=== PATIENT | female | born 1985 | race Caucasian/White ===

== ENCOUNTER 2017-09-29 11:18 | Emergency (ER) | payer BC, SELFPAY ==
[2017-09-29] VITALS (8 sets, daily range): BP systolic 116–143; BP diastolic 81–89; PULSE 60–83; RESP 15–16; TEMP 36.6–37; O2SAT 96–100
--- NOTE | 2017-09-29 11:36 | DI.REPORT_ITS ---
SYMPTOM/DIAGNOSIS: VAGINAL BLEEDING, PAIN PELVIC ULTRASOUND: Transabdominal and transvaginal examination was performed. The uterus measures 8.3 cm. long by 3.7 cm. AP by 6.0 cm. transverse. The endometrial stripe is within normal limits at .5 cm. No myometrial mass is present. The left ovary measures 2.8 by 1.9 by 2.1 cm. Small follicular cysts are seen. There is normal blood flow to the left ovary. No evidence of a solid renal mass or torsion is seen. The right ovary is normal in size with follicular cysts. No suspicious ovarian cyst, solid mass or torsion is present. There is normal blood flow seen. There is a right ovarian cyst present. No significant free fluid is seen in the pelvis. No evidence of hydronephrosis is identified. The kidneys are normal in size. No solid renal mass is present. IMPRESSION: Right ovarian cyst. Otherwise negative examination.
--- NOTE | 2017-09-29 11:39 | ED.GENADUL ---
Disposition Clinical Impression: Vaginal bleeding, Pelvic inflammatory disease Disposition: HOME Condition: Good Instructions: Pelvic Inflammatory Disease (ED) Additional Instructions: Please follow-up with gynecology at [facility] in 5-7 days for recheck. Follow-up with gastroenterology at [facility] as planned. You did not have evidence of persistent , but may have miscarried based on the 2 episodes of vaginal bleeding this month. We will treat you for pelvic infection. Please take antibiotics as prescribed. Return to the emergency department for any acute concerns. I recommend you begin Zantac 150 mg once or twice daily as needed for persistent abdominal discomfort. Prescriptions: Doxycycline [Vibramycin] 100 mg PO BID #20 cap Medical Decision Making - Lab Data Laboratory Results - last 24 hr 09/29/17 09/29/17 09/29/17 11:38 11:40 11:55 WBC RBC Hgb Hct MCV MCH MCHC RDW Plt Count MPV Immature Gran % Neutrophils % Lymphocytes % Monocytes % Eosinophils % Basophils % Absolute Neutrophils Absolute Lymphocytes Absolute Monocytes Absolute Eosinophils Absolute Basophils Sodium Cancelled 133 L Potassium Cancelled 3.7 Chloride Cancelled 100 Carbon Dioxide Cancelled 25.5 Anion Gap Cancelled 7.5 BUN Cancelled 12 Creatinine Cancelled 0.97 Estimated GFR/1.73 m2 Cancelled >= 60.00 Glucose Cancelled 116 H Calcium Cancelled 8.8 Total Bilirubin Cancelled 1.2 H AST Cancelled 40 H ALT Cancelled 65 Alkaline Phosphatase Cancelled 95 Total Protein Cancelled 8.0 Albumin Cancelled 4.0 Lipase Cancelled 101 Beta HCG, Quant < 1 L Urine Color Urine Clarity Urine pH Ur Specific [place] Urine Protein Urine Ketones Urine Blood Urine Nitrite Urine Bilirubin Urine Urobilinogen Ur Leukocyte Esterase Urine RBC Urine WBC Ur Epithelial Cells Urine Crystals Urine Bacteria Urine Casts Urine Mucus Urine Other Ur Culture Indicated? Urine Glucose Ethyl Alcohol < 3.0 Ur Chlamydia DNA Probe Chlamydia/GC DNA Source Urine GC DNA Probe Patient ABO/Rh 09/29/17 09/29/17 09/29/17 11:55 11:55 12:18 WBC 9.56 RBC 4.72 Hgb 14.9 Hct 43.2 MCV 91.5 MCH 31.6 MCHC 34.5 RDW 13.6 Plt Count 232 MPV 10.6 Immature Gran % 0.2 Neutrophils % 64.3 Lymphocytes % 25.8 Monocytes % 9.0 Eosinophils % 0.2 Basophils % 0.5 Absolute Neutrophils 6.14 Absolute Lymphocytes 2.47 Absolute Monocytes 0.86 H Absolute Eosinophils 0.02 Absolute Basophils 0.05 Sodium Potassium Chloride Carbon Dioxide Anion Gap BUN Creatinine Estimated GFR/1.73 m2 Glucose Calcium Total Bilirubin AST ALT Alkaline Phosphatase Total Protein Albumin Lipase Beta HCG, Quant Urine Color Urine Clarity Urine pH Ur Specific [place] Urine Protein Urine Ketones Urine Blood Urine Nitrite Urine Bilirubin Urine Urobilinogen Ur Leukocyte Esterase Urine RBC Urine WBC Ur Epithelial Cells Urine Crystals Urine Bacteria Urine Casts Urine Mucus Urine Other Ur Culture Indicated? Urine Glucose Ethyl Alcohol Ur Chlamydia DNA Probe Cancelled Chlamydia/GC DNA Source Cancelled Urine GC DNA Probe Cancelled Patient ABO/Rh A Positive 09/29/17 12:50 WBC RBC Hgb Hct MCV MCH MCHC RDW Plt Count MPV Immature Gran % Neutrophils % Lymphocytes % Monocytes % Eosinophils % Basophils % Absolute Neutrophils Absolute Lymphocytes Absolute Monocytes Absolute Eosinophils Absolute Basophils Sodium Potassium Chloride Carbon Dioxide Anion Gap BUN Creatinine Estimated GFR/1.73 m2 Glucose Calcium Total Bilirubin AST ALT Alkaline Phosphatase Total Protein Albumin Lipase Beta HCG, Quant Urine Color Yellow Urine Clarity Clear Urine pH 7.0 Ur Specific [place] 1.015 Urine Protein Negative Urine Ketones Negative Urine Blood Moderate H Urine Nitrite Negative Urine Bilirubin Negative Urine Urobilinogen 0.2 Ur Leukocyte Esterase Small H Urine RBC 0-2 Urine WBC 3-5 Ur Epithelial Cells Moderate Urine Crystals Negative Urine Bacteria Few Urine Casts Negative Urine Mucus Negative Urine Other Moderate trichomonas Ur Culture Indicated? No Urine Glucose Negative Ethyl Alcohol Ur Chlamydia DNA Probe Chlamydia/GC DNA Source Urine GC DNA Probe Patient ABO/Rh Results reviewed for labs ordered during visit: Yes - Radiology Data Radiology results: report reviewed, image reviewed - Medical Decision Making 32-year-old female presents with vaginal bleeding with associated abdominal pain. She has history of polysubstance abuse including recent use of crack cocaine, no current IV use. She states that she had a positive test 2 months ago, profuse vaginal bleeding 2 weeks ago for 2 days that resolved, now with dyspareunia, abdominal pain, recurrent vaginal bleeding. She is afebrile with normal pulse and blood pressure. Exam reveals dark blood in vaginal vault, tenderness in the right adnexa. There is diagnosis includes miscarriage, ectopic , PID, endometritis. Patient had IV access established, referred for laboratory testing and pelvic ultrasound. Sodium 133, potassium 3.7, chloride 100, bicarb 25, BUN 12, creatinine 0.9, AST 40, ALT 65, lipase 101, white blood cell count 9, hematocrit 43, platelets 232. Beta hCG less than 1. Blood type A+. Ultrasound with a left ovarian cyst, otherwise unremarkable. Patient's pain improved following Protonix and Toradol. Discussed case with on-call obstetrics, Dr. Holland. He agrees with completed is most likely diagnosis. 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 I do feel she has a component of gastritis, have her begin [id number] Zantac to be used as needed. Discussed home management as well as follow-up and return precautions with the patient prior to discharge. 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 Now presents with severe, sharp, nonradiating anterior abdominal pain last night was associated with profuse recurrent vaginal bleeding this morning. She will relate that she has plans for outpatient colonoscopy at [facility] for question of IBD. She has not had any recent rectal bleeding. No recent fever. She denies trauma. She states that she has continued continue to use crack cocaine, marijuana, alcohol, as well as continuing her prescribed buprenorphine. She reports dyspareunia and foul-smelling vaginal discharge over weeks time as well. - Related Data Levothyroxine [Levothroid] 75 mcg PO DAILY #90 tab-cap 09/27/15 Albuterol [Proair Hfa] 2 puff IH PRN PRN 02/11/16 Buprenorphine HCl/Naloxone HCl [Suboxone 12 mg-3 mg Sl Film] 16 mg SL DAILY 07/24/17 Polyethylene Glycol 3350 [Miralax] 17 g PO PRN #255 gm 08/23/17 Doxycycline [Vibramycin] 100 mg PO BID #20 cap 09/29/17 Allergies Allergy/AdvReac Type Severity Reaction Status Date / Time bupropion HCl Allergy Mild unknown Unverified 09/29/17 11:33 [From Wellbutrin] duloxetine HCl Allergy Mild unknown Unverified 09/29/17 11:33 [From Cymbalta] phenolphthalein [From Ex-Lax] Allergy Unknown SEIZURES Unverified 09/29/17 11:33 [email or web address] tartrate Allergy seizure Unverified 09/29/17 11:33 [From Chantix] ukn antidepression med Allergy Uncoded 09/29/17 11:33 Review of Systems Other: 8 systems reviewed, otherwise negative Past Medical History - Past Medical History Medical history: asthma, GERD Hypothyroidism, hepatitis C, Hodgkin's disease Surgical history: non-contributory - Social History Alcohol use: occasionally Drug use: other (Previous use of heroin and cocaine) General Exam - General Limitations: no limitations General appearance: alert, in no apparent distress - Head Head exam: Present: atraumatic, normocephalic - Eye Eye exam: Present: PERRL, EOMI - ENT ENT exam: Present: normal exam - Respiratory Respiratory exam: Present: normal lung sounds bilaterally. Absent: respiratory distress - Cardiovascular Cardiovascular Exam: Present: regular rate, normal rhythm - GI/Abdominal GI/Abdominal exam: Present: soft, tenderness. Absent: guarding, rebound - By manual exam: Present: adnexal tenderness, other (Dark blood in vaginal vault, unable to visualize cervix, on bimanual exam there is significant right adnexal tenderness.) - Extremities Exam Extremities exam: Present: normal inspection, full ROM, normal capillary refill - Back Exam Back exam: Present: normal inspection - Neurological Exam Neurological exam: Present: alert, oriented X3 - Psychiatric Psychiatric exam: Present: normal affect, normal mood - Skin Skin exam: Present: warm, dry, intact Course Vital Signs - 24 hr 09/29/17 11:23 Temperature 36.6 C Pulse 83 Respiratory 15 Rate Blood Pressure 143/89 Pulse Oximetry 98
--- NOTE | 2017-09-29 11:42 | ED.GENADUL_ITS ---
Disposition Clinical Impression: Vaginal bleeding, Pelvic inflammatory disease Disposition: HOME Condition: Good Instructions: Pelvic Inflammatory Disease (ED) Additional Instructions: Please follow-up with gynecology at [facility] in 5-7 days for recheck. Follow- up with gastroenterology at [facility] as planned. You did not have evidence of persistent , but may have miscarried based on the 2 episodes of vaginal bleeding this month. We will treat you for pelvic infection. Please take antibiotics as prescribed. Return to the emergency department for any acute concerns. I recommend you begin Zantac 150 mg once or twice daily as needed for persistent abdominal discomfort. Prescriptions: Doxycycline [Vibramycin] 100 mg PO BID #20 cap Medical Decision Making - Lab Data Laboratory Results - last 24 hr 09/29/17 09/29/17 09/29/17 11:38 11:40 11:55 WBC RBC Hgb Hct MCV MCH MCHC RDW Plt Count MPV Immature Gran % Neutrophils % Lymphocytes % Monocytes % Eosinophils % Basophils % Absolute Neutrophils Absolute Lymphocytes Absolute Monocytes Absolute Eosinophils Absolute Basophils Sodium Cancelled 133 L Potassium Cancelled 3.7 Chloride Cancelled 100 Carbon Dioxide Cancelled 25.5 Anion Gap Cancelled 7.5 BUN Cancelled 12 Creatinine Cancelled 0.97 Estimated GFR/1.73 m2 Cancelled >= 60.00 Glucose Cancelled 116 H Calcium Cancelled 8.8 Total Bilirubin Cancelled 1.2 H AST Cancelled 40 H ALT Cancelled 65 Alkaline Phosphatase Cancelled 95 Total Protein Cancelled 8.0 Albumin Cancelled 4.0 Lipase Cancelled 101 Beta HCG, Quant < 1 L Urine Color Urine Clarity Urine pH Ur Specific [place] Urine Protein Urine Ketones Urine Blood Urine Nitrite Urine Bilirubin Urine Urobilinogen Ur Leukocyte Esterase Urine RBC Urine WBC Ur Epithelial Cells Urine Crystals Urine Bacteria Urine Casts Urine Mucus Urine Other Ur Culture Indicated? Urine Glucose Ethyl Alcohol < 3.0 Ur Chlamydia DNA Probe Chlamydia/GC DNA Source Urine GC DNA Probe Patient ABO/Rh 09/29/17 09/29/17 09/29/17 11:55 11:55 12:18 WBC 9.56 RBC 4.72 Hgb 14.9 Hct 43.2 MCV 91.5 MCH 31.6 MCHC 34.5 RDW 13.6 Plt Count 232 MPV 10.6 Immature Gran % 0.2 Neutrophils % 64.3 Lymphocytes % 25.8 Monocytes % 9.0 Eosinophils % 0.2 Basophils % 0.5 Absolute Neutrophils 6.14 Absolute Lymphocytes 2.47 Absolute Monocytes 0.86 H Absolute Eosinophils 0.02 Absolute Basophils 0.05 Sodium Potassium Chloride Carbon Dioxide Anion Gap BUN Creatinine Estimated GFR/1.73 m2 Glucose Calcium Total Bilirubin AST ALT Alkaline Phosphatase Total Protein Albumin Lipase Beta HCG, Quant Urine Color Urine Clarity Urine pH Ur Specific [place] Urine Protein Urine Ketones Urine Blood Urine Nitrite Urine Bilirubin Urine Urobilinogen Ur Leukocyte Esterase Urine RBC Urine WBC Ur Epithelial Cells Urine Crystals Urine Bacteria Urine Casts Urine Mucus Urine Other Ur Culture Indicated? Urine Glucose Ethyl Alcohol Ur Chlamydia DNA Probe Cancelled Chlamydia/GC DNA Source Cancelled Urine GC DNA Probe Cancelled Patient ABO/Rh A Positive 09/29/17 12:50 WBC RBC Hgb Hct MCV MCH MCHC RDW Plt Count MPV Immature Gran % Neutrophils % Lymphocytes % Monocytes % Eosinophils % Basophils % Absolute Neutrophils Absolute Lymphocytes Absolute Monocytes Absolute Eosinophils Absolute Basophils Sodium Potassium Chloride Carbon Dioxide Anion Gap BUN Creatinine Estimated GFR/1.73 m2 Glucose Calcium Total Bilirubin AST ALT Alkaline Phosphatase Total Protein Albumin Lipase Beta HCG, Quant Urine Color Yellow Urine Clarity Clear Urine pH 7.0 Ur Specific [place] 1.015 Urine Protein Negative Urine Ketones Negative Urine Blood Moderate H Urine Nitrite Negative Urine Bilirubin Negative Urine Urobilinogen 0.2 Ur Leukocyte Esterase Small H Urine RBC 0-2 Urine WBC 3-5 Ur Epithelial Cells Moderate Urine Crystals Negative Urine Bacteria Few Urine Casts Negative Urine Mucus Negative Urine Other Moderate trichomonas Ur Culture Indicated? No Urine Glucose Negative Ethyl Alcohol Ur Chlamydia DNA Probe Chlamydia/GC DNA Source Urine GC DNA Probe Patient ABO/Rh Results reviewed for labs ordered during visit: Yes - Radiology Data Radiology results: report reviewed, image reviewed - Medical Decision Making 32-year-old female presents with vaginal bleeding with associated abdominal pain. She has history of polysubstance abuse including recent use of crack cocaine, no current IV use. She states that she had a positive test 2 months ago, profuse vaginal bleeding 2 weeks ago for 2 days that resolved, now with dyspareunia, abdominal pain, recurrent vaginal bleeding. She is afebrile with normal pulse and blood pressure. Exam reveals dark blood in vaginal vault, tenderness in the right adnexa. There is diagnosis includes miscarriage, ectopic , PID, endometritis. Patient had IV access established, referred for laboratory testing and pelvic ultrasound. Sodium 133, potassium 3.7, chloride 100, bicarb 25, BUN 12, creatinine 0.9, AST 40, ALT 65, lipase 101, white blood cell count 9, hematocrit 43, platelets 232. Beta hCG less than 1. Blood type A+. Ultrasound with a left ovarian cyst, otherwise unremarkable. Patient's pain improved following Protonix and Toradol. Discussed case with on-call obstetrics, Dr. Holland. He agrees with completed is most likely diagnosis. 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 I do feel she has a component of gastritis, have her begin [id number] Zantac to be used as needed. Discussed home management as well as follow-up and return precautions with the patient prior to discharge. 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 Now presents with severe, sharp, nonradiating anterior abdominal pain last night was associated with profuse recurrent vaginal bleeding this morning. She will relate that she has plans for outpatient colonoscopy at [facility] for question of IBD. She has not had any recent rectal bleeding. No recent fever. She denies trauma. She states that she has continued continue to use crack cocaine, marijuana, alcohol, as well as continuing her prescribed buprenorphine. She reports dyspareunia and foul-smelling vaginal discharge over weeks time as well. - Related Data Levothyroxine [Levothroid] 75 mcg PO DAILY #90 tab-cap 09/27/15 Albuterol [Proair Hfa] 2 puff IH PRN PRN 02/11/16 Buprenorphine HCl/Naloxone HCl [Suboxone 12 mg-3 mg Sl Film] 16 mg SL DAILY Polyethylene Glycol 3350 [Miralax] 17 g PO PRN #255 gm 08/23/17 Doxycycline [Vibramycin] 100 mg PO BID #20 cap 09/29/17 Allergies Allergy/AdvReac Type Severity Reaction Status Date / Time bupropion HCl Allergy Mild unknown Unverified 09/29/17 11:33 [From Wellbutrin] duloxetine HCl Allergy Mild unknown Unverified 09/29/17 11:33 [From Cymbalta] phenolphthalein [From Ex-Lax] Allergy Unknown SEIZURES Unverified 09/29/17 11:33 varenicline tartrate Allergy seizure Unverified 09/29/17 11:33 [From Chantix] ukn antidepression med Allergy Uncoded 09/29/17 11:33 Review of Systems Other: 8 systems reviewed, otherwise negative Past Medical History - Past Medical History Medical history: asthma, GERD Hypothyroidism, hepatitis C, Hodgkin's disease Surgical history: non-contributory - Social History Alcohol use: occasionally Drug use: other (Previous use of heroin and cocaine) General Exam - General Limitations: no limitations General appearance: alert, in no apparent distress - Head Head exam: Present: atraumatic, normocephalic - Eye Eye exam: Present: PERRL, EOMI - ENT ENT exam: Present: normal exam - Respiratory Respiratory exam: Present: normal lung sounds bilaterally. Absent: respiratory distress - Cardiovascular Cardiovascular Exam: Present: regular rate, normal rhythm - GI/Abdominal GI/Abdominal exam: Present: soft, tenderness. Absent: guarding, rebound - By manual exam: Present: adnexal tenderness, other (Dark blood in vaginal vault , unable to visualize cervix, on bimanual exam there is significant right adnexal tenderness.) - Extremities Exam Extremities exam: Present: normal inspection, full ROM, normal capillary refill - Back Exam Back exam: Present: normal inspection - Neurological Exam Neurological exam: Present: alert, oriented X3 - Psychiatric Psychiatric exam: Present: normal affect, normal mood - Skin Skin exam: Present: warm, dry, intact Course Vital Signs - 24 hr 09/29/17 11:23 Temperature 36.6 C Pulse 83 Respiratory 15 Rate Blood Pressure 143/89 Pulse Oximetry 98
[2017-09-29 12:12] LABS: Abs Immature Grans 0.02 k/cumm (0.0-0.09); Absolute Basophil Count 0.05 k/cumm (0.0-0.2); Absolute Eosinophil Count 0.02 k/cumm (0.0-0.7); Absolute Lymphocyte Count 2.47 k/cumm (1.2-3.4); Absolute Monocyte Count 0.86 k/cumm (0.11-0.7); Absolute Neutrophil Count 6.14 k/cumm (1.2-6.7); Basophils % 0.5; Eosinophils % 0.2; HCT 43.2 % (36.0-46.0); HGB 14.9 g/dL (12.0-15.5); Immature Grans % 0.2; Lymphocytes % 25.8; Mean Corp. HGB Concentration 34.5 g/dL (32.0-36.0); Mean Corpuscular Hemoglobin 31.6 pg (27.0-33.0); Mean Corpuscular Volume 91.5 fL (80-95); Mean Platelet Volume 10.6 fL (8.0-11.0); Neutrophils % 64.3; Platelet Count 232 x1000/uL (130-400); RBC 4.72 m/cumm (4.00-5.20); RBC Distribution Width 13.6 % (11.7-14.6); White Blood Cell Count 9.56 k/cumm (4.4-10.8)
[2017-09-29] MEDS: Pantoprazole 40 MG VIAL IVP (12:25)
[2017-09-29] MEDS: Normal Saline 1,000 ML 1000 ML IV (12:25)
[2017-09-29 12:31] LABS: ALT 65 U/L (12-78); AST 40 U/L (15-37); Alkaline Phosphatase 95 U/L (46-116); Anion Gap 7.5 mmol/L (3-11); BUN 12 mg/dL (7-18); Bilirubin, Total 1.2 mg/dL (0.2-1.0); CO2 25.5 mmol/L (21.0-32.0); CREATININE 0.97 mg/dL (0.55-1.02); Calcium 8.8 mg/dL (8.5-10.1); Chloride 100 mmol/L (98-107); Glucose 116 mg/dL (70-100); Lipase 101 U/L (73-393); Potassium 3.7 mmol/L (3.5-5.1); Sodium 133 mmol/L (136-145)
[2017-09-29 12:45] LABS: ETHANOL BLOOD < 3.0 mg/dL (<3)
[2017-09-29 12:55] LABS: HCG Quant, Pregnancy < 1 mIU/mL (1-3)
[2017-09-29 13:10] LABS: Bilirubin Negative (Negative); Blood Moderate (Negative); Clarity Clear; Glucose Negative (Negative); Ketones Negative (Negative); Leukocyte Esterase Small (Negative); Nitrite Negative (Negative); Specific Gravity 1.015 (1.005-1.025); Urobilinogen 0.2 EU/dL (Up TO 0.2)
[2017-09-29 13:20] LABS: Epithelial Cells Moderate HPF (Negative); RBC 0-2 (0-2)
[2017-09-29 13:21] LABS: Bacteria Few HPF (Negative); C & S Indicated? No; Casts Negative LPF (Negative); Crystals Negative HPF (Negative); Mucus Negative (Negative)
[2017-09-29 13:29] LABS: *AMPHETAMINES SCREEN URINE Negative (Negative); *BARBITURATES SCREEN URINE Negative (Negative); *BENZODIAZEPINES SCREEN URINE Negative (Negative); Cannabinoids THC POSITIVE (Negative); Cocaine Screen,Urine POSITIVE (Negative); METHADONE URINE SCREEN Negative (Negative); OPIATES URINE SCREEN Negative (Negative)
[2017-09-29 13:30] LABS: Tricyclic Antidepressants Negative (Negative)
[2017-09-29] MEDS: Doxycycline Hyclate 100 MG CAP PO (13:34)
--- NOTE | 2017-09-29 13:36 | DI.VRAD_ITS ---
EXAM: US Pelvis Complete, Transabdominal CLINICAL HISTORY: 32 years old, female; Pain; Other: Bleeding 2 months status post last menstrual period TECHNIQUE: Real-time transabdominal pelvic ultrasound (complete) with image documentation. COMPARISON: No relevant prior studies available. FINDINGS: Uterus/cervix: Uterus measures 6.7 x 3.9 x 5.1 cm. Endometrial stripe 10 mm. No myometrial mass. Right ovary: Right ovary measures 2.2 x 8.7 x 2.9 cm with an approximate 3 cm cyst. Normal blood flow. Left ovary: Left ovary measures 2.8 x 1.7 x 2.8 cm. Normal blood flow. Free fluid: No significant free fluid. IMPRESSION: Right ovarian cyst. No specific etiology identified for the patient's symptoms. EXAM: US Pelvis, Transvaginal CLINICAL HISTORY: 32 years old, female; Pain; Other: Bleeding 2 months status post last menstrual period TECHNIQUE: Real-time transvaginal pelvic ultrasound (complete) with image documentation. Transvaginal imaging was used for better evaluation of the endometrium and adnexa. COMPARISON: No relevant prior studies available. FINDINGS: Uterus/cervix: Uterus measures 6.7 x 3.9 x 5.1 cm. Endometrial stripe 10 mm. No myometrial mass. Right ovary: Right ovary measures 2.2 x 8.7 x 2.9 cm with an approximate 3 cm cyst. Normal blood flow. Left ovary: Left ovary measures 2.8 x 1.7 x 2.8 cm. Normal blood flow. Free fluid: No significant free fluid. IMPRESSION: Right ovarian cyst. No specific etiology identified for the patient's symptoms. EXAM: US Retroperitoneal , Renal CLINICAL HISTORY: 32 years old, female; Pain; Other: Bleeding 2 months status post last menstrual period TECHNIQUE: Real-time ultrasound of the kidneys with image documentation. COMPARISON: US - PELVIS TRANSVAG 04/09/2013 7:39 PM FINDINGS: Right kidney measures 10 x 5.7 x 6.1 cm. Left kidney measures 11.6 x 4.8 x 5 cm. No hydronephrosis or renal mass identified. IMPRESSION: Unremarkable appearing kidneys. Dictated and Authenticated by: Wale Garcia MD. Ordering:KASH BOWMAN MD
[2017-09-29] MEDS: Ketorolac 30 MG/ML VIAL IVP (13:41)
[2017-09-29] MEDS: cefTRIAXone 500 MG VIAL IV (13:43)
[2017-10-01 13:55] LABS: Chlamydia Result Negative; GC Result Negative; Specimen Description CERVICAL
== END 2017-09-29 14:19 | disposition home or self-care (01) ==
PROVIDERS: Emergency Provider Emergency Medicine; PCP Nurse Practitioner Family
DX: N93.9 Abnormal uterine and vaginal bleeding, unspecified (principal); B96.89 Other specified bacterial agents as the cause of diseases classified elsewhere; A59.09 Other urogenital trichomoniasis
CPT/HCPCS: 36415; 80053; 80307; 83690; 86900; 86901; 87491; 87591; 96361; 96374; 96375; 99284; 76830; 76856; 80320; 81003; 81015; 84702; 85025; 87480; 87510; 87660; J0696; J1885

== ENCOUNTER 2017-11-23 12:03 | Emergency (ER) | payer BC, SELFPAY ==
[2017-11-23 12:23] VITALS: BP 112/79; PULSE 76; RESP 14; TEMP 36.8; O2SAT 97
[2017-11-23] MEDS: Cephalexin 500 MG CAP PO (13:52)
--- NOTE | 2017-11-23 14:05 | W.ED.GENAD ---
Discharge Plan Disposition Patient Disposition: HOME Condition: Stable Discharge Details Chief Complaint: Laceration Clinical Impression: Laceration of right hand Primary Care Provider: Edilia Gabriel ED Provider: Dinesh Fernandez Home Meds and New Rx's Prescriptions: New cephalexin 500 mg tablet 500 mg PO QID Qty: 12 RF: 0 Continue levothyroxine 75 MCG tablet 75 mcg PO DAILY Qty: 90 RF: 1 polyethylene glycol 3350 [Miralax] 17 GM powder in packet 17 g PO PRN Qty: 255 RF: 0 albuterol sulfate [ProAir HFA] 200 PUFF HFA aerosol inhaler 2 puff Inhalation PRN PRNRF: 0 buprenorphine-naloxone [Suboxone] 1 EACH film 16 mg Sublingual DAILY RF: 0 Discontinued doxycycline hyclate 100 MG capsule 100 mg PO BID Qty: 20 RF: 0 Discharge Instructions Instructions: Laceration (ED) Additional Instructions: Watch your laceration very closely for any signs of infection and return immediately if these occur. Otherwise keep your wound clean and dry and to return to the emergency department in 7 days for suture removal. Referrals: [facility] Emergency Dept. [Outside] - 1 week Discharge Data Discharge Date/Time-TO BE ENTERED AT DEPARTURE: 11/23/17 14:12 Medical Decision Making Patient reports actually cutting her hand with a glass while washing it. This injury occurred greater than 12 hours prior to arrival patient has right hand laceration 1.5 cm, dorsal aspect of hand above the distal end of the fifth metacarpal. Had thorough discussion with patient in regards to risk versus benefit of wound closure after thorough washout. After full discussion patient understands risks and gave verbal consent for wound closure. 2 mL's 1% lidocaine. Copious irrigation and wound visualized to base in bloodless field and no foreign bodies and no deep tissue involvement 2 4-0 Ethilon sutures simple interrupted. bacitracin and sterile gauze. Patient to return for any new or worsening symptoms. Patient was placed upon Keflex 4 times daily for 3 days. After discussion of diagnosis and plan of care patient has no further needs, questions, or concerns and states clear understanding to return to the emergency department for any worsening symptoms. HPI General Mode of arrival: ambulatory. Date/Time Provider Initiated Documentation: 11/23/17 12:49. Limitations to Documentation: no limitations. Information obtained by: patient and RN notes reviewed. History of Present Illness 32 year old F presents to the emergency department with the chief complaint of hand laceration, described as mild, with intensity rated at 6. Quality is described as aching, and is localized to the right and upper extremity. Patient started experiencing this hour(s) (14) and it has been constant. No relieving factors improve symptom(s), No exacerbating factors reported . Patient notes no other symptoms.. Patient did receive the following treatments prior to arrival, none Related Data Home Medications Medication Instructions Recorded Confirmed levothyroxine 75 mcg PO DAILY #90 tab-cap 09/27/15 albuterol sulfate [ProAir HFA] 2 puff INHALATION PRN PRN 02/11/16 09/29/17 buprenorphine-naloxone [Suboxone] 16 mg SUBLINGUAL DAILY 07/24/17 09/29/17 polyethylene glycol 3350 [Miralax] 17 g PO PRN #255 gm 08/23/17 09/29/17 cephalexin 500 mg PO QID #12 tab 11/23/17 Previous Rx's Medication Instructions Recorded cephalexin 500 mg PO QID #12 tab 11/23/17 Allergies Allergy/AdvReac Type Severity Reaction Status Date / Time bupropion HCl Allergy Mild unknown Unverified 11/23/17 12:32 [From Wellbutrin] duloxetine HCl Allergy Mild unknown Unverified 11/23/17 12:32 [From Cymbalta] phenolphthalein [From Ex-Lax] Allergy Unknown SEIZURES Unverified 11/23/17 12:32 varenicline tartrate Allergy seizure Unverified 11/23/17 12:32 [From Chantix] Penicillins AdvReac Intermediate vomiting/pa Unverified 11/23/17 12:33 in ukn antidepression med Allergy Uncoded 11/23/17 12:32 General Stated Complaint: Laceration JERMAIN: 4 Review of Systems Cardiovascular Denies syncope and Denies lightheadedness Musculoskeletal Denies deformity, Denies limited range of motion and Denies numbness Integumentary/Breasts Reports as per HPI Neurologic Denies syncope and Denies numbness [facility] Medical History Abdominal pain Anxiety state Cervical intraepithelial neoplasia Chlamydia infection Constipation Depression Dyspepsia Elevated white blood cell count Fracture of finger of left hand Frequent headaches GERD (gastroesophageal reflux disease) Hemorrhoids Hepatitis C Herpes simplex Hodgkins disease Hypothyroidism Kidney stone Left foot pain Peripheral neuropathy Recurrent UTI Shingles Tobacco use Tubular adenoma of colon Social History Smoking/Tobacco Use Status: Current every day Surgical History lateral sphincterotomy (02/11/16) Exam Const General: cooperative and no acute distress Orientation: alert, awake and oriented x3 Limitations: mental status not altered Resp Effort & Inspection: normal respiratory effort and able to speak in complete sentences Cardio Rate: regular rate Rhythm: regular rhythm Neuro General: alert, awake, oriented x3, gait normal, tone normal, moves all extremities, normal light touch, pain and propioception and no focal motor deficits Motor: no movement abnormalities noted Sensory Exam: no sensory deficits noted Extrem General: full ROM, normal capillary refill and normal exam except as noted Right upper extremity: wrist Details: normal to inspection and hand Details: normal capillary refill, neuromotor exam normal, neurosensory exam normal, tendon exam normal and laceration (1.5cm laceration to dorsal aspect of hand corresponding with the distal end of fifth metatarsal) Course Vital Signs Temperature 36.8 C 11/23/17 12:23 Pulse 76 11/23/17 12:23 Respiratory Rate 14 11/23/17 12:23 Blood Pressure 112/79 11/23/17 12:23 Pulse Oximetry 97 11/23/17 12:23 Temperature 36.8 C 11/23/17 12:23 Temperature Source Skin 11/23/17 12:23 Pulse 76 11/23/17 12:23 Respiratory Rate 14 11/23/17 12:23 Respiratory Effort 11/23/17 13:24 Blood Pressure 112/79 11/23/17 12:23 Blood Pressure Position Sitting 11/23/17 12:23 Pulse Oximetry 97 11/23/17 12:23 Oxygen Delivery Method Room Air 11/23/17 12:23 Oxygen Flow Rate 0 11/23/17 12:23 Pain Level 6 11/23/17 12:23
--- NOTE | 2017-11-23 14:10 | ED.GENADUL_ITS ---
Discharge Plan Disposition Patient Disposition: HOME Condition: Stable Discharge Details Chief Complaint: Laceration Clinical Impression: Laceration of right hand Primary Care Provider: Edilia Gabriel ED Provider: Dinesh Fernandez Home Meds and New Rx's Prescriptions: New cephalexin 500 mg tablet 500 mg PO QID Qty: 12 RF: 0 Continue levothyroxine 75 MCG tablet 75 mcg PO DAILY Qty: 90 RF: 1 polyethylene glycol 3350 [Miralax] 17 GM powder in packet 17 g PO PRN Qty: 255 RF: 0 albuterol sulfate [ProAir HFA] 200 PUFF HFA aerosol inhaler 2 puff Inhalation PRN PRNRF: 0 buprenorphine-naloxone [Suboxone] 1 EACH film 16 mg Sublingual DAILY RF: 0 Discontinued doxycycline hyclate 100 MG capsule 100 mg PO BID Qty: 20 RF: 0 Discharge Instructions Instructions: Laceration (ED) Additional Instructions: Watch your laceration very closely for any signs of infection and return immediately if these occur. Otherwise keep your wound clean and dry and to return to the emergency department in 7 days for suture removal. Referrals: [facility] Emergency Dept. [Outside] - 1 week Discharge Data Discharge Date/Time-TO BE ENTERED AT DEPARTURE: 11/23/17 14:12 Medical Decision Making Patient reports actually cutting her hand with a glass while washing it. This injury occurred greater than 12 hours prior to arrival patient has right hand laceration 1.5 cm, dorsal aspect of hand above the distal end of the fifth metacarpal. Had thorough discussion with patient in regards to risk versus benefit of wound closure after thorough washout. After full discussion patient understands risks and gave verbal consent for wound closure. 2 mL's 1% lidocaine. Copious irrigation and wound visualized to base in bloodless field and no foreign bodies and no deep tissue involvement 2 4-0 Ethilon sutures simple interrupted. bacitracin and sterile gauze. Patient to return for any new or worsening symptoms. Patient was placed upon Keflex 4 times daily for 3 days. After discussion of diagnosis and plan of care patient has no further needs, questions, or concerns and states clear understanding to return to the emergency department for any worsening symptoms. HPI General Mode of arrival: ambulatory . Date/Time Provider Initiated Documentation: 11/23/17 12:49 . Limitations to Documentation: no limitations . Information obtained by: patient and RN notes reviewed . History of Present Illness 32 year old F presents to the emergency department with the chief complaint of hand laceration, described as mild, with intensity rated at 6. Quality is described as aching, and is localized to the right and upper extremity. Patient started experiencing this hour(s) (14) and it has been constant. No relieving factors improve symptom(s), No exacerbating factors reported . Patient notes no other symptoms.. Patient did receive the following treatments prior to arrival, none Related Data Home Medications Medication Instructions Recorded Confirmed levothyroxine 75 mcg PO DAILY #90 tab-cap 09/27/15 albuterol sulfate [ProAir HFA] 2 puff INHALATION PRN PRN 02/11/16 09/29/17 buprenorphine-naloxone [Suboxone] 16 mg SUBLINGUAL DAILY 07/24/17 09/29/17 polyethylene glycol 3350 [Miralax] 17 g PO PRN #255 gm 08/23/17 09/29/17 cephalexin 500 mg PO QID #12 tab 11/23/17 Previous Rx's Medication Instructions Recorded cephalexin 500 mg PO QID #12 tab 11/23/17 Allergies Allergy/AdvReac Type Severity Reaction Status Date / Time bupropion HCl Allergy Mild unknown Unverified 11/23/17 12:32 [From Wellbutrin] duloxetine HCl Allergy Mild unknown Unverified 11/23/17 12:32 [From Cymbalta] phenolphthalein [From Ex-Lax] Allergy Unknown SEIZURES Unverified 11/23/17 12:32 varenicline tartrate Allergy seizure Unverified 11/23/17 12:32 [From Chantix] Penicillins AdvReac Intermediate vomiting/pa Unverified 11/23/17 12:33 in ukn antidepression med Allergy Uncoded 11/23/17 12:32 General Stated Complaint: Laceration JERMAIN: 4 Review of Systems Cardiovascular Denies syncope and Denies lightheadedness Musculoskeletal Denies deformity, Denies limited range of motion and Denies numbness Integumentary/Breasts Reports as per HPI Neurologic Denies syncope and Denies numbness [facility] Medical History Abdominal pain Anxiety state Cervical intraepithelial neoplasia Chlamydia infection Constipation Depression Dyspepsia Elevated white blood cell count Fracture of finger of left hand Frequent headaches GERD (gastroesophageal reflux disease) Hemorrhoids Hepatitis C Herpes simplex Hodgkins disease Hypothyroidism Kidney stone Left foot pain Peripheral neuropathy Recurrent UTI Shingles Tobacco use Tubular adenoma of colon Social History Smoking/Tobacco Use Status: Current every day Surgical History lateral sphincterotomy (02/11/16) Exam Const General: cooperative and no acute distress Orientation: alert, awake and oriented x3 Limitations: mental status not altered Resp Effort & Inspection: normal respiratory effort and able to speak in complete sentences Cardio Rate: regular rate Rhythm: regular rhythm Neuro General: alert, awake, oriented x3, gait normal, tone normal, moves all extremities, normal light touch, pain and propioception and no focal motor deficits Motor: no movement abnormalities noted Sensory Exam: no sensory deficits noted Extrem General: full ROM, normal capillary refill and normal exam except as noted Right upper extremity: wrist Details: normal to inspection and hand Details: normal capillary refill, neuromotor exam normal, neurosensory exam normal, tendon exam normal and laceration (1.5cm laceration to dorsal aspect of hand corresponding with the distal end of fifth metatarsal) Course Vital Signs Temperature 36.8 C 11/23/17 12:23 Pulse 76 11/23/17 12:23 Respiratory Rate 14 11/23/17 12:23 Blood Pressure 112/79 11/23/17 12:23 Pulse Oximetry 97 11/23/17 12:23 Temperature 36.8 C 11/23/17 12:23 Temperature Source Skin 11/23/17 12:23 Pulse 76 11/23/17 12:23 Respiratory Rate 14 11/23/17 12:23 Respiratory Effort 11/23/17 13:24 Blood Pressure 112/79 11/23/17 12:23 Blood Pressure Position Sitting 11/23/17 12:23 Pulse Oximetry 97 11/23/17 12:23 Oxygen Delivery Method Room Air 11/23/17 12:23 Oxygen Flow Rate 0 11/23/17 12:23 Pain Level 6 11/23/17 12:23
== END 2017-11-23 14:12 | disposition home or self-care (01) ==
PROVIDERS: Emergency Provider Nurse Practitioner Family; PCP Nurse Practitioner Family
DX: S61.411A Laceration without foreign body of right hand, initial encounter (principal); W25.XXXA Contact with sharp glass, initial encounter
CPT/HCPCS: 12001

== ENCOUNTER 2018-09-25 09:56 | Emergency (ER) | payer SELFPAY ==
[2018-09-25 10:03] VITALS: BP 118/82; PULSE 105; RESP 16; TEMP 36.5; O2SAT 97
--- NOTE | 2018-09-25 10:12 | NUR.NOTE ---
Nursing Note: Patient left without being seen. pt states that her mother said that she should be seen at [facility] instead, because that is where her PCP is. Patient states that her mother is going to pick her up and bring her to [facility].
== END 2018-09-25 10:10 ==
LOC: ER 10:38
PROVIDERS: Emergency Provider Physician Assistant; PCP Family Medicine
DX: Z53.21 Procedure and treatment not carried out due to patient leaving prior to being seen by health care provider (principal)

== ENCOUNTER 2021-09-06 22:59 | Emergency (ER) | payer MEDICAID, SELFPAY ==
[2021-09-06 23:05] VITALS: BP 117/84; PULSE 85; RESP 16; TEMP 36.3; O2SAT 94
[2021-09-06 23:18] LABS: Bilirubin Negative (Negative); Blood Moderate (Negative); Clarity Cloudy (Clear); Glucose Negative (Negative); Ketones Negative (Negative); Leukocyte Esterase Moderate (Negative); Nitrite Positive (Negative); Urobilinogen 0.2 EU/dL (Up TO 0.2)
[2021-09-06 23:26] LABS: WBC >50 HPF (0-5)
[2021-09-06 23:27] LABS: C & S Indicated? Yes
[2021-09-06] MEDS: Ketorolac 15 MG/ML VIAL IM (23:30)
[2021-09-06] MEDS: LORazepam 1 MG TAB PO (23:31)
--- NOTE | 2021-09-06 23:55 | ED.GENADUL_ITS ---
Discharge Plan Disposition Patient Disposition: HOME Condition: Improving Discharge Details Clinical Impression: UTI (urinary tract infection) Primary Care Provider: None,None ED Provider: Yair See Home Meds and New Rx's Prescriptions: New cefpodoxime 200 mg tablet 200 mg PO BID 10 Days Qty: 20 0RF Rx Instructions: must administer with a meal/food No Action levothyroxine 75 MCG tablet 75 mcg PO DAILY Qty: 90 Rx Instructions: 1 tab PO daily polyethylene glycol 3350 [Miralax] 17 GM powder in packet 17 g PO PRN Qty: 255 albuterol sulfate [ProAir HFA] 200 PUFF HFA aerosol inhaler 2 puff Inhalation PRN PRN buprenorphine-naloxone [Suboxone] 1 EACH film 16 mg Sublingual DAILY Discharge Instructions Instructions: Urinary Tract Infection in Women (ED) Additional Instructions: Please follow-up with your primary care physician. Please return to the emergency department if you develop any worsening symptoms such as fevers chills nausea vomiting severe back pain severe abdominal pain or other worsening symptoms Medical Decision Making 36-year-old female presents with bilateral flank pain and dysuria urinary frequency over the past 2 days. Believes she may have a UTI. Appears uncomfortable and anxious. Bilateral subjective CVA tenderness. Nonperitoneal. Normotensive nontachycardic afebrile. UA positive for urinary tract infection. Consider likely UTI versus early pyelonephritis. Feeling much better after anti-inflammatory and anxiolysis. Will start on antibiotics given home care instructions and return precautions. HPI General Date/Time Provider Initiated Documentation: 09/06/21 22:59 . HPI Narrative: 36-year-old female presents with abdominal discomfort and flank discomfort as well as dysuria and urinary frequency over the past couple of days. Denies nausea vomiting fevers chills or other systemic symptoms. Believes he may have a UTI. Related Data Home Medications Medication Instructions Recorded Confirmed levothyroxine 75 mcg tablet 75 mcg PO DAILY #90 tab-caps 09/27/15 09/06/21 albuterol sulfate 90 mcg/actuation 2 puff inhalation PRN PRN 02/11/16 09/06/21 aerosol inhaler (ProAir HFA) buprenorphine 12 mg-naloxone 3 mg 16 mg sublingual DAILY 07/24/17 09/06/21 sublingual film (Suboxone) polyethylene glycol 3350 17 gram 17 g PO PRN ##255 08/23/17 09/06/21 oral powder packet (Miralax) cefpodoxime 200 mg tablet 200 mg PO BID 10 days #20 tabs 09/06/21 Previous Rx's Medication Instructions Recorded cefpodoxime 200 mg tablet 200 mg PO BID 10 days #20 tabs 09/06/21 Allergies Allergy/AdvReac Type Severity Reaction Status Date / Time bupropion HCl Allergy Mild unknown Unverified 09/06/21 23:11 [From Wellbutrin] duloxetine HCl Allergy Mild unknown Unverified 09/06/21 23:11 [From Cymbalta] phenolphthalein [From Ex-Lax] Allergy Unknown SEIZURES Unverified 09/06/21 23:11 varenicline tartrate Allergy seizure Unverified 09/06/21 23:11 [From Chantix] Penicillins AdvReac Intermediate vomiting/pa Unverified 09/06/21 23:11 in ukn antidepression med Allergy Uncoded 09/06/21 23:11 General Stated Complaint: Abd Prob JERMAIN: 3 Review of Systems Narrative: Review of Systems Constitutional: negative Eyes: negative ENT: negative Cardiovascular: negative Respiratory: negative Gastrointestinal: negative : Dysuria, urinary frequency, flank pain Musculoskeletal: negative Skin: negative Neurologic: negative Psych: negative PFSH All Active Problems (Updated 09/06/21 @ 23:57 by Yair See MD) UTI (urinary tract infection) (Acute) Medical History (Updated 09/06/21 @ 23:57 by Yair See MD) Abdominal pain Anxiety state Cervical intraepithelial neoplasia Chlamydia infection Constipation Depression Dyspepsia Elevated white blood cell count Fracture of finger of left hand Frequent headaches GERD (gastroesophageal reflux disease) Hemorrhoids Hepatitis C Herpes simplex Hodgkins disease Hypothyroidism Kidney stone Left foot pain Peripheral neuropathy Recurrent UTI Shingles Tobacco use Tubular adenoma of colon Surgical History lateral sphincterotomy (02/11/16) Social History Smoking/Tobacco Use Status: Current every day Tobacco Type: cigarettes Smoking risk assessment performed?: Yes Drug use: Daily Substance use type: marijuana and crack/cocaine Details: suboxone-in a program BLT. Do you feel safe in your relationship?: Yes Exam Narrative Exam Narrative: Physical Examination General: alert, awake, cooperative, anxious and uncomfortable HEENT: normocephalic, atraumatic; PERRL, EOM intact, conjunctiva normal; no nasal discharge; moist mucous membranes, oral and pharyngeal mucosa normal, tolerating secretions Neck: supple, trachea midline; full ROM Chest: normal to inspection Respiratory: normal respiratory effort, speaking in full sentences, clear to auscultation, no wheezing, rales or rhonchi Cardiac: regular rate, regular rhythm, S1S2 intact, no murmurs rubs or gallops GI: abdomen soft, non-tender, non-distended; no palpable mass or hepatosplenomegaly; subjective CVA tenderness bilaterally Skin: no lesions, rashes or trauma appreciated Neuro: AAOx3, normal speech, moving all extremities Psych: Psychomotor agitation Course Vital Signs Vital signs: Vital Signs Temperature 36.3 C L 09/06/21 23:05 Pulse 85 09/06/21 23:05 Respiratory Rate 16 09/06/21 23:05 Blood Pressure 117/84 09/06/21 23:05 Pulse Oximetry 94 09/06/21 23:05 Temperature 36.3 C L 09/06/21 23:05 Temperature Source Temporal Artery Scan 09/06/21 23:05 Pulse 85 09/06/21 23:05 Respiratory Rate 16 09/06/21 23:05 Respiratory Effort 09/06/21 23:05 Blood Pressure 117/84 09/06/21 23:05 Blood Pressure Position Sitting 09/06/21 23:05 Pulse Oximetry 94 09/06/21 23:05 Oxygen Delivery Method Room Air 09/06/21 23:05 Oxygen Flow Rate 0 09/06/21 23:05 Pain Level 8 09/06/21 23:05 Lab/Test Results Lab/Test Results: 09/06/21 23:15 Urine - Reflex from Ua Urine Culture - Pending Laboratory Tests Range/Units 09/06/21 23:15 Urine Color (Yellow) Yellow Urine Clarity (Clear) Cloudy Urine pH (5-8) 6.0 Ur Specific [place] (1.005-1.025) 1.020 Urine Protein (Negative) mg/dL 100 H Urine Ketones (Negative) mg/dL Negative Urine Blood (Negative) Moderate H Urine Nitrite (Negative) Positive H Urine Bilirubin (Negative) Negative Urine Urobilinogen (Up TO 0.2) EU/dL 0.2 Ur Leukocyte Esterase (Negative) Moderate H Urine RBC (0-2) HPF Urine WBC (0-5) HPF >50 H Ur Epithelial Cells (Negative) HPF Urine Crystals Not Applicable Urine Bacteria (Negative) HPF Urine Mucus Not Applicable Ur Culture Indicated? Yes Urine Glucose (Negative) mg/dL Negative POC- Test(urine) Negative
[2021-09-07] MEDS: Phenazopyridine 100 MG TAB PO
[2021-09-07] MEDS: Cefpodoxime 200 MG TAB PO (00:05)
[2021-09-07 00:10] VITALS: BP 118/78; PULSE 94; RESP 16; O2SAT 100
== END 2021-09-07 00:27 | disposition home or self-care (01) ==
LOC: ER 09-07 00:32
PROVIDERS: Emergency Provider Emergency Medicine
DX: N39.0 Urinary tract infection, site not specified (principal); B96.20 Unspecified Escherichia coli [E. coli] as the cause of diseases classified elsewhere
CPT/HCPCS: 81025; 87077; 96372; 99284; 81003; 81015; 87086; 87186; 99283; J1885

== ENCOUNTER 2021-10-06 06:15 | Emergency (ER) | payer MEDICAID, SELFPAY ==
[2021-10-06 06:23] VITALS: BP 152/98; PULSE 132; RESP 16; TEMP 36.5; O2SAT 96
--- NOTE | 2021-10-06 06:23 | ED.GENADUL_ITS ---
Discharge Plan Disposition Patient Disposition: STILL A PATIENT Condition: Stable Discharge Details Clinical Impression: RUQ abdominal pain Primary Care Provider: None,None ED Provider: German Michel Meds and New Rx's Prescriptions: No Action levothyroxine 75 MCG tablet 75 mcg PO DAILY Qty: 90 Rx Instructions: 1 tab PO daily polyethylene glycol 3350 [Miralax] 17 GM powder in packet 17 g PO PRN Qty: 255 albuterol sulfate [ProAir HFA] 200 PUFF HFA aerosol inhaler 2 puff Inhalation PRN PRN buprenorphine-naloxone [Suboxone] 1 EACH film 16 mg Sublingual DAILY Medical Decision Making Patient presenting with worsening right upper quadrant abdominal pain with positive Nguyen sign and vomiting. She is tachycardic but very anxious and uncomfortable. She is not febrile. She has had no previous abdominal surgeries. She does have substance abuse history. Suspect this is related to gallbladder disease. IV and laboratory studies ordered. Compazine and ketorolac ordered. Will obtain ultrasound this morning. Patient's laboratory studies significant for elevated white count to 18,000. She has normal hemoglobin, liver function, chemistries, lipase, urine. Urine test is negative. Patient will be signed out to oncoming ED physician pending right upper quadrant ultrasound. Lab Data Lab results reviewed: Yes I reviewed the patient's lab results. HPI General Mode of arrival: ambulatory . Date/Time Provider Initiated Documentation: 10/06/21 06:21 . Limitations to Documentation: no limitations . Information obtained by: patient and RN notes reviewed . HPI Narrative: Patient presents to ED with right upper quadrant abdominal pain that began earlier this morning. She initially thought it was related to constipation. Pain however has remained persistent and localized to the right upper quadrant. Pain is worse with deep breathing but she does not feel short of breath. She has had vomiting but denies nausea. No fever that she is aware of. No chest or upper back pain. No urinary symptoms. Has history of kidney stones but this feels completely different. Did take Percocet prior to coming in and has been using crack cocaine. She is supposed to be going to rehab today. Related Data Home Medications Medication Instructions Recorded Confirmed levothyroxine 75 mcg tablet 75 mcg PO DAILY #90 tab-caps 09/27/15 10/06/21 albuterol sulfate 90 mcg/actuation 2 puff inhalation PRN PRN 02/11/16 10/06/21 aerosol inhaler (ProAir HFA) buprenorphine 12 mg-naloxone 3 mg 16 mg sublingual DAILY 07/24/17 10/06/21 sublingual film (Suboxone) polyethylene glycol 3350 17 gram 17 g PO PRN ##255 08/23/17 10/06/21 oral powder packet (Miralax) Allergies Allergy/AdvReac Type Severity Reaction Status Date / Time bupropion HCl Allergy Mild unknown Unverified 10/06/21 06:31 [From Wellbutrin] duloxetine HCl Allergy Mild unknown Unverified 10/06/21 06:31 [From Cymbalta] phenolphthalein [From Ex-Lax] Allergy Unknown SEIZURES Unverified 10/06/21 06:31 varenicline tartrate Allergy seizure Unverified 10/06/21 06:31 [From Chantix] Penicillins AdvReac Intermediate vomiting/pa Unverified 10/06/21 06:31 in ukn antidepression med Allergy Uncoded 10/06/21 06:31 General JERMAIN: 3 Review of Systems Narrative: 11/18 Review of Systems completed and is negative except as stated above in HPI (Systems reviewed: Const, Eyes, ENT, Resp, CV, GI, , MSK, Skin, Neuro) PFSH All Active Problems (Updated 10/06/21 @ 07:34 by German Michel MD) RUQ abdominal pain (Acute) Recurrent UTI (Acute) Hemorrhoids (Acute) Dyspepsia (Acute) Frequent headaches (Acute) Medical History Cervical intraepithelial neoplasia Depression GERD (gastroesophageal reflux disease) Hepatitis C Herpes simplex Hodgkins disease Hypothyroidism Kidney stone Peripheral neuropathy Shingles Tobacco use Tubular adenoma of colon Surgical History lateral sphincterotomy (02/11/16) Social History Smoking/Tobacco Use Status: Current every day Tobacco Type: cigarettes Smoking risk assessment performed?: Yes Drug use: Daily Substance use type: marijuana and crack/cocaine Details: suboxone-in a program BLT. Do you feel safe in your relationship?: Yes Exam Narrative Exam Narrative: Const: WDWN female, anxious, uncomfortable. HEENT: NC/AT. Normal facial exam. Eyes: Normal conjunctiva and sclera. Neck: Supple. Trachea midline. Lungs: Normal respiratory effort. Lungs are clear. Cor: RRR without murmur/gallop. Good radial pulses. GI: Soft and ND. Tender in the RUQ with positive Nguyen Back: No CVAT Neuro: A+O x 3. Normal speech, mentation, gait. Cranial nerves II - XII grossly intact. No gross motor or sensory deficit. Ext: No C/C/E. Skin: Warm and dry with multiple scabs present.
[2021-10-06 06:37] LABS: Bilirubin Negative (Negative); Blood Negative (Negative); Clarity Clear (Clear); Glucose Negative (Negative); Ketones Negative (Negative); Leukocyte Esterase Negative (Negative); Nitrite Negative (Negative); Urobilinogen 0.2 EU/dL (Up TO 0.2)
[2021-10-06 06:45] LABS: Bacteria Rare HPF (Negative); C & S Indicated? No; Casts 0-2 Hyaline LPF (Negative); Crystals Negative HPF (Negative); Epithelial Cells Many HPF (Negative); Mucus Moderate (Negative); RBC 0-2 HPF (0-2); WBC 0-2 HPF (0-5)
[2021-10-06 06:59] LABS: Abs Immature Grans 0.08 10^3/uL (0.0-0.06); Absolute Basophil Count 0.07 10^3/uL (0.0-0.2); Absolute Eosinophil Count 0.02 10^3/uL (0.0-0.7); Absolute Lymphocyte Count 1.96 10^3/uL (1.2-3.4); Absolute Monocyte Count 1.41 10^3/uL (0.1-0.8); Basophils % 0.4; Eosinophils % 0.1; HCT 41.7 % (36.0-46.0); HGB 14.1 g/dL (11.2-15.7); Immature Grans % 0.4; MCH 30.1 pg (27.0-33.0); MCHC 33.8 % (32.0-36.0); MCV 89 fL (80-95); MPV 9.7 fL (8.0-11.0); Monocytes % 7.9; Neutrophils % 80.2; Platelet Count 293 10^3/uL (130-400); RBC 4.68 10^6/uL (3.93-5.22); RDW 13.5 % (11.7-14.6); RDW-SD 43.9 fL; WBC 17.83 10^3/uL (4.4-10.8)
[2021-10-06] MEDS: Ketorolac 30 MG/ML VIAL IVP (07:07)
[2021-10-06] MEDS: Prochlorperazine 10 MG/2 ML VIAL IVP (07:08)
[2021-10-06] MEDS: Normal Saline 1,000 ML 125 ML IV (07:09)
[2021-10-06 07:22] LABS: ALT 20 U/L (14-59); AST 14 U/L (15-37); Albumin 3.9 g/dL (3.4-5.0); Alkaline Phosphatase 98 U/L (46-116); Anion Gap 6.7 mmol/L (3-11); BUN 14 mg/dL (7-18); Bilirubin, Total 0.6 mg/dL (0.2-1.0); CO2 28.3 mmol/L (21.0-32.0); CREATININE 0.9 mg/dL (0.55-1.02); Calcium 8.8 mg/dL (8.5-10.1); Chloride 102 mmol/L (98-107); Glucose 102 mg/dL (74-106); Lipase 69 U/L (73-393); Potassium 3.7 mmol/L (3.5-5.1); Sodium 137 mmol/L (136-145); Total Protein 8.1 g/dL (6.4-8.2)
--- NOTE | 2021-10-06 07:30 | NUR.NOTE ---
Nursing Note: patient states when she tries to have a BM there is blood and mucus and states episodes of falling over. aware.
[2021-10-06 07:39] LABS: *AMPHETAMINES SCREEN URINE Negative (Negative); *BARBITURATES SCREEN URINE Negative (Negative); *BENZODIAZEPINES SCREEN URINE Negative (Negative); Cannabinoids THC Positive (Negative); Cocaine Screen,Urine Positive (Negative); METHADONE URINE SCREEN Negative (Negative); OPIATES URINE SCREEN Negative (Negative); Tricyclic Antidepressants Negative (Negative)
== END 2021-10-06 07:56 | disposition still patient (30) ==
PROVIDERS: Emergency Medicine; Emergency Provider Physician Assistant
DX: R10.11 Right upper quadrant pain (principal); R00.0 Tachycardia, unspecified; R10.811 Right upper quadrant abdominal tenderness; F17.210 Nicotine dependence, cigarettes, uncomplicated; Z87.442 Personal history of urinary calculi
CPT/HCPCS: 36415; 80053; 80307; 81025; 83690; 96361; 96374; 96375; 99284; 81003; 81015; 83735; 85025; J0780; J1885

== ENCOUNTER 2021-10-06 14:44 | Emergency (ER) | payer MEDICAID, SELFPAY ==
--- NOTE | 2021-10-06 14:45 | DI.US_ITS ---
Exam(s) US ABDOMEN LIMITED EXAM: US ABDOMEN LIMITED CLINICAL HISTORY: RUQ pain, r/o cholecystitis TECHNIQUE: Ultrasound abdomen performed using standard protocol. COMPARISON: None FINDINGS: There is no ascites evident. LIVER: There are 2 focal hyperechoic sys lesions. One is in the left hepatic lobe subcapsular locati on measuring 10 x 10 x 11 millimeters, uniformly hyperechoic and consistent with a benign hemangioma. The other similar appearing uniformly hyperechoic lesion measures 8 x 9 x 9 millimeters and is in t he right hepatic lobe, also consistent with a benign hemangioma. GALLBLADDER/BILIARY: The gallbladder is contracted. No obvious shadowing gallstones within the lumen . The common hepatic duct isnot dilated, measuring 5mm at the level of robson hepatis. PANCREAS: There is no evidence of pancreatic mass nor dilatation of the pancreatic duct. RIGHT KIDNEY:No evidence of solid mass, calculus, nor hydronephrosis. No cortical cysts evident. IMPRESSION: 1. Gallbladder is contracted. No obvious shadowing gallstones within the nondistended gallbladder l umen. There is no pericholecystic fluid. The common hepatic duct is not dilated. 2. Two small benign-appearing uniformly hyperechoic lesions in the liver as described above, consist ent with benign hemangiomas. 3. No other significant focal right upper quadrant ultrasound findings and no ascites evident. DATA REPOSITORY:
== END 2021-10-06 16:41 ==
PROVIDERS: Emergency Provider Physician Assistant
DX: Z53.21 Procedure and treatment not carried out due to patient leaving prior to being seen by health care provider (principal)
CPT/HCPCS: 76705

== ENCOUNTER 2021-10-06 19:28 | Emergency (ER) | payer MEDICAID, SELFPAY ==
[2021-10-06 19:29] VITALS: BP 159/97; PULSE 72; RESP 14; TEMP 36.3; O2SAT 100
[2021-10-06 19:51] LABS: Bilirubin Negative (Negative); Blood Negative (Negative); Clarity Clear (Clear); Glucose Negative (Negative); Ketones Negative (Negative); Leukocyte Esterase Negative (Negative); Nitrite Negative (Negative); Urobilinogen 0.2 EU/dL (Up TO 0.2)
--- NOTE | 2021-10-06 20:45 | DI.CT_ITS ---
Exam(s) CT ABDOMEN PELVIS WO EXAM: CT ABDOMEN PELVIS WO INDICATION: RUQ pain. COMPARISON: CT ABD PELVIS WITH CONTRAST from 07/09/2011 TECHNIQUE: CT examination was performed without contrast administration. FINDINGS: Images obtained through the lung bases are unremarkable. Visualized portions of the liver and splee n appear intact. Visualized portions of the pancreas are unremarkable. Gallbladder and bile ducts are CT normal. Abdominal aorta is of normal diameter. No significant abdominal wall hernia. No significant abdominal or pelvic adenopathy. Adrenals appear normal bilaterally. The kidneys are normal in size and shape. There is no evidence of a renal mass or hydronephrosis, th ere is a tiny nonobstructing left renal calculus . No ureteral dilatation or calcification identified. Urinary bladder is unremarkable in appearance. IMPRESSION: 1-2 millimeter in diameter left lower pole renal calculus, nonobstructing. No other significant find ings.. RADIATION DOSE DELIVERED: 789.27mGy.cm DLP 789.27mGy.cm Total DLP !Error CTDIvol DATA REPOSITORY: All CT scans at this facility are submitted to the National Radiology Data Registry (NRDR) Dose Index Registry (DIR) with the [employer] (ACR). RADIATION OPTIMIZATION: All CT scans at this facility use at least one of these dose optimization te chniques: automated exposure control; mA and/or kV adjustment per patient size (includes targeted exa ms where dose is matched to clinical indication); or iterative reconstruction.
[2021-10-06 21:08] VITALS: TEMP 36.3
[2021-10-06] MEDS: Acetaminophen 325 MG TAB 650 MG PO (21:08)
[2021-10-06 21:40] LABS: Source Nasal/Nares
--- NOTE | 2021-10-06 22:03 | DI.VRAD_ITS ---
PROCEDURE INFORMATION: Exam: CT Abdomen And Pelvis Without Contrast Exam date and time: 10/06/2021 9:44 PM Age: 36 years old Clinical indication: Abdominal pain; Localized; Right upper quadrant (ruq); Additional info: Ruq pain TECHNIQUE: Imaging protocol: Computed tomography of the abdomen and pelvis without contrast. Radiation optimization: All CT scans at this facility use at least one of these dose optimization techniques: automated exposure control; mA and/or kV adjustment per patient size (includes targeted exams where dose is matched to clinical indication); or iterative reconstruction. COMPARISON: US ABDOMEN LIMITED 10/06/2021 3:06 PM FINDINGS: Liver: Normal. No mass. Gallbladder and bile ducts: Contracted No calcified stones. No ductal dilation. Pancreas: Normal. No ductal dilation. Spleen: Normal. No splenomegaly. Adrenal glands: Normal. No mass. Kidneys and ureters: Minimal fullness to the right renal collecting system. Faint left renal calculus in the lower pole. Stomach and bowel: Unremarkable. No obstruction. No mucosal thickening. Appendix: No evidence of appendicitis. Intraperitoneal space: Unremarkable. No free air. No significant fluid collection. Vasculature: Unremarkable. No abdominal aortic aneurysm. Lymph nodes: Unremarkable. No enlarged lymph nodes. Urinary bladder: Unremarkable as visualized. Reproductive: 2 cm left ovarian cyst Bones/joints: Unremarkable. No acute fracture. Soft tissues: Unremarkable. IMPRESSION: Minimal fullness to the right renal collecting system which may represent recently passed calculus Faint left renal calculus Dictated and Authenticated by: Rashard Blum MD. Ordering:JUDSON Grajeda MD
[2021-10-06 22:30] LABS: COVID-19 PCR Negative (Negative)
[2021-10-06 22:38] VITALS: BP 148/87; PULSE 70; RESP 16; O2SAT 98
--- NOTE | 2021-10-07 21:24 | ED.GENADUL_ITS ---
Discharge Plan Disposition Patient Disposition: HOME Condition: Stable Discharge Details Clinical Impression: Ureterolithiasis Primary Care Provider: None,None ED Provider: Nicci Blank Home Meds and New Rx's Prescriptions: Continued levothyroxine 75 MCG tablet 75 mcg PO DAILY Qty: 90 Rx Instructions: 1 tab PO daily polyethylene glycol 3350 [Miralax] 17 GM powder in packet 17 g PO PRN Qty: 255 albuterol sulfate [ProAir HFA] 200 PUFF HFA aerosol inhaler 2 puff Inhalation PRN PRN buprenorphine-naloxone [Suboxone] 1 EACH film 16 mg Sublingual DAILY Label Comments: not taking currently Discharge Instructions Additional Instructions: Ibuprofen and Tylenol as needed for pain Follow-up with your doctor about getting represcribed Suboxone Please return earlier should you have new or worsening complaints I am giving you referral to urology for follow-up you have a recently passed stone in your right ureter This should no longer cause you pain Should you develop fever, chills, or any new or worsening complaints return to the emergency department Discharge Data Discharge Date/Time-TO BE ENTERED AT DEPARTURE: 10/06/21 22:40 Medical Decision Making Patient is alert, oriented, of decisional capacity She has evidence of a recently passed stone per radiology interpretation on CT scan She is refusing lab assessment at this time, she is alert and oriented She tells me that she had blood work drawn earlier today and is refusing additional labs Urinalysis does not show evidence of infection She denies She is resting comfortably at time of reassessment and I see no indication for opiate pain medication for home Referral to urology Return precautions discussed and patient expressed understanding Medical Records Medical records reviewed: Yes I reviewed the patient's medical records. Lab Data Lab results reviewed: Yes I reviewed the patient's lab results. HPI General Date/Time Provider Initiated Documentation: 10/06/21 20:37 . HPI Narrative: This 36-year-old female with history of hepatitis C, Hodgkin's lymphoma, hypothyroidism, kidney stone, polysubstance abuse presents with report of right upper quadrant pain throughout the day. She been evaluated and lost prior to treatment on several occasions throughout the day. Presents secondary to persistent pain that is not worsening. Denies any chest pain or shortness of breath. Has been intermittently nauseous without vomiting. Denies chance of . Denies known exacerbating or alleviating factors. Describes the pain as sharp. Related Data Home Medications Medication Instructions Recorded Confirmed levothyroxine 75 mcg tablet 75 mcg PO DAILY #90 tab-caps 09/27/15 10/06/21 albuterol sulfate 90 mcg/actuation 2 puff inhalation PRN PRN 02/11/16 10/06/21 aerosol inhaler (ProAir HFA) buprenorphine 12 mg-naloxone 3 mg 16 mg sublingual DAILY 07/24/17 10/06/21 sublingual film (Suboxone) polyethylene glycol 3350 17 gram 17 g PO PRN ##255 08/23/17 10/06/21 oral powder packet (Miralax) Allergies Allergy/AdvReac Type Severity Reaction Status Date / Time bupropion HCl Allergy Mild unknown Unverified 10/06/21 06:31 [From Wellbutrin] duloxetine HCl Allergy Mild unknown Unverified 10/06/21 06:31 [From Cymbalta] phenolphthalein [From Ex-Lax] Allergy Unknown SEIZURES Unverified 10/06/21 06:31 varenicline tartrate Allergy seizure Unverified 10/06/21 06:31 [From Chantix] Penicillins AdvReac Intermediate vomiting/pa Unverified 10/06/21 06:31 in ukn antidepression med Allergy Uncoded 10/06/21 06:31 General Stated Complaint: Abd Prob JERMAIN: 3 PFSH All Active Problems (Updated 10/06/21 @ 22:26 by PINKY Juarez) RUQ abdominal pain (Acute) Ureterolithiasis (Acute) Recurrent UTI (Acute) Hemorrhoids (Acute) Dyspepsia (Acute) Frequent headaches (Acute) Medical History Cervical intraepithelial neoplasia Depression GERD (gastroesophageal reflux disease) Hepatitis C Herpes simplex Hodgkins disease Hypothyroidism Kidney stone Peripheral neuropathy Shingles Tobacco use Tubular adenoma of colon Surgical History lateral sphincterotomy (02/11/16) Social History Smoking/Tobacco Use Status: Current every day Tobacco Type: cigarettes Smoking risk assessment performed?: Yes Drug use: Daily Substance use type: marijuana and crack/cocaine Details: suboxone-in a program BLT. Do you feel safe in your relationship?: Yes Exam Const General: cooperative, comfortable and disheveled Orientation: alert and oriented x3 Eyes Pupils: PERRL Resp Effort & Inspection: normal respiratory effort Auscultation: clear to auscultation bilaterally Cardio Rate: regular rate Rhythm: regular rhythm GI Other: Mild right upper quadrant tenderness, no CVA tenderness, no rebound or guarding Skin General skin exam: no rashes or lesions noted Neuro General: patient alert and patient oriented x3 Extrem Other: Distal pulses intact Course Vital Signs Vital signs: Vital Signs Temperature 36.3 C L 10/06/21 19:29 Pulse 72 10/06/21 19:29 Respiratory Rate 14 10/06/21 19:29 Blood Pressure 159/97 H 10/06/21 19:29 Pulse Oximetry 100 10/06/21 19:29 Temperature 36.3 C L 10/06/21 21:08 Temperature Source Tympanic 10/06/21 19:29 Pulse 70 10/06/21 22:38 Respiratory Rate 16 10/06/21 22:38 Respiratory Effort 10/06/21 19:41 Blood Pressure 148/87 H 10/06/21 22:38 Blood Pressure Position Right Lateral 10/06/21 19:29 Pulse Oximetry 98 10/06/21 22:38 Oxygen Delivery Method Room Air 10/06/21 19:29 Oxygen Flow Rate 0 10/06/21 19:29 Pain Level 0 10/06/21 22:38 Comment 10/06/21 19:29 Lab/Test Results Lab/Test Results: Laboratory Tests Range/Units 10/06/21 10/06/21 10/06/21 19:45 20:46 20:46 WBC Cancelled RBC Cancelled Hgb Cancelled Hct Cancelled MCV Cancelled MCH Cancelled MCHC Cancelled RDW Cancelled Plt Count Cancelled MPV Cancelled Immature Gran % Cancelled Neutrophils % Cancelled Band Neutrophils % Cancelled Lymphocytes % Cancelled Atypical Lymphs % Cancelled Monocytes % Cancelled Eosinophils % Cancelled Basophils % Cancelled Metamyelocytes % Cancelled Myelocytes % Cancelled Promyelocytes % Cancelled Other Cells % Cancelled Nucleated RBC % Cancelled Absolute Neutrophils Cancelled Absolute Lymphocytes Cancelled Absolute Monocytes Cancelled Absolute Eosinophils Cancelled Absolute Basophils Cancelled RBC Morphology Cancelled Polychromasia Cancelled Hypochromasia Cancelled Poikilocytosis Cancelled Basophilic Stippling Cancelled Anisocytosis Cancelled Microcytosis Cancelled Macrocytosis Cancelled Spherocytes Cancelled Tear Drop Cells Cancelled Ovalocytes Cancelled Stomatocytes Cancelled [place] Bodies Cancelled [place] Cells/Echinocytes Cancelled Acanthocytes (Spur) Cancelled Schistocytes Cancelled Sodium Cancelled Potassium Cancelled Chloride Cancelled Carbon Dioxide Cancelled Anion Gap Cancelled BUN Cancelled Creatinine Cancelled Est GFR (CKD-EPI 2020) Cancelled Glucose Cancelled Calcium Cancelled Total Bilirubin Cancelled AST Cancelled ALT Cancelled Alkaline Phosphatase Cancelled Total Protein Cancelled Albumin Cancelled Lipase Cancelled Urine Color (Yellow) Yellow Urine Clarity (Clear) Clear Urine pH (5-8) 7.0 Ur Specific [place] (1.005-1.025) 1.020 Urine Protein (Negative) mg/dL Negative Urine Ketones (Negative) mg/dL Negative Urine Blood (Negative) Negative Urine Nitrite (Negative) Negative Urine Bilirubin (Negative) Negative Urine Urobilinogen (Up TO 0.2) EU/dL 0.2 Ur Leukocyte Esterase (Negative) Negative Urine Glucose (Negative) mg/dL Negative COVID-19 Source SARS-CoV-2 (PCR) (Negative) Range/Units 10/06/21 21:33 WBC RBC Hgb Hct MCV MCH MCHC RDW Plt Count MPV Immature Gran % Neutrophils % Band Neutrophils % Lymphocytes % Atypical Lymphs % Monocytes % Eosinophils % Basophils % Metamyelocytes % Myelocytes % Promyelocytes % Other Cells % Nucleated RBC % Absolute Neutrophils Absolute Lymphocytes Absolute Monocytes Absolute Eosinophils Absolute Basophils RBC Morphology Polychromasia Hypochromasia Poikilocytosis Basophilic Stippling Anisocytosis Microcytosis Macrocytosis Spherocytes Tear Drop Cells Ovalocytes Stomatocytes [place] Bodies Lou Cells/Echinocytes Acanthocytes (Spur) Schistocytes Sodium Potassium Chloride Carbon Dioxide Anion Gap BUN Creatinine Est GFR (CKD-EPI 2020) Glucose Calcium Total Bilirubin AST ALT Alkaline Phosphatase Total Protein Albumin Lipase Urine Color (Yellow) Urine Clarity (Clear) Urine pH (5-8) Ur Specific [place] (1.005-1.025) Urine Protein (Negative) mg/dL Urine Ketones (Negative) mg/dL Urine Blood (Negative) Urine Nitrite (Negative) Urine Bilirubin (Negative) Urine Urobilinogen (Up TO 0.2) EU/dL Ur Leukocyte Esterase (Negative) Urine Glucose (Negative) mg/dL COVID-19 Source Nasal/Nares SARS-CoV-2 (PCR) (Negative) Negative POC- Test(urine) Negative
== END 2021-10-06 22:40 | disposition home or self-care (01) ==
PROVIDERS: Emergency Provider Physician Assistant
DX: N20.1 Calculus of ureter (principal); F17.210 Nicotine dependence, cigarettes, uncomplicated; Z20.822 Contact with and (suspected) exposure to COVID-19
CPT/HCPCS: 80053; 81025; 83690; 87635; 99284; 74176; 81003; 85025; 99282

== ENCOUNTER 2021-10-09 16:34 | Emergency (ER) | payer MEDICAID, SELFPAY ==
[2021-10-09 18:06] VITALS: BP 123/73; PULSE 110; RESP 17; TEMP 37; O2SAT 99
--- NOTE | 2021-10-09 18:30 | DI.CT_ITS ---
Exam(s) CT ABDOMEN PELVIS W EXAM: CT ABDOMEN PELVIS W CLINICAL HISTORY: RUQ pain. TECHNIQUE: Imaging Protocol: Axial computed tomography images with coronal and sagittal reformatted images were created and reviewed CONTRAST MATERIAL: Intravenous: Omnipaque 350 Contrast volume:100 ml Oral: no COMPARISON: CR ABD FLAT UPRIGHT PA CHEST from 02/11/2016 US PELVIS TRANSVAG from 09/29/[address] ABDOMEN PELVIS WO from 10/06/2021 FINDINGS: ABDOMEN: Lung Bases: Normal where visualized. Liver: Normal density. No measurable mass. The hepatic veins are not yet opacified. Gallbladder and biliary tract: The gallbladder is contracted. No radiodense calculus or dilation. Pancreas: Normal density, no abnormal calcifications or inflammatory process. Spleen: Normal. Kidneys: Normal size, contour and axis. Tiny nonobstructing stone lower pole left kidney. Homogeneou s parenchymal enhancement. No masses seen. Adrenal glands: No masses seen. Abdominal Aorta: Abdominal portion non-dilated. PELVIS: Bladder: No gross wall thickening. No calculi.No focal mass. Bowel: There is a large quantity of stool seen from the cecum through the splenic flexure. There is no small bowel dilatation. Food is noted in the stomach. No obstruction or bowel wall thickening. A ppendix normal. Peritoneal cavity: No ascites, collection or mesenteric inflammatory response. Bones: Sclerotic areas are noted in both femoral heads is which have the appearance of avascular necr osis. There is no evidence of femoral head collapse. There is mild bilateral hip joint space narrow ing and periarticular spurring. Reproductive organs: Within normal limits. Lymph nodes: Unremarkable. Impression: Large quantity of fecal material. The gallbladder is contracted. No evidence of appendicitis. RADIATION DOSE DELIVERED: 754.59mGy.cm Total DLP DATA REPOSITORY: All CT scans at this facility are submitted to the National Radiology Data Registry (NRDR) Dose Index Registry (DIR) with the [employer] (ACR). RADIATION OPTIMIZATION: All CT scans at this facility use at least one of these dose optimization te chniques: automated exposure control; mA and/or kV adjustment per patient size (includes targeted exa ms where dose is matched to clinical indication); or iterative reconstruction.
[2021-10-09 18:32] VITALS: RESP 17
[2021-10-09 18:53] LABS: Bilirubin Negative (Negative); Blood Negative (Negative); Clarity Cloudy (Clear); Glucose Negative (Negative); Ketones Negative (Negative); Leukocyte Esterase Negative (Negative); Nitrite Negative (Negative); Specific Gravity >= 1.030 (1.005-1.025); Urobilinogen 0.2 EU/dL (Up TO 0.2); pH 5.5 (5-8)
[2021-10-09 18:54] LABS: Abs Immature Grans 0.04 10^3/uL (0.0-0.06); Absolute Basophil Count 0.05 10^3/uL (0.0-0.2); Absolute Lymphocyte Count 2.21 10^3/uL (1.2-3.4); Absolute Monocyte Count 1.49 10^3/uL (0.1-0.8); Absolute Neutrophil Count 7.75 10^3/uL (1.2-6.7); Basophils % 0.4; Eosinophils % 0.9; HGB 14.1 g/dL (11.2-15.7); Immature Grans % 0.3; MCH 30.1 pg (27.0-33.0); MCHC 33.6 % (32.0-36.0); MCV 90 fL (80-95); MPV 9.8 fL (8.0-11.0); Monocytes % 12.8; Neutrophils % 66.6; Platelet Count 357 10^3/uL (130-400); RBC 4.69 10^6/uL (3.93-5.22); RDW 13.7 % (11.7-14.6); RDW-SD 44.8 fL; WBC 11.64 10^3/uL (4.4-10.8)
[2021-10-09] MEDS: Ondansetron 4 MG/2 ML VIAL IVP (18:55)
[2021-10-09] MEDS: Normal Saline 1,000 ML 1000 ML IV (18:55)
[2021-10-09] MEDS: Ketorolac 15 MG/ML VIAL IVP (19:00)
[2021-10-09] MEDS: HYDROmorphone 2 MG/ML SYR 0.5 MG IVP (19:02)
[2021-10-09 19:05] LABS: Bacteria Few HPF (Negative); C & S Indicated? No; Casts Negative LPF (Negative); Crystals Few Calcium Oxalate HPF (Negative); Epithelial Cells Few HPF (Negative); Mucus Negative (Negative); RBC 0-2 HPF (0-2)
[2021-10-09 19:10] LABS: ALT 16 U/L (14-59); AST 9 U/L (15-37); Albumin 3.4 g/dL (3.4-5.0); Alkaline Phosphatase 92 U/L (46-116); Anion Gap 6.1 mmol/L (3-11); BUN 12 mg/dL (7-18); Bilirubin, Total 0.4 mg/dL (0.2-1.0); CO2 30.9 mmol/L (21.0-32.0); CREATININE 0.9 mg/dL (0.55-1.02); Calcium 9.3 mg/dL (8.5-10.1); Chloride 104 mmol/L (98-107); Glucose 147 mg/dL (74-106); Lipase 40 U/L (73-393); Magnesium 2.2 mg/dL (1.8-2.4); Potassium 4.9 mmol/L (3.5-5.1); Sodium 141 mmol/L (136-145); Total Protein 8.2 g/dL (6.4-8.2)
[2021-10-09] MEDS: Omnipaque 350 MG/ML 100 ML BTL IJ (19:12)
[2021-10-09] MEDS: Normal Saline Flush 10 ML SYR IVP (19:12)
--- NOTE | 2021-10-09 19:44 | DI.VRAD_ITS ---
PROCEDURE INFORMATION: Exam: CT Abdomen And Pelvis With Contrast Exam date and time: 10/09/2021 7:07 PM Age: 36 years old Clinical indication: Abdominal pain; Localized; Right upper quadrant (ruq); Additional info: Ruq pain 5 days TECHNIQUE: Imaging protocol: Computed tomography of the abdomen and pelvis with contrast. Radiation optimization: All CT scans at this facility use at least one of these dose optimization techniques: automated exposure control; mA and/or kV adjustment per patient size (includes targeted exams where dose is matched to clinical indication); or iterative reconstruction. Contrast material: OMNI 350; Contrast volume: 100 ml; Contrast route: INTRAVENOUS (IV); COMPARISON: CT ABDOMEN PELVIS WO 10/06/2021 9:44 PM FINDINGS: Lungs: Mild dependent atelectasis or edema. Liver: Homogeneous liver parenchyma. Negative for suspicious liver mass. Gallbladder and bile ducts: Collapsed gallbladder. No calcified stones. No biliary ductal dilatation. Pancreas: Normal. No ductal dilation. Spleen: Normal. No splenomegaly. Adrenal glands: Normal. No mass. Kidneys and ureters: Negative for hydronephrosis. Ureters are not dilated. No stones are observed. Stomach and bowel: Distended stomach. Small bowel is not abnormally dilated, however there is moderate fluid and fecal-like material in the distal small bowel. Fat planes around most of the small bowel are indistinct. The colon is filled with stool and is moderately tortuous, although the rectum is collapsed and normal. Appendix: Normal appendix observed inferior to the cecum. Please see coronal images 32-35. The appendix measures 6 mm diameter. Intraperitoneal space: Mild mesenteric fat stranding. No significant free fluid. Negative for free air. Negative for abscess. Vasculature: Early portal venous contrast. No portal venous thrombosis. Mesenteric veins are unremarkable. Splenic vein is patent. Negative for portal or mesenteric venous gas. Normal abdominal aorta and iliac arteries. Unremarkable inferior vena cava. Lymph nodes: Mesenteric lymph nodes are mildly prominent. Negative for pathologic lymphadenopathy. Urinary bladder: Unremarkable urinary bladder. Thin quijano. No stones. Reproductive: Unremarkable as visualized. Bones/joints: No compression fracture. No significant degenerative changes in the lumbar spine. Sacrum and coccyx are intact. Small serpentine sclerotic lesions are observed in both femoral heads, without collapse. Mild narrowing is noted in both hips. Soft tissues: Negative for abdominal wall hernia. IMPRESSION: 1. Findings of enteritis and ileus. No bowel obstruction. 2. Normal appendix. 3. 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 Dictated and Authenticated by: Pilo Acosta MD. Ordering:JENNA Montiel MD
--- NOTE | 2021-10-09 19:51 | W.ED.GENAD ---
Discharge Plan Disposition Patient Disposition: HOME Condition: Fair Discharge Details Clinical Impression: Constipation, RUQ abdominal pain Primary Care Provider: None,None ED Provider: Dinesh Fernandez Home Meds and New Rx's Prescriptions: New bisacodyl [Dulcolax (bisacodyl)] 10 mg suppository 10 mg DC DAILY PRN (Reason: constipation) Qty: 12 0RF Continued levothyroxine 75 MCG tablet 75 mcg PO DAILY Qty: 90 Rx Instructions: 1 tab PO daily albuterol sulfate [ProAir HFA] 200 PUFF HFA aerosol inhaler 2 puff Inhalation PRN PRN buprenorphine-naloxone [Suboxone] 1 EACH film 16 mg Sublingual DAILY Label Comments: not taking currently polyethylene glycol 3350 [Miralax] 17 GM powder in packet 17 g PO PRN Qty: 255 0RF Discharge Instructions Instructions: Constipation (ED), Abdominal Pain (ED) Additional Instructions: If you develop any new or significant worsening of your symptoms please return to emergency department for reassessment. Otherwise take laxatives as discussed stay well-hydrated. It is very likely that your substance abuse is contributing to your constipation and abdominal pain. It is recommended that you speak with your provider about safely stopping your use of illicit drugs. We have ordered an outpatient ultrasound and you will need to contact the radiology department to arrange your appointment. Referrals: Primary Care Provider [Outside] - 1 week Discharge Data Discharge Date/Time-TO BE ENTERED AT DEPARTURE: 10/09/21 20:45 Medical Decision Making Patient presenting to the emergency department for chief complaint of right upper quadrant abdominal pain. Patient states that she was seen here couple days ago and diagnosed with possible kidney stone. She states that pain is significantly worsened and now with any eating she has significant nausea and has had some vomiting. She states subjective fever last night. Physical exam shows a disheveled patient seems very erratic in her behavior. Patient has very mild right CVA tenderness but there is significant Nguyen sign with palpation of right upper quadrant. We will plan on checking patient's labs and giving IV fluids along with repeat CT imaging due to worsening pain and discomfort that seems different from previous diagnosis of renal calculi. Patient is not , CBC show very slight leukocytosis with a WBC 11.6, CMP shows a slightly elevated glucose otherwise unremarkable. Lipase is within normal range. Urine shows a high specific gravity with trace protein otherwise negative for infection no blood noted. Reviewed CT imaging and radiologist interpretation that shows findings to suggest slight ileus and enteritis. Discussed further with patient illicit drug use typically does cause constipation. CT imaging reveals no signs of bowel obstruction. Discussed with patient preventative measures that she can take and to use [id number] laxatives. Patient that she did not want to last time she had a bowel movement. Given patient still has right upper quadrant tenderness will order appropriate ultrasound but no obvious findings on CT imaging for gallbladder issues and negative LFTs. After discussion of diagnosis and plan of care patient has no further needs, questions, or concerns and states clear understanding to return to the emergency department for any worsening symptoms. This documentation was generated using [employer] system, please disregard any oddities of phrase or misspellings. Imaging Data Radiologic Study: Attestation: I personally reviewed and interpreted this imaging study as follows: Imaging: CT Scan Radiologist's impression: FINDINGS: Lungs: Mild dependent atelectasis or edema. Liver: Homogeneous liver parenchyma. Negative for suspicious liver mass. Gallbladder and bile ducts: Collapsed gallbladder. No calcified stones. No biliary ductal dilatation. Pancreas: Normal. No ductal dilation. Spleen: Normal. No splenomegaly. Adrenal glands: Normal. No mass. Kidneys and ureters: Negative for hydronephrosis. Ureters are not dilated. No stones are observed. Stomach and bowel: Distended stomach. Small bowel is not abnormally dilated, however there is moderate fluid and fecal-like material in the distal small bowel. Fat planes around most of the small bowel are indistinct. The colon is filled with stool and is moderately tortuous, although the rectum is collapsed and normal. Appendix: Normal appendix observed inferior to the cecum. Please see coronal images 32-35. The appendix measures 6 mm diameter. Intraperitoneal space: Mild mesenteric fat stranding. No significant free fluid. Negative for free air. Negative for abscess. Vasculature: Early portal venous contrast. No portal venous thrombosis. Mesenteric veins are unremarkable. Splenic vein is patent. Negative for portal or mesenteric venous gas. Normal abdominal aorta and iliac arteries. Unremarkable inferior vena cava. Lymph nodes: Mesenteric lymph nodes are mildly prominent. Negative for pathologic lymphadenopathy. Urinary bladder: Unremarkable urinary bladder. Thin quijano. No stones. Reproductive: Unremarkable as visualized. Bones/joints: No compression fracture. No significant degenerative changes in the lumbar spine. Sacrum and coccyx are intact. Small serpentine sclerotic lesions are observed in both femoral heads, without collapse. Mild narrowing is noted in both hips. Soft tissues: Negative for abdominal wall hernia. IMPRESSION: 1. Findings of enteritis and ileus. No bowel obstruction. 2. Normal appendix. 3. 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 Lab Data Lab results reviewed: Yes I reviewed the patient's lab results. HPI General Mode of arrival: ambulatory. Date/Time Provider Initiated Documentation: 10/09/21 16:46. Limitations to Documentation: no limitations. Information obtained by: patient and RN notes reviewed. History of Present Illness 36 year old F presents to the emergency department with the chief complaint of Abdominal pain, described as severe and similar to prior episodes, with intensity rated at 10. Quality is described as sharp, and is localized to the abdomen and right (upper). Patient reports no radiation. Patient started experiencing this week(s) (1) and it has been constant. No relieving factors improve symptom(s), Movement worsens symptoms . Patient notes no other symptoms.. Patient did receive the following treatments prior to arrival, NSAID Related Data Home Medications Medication Instructions Recorded Confirmed levothyroxine 75 mcg tablet 75 mcg PO DAILY #90 tab-caps 09/27/15 10/09/21 albuterol sulfate 90 mcg/actuation 2 puff inhalation PRN PRN 02/11/16 10/09/21 aerosol inhaler (ProAir HFA) buprenorphine 12 mg-naloxone 3 mg 16 mg sublingual DAILY 07/24/17 10/09/21 sublingual film (Suboxone) bisacodyl 10 mg rectal suppository 10 mg DC DAILY PRN constipation 10/09/21 (Dulcolax (bisacodyl)) #12 ea polyethylene glycol 3350 17 gram 17 g PO PRN Constipation #255 grams 10/09/21 oral powder packet (Miralax) Previous Rx's Medication Instructions Recorded bisacodyl 10 mg rectal suppository 10 mg DC DAILY PRN constipation 10/09/21 (Dulcolax (bisacodyl)) #12 ea polyethylene glycol 3350 17 gram 17 g PO PRN Constipation #255 grams 10/09/21 oral powder packet (Miralax) Allergies Allergy/AdvReac Type Severity Reaction Status Date / Time bupropion HCl Allergy Mild unknown Unverified 10/06/21 06:31 [From Wellbutrin] duloxetine HCl Allergy Mild unknown Unverified 10/06/21 06:31 [From Cymbalta] phenolphthalein [From Ex-Lax] Allergy Unknown SEIZURES Unverified 10/06/21 06:31 varenicline tartrate Allergy seizure Unverified 10/06/21 06:31 [From Chantix] Penicillins AdvReac Intermediate vomiting/pa Unverified 10/06/21 06:31 in ukn antidepression med Allergy Uncoded 10/06/21 06:31 General Stated Complaint: GenMedical JERMAIN: 3 Review of Systems Constitutional Constitutional: Denies chills, Reports fever(s) (Subjective) and Reports poor appetite Cardiovascular Cardiovascular: Denies chest pain and Denies dyspnea Respiratory Respiratory: Denies cough and Denies dyspnea Gastrointestinal Gastrointestinal: Reports as per HPI, Reports abdominal pain, Denies melena, Denies change in bowel habits, Reports constipation, Reports heartburn, Denies diarrhea, Reports nausea and Reports vomiting Genitourinary Genitourinary: Denies hematuria, Denies urinary incontinence, Denies urinary hesitancy and Denies urinary urgency Integumentary/Breasts Skin/Breast: Denies rash Psychiatric Psychiatric: Reports anxiety PFSH All Active Problems (Updated 10/09/21 @ 20:20 by Dinesh Fernandez NP) RUQ abdominal pain (Acute) Ureterolithiasis (Acute) Constipation (Acute) Recurrent UTI (Acute) Hemorrhoids (Acute) Dyspepsia (Acute) Frequent headaches (Acute) Medical History Cervical intraepithelial neoplasia Depression GERD (gastroesophageal reflux disease) Hepatitis C Herpes simplex Hodgkins disease Hypothyroidism Kidney stone Peripheral neuropathy Shingles Tobacco use Tubular adenoma of colon Surgical History lateral sphincterotomy (02/11/16) Social History Smoking/Tobacco Use Status: Current every day Tobacco Type: cigarettes Smoking risk assessment performed?: Yes Drug use: Daily Substance use type: marijuana and crack/cocaine Details: suboxone-in a program BLT. Do you feel safe in your relationship?: Yes Exam Const General: cooperative Orientation: alert, awake and oriented x3 Resp Effort & Inspection: normal respiratory effort and able to speak in complete sentences Auscultation: clear to auscultation bilaterally Cardio Rate: regular rate Rhythm: regular rhythm Heart Sounds: S1 normal and S2 normal GI Palpation: soft, no hepatosplenomegaly, not firm, no guarding, no masses, no pulsatile masses, not rigid, no splenomegaly and tender in the epigastrum, in the RUQ and Nguyen's sign positive; not at McBurney's point, psoas sign negative, with no rebound tenderness and Rovsing's sign negative Auscultation: hypoactive bowel sounds Back/Spine/Pelvis Back: CVA tenderness (right) Neuro General: patient alert, patient awake, patient oriented x3, gait normal and moves all extremities Course Vital Signs Vital signs: Vital Signs Temperature 37 C 10/09/21 18:06 Pulse 110 H 10/09/21 18:06 Respiratory Rate 17 10/09/21 18:06 Blood Pressure 123/73 10/09/21 18:06 Pulse Oximetry 99 10/09/21 18:06 Temperature 37 C 10/09/21 18:06 Temperature Source Temporal Artery Scan 10/09/21 18:06 Pulse 110 H 10/09/21 18:06 Respiratory Rate 17 10/09/21 18:32 Respiratory Effort Non-Labored 10/09/21 18:32 Respiratory Depth Normal 10/09/21 18:32 Respiratory Pattern Normal 10/09/21 18:32 Blood Pressure 123/73 10/09/21 18:06 Blood Pressure Position Sitting 10/09/21 18:06 Pulse Oximetry 99 10/09/21 18:06 Oxygen Delivery Method Room Air 10/09/21 18:06 Oxygen Flow Rate 0 10/09/21 18:06 Pain Level 10 10/09/21 18:06 Lab/Test Results Lab/Test Results: Laboratory Tests Range/Units 10/09/21 10/09/21 10/09/21 17:50 18:30 18:35 WBC (4.4-10.8) 10^3/uL 11.64 H RBC (3.93-5.22) 10^6/uL 4.69 Hgb (11.2-15.7) g/dL 14.1 Hct (36.0-46.0) % 42.0 MCV (80-95) fL 90 MCH (27.0-33.0) pg 30.1 MCHC (32.0-36.0) % 33.6 RDW (11.7-14.6) % 13.7 Plt Count (130-400) 10^3/uL 357 MPV (8.0-11.0) fL 9.8 Immature Gran % 0.3 Neutrophils % 66.6 Lymphocytes % 19.0 Monocytes % 12.8 Eosinophils % 0.9 Basophils % 0.4 Nucleated RBC % (0.0-0.3) % 0.0 Absolute Neutrophils (1.2-6.7) 10^3/uL 7.75 H Absolute Lymphocytes (1.2-3.4) 10^3/uL 2.21 Absolute Monocytes (0.1-0.8) 10^3/uL 1.49 H Absolute Eosinophils (0.0-0.7) 10^3/uL 0.10 Absolute Basophils (0.0-0.2) 10^3/uL 0.05 Sodium (136-145) mmol/L 141 Potassium (3.5-5.1) mmol/L 4.9 Chloride (98-107) mmol/L 104 Carbon Dioxide (21.0-32.0) mmol/L 30.9 Anion Gap (3-11) mmol/L 6.1 BUN (7-18) mg/dL 12 Creatinine (0.55-1.02) mg/dL 0.9 Est GFR (CKD-EPI 2020) (mL/min/1.73m2) 85.50 Glucose (74-106) mg/dL 147 H Calcium (8.5-10.1) mg/dL 9.3 Magnesium (1.8-2.4) mg/dL 2.2 Total Bilirubin (0.2-1.0) mg/dL 0.4 AST (15-37) U/L 9 L ALT (14-59) U/L 16 Alkaline Phosphatase (46-116) U/L 92 Total Protein (6.4-8.2) g/dL 8.2 Albumin (3.4-5.0) g/dL 3.4 Lipase (73-393) U/L 40 Urine Color (Yellow) Yellow Urine Clarity (Clear) Cloudy Urine pH (5-8) 5.5 Ur Specific Doucette (1.005-1.025) >= 1.030 H Urine Protein (Negative) mg/dL Trace H Urine Ketones (Negative) mg/dL Negative Urine Blood (Negative) Negative Urine Nitrite (Negative) Negative Urine Bilirubin (Negative) Negative Urine Urobilinogen (Up TO 0.2) EU/dL 0.2 Ur Leukocyte Esterase (Negative) Negative Urine RBC (0-2) HPF 0-2 Urine WBC (0-5) HPF 3-5 Ur Epithelial Cells (Negative) HPF Few Urine Crystals (Negative) HPF Few Calcium Oxalate Urine Bacteria (Negative) HPF Few Urine Casts (Negative) LPF Negative Urine Mucus (Negative) Negative Ur Culture Indicated? No Urine Glucose (Negative) mg/dL Negative POC- Test(urine) Negative PAWSS Have you Been Recently Intoxicated or Drunk Within the Last 30 days?: Yes Have you Ever Experienced Previous Episodes of Alcohol Withdrawal?: No Have you ever Experienced Withdrawal Seizures?: No Have you ever Experienced Delirium Tremens(DT)s?: No Have you ever undergone Alcohol Rehabilitation Treatment (i.e, inpt ot outpatient treatment programs)?: No Have you ever Experienced Blackouts?: No Have you ever Combined Alcohol with other Downers within the last 90 days?: No Have you ever Combined Alcohol with any other Substance of Abuse during the last 90 days?: No Positive Blood Alcohol level on Presentation? [PCS.BAL]: No Evidence of Increased Autonomic Activity (i.e. HR>120, tremor, sweating, agitation, nausea)?: No Result: 1
[2021-10-09 20:45] VITALS: BP 113/57; PULSE 99; RESP 16; TEMP 37; O2SAT 97
== END 2021-10-09 20:45 | disposition home or self-care (01) ==
PROVIDERS: Emergency Provider Nurse Practitioner Family
DX: R10.11 Right upper quadrant pain (principal); K59.00 Constipation, unspecified; R11.2 Nausea with vomiting, unspecified; D72.829 Elevated white blood cell count, unspecified; R73.9 Hyperglycemia, unspecified; F17.210 Nicotine dependence, cigarettes, uncomplicated
CPT/HCPCS: 36415; 80053; 81025; 83690; 96361; 96374; 96375; 99285; 74177; 81003; 81015; 83735; 85025; 99284; J1170; J1885; J2405; J3490

== ENCOUNTER 2021-10-20 07:49 | Observation (INO) | payer MEDICAID, SELFPAY ==
[2021-10-20] VITALS (18 sets, daily range): BP systolic 108–141; BP diastolic 66–89; PULSE 75–129; RESP 12–24; TEMP 36–37.4; O2SAT 39–100; BMI 22.6
--- OUTSIDE RECORDS SUMMARY | 2021-10-20 07:54 | XMS_ITS ---
:1985 Author Care Team Providers Name Role Phone Nonvrh, Provider Primary Care Provider Unavailable Allergies Code Code System Name Reaction Severity Status Onset Penicillins ? ? Active ? Medications Name Status Start Date Stop Date ? ? ibuprofen 400 mg tablet Active ? Not avai lable 2 tablets given in office ibuprofen 800 mg tablet Active ? Not avai lable Take 1 tablet 3 times a day by oral route as needed. Suboxone 8 mg-2 mg sublingual tablet Active ? Not available Place 1 tablet every day by sublingual route. sulfamethoxazole 800 mg-trimethoprim 160 mg tablet Active ? Not available Take 1 tablet every 12 hours by oral route for 10 days. Problems None recorded. Procedures Date Name Performed by ? 10/15/2021 XR, [facility] ([facility]) [address] [place] [address] (Work Place) Notes: none per pt Results Lab Results None recorded. 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 [phone] Social History None recorded. Vaccine List None recorded. Plan of Care Reminders Provider Appointments None recorded. ? ? Lab None recorded. ? ? Referral None recorded. ? ? Procedures None recorded. ? ? Surgeries None recorded. ? ? Imaging None recorded. ? ? Vitals Blood Pressure 120/67 mm[Hg]
--- OUTSIDE RECORDS SUMMARY | 2021-10-20 07:54 | XMS_ITS | Encounter Summary ---
:1985 Author Organization [facility] [place] [address] Care Team Providers Name Role Phone Autumn Krishnan APRN Primary Care Provider [phone] Reason for Visit Reason Comments Patient Education Encounter Details Date Type Department Care Team Description 03/14/2021 Specialty Pharmacy Pharmacy at [facility] [place] [facility]ngel, Patient Education [facility] [place] [id number] Social History Tobacco Use Types Packs/Day Years Used Date Current Every Day Smoker Cigarettes 1 Smokeless Tobacco: Never Used Alcohol Use Standard Drinks/Week Comments No 0 (1 standard drink = 0.6 oz pure alcoho l) Not during Sex Assigned at Date Recorded Female 04/13/2020 8:26 AM EST documented as of this encounter Progress Notes Delicia Del Rosario [facility] - 03/14/2021 10:37 AM EST Clinical Management Plan: Transfer of Care/Discharge Specialty Services Specialty Pharmacy Consultation; Delicia Del Rosario [facility] Comprehensive Medication Management (CMM) Shirlene Kovacs [address] [facility] [id number] Telephone Information: Work Phone Not on file. Is the patient transferring services to a different Specialty Pharmacy or discontinuing the medication? Discontinuing Services Medication: Mavyret for 8 weeks Reason for discontinuation or transfer: Unable to reach patient for SVR12 reminder call. Left message on her phone and spoke with her mother. Approximate date of discontinuation or transfer: 03/14/2021 Patient's response to therapy: Unknown. SVR12 was due 02/11/2021. Summary of services provided by [facility]: New start consultation, 3 day follow up, refill and follow up consult, end of treatment consult and SVR12 reminder call. Summary of on-going needs: SVR12 to access cure of Hepatitis C after treatment for 8 weeks with Mavyret. Referral for additional services (if applicable): no Is patient aware of referral? no Instructions provided to patient about discharge/transfer: no Provider aware of discontinuation or transfer: Yes Patient understands no changes to current drug regimen were made at the appointment and that [facility] is providing recommendations (summary located at top of note) for provider review and follow up. Delicia Del Rosario RPH 03/14/21 10:37 AM documented in this encounter Plan of Treatment Not on filedocumented as of this encounter Goals Goal Patient Goal Associated Recent Patient-Stated? Author Type Problems Progress DH Home Medication Patient On track Yes Antony Abraham and Facing (10/12/2020 Rita Dumas Understanding Action Plan 9:07 AM EDT) [facility] Note: Formatting of this note might be d ifferent from the original. SVR12 through treatment with Mavyret x 8 weeks documented as of this encounter Visit Diagnoses Not on filedocumented in this encounter Care Teams Loader Machine Relationship Specialty Start Date End Date Autumn Krishnan APRN PCP - General 05/16/20 [place] [address] documented as of this encounter
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
--- OUTSIDE RECORDS SUMMARY | 2021-10-20 07:54 | XMS_ITS | Encounter Summary ---
:1985 Author Reason for Visit right thumb pain, swelling. No known inj ury. Been a few days but woke her up last night. verified SB Assessment and Plan Assessment Note Xray negative for bony injury or acute foreign body. Motrin given for pain. Because her symptoms is unclear and the broad di fferential including but not limited to localized infection, tendinitis, herpeti c eunice, etc. No evidence of neurovascular compromise at this time. The command use of the thumb spica splint and she has requested a prescription for ibuprofen w hich has been provided. Recommend warm compresses, elevation and Bactrim ?10 da ys and follow-up with PCP/orthopedics next week if symptoms not improving. Proceede d to the emergency department if worsening. she expresses interest in getting help f or her addiction. Some rehabilitation resources printed off the Internet and rolando ziegler to the patient at time of discharge. She agrees to return if new/worsening sympto ms, is in agreement with tx/dc plan. Has declined dc instructions and was verball y dc'd by me. 1. Localized swelling of right thumb ? XR, thumb ? ibuprofen 400 mg tablet ? thumb spica velcro wrist splint ? sulfamethoxazole 800 mg-trimethoprim 160 mg tablet ? ibuprofen 800 mg tablet 2. Poly-drug misuser Discussion Note: None recorded.Patient educational handouts: No information available. Plan of Care Reminders Provider Appointments None recorded. ? ? Lab None recorded. ? ? Referral None recorded. ? ? Procedures None recorded. ? ? Surgeries None recorded. ? ? Imaging XR, Thumb 10/15/2021 [facility] (Imaging) Medications Name Start Date ? ? ibuprofen 400 mg tablet ? 2 tablets given in office ibuprofen 800 mg tablet ? Take 1 tablet 3 times a day by oral route as needed. Suboxone 8 mg-2 mg sublingual tablet ? Place 1 tablet every day by sublingual route. sulfamethoxazole 800 mg-trimethoprim 160 mg tablet ? Take 1 tablet every 12 hours by oral route for 10 day s. Medications Administered Name Date ? ? ibuprofen 400 mg tablet [id number] 2 tablets given in office Vitals Blood Pressure 120/67 mm[Hg] Results Lab Results None recorded. Allergies Code Code System Name Reaction Severity Onset Penicillins ? ? ? Problems None recorded. Procedures Date Name Performed by ? 10/15/2021 XR, [facility] (Imaging) [address] [place] [address] (Work Place) Notes: none per pt Vaccine List None recorded. Social History None recorded. Functional Status Unknown. Past Encounters 10/15/2021 Localized Swelling of Right Thumb; Poly- drug Misuser Aniyah Padron, [employer]ER: [address] [place] [address], Ph. [phone] History of Present Illness Note: <div>36-year-old non-toxic, anxious-appearing female presents for evaluation of right thumb swelling and pain. She admits she engages in illicit drug use including snorting crushed opioid pills,cocaine, smoking crack, and allowing friends inject her with IV cocaine and crushed opioid pills. she reports she has not used crack, cocaine, or percocet in the past 48 hours which has certainly caused her increased angst and disproportionate pain. Admits to using street suboxone the last 2 days to help her through her withdrawal. She does not recall a specific injury to her thumb. She is right-handed. 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 Denies fever, loss of sensation, prior injury/surgery to and hand/finger, wrist pain/swelling, discharge, wound, or recent antibiotics.</div>Review of Systems: ROS as noted in the HPI Review of Systems None recorded. Physical Exam ? [Global] Brief PE Reported By: Patient General: General Appearance: well-dev eloped, too thin; anxious, jittery, cooperative, good eye contac t, pleasent. Level of Distress: NAD Cardiovascular: Heart Auscultation: RRR Musculoskeletal: Joints, Bones, and Muscles: ; Right thumb moderate inflammation, disproportionate ttp, and mi ld bluish discoloration at nail base, proximal to nail. No crepitu s, erythema, blistering or warmth. Callous visible along latera l pad. No clear evidence of wound. Nail intact. TTp along IP joint. No ttp CMC or MPC joints. No hand, wrist or forearm ttp, swelling, er ythema or crepitus Psychiatric: Affect appropriate
--- OUTSIDE RECORDS SUMMARY | 2021-10-20 07:54 | XMS_ITS | Encounter Summary ---
:1985 Author Organization [facility] [place] [address] Care Team Providers Name Role Phone Autumn Krishnan APRN Primary Care Provider [phone] Encounter Details Date Type Department Care Team Description 04/21/2021 Office Visit Urgent Care at Located within [facility] Ximena Jett Upper abdominal pain [address] [facility] [place] [address] [address] [facility] [phone] [place] [address] (Wo rk) Social History Tobacco Use Types Packs/Day Years Used Date Current Every Day Smoker Cigarettes 1 Smokeless Tobacco: Never Used Alcohol Use Standard Drinks/Week Comments No 0 (1 standard drink = 0.6 oz pure alcoho l) Not during Sex Assigned at Date Recorded Female 04/13/2020 8:26 AM EST documented as of this encounter Last Filed Vital Signs Vital Sign Reading Time Taken Comments Blood Pressure 128/49 04/21/2021 6:40 PM EDT Pulse 111 04/21/2021 6:40 PM EDT Temperature 36.6 ??C (97.8 ??F) 04/21/2021 6:40 PM EDT Respiratory Rate 24 04/21/2021 6:40 PM EDT Oxygen Saturation 98% 04/21/2021 6:40 PM EDT Inhaled Oxygen Concentration - - Weight - - Height - - Body Mass Index - - documented in this encounter Progress Notes Ximena Jett PA - 04/21/2021 6:20 PM EDT Subjective Patient ID: Shirlene Kovacs is a 35 y.o. female w/ a PMH of chronic pancreatitis who presents with an exacerbation of her pancreatitis She evaluated at [facility] for her vomiting, abdominal pain and pancreatitis She was determined to have a vulvar abscess and was prescribed keflex and [facility] Notes she has been admitted to the hospital in the past for chronic pancreatitis Reports she is currently in a drug rehab program and is on suboxone Abdominal Pain This is a new problem. The current episode started yesterday. The onset quality is sudden. The problem occurs constantly. The problem has been gradually worsening. The pain is located in the epigastricregion. The pain is severe. The quality of the pain is aching. The abdominal pain radiates to the back. Associated symptoms include constipation, hematuria (on UA at [facility]), nausea and vomiting. Pertinent negatives include no anorexia, arthralgias, belching, diarrhea, dysuria, fever, flatus, frequency, headaches, hematochezia, melena, myalgias or weight loss. The pain is aggravated by movement. The pain is relieved by nothing. Prior diagnostic workup includes GI consult and upper endoscopy. Her past medical history is significant for GERD and pancreatitis. There is no history of abdominal surgery, colon cancer, Crohn's disease, gallstones, irritable bowel syndrome, PUD or ulcerative colitis. Review of Systems Constitutional: Negative for fever and weight loss. Gastrointestinal: Positive for abdominal pain, constipation, nausea and vomiting. Negative for anorexia, diarrhea, flatus, hematochezia and melena. Genitourinary: Positive for hematuria (on UA at [facility]). Negative for dysuria and frequency. Musculoskeletal: Negative for arthralgias and myalgias. Neurological: Negative for headaches. Objective BP 128/49 (BP Location (NBP): Right arm, Patient Position: Sitting, BP Cuff Sizes: Adult (25-34 cm)) Pulse (!) 111 Temp 36.6 ??C (97.8 ??F) Resp 24 LMP 03/24/2021 (Approximate) [id number]% Physical Exam Constitutional: Appearance: She is ill-appearing. Comments: Crying, holding abdomen in noted discomfort HENT: Head: Normocephalic and atraumatic. Eyes: General: Right eye: No discharge. Left eye: No discharge. Conjunctiva/sclera: Conjunctivae normal. Pupils: Pupils are equal, round, and reactive to light. Cardiovascular: Rate and Rhythm: Tachycardia present. Pulses: Normal pulses. Heart sounds: Normal heart sounds. Pulmonary: Effort: Pulmonary effort is normal. Breath sounds: Normal breath sounds. Abdominal: General: Bowel sounds are normal. Palpations: Abdomen is soft. Tenderness: There is abdominal tenderness in the epigastric area and left upper quadrant. Comments: Ascites Musculoskeletal: General: Normal range of motion. Cervical back: Normal range of motion and neck supple. Skin: General: Skin is warm and dry. Neurological: General: No focal deficit present. Mental Status: She is alert. Mental status is at baseline. Psychiatric: Mood and Affect: Mood normal. Behavior: Behavior normal. Thought Content: Thought content normal. Judgment: Judgment normal. Assessment and Plan Diagnoses and all orders for this visit: Upper abdominal pain -EMS contacted for transfer to local ER for suspected pancreatitis -notified patient's mother of transfer to ER -report called to [facility] ER - Luz VELÁSQUEZ Electronic signature: PINKY Wade-Mark 04/21/2021 7:07 PM documented in this encounter Plan of Treatment Not on filedocumented as of this encounter Goals Goal Patient Goal Associated Recent Patient-Stated? Author Type Problems Progress DH Home Medication Patient On track Yes Leigh , Compliance and Facing (10/12/2020 Rita Dumas Understanding Action Plan 9:07 AM EDT) [facility] Note: Formatting of this note might be d ifferent from the original. SVR12 through treatment with Mavyret x 8 weeks documented as of this encounter Visit Diagnoses Diagnosis Upper abdominal pain Abdominal pain, other specified site documented in this encounter Care Teams Radiologic Technologist Relationship Specialty Start Date End Date Autumn Krishnan APRN PCP - General 05/16/20 [place] [id number] documented as of this encounter
--- OUTSIDE RECORDS SUMMARY | 2021-10-20 07:54 | XMS_ITS | Encounter Summary ---
:1985 Author Organization [facility] [place] [address] Care Team Providers Name Role Phone Autumn Krishnan APRN Primary Care Provider [phone] Encounter Details Date Type Department Care Team Description 03/16/2021 Telephone Gastroenterology at [facility] [place] [address] Social History Tobacco Use Types Packs/Day Years Used Date Current Every Day Smoker Cigarettes 1 Smokeless Tobacco: Never Used Alcohol Use Standard Drinks/Week Comments No 0 (1 standard drink = 0.6 oz pure alcoho l) Not during Sex Assigned at Date Recorded Female 04/13/2020 8:26 AM EST documented as of this encounter Miscellaneous Notes Telephone Encounter - Autumn Miller - 03/16/2021 2:46 PM EST Call made to patient per in basket request from: Nursing Patient needs: follow up scheduled with Dr. Roberts Unable to leave a message for patient to call GI clinic to schedule, will call back again at a laterdate documented in this encounter Plan of Treatment Not on filedocumented as of this encounter Goals Goal Patient Goal Associated Recent Patient-Stated? Author Type Problems Progress DH Home Medication Patient On track Yes Leigh , Antony and Facing (10/12/2020 Rita Dumas, Understanding Action Plan 9:07 AM EDT) [facility] Note: Formatting of this note might be d ifferent from the original. SVR12 through treatment with Mavyret x 8 weeks documented as of this encounter Visit Diagnoses Not on filedocumented in this encounter Care Teams Admitting Coordinator Relationship Specialty Start Date End Date Autumn Krishnan APRN PCP - General 05/16/20 [facility] [place] [phone] documented as of this encounter
--- OUTSIDE RECORDS SUMMARY | 2021-10-20 07:54 | XMS_ITS | Encounter Summary ---
:1985 Author Organization [facility] Address [place] [id number] Care Team Providers Name Role Phone AriellaAutumn wilde APRN Primary Care Provider [phone] Encounter Details Date Type Department Care Team Description 02/13/2021 Interpretation Only [facility] Anyi Kraus, Nithin Sorensen MD [place], [place] [address] [address] [place], [place] [phone] Social History Tobacco Use Types Packs/Day Years Used Date Current Every Day Smoker Cigarettes 1 Smokeless Tobacco: Never Used Alcohol Use Standard Drinks/Week Comments No 0 (1 standard drink = 0.6 oz pure alcoho l) Not during Sex Assigned at Date Recorded Female 04/13/2020 8:26 AM EST documented as of this encounter Plan of Treatment Not on filedocumented as of this encounter Goals Goal Patient Goal Associated Recent Patient-Stated? Author Type Problems Progress DH Home Medication Patient On track Yes Leigh , Antony and Facing (10/12/2020 Rita Dumas, Understanding Action Plan 9:07 AM EDT) [facility] Note: Formatting of this note might be d ifferent from the original. SVR12 through treatment with Mavyret x 8 weeks documented as of this encounter Procedures Procedure Name Priority Date/Time Associated Diagnosis Comme nts XR HAND MIN 3 VIEWS STAT 02/13/2021 6:57 PM Re sults for this RIGHT EST procedure are i n the results section. documented in this encounter Results XR Hand Min 3 views Right (Generic) (02/13/2021 6:57 PM EST) P athologist Signature PT CLASS E RAD ADMITDTTM RAD PT [facility] INFO [id number]^C RAD HANDER^SUNEE R EXAM DESC [id number]^XR RAD RIGHT HAND ROUTINE 3+VIEWS^RIS Anatomical Region Laterality Modality Hand Right Radiographic Imaging Specimen (Source) Anatomical Location Collection Method / Collectio n Time Received Time / Laterality Volume Impressions 02/13/2021 7:12 PM EST 1. ??No acute fracture or dislocation. 2. ??There is focal osteolysis of the di stal tip of the fifth distal phalanx potentially reflecting an old injury or infectious process. There is an adjacent linear radiodensity which may reflect a foreign object. Thank you for letting us participate in the care of this patient. ??If you are a health care provider and have any questi ons regarding this report, please contact the number below. ??For patients who have questions please contact the health manager critical care that requested your imaging first. ? Narrative 02/13/2021 7:12 PM EST EXAMINATION: XR RIGHT HAND ROUTINE 3+VIEWS CLINICAL HISTORY: right hand pain TECHNIQUE: 3 views of the right hand. COMPARISON: None FINDINGS: There is no acute fracture or dislocatio n. There is focal osteolysis of the fifth digit. There is an adjacent linear radiopacity within the soft tissues of the distal tip at the fifth digit. The s oft tissues are otherwise unremarkable. Procedure Note Ashley Hale MD - 02/13/2021Formatting o f this note might be different from the original. EXAMINATION: XR RIGHT HAND ROUTINE 3+VIE WS CLINICAL HISTORY: right hand pain TECHNIQUE: 3 views of the right hand. COMPARISON: None FINDINGS: There is no acute fracture or dislocatio n. There is focal osteolysis of the fifth digit. There is an adjacent linear radiopacity within the soft tissues of the distal tip at the fifth digit. The s oft tissues are otherwise unremarkable. IMPRESSION 1. No acute fracture or dislocation. 2. There is focal osteolysis of the dist al tip of the fifth distal phalanx potentially reflecting an old injury or infectious process. There is an adjacent linear radiodensity which may reflect a foreign object. Thank you for letting us participate in the care of this patient. If you are a health care provider and have any questi ons regarding this report, please contact the number below. For patients w ho have questions please contact the health manager critical care that requested your imaging first. Anyi Kraus MD IMG DX ORDERABLES documented in this encounter Visit Diagnoses Not on filedocumented in this encounter Care Teams Resin Maker Relationship Specialty Start Date End Date Autumn Krishnan APRN PCP - General 05/16/20 [place] [address] documented as of this encounter
--- OUTSIDE RECORDS SUMMARY | 2021-10-20 07:54 | XMS_ITS | Encounter Summary ---
:1985 Author Organization [facility] Address [place] [id number] Care Team Providers Name Role Phone [place] Krishnanica ISHAAN Primary Care Provider [phone] Encounter Details Date Type Department Care Team Description 10/15/2021 Interpretation Only [facility], [address] [facility] [place] [phone] [facility] [phone] [place] [address] Social History Tobacco Use Types Packs/Day Years [...] Dumas, Understanding Action Plan 9:07 AM EDT) [facility] Note: Formatting of this note [...] section. documented in this encounter Results XR Fingers Min 2 views Right (Generic) (10/15/2021 5:23 PM EDT) [facility] gist Method Time Signature PT CLASS O RAD ADMITDTTM [id number] RAD PT RAD INFO [id number]^PADRON^GERA RAD LINE^A [...] who have questions please contact the health child care associate teacher that requested your imaging first. ? Electronically signed by: Pippa Gomez, [facility] ([phone]), at 10/15/2021 5:25 PM Narrative 10/15/2021 5:25 PM EDT EXAMINATION: XR FINGER MINIMUM 2 VIEWS RIGHT CLINICAL HISTORY: pain, swelling TECHNIQUE: 3 views right thumb COMPARISON: February 13, 2021 FINDINGS: No acute osseous abnormalities is seen. No significant soft tissue finding. Procedure Note Suraj Salinas MD - 10/15/2021Formattin [place] of this note might be different from [...] ho have questions please contact the health child care associate teacher that requested your imaging first. Electronically signed by: Pippa Gomez, [facility] ([phone]), at 10/15/2021 5:25 PM Aniyah Padron APRN IMG DX ORDERABLES documented in this encounter Visit Diagnoses Not on filedocumented in this encounter Care Teams Studio Designer Relationship Specialty Start Date End Date Autumn Krishnan APRN PCP - General 05/16/20 [place] [address] documented as of this encounter
--- OUTSIDE RECORDS SUMMARY | 2021-10-20 07:55 | XMS_ITS | Encounter Summary ---
:1985 Author Organization [facility] [place] [address] Care Team Providers Name Role Phone Genet Holland Primary Care Provider Encounter Details Date Type Department Care Team Description 02/02/2020 Hospital Encounter Laboratory [place] [address] Social History Tobacco Use Types Packs/Day Years Used Date Current Every Day Smoker Cigarettes 0.25 Smokeless Tobacco: Never Used Alcohol Use Standard Drinks/Week Comments No 0 (1 standard drink = 0.6 oz pure alcoho l) Not during Sex Assigned at Date Recorded Female 04/13/2020 8:26 AM EST documented as of this encounter Medications at Time of Discharge Medication Sig Dispensed Refills Start Date End Date ibuprofen (Advil;Motrin) Take 1 tablet by 30 tablet 12 10/05 600 mg Tablet mouth every 6 hours as needed for Pain. norethindrone (MICRONOR) Take 1 tablet by 84 tablet 3 10/05 0.35 mg Tablet mouth daily. nicotine (NICODERM CQ) 14 Change 1 patch on patch 3 mg/24 hr Patch 24 hr the skin daily. albuteroL 90 Inhale 2 puffs into 1 Inhaler 3 08/03/2019 mcg/actuation HFA Aerosol the lungs every 4 Inhaler hours as needed for Wheezing. Use with spacer docusate sodium (Colace) Take 1 capsule by 60 capsule 5 04/2019 100 mg Capsule mouth 2 times daily. levothyroxine (Synthroid) Take 1 tablet by 30 tablet 3 04/2019 75 mcg Tablet mouth daily. polyethylene glycol Take 17 g by mouth 510 g 5 07/04/19 20 (Miralax) 17 gram/dose 2 times daily. PowderIndications: Constipation, unspecified constipation type FLUoxetine (PROzac) 20 mg Take 3 tablets by 90 tablet 2 03/17/2020 Tablet mouth daily. buprenorphine-naloxone Place 16 mg of 56 each 0 0 02/18/2020 (SUBOXONE) 8-2 mg Film opiate under the tongue daily. gabapentin (Neurontin) Take 100 mg by 0 09/07/2020 100 mg Capsule mouth 3 times daily. labetaloL (Normodyne) 100 take 1 tablet by 60 tablet 0 09/0709/07/2020 mg Tablet mouth twice a day Plus, calcium Take 1 tablet by 90 tablet 3 020 09/15/2020 carb, 27 mg iron- 1 mg mouth daily. Tablet documented as of this encounter Plan of Treatment Not on filedocumented as of this encounter Procedures Procedure Name Priority Date/Time Associated Comments Diagnosis OPIOIDS CONFIRMATION Routine 02/02/2020 2:02 PM Opioid use dis order Results for this PANEL, URINE EST procedure are i n the results section. RAPID DRUG SCREEN, Routine 02/02/2020 2:02 PM Opioid use disor mario Results for this COMPLIANCE MONITORING EST proced ure are in the results section. HC URINE DRUG SCREEN Routine 02/02/2020 2:02 PM Opioid use dis order BY INSTRUMENT EST documented in this encounter Results (ABNORMAL) Opioids Confirmation Panel, Urine (02/02/2020 2:02 PM EST) athologist Signature U Morphine Lvl <10.0 <=9.9 [facility]mL [facility] Comment: The presence of morphine may arise from the use of morphine-containing drugs, poppy seeds, or via metabolism of either codeine or heroin. When generated by the metabolism of codeine, the concentra tion of morphine is typically less than the concentration of codeine. When gener ated by the metabolism of heroin, morphine is usually present at a concent ration greater than the 6-SAUL concentration. Hydromorphone is a minor metabolite of morphine. Cutoff = 10 ng/mL. U Oxymorphone Lvl <10.0 <=9.9 ng/mL [facility] Comment: Oxymorphone may arise from the use of ox ymorphone-containing drugs or by metabolism of oxycodone. Cutoff = 10 ng/ mL. U Hydromorphone Lvl <10.0 <=9.9 ng/mL [facility] Comment: Hydromorphone may arise from the use of hydromorphone-containing drugs or by metabolism of morphine. Cutoff = 10 ng/m L. U Dihydrocodeine Lvl <10.0 <=9.9 ng/mL [facility] Comment: Dihydrocodeine may arise from the use of dihydrocodeine-containing drugs or by metabolism of hydrocodone (minor metabol ite). Cutoff = 10 ng/mL. U Naloxone Lvl >1000.0 (H) <=4.9 ng/mL [facility] Comment: Naloxone is not recognized as a metaboli te of other opioids and its presence indicates the use of naloxone or naloxon e-containing products such as Suboxone??. Patients taking a low dose o f naloxone may be compliant despite a naloxone result below the limit of detec tion. Cutoff = 5 ng/mL. U Codeine Lvl <10.0 <=9.9 ng/mL [facility] Comment: Codeine is not a recognized metabolite o f other opioids and its presence indicates use of a codeine-containing dr ug. Codeine metabolites include morphine and hydrocodone (minor metaboli te). The presence of codeine in the absence of its metabolites (morphine and hydrocodone) suggests placement of codeine directly into the urine specimen rather than ingestion. Cutoff = 10 ng/mL. U Noroxycodone Lvl <10.0 <=9.9 ng/mL [facility] Comment: Noroxycodone is a metabolite of oxycodon e and its presence indicates oxycodone use. Cutoff = 10 ng/mL. U Oxycodone Lvl <5.0 <=4.9 ng/mL [facility] Comment: Oxycodone is not a recognized metabolite of other opioids and its presence indicates use of an oxycodone-containing drug. Oxycodone is metabolized to oxymorphone and noroxycodone. The presen ce of oxycodone in the absence of its metabolites (noroxycodone, oxymorphone) suggests placement of oxycodone directly into the urine specimen rather than ingestion. Cutoff = 5 ng/mL. U 6-SAUL Lvl <5.0 <=4.9 ng/mL [facility] Comment: 6-SAUL: The presence of 6-monoacetylmorph ine (6-SAUL) indicates heroin use. 6-SAUL is metabolized to morphine. Cutoff = 5 n g/mL. U Norhydrocodone Lvl <10.0 <=9.9 ng/mL [facility] Comment: Norhydrocodone is the major met abolite of hydrocodone. Cutoff = 10 ng/mL. U O-Desmethyltramadol Lvl <4.0 <=3.9 ng/mL [facility] Comment: O-desmethyltramadol is a metabolite of t ramadol and its presence indicates tramadol use. Cutoff = 4 ng/mL. U Hydrocodone Lvl <10.0 <=9.9 ng/mL [facility] Comment: Hydrocodone may arise from the use of hy drocodone-containing drugs or by metabolism of codeine. When generated by the metabolism of codeine, the concentration of hydrocodone is typicall y less than the concentration of codeine. Hydrocodone is metabolized to n orhydrocodone, dihydrocodeine, and hydromorphone (minor metabolite). Cutoff = 10 ng/mL. U Norfentanyl Lvl <1.0 <=0.9 ng/mL [facility] Comment: Norfentanyl is a metabolite of fentanyl and its presence indicates fentanyl use. Cutoff = 1 ng/mL. U Tramadol Lvl <4.0 <=3.9 ng/mL [facility] Comment: Tramadol is not recognized as a metaboli te of other opioids and its presence indicates the use of tramadol-containing drugs. The presence of tramadol in the absence of O-desmethyltramadol suggests placement of tramadol directly into the urine specimen rather than ingestion. Cu toff = 4 ng/mL. U Norbuprenorphine Lvl >1000.0 (H) <=4.9 ng/mL [facility] Comment: Norbuprenorphine is a metabolite of bupr enorphine and its presence indicates use of buprenorphine or combination prod ucts such as Suboxone??. Cutoff = 5 ng/mL. U Fentanyl Lvl <1.0 <=0.9 ng/mL [facility] Comment: Fentanyl is not recognized as a metaboli te of other opioids and its presence indicates the use of fentanyl-containing drugs. The presence of fentanyl in the absence of norfentanyl suggests placemen t of fentanyl directly into the urine specimen rather than ingestion. Cutoff = 1 ng/mL. U Buprenorphine Lvl 478.1 (H) <=4.9 ng/mL [facility] Comment: Buprenorphine is not recognized as a met abolite of other opioids and its presence indicates the use of buprenorph ine or combination products such as Suboxone??. Patients taking a low dose o f buprenorphine may be compliant despite a buprenorphine result below the limit o f detection. Cutoff = 5 ng/mL. U EDDP+ Lvl <4.0 <=3.9 ng/mL [facility] Comment: EDDP+ is a metabolite of methadone. The presence of EDDP+ indicates use of methadone. Cutoff = 4 ng/mL. U Methadone Lvl <4.0 <=3.9 ng/mL [facility] Comment: Methadone is not recognized as a metabol ite of other opioids and its presence indicates the use of methadone-containin g drugs. The presence of methadone in the absence of EDDP+ suggests placement of methadone directly into the urine specimen rather than ingestion. Cutoff = 4 ng/mL. Opioid Panel Interp See Comment [facility] Comment: This test was performed using liquid chr omatography tandem mass spectrometry (LC-MS/MS). This test was developed and its performance characteristics determined by the Department of Patholog y and Laboratory Medicine at [facility]. It h as not been cleared or approved by the FDA. The laboratory is regulated under [place] as qualified to perform high-complexity testing. This test is us ed for clinical purposes and should not be used for investigational or research purposes. For any interpretation questions, please contact the laboratory at [phone]. Specimen Anatomical Collection Method Collection Time Receive d Time (Source) Location / / Volume Laterality Urine specimen 02/02/2020 2:02 PM 020 7:14 (specimen) EST AM EST Resulting Agency Comment Spec In Lab Andrey Pedro MD URINE ORDERABLES Performing Organization Address City/State/[place] [address] Rapid Drug Screen, Compliance Monitoring (02/02/2020 2:02 PM EST) [facility] Method Time Signature U Barbiturates None None [facility] Screen Detected Detected [facility] Comment: The barbiturate screen detects barbitura lauro at concentrations >200 ng/mL. Note: Not all barbiturates cross-react equally with antibody used in this screen. A ? Presumptive Positive? result indicates that the screening result was positive but has not yet been confirmed by a highly-specific method. As with any screen, occasional false positive re sults from cross-reacting substances may occur. Not for Medico-Legal Purposes. U Benzodiazepines Screen None Detected None Detected [facility] Comment: The benzodiazepines screen detects benzo diazepines at concentrations >100 ng/mL. Not all benzodiazepines cross-traci ct equally with antibody used in this screen. Due to the low dosage of clonaze michelle, false negatives may be obtained due to low concentration of clonazepam m etabolites. A ? Presumptive Positive? result indicates that the screening result was positive but has not yet been confirmed by a highly-specific method. As with any screen, occasional false positive re sults from cross-reacting substances may occur. Not for Medico-Legal Purposes. U Cocaine Screen None Detected None Detected [facility] Comment: The cocaine metabolites screen detects b enzoylecgonine (Cocaine Metabolite) at concentrations >150 ng/mL. A ? Presumptive Positive? result indicates that the screening result was positive but has not yet been confirmed by a highly-specific method. As with any screen, occasional false positive re sults from cross-reacting substances may occur. Not for Medico-Legal Purposes. U Cannabinoid Screen None Detected None Detected Pippa [facility] Comment: The marijuana metabolites screen detects the THC metabolite (38-njb-4-carboxy-delta 9-THC) at concen trations >20 ng/mL. A ? Presumptive Positive? result indicates that the screening result was positive but has not yet been confirmed by a highly-specific method. As with any screen, occasional false positive re sults from cross-reacting substances may occur. Not for Medico-Legal Purposes. U Tricyclics Screen None Detected None Detected KELLI MARQUIS [facility] Comment: The tricyclics screen detects tricyclic antidepressants at concentrations >150 ng/mL. Not all tricyclics cross-react eq ually with the antibody used in this screen. A ? Presumptive Positive? result indicates that the screening result was positive but has not yet been confirmed by a highly-specific method. As with any screen, occasional false positive re sults from cross-reacting substances may occur. Not for Medico-Legal Purposes. U Ethanol Screen None Detected None Detected [facility] Comment: This urine ethanol assay detect s ethanol at concentrations >/= 100 mg/L. U Amphetamines Screen None Detected None Detected [facility] Comment: The amphetamine screen detects d-ampheta mine and d-methamphetamine at concentrations >300 ng/mL. A ? Presumptive Positive? result indicates that the screening result was positive but has not yet been confirmed by a highly-specific method. As with any screen, occasional false positive re sults from cross-reacting substances may occur. Not for Medico-Legal Purposes. U Adulterants Screen None Detected None Detected Pippa [facility] Comment: No adulteration or dilution of this urin e sample was detected. All urine samples submitted for urine drugs of abu se analysis are tested for creatinine concentration, pH, and for the presence of oxidants, nitrites, and chromate. Specimen Anatomical Collection Method Collection Time Receive d Time (Source) Location / / Volume Laterality Urine specimen 02/02/2020 2:02 PM 020 (specimen) EST 10:23 PM EST Resulting Agency Comment Spec In Lab Andrey Pedro MD URINE ORDERABLES Performing Organization Address City/State/[place] [address] documented in this encounter Visit Diagnoses Diagnosis Opioid use disorder documented in this encounter Care Teams Unix System Administrator Relationship Specialty Start Date End Date Genet Holland PA PCP - General Family Medicine 02/06/19 05/15/20 [address] [place] [address] documented as of this encounter
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
--- OUTSIDE RECORDS SUMMARY | 2021-10-20 07:55 | XMS_ITS | Encounter Summary ---
:1985 Author Organization [facility] [place] [place] [address] Care Team Providers Name Role Phone Autumn Krishnan APRN Primary Care Provider [phone] Encounter Details Date Type Department Care Team Description 09/28/2020 Orders Only Gastroenterology at [facility] Francis Roberts Chronic hepatitis C [facility] Celia Das [place] [address] [facility] [phone] [place] [address] Social History Tobacco Use Types Packs/Day Years [...] Associated Recent Patient-Stated? Author Type Problems Progress Home Medication Patient On track Yes Leigh , Compliance and Facing (10/12/2020 Rita Dumas, Understanding Action Plan 9:07 AM EDT) [facility] Note: Formatting of this note might be d ifferent from the original. SVR12 through treatment with Mavyret x 8 weeks documented as of this encounter Visit Diagnoses Diagnosis Chronic hepatitis C without hepatic coma documented in this encounter Care Teams Manager Medicaid Relationship Specialty Start Date End Date Autumn Krishnan APRN PCP - General 05/16/20 [address] [place] [address] documented as of this encounter
--- OUTSIDE RECORDS SUMMARY | 2021-10-20 07:55 | XMS_ITS | Encounter Summary ---
:1985 Author Organization [facility] [place] [address] Care Team Providers Name Role Phone Autumn Krishnan APRN Primary Care Provider [phone] Reason for Visit Reason Onset Date Comments Medication Refill 09/08/2020 Encounter Details Date Type Department Care Team Description 09/08/2020 Refill Gastroenterology at [facility] Francis Roberts, Chronic hepatitis C [facility] Celia gutierrez [place] [address] [facility] [phone] [place], [place] [address] Social History Tobacco Use Types Packs/Day Years [...] coma documented in this encounter Care Teams Reports Developer Relationship Specialty Start Date End Date Autumn Krishnan APRN PCP - General 05/16/20 [place] [address] documented as of this encounter
--- OUTSIDE RECORDS SUMMARY | 2021-10-20 07:55 | XMS_ITS | Encounter Summary ---
:1985 Author Organization [facility] [place] [address] Care Team Providers Name Role Phone Autumn Krishnan APRN Primary Care Provider [phone] Encounter Details Date Type Department Care Team Description 10/04/2020 Refill Gastroenterology at [facility] Francis Roberts MD [facility] [address] [place] [address] [phone] (Wo rk) Social History Tobacco Use Types [...] Dumas, Understanding Action Plan 9:07 AM EDT) [facility] Note: Formatting of this note might be d ifferent from the original. SVR12 through treatment with Mavyret x 8 weeks documented as of this encounter Visit Diagnoses Not on filedocumented in this encounter Care Teams Hebrew Cantor Relationship Specialty Start Date End Date Autumn Krishnan APRN PCP - General 05/16/20 [address] [place] [id number] documented as of this encounter
--- OUTSIDE RECORDS SUMMARY | 2021-10-20 07:55 | XMS_ITS | Encounter Summary ---
:1985 Author Organization [facility] [place] [address] Care Team Providers Name Role Phone Autumn Krishnan APRN Primary Care Provider [phone] Encounter Details Date Type Department Care Team Description 06/18/2020 Hospital Encounter Laboratory [place] [address] Social History Tobacco Use Types Packs/Day [...] (NICODERM CQ) 14 Change 1 patch on 28 patch 3 mg/24 hr Patch 24 hr [...] Take 3 tablets by 90 tablet 2 06/202007/07/2020 Tablet mouth daily. buprenorphine-naloxone Place 16 mg of 56 each 0 07/07/2020 (SUBOXONE) 8-2 mg Film opiate under the tongue daily. traZODone (Desyrel) 50 mg Take 1 tablet by 30 tablet 2 03/0809/07/2020 Tablet mouth nightly as needed for Sleep. gabapentin (Neurontin) Take 100 mg by 0 [...] Date/Time Associated Comments Diagnosis OPIOIDS CONFIRMATION Routine 06/18/2020 11:15 Opioid use disor mario Results for this PANEL, URINE AM EDT procedure are i n the results section. [facility] NOVEL Routine 06/18/2020 11:15 Opioid use disorder Resu lts for this PSYCHOACTIVE AM EDT procedure are i n SUBSTANCES (DOCKET SPECIALIST) the results SCREEN 1, URINE section. RAPID DRUG SCREEN, Routine 06/18/2020 11:15 Opioid use disorde r Results for this COMPLIANCE MONITORING AM EDT proced ure are in the results section. URINE DRUG SCREEN Routine 06/18/2020 11:15 Opioid use disor mario BY INSTRUMENT AM EDT THC (MARIJUANA), Routine 06/18/2020 11:15 Results for this URINE, CONFIRMATION AM EDT procedur e are in the results section. documented in this encounter Results THC (Marijuana), Urine Confirmation (06/18/2020 11:15 AM EDT) Component Value Ref Test Analysis Performed At [facility] Method Time Signature U THC Conf COLEEN Test ? Result ?Flag ??Unit ?? RefValue [facility] Carboxy-THC Confirmation, Therese JOHNSON ??Carboxy-THC- by GC/MS ?462 ? ng/mL ??Cutoff: 3.0 LABORATORY ??Carboxy-THC Interpretation ? Positive. ? ADDITIONAL INFORMATION ------ ?This report is intended for use in clinical monitoring and ?management of patients. ??It is not intended for use i n ?employment-related testing. ?This test was developed and its performance characteri stics ?determined by [facility] in a manner consistent with CLIA ?requirements. This test has not been cleared or approv ed by ?the U.S. Food and Drug Administration. ?Test Performed by: ?[facility] ?[address] [place] [address] ?Named Account Executive: Magdaleno Henriquez M.D. Ph.D.; CLIA# [id number] Specimen Anatomical Collection Method Collection Time Receive d Time (Source) Location / / Volume Laterality Urine 06/18/2020 11:15 06/21/2020 AM EDT 12:33 PM EDT Resulting Agency Comment Spec In Lab Namita Moran MD URINE ORDERABLES Performing Organization Address City/State/[place] [address] (ABNORMAL) Opioids Confirmation Panel, Urine (06/18/2020 11:15 AM EDT) P athologist Signature U Morphine Lvl <10.0 <=9.9 [facility] ng/mL [facility] Comment: The presence of morphine may [...] ng/mL. U Oxymorphone Lvl <10.0 <=9.9 ng/mL [facility] Comment: Oxymorphone may arise from the use of ox ymorphone-containing drugs or by metabolism of oxycodone. Cutoff = 10 ng/ mL. U Hydromorphone Lvl <10.0 <=9.9 ng/mL [facility] Comment: Hydromorphone may arise from the use of hydromorphone-containing drugs or by metabolism of morphine. Cutoff = 10 ng/m L. U Dihydrocodeine Lvl <10.0 <=9.9 ng/mL [facility] Comment: Dihydrocodeine may arise from the use of dihydrocodeine-containing drugs or by metabolism of hydrocodone (minor metabol ite). Cutoff = 10 ng/mL. U Naloxone Lvl >1000.0 (H) <=4.9 ng/mL [facility] Comment: Naloxone is not recognized as a metaboli te of other opioids and its presence indicates the use of naloxone or naloxon e-containing products such as Suboxone??. Patients taking a low dose o f naloxone may be compliant despite a naloxone result below the limit of detec tion. Cutoff = 5 ng/mL. U Codeine Lvl <10.0 <=9.9 ng/mL [facility] Comment: Codeine is not a recognized [...] ng/mL. U Noroxycodone Lvl <10.0 <=9.9 ng/mL [facility] Comment: Noroxycodone is a metabolite of oxycodon e and its presence indicates oxycodone use. Cutoff = 10 ng/mL. U Oxycodone Lvl <5.0 <=4.9 ng/mL [facility] Comment: Oxycodone is not a recognized metabolite of other opioids and its presence indicates use of an oxycodone-containing drug. Oxycodone is metabolized to oxymorphone and noroxycodone. The presen ce of oxycodone in the absence of its metabolites (noroxycodone, oxymorphone) suggests placement of oxycodone directly into the urine specimen rather than ingestion. Cutoff = 5 ng/mL. U 6-SAUL Lvl <5.0 <=4.9 ng/mL [facility] Comment: 6-SAUL: The presence of 6-monoacetylmorph ine (6-SAUL) indicates heroin use. 6-SAUL is metabolized to morphine. Cutoff = 5 n g/mL. U Norhydrocodone Lvl <10.0 <=9.9 ng/mL [facility] Comment: Norhydrocodone is the major met abolite of hydrocodone. Cutoff = 10 ng/mL. U O-Desmethyltramadol Lvl <25.0 <=24.9 ng/mL [facility] Comment: O-desmethyltramadol is a metabolite of t ramadol and its presence indicates tramadol use. Cutoff = 25 ng/mL. U Hydrocodone Lvl <10.0 <=9.9 ng/mL [facility] Comment: Hydrocodone may arise from the use of hy drocodone-containing drugs or by metabolism of codeine. When generated by the metabolism of codeine, the concentration of hydrocodone is typicall y less than the concentration of codeine. Hydrocodone is metabolized to n orhydrocodone, dihydrocodeine, and hydromorphone (minor metabolite). Cutoff = 10 ng/mL. U Norfentanyl Lvl 1.2 (H) <=0.9 ng/mL [facility] Comment: Norfentanyl is a metabolite of fentanyl and its presence indicates fentanyl use. Cutoff = 1 ng/mL. U Tramadol Lvl <25.0 <=24.9 ng/mL [facility] Comment: Tramadol is not recognized as a metaboli te of other opioids and its presence indicates the use of tramadol-containing drugs. The presence of tramadol in the absence of O-desmethyltramadol suggests placement of tramadol directly into the urine specimen rather than ingestion. Cu toff = 25 ng/mL. U Norbuprenorphine Lvl >1000.0 (H) <=4.9 ng/mL [facility] Comment: Norbuprenorphine is a metabolite of bupr enorphine and its presence indicates use of buprenorphine or combination prod ucts such as Suboxone??. Cutoff = 5 ng/mL. U Fentanyl Lvl <1.0 <=0.9 ng/mL [facility] Comment: Fentanyl is not recognized as a metaboli te of other opioids and its presence indicates the use of fentanyl-containing drugs. The presence of fentanyl in the absence of norfentanyl suggests placemen t of fentanyl directly into the urine specimen rather than ingestion. Cutoff = 1 ng/mL. U Buprenorphine Lvl >1000.0 (H) <=4.9 ng/mL [facility] Comment: Buprenorphine is not recognized as a met abolite of other opioids and its presence indicates the use of buprenorph ine or combination products such as Suboxone??. Patients taking a low dose o f buprenorphine may be compliant despite a buprenorphine result below the limit o f detection. Cutoff = 5 ng/mL. U EDDP+ Lvl <50.0 <=49.9 ng/mL [facility] Comment: EDDP+ is a metabolite of methadone. The presence of EDDP+ indicates use of methadone. Cutoff = 50 ng/mL. U Methadone Lvl <50.0 <=49.9 ng/mL [facility] Comment: Methadone is not recognized as a metabol ite of other opioids and its presence indicates the use of methadone-containin g drugs. The presence of methadone in the absence of EDDP+ suggests placement of methadone directly into the urine specimen rather than ingestion. Cutoff = 50 ng/mL. Opioid Panel Interp See Comment [facility] Comment: This test was performed using liquid chr omatography tandem mass spectrometry (LC-MS/MS). This test was developed and its performance characteristics determined by the Department of Patholog y and Laboratory Medicine at [facility]. It h as not been cleared or approved by the FDA. The laboratory is regulated under [place] as qualified to perform high-complexity testing. This test is us ed for clinical purposes and should not be used for investigational or research purposes. For any interpretation questions, please contact the laboratory at [phone]. Specimen Anatomical Collection Method Collection Time Receive d Time (Source) Location / / Volume Laterality Urine 06/18/2020 11:15 06/21/2020 7:23 AM EDT AM EDT Resulting Agency Comment Spec In Lab Namita Moran MD URINE ORDERABLES Performing Organization Address City/State/[place] [address] (ABNORMAL) Rapid Drug Screen, Compliance Monitoring (06/18/2020 11:15 AM EDT) [facility] Method Time Signature U Barbiturates None None [facility] Screen Detected Detected [facility] Comment: The barbiturate screen detects barbitura [...] U Benzodiazepines Screen None Detected None Detected [facility] Comment: The benzodiazepines screen detects benzo [...] U Cocaine Screen None Detected None Detected [facility] Comment: The cocaine metabolites screen detects b enzoylecgonine (Cocaine Metabolite) at concentrations >150 ng/mL. A ? Presumptive Positive? result indicates that the screening result was positive but has not yet been confirmed by a highly-specific method. As with any screen, occasional false positive re sults from cross-reacting substances may occur. Not for Medico-Legal Purposes. U Cannabinoid Screen Presumptive Pos (A) None Detected [facility] Comment: The marijuana metabolites screen detects the THC metabolite (59-kgq-9-carboxy-delta 9-THC) at concen trations >20 ng/mL. A ? Presumptive Positive? result indicates that the screening result was positive but has not yet been confirmed by a highly-specific method. As with any screen, occasional false positive re sults from cross-reacting substances may occur. Not for Medico-Legal Purposes. U Tricyclics Screen None Detected None Detected [facility] Comment: The tricyclics screen detects tricyclic [...] U Ethanol Screen None Detected None Detected [facility] Comment: This urine ethanol assay detect s ethanol at concentrations >/= 100 mg/L. U Amphetamines Screen None Detected None Detected [facility] Comment: The amphetamine screen detects d-ampheta mine and d-methamphetamine at concentrations >300 ng/mL. A ? Presumptive Positive? result indicates that the screening result was positive but has not yet been confirmed by a highly-specific method. As with any screen, occasional false positive re sults from cross-reacting substances may occur. Not for Medico-Legal Purposes. U Adulterants Screen None Detected None Detected [facility] Comment: No adulteration or dilution of this urin e sample was detected. All urine samples submitted for urine drugs of abu se analysis are tested for creatinine concentration, pH, and for the presence of oxidants, nitrites, and chromate. Specimen Anatomical Collection Method Collection Time Receive d Time (Source) Location / / Volume Laterality Urine specimen 06/18/2020 11:15 9:27 (specimen) AM EDT PM EDT Resulting Agency Comment Spec In Lab Namita Moran MD URINE ORDERABLES Performing Organization Address City/[facility]/[place] [address] Novel Psychoactive Substances, Urine (06/18/2020 11:15 AM EDT) [facility] gist Method Time Signature U DOCKET SPECIALIST Screen See Scan [facility] Comment: Test performed by [employer], [address] [place] [address] Specimen Anatomical Collection Method Collection Time Receive d Time (Source) Location / / Volume Laterality Urine 06/18/2020 11:15 06/21/2020 1:42 AM EDT PM EDT Narrative This result has an attachment that is no t available. Resulting Agency Comment Spec In Lab Namita Moran MD URINE ORDERABLES Performing Organization Address City/[facility]/[place] [address] documented in this encounter Visit Diagnoses Diagnosis Opioid use disorder documented in this encounter Care Teams Hyperbaric Nurse Relationship Specialty Start Date End Date Autumn Krishnan APRN PCP - General 05/16/20 [place] [address] documented as of this encounter
--- OUTSIDE RECORDS SUMMARY | 2021-10-20 07:55 | XMS_ITS | Encounter Summary ---
:1985 Author Organization [facility] [place] [address] Care Team Providers Name Role Phone Autumn Krishnan APRN Primary Care Provider [phone] Encounter Details Date Type Department Care Team Description 11/18/2020 Orders Only Gastroenterology at [facility] Talya Spaulding, [place] [address] Social History Tobacco Use Types Packs/Day [...] Leigh , Antony and Facing (10/12/2020 Rita Dumas Understanding Action Plan 9:07 AM EDT) [facility] Note: Formatting of this note might be d ifferent from the original. SVR12 through treatment with Mavyret x 8 weeks documented as of this encounter Visit Diagnoses Not on filedocumented in this encounter Care Teams Motor Brakeman Relationship Specialty Start Date End Date Autumn Krishnan APRN PCP - General 05/16/20 [place] [address] documented as of this encounter
--- OUTSIDE RECORDS SUMMARY | 2021-10-20 07:55 | XMS_ITS | Encounter Summary ---
:1985 Author Organization [facility] [place] [address] Care Team Providers Name Role Phone Genet Holland Primary Care Provider Encounter Details Date Type Department Care Team Description 01/09/2020 Hospital Encounter Laboratory [place] [address] Social History Tobacco Use Types Packs/Day [...] times daily. PowderIndications: Constipation, unspecified constipation type buprenorphine-naloxone Place 16 mg of 56 each 0 0 01/21/2020 (SUBOXONE) 8-2 mg Film opiate under the tongue daily. gabapentin (Neurontin) Take 100 mg by 0 09/07/2020 100 mg Capsule mouth 3 times daily. labetaloL (Normodyne) 100 take 1 tablet by 60 tablet 0 09/0709/07/2020 mg Tablet mouth twice a day FLUoxetine (PROzac) 20 mg Take 3 tablets by 90 tablet 2 01/23/2020 Tablet mouth daily. Plus, calcium Take 1 tablet by 90 tablet 3 020 09/15/2020 carb, 27 mg iron- 1 mg mouth daily. Tablet documented as of this encounter Plan of Treatment Not on filedocumented as of this encounter Procedures Procedure Name Priority Date/Time Associated Comments Diagnosis OPIOIDS CONFIRMATION Routine 01/09/2020 10:30 Opioid use disor mario Results for this PANEL, URINE AM EST procedure are i n the results section. documented in this encounter Results (ABNORMAL) Opioids Confirmation Panel, Urine (01/09/2020 10:30 AM EST) P athologist Signature U Morphine Lvl <10.0 <=9.9 [facility] ng/mL [facility] Comment: The presence of [...] ng/mL. U Oxymorphone Lvl <10.0 <=9.9 ng/mL [facility] Comment: Oxymorphone may arise from the use of ox ymorphone-containing drugs or by metabolism of oxycodone. Cutoff = 10 ng/ mL. U Hydromorphone Lvl <10.0 <=9.9 ng/mL [facility] Comment: Hydromorphone may arise from the use of hydromorphone-containing drugs or by metabolism of morphine. Cutoff = 10 ng/m L. U Dihydrocodeine Lvl <10.0 <=9.9 ng/mL [facility] Comment: Dihydrocodeine may arise from the use of dihydrocodeine-containing drugs or by metabolism of hydrocodone (minor metabol ite). Cutoff = 10 ng/mL. U Naloxone Lvl >1000.0 (H) <=4.9 ng/mL [facility] Comment: Naloxone is not recognized as a metaboli te of other opioids and its presence indicates the use of naloxone or naloxon e-containing products such as Suboxone??. Patients taking a low dose o f naloxone may be compliant despite a naloxone result below the limit of detec tion. Cutoff = 5 ng/mL. U Codeine Lvl <10.0 <=9.9 ng/mL [facility] Comment: Codeine is not a [...] ng/mL. U Noroxycodone Lvl <10.0 <=9.9 ng/mL [facility] Comment: Noroxycodone is a metabolite of oxycodon e and its presence indicates oxycodone use. Cutoff = 10 ng/mL. U Oxycodone Lvl <5.0 <=4.9 ng/mL [facility] Comment: Oxycodone is not [...] Comment: 6-SAUL: The presence of 6-monoacetylmorph ine (6-SUAL) indicates heroin use. 6-SAUL is metabolized to morphine. Cutoff = 5 n g/mL. U Norhydrocodone Lvl <10.0 <=9.9 ng/mL [facility] Comment: Norhydrocodone is the major met abolite of hydrocodone. Cutoff = 10 ng/mL. U O-Desmethyltramadol Lvl <4.0 <=3.9 ng/mL [facility] Comment: O-desmethyltramadol is a metabolite of t ramadol and its presence indicates tramadol use. Cutoff = 4 ng/mL. U Hydrocodone Lvl <10.0 <=9.9 ng/mL [facility] Comment: Hydrocodone may arise from the use of hy drocodone-containing drugs or by metabolism of codeine. When generated by the metabolism of codeine, the concentration of hydrocodone is typicall y less than the concentration of codeine. Hydrocodone is metabolized to n orhydrocodone, dihydrocodeine, and hydromorphone (minor metabolite). Cutoff = 10 ng/mL. U Norfentanyl Lvl <1.0 <=0.9 ng/mL [facility] Comment: Norfentanyl is a metabolite of fentanyl and its presence indicates fentanyl use. Cutoff = 1 ng/mL. U Tramadol Lvl <4.0 <=3.9 ng/mL [facility] Comment: Tramadol is not recognized as a metaboli te of other opioids and its presence indicates the use of tramadol-containing drugs. The presence of tramadol in the absence of O-desmethyltramadol suggests placement of tramadol directly into the urine specimen rather than ingestion. Cu toff = 4 ng/mL. U Norbuprenorphine Lvl >1000.0 (H) <=4.9 ng/mL [facility] Comment: Norbuprenorphine is a metabolite of bupr enorphine and its presence indicates use of buprenorphine or combination prod ucts such as Suboxone??. Cutoff = 5 ng/mL. U Fentanyl Lvl <1.0 <=0.9 ng/mL [facility] Comment: Fentanyl is not recognized as a metaboli te of other opioids and its presence indicates the use of fentanyl-containing drugs. The presence of fentanyl in the absence of norfentanyl suggests placemen t of fentanyl directly into the urine specimen rather than ingestion. Cutoff = 1 ng/mL. U Buprenorphine Lvl 965.5 (H) <=4.9 ng/mL [facility] Comment: Buprenorphine is not recognized as a met abolite of other opioids and its presence indicates the use of buprenorph ine or combination products such as Suboxone??. Patients taking a low dose o f buprenorphine may be compliant despite a buprenorphine result below the limit o f detection. Cutoff = 5 ng/mL. U EDDP+ Lvl <2.0 <=1.9 ng/mL [facility] Comment: EDDP+ is a metabolite of methadone. The presence of EDDP+ indicates use of methadone. Cutoff = 2 ng/mL. U Methadone Lvl <2.0 <=1.9 ng/mL [facility] Comment: Methadone is not recognized as a metabol ite of other opioids and its presence indicates the use of methadone-containin g drugs. The presence of methadone in the absence of EDDP+ suggests placement of methadone directly into the urine specimen rather than ingestion. Cutoff = 2 ng/mL. Opioid Panel Interp See Comment [facility] Comment: This test was performed using liquid chr omatography tandem mass spectrometry (LC-MS/MS). This test was developed and its performance characteristics determined by the Department of Patholog y and Laboratory Medicine at [facility]. It h as not been cleared or approved by the FDA. The laboratory is regulated under [place] as qualified to perform high-complexity testing. This test is us ed for clinical purposes and should not be used for investigational or research purposes. For any interpretation questions, please contact the laboratory at [phone]. Specimen Anatomical Collection Method Collection Time Receive d Time (Source) Location / / Volume Laterality Urine specimen 01/09/2020 10:30 0 7:42 (specimen) AM EST AM EST Resulting Agency Comment Spec In Lab Namita Moran MD URINE ORDERABLES Performing Organization Address City/State/Z[place] [address] documented in this encounter Visit Diagnoses Diagnosis Opioid use disorder documented in this encounter Care Teams Industrial Engineering Technician Relationship Specialty Start Date End Date Genet Holland PA PCP - General Family Medicine 02/06/19 05/15/[address] [place] [id number] documented as of this encounter
--- OUTSIDE RECORDS SUMMARY | 2021-10-20 07:55 | XMS_ITS | Encounter Summary ---
:1985 Author Organization [facility] [place] [address] Care Team Providers Name Role Phone Alexander Krishnanssica ISHAAN Primary Care Provider [phone] Reason for Visit Reason Comments Medication Management Patient Education Encounter Details Date Type Department Care Team Description 09/15/2020 Specialty Pharmacy Pharmacy at [facility] [place] Rita Abraham Medication [facility]; [place] [address] Social History Tobacco Use Types Packs/Day Years Used Date Current Every Day Smoker Cigarettes 1 Smokeless Tobacco: Never Used Alcohol Use Standard Drinks/Week Comments No 0 (1 standard drink = 0.6 oz pure alcoho l) Not during Sex Assigned at Date Recorded Female 04/13/2020 8:26 AM EST documented as of this encounter Progress Notes Rita Abraham RP - 09/15/2020 3:36 PM EDT Specialty Pharmacy Consultation; Rita Abraham [facility]ication [facility] (CMM) Shirlene Kovacs Diagnosis: HCV Therapy Start Date: TBD - new start Contact in person or via telephone: telephone Ms. Shirlene Kovacs is a 35 y.o. (1985) female who was contacted in regard to specialty medication. Spoke with patient regarding MAVYRET. A review of the medication therapy was performed. The medication was Filled as scheduled, and all medication related questions and concerns were addressed. [facility] follow up with the patient around day 3 of therapy to assess tolerability and adherence. Is the patient willing to proceed with the Clinical Assessment? Yes Summary and Recommendations: Shirlene Piter Kovacs was contacted regarding approval of Hepatitis C treatment with Mavyret. We discussedthe medication and treatment process in detail and at length for approximately one hour. She understands to take 3 tablets once daily with food, at the same time each day for a total of 8 weeks. The importance of adherence was stressed, and I recommended a phone alarm reminder to help with adherence. Medications were reconciled. I found norgestimate-ethinyl estradiol on her dispense list but norethindrone was on her active medication list. She thinks she is taking norethindrone but she did not havethe medication with her to confirm. I explained that Mavyret is contraindicated with ethinyl estradiol and I cannot dispense the medication until she calls me back with exactly which control pillshe is taking. She denies and breast feeding. We reviewed common side effects and mitigation strategies, as well as the lab schedule. She only needs labs done 12 weeks after treatment ends for assessment of cure. She would like the medication shipped to her. Once she confirms her control medication I will dispense the medication as long as she's not taking the ethinyl estradiol. She was asked to notify us when she starts so we can follow-up accordingly. She texted the entire consult to her mother who I spoke with shortly after I got off the phone with Shirlene. Shirlene was able to repeat the important points back to me as she read them off of her phone. Clinic Follow-up needed: yes - SVR12 labs; preferred lab is [facility]. Patient needs to confirm exactly which control she is taking before I can dispense the Mavyret Allergies and Drug intolerance: Allergies Allergen Reactions ??? Chantix [Varenicline] Seizure ??? Duloxetine Hcl ??? Laxative X-Lax ??? Phenolphthalein Other reaction(s): SEIZURES ??? Varenicline Tartrate Other reaction(s): seizure Nausea/Vomiting Problem List: Patient Active Problem List Diagnosis Code ??? [...] in hospital, delivered by vaginal delivery Z38.00 Special Dietary or Hydration Requirements: yes - must take Mavyret with food There is no height or weight on file to calculate BMI. Medication Reconciliation Discrepancies (compared to [facility] med list) -removed pre-clara vitamin -removed duplicate levothyroxine Medication Adherence Demonstrates understanding of importance of adherence: yes Informant: patient Reliability of informant: reliable Provider-estimated medication adherence level: 90-100% Reasons for non-adherence: no problems identified Adherence tools used: directed education Support network for adherence: family member, healthcare provider Confirmed plan for next specialty medication refill: delivery by pharmacy Refills needed for supportive medications: not needed Medication List: Current Outpatient Medications Medication Sig Dispense Refill ??? glecaprevir-pibrentasvir (Mavyret) 100-40 mg Tablet Take 3 tablets by mouth daily. 84 tablet 1 ??? buprenorphine-naloxone (SUBOXONE) 8-[address] 16 mg of opiate under the tongue daily. 28 each 0 ??? FLUoxetine (PROzac) 20 mg Tablet Take 4 tablets by mouth daily. 120 tablet 2 ??? ibuprofen (Advil;Motrin) 600 mg Tablet Take 1 tablet by mouth every 6 hours as needed for Pain. 30 tablet 12 ??? norethindrone (MICRONOR) 0.35 mg Tablet Take 1 tablet by mouth daily. (Patient not taking: Reported on 06/28/2020) 84 tablet 3 ??? nicotine (NICODERM CQ) [...] mouth 2 times daily. 510 g 5 No current facility-administered medications for this visit. Most Recent Vitals: Ht Readings from Last 1 Encounters: 06/28/20 175.3 cm (5' 9) Wt Readings from Last 3 Encounters: 06/28/20 89 kg (196 lb 1.6 oz) 11/13/19 88.3 kg (194 lb 11.2 oz) 10/16/19 88.7 kg (195 lb 9.6 oz) Temp Readings from Last 3 Encounters: 10/06/19 36.6 ??C (97.9 ??F) (Oral) 09/21/19 36.5 ??C (97.7 ??F) (Oral) 08/06/19 37 ??C (98.6 ??F) (Oral) BP Readings from Last 3 Encounters: 06/28/20 115/54 11/13/19 (!) 130/92 10/16/19 128/73 Pulse Readings from Last 3 Encounters: 06/28/20 58 11/13/19 82 10/16/19 71 Pertinent Lab values: Lab Results Component Value Date NA 137 09/07/2020 K 4.1 09/07/2020 CL 104 09/07/2020 CO2 22 09/07/2020 BUN 10 09/07/2020 CREATININE 0.70 09/07/2020 GLUCOSE 88 09/07/2020 CALCIUM 9.2 09/07/2020 Lab Results Component Value Date ALT 35 (H) 09/07/2020 AST 29 09/07/2020 ALKPHOS 90 09/07/2020 BILITOT 0.4 09/07/2020 BILIDIR 0.1 09/07/2020 ALBUMIN 4.2 09/07/2020 PROT 7.1 09/07/2020 Lab Results Component Value Date WBC 6.8 09/07/2020 HGB 14.2 09/07/2020 HCT 42.4 09/07/2020 MCV 95.1 (H) 09/07/2020 PLATELET 251 09/07/2020 No results found for: HA1C Immunization History Administered Date(s) Administered ??? Influenza PF, Split 11/25/2014 ??? Tdap Vaccine 09/28/2014, 09/02/2019 Assessment and Recommendations: Title Type of Medication Management: chronic disease management, targeted medication review Referred By: provider Recipient: beneficiary Provider: plan sponsor pharmacist Visit Type: [facility] [place] Method of Contact: by telephone Cognitive Ability: good Cognitive Impairment Status Verified this Year: no Drug Interactions Provided the patient with educational material regarding drug interactions: yes Patient Counseling Counseled the patient on the following: reviewed medication changes since last visit, medication safety precautions education provided, drug interaction education provided to patient, doses and administration discussed, safe handling, storage, and disposal discussed, possible adverse effects and management discussed, possible drug and prescription drug interactions discussed, possible drug and OTC drug and food interactions discussed, lab monitoring and follow-up discussed, use of contraception discussed, therapeutic rationale discussed, cost of medications and cost implications discussed, adherence and missed doses discussed, pharmacy contact information discussed, health goals discussed, monitoring medication discussed, over the counter products discussed, preventative care discussed, recommendations to doctor discussed, reminder to refill or cloth picker medication discussed, self-monitoring discussed, start medication discussed, timing of medications discussed, lifestyle modification education, referral needs discussed Drug Medication Management Summary Topics discussed: reviewed medication changes since last visit, medication safety precautions education provided, drug interaction education provided to patient, doses and administration discussed, safe handling, storage, and disposal discussed, possible adverse effects and management discussed, possible drug and prescription drug interactions discussed, possible drug and OTC drug and food interactions discussed, lab monitoring and follow-up discussed, use of contraception discussed, therapeutic rationale discussed, cost of medications and cost implications discussed, adherence and missed doses discussed, pharmacy contact information discussed, health goals discussed, monitoring medication discussed, over the counter products discussed, preventative care discussed, recommendations to doctor discussed, reminder to refill or cloth picker medication discussed, self-monitoring discussed, start medication discussed, timing of medications discussed, lifestyle modification education, referral needs discussed <div class='h_N<LOWCOLOR>' ><span class='hText'>Iuvms-kch-Zistx</span></di v><table style='paddinpx;' id=MYLASTENOTETBLBTG><tr><td><img src='Assets /Clinical/Ambulatory/IconLibraries/[email or web address]/Default/Default/[email or web address]'></img></td><td style='vertical-align:top; ' class=hRow><table style='paddinpx;' id=MYLASTENOTETBLBTGSUB><tr><td style='padding-left:4px; background-color:#[id number]; border-color:#[id number]; border-width:1px; border- style:solid; color: #[id number]; font-weight:bold;' >Encountersthat might contain data have been deemed confidential and restricted.</td></tr><tr> <td></td></tr></table></td></tr></table> Treatment Outcomes 09/15/2020 9641 Disease progression: Stable Reviewed in detail with patient: Dose appropriateness based on recommended standard dosing Current medication list including OTC medications Medication and disease problems Allergies Comorbid conditions/ Problem List Past adverse events if any Special needs of the patient including physical and cognitive limitations Goals of therapy and management strategies Warnings, precautions, and contraindications Side effects Drug-drug and drug-food interactions Administration instructions including dose, frequency and method Handling, storage, and disposal Verifying expiration dates on products before use Rotating medication inventory to use oldest product first Relevant lab data Treatments impact on disease Dose appropriateness based on recommended standard dosing schedule, including any variations from FDA approved dosing Patient verbalizes understanding and is able to read-back instructions on self-administration/injection, proper storage, drug stability, importance of adherence and management strategies, side effect avoidance and mitigation strategies, and interruptions in therapy: Yes Physical and Cognitive Assessment: Functional limitations identified: no Cognitive limitations identified: no Concern regarding orientation/memory: no Concern with reasoning/judgement: no Is patient a fall risk: no Other needed information: no Social Assessment: Does the patient have a primary daycare worker? no Does the patient have an emergency contact on file: Yes Does patient need referral to social media analyst: No Does patient need referral to advocacy group: No Home Health Assessment: Is the patient in a safe home environment? Yes Is the patient able to store their medication as directed? Yes Does the patient have a support network at home? Yes Reviewed potential home safety hazards with patient: Yes Economic Assessment: Patient is agreeable to medication copay: Yes Copay Amount: $0.00 Day Supply: 28 Date Needed: as soon as possible - new start Copay assistance required: no Therapy Assessment: Current Medication Dosing/Route/Frequency: Mavyret 100-40mg take 3 tablets by mouth once daily x 8 weeks Appropriate Therapy: Yes Genotype: 1a Treatment Naive/Experienced: Naive Fibrosis Score: F0-F1 HX of liver transplant: no HBV Coinfection: no HIV Coinfection: no Patient's Problems/Needs: Treatment of HepC - adherence to medication regimen and lab monitoring schedule Expected Outcome: SVR12 Patient's goals: Patient's specific desired goal: SVR12 Measured by: HepC viral load 12 weeks post-treatment Time-frame to meet goal: 12 weeks post-treatment Care Plan Reviewed and Approved by both Pharmacist and Patient: Yes Interventions (if applicable): Yes - I found norgestimate-ethinyl estradiol on her dispense list butnorethindrone was on her active medication list. She thinks she is taking norethindrone but she did not have the medication with her to confirm. I explained that Mavyret is contraindicated with ethinylestradiol and I cannot dispense the medication until she calls me back with exactly which control pill she is taking. Additional care/services needed: no Educational information or adherence tools provided: Yes HCV therapy adherence: Yes HCV treatment response: Yes Additional equipment/supplies required: no Monitoring requirements for prescribed medication: Monitor efficacy, safety, tolerability Monitor CBC, CMP, HepC viral load week 4, end of treatment, 3 and 6 months post-treatment Patient Counseling: Lab schedule reviewed: Yes Verbalized understanding to call office before start: Yes Pharmacist follow-up needed: Yes Patient Satisfaction with care/services provided: Yes Informed patient of specialty pharmacy services: Yes -Patient will be provided with welcome packet: Yes Date to be provided: TBD Delivery Method: mail -Patient will be provided with Rights & Responsibilities: Yes Date to be provided: TBD Delivery Method: mail -Patient is aware a licensed pharmacist is available 24 hours a day, 7 days a week to discuss medication-related questions or concerns: Yes -Patient verbalizes understanding of the common side effect profile of their medication. The patientis able to call 911 or seek urgent care if signs/symptoms of allergy or harmful adverse reactions occur: Yes Patient Satisfaction with Therapy: yes - no concerns Patient understands no changes to current drug regimen were made at the appointment and that [facility] is providing recommendations (summary located at top of note) for provider review and follow up. Rita Abraham RPH 09/15/20 3:46 PM Rita Abraham RP - 09/15/2020 3:36 PM EDT Shirlene called the specialty pharmacy to report that she is taking [place] (norgestimate-ethinyl estradiol) for control. Mavyret is contraindicated with ethinyl estradiol. She'll need an alternate control (e.g. progesterone only, barrier protection, etc) during Mavyret treatment. Will make provider aware. Once a new plan is in place I will return call to patient with instructions and dispense the Mavyret. Sean Abraham PharmD 09/16/2020 2:07 PM Rita Abraham [facility] - 09/15/2020 3:36 PM EDT Shirlene called me back. She will stop the [place] (norgestimate-ethinyl estradiol) and ask her doctor to change her back to norethindrone which does not interact with Mavyret. She understands that she cannot get while taking Mavyret. I will dispense the Mavyret and she will call me when she starts. Sean Abraham PharmD 09/16/2020 3:04 PM Rita Abraham [facility] - 09/15/2020 3:36 PM EDT Called PCP (Autumn Krishnan) and prescriber of Cl[place]-Linyah (Sanjiv Richter) to relay message about need for change in control. I left messages at both offices. Sean Abraham PharmD 09/16/2020 4:00 PM Rita Abraham [facility] - 09/15/2020 3:36 PM EDT PCP's office returned my call this morning. They were able to get in touch with patient this morningafter trying to reach her for days. Van from PCP's office reported that the patient said that I wascalling Dr. Richter's office to ask him to prescribe the norethindrone and that she was waiting to hear back from me as far as a plan for moving forward. This was not what I had discussed with the patient. The patient was supposed to be calling her doctor to get the control changed. I had left a message at Dr. Richter's office to alert them of the situation. The PCP's office will get in touch with Dr. Richter's office to determine who will be prescribing the new progesterone-only control. Iwill follow up with Shirlene this morning to clarify the plan. Sean Abraham, PharmCelia 09/23/2020 9:22 AM Rita Abraham, [facility] - 09/15/2020 3:36 PM EDT I called Shirlene to touch base about the control and the Mavyret. She reported that Dr. Richter had prescribed the norethindrone and sent the rx to [facility] but the pharmacist at [facility] had told her the norethindrone was also contraindicated with the Mavyret. She said [facility] and then call her back but [facility] I told her I would call [facility] to find out what the issue is and call her back. I called [email or web address] and spoke to the pharmacist. She said that their system had flagged all hepatitis C treatments as being contraindicated with norethindrone because of liver disease but not the medication. Per [employer], Norethindrone is contraindicated in benign or malignant liver tumors and acute liver disease. Shirlene's hepatitis C is chronic and, per her workup, she has minimal to no fibrosis (F0-F1). The [facility] pharmacist called Dr. Richter's office and got the okay from him to dispense the medication. She said she called Shirlene yesterday and left a message telling her that the norethindrone was ready to be picked up. I called Shirlene back and let her know that everything was sorted out and the norethindrone was readyto be picked up at [email or web address]. The patient became tearful. I asked her what was wrong and she replied that she was afraid to take the Mavyret. I told her that it was normal to be nervous about taking a new medication. I reviewed common side effects with her and I assured her that Mavyret is very well tolerated. I reviewed the importance of adherence. We discussed the benefits of treating the HepC and the benefits of it being a short treatment of only 8 weeks. By the end of our conversation she was no longer crying. I told her to reach out to me with any questions or concerns and I asked her to let sarahw when she starts the Mavyret. I called the PCP office back and left a message informing them that everything was resolved and thatCandywilli would be picking up the norethindrone from [facility]. Sean Abraham, PharmCelia 09/23/2020 10:54 AM documented in this encounter Plan of Treatment Not on filedocumented as of this encounter Goals Goal Patient Goal Associated Recent Patient-Stated? Author Type Problems Progress DH Home Medication Patient On track Yes Leigh , Antony and Facing (10/12/2020 Rita Dumas, Understanding Action Plan 9:07 AM EDT) [facility] Note: Formatting of this note might be d ifferent from the original. SVR12 through treatment with Mavyret x 8 weeks documented as of this encounter Visit Diagnoses Not on filedocumented in this encounter Care Teams Grave Digger Relationship Specialty Start Date End Date Autumn Krishnan APRN PCP - General 05/16/20 [place] [address] documented as of this encounter
--- OUTSIDE RECORDS SUMMARY | 2021-10-20 07:55 | XMS_ITS | Encounter Summary ---
:1985 Author Organization 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 [place], [place] [id number] [place] [id number] Fax: Referral ID Status Reason Start Date Expiration Date Visits Requ ested Visits Authorized [id number] Closed 05/20/2020 05/20/2021 1 1 Encounter Details Date Type Department Care Team Description 06/28/2020 Office Visit Gastroenterology at [facility] Francis Roberts No-show for [facility] [place] [address] [facility] [phone] [facility] Social History Tobacco Use Types Packs/Day Years [...] Sign Reading Time Taken Comments Blood Pressure 115/54 06/28/2020 3:21 PM EDT Pulse 58 06/28/2020 3:21 PM EDT Temperature - - Respiratory Rate - - Oxygen Saturation - - Inhaled Oxygen Concentration - - Weight 89 kg (196 lb 1.6 oz) 06/28/2020 3:21 PM EDT Height 175.3 cm (5' 9) 06/28/2020 3:21 PM EDT Body Mass Index 28.96 06/28/2020 3:21 PM EDT documented in this encounter Progress Notes Francis Roberts MD - 06/28/2020 3:00 PM EDT Ruben was late to her appointment which impacted the schedule, and she then decided not to wait untilI was available. She is going to reschedule. documented in this encounter Plan of Treatment Not on filedocumented as of this encounter Visit Diagnoses Diagnosis No-show for appointment documented in this encounter Care Teams Information Technology Administrator Relationship Specialty Start Date End Date Autumn Krishnan APRN PCP - General 05/16/20 [place] [address] documented as of this encounter
--- OUTSIDE RECORDS SUMMARY | 2021-10-20 07:55 | XMS_ITS | Encounter Summary ---
:1985 Author Organization [facility] [place] [address] Care Team Providers Name Role Phone Genet Holland Primary Care Provider Encounter Details Date Type Department Care Team Description 03/25/2020 Telephone Cardiology at [facility] Kami Melchor, [place] [address] Social History Tobacco Use Types Packs/Day Years [...] filedocumented as of this encounter Visit Diagnoses Not on filedocumented in this encounter Care Teams Parts Professional Relationship Specialty Start Date End Date Genet Holland PA PCP - General Family Medicine 02/06/19 05/15/[address] [place] [id number] documented as of this encounter
--- OUTSIDE RECORDS SUMMARY | 2021-10-20 07:55 | XMS_ITS | Encounter Summary ---
:1985 Author Organization [facility] [place] [address] Care Team Providers Name Role Phone Autumn Krishnan APRN Primary Care Provider [phone] Reason for Visit Reason Comments Patient Education Medication Management Medication Refill Encounter Details Date Type Department Care Team Description 10/12/2020 Specialty Pharmacy Pharmacy at [facility] Rita Abraham Patient Education; [facility] [place], [place] Medication Refi [id number] Social History Tobacco Use Types Packs/Day Years Used Date Current Every Day Smoker Cigarettes 1 Smokeless Tobacco: Never Used Alcohol Use Standard Drinks/Week Comments No 0 (1 standard drink = 0.6 oz pure alcoho l) Not during Sex Assigned at Date Recorded Female 04/13/2020 8:26 AM EST documented as of this encounter Progress Notes Rita Abraham [facility] - 10/12/2020 9:00 AM EDT Specialty Pharmacy Consultation; Rita Abraham [facility] Comprehensive Medication Management (CMM) Shirlene Kovacs Diagnosis: HCV Therapy Start Date: 09/24/20 Contact in person or via telephone: telephone Ms. Shirlene Kovacs is a 35 y.o. (1985) female who was contacted in regard to specialty medication. Spoke with patient regarding MAVYRET. A review of the medication therapy was performed. The medication was Refilled as scheduled, and all medication related questions and concerns were addressed. The specialty pharmacy staff will follow up with the patient towards the end of treatment. Is the patient willing to proceed with the Clinical Assessment? Yes Summary and Recommendations: Shirlene Kovacs was contacted regarding her hepatitis C treatment with Mavyret. She has 10 doses remaining of her current supply (including today's dose) which aligns with her start date and her reportof no missed doses throughout the treatment thus far. She's doing excellent with her adherence and Iencouraged her to keep up the great work. She is proud of herself for not missing any doses. She reports that she has been experiencing fatigue, nausea, headaches, loose stools (1-2 BMs per day), and decreased appetitie. She confirmed that she is taking the Mavyret with a meal despite her decreased appetite. She reports that she is not staying well hydrated and is drinking rootbeer instead ofwater. She said when she does drink water she feels better. I encouraged her to make an effort to increase her water intake. She has not picked up her Zofran from the pharmacy yet because she didn't realize it was ready. She was glad it is at the pharmacy and will pick it up today. She has taken Zofran in the past and it has helped her. She takes the 3 tablets of Mavyret all at once with food at around 7pm every day. She understands the importance of adherence. She reports no changes in allergies, medications or medical conditions. I reminded her that she should throw away her nail clippers, razor, and toothbrush after she finishes 4weeks of treatment. We are refilling the Mavyret and mailing it out to her. No recommendations at this time. Clinic Follow-up needed: yes - SVR12 due 02/11/21. Preferred lab is [facility]. Allergies and Drug intolerance: Allergies Allergen Reactions [...] delivered by vaginal delivery Z38.00 Special Dietary Requirements: yes - must take Mavyret with food There is no height or weight on file to calculate BMI. Medication Reconciliation Discrepancies (compared to [facility] med list) -none Medication Adherence Patient reported X missed doses in the last month: 0 Any gaps in refill history greater than 2 weeks in the last 3 months: no Demonstrates understanding of importance of adherence: yes Informant: patient Reliability of informant: reliable Provider-estimated medication adherence level: 90-100% Reasons for non-adherence: no problems identified Adherence tools used: alarm, calendar, directed education Support network for adherence: family member, healthcare provider Confirmed plan for next specialty medication refill: delivery by pharmacy Refills needed for supportive medications: not needed Medication List: Current Outpatient Medications Medication Sig Note Dispense Refill ??? ondansetron (Zofran) 4 mg Tablet Take 1 tablet by mouth every 8 hours as needed for Nausea. 20 tablet 0 ??? glecaprevir-pibrentasvir (Mavyret) 100-40 mg Tablet Take 3 tablets by mouth daily. 09/27/2020: Start date: 09/24/20 Duration: 8 weeks 84 tablet 1 ??? buprenorphine-naloxone (SUBOXONE) 8-2 [...] beneficiary Provider: plan sponsor pharmacist Visit Type: [facility] Follow-up Method of Contact: by telephone Cognitive Ability: good Cognitive Impairment Status Verified this Year: no Drug Interactions Provided the patient with educational material regarding drug interactions: yes Patient Counseling Counseled the patient on the following: reviewed medication changes since last visit, medication safety precautions education provided, drug interaction education provided to patient, doses and administration discussed, possible adverse effects and management discussed, possible drug and prescription drug interactions discussed, possible drug and OTC drug and food interactions discussed, lab monitoring and follow-up discussed, use of contraception discussed, adherence and missed doses discussed, pharmacy contact information discussed, monitoring medication discussed, over the counter products discussed, preventative care discussed, reminder to refill or slat pickler medication discussed, timing of medications discussed, referral needs discussed Drug Medication Management Summary Topics discussed: reviewed medication changes since last visit, medication safety precautions education provided, drug interaction education provided to patient, doses and administration discussed, possible adverse effects and management discussed, possible drug and prescription drug interactions discussed, possible drug and OTC drug and food interactions discussed, lab monitoring and follow-up discussed, use of contraception discussed, adherence and missed doses discussed, pharmacy contact information discussed, monitoring medication discussed, over the counter products discussed, preventative care discussed, reminder to refill or slat pickler medication discussed, timing of medications discussed, referral needs discussed <div class='h_N<LOWCOLOR>' ><span class='hText'>Cehab-cqe-Xmqqs</span></di v><table style='paddinpx;' id=[email or web address]><tr><td><img src='[email or web address] /[email or web address]/[email or web address]'></img></td><td style='vertical-align:top; ' class=hRow><table style='paddinpx;' id=[email or web address]><tr><td style='padding-left:4px; background-color:#[id number]; border-color:#[id number]; border-width:1px; border- style:solid; color: #[id number]; font-weight:bold;' >Encountersthat might contain data have been deemed confidential and restricted.</td></tr><tr> <td></td></tr></table></td></tr></table> Treatment Outcomes 10/12/2020 0909 Disease progression: Stable Reviewed in detail with [...] Assessment: Does the patient have a primary health and social care teacher? no Does the patient have an emergency contact on file: Yes Does patient need referral to health and social care teacher: No Does patient need referral to advocacy group: No Home Health Assessment: Is the patient in a safe home environment? Yes Is the patient able to store their medication as directed? Yes Does the patient have a support network at home? Yes Reviewed potential home safety hazards with patient: Yes Economic Assessment: Patient is agreeable to medication copay: yes Copay Amount: $0.00 Day Supply: 28 Date Needed: 10/22/20 Copay assistance required: no Therapy Assessment: Current Medication Dosing/Route/Frequency: Mavyret 100-40mg take 3 tablets by mouth once daily x 8 weeks ? Appropriate Therapy: Yes ?? Genotype: 1a Treatment Naive/Experienced: Naive Fibrosis Score: F0-F1 HX of liver transplant: no HBV Coinfection: no HIV Coinfection: no Effective: TBD w/ SVR12 labs Most Recent HCV Viral Load: 1,032,519 IU/mL pre-treatment on 09/07/20 Undetectable RVR4 Labs: N/A Patient-Reported Side Effects: yes - fatigue, headache, nausea, loose stool, decreased appetite Side Effect Mitigation Strategies Discussed: Yes Patient Goals: Patient's specific desired goal: SVR12 Measured by: HepC viral load 12 weeks post-treatment Time-frame to meet goal: 12 weeks post-treatment Is the patient on track to achieve goals of therapy? yes If no, what are the barriers and action plan to reach the goal: n/a Care Plan and Interventions: Care Plan Reviewed and Approved by both Pharmacist and Patient: Yes Did Care Plan Change? No If yes: Change to plans of care based on: Patient's request: no Condition: no Response to therapy: no Provider request: no Follow-up needed: No Interventions (if applicable): No n/a Patient experienced change in condition that affects treatment: no Additional care/services needed: no Educational information or adherence tools provided: Yes HCV therapy adherence: Yes HCV treatment response: Yes Additional equipment/supplies required: no Patient Counseling: Monitoring: CBC, CMP, HepC viral load Lab schedule reviewed: Yes Upcoming Lab Reminder Given: Yes Personal Hygiene Device Disposal Reminder Given: Yes Proper Hydration: Yes Number of Days Supply Remaining from Prior Fill: 10 (including today) Pharmacist follow-up needed: Yes Patient Satisfaction with Care/Services Provided: Yes Informed patient of specialty pharmacy services: Yes -Patient received welcome packet: Yes Date received: 09/24/20 Delivery Method: mail -Patient received and returned Rights & Responsibilities: Yes Date received: 09/24/20 Delivery Method: mail -Patient is aware a [...] were made at the appointment and that [facility] is providing recommendations (summary located at top of note) for provider review and follow up. Rita Abraham RPH 10/12/20 9:09 AM documented in this encounter Plan of Treatment Not on filedocumented as of this encounter Goals Goal Patient Goal Associated Recent Patient-Stated? Author Type Problems Progress DH Home Medication Patient On track Yes Leigh Compliance and Facing (10/12/2020 Rita Dumas Understanding Action Plan 9:07 AM EDT) [facility] Note: Formatting of this note might be d ifferent from the original. SVR12 through treatment with Mavyret x 8 weeks documented as of this encounter Visit Diagnoses Not on filedocumented in this encounter Care Teams Fire Investigation Manager Relationship Specialty Start Date End Date Autumn Krishnan APRN PCP - General 05/16/20 [place] [address] documented as of this encounter
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
--- OUTSIDE RECORDS SUMMARY | 2021-10-20 07:55 | XMS_ITS | Encounter Summary ---
:1985 Author Organization [facility] [place] [address] Care Team Providers Name Role Phone Genet Holland Primary Care Provider Encounter Details Date Type Department Care Team Description 05/13/2020 Hospital Encounter Laboratory [place] [address] Social History Tobacco Use Types Packs/Day [...] Place 16 mg of 56 each 0 1 06/09/2020 (SUBOXONE) 8-2 mg Film opiate under the tongue daily. FLUoxetine (PROzac) 20 mg Take 3 tablets by 90 tablet 2 11/202006/09/2020 Tablet mouth daily. traZODone (Desyrel) 50 mg Take 1 [...] Date/Time Associated Comments Diagnosis OPIOIDS CONFIRMATION Routine 05/13/2020 11:30 Opioid use disor mario Results for this PANEL, URINE AM EDT procedure are i n the results section. RAPID DRUG SCREEN, Routine 05/13/2020 11:30 Opioid use disorde r Results for this COMPLIANCE MONITORING AM EDT proced ure are in the results section. HC URINE DRUG SCREEN Routine 05/13/2020 11:30 Opioid use disor mario BY INSTRUMENT AM EDT THC (MARIJUANA), Routine 05/13/2020 11:30 Results for this URINE, CONFIRMATION AM EDT procedur e are in the results section. documented in this encounter Results THC (Marijuana), Urine Confirmation (05/13/2020 11:30 AM EDT) Component Value Ref Test Analysis Performed At [facility] Range Method Time Signature U THC Conf [facility]LE[facility] Test ? Result ?Flag ??Unit ?? RefValue [facility] Carboxy-THC Confirmation, U CONNIE RODRIGUEZTAL ??Carboxy-THC- by GC/MS ?149 ? ng/mL ??Cutoff: 3.0 LABORATORY ??Carboxy-THC Interpretation ? Positive. ? ADDITIONAL INFORMATION ------ ?This report is intended for use in clinical monitoring and ?management of patients. ??It is not intended for use i n ?employment-related testing. ?This test was developed and its performance characteri stics ?determined by [facility] in a manner consistent with CLIA ?requirements. This test has not been cleared or approv ed by ?the U.S. Food and Drug Administration. ?Test Performed by: ?[facility] ?[address] [place] [address] ?Annual Campaign Manager: Magdaleno Henriuqez M.D. Ph.D.; CLIA# [id number] Specimen Anatomical Collection Method Collection Time Receive d Time (Source) Location / / Volume Laterality Urine specimen 05/13/2020 11:30 1 (specimen) AM EDT 11:20 AM EDT Resulting Agency Comment Spec In Lab Namita Moran MD URINE ORDERABLES Performing Organization Address City/State/ZIP Code Phon e Number [place] [facility], [id number] (ABNORMAL) Opioids Confirmation Panel, Urine (05/13/2020 11:30 AM EDT) P athologist Signature U Morphine Lvl <10.0 <=9.9 [facility] ng/mL [facility] Comment: The presence of morphine may [...] ng/mL. U Oxymorphone Lvl <10.0 <=9.9 ng/mL [facility] Comment: Oxymorphone may arise from the use of ox ymorphone-containing drugs or by metabolism of oxycodone. Cutoff = 10 ng/ mL. U Hydromorphone Lvl <10.0 <=9.9 ng/mL [facility] Comment: Hydromorphone may arise from the use of hydromorphone-containing drugs or by metabolism of morphine. Cutoff = 10 ng/m L. U Dihydrocodeine Lvl <10.0 <=9.9 ng/mL [facility] Comment: Dihydrocodeine may arise [...] ng/mL. U Codeine Lvl <10.0 <=9.9 ng/mL [facility] Comment: Codeine is not [...] ng/mL. U Oxycodone Lvl <5.0 <=4.9 ng/mL [facility] Comment: Oxycodone is not [...] ng/mL. U 6-SAUL Lvl <5.0 <=4.9 ng/mL [facility] Comment: 6-SAUL: The presence of 6-monoacetylmorph ine (6-SAUL) indicates heroin use. 6-SAUL is metabolized to morphine. Cutoff = 5 n g/mL. U Norhydrocodone Lvl <10.0 <=9.9 ng/mL [facility] Comment: Norhydrocodone is the major met abolite of hydrocodone. Cutoff = 10 ng/mL. U O-Desmethyltramadol Lvl <25.0 <=24.9 ng/mL [facility] Comment: O-desmethyltramadol is a metabolite of t ramadol and its presence indicates tramadol use. Cutoff = 25 ng/mL. U Hydrocodone Lvl <10.0 <=9.9 ng/mL [facility] Comment: Hydrocodone may arise from the use of hy drocodone-containing drugs or by metabolism of codeine. When generated by the metabolism of codeine, the concentration of hydrocodone is typicall y less than the concentration of codeine. Hydrocodone is metabolized to n orhydrocodone, dihydrocodeine, and hydromorphone (minor metabolite). Cutoff = 10 ng/mL. U Norfentanyl Lvl <1.0 <=0.9 ng/mL [facility] Comment: Norfentanyl is a metabolite of fentanyl and its presence indicates fentanyl use. Cutoff = 1 ng/mL. U Tramadol Lvl <25.0 <=24.9 ng/mL [facility] Comment: Tramadol is not recognized as a metaboli te of other opioids and its presence indicates the use of tramadol-containing drugs. The presence of tramadol in the absence of O-desmethyltramadol suggests placement of tramadol directly into the urine specimen rather than ingestion. Cu toff = 25 ng/mL. U Norbuprenorphine Lvl 958.6 (H) <=4.9 ng/mL [facility] Comment: Norbuprenorphine is a metabolite of bupr enorphine and its presence indicates use of buprenorphine or combination prod ucts such as Suboxone??. Cutoff = 5 ng/mL. U Fentanyl Lvl <1.0 <=0.9 ng/mL [facility] Comment: Fentanyl is not recognized as a metaboli te of other opioids and its presence indicates the use of fentanyl-containing drugs. The presence of fentanyl in the absence of norfentanyl suggests placemen t of fentanyl directly into the urine specimen rather than ingestion. Cutoff = 1 ng/mL. U Buprenorphine Lvl 528.0 (H) <=4.9 ng/mL [facility] Comment: Buprenorphine is not recognized as a met abolite of other opioids and its presence indicates the use of buprenorph ine or combination products such as Suboxone??. Patients taking a low dose o f buprenorphine may be compliant despite a buprenorphine result below the limit o f detection. Cutoff = 5 ng/mL. U EDDP+ Lvl <50.0 <=49.9 ng/mL [facility] Comment: EDDP+ is a metabolite of methadone. The presence of EDDP+ indicates use of methadone. Cutoff = 50 ng/mL. U Methadone Lvl <50.0 <=49.9 ng/mL [facility] Comment: Methadone is not recognized as a metabol ite of other opioids and its presence indicates the use of methadone-containin g drugs. The presence of methadone in the absence of EDDP+ suggests placement of methadone directly into the urine specimen rather than ingestion. Cutoff = 50 ng/mL. Opioid Panel Interp See Comment [facility] Comment: This test was performed using liquid chr omatography tandem mass spectrometry (LC-MS/MS). This test was developed and its performance characteristics determined by the Department of Patholog y and Laboratory Medicine at [facility]. It h as not been cleared or approved by the FDA. The laboratory is regulated under [place] as qualified to perform high-complexity testing. This test is us ed for clinical purposes and should not be used for investigational or research purposes. For any interpretation questions, please contact the laboratory at [phone]. Specimen Anatomical Collection Method Collection Time Receive d Time (Source) Location / / Volume Laterality Urine specimen 05/13/2020 11:30 7:12 (specimen) AM EDT AM EDT Resulting Agency Comment Spec In Lab Namita Moran MD URINE ORDERABLES Performing Organization Address City/State/[place] [address] (ABNORMAL) Rapid Drug Screen, Compliance Monitoring (05/13/2020 11:30 AM EDT) [facility] Method Time Signature U Barbiturates None None [facility] Screen Detected Detected [facility] Comment: The barbiturate screen detects barbitura [...] U Benzodiazepines Screen None Detected None Detected [facility] Comment: The benzodiazepines screen [...] U Cocaine Screen None Detected None Detected [facility] Comment: The cocaine metabolites [...] Cannabinoid Screen Presumptive Pos (A) None Detected [facility] Comment: The marijuana metabolites screen detects the THC metabolite (86-zub-6-carboxy-delta 9-THC) at concen trations >20 ng/mL. A ? Presumptive Positive? result indicates that the screening result was positive but has not yet been confirmed by a highly-specific method. As with any screen, occasional false positive re sults from cross-reacting substances may occur. Not for Medico-Legal Purposes. U Tricyclics Screen None Detected None Detected KELLI KANDIS [facility] Comment: The tricyclics screen detects tricyclic [...] U Ethanol Screen None Detected None Detected [facility] Comment: This urine ethanol assay detect s ethanol at concentrations >/= 100 mg/L. U Amphetamines Screen None Detected None Detected [facility] Comment: The amphetamine screen detects d-ampheta mine and d-methamphetamine at concentrations >300 ng/mL. A ? Presumptive Positive? result indicates that the screening result was positive but has not yet been confirmed by a highly-specific method. As with any screen, occasional false positive re sults from cross-reacting substances may occur. Not for Medico-Legal Purposes. U Adulterants Screen None Detected None Detected M MAXIMINO [facility] Comment: No adulteration or dilution of this urin e sample was detected. All urine samples submitted for urine drugs of abu se analysis are tested for creatinine concentration, pH, and for the presence of oxidants, nitrites, and chromate. Specimen Anatomical Collection Method Collection Time Receive d Time (Source) Location / / Volume Laterality Urine specimen 05/13/2020 11:30 9:46 (specimen) AM EDT PM EDT Resulting Agency Comment Spec In Lab Namita Moran MD URINE ORDERABLES Performing Organization Address City/State/ZIP Code Phon e Number [place] [id number] documented in this encounter Visit Diagnoses Diagnosis Opioid use disorder documented in this encounter Care Teams Food Service Manager Relationship Specialty Start Date End Date Genet Holland PA PCP - General Family Medicine 02/06/19 05/15/20 [address] [place] [address] documented as of this encounter
--- OUTSIDE RECORDS SUMMARY | 2021-10-20 07:55 | XMS_ITS | Encounter Summary ---
:1985 Author Organization [facility] [place] [address] Care Team Providers Name Role Phone Autumn Krishnan APRN Primary Care Provider [phone] Reason for Visit Reason Comments Specialty Pharmacy Review Encounter Details Date Type Department Care Team Description 09/07/2020 Specialty Pharmacy Pharmacy at [facility] Victorina Jj [facility] [place] [phone] Social History Tobacco Use Types Packs/Day Years Used Date Current Every Day Smoker Cigarettes 1 Smokeless Tobacco: Never Used Alcohol Use Standard Drinks/Week Comments No 0 (1 standard drink = 0.6 oz pure alcoho l) Not during Sex Assigned at Date Recorded Female 04/13/2020 8:26 AM EST documented as of this encounter Progress Notes Victorina Jj - 09/07/2020 11:59 PM EDT The - Specialty Pharmacy has completed a benefits investigation for Shirlene Kovacs to review their eligibility to fill at [facility]. Per patient's medication list they are prescribed Mavyret and the medication is able to be filled at the [facility]. documented in this encounter Plan of Treatment Not on filedocumented as of this encounter Goals Goal Patient Goal Associated Recent Patient-Stated? Author Type Problems Progress Home Medication Patient On track Yes Leigh , Antony and Facing (10/12/2020 Rita Dumas, Understanding Action Plan 9:07 AM EDT) [facility] Note: Formatting of this note might be d ifferent from the original. SVR12 through treatment with Mavyret x 8 weeks documented as of this encounter Visit Diagnoses Not on filedocumented in this encounter Care Teams Marine Reporter Relationship Specialty Start Date End Date Autumn Krishnan APRN PCP - General 05/16/20 [place] [id number] documented as of this encounter
--- OUTSIDE RECORDS SUMMARY | 2021-10-20 07:55 | XMS_ITS | Encounter Summary ---
:1985 Author Organization [facility] [place] [address] Care Team Providers Name Role Phone Genet Holland Primary Care Provider Encounter Details Date Type Department Care Team Description 04/09/2020 Telephone Infectious Disease a sarika [facility] Merissa Reed, [place] [address] Social History Tobacco Use Types Packs/Day Years [...] on filedocumented in this encounter Care Teams Wheel Blocker Relationship Specialty Start Date End Date Genet Holland PA PCP - General Family Medicine 02/06/19 05/15/[address] [place] [id number] documented as of this encounter
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
--- OUTSIDE RECORDS SUMMARY | 2021-10-20 07:55 | XMS_ITS | Encounter Summary ---
:1985 Author Organization [facility] [place] [address] Care Team Providers Name Role Phone Autumn Krishnan APRN Primary Care Provider [phone] Encounter Details Date Type Department Care Team Description 08/12/2020 Hospital Encounter Laboratory [place] [address] Social History Tobacco Use Types Packs/Day [...] Sig Dispensed Refills Start Date End Date FLUoxetine (PROzac) 20 mg Take 4 tablets [...] 16 mg of 56 each 0 1 09/01/2020 (SUBOXONE) 8-2 mg Film opiate under the tongue daily. levothyroxine (Synthroid) Take 75 mcg by 0 09/15/2020 75 mcg Tablet mouth daily. traZODone (Desyrel) 50 mg [...] Date/Time Associated Comments Diagnosis OPIOIDS CONFIRMATION Routine 08/12/2020 12:00 Opioid use disor mario Results for this PANEL, URINE PM EDT procedure are i n the results section. [facility] NOVEL Routine 08/12/2020 12:00 Opioid use disorder Resu lts for this PSYCHOACTIVE PM EDT procedure are i n SUBSTANCES (COMMERCIAL SUBCONTRACTOR) the results SCREEN 1, URINE section. RAPID DRUG SCREEN, Routine 08/12/2020 12:00 Opioid use disorde r Results for this COMPLIANCE MONITORING PM EDT proced ure are in the results section. URINE DRUG SCREEN Routine 08/12/2020 12:00 Opioid use disor mario BY INSTRUMENT PM EDT [facility] ALCOHOL Routine 08/12/2020 12:00 Opioid use disorder Re sults for this BIOMARKERS, URINE PM EDT procedure are in the results section. THC (MARIJUANA), Routine 08/12/2020 12:00 Results for this URINE, CONFIRMATION PM EDT procedur e are in the results section. documented in this encounter Results THC (Marijuana), Urine Confirmation (08/12/2020 12:00 PM EDT) Component Value Ref Test Analysis Performed At [facility] gist Range Method Time Signature U THC Conf COLEEN Test ? Result ?Flag ??Unit ?? RefValue [facility] Carboxy-THC Confirmation, U HO SPITAL ??Carboxy-THC- by GC/MS ?327 ? ng/mL ??Cutoff: 3.0 LABORATORY ??Carboxy-THC Interpretation ? Positive. ? ADDITIONAL INFORMATION ------ ?This report is intended for use in clinical monitoring and ?management of patients. ??It is not intended for use i n ?employment-related testing. ?This test was developed and its performance characteri stics ?determined by [facility] in a manner consistent with CLIA ?requirements. This test has not been cleared or approv ed by ?the U.S. Food and Drug Administration. ?Test Performed by: ?[facility] ?[address] [place] [address] ?Investment Counselor: Magdaleno Henriquez M.D. Ph.D.; CLIA# [id number] Specimen Anatomical Collection Method Collection Time Receive d Time (Source) Location / / Volume Laterality Urine 08/12/2020 12:00 08/13/2020 PM EDT 10:59 AM EDT Resulting Agency Comment Spec In Lab Namita Moran MD URINE ORDERABLES Performing Organization Address City/State/[place] [address] (ABNORMAL) Opioids Confirmation Panel, Urine (08/12/2020 12:00 PM EDT) P athologist Signature U Morphine Lvl <10.0 <=9.9 [facility] ng/mL [facility] Comment: The presence of morphine may [...] ng/mL. U Oxymorphone Lvl <10.0 <=9.9 ng/mL [facility] Comment: Oxymorphone may arise from the use of ox ymorphone-containing drugs or by metabolism of oxycodone. Cutoff = 10 ng/ mL. U Hydromorphone Lvl <10.0 <=9.9 ng/mL [facility] Comment: Hydromorphone may arise from the use of hydromorphone-containing drugs or by metabolism of morphine. Cutoff = 10 ng/m L. U Dihydrocodeine Lvl <10.0 <=9.9 ng/mL [facility] Comment: Dihydrocodeine may arise from the use of dihydrocodeine-containing drugs or by metabolism of hydrocodone (minor metabol ite). Cutoff = 10 ng/mL. U Naloxone Lvl 633.1 (H) <=4.9 ng/mL [facility] Comment: Naloxone is not recognized [...] ng/mL. U Noroxycodone Lvl <10.0 <=9.9 ng/mL [facility] Comment: Noroxycodone is a metabolite of oxycodon e and its presence indicates oxycodone use. Cutoff = 10 ng/mL. U Oxycodone Lvl <5.0 <=4.9 ng/mL [facility] Comment: Oxycodone is not a [...] g/mL. U Norhydrocodone Lvl <10.0 <=9.9 ng/mL [facility] Comment: Norhydrocodone is the major met abolite of hydrocodone. Cutoff = 10 ng/mL. U O-Desmethyltramadol Lvl <25.0 <=24.9 ng/mL [facility] Comment: O-desmethyltramadol is a metabolite of t ramadol and its presence indicates tramadol use. Cutoff = 25 ng/mL. U Hydrocodone Lvl <10.0 <=9.9 ng/mL [facility] Comment: Hydrocodone may arise from the use of hy drocodone-containing drugs or by metabolism of codeine. When generated by the metabolism of codeine, the concentration of hydrocodone is typicall y less than the concentration of codeine. Hydrocodone is metabolized to n orhydrocodone, dihydrocodeine, and hydromorphone (minor metabolite). Cutoff = 10 ng/mL. U Norfentanyl Lvl <1.0 <=0.9 ng/mL [facility] Comment: Norfentanyl is a metabolite of fentanyl and its presence indicates fentanyl use. Cutoff = 1 ng/mL. U Tramadol Lvl <25.0 <=24.9 ng/mL [facility] Comment: Tramadol is not recognized as a metaboli te of other opioids and its presence indicates the use of tramadol-containing drugs. The presence of tramadol in the absence of O-desmethyltramadol suggests placement of tramadol directly into the urine specimen rather than ingestion. Cu toff = 25 ng/mL. U Norbuprenorphine Lvl 610.3 (H) <=4.9 ng/mL [facility] Comment: Norbuprenorphine is a metabolite of bupr enorphine and its presence indicates use of buprenorphine or combination prod ucts such as Suboxone??. Cutoff = 5 ng/mL. U Fentanyl Lvl <1.0 <=0.9 ng/mL [facility] Comment: Fentanyl is not recognized as a metaboli te of other opioids and its presence indicates the use of fentanyl-containing drugs. The presence of fentanyl in the absence of norfentanyl suggests placemen t of fentanyl directly into the urine specimen rather than ingestion. Cutoff = 1 ng/mL. U Buprenorphine Lvl 110.9 (H) <=4.9 ng/mL [facility] Comment: Buprenorphine is not recognized as a met abolite of other opioids and its presence indicates the use of buprenorph ine or combination products such as Suboxone??. Patients taking a low dose o f buprenorphine may be compliant despite a buprenorphine result below the limit o f detection. Cutoff = 5 ng/mL. U EDDP+ Lvl <25.0 <=24.9 ng/mL [facility] Comment: EDDP+ is a metabolite of methadone. The presence of EDDP+ indicates use of methadone. Cutoff = 25 ng/mL. U Methadone Lvl <25.0 <=24.9 ng/mL [facility] Comment: Methadone is not recognized as a metabol ite of other opioids and its presence indicates the use of methadone-containin g drugs. The presence of methadone in the absence of EDDP+ suggests placement of methadone directly into the urine specimen rather than ingestion. Cutoff = 25 ng/mL. Opioid Panel Interp See Comment [facility] Comment: This test was performed using liquid chr omatography tandem mass spectrometry (LC-MS/MS). This test was developed and its performance characteristics determined by the Department of Patholog y and Laboratory Medicine at [facility]. It h as not been cleared or approved by the FDA. The laboratory is regulated under [place] as qualified to perform high-complexity testing. This test is us ed for clinical purposes and should not be used for investigational or research purposes. For any interpretation questions, please contact the laboratory at [phone]. Specimen Anatomical Collection Method Collection Time Receive d Time (Source) Location / / Volume Laterality Urine 08/12/2020 12:00 08/13/2020 7:12 PM EDT AM EDT Resulting Agency Comment Spec In Lab Namita Moran MD URINE ORDERABLES Performing Organization Address City/State/[place] [address] (ABNORMAL) Rapid Drug Screen, Compliance Monitoring (08/12/2020 12:00 PM EDT) [facility] Method Time Signature U Barbiturates None None COLEEN Screen Detected Detected [facility] Comment: The barbiturate screen detects barbitura [...] U Benzodiazepines Screen None Detected None Detected [facility] Comment: The benzodiazepines screen detects [...] U Cocaine Screen None Detected None Detected [facility] Comment: The cocaine metabolites screen [...] Cannabinoid Screen Presumptive Pos (A) None Detected [facility] Comment: The marijuana metabolites screen detects the THC metabolite (16-xqa-5-carboxy-delta 9-THC) at concen trations >20 ng/mL. A ? Presumptive Positive? result indicates that the screening result was positive but has not yet been confirmed by a highly-specific method. As with any screen, occasional false positive re sults from cross-reacting substances may occur. Not for Medico-Legal Purposes. U Tricyclics Screen None Detected None Detected [facility] Comment: The tricyclics screen detects [...] U Ethanol Screen None Detected None Detected [facility] Comment: This urine ethanol assay detect s ethanol at concentrations >/= 100 mg/L. U Amphetamines Screen None Detected None Detected [place] [facility] Comment: The amphetamine screen [...] Screen None Detected None Detected [place] Comment: No adulteration or dilution of this urin e sample was detected. All urine samples submitted for urine drugs of abu se analysis are tested for creatinine concentration, pH, and for the presence of oxidants, nitrites, and chromate. Specimen Anatomical Collection Method Collection Time Receive d Time (Source) Location / / Volume Laterality Urine 08/12/2020 12:00 08/12/2020 9:04 PM EDT PM EDT Resulting Agency Comment Spec In Lab Namita Moran MD URINE ORDERABLES Performing Organization Address [facility]/ZIP Code Phon e Number [address] Novel Psychoactive Substances, Urine (08/12/2020 12:00 PM EDT) [facility] Method Time Signature U COMMERCIAL SUBCONTRACTOR Screen See Scan COLEEN CALABRESE Report [facility] Comment: Test performed by [facility], [address] [place] [address] Specimen Anatomical Collection Method Collection Time Receive d Time (Source) Location / / Volume Laterality Urine 08/12/2020 12:00 08/13/2020 PM EDT 11:21 AM EDT Narrative This result has an attachment that is no t available. Resulting Agency Comment Spec In Lab Namita Moran MD URINE ORDERABLES Performing Organization Address City/[facility]/ZIP Code Phon e Number [address] Alcohol Biomarkers (08/12/2020 12:00 PM EDT) [facility] [employer] Method Time Signature Alcohol Negative Cutoff: COLEEN CALABRESE Biomarkers 500 ng/mL [facility] Comment: ADDITIONAL INFORMATIO N This test was developed and its performa nce characteristics determined by [facility] in a manner co nsistent with CLIA requirements. This test has not been ruma ared or approved by the U.S. Food and Drug Administration. Test Performed by: [facility] [address] [address] Investment Counselor: Magdaleno Henriquez M.D. Ph. D.; CLIA# [id number] Specimen Anatomical Collection Method Collection Time Receive d Time (Source) Location / / Volume Laterality Urine 08/12/2020 12:00 08/13/2020 PM EDT 10:59 AM EDT Resulting Agency Comment Spec In Lab Namita Moran MD CHEMISTRY ORDERABLES Performing Organization Address City/State/[place] [address] documented in this encounter Visit Diagnoses Diagnosis Opioid use disorder documented in this encounter Care Teams Wrapper Sorter Relationship Specialty Start Date End Date Autumn Krishnan APRN PCP - General 05/16/20 [place] [id number] documented as of this encounter
--- OUTSIDE RECORDS SUMMARY | 2021-10-20 07:55 | XMS_ITS | Encounter Summary ---
:1985 Author Organization [facility] [place] [address] Care Team Providers Name Role Phone Autumn Krishnan APRN Primary Care Provider [phone] Encounter Details Date Type Department Care Team Description 08/12/2020 Orders Only Psychiatry and Namita Moran M D Opioid use disorder [facility] at [facility] [place] [address] [place] [address] [phone] Social History Tobacco Use Types Packs/Day Years Used Date Current Every Day Smoker Cigarettes 1 Smokeless Tobacco: Never Used Alcohol Use Standard Drinks/Week Comments No 0 (1 standard drink = 0.6 oz pure alcoho l) Not during Sex Assigned at Date Recorded Female 04/13/2020 8:26 AM EST documented as of this encounter Plan of Treatment Not on filedocumented as of this encounter Results Novel Psychoactive Substances, Urine (08/12/2020 12:00 PM EDT) [facility] gist Method Time Signature U PHOTOGRAPH PRINTER Screen See [facility]ATORY Comment: Test performed by [email or web address], [address] [place] [address], [place] [address] Specimen Anatomical Collection Method Collection Time Receive d Time (Source) Location / / Volume Laterality Urine 08/12/2020 12:00 08/13/2020 PM EDT 11:21 AM EDT Narrative This result has an attachment that is no t available. Resulting Agency Comment Spec In Lab Namita Moran MD URINE ORDERABLES Performing Organization Address City/[facility]/ZIP Code Phon e Number [place] [address] Alcohol Biomarkers (08/12/2020 12:00 PM EDT) [facility] Method Time Signature Alcohol Negative Cutoff: CLOEEN CALABRESE Biomarkers 500 ng/mL [facility] Comment: ADDITIONAL INFORMATIO N This test was developed and its performa nce characteristics determined by [facility] in a manner co nsistent with CLIA requirements. This test has not been ruma ared or approved by the U.S. Food and Drug Administration. Test Performed by: [facility] [address] [address] Propulsion Machinery Service Engineer: Magdaleno Henriquez M.D. Ph. D.; CLIA# [id number] Specimen Anatomical Collection Method Collection Time Receive d Time (Source) Location / / Volume Laterality Urine 08/12/2020 12:00 08/13/2020 PM EDT 10:59 AM EDT Resulting Agency Comment Spec In Lab Namita Moran MD CHEMISTRY ORDERABLES Performing Organization Address City/[facility]/[place] [address] documented in this encounter Visit Diagnoses Diagnosis Opioid use disorder documented in this encounter Care Teams Fusing Furnace Loader Relationship Specialty Start Date End Date Autumn Krishnan APRN PCP - General 05/16/20 [place] [address] documented as of this encounter
--- OUTSIDE RECORDS SUMMARY | 2021-10-20 07:55 | XMS_ITS | Encounter Summary ---
:1985 Author Organization [facility] [place] [address] Care Team Providers Name Role Phone Brooklyn Krishnanica ISHAAN Primary Care Provider [phone] Reason for Visit Reason Comments Patient Education Medication Management Encounter Details Date Type Department Care Team Description 11/16/2020 Specialty Pharmacy Pharmacy at [facility] Rita Abraham Patient Education; [facility] [place] [address] Social History Tobacco Use Types Packs/Day Years Used Date Current Every Day Smoker Cigarettes 1 Smokeless Tobacco: Never Used Alcohol Use Standard Drinks/Week Comments No 0 (1 standard drink = 0.6 oz pure alcoho l) Not during Sex Assigned at Date Recorded Female 04/13/2020 8:26 AM EST documented as of this encounter Progress Notes Rita Abraham [facility] - 11/16/2020 9:01 AM EDT Specialty Pharmacy Consultation; Rita Abraham [facility] Comprehensive Medication Management (CMM) Shirlene Dumas Fermín Diagnosis: Hepatitis C Therapy Start Date: 09/24/20 Ms. Shirlene Kovacs is a 35 y.o. (1985) female who was contacted in regard to specialty medication. Spoke with patient regarding MAVYRET. A review of the medication therapy was performed. All medication related questions and concerns were addressed. The specialty pharmacy staff will follow up with the patient 12 weeks after treatment ends for SVR12 lab reminder. Is the patient willing to proceed with the Clinical Assessment? Yes Summary and Recommendations: Changes to medication regimen at therapy completion: no Shirlene Kovacs was contacted regarding hepatitis C treatment with Mavyret. The patient has 3 doses remaining of their current supply (including today's dose) which aligns with their start date and report of no missed doses throughout treatment. I reminded the patient to get SVR12 labs drawn on 02/11/21. I also provided a reminder to replace nail clippers, razor, and toothbrush at the end of treatment.We will follow up with the patient in approximately 3 months for the SVR12 lab reminder. I have no recommendations at this time. Approximate date of treatment completion: Patient will complete treatment on 11/18/20 which suggests 0 missed doses throughout the total course of treatment. Patient's response to therapy: Week 4 HCV viral load (if applicable): n/a SVR12 lab due: 02/11/21 Labs ordered and sent to preferred lab location: yes - orders in place at [facility] Patient understands no changes to current drug regimen were made at the appointment and that [facility] is providing recommendations (summary located at top of note) for provider review and follow up. Rita Abraham [facility] 11/16/20 9:02 AM documented in this encounter Plan of Treatment Not on filedocumented as of this encounter Goals Goal Patient Goal Associated Recent Patient-Stated? Author Type Problems Progress DH Home Medication Patient On track Yes Leigh Compliance and Facing (10/12/2020 Rita Dumas Understanding Action Plan 9:07 AM EDT) [facility] Note: Formatting of this note might be d ifferent from the original. SVR12 through treatment with Mavyret x 8 weeks documented as of this encounter Visit Diagnoses Not on filedocumented in this encounter Care Teams Lead Net Software Developer Relationship Specialty Start Date End Date Autumn Krishnan APRN PCP - General 05/16/20 [place] [phone] documented as of this encounter
--- OUTSIDE RECORDS SUMMARY | 2021-10-20 07:55 | XMS_ITS | Encounter Summary ---
:1985 Author Organization [facility] [address] Care Team Providers Name Role Phone Autumn Krishnan APRN Primary Care Provider [phone] Encounter Details Date Type Department Care Team Description 09/17/2020 Telephone Gastroenterology at [facility] [place] [address] Social History Tobacco Use Types Packs/Day Years Used Date Current Every Day Smoker Cigarettes 1 Smokeless Tobacco: Never Used Alcohol Use Standard Drinks/Week Comments No 0 (1 standard drink = 0.6 oz pure alcoho l) Not during Sex Assigned at Date Recorded Female 04/13/2020 8:26 AM EST documented as of this encounter Miscellaneous Notes Telephone Encounter - DevonteGeorge jimenezalexander Bartholomew - 09/17/2020 11:01 AM EDT Shirlenepark Kovacs [id number] Diagnosis/Indication: evaluate for chronic pancreatitis 1. Have you ever had a/an Upper EUS before? Yes: Date 08/20/2013 If yes, did you have any problems with the procedure? No What type of sedation was used: General Anesthesia 2. Do you take any blood thinners or have you been diagnosed with a bleeding disorder that increasesyour risk of bleeding with procedures? No 3. Do you have a Pacemaker or Defibrillator device? No 4. Are you a diabetic? No 5. Do you have any Allergies to Eggs, Latex or Medications? No 6. Do you take any Oral Iron Supplements (Including multi-vitamins)? No 7. Do you have a history of three or more abdominal surgeries? No 8. Have you had a problem with sedation or anesthesia? No 9. Do you use a c-pap machine or oxygen tank? Neither 10. Do you take prescription narcotic pain medications, including suboxone or methodone? Yes 11. Do you have a preference regarding the gender of your provider? No Preference 12. Is there any other information you would like to us to note for the provider and nursing team who will perform your case? No 13. Say to patient: You must have a responsible constitution party who will drive you to your procedure, stay on campus for the entire duration of your procedure, and drive you home from your procedure? *Please Verify the height and weight, and adjust if height and/or weight have changed* Estimated body mass index is 28.96 kg/m?? as calculated from the following: Height as of 06/28/20: 175.3 cm (5' 9). Weight as of 06/28/20: 89 kg (196 lb 1.6 oz). Age:35 y.o. documented in this encounter Plan of Treatment Not on filedocumented as of this encounter Goals Goal Patient Goal Associated Recent Patient-Stated? Author Type Problems Progress DH Home Medication Patient On track Yes Antony Abraham and Facing (10/12/2020 Rita Dumas, Understanding Action Plan 9:07 AM EDT) [facility] Note: Formatting of this note might be d ifferent from the original. SVR12 through treatment with Mavyret x 8 weeks documented as of this encounter Visit Diagnoses Not on filedocumented in this encounter Care Teams Blood Coordinator Relationship Specialty Start Date End Date Autumn Krishnan APRN PCP - General 05/16/20 [place] [phone] documented as of this encounter
--- OUTSIDE RECORDS SUMMARY | 2021-10-20 07:55 | XMS_ITS | Encounter Summary ---
:1985 Author Organization [facility] [address] Care Team Providers Name Role Phone Autumn Krishnan APRN Primary Care Provider [phone] Encounter Details Date Type Department Care Team Description 07/01/2020 Telephone Gastroenterology at [facility] [place] [address] Social History Tobacco Use Types Packs/Day Years Used Date Current Every Day Smoker Cigarettes 1 Smokeless Tobacco: Never Used Alcohol Use Standard Drinks/Week Comments No 0 (1 standard drink = 0.6 oz pure alcoho l) Not during Sex Assigned at Date Recorded Female 04/13/2020 8:26 AM EST documented as of this encounter Miscellaneous Notes Telephone Encounter - Phyllis Gamez - 07/01/2020 3:55 PM EDT Called patient to reschedule ARAM (60 min) visit with Dr. Francis Roberts[facility] documented in this encounter Plan of Treatment Not on filedocumented as of this encounter Visit Diagnoses Not on filedocumented in this encounter Care Teams Clarifier Operator Relationship Specialty Start Date End Date Autumn Krishnan APRN PCP - General 05/16/20 [place] [address] documented as of this encounter
--- OUTSIDE RECORDS SUMMARY | 2021-10-20 07:55 | XMS_ITS | Encounter Summary ---
:1985 Author Organization [facility] [place] [address] Care Team Providers Name Role Phone Autumn Krishnan APRN Primary Care Provider [phone] Reason for Visit Auth/Cert Specialty Diagnoses / Procedures Referred By Contact Refer red To Contact Diagnoses Pancreatitis evaluate for chronic pancreatitis Procedures PRO ENDOSCOPIC US EXAM, ESOPH PRO ANESTH, COMBINED UPPER OR LOWER ENDOSCOPY UPPER EUS- ENDOSCOPIC ULTRASOUND Referral ID Status Reason Start Date Expiration Date Visits Requ ested Visits Authorized [id number] 1 1 Encounter Details Date Type Department Care Team Description 12/28/2020 Surgery Gastroenterology at [facility] Barry Pendleton UPPER EUS- ENDOSCOPIC [facility] Celia [place] [address] [facility] [phone] DR GASTROENTEROLOGY [place], [place] [address] Social History Tobacco Use Types [...] the day after the procedure, use an ejel-yvj-olfoywd spray to numb yourthroat. Sucking on throat [...] occurs, please contact your Doctor. Please call [phone] before 8pm Mon-Fri with problems, questions or concerns. If you call after 8pm or on weekends, call the Hospital at [phone] and ask to speak to the Outreach Consultant electronics computer mechanic and the casting machine control board operator will contact that person for you. When should you call for help? Call [phone] anytime you think you may need emergency [...] any problems. Where can you learn more? [facility] View your After Visit Summary and more online at [email or web address] If you would like to provide feedback [...] cost to you. Content Version: 12.2 ?? 5250-2909 [employer]. Care instructions adapted under license by [facility]. If you have questions about a medical condition or this instruction, always ask your healthcare professional. [employer] disclaims any warranty or liability for your [...] Take 1 capsule by 60 capsule 5 06/0 04/2019 100 mg Capsule mouth 2 times [...] the past 24 hour(s)). ASSESSMENT AND PLAN Shirlene Kovacs is a 35 y.o. y/o [...] Action Plan 9:07 AM EDT) [facility] Note: Formatting of this note might be [...] Component Value Ref Test Analysis Performed At [facility] gist Range Method Time Signature UPPER [facility] PROVATION ENDOSCOPIC Endoscopy ULTRASOUND _ Procedure Date: 12/28/2020 1:19 PM ? Patient Name: Shirlene Kovacs ? Date of : 1985 ? Age: 35 ? Order #: [id number] ? Instrument Name: GF-UE [id number] ? Procedure: ? Upper EUS Indications: ? Exclusion of chronic pancreatitis Providers: ? Barry Pendleton MD, Kyle ? Debby Lerner Jeanne ? Venessa Landry, Winch Truck Operator Referring MD: ?Autumn Crum MD Medicines: ? Monitored Anesthesia [...] PROVATION documented in this encounter Visit Diagnoses Diagnosis Chronic hepatitis C without hepatic coma documented in this encounter Administered Medications Inactive Administered Medications - up to 3 most recent administrations Medication Order MAR Action Action Date Dose Rate Site lactated ringers infusion New Bag 12/28/2020 12:08 PM 100 mL/hr 100 mL/hr 100 mL/hr, Intravenous, EST CONTINUOUS, Starting on Sun12/28/20 at 1215, Until Sun12/28/20 at 1642, Endoscopy (Day of Procedure) documented in this encounter Active and Recently Administered Medications Times are shown in EST. Continuous Medication Order 12/26/2020 12/27/2020 12/28/2020 lactated ringers infusion 1208 ( New Bag - Provider: Esperanza Maki RN) 100 mL/hr, Intravenous, CONTINUOUS, Star ting on Sun12/28/20 at 1215, Until Sun12/28/20 at 1642, Endoscopy (Day of Procedure) documented in this encounter Care Teams Tube Machine Operator Relationship Specialty Start Date End Date Autumn Krishnan APRN PCP - General 05/16/[address] [place] [address] documented as of this encounter
--- OUTSIDE RECORDS SUMMARY | 2021-10-20 07:55 | XMS_ITS | Encounter Summary ---
:1985 Author Organization [facility] [place] [address] Care Team Providers Name Role Phone Autumn Krishnan APRN Primary Care Provider [phone] Encounter Details Date Type Department Care Team Description 07/15/2020 Hospital Encounter Laboratory [place] [address] Social History Tobacco Use Types Packs/Day [...] Take 1 tablet by 30 tablet 3 0 04/2019 75 mcg Tablet mouth daily. polyethylene glycol Take 17 g by mouth 510 g 5 07/04/19 20 (Miralax) 17 gram/dose 2 times daily. PowderIndications: Constipation, unspecified constipation type buprenorphine-naloxone Place 16 mg of 56 each 0 1 08/04/2020 (SUBOXONE) 8-2 mg Film opiate under the [...] Date/Time Associated Comments Diagnosis OPIOIDS CONFIRMATION Routine 07/15/2020 11:45 Opioid use disor mario Results for this PANEL, URINE AM EDT procedure are i n the results section. [facility] NOVEL Routine 07/15/2020 11:45 Opioid use disorder Resu lts for this PSYCHOACTIVE AM EDT procedure are i n SUBSTANCES (FORENSIC INVESTIGATOR) the results SCREEN 1, URINE section. RAPID DRUG SCREEN, Routine 07/15/2020 11:45 Opioid use disorde r Results for this COMPLIANCE MONITORING AM EDT proced ure are in the results section. URINE DRUG SCREEN Routine 07/15/2020 11:45 Opioid use disor mario BY INSTRUMENT AM EDT [facility] ALCOHOL Routine 07/15/2020 11:45 Opioid use disorder Re sults for this BIOMARKERS, URINE AM EDT procedure are in the results section. THC (MARIJUANA), Routine 07/15/2020 11:45 Results for this URINE, CONFIRMATION AM EDT procedur e are in the results section. documented in this encounter Results THC (Marijuana), Urine Confirmation (07/15/2020 11:45 AM EDT) Component Value Ref Test Analysis Performed At [facility] gist Range Method Time Signature U THC Conf COLEEN Test ? Result ?Flag ??Unit ?? RefValue [facility] Carboxy-THC Confirmation, U HO SPITAL ??Carboxy-THC- by GC/MS ?>500.0 ?ng/mL ??Cutoff: 3.0 LABORATORY ??Carboxy-THC Interpretation ? Positive. ? ADDITIONAL INFORMATION ------ ?This report is intended for use in clinical monitoring and ?management of patients. ??It is not intended for use i n ?employment-related testing. ?This test was developed and its performance characteri stics ?determined by [facility] in a manner consistent with CLIA ?requirements. This test has not been cleared or approv ed by ?the U.S. Food and Drug Administration. ?Test Performed by: ?[facility] ?[address] [place] [address] ?Steel Wheel Engraver: Magdaleno Henriquez M.D. Ph.D.; CLIA# [id number] Specimen Anatomical Collection Method Collection Time Receive d Time (Source) Location / / Volume Laterality Urine 07/15/2020 11:45 07/16/2020 1:14 AM EDT PM EDT Resulting Agency Comment Spec In Lab Namita Moran MD URINE ORDERABLES Performing Organization Address City/State/[place] [address] (ABNORMAL) Opioids Confirmation Panel, Urine (07/15/2020 11:45 AM EDT) P athologist Signature U Morphine Lvl <10.0 <=9.9 [facility] ng/mL [facility] Comment: The presence of morphine may [...] ng/mL. U Oxymorphone Lvl <10.0 <=9.9 ng/mL [facility] Comment: Oxymorphone may arise from the use of ox ymorphone-containing drugs or by metabolism of oxycodone. Cutoff = 10 ng/ mL. U Hydromorphone Lvl <10.0 <=9.9 ng/mL [facility] Comment: Hydromorphone may arise from the use of hydromorphone-containing drugs or by metabolism of morphine. Cutoff = 10 ng/m L. U Dihydrocodeine Lvl <10.0 <=9.9 ng/mL [facility] Comment: Dihydrocodeine may arise from the use of dihydrocodeine-containing drugs or by metabolism of hydrocodone (minor metabol ite). Cutoff = 10 ng/mL. U Naloxone Lvl >1000.0 (H) <=4.9 ng/mL [facility] Comment: Naloxone is not recognized as a metaboli te of other opioids and its presence indicates the use of naloxone or naloxon e-containing products such as Suboxone??. Patients taking a low dose o f naloxone may be compliant despite a naloxone result below the limit of detec tion. Cutoff = 5 ng/mL. U Codeine Lvl <10.0 <=9.9 ng/mL [facility] Comment: Codeine is not [...] ng/mL. U Noroxycodone Lvl <10.0 <=9.9 ng/mL [facility] Comment: Noroxycodone is a metabolite of oxycodon e and its presence indicates oxycodone use. Cutoff = 10 ng/mL. U Oxycodone Lvl <5.0 <=4.9 ng/mL [facility] Comment: Oxycodone is not [...] ng/mL. U 6-SAUL Lvl <5.0 <=4.9 ng/mL [facility] Comment: 6-SAUL: The presence of 6-monoacetylmorph ine (6-SAUL) indicates heroin use. 6-SAUL is metabolized to morphine. Cutoff = 5 n g/mL. U Norhydrocodone Lvl <10.0 <=9.9 ng/mL [facility] Comment: Norhydrocodone is the major met abolite of hydrocodone. Cutoff = 10 ng/mL. U O-Desmethyltramadol Lvl <25.0 <=24.9 ng/mL [facility] Comment: O-desmethyltramadol is a metabolite of t ramadol and its presence indicates tramadol use. Cutoff = 25 ng/mL. U Hydrocodone Lvl <10.0 <=9.9 ng/mL [facility] Comment: Hydrocodone may arise from the use of hy drocodone-containing drugs or by metabolism of codeine. When generated by the metabolism of codeine, the concentration of hydrocodone is typicall y less than the concentration of codeine. Hydrocodone is metabolized to n orhydrocodone, dihydrocodeine, and hydromorphone (minor metabolite). Cutoff = 10 ng/mL. U Norfentanyl Lvl 1.5 (H) <=0.9 ng/mL [facility] Comment: Norfentanyl is a metabolite of fentanyl and its presence indicates fentanyl use. Cutoff = 1 ng/mL. U Tramadol Lvl <25.0 <=24.9 ng/mL [facility] Comment: Tramadol is not recognized as a metaboli te of other opioids and its presence indicates the use of tramadol-containing drugs. The presence of tramadol in the absence of O-desmethyltramadol suggests placement of tramadol directly into the urine specimen rather than ingestion. Cu toff = 25 ng/mL. U Norbuprenorphine Lvl >1000.0 (H) <=4.9 ng/mL [facility] Comment: Norbuprenorphine is a metabolite of bupr enorphine and its presence indicates use of buprenorphine or combination prod ucts such as Suboxone??. Cutoff = 5 ng/mL. U Fentanyl Lvl <1.0 <=0.9 ng/mL [facility] Comment: Fentanyl is not recognized as a metaboli te of other opioids and its presence indicates the use of fentanyl-containing drugs. The presence of fentanyl in the absence of norfentanyl suggests placemen t of fentanyl directly into the urine specimen rather than ingestion. Cutoff = 1 ng/mL. U Buprenorphine Lvl 900.0 (H) <=4.9 ng/mL [facility] Comment: Buprenorphine is not recognized as a met abolite of other opioids and its presence indicates the use of buprenorph ine or combination products such as Suboxone??. Patients taking a low dose o f buprenorphine may be compliant despite a buprenorphine result below the limit o f detection. Cutoff = 5 ng/mL. U EDDP+ Lvl <25.0 <=24.9 ng/mL [facility] Comment: EDDP+ is a metabolite of methadone. The presence of EDDP+ indicates use of methadone. Cutoff = 25 ng/mL. U Methadone Lvl <25.0 <=24.9 ng/mL [facility] Comment: Methadone is not recognized as a metabol ite of other opioids and its presence indicates the use of methadone-containin g drugs. The presence of methadone in the absence of EDDP+ suggests placement of methadone directly into the urine specimen rather than ingestion. Cutoff = 25 ng/mL. Opioid Panel Interp See Comment [facility] Comment: This test was performed using liquid chr omatography tandem mass spectrometry (LC-MS/MS). This test was developed and its performance characteristics determined by the Department of Patholog y and Laboratory Medicine at [facility]. It h as not been cleared or approved by the FDA. The laboratory is regulated under [place] as qualified to perform high-complexity testing. This test is us ed for clinical purposes and should not be used for investigational or research purposes. For any interpretation questions, please contact the laboratory at [phone]. Specimen Anatomical Collection Method Collection Time Receive d Time (Source) Location / / Volume Laterality Urine 07/15/2020 11:45 07/16/2020 7:14 AM EDT AM EDT Resulting Agency Comment Spec In Lab Namita Moran MD URINE ORDERABLES Performing Organization Address City/State/[place] [address] (ABNORMAL) Rapid Drug Screen, Compliance Monitoring (07/15/2020 11:45 AM EDT) [facility] Method Time Signature U Barbiturates None None [place]LE[place] Screen Detected Detected [facility] Comment: The barbiturate screen detects barbitura [...] U Benzodiazepines Screen None Detected None Detected [facility] Comment: The benzodiazepines screen [...] U Cocaine Screen None Detected None Detected [facility] Comment: The cocaine metabolites [...] Cannabinoid Screen Presumptive Pos (A) None Detected [facility] Comment: The marijuana metabolites screen detects the THC metabolite (00-htt-6-carboxy-delta 9-THC) at concen trations >20 ng/mL. A ? Presumptive Positive? result indicates that the screening result was positive but has not yet been confirmed by a highly-specific method. As with any screen, occasional false positive re sults from cross-reacting substances may occur. Not for Medico-Legal Purposes. U Tricyclics Screen None Detected None Detected [facility] Comment: The tricyclics screen detects [...] U Ethanol Screen None Detected None Detected [facility] Comment: This urine ethanol assay detect s ethanol at concentrations >/= 100 mg/L. U Amphetamines Screen None Detected None Detected [facility] Comment: The amphetamine screen [...] Screen None Detected None Detected [place] Comment: No adulteration or dilution of this urin e sample was detected. All urine samples submitted for urine drugs of abu se analysis are tested for creatinine concentration, pH, and for the presence of oxidants, nitrites, and chromate. Specimen Anatomical Collection Method Collection Time Receive d Time (Source) Location / / Volume Laterality Urine 07/15/2020 11:45 07/15/2020 9:04 AM EDT PM EDT Resulting Agency Comment Spec In Lab Namita Moran MD URINE ORDERABLES Performing Organization Address City/[facility]/ZIP Code Phon [place] [address] Alcohol Biomarkers (07/15/2020 11:45 AM EDT) [facility] Method Time Signature Alcohol Negative Cutoff: COLEEN BERGER[facility]ARATI Biomarkers 500 ng/mL [facility] Comment: ADDITIONAL INFORMATIO N This test was developed and its performa nce characteristics determined by [facility] in a manner co nsistent with CLIA requirements. This test has not been ruma ared or approved by the U.S. Food and Drug Administration. Test Performed by: [facility] [address] [address] Steel Wheel Engraver: Magdaleno Henriquez M.D. Ph. D.; CLIA# [id number] Specimen Anatomical Collection Method Collection Time Receive d Time (Source) Location / / Volume Laterality Urine 07/15/2020 11:45 07/16/2020 1:14 AM EDT PM EDT Resulting Agency Comment Spec In Lab Namita Moran MD CHEMISTRY ORDERABLES Performing Organization Address City/[facility]/[place] [address] Novel Psychoactive Substances, Urine (07/15/2020 11:45 AM EDT) [facility] gist Method Time Signature U FORENSIC INVESTIGATOR Screen See Scan [facility] Comment: Test performed by [facility], [address] [place] [address], [place] [address] Specimen Anatomical Collection Method Collection Time Receive d Time (Source) Location / / Volume Laterality Urine 07/15/2020 11:45 07/16/2020 AM EDT 11:37 AM EDT Narrative This result has an attachment that is no t available. Resulting Agency Comment Spec In Lab Namita Moran MD URINE ORDERABLES Performing Organization Address City/State/ZIP Code Phon e Number [place] [id number] documented in this encounter Visit Diagnoses Diagnosis Opioid use disorder documented in this encounter Care Teams Vending Attendant Relationship Specialty Start Date End Date Autumn Krishnan APRN PCP - General 05/16/[address] [place] [id number] documented as of this encounter
--- OUTSIDE RECORDS SUMMARY | 2021-10-20 07:55 | XMS_ITS | Encounter Summary ---
:1985 Author Organization [place] [address] Care Team Providers Name Role Phone Autumn Krishnan APRN Primary Care Provider [phone] Encounter Details Date Type Department Care Team Description 10/04/2020 Orders Only Gastroenterology at [facility] [place] [address] [address] [phone] [place], [place] [address] (Wo rk) Social History Tobacco Use Types [...] Dumas, Understanding Action Plan 9:07 AM EDT) [facility] Note: Formatting of this note might be d ifferent from the original. SVR12 through treatment with Mavyret x 8 weeks documented as of this encounter Visit Diagnoses Not on filedocumented in this encounter Care Teams Model Maker Apprentice Relationship Specialty Start Date End Date Autumn Krishnan APRN PCP - General 05/16/20 [address] [place] [id number] documented as of this encounter
--- OUTSIDE RECORDS SUMMARY | 2021-10-20 07:55 | XMS_ITS | Encounter Summary ---
:1985 Author Organization [facility] [place] [address] Care Team Providers Name Role Phone Genet Holland Primary Care Provider Reason for Visit Reason Comments Care Encounter Details Date Type Department Care Team Description 11/13/2019 Visit Obstetrics and Jennifer Wu, Lynne ry of left Gynecology at [facility] CNM thumb, initial [facility] encounter [facility] [address] [place], [place] OBSTETRICS & [phone] GYNECOLOGY [phone] [place], [place] [address] Social History Tobacco Use Types [...] Sign Reading Time Taken Comments Blood Pressure 130/92 11/13/2019 2:36 PM EDT Pulse 82 11/13/2019 2:36 PM EDT Temperature - - Respiratory Rate 18 11/13/2019 2:36 PM EDT Oxygen Saturation 99% 11/13/2019 2:36 PM EDT Inhaled Oxygen Concentration - - Weight 88.3 kg (194 lb 11.2 oz) 11/13/2019 2:36 PM EDT Height 175.3 cm (5' 9) 11/13/2019 2:36 PM EDT Body Mass Index 28.75 11/13/2019 2:36 PM EDT documented in this encounter Progress Notes Yesenia Coker MD - 11/13/2019 3:00 PM EDT 4 Week Exam Subjective: Shirlene Kovacs is a 34 y.o. who presents at 4 weeks post , for a mood check followinga spontaneous vaginal delivery at 38w6d gestation. She delivered a baby gir named Laverne, who weighed 3220g. Baby has been doing well without problems and is both breast and bottle feeding for supplementation. She lets her try on each breast first and then supplements afterward. She states that is going well, and the baby is gaining weight appropriately. Shirlene's vaginal bleeding has largely stopped. She has normal bowel function and normal bladder function. Shirlene denies depression, her mood is described as stable. She has been taking Prozac 20 mg every morning. Her main concern today is fatigue during the day, which she believes is unrelated to the baby not sleeping well. She reports that she is eating and resting well, and has adequate help at home. She is thinking of POPs for contraception. She reports severe left thumb pain due to slamming her thumb in the lamb of a car. It hurts to move the joint. No numbness or tingling. No other injury. Objective: BP (!) 130/92 Pulse 82 Resp 18 Ht 175.3 cm (5' 9) Wt 88.3 kg (194 lb 11.2 oz) LMP 11/10/2018 (LMP Unknown) SpO2 99% Yes BMI 28.75 kg/m?? Gen: Resting comfortably in chair, appears alert and interactive MSK: Left MCP joint on thumb very tender to gentle squeeze/palpation, no obvious deformity, mildly erythmatous depression screening: negative, scoring 2 on her depression screen. Assessment/Plan: 1. Routine care: - 2 weeks PP without evidence of depression. - Successfully both breast and bottle feeding. - Follow up in 2 weeks for 6 week PP check. - Contraceptive options discussed information provided on POPs. To be discussed further at 6 wk PP. - Continue pelvic rest until 6 week visit. Patients made aware of possible fertility. - Continue PNV's daily. - Call if any questions or problems in the meantime. 2. Acute injury of left thumb. Exam concerning for possible hairline fracture. - 2 view XR of left thumb ordered 3. Bipolar Disorder, Anxiety, PTSD with history of suicide attempt 4. History of ROLAND, treated with Suboxone 8 mg BID 5. Chronic Hepatitis C with elevated viral load in ([phone] on 09/24/2019) - Repeat HIV, Hep C viral load and genotype at ~2 months ; referral to ID placed on discharge from - will plan to follow-up when no longer breast feeding 6. History of Hodgkins Lymphoma s/p doxorubicin and irradiation in 2002, with reassuring EF of 65% 7. Hypothyroid treated with levothyroxine, stable. 8. Asthma, rare inhaler use ?? Patient discussed with Jennifer Wu, attending CNM. Yesenia Coker MD PGY-2 11/13/2019 Jennifer Wu CNM - 11/13/2019 3:00 PM EDT The care of Shirlene Kovacs was discussed with me at the time of the visit or immediately after thevisit. The assessment and plan were formulated in discussion with me and I agree with them as documented. I have reviewed the history, physical exam, assessment and plan with the resident. I personally evaluated this patient including examining her left hand and agree with the recommendation for X-R of her L thumb. documented in this encounter Plan of Treatment Not on filedocumented as of this encounter Visit Diagnoses Diagnosis Injury of left thumb, initial encounter documented in this encounter Care Teams Audiovisual Production Specialist Relationship Specialty Start Date End Date Genet Holland PA PCP - General Family Medicine 02/06/19 05/15/[address] [place] [id number] documented as of this encounter
--- OUTSIDE RECORDS SUMMARY | 2021-10-20 07:55 | XMS_ITS | Encounter Summary ---
:1985 Author Organization [facility] [place] [address] Care Team Providers Name Role Phone Genet Holland Primary Care Provider Encounter Details Date Type Department Care Team Description 04/01/2020 Hospital Encounter Laboratory [place] [address] Social History Tobacco Use Types Packs/Day [...] 90 tablet 2 11/202006/09/2020 Tablet mouth daily. buprenorphine-naloxone Place 16 mg of 56 each 0 1 04/14/2020 (SUBOXONE) 8-2 mg Film opiate under the [...] Date/Time Associated Comments Diagnosis OPIOIDS CONFIRMATION Routine 04/01/2020 4:20 Opioid use Resu lts for this PANEL, URINE PM EST disorder procedure are i n the results section. RAPID DRUG SCREEN, Routine 04/01/2020 4:20 Opioid use Result s for this COMPLIANCE MONITORING PM EST disorder proced ure are in the results section. HC URINE DRUG SCREEN BY Routine 04/01/2020 4:20 Opioid use INSTRUMENT PM EST disorder HC [facility] BENZODIAZEPINES Routine 04/01/2020 4:20 Opioid use Re sults for this CONFIRMATION, URINE PM EST disorder procedur e are in the results section. documented in this encounter Results (ABNORMAL) Opioids Confirmation Panel, Urine (04/01/2020 4:20 PM EST) P athologist Signature U Morphine Lvl <10.0 <=9.9 [facility] ng/mL [facility] Comment: The presence of morphine may [...] mL. U Hydromorphone Lvl <10.0 <=9.9 ng/mL [facility] Comment: Hydromorphone may arise from the use of hydromorphone-containing drugs or by metabolism of morphine. Cutoff = 10 ng/m L. U Dihydrocodeine Lvl <10.0 <=9.9 ng/mL [facility] Comment: Dihydrocodeine may arise [...] ng/mL. U Codeine Lvl <10.0 <=9.9 ng/mL [facility] Comment: Codeine is [...] ng/mL. U Noroxycodone Lvl <10.0 <=9.9 ng/mL [facility] Comment: Noroxycodone is a metabolite of oxycodon e and its presence indicates oxycodone use. Cutoff = 10 ng/mL. U Oxycodone Lvl <5.0 <=4.9 ng/mL [facility] Comment: Oxycodone is not a recognized metabolite of other opioids and its presence indicates use of an oxycodone-containing drug. Oxycodone is metabolized to oxymorphone and noroxycodone. The presen ce of oxycodone in the absence of its metabolites (noroxycodone, oxymorphone) suggests placement of oxycodone directly into the urine specimen rather than ingestion. Cutoff = 5 ng/mL. U 6-SALU Lvl <5.0 <=4.9 ng/mL [facility] Comment: 6-SAUL: The presence of 6-monoacetylmorph ine (6-SAUL) indicates heroin use. 6-SAUL is metabolized to morphine. Cutoff = 5 n g/mL. U Norhydrocodone Lvl <10.0 <=9.9 ng/mL [facility] Comment: Norhydrocodone is the [...] Cutoff = 10 ng/mL. U Norfentanyl Lvl 1.6 (H) <=0.9 ng/mL [facility] Comment: Norfentanyl is a metabolite of fentanyl and its presence indicates fentanyl use. Cutoff = 1 ng/mL. U Tramadol Lvl <4.0 <=3.9 ng/mL [facility] Comment: Tramadol is not recognized as a metaboli te of other opioids and its presence indicates the use of tramadol-containing drugs. The presence of tramadol in the absence of O-desmethyltramadol suggests placement of tramadol directly into the urine specimen rather than ingestion. Cu toff = 4 ng/mL. U Norbuprenorphine Lvl >1000.0 (H) <=4.9 ng/mL [facility] Comment: Norbuprenorphine is a metabolite of bupr enorphine and its presence indicates use of buprenorphine or combination prod ucts such as Suboxone??. Cutoff = 5 ng/mL. U Fentanyl Lvl <1.0 <=0.9 ng/mL [facility] Comment: Fentanyl is not recognized as a metaboli te of other opioids and its presence indicates the use of fentanyl-containing drugs. The presence of fentanyl in the absence of norfentanyl suggests placemen t of fentanyl directly into the urine specimen rather than ingestion. Cutoff = 1 ng/mL. U Buprenorphine Lvl 973.4 (H) <=4.9 ng/mL [facility] Comment: Buprenorphine is not recognized as a met abolite of other opioids and its presence indicates the use of buprenorph ine or combination products such as Suboxone??. Patients taking a low dose o f buprenorphine may be compliant despite a buprenorphine result below the limit o f detection. Cutoff = 5 ng/mL. U EDDP+ Lvl <4.0 <=3.9 ng/mL [facility] Comment: EDDP+ is a metabolite of methadone. The presence of EDDP+ indicates use of methadone. Cutoff = 4 ng/mL. U Methadone Lvl <4.0 <=3.9 ng/mL [facility] Comment: Methadone is not recognized as a metabol ite of other opioids and its presence indicates the use of methadone-containin g drugs. The presence of methadone in the absence of EDDP+ suggests placement of methadone directly into the urine specimen rather than ingestion. Cutoff = 4 ng/mL. Opioid Panel Interp See Comment [facility] Comment: This test was performed using liquid chr omatography tandem mass spectrometry (LC-MS/MS). This test was developed and its performance characteristics determined by the Department of Patholog y and Laboratory Medicine at [facility]. It h as not been cleared or approved by the FDA. The laboratory is regulated under [place] as qualified to perform high-complexity testing. This test is us ed for clinical purposes and should not be used for investigational or research purposes. For any interpretation questions, please contact the laboratory at [phone]. Specimen Anatomical Collection Method Collection Time Receive d Time (Source) Location / / Volume Laterality Urine specimen 04/01/2020 4:20 PM 021 7:21 (specimen) EST AM EST Resulting Agency Comment Spec In Lab Namita Moran MD URINE ORDERABLES Performing Organization Address City/State/ZIP [place] [address] Rapid Drug Screen, Compliance Monitoring (04/01/2020 4:20 PM EST) [facility] Method Time Signature U Barbiturates None None [facility] Screen Detected Detected [facility] Comment: The barbiturate screen detects barbitura [...] U Benzodiazepines Screen None Detected None Detected [facility] Comment: The benzodiazepines [...] U Cocaine Screen None Detected None Detected [facility] Comment: The cocaine [...] Screen None Detected None Detected Pippa STANTON [facility] Comment: The marijuana metabolites screen detects the THC metabolite (61-dgo-0-carboxy-delta 9-THC) at concen trations >20 ng/mL. A ? Presumptive Positive? result indicates that the screening result was positive but has not yet been confirmed by a highly-specific method. As with any screen, occasional false positive re sults from cross-reacting substances may occur. Not for Medico-Legal Purposes. U Tricyclics Screen None Detected None Detected KELLI MARQUIS [facility] Comment: The tricyclics screen detects tricyclic [...] U Ethanol Screen None Detected None Detected [facility] Comment: This urine ethanol assay detect s ethanol at concentrations >/= 100 mg/L. U Amphetamines Screen None Detected None Detected [facility] Comment: The amphetamine [...] Screen None Detected None Detected Pippa STANTON [facility] Comment: No adulteration or dilution of this urin e sample was detected. All urine samples submitted for urine drugs of abu se analysis are tested for creatinine concentration, pH, and for the presence of oxidants, nitrites, and chromate. Specimen Anatomical Collection Method Collection Time Receive d Time (Source) Location / / Volume Laterality Urine specimen 04/01/2020 4:20 PM 021 9:19 (specimen) EST PM EST Resulting Agency Comment Spec In Lab Namita Moran MD URINE ORDERABLES Performing Organization Address City/State/ZIP [place] [address] Benzodiazepine, Urine Confirmation (04/01/2020 4:20 PM EST) Component Value Ref Test Analysis Performed At [facility] gist Range Method Time Signature U Benzo Conf COLEEN Test ? Result ?? Flag ??Unit ?? RefValue [facility] Benzodiazepines Confirmation, U HOSPITAL ??Alprazolam by LC-MS/MS ? Negative ? ng/mL ??Cutoff: 10 LABORATORY ??Alpha-Hydroxyalprazolam b y LC-MS/MS ?Negative ? ng/mL ??Cutoff: 10 ??Chlordiazepoxide by LC-MS /MS ? Negative ? ng/mL ??Cutoff: 10 ??Clonazepam by LC-MS/MS ? Negative ? ng/mL ??Cutoff: 10 ??7-aminoclonazepam by LC-M S/MS ?Negative ? ng/mL ??Cutoff: 10 ??Diazepam by LC-MS/MS ? Negative ? ng/mL ??Cutoff: 10 ??Nordiazepam by LC-MS/MS ?Negative ? ng/mL ??Cutoff: 10 ??Midazolam by LC-MS/MS ?Negative ? ng/mL ??Cutoff: 10 ??Alpha-Hydroxy Midazolam b y LC-MS/MS ?Negative ? ng/mL ??Cutoff: 10 ??Oxazepam by LC-MS/MS ? Negative ? ng/mL ??Cutoff: 10 ??Temazepam by LC-MS/MS ?Negative ? ng/mL ??Cutoff: 10 ??Clobazam by LC-MS/MS ? Negative ? ng/mL ??Cutoff: 10 ??N-Desmethylclobazam by LC -MS/MS ?Negative ? ng/mL ??Cutoff: 10 ??Flunitrazepam by LC-MS/MS ?Negative ? ng/mL ??Cutoff: 10 ??7-aminoflunitrazepam by L C-MS/MS ? Negative ? ng/mL ??Cutoff: 10 ??Flurazepam by LC-MS/MS ? Negative ? ng/mL ??Cutoff: 10 ??2-Hydroxy Ethyl Flurazepa m by LC-MS/MS ? Negative ? ng/mL ??Cutoff: 10 ??Lorazepam by LC-MS/MS ?Negative ? ng/mL ??Cutoff: 10 ??Prazepam by LC-MS/MS ? Negative ? ng/mL ??Cutoff: 10 ??Triazolam by LC-MS/MS ?Negative ? ng/mL ??Cutoff: 10 ??Alpha-Hydroxy Triazolam b y LC-MS/MS ?Negative ? ng/mL ??Cutoff: 10 ??Zolpidem by LC-MS/MS ? Negative ? ng/mL ??Cutoff: 10 ??Zolpidem Trehrv-9-Qohjwrm lic acid by LC- ? Negative ? ng/mL ??Cutoff: 10 ?MS/MS ??Benzodiazepines Interpretation ? Negat lars. ? ADDITIONAL INFORMATION ------ ?This report is intended for use in clinical monitoring and ?management of patients. ??It is not intended for use i n ?employment-related testing. ?This test was developed and its performance characteri stics ?determined by [facility] in a manner consistent with CLIA ?requirements. This test has not been cleared or approv ed by ?the U.S. Food and Drug Administration. ?Test Performed by: ?[facility] [address] ?[address] [place] [address] ?House Nurse: Magdaleno Henriquez M.D. Ph.D.; CLIA# [id number] Specimen Anatomical Collection Method Collection Time Receive d Time (Source) Location / / Volume Laterality Urine specimen 04/01/2020 4:20 PM 021 (specimen) EST 11:30 AM EST Resulting Agency Comment Spec In Lab Namita Moran MD URINE ORDERABLES Performing Organization Address City/State/[facility] Phon e Number [place] [phone] documented in this encounter Visit Diagnoses Diagnosis Opioid use disorder documented in this encounter Care Teams Neonatologist Relationship Specialty Start Date End Date Genet Holland PA PCP - General Family Medicine 02/06/19 05/15/[address] [place] [id number] documented as of this encounter
--- OUTSIDE RECORDS SUMMARY | 2021-10-20 07:55 | XMS_ITS | Encounter Summary ---
:1985 Author Organization [facility] [address] Care Team Providers Name Role Phone AriellaBrooklynAutumn ISHAAN Primary Care Provider [phone] Reason for Visit Reason Comments Prior Authorization Mavyret 100-40mg tablets Encounter Details Date Type Department Care Team Description 09/14/2020 Specialty Pharmacy Pharmacy at [facility] Victorina Jj Prior Authorization [facility] (Mavyret 100-40mg Drive tablets) [place] [id number] Social History Tobacco Use Types Packs/Day Years Used Date Current Every Day Smoker Cigarettes 1 Smokeless Tobacco: Never Used Alcohol Use Standard Drinks/Week Comments No 0 (1 standard drink = 0.6 oz pure alcoho l) Not during Sex Assigned at Date Recorded Female 04/13/2020 8:26 AM EST documented as of this encounter Progress Notes Victorina Jj - 09/14/2020 4:00 PM EDT [facility], Medication Prior Authorization Patient: Shirlene Kovacs Patient : 1985 Patient Address: [address] [place] [phone] (home) Medication Name: MAVYRET 100 MG-40 MG TABLET Medication ID: [id number] Patient Location: [facility] GASTRO 4L Patient Location Comment: Subscriber Insurance: Subscriber Insurance Comment: [employer] [place] Physician: MICAHEL STEWART Physician Comment: Sent Via: Fax Rainey: N/A Ref/Case/PA#: N/A Medication Strength Frequency Requested: Take 3 tablets by mouth daily x8 weeks Qty/Day Supply: New Start: New to Therapy Diagnosis & ICD-10 Code: Chronic hepatitis C without hepatic coma, B18.2 Patient Notified: No Submission Notes: None Ghislaine Jj 09/14/20 4:03 PM Victorina Jj - 09/14/2020 4:00 PM EDT [facility], Prior Authorization Approval Medication Name: MAVYRET 100 MG-40 MG TABLET Medication ID: [id number] Approval Dates: 09/14/2020 to 11/14/2020 Insurance requirements/notes: None Other Notes: None Case/Reference #: N/A Approval notification Received via: Fax Copay: $0 Copay assistance: None Copay Notes: Insurance mandated Pharmacy: D Pharmacy Fillable at [facility]: Yes Pharmacy staff will be reaching out to the patient to inform them of their medication's approval by their insurance. If applicable, a pharmacist will speak with the patient to offer our specialty pharmacy services and to arrange delivery of their medication. Ghislaine Jj 09/15/20 8:16 AM documented in this encounter Plan of Treatment Not on filedocumented as of this encounter Goals Goal Patient Goal Associated Recent Patient-Stated? Author Type Problems Progress DH Home Medication Patient On track Yes Leigh , Antony and Facing (10/12/2020 Rita Dumas Understanding Action Plan 9:07 AM EDT) [facility] Note: Formatting of this note might be d ifferent from the original. SVR12 through treatment with Mavyret x 8 weeks documented as of this encounter Visit Diagnoses Not on filedocumented in this encounter Care Teams Nurse Research Relationship Specialty Start Date End Date Autumn Krishnan APRN PCP - General 05/16/20 [place] [phone] documented as of this encounter
--- OUTSIDE RECORDS SUMMARY | 2021-10-20 07:55 | XMS_ITS | Encounter Summary ---
:1985 Author Organization [facility] [place] [address] Care Team Providers Name Role Phone Genet Holland Primary Care Provider Encounter Details Date Type Department Care Team Description 11/13/2019 Office Visit Obstetrics and Angela Funk, Opioid use disorder, Gynecology at [facility] severe, in sustained [address] 3B-1 maintenance therapy [place] [phone] Social History Tobacco Use Types Packs/Day Years Used Date Current Every Day Smoker Cigarettes 0.25 Smokeless Tobacco: Never Used Alcohol Use Standard Drinks/Week Comments No 0 (1 standard drink = 0.6 oz pure alcoho l) Not during Sex Assigned at Date Recorded Female 04/13/2020 8:26 AM EST documented as of this encounter Progress Notes Angela Funk, [facility] - 11/13/2019 4:00 PM EDT INDIVIDUAL THERAPY PROGRESS NOTE Telehealth Visit Note Shirlene Kovacs gave permission for and was seen for today's appointment by means of a Telehealth visit. Patient location during visit at home in [place] Other individual(s) present in the household - daughter Time Spent: 45 minutes CHIEF COMPLAINT/DIAGNOSIS: (symptoms, problem, or other factors providing rationale for today's encounter) Addiction SUBJECTIVE: Shirlene is 6 weeks with her second daughter. Her 4 year old daughter lives with her paternal grandmother, while Shirlene maintains her recovery and works toward reunification and housing. She lives by herself in an apartment and is adjusting to caring for her baby while also working toward other goals (Crash course, counseling). She has a strong and extensive support network, including Shelia, refinery operator light ends recovery, her mother, Nageles, Diversion, DCYF, her PO. She manages any triggers/cravings by reaching out to people in her support network. Shirlene is thrilled with being a new mother again and is enjoying her time with Ena. She is currently having short unsupervised visits with Leonard zapata and is excited with how well each visit goes. Shirlene relates that FODennis is supportive and kind and has offered any additional support and help that she would like. He also visited recently to meet Isaiasyinmary ann and the visit went very well. Pt reports she is happy to have his limited involvement and support for her choices and hard work in recovery. 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 She reports feeling proud of her efforts and encouraged in all of the ways she is thriving in her life now. TREATMENT MODALITY: Supportive OBJECTIVE: Ask for help and support. Support recovery behaviors Develop skills and tools to prevent relapse Practice daily self-care and mindfulness skills to manage stress and negative emotional states PERTINENT MENTAL STATUS EXAM: Appearance: Behavior: Calm, cooperative Mood: anxious, euthymic. Affect: congruent; this assessment is limited given that we interacted overthe telephone Thought Process: Linear, goal directed Associations: Intact Orientation: X3 Attention/Concentration: WNL Insight: Good Judgment: Good Safety Risk assessment: No S/I or H/I indicated ASSESSMENT: (include progress toward goals since last visit and patient's capacity to participate and benefit from continued treatment). Shirlene is 6 weeks the of her second daughter and is doing well at home. Her 4 year daughter lives with her paternal grandmother, while Shirlene maintains her recovery and works toward reunification. Shirlene has been sober since October of 2018 and appreciates support and suggestions for building recovery skills, coping strategies and sober networks and agrees to weekly check-ins as well as medication management with MD. PLAN: Revised goals or interventions: 1x/week individual counseling, alternating in office and telehealth,Tuesdays [x] No change in estimated length of treatment. Safety Risk Management: (specify plan to manage self harm/suicide/homicide risk findings if present): None indicated Next Appt: Sunday, 1:00 Assigned Homework: Mindfulness tools, coping skills and replacement activities. Patient Instruction/Education Provided: Verbal Patient understands the plan? [x} Yes documented in this encounter Plan of Treatment Not on filedocumented as of this encounter Visit Diagnoses Diagnosis Opioid use disorder, severe, in sustaine d remission, on maintenance therapy documented in this encounter Care Teams Yarn Weight And Strength Tester Relationship Specialty Start Date End Date Genet Holland PA PCP - General Family Medicine 02/06/19 05/15/20 [address] [place] [address] documented as of this encounter
--- OUTSIDE RECORDS SUMMARY | 2021-10-20 07:55 | XMS_ITS | Encounter Summary ---
:1985 Author Organization [place] [address] Care Team Providers Name Role Phone Autumn Krishnan APRN Primary Care Provider [phone] Reason for Visit Consultation (Routine) - Closed Specialty Diagnoses / Procedures Referred By Contact Refer red To Contact Gastroenterology Diagnoses Alcohol-induced chronic pancreatitis Other psychoactive substance abuse, uncomplicated Alcohol abuse, in remission Chronic viral hepatitis C dewnouqy-Aqiznlu-raydnbk chronic pancreatitis Napoleon Victor Gordon, Stuart R, MD MD [facility] DR Kelley [facility] [address] GASTROENTERO LOGY [id number] [address] Fax: Referral ID Status Reason Start Date Expiration Date Visits Requ ested Visits Authorized [id number] Closed 05/20/2020 05/20/2021 1 1 Encounter Details Date Type Department Care Team Description 09/07/2020 Office Visit G[facility]ology [place] [facility] Francis Roberts Chronic hepatitis C [facility] Celia [place] [address] [facility] [phone] Seay [facility] Social History Tobacco Use Types Packs/Day Years Used Date Current Every Day Smoker Cigarettes 1 Smokeless Tobacco: Never Used Alcohol Use Standard Drinks/Week Comments No 0 (1 standard drink = 0.6 oz pure alcoho l) Not during Sex Assigned at Date Recorded Female 04/13/2020 8:26 AM EST documented as of this encounter Progress Notes Francis Roberts MD - 09/07/2020 9:00 AM EDT [facility] Section of Gastroenterology and Hepatology Outpatient Consultation Reason for Visit: HCV and possible CP Referred by Genet Holland History of Present Illness: Here to reestablish care regarding chronic HCV She was seen here last 2017 She has a history of IVDU hodgkin's lymphoma, hypothyroidism HCV gt1a treatment naive She has not used illicite drug in two years She is on a suboxone program She would like to proceed with HCV treatment at this time She has two children, not , but interested in eventually having another child She is here with her mother who is support of her plan for HCV treatment. She is also inquiring about whether she does or doesn't have chronic pancreatitis. Review of Systems: All other systems negative except as above in HPI Past Medical History: Diagnosis Date ??? Abnormal [...] BX performed by Ugo Reed MD at [facility] ENDOSCOPY ??? PRO COLONOSCOPY, DIAGNOSTIC 08/20/2013 COLONOSCOPY, DIAGNOSTIC performed by Ugo Reed MD at [facility] ENDOSCOPY ??? PRO COLONOSCOPY, REMV LESN, SNARE 08/20/2013 COLONOSCOPY, POLYPECTOMY, REMOVAL LESION BY SNARE performed by Ugo Reed MD at [facility] ENDOSCOPY ??? PRO ENDOSCOPIC US EXAM, ESOPH 08/20/2013 UPPER EUS- ENDOSCOPIC ULTRASOUND performed by Ugo Reed MD at [facility] ENDOSCOPY ??? PRO UPPER GI ENDOSCOPY, DIAGNOSTIC 08/20/2013 EGD, UPPER GI ENDOSCOPY performed by Ugo Reed MD at [facility] ENDOSCOPY ??? SKIN BIOPSY HEAD/NECK ??? TUNNELED VENOUS CATHETER PLACEMENT Social History: reports that she has been smoking cigarettes. She has been smoking about 1.00 pack per day. She has never used smokeless tobacco. She reports current drug use. Drugs: Cocaine, Injected Drugs, Narcotics, and Opioids . She reports that she does not drink alcohol. Family History: family history includes Alcohol Use Disorder in her father; Cancer in an other family member. Current Outpatient Medications Medication Sig Dispense Refill ??? buprenorphine-naloxone (SUBOXONE) 8-[address] 16 mg of opiate under the tongue daily. 28 each 0 ??? FLUoxetine (PROzac) 20 mg Tablet Take 4 tablets by mouth daily. 120 tablet 2 ??? levothyroxine (Synthroid) 75 mcg Tablet Take 75 mcg by mouth daily. ??? ibuprofen (Advil;Motrin) 600 mg Tablet Take [...] 90 tablet 3 No current facility-administered medications for this visit. Allergies Allergen Reactions ??? Chantix [Varenicline] Seizure ??? Duloxetine Hcl ??? Laxative X-Lax ??? Phenolphthalein Other reaction(s): SEIZURES ??? Varenicline Tartrate Other reaction(s): seizure Nausea/Vomiting Physical Examination: There were no vitals taken for this visit. Alert and oriented, No acute distress Anicteric, acyanotic, MMM No neck adenopathy, no thyromegaly No wheezing Regular rhythm Abdomen soft, non-tender, non-distended, normal bowel sounds No edema No rashes Additional Testing: Reviewed available labs, imaging and endoscopy results in EDH/CIS as well as Scan Docs tab. Labs: Lab Results Component Value Date WBC 15.8 (H) 10/06/2019 HGB 11.0 (L) 10/06/2019 HCT 32.7 (L) 10/06/2019 MCV 97.3 (H) 10/06/2019 PLATELET 257 10/06/2019 Chemistry Component Value Date/Time NA 139 10/06/2019 0830 K 4.0 10/06/2019 0830 CL 105 10/06/2019 0830 CO2 24 10/06/2019 0830 BUN 13 10/06/2019 0830 CREATININE 0.55 (L) 10/06/2019 0830 Component Value Date/Time CALCIUM 8.5 10/06/2019 0830 ALKPHOS 152 (H) 10/06/2019 0830 AST 78 (H) 10/06/2019 0830 ALT 59 (H) 10/06/2019 0830 BILITOT 0.3 10/06/2019 0830 Lab Results Component Value Date ALT 59 (H) 10/06/2019 AST 78 (H) 10/06/2019 ALKPHOS 152 (H) 10/06/2019 BILITOT 0.3 10/06/2019 FIB 4 based upon most recent labs 1.34 90% NPV for advanced fibrosis Fibroscan Results: Median kPa: 6.8 Mean IQR: 19% (goal is <30 %) Number of valid measurements: 10 (at least 10 required) Number of invalid measurements: 10 Predicted fibrosis stage: F0-1 CAP (dB/m): 237 Estimated steatosis grade: 1/3 % hepatocytes affected: > 33 % IMPRESSION AND RECOMMENDATIONS: Shirlene Kovacs is a 35 y.o. woman with a history of Hodgkin's lymphoma and HCV treatment naive from IVDU currently abstinent for over two year interested in pursuing treatment. She does not have evidence of advanced fibrosis, and would be a candidate for simplified treatment plan with either Glecaprevir (300 mg) / pibrentasvir (120 mg) to be taken with food for a duration of 8 weeks, or Sofosbuvir (400 mg) / velpatasvir (100 mg) for a duration of 12 weeks. I have sent her for pre-treatment lab results. She should have assessment of quantitative HCV RNA and a hepaticfunction panel 12 weeks after completing treatment. Counseling about risks of HCV medication was also provided. Lastly, she says he energy management specialist has recommended that she be evaluate forchronic pancreatitis. I reviewed her EUS from 2013, and offered to repeat the study for her which she would like to do. She should continue to follow with her local energy management specialist Francis Roberts MD CC Autumn Krishnan, GEOSPATIAL ENGINEER [address] [place] [address] Genet Holland PA [address] [place] [address] documented in this encounter Plan of Treatment Scheduled Orders Name Type Priority Associated Diagnoses Order S chedule ENDOSCOPY CASE REQUEST: Procedures Routine Chronic hepatitis C Ordered: 09/07/2020 UPPER EUS- ENDOSCOPIC without hepatic com a ULTRASOUND documented as of this encounter Procedures Procedure Name Priority Date/Time Associated Comments Diagnosis HEMOGRAM Routine 09/07/2020 10:20 Chronic hepatitis Result s for this AM EDT C without hepatic procedure are in coma the results section. DIFFERENTIAL, AUTOMATED Routine 09/07/2020 10:20 Chronic hepat itis Results for this AM EDT C without hepatic procedure are in coma the results section. HC HCV QUANTIFICATION Routine 09/07/2020 10:20 Chronic hepatit is Results for this AM EDT C without hepatic procedure are in coma the results section. HC HIV SCREEN, 4TH Routine 09/07/2020 10:20 Chronic hepatitis Results for this GENERATION AM EDT C without hepatic procedure are in coma the results section. HC CBC,PLT & AUTO DIFF Routine 09/07/2020 10:20 Chronic hepati tis AM EDT C without hepatic coma HC CHORIONIC Routine 09/07/2020 10:20 Chronic hepatitis Result s for this GONADOTROPINS, SERUM AM EDT C without hepatic pr ocedure are in coma the results section. HEPATIC FUNCTION PANEL Routine 09/07/2020 10:20 Chronic hepati tis Results for this AM EDT C without hepatic procedure are in coma the results section. BASIC METABOLIC PANEL Routine 09/07/2020 10:20 Chronic hepatit is Results for this (NON-FASTING) AM EDT C without hepatic procedure are in coma the results section. documented in this encounter Results Differential, Automated (09/07/2020 10:20 AM EDT) P athologist Signature Neutrophils % 43.8 % [facility] Neutr Abs (ANC) 2.99 1.70 - [facility] 6.10 [facility] x10(3)[facility] LABORATORY Lymphocytes % 43.0 % [facility] Lymphocytes Abs 2.9 0.9 - 3.2 [facility] x10(3)/[facility] LABORATORY Monocytes % 9.7 % [facility] Monocyte Abs 0.7 0.3 - 0.9 [facility] x10(3)/[facility] LABORATORY Eosinophils % 2.5 % [facility] Eosinophils Abs 0.2 0.0 - 0.4 [facility] x10(3)/[facility] LABORATORY Basophils % 0.9 % [facility] Basophils Abs 0.1 0.0 - 0.1 [facility] x10(3)/[facility] LABORATORY Immature Gran % 0.10 % [facility] Comment: Immature granulocytes(IG's)percentage an d absolute count will include metamyelocytes, myelocytes, and promyelo cytes. Blood smears from CBCs yielding IG's will be scanned manually for concor dance. If this scan disagrees with the automated IG or if promyelocytes are not ed, a manual differential will be performed. Ayah Gran Abs 0.01 0.00 - 0.04 x10(3)/[facility] LABORATORY Specimen Anatomical Collection Method Collection Time Receive d Time (Source) Location / / Volume Laterality Blood 09/07/2020 10:20 09/07/2020 AM EDT 10:32 AM EDT Resulting Agency Comment Spec In Lab Francis Roberts MD HEMATOLOGY ORDERABLES Performing Organization Address City/State/ZIP Code [place] [address] (ABNORMAL) Hemogram (09/07/2020 10:20 AM EDT) Analysis Performed At Patho logist Time Signature WBC 6.8 4.0 - 9.5 [facility] x10(3)/[facility] LABORATORY RBC 4.46 4.00 - [facility] 5.21 [facility] x10(6)/[facility] LABORATORY Hemoglobin 14.2 11.7 - [facility] 15.[facility] gm/dL [facility] Hematocrit 42.4 35.7 - [facility] 45.8 % [facility] MCV 95.1 (H) 82.6 - [facility] 94.4 [facility] LABORATORY MCH 31.8 27.1 - [place] [facility] 32.0 pg [facility] MCHC 33.5 31.7 - [place] 35.0 gm/dL [facility] Platelets 251 145 - 357 [facility] x10(3)/[facility] LABORATORY RDWSD 41.3 37.0 - [facility] 46.0 [facility] LABORATORY RDWCV 11.9 11.5 - [facility] 14.1 % [facility] MPV 10.6 7.6 - 12.9 [facility] LABORATORY nRBC % Auto 0.0 % [facility] nRBC Abs Auto 0.000 0.000 - [facility] 0.000 [facility] x10(3)/[facility] LABORATORY Specimen Anatomical Collection Method Collection Time Receive d Time (Source) Location / / Volume Laterality Blood 09/07/2020 10:20 09/07/2020 AM EDT 10:32 AM EDT Resulting Agency Comment Spec In Lab Francis Roberts MD HEMATOLOGY ORDERABLES Performing Organization Address City/State/ZIP [place] [address] Beta HCG, quantitative (09/07/2020 10:20 AM EDT) P athologist Signature Beta hCG Quant <1 mlU/ML [facility] Comment: REFERENCE RANGES NON- FEMALE: ??Less than 5 mIU/m L POSTMENOPAUSAL FEMALE: ??Less than 8 mIU /mL ? -- FEMALES -- Weeks of ? HCG range ??(mIU/mL) ? 3 weeks ? 5.8 - 71.2 ? 4 weeks ? 9.5 - 750 ? 5 weeks ? 217 - 7,138 ? 6 weeks ? 158 - 31,795 ? 7 weeks ? 3,697 - 163,563 ? 8 weeks ? 32,065 - 149,571 ? 9 weeks ? 63,803 - 151,410 ?10 weeks ? 46,509 - 186,977 ?12 weeks ? 27,832 - 210,612 ?14 weeks ? 13,950 - 62,530 ?15 weeks ? 12,039 - 70,971 ?16 weeks ? 9,040 - 56,451 ?17 weeks ? 8,175 - 55,868 ?18 weeks ? 8,099 - 58,176 Specimen Anatomical Collection Method Collection Time Receive d Time (Source) Location / / Volume Laterality Blood 09/07/2020 10:20 09/07/2020 AM EDT 10:32 AM EDT Resulting Agency Comment Spec In Lab Francis Roberts MD CHEMISTRY ORDERABLES Performing Organization Address City/State/ZIP Code [place] [address] HIV Screen, 4th Generation ([facility]CGP/APD/NLH) (09/07/2020 10:20 AM EDT) Analysis Performed At [facility] Time Signature HIV-1/2 Ab and Negative Negative [facility] LABORATORY Comment: This 4th Generation HIV test screens for the presence of the HIV-1 p24 antigen as well as antibodies reactive against H IV-1 and HIV-2. A negative screen does not rule out an acute HIV infection. If acute HIV infection is suspected, testing should be repeated in 2 - 3 week s or HIV nucleic acid testing performed. HIV Comment Low Risk of HIV Infection [facility] LABORATORY Specimen Anatomical Collection Method Collection Time Receive d Time (Source) Location / / Volume Laterality Blood 09/07/2020 10:20 09/07/2020 AM EDT 10:32 AM EDT Resulting Agency Comment Spec In Lab Francis Roberts MD IMMUNOLOGY ORDERABLES Performing Organization Address City/State/[place] [address] Hepatitis C RNA, quantitative, PCR (09/07/2020 10:20 AM EDT) Component Value Ref Test Analysis Performed At Patholo gist Range Method Time Signature HCV Viral 1,032,519 IU/mL [facility] LABORATORY HCV Viral Result: [id number] IU/mL [facility] Indication for Study: Hepatitis C Infection [facility] Analysis: The Adan RealTime HCV assay is an in vitro reverse pulp operator LABORATORY polymerase chain reaction (RT-PCR)for the quantitation of hepatitis C viral (HCV) RNA in human serum or plasma (EDTA) from HCV-infected indivi duals. Sample: plasma (0.7 mL minimum volume) Method: Adan RealTime HCV Assay Linear Range: 12 IU/mL - 100,000,000IU/mL Note: The [employer]an RealTime HC V Assay has been approved by the U.S. Food and Drug Administration. Comment: [VERIFIED DATE]09.13.20 Verified By:Kailey Hugo (Electronic Signature) Specimen Anatomical Collection Method Collection Time Receive d Time (Source) Location / / Volume Laterality Blood 09/07/2020 10:20 09/08/2020 8:05 AM EDT AM EDT Resulting Agency Comment Spec In Lab Francis Roberts MD IMMUNOLOGY ORDERABLES Performing Organization Address City/[facility]/[place] [address] (ABNORMAL) Hepatic Function Panel (09/07/2020 10:20 AM EDT) P athologist Signature Total Protein 7.1 6.1 - 8.0 [facility] gm/dL [facility] Albumin 4.2 3.2 - 5.2 [facility] gm/dL [facility] AST 29 0 - 30 [facility] unit/L [facility] ALT 35 (H) 0 - 30 [facility] unit/L [facility] Alk Phos 90 35 - 105 [facility] unit/L [facility] Total 0.4 0.2 - 1.3 [facility] Bilirubin mg/dL [facility] Bili, Direct 0.1 0.0 - 0.3 [facility] mg/dL [facility] LAB[facility] Specimen Anatomical Collection Method Collection Time Receive d Time (Source) Location / / Volume Laterality Blood 09/07/2020 10:20 09/07/2020 AM EDT 10:32 AM EDT Resulting Agency Comment Spec In Lab Francis Roberts MD CHEMISTRY ORDERABLES Performing Organization Address City/State/ZIP Code [place] [address] Basic Metabolic Panel (non-fasting) (09/07/2020 10:20 AM EDT) P athologist Signature Glucose Lvl 88 65 - 199 [facility] mg/dL [facility] Comment: Diabetes: >=200 mg/dL plus symp toms BUN 10 8 - 18 mg/dL [facility] Creatinine 0.70 0.70 - 1.20 mg/dL [facility] Sodium 137 135 - 145 mmol/L [facility] Potassium 4.1 3.5 - 5.0 mmol/L [facility] Comment: Please note: ??Patients with WBC >100,00 0 may have falsely elevated Potassium levels. ??For accurate Potassium quantif ication in these patients send serum separator tube (gold top) for subsequent determinations. ??Contact the Clinical Chemistry Laboratory if there are any qu estions. Chloride 104 98 - 107 mmol/L [facility] CO2 22 22 - 31 mmol/L [facility] Anion Gap 11 5 - 15 mmol/L [facility] Calcium 9.2 8.5 - 10.5 mg/dL [facility] Estimated GFR 113 >=60 mL/min/1.73 m?? [facility] Comment: This patient? s estimated glomerular filtration rate (eGFR) is between 113 mL/min/1.73 m2 (patients with less muscl e mass) and 131 mL/min/1.73 m2 (patients with more muscle mass) as dete rmined by the CKD-EPI equation. Assessment of eGFR is not appropriate wh en creatinine concentrations are rapidly changing. For clinical decisions where creatinine clearance will affect therapy, a 24-hour urine creatinine lola lester may be advised. Assignment of CKD stage 1 - 5 for patien ts with an eGFR near the transition point between stages may be based on cli nical assessment of muscle mass and symptoms in addition to eGFR. Specimen Anatomical Collection Method Collection Time Receive d Time (Source) Location / / Volume Laterality Blood 09/07/2020 10:20 09/07/2020 AM EDT 10:32 AM EDT Resulting Agency Comment Spec In Lab Francis Roberts MD CHEMISTRY ORDERABLES Performing Organization Address City/State/ZIP Code [place] [address] documented in this encounter Visit Diagnoses Diagnosis Chronic hepatitis C without hepatic coma documented in this encounter Care Teams Powerhouse Mechanic Helper Relationship Specialty Start Date End Date Autumn Krishnan APRN PCP - General 05/16/20 [facility] [place] [address] documented as of this encounter
--- OUTSIDE RECORDS SUMMARY | 2021-10-20 07:55 | XMS_ITS | Encounter Summary ---
:1985 Author Organization [facility] [place] [address] Care Team Providers Name Role Phone Autumn Krishnan APRN Primary Care Provider [phone] Encounter Details Date Type Department Care Team Description 09/01/2020 Hospital Encounter [place] [address] Social History Tobacco Use Types Packs/Day [...] Sig Dispensed Refills Start Date End Date buprenorphine-naloxone Place 16 mg of 28 each [...] times daily. PowderIndications: Constipation, unspecified constipation type levothyroxine (Synthroid) Take 75 mcg by 0 [...] Procedure Name Priority Date/Time Associated Comments Diagnosis HC TRICHOMONAS GENE Routine 09/01/2020 11:30 Dysuria Resu lts for this AMPLIFICATION AM EDT procedure are in the results section. HC CHLAMYDIA GENE AMP Routine 09/01/2020 11:30 Dysuria Re sults for this AM EDT procedure are i n the results section. HC GC GENE AMP Routine 09/01/2020 11:30 Dysuria Results f or this AM EDT procedure are i n the results section. URINE HOLD Routine 09/01/2020 11:30 Results for this AM EDT procedure are i n the results section. documented in this encounter Results Urine Hold (09/01/2020 11:30 AM EDT) P athologist Signature Urine Hold Sample in [facility] lab. [facility] LABOR[facility] Specimen Anatomical Collection Method Collection Time Receive d Time (Source) Location / / Volume Laterality Urine Urine / Unknown 09/01/2020 11:30 09/02/19 21 5:36 AM EDT PM EDT Jennifer Wu CNM URINE ORDERABLES Performing Organization Address City/State/ZIP Code Phon e Number [address] GC Gene Amp ([facility]/APD/NLH) Urine (09/01/2020 11:30 AM EDT) P athologist Signature GC Gene Amp Negative Negative [facility] Comment: The only FDA approved specimen types for this assay are cervical, vaginal, urethral and urine. Non-FDA approved rika rces are eye, throat and rectal and have been internally validated. GC Source Urine [facility] Specimen Anatomical Collection Method Collection Time Receive d Time (Source) Location / / Volume Laterality Urine 09/01/2020 11:30 09/01/2020 9:19 AM EDT PM EDT Resulting Agency Comment Spec In Lab Namita Moran MD MICROBIOLOGY - GENERAL ORDER MICHEL Performing Organization Address City/[facility]/[place] [address] Chlamydia Gene Amp ([facility]CGP/APD/NLH) Urine (09/01/2020 11:30 AM EDT) Analysis Performed At Patho logist Time [facility] Chlamydia Gene Negative Negative [facility] LABORATORY Comment: The only FDA approved specimen types for this assay are cervical, vaginal, urethral and urine. Non-FDA approved rika rces are eye, throat and rectal and have been internally validated. Chlamydia Source Urine [facility] LABOR[facility]ORY Specimen Anatomical Collection Method Collection Time Receive d Time (Source) Location / / Volume Laterality Urine 09/01/2020 11:30 09/01/2020 9:19 AM EDT PM EDT Resulting Agency Comment Spec In Lab Namita Moran MD MICROBIOLOGY - GENERAL ORDER MICHEL Performing Organization Address City/[facility]/ZIP Code Phon e Number [address] Trichomonas Gene Amp ([facility]/CGP/APD/NLH) Urine (09/01/2020 11:30 AM EDT) Analysis Performed At Patho logist Time Signature Trich Gene Amp Negative Negative [facility] Comment: The only FDA approved specimen types for this assay are cervix and vaginal. Trich Source Urine [facility] Specimen Anatomical Collection Method Collection Time Receive d Time (Source) Location / / Volume Laterality Urine 09/01/2020 11:30 09/01/2020 9:19 AM EDT PM EDT Resulting Agency Comment Spec In Lab Namita Moran MD MICROBIOLOGY - GENERAL ORDER MICHEL Performing Organization Address City/State/[place] [address] documented in this encounter Visit Diagnoses Diagnosis Dysuria documented in this encounter Care Teams Pusher Runner Relationship Specialty Start Date End Date Autumn Krishnan APRN PCP - General 05/16/20 [facility] [place] [address] documented as of this encounter
--- OUTSIDE RECORDS SUMMARY | 2021-10-20 07:55 | XMS_ITS | Encounter Summary ---
:1985 Author Organization [facility] [place] [address] Care Team Providers Name Role Phone Genet Holland Primary Care Provider Encounter Details Date Type Department Care Team Description 11/24/2019 Hospital Encounter Laboratory [place] [address] Social History Tobacco Use Types Packs/Day [...] times daily. PowderIndications: Constipation, unspecified constipation type gabapentin (Neurontin) Take 100 mg by 0 09/07/2020 100 mg Capsule mouth 3 times daily. buprenorphine-naloxone Place 16 mg of 56 each 0 0 11/26/2019 (SUBOXONE) 8-2 mg Film opiate under the tongue daily. labetaloL (Normodyne) 100 take 1 tablet [...] Date/Time Associated Comments Diagnosis OPIOIDS CONFIRMATION Routine 11/25/2019 1:00 PM Opioid use dis order Results for this PANEL, URINE EDT procedure are i n the results section. documented in this encounter Results (ABNORMAL) Opioids Confirmation Panel, Urine (11/25/2019 1:00 PM EDT) P athologist Signature U Morphine Lvl <10.0 <=9.9 [facility] ng/mL [facility] Comment: The presence of morphine [...] ng/mL. U Oxymorphone Lvl <10.0 <=9.9 ng/mL [facility] Comment: Oxymorphone may arise from the use of ox ymorphone-containing drugs or by metabolism of oxycodone. Cutoff = 10 ng/ mL. U Hydromorphone Lvl <10.0 <=9.9 ng/mL [facility] Comment: Hydromorphone may arise from the use of hydromorphone-containing drugs or by metabolism of morphine. Cutoff = 10 ng/m L. U Dihydrocodeine Lvl <10.0 <=9.9 ng/mL [facility] Comment: Dihydrocodeine may arise from the use of dihydrocodeine-containing drugs or by metabolism of hydrocodone (minor metabol ite). Cutoff = 10 ng/mL. U Naloxone Lvl 228.7 (H) <=4.9 ng/mL [facility] [...] ng/mL. U Codeine Lvl <10.0 <=9.9 ng/mL [facility] Comment: Codeine is not [...] ng/mL. U Noroxycodone Lvl <10.0 <=9.9 ng/mL [facility] Comment: Noroxycodone is a metabolite of oxycodon e and its presence indicates oxycodone use. Cutoff = 10 ng/mL. U Oxycodone Lvl <5.0 <=4.9 ng/mL [facility] Comment: Oxycodone is not a recognized metabolite of other opioids and its presence indicates use of an oxycodone-containing drug. Oxycodone is metabolized to oxymorphone and noroxycodone. The presen ce of oxycodone in the absence of its metabolites (noroxycodone, oxymorphone) suggests placement of oxycodone directly into the urine specimen rather than ingestion. Cutoff = 5 ng/mL. U 6-SAUL Lvl <5.0 <=4.9 ng/mL [facility] Comment: 6-SAUL: The presence of 6-monoacetylmorph ine (6-SAUL) indicates heroin use. 6-SAUL is metabolized to morphine. Cutoff = 5 n g/mL. U Norhydrocodone Lvl <10.0 <=9.9 ng/mL [facility] Comment: Norhydrocodone is the major met abolite of hydrocodone. Cutoff = 10 ng/mL. U O-Desmethyltramadol Lvl <4.0 <=3.9 ng/mL [facility] Comment: O-desmethyltramadol is a metabolite of t ramadol and its presence indicates tramadol use. Cutoff = 4 ng/mL. U Hydrocodone Lvl <10.0 <=9.9 ng/mL [facility] Comment: Hydrocodone may arise from the use of hy drocodone-containing drugs or by metabolism of codeine. When generated by the metabolism of codeine, the concentration of hydrocodone is typicall y less than the concentration of codeine. Hydrocodone is metabolized to n orhydrocodone, dihydrocodeine, and hydromorphone (minor metabolite). Cutoff = 10 ng/mL. U Norfentanyl Lvl <1.0 <=0.9 ng/mL [facility] Comment: Norfentanyl is a metabolite of fentanyl and its presence indicates fentanyl use. Cutoff = 1 ng/mL. U Tramadol Lvl <4.0 <=3.9 ng/mL [facility] Comment: Tramadol is not recognized as a metaboli te of other opioids and its presence indicates the use of tramadol-containing drugs. The presence of tramadol in the absence of O-desmethyltramadol suggests placement of tramadol directly into the urine specimen rather than ingestion. Cu toff = 4 ng/mL. U Norbuprenorphine Lvl 373.0 (H) <=4.9 ng/mL [facility] Comment: Norbuprenorphine is a metabolite of bupr enorphine and its presence indicates use of buprenorphine or combination prod ucts such as Suboxone??. Cutoff = 5 ng/mL. U Fentanyl Lvl <1.0 <=0.9 ng/mL [facility] Comment: Fentanyl is not recognized as a metaboli te of other opioids and its presence indicates the use of fentanyl-containing drugs. The presence of fentanyl in the absence of norfentanyl suggests placemen t of fentanyl directly into the urine specimen rather than ingestion. Cutoff = 1 ng/mL. U Buprenorphine Lvl 61.9 (H) <=4.9 ng/mL [facility] Comment: Buprenorphine is not recognized as a met abolite of other opioids and its presence indicates the use of buprenorph ine or combination products such as Suboxone??. Patients taking a low dose o f buprenorphine may be compliant despite a buprenorphine result below the limit o f detection. Cutoff = 5 ng/mL. U EDDP+ Lvl <2.0 <=1.9 ng/mL [facility] Comment: EDDP+ is a metabolite of methadone. The presence of EDDP+ indicates use of methadone. Cutoff = 2 ng/mL. U Methadone Lvl <2.0 <=1.9 ng/mL [facility] Comment: Methadone is not recognized as a metabol ite of other opioids and its presence indicates the use of methadone-containin g drugs. The presence of methadone in the absence of EDDP+ suggests placement of methadone directly into the urine specimen rather than ingestion. Cutoff = 2 ng/mL. Opioid Panel Interp See Comment [facility] Comment: This test was performed using liquid chr omatography tandem mass spectrometry (LC-MS/MS). This test was developed and its performance characteristics determined by the Department of Patholog y and Laboratory Medicine at [facility]. It h as not been cleared or approved by the FDA. The laboratory is regulated under [place] as qualified to perform high-complexity testing. This test is us ed for clinical purposes and should not be used for investigational or research purposes. For any interpretation questions, please contact the laboratory at [phone]. Specimen Anatomical Collection Method Collection Time Receive d Time (Source) Location / / Volume Laterality Urine specimen 11/25/2019 1:00 PM 020 7:14 (specimen) EDT AM EDT Resulting Agency Comment Spec In Lab Namita Moran MD URINE ORDERABLES Performing Organization Address City/State/[place] [address] documented in this encounter Visit Diagnoses Diagnosis Opioid use disorder documented in this encounter Care Teams Wild Oyster Harvester Relationship Specialty Start Date End Date Genet oHlland PA PCP - General Family Medicine 02/06/19 05/15/[address] [place] [id number] documented as of this encounter
--- OUTSIDE RECORDS SUMMARY | 2021-10-20 07:55 | XMS_ITS | Encounter Summary ---
:1985 Author Organization [facility] [place] [address] Care Team Providers Name Role Phone Genet Holland Primary Care Provider Encounter Details Date Type Department Care Team Description 03/18/2020 Orders Only [facility] Cov id, Eligible [facility] [place] [address] Social History Tobacco Use Types Packs/Day Years [...] on filedocumented in this encounter Care Teams Environmental Field Office Manager Relationship Specialty Start Date End Date Genet Holland PA PCP - General Family Medicine 02/06/19 05/15/[address] [place] [phone] documented as of this encounter
--- OUTSIDE RECORDS SUMMARY | 2021-10-20 07:55 | XMS_ITS | Encounter Summary ---
:1985 Author Organization [facility] [place] [address] Care Team Providers Name Role Phone Genet Holland Primary Care Provider Encounter Details Date Type Department Care Team Description 10/20/2019 Telephone Obstetrics and [place]necology [place] [address] Social History Tobacco Use Types Packs/Day Years Used Date Current Every Day Smoker Cigarettes 0.25 Smokeless Tobacco: Never Used Alcohol Use Standard Drinks/Week Comments No 0 (1 standard drink = 0.6 oz pure alcoho l) Not during Sex Assigned at Date Recorded Female 04/13/2020 8:26 AM EST documented as of this encounter Miscellaneous Notes Telephone Encounter - Neelam Rodgers RN - 10/20/2019 5:04 PM EDT Results from uds faxed to Juanita Cisse at [phone] as requested by patient. ----- Message from Jennifer Wu CNM sent at 10/20/2019 1:32 PM EDT ----- Regarding: RE: test results Hi Angela- I can ask Cristiane ([email or web address]) to do this. Cristiane- could you please fax Shirlene's U/A results to: Juanita Cisse at , per her request to Sophia Powell and myself. Thank you so much! Jennifer ----- Message ----- From: Angela Funk LICSW Sent: 10/20/2019 10:54 AM EDT To: Jennifer Wu CNM Subject: test results Hi Jennifer, I'm working remotely from home today so do not have the ability to fax. Would you be able to fax theresults from Shirlene's UDS last week? L ----- Message ----- From: Azalea Hopkins Sent: 10/20/2019 10:39 AM EDT To: JYOTI Meadows I cannot print and send info from another clinic that I do not work for. ----- Message ----- From: Angela Funk LICSW Sent: 10/20/2019 9:45 AM EDT To: Azalea Hopkins Is that something that can be done from there? I am at home and don't have the ability to fax from here. ----- Message ----- From: Azalea Hopkins Sent: 10/20/2019 9:33 AM EDT To: JYOTI Meadows Shirlene called and asked for you to fax her results to diversion from 10/15 at [facility]. documented in this encounter Plan of Treatment Not on filedocumented as of this encounter Visit Diagnoses Not on filedocumented in this encounter Care Teams Mobile Security Architect Relationship Specialty Start Date End Date Genet Holland PA PCP - General Family Medicine 02/06/19 05/15/[address] [place] [phone] documented as of this encounter
--- OUTSIDE RECORDS SUMMARY | 2021-10-20 07:55 | XMS_ITS | Encounter Summary ---
:1985 Author Organization [place] [address] Care Team Providers Name Role Phone Brooklyn Krishnanica ISHAAN Primary Care Provider Reason for Visit Reason Comments Patient Education Medication Management Encounter Details Date Type Department Care Team Description 09/27/2020 Specialty Pharmacy Pharmacy at [facility] Rita Abraham Patient Education; [facility] [place] [address] Social History Tobacco Use Types Packs/Day Years Used Date Current Every Day Smoker Cigarettes 1 Smokeless Tobacco: Never Used Alcohol Use Standard Drinks/Week Comments No 0 (1 standard drink = 0.6 oz pure alcoho l) Not during Sex Assigned at Date Recorded Female 04/13/2020 8:26 AM EST documented as of this encounter Progress Notes Rita Abraham [facility] - 09/27/2020 10:50 AM EDT Specialty Pharmacy Consultation; Rita Abraham [facility] Comprehensive Medication Management (CMM) Shirlene Dumas Kovacs Diagnosis: Hepatitis C Therapy Start Date: 09/24/20 Ms. Shirlene Kovacs is a 35 y.o. (1985) female who was contacted in regard to specialty medication. Spoke with patient regarding MAVYRET. A review of the medication therapy was performed. All medication related questions and concerns were addressed. The specialty pharmacy staff will follow up with the patient 10 days prior to next refill. Is the patient willing to proceed with the Clinical Assessment? Yes Summary and Recommendations: Shirlene Kovacs was contacted for early follow-up on initiation of Hepatitis C treatment with Mavyret. She started taking it on 09/24/20 and she reports no missed doses thus far. She reports that so farit is going well overall and she has not experienced any side effects. She reports that she has headaches and fatigue but that she experienced these before starting Mavyret and they are no different orworse since starting. She takes the 3 tablets of Mavyret all at once with food at around 7pm every day right after dinner. I asked her if she was staying well hydrated and she replied no. I encouraged her to increase her water intake to help prevent side effects. She uses a phone alarm and a calendar to help her remember her dose and her mom also calls her and reminds her. She has an endoscopy on 10/22 and was wondering if that would interfere with her Mavyret treatment. We discussed that if she needs to fast for 24 hours then she wouldn't be able to take her Mavyret because it must be taken with food. I told her I would find out what the instructions are for prepping for the Endoscopy and get back to her. We will also reach out to her again around day 18 of treatment for a refill reminder, lab reminder, and follow-up. Clinic Follow-up needed: yes - SVR12 due 02/11/21. Preferred lab is [facility]. Need to confirm endoscopy on 10/22 will not interfere with Mavyret treatment. Barriers to Adherence: no Adherence Tools Used by Patient: yes - Alarm, mom reminds her, calendar Proper Hydration: No Side Effects: no Side Effect Mitigation Strategies Discussed: Yes Changes in other medications: yes - she confirmed that she's taking norethindrone control Interventions (if applicable): no n/a Any changes to the care plan? no Patient Satisfaction with Therapy: yes - no concerns Patient understands no changes to current drug regimen were made at the appointment and that [facility] is providing recommendations (summary located at top of note) for provider review and follow up. Rita Abraham RPH 09/27/20 10:54 AM Rita Abraham [facility] - 09/27/2020 10:50 AM EDT I confirmed with Dr. Pendleton that the Endoscopy will not interfere with Mavyret treatment. Directions for the endoscopy are no solid food 8 hours prior to procedure. I followed up with Shirlene to let her know. She will take her Mavyret with her dinner at 7pm as usual the night before the procedure and then she will take her normal dose at 7pm on the day of procedure which is scheduled for 1pm. She confirmed understanding. Sean Abraham, [place] 09/27/2020 11:46 AM documented in this encounter Plan of Treatment Not on filedocumented as of this encounter Goals Goal Patient Goal Associated Recent Patient-Stated? Author Type Problems Progress DH Home Medication Patient On track Yes Leigh , Compliance and Facing (10/12/2020 Rita Dumas Understanding Action Plan 9:07 AM EDT) [facility] Note: Formatting of this note might be d ifferent from the original. SVR12 through treatment with Mavyret x 8 weeks documented as of this encounter Visit Diagnoses Not on filedocumented in this encounter Care Teams Manufacturing Test Technician Relationship Specialty Start Date End Date Autumn Krishnan APRN PCP - General 05/16/20 [place] [address] documented as of this encounter
--- OUTSIDE RECORDS SUMMARY | 2021-10-20 07:55 | XMS_ITS | Encounter Summary ---
:1985 Author Organization [facility] [place] [address] Care Team Providers Name Role Phone Genet Holland Primary Care Provider Reason for Visit Reason Onset Date Comments Letter/Form 12/04/2019 Encounter Details Date Type Department Care Team Description 12/04/2019 Telephone Family Medicine at [address] Stefanie Merritt Letter/Form [address] [place] [address] Social History Tobacco Use Types Packs/Day Years Used Date Current Every Day Smoker Cigarettes 0.25 Smokeless Tobacco: Never Used Alcohol Use Standard Drinks/Week Comments No 0 (1 standard drink = 0.6 oz pure alcoho l) Not during Sex Assigned at Date Recorded Female 04/13/2020 8:26 AM EST documented as of this encounter Miscellaneous Notes Telephone Encounter - Stefanie Merritt - 12/04/2019 2:18 PM EDT .PC documented in this encounter Plan of Treatment Not on filedocumented as of this encounter Visit Diagnoses Not on filedocumented in this encounter Care Teams Transportation Dispatcher Relationship Specialty Start Date End Date Genet Holland PA PCP - General Family Medicine 02/06/19 05/15/[address] [place] [phone] documented as of this encounter
--- OUTSIDE RECORDS SUMMARY | 2021-10-20 07:56 | XMS_ITS | Encounter Summary ---
:1985 Author Organization [facility] [address] Care Team Providers Name Role Phone Genet Holland Primary Care Provider Encounter Details Date Type Department Care Team Description 08/06/2019 Telephone Obstetrics and Gynecology at Jennifer burnette CNM [facility] Celia gutierrez [facility]STETRICS & [place] [address] [place] [address] [phone] (Wo rk) Social History Tobacco Use Types Packs/Day Years Used Date Current Every Day Smoker Cigarettes 0.25 Smokeless Tobacco: Never Used Alcohol Use Standard Drinks/Week Comments No 0 (1 standard drink = 0.6 oz pure alcoho l) Not during Sex Assigned at Date Recorded Female 04/13/2020 8:26 AM EST documented as of this encounter Miscellaneous Notes Telephone Encounter - Jennifer Wu CNM - 08/06/2019 10:06 AM EDT TC with Shirlene to confirm she will come to [facility] Recruiting Administrator later this afternoon when she's able to get a ride. Is feeling much better. documented in this encounter Plan of Treatment Not on filedocumented as of this encounter Visit Diagnoses Not on filedocumented in this encounter Care Teams Cinder Pit Crane Operator Relationship Specialty Start Date End Date Genet Holland PA PCP - General Family Medicine 02/06/19 05/15/20 [address] [place] [address] documented as of this encounter
--- OUTSIDE RECORDS SUMMARY | 2021-10-20 07:56 | XMS_ITS | Encounter Summary ---
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 https://www.[facility]og.org/Patients/FAQs/Zmqnohfi-Vnlpi-Hcdvhydqm?IsMobileSet=false#ho w Nutrition: Your diet following the of your baby is as important as it was before the baby was born. Drinking a minimum of 6-8 glasses of water a day will help keep you hydrated. Continue taking your vitamins until you are no longer . Do not attempt to lose weight during thefirst six weeks. Sweating. Hormonal changes following delivery frequently cause night sweats which are normal over the next 6 weeks. Sleeping on towels and using a fan may make you more comfortable. Lochia: (Flow) Your flow should be no heavier than a normal period. It will be bright red and then transition to pink, brown, yellow, and finally colorless. This may last a few weeks. If your vaginal bleeding becomes bright red again, decrease your activity. We recommend pelvic rest until your bleeding and spotting stops and your episiotomy or vaginal tear has healed. This may take up to six weeks. Pelvic rest includes activities such as douching, use of tampons/menstrual cups or sexual intercourse. Bladder: For the next 2 weeks, empty your bladder every 2 hours while awake and at least every 4 hours at night. Perineum: For about a week continue to rinse yourself with warm water when you use the toilet. A sitz bath with Epsom salt taken 2 times a day and use of witch lui may help relieve soreness. Kegel exercise, done regularly throughout the day, will help tighten the perineal muscles and speed recovery.If you received any stitches, these will dissolve on their own and do not need to be removed. If you had a 3rd degree or 4th degree vaginal laceration continue taking stool softeners as recommended by the doctor. Breast Care for Formula feeding mothers: Wear a well-fitting bra to support your breasts. Ice packs to your breasts (10 minutes at a time) as well as alternating Tylenol and Ibuprofen may be used to relieve discomfort from engorgement. Avoid stimulating your breasts: Do not let warm water from the shower fall directly on your breast; do not express any colostrum; avoid holding your baby near your breasts until your milk begins to decrease and engorgement is relieved. Breast Care for mothers: Practice careful positioning and frequent feeding as demonstrated in the hospital. The printed information in your packet covers this in detail. For More Information: https://www.acog.org/Patients or refer to [employer]'s Your and Childbirth: Month to Month book which you may have received from the OB Clinic. Vaccination: If you received the Measles, Mumps, and Rubella (MMR) vaccine, varicella vaccine, or Hepatitis A vaccine during your hospitalization make sure to discuss this with your OB provider or your PCP at yournext visit. You may need a second dose of the vaccine to receive effective vaccine protection. Medications: o Please take your medication exactly as prescribed. Read all instructions that come with your medication. o Using narcotic pain medication (such as oxycodone, hydromorphone (Dilaudid), morphine, fentanyl, or tramadol) may cause addiction. While addiction is more common in people with a personal or family history of addiction, it can occur in anyone. o Taking more than the prescribed amount of medication or using with alcohol or other drugs can cause you to stop breathing resulting in coma, brain damage, or . o Opioids (oxycodone, hydromorphone/Dilaudid, morphine, fentanyl, tramadol) can slow reaction time, cause drowsiness, or cloud judgement. It is unsafe for you to drive or operate heavy machinery while taking this medication. o Opioids (oxycodone, hydromorphone/Dilaudid, morphine, fentanyl, tramadol) are at risk of being diverted by anyone with access to your home. Opioids should be stored in a safe and secure place, such as a locked cabinet or safe. o Unused opioids (oxycodone, hydromorphone/Dilaudid, morphine, fentanyl, tramadol) should be disposed of according to the label or patient information. If there are no specific instructions, medications may be returned to a take- back location or mixed with a small amount of water and an undesirable waste substance such as coffee grounds or cat litter. o If you were taking opioids like heroin, methadone, Percocet and buprenorphine during andyou stopped for any period of time, you are now more sensitive to this drug. That means that your old dose will be too strong, and you will be at risk for overdose if you take it. o As we all are aware, opioid use is a concern in [place] and [place]. We recommend that families with any member at risk for overdose have a prescription for naloxone to reverse an overdose. Your providers would be happy to give you one. Call your doctor or press washer for: ??? Seizure (call 911) ??? Headache which isn't relieved with Tylenol ??? Headache with visual changes ??? Pain in your chest ??? Shortness of breath ??? Pain in upper right abdomen ??? Fever more than 100.4 F ??? Breast with hot, hard, tender areas plus flu-like symptoms including muscle aches and feeling unwell all over ??? Increased abdominal pain, nausea, shaking chills ??? Increased pain in the area of stitches outside your vagina ??? Heavy bleeding that saturates a pad an hour ??? Clots larger than an egg ??? Red or swollen leg which is painful or warm to the touch ??? Feeling of bladder fullness or pain ??? Unable to urinate when feeling the urge ??? Pain or bleeding with urination ??? Urinary leakage without coughing or sneezing ??? Urinary urgency or increased frequency ??? depression occurs in a large percentage of women. It often occurs after two weeks andcan last weeks or months. This is different than ??? blues?? which can occur during the first few days after you deliver. https://www.acog.org/Patients/FAQs/-Depression We encourage you to contact your provider or a member of the nursing staff if you are feeling so overwhelmed that you are unable to care for yourself or your baby. Keep your follow up appointment. You may call the [facility] at any time for guidance or for answers to questions that come up prior to you follow up appointment. Your [facility] Provider can be reached during office hours at ??? Midwives ??? Obstetricians ??? Services AFTER OFFICE HOURS for the element setter or press washer litigation docket manager Provider electronic signature confirms that discharge instructions were reviewed with the patient. Acopy was printed and given to the patient. Patient InstructionsZoila Lopez MD - 10/05/2019 4:44 AM EDT Patient Instructions Follow-up: - two week and six week follow up with [facility] -TSH at 6 weeks -Infectious disease consultation for treatment of Hep C Activity: -- Nothing in vagina until bleeding stops Please call your OB provider for the following: -- Fever more than 100.5 degrees -- Heavy bleeding that saturates a pad an hour -- Increased abdominal pain, nausea , shaking chills -- Increased pain in the area of stitches outside your vagina. -- Hot, hard, tender areas on the breast and feeling generally unwell. -- Depression Contact Numbers: If you see an element setter call: [phone] 9 am - 5 pm, after 5 pm If you see a press washer call: [phone] all hours If you see a family practitioner call: [phone] all hours If you were transferred to our institution for delivery and cannot reach your local OB provider, call the element setter numbers. documented in this encounter Medications at Time [...] times daily. PowderIndications: Constipation, unspecified constipation type labetaloL (Normodyne) 100 take 1 tablet by 60 tablet 0 09/0709/07/2020 mg Tablet mouth twice a day buprenorphine-naloxone Place 16 mg of 56 each 0 0 10/29/2019 (SUBOXONE) 8-2 mg Film opiate under the tongue daily. FLUoxetine (PROzac) 20 mg Take 3 tablets by 90 tablet 2 01/23/2020 Tablet mouth daily. Plus, calcium Take 1 tablet by 90 tablet 3 020 09/15/2020 carb, 27 mg iron- 1 mg mouth daily. Tablet documented as of this encounter Progress Notes Carleen Porter RN - 10/06/2019 6:24 PM EDT Patient discharge instructions reviewed with patient. Patient showed understanding of discharge instructions and when to call MD. Patient's IV access discontinued. All patient questions answered. AVS given to patient. Patient discharged, and plans to board in room. Genet Pittman RN - 10/06/2019 12:12 PM EDT OFFICE OF CARE MANAGEMENT/chainstitch seat joiner Patient has accepted VNA referral. Only one VNA agency offers maternal/child services and provides services to this patient's town. VNA orders pended to this agency: [facility] in [place], [place] and [phone] Patient has also accepted WIC referral for her . WIC referral sent in. Genet Pittman RN Case Manager [facility] [phone] Pager [phone] DOCUMENTATION FOR VNA SERVICES (INCLUDING THOSE PATIENTS WITH MEDICARE COVERAGE REQUIRING HOME VNA SERVICES AND/OR HOSPICE SERVICES) PATIENT'S LOCATION: Shirlene Kovacs [address] [place] [address] Cell: Telephone Information: Compress Engineer's Name: self In discussion with the attending physician, it is certified that this patient is under their care and that they, or a Nurse Practitioner,Clinical Nurse specialist or Physician Radio Equipment Repairer who is working directly with them, had a face to face encounter that meets the physician face to face encounter requirements with this patient on 10/06/2019 The encounter with the patient was in whole, or in part, for the following medical condition, which is the primary reason for home health care services: s/p 10/04/19. In discussion with the provider, it is certified that, based on their findings, the following services are medically necessary for home health services. To provide the following care/treatments with the clinical findings supporting the need for servicesas follows: HOME CARE ORDERS: HOME HEALTH AGENCY: [facility] in [place], [place] and [phone] RN orders: 1. Assess recovery 2. Assess breast feeding 3. Assess care management, clinical status including risk for depression. 4. Provide care guidance, anticipatory guidance for maternal post period and assist with connecting to appropriate community resources. Start of care: Upon 's discharge Please note that any additional orders needed or changes will need to be obtained from this patient's PCP: PINKY Crum [address] [place] [id number] OR [facility] OB Team: [phone]. All A agencies which cover the area of patient's residence have been reviewed, either verbally or in writing, and patient/family have chosen the home health care agency noted. Referral to [facility] requested by Shirlene Kovacs. She has given verbal permission to electronically faxnecessary demographic information for her infant (including name, address, phone number). Upon receipt of the referral information, [facility] market survey representative will attempt to contact parents to set up an intake plan. Baby Girl Fermín [address] [place] [address] [address] [facility] [address] Mother's Name: Shirlene Kovacs Mother's Date of : 87 Infant's Legal Name: Ena Kovacs Infant's Date of : 10/04/19 Weight: 7 lb 1.6 oz (3220 g) Height: 50cm Anticipated Discharge Date: Mother: October 06 2019, : October 08 2019 Current [place] Status: Mother is enrolled and would like her infant to be enrolled as well Have Medicaid (Yes or No)?: yes The above information electronically routed to: [place] WIC: [facility], Fax #: [phone] Zoila Lopez MD - 10/06/2019 6:56 AM EDT Vaginal Delivery Note Patient ID: Ms. Shirlene Kovacs is a 34 y.o. PPD #2 after uncomplicated at 38w6d gestation. Shirlene presented for induction of labor due to elevated LFTs with full body pruritis in the setting of chronic Hepatitis C with most recent viral load >900k. Shirlene's was complicated byhypothyroidism, bipolar/PTSD/anxiety, a history of the aforementioned Hep C, ROLAND (on Suboxone), asthma, Hodgkins lymphoma (2003, sp radiation and doxorubicin), and a hospitalization for pneumonia in the third trimester of this . S: Pt examined in bed this morning. She is doing well. No acute events overnight, no new complaints.Pt tolerating regular diet w/o n/v, voiding spontaneously, moderate lochia, slightly more than a period. Ambulating without difficulty. Pain well controlled with ibuprofen only (Tylenol held due to LFTs), and a heating pad has been very helpful O: Last value Range last 24 hrs Temperature Temp: 36.7 ??C (98.1 ??F) Temp: [36.6 ??C (97.9 ??F)-36.7 ??C (98.1 ??F)] Heart Rate Heart Rate: 67 Heart Rate: [67-92] Blood Pressure BP: (!) 101/38 BP: (93-107)/(38-71) Respiratory Rate Resp: 20 Resp: [16-20] SpO2 SpO2: 98 % SpO2: [94 %-98 %] No intake or output data in the 24 hours ending 10/06/19 0656 Exam: Gen: NAD, resting in bed Abdomen: soft, NT/ND, no rebound or guarding, fundus firm at the umbilicus. Extremities: nontender, no edema. Labs: Recent Labs 10/05/19 0952 10/02/19 2145 WBC 25.3* 12.8* HGB 10.7* 12.8 HCT 31.5* 37.2 PLATELET 213 266 Lab Results Component Value Date NA 137 10/05/2019 K 4.2 10/05/2019 CL 104 10/05/2019 CO2 21 (L) 10/05/2019 BUN 13 10/05/2019 CREATININE 0.66 (L) 10/05/2019 GLUCOSE 94 10/05/2019 CALCIUM 8.5 10/05/2019 ESTGFR 116 10/05/2019 Lab Results Component Value Date ALT 46 (H) 10/05/2019 AST 67 (H) 10/05/2019 ALKPHOS 155 (H) 10/05/2019 BILITOT 0.7 10/05/2019 BILIDIR 0.2 09/30/2019 ALBUMIN 2.6 (L) 10/05/2019 PROT 4.9 (L) 10/05/2019 Assessment: Ms. Shirlene Kovacs is a 34 y.o. PPD #2 after uncomplicated at 38w6d gestation. Plan: ?? Pt meeting appropriate milestones. Continue routine care. ?? Hgb 10.7 s/p EBL 300mL, with tachycardia from yesterday morning now resolved. AM CBC pending. Pt asymptomatic for anemia. Continue to monitor for signs or symptoms of worsening anemia. ? Contraception: desires POPs at discharge ?? Anticipate discharge later today, will be rooming in while baby Ena undergoes NORAH scoring. Other Medical Problems ?? Hep C - Will refer to ID for discussion of Hep C treatment . Will also plan for 2 and 6w visits with [facility] ?? Hypothyroidism - return to pre- levothyroxine dosing (still 75mcg, didn't increase in ). Recheck TSH at 6w visit This patient was seen and discussed on rounds. Zoila Lopez MD, PGY3 Obstetrics and Gynecology 10/06/2019 Associated attestation - German Fernández MD - 10/06/2019 9:13 PM EDT Patient seen, chart reviewed, discussed with team and agree with resident note. OK for discharge. Will board here while baby is admitted. MD Gautam Renteria Sarah F, MSW - 10/05/2019 12:41 PM EDT DENTIST/OWNER checked in with team today about pt since DENTIST/OWNER did not see pt yesterday due to laboring. Rn reports pt is doing well and attending to baby well. Plan: This DENTIST/OWNER passed along information to weekday DENTIST/OWNER to check in on Office of Care Management Float/Weekend Purchasing Internship MANDI Arreguin Pager [phone] Office of Care Management Float/Weekend Purchasing Internship MANDI Arreguin Pager [phone] Zoila Lopez MD - 10/05/2019 7:01 AM EDT Vaginal Delivery Note Patient ID: Ms. Shirlene Kovacs is a 34 y.o. PPD #*1 after uncomplicated at 38w6d gestation. Shirlene presented for induction of labor due to elevated LFTs with full body pruritis in the setting of chronic Hepatitis C with most recent viral load >900k. Shirlene's was complicated by hypothyroidism, bipolar/PTSD/anxiety, a history of the aforementioned Hep C, ROLAND (on Suboxone), asthma, Hodgkins lymphoma (2003, sp radiation and doxorubicin), and a hospitalization for pneumonia in the third trimester of this . S: Pt examined at bedside this morning after running into her in the hallway and walking to her roomtogether. She is ambulating without difficulty and happy to have coffee in her hand now. No acute events overnight, no new complaints. Pt tolerating regular diet w/o n/v, voiding spontaneously, moderate lochia, slightly more than a period. Pain well controlled with ibuprofen only (Tylenol held due to LFTs). O: Last value Range last 24 hrs Temperature Temp: 36.6 ??C (97.9 ??F) Temp: [36.5 ??C (97.7 ??F)-37.3 ??C (99.1 ??F)] Heart Rate Heart Rate: 92 Heart Rate: [78-133] Blood Pressure BP: 93/71 BP: (93-122)/(45-95) Respiratory Rate Resp: 18 Resp: [16-18] SpO2 SpO2: 97 % SpO2: [94 %-97 %] Intake/Output Summary (Last 24 hours) at 10/05/2019 1402 Last data filed at 10/04/2019 2200 Gross per 24 hour Intake 364.45 ml Output 1250 ml Net -885.55 ml Exam: Gen: NAD, ambulating comfortably Cardiac: RRR, S1, S2, no rub/gallop/murmur. Pulmonary: CTAB, nl respiratory effort Abdomen: soft, NT/ND, no rebound or guarding, fundus firm at the umbilicus. Extremities: nontender, no edema. Labs: Recent Labs 10/05/19 0952 10/02/19 2145 WBC 25.3* 12.8* HGB 10.7* 12.8 HCT 31.5* 37.2 PLATELET 213 266 Lab Results Component Value Date NA 138 09/24/2019 K 4.1 09/24/2019 CL 105 09/24/2019 CO2 21 (L) 09/24/2019 BUN 9 09/24/2019 CREATININE 0.60 (L) 10/02/2019 GLUCOSE 81 09/24/2019 CALCIUM 8.6 09/24/2019 ESTGFR 120 10/02/2019 Lab Results Component Value Date ALT 63 (H) 10/02/2019 AST 81 (H) 10/02/2019 ALKPHOS 209 (H) 09/30/2019 BILITOT 0.6 09/30/2019 BILIDIR 0.2 09/30/2019 ALBUMIN 3.3 09/30/2019 PROT 6.2 09/30/2019 Assessment: Ms. Shirlene Kovacs is a 34 y.o. PPD #1 after uncomplicated at 38w6d gestation. Plan: ?? Pt meeting appropriate milestones. Continue routine care. ?? Hgb 10.7 s/p EBL 300mL, with mild tachycardia this morning. Pt asymptomatic for anemia. Continue to monitor for signs or symptoms of worsening anemia. ? Contraception: desires POPs at discharge ?? Anticipate discharge on PPD#2, will be rooming in while baby Ena undergoes NORAH scoring This patient was seen and discussed on rounds. Zoila Lopez MD, PGY3 Obstetrics and Gynecology 10/05/2019 Zoila Lopez MD - 10/04/2019 6:41 PM EDT Multidisciplinary Second Stage Labor Progress Note Patient ID: Shirlene Kovacs is a 34 y.o. at 38w6d gestation. A multidisciplinary meeting was held to discuss discuss maternal/ status. This included the charge nurse (Jose Manuel Melton), Labor nurse (Armin), Senior OB resident (John). The patient was found to be fully dilated at 1831. The vertex is currently at 2+ station. Maternal status: Tolerating labor well and ready to start pushing. status: The baseline FHR at the time of full dilation was 135. The baseline FHR is currently 135 with moderate variability, no accels, variable and late decels. Ctx 2.5-4m The heart rate tracing is category II and is overall reassuring. The maternal heart rate is 150, distinct from FHR on spO2 monitoring. Assessment/Plan: Start pushing. Plan to huddle again in one hour if still pushing. The assessment of and maternal status and plan of care was discussed with the patient and her family. Zoila Lopez MD, PGY3 Obstetrics and Gynecology 10/04/2019 Zoila Lopez MD - 10/04/2019 2:15 PM EDT Labor Progress Note Patient ID: Shirlene Kovacs is a 34 y.o. female at 38w6d (by 1st trimester ultrasound) who presented forIOL for elevated LFTs in the setting of chronic hepatitis C. Her has been complicated by: - Hx of Hodgkins Lymphoma s/p doxorubicin and irradiation in 2002, with reassuring EF of 65% - Hypothyroid treated with levothyroxine - Asthma, inhaler last used in August - Pneumonia in August during this treated with ceftriaxone and azithromycin - Polyhydramnios on U/S 08/27, since resolved with U/S 09/29 (CHRISTIE 17.95, MVP 5.45) - Bipolar Disorder, Anxiety, PTSD with history of suicide attempt - Hx of ROLAND, treated with Suboxone 8 mg BID - chronic Hepatitis C with elevated viral load in ([phone] on 09/24/2019) - Question of varicella non-immune status, yet also has recurrent shingles on the problem list (?) Subjective: Shirlene is exceptionally uncomfortable at this time and Anesthesia has been called to re-dose her epidural. We are having a difficult time monitoring her baby due to her inability to stay still. Objective: Temp: 36.5 ??C (97.7 ??F) 24 hr Temp: [36.5 ??C (97.7 ??F)-36.7 ??C (98.1 ??F)] Heart Rate: 88 24 hr Heart Rate: [76-110] BP: 108/63 24 hr BP: (81-122)/(38-83) Cervix Exam: /-1 NST Fetus A 10/04/2019 HR (Beats/Min) 125 HR Variability moderate (amplitude range 6 to 25 bpm) HR Accelerations absent HR Decelerations absent Contraction Frequency (Minutes) 2-3 Nonstress Test Interpretation - Overall Impression - Comments - Cat I GBS Lab Results Component Value Date GBSSCREEN Neg 09/16/2019 Assessment & Plan Shirlene Kovacs is a 34 y.o. female at 38w6d (by 1st trimester ultrasound) who presented forIOL for elevated LFTs in the setting of chronic hepatitis C. ?? Labor Assessment: Latent labor. ?? Category 1 tracing when FHRT available ?? Labor Plans: ?? PV miso x1 on 10/01 ?? Pitocin: started on 10/02 at 0700 and was turned off for a brief period of time overnight, but restarted at 0330 this morning. Currently at 12mU ?? AROM 16:34 on 10/02 clear fluid ?? IUPC at 1000. MVUs increasing with pitocin, at max of 22mU. Decreased to 10mU at this time until we are able to get patient more comfortable and begin increasing dose again ?? GBS Management:: None Required Additional Issues ?? Chronic hepatitis C with elevated viral load in : we will avoid performing FSE and operative delivery ?? PPH risk: medium (>24h on pitocin) Zoila Lopez MD, PGY3 Obstetrics and Gynecology 10/04/2019 Associated attestation - Pilo Martinez MD - 10/04/2019 4:11 PM EDT I have personally reviewed this patients heart tracing and progress in labor and agree with the documentation above. Pilo Martinez MD 10/04/19 4:11 PM Zoila Lopez MD - 10/04/2019 10:59 AM EDT Labor Progress Note Patient ID: Shirlene Kovacs is a 34 y.o. female at 38w6d (by 1st trimester ultrasound) who presented forIOL for elevated LFTs in the setting of chronic hepatitis C. Her has been complicated by: - Hx of Hodgkins Lymphoma s/p doxorubicin and irradiation in 2002, with reassuring EF of 65% - Hypothyroid treated with levothyroxine - Asthma, inhaler last used in August - Pneumonia in August during this treated with ceftriaxone and azithromycin - Polyhydramnios on U/S 08/27, since resolved with U/S 09/29 (CHRISTIE 17.95, MVP 5.45) - Bipolar Disorder, Anxiety, PTSD with history of suicide attempt - Hx of ROLAND, treated with Suboxone 8 mg BID - chronic Hepatitis C with elevated viral load in ([phone] on 09/24/2019) - Question of varicella non-immune status, yet also has recurrent shingles on the problem list (?) Subjective: Shirlene's first epidural was not working well, so was replaced mid-morning this morning. She is now comfortable and was able to get some sleep Objective: Temp: 36.6 ??C (97.9 ??F) 24 hr Temp: [36.5 ??C (97.7 ??F)-36.7 ??C (98.1 ??F)] Heart Rate: 83 24 hr Heart Rate: [76-106] BP: (!) 81/47 24 hr BP: (81-122)/(38-83) Cervix Exam: /-1 NST Fetus A 10/04/2019 HR (Beats/Min) 120 HR Variability moderate (amplitude range 6 to 25 bpm) HR Accelerations present;greater than/equal to 15 bpm;lasting at least 15 seconds HR Decelerations absent Contraction Frequency (Minutes) - Nonstress Test Interpretation - Overall Impression - Comments - [place]: Difficult to assess on toco I personally reviewed and interpreted this NST. GBS Lab Results Component Value Date GBSSCREEN Neg 09/16/2019 Assessment & Plan Shirlene Kovacs is a 34 y.o. female at 38w6d (by 1st trimester ultrasound) who presented forIOL for elevated LFTs in the setting of chronic hepatitis C. ?? Labor Assessment: Latent labor. ?? Category 1 tracing ?? Labor Plans: ?? PV miso x1 on 10/01 ?? Pitocin: started on 10/02 at 0700 and was turned off for a brief period of time overnight, but restarted at 0330 this morning. Currently at 12mU ?? AROM 16:34 on 10/02 clear fluid ?? IUPC at 1000. MVUs of 20, plan to increase pitocin ?? GBS Management:: None Required Additional Issues ?? Chronic hepatitis C with elevated viral load in : we will avoid performing FSE and operative delivery ?? PPH risk: medium (>24h on pitocin) Zoila Lopez MD, PGY3 Obstetrics and Gynecology 10/04/2019 Associated attestation - Pilo Martinez MD - 10/04/2019 2:31 PM EDT I have personally reviewed this patients heart tracing and progress in labor and agree with the documentation above. Pilo Martinez MD 10/04/19 2:31 PM Genet Florez MSW - 10/04/2019 9:29 AM EDT Given that pt went into labor this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 positioning Fyya-ou-vcpoz technique Nutritive vs non-nutritive sucking Importance of consistently breaking suction, if does not self-detach Breast massage and manual expression techniques Breast massage during , alternated with breast compression during pauses Alternative stimulation techniques/waking techniques/consoling techniques Principles of baby-led feedings/finish first breast first/attempt to BF on both sides at each feed (assess interest/satiety cues) Ventral/Recumbent with infants self-attachment Strategies to manage physiological engorgement Breastmilk pumping 4+ times per day R/T nipple shield use and whenever a supplement is needed (suggested try the #21 mm breast flanges) Reviewed use and care of the nipple shield Written contact information for [facility] Services prn Pamphlets Provided Feeding Log Your Guide To --Why is Important Going Home with Your [place] [facility] Services Card The Benefits of Tbkk-fn-Uvgs Contact and an Early Start to Positions and Tips for Successful ILCA Handouts: Milk Expression and Pumping Hand Expression : Learning the Dance of Latching On-going Concerns: Latch issues early on improved with nipple shield and SNS at the breast Maternal hx for Hep C In utero exposure to suboxone, Prozac, marijuana and nicotine ESC cares and monitor for NORAH Infant hx for PROM - at risk for infection Monitor infant growth and nutrition closely follow up 10/07/2019 45 minutes were spent with this family, providing assessment, assistance, education, and support. Mother voices understanding of education and recommendations. Tracie Worley RN, IBCLC [facility] Services Plan of Care - Gulshan Perea RN - 10/06/2019 5:40 AM EDT Problem: Patient Care Overview Goal: Plan of Care Review Outcome: Ongoing (Interventions Implemented as Appropriate) 10/06/19 0538 Coping/Psychosocial Plan Of Care Reviewed With patient;mother Plan of Care Review Progress progress toward functional goals as expected Pt hs been recovering well from . Caring for and bonding appropriately with daughter. Hasnot required any pain medication this shift. VS WDL. Bleeding light to scant. Pt independent. Plan of Care - Kalani Collins RN - 10/05/2019 4:02 PM EDT Problem: Patient Care Overview Goal: Plan of Care Review Outcome: Ongoing (Interventions Implemented as Appropriate) 10/05/19 1551 Coping/Psychosocial Plan Of Care Reviewed With patient;mother Plan of Care Review Progress progress toward functional goals as expected OUTCOME EVALUATION NOTE: OUTCOME SUMMARY: Shirlene is appropriately involved in care of her baby, and attentive to baby's needs. Baby is well, with addition of nipple shield/SNS with donor milk per Shirlene's request. Her nipples aresore, but intact. She is having some uterine cramping and tooth pain, controlled with ibuprofen. Lochia is appropriate, VS stable. period progressing as expected. PLAN MOVING FORWARD: Continue with medications as scheduled, perform steps of Eat, Sleep, Consol. Continue process of support. INDIVIDUALIZED FALL PREVENTION INTERVENTIONS: Patient-specific fall risk factors per assessment: [current deficits]: none Assistance [level of assistance required for transfers and ambulation]: none Supervision [direct monitoring required during toileting and ADLs]: Call samson within reach, pt ringsappropriately Surveillance [continuous indirect monitoring]: Intentional rounding and bedside report Patient-specific fall prevention interventions for sensory deficits provided, if applicable: N/A CPG GOAL OUTCOME EVALUATION: Goal: Individualization & Mutuality Outcome: Ongoing (Interventions Implemented as Appropriate) 10/05/191550 Mutuality/Individual Preferences What Anxieties, Fears or Concerns Do You Have About Your Health or Care? none What Questions Do You Have About Your Health or Care? none What Information Would Help Us Give You More Personalized Care? none Goal: Fall Prevention-Safe Patient Handling Outcome: Ongoing (Interventions Implemented as Appropriate) 10/05/1990110/05/19 155 Activity Activity Type up ad paige -- Activity Assistance Provided independent -- Assistive Device Utilized -- none Daily Care Interventions Self-Care Promotion -- independence encouraged Positioning Body Position -- independent Camacho Fall Risk History of Falling 0 -- Secondary Diagnosis 15 -- Ambulatory Aids 0 -- Intravenous Therapy/Heparin/Saline Lock 20 -- Gait/Transferring 0 -- Mental Status 0 -- Score 35 -- OTHER Camacho Fall Risk Med -- Restraint Interventions Safety Promotion/Fall Prevention nonskid shoes/slippers when out of bed -- Goal: Infection Control 10/05/19 0902 10/05/19 155 Safety Interventions Isolation Precautions -- standard precautions maintained Infection Prevention -- environmental surveillance performed;equipment surfaces disinfected;rest/sleep promoted;single patient room provided;personal protective equipment utilized;visitors restricted/screened Coping Strategies Supportive Measures active listening utilized;relaxation techniques promoted;self-care encouraged -- Goal: Discharge Needs Assessment Outcome: Ongoing (Interventions Implemented as Appropriate) 10/05/19 155 Discharge Needs Assessment Concerns To Be Addressed no discharge needs identified Readmission Within The Last 30 Days no previous admission in last 30 days Equipment Needed After Discharge none Current Health Anticipated Changes Related to Illness none Activity/Self Care Review of Systems Equipment Currently Used at Home none Living Environment Transportation Available car;family or friend will provide Problem: (Vaginal Delivery) (Adult) Goal: Signs and Symptoms of Listed Potential Problems Will be Absent, Minimized or Managed () Signs and symptoms of listed potential problems will be absent, minimized or managed by discharge/transition of care (reference (Vaginal Delivery) (Adult) CPG). Outcome: Ongoing (Interventions Implemented as Appropriate) 10/05/19 1551 (Vaginal Delivery) Problems Assessed ( Vaginal Delivery) all Problems Present ( Vaginal Delivery) none Plan of Care - Gulshan Guy RN - 10/04/2019 11:34 PM EDT Problem: Patient Care Overview Goal: Plan of Care Review Outcome: Ongoing (Interventions Implemented as Appropriate) 10/02/19185210/04/192107 Coping/Psychosocial Plan Of Care Reviewed With -- patient;mother Plan of Care Review Progress progress toward functional goals as expected -- OUTCOME EVALUATION NOTE: OUTCOME SUMMARY: VSS, bleeding wnl. Ambulating and voiding independently. Pain well controlled with PRN medications. BF initiated. Attentive to needs, bonding well with infant. PLAN MOVING FORWARD: Continue current plan of care INDIVIDUALIZED FALL PREVENTION INTERVENTIONS: Patient-specific fall risk factors per assessment: [current deficits]: As documented Assistance [level of assistance required for transfers and ambulation]: Independent Supervision [direct monitoring required during toileting and ADLs]: Independent Surveillance [continuous indirect monitoring]: Purposeful rounding, call samson in reach Patient-specific fall prevention interventions for sensory deficits provided, if applicable: N/A CPG GOAL OUTCOME EVALUATION: Goal: Individualization & Mutuality Outcome: Ongoing (Interventions Implemented as Appropriate) 10/02/191852 Mutuality/Individual Preferences What Anxieties, Fears or Concerns Do You Have About Your Health or Care? none What Questions Do You Have About Your Health or Care? none What Information Would Help Us Give You More Personalized Care? none Goal: Fall Prevention-Safe Patient Handling 10/03/19211510/04/19210710/04/19 2331 Activity Activity Type -- -- up ad paige Activity Assistance Provided -- -- independent Assistive Device Utilized -- -- none Daily Care Interventions Self-Care Promotion -- -- independence encouraged Camacho Fall Risk History of Falling -- 0 -- Secondary Diagnosis -- 15 -- Ambulatory Aids -- 0 -- Intravenous Therapy/Heparin/Saline Lock -- 20 -- Gait/Transferring -- 0 -- Score -- 35 -- OTHER Camacho Fall Risk Med -- -- Restraint Interventions Safety Promotion/Fall Prevention -- fall prevention program maintained;nonskid shoes/slippers when out of bed;safety round/check completed -- Positioning Body Position -- independent -- Goal: Infection Control Outcome: Ongoing (Interventions Implemented as Appropriate) 10/04/192107 Safety Interventions Isolation Precautions standard precautions maintained Infection Prevention environmental surveillance performed;equipment surfaces disinfected;personal protective equipment utilized;rest/sleep promoted;single patient room provided;visitors restricted/screened Coping Strategies Supportive Measures active listening utilized;decision-making supported;verbalization of feelings encouraged Goal: Discharge Needs Assessment Outcome: Ongoing (Interventions Implemented as Appropriate) 10/04/192330 Discharge Needs Assessment Concerns To Be Addressed no discharge needs identified Readmission Within The Last 30 Days no previous admission in last 30 days Equipment Needed After Discharge none Discharge Disposition still a patient Current Health Anticipated Changes Related to Illness none Activity/Self Care Review of Systems Equipment Currently Used at Home none Living Environment Transportation Available car;family or friend will provide Goal: Interdisciplinary Rounds/Family Conf Outcome: Ongoing (Interventions Implemented as Appropriate) 10/04/192330 Interdisciplinary Rounds/Family Conf Participants nursing;patient;family;physician Problem: (Vaginal Delivery) (Adult) Goal: Signs and Symptoms of Listed Potential Problems Will be Absent, Minimized or Managed () Signs and symptoms of listed potential problems will be absent, minimized or managed by discharge/transition of care (reference (Vaginal Delivery) (Adult) CPG). Outcome: Ongoing (Interventions Implemented as Appropriate) 10/04/192330 (Vaginal Delivery) Problems Assessed ( Vaginal Delivery) all Problems Present ( Vaginal Delivery) none L&D Delivery Note - Zoila Lopez MD - 10/04/2019 8:18 PM EDT Delivery Note Shirlene Kovacs is a 34 y.o. woman at 38w6d weeks gestational age, who presented for induction of labor due to elevated LFTs with full body pruritis in the setting of chronic Hepatitis C with most recent viral load >900k. Shirlene's was complicated by hypothyroidism, bipolar/PTSD/anxiety, a history of the aforementioned Hep C, ROLAND (on Suboxone), asthma, Hodgkins lymphoma (2003, sp radiation and doxorubicin), and a hospitalization for pneumonia in the third trimester of this . Her IOL was started with one dose of vaginal misoprostol, followed by pitocin (ultimately for >24h, with a max dose of 22mU), and augmented with AROM and IUPC placement for continued pitocin titration. She used an epidural for analgesia, though it took several attempts for this to be successful. She was found to be complete at 1831 with the presenting part at 2+ station. She pushed for 1 hour and spontaneously delivered at 1945. The 's head was delivered in a controlled fashion. There was no nuchal cord. The body was delivered without incident over an intact perineum. A viable female was placed on mom's chest and had APGARS of 8 and 9 at 1 and 5 minutes and had a weight of 3220g. The cord was clamped in 2 places and transected. Cord blood was taken. The placenta delivered spontaneously after 10 minutes and it was a 3- vessel cord. The fundus became firm with massage and pitocin. Inspection of the vagina and perineum revealed bilateral pavel-urethral lacerations which were repaired with interrupted 4-0 Vicryl sutures. The sulci were examined and found to be intact. No complications. Blood loss estimated at 300ccs. She was in stable condition after delivery. The remainedin stable condition at the bedside. Zoila Lopez MD, PGY3 Obstetrics and Gynecology 10/04/2019 Information for the patient's : Gregory Kovacs [[id number]] DELIVERY SUMMARY FOR Gregory Kovacs (please note there is a separate summary for each fetus) 10/04/2019 7:45 PM by Sex: female Gestational Age: 38w6d Labor Events Rupture date/time: 10/03/2019 1634 Rupture type: intact, artificial rupture of membranes Fluid color: clear Mother Delivery Surgical or additional est. blood loss (mL): 0 Combined est. blood loss (mL): 0 Delivery ([place]) Delivery Date: 10/04/19 Delivery Date: 7:45:00 PM Sex: Female Shoulder Dystocia Delivery Information Other Personnel: Provider Role Delivery Nurse Anesthesia No data filed Cord No data filed Assessment & APGARS No data filed Resuscitation No data filed Maternal Feeding and Skin to Skin No data filed Medications No data filed Measurements No data filed Placenta No data filed Labor Length No data filed Associated attestation - Ivory Aj DO - 10/05/2019 4:53 PM EDT I supervised the delivery described above. I was present and I participated during the entire delivery (does not to include opening and closing) and there were no overlapping cases. Ivory Aj DO 10/05/2019 Op Note - Froylan Watt - 10/04/2019 8:17 PM EDTSummary: Medical Student: Vaginal Delivery Note Vaginal Delivery Note Shirlene Kovacs is a 34 y.o. year old woman at 38w6d weeks gestational age, who was admittedon 10/01 for induction of labor for increasing LFTs in the setting of??presumed cholestasis and chronic??HCV. Labor was induced with misoprostol on 10/01 and pitocin was started on 10/02. Her labor coursewas complicated by pain requiring epidural re-dosing which resolved. She used an epidural for analgesia. She was found to be complete at 1831 with the presenting part at 2+ station. heart tracing wasCategory II during the second stage. She progressed normally through a 1 hour second stage. At 1945 hours she spontaneously delivered a viable female infant. The infant's head was delivered in a control led fashion. There was no nuchal cord. The body was delivered without incident. A viable was placed on patient's chest and with routine stimulation the was vigorous. After a 60 second delay, the cord was double clamped and transected. Cord blood was collected. Pitocin was started and, with gentle cord traction, the placenta delivered spontaneously after 10 minutes. The placenta was intact with a 3-vessel cord. Inspection of the vagina and perineum revealed a1st degree laceration which was repaired in layers with 4-0 vicryl suture. The sulci were examined and found to be intact. No complications. She was in stable condition after delivery. The remained in stable condition at the bedside. APGARS: 8 and 9 Weight: 3220 g Estimated blood loss: 300 mLs Froylan Watt, MS4 Associated attestation - Ivory Aj DO - 10/04/2019 11:35 PM EDT Attending Attestation: Present for entire uncomplicated and repair. Patient tolerated well. Ivory Aj DO 10/04/2019 Initial Assessments - Genet Pittman RN - 10/03/2019 11:45 AM EDT Office of Care Management Initial Assessment GENET PITTMAN RN reviewed record and discussed patient with Care Team. Source of Information: Patient's chart, patient is being induced and not available for interview Reason for Hospitalization: 34 y.o. at 38w4d gestation admitted for induction of labor for elevated LFTs in the setting of chronic Hepatitis C. Last COVID test date and time: 07/31/192013 Past Medical History: Diagnosis Date ??? Abnormal [...] (post-traumatic stress disorder) ??? Reflux ??? Smoking Hospitalizations Within the Past 30 Days: no Anticipated Length Of Stay (If known): Expected Length of Hospitalization: 3 days Current Decision-Making Capacity: Patient has decision making capacity Advance Care Planning: none on file Current Coping/Education/Information Needs: not able to assess, patient is being induced Current Functional Ability: Hospitalized patient being induced Functional Status Prior to Admission: Independent Home Environment: Address on file: [address] [place] [address] [place] [address] (M) [phone] (H) [phone] (Ext 1) Email: [email or web address] Social & Family Supports/Community Resources: Not able to assess. Consult in for covering BP spot worker to see patient after delivery of infant and prior to discharge. Behavioral Health History: See above Substance Use/Abuse: See above Other Pertinent/Service Specific Information: no Health/Prescription Coverage: Primary Insurance: [email or web address] [facility] Secondary Insurance: no Prescription Coverage: [employer] Preferred Pharmacy: [place], [place] Other: no Primary Care Provider: PINKY Crum [phone] Patient/Caregiver Goals of Treatment: To continue induction until delivery of . To discharge home with when medically stable. Potential Needs for Transition of Care: Rehab/SNF: no Home Health: tbd DME: breast pump ordered from [facility] Dialysis: no Community Resources: tbd Transportation: not assessed Other: no Anticipated Barriers to Discharge/Special Considerations: no Assessment: 34 y.o. at 38w4d gestation admitted for induction of labor for elevated LFTs in the setting of chronic Hepatitis C. Patient needs to be assessed by covering BP Purchasing Internship prior to discharge. Potential RNCM needs include VNA/breast pump. Initial chart overview identifies no apparent barriers to discharge at this time. Anticipate discharge on day two or three. Plan: Consult put in for covering weekend spot worker to assess patient after delivery of infant and prior to discharge. Patient to continue labor induction until delivery of infant. Patient to discharge home with when medically stable. Follow up with infant's PCP and [facility] OB Team. A member of the Care Management team will continue to monitor progress, follow for continuity of care and assist with transition of care planning. GENET PITTMAN RN Pager: [phone] documented in this encounter Plan of Treatment Scheduled Referrals Name Type Priority Associated Order Schedule Diagnoses Referral to Infectious Outpatient Referral Routine Chronic hep atitis C Ordered: Disease and without hepatic 10/06/2019 [facility] coma documented as of this encounter Procedures Procedure Name Priority Date/Time Associated Comments Diagnosis HEMOGRAM Timed 10/06/2019 8:30 Results for this AM EDT procedure are i n the results section. DIFFERENTIAL, AUTOMATED Timed 10/06/2019 8:30 R esults for this AM EDT procedure are i n the results section. HC CBC,PLT & AUTO DIFF Timed 10/06/2019 8:30 AM EDT COMPREHENSIVE METABOLIC Timed 10/06/2019 8:30 R esults for this PANEL (NON-FASTING) AM EDT procedur e are in the results section. HEMOGRAM Routine 10/05/2019 9:52 Results for this AM EDT procedure are i n the results section. DIFFERENTIAL, AUTOMATED Routine 10/05/2019 9:52 R esults for this AM EDT procedure are i n the results section. GREEN TUBE HOLD Routine 10/05/2019 9:52 Results f or this AM EDT procedure are i n the results section. HC CBC,PLT & AUTO DIFF Routine 10/05/2019 9:52 AM EDT COMPREHENSIVE METABOLIC Routine 10/05/2019 9:52 R esults for this PANEL (NON-FASTING) AM EDT procedur e are in the results section. SURGICAL PATHOLOGY Routine 10/04/2019 10:02 Resul ts for this REPORT PM EDT procedure are i n the results section. SPECIMEN TO PATHOLOGY Routine 10/04/2019 10:02 Re sults for this PM EDT procedure are i n the results section. SCAN, PERIPHERAL BLOOD Routine 10/02/2019 9:45 Re sults for this PM EDT procedure are i n the results section. HEMOGRAM Routine 10/02/2019 9:45 Results for this PM EDT procedure are i n the results section. DIFFERENTIAL, AUTOMATED Routine 10/02/2019 9:45 R esults for this PM EDT procedure are i n the results section. CREATININE Routine 10/02/2019 9:45 Results for this PM EDT procedure are i n the results section. HC HEPATITIS A, TOTAL Routine 10/02/2019 9:45 Res ults for this PM EDT procedure are i n the results section. HC CBC,PLT & AUTO DIFF Routine 10/02/2019 9:45 PM EDT ALANINE AMINOTRANSFERASE Routine 10/02/2019 9:45 Results for this PM EDT procedure are i n the results section. HC ASPARTATE Routine 10/02/2019 9:45 Results for this AMINOTRANSFERASE (AST) PM EDT proce dure are in the results section. HC PROTEIN, Routine 10/02/2019 8:36 Results for this QUANTITATIVE, URINE PM EDT procedur e are in the results section. RAPID DRUG SCREEN, URINE Routine 10/02/2019 8:30 Results for this (IMELDA REQUEST) PM EDT procedure are in the results section. RAPID DRUG SCREEN W/ Routine 10/02/2019 8:30 Resu lts for this CONFIRMATION, URINE PM EDT procedur e are in the results section. U Routine 10/02/2019 8:30 Results for this BUPRENORPHINE+METABOLITE PM EDT pro cedure are in S the results section. documented in this encounter Results (ABNORMAL) Differential, Automated (10/06/2019 8:30 AM EDT) [facility] Method Time Signature Neutrophils % 61.8 % [facility] Neutr Abs (ANC) 9.78 (H) 1.70 - [facility] 6.10 [facility] x10(3)/[facility] LAB[facility] Lymphocytes % 25.8 % [facility] Lymphocytes Abs 4.1 (H) 0.9 - 3.2 [facility] x10(3)/[facility] Monocytes % 9.7 % [facility] Monocyte Abs 1.5 (H) 0.3 - 0.9 [facility] x10(3)/[facility] LABOR[facility] Eosinophils % 1.2 % [facility] Eosinophils Abs 0.2 0.0 - 0.4 [facility] x10(3)/[facility] Basophils % 0.5 % [facility] Basophils Abs 0.1 0.0 - 0.1 [facility] x10(3)/[facility] Immature Gran % 1.00 % [facility] Comment: Immature granulocytes(IG's)percentage an d absolute count will include metamyelocytes, myelocytes, and promyelo cytes. Blood smears from CBCs yielding IG's will be scanned manually for concor dance. If this scan disagrees with the automated IG or if promyelocytes are not ed, a manual differential will be performed. Ayah Gran Abs 0.16 (H) 0.00 - 0.04 x10(3)/[facility] LABORATORY Specimen Anatomical Collection Method Collection Time Receive d Time (Source) Location / / Volume Laterality Blood specimen 10/06/2019 8:30 AM 020 8:43 (specimen) EDT AM EDT Resulting Agency Comment Spec In Lab Ivory A Jean Marie DO HEMATOLOGY ORDERABLES Performing Organization Address City/State/ZIP [place] [address] (ABNORMAL) Hemogram (10/06/2019 8:30 AM EDT) Analysis Performed At Patho logist Time Signature WBC 15.8 (H) 4.0 - 9.5 [facility] x10(3)/[facility] LABORATORY RBC 3.36 (L) 4.00 [facility] 5.21 [facility] x10(6)/[facility] LABORATORY Hemoglobin 11.0 (L) 11.7 - [facility] 15.5 gm/dL [facility] LABORATORY Hematocrit 32.7 (L) 35.7 - [facility] 45.8 % [facility] LABORATORY MCV 97.3 (H) 82.6 - [facility] 94.4 [facility] LABORATORY MCH 32.7 (H) 27.1 - [facility] 32.0 pg [facility] LABORATORY MCHC 33.6 31.7 - [facility] 35.0 gm/dL [facility] LABORATORY Platelets 257 145 - 357 [facility] x10(3)/[facility] LABORATORY RDWSD 46.3 (H) 37.0 - [facility]ATI 46.0 [facility] LABORATORY RDWCV 13.2 11.5 - [facility]I 14.1 % [facility] LABORATORY MPV 10.5 7.6 - 12.9 [facility] nRBC % Auto 0.0 % [facility] LABORATORY nRBC Abs Auto 0.000 0.000 - [facility] BHARATI 0.000 [facility] x10(3)/[facility] LABORATORY Specimen Anatomical Collection Method Collection Time Receive d Time (Source) Location / / Volume Laterality Blood specimen 10/06/2019 8:30 AM 020 8:43 (specimen) EDT AM EDT Resulting Agency Comment Spec In Lab Ivory A Jean Marie DO HEMATOLOGY ORDERABLES Performing Organization Address City/State/ZIP [place] [address] (ABNORMAL) Comprehensive metabolic panel (non-fasting) (10/06/2019 8:30 AM EDT) P athologist Signature Glucose Lvl 80 65 - 199 [facility] mg/dL [facility] LABORATORY Comment: Diabetes: >=200 mg/dL plus symp toms BUN 13 8 - 18 mg/dL [facility] LABORATORY Creatinine 0.55 (L) 0.70 - 1.20 mg/dL [facility] LABORATORY Sodium 139 135 - 145 mmol/L [facility] LABORATORY Potassium 4.0 3.5 - 5.0 mmol/L [facility] LABORATORY Comment: Please note: ??Patients with WBC >100,00 0 may have falsely elevated Potassium levels. ??For accurate Potassium quantif ication in these patients send serum separator tube (gold top) for subsequent determinations. ??Contact the Clinical Chemistry Laboratory if there are any qu estions. Chloride 105 98 - 107 mmol/L [facility] LABORATORY CO2 24 22 - 31 mmol/L [facility] LABORATORY Anion Gap 10 5 - 15 mmol/L [facility] LABORATORY Calcium 8.5 8.5 - 10.5 mg/dL [facility] LABORATORY Total Protein 5.4 (L) 6.1 - 8.0 gm/dL [facility] LABORATORY Albumin 2.8 (L) 3.2 - 5.2 gm/dL [facility] LABORATORY AST 78 (H) 0 - 30 unit/L [facility] LABORATORY ALT 59 (H) 0 - 30 unit/L [facility] LABORATORY Alk Phos 152 (H) 35 - 105 unit/L [facility] LABORATORY Total Bilirubin 0.3 0.2 - 1.3 mg/dL [facility] LABORATORY Estimated GFR 123 >=60 mL/min/1.73 m?? [facility] LABORATORY Comment: The eGFR was calculated using the CKD-EP I equation. As with all creatinine based estimates of kidney function, eGFR values calculated with the CKD-EPI equation are not accurate in patients wi th acute kidney failure, extremes of body mass or the acutely ill. http://Mopio/[facility]kf eGFR 143 >=60 mL/min/1.73 m?? [facility] LABORATORY Comment: The eGFR was calculated using the CKD-EP I equation. As with all creatinine based estimates of kidney function, eGFR values calculated with the CKD-EPI equation are not accurate in patients wi th acute kidney failure, extremes of body mass or the acutely ill. http://Mopio/[facility]SAnkf Specimen Anatomical Collection Method Collection Time Receive d Time (Source) Location / / Volume Laterality Blood specimen 10/06/2019 8:30 AM 020 8:43 (specimen) EDT AM EDT Resulting Agency Comment Spec In Lab Ivory Aj DO CHEMISTRY ORDERABLES Performing Organization Address City/State/[place] [address] (ABNORMAL) Comprehensive metabolic panel (non-fasting) (10/05/2019 9:52 AM EDT) athologist Signature Glucose Lvl 94 65 - 199 [facility] mg/dL [facility] LABORATORY Comment: Diabetes: >=200 mg/dL plus symp toms BUN 13 8 - 18 mg/dL [facility] LABORATORY Creatinine 0.66 (L) 0.70 - 1.20 mg/dL [facility] LABORATORY Sodium 137 135 - 145 mmol/L [facility] LABORATORY Potassium 4.2 3.5 - 5.0 mmol/L [facility] LABORATORY Comment: Please note: ??Patients with WBC >100,00 0 may have falsely elevated Potassium levels. ??For accurate Potassium quantif ication in these patients send serum separator tube (gold top) for subsequent determinations. ??Contact the Clinical Chemistry Laboratory if there are any qu estions. Chloride 104 98 - 107 mmol/L [facility] LABORATORY CO2 21 (L) 22 - 31 mmol/L [facility] LABORATORY Anion Gap 12 5 - 15 mmol/L [facility] LABORATORY Calcium 8.5 8.5 - 10.5 mg/dL [facility] LABORATORY Total Protein 4.9 (L) 6.1 - 8.0 gm/dL [facility] LABORATORY Albumin 2.6 (L) 3.2 - 5.2 gm/dL [facility] LABORATORY AST 67 (H) 0 - 30 unit/L [facility] LABORATORY ALT 46 (H) 0 - 30 unit/L [facility] LABORATORY Alk Phos 155 (H) 35 - 105 unit/L [facility] LABORATORY Total Bilirubin 0.7 0.2 - 1.3 mg/dL [facility] LABORATORY Estimated GFR 116 >=60 mL/min/1.73 m?? [facility] LABORATORY Comment: The eGFR was calculated using the CKD-EP I equation. As with all creatinine based estimates of kidney function, eGFR values calculated with the CKD-EPI equation are not accurate in patients wi th acute kidney failure, extremes of body mass or the acutely ill. http://Mopio/[facility]SAnkf eGFR 135 >=60 mL/min/1.73 m?? [facility] LABORATORY Comment: The eGFR was calculated using the CKD-EP I equation. As with all creatinine based estimates of kidney function, eGFR values calculated with the CKD-EPI equation are not accurate in patients wi th acute kidney failure, extremes of body mass or the acutely ill. http://Mopio/[facility]SAnkf Specimen Anatomical Collection Method Collection Time Receive d Time (Source) Location / / Volume Laterality Blood specimen Venous Draw / 10/05/2019 9:52 AM 2019 (specimen) Unknown EDT 10:21 AM EDT Resulting Agency Comment Spec In Lab Zoila Lopez MD CHEMISTRY ORDERABLES Performing Organization Address City/State/ZIP [place] [address] Green Tube HOLD (10/05/2019 9:52 AM EDT) athologist Signature Green Hold Sample in [facility]. [facility] LABORATORY Specimen Anatomical Collection Method Collection Time Receive d Time (Source) Location / / Volume Laterality Blood specimen Venous Draw / 10/05/2019 9:52 AM 2019 (specimen) Unknown EDT 10:12 AM EDT Zoila Lopez MD CHEMISTRY ORDERABLES Performing Organization Address City/State/ZIP [place] [address] (ABNORMAL) Differential, Automated (10/05/2019 9:52 AM EDT) [facility] gist Method Time Signature Neutrophils % 72.8 % [facility] LABORATORY Neutr Abs (ANC) 18.37 (H) 1.70 - [facility] 6.10 [facility] x10(3)/[facility] LABORATORY Lymphocytes % 15.2 % [facility] Lymphocytes Abs 3.8 (H) 0.9 - 3.2 [facility] x10(3)/[facility] LABORATORY Monocytes % 10.2 % [facility] LABORATORY Monocyte Abs 2.6 (H) 0.3 - 0.9 [facility] x10(3)/[facility] LABORATORY Eosinophils % 0.3 % [facility] LABORATORY Eosinophils Abs 0.1 0.0 - 0.4 [facility] x10(3)/[facility] LABORATORY Basophils % 0.4 % [facility] LABORATORY Basophils Abs 0.1 0.0 - 0.1 [facility] x10(3)/[facility] LABORATORY Immature Gran % 1.10 % [facility] LABORATORY Comment: Immature granulocytes(IG's)percentage an d absolute count will include metamyelocytes, myelocytes, and promyelo cytes. Blood smears from CBCs yielding IG's will be scanned manually for concor dance. If this scan disagrees with the automated IG or if promyelocytes are not ed, a manual differential will be performed. Ayah Gran Abs 0.27 (H) 0.00 - 0.04 x10(3)/[facility] LABORATORY Specimen Anatomical Collection Method Collection Time Receive d Time (Source) Location / / Volume Laterality Blood specimen 10/05/2019 9:52 AM 020 (specimen) EDT 10:10 AM EDT Resulting Agency Comment Spec In Lab Zoila Lopez MD HEMATOLOGY ORDERABLES Performing Organization Address City/State/ZIP [place] [address] (ABNORMAL) Hemogram (10/05/2019 9:52 AM EDT) Analysis Performed At Patho logist Time Signature WBC 25.3 (H) 4.0 - 9.5 [facility] x10(3)/[facility] LABORATORY RBC 3.27 (L) 4.00 - [facility] 5.21 [facility] x10(6)/[facility] LABORATORY Hemoglobin 10.7 (L) 11.7 - [facility] 15.5 gm/dL [facility] LABORATORY Hematocrit 31.5 (L) 35.7 - [facility] BH[facility]I 45.8 % [facility] LABORATORY MCV 96.3 (H) 82.6 - [facility] 94.4 [facility] LABORATORY MCH 32.7 (H) 27.1 - [facility] 32.0 pg [facility] LABORATORY MCHC 34.0 31.7 - [facility] 35.0 gm/dL [facility] LABORATORY Platelets 213 145 - 357 [facility] x10(3)/[facility] LABORATORY RDWSD 46.2 (H) 37.0 - [facility] 46.0 [facility] LABORATORY RDWCV 13.2 11.5 - [facility] 14.1 % [facility] LABORATORY MPV 10.6 7.6 - 12.9 [facility] LAB[facility]ORY nRBC % Auto 0.0 % [facility] LABORATORY nRBC Abs Auto 0.000 0.000 - [facility] [employer]acy [employer] 0.000 [facility] x10(3)/[facility] LABORATORY Specimen Anatomical Collection Method Collection Time Receive d Time (Source) Location / / Volume Laterality Blood specimen 10/05/2019 9:52 AM 020 (specimen) EDT 10:10 AM EDT Resulting Agency Comment Spec In Lab Zoila Lopez MD HEMATOLOGY ORDERABLES Performing Organization Address City/State/ZIP [place] [address] [facility] [address]ORY Drive Surgical Pathology Report (10/04/2019 10:02 PM EDT) Component Value Ref Test Analysis Performed At [facility] Range Method Time Signature Surgical [id number] ? Location: ; BP18; A [facility] Pathology PARNELL Report The signing pathologist has (i) examined the relevant preparation(s) for the [facility] specimen(s) and (ii) rendered or confirmed the diagnosis(es) . HOSPITAL LABORATORY . ?Surgic al Pathology DIAGNOSIS A - Term placenta, 649 grams. ?Weight greater than 90 th percentile for gestation (placentomegaly) at ? 38 weeks. ?Stage 2, grade 2 acute chorioamnionitis. ?Appropriate villous maturation with areas of congestio n with focal ?increased vascularity (mild chorangiosis). ?Three vessel umbilical cord with paracentral insertion and stage 2, ?grade 2 acute funisitis. Electronically signed by: ??Loraine NAPOLES, Pilo Bartholomew Verified: ??10/09/2019 ?Pathologist Performed at: ??-[facility] Dept. of Pathology, [place], [place] SPECIMEN(S) SUBMITTED A - placenta, placenta - for exam (1) CLINICAL INFORMATION Vaginal delivery SPECIMEN PROCESSING A - Labeled/Fixative: Placenta, fresh. Quantity/Size/Weight: Single, 24.4 cm x 19.8 cm x 2.8 cm, 64 9 g. Integrity: Intact. Shape: Discoid. Membranes: ? - Insertion: 100% marginal, ? - Color and Clarity: Avalos-pink and semitransparent. Cord: ? - Size: 60 cm length, 1.8 cm diameter. ? - Number of Vessels: Three. ? - Insertion site: Paracentral. Surface: ? - Color and Clarity: Purple and translucent. Maternal Surface: Intact and complete with significant calci fications. Parenchyma: Dark red, granular tissue. Sections/Processing: [employer] Operator sections in 5 cassettes as follows: ?A1: ??Membrane roll ?A2: ??Proximal and distal cord ?A3-A5: ??Full thickness parenchyma ??RT Specimen (Source) Anatomical Collection Method Collection Time Re ceived Time Location / / Volume Laterality 10/04/2019 10:02 PM EDT Zoila Lopez MD PATHOLOGY/CYTOLOGY ORDERABLE S Performing Organization Address City/[facility]/[place] [address] Specimen to Pathology (10/04/2019 10:02 PM EDT) Specimen Anatomical Collection Method Collection Time Receive d Time (Source) Location / / Volume Laterality AP Specimen 10/04/2019 10:02 10/04/2019 PM EDT 10:02 PM EDT Narrative [facility] LABORAT ORY - 10/04/2019 10:02 PM EDT Specimen requisition ordered. ??Separate Pathology report to follow Joan Mccarthy MD PATHOLOGY/CYTOLOGY ORDERABLE S Performing Organization Address City/[facility]/[place] [address] (ABNORMAL) Alanine Aminotransferase (10/02/2019 9:45 PM EDT) P athologist Signature ALT 63 (H) 0 - 30 [facility] unit/L [facility] LABORATORY Specimen Anatomical Collection Method Collection Time Receive d Time (Source) Location / / Volume Laterality Blood specimen Venous Draw / 10/02/2019 9:45 PM 2019 9:53 (specimen) Unknown EDT PM EDT Resulting Agency Comment Spec In Lab Nhi Giron MD CHEMISTRY ORDERABLES Performing Organization Address City/[facility]/[place] [address] (ABNORMAL) Creatinine (10/02/2019 9:45 PM EDT) Analysis Performed At Patho logist Time Signature Creatinine 0.60 (L) 0.70 - [facility] 1.20 mg/dL [facility] LABORATORY Estimated GFR 120 >=60 [facility] mL/min/1.7 [facility] 3 m?? HOSPITAL LABORATORY Comment: The eGFR was calculated using the CKD-EP I equation. As with all creatinine based estimates of kidney function, eGFR values calculated with the CKD-EPI equation are not accurate in patients wi th acute kidney failure, extremes of body mass or the acutely ill. http://Mopio/[facility]SAnkf eGFR 139 >=60 mL/min/1.73 m?? [facility] LABORATORY Comment: The eGFR was calculated using the CKD-EP I equation. As with all creatinine based estimates of kidney function, eGFR values calculated with the CKD-EPI equation are not accurate in patients wi th acute kidney failure, extremes of body mass or the acutely ill. http://Mopio/[facility]kf Specimen Anatomical Collection Method Collection Time Receive d Time (Source) Location / / Volume Laterality Blood specimen Venous Draw / 10/02/2019 9:45 PM 2019 9:53 (specimen) Unknown EDT PM EDT Resulting Agency Comment Spec In Lab Eddy Ponce MD CHEMISTRY ORDERABLES Performing Organization Address City/[facility]/[place] [address] Scan, Peripheral Blood (10/02/2019 9:45 PM EDT) Adiana Method Time Signature Plat Estimate Normal [facility]ORATORY RBC Morphology Abnormal [facility] Macrocytes 1-5 /HPF [facility] LABORATORY Specimen Anatomical Collection Method Collection Time Receive d Time (Source) Location / / Volume Laterality Blood specimen 10/02/2019 9:45 PM 020 9:45 (specimen) EDT PM EDT Resulting Agency Comment Spec In Lab Eddy Ponce MD HEMATOLOGY ORDERABLES Performing Organization Address City/[facility]/[place] [address] (ABNORMAL) Differential, Automated (10/02/2019 9:45 PM EDT) Adiana Method Time Signature Neutrophils % 57.1 % [facility] LABORATORY Neutr Abs (ANC) 7.27 (H) 1.70 - [facility] 6.10 [facility] x10(3)/[facility] L LABORATORY Lymphocytes % 26.3 % [facility] LABORATORY Lymphocytes Abs 3.4 (H) 0.9 - 3.2 [facility] x10(3)/[facility] LABORATORY Monocytes % 13.6 % [facility] LABORATORY Monocyte Abs 1.7 (H) 0.3 - 0.9 [facility] x10(3)/[facility] LABORATORY Eosinophils % 1.4 % [facility] LABORATORY Eosinophils Abs 0.2 0.0 - 0.4 [facility] x10(3)/[facility] LABORATORY Basophils % 0.6 % [facility] LABORATORY Basophils Abs 0.1 0.0 - 0.1 [facility] x10(3)/[facility] LABORATORY Immature Gran % 1.00 % [facility] LABORATORY Comment: Immature granulocytes(IG's)percentage an d absolute count will include metamyelocytes, myelocytes, and promyelo cytes. Blood smears from CBCs yielding IG's will be scanned manually for concor dance. If this scan disagrees with the automated IG or if promyelocytes are not ed, a manual differential will be performed. Ayah Gran Abs 0.13 (H) 0.00 - 0.04 x10(3)/[facility] LABORATORY Specimen Anatomical Collection Method Collection Time Receive d Time (Source) Location / / Volume Laterality Blood specimen 10/02/2019 9:45 PM 020 9:45 (specimen) EDT PM EDT Resulting Agency Comment Spec In Lab Eddy Ponce MD HEMATOLOGY ORDERABLES Performing Organization Address City/State/ZIP [place] [address] (ABNORMAL) Hemogram (10/02/2019 9:45 PM EDT) Analysis Performed At Patho logist Time Signature WBC 12.8 (H) 4.0 - 9.5 [facility] x10(3)/[facility] LABORATORY RBC 3.86 (L) 4.00 - [facility] 5.21 [facility] x10(6)/[facility] LABORATORY Hemoglobin 12.8 11.7 - [facility] 15.5 gm/dL [facility] LABORATORY Hematocrit 37.2 35.7 - [facility] 45.8 % [facility]ATORY MCV 96.4 (H) 82.6 - [facility] 94.4 [facility] LABORATORY MCH 33.2 (H) 27.1 - [facility] 32.0 pg [facility] LABORATORY MCHC 34.4 31.7 - [facility] 35.0 gm/dL [facility] LABORATORY Platelets 266 145 - 357 [facility] x10(3)/[facility] LABORATORY RDWSD 45.1 37.0 - [facility] 46.0 [facility] LABORATORY RDWCV 12.9 11.5 - [facility] 14.1 % [facility] LABORATORY MPV 10.4 7.6 - 12.9 [facility] LABORATORY nRBC % Auto 0.0 % [facility] LABORATORY nRBC Abs Auto 0.000 0.000 - [facility] 0.000 [facility] x10(3)/[facility] LABORATORY Specimen Anatomical Collection Method Collection Time Receive d Time (Source) Location / / Volume Laterality Blood specimen 10/02/2019 9:45 PM 020 9:45 (specimen) EDT PM EDT Resulting Agency Comment Spec In Lab Eddy Ponce MD HEMATOLOGY ORDERABLES Performing Organization Address City/[facility]/[place] [address] (ABNORMAL) Hepatitis A Antibody, Total (10/02/2019 9:45 PM EDT) [facility] Method Time Signature Hepatitis A Indeterminate Negative [facility] Ab Total (A) [facility] LABORATORY Specimen Anatomical Collection Method Collection Time Receive d Time (Source) Location / / Volume Laterality Blood specimen 10/02/2019 9:45 PM 020 9:45 (specimen) EDT PM EDT Resulting Agency Comment Spec In Lab Joan Mccarthy MD IMMUNOLOGY ORDERABLES Performing Organization Address City/State/[place] [address] (ABNORMAL) Aspartate Aminotransferase (10/02/2019 9:45 PM EDT) athologist Signature AST 81 (H) 0 - 30 [facility] unit/L [facility] LABORATORY Specimen Anatomical Collection Method Collection Time Receive d Time (Source) Location / / Volume Laterality Blood specimen 10/02/2019 9:45 PM 020 9:45 (specimen) EDT PM EDT Resulting Agency Comment Spec In Lab Joan Mccarthy MD CHEMISTRY ORDERABLES Performing Organization Address City/State/ZIP Code Phon e Number [address] Protein/Creatinine Ratio, urine (10/02/2019 8:36 PM EDT) athologist [facility] U Creatinine 94 mg/dL [facility] LABORATORY U Protein Ran 9 0 - 12 [facility] mg/dL [facility] LABORATORY Prot/Cre Ratio <0.1 ratio [facility] LABORATORY Specimen Anatomical Collection Method Collection Time Receive d Time (Source) Location / / Volume Laterality Urine specimen 10/02/2019 8:36 PM 020 9:06 (specimen) EDT PM EDT Resulting Agency Comment Spec In Lab Joan Mccarthy MD URINE ORDERABLES Performing Organization Address City/[facility]/ZIP [facility] [place] [address] U Buprenorphine+Metabolites (10/02/2019 8:30 PM EDT) athologist Signature U Buprenorphine 125.5 Cutoff: [facility] 5.[facility] ng/mL [facility]ORY Comment: Test Performed by: [facility] [address] [address] 90 Automatic Presser: Magdaleno Henriquez M.D. Ph. D.; CLIA# [id number] U Norbuprenorphine 383.4 Cutoff: 2.5 ng/mL MAR Y [facility] LABORATORY Comment: ADDITIONAL INFORMATIO N Testing performed by Liquid Chromatograp hy-Tandem Mass Spectrometry (LC-MS/MS). This test was developed and its performa nce characteristics determined by [facility] in a manner co nsistent with CLIA requirements. This test has not been ruma ared or approved by the U.S. Food and Drug Administration. Test Performed by: [facility] [address] [place], [place] [address] Automatic Presser: Magdaleno Henriquez M.D. Ph. D.; CLIA# [id number] Specimen Anatomical Collection Method Collection Time Receive d Time (Source) Location / / Volume Laterality Urine specimen 10/02/2019 8:30 PM 020 9:33 (specimen) EDT AM EDT Resulting Agency Comment Spec In Lab Eddy Ponce MD CHEMISTRY ORDERABLES Performing Organization Address City/State/ZIP [place] [address] (ABNORMAL) Rapid Drug Screen w/ Confirmation, Urine (10/02/2019 8:30 PM EDT) [facility] Method Time Signature U Barbiturates None None [facility] Screen Detected Detected [facility] LABORATORY Comment: The barbiturate screen detects [...] U Benzodiazepines Screen None Detected None Detected [facility] LABORATORY Comment: The benzodiazepines screen [...] U Cocaine Screen None Detected None Detected [facility] Comment: The cocaine metabolites screen detects b enzoylecgonine (Cocaine Metabolite) at concentrations >150 ng/mL. A ? Presumptive Positive? result indicates that the screening result was positive but has not yet been confirmed by a highly-specific method. As with any screen, occasional false positive re sults from cross-reacting substances may occur. Not for Medico-Legal Purposes. U Methadone Metabolites None Detected None Detected [facility] Comment: The methadone metabolite screen detects EDDP (major methadone metabolite) at concentrations >100 ng/mL. A ? Presumptive Positive? result indicates that the screening result was positive but has not yet been confirmed by a highly-specific method. As with any screen, occasional false positive re sults from cross-reacting substances may occur. Not for Medico-Legal Purposes. U Opiate Screen None Detected None Detected [facility] Comment: The opiates screen detects opiates at co ncentrations >300 ng/mL. Please note that oxycodone, oxymorphone, fentanyl, tramadol, and other synthetic opioids are not detected by [facility] opiate screen. A ? Presumptive Positive? result indicates that the screening result was positive but has not yet been confirmed by a highly-specific method. As with any screen, occasional false positive re sults from cross-reacting substances may occur. Not for Medico-Legal Purposes. U Cannabinoid Screen None Detected None Detected P[facility]a [facility] Comment: The marijuana metabolites screen detects the THC metabolite ([id number]-[id number] 9-THC) at concen trations >20 ng/mL. A ? Presumptive Positive? result indicates that the screening result was positive but has not yet been confirmed by a highly-specific method. As with any screen, occasional false positive re sults from cross-reacting substances may occur. Not for Medico-Legal Purposes. U Oxycodone Screen None Detected None Detected [facility] Comment: The oxycodone screen detects oxycodone a nd oxymorphone at concentrations >100 ng/mL. A ? Presumptive Positive? result indicates that the screening result was positive but has not yet been confirmed by a highly-specific method. As with any screen, occasional false positive re sults from cross-reacting substances may occur. Not for Medico-Legal Purposes. U Buprenorphine Screen Presumptive Pos (A) None Detected [facility] Comment: The buprenorphine screen detects bupreno rphine at concentrations >5 ng/mL. A ? Presumptive Positive? result indicates that the screening result was positive but has not yet been confirmed by a highly-specific method. As with any screen, occasional false positive re sults from cross-reacting substances may occur. Not for Medico-Legal Purposes. U Fentanyl Screen None Detected None Detected Pippa [facility] Comment: The fentanyl screen detects fentanyl at concentrations >2 ng/mL. A ? Presumptive Positive? result indicates that the screening result was positive but has not yet been confirmed by a highly-specific method. As with any screen, occasional false positive re sults from cross-reacting substances may occur. Not for Medico-Legal Purposes. U Tricyclics Screen None Detected None Detected KELLI [facility] Comment: The tricyclics screen detects tricyclic [...] U Ethanol Screen None Detected None Detected [facility] Comment: This urine ethanol assay detect s ethanol at concentrations >/= 100 mg/L. U Amphetamines Screen None Detected None Detected [facility] Comment: The amphetamine screen [...] Screen None Detected None Detected Pipp[facility] Comment: No adulteration or dilution of this urin e sample was detected. All urine samples submitted for urine drugs of abu se analysis are tested for creatinine concentration, pH, and for the presence of oxidants, nitrites, and chromate. Specimen Anatomical Collection Method Collection Time Receive d Time (Source) Location / / Volume Laterality Urine specimen 10/02/2019 8:30 PM 020 8:42 (specimen) EDT PM EDT Resulting Agency Comment Spec In Lab Eddy Ponce MD CHEMISTRY ORDERABLES Performing Organization Address [facility]/ZIP Code Phon e Number [place] [phone] Rapid Drug Screen, Urine (IMELDA Request) (10/02/2019 8:30 PM EDT) P athologist Signature IMELDA Conf Yes [facility] Comment: Collection date/time has been modified t o: 20:30:00. ??Previous collection date/time: 20:04:00 . Corrected from Yes [NA] on 10/02/19 20:4 3:19 EDT by Jailene Ocampo IMELDA Requested See Comment [facility] Comment: Refer to Rapid Drug Screen w/ Confirmati on, Urine for results. Collection date/time has been modified to: 0 20:30:00. ??Previous collection date/time: 20:04:00. 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 Chronic hepatitis C without hepatic coma Smoking Tobacco use disorder Encounter for planned induction of labor documented in this encounter Admitting Diagnoses Diagnosis Encounter for planned induction of labor documented in this encounter Administered Medications Inactive Administered Medications - up to 3 most recent administrations Medication Order MAR Action Action Date Dose Rate Site acetaminophen (Tylenol) tablet 650 Given 10/04/2019 8:32 PM EDT 650 mg mg 650 mg, Oral, EVERY 6 HOURS PRN, Starting on Sun10/03/19 at 1140, Until 10/04/19 at 2158, Pain, Maximum dose of acetaminophen is 4000 mg from all sources in 24 hours. When ordered for pain, acetaminophen should be given even when other ordered pain medications are indicated. , Routine Given 10/04/2019 7:01 AM EDT 650 mg Given 10/03/2019 11:54 AM EDT 650 mg buprenorphine-naloxone (Suboxone) 8-2 mg Given 10/06/2019 8:21 A M EDT 1 tablet disintegrating tablet 1 tablet 1 tablet (8 mg of opiate), Sublingual, 2 TIMES DAILY, First dose on Jada 10/02/19 at 2100, Until Discontinued Given 10/05/2019 8:49 PM EDT 1 tablet Given 10/05/2019 9:03 AM EDT 1 tablet diphenhydrAMINE (Benadryl) capsule 25 mg Given 10/03/2019 3:09 AM EDT 25 mg 25 mg, Oral, ONCE, 1 dose, On Sun10/03/19 at 0345, Routine docusate sodium (Colace) capsule 100 mg Given 10/06/2019 8:21 AM EDT 100 mg 100 mg, Oral, 2 TIMES DAILY, First dose on 10/04/19 at 2300, Until Discontinued, Routine Given 10/05/2019 8:47 PM EDT 100 mg Given 10/05/2019 9:03 AM EDT 100 mg fentaNYL 2 mcg/mL with BUpivacaine 0.125 % (1.25 mg/mL) (1/8%) in NS(PF) 2 mcg/mL- 0.125 % neuraxial 1 dose, Starting on Sun10/03/19 at 1549, Until Sun10/03/19 at 1750, Merissa Funez: cabinet override fentaNYL 2 mcg/mL, Rate/Dose Change 10/04/2019 2:59 AM EDT 10 mL/hr 10 mL/hr BUpivacaine (MARCAINE) 0.125% (1.25 mg/mL)(1/8%) in sodium chloride 0.9% 250 mL epidural 10 mL/hr, Epidural, CONTINUOUS + PCEA, Starting on Sun10/03/19 at 1700, Until 10/04/19 at 2158, Maximum rate for continuous infusion 14 mL per hour Maximum total epidural rate (continuous and PCEA bolus) is 25 mL per hour, Routine New Bag 10/03/2019 5:50 PM EDT 8 mL/hr 8 mL/hr FLUoxetine (PROzac) capsule 60 mg Given 10/03/2019 7:05 AM EDT 60 mg 60 mg, Oral, ONCE, 1 dose, On Sun10/03/19 at 0700, Routine glycerin-witch Lui (TUCKS) 12.5-50 % p ads 1 each 1 each, Topical (Top), 4 TIMES DAILY PRN , Irritation, perineal pain, Starting on 10/04/19 at 2159, Until 10/06/19 at 2031, Applic ation Site: vulvar ibuprofen (Advil;Motrin) tablet 600 mg Given 10/06/2019 8:53 AM EDT 600 mg 600 mg, Oral, EVERY 6 HOURS PRN, Starting on 10/04/19 at 2159, Until 10/06/19 at 2031, Pain, - If ordered with other PRN pain medications give Ibuprofen first, then acetaminophen, then additional agents according to the pain scale., Routine Given 10/05/2019 1:02 PM EDT 600 mg Given 10/05/2019 5:33 AM EDT 600 mg labetaloL (Normodyne) tablet 100 mg Given 10/06/2019 8:54 AM EDT 100 mg 100 mg, Oral, 2 TIMES DAILY, First dose (after last modification) on Jada 10/02/19 at 2345, Until Discontinued, Routine Given 10/05/2019 8:47 PM EDT 100 mg Given 10/05/2019 9:02 AM EDT 100 mg lactated Ringers 500 mL IV Rate/Dose Change 10/04/2019 7:15 AM EDT 500 mL/hr bolus at 500 mL/hr, Intravenous, ONCE PRN, 1 dose, Starting on Jada 10/02/19 at 1931, Until 10/04/19 at 2157, Prior to epidural placement or concerning heart rate pattern or maternal condition. lactated ringers infusion New Bag 10/04/2019 5:31 PM EDT 100 mL/hr 100 mL/hr 100 mL/hr, Intravenous, CONTINUOUS, Starting on Jada 10/02/19 at 2030, Until 10/04/19 at 2158, Maximum 125 mL in one hour. New Bag 10/04/2019 8:03 AM EDT 100 mL/hr 100 mL/hr New Bag 10/03/2019 6:55 AM EDT 100 mL/hr 100 mL/hr levothyroxine (Synthroid) tablet 75 mcg Given 10/06/2019 8:20 AM EDT 75 mcg 75 mcg, Oral, EVERY MORNING, First dose on Sun10/03/19 at 0600, Until Discontinued, Routine Given 10/05/2019 5:33 AM EDT 75 mcg Given 10/04/2019 7:01 AM EDT 75 mcg lidocaine (PF) (XYLOCAINE) 10 mg/mL (1 % ) injection 300 mg 300 mg, Subcutaneous, ONCE PRN, 1 dose, Starting on Jada 10/02/19 at 1931, Until Sun10/06/19 at 2031, Repair of laceration following delive ry., Routine lidocaine (XYLOCAINE) 2 % jelly 1 Bottle 1 Bottle, Topical (Top), ONCE PRN, Pain, Repair of laceration following delivery and/or prior to urinary aung ter placement., Starting on Jada 10/02/19 at 1931, 1 dose, Until Sun10/06/19 at 2031 magnesium hydroxide (Milk of Magnesia) ( 240 mg/mL) oral liquid 10 mL 10 mL, Oral, NIGHTLY PRN, Starting on 10/04/19 at 2 200, Until Sun10/06/19 at 2031, Constipation, - If no bowel movement by morning of post day #1. Administer if needed per patient's routi ne or if no bowel movement within 24 hours to achieve: 1) One bowel movement at least every 24 ho urs, AND 2) Without straining., Routine miSOPROStol (Cytotec) tablet 25 mcg Given 10/02/2019 9:54 PM EDT 25 mcg 25 mcg, Vaginal, EVERY 4 HOURS PRN, 6 doses, Starting on Jada 10/02/19 at 1935, Until 10/04/19 at 215, until active labor, Administer until active labor. Maximum doses = 6, Routine naloxone (NARCAN) injection 0.2 mg 0.2 mg, Intravenous, EVERY 1 MIN PRN, St arting on Sun10/03/19 at 1604, Until Sun10/06/19 at 2031, Opioid Reversal, If res piratory rate less than 8 OR the patient is unable to arouse OR SpO2 is declining, G lars for respiratory rate of less than or equal to 8 and patient is heavily sedated or unarousab le. May repeat every 60 seconds to increase respiratory rate. DO NOT exceed 2 mg total dose. Per Epidural order., Routine oxytocin (PITOCIN) 30 Rate/Dose 10/04/2019 4:30 14 tripp-units/min 1 4 mL/hr units in sodium chloride Change PM EDT 0.9% 500 mL infusion 1-30 tripp-units/min (1-30 mL/hr), Intravenous, CONTINUOUS, Starting on Sun10/03/19 at 0645, Until 10/04/19 at 2158, Piggyback into Lactated Ringers; Start at 2 milliunits/minute and increase by 2 milliunits/minutes every 30 minutes to achieve contractions that are every 2-3 minutes, lasting 60-90 seconds with 1 minute resting tone between contractions palpating strong. Notify OB Provider when oxytocin dose needs to exceed 20 milliunits/minute. Oxytocin may not be initiated until: - 1 hour after Cervidil is removed - 4 hours after last minute misoprostol dose is given, Routine Rate/Dose Change 10/04/2019 4:00 PM EDT 12 tripp-units/min 12 mL/hr Rate/Dose Change 10/04/2019 2:14 PM EDT 10 tripp-units/min 10 mL/hr simethicone (Mylicon) chewable tablet 80 mg 80 mg, Oral, 4 TIMES DAILY PRN, Starting on 10/04/19 at 2200, Until 10/06/19 at 2031, Cramping, gas pain, Routine sodium chloride 0.9 % (flush) flush 5 mL Given 10/04/2019 9:46 AM EDT 5 mLs 5 mL, Intravenous, 2 TIMES DAILY, First dose on Jada 10/02/19 at 2100, Until Discontinued, Routine Given 10/03/2019 9:00 PM EDT 5 mLs Given 10/03/2019 11:56 AM EDT 5 mLs documented in this encounter Active and Recently Administered Medications Times are shown in EDT. Scheduled Medication Order 10/04/2019 10/05/2019 10/06/2019 buprenorphine-naloxone (Suboxone) 8-2 mg disintegratin g tablet 1 tablet 07 (Given - Provider: Deya Lujan, CHRISTEN)09 (Hold - Provider: Deya Lujan RN - Reason: See comment - Comment: see previous administration)2031 (Given - Provider: Gulshan Guy, CHRISTEN) 09 (Given - Provider: Kalani Collins, CHRISTEN)2048 (Given - Provider: Gulshan Perea RN) 08 (Given - Provider: Carleen Porter RN) 1 tablet (8 mg of opiate), Sublingual, 2 TIMES DAILY, First dose on Jada 10/02/19 at 2100, Until Discontinued docusate sodium (Colace) capsule 100 mg 2300 (Due) 902 (Given - Provider: Kalani Collins RN)2046 (Given - Provider: Gulshan Perea, CHRISTEN) 08 (Given - Provider: Carleen Porter, RN) 100 mg, Oral, 2 TIMES DAILY, First dose on Sun10/04/19 at 2300, Until Discontinued, Routine labetaloL (Normodyne) tablet 100 mg 07 (Given - Prov ider: Deya Lujan RN)09 (Hold - Provider: Deya Lujan RN - Reason: See comment - Comment: see previous administration)2031 (Given - Provider: Gulshan Guy RN) 09 (Given - Provider: Kalani Collins RN)2046 (Given - Provider: Gulshan Perea, CHRISTEN) 0854 (Given - Provider: Carleen Porter , RN) 100 mg, Oral, 2 TIMES DAILY, First dose (after last modification) on Jada 10/02/19 at 2345, Until Discontinued, Routine levothyroxine (Synthroid) tablet 75 mcg 0701 (Given - Provider: Deya Lujan, CHRISTEN) 0533 (Given - Provider: Gulshan Guy, CHRISTEN) 0820 (Gi vega - Provider: Carleen Porter, RN) 75 mcg, Oral, EVERY MORNING, First dose on Sun10/03/19 at 0600, Until Discontinued, Routine sodium chloride 0.9 % (flush) flush 5 mL (CANCELED) 09 (Given - Provider: Merissa Funez RN)2100 (Due) 5 mL, Intravenous, 2 TIMES DAILY, First dose on Jada 10/02/19 at 2100, Until Discontinued, Routine Continuous Medication Order 10/04/2019 10/05/2019 10/06/2019 fentaNYL 2 mcg/mL, BUpivacaine (MARCAINE ) 0.125% (1.25 mg/mL)(1/8%) in sodium chloride 0.9% 250 mL epidural (CANCELED) 0259 (Rate/Dose Change - Provider: Deya Lujan RN) 10 mL/hr, Epidural, at 10 mL/hr, CONTINU OUS + PCEA, Starting Sun10/03/19 at 1700, Until 10/04/19 at 2158, Maximum rate for continuous infusion 14 mL per hour Maximum total epidural rate (continuous and PCEA bolus) is 25 mL per hour, Routine lactated ringers infusion (CANCELED) 0803 (New Bag - P rovider: Merissa Funez RN)1731 (New Bag - Provider: Merissa Funez RN) 100 mL/hr, at 100 mL/hr, Intravenous, CO NTINUOUS, Starting Jada 10/02/19 at 2030, Until 10/04/19 at 2158, Maximum 125 mL in one hour. oxytocin (PITOCIN) 30 units in sodium chloride 0.9% 50 0 mL infusion (CANCELED) 0101 (Rate/Dose Change - Provider: Deya Lujan RN)0233 (Stopped - Provider: Deya Lujan RN)0354 (New Bag - Provider: Deya Lujan RN)0430 (Rate/Dose Change - Provider: Deya Lujan, CHRISTEN) 1-30 tripp-units/min (1-30 mL/hr), Intra venous, at 1-30 mL/hr, CONTINUOUS, Starting Sun10/03/19 at 0645, Until 10/04/19 at 2158, Piggyback into Lactated Ringers; Start at 2 milliunits/minute and incr 0510 (Rate/Dose Change - Provider: Deya Lujan, CHRISTEN)0600 (Rate/Dose Change - Provider: Deya Lujan RN)0634 (Rate/Dose Change - Provider: Deya Lujan RN)0803 (Rate/Dose Change - Provider: Merissa Funez RN) ease by 2 milliunits/minutes every 30 mi nutes to achieve contractions that are every 2-3 minutes, lasting 60-90 seconds with 1 minute resting tone between contractions palpating strong. Notify OB Provid 1020 (Rate/Dose Change - Provider: Merissa Funez RN)1050 (Rate/Dose Change - Provider: Merissa Funez RN)1120 (Rate/Dose Change - Provider: Merissa Funez RN)1148 (Rate/Dose Change - Provider: Merissa Funez RN) er when oxytocin dose needs to exceed 20 milliunits/minute. Oxytocin may not be initiated until: - 1 hour after Cervidil is removed - 4 hours after last minute misoprostol dose is given, Routine 1225 (Rate/Dose Change - Provider: Naa Funez RN)1304 (Rate/Dose Change - Provider: Merissa Funez RN)1410 (Rate/Dose Change - Provider: Merissa Funez RN)1414 (Rate/Dose Change - Provider: Merissa Funez RN) 1600 (Rate/Dose Change - Pro vider: Merissa Funez RN)1630 (Rate/Dose Change - Provider: Merissa Funez RN) PRN Medication Order 10/04/2019 10/05/2019 10/06/2019 acetaminophen (Tylenol) tablet 650 mg (CANCELED) 0701 (Given - Provider: Deya Lujan RN)2031 (Given - Provider: Gulshan Guy RN) 650 mg, Oral, EVERY 6 HOURS PRN, Startin g 10/03/19 at 1140, Until 10/04/19 at 2158, Pain, Maximum dose of acetaminophen is 4000 mg from all sources in 24 hours. When ordered for pain, acetaminophe n should be given even when other ordere d pain medications are indicated. , Routine glycerin-witch Lui (TUCKS) 12.5-50 % pads 1 each 1 each, Topical (Top), 4 TIMES DAILY PRN , Irritation, perineal pain, Starting 10/04/19 at 2159, Until 10/06/19 at 2031, Application Site: vulvar ibuprofen (Advil;Motrin) tablet 600 mg 0 533 (Given - Provider: Gulshan Guy, RN)1302 (Given - Provider: Kalani Collins, CHRISTEN) 0853 (Given - Provider: Carleen Porter RN) 600 mg, Oral, EVERY 6 HOURS PRN, Startin g 10/04/19 at 2159, Until 10/06/19 at 2031, Pain, - If ordered with other PRN pain medications give Ibuprofen first, then acetaminophen, then additional agents according to the pain scale., Routine lactated Ringers 500 mL IV bolus (CANCELED) 714 (Rate /Dose Change - Provider: Deya Lujan, CHRISTEN) at 500 mL/hr, Intravenous, ONCE PRN, 1 d ose, Starting Jada 10/02/19 at 1931, Until 10/04/19 at 2158, Prior to epidural placement or concerning heart rate pattern or maternal condition. lidocaine (PF) (XYLOCAINE) 10 mg/mL (1 %) injection 300 mg 300 mg, Subcutaneous, ONCE PRN, 1 dose, Starting Jada 10/02/19 at 1931, Until 10/06/19 at 2031, Repair of laceration following delivery., Routine lidocaine (XYLOCAINE) 10 mg/mL (1 %) injection 3 mg (C OMPLETED) 715 (Given - Provider: Xiomara Yang MD) 3 mg (0.3 mL), Subcutaneous, ONCE PRN, 1 dose, Starting Jada 10/02/19 at 1931, Until 10/04/19 at 0716, for discomfort with PIV insertion, Routine lidocaine (XYLOCAINE) 2 % jelly 1 Bottle 1 Bottle, Topical (Top), ONCE PRN, Pain, Repair of laceration following delivery and/or prior to urinary catheter placement., Starting Jada 10/02/19 at 1931, 1 dose, Until 10/06/19 at 2031 magnesium hydroxide (Milk of Magnesia) (240 mg/mL) oral liquid 1 0 mL 10 mL, Oral, NIGHTLY PRN, Starting Sat at 2200, Until 10/06/19 at 2031, Constipation, - If no bowel movement by morning of post day #1. Administer if needed per patient's routine or if no bowel movement within 24 hours to ac hieve: 1) One bowel movement at least every 24 hours, AND 2) Without straining., Routine naloxone (NARCAN) injection 0.2 mg 0.2 mg, Intravenous, EVERY 1 MIN PRN, St arting 10/03/19 at 1604, Until Sun10/06/19 at 2031, Opioid Reversal, If respiratory rate less than 8 OR the patient is unable to arouse OR SpO2 is declining, G lars for respiratory rate of less than or equal to 8 and patient is heavily sedated or unarousable. May repeat every 60 seconds to increase respiratory rate. DO NOT exceed 2 mg total dose. Per Epidural order., Routine simethicone (Mylicon) chewable tablet 80 mg 80 mg, Oral, 4 TIMES DAILY PRN, Starting 10/04/19 at 2200, Until Sun10/06/19 at 2031, Cramping, gas pain, Routine documented in this encounter Care Teams Animal Assisted Therapist Relationship Specialty Start Date End Date Genet Holland PA PCP - General Family Medicine 02/06/19 05/15/20 [address] [place] [address] documented as of this encounter
--- OUTSIDE RECORDS SUMMARY | 2021-10-20 07:56 | XMS_ITS | Encounter Summary ---
:1985 Author Organization [facility] [place] [address] Care Team Providers Name Role Phone Genet Holland Primary Care Provider Reason for Visit Reason Comments Ultrasound Auth/Cert Specialty Diagnoses / Procedures Referred By Contact Refer red To Contact Diagnoses Encounter for planned induction of labor Procedures VAGINAL DELIVERY Referral ID Status Reason Start Date Expiration Date Visits Requ ested Visits Authorized [id number] 1 1 Encounter Details Date Type Department Care Team Description 09/30/2019 Routine Obstetrics and PscSherly maciel, [place]: 38w2d Gynecology at [facility] Celia gutierrez [facility] [place] [address] OBSTETRICS & [phone] GYNECOLOGY [place], [place] [address] (Wo rk) Social History Tobacco [...] Sign Reading Time Taken Comments Blood Pressure 118/76 09/30/2019 8:46 AM EDT Pulse - - Temperature - - Respiratory Rate - - Oxygen Saturation - - Inhaled Oxygen Concentration - - Weight 98.6 kg (217 lb 6.4 oz) 09/30/2019 8:46 AM EDT Height - - Body Mass Index 32.1 08/06/2019 4:12 PM EDT documented in this encounter Progress Notes Pschirrer, E Candi, MD - 09/30/2019 10:00 AM EDT 38w2d BP 118/76 Wt 98.6 kg (217 lb 6.4 oz) LMP 11/10/2018 (LMP Unknown) BMI 32.10 kg/m?? Good movement. No contractions/ leaking fluid / bleeding / pain. No headache, vision changes, RUQ pain. Reports increased itching, all over, but also on palms and soles. Will check LFT and bile acids. Swelling in LE continues. If any elevation of LFT or bile acids will move to delivery. RTC 1 week. documented in this encounter Miscellaneous Notes Addendum Note - Raquel Blackwell - 09/30/2019 10:00 AM EDT Addended by: RAQUEL BLACKWELL on: 09/30/2019 09:30 AM Modules accepted: Orders documented in this encounter Plan of Treatment Not on filedocumented as of this encounter Procedures Procedure Name Priority Date/Time Associated Diagnosis Comme nts HC PCH BILE ACIDS, Routine 09/30/2019 9:47 AM Supervision of h igh Results for this FRACTIONATED AND EDT risk in proced ure are in TOTAL third trimester the results section. HC VENIPUNCTURE Routine 09/30/2019 9:47 AM Supervision of high Results for this EDT risk in procedure are in third trimester the results section. documented in this encounter Results (ABNORMAL) Hepatic Function Panel (09/30/2019 9:47 AM EDT) P athologist Signature Total Protein 6.2 6.1 - 8.0 [facility] gm/dL [facility] Albumin 3.3 3.2 - 5.2 [facility] gm/dL [facility] AST 68 (H) 0 - 30 [facility] unit/L [facility] ALT 47 (H) 0 - 30 [facility] unit/L [facility] Alk Phos 209 (H) 35 - 105 [facility] Total 0.6 0.2 - 1.3 [facility] Bilirubin mg/dL [facility] Bili, Direct 0.2 0.0 - 0.3 [facility]dL [facility] Specimen Anatomical Collection Method Collection Time Receive d Time (Source) Location / / Volume Laterality Blood specimen 09/30/2019 9:47 AM 020 9:53 (specimen) EDT AM EDT Resulting Agency Comment Spec In Lab E Candi Reno MD CHEMISTRY ORDERABLES Performing Organization Address City/State/ZIP [place] [address] (ABNORMAL) Bile Acids, Fractionated and Total (09/30/2019 9:47 AM EDT) P athologist Signature Cholic Acid 9.49 (H) <=5.00 [facility] nmol/mL [facility] Comment: Test Performed by: [facility] [place] [address] Supervisor Ordnance Truck Installation: Magdaleno Henriquez M.D. Ph. D.; CLIA# [id number] Deoxycholic Acid <0.07 <=6.00 nmol/mL [facility] Comment: Test Performed by: [facility] [place] [address] Supervisor Ordnance Truck Installation: Magdaleno Henriquez M.D. Ph. D.; CLIA# [id number] Chenodeoxycholic Acid 13.53 (H) <=6.00 nmol/mL [facility] Comment: Test Performed by: [facility] [place] [address] Supervisor Ordnance Truck Installation: Magdaleno Henriquez M.D. Ph. D.; CLIA# [id number] Ursodeoxycholic Acid 0.38 <=2.00 nmol/mL [facility] Comment: Test Performed by: [facility] [place] [address] Supervisor Ordnance Truck Installation: Magdaleno Henriquez M.D. Ph. D.; CLIA# [id number] Total Bile Acids 23.41 (H) <=19.00 nmol/mL [facility] Comment: ADDITIONAL INFORMATIO N Liquid Chromatography-Tandem Mass Spectr ometry (LC-MS/MS) This test was developed and its performa nce characteristics determined by [facility] in a manner co nsistent with CLIA requirements. This test has not been ruma ared or approved by the U.S. Food and Drug Administration. Test Performed by: [facility] [place] [address] Supervisor Ordnance Truck Installation: Magdaleno Henriquez M.D. Ph. D.; CLIA# [id number] Specimen Anatomical Collection Method Collection Time Receive d Time (Source) Location / / Volume Laterality Blood specimen 09/30/2019 9:47 AM 020 2:26 (specimen) EDT PM EDT Resulting Agency Comment Spec In Lab E Candi Reno MD CHEMISTRY ORDERABLES Performing Organization Address City/State/[facility] [place] [address] documented in this encounter Visit Diagnoses Diagnosis Supervision of high risk in th ird trimester Unspecified high-risk documented in this encounter Care Teams Food And Nutrition Professor Relationship Specialty Start Date End Date Genet Holland PA PCP - General Family Medicine 02/06/19 05/15/[address] [place] [address] [id number] documented as of this encounter
--- OUTSIDE RECORDS SUMMARY | 2021-10-20 07:56 | XMS_ITS | Encounter Summary ---
:1985 Author Organization [facility] [place] [address] Care Team Providers Name Role Phone Genet Holland Primary Care Provider Reason for Visit Reason Comments Routine Visit Encounter Details Date Type Department Care Team Description 08/13/2019 Routine Obstetrics and Marcie Baron MD GA: 31w3d Gynecology at [facility] Celia gutierrez [facility] & [place] [address] GYNECOLOGY [phone] [place], [place] [address] (Wo rk) Social History Tobacco Use Types [...] Sign Reading Time Taken Comments Blood Pressure 111/59 08/13/2019 2:08 PM EDT Pulse - - Temperature - - Respiratory Rate - - Oxygen Saturation - - Inhaled Oxygen Concentration - - Weight 90 kg (198 lb 6.4 oz) 08/13/2019 2:08 PM EDT Height - - Body Mass Index 29.3 08/06/2019 4:12 PM EDT documented in this encounter Progress Notes Marcie Baron MD - 08/13/2019 2:00 PM EDT 31 weeks Feels completely recovered from pneumonia. Minimal cough Will taper prednisone over next 3 days. She denies bleeding, leaking of fluid, pain or regular contractions. She notes good movement. Mood. Better since increase of prozac Needs Tdap. I did not remind her today. RTC 2 weeks with US documented in this encounter Plan of Treatment Not on filedocumented as of this encounter Results US OB Follow Up (08/28/2019 8:33 AM EDT) Anatomical Region Laterality Modality Pelvis, Abdomen Ultrasound Specimen (Source) Anatomical Collection Method Collection Time Re ceived Time Location / / Volume Laterality 08/28/2019 8:31 AM EDT Impressions 08/28/2019 8:40 AM EDT 3rd Trimester Summary Single intrauterine with a ge stational age of 33w 4d based on U/S C R L ??(03/05/19) Composite age based on the current ultr asound alone is 35w 2d. Estimated weight corresponds to t he 93th percentile for 33w 4d. Current growth parameters are consisten t with prior dating indicating normal growth. Amniotic fluid volume is mild hydramnio s Anatomical survey is limited due to the late gestational age. ?Marcie Baron, Section C hief Electronically Signed Final Report ?? 08:40 am Narrative 08/28/2019 8:40 AM EDT OBSTETRICS REPORT ? (Signed Final 08/28/2019 08:40 am) PATIENT INFO: ID #: ? [id number] ?: ??[birth year] (34 yrs)(F) Name: ? SHIRLENE PARKS ?Visit Date: 08/28/2019 08:31 am PERFORMED BY: Performed By: ? Roxana ROMERO, ??Javid davis Attending: ?Loraine NAPOLES, Marcie Skelton Referred By: ?MARCIE BARON Location: ? Branch SERVICE(S) PROVIDED: ??UOBFOL - Efw - Growth ??- [place] - [id number] INDICATIONS: ??33 weeks gestation of ?Z3A.33 ??pneumonia during VITAL SIGNS: Weight (lb): 198.0 Height: ?5'9 ?BMI: ?29.24 EVALUATION: Num Of Fetuses: ?1 Heart Rate(bpm): ?? 129 Cardiac Activity: ?Observed, normal rhythm Presentation: ?Cephalic Placenta: ?Glassine Machine Tender ior P. Cord Insertion: ? Within Norm al Limits Amniotic Fluid CHRISTIE FV: ?Mild polyhydramnios CHRISTIE Sum(cm) ? Lar gest Pocket(cm) 24.03 ? 7.43 RUQ(cm) ? RLQ(cm) ? LUQ(c m) ?LLQ(cm) 6.2 ? 5.9 ? 7 .4 ?4.5 --------- BIOMETRY: --------- BPD: ?87.3 ??mm ? G.Age: ?? 35w 2d ?88 ??% OFD: ? 114.2 ??mm HC: ?321.1 ??mm ? G.Age: ?? 36w 2d ?80 ??% AC: ?328.6 ??mm ? G.Age: ?? 36w 5d ?> 97 ??% FL: ? 62.9 ??mm ? G.Age: ?? 32w 4d ?17 ??% CER: ?40.9 ??mm ? G.Age: ?? 34w 6d ?65 ??% LV: ?5.6 ??mm CM: ?7.8 ??mm CI: ?76.4 ??% ? 70 - 86 FL/HC: ? 19.6 ??% ? 19.4 - 21.8 HC/AC: ? 0.98 ?0.96 - 1.11 FL/BPD: ?72.1 ??% ? 71 - 87 FL/AC: ? 19.1 ??% ? 20 - 24 Est. FW: ?2692 ?? gm ?? 5 lb 15 oz ? 93 ??% OB HISTORY: Blood Type: ?A+ : ?4 ? Term: ?? 1 ? SAB: ?? 2 Living: ? 1 GESTATIONAL AGE: U/S Today: ? 35w 2d ?ASHLIE: ?? 09/30/19 Best: ?33w 4d ?? Det. By: ??U/S C R L ?ASHLIE: ?? 10/12/19 ? (03/05/19) -------- ANATOMY: -------- Cranium: ? Visualize d Cavum: ? Visualiz ed Ventricles: ?Visualized Choroid Plexus: ?Visualized Cerebellum: ?Visualized Posterior Fossa: ? Visualized Nuchal Fold: ? Not evaluat ed at this gestational age Face: ?Limited views Heart: ? 4-chambe r view appears normal RVOT: ?Visuali zed LVOT: ?Visuali zed Diaphragm: ? Visualized Stomach: ? Visualize d Abdomen: ? Within No rmal Limits Abdominal Wall: ?Not seen due to late gestational age Cord Vessels: ?3-vessels- WNL Kidneys: ? Visualize d Bladder: ? Visualize d Spine: ? Limited views Upper Extremities: ? Limited views Lower Extremities: ? Limited views CERVIX UTERUS ADNEXA: Left Ovary Not visualized Right Ovary Not visualized Procedure Note Marcie Baron MD - 08/28/2019Formattin g of this note might be different from the original. OBSTETRICS REPORT (Signed Final 020 08:40 am) PATIENT INFO: ID #: [id number] : [birth year] (34 y rs)(F) Name: SHIRLENE PARKS Visit Date: 08/27 08:31 am PERFORMED BY: Performed By: Gretchen Schmidt RDMS Attending: Marcie Baron MD Referred By: MARCIE BARON Location: Branch SERVICE(S) PROVIDED: UOBFOL - Efw - Growth - [place] [facility] 1703 [id number] INDICATIONS: 33 weeks gestation of Z3A.33 pneumonia during VITAL SIGNS: Weight (lb): 198.0 Height: 5'9 BMI: 29.24 EVALUATION: Num Of Fetuses: 1 Heart Rate(bpm): 129 Cardiac Activity: Observed, normal rhyt hm Presentation: Cephalic Placenta: Posterior P. Cord Insertion: Within Normal Limits Amniotic Fluid CHRISTIE FV: Mild polyhydramnios CHRISTIE Sum(cm) Largest Pocket(cm) 24.03 7.43 RUQ(cm) RLQ(cm) LUQ(cm) LLQ(cm) 6.2 5.9 7.4 4.5 --------- BIOMETRY: --------- BPD: 87.3 mm G.Age: 35w 2d 88 % OFD: 114.2 mm HC: 321.1 mm G.Age: 36w 2d 80 % AC: 328.6 mm G.Age: 36w 5d > 97 % FL: 62.9 mm G.Age: 32w 4d 17 % CER: 40.9 mm G.Age: 34w 6d 65 % LV: 5.6 mm CM: 7.8 mm CI: 76.4 % 70 - 86 FL/HC: 19.6 % 19.4 - 21.8 HC/AC: 0.98 0.96 - 1.11 FL/BPD: 72.1 % 71 - 87 FL/AC: 19.1 % 20 - 24 Est. FW: 2692 gm 5 lb 15 oz 93 % OB HISTORY: Blood Type: A+ : 4 Term: 1 SAB: 2 Livin GESTATIONAL AGE: U/S Today: 35w 2d ASHLIE: 09/30/19 Best: 33w 4d Det. By: U/S C R L ASHLIE: (03/05/19) -------- ANATOMY: -------- Cranium: Visualized Cavum: Visualized Ventricles: Visualized Choroid Plexus: Visualized Cerebellum: Visualized Posterior Fossa: Visualized Nuchal Fold: Not evaluated at this gest ational age Face: Limited views Heart: 4-chamber view appears normal RVOT: Visualized LVOT: Visualized Diaphragm: Visualized Stomach: Visualized Abdomen: Within Normal Limits Abdominal Wall: Not seen due to late ge stational age Cord Vessels: 3-vessels- WNL Kidneys: Visualized Bladder: Visualized Spine: Limited views Upper Extremities: Limited views Lower Extremities: Limited views CERVIX UTERUS ADNEXA: Left Ovary Not visualized Right Ovary Not visualized IMPRESSION 3rd Trimester Summary Single intrauterine with a ge stational age of 33w 4d based on U/S C R L (03/05/19) Composite age based on the current ultr asound alone is 35w 2d. Estimated weight corresponds to t 93th percentile for 33w 4d. Current growth parameters are consisten t with prior dating indicating normal growth. Amniotic fluid volume is mild hydramnio s Anatomical survey is limited due to the late gestational age. Marcie Baron, Inspector Conveyor Line Electronically Signed Final Report 08/27 08:40 am Marcie Baron MD IMG OB ORDERABLES documented in this encounter Visit Diagnoses Diagnosis Pneumonia affecting in third t rimester Pneumonia affecting in third t rimester documented in this encounter Care Teams Guyline Operator Relationship Specialty Start Date End Date Genet Holland PA PCP - General Family Medicine 02/06/19 05/15/[address] [place], [place] [id number] documented as of this encounter
--- OUTSIDE RECORDS SUMMARY | 2021-10-20 07:56 | XMS_ITS | Encounter Summary ---
:1985 Author Organization [place] [address] Care Team Providers Name Role Phone Genet Holland Primary Care Provider Encounter Details Date Type Department Care Team Description 10/16/2019 Visit Obstetrics and Jennifer Wu, Opio id use disorder, Gynecology at [facility] severe, in sustained [facility] , on [address] maintenance therapy [place], [place] OBSTETRICS & [address] GYNECOLOGY [phone] [place], [place] [address] Social History Tobacco Use Types [...] Sign Reading Time Taken Comments Blood Pressure 128/73 10/16/2019 2:08 PM EDT Pulse 71 10/16/2019 2:08 PM EDT Temperature - - Respiratory Rate 17 10/16/2019 2:08 PM EDT Oxygen Saturation 97% 10/16/2019 2:08 PM EDT Inhaled Oxygen Concentration - - Weight 88.7 kg (195 lb 9.6 oz) 10/16/2019 2:08 PM EDT Height - - Body Mass Index 28.87 10/04/2019 8:10 AM EDT documented in this encounter Progress Notes Jennifer Wu, SAMUEL - 10/16/2019 1:40 PM EDT CC: visit HPI: Shirlene Kovacs is a 34 yo who is seen at 10d following nonsurgical vaginaldelivery. Feels well, lochia decreased, periurethral lacerations are healing well. C/O afterpains and temporarily increased lochial flow with /letdown. Working with to support - Has had to supplement with formula; Still using nipple shield but her daughter is feeding more vigorously now and seems more content after nursing. Mood has been up and down, primarily due to unkind comments about her 's appearance from her aunt. Has good support from her mother and has tried to distance herself from negativity. ROS: Denies fever, chills, abdominal pain other than cramping while . OBJECTIVE: Mood: Good eye contact, answers appropriately, affect not blunted. ASSESSMENT: Early care, normal progress PLAN: Urine toxicology sent per Shirlene's request Follow up with Plan q2 week follow up documented in this encounter Plan of Treatment Not on filedocumented as of this encounter Procedures Procedure Name Priority Date/Time Associated Diagnosis Comme nts RAPID DRUG SCREEN, Routine 10/16/2019 1:40 PM Opioid use disor mario, Results for this COMPLIANCE EDT severe, in sustained procedu re are in MONITORING remission, on the results maintenance therapy section. HC URINE DRUG SCREEN Routine 10/16/2019 1:40 PM Opioid use dis order, BY INSTRUMENT EDT severe, in sustained remission, on maintenance therapy TARGETED OPIOID Routine 10/16/2019 1:40 PM Opioid use disorder , Results for this PANEL, COMPLIANCE EDT severe, in sustained pr ocedure are in MONITORING remission, on the results maintenance therapy section. documented in this encounter Results (ABNORMAL) Targeted Opioid Panel, Compliance Monitoring (10/16/2019 1:40 PM EDT) Component Value Ref Test Analysis Performed At [facility] Method Time Signature Targeted COLE[place] Opioid Test ?Result ? Flag ??Unit ?? RefValue BHARATI Panel, Urine MEMORIAL Targeted Opioid Screen, U HOSP ITAL ??List prescribed opioids ? See medica tion list LABORATORY ? ADDITIONAL INFORMATION ------ ?Accuracy and completeness of declared medications on ?reports solely dependent on information submitted by ?client. ??Codeine ? Not Detected ? ng/mL ??Cutoff: 25 ?Tylenol 3 ??Hptiqyh-1-pisb-glucuronid e ?Not Detected ? ng/mL ??Cutoff: 100 ?Metabolite of codeine ??Morphine ?Not Detected ? ng/mL ??Cutoff: 25 ?Gabi Colin, MS Contin; Also a minor metabolite (10 %) of ?codeine and can be seen in low concentrations (<2,000 ?ng/mL) with poppy seed ingestion. ??Ujzousqe-8-ovis-glucuroni de ? Not Detected ? ng/mL ??Cutoff: 100 ?Metabolite of morphine ??6-monoacetylmorphine ?Not Detected ? ng/mL ??Cutoff: 25 ?Metabolite of heroin ??Hydrocodone ? Not Detected ? ng/mL ??Cutoff: 25 ?Lortab, [place], Vicodin; Also a very minor metabolite o f ?codeine and impurity (<1%) of oxycodone. ??Norhydrocodone ?Not Detected ? ng/mL ??Cutoff: 25 ?Metabolite of hydrocodone ??Dihydrocodeine ?Not Detected ? ng/mL ??Cutoff: 25 ?Metabolite of hydrocodone ??Hydromorphone ? Not Detected ? ng/mL ??Cutoff: 25 ?Dilaudid, Exalgo; Also a metabolite of hydrocodone and a ?minor (<5%) metabolite of morphine. ??Nvfbginivpuya-2-hemh-gluc uronide ?Not Detected ? ng/mL ??Cutoff: 100 ?Metabolite of hydromorphone ??Oxycodone ? Not Detected ? ng/mL ??Cutoff: 25 ?Endocet, Percocet, Oxycontin ??Noroxycodone ?Not Detected ? ng/mL ??Cutoff: 25 ?Metabolite of oxycodone ??Oxymorphone ? Not Detected ? ng/mL ??Cutoff: 25 ?Numorphan, Opana; Also a metabolite of oxycodone. ??Xvqqxmnkxxh-2-dgoa-glucur onide ?Not Detected ? ng/mL ??Cutoff: 100 ?Metabolite of oxymorphone and/or naloxone (nornaloxone ) ??Noroxymorphone ?Not Detected ? ng/mL ??Cutoff: 25 ?Metabolite of oxymorphone and/or naloxone (nornaloxone ) ??Fentanyl ?Not Detected ? ng/mL ??Cutoff: 2 ?Actiq, Duragesic, Fentora ??Norfentanyl ? Not Detected ? ng/mL ??Cutoff: 2 ?Metabolite of fentanyl ??Meperidine ?Not Detected ? ng/mL ??Cutoff: 25 ?Demerol ??Normeperidine ? Not Detected ? ng/mL ??Cutoff: 25 ?Metabolite of meperidine ??Naloxone ?Not Detected ? ng/mL ??Cutoff: 25 ?Narcan ??Mbvfkokj-8-gtlj-glucuroni de ? Present ? @ ?ng/mL ??Cutoff: 100 ?Metabolite of naloxone ??Methadone ? Not Detected ? ng/mL ??Cutoff: 25 ?Dolophine ??EDDP ?Not Detected ? ng/mL ??Cutoff: 25 ?Metabolite of methadone ??Propoxyphene ?Not Detected ? ng/mL ??Cutoff: 25 ?Darvon, Darvocet ??Norpropoxyphene ? Not Detected ? ng/mL ??Cutoff: 25 ?Metabolite of propoxyphene ??Tramadol ?Not Detected ? ng/mL ??Cutoff: 25 ?Tradol, Ultram, Ultracet ??O-desmethyltramadol ? Not Detected ? ng/mL ??Cutoff: 25 ?Metabolite of tramadol ??Tapentadol ?Not Detected ? ng/mL ??Cutoff: 25 ?Nucynta ??N-desmethyltapentadol ? Not Detected ? ng/mL ??Cutoff: 50 ?Metabolite of tapentadol ??Vdqohmlfpq-nxsv-yqpzfilgb de ? Not Detected ? ng/mL ??Cutoff: 100 ?Metabolite of tapentadol ??Buprenorphine ? Not Detected ? ng/mL ??Cutoff: 5 ?Buprenex, Suboxone ??Norbuprenorphine ?Present ? @ ?ng/mL ??Cutoff: 5 ?Metabolite of buprenorphine ??Norbuprenorphine glucuron aleksandr ?Present ? @ ?ng/mL ??Cutoff: 20 ?Metabolite of buprenorphine ??Opioid Interpretation ? SEE COMMENT S ?Test detected the presence of buprenorphine metabolite s ?(norbuprenorphine and norbuprenorphine glucuronide) al joseline ?with naloxone metabolite (jiexqrtp-3-yjci-glucuronide) . ?Suspect use of buprenorphine with naloxone (e.g. Subox one) ?within the past three days. ? ADDITIONAL INFORMATION ------ ?This test was developed and its performance characteri stics ?determined by [facility] in a manner consistent with CLIA ?requirements. This test has not been cleared or approv ed by ?the U.S. Food and Drug Administration. ?Test Performed by: ?[facility] [place] ?[address] [place] [address] ?Facility Environmental Technician: Magdaleno Henriquez M.D. Ph.D.; CLIA# [id number] (A) Specimen Anatomical Collection Method Collection Time Receive d Time (Source) Location / / Volume Laterality Urine specimen 10/16/2019 1:40 PM 020 (specimen) EDT 10:48 AM EDT Jennifer Wu CNPippa URINE ORDERABLES Performing Organization Address City/State/[place] [address] Rapid Drug Screen, Compliance Monitoring (10/16/2019 1:40 PM EDT) [facility] Method Time Signature U Barbiturates None None [facility] Screen Detected Detected [facility] Comment: The barbiturate screen [...] U Benzodiazepines Screen None Detected None Detected [facility] Comment: The benzodiazepines screen [...] U Cocaine Screen None Detected None Detected [facility] Comment: The cocaine metabolites [...] Cannabinoid Screen None Detected None Detected [facility] Comment: The marijuana metabolites screen detects the THC metabolite (76-eip-0-carboxy-delta 9-THC) at concen trations >20 ng/mL. A ? Presumptive Positive? result indicates that the screening result was positive but has not yet been confirmed by a highly-specific method. As with any screen, occasional false positive re sults from cross-reacting substances may occur. Not for Medico-Legal Purposes. U Tricyclics Screen None Detected None Detected [facility]LLI [facility] Comment: The tricyclics screen [...] U Ethanol Screen None Detected None Detected [facility] Comment: This urine ethanol assay detect s ethanol at concentrations >/= 100 mg/L. U Amphetamines Screen None Detected None Detected [facility] Comment: The amphetamine screen [...] Screen None Detected None Detected [facility]ipp[facility] Comment: No adulteration or dilution of this urin e sample was detected. All urine samples submitted for urine drugs of abu se analysis are tested for creatinine concentration, pH, and for the presence of oxidants, nitrites, and chromate. Specimen Anatomical Collection Method Collection Time Receive d Time (Source) Location / / Volume Laterality Urine specimen 10/16/2019 1:40 PM 020 3:26 (specimen) EDT PM EDT Resulting Agency Comment Spec In Lab Jennifer Wu CNM URINE ORDERABLES Performing Organization Address City/State/[place] [address] documented in this encounter Visit Diagnoses Diagnosis Opioid use disorder, severe, in sustaine d remission, on maintenance therapy documented in this encounter Care Teams Bevel Face Stoner And Polisher Relationship Specialty Start Date End Date Genet Holland PA PCP - General Family Medicine 02/06/19 05/15/20 [address] [place] [address] documented as of this encounter
--- OUTSIDE RECORDS SUMMARY | 2021-10-20 07:56 | XMS_ITS | Encounter Summary ---
:1985 Author Organization [facility] [address] Care Team Providers Name Role Phone Genet Holland Primary Care Provider Encounter Details Date Type Department Care Team Description 09/21/2019 Telephone Obstetrics and Gynecology at Nhi Caldwell MD [facility] Celia gutierrez OBSTETRICS & [place] [address] [place] [address] [phone] (Wo rk) Social History Tobacco Use Types Packs/Day Years Used Date Current Every Day Smoker Cigarettes 0.25 Smokeless Tobacco: Never Used Alcohol Use Standard Drinks/Week Comments No 0 (1 standard drink = 0.6 oz pure alcoho l) Not during Sex Assigned at Date Recorded Female 04/13/2020 8:26 AM EST documented as of this encounter Miscellaneous Notes Telephone Encounter - Nhi Giron - 09/21/2019 3:34 PM EDT Shirlene Kovacs is a 34 y.o. at 37w0d GA who calls the OB triage line with a weird pain in her vagina. States that this is difficult to described but reports that it comes/goes (every 5 minutes) and feels like cramping/pressure in her vagina. Started 3 hours ago, no change in intensity (6-7/10, but not bad). No stomach tightening. No bloody show or vaginal bleeding. No leakage of fluid. Good movements. No recent intercourse or abdominal trauma. She fell on her butt yesterday evening but did not hit her stomach. Did not feel this in her last and asks what this is. She has an appointment tomorrow morning with Dr. Reno but wonders if she should be evaluated sooner. [place] from [facility]. She was last seen at [facility] on and was told her cervix wasopen. GBS neg (09/16/19). complicated by the following: hx Hodgkins Lymphoma (s/p chemotherapy 2002), hypothyroidism, asthma, HCV positive, hx ROLAND on MAT (Suboxone), bipolar/anxiety/PTSD, ?schizophrenia, hx suicide attempt, varicella non-immune, bacterial vaginosis treated this , polyhydramnios/LGA on last US (08/27), palpitations (on labetalol). While on the phone, she had the vaginal pain again and had to stop and breath through it. I discussed that this may be a sign of early labor and asked her to present for evaluation. Patient in agreement, will start her drive to [facility]. material requirements worker aware. Nhi Giron MD PGY4 09/21/19 Nhi Giron MD PGY4 09/21/19 documented in this encounter Plan of Treatment Not on filedocumented as of this encounter Visit Diagnoses Not on filedocumented in this encounter Care Teams Field Service Consultant Relationship Specialty Start Date End Date Genet Holland PA PCP - General Family Medicine 02/06/19 05/15/[address] [place] [id number] documented as of this encounter
--- OUTSIDE RECORDS SUMMARY | 2021-10-20 07:56 | XMS_ITS | Encounter Summary ---
:1985 Author Organization [facility] [place] [address] Care Team Providers Name Role Phone Genet Holland Primary Care Provider Encounter Details Date Type Department Care Team Description 10/02/2019 Telephone Obstetrics and [place]necology [place] [address] Social History Tobacco Use Types Packs/Day Years Used Date Current Every Day Smoker Cigarettes 0.25 Smokeless Tobacco: Never Used Alcohol Use Standard Drinks/Week Comments No 0 (1 standard drink = 0.6 oz pure alcoho l) Not during Sex Assigned at Date Recorded Female 04/13/2020 8:26 AM EST documented as of this encounter Miscellaneous Notes Telephone Encounter - Laure Gray RN - 10/02/2019 12:24 PM EDT Images from the original note were not included. Note Call placed to patient. She calls to f/u on LFT's. Reports Dr. Green was going to go to delivery if her LFT's were high. ?? She reports ongoing pruritis. Denies jaundice. Has positive movement(last occurrence this am). Feels however less movement in the past 4 daysoverall. Reports nausea. VOmited x2 yesterday but had not taken her promethazine. Denies fevers. Had a few instances of chills. ?? Reports vaginal odor. Strong smelling onset yesterday. Has discharge; no change in baseline however. She does reports headache. No relief with Tylenol. ?? Will discuss with provider and return call. ? Me ?? 11:17 AM Note ----- Message from Laure Gray RN sent at 10/02/2019 11:16 AM EDT ----- ?? ----- Message ----- From: Jahaiar Lopes Sent: 10/02/2019 11:02 AM EDT To: Neelam Rodgers RN ?? Shirlene called asking about the results of her labs, please call her back at [phone] documented in this encounter Plan of Treatment Not on filedocumented as of this encounter Visit Diagnoses Not on filedocumented in this encounter Care Teams Mounting Machine Operator Relationship Specialty Start Date End Date Genet Holland PA PCP - General Family Medicine 02/06/19 05/15/20 [address] [place] [address] documented as of this encounter
--- OUTSIDE RECORDS SUMMARY | 2021-10-20 07:56 | XMS_ITS | Encounter Summary ---
:1985 Author Organization [facility] [place] [address] Care Team Providers Name Role Phone Genet Holland Primary Care Provider Encounter Details Date Type Department Care Team Description 08/28/2019 Routine Obstetrics and German Fernández MD GA: 33w4d [place] [address] [place] [id number] [phone] Social History Tobacco Use Types Packs/Day Years [...] Sign Reading Time Taken Comments Blood Pressure 114/64 08/28/2019 9:14 AM EDT Pulse - - Temperature - - Respiratory Rate - - Oxygen Saturation - - Inhaled Oxygen Concentration - - Weight 92 kg (202 lb 12.8 oz) 08/28/2019 9:14 AM EDT Height - - Body Mass Index 29.95 08/06/2019 4:12 PM EDT documented in this encounter Progress Notes German Fernández MD - 08/28/2019 9:15 AM EDT Previsit chartin yo at 33w4d with hx/o hodgkins and ROLAND, Palpatation 1) ROLAND: onSuboxone 2) Hx/o of Hodgkins s/p chemo including doxorubicin and irradiation S/p reassuring maternal echo with EF = 62%, normal PA pressure estimate. 3) Hypothyroidism on Synthroid Last TSH = 2.44 on 07/04/2019 4) Palpatations: on Labetalol 5) Hospitalized with pneumonia Discharged- Reports (by phone) she is fully recovered. Pt had to leave before being seeing today. Discussed results of US by phone with patient: Generally reassuring but measurements c/w macrosomia and mild polyhydramnios. Of note, pt had normal1 hour GTT on 07/03 (96 mg/dl) Pt needs tDAP. Pt to return next week for visit with tDAP. MD Dexter documented in this encounter Plan of Treatment Not on filedocumented as of this encounter Visit Diagnoses Diagnosis Supervision of high risk in ird trimester - Primary Unspecified high-risk documented in this encounter Care Teams Industrial Nurse Relationship Specialty Start Date End Date Genet Holland PA PCP - General Family Medicine 02/06/19 05/15/[address] [place] [id number] documented as of this encounter
--- OUTSIDE RECORDS SUMMARY | 2021-10-20 07:56 | XMS_ITS | Encounter Summary ---
:1985 Author Organization [facility] [place] [address] Care Team Providers Name Role Phone Genet Holland Primary Care Provider Encounter Details Date Type Department Care Team Description 08/28/2019 Hospital Encounter Ultrasound [place] [facility] Marcie Baron, Pneumonia affecting [facility] in [address] [facility] [address] OBSTETRICS & [phone] [place] [address] Social History Tobacco Use Types Packs/Day Years [...] Sig Dispensed Refills Start Date End Date albuteroL 90 Inhale 2 puffs into 1 [...] times daily. PowderIndications: Constipation, unspecified constipation type predniSONE (Deltasone) 20 Take 20 mg by 0 09/16/2019 mg Tablet mouth. labetaloL (Normodyne) 100 take 1 tablet by 60 tablet 0 07/08/201909/08/2019 mg Tablet mouth 2 TIMES A DAY FLUoxetine (PROzac) 20 mg Take 3 tablets by 90 tablet 2 02/201910/01/2019 Tablet mouth daily. buprenorphine-naloxone Place 16 mg of 56 each 0 0 09/03/2019 (SUBOXONE) 8-2 mg Film opiate under the tongue daily. azithromycin (Zithromax) Take 1 tablet by 1 tablet 0 08/0309/16/2019 250 mg Tablet mouth daily. cefpodoxime (Vantin) 200 Take 1 tablet by 3 tablet 0 08/0210/06/2019 mg Tablet mouth 2 times daily. promethazine (Phenergan) Take 1 tablet by 60 tablet 1 07/0810/06/2019 25 mg Tablet mouth every 6 hours as needed for Nausea. Doxylamine-Pyridoxine Take 1 tablet by 60 tablet 0 06/18/19 20 10/06/2019 10-10 mg Tablet, Delayed mouth 2 times Release (E.C.) daily. Plus, calcium Take 1 tablet by 90 tablet 3 020 09/15/2020 carb, 27 mg iron- 1 mg mouth daily. Tablet documented as of this encounter Plan of Treatment Not on filedocumented as of this encounter Procedures Procedure Name Priority Date/Time Associated Diagnosis Comme nts US OB FOLLOW UP Routine 08/28/2019 8:33 AM Pneumonia affecting Results for this EDT in third procedure are in trimester the results section. documented in this encounter Results US OB Follow Up [...] 08:40 am) PATIENT INFO: ID #: ? [id number] ?: ??[birth year] (34 yrs)(F) Name: ? SHIRLENE PARKS ?Visit Date: 08/28/2019 08:31 am PERFORMED BY: Performed By: ? Roxana ROMERO, ??Javid davis Attending: ?Loraine NAPOLES, Marcie Skelton Referred By: ?MARCIE BARON Location: ? [place] SERVICE(S) PROVIDED: ??UOBFOL - Efw - Growth ??- [place] - [id number] INDICATIONS: ??33 weeks gestation of ?Z3A.33 ??pneumonia during VITAL SIGNS: Weight (lb): 198.0 Height: ?5'9 ?BMI: ?29.24 EVALUATION: Num Of Fetuses: ?1 Heart Rate(bpm): ?? 129 Cardiac Activity: ?Observed, normal rhythm Presentation: ?Cephalic Placenta: ?Client Support Associate ior P. Cord Insertion: ? Within Norm [...] - 87 FL/AC: ? 19.1 ??% ? - Est. FW: ?2692 ?? gm ?? 5 [...] 020 08:40 am) PATIENT INFO: ID #: [id number] : [birth year] (34 y rs)(F) Name: SHIRLENE PARKS Visit Date: 08/27 08:31 am PERFORMED BY: Performed By: Gretchen Schmidt RDMS Attending: Marcie Baron MD Referred By: MARCIE BARON Location: [place] SERVICE(S) PROVIDED: UOBFOL - Efw - Growth - [place] - [facility] [id number] INDICATIONS: 33 weeks gestation of Z3A.33 pneumonia [...] to the late gestational age. Marcie Baron, Horse Race Starter Electronically Signed Final Report 08/27 08:40 am Marcie Baron MD IMG US OB ORDERABLES documented in this encounter Visit Diagnoses Diagnosis Pneumonia affecting in third t rimester documented in this encounter Care Teams Manager Food Relationship Specialty Start Date End Date Genet Holland PA PCP - General Family Medicine 02/06/19 05/15/[address] [place] [id number] documented as of this encounter
--- OUTSIDE RECORDS SUMMARY | 2021-10-20 07:56 | XMS_ITS | Encounter Summary ---
:1985 Author Organization [facility] [place] [address] Care Team Providers Name Role Phone Genet Holland Primary Care Provider Reason for Visit Reason Onset Date Comments Foot Swelling 09/23/2019 Encounter Details Date Type Department Care Team Description 09/23/2019 Telephone Obstetrics and Gynecology [place] [address] Social History Tobacco Use Types Packs/Day Years Used Date Current Every Day Smoker Cigarettes 0.25 Smokeless Tobacco: Never Used Alcohol Use Standard Drinks/Week Comments No 0 (1 standard drink = 0.6 oz pure alcoho l) Not during Sex Assigned at Date Recorded Female 04/13/2020 8:26 AM EST documented as of this encounter Miscellaneous Notes Telephone Encounter - Aislinn Trevino RN - 09/23/2019 1:18 PM EDT Shirlene is 37 weeks and has lower extremity edema. She is trying to elevate her legs and applies ice periodically with no changes. It is hard to put on shoes. She denies LOF, bleeding or contractions. She endorses good movement. Shirlene has had a headache for 2 days and takes acetaminophen which she states does help decrease the headache. She does not have epigastric pain. Assessment: lower extremity edema is not uncommon at the end of . She endorses a headache that improves with acetaminophen, no other s/s of preeclampsia. Plan: will continue elevating her legs, Shirlene has an appointment tomorrow and will have Jennifer Wu CNM assess Further. Shirlene intends to keep tomorrow's appointment and will call back for s/s of labor or worsening symptoms. documented in this encounter Plan of Treatment Not on filedocumented as of this encounter Visit Diagnoses Not on filedocumented in this encounter Care Teams Instructor Modeling Relationship Specialty Start Date End Date Genet Holland PA PCP - General Family Medicine 02/06/19 05/15/[address] [place] [address] documented as of this encounter
--- OUTSIDE RECORDS SUMMARY | 2021-10-20 07:56 | XMS_ITS | Encounter Summary ---
:1985 Author Organization [facility] [place] [address] Care Team Providers Name Role Phone Genet Holland Primary Care Provider Encounter Details Date Type Department Care Team Description 10/02/2019 Telephone Obstetrics and Gynecology at Jennifer burnette CNM [facility] Celia gutierrez OBSTETRICS & [place] [address] [place] [address] [phone] (Wo rk) Social History Tobacco Use Types Packs/Day Years Used Date Current Every Day Smoker Cigarettes 0.25 Smokeless Tobacco: Never Used Alcohol Use Standard Drinks/Week Comments No 0 (1 standard drink = 0.6 oz pure alcoho l) Not during Sex Assigned at Date Recorded Female 04/13/2020 8:26 AM EST documented as of this encounter Miscellaneous Notes Telephone Encounter - Jennifer Wu CNM - 10/02/2019 5:06 PM EDT Spoke with patient, answered questions about planned IOL tonight. documented in this encounter Plan of Treatment Not on filedocumented as of this encounter Visit Diagnoses Not on filedocumented in this encounter Care Teams Ehs Manager Relationship Specialty Start Date End Date Genet Holland PA PCP - General Family Medicine 02/06/19 05/15/[address] [place] [phone] documented as of this encounter
--- OUTSIDE RECORDS SUMMARY | 2021-10-20 07:56 | XMS_ITS | Encounter Summary ---
:1985 Author Organization [facility] [place] [address] Care Team Providers Name Role Phone Genet Holland Primary Care Provider Encounter Details Date Type Department Care Team Description 08/04/2019 TH Visit Cardiology at [facility] Khai Valentin MD Palpitations (TeleHealth) [facility] [place] [address] CARDIOLOGY DEPT [phone] [place] [address] (Wo rk) Social History Tobacco Use Types Packs/Day Years Used Date Current Every Day Smoker Cigarettes 0.25 Smokeless Tobacco: Never Used Alcohol Use Standard Drinks/Week Comments No 0 (1 standard drink = 0.6 oz pure alcoho l) Not during Sex Assigned at Date Recorded Female 04/13/2020 8:26 AM EST documented as of this encounter Progress Notes Khai Valentin MD - 08/04/2019 2:00 PM EDT HPI: Shirlene Kovacs is a 34 y.o. year old who is 14 weeks . She has been noticing more palpitations and these are associated with shortness of breath. Made better with lying down. She has a historyof hodgkin's disease and endocarditis (2011). Not using any drugs now. She has not had a echo on herself. Echo in 2018 was normal. She is in the hospital. She has a pneumonia. PMHX Patient Active Problem List Diagnosis Code [...] ??? Nausea and vomiting during O21.9 ??? High risk , antepartum O09.90 ??? Palpitations R00.2 ??? Anxiety F41.9 ??? Acute bronchitis due to 2019 novel coronavirus (COVID-19)-suspected, not tested U07.1, J20.8 ??? Constipation K59.00 ??? Maternal varicella, non-immune O09.899, Z28.3 ??? Carpal tunnel syndrome, bilateral G56.03 ??? Pneumonia complicating O99.519, J18.9 ??? Bacterial vaginosis in O23.599, B96.89 MEDS: Current Outpatient Medications on File Prior to Visit Medication Sig Dispense Refill ??? albuteroL 90 mcg/actuation HFA Aerosol Inhaler Inhale 2 puffs into the lungs every 4 hours as needed for Wheezing. Use with spacer 1 Inhaler 3 ??? azithromycin (Zithromax) 250 mg Tablet Take 1 tablet by mouth daily. 1 tablet 0 ??? cefpodoxime (Vantin) 200 mg Tablet Take 1 tablet by mouth 2 times daily. 3 tablet 0 ??? metroNIDAZOLE (Flagyl) 500 mg Tablet Take 1 tablet by mouth 2 times daily for 4 days. 8 tablet 0 ??? buprenorphine-naloxone (SUBOXONE) 8-[address] 16 mg of opiate under the tongue daily. 56 each 0 ??? FLUoxetine (PROzac) 20 mg Tablet Take 2 tablets by mouth daily. 60 tablet 3 ??? labetaloL (Normodyne) 100 mg Tablet Take 1 tablet by mouth 2 times daily. 60 tablet 0 ??? promethazine (Phenergan) 25 mg [...] on file Occupational History ??? Occupation: unemployed Social Needs ??? Financial resource strain: Not on file ??? Food insecurity Worry: Not on file Inability: Not on file ??? Transportation needs Medical: Not on file Non-medical: Not on file Tobacco Use ??? Smoking status: Current Every Day Smoker Packs/day: 0.25 Types: Cigarettes ??? Smokeless tobacco: Never Used Substance and Sexual Activity ??? Alcohol use: No Comment: Not during ??? Drug use: Yes Types: Cocaine, Injected Drugs, Narcotics, Opioids Comment: In the past ??? Sexual activity: Yes Partners: Female, Male Lifestyle ??? Physical activity Days per week: Not on file Minutes per session: Not on file ??? Stress: Not on file Relationships ??? Social connections Talks on phone: Not on file Gets together: Not on file Attends yazidi service: Not on file Active member of club or organization: Not on file Attends meetings of clubs or organizations: Not on file Relationship status: Not on file ??? Intimate partner violence Fear of current or ex partner: Not on file Emotionally abused: Not on file Physically abused: Not on file Forced sexual activity: Not on file Other Topics Concern ??? Service No ??? [...] and IV drug abuse at this time. FAMHX Family History Problem Relation Age of Onset ??? Cancer Other Hodgkin lymphoma in maternal cousin ??? Alcohol Use Disorder Father ROS Negative for blood in stool or urine. No fevers or chills. No recent syncope. Otherwise all other systems were reviewed and found to be negative. Physical Examination There were no vitals filed for this visit. Telephone visit secondary to viral pandemic LABS: Labs reviewed by myself No results found for this or any previous visit (from the past 24 hour(s)). Assessement and Plan: 33 year old female who is with really increased palpitations. She is 4 months . Better now that she is on labetolol. 1. Continue labetalol for recurrent palpitations. She has no symptoms of heart failure. 2. She is in the hospital now with a pneumonia. Will schedule follow up post discharge. documented in this encounter Plan of Treatment Not on filedocumented as of this encounter Visit Diagnoses Diagnosis Palpitations documented in this encounter Care Teams Vice President Of Advertising Relationship Specialty Start Date End Date Genet Holland PA PCP - General Family Medicine 02/06/19 05/15/[address] [place] [phone] documented as of this encounter
--- OUTSIDE RECORDS SUMMARY | 2021-10-20 07:56 | XMS_ITS | Encounter Summary ---
:1985 Author Organization [facility] [place] [address] Care Team Providers Name Role Phone Genet Holland Primary Care Provider Encounter Details Date Type Department Care Team Description 10/07/2019 Encounter Social History Tobacco Use Types Packs/Day Years Used Date Current Every Day Smoker Cigarettes 0.25 Smokeless Tobacco: Never Used Alcohol Use Standard Drinks/Week Comments No 0 (1 standard drink = 0.6 oz pure alcoho l) Not during Sex Assigned at Date Recorded Female 04/13/2020 8:26 AM EST documented as of this encounter Miscellaneous Notes Note - Rosaura Adames RN - 10/07/2019 7:03 PM EDT This note was copied from a baby's chart. ASSESSMENT INPATIENT Encounter Date/Time: 10/07/2019 / 11:00, 17:30 Baby's name: Baby Girl Fermín : 10/04/2018 Time of : 7:45 PM Mode of Delivery: Vaginal, Spontaneous Gestational Age: Gestational Age: 38w6d Baby age: 3 days Birthweight: 7 lb 1.6 oz (3220 g) Weights since : Patient Vitals for the past 168 hrs: Weight 10/07/19 0248 2.96 kg (6 lb 8.4 oz) 10/06/19 0240 3 kg (6 lb 9.8 oz) 10/04/19 1945 3.22 kg (7 lb 1.6 oz) Overall weight loss: -8% MATERNAL INFO: Shirlene Piter Kovacs [id number] 1985 G 4 P 2 Significant History: Previous experience: Yes--BF her previous baby for over a year, she is now [age] years old. Breast Surgery: No Does have a well healed scar over upper inner left breast where her central line placement was for her Hodgkin lymphoma treatment. Reports she had a great milk supply with her first baby despite havingradiation therapy to her chest during her bellamy with Hodgkin lymphoma. Breast Changes During : Yes Breast Exam : Size: Medium Shape: Rounded Venous Pattern: Within Normal Limits Milk Production: Colostral Phase Normal able to express about four milliliters when pumping today. Has pumped about three times today so far. Shirlene does feel as though her breasts are changing and thinks her milk may be coming in. Nipple Exam : Normal Short-shafted Able to chandni Color: Hargill Compressible: Yes Trauma: None Nipple Care Management: Work to achieve an asymmetric latch with baby taking in more areolar tissue. Shirlene is aware she will need to pump and discard her breast milk if she develops nipple trauma withactive bleeding to protect her baby from hepatitis C. OBSERVATION: Offered to observe breast feeding session. Mom was to call out around a session for support. Did notdo so at feedings today. Shirlene reports that she has been able to latch Kailani without the nipple shield at some attempts today. INFANT ASSESSMENT: Mom offering supplemental bottle at 17:30 session. Baby jittery, bottle fed well, discussed level bottle position to help slow down feeding so Isaiasilani could better manage milk flow. Baby does have increased tone and jitteriness when unswaddled but settles well when swaddled and offered skin to skin. Oral Motor Examination/Function: No latch observed today-brief visual observation when mom bottle feeding baby. Mouth: Normal Jaw: Normal Lips: Normal Gums: Normal Tongue: Normal resting position Coordination of Suck: Smooth/rhythmic on bottle Rooting: Normal Swallow: Normal/Coordination PATIENT EDUCATION AND RECOMMENDATIONS: Benefits of frequent maternal- Skin to Skin (STS) contact Offer breast feeding at early feeding cues every 2 - 3 hours, awaken as needed Optimal positioning: Lecd-fj-dgzdbo positioning Vhph-bc-ycioa technique Nutritive vs non-nutritive sucking Importance of consistently breaking suction, if does not self-detach or if latch is pinching or painful to remove and re-latch baby more deeply. Breast massage and manual expression techniques-Shirlene is comfortable with this. Breast massage during , alternated with breast compression during pauses Alternative stimulation techniques/waking techniques/consoling techniques Principles of baby-led feedings/finish first breast first/attempt to BF on both sides at each feed (assess interest/satiety cues) Strategies to manage physiological engorgement Written contact information for [facility] Services prn Pamphlets Provided Feeding Log [facility] Services Card The Benefits of Purv-jx-Qaer Contact and an Early Start to Positions and Tips for Successful Breast massage and hand expression CDC recommendations for breast pump part cleaning and sterilization Breast engorgement ILCA Handouts: Milk Expression and Pumping : Learning the Dance of Latching On-going Concerns: Maternal history of hodgkin lymphoma, in remission for years Maternal history of ROLAND, in suboxone program, at risk for NORAH, ESC protocol Maternal history of bi-polar disorder, anxiety taking prozac Maternal history of hypothyroidism on synthroid Maternal history of hepatitis C Inadequate infant latch Delayed adequate feeding at breast, requiring supplementation Weight loss greater than 8% Monitor infant growth and nutrition closely Discharge Planning: -Follow-up with 's PCP after discharge, mom reports they will see Dr. Rico after discharge,purple pod. She is interested in seeing at her follow up embossing press operator apprentice visits, will need toschedule visit once we know the PCP visit date and time. -VNA follow-up PRN -[facility] Services post-discharge, Mother will call if she desires further assistance-purple pod patient, team will need to book follow up visit after initial PCP visit. -Local IBCLC support after discharge home, prn, Mom is from [facility] -Feeding Plan: -Attempt at least every 2-3 hours -Limit attempts to 10-15 minutes duration when is demonstrating fatigue/frustration or if cannot sustain latch, may use nipple shield and SNS to support latch if desired -Pump 8 times per 24 hours after feeding attempts and record in pumping log. -Pump both breasts at the same time for about 15-20 minutes per session using a hospital grade Tinypass Symphony breast pump. -Supplement per preferred feeding method at least 20-30 milliliters every 2-3 hours, baby should be offered enough supplement to appear sleepy and satisfied. An Acelleron personal breast pump has been ordered for Shirlene, it has not arrived at her address thus far. Shirlene would benefit from a hospital grade Medela symphony breast pump to help her establish a full milk supply as her baby is having difficulty effectively latching on and breast feeding due to NORAH symptoms, she is down over 8% below her weigh and requiring supplementation. risk compliance manager Genet Zain notified of need and has reached out to check on cony pump funding per the [facility]. -Keep a Feeding Log the first few weeks: record times/duration, pumping volumes, any supplement given, and stools/wet diapers; this journal can be helpful to review with the care provider, VNA or oracle application consultant. -Report difficulty waking, poor nursing and/or irritability to your provider 30 minutes were spent with this family, providing assessment, assistance, education, and support. Mother voices understanding of education and recommendations. Rosaura Adames RN , IBCLC [facility] Services documented in this encounter Plan of Treatment Not on filedocumented as of this encounter Visit Diagnoses Not on filedocumented in this encounter Care Teams Market Research Assistant Relationship Specialty Start Date End Date Genet Holland PA PCP - General Family Medicine 02/06/19 05/15/20 [address] [place] [address] documented as of this encounter
--- OUTSIDE RECORDS SUMMARY | 2021-10-20 07:56 | XMS_ITS | Encounter Summary ---
:1985 Author Organization [facility] [place] [address] Care Team Providers Name Role Phone Genet Holland Primary Care Provider Encounter Details Date Type Department Care Team Description 09/16/2019 Routine Obstetrics and Marcie Baron MD [place]: 36w2d Gynecology at [facility] Celia gutierrez OBSTETRICS & [place] [address] GYNECOLOGY [phone] [place] [phone] (Wo rk) Social History Tobacco Use Types [...] Sign Reading Time Taken Comments Blood Pressure 114/68 09/16/2019 8:00 AM EDT Pulse - - Temperature - - Respiratory Rate - - Oxygen Saturation - - Inhaled Oxygen Concentration - - Weight 96.6 kg (213 lb) 09/16/2019 8:00 AM EDT Height - - Body Mass Index 31.45 08/06/2019 4:12 PM EDT documented in this encounter Progress Notes Karma Cash LPN - 09/16/2019 8:00 AM EDT Given 36 week info Marcie Baron MD - 09/16/2019 8:00 AM EDT Complains of painful dependent edema. Sleep disturbance She denies bleeding, leaking of fluid, pain or regular contractions. She notes good movement. Received Tdap at [facility] 09/02/19 FH 37 FHR 120's Cephalic GBS done RTC 1 week 2 week with US ERB documented in this encounter Plan of Treatment Not on filedocumented as of this encounter Procedures Procedure Name Priority Date/Time Associated Comments Diagnosis GROUP B STREPTOCOCCUS Routine 09/16/2019 8:00 AM Results for this SCREEN EDT procedure are i n the results section. HC GROUP B STREP Routine 09/16/2019 8:00 AM Supervision of hig h Results for this SCREEN EDT risk in procedure are in third trimester the results section. POCT URINE DIPSTICK Routine 09/16/2019 Supervision of high R esults for this risk in procedure are in third trimester the results section. documented in this encounter Results US OB Follow Up (09/30/2019 9:12 AM EDT) Anatomical Region Laterality Modality Pelvis, Abdomen Ultrasound Specimen (Source) Anatomical Collection Method Collection Time Re ceived Time Location / / Volume Laterality 09/30/2019 8:43 AM EDT Impressions 09/30/2019 10:18 AM EDT 3rd Trimester Summary Single intrauterine with a ge stational age of 38w 2d based on U/S C R L ??(03/05/19) Composite age based on the current ultr asound alone is 38w 5d. Estimated weight corresponds to t he 81th percentile for 38w 2d. Current growth parameters are consisten t with prior dating indicating normal growth. Amniotic fluid volume is Normal Anatomical survey is limited due to the late gestational age. ? Destiny Reno, Staff Phys pepe Electronically Signed Final Report ?? 10:17 am Narrative 09/30/2019 10:18 AM EDT OBSTETRICS REPORT ? (Signed Final 09/30/2019 10:17 am) PATIENT INFO: ID #: ? [id number] ?: ??[birth year] (34 yrs)(F) Name: ? SHIRLENE KOVACS ?Visit Date: 09/30/2019 08:43 am PERFORMED BY: Performed By: ? Rose Peña RDMS Attending: ?Destiny Reno MD Referred By: ?MARCIE BARON Location: ? [place] SERVICE(S) PROVIDED: ??UOBFOL - Efw - Growth ??- [place] - [id number] ?[id number] INDICATIONS: ??38 weeks gestation of ?Z3A.38 ??hydramnios VITAL SIGNS: Weight (lb): 213.0 Height: ?5'9 ?BMI: ?31.45 EVALUATION: Num Of Fetuses: ?1 Heart Rate(bpm): ?? 133 Cardiac Activity: ?Observed, normal rhythm Presentation: ?Cephalic Placenta: ?Bookkeeping Assistant ior P. Cord Insertion: ? Not well se en Amniotic Fluid CHRISTIE FV: ?Normal CHRISTIE Sum(cm) ? Lar gest Pocket(cm) 17.95 ? 5.45 RUQ(cm) ? RLQ(cm) ? LUQ(c m) ?LLQ(cm) 5.5 ? 4.9 ? 4 .2 ?3.3 --------- BIOMETRY: --------- BPD: ?94.8 ??mm ? G.Age: ?? 38w 4d ?82 ??% OFD: ? 118.4 ??mm HC: ?340.1 ??mm ? G.Age: ?? 39w 1d ?53 ??% AC: ?353.3 ??mm ? G.Age: ?? 39w 2d ?88 ??% FL: ? 73.7 ??mm ? G.Age: ?? 37w 5d ?40 ??% HUM: ?60.9 ??mm ? G.Age: ?? 35w 2d ?20 ??% CER: ?47.0 ??mm ? G.Age: ?? N/A ? 73 ??% LV: ?5.5 ??mm CM: ?9.3 ??mm CI: ?80.1 ??% ? 70 - 86 FL/HC: ? 21.7 ??% ? 20.9 - 22.7 HC/AC: ? 0.96 ?0.92 - 1.05 FL/BPD: ?77.7 ??% ? 71 - 87 FL/AC: ? 20.9 ??% ? - Est. FW: ?3605 ?? gm ?? 7 lb 15 oz ? 81 ??% OB HISTORY: Blood Type: ?A+ : ?4 ? Term: ?? 1 ? SAB: ?? 2 Living: ? 1 GESTATIONAL AGE: U/S Today: ? 38w 5d ?ASHLIE: ?? 10/09/19 Best: ?38w 2d ?? Det. By: ??U/S C R L ?ASHLIE: ?? 10/12/19 ? (03/05/19) -------- ANATOMY: -------- Cranium: ? Visualize d Cavum: ? Visualiz ed Ventricles: ?Visualized Choroid Plexus: ?Visualized Cerebellum: ?Visualized Posterior Fossa: ? Visualized Nuchal Fold: ? Not evaluat ed at this gestational age Face: ?Limited views Heart: ? 4-chambe r view appears normal RVOT: ?Visuali zed LVOT: ?Not Vis ualized Diaphragm: ? Visualized Stomach: ? Visualize d Abdomen: ? Within No rmal Limits Abdominal Wall: ?Not seen due to late gestational age Cord Vessels: ?3-vessels- WNL Kidneys: ? Visualize d Bladder: ? Visualize d Spine: ? Limited views Upper Extremities: ? Limited views Lower Extremities: ? Limited views CERVIX UTERUS ADNEXA: Left Ovary Not visualized Right Ovary Not visualized Procedure Note Sherly Reno MD - 09/30/2019For matting of this note might be different from the original. OBSTETRICS REPORT (Signed Final 020 10:17 am) PATIENT INFO: ID #: [id number] : [birth year] (34 y rs)(F) Name: SHIRLENE KOVACS Visit Date: 09/29 08:43 am PERFORMED BY: Performed By: Rose Peña RDMS Attending: Destiny Reno MD Referred By: MARCIE BARON Location: [place] SERVICE(S) PROVIDED: UOBFOL - Efw - Growth - [place] - [id number] INDICATIONS: 38 weeks gestation of Z3A.38 hydramnios VITAL SIGNS: Weight (lb): 213.0 Height: 5'9 BMI: 31.45 EVALUATION: Num Of Fetuses: 1 Heart Rate(bpm): 133 Cardiac Activity: Observed, normal rhyt hm Presentation: Cephalic Placenta: Posterior P. Cord Insertion: Not well seen Amniotic Fluid CHRISTIE FV: Normal CHRISTIE Sum(cm) Largest Pocket(cm) 17.95 5.45 RUQ(cm) RLQ(cm) LUQ(cm) LLQ(cm) 5.5 4.9 4.2 3.3 --------- BIOMETRY: --------- BPD: 94.8 mm G.Age: 38w 4d 82 % OFD: 118.4 mm HC: 340.1 mm G.Age: 39w 1d 53 % AC: 353.3 mm G.Age: 39w 2d 88 % FL: 73.7 mm G.Age: 37w 5d 40 % HUM: 60.9 mm G.Age: 35w 2d 20 % CER: 47.0 mm G.Age: N/A 73 % LV: 5.5 mm CM: 9.3 mm CI: 80.1 % 70 - 86 FL/HC: 21.7 % 20.9 - 22.7 HC/AC: 0.96 0.92 - 1.05 FL/BPD: 77.7 % 71 - 87 FL/AC: 20.9 % 20 - 24 Est. FW: 3605 gm 7 lb 15 oz 81 % OB HISTORY: Blood Type: A+ : 4 Term: 1 SAB: 2 Livin GESTATIONAL AGE: U/S Today: 38w 5d ASHLIE: 10/09/19 Best: 38w 2d Det. By: [employer] R L ASHLIE: (03/05/19) -------- ANATOMY: -------- Cranium: Visualized Cavum: Visualized Ventricles: Visualized Choroid Plexus: Visualized Cerebellum: Visualized Posterior Fossa: Visualized Nuchal Fold: Not evaluated at this gest ational age Face: Limited views Heart: 4-chamber view appears normal RVOT: Visualized LVOT: Not Visualized Diaphragm: Visualized Stomach: Visualized Abdomen: Within Normal Limits Abdominal Wall: Not seen due to late ge stational age Cord Vessels: 3-vessels- WNL Kidneys: Visualized Bladder: Visualized Spine: Limited views Upper Extremities: Limited views Lower Extremities: Limited views CERVIX UTERUS ADNEXA: Left Ovary Not visualized Right Ovary Not visualized IMPRESSION 3rd Trimester Summary Single intrauterine with a ge stational age of 38w 2d based on U/VividCortex C R L (03/05/19) Composite age based on the current ultr asound alone is 38w 5d. Estimated weight corresponds to t he 81th percentile for 38w 2d. Current growth parameters are consisten t with prior dating indicating normal growth. Amniotic fluid volume is Normal Anatomical survey is limited due to the late gestational age. E. R. Pschirrer, Staff Physician Electronically Signed Final Report 09/29 10:17 am Marcie Baron MD [facility] OB ORDERABLES Group B Streptococcus Screen (09/16/2019 8:00 AM EDT) athologist Signature Group B Strep Neg COLEEN LASHMEET Screen [facility] Specimen (Source) Anatomical Collection Method Collection Time Re ceived Time Location / / Volume Laterality Pooled specimen 09/16/2019 8:00 0 5:24 from vaginal AM EDT PM EDT introitus and rectal swab (specimen) Comment: Penicillin Allergy?->No Resulting Agency Comment Spec In Lab Marcie Baron MD MICROBIOLOGY - GENERAL ORDER MICHEL Performing Organization Address City/[facility]/[place] [address] Group B Strep Culture Screen (09/16/2019 8:00 AM EDT) Component Value Ref Test Analysis Performed At [facility] gist Range Method Time Signature Group B No Group B COLEEN Streptococcus Streptococci LASHMEET Culture isolated [facility] Specimen (Source) Anatomical Collection Method Collection Time Re ceived Time Location / / Volume Laterality Pooled specimen 09/16/2019 8:00 0 5:24 from vaginal AM EDT PM EDT introitus and rectal swab (specimen) Comment: PENICILLIN ALLERGY?->NO Resulting Agency Comment Spec In Lab Marcie Baron MD MICROBIOLOGY - GENERAL ORDER MICHEL Performing Organization Address City/State/[place] [address] POCT urine dipstick (09/16/2019) athologist Signature POC Protein, neg Negative - UA Negative mg/dL POC Glucose, neg Normal - UA Normal mg/dL Marcie Baron MD POINT OF CARE TEST ORDERABLE S documented in this encounter Visit Diagnoses Diagnosis Supervision of high risk in th ird trimester Unspecified high-risk Polyhydramnios affecting in th ird trimester Polyhydramnios affecting in th ird trimester documented in this encounter Care Teams Application Developer Relationship Specialty Start Date End Date Genet Holland PA PCP - General Family Medicine 02/06/19 05/15/20 [address] [place] [address] documented as of this encounter
--- OUTSIDE RECORDS SUMMARY | 2021-10-20 07:56 | XMS_ITS | Encounter Summary ---
:1985 Author Organization [facility] [place] [address] Care Team Providers Name Role Phone Genet Holland Primary Care Provider Encounter Details Date Type Department Care Team Description 08/04/2019 Telephone Obstetrics and Gynecology at Jennifer burnette CNM [facility] Celia gutierrez OBSTETRICS & [place] [address] [place] [id number] [phone] (Wo rk) Social History Tobacco Use Types Packs/Day Years Used Date Current Every Day Smoker Cigarettes 0.25 Smokeless Tobacco: Never Used Alcohol Use Standard Drinks/Week Comments No 0 (1 standard drink = 0.6 oz pure alcoho l) Not during Sex Assigned at Date Recorded Female 04/13/2020 8:26 AM EST documented as of this encounter Miscellaneous Notes Telephone Encounter - Jennifer Wu CNM - 08/04/2019 5:16 PM EDT Call to Shirlene today in follow up as she did not keep scheduled M appt. She went to [facility] instead. Had follow up CXR and EKG there, sent home on oral steroids. She gives verbal consent for us to obtain records. documented in this encounter Plan of Treatment Not on filedocumented as of this encounter Visit Diagnoses Not on filedocumented in this encounter Care Teams Gaming Surveillance Observer Relationship Specialty Start Date End Date Genet Holland PA PCP - General Family Medicine 02/06/19 05/15/20 [address] [place] [address] documented as of this encounter
--- OUTSIDE RECORDS SUMMARY | 2021-10-20 07:56 | XMS_ITS | Encounter Summary ---
:1985 Author Organization [facility] [place] [address] Care Team Providers Name Role Phone Genet Holland Primary Care Provider Encounter Details Date Type Department Care Team Description 08/31/2019 Telephone Obstetrics and Gynecology at Namita Chew MD [facility] Celia gutierrez OBSTETRICS & [place] [address] [place] [address] [phone] (Wo rk) Social History Tobacco Use Types Packs/Day Years Used Date Current Every Day Smoker Cigarettes 0.25 Smokeless Tobacco: Never Used Alcohol Use Standard Drinks/Week Comments No 0 (1 standard drink = 0.6 oz pure alcoho l) Not during Sex Assigned at Date Recorded Female 04/13/2020 8:26 AM EST documented as of this encounter Miscellaneous Notes Telephone Encounter - Namita Hurtado MD - 08/31/2019 9:13 AM EDT Returned call from Shirlene. She is at 34w0d. She is having ctx q 10 min for the last 30 min to 1 hr, accompanied by nausea and vomiting. She is able to maintain fluid hydration. Denies fevers, bleeding,LOF. + FM. Will call her OB closer to home at [place], though her delivery plan is to delivery [facility]. Advisedher to call back after discussing with her OB to make a plan. Namita Hurtado MD documented in this encounter Plan of Treatment Not on filedocumented as of this encounter Visit Diagnoses Not on filedocumented in this encounter Care Teams Etcher Apprentice Photoengraving Relationship Specialty Start Date End Date Genet Holland PA PCP - General Family Medicine 02/06/19 05/15/20 [address] [place] [address] documented as of this encounter
--- OUTSIDE RECORDS SUMMARY | 2021-10-20 07:56 | XMS_ITS | Encounter Summary ---
:1985 Author Organization [facility] [place] [address] Care Team Providers Name Role Phone Genet Holland Primary Care Provider Encounter Details Date Type Department Care Team Description 09/28/2019 Telephone Obstetrics and Gynecology Betty Reed DO at [facility] Celia gutierrez OBSTETRICS & [place] [address] [place] [address] [phone] (Wo rk) Social History Tobacco Use Types Packs/Day Years Used Date Current Every Day Smoker Cigarettes 0.25 Smokeless Tobacco: Never Used Alcohol Use Standard Drinks/Week Comments No 0 (1 standard drink = 0.6 oz pure alcoho l) Not during Sex Assigned at Date Recorded Female 04/13/2020 8:26 AM EST documented as of this encounter Miscellaneous Notes Telephone Encounter - Betty Reed DO - 09/28/2019 5:11 PM EDT [facility] OBGYN Telephone Note Shirlene calls the on-call provider carlos with concern of decreased movement. States she had not felt the baby move all day, however, while she was waiting for me to call back she felt a movement. She does endorse some irregular infrequent contractions, ~[id number] but denies leakage of fluid or vaginal bleeding. Precautions reviewed in detail, kick counts reviewed. Patient voiced understanding, all questions answered. Betty Reed DO PGY4 Obstetrics & Gynecology 09/28/2019 documented in this encounter Plan of Treatment Not on filedocumented as of this encounter Visit Diagnoses Not on filedocumented in this encounter Care Teams Plate Mounter Relationship Specialty Start Date End Date Genet Holland PA PCP - General Family Medicine 02/06/19 05/15/20 [address] [place] [address] documented as of this encounter
--- OUTSIDE RECORDS SUMMARY | 2021-10-20 07:56 | XMS_ITS | Encounter Summary ---
:1985 Author Organization [facility] [place] [address] Care Team Providers Name Role Phone Genet Holland Primary Care Provider Encounter Details Date Type Department Care Team Description 09/21/2019 Hospital Encounter Birthing Marcie Salas MD [facility] [address] OBSTETRICS & [place] [address] [facility] Luis Welch MD [facility] [place]STET[place] [address] [place] [address] Social History Tobacco Use Types Packs/Day [...] Sign Reading Time Taken Comments Blood Pressure 98/63 09/21/2019 9:35 PM EDT Pulse 89 09/21/2019 9:35 PM EDT Temperature 36.5 ??C (97.7 ??F) 09/21/2019 9:35 PM EDT Respiratory Rate 18 09/21/2019 9:35 PM EDT Oxygen Saturation - - Inhaled Oxygen Concentration - - Weight - - Height - - Body Mass Index - - documented in this encounter Discharge Instructions Discharge InstructionsSheba Mercedes RN - 09/21/2019 10:00 [place] [address] [facility] Shirlene J Fermín 09/21/19 10:00 PM Following your visit to [facility] Triage Call your doctor or tie hacker for: ??? Seizure (call 911) ??? Chest pain ??? Shortness of breath ??? Headache which isn't relieved with Tylenol ??? Headache with visual changes ??? Abdominal pain ??? Swelling to hands and face ??? A temperature at or above 100.4F ??? Nausea or vomiting Gestation - under 37 weeks ??? Call your doctor or tie hacker if: o You experience any menstrual like cramping more than 6 an hour that does not go away with rest andfluids. o You are leaking fluid - may be a small leak - may be a large gush - note the time fluid started leaking, amount, and color (clear, yellow, green, pink, red) o You notice vaginal bleeding - spotting is normal following a vaginal exam in your doctor's or tie hacker's office - you should not bleed as much as a period o You have noticed a marked decrease in your baby's movement ??? refer to your kick count instructions in the Your and Childbirth Month to Month (6th edition) - Your baby should move at least 10 times in 2 hours o You have had any direct trauma to your abdomen such as a car accident, fall, or impact Term Gestation - over 37 weeks ??? Call your doctor or tie hacker if: o You are having painful contractions/abdominal cramps less than 5 minutes apart for 1 hour - walking, resting, or any kind of activity does not make them less painful or go away o You are leaking fluid - may be a small leak - may be a large gush - note the time fluid started leaking, amount, and color (clear, yellow, green, pink, red) o You notice vaginal bleeding - spotting is normal following a vaginal exam in your doctor's or tie hacker's office - you should not bleed as much as a period o You have noticed a marked decrease in your baby's movement - refer to your kick count instructions in the Your and Childbirth Month to Month (6th edition) - your baby should move at least 10 times in 2 hours o You have had any direct trauma to your abdomen such as a car accident, fall, or impact General Instructions Drink plenty of non-caffeinated fluids throughout the day to prevent dehydration. Keep your regularly scheduled doctor or tie hacker appointment. Vaccination If you received the Measles, Mumps, and Rubella (MMR) vaccine, varicella vaccine, or Hepatitis A vaccine during your hospitalization make sure to discuss this with your OB provider or your PCP at yournext visit. You may need a second dose of the vaccine to receive effective vaccine protection. Your [facility] Provider can be reached during office hours at ??? Midwives ??? Obstetricians AFTER OFFICE HOURS: Call and ask for the smoking pipe coater or tie hacker floor installation mechanic documented in this encounter Medications at Time [...] take 1 tablet by 60 tablet 0 04/201910/06/2019 mg Tablet mouth 2 TIMES A DAY buprenorphine-naloxone Place 16 mg of 56 each 0 0 10/01/2019 (SUBOXONE) 8-2 mg Film opiate under the tongue daily. FLUoxetine (PROzac) 20 mg Take 3 tablets by 90 tablet 2 02/201910/01/2019 Tablet mouth daily. cefpodoxime (Vantin) 200 Take [...] documented as of this encounter Progress Notes Eddy Ponce MD - 09/21/2019 7:53 PM EDT OB Triage Note 09/21/2019 7:53 PM Shirlene Kovacs is a 34 y.o. female with an ASHLIE of 10/12/2019, by Ultrasound who is at 37w0d weeks gestation. She presents with complaints of intermittent vaginal pressure. Her has beencomplicated by the followin. History of Hodgkins Lymphoma- s/p chemotherapy in 2002 2. Hypothyroidism 3. Asthma 4. HCV positive 5. History of ROLAND on Suboxone 6. Bipolar/anxiety/PTSD 7. History of suicide attempt 8. Varicella non-immune 9. BV treated this - in first trimester. 10. Polyhydramnios/LGA on last US (08/28/19) - CHRISTIE 24.03 11. Palpitations - on labetalol 100mg BID Subjective: Shirlene states that she woke up [...] had 2 episodes of soft stools today and mild nausea. No vomiting or abdominal pain. [...] cervical exam done at her visit at [facility] on and told that her cervix was open. Movement: normal Contractions: none Leaking: None Bleeding: none now Preeclampsia signs and symptoms: headache Objective: Temp: [36.5 ??C (97.7 ??F)] Heart Rate: [86] Resp: -- BP: (132)/(79) SpO2: -- Heart Rate from SpO2: -- Physical Exam: Gen: AAO, well appearing. Intermittent appears uncomfortable with complaints of vaginal pain. Abdomen: gravid Cervix Exam: Dilation: Dilation: 1 Effacement: Effacement: 20 Station: Station: -2 BSUS: cephalic FHR Evaluation: Nonstress Test, Fetus A NST [...] Labs were obtained: Component Value Date/Time SPGRAVITYUA 1.019 08/06/20191828 PHUADIP 6.0 08/06/20191828 PROTEINUADIP Negative 08/06/20191828 GLUCOSEU Negative 08/06/2019 1829 KETONESUA Trace (A) 08/06/2019 1829 UROBILIUADIP 2.0 (A) 08/06/2019 1829 BLOODUADIP Trace (A) 08/06/2019 1829 NITRATEUA Negative 08/06/2019 1829 LEUKOESTERUA Negative 08/06/2019 1829 WBCUA 1 08/06/2019 1829 BILIRUBINUA Negative 08/06/2019 1829 G/C/trichomonas Assessment 34 y.o. female with an 10/12/2019, by Ultrasound who is at 37w0d weeks gestation being evaluated for vaginal pressure with contractions. Suspect vaginal pain is likely due to position low in the pelvis, however cannot rule out early labor at this time. ?? Heart Rate Assessment: Category 1 Plan: - Labor management: Questionable labor, re-evaluate in 3 hours. - Labs: UA, G/C/trichomonas Patient seen and discussed with Dr. Welch, attending OBGYN, with whom the plan was formed. Eddy Ponce MD PGY-1 09/21/19 Associated attestation - Luis Welch MD - 09/22/2019 2:46 AM EDT Please see revised note from same visit for full outcome and attestation MD Rebekah PORTER Moira A, MD - 09/21/2019 7:35 PM EDT 09/21/19 1934 Nonstress Test, Fetus A HR (Beats/Min) 130 HR Variability moderate (amplitude range 6 to 25 bpm) HR Accelerations present HR Decelerations none Contraction Frequency (Minutes) ? 1 on monitor Nonstress Test Interpretation Reactive, >32 weeks: two 15 bpm accelerations lasting 15 seconds Overall Impression Reassuring for gestational age NST Times NST Start Time 1848 NST Stop Time 1909 I personally reviewed the heart tracing. The NST is reactive and the tracing is reassuring. LUIS WELCH MD Ivory Aj DO - 08/06/2019 10:47 PM EDT 08/06/19 2246 Nonstress Test, Fetus A HR (Beats/Min) 145 HR Variability moderate (amplitude range 6 to 25 bpm) HR Accelerations present;lasting at least 15 seconds Contraction Frequency (Minutes) 0 Contractions in 10 Minutes 0 Nonstress Test Interpretation Reactive <32 week: two 10 bpm accelerations lasting 10 seconds Overall Impression Reassuring for gestational age NST Times NST Start Time 1722 NST Stop Time 1743 30week IUP with sob in ED s/p admission for pneumonia Reactive NST Ivory Aj DO 08/06/2019 documented in this encounter Plan of Treatment Not on filedocumented as of this encounter Procedures Procedure Name Priority Date/Time Associated Comments Diagnosis HC TRICHOMONAS GENE Routine 09/21/2019 7:58 PM Re sults for this AMPLIFICATION EDT procedure are in the results section. HC CHLAMYDIA GENE AMP Routine 09/21/2019 7:58 PM Results for this EDT procedure are i n the results section. HC GC GENE AMP Routine 09/21/2019 7:58 PM Results for this EDT procedure are i n the results section. URINALYSIS MICROSCOPIC Routine 09/21/2019 7:57 PM Results for this EXAM EDT procedure are i n the results section. URINALYSIS WITH REFLEX Routine 09/21/2019 7:57 PM Results for this CULTURE EDT procedure are i n the results section. documented in this encounter Results Trichomonas Gene Amp ([facility]/CGP/APD) Urine (09/21/2019 7:58 PM EDT) Analysis Performed At Patho logist Time Signature Trich Gene Amp Negative Negative [facility] Comment: The only FDA approved specimen types for this assay are cervix and vaginal. Trich Source Urine [facility] Specimen Anatomical Collection Method Collection Time Receive d Time (Source) Location / / Volume Laterality Urine specimen 09/21/2019 7:58 PM 020 9:25 (specimen) EDT PM EDT Resulting Agency Comment Spec In Lab Marcie Baron MD MICROBIOLOGY - GENERAL ORDER MICHEL Performing Organization Address City/State/ZIP Code Phon e Number [address] Chlamydia Gene Amp ([facility]/CGP/APD) Urine (09/21/2019 7:58 PM EDT) Analysis Performed At Patho logist Time Signature Chlamydia Gene Negative Negative [facility] Comment: The only FDA approved specimen types for this assay are cervical, vaginal, urethral and urine. Non-FDA approved rika rces are eye, throat and rectal and have been internally validated. Chlamydia Source Urine [facility] Specimen Anatomical Collection Method Collection Time Receive d Time (Source) Location / / Volume Laterality Urine specimen 09/21/2019 7:58 PM 020 9:25 (specimen) EDT PM EDT Resulting Agency Comment Spec In Lab Marcie Baron MD MICROBIOLOGY - GENERAL ORDER MICHEL Performing Organization Address City/[facility]/[place] [address] GC Gene Amp ([facility]/CGP/APD) Urine (09/21/2019 7:58 PM EDT) P athologist Signature GC Gene Amp Negative Negative [facility] Comment: The only FDA approved specimen types for this assay are cervical, vaginal, urethral and urine. Non-FDA approved rika rces are eye, throat and rectal and have been internally validated. GC Source Urine [facility] Specimen Anatomical Collection Method Collection Time Receive d Time (Source) Location / / Volume Laterality Urine specimen 09/21/2019 7:58 PM 020 9:25 (specimen) EDT PM EDT Resulting Agency Comment Spec In Lab Marcie Baron MD MICROBIOLOGY - GENERAL ORDER MICHEL Performing Organization Address City/[facility]/[place] [address] (ABNORMAL) Urinalysis Microscopic Exam (09/21/2019 7:57 PM EDT) Patholo gist Method Time Signature RBC UA 0 0 - 4 [facility] WBC UA 4 0 - 5 [facility] Bacteria UA Moderate (A) None /HPF [facility] Squam Epith >36 (H) <=4 /HPF [facility] Hyaline Cast 5 (H) 0 - 2 [facility] /LPF [facility] Specimen (Source) Anatomical Collection Method Collection Time Re ceived Time Location / / Volume Laterality Urine specimen 09/21/2019 7:57 09/21/2019 8:19 obtained by clean PM EDT PM EDT catch procedure (specimen) Resulting Agency Comment Spec In Lab Eddy Ponce MD URINE ORDERABLES Performing Organization Address City/State/[place] [address] (ABNORMAL) Urinalysis with reflex Culture (09/21/2019 7:57 PM EDT) [facility] gist Method Time Signature Glucose UA Negative Negative [facility] mg/dL [facility] Protein UA Negative Negative [facility] mg/dL [facility] Bilirubin UA Negative Negative [facility] mg/dL [facility] Comment: Clinical correlation required for positi ve Urine Bilirubin results as false positive may occur with some drugs and d rug related products. If a false positive is suspected a serum total bili lópez should be considered if clinically indicated. Urobilinogen UA Normal Normal mg/dL [facility] pH UA 6.5 5.0 - 8.0 [facility] Blood UA Negative Negative mg/dL [facility] Ketones UA Negative Negative mg/dL [facility] Nitrite UA Negative Negative [facility] Leukocytes UA Small (A) Negative [facility] Appearance UA Cloudy (A) Clear [facility] Spec [place] UA 1.023 1.006 - 1.030 [facility] Color UA Yellow Yellow [facility] Culture Reflexed No [facility] Specimen (Source) Anatomical Collection Method Collection Time Re ceived Time Location / / Volume Laterality Urine specimen 09/21/2019 7:57 09/21/2019 8:19 obtained by clean PM EDT PM EDT catch procedure (specimen) Resulting Agency Comment Spec In Lab Marcie Baron MD URINE ORDERABLES Performing Organization Address City/State/[facility] [place] [address] documented in this encounter Visit Diagnoses Not on filedocumented in this encounter Care Teams [employer] Department Supervisor Relationship Specialty Start Date End Date Genet Holland PA PCP - General Family Medicine 02/06/19 05/15/[address] [place] [phone] documented as of this encounter
--- OUTSIDE RECORDS SUMMARY | 2021-10-20 07:56 | XMS_ITS | Encounter Summary ---
:1985 Author Organization [facility] [place] [address] Care Team Providers Name Role Phone Genet Holland Primary Care Provider Encounter Details Date Type Department Care Team Description 08/13/2019 Clinical Support Obstetrics and No-show f or Gynecology at [facility] [place] [phone] Social History Tobacco Use Types Packs/Day Years Used Date Current Every Day Smoker Cigarettes 0.25 Smokeless Tobacco: Never Used Alcohol Use Standard Drinks/Week Comments No 0 (1 standard drink = 0.6 oz pure alcoho l) Not during Sex Assigned at Date Recorded Female 04/13/2020 8:26 AM EST documented as of this encounter Progress Notes Estephanie Duncan RN - 08/13/2019 2:30 PM EDT No Show for appointment. Estephanie Duncan MPH, RN, IBCLC [facility] Services documented in this encounter Plan of Treatment Not on filedocumented as of this encounter Visit Diagnoses Diagnosis No-show for appointment documented in this encounter Care Teams Gasket Supervisor Relationship Specialty Start Date End Date Genet Holland PA PCP - General Family Medicine 02/06/19 05/15/[address] [place] [id number] documented as of this encounter
--- OUTSIDE RECORDS SUMMARY | 2021-10-20 07:56 | XMS_ITS | Encounter Summary ---
:1985 [place] [address] Care Team Providers Name Role Phone Genet Holland Primary Care Provider Reason for Visit Reason Comments Shortness of Breath Encounter Details Date Type Department Care Team Description 08/06/2019 Emergency Emergency Department Cristiane Ryan MD [facility] [place] [address] [place] [address] [phone] (Wo rk) Social History Tobacco Use Types [...] Sign Reading Time Taken Comments Blood Pressure 110/62 08/06/2019 6:30 PM EDT Pulse 75 08/06/2019 6:00 PM EDT Temperature 37 ??C (98.6 ??F) 08/06/2019 4:12 PM EDT Respiratory Rate 20 08/06/2019 4:12 PM EDT Oxygen Saturation 95% 08/06/2019 6:30 PM EDT Inhaled Oxygen Concentration - - Weight 88.5 kg (195 lb) 08/06/2019 4:12 PM EDT Height 175.3 cm (5' 9) 08/06/2019 4:12 PM EDT Body Mass Index 28.8 08/06/2019 4:12 PM EDT documented in this encounter Discharge Instructions Discharge InstructionsNoFrancis suarez MD - 08/06/2019 6:22 PM EDT You were seen for a cough and shortness of breath. Your evaluation in the emergency department showed no large changes from your symptoms that you had at your discharge a couple of days ago. Please continue the prednisone as prescribed by [facility]. Please follow-up with your primary care doctor and [facility] in the next couple of days. If your symptoms worsen, you develop fevers, chills, worsening shortness of breath, please do not hesitate to come back to the emergency department. documented in this encounter Medications at Time [...] mg Film opiate under the tongue daily. metroNIDAZOLE (Flagyl) Take 1 tablet by 8 tablet 0 020 08/07/2019 500 mg Tablet mouth 2 times daily for 4 days. azithromycin (Zithromax) Take 1 tablet by 1 tablet 0 08/0309/16/2019 250 mg Tablet mouth daily. cefpodoxime (Vantin) 200 Take 1 tablet by 3 tablet 0 08/0210/06/2019 mg Tablet mouth 2 times daily. labetaloL (Normodyne) 100 Take 1 tablet by 60 tablet 0 0 04/201908/12/2019 mg Tablet mouth 2 times daily. promethazine [...] documented as of this encounter Progress Notes Yas Gutierrez RN - 08/06/2019 5:55 PM EDT Pt on NST, explained to pt. Denies VB, LOF, contractions. Endorses + FM. Strip given to MDs to review. documented in this encounter ED Notes Francis Galvin MD - 08/06/2019 5:29 PM EDT Shirlene Kovacs is an 34 y.o. female who presents to the ED with: Chief Complaint Patient presents with ??? Shortness of Breath I saw this patient 08/06/2019 at ~ 11:03 PM HPI Shirlene Kovacs is a 34 y.o. female who is 30 weeks with a PMH significant for hepatitis C, h/o opioid use disorder, who presents to the Emergency Department with ongoing shortness of breath after an inpatient stay for community-acquired pneumonia. She was discharged from the hospital 3 days ago. She felt well, afebrile. Her productive cough has persisted and she feels like she is not getting better as fast as she wished. She has been afebrile. She reports a productive cough of yellow sputum. She denies any nausea, vomiting, chest pain, abdominal pain, change in bowel habits, urinary symptoms, vaginal bleeding or discharge. Her baby is moving. The reason she presents emergency department today is because she feels anxious that she is not completely better yet. She currently smokes acouple of cigarettes a day, though has not smoked any cigarettes for 1 week due to her cough. She travis prior IV drug user. Review of Systems: A 10 point review of systems was performed and was negative except as noted in HPI Patient Vitals for the past 8 hrs: BP Temp Temp src Pulse Resp SpO2 Height Weight 08/06/19 1830 110/62 -- -- -- -- 95 % -- -- 08/06/19 1800 112/64 -- -- 75 -- 96 % -- -- 08/06/19 1612 111/52 37 ??C (98.6 ??F) Oral 88 20 98 % 175.3 cm (5' 9) 88.5 kg (195 lb) I have reviewed the vital signs, which demonstrates normal vitals Physical Exam: Physical Exam Constitutional: Appearance: Normal appearance. HENT: Head: Normocephalic and atraumatic. Nose: Nose normal. No congestion. Mouth/Throat: Mouth: Mucous membranes are moist. Pharynx: Oropharynx is clear. No oropharyngeal exudate. Eyes: Extraocular Movements: Extraocular movements intact. Pupils: Pupils are equal, round, and reactive to light. Neck: Musculoskeletal: Normal range of motion. No neck rigidity. Cardiovascular: Rate and Rhythm: Normal rate and regular rhythm. Pulses: Normal pulses. Heart sounds: No murmur. No gallop. Pulmonary: Comments: Normal work of breathing. Decreased air movement, bibasilar crackles. Some coarse rhonchiin left lower lobe Abdominal: Comments: Gravid uterus. Diffusely nontender Skin: General: Skin is warm. Neurological: General: No focal deficit present. Mental Status: She is alert and oriented to person, place, and time. Psychiatric: Mood and Affect: Mood normal. Thought Content: Thought content normal. Judgment: Judgment normal. ED Course: - Patient was evaluated and discussed with Dr. Richard - Medications, allergies, past medical history, surgical history, family history, and social historywere reviewed ED Course: - Medications and fluid administered: Medications - No data to display - I have reviewed lab results, which are significant for: Labs Reviewed BASIC METABOLIC PANEL (NON-FASTING) - Abnormal; Notable for the following components: Result Value Creatinine 0.53 (*) CO2 21 (*) All other components within normal limits HEMOGRAM - Abnormal; Notable for the following components: WBC 16.3 (*) RBC 3.71 (*) Hematocrit 35.4 (*) MCV 95.4 (*) MCH 32.3 (*) All other components within normal limits DIFFERENTIAL, AUTOMATED - Abnormal; Notable for the following components: Neutr Abs (ANC) 12.78 (*) Ayah Gran Abs 0.45 (*) All other components within normal limits URINALYSIS WITH REFLEX CULTURE - Abnormal; Notable for the following components: Urobilinogen UA 2.0 (*) Blood UA Trace (*) Ketones UA Trace (*) Appearance UA Cloudy (*) All other components within normal limits URINALYSIS MICROSCOPIC EXAM - Abnormal; Notable for the following components: RBC UA 11 (*) All other components within normal limits CBC (WITH DIFF) TROPONIN BLUE TUBE HOLD GOLD TUBE HOLD Assessment and Plan: MDM: 34 y.o. female who presents for ongoing cough and shortness of breath and she was discharged 3 days ago for community-acquired pneumonia. On my initial exam, the patient was well-appearing, breathing comfortably on room air. She did have some crackles in the decreased air movement, though she was not short of breath. A nonstress test wasdone at bedside by [facility] which was normal. I think that this is likely continuing shortness of breath and cough from her pneumonia. She has had no fevers or ongoing signs of infection or worsening of infection. Given her shortness of breath, I did consider a pulmonary embolism though the symptoms arenot consistent. I gave the patient option to perform a further work-up in the ED, though she was seen at [facility] yesterday where an x-ray was done and she obtained a prescription for steroids. She stated that she would like to go home, with the caveat that if should her symptoms worsen, she developsfevers, chills, she will come back to the emergency department. She will follow-up with her [facility] early next week. Return precautions were verbally discussed with the patient. The patient expressed understanding that they could come back to the ED at any time and agreed to the follow-up plan. Plan: - Discharge home - Follow up with PCP next week - Return precautions were discussed with the pt Francis Galvin MD Resident 08/06/19 0422 Associated attestation - Cristiane Richard MD - 08/07/2019 12:18 AM EDT ED ATTENDING ATTESTATION NOTE The patient was seen in conjunction with Dr. Galvin, the resident physician. I have independently performed the jack portions of the history and physical exam. I have reviewed the nursing notes, vital signs, and all diagnostic studies personally including labs. I have discussed the details of the casewith the resident and agree with the assessment and plan as described in the resident note unless noted otherwise. Priyanka Rosario RN - 08/06/2019 4:16 PM EDT BP made aware of patient's presence in the ED. Charge Nurse Mandy spoken to and will send someone to the ED for NST. Pilo Naylor PA - 08/06/2019 4:11 PM EDT Brief Provider Triage Note Name: Shirlene Kovacs : 1985 Date of Service: 08/06/2019 Chief Complaint: Shortness of Breath History of Present Illness: 34 y.o. y/o female who is 30 wks presents with concerns for Dyspnea caused by pneumonia. Recently admitted to [facility] for PNA, discharged on Azithromycin and cefpodoxime. Continued cough andmild dyspnea. Tested for COVID x2 with neg results. Denies current fevers/chills. Vitals: BP 111/52 (Patient Position: Sitting) Pulse 88 Temp 37 ??C (98.6 ??F) (Oral) Resp 20 Ht 175.3 cm (5' 9) Wt 88.5 kg (195 lb) LMP 11/10/2018 (LMP Unknown) SpO2 98% BMI 28.80 kg/m?? No acute distress Plan: CBC, BMP, Troponin, EKG Re-examination Further diagnosis and management in ED COVID-19 precautions were used throughout this encounter. Pilo Naylor PA 08/06/19 1613 Sugar Baron RN - 08/06/2019 3:09 PM EDT ED RN brief outside phone call note: Shirlene Kovacs is a 34 y.o. who I was called about from Jennifer Wu, bill peddler. The patient will be evaluated in the Emergency Department for shortness of breath, PNA. Brief Summary: Pt is 30w . Recently discharged with PNA, seen in [facility] ED Sunday for worsening SOB. Nowpresents with ongoing SOB, SpO2 97%. COVID negative x 2 in last week. Afebrile. documented in this encounter Plan of Treatment Not on filedocumented as of this encounter Procedures Procedure Name Priority Date/Time Associated Comments Diagnosis URINALYSIS STAT 08/06/2019 6:29 PM Results f or this MICROSCOPIC EXAM EDT procedure a re in the results section. URINALYSIS WITH STAT 08/06/2019 6:29 PM Result s for this REFLEX CULTURE EDT procedure are in the results section. HEMOGRAM STAT 08/06/2019 5:50 PM Results f or this EDT procedure are i n the results section. DIFFERENTIAL, STAT 08/06/2019 5:50 PM Results for this AUTOMATED EDT procedure are i n the results section. GOLD TUBE HOLD STAT 08/06/2019 5:50 PM Results for this EDT procedure are i n the results section. BLUE TUBE HOLD STAT 08/06/2019 5:50 PM Results for this EDT procedure are i n the results section. HC CBC,PLT & AUTO STAT 08/06/2019 5:50 PM DIFF EDT HC TROPONIN T STAT 08/06/2019 5:50 PM Results for this EDT procedure are i n the results section. BASIC METABOLIC PANEL STAT 08/06/2019 5:50 PM Results for this (NON-FASTING) EDT procedure are in the results section. EKG 12-LEAD STAT 08/06/2019 4:15 PM Results f or this EDT procedure are i n the results section. documented in this encounter Results (ABNORMAL) Urinalysis Microscopic Exam (08/06/2019 6:29 PM EDT) athologist Signature RBC UA 11 (H) 0 - 4 /HPF [facility] WBC UA 1 0 - 5 /HPF [facility] Squam Epith UA 4 <=4 /HPF [facility] Hyaline Cast 2 0 - 2 /LPF [facility] Specimen Anatomical Collection Method Collection Time Receive d Time (Source) Location / / Volume Laterality Urine specimen 08/06/2019 6:29 PM 020 6:42 (specimen) EDT PM EDT Resulting Agency Comment Spec In Lab Francis Galvin MD URINE ORDERABLES Performing Organization Address City/State/ZIP Code [place] [address] (ABNORMAL) Urinalysis with reflex Culture (08/06/2019 6:29 PM EDT) Patholo gist Method Time Signature Glucose UA Negative Negative [facility] mg/dL [facility] Protein UA Negative Negative [facility] mg/dL [facility] Bilirubin UA Negative Negative [facility] mg/dL [facility] Comment: Clinical correlation required for positi ve Urine Bilirubin results as false positive may occur with some drugs and d rug related products. If a false positive is suspected a serum total bili lópez should be considered if clinically indicated. Urobilinogen UA 2.0 (A) Normal mg/dL [facility] pH UA 6.0 5.0 - 8.0 [facility] Blood UA Trace (A) Negative mg/dL [facility] Ketones UA Trace (A) Negative mg/dL [facility] Nitrite UA Negative Negative [facility] Leukocytes UA Negative Negative [facility] Appearance UA Cloudy (A) Clear [facility] Spec Chaplin UA 1.019 1.006 - 1.030 [facility] Color UA Dark Yellow Yellow [facility] Culture Reflexed No [facility] Specimen Anatomical Collection Method Collection Time Receive d Time (Source) Location / / Volume Laterality Urine specimen 08/06/2019 6:29 PM 020 6:42 (specimen) EDT PM EDT Resulting Agency Comment Spec In Lab Cristiane Richard MD URINE ORDERABLES Performing Organization Address City/[facility]/[place] [address] Gold Tube HOLD (08/06/2019 5:50 PM EDT) P athologist Signature Gold Hold Sample in [facility]ORY Specimen Anatomical Collection Method Collection Time Receive d Time (Source) Location / / Volume Laterality Blood specimen Venous Draw / 08/06/2019 5:50 PM 2019 5:57 (specimen) Unknown EDT PM EDT Pilo VANCE CHEMISTRY ORDERABLES Performing Organization Address City/[facility]/ZIP Code Phon e Number [address] Blue Tube HOLD (08/06/2019 5:50 PM EDT) P athologist Signature Blue Hold Sample in [facility]OR[facility]ORY Specimen Anatomical Collection Method Collection Time Receive d Time (Source) Location / / Volume Laterality Blood specimen Venous Draw / 08/06/2019 5:50 PM 2019 5:57 (specimen) Unknown EDT PM EDT Pilo VANCE HEMATOLOGY ORDERABLES Performing Organization Address City/[facility]/[place] [address] (ABNORMAL) Differential, Automated (08/06/2019 5:50 PM EDT) [facility] gist Method Time Signature Neutrophils % 78.4 % [facility] Neutr Abs (ANC) 12.78 (H) 1.70 - [facility] 6.10 [facility] x10(3)/[facility] LABORATORY Lymphocytes % 12.8 % [facility] Lymphocytes Abs 2.1 0.9 - 3.2 [facility] x10(3)/[facility] LABORATORY Monocytes % 5.5 % [facility] Monocyte Abs 0.9 0.3 - 0.9 [facility] x10(3)/[facility] LABORATORY Eosinophils % 0.1 % [facility] Eosinophils Abs 0.0 0.0 - 0.4 [facility] x10(3)/[facility] LABORATORY Basophils % 0.4 % [facility] Basophils Abs 0.1 0.0 - 0.1 [facility] x10(3)/[facility]ORY Immature Gran % 2.80 % [facility] Comment: Immature granulocytes(IG's)percentage an d absolute count will include metamyelocytes, myelocytes, and promyelo cytes. Blood smears from CBCs yielding IG's will be scanned manually for concor dance. If this scan disagrees with the automated IG or if promyelocytes are not ed, a manual differential will be performed. Ayah Gran Abs 0.45 (H) 0.00 - 0.04 x10(3)/[facility] LABORATORY Specimen Anatomical Collection Method Collection Time Receive d Time (Source) Location / / Volume Laterality Blood specimen 08/06/2019 5:50 PM 020 5:56 (specimen) EDT PM EDT Resulting Agency Comment Spec In Lab Pilo VANCE HEMATOLOGY ORDERABLES Performing Organization Address City/State/ZIP Code [place] [address] (ABNORMAL) Hemogram (08/06/2019 5:50 PM EDT) Analysis Performed At Patho logist Time Signature WBC 16.3 (H) 4.0 - 9.5 [facility] x10(3)/[facility] LABORATORY RBC 3.71 (L) 4.00 - [facility] 5.21 [facility] x10(6)/[facility]ORY Hemoglobin 12.0 11.7 - [facility] 15.5 gm/dL [facility] Hematocrit 35.4 (L) 35.7 - [facility] 45.8 % [facility] MCV 95.4 (H) 82.6 - [facility] 94.4 fL [facility] MCH 32.3 (H) 27.1 - [facility] 32.0 pg [facility] MCHC 33.9 31.7 - [place] [facility] 35.0 gm/dL [facility] Platelets 335 145 - 357 [place] x10(3)/[facility] LABORATORY RDWSD 43.2 37.0 - [place] 46.0 [facility] LABORATORY RDWCV 12.5 11.5 - [place] 14.1 % [facility] MPV 10.2 7.6 - 12.9 [place] [facility] LABORATORY nRBC % Auto 0.0 % [facility] nRBC Abs Auto 0.000 0.000 - [place] 0.000 [facility] x10(3)/[facility] Specimen Anatomical Collection Method Collection Time Receive d Time (Source) Location / / Volume Laterality Blood specimen 08/06/2019 5:50 PM 020 5:56 (specimen) EDT PM EDT Resulting Agency Comment Spec In Lab Pilo VANCE HEMATOLOGY ORDERABLES Performing Organization Address City/State/ZIP Code Phon e Number [facility] [place] [address] Troponin (08/06/2019 5:50 PM EDT) P athologist Signature Troponin-T <0.01 0.00 - 0.00 [place] ng/mL [facility] Comment: The 99th percentile for Troponin T is le ss than 0.01 ng/mL, any detectable cTnT concentration using this assay should be considered elevated. According to the third universal definit ion of myocardial infarction the following criteria with a clinical prese ntation consistent with acute myocardial ischemia meets the diagnosis for a myocardial infarction ([place]). Detection of a rise and/or fall of cTnT, with at least one value greater than the 99th percentile (> or = 0.01) and wi th at least one of the following ?? Symptoms of ischemia ?? New or presumed new significant ST-se gment-T wave (ST-T) changes or new left bundle branch block (LBBB) ?? Development of pathologic Q waves in the ECG ?? Imaging evidence of new loss of viabl e myocardium or new regional wall motion abnormality ?? Identification of an intracoronary th rombus by angiography or autopsy Samples for cTnT testing should be obtai keri serially upon first assessment and again 3 to 6 hours later. If the clinica l suspicion is high and previous samples have been negative an additional sample may be indicated. Reference: Third [place] Definition of Myocardial Infarction. Journal of [employer] [place] [employer] 2012;60:1581-98 Specimen Anatomical Collection Method Collection Time Receive d Time (Source) Location / / Volume Laterality Blood specimen 08/06/2019 5:50 PM 020 5:56 (specimen) EDT PM EDT Resulting Agency Comment Spec In Lab Dinesh Carreon MD CHEMISTRY ORDERABLES Performing Organization Address City/State/ZIP [place] [address] (ABNORMAL) Basic Metabolic Panel (non-fasting) (08/06/2019 5:50 PM EDT) athologist Signature Glucose Lvl 108 65 - 199 [facility] mg/dL [facility] Comment: Diabetes: >=200 mg/dL plus symp toms BUN 9 8 - 18 mg/dL [facility] Creatinine 0.53 (L) 0.70 - 1.20 mg/dL [facility] Sodium 135 135 - 145 mmol/L [facility] Potassium 4.2 3.5 - 5.0 mmol/L [facility] Comment: Please note: ??Patients with WBC >100,00 0 may have falsely elevated Potassium levels. ??For accurate Potassium quantif ication in these patients send serum separator tube (gold top) for subsequent determinations. ??Contact the Clinical Chemistry Laboratory if there are any qu estions. Chloride 102 98 - 107 mmol/L [facility] CO2 21 (L) 22 - 31 mmol/L [facility] Anion Gap 12 5 - 15 mmol/L [facility] Calcium 8.8 8.5 - 10.5 mg/dL [facility] Estimated GFR 125 >=60 mL/min/1.73 m?? [facility] Comment: The eGFR was calculated using the CKD-EP I equation. As with all creatinine based estimates of kidney function, eGFR values calculated with the CKD-EPI equation are not accurate in patients wi th acute kidney failure, extremes of body mass or the acutely ill. [email or web address]nkf eGFR 145 >=60 mL/min/1.73 m?? [facility] Comment: The eGFR was calculated using the CKD-EP I equation. As with all creatinine based estimates of kidney function, eGFR values calculated with the CKD-EPI equation are not accurate in patients wi th acute kidney failure, extremes of body mass or the acutely ill. [email or web address] CITY[facility] Specimen Anatomical Collection Method Collection Time Receive d Time (Source) Location / / Volume Laterality Blood specimen 08/06/2019 5:50 PM 020 5:56 (specimen) EDT PM EDT Resulting Agency Comment Spec In Lab Dinesh Carreon MD CHEMISTRY ORDERABLES Performing Organization Address City/[facility] [place] [address] EKG 12 Lead (08/06/2019 4:15 PM EDT) Component Value Ref Range Test Analysis Performed Pathologis t Method Time At Signature Ventricular rate 79 BPM MUSE SYSTEM Atrial Rate 79 BPM MUSE SYSTEM P-R Interval 128 ms MUSE SYSTEM QRS Duration 78 ms MUSE SYSTEM Q-T Interval 374 ms MUSE SYSTEM QTC Calculated 428 ms MUSE SYSTEM (Bezet) Calculated P [place] 26 degrees MUSE SYSTEM Calculated R [place] 52 degrees MUSE SYSTEM Calculated T [place] 41 degrees MUSE SYSTEM INTERPRETATION Normal sinus rhythm MUSE SYSTEM Normal ECG When compared with ECG of 31-JUL-2019 16:39, No significant change was found Confirmed by MD KACY, DIANA ([id number]) on 08/07/2019 2:05:25 PM Specimen Anatomical Collection Method Collection Time Receive d Time (Source) Location / / Volume Laterality 08/06/2019 4:15 PM 0 2:05 EDT PM EDT Dinesh Carreon MD ECG ORDERABLES Performing Organization Address City/[facility] Phon e Number MUSE SYSTEM documented in this encounter Visit Diagnoses Diagnosis Cough documented in this encounter Care Teams Ceramist Relationship Specialty Start Date End Date Genet Holland PA PCP - General Family Medicine 02/06/19 05/15/20 [address] [place] [address] (work) documented as of this encounter
--- OUTSIDE RECORDS SUMMARY | 2021-10-20 07:56 | XMS_ITS | Encounter Summary ---
:1985 Author Organization [facility] [place] [address] Care Team Providers Name Role Phone Genet Holland Primary Care Provider Encounter Details Date Type Department Care Team Description 09/17/2019 Notes Only Obstetrics [place]cology [place] [address] Social History Tobacco Use Types Packs/Day Years Used Date Current Every Day Smoker Cigarettes 0.25 Smokeless Tobacco: Never Used Alcohol Use Standard Drinks/Week Comments No 0 (1 standard drink = 0.6 oz pure alcoho l) Not during Sex Assigned at Date Recorded Female 04/13/2020 8:26 AM EST documented as of this encounter Progress Notes Katerina Delcid V - 09/17/2019 3:49 PM EDT Received a call from [facility] stating this patient is in need of help completing paperwork. Patient may already be connected with another CHW - Jennifer Yang is currently looking into this and will get back to me tomorrow, I will follow up with patient/notes once this is confirmed. documented in this encounter Plan of Treatment Not on filedocumented as of this encounter Visit Diagnoses Not on filedocumented in this encounter Care Teams Engraver Ornamental Design Relationship Specialty Start Date End Date Genet Holland PA PCP - General Family Medicine 02/06/19 05/15/[address] [place] [id number] documented as of this encounter
--- OUTSIDE RECORDS SUMMARY | 2021-10-20 07:56 | XMS_ITS | Encounter Summary ---
:1985 Author Organization [facility] [place] [address] Care Team Providers Name Role Phone Genet Holland Primary Care Provider Encounter Details Date Type Department Care Team Description 09/24/2019 Telephone Obstetrics and Gynecology [place] [address] Social History Tobacco Use Types Packs/Day Years Used Date Current Every Day Smoker Cigarettes 0.25 Smokeless Tobacco: Never Used Alcohol Use Standard Drinks/Week Comments No 0 (1 standard drink = 0.6 oz pure alcoho l) Not during Sex Assigned at Date Recorded Female 04/13/2020 8:26 AM EST documented as of this encounter Miscellaneous Notes Telephone Encounter - Julia Diaz RN - 09/24/2019 3:48 PM EDTSummary: Lab results Called Patient per Jennifer Wu CNM, received identified voicemail, left message instructing per Jennifer, that her lab results were reassuring, Jennifer was still waiting on her creatinine and would contact patient once result was final. Left contact number for questions. Telephone Encounter - Julia Diaz RN - 09/24/2019 12:24 PM EDTSummary: Labs Called patient per Jennifer Wu in order to see if she could have her labs draw at [facility] which is closer to her residence? Patient states she she had the blood work drawn today at [facility]. Instructed patient would make Jennifer aware. documented in this encounter Plan of Treatment Not on filedocumented as of this encounter Visit Diagnoses Not on filedocumented in this encounter Care Teams Human Resources Associate Relationship Specialty Start Date End Date Genet Holland PA PCP - General Family Medicine 02/06/19 05/15/20 [address] [facility] [place] [address] documented as of this encounter
--- OUTSIDE RECORDS SUMMARY | 2021-10-20 07:56 | XMS_ITS | Encounter Summary ---
:1985 Author Organization [facility] [place] [address] Care Team Providers Name Role Phone Genet Holland Primary Care Provider Encounter Details Date Type Department Care Team Description 09/24/2019 Laboratory Appointment Lab at [facility] Supervision of high risk pre gnancy in third trimester; [address] Chronic hepatitis [place] [id number] Social History Tobacco Use Types Packs/Day Years [...] Priority Date/Time Associated Comments Diagnosis HEMOGRAM Routine 09/24/2019 10:47 Supervision of high Resu lts for this AM EDT risk in procedure are in third trimester the results section. DIFFERENTIAL, AUTOMATED Routine 09/24/2019 10:47 Supervision o f high Results for this AM EDT risk in procedure are in third trimester the results section. HC SYPHILIS ANTIBODY Routine 09/24/2019 10:47 Chronic hepatiti s C Results for this AM EDT without hepatic procedure ar e in coma the results section. HC HCV QUANTIFICATION Routine 09/24/2019 10:47 Chronic hepatit is C Results for this AM EDT without hepatic procedure ar e in coma the results section. HC HIV SCREEN, 4TH Routine 09/24/2019 10:47 Chronic hepatitis C Results for this GENERATION AM EDT without hepatic procedure ar e in coma the results section. HC CBC,PLT & AUTO DIFF Routine 09/24/2019 10:47 Supervision of high AM EDT risk in third trimester HC VENIPUNCTURE Routine 09/24/2019 10:47 Supervision of high R esults for this AM EDT risk in procedure are in third trimester the results section. HC CREATININE - NON Routine 09/24/2019 9:15 Supervision of hig h Results for this BLOOD AM EDT risk in procedure are in third trimester the results section. documented in this encounter Results (ABNORMAL) Differential, Automated (09/24/2019 10:47 AM EDT) [facility] Method Time Signature Neutrophils % 65.1 % [facility] Neutr Abs (ANC) 6.95 (H) 1.70 - [facility] 6.10 [facility] x10(3)/[facility] LABORATORY Lymphocytes % 22.8 % [facility] Lymphocytes Abs 2.4 0.9 - 3.2 [facility] x10(3)/[facility] LABORATORY Monocytes % 9.8 % [facility] Monocyte Abs 1.0 (H) 0.3 - 0.9 [facility] x10(3)/[facility] LABORATORY Eosinophils % 1.2 % [facility] Eosinophils Abs 0.1 0.0 - 0.4 [facility] x10(3)/[facility] LABORATORY Basophils % 0.4 % [facility] Basophils Abs 0.0 0.0 - 0.1 [facility] x10(3)/[facility] LABORATORY Immature Gran % 0.70 % [facility] Comment: Immature granulocytes(IG's)percentage an d absolute count will include metamyelocytes, myelocytes, and promyelo cytes. Blood smears from CBCs yielding IG's will be scanned manually for concor dance. If this scan disagrees with the automated IG or if promyelocytes are not ed, a manual differential will be performed. Ayah Gran Abs 0.08 (H) 0.00 - 0.04 x10(3)/[facility] LABORATORY Specimen Anatomical Collection Method Collection Time Receive d Time (Source) Location / / Volume Laterality Blood specimen 09/24/2019 10:47 0 1:03 (specimen) AM EDT PM EDT Resulting Agency Comment Spec In Lab Jennifer Wu CNM HEMATOLOGY ORDERABLES Performing Organization Address City/State/[place] [address] (ABNORMAL) Hemogram (09/24/2019 10:47 AM EDT) Analysis Performed At Patho logist Time Signature WBC 10.7 (H) 4.0 - 9.[address] [facility] x10(3)/[facility] LABORATORY RBC 3.95 (L) 4.00 - [place] [facility] 5.21 [facility] x10(6)/[facility] LABORATORY Hemoglobin 12.8 11.7 - [facility] 15.[facility] gm/dL [facility] Hematocrit 37.8 35.7 - [facility] 45.8 % [facility] MCV 95.7 (H) 82.6 - [facility] 94.4 [facility] LABORATORY MCH 32.4 (H) 27.1 - [place] [facility] 32.0 pg [facility] MCHC 33.9 31.7 - [facility] 35.0 gm/dL [facility] Platelets 268 145 - 357 [facility] x10(3)/[facility] LABORATORY RDWSD 44.3 37.0 - [facility] 46.0 [facility] LABORATORY RDWCV 12.7 11.5 - [facility] 14.1 % [facility]OR[facility]ORY MPV 10.6 7.6 - 12.9 [facility] LABORATORY nRBC % Auto 0.0 % [facility] nRBC Abs Auto 0.000 0.000 - [facility] 0.000 [facility] x10(3)/[facility] LABORATORY Specimen Anatomical Collection Method Collection Time Receive d Time (Source) Location / / Volume Laterality Blood specimen 09/24/2019 10:47 0 1:03 (specimen) AM EDT PM EDT Resulting Agency Comment Spec In Lab Jennifer Wu CNM HEMATOLOGY ORDERABLES Performing Organization Address City/State/[place] [address] Hepatitis C RNA, quantitative, PCR (09/24/2019 10:47 AM EDT) Component Value Ref Test Analysis Performed At Patholo gist Range Method Time Signature HCV Viral 983,846 IU/mL [facility] LABORATORY HCV Viral Result: [id number] IU/mL [facility] Indication for Study: Hepatitis C Infection [facility] Analysis: The [employer] RealTime HCV assay is an in vitro reverse guest relations officer LABORATORY polymerase chain reaction (RT-PCR)for the quantitation of hepatitis C viral (HCV) RNA in human serum or plasma (EDTA) from HCV-infected indivi duals. Sample: plasma (0.7 mL minimum volume) Method: [employer] RealTime HCV Assay Linear Range: 12 IU/mL - 100,000,000IU/mL Note: The [employer] RealTime HC V Assay has been approved by the U.S. Food and Drug Administration. Comment: [VERIFIED DATE]10.01.19 Verified By:Christi Rebolledo (Electronic Signature) Specimen Anatomical Collection Method Collection Time Receive d Time (Source) Location / / Volume Laterality Blood specimen 09/24/2019 10:47 0 4:46 (specimen) AM EDT PM EDT Resulting Agency Comment Spec In Lab Jennifer MALHOTRA IMMUNOLOGY ORDERABLES Performing Organization Address City/State/[place] [address] HIV Screen, 4th Generation ([facility]/CGP/APD) (09/24/2019 10:47 AM EDT) Analysis Performed At [facility] logist Time Signature HIV-1/2 Ab and Negative Negative [facility] LABORATORY Comment: This 4th Generation HIV test screens for the presence of the HIV-1 p24 antigen as well as antibodies reactive against H IV-1 and HIV-2. A negative screen does not rule out an acute HIV infection. If acute HIV infection is suspected, testing should be repeated in 2 - 3 week s or HIV nucleic acid testing performed. Specimen Anatomical Collection Method Collection Time Receive d Time (Source) Location / / Volume Laterality Blood specimen 09/24/2019 10:47 0 1:11 (specimen) AM EDT PM EDT Resulting Agency Comment Spec In Lab Jennifer Wu MARYA IMMUNOLOGY ORDERABLES Performing Organization Address City/State/ZIP Code Phon e Number [address] Syphilis Screening Antibody with reflex RPR (09/24/2019 10:47 AM EDT) Analysis Performed At Patho logist Time Signature Syphilis Negative Negative [facility] IgG/IgM [facility] Specimen Anatomical Collection Method Collection Time Receive d Time (Source) Location / / Volume Laterality Blood specimen 09/24/2019 10:47 0 1:11 (specimen) AM EDT PM EDT Resulting Agency Comment Spec In Lab Jennifer Wu [facility] IMMUNOLOGY ORDERABLES Performing Organization Address City/[facility]/ZIP Code Phon e Number [address] (ABNORMAL) Comprehensive metabolic panel (non-fasting) (09/24/2019 10:47 AM EDT) P athologist Signature Glucose Lvl 81 65 - 199 [facility] mg/dL [facility] Comment: Diabetes: >=200 mg/dL plus symp toms BUN 9 8 - 18 mg/dL [facility] Creatinine 0.52 (L) 0.70 - 1.20 mg/dL [facility] Sodium 138 135 - 145 mmol/L [facility] Potassium 4.1 3.5 - 5.0 mmol/L [facility] Comment: Please note: ??Patients with WBC >100,00 0 may have falsely elevated Potassium levels. ??For accurate Potassium quantif ication in these patients send serum separator tube (gold top) for subsequent determinations. ??Contact the Clinical Chemistry Laboratory if there are any qu estions. Chloride 105 98 - 107 mmol/L [facility] CO2 21 (L) 22 - 31 mmol/L [facility] Anion Gap 12 5 - 15 mmol/L [facility] Calcium 8.6 8.5 - 10.5 mg/dL [facility] Total Protein 6.0 (L) 6.1 - 8.0 gm/dL [facility] Albumin 3.1 (L) 3.2 - 5.2 gm/dL [facility] AST 61 (H) 0 - 30 unit/L [facility] ALT 32 (H) 0 - 30 unit/L [facility] Alk Phos 187 (H) 35 - 105 unit/L [facility] Total Bilirubin 0.6 0.2 - 1.3 mg/dL [facility] Estimated GFR 126 >=60 mL/min/1.73 m?? [facility] Comment: The eGFR was calculated using the CKD-EP I equation. As with all creatinine based estimates of kidney function, eGFR values calculated with the CKD-EPI equation are not accurate in patients wi th acute kidney failure, extremes of body mass or the acutely ill. [email or web address] eGFR 145 >=60 mL/min/1.73 m?? [facility] Comment: The eGFR was calculated using the CKD-EP I equation. As with all creatinine based estimates of kidney function, eGFR values calculated with the CKD-EPI equation are not accurate in patients wi th acute kidney failure, extremes of body mass or the acutely ill. [email or web address] Specimen Anatomical Collection Method Collection Time Receive d Time (Source) Location / / Volume Laterality Blood specimen 09/24/2019 10:47 0 1:14 (specimen) AM EDT PM EDT Resulting Agency Comment Spec In Lab Jennifer Wu CNM CHEMISTRY ORDERABLES Performing Organization Address City/State/[place] [address] (ABNORMAL) Protein/Creatinine Ratio, urine (09/24/2019 9:15 AM EDT) P athologist Signature U Creatinine 104 mg/dL [facility] U Protein Ran 15 (H) 0 - 12 [facility] mg/dL [facility] Prot/Cre Ratio 0.1 ratio [facility] Specimen Anatomical Collection Method Collection Time Receive d Time (Source) Location / / Volume Laterality Urine specimen 09/24/2019 9:15 AM 020 (specimen) EDT 10:02 PM EDT Resulting Agency Comment Spec In Lab Jennifer MALHOTRAM URINE ORDERABLES Performing Organization Address City/State/[place] [address] documented in this encounter Visit Diagnoses Diagnosis Supervision of high risk in th ird trimester Unspecified high-risk Chronic hepatitis C without hepatic coma documented in this encounter Care Teams Leasing Agent Relationship Specialty Start Date End Date Genet Holland PA PCP - General Family Medicine 02/06/19 05/15/20 [address] [place] [address] documented as of this encounter
--- OUTSIDE RECORDS SUMMARY | 2021-10-20 07:56 | XMS_ITS | Encounter Summary ---
:1985 Author Organization [facility] [place] [address] Care Team Providers Name Role Phone Genet Holland Primary Care Provider Reason for Visit Auth/Cert Specialty Diagnoses / Procedures Referred By Contact Refer red To Contact Diagnoses Encounter for planned induction of labor Procedures VAGINAL DELIVERY Referral ID Status Reason Start Date Expiration Date Visits Requ ested Visits Authorized [id number] 1 1 Encounter Details Date Type Department Care Team Description 10/03/2019 Anesthesia Event [facility] [place] [address] [facility] Yesi Pride MD [facility] [address] [place] [address] [place] [address] Anesthesia Record Procedure Summary Procedure Name Responsible Anesthesia Start Anesthesia Stop Time Anesthesiologist Time Labor Analgesia (proc) Events Date Time Event Comment 10/03/2019 1541 AN Verify 1542 Labor Neuraxial 10/04/2019 0245 Face Time Called to assess patient for discomfort and blood at catheter site. O n exam patient found sleeping, blood unchanged from p revious exam at insertion site. Noted catheter to have migrated out to 9cm depth marker. Bolused 5cc 0.25 % bupi x2 and redressed catheter. Increased rate t o 10cc/hr. Instructed patient to avoid vigorous m ovement to not dislodge the catheter further. BP stab le, will continue to monitor. 0713 Face Time Called for pain an insertion site. On exam carlos albertoteter migrated out to 7cm, replaced. Name Total Lidocaine 1.5% with Epi 1:200K 12 mL lidocaine (XYLOCAINE) 10 mg/mL (1 %) injection 3 mg 6 mL BUpivacaine 0.25% 10 mL Agents No agents on file. Blood No blood administrations on file. Lines, Drains, and Airways Type Details Placement Removal Epidural 10/03/19; 1607 (created 10/03/19 1607 by Celia, 10/04/19 0735 by Celia, via procedure MD Xiomara Joseph MD documentation); 10/04/19; 0735 (removed via procedure documentation) Epidural 10/04/19; 0735 (created 10/04/19 0735 by Celia, 10/04/192199 by via procedure MD Malena Joesph Jaime M, RN documentation); no longer indicated, catheter intact, removed per policy; 10/04/19; 2199 documented in this encounter Social History Tobacco Use Types Packs/Day Years Used Date Current Every Day Smoker Cigarettes 0.25 Smokeless Tobacco: Never Used Alcohol Use Standard Drinks/Week Comments No 0 (1 standard drink = 0.6 oz pure alcoho l) Not during Sex Assigned at Date Recorded Female 04/13/2020 8:26 AM EST documented as of this encounter OR Notes Anesthesia Postprocedure Evaluation - Record, Richard Johnson MD - 10/06/2019 1:58 PM EDT Department of Anesthesiology Post-procedure Note Patient: Shirlene Kovacs Procedure Summary Date: 10/03/19 Room / Location: Anesthesia Start: Anesthesia Stop: Procedure: Labor Analgesia (proc) Diagnosis: Scheduled Providers: Responsible Provider: Anesthesia Type: epidural ASA Status: 2 All Anesthesia Providers: No anesthesia staff entered. Vitals Value Taken Time BP Temp Pulse Resp SpO2 Pain Level Patient Location: Floor Level of Consciousness: Awake and Alert Pain Management: Satisfactory Analgesia PONV: None Cardiovascular Status: At Baseline Respiratory Status: At Baseline Postoperative Fluid Status: Intravascular EUvolemia Possible Anesthetic Complications: NONE apparent at time of evaluation Final Primary Anesthesia Type: Epidural (The anesthetic type performed was the same as planned.) Comments: Ambulating, eating and voiding without issue. Anesthesia Procedure Notes - Xiomara Yang MD - 10/04/2019 7:34 AM EDT Associated Order(s): Neuraxial for Labor Only Procedure: Labor Analgesia Neuraxial Block Labor Analgesia Type: Epidural The patient was greeted. The sedation plan, its benefits, risks and alternatives were discussed withthe patient. The patient has consented to the procedure. The medical history and chart were reviewed. The timeout was performed. Start time: 10/04/2019 7:15 AM End time: 10/04/2019 7:25 AM [facility] Patient Prep Position: Sitting Prep: Chlorhexidine, Patient Draped, Hand Hygiene, Hat, Mask and Sterile Gloves Injection technique: continuous Procedure Technique Level of needle insertion: L3-4 Needle approach: midline Needle Type: Marija Henry Gauge: 18 Needle length: 3.5 in Needle insertion depth when MICHELLE achieved: 8 cm Technique for Loss of Resistance: MICHELLE air and MICHELLE saline A 21 guage epidural catheter introduced into the epidural space. Catheter at skin depth: 14 cm Dressing/Secured with: Chlorhexidine Tegaderm and Tegaderm Number of attempts: 1 Test dose Lidocaine 1.5% w/Epinephrine 1:2000,000 3mL Events/Notes Events: None Resident/CORPORATE ETHICS OFFICER: Xiomara Yang MD Second Resident/CORPORATE ETHICS OFFICER: Fellow: Attending Physician: Jasson Vigil MD ~~~~~~~~~~~~~~~~~~~~~~~~~~~~~~~~~~~~~~~~~~~~~~~~~~~~~~~~~~~~ Anesthesia Preprocedure Evaluation - Yesi Pride - 10/03/2019 4:26 PM EDT Pre-Anesthesia Evaluation for: Shirlene Dumas Kovacs a 34 y.o. female. * No procedures listed * Patient Active Problem List Diagnosis ??? Encounter for planned induction of labor ??? Bacterial vaginosis in ??? Pneumonia complicating ??? Carpal tunnel syndrome, bilateral ??? Maternal varicella, non-immune ??? Constipation ??? Palpitations ??? Anxiety ??? Acute bronchitis due to 2019 novel coronavirus (COVID-19)-suspected, not tested ??? Nausea and vomiting during ??? Supervision of high risk in third trimester Team/Centering MFM Delivery Plan Referring provider FIRST TRIMESTER NOB labs Hepatitis A vaccine screen Aneuploidy screen CF screen SMA screen Other: early GCT, aspirin, TSH, heparin FIRST LINE PRODUCTION SUPERVISOR/CHW/Purple POD consult? SECOND TRIMESTER 18-20 week US [...] disease. Treatment: Chemotherapy and radiation therapy Facility: [facility] ([place], [place]) Protocol: JOE-HD-90; 2 cycles OPPA, 2 [...] disease. Treatment: Chemotherapy and radiation therapy Facility: [facility] ([place], [place]) Protocol: JOE-HD-90; 2 cycles OPPA, 2 [...] BX performed by Ugo Reed MD at [facility] ??? PRO COLONOSCOPY, DIAGNOSTIC 08/20/2013 COLONOSCOPY, DIAGNOSTIC performed by Ugo Reed MD at [facility] ??? PRO COLONOSCOPY, REMV LESN, SNARE 08/20/2013 COLONOSCOPY, POLYPECTOMY, REMOVAL LESION BY SNARE performed by Ugo Reed MD at [facility] ??? PRO ENDOSCOPIC US EXAM, ESOPH 08/20/2013 UPPER EUS- ENDOSCOPIC ULTRASOUND performed by Ugo Reed MD at [facility] ??? PRO UPPER GI ENDOSCOPY, DIAGNOSTIC 08/20/2013 EGD, UPPER GI ENDOSCOPY performed by Ugo Reed MD at [facility] ??? SKIN BIOPSY HEAD/NECK ??? [...] home medications have been reviewed. Physical Exam: Patient Vitals for the past 24 hrs: Temp Heart Rate From SP02 Pulse Resp BP SpO2 O2 Device 10/02/19 1854 -- -- -- -- -- -- 10/02/19 2154 36.5 ??C (97.7 ??F) -- 85 20 122/71 -- 10/02/19 2226 -- -- 84 -- 124/67 -- -- 10/03/19 0259 36.7 ??C (98.1 ??F) -- 85 20 114/78 -- -- 10/03/19 0705 36.6 ??C (97.9 ??F) -- 87 -- 115/77 -- -- 10/03/19 0743 36.6 ??C (97.9 ??F) -- 86 16 119/56 -- -- 10/03/19 0957 -- 82 bpm -- -- -- 97 % -- 10/03/19 1002 -- 80 bpm -- -- -- 97 % -- 10/03/19 1119 -- 68 bpm -- -- -- 96 % 10/03/19 1122 36.5 ??C (97.7 ??F) -- 77 18 99/60 -- -- Body mass index is 32.09 kg/m??. Height: 175.3 cm (5' 9.02) Weight: 98.6 kg (217 lb 6.4 oz) Airway Assessment: Mallampati: II TM distance: >3 FB Neck ROM: full Cardiovascular Assessment: Pulmonary Assessment: Dental Assessment: - normal exam Misc Assessment: IV access: Peripheral line Anesthesia Plan: ASA 2 epidural, with a(n) intravenous induction 34 y.o. female at 38w5d here for IOL for elevated liver enzymes. Medical, surgical, family and social history reviewed; significant for hep c, depression/anxiety/bipolar, subutex, asthma, hypothyroidism. No contraindication to a neuraxial technique. Lab Results Component Value Date HGB 12.8 10/02/2019 Lab Results Component Value Date PLATELET 266 10/02/2019 Lab Results Component Value Date ABORH A Pos 04/09/2019 Discussed options for labor analgesia and potential need for anesthesia for section including epidural, spinal, combined spinal/epidural, and general anesthesia. Risks/benefits discussed; questions answered. Consent obtained. Region - Other Informed Consent: Anesthetic plan and risks discussed with patient. Use of blood products discussed with patient who consented to blood products. PAT Clinic Note Anesthesia Procedure Notes - Minh Laughlin MD - 10/03/2019 4:05 PM EDT Associated Order(s): Neuraxial for Labor Only Procedure: Labor Analgesia Neuraxial Block Labor Analgesia Type: Epidural The patient was greeted. The sedation plan, its benefits, risks and alternatives were discussed withthe patient. The patient has consented to the procedure. The medical history and chart were reviewed. The timeout was performed. Start time: 10/03/2019 3:50 PM End time: 10/03/2019 4:00 PM Patient Location: [facility] Patient Prep Position: Sitting Prep: Chlorhexidine, Patient Draped, Hand Hygiene, Hat, Mask and Sterile Gloves Injection technique: continuous Procedure Technique Level of needle insertion: L5-S1 Needle approach: midline Needle Type: Tuohy Gauge: 18 Needle length: 3.5 in Needle insertion depth when MICHELLE achieved: 7.5 cm Technique for Loss of Resistance: MICHELLE air and MICHELLE saline Number of attempts: 1 Test dose Lidocaine 1.5% w/Epinephrine 1:2000,000 3mL Events/Notes Events: None Resident/CORPORATE ETHICS OFFICER: Xiomara Yang MD Second Resident/CORPORATE ETHICS OFFICER: Darren Porter MD Fellow: Attending Physician: Minh Laughlin MD ~~~~~~~~~~~~~~~~~~~~~~~~~~~~~~~~~~~~~~~~~~~~~~~~~~~~~~~~~~~~ documented in this encounter Plan of Treatment Not on filedocumented as of this encounter Procedures Procedure Name Priority Date/Time Associated Diagnosis Comme nts [id number] Routine 10/04/2019 7:34 AM Results f or this EDT procedure are i n the results section . [id number] Routine 10/03/2019 4:05 PM Results f or this EDT procedure are i n the results section . documented in this encounter Results [id number] (10/04/2019 7:34 AM EDT) Narrative Jasson Vigil MD - 10/04/2019 7:34 A M EDT Xiomara Yang MD ? 10/04/2019 ??7:35 AM Procedure: ?? Labor Analgesia Neuraxial Block Labor Analgesia Type: Epidural The patient was greeted. The sedation pl an, its benefits, risks and alternatives were discussed with the pat ient. ??The patient has consented to the procedure. ??The medical history and chart were reviewed. ??The timeout was performed. Start time: 10/04/2019 7:15 AM End time: 10/04/2019 7:25 AM [facility] Patient Prep Position: Sitting Prep: Chlorhexidine, Patient Draped, Padilla d Hygiene, Hat, Mask and Sterile Gloves Injection technique: continuous Procedure Technique Level of needle insertion: L3-4 Needle approach: midline Needle Type: Marija Henry Gauge: 18 Needle length: 3.5 in Needle insertion depth when MICHELLE achieved : 8 cm Technique for Loss of Resistance: MICHELLE ai r and MICHELLE saline A 21 guage epidural catheter introduced into the epidural space. Catheter at skin depth: 14 cm Dressing/Secured with: Chlorhexidine Teg aderm and Tegaderm Number of attempts: 1 Test dose Lidocaine 1.5% w/Epinephrine 1:2000,000 3mL Events/Notes Events: ??None Resident/CORPORATE ETHICS OFFICER: ?Macario Yang MD Second Resident/CORPORATE ETHICS OFFICER: Fellow: ? Attending Physician: ? Jasson Vigil MD ~~~~~~~~~~~~~~~~~~~~~~~~~~~~~~~~~~~~~~~~ ~~~~~~~~~~~~~~~~~~~~ Jasson Vigil MD AUTOMOTIVE INTERNET SALES CONSULTANT [facility] [id number] (10/03/2019 4:05 PM EDT) Narrative Minh Laughlin MD - 10/03/2019 4:05 P M EDT Minh Laughlin MD ? 10/09/2019 10:47 AM Procedure: ?? Labor Analgesia Neuraxial Block Labor Analgesia Type: Epidural The patient was greeted. The sedation pl an, its benefits, risks and alternatives were discussed with the pat ient. ??The patient has consented to the procedure. ??The medical history and chart were reviewed. ??The timeout was performed. Start time: 10/03/2019 3:50 PM End time: 10/03/2019 4:00 PM [facility] Patient Prep Position: Sitting Prep: Chlorhexidine, Patient Draped, Padilla d Hygiene, Hat, Mask and Sterile Gloves Injection technique: continuous Procedure Technique Level of needle insertion: L5-S1 Needle approach: midline Needle Type: Tuohy Gauge: 18 Needle length: 3.5 in Needle insertion depth when MICHELLE achieved : 7.5 cm Technique for Loss of Resistance: MICHELLE ai r and MICHELLE saline Number of attempts: 1 Test dose Lidocaine 1.5% w/Epinephrine 1:2000,000 3mL Events/Notes Events: ??None Resident/CORPORATE ETHICS OFFICER: ? Measom, Re arcelia Dumas MD Second Resident/CORPORATE ETHICS OFFICER: ??Darren Porter MD Fellow: ? Attending Physician: ? Minh Laughlin MD ~~~~~~~~~~~~~~~~~~~~~~~~~~~~~~~~~~~~~~~~ ~~~~~~~~~~~~~~~~~~~~ Minh Laughlin MD AUTOMOTIVE INTERNET SALES CONSULTANT [facility] documented in this encounter Visit Diagnoses Not on filedocumented in this encounter Administered Medications Inactive Administered Medications - up to 3 most recent administrations Medication Order MAR Action Action Date Dose Rate Site BUpivacaine (MARACAINE) 0.25% bolus Given 10/04/2019 2:52 AM EDT 5 mLs injection (Anesthesia) PRN, Starting on 10/04/19 at 0247, Until Jada 10/09/19 at 1521, Anesthesia Intra-op, Routine Given 10/04/2019 2:47 AM EDT 5 mLs lidocaine (XYLOCAINE) 10 mg/mL (1 %) injection Given 0 10/04/2019 7:16 AM EDT 3 mLs 3 mg 3 mg (0.3 mL), Subcutaneous, ONCE PRN, 1 dose, Starting on Jada 10/02/19 at 1931, Until 10/04/19 at 0716, for discomfort with PIV insertion, Routine Given 10/03/2019 3:42 PM EDT 3 mLs lidocaine-EPINEPHrine 1.5 %-1:200,000 Given 10/04/2019 7:25 AM E DT 3 mLs injection Epidural, PRN, Starting on 10/03/19 at 1553, Until Jada 10/09/19 at 1521, Anesthesia Intra-op, Routine Given 10/04/2019 7:20 AM EDT 3 mLs Given 10/03/2019 3:57 PM EDT 3 mLs documented in this encounter Care Teams Copper Plate Lithographer Relationship Specialty Start Date End Date Genet Holland PA PCP - General Family Medicine 02/06/19 05/15/[address] [place] [id number] documented as of this encounter
--- OUTSIDE RECORDS SUMMARY | 2021-10-20 07:56 | XMS_ITS | Encounter Summary ---
:1985 Author Organization [facility] [place] [address] Care Team Providers Name Role Phone Genet Holland Primary Care Provider Reason for Visit Auth/Cert Specialty Diagnoses / Procedures Referred By Contact Refer red To Contact Diagnoses Encounter for planned induction of labor Procedures VAGINAL DELIVERY Referral ID Status Reason Start Date Expiration Date Visits Requ ested Visits Authorized [id number] 1 1 Encounter Details Date Type Department Care Team Description 09/30/2019 Hospital Encounter Radiology at [facility] Marcie Baron, Polyhydramnios [facility] affecting in [facility] third trimester [place], [place] CENTER [address] OBSTETRICS & [phone] [address] Social History Tobacco Use Types Packs/Day Years [...] Comme nts US OB FOLLOW UP Routine 09/30/2019 9:12 AM Polyhydramnios Resu lts for this EDT affecting in [facility] are in third trimester the results section. [...] late gestational age. ? Destiny Reno, Staff Veto cantu Electronically Signed Final Report ?? 10:17 am Narrative 09/30/2019 10:18 AM EDT OBSTETRICS REPORT ? (Signed Final 09/30/2019 10:17 am) PATIENT INFO: ID #: ? [id number] ?: ??[birth year] (34 yrs)(F) Name: ? SHIRLENE KOVACS ?Visit Date: 09/30/2019 08:43 am PERFORMED BY: Performed By: ? Rose Peña RDMS Attending: ?Destiny Reno MD Referred By: ?MARCIE BARON Location: ? [facility] SERVICE(S) PROVIDED: ??UOBFOL - Efw - Growth ??- [place] - [id number] ?[id number] INDICATIONS: ??38 weeks gestation of ?Z3A.38 ??hydramnios VITAL SIGNS: Weight (lb): 213.0 Height: ?5'9 ?BMI: ?31.45 EVALUATION: Num Of Fetuses: ?1 Heart Rate(bpm): ?? 133 Cardiac Activity: ?Observed, normal rhythm Presentation: ?Cephalic Placenta: ?Clinical Review Specialist ior P. Cord Insertion: ? Not well [...] - 87 FL/AC: ? 20.9 ??% ? 20 - 24 Est. FW: ?3605 ?? gm ?? 7 [...] 020 10:17 am) PATIENT INFO: ID #: [id number] : [birth year] (34 y rs)(F) Name: SHIRLENE KOVACS Visit Date: 09/29 08:43 am PERFORMED BY: Performed By: Rose Peña RDMS Attending: Destiny Reno MD Referred By: MARCIE BARON Location: [facility] SERVICE(S) PROVIDED: [facility]OB[facility]OL - Efw - Growth - [place] - [id number] INDICATIONS: 38 weeks gestation of Z3A.38 hydramnios [...] ASHLIE: 10/09/19 Best: 38w 2d Det. By: U/S C R L ASHLIE: [...] 2d based on U/S C R L (03/05/19) Composite age based on the current ultr asound alone is 38w 5d. Estimated weight corresponds to t he 81th percentile for 38w 2d. Current growth parameters are consisten t with prior dating indicating normal growth. Amniotic fluid volume is Normal Anatomical survey is limited due to the late gestational age. Destiny Reno, Staff Physician Electronically Signed Final Report 09/29 10:17 am [address] Baron [address] [facility] OB ORDERABLES documented in this encounter Visit Diagnoses Diagnosis Polyhydramnios affecting in th ird trimester documented in this encounter Care Teams Poultry Farmer Egg Relationship Specialty Start Date End Date Genet Holland PA PCP - General Family Medicine 02/06/19 05/15/[address] [place] [phone] documented as of this encounter
--- OUTSIDE RECORDS SUMMARY | 2021-10-20 07:57 | XMS_ITS | Encounter Summary ---
:1985 Author Organization [facility] [place] [address] Care Team Providers Name Role Phone Genet Holland Primary Care Provider Encounter Details Date Type Department Care Team Description 04/07/2019 Telephone Obstetrics and Gynecology [place] [address] Social History Tobacco Use Types Packs/Day Years Used Date Current Every Day Smoker Cigarettes 0.5 Smokeless Tobacco: Never Used Alcohol Use Standard Drinks/Week Comments No 0 (1 standard drink = 0.6 oz pure alcoho l) Not during Sex Assigned at Date Recorded Female 04/13/2020 8:26 AM EST documented as of this encounter Miscellaneous Notes Telephone Encounter - Julia Diaz RN - 04/07/2019 9:03 AM EST Called patient per Jennifer Wu in order to discuss having a TSH drawn, received voicemail message stating that the VM box is full. Unable to leave a message. documented in this encounter Plan of Treatment Not on filedocumented as of this encounter Visit Diagnoses Not on filedocumented in this encounter Care Teams School Secretary Relationship Specialty Start Date End Date Genet Holland PA PCP - General Family Medicine 02/06/19 05/15/[address] [place] [phone] documented as of this encounter
--- OUTSIDE RECORDS SUMMARY | 2021-10-20 07:57 | XMS_ITS | Encounter Summary ---
:1985 Author Organization [facility] [place] [address] Care Team Providers Name Role Phone Genet Holland Primary Care Provider Encounter Details Date Type Department Care Team Description 06/18/2019 Orders Only Obstetrics and Gynecology Jennifer Echeverria, CNPippa at [facility] Celia gutierrez OBSTETRICS & [place] [address] [place] [address] [phone] (Wo rk) Social History Tobacco Use Types [...] on filedocumented in this encounter Care Teams Gas Pump Attendant Relationship Specialty Start Date End Date Genet Holland PA PCP - General Family Medicine 02/06/19 05/15/[address] [place] [phone] documented as of this encounter
--- OUTSIDE RECORDS SUMMARY | 2021-10-20 07:57 | XMS_ITS | Encounter Summary ---
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 Restraint Interventions Safety Promotion/Fall Prevention -- fall prevention program maintained;nonskid shoes/slippers when out of bed;safety round/check completed Positioning Body Position -- independent Activity Activity Type activity adjusted per tolerance;ambulated in room;ambulated in weber -- Activity Assistance Provided independent -- Assistive Device Utilized none -- Goal: Infection Control Outcome: Ongoing (Interventions Implemented as Appropriate) 08/02/192051 Safety Interventions Isolation Precautions droplet precautions maintained Infection Prevention environmental surveillance performed;personal protective equipment utilized;rest/sleep promoted;single patient room provided Coping Strategies Supportive Measures active listening utilized;counseling provided;decision- making supported;goal setting facilitated;positive reinforcement provided;problem solving facilitated;relaxation techniques promoted;self-care encouraged;verbalization of feelings encouraged Goal: Discharge Needs Assessment Outcome: Ongoing (Interventions Implemented as Appropriate) 08/01/19 1522 Living Environment Transportation Available family or friend will provide Goal: Interdisciplinary Rounds/Family Conf Outcome: Ongoing (Interventions Implemented as Appropriate) 08/02/19 1643 Interdisciplinary Rounds/Family Conf Participants patient;physician;nursing Plan of Care - La Nena Walker RN - 08/02/2019 4:57 PM EDT Problem: Patient Care Overview Goal: Plan of Care Review Outcome: Ongoing (Interventions Implemented as Appropriate) 08/01/19 1523 08/02/19 0847 Coping/Psychosocial Plan Of Care Reviewed With -- patient Plan of Care Review Progress progress toward functional goals as expected -- OUTCOME EVALUATION NOTE: OUTCOME SUMMARY: Patient stated 5/10 pain this shift, PRN tylenol given with good effect. Droplet precautions maintained. UOP adequate. No BM this shift. She stated some nausea, PRN promethazine given with good effect.She was c/o some SOB, especially while ambulating, LS course with crackles. PRN neb tx given x2 withgood effect. She has been ambulating independently. Non stress test provided by Kevyn Thornton RN. She is resting between care, will continue to monitor. PLAN MOVING FORWARD: PRN neb tx Pain control encourage ambulation INDIVIDUALIZED FALL PREVENTION INTERVENTIONS: Patient-specific fall risk factors per assessment: [current deficits]: Unfamiliar evironment Assistance [level of assistance required for transfers and ambulation]: INDP Supervision [direct monitoring required during toileting and ADLs]: INDP Surveillance [continuous indirect monitoring]: Nurse knowledge exchange, purposeful rounding, environmental modifications (waste basket is out of the path and the IV tubing and cords are free from the floor), fall reduction program in place, lighting adjusted for task, bed in low position, wheels nataly d, side rails up (x2), nonskid socks worn OOB, no restraints, call light is within reach at all times, Patient-specific fall prevention interventions for sensory deficits provided, if applicable: [X] N/A CPG GOAL OUTCOME EVALUATION: Goal: Fall Prevention-Safe Patient Handling Outcome: Ongoing (Interventions Implemented as Appropriate) 08/02/19 0847 Camacho Fall Risk History of Falling 0 Secondary Diagnosis 15 Ambulatory Aids 0 Intravenous Therapy/Heparin/Saline Lock 20 Gait/Transferring 0 Mental Status 0 Score 35 OTHER Camacho Fall Risk Med Restraint Interventions Safety Promotion/Fall Prevention activity supervised;elopement precautions initiated;fall preventionprogram maintained;nonskid shoes/slippers when out of bed;safety round/check completed Positioning Body Position independent Activity Activity Type activity adjusted per tolerance;ambulated in room;ambulated in weber Activity Assistance Provided independent Assistive Device Utilized none Goal: Infection Control Outcome: Ongoing (Interventions Implemented as Appropriate) 08/02/19 0847 Safety Interventions Isolation Precautions droplet precautions maintained Infection Prevention environmental surveillance performed Coping Strategies Supportive Measures active listening utilized Goal: Interdisciplinary Rounds/Family Conf Outcome: Ongoing (Interventions Implemented as Appropriate) 08/02/19 1643 Interdisciplinary Rounds/Family Conf Participants patient;physician;nursing Med Student Progress Note - Héctor Addison Jose - 08/02/2019 6:19 AM EDT INPATIENT MEDICINE PROGRESS NOTE Patient info: Name: Shirelne Parks : 1985 Date of Admission: 07/31/2019 ( Hospital Day 0 days ) Responsible Attending:Chanel Schaefer III, MD ID: Shirlene Parks is a 34 y.o. female, , who is currently 30 weeks , hx of IVDU with previous endocarditis (now on suboxone) and treatment naive Hep C, asthma, current smoker, prior history of Stage IIa Hodgkin Lymphoma (chemotherapy and XRT), hypothyroidism who presents with fatigue, cough, fever, and SOB. Hospital Problem List: Active Hospital Problems Diagnosis ??? Pneumonia complicating Resolved Hospital Problems No resolved problems to display. 24 Hour Events/Subjective: - This morning still has difficulty breathing - Sinus congestion, coughing, rhinorrhea, facial tenderness is improved from yesterday - Maintaining SaO2s low 90s% on room air - Used PRN albuterol last night 9 PM once - Dysuria overnight without hematuria, vaginal discharge, erythema, itching. - Abdominal pain from yesterday resolved ROS: Denies diarrhea/vomiting/abdominal pain/constipation, muscle aches or weakness. Inpatient Medications: Scheduled Meds: ??? docusate sodium 100 mg Oral BID ??? FLUoxetine 20 mg Oral Daily ??? levothyroxine 75 mcg Oral QAM ? ? vitamin 27 & hcinqlx-czte-PV 1 tablet Oral Daily ??? cefTRIAXone 1 g Intravenous Q24H ??? sodium chloride 0.9 % (flush) 5 mL Intravenous BID ??? azithromycin 250 mg Oral Daily ??? metroNIDAZOLE 500 mg Oral BID ? ? dextromethorphan-guaiFENesin 10 mL Oral 4 Times Daily AC & HS ??? polyethylene glycoL 17 g Oral BID ??? buprenorphine-naloxone 8 mg of opiate Sublingual BID ??? lidocaine 1 patch Transdermal Q24H And ??? lidocaine 1 patch Transdermal Q24H Continuous Infusions: PRN Meds: albuteroL, promethazine, sodium chloride 0.9 % (flush), lidocaine, dextromethorphan-guaiFENesin, acetaminophen, phenol 1.4% Vitals: Last value Range last 24 hrs Temperature Temp: 36.8 ??C (98.2 ??F) Temp: [36.7 ??C (98.1 ??F)-37 ??C (98.6 ??F)] Heart Rate Heart Rate: 95 Heart Rate: [95] Blood Pressure BP: 106/63 BP: (92-106)/(46-63) Respiratory Rate Resp: 19 Resp: [16-19] SpO2 SpO2: 92 % SpO2: [91 %-96 %] Ins/Outs: Intake/Output Summary (Last 24 hours) at 08/02/2019 1102 Last data filed at 08/01/2019 1218 Gross per 24 hour Intake 360 ml Output 500 ml Net -140 ml Physical Exam: Gen: NAD, AAOx3, breathing comfortably on RA. Still coughing, but frequency and intensity improved from previous. HEENT: PERRLA, EOMI, sclera anicteric, OP clear, MMM. Facial sinus tenderness improved. Cardiac: RRR with normal S1/S2, no appreciable m/r/g; JVP not appreciated Pulm: Inspiratory crackles most prominent at right lower lung field. Decreased breath sounds on leftlower lung field. Diffuse noisy breathing. Abd: 30 weeks gravid uterus. Ext: No peripheral pitting edema. Skin: Intact with no rashes, petechiae, or ecchymoses Neuro: CN II-XII grossly intact; no focal deficits grossly noted. Labs: CBC: Recent Labs 08/02/19 0620 07/31/19 1645 07/04/19 WBC 14.5* 16.9* 14.1 HGB 11.9 12.3 11.7 PLATELET 260 292 308 Chemistry: Recent Labs 08/02/19 0620 07/31/19 1645 04/30/19 1725 NA 135 135 137 K 3.9 4.1 3.3* CL 105 102 104 CO2 19* 15* 22 BUN 4* 9 11 CREATININE 0.42* 0.55* 0.51* GLUCOSE 90 119 77 Recent Labs 08/02/19 0620 07/31/19 1645 04/30/19 1725 CALCIUM 8.6 9.2 9.0 LFT's: Recent Labs 04/09/19 1331 02/08/19 BILITOT 0.3 0.5 BILIDIR 0.1 0.2 ALBUMIN 3.9 4.1 ALKPHOS 59 99 ALT 38* 73 AST 33* 47 Coags: No results for input(s): PT, INR, PTT, FIBRINOGEN, DDIMER in the last 168 hours. Invalid input(s): THROMBIN TIME Cardiac enzymes: Recent Labs 07/31/19 1930 07/31/19 1645 TROPONINT <0.01 <0.01 Endocrine: Recent Labs 07/04/19 04/09/19 1331 02/08/19 TSH 2.33 1.64 3.846 Heme: No results for input(s): LDH, HAPTOGLOBIN, URICACID in the last 168 hours. Microbiology: SARS-COV2 RNA negative 07/30 Urine 07/30 Component Value Date/Time SPGRAVITYUA 1.014 08/02/2019 0907 PHUADIP 7.0 08/02/2019 0907 PROTEINUADIP Negative 08/02/2019 0907 GLUCOSEU Negative 08/02/2019 0907 KETONESUA Negative 08/02/2019 0907 UROBILIUADIP Normal 08/02/2019 0907 BLOODUADIP Negative 08/02/2019 0907 NITRATEUA Negative 08/02/2019 0907 LEUKOESTERUA Negative 08/02/2019 0907 WBCUA 3 07/31/2019 1928 BILIRUBINUA Negative 08/02/2019 0907 Pertinent Radiology/Diagnostic Studies: CXR PA/lateral 07/30 IMPRESSION Hazy increased lung markings laterally in the LEFT lower lobe; cannot exclude early pneumonia. No pleural effusion. No congestive heart failure. No other interval change. CXR PA/lateral 07/16 FINDINGS: Mild dependent changes. No confluent airspace opacity seen. Cardiomediastinal contours appear within normal limits. ?? IMPRESSION No acute cardiopulmonary process seen. Echo 07/24/19 ?? 1. The left ventricular chamber size is normal. Left ventricular wall thickness is normal. There is normal global left ventricular systolic function. The quantitative left ventricular ejection fraction by biplane Contreras's method is 62%. There are no left ventricular segmental wall motion abnormalities. 2. Right ventricular chamber size, wall thickness, and systolic function are within normal limits. The estimated pulmonary artery systolic pressure is 20 mmHg. 3. The left atrium is normal in size. The right atrium appears normal. 4. There is no hemodynamically significant valve disease. 5. See remainder of report for additional findings. Micro: Induced sputum culture 07/31 rare upper respiratory vadim Blood cultures 07/31 x 2 no growth (drawn after antibiotics started) Assessment/Plan: Shirlene Parks is a 34 y.o. female, , who is currently 30 weeks , hx of IVDU with previous endocarditis (now on suboxone) and treatment naive Hep C, asthma, current smoker, prior history of Stage IIa Hodgkin Lymphoma (chemotherapy and XRT), hypothyroidism who presents with fatigue, cough,fever, and SOB. This morning Shirlene still feels she still has difficulty breathing. However, her sinus congestion, rhinorrhea, coughing are improved from yesterday. She is tolerating the ceftriaxone and azithromycin well. Afebrile, leukocytosis downtrending, SaO2s are low 90s% on room air. Patient observed ambulating independently without oxygen requirement. Will plan to switch to cefpodoxime today and continue azithromycin. Will follow-up this afternoon for potential late discharge today vs. Early tomorrow morning. This morning complaining of dysuria (previous UA not reflexed from 07/30) without hematuria, vaginalitching, discharge, erythema. Will perform additional UA with reflex culture today. # CAP complicating # Asthma # Chest pain - Switch from Ceftriaxone to cefpodoxime and continue Azithromycin - Albuterol nebulizers as needed - Consider smoking cessation counseling consult. No smoking aides. - Chloraseptic spray for throat pain - Lidocaine patch for chest pain 2/ cough - Induced sputum culture 07/31 rare upper respiratory vadim - Blood cultures 07/31 x 2 no growth (drawn after antibiotics started) # Dysuria - Obtain UA with reflex culture today, last UA from 07/30 was not reflexed # # Vaginal leaking - OB aware - The NST is reactive and the tracing is reassuring 07/31 - Avoid teratogenic medications - Continue PO metronidazole for bacterial vaginosis (+ clue cells on wet prep 07/31) # Hx of opioid use disorder - Continue Suboxone 8mg BID. # Treatment naive Hep C - Pt aware and wants to receive treatment after # Hypothyroidism - Continue levothyroxine 75mcg ?? IV access: pIV ?? DVT PPX: ambulatory ?? PT/OT required: none ?? Diet: regular ?? Héctor Addison MS4 #[id number] Plan of Care - Tulio Hines RN - 08/02/2019 6:04 AM EDT Problem: Patient Care Overview Goal: Plan of Care Review Outcome: Ongoing (Interventions Implemented as Appropriate) 08/01/19 1523 08/01/197 Coping/Psychosocial Plan Of Care Reviewed With -- patient Plan of Care Review Progress progress toward functional goals as expected -- OUTCOME EVALUATION NOTE: OUTCOME SUMMARY: Patient rested between care. Ambulated in hallway independently. Given albuterol inhaler for difficulty breathing. Tolerating cups of ice cream and other snacks. Patient is beginning to complain of discomfort while urinating, will discuss with team. Otherwise, uneventful shift. All needs met. PLAN MOVING FORWARD: Continue current plan, encourage mobilization, encourage PO intake, monitor for pain and nausea, monitor respiratory needs, INDIVIDUALIZED FALL PREVENTION INTERVENTIONS: Medium Fall Risk, Patient-specific fall risk factors per assessment: [current deficits]: IV catheter, SCD's, 2 or moremedical diagnosis, , respiratory illness, Assistance [level of assistance required for transfers and ambulation]: Independent, Supervision [direct monitoring required during toileting and ADLs]: Independent, Surveillance [continuous indirect monitoring]: Purposeful rounding, bed alarm, chair alarm, NKE at bedside, bed in low position, nonskid shoes when OOB, personal items within reach, Patient-specific fall prevention interventions for sensory deficits provided, if applicable: [X] No CPG GOAL OUTCOME EVALUATION: Goal: Individualization & Mutuality Outcome: Ongoing (Interventions Implemented as Appropriate) 08/01/191521 Individualization Patient Specific Goals none stated at this time Goal: Fall Prevention-Safe Patient Handling Outcome: Ongoing (Interventions Implemented as Appropriate) 08/01/19212608/02/19436 Camacho Fall Risk History of Falling 0 -- Secondary Diagnosis 15 -- Ambulatory Aids 0 -- Intravenous Therapy/Heparin/Saline Lock 20 -- Gait/Transferring 0 -- Mental Status 0 -- Score 35 -- OTHER Camacho Fall Risk Med -- Restraint Interventions Safety Promotion/Fall Prevention -- activity supervised;fall prevention program maintained;safety round/check completed;nonskid shoes/slippers when out of bed Positioning Body Position -- independent Activity Activity Type -- ambulated to bathroom Activity Assistance Provided -- independent Assistive Device Utilized -- none Goal: Infection Control Outcome: Ongoing (Interventions Implemented as Appropriate) 08/01/19212608/02/19436 Safety Interventions Isolation Precautions -- droplet precautions maintained Infection Prevention -- environmental surveillance performed;equipment surfaces disinfected;rest/sleep promoted;single patient room provided Coping Strategies Supportive Measures active listening utilized;counseling provided;decision- making supported;goal setting facilitated;positive reinforcement provided;problem solving facilitated;relaxation techniques promoted;self-care encouraged;verbalization of feelings encouraged -- Goal: Discharge Needs Assessment Outcome: Ongoing (Interventions Implemented as Appropriate) 08/01/191521 Living Environment Transportation Available family or friend will provide Goal: Interdisciplinary Rounds/Family Conf Outcome: Ongoing (Interventions Implemented as Appropriate) 08/01/191521 Interdisciplinary Rounds/Family Conf Participants patient;nursing Plan of Care - Alisha lEi RN - 08/01/2019 3:29 PM EDT Problem: Patient Care Overview Goal: Plan of Care Review Outcome: Ongoing (Interventions Implemented as Appropriate) 08/01/19 1523 Coping/Psychosocial Plan Of Care Reviewed With patient Plan of Care Review Progress progress toward functional goals as expected OUTCOME EVALUATION NOTE: OUTCOME SUMMARY: Pt had 4-6/10 pain managed with tylenol and suboxone. Phlebotomy to bedside for blood cultures. Pt very anxious and c/o'ing of difficulty breathing. PRN nebulizer given and Robitussin with good effect.Pt c/o'ed of cramping in upper abdomen. MD notified and to bedside to assess. Lower respiratory sample sent to lab. Droplet precautions initiated. Friend to bedside in afternoon. Suboxone re- timed for earlier in the evening per pt request to allow for better sleep. PLAN MOVING FORWARD: Pt had 4-6/10 pain managed with tylenol and suboxone. Monitor need for Robitussin and nebulizers. INDIVIDUALIZED FALL PREVENTION INTERVENTIONS: High Fall Risk (first 24 hours) Patient-specific fall risk factors per assessment: [current deficits]: Patient has a history of falling, 2 or more active diagnoses, recent surgery, has an actively infusing IV line, uses an ambulatoryaid, has generalized weakness (or impairment), tubes/drains, mahoney catheter, pain, opioids for pain,is taking (anti-arrhythmic, anti-hypertensive, cardiac, anti-depressants, anti-psychotic, sleep aids, anti-histamines), has sensory deficits ([place], wears glasses, tactile deficits), forgets limitations,problems (urge/stress incontinence, diarrhea, nausea/vomiting, spine precautions) Assistance [level of assistance required for transfers and ambulation]: sba Supervision [direct monitoring required during toileting and ADLs]: Eyes on Surveillance [continuous indirect monitoring]: Hourly rounding, observation by staff, NKE at bedside. Assistive device, bed/chair alarm, family at bedside, commode/urinal/bedpan at bedside, environmental modifications (reduce clutter, lighting adjusted for safety, IV tubing and cords are free from thefloor), glasses at bedside, hearing aids in or at the bedside, nonskid shoes/slippers when out of bed, sitter at bedside, bed in low position, upper position siderails raised x2 (x3), wheels locked, call light in reach, ID bands on, yellow falls ID band on Patient-specific fall prevention interventions for sensory deficits provided, if applicable: n/a CPG GOAL OUTCOME EVALUATION: Initial Assessments - Elin Arora MSW - 08/01/2019 9:36 AM EDT Office of Care Management Assessment Medical record reviewed. Plan of care and patient status discussed with direct care RN and/or Care Team in multidisciplinary rounds. Screenin y.o. female here for pnewmonia. Present on Admission: ??? Pneumonia complicating Patient has not been admitted to a hospital within the last 30 days. Information known about that admission: NA. Patient receiving hospital care under Observation status. Admission order reviewed. Primary Insurance on file: [employer] [facility] Secondary Insurance on file: N/A Primary care provider on file: PINKY Crum [phone] Advance Directive on file and Code Status: <no information>, Full Code Patient declines to identify surrogate decision maker, declines offer of NH AD Booklet. Patient???s Functional Status: Stand by, 1 assist. Living Situation: Patient lives in apartment. No steps into building, 20 steps up to apartment. 1 step up to bathroom and 1 step up to bedroom. [address] [address] Supports: Mother, second mother Hina, 1st [employer] in [place], [place]. Assessment: Patient with no apparent RNCM/SW needs at this time. No housing, transportation, insurance, resources concerns identified at this time. Supports in place to achieve a safe post-hospital transition. No identified barriers to accessing necessary care and/or follow-up after discharge. Plan: Patient to d/c to home via private vehicle with Mother when medically ready. sustainable agriculture specialist/[employer] Machine Operator will continue to follow patient???s progress and remain available if situation changes for coordination of care, psychosocial support and/or discharge planning. MANDI GIL Pager [phone] [address] [phone] Med Student Progress Note - Héctor Addison Y - 08/01/2019 6:41 AM EDT INPATIENT MEDICINE PROGRESS NOTE Patient info: Name: Shirlene Parks : 1985 Date of Admission: 07/31/2019 ( Hospital Day 0 days ) Responsible Attending:Sole Strong MD ID: Shirlene Parks is a 34 y.o. female, , who is currently 30 weeks , hx of IVDU with previous endocarditis (now on suboxone) and treatment naive Hep C, asthma, current smoker, prior history of Stage IIa Hodgkin Lymphoma (chemotherapy and XRT), hypothyroidism who presents with fatigue, cough, fever, and SOB. Hospital Problem List: Active Hospital Problems Diagnosis ??? Pneumonia complicating Resolved Hospital Problems No resolved problems to display. 24 Hour Events/Subjective: - Very sleepy, difficulty participating with exam arrived to floor early AM - Voiding independently - PRN tylenol for headache ROS: Denies diarrhea/vomiting/abdominal pain/constipation, muscle aches or weakness. Inpatient Medications: Scheduled Meds: ??? buprenorphine-naloxone 8 mg of opiate Sublingual BID ??? docusate sodium 100 mg Oral BID ??? FLUoxetine 20 mg Oral Daily ??? levothyroxine 75 mcg Oral QAM ??? polyethylene glycoL 17 g Oral BID ? ? vitamin 27 & [id number] 1 tablet Oral Daily ??? cefTRIAXone 1 g Intravenous Q24H ??? sodium chloride 0.9 % (flush) 5 mL Intravenous BID ??? azithromycin 250 mg Oral Daily ??? lidocaine 1 patch Transdermal Q24H And ??? lidocaine 1 patch Transdermal Q24H Continuous Infusions: PRN Meds: albuteroL, promethazine, sodium chloride 0.9 % (flush), lidocaine, acetaminophen, phenol 1.4% Vitals: Last value Range last 24 hrs Temperature Temp: 36.6 ??C (97.9 ??F) Temp: [36.5 ??C (97.7 ??F)-36.9 ??C (98.4 ??F)] Heart Rate Heart Rate: 86 Heart Rate: [72-99] Blood Pressure BP: 102/51 BP: (98-112)/(51-68) Respiratory Rate Resp: 16 Resp: [16-28] SpO2 SpO2: 94 % SpO2: [94 %-99 %] Ins/Outs: Intake/Output Summary (Last 24 hours) at 08/01/2019 1026 Last data filed at 08/01/2019 0900 Gross per 24 hour Intake 820 ml Output 775 ml Net 45 ml Physical Exam: Gen: NAD, AAOx3, breathing comfortably on RA. Coughing significantly. HEENT: PERRLA, EOMI, sclera anicteric, OP clear, MMM. Maxillary sinus tenderness. Cardiac: RRR with normal S1/S2, no appreciable m/r/g; JVP not appreciated Pulm: Difficult to assess as patient very sleepy. Diffuse lower lobe decreased breath sounds. Abd: 30 weeks gravid uterus. Ext: Minimal peripheral pitting edema. Skin: Intact with no rashes, petechiae, or ecchymoses Neuro: CN II-XII grossly intact; no focal deficits grossly noted. Labs: CBC: Recent Labs 07/31/19164407/04/19 04/30/19 172 WBC 16.9* 14.1 9.3 HGB 12.3 11.7 12.1 PLATELET 292 308 275 Chemistry: Recent Labs 07/31/19164404/30/19 17210/22/182049 NA 135 137 138 K 4.1 3.3* 4.3 CL 102 104 98 CO2 15* 22 27 BUN 9 11 17 CREATININE 0.55* 0.51* 0.78 GLUCOSE 119 77 98 Recent Labs 07/31/19 16404/30/19 17210/22/182049 CALCIUM 9.2 9.0 9.7 LFT's: Recent Labs 04/09/19 1331 02/08/19 BILITOT 0.3 0.5 BILIDIR 0.1 0.2 ALBUMIN 3.9 4.1 ALKPHOS 59 99 ALT 38* 73 AST 33* 47 Coags: No results for input(s): PT, INR, PTT, FIBRINOGEN, DDIMER in the last 168 hours. Invalid input(s): THROMBIN TIME Cardiac enzymes: Recent Labs 07/31/19 1930 07/31/19 1645 TROPONINT <0.01 <0.01 Endocrine: Recent Labs 07/04/19 04/09/19 1331 02/08/19 TSH 2.33 1.64 3.846 Heme: No results for input(s): LDH, HAPTOGLOBIN, URICACID in the last 168 hours. Microbiology: SARS-COV2 RNA negative 07/30 Urine 07/30 Component Value Date/Time SPGRAVITYUA 1.026 07/31/20191927 PHUADIP 5.5 07/31/20191927 PROTEINUADIP Negative 07/31/20191927 GLUCOSEU Negative 07/31/20191927 KETONESUA Trace (A) 07/31/20191927 UROBILIUADIP Normal 07/31/20191927 BLOODUADIP Negative 07/31/20191927 NITRATEUA Negative 07/31/20191927 LEUKOESTERUA Trace (A) 07/31/20191927 WBCUA 3 07/31/20191927 BILIRUBINUA Small (A) 07/31/20191927 Pertinent Radiology/Diagnostic Studies: CXR PA/lateral 07/30 IMPRESSION Hazy increased lung markings laterally in the LEFT lower lobe; cannot exclude early pneumonia. No pleural effusion. No congestive heart failure. No other interval change. CXR PA/lateral 07/16 FINDINGS: Mild dependent changes. No confluent airspace opacity seen. Cardiomediastinal contours appear within normal limits. ?? IMPRESSION No acute cardiopulmonary process seen. Echo 07/24/19 ?? 1. The left ventricular chamber size is normal. Left ventricular wall thickness is normal. There is normal global left ventricular systolic function. The quantitative left ventricular ejection fraction by biplane Contreras's method is 62%. There are no left ventricular segmental wall motion abnormalities. 2. Right ventricular chamber size, wall thickness, and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 worsening including nasal congestion, occasional cough, and general malaise. Pt was ruled out for Covid-19 yesterday in [place] and her OB is here and wanted her evaluated in this ED today. Pt is tired appearing, with a congested respiratory pattern,and clear lungs. documented in this encounter Plan of Treatment Not on filedocumented as of this encounter Procedures Procedure Name Priority Date/Time Associated Comments Diagnosis URINALYSIS WITH Routine 08/02/2019 9:07 AM Result s for this REFLEX CULTURE EDT procedure are in the results section. HEMOGRAM Routine 08/02/2019 6:20 AM Results f or this EDT procedure are i n the results section. DIFFERENTIAL, Routine 08/02/2019 6:20 AM Results for this AUTOMATED EDT procedure are i n the results section. HC VENIPUNCTURE Routine 08/02/2019 6:20 AM EDT BASIC METABOLIC PANEL Routine 08/02/2019 6:20 AM Results for this (NON-FASTING) EDT procedure are in the results section. HC SPUTUM CULTURE Routine 08/01/2019 12:35 Result s for this PM EDT procedure are i n the results section. HC BLOOD CULTURE- Routine 08/01/2019 11:13 Result s for this AM EDT procedure are i n the results section. HC BLOOD CULTURE- Routine 08/01/2019 11:03 Result s for this AM EDT procedure are i n the results section. XR CHEST PA AND STAT 07/31/2019 8:57 PM Result s for this LATERAL EDT procedure are i n the results section. RAPID COVID-19 PCR STAT 07/31/2019 8:14 PM Res ults for this ([facility]) EDT procedure are in the results section. HC TROPONIN T STAT 07/31/2019 7:30 PM Results for this EDT procedure are i n the results section. URINALYSIS STAT 07/31/2019 7:28 PM Results f or this MICROSCOPIC EXAM EDT procedure a re in the results section. URINALYSIS WITH STAT 07/31/2019 7:28 PM Result s for this REFLEX CULTURE EDT procedure are in the results section. SCAN, PERIPHERAL STAT 07/31/2019 4:45 PM Resul ts for this BLOOD EDT procedure are i n the results section. HEMOGRAM STAT 07/31/2019 4:45 PM Results f or this EDT procedure are i n the results section. DIFFERENTIAL, STAT 07/31/2019 4:45 PM Results for this AUTOMATED EDT procedure are i n the results section. GOLD TUBE HOLD STAT 07/31/2019 4:45 PM Results for this EDT procedure are i n the results section. BLUE TUBE HOLD STAT 07/31/2019 4:45 PM Results for this EDT procedure are i n the results section. HC CBC,PLT & AUTO STAT 07/31/2019 4:45 PM DIFF EDT HC TROPONIN T STAT 07/31/2019 4:45 PM Results for this EDT procedure are i n the results section. BASIC METABOLIC PANEL STAT 07/31/2019 4:45 PM Results for this (NON-FASTING) EDT procedure are in the results section. EKG 12-LEAD STAT 07/31/2019 4:39 PM Results f or this EDT procedure are i n the results section. documented in this encounter Results Urinalysis with reflex Culture (08/02/2019 9:07 AM EDT) [facility] Method Time Signature Glucose UA Negative Negative [facility] Protein UA Negative Negative [facility] mg/dL [facility] Bilirubin UA Negative Negative [facility] mg/dL [facility] Comment: Clinical correlation required for positi ve Urine Bilirubin results as false positive may occur with some drugs and d rug related products. If a false positive is suspected a serum total bili lópez should be considered if clinically indicated. Urobilinogen UA Normal Normal mg/dL [facility] pH UA 7.0 5.0 - 8.0 [facility] Blood UA Negative Negative mg/dL [facility] Ketones UA Negative Negative mg/dL [facility] Nitrite UA Negative Negative [facility] Leukocytes UA Negative Negative [facility] LABORATORY Appearance UA Clear Clear [facility] LABORATORY Spec [place] UA 1.014 1.006 - 1.030 [facility] Color UA Yellow Yellow [facility] Culture Reflexed No [facility] Specimen Anatomical Collection Method Collection Time Receive d Time (Source) Location / / Volume Laterality Urine specimen 08/02/2019 9:07 AM 020 9:31 (specimen) EDT AM EDT Resulting Agency Comment Spec In Lab Chanel Schaefer III, MD URINE ORDERABLES Performing Organization Address City/State/[place] [address] (ABNORMAL) Differential, Automated (08/02/2019 6:20 AM EDT) [facility] gist Method Time Signature Neutrophils % 74.4 % [facility] Neutr Abs (ANC) 10.76 (H) 1.70 - [facility] 6.10 [facility] x10(3)/[facility] LABORATORY Lymphocytes % 13.1 % [facility] Lymphocytes Abs 1.9 0.9 - 3.2 [facility] x10(3)/[facility] LABORATORY Monocytes % 9.5 % [facility] Monocyte Abs 1.4 (H) 0.3 - 0.9 [facility] x10(3)/[facility] LABORATORY Eosinophils % 1.9 % [facility] Eosinophils Abs 0.3 0.0 - 0.4 [facility] x10(3)/[facility] LABORATORY Basophils % 0.3 % [facility] Basophils Abs 0.0 0.0 - 0.1 [facility] x10(3)/[facility] LABORATORY Immature Gran % 0.80 % [facility] Comment: Immature granulocytes(IG's)percentage an d absolute count will include metamyelocytes, myelocytes, and promyelo cytes. Blood smears from CBCs yielding IG's will be scanned manually for concor dance. If this scan disagrees with the automated IG or if promyelocytes are not ed, a manual differential will be performed. Ayah Gran Abs 0.12 (H) 0.00 - 0.04 x10(3)/[facility] LABORATORY Specimen Anatomical Collection Method Collection Time Receive d Time (Source) Location / / Volume Laterality Blood specimen 08/02/2019 6:20 AM 020 6:36 (specimen) EDT AM EDT Resulting Agency Comment Spec In Lab Beck Santos MD HEMATOLOGY ORDERABLES Performing Organization Address City/State/[place] [address] (ABNORMAL) Hemogram (08/02/2019 6:20 AM EDT) Analysis Performed At Patho logist Time Signature WBC 14.5 (H) 4.0 - 9.5 [facility] x10(3)/[facility] LABORATORY RBC 3.68 (L) 4.00 - [facility] BH[facility] 5.21 [facility] x10(6)/[facility] LABORATORY Hemoglobin 11.9 11.7 - [facility] 15.5 gm/dL [facility] Hematocrit 36.3 35.7 - [facility] 45.8 % [facility] MCV 98.6 (H) 82.6 - [facility] 94.4 [facility] LABORATORY MCH 32.3 (H) 27.1 - [place] [facility] 32.0 pg [facility] MCHC 32.8 31.7 - [facility] 35.0 gm/dL [facility] Platelets 260 145 - 357 [facility] x10(3)/[facility] LABORATORY RDWSD 46.9 (H) 37.0 - [facility] 46.0 [facility] RDWCV 13.0 11.5 - [facility] 14.1 % [facility] MPV 10.0 7.6 - 12.9 [facility] LABORATORY nRBC % Auto 0.0 % [facility] nRBC Abs Auto 0.000 0.000 - [facility] 0.000 [facility] x10(3)/[facility] LABORATORY Specimen Anatomical Collection Method Collection Time Receive d Time (Source) Location / / Volume Laterality Blood specimen 08/02/2019 6:20 AM 020 6:36 (specimen) EDT AM EDT Resulting Agency Comment Spec In Lab Beck Santos MD HEMATOLOGY ORDERABLES Performing Organization Address City/State/[place] [address] (ABNORMAL) Basic Metabolic Panel (non-fasting) (08/02/2019 6:20 AM EDT) athologist Signature Glucose Lvl 90 65 - 199 [facility] mg/dL [facility] Comment: Diabetes: >=200 mg/dL plus symp toms BUN 4 (L) 8 - 18 mg/dL [facility] Creatinine 0.42 (L) 0.70 - 1.20 mg/dL [facility] Sodium 135 135 - 145 mmol/L [facility] Potassium 3.9 3.5 - 5.0 mmol/L [facility] Comment: Please note: ??Patients with WBC >100,00 0 may have falsely elevated Potassium levels. ??For accurate Potassium quantif ication in these patients send serum separator tube (gold top) for subsequent determinations. ??Contact the Clinical Chemistry Laboratory if there are any qu estions. Chloride 105 98 - 107 mmol/L [facility] CO2 19 (L) 22 - 31 mmol/L [facility] Anion Gap 11 5 - 15 mmol/L [facility] LABOR[facility]ORY Calcium 8.6 8.5 - 10.5 mg/dL [facility] Estimated GFR 135 >=60 mL/min/1.73 m?? [facility] Comment: The eGFR was calculated using the CKD-EP I equation. As with all creatinine based estimates of kidney function, eGFR values calculated with the CKD-EPI equation are not accurate in patients wi th acute kidney failure, extremes of body mass or the acutely ill. [email or web address] eGFR 156 >=60 mL/min/1.73 m?? [facility] Comment: The eGFR was calculated using the CKD-EP I equation. As with all creatinine based estimates of kidney function, eGFR values calculated with the CKD-EPI equation are not accurate in patients wi th acute kidney failure, extremes of body mass or the acutely ill. [email or web address]/[facility] Specimen Anatomical Collection Method Collection Time Receive d Time (Source) Location / / Volume Laterality Blood specimen 08/02/2019 6:20 AM 020 6:36 (specimen) EDT AM EDT Resulting Agency Comment Spec In Lab Beck Santos MD CHEMISTRY ORDERABLES Performing Organization Address City/[facility] Phon e Number [address] Lower Respiratory Culture Sputum Expectorated (08/01/2019 12:35 PM EDT) Component Value Ref Test Analysis Performed At [facility] Range Method Time Signature Lower Few mixed [place] Respiratory bacterial BHARATI Culture morphotypes [facility] HOSPITAL normal upper LABORATORY respiratory vadim Gram Stain No Neutrophils seen. [place] Few squamous epithelial cells seen [facility] Rare mixed bacterial morphotypes suggestive of n ormal upper respiratory vadim [facility] Specimen Anatomical Collection Method Collection Time Receive d Time (Source) Location / / Volume Laterality Sputum specimen 08/01/2019 12:35 08/01/19 20 3:47 (specimen) PM EDT PM EDT Resulting Agency Comment Spec In Lab Sole Strong MD MICROBIOLOGY - GENERAL ORDER MICHEL Performing Organization Address City/[facility] Phon e Number [address] Blood culture (08/01/2019 11:13 AM EDT) [facility] Method Time Signature Blood Culture No growth [place] at 5 days. [facility] Specimen Anatomical Collection Method Collection Time Receive d Time (Source) Location / / Volume Laterality Blood specimen STRUCTURE OF LEFT 08/01/2019 11:13 06/07/2019 (specimen) HAND / Unknown AM EDT 11:57 AM EDT Comment: 1/2 Resulting Agency Comment Spec In Lab Sole Strong MD MICROBIOLOGY - BLOOD ORDERAB LES Performing Organization Address City/State/ZIP Code Phon e Number [place] [id number] Blood culture (08/01/2019 11:03 AM EDT) [facility] gist Method Time Signature Blood Culture No growth [place] at 5 days. [facility] Specimen Anatomical Location Collection Method Collection Time Received Time (Source) / Laterality / Volume Blood specimen ANTECUBITAL REGION 08/01/2019 11:03 (specimen) STRUCTURE / Unknown AM EDT 11:57 AM EDT Comment: 12 Resulting Agency Comment Spec In Lab Sole Strong MD MICROBIOLOGY - BLOOD ORDERAB LES Performing Organization Address City/State/ZIP Code Phon e Number [place] [id number] XR Chest PA & Lateral (Generic) (07/31/2019 8:57 PM EDT) Anatomical Region Laterality Modality Chest N/A Digital Radiography Specimen (Source) Anatomical Location Collection Method / Collectio n Time Received Time / Laterality Volume Impressions 07/31/2019 8:59 PM EDT Hazy increased lung markings laterally in the LEFT lower lobe; cannot exclude early pneumonia. No pleural effusion. No congestive heart failure. No other interval change. Thank you for letting us participate in the care of this patient. For questions regarding this report, please contact e number below. ? Narrative 07/31/2019 8:59 PM EDT EXAMINATION: XR CHEST PA AND LATERAL (GENERIC) CLINICAL HISTORY: SOB TECHNIQUE: PA and lateral views of the chest COMPARISON: 07/16/2018 FINDINGS: Hazy increased lung markings laterally i n the LEFT lower lobe; cannot exclude early pneumonia. No pleural effusion. No congestive heart failure. No other interval change. Procedure Note Pilo Vieyra MD - 07/31/2019Form atting of this note might be different from the original. EXAMINATION: XR CHEST PA AND LATERAL (GE NERIC) CLINICAL HISTORY: SOB TECHNIQUE: PA and lateral views of the chest COMPARISON: 07/16/2018 FINDINGS: Hazy increased lung markings laterally i n the LEFT lower lobe; cannot exclude early pneumonia. No pleural effusion. No congestive heart failure. No other interval change. IMPRESSION Hazy increased lung markings laterally i n the LEFT lower lobe; cannot exclude early pneumonia. No pleural effusion. No congestive heart failure. No other interval change. Thank you for letting us participate in the care of this patient. For questions regarding this report, please contact e number below. Electronically signed by: Pilo Estrada , [facility] ([phone]), at 07/31/2019 8:59 PM Chandni Melissa MD IMG DX ORDERABLES COVID-19 PCR (07/31/2019 8:14 PM EDT) [facility] Method Time Signature SARS-CoV-2 Not Detected Not Detected [place] RNA PCR [facility] Comment: This result should be interpreted in com bination with the clinical observations, patient history and epidem iological information. For testing of asymptomatic individuals, assay performa nce characteristics and clinical utility have not been evaluated. Testing for SARS-CoV-2 (Severe acute respiratory syndrome coronavirus 2, form erly known as 2019 novel coronavirus or 2019-nCoV) to aid in the diagnosis of CO VID-19 is performed using the Simplexa COVID-19 Direct Assay by [employer] as authorized by the FDA issued Emergency Use Authorization (EUA). This assay is intended for In-vitro Diagnostic (IVD) use with nasopharyngeal swabs collected from individuals meeting the CDC criteria for testing. e assay is performed based on the instructions for use and additional guid ance provided by the FDA. Testing is performed in the Microbiology Laboratory within the Department of Pathology and Laboratory Medicine at [facility], certified under the Clinical Laboratory Improvement Amendmen ts of 1988 (CLIA), 42 U.S.C. section 263a, to perform high complexity tests. Assay performance has been verified according to clinical laboratory regulat ory requirements. Test results are provided above. A resul t of Not Detected indicates that the viral RNA target is not present but does not preclude SARS-CoV-2 infection. False negative results may occur if a sp ecimen is improperly collected, transported or handled; if amplification inhibitors are present; or if inadequate numbers of viral particles ar e present in the specimen. A result of Detected suggests a current or recent infection and the patient is presumed to be infected. Positive and negative pr edictive values for this test are highly dependent on disease prevalence. A result of Invalid indicates the inability to conclusively determine the presence or absence of SARS-CoV-2 RNA in the sample which can be due to a vari ety of factors. Recollection is recommended in the case of an invalid re sult. CDC COVID-19 criteria for testing on hum an specimens and clinical management guidance information are available at th e CDC Coronavirus Disease 2019 (COVID-19) webpage under Information fo r Healthcare Professionals (https://www.cdc.gov/coronavirus/2019-nc ov/hcp/index.html). SARS-CoV-2 Source PHARMACOLOGY PROFESSOR Swab [facility] Specimen (Source) Anatomical Collection Method Collection Time Re ceived Time Location / / Volume Laterality Nasopharyngeal swab 07/31/2019 8:14 07/30 (specimen) PM EDT 8:38 PM EDT Comment: Symptoms->Surveillance Resulting Agency Comment Spec In Lab Genet Bella MD MICROBIOLOGY - GENERAL ORDER MICHEL Performing Organization Address City/State/[place] [address] Troponin (07/31/2019 7:30 PM EDT) P athologist Signature Troponin-T <0.01 0.00 - 0.00 [facility] ng/mL [facility] Comment: The 99th percentile for Troponin T is le ss than 0.01 ng/mL, any detectable cTnT concentration using this assay should be considered elevated. According to the third universal definit ion of myocardial infarction the following criteria with a clinical prese ntation consistent with acute myocardial ischemia meets the diagnosis for a myocardial infarction (MD). Detection of a rise and/or fall of [...] additional sample may be indicated. Reference: Third [place] Definition of Myocardial Infarction. Journal of the [place] [employer] 2012;60:1581-98 Specimen Anatomical Collection Method Collection Time Receive d Time (Source) Location / / Volume Laterality Blood specimen 07/31/2019 7:30 PM 020 7:56 (specimen) EDT PM EDT Resulting Agency Comment Spec In Lab Genet Bella MD CHEMISTRY ORDERABLES Performing Organization Address City/State/[place] [address] (ABNORMAL) Urinalysis Microscopic Exam (07/31/2019 7:28 PM EDT) [facility] gist Method Time Signature RBC UA 1 0 - 4 [facility] /[facility]ORY WBC UA 3 0 - 5 [facility] /[facility]ORY Bacteria UA Few (A) None /HPF [facility] Squam Epith 1 <=4 /HPF [facility] Hyaline Cast 6 (H) 0 - 2 [facility] /F [facility] CaOx Darby UA Moderate (A) None /HPF [facility] Specimen Anatomical Collection Method Collection Time Receive d Time (Source) Location / / Volume Laterality Urine specimen 07/31/2019 7:28 PM 020 7:47 (specimen) EDT PM EDT Resulting Agency Comment Spec In Lab Kylie Bustos MD URINE ORDERABLES Performing Organization Address City/State/ZIP Code Phon e Number [address] (ABNORMAL) Urinalysis with reflex Culture (07/31/2019 7:28 PM EDT) [facility] Method Time Signature Glucose UA Negative Negative [facility] mg/dL [facility] Protein UA Negative Negative [facility] mg/dL [facility] Bilirubin UA Small (A) Negative [facility] mg/dL [facility] Comment: Clinical correlation required for positi ve Urine Bilirubin results as false positive may occur with some drugs and d rug related products. If a false positive is suspected a serum total bili lópez should be considered if clinically indicated. Urobilinogen UA Normal Normal mg/dL [facility] pH UA 5.5 5.0 - 8.0 [facility] Blood UA Negative Negative mg/dL [facility] Ketones UA Trace (A) Negative mg/dL [facility] Nitrite UA Negative Negative [facility] Leukocytes UA Trace (A) Negative [facility] LABORATORY Appearance UA Clear Clear [facility] LABORATORY Spec [place] UA 1.026 1.006 - 1.030 [facility] Color UA Dark Yellow Yellow [facility]ATORY Culture Reflexed No [facility] Specimen Anatomical Collection Method Collection Time Receive d Time (Source) Location / / Volume Laterality Urine specimen 07/31/2019 7:28 PM 020 7:47 (specimen) EDT PM EDT Resulting Agency Comment Spec In Lab Chandni Melissa MD URINE ORDERABLES Performing Organization Address City/[facility]/ZIP Code Phon e Number [address] Scan, Peripheral Blood (07/31/2019 4:45 PM EDT) [facility] Method Time Signature Plat Estimate Normal [facility] RBC Morphology Abnormal [facility] Polychromasia Present >5/HPF [facility] Specimen Anatomical Collection Method Collection Time Receive d Time (Source) Location / / Volume Laterality Blood specimen 07/31/2019 4:45 PM 020 4:51 (specimen) EDT PM EDT Resulting Agency Comment Spec In Lab Kylie Bustos MD HEMATOLOGY ORDERABLES Performing Organization Address City/[facility]/[place] [address] Gold Tube HOLD (07/31/2019 4:45 PM EDT) P athologist Signature Gold Hold Sample in [facility] LABORATORY Specimen Anatomical Collection Method Collection Time Receive d Time (Source) Location / / Volume Laterality Blood specimen Venous Draw / 07/31/2019 4:45 PM 2019 4:52 (specimen) Unknown EDT PM EDT Kylie Bustos MD CHEMISTRY ORDERABLES Performing Organization Address City/[facility]/ZIP Code Phon e Number [address] Blue Tube HOLD (07/31/2019 4:45 PM EDT) P athologist Signature Blue Hold Sample in [facility] LABORATORY Specimen Anatomical Collection Method Collection Time Receive d Time (Source) Location / / Volume Laterality Blood specimen Venous Draw / 07/31/2019 4:45 PM 2019 4:52 (specimen) Unknown EDT PM EDT Kylie Bustos MD HEMATOLOGY ORDERABLES Performing Organization Address City/[facility]/[place] [address] (ABNORMAL) Differential, Automated (07/31/2019 4:45 PM EDT) [facility] gist Method Time Signature Neutrophils % 73.8 % [facility] LABORATORY Neutr Abs (ANC) 12.49 (H) 1.70 - [facility] 6.10 [facility] x10(3)/[facility] LABORATORY Lymphocytes % 14.8 % [facility] LABORATORY Lymphocytes Abs 2.5 0.9 - 3.2 [facility] x10(3)/[facility] LABORATORY Monocytes % 9.5 % [facility] LABORATORY Monocyte Abs 1.6 (H) 0.3 - 0.9 [facility] x10(3)/[facility] LABORATORY Eosinophils % 0.6 % [facility] LABORATORY Eosinophils Abs 0.1 0.0 - 0.4 [facility] x10(3)/[facility] LABORATORY Basophils % 0.4 % [facility] LABORATORY Basophils Abs 0.1 0.0 - 0.1 [facility] x10(3)/[facility] LABORATORY Immature Gran % 0.90 % [facility] LABORATORY Comment: Immature granulocytes(IG's)percentage an d absolute count will include metamyelocytes, myelocytes, and promyelo cytes. Blood smears from CBCs yielding IG's will be scanned manually for concor dance. If this scan disagrees with the automated IG or if promyelocytes are not ed, a manual differential will be performed. Ayah Gran Abs 0.15 (H) 0.00 - 0.04 x10(3)/[facility] LABORATORY Specimen Anatomical Collection Method Collection Time Receive d Time (Source) Location / / Volume Laterality Blood specimen 07/31/2019 4:45 PM 020 4:51 (specimen) EDT PM EDT Resulting Agency Comment Spec In Lab Kylie Bustos MD HEMATOLOGY ORDERABLES Performing Organization Address City/State/[place] [address] (ABNORMAL) Hemogram (07/31/2019 4:45 PM EDT) Analysis Performed At Patho logist Time Signature WBC 16.9 (H) 4.0 - 9.5 [facility] x10(3)/[facility] LABORATORY RBC 3.86 (L) 4.00 - [facility] 5.21 [facility] x10(6)/[facility] LABORATORY Hemoglobin 12.3 11.7 - [facility] 15.5 gm/dL [facility] LABORATORY Hematocrit 37.0 35.7 - [facility] 45.8 % [facility] LABORATORY MCV 95.9 (H) 82.6 - [place] 94.4 [facility] LABORATORY MCH 31.9 27.1 - [place] 32.0 pg [facility] LABORATORY MCHC 33.2 31.7 - [place] 35.0 gm/dL [facility] LABORATORY Platelets 292 145 - 357 [place] x10(3)/[facility] LABORATORY RDWSD 44.2 37.0 - [place] 46.0 [facility] LABORATORY RDWCV 12.5 11.5 - [place] 14.1 % [facility] LABORATORY MPV 10.2 7.6 - 12.9 [place] [facility] LABORATORY nRBC % Auto 0.0 % [facility] LABORATORY nRBC Abs Auto 0.000 0.000 - [place] 0.000 [facility] x10(3)/[facility] LABORATORY Specimen Anatomical Collection Method Collection Time Receive d Time (Source) Location / / Volume Laterality Blood specimen 07/31/2019 4:45 PM 020 4:51 (specimen) EDT PM EDT Resulting Agency Comment Spec In Lab Kylie Bustos MD HEMATOLOGY ORDERABLES Performing Organization Address City/State/[place] [address] Troponin (07/31/2019 4:45 PM EDT) P athologist Signature Troponin-T <0.01 0.00 - 0.00 [facility] ng/mL [facility] LABORATORY Comment: The 99th percentile for Troponin T is le ss than 0.01 ng/mL, any detectable cTnT concentration using this assay should be considered elevated. According to the third universal definit ion of myocardial infarction the following criteria with a clinical prese ntation consistent with acute myocardial ischemia meets the diagnosis for a myocardial infarction (MD). Detection of a rise and/or fall of [...] additional sample may be indicated. Reference: Third [place] Definition of Myocardial Infarction. Journal of the [place] [employer] 2012;60:1581-98 Specimen Anatomical Collection Method Collection Time Receive d Time (Source) Location / / Volume Laterality Blood specimen 07/31/2019 4:45 PM 020 4:51 (specimen) EDT PM EDT Resulting Agency Comment Spec In Lab Chandni Melissa MD CHEMISTRY ORDERABLES Performing Organization Address City/State/[place] [address] (ABNORMAL) Basic Metabolic Panel (non-fasting) (07/31/2019 4:45 PM EDT) P athologist Signature Glucose Lvl 119 65 - 199 [facility] mg/dL [facility] LABORATORY Comment: Diabetes: >=200 mg/dL plus symp toms BUN 9 8 - 18 mg/dL [facility] LABORATORY Creatinine 0.55 (L) 0.70 - 1.20 mg/dL [facility] LABORATORY Sodium 135 135 - 145 mmol/L [facility] LABORATORY Potassium 4.1 3.5 - 5.0 mmol/L [facility] LABORATORY Comment: Please note: ??Patients with WBC >100,00 0 may have falsely elevated Potassium levels. ??For accurate Potassium quantif ication in these patients send serum separator tube (gold top) for subsequent determinations. ??Contact the Clinical Chemistry Laboratory if there are any qu estions. Chloride 102 98 - 107 mmol/L [facility] LABORATORY CO2 15 (L) 22 - 31 mmol/L [facility] LABORATORY Anion Gap 18 (H) 5 - 15 mmol/L [facility] LABORATORY Calcium 9.2 8.5 - 10.5 mg/dL [facility] LABORATORY Estimated GFR 123 >=60 mL/min/1.73 m?? [facility] LABORATORY Comment: The eGFR was calculated using the CKD-EP I equation. As with all creatinine based estimates of kidney function, eGFR values calculated with the CKD-EPI equation are not accurate in patients wi th acute kidney failure, extremes of body mass or the acutely ill. [email or web address]/[facility] eGFR 143 >=60 mL/min/1.73 m?? [facility] LABORATORY Comment: The eGFR was calculated using the CKD-EP I equation. As with all creatinine based estimates of kidney function, eGFR values calculated with the CKD-EPI equation are not accurate in patients wi th acute kidney failure, extremes of body mass or the acutely ill. http://[employer]/[facility] Specimen Anatomical Collection Method Collection Time Receive d Time (Source) Location / / Volume Laterality Blood specimen 07/31/2019 4:45 PM 020 4:51 (specimen) EDT PM EDT Resulting Agency Comment Spec In Lab Chandni Melissa MD CHEMISTRY ORDERABLES Performing Organization Address City/[facility]/[place] [address] EKG 12 Lead (07/31/2019 4:39 PM EDT) Component Value Ref Range Test Analysis Performed Pathologis t Method Time At Signature Ventricular rate 87 BPM MUSE SYSTEM Atrial Rate 87 BPM MUSE SYSTEM P-R Interval 140 ms MUSE SYSTEM QRS Duration 78 ms MUSE SYSTEM Q-T Interval 376 ms MUSE SYSTEM QTC Calculated 452 ms MUSE SYSTEM (Bezet) Calculated P [place] 44 degrees MUSE SYSTEM Calculated R [place] 73 degrees MUSE SYSTEM Calculated T [place] 51 degrees MUSE SYSTEM INTERPRETATION Normal sinus rhythm MUSE SYSTEM Possible Left atrial enlargement Borderline ECG When compared with ECG of 30-APR-2019 15:46, No significant change was found Confirmed by MD REYNOLDS SALVATORE ([id number]) on 08/01/2019 4:42:16 PM Specimen Anatomical Collection Method Collection Time Receive d Time (Source) Location / / Volume Laterality 07/31/2019 4:39 PM 0 4:42 EDT PM EDT Chandni Melissa MD ECG ORDERABLES Performing Organization Address City/[facility] Phon e Number MUSE SYSTEM documented in this encounter Visit Diagnoses Diagnosis Pneumonia of left lower lobe due to infe ctious organism 30 weeks gestation of state, incidental Pneumonia complicating Other current maternal conditions classi fiable elsewhere, complicating , childbirth, or the puerperium, unspecifi ed as to episode of care Bacterial vaginosis in documented in this encounter Admitting Diagnoses Diagnosis Pneumonia complicating Other current maternal conditions classi fiable elsewhere, complicating , childbirth, or the puerperium, unspecifi ed as to episode of care documented in this encounter Administered Medications Inactive Administered Medications - up to 3 most recent administrations Medication Order MAR Action Action Date Dose Rate Site acetaminophen (Tylenol) tablet Given 07/31/2019 10:21 PM EDT 1,0 00 mg 1,000 mg 1,000 mg, Oral, ONCE, 1 dose, On Jada 07/31/19 at 2213, Maximum dose of acetaminophen is 4000 mg from all sources in 24 hours., STAT acetaminophen (Tylenol) tablet 650 mg Given 08/01/2019 6:41 AM EDT 650 mg 650 mg, Oral, EVERY 6 HOURS PRN, Starting on Sun08/01/19 at 0623, Until Sun08/01/19 at 1232, Pain, Fever, Administer for temperature greater than or equal to 38.2 degrees celsius. Maximum daily dose of acetaminophen from all sources not to exceed 4,000 mg., Routine acetaminophen (Tylenol) tablet 650 mg Given 08/02/2019 4:01 PM EDT 650 mg 650 mg, Oral, EVERY 4 HOURS PRN, Starting on Sun08/01/19 at 1245, Until Sun08/03/19 at 1312, Pain, Fever, Administer for temperature greater than or equal to 38.0 degrees celsius. Maximum daily dose of acetaminophen from all sources not to exceed 4,000 mg., Routine Given 08/02/2019 8:47 AM EDT 650 mg albuteroL (PROVENTIL) nebulizer solution 2.5 Given 2:48 PM EDT 2.5 mg mg 2.5 mg, Nebulization, EVERY 6 HOURS PRN, Starting on Sun08/01/19 at 0623, Until Sun08/01/19 at 1613, Wheezing, Shortness of Breath albuteroL (PROVENTIL) nebulizer solution 2.5 Given 12:22 AM EDT 2.5 mg mg 2.5 mg, Nebulization, ONCE, 1 dose, On Jada 07/31/19 at 2333, Routine albuteroL (PROVENTIL) nebulizer solution 2.5 Given 3:39 PM EDT 2.5 mg mg 2.5 mg, Nebulization, EVERY 4 HOURS PRN, Starting on 08/02/19 at 0756, Until 08/03/19 at 1312, Wheezing, Routine Given 08/02/2019 8:40 AM EDT 2.5 mg albuteroL 90 mcg/actuation inhaler 2 puf f Given 08/01/2019 9:43 PM EDT 2 puffs 2 puff, Inhalation, EVERY 4 HOURS PRN, Starting on Sun08/01/19 at 1612, Until 08/02/19 at 0756, Wheezing, Shortness of Breath, Routine azithromycin (ZITHROMAX) 500 New Bag 08/01/2019 12:18 AM EDT 4 99.8 mg 255.1 mL/hr mg in sodium chloride 0.9% 255 mL 500 mg, Intravenous, ONCE, 1 dose, On Jada 07/31/19 at 2213, Administer over 60 Minutes, Indication for (Active or Suspected): Pneumonia (Community) azithromycin (Zithromax) tablet 250 mg Given 08/03/2019 8:28 AM EDT 250 mg 250 mg, Oral, DAILY, 4 doses, First dose (after last modification) on Sun08/01/19 at 0900, Last dose on Sun08/04/19 at 0900, Routine Given 08/02/2019 8:43 AM EDT 250 mg Given 08/01/2019 9:07 AM EDT 250 mg buprenorphine-naloxone (Suboxone) 8-2 mg Given 08/01/2019 9:07 A M EDT 1 tablet disintegrating tablet 1 tablet 1 tablet (8 mg of opiate), Sublingual, 2 TIMES DAILY, First dose on Sun08/01/19 at 0900, Until Discontinued buprenorphine-naloxone (Suboxone) 8-2 mg Given 08/03/2019 8:29 A M EDT 1 tablet disintegrating tablet 1 tablet 1 tablet (8 mg of opiate), Sublingual, 2 TIMES DAILY, First dose (after last modification) on Sun08/01/19 at 1830, Until Discontinued, Routine Given 08/02/2019 6:00 PM EDT 1 tablet Given 08/02/2019 8:41 AM EDT 1 tablet cefpodoxime (Vantin) tablet 200 mg Given 08/03/2019 8:28 AM EDT 200 mg 200 mg, Oral, 2 TIMES DAILY, First dose on Sun08/02/19 at 1430, Until Discontinued, Routine Given 08/02/2019 8:44 PM EDT 200 mg Given 08/02/2019 3:30 PM EDT 200 mg cefTRIAXone (ROCEPHIN) 1 g vial New Bag 07/31/2019 10:21 PM EDT 1 g 100 mL/hr attach to sodium chloride 0.9% 50 mL Mini-Bag Plus 1 g, Intravenous, ONCE, 1 dose, On Jada 07/31/19 at 2213, Administer over 30 Minutes, Indication for (Active or Suspected): Pneumonia (Community) cefTRIAXone (ROCEPHIN) 1 g vial attach New Bag 08/01/2019 9:27 PM EDT 1 g 100 mL/hr to sodium chloride 0.9% 50 mL Mini-Bag Plus 1 g, Intravenous, EVERY 24 HOURS, First dose on Sun08/01/19 at 2100, Until Discontinued, Administer over 30 Minutes, Indication for (Active or Suspected): Pneumonia (Community) dextromethorphan-guaiFENesin (Robitussin DM) Given 7:40 AM EDT 10 mLs ( 2 mg-20 mg/mL) oral liquid 10 mL 10 mL, Oral, 4 TIMES DAILY BEFORE MEALS & NIGHTLY, First dose on Sun08/01/19 at 1330, Until Discontinued, Routine Given 08/02/2019 8:45 PM EDT 10 mLs Given 08/02/2019 5:08 PM EDT 10 mLs dextromethorphan-guaiFENesin (Robitussin DM) ( 2 mg-20 mg/mL) oral liquid 10 mL 10 mL, Oral, NIGHTLY PRN, Starting on Sun08/01/19 at 1 230, Until Sun08/03/19 at 1312, Cough, Routine docusate sodium (Colace) capsule 100 mg Given 08/03/2019 8:28 AM EDT 100 mg 100 mg, Oral, 2 TIMES DAILY, First dose on Sun08/01/19 at 0900, Until Discontinued, Routine Given 08/02/2019 8:44 PM EDT 100 mg Given 08/02/2019 8:42 AM EDT 100 mg FLUoxetine (PROzac) capsule 20 mg Given 08/03/2019 8:27 AM EDT 20 mg 20 mg, Oral, DAILY, First dose on Sun08/01/19 at 0900, Until Discontinued, Routine Given 08/02/2019 8:42 AM EDT 20 mg Given 08/01/2019 9:07 AM EDT 20 mg lactated Ringers 1,000 mL IV bolus New Bag 07/31/2019 9:09 PM EDT 2000 mL/hr at 2,000 mL/hr, Intravenous, ONCE, 1 dose, On Sun07/31/19 at 2006 levothyroxine (Synthroid) tablet 75 mcg Given 08/03/2019 6:25 AM EDT 75 mcg 75 mcg, Oral, EVERY MORNING, First dose on Sun08/01/19 at 0630, Until Discontinued, Routine Given 08/02/2019 6:32 AM EDT 75 mcg Given 08/01/2019 6:42 AM EDT 75 mcg lidocaine (LIDODERM) 5 % Patch Applied 08/01/2019 9:27 PM 1 patch 08- Back Lower patch 1 patch EDT (Right) 1 patch, Transdermal, EVERY 24 HOURS, First dose on Sun07/31/19 at 2157, Until Discontinued, Apply patch(es) for 12 hours, and then remove for 12 hours, Routine Patch Applied 07/31/2019 10:12 PM EDT 1 patch 20- Other (document in comment section) lidocaine (LIDODERM) 5 %(700 mg/patch) P atch Removal Transdermal, EVERY 24 HOURS, First dose on Sun08/01/19 at 0956, Until Discontinued, Remove lidocaine 5 %(700 mg/patch) patch metroNIDAZOLE (Flagyl) tablet 500 mg Given 08/03/2019 8:27 AM EDT 500 mg 500 mg, Oral, 2 TIMES DAILY, 14 doses, First dose on Sun08/01/19 at 1130, Last dose on Sun08/07/19 at 2100, Routine Given 08/02/2019 8:44 PM EDT 500 mg Given 08/02/2019 8:42 AM EDT 500 mg phenol 1.4% (CHLORASEPTIC) spray 1 spray 1 spray, Oral, EVERY 4 HOURS PRN, Starting on 07/30 at 2217, Until 08/03/19 at 1312, Irritation, Routine polyethylene glycoL (Miralax) packet 17 g Given 08/01/2019 9:00 AM EDT 17 g 17 g, Oral, 2 TIMES DAILY, First dose on Sun08/01/19 at 0900, Until Discontinued, Routine polyethylene glycoL (Miralax) packet 17 g Given 08/03/2019 8:28 AM EDT 17 g 17 g, Oral, 2 TIMES DAILY, First dose (after last modification) on Sun08/01/19 at 1700, Until Discontinued, Routine Given 08/02/2019 3:39 PM EDT 17 g Given 08/01/2019 5:16 PM EDT 17 g vitamin 27 & [id number]-UF 60 mg Given 07/07 8:28 AM EDT 1 tablet iron-1 mg per tablet Tab 1 tablet 1 tablet, Oral, DAILY, First dose on Sun08/01/19 at 0900, Until Discontinued, Routine Given 08/02/2019 8:43 AM EDT 1 tablet Given 08/01/2019 9:07 AM EDT 1 tablet promethazine (Phenergan) tablet 25 mg Given 08/02/2019 10:16 AM EDT 25 mg 25 mg, Oral, EVERY 6 HOURS PRN, Starting on Sun08/01/19 at 0623, Until Sun08/03/19 at 1312, Nausea, Routine sodium chloride 0.9 % (flush) flush 5 mL Given 08/02/2019 8:45 PM EDT 5 mLs 5 mL, Intravenous, 2 TIMES DAILY, First dose on Sun08/01/19 at 0900, Until Discontinued, Routine Given 08/01/2019 9:41 PM EDT 5 mLs Given 08/01/2019 9:07 AM EDT 5 mLs documented in this encounter Active and Recently Administered Medications Times are shown in EDT. Scheduled Medication Order 08/01/2019 08/02/2019 08/03/2019 albuteroL (PROVENTIL) nebulizer solution 2.5 mg (COMPL ETED) 0022 (Given - Provider: Jacqueline Craft RN) 2.5 mg, Nebulization, ONCE, 1 dose, [facility] 07/31/19 at 2333, Routine azithromycin (ZITHROMAX) 500 mg in sodium chloride 0.9 % 255 mL (COMPLETED) 0018 (New Bag - Provider: Jacqueline Craft, RN)0118 (Stopped - Provider: Geovanna Smith RN) 500 mg, Intravenous, ONCE, 1 dose, [facility] at 2213, Administer over 60 Minutes, Indication for (Active or Suspected): Pneumonia (Community) azithromycin (Zithromax) tablet 250 mg 0907 (Given - P rovider: Alisha Eli RN) 0843 (Given - Provider: La Nena Walker, CHRISTEN) 0828 (Gi vega - Provider: La Nena Walker, CHRISTEN) 250 mg, Oral, DAILY, 4 doses, First dose (after last modification) on Sun08/01/19 at 0900, Last dose on Sun08/04/19 at 0900, Routine buprenorphine-naloxone (Suboxone) 8-2 mg disintegrating tablet 1 tablet (CANCELED) 09 (Given - Provider: Alisha Eli RN) 1 tablet (8 mg of opiate), Sublingual, 2 TIMES DAILY, First dose on Sun08/01/19 at 0900, Until Discontinued buprenorphine-naloxone (Suboxone) 8-2 mg disintegratin g tablet 1 tablet 1751 (Given - Provider: Alisha Eli RN) 0841 (Given - Provider: La Nena Walker, CHRISTEN)1800 (Given - Provider: La Nena Walker, CHRISTEN) 0829 (Given - Provider: La Nena Walker, CHRISTEN) 1 tablet (8 mg of opiate), Sublingual, 2 TIMES DAILY, First dose (after last modification) on Sun08/01/19 at 1830, Until Discontinued, Routine cefpodoxime (Vantin) tablet 200 mg 1530 (Given - Provider: La Nena Walker, CHRISTEN)2044 (Given - Provider: Tulio Hines, CHRISTEN) 0828 (Given - Provider: La Nena Walker, CHRISTEN) 200 mg, Oral, 2 TIMES DAILY, First dose on Sun08/02/19 at 1430, Until Discontinued, Routine cefTRIAXone (ROCEPHIN) 1 g vial attach t o sodium chloride 0.9% 50 mL Mini-Bag Plus (CANCELED) 2126 (New Bag - Provider: Tulio Hines RN)2156 (Stopped - Provider: Tulio Hines RN) 1 g, Intravenous, EVERY 24 HOURS, First dose on Sun08/01/19 at 2100, Until Discontinued, Administer over 30 Minutes, Indication for (Active or Suspected): Pneumonia (Community) dextromethorphan-guaiFENesin (Robitussin DM) ( 2 mg-20 mg/mL) oral liquid 10 mL 1458 (Given - Provider: Alisha Eli RN)1716 (Given - Provider: Alisha Eli RN)2127 (Given - Provider: Tulio Hines RN) 0748 (Given - Provider: La Nena Walker, CHRISTEN)1219 (Given - Provider: La Nena Walker, CHRISTEN)1708 (Given - Provider: La Nena Walker, CHRISTEN)204 (Given - Provider: Tulio Hines RN) 0740 (Given - Provider: La Nena Walker , CHRISTEN) 10 mL, Oral, 4 TIMES DAILY BEFORE MEALS & NIGHTLY, First dose on Sun08/01/19 at 1330, Until Discontinued, Routine docusate sodium (Colace) capsule 100 mg 0907 (Given - Provider: Alisha Eli RN)2126 (Given - Provider: Tulio Hines RN) 0842 (Given - Provider: La Nena Walker, CHRISTEN)2043 (Given - Provider: Tulio Hines RN) 0828 (Given - Provider: La Nena Walker, CHRISTEN) 100 mg, Oral, 2 TIMES DAILY, First dose on Sun08/01/19 at 0900, Until Discontinued, Routine FLUoxetine (PROzac) capsule 20 mg 09 (Given - Provid er: Alisha Eli RN) 0842 (Given - Provider: La Nena Walker, CHRISTEN) 0827 (Gi vega - Provider: La Nena Walker, CHRISTEN) 20 mg, Oral, DAILY, First dose on Sun at 0900, Until Discontinued, Routine levothyroxine (Synthroid) tablet 75 mcg 0642 (Given - Provider: Jessica Alvarenga RN) 0632 (Given - Provider: Tulio Hines RN) 0625 (Given - Provider: Tulio Hines RN) 75 mcg, Oral, EVERY MORNING, First dose on Sun08/01/19 at 0630, Until Discontinued, Routine lidocaine (LIDODERM) 5 % patch 1 patch(Linked Group 1) 2126 (Patch Applied - Provider: Tulio Hines RN) 2156 (Not Given - Provider: Tulio roa RN - Reason: Patient/family refused) 1 patch, Transdermal, EVERY 24 HOURS, Fi rst dose on Sun07/31/19 at 215, Until Discontinued, Apply patch(es) for 12 hours, and then remove for 12 hours, Routine lidocaine (LIDODERM) 5 %(700 mg/patch) Patch Removal(L inked Group 1) 955 (Patch Removed - Provider: Alisha Eli RN) 955 (Patch Removed - Provider: La Nena Walker RN) 09 (Patch Not Removed (add comment) - Provider: La Nena Walker RN) Transdermal, EVERY 24 HOURS, First dose on Sun08/01/19 at 0956, Until Discontinued, Remove lidocaine 5 %(700 mg/patch) patch metroNIDAZOLE (Flagyl) tablet 500 mg 112 (Given - Pro vider: Alisha Eli RN)2126 (Given - Provider: Tulio Hines RN) 0842 (Given - Provider: La Nena Walker RN)2043 (Given - Provider: Tulio Hines RN) 0827 (Given - Provider: La Nena Walker, CHRISTEN) 500 mg, Oral, 2 TIMES DAILY, 14 doses, F irst dose on Sun08/01/19 at 1130, Last dose on Sun08/07/19 at 2100, Routine polyethylene glycoL (Miralax) packet 17 g (CANCELED) 0 900 (Given - Provider: Alisha Eli, CHRISTEN) 17 g, Oral, 2 TIMES DAILY, First dose on Sun08/01/19 at 0900, Until Discontinued, Routine polyethylene glycoL (Miralax) packet 17 g 1716 (Given - Provider: Alisha Eli RN) 0900 (Not Given - Provider: La Nena bearden RN - Reason: Patient/family refused)1539 (Given - Provider: La Nena Walker RN) 0828 (Given - Provider: La Nena Walker RN) 17 g, Oral, 2 TIMES DAILY, First dose (a fter last modification) on Sun08/01/19 at 1700, Until Discontinued, Routine vitamin 27 & pebhawy-rkgu-WI 60 mg iron-1 mg per tablet Tab 1 tablet 09 (Given - Provider: Alisha Eli RN) 0843 (Given - Provider: La Nena Walker RN) 0828 (Given - Provider: La Nena Walker RN) 1 tablet, Oral, DAILY, First dose on Sun08/01/19 at 0900, Until Discontinued, Routine sodium chloride 0.9 % (flush) flush 5 mL 906 (Given - Provider: Alisha Eli RN)2140 (Given - Provider: Tulio Hines RN) 09 (Not Given - Provider: La Nena Walker RN - Reason: Order parameters not met - Comment: IVF infusing)2044 (Given - Provider: Tulio Hines RN) 09 (Not Given - Provider: La Nena Walker RN - Reason: Order parameters not met) 5 mL, Intravenous, 2 TIMES DAILY, First dose on Sun08/01/19 at 0900, Until Discontinued, Routine PRN Medication Order 08/01/2019 08/02/2019 08/03/2019 acetaminophen (Tylenol) tablet 650 mg (CANCELED) 0641 (Given - Provider: Jessica Alvarenga RN) 650 mg, Oral, EVERY 6 HOURS PRN, Startin g Sun08/01/19 at 0623, Until Sun08/01/19 at 1232, Pain, Fever, Administer for temperature greater than or equal to 38.2 degrees celsius. Maximum daily dose of zane taminophen from all sources not to exceed 4,000 mg., Routine acetaminophen (Tylenol) tablet 650 mg 08 47 (Given - Provider: La Nena Walker RN)1601 (Given - Provider: La Nena Walker RN) 650 mg, Oral, EVERY 4 HOURS PRN, Startin g Sun08/01/19 at 1245, Until Sun08/03/19 at 1312, Pain, Fever, Administer for temperature greater than or equal to 38.0 degrees celsius. Maximum daily dose of zane taminophen from all sources not to exceed 4,000 mg., Routine albuteroL (PROVENTIL) nebulizer solution 2.5 mg (CANCE LED) 1448 (Given - Provider: Alisha Eli, RN) 2.5 mg, Nebulization, EVERY 6 HOURS PRN, Starting 08/01/19 at 0623, Until 08/01/19 at 1613, Wheezing, Shortness of Breath albuteroL (PROVENTIL) nebulizer solution 2.5 mg 0840 (Given - Provider: La Nena Walker, CHRISTEN)1539 (Given - Provider: La Nena Walker, CHRISTEN) 2.5 mg, Nebulization, EVERY 4 HOURS PRN, Starting 08/02/19 at 0756, Until 08/03/19 at 1312, Wheezing, Routine albuteroL 90 mcg/actuation inhaler 2 puff (CANCELED) 2 143 (Given - Provider: Tulio Hines RN) 2 puff, Inhalation, EVERY 4 HOURS PRN, S tarting 08/01/19 at 1612, Until 08/02/19 at 0756, Wheezing, Shortness of Breath, Routine dextromethorphan-guaiFENesin (Robitussin DM) ( 2 mg-20 mg/mL) oral liquid 10 mL 10 mL, Oral, NIGHTLY PRN, Starting Sun at 1230, Until 08/03/19 at 1312, Cough, Routine lidocaine (XYLOCAINE) 10 mg/mL (1 %) injection 3 mg 3 mg (0.3 mL), Subcutaneous, ONCE PRN, 1 dose, Starting Sun08/01/19 at 0623, Until 08/03/19 at 1312, for discomfort with PIV insertion, Routine phenol 1.4% (CHLORASEPTIC) spray 1 spray 1 spray, Oral, EVERY 4 HOURS PRN, Starti ng Jada 07/31/19 at 2217, Until 08/03/19 at 1312, Irritation, Routine promethazine (Phenergan) tablet 25 mg 10 16 (Given - Provider: La Nena Walker, CHRISTEN) 25 mg, Oral, EVERY 6 HOURS PRN, Starting Sun08/01/19 at 0623, Until 08/03/19 at 1312, Nausea, Routine sodium chloride 0.9 % (flush) flush 5-20 mL 5-20 mL, Intravenous, EVERY 1 MIN PRN, S tarting Sun08/01/19 at 0623, Until 08/03/19 at 1312, flush, Flush pertains to all indwelling lines. Flush per protocol found in the job aid using the link provided on this medication record., Routine Linked Groups Order Group 1: lidocaine (LIDODERM) 5 % patch 1 patchJump to med 1 patch, Transdermal, EVERY 24 HOURS, Fi rst dose on Jada 07/31/19 at 2157, Until Discontinued
Apply patch(es) for 12 hours, and then remove for 12 hours
Routine And lidocaine (LIDODERM) 5 %(700 mg/patch) Patch RemovalJump to med Transdermal, EVERY 24 HOURS, First dose on Sun08/01/19 at 0956, Until Discontinued
Remove lidocaine 5 %(700 mg/patch) patch
documented in this encounter Care Teams Probation And Parole Officer Relationship Specialty Start Date End Date Genet Holland PA PCP - General Family Medicine 02/06/19 05/15/20 [address] [place] [address] documented as of this encounter
--- OUTSIDE RECORDS SUMMARY | 2021-10-20 07:57 | XMS_ITS | Encounter Summary ---
:1985 Author Organization [facility] [place] [address] Care Team Providers Name Role Phone Genet Holland Primary Care Provider Reason for Visit Reason Comments Follow-up Encounter Details Date Type Department Care Team Description 03/05/2019 Routine Obstetrics and Marcie Baron MD [place]: 8w3d Gynecology at [facility] Celia gutierrez OBSTETR[place] & [place] [address] GYNECOLOGY [phone] [place] [phone] (Wo rk) Social History Tobacco Use Types [...] Sign Reading Time Taken Comments Blood Pressure 106/66 03/05/2019 1:40 PM EST Pulse - - Temperature - - Respiratory Rate - - Oxygen Saturation - - Inhaled Oxygen Concentration - - Weight 78.6 kg (173 lb 4.8 oz) 03/05/2019 1:40 PM EST Height - - Body Mass Index 25.58 02/07/2019 11:00 AM EST documented in this encounter Progress Notes Marcie Baron MD - 03/05/2019 2:15 PM EST Normal embryo ASHLIE 10/12/2019 Has been well. Phenergan is helping No bleeding Not interested in aneuploidy or carrier screening. F/U at [facility] labs today documented in this encounter Miscellaneous Notes Addendum Note - Lukas Cardona - 03/05/2019 2:15 PM EST Addended by: LUKAS CARDONA on: 03/05/2019 02:00 PM Modules accepted: Orders documented in this encounter Plan of Treatment Not on filedocumented as of this encounter Procedures Procedure Name Priority Date/Time Associated Diagnosis Comme nts ABORH RECHECK Routine 03/05/2019 2:17 PM Results for this STATUS EST procedure are i n the results section. ABO/RH TYPING Routine 03/05/2019 2:17 PM Supervision of high R esults for this EST risk in procedure are in third trimester the results section. ANTIBODY SCREEN Routine 03/05/2019 2:17 PM Supervision of high Results for this EST risk in procedure are in third trimester the results section. HC ABO-MICROTITER Routine 03/05/2019 2:17 PM Supervision of hi gh EST risk in third trimester documented in this encounter Results ABORH Recheck Status (03/05/2019 2:17 PM EST) [facility] Method Time Signature ABORH Type Completed [facility] LABORATORY Specimen Anatomical Collection Method Collection Time Receive d Time (Source) Location / / Volume Laterality Blood specimen 03/05/2019 2:17 PM 020 2:24 (specimen) EST PM EST Resulting Agency Comment Spec In Lab Marcie Baron MD BLOOD BANK ORDERABLES Performing Organization Address City/State/[place] [address] Antibody screen (03/05/2019 2:17 PM EST) [facility] Method Time Signature Ab Screen Negative [facility] LABORATORY Expires at 03/08/2019 [facility] [id number] on: [facility] LABORATORY Specimen Anatomical Collection Method Collection Time Receive d Time (Source) Location / / Volume Laterality Blood specimen 03/05/2019 2:17 PM 020 2:24 (specimen) EST PM EST Resulting Agency Comment Spec In Lab Marcie Baron MD BLOOD BANK ORDERABLES Performing Organization Address City/[facility]/[place]IP [place] [address] ABO/Rh Typing (03/05/2019 2:17 PM EST) P athologist Signature ABORh Type A Pos [facility] LABORATORY Specimen Anatomical Collection Method Collection Time Receive d Time (Source) Location / / Volume Laterality Blood specimen 03/05/2019 2:17 PM 020 2:24 (specimen) EST PM EST Resulting Agency Comment Spec In Lab Marcie Baron MD BLOOD BANK ORDERABLES Performing Organization Address City/[facility] [place] [address] documented in this encounter Visit Diagnoses Diagnosis Supervision of high risk in th ird trimester Unspecified high-risk documented in this encounter Care Teams Rn Embedded Relationship Specialty Start Date End Date Genet Holland PA PCP - General Family Medicine 02/06/19 05/15/[address] [place] [id number] documented as of this encounter
--- OUTSIDE RECORDS SUMMARY | 2021-10-20 07:57 | XMS_ITS | Encounter Summary ---
:1985 Author Organization [facility] [place] [address] Care Team Providers Name Role Phone Genet Holland Primary Care Provider Encounter Details Date Type Department Care Team Description 05/01/2019 Telephone Obstetrics and Gynecology at Jennifer burnette CNM [facility] Celia gutierrez OBSTETRICS & [place] [address] [place] [address] [phone] (Wo rk) Social History Tobacco Use Types Packs/Day Years Used Date Current Every Day Smoker Cigarettes 0.5 Smokeless Tobacco: Never Used Alcohol Use Standard Drinks/Week Comments No 0 (1 standard drink = 0.6 oz pure alcoho l) Not during Sex Assigned at Date Recorded Female 04/13/2020 8:26 AM EST documented as of this encounter Miscellaneous Notes Telephone Encounter - Jennifer Wu CNM - 05/01/2019 1:49 PM EDT Attempted to reach Shirlene to check on her, voice mailbox not set up yet. documented in this encounter Plan of Treatment Not on filedocumented as of this encounter Visit Diagnoses Not on filedocumented in this encounter Care Teams Show Card Writer Relationship Specialty Start Date End Date Genet Holland PA PCP - General Family Medicine 02/06/19 05/15/20 [address] [place] [address] documented as of this encounter
--- OUTSIDE RECORDS SUMMARY | 2021-10-20 07:57 | XMS_ITS | Encounter Summary ---
:1985 Author Organization [facility] [place] [address] Care Team Providers Name Role Phone Genet Holland Primary Care Provider Encounter Details Date Type Department Care Team Description 04/19/2019 Telephone Obstetrics and Gynecology Aislinn Ferreira MD at [facility] Celia gutierrez OBSTETRICS & [place] [address] [place] [address] [phone] (Wo rk) Social History Tobacco Use Types Packs/Day Years Used Date Current Every Day Smoker Cigarettes 0.5 Smokeless Tobacco: Never Used Alcohol Use Standard Drinks/Week Comments No 0 (1 standard drink = 0.6 oz pure alcoho l) Not during Sex Assigned at Date Recorded Female 04/13/2020 8:26 AM EST documented as of this encounter Miscellaneous Notes Telephone Encounter - Aislinn Jacobs MD - 04/19/2019 4:06 PM EDT Returned call from patient following up regarding fluid leaking, reports it has diminished but stillfeeling a little. She would like to be evaluated but lives in [place] and would prefer to present to her local hospital for evaluation. I spoke to the on-call ED attending at [place] and made a plan for speculum exam there to assess for significant vaginal fluid and will check Dopplers. Aislinn Jacobs MD, PGY-3 documented in this encounter Plan of Treatment Not on filedocumented as of this encounter Visit Diagnoses Not on filedocumented in this encounter Care Teams Theater Technician Relationship Specialty Start Date End Date Genet Holland PA PCP - General Family Medicine 02/06/19 05/15/20 [address] [place] [address] documented as of this encounter
--- OUTSIDE RECORDS SUMMARY | 2021-10-20 07:57 | XMS_ITS | Encounter Summary ---
:1985 [place] [address] Care Team Providers Name Role Phone Genet Holland Primary Care Provider Encounter Details Date Type Department Care Team Description 03/05/2019 Hospital Encounter Ultrasound at [facility] Katerina Lima Supervision of [facility] MD Elizabeth risk in [facility] first trimester [place], [place] CENTER [address] OBSTETRICS & [phone] GYNECOLOGY [place], [place] [address] Social History Tobacco Use Types [...] Refills Start Date End Date buprenorphine-naloxone Place 12 mg of opiate 11 each 0 03/12/2019 (SUBOXONE) 8-2 mg Film under the tongue daily. FLUoxetine (PROZAC) 20 Take 20 mg by mouth 0 03/19/2019 mg TabletIndications: daily. Indications: Depression Depression promethazine (PHENERGAN) Take 1 tablet by 60 tablet 1 02/1907/09/2019 25 mg Tablet mouth every 6 hours as needed for Nausea. levothyroxine Take 75 mcg by mouth. 0 07/09/2019 (SYNTHROID) 175 mcg Tablet polyethylene glycol Take 17 g by mouth 255 g 1 08/28/19 18 04/09/2019 (MIRALAX) 17 gram/dose daily. PowderIndications: Constipation, unspecified constipation type PLUS, CALCIUM 0 01/11/2015 CARB, 27 mg iron- 1 mg Tablet ibuprofen (ADVIL;MOTRIN) Take 1 tablet by 30 tablet 12 12/0404/09/2019 600 mg Tablet mouth every 6 hours as needed for Pain. albuterol (PROVENTIL Inhale 2 puffs into 1 Inhaler 1 201408/03/2019 HFA;VENTOLIN HFA;PROAIR) the lungs every 4 90 mcg/actuation HFA hours as needed for Aerosol Inhaler Wheezing. Use with spacer documented as of this encounter Plan of Treatment Not on filedocumented as of this encounter Procedures Procedure Name Priority Date/Time Associated Diagnosis Comme nts US OB TRANSVAGINAL Routine 03/05/2019 1:18 PM Supervision of aneudy freeman Results for this EST risk in procedure are in first trimester the results section. documented in this encounter Results US OB Viability Transvaginal (03/05/2019 1:18 PM EST) Anatomical Region Laterality Modality Pelvis, Abdomen Ultrasound Specimen (Source) Anatomical Collection Method Collection Time Re ceived Time Location / / Volume Laterality 03/05/2019 12:58 PM EST Impressions 03/05/2019 1:54 PM EST 1st Trimester Summary Single living intrauterine wi th a gestational age of 8w 3d based on U/S C R L () The crown rump length corresponds to a gestational age of 8w 3d. ? Destiny Reno, Staff Veto cantu Electronically Signed Final Report ?? 01:53 pm Narrative 03/05/2019 1:54 PM EST OBSTETRICS REPORT ?(Signed Final 03/05/2019 01:53 pm) PATIENT INFO: ID #: ? [id number] ?: ??[birth year] (33 yrs) Name: ? SHIRLENE KOVACS ?Visit Date: 03/05/2019 12:58 pm PERFORMED BY: Performed By: ? Roxana ROMERO, ??Javid davis Attending: ?Destiny Reno MD Referred By: ?KATERINA LIMA Location: ? [facility] SERVICE(S) PROVIDED: ??UOBTV - Viability -Transvaginal - IMG 1720 ? [id number] INDICATIONS: ??8 weeks gestation of ? Z3A.08 ??viability TECHNIQUE/SCAN QUALITY: Technique: ?? Transducer ID#:[id number] EVALUATION: Num Of Fetuses: ?1 Preg. Location: ?Intrauter ine Gest. Sac: ? Visuali zed Yolk Sac: ?Visual ized Pole: ?Visuali zed Heart Rate(bpm): ?? 164 Cardiac Activity: ?Observed, normal rhythm Presentation: ?Variable Placenta: ?Too ea rly to evaluate Amniotic Fluid CHRISTIE FV: ?Too early to evaluate --------- BIOMETRY: --------- CRL: ?18.7 ??mm ? G.Age: ?? 8w 3d ? ASHLIE: ?? 10/12/19 OB HISTORY: : ?2 ? Term: ?? 1 Living: ? 1 GESTATIONAL AGE: Best: ?8w 3d ?Det. By: ??U/S C R L ?ASHLIE: ?? 10/12/19 ? (03/05/19) CERVIX UTERUS ADNEXA: Left Ovary Size(cm) ? 2.2 ??x ?? 0.9 ?x ??1.3 ? Vol(ml): 1.3 Visualized Right Ovary Size(cm) ? 3.1 ??x ?? 2.0 ?x ??1.4 ? Vol(ml): 4.5 Visualized, measuring corpus lutuem jessica suring 1.6 x 1.5 x 1.8 cm. Cul De Sac No fluid seen Procedure Note Sherly Reno MD - 03/05/2019For matting of this note might be different from the original. OBSTETRICS REPORT (Signed Final 020 01:53 pm) PATIENT INFO: ID #: [id number] : [birth year] (33 y rs) Name: SHIRLENE KOVACS Visit Date: 03/05 12:58 pm PERFORMED BY: Performed By: Gretchen Schmidt RDMS Attending: Destiny Reno MD Referred By: KATERINA LIMA Location: [facility] SERVICE(S) PROVIDED: UOBTV - Viability -Transvaginal - IMG17 20 [id number] INDICATIONS: 8 weeks gestation of Z3A.08 viability TECHNIQUE/SCAN QUALITY: Technique: Transducer ID#:[id number] EVALUATION: Num Of Fetuses: 1 Preg. Location: Intrauterine Gest. Sac: Visualized Yolk Sac: Visualized Pole: Visualized Heart Rate(bpm): 164 Cardiac Activity: Observed, normal rhyt hm Presentation: Variable Placenta: Too early to evaluate Amniotic Fluid CHRISTIE FV: Too early to evaluate --------- BIOMETRY: --------- CRL: 18.7 mm G.Age: 8w 3d ASHLIE: 10/12/19 OB HISTORY: : 2 Term: 1 Livin GESTATIONAL AGE: Best: 8w 3d Det. By: Therese/S Mark Bartholomew ASHLIE: 07/25 (03/05/19) CERVIX UTERUS ADNEXA: Left Ovary Size(cm) 2.2 x 0.9 x 1.3 Vol(ml): 1.3 Visualized Right Ovary Size(cm) 3.1 x 2.0 x 1.4 Vol(ml): 4.5 Visualized, measuring corpus lutuem jessica suring 1.6 x 1.5 x 1.8 cm. Cul De Sac No fluid seen IMPRESSION 1st Trimester Summary Single living intrauterine wi th a gestational age of 8w 3d based on U/S C R L () The crown rump length corresponds to a gestational age of 8w 3d. Destiny Reno, Staff Physician Electronically Signed Final Report 03/05 01:53 pm Katerina Lima MD [facility] OB ORDERABLES documented in this encounter Visit Diagnoses Diagnosis Supervision of high risk in rst trimester Unspecified high-risk documented in this encounter Care Teams State Federal Relations Deputy Director Relationship Specialty Start Date End Date Genet Holland PA PCP - General Family Medicine 02/06/19 05/15/[address] [place] [address] documented as of this encounter
--- OUTSIDE RECORDS SUMMARY | 2021-10-20 07:57 | XMS_ITS | Encounter Summary ---
:1985 Author Organization [facility] [place] [address] Care Team Providers Name Role Phone Genet Holland Primary Care Provider Encounter Details Date Type Department Care Team Description 04/09/2019 Laboratory Lab 3L [place] High risk pregn justin, antepartum; Appointment [facility] Hypothyro idism following radioiodine therapy; Hospital Supervision of high risk [place] [id number] Social History Tobacco Use Types Packs/Day Years [...] Date/Time Associated Diagnosis Comme nts ABORH RECHECK STATUS Routine 04/09/2019 1:32 PM R esults for this EST procedure are i n the results section. HC HEPATITIS B Routine 04/09/2019 1:32 PM Supervision of high SURFACE AG EST risk in first trimester ABO/RH TYPING Routine 04/09/2019 1:32 PM Supervision of high R esults for this EST risk in procedure are in first trimester the results section. ANTIBODY SCREEN Routine 04/09/2019 1:32 PM Supervision of high Results for this EST risk in procedure are in first trimester the results section. HEMOGRAM Routine 04/09/2019 1:31 PM Supervision of high Re sults for this EST risk in procedure are in first trimester the results section. DIFFERENTIAL, Routine 04/09/2019 1:31 PM Supervision of high R esults for this AUTOMATED EST risk in procedure are in first trimester the results section. SYPHILIS ANTIBODY Routine 04/09/2019 1:31 PM Supervision of hi gh Results for this SCREEN WITH REFLEX EST risk in proc edure are in first trimester the results section. RUBELLA ANTIBODY, IGG Routine 04/09/2019 1:31 PM Supervision o f high Results for this EST risk in procedure are in first trimester the results section. HIV SCREEN, 4TH Routine 04/09/2019 1:31 PM Supervision of high Results for this GENERATION EST risk in procedure are in ([facility]/CGP/APD/[facility]) first trimester the re sults section. HEPATITIS B SURFACE Routine 04/09/2019 1:31 PM Supervision of high Results for this ANTIGEN EST risk in procedure are in first trimester the results section. HC VARICELLA ZOSTER Routine 04/09/2019 1:31 PM Supervision of high Results for this ANTIBODY EST risk in procedure are in first trimester the results section. HC VENIPUNCTURE Routine 04/09/2019 1:31 PM High risk , Results for this EST antepartum procedure are in Hypothyroidism the results following section. radioiodine therapy HEPATIC FUNCTION Routine 04/09/2019 1:31 PM Supervision of hig h Results for this PANEL EST risk in procedure are in first trimester the results section. documented in this encounter Results ABORH Recheck Status (04/09/2019 1:32 PM EST) [facility] Slyce Method Time Signature ABORH Type Completed [facility] LABORATORY Specimen Anatomical Collection Method Collection Time Receive d Time (Source) Location / / Volume Laterality Blood specimen 04/09/2019 1:32 PM 020 1:37 (specimen) EST PM EST Resulting Agency Comment Spec In Lab Katerina Doyle MD BLOOD BANK ORDERABLES Performing Organization Address City/State/[place] [address] Antibody screen (04/09/2019 1:32 PM EST) [facility] Method Time Signature Ab Screen Negative [facility] LABORATORY Expires at 04/12/2019 [facility] [id number] on: [facility] LAB[facility] Specimen Anatomical Collection Method Collection Time Receive d Time (Source) Location / / Volume Laterality Blood specimen 04/09/2019 1:32 PM 020 1:37 (specimen) EST PM EST Resulting Agency Comment Spec In Lab Katerina Doyle MD BLOOD BANK ORDERABLES Performing Organization Address City/[facility]/ZIP Code Phon e Number [address] ABO/Rh Typing (04/09/2019 1:32 PM EST) P athologist Signature ABORh Type A Pos [facility] LABORATORY Specimen Anatomical Collection Method Collection Time Receive d Time (Source) Location / / Volume Laterality Blood specimen 04/09/2019 1:32 PM 020 1:37 (specimen) EST PM EST Resulting Agency Comment Spec In Lab Katerina Doyle MD BLOOD BANK ORDERABLES Performing Organization Address [facility] Phon e Number [address] HIV Screen, 4th Generation ([facility]/CGP/APD) (04/09/2019 1:31 PM EST) Analysis Performed At [facility] HIV-1/2 Ab and Negative Negative [facility] LABORATORY Comment: This 4th Generation HIV [...] Location / / Volume Laterality Blood specimen 04/09/2019 1:31 PM 020 1:37 (specimen) EST PM EST Resulting Agency Comment Spec In Lab Katerina Doyle MD IMMUNOLOGY ORDERABLES Performing Organization Address City/[facility] Code Phon e Number [address] Syphilis Screening Antibody with reflex RPR (04/09/2019 1:31 PM EST) Analysis Performed At Patho logist Soham Signature Syphilis Negative Negative [facility] IgG/IgM [facility] LABORATORY Specimen Anatomical Collection Method Collection Time Receive d Time (Source) Location / / Volume Laterality Blood specimen 04/09/2019 1:31 PM 020 1:37 (specimen) EST PM EST Resulting Agency Comment Spec In Lab Katerina Doyle MD IMMUNOLOGY ORDERABLES Performing Organization Address City/State/[place] [address] (ABNORMAL) Differential, Automated (04/09/2019 1:31 PM EST) [facility] gist Method Time Signature Neutrophils % 57.4 % [facility] LABORATORY Neutr Abs (ANC) 5.96 1.70 - [facility] 6.10 [facility] x10(3)/[facility] LABORATORY Lymphocytes % 33.1 % [facility] LABORATORY Lymphocytes Abs 3.4 (H) 0.9 - 3.2 [facility] x10(3)/[facility] LABORATORY Monocytes % 7.2 % [facility] LABORATORY Monocyte Abs 0.8 0.3 - 0.9 [facility] x10(3)/[facility] LABORATORY Eosinophils % 1.3 % [facility] LABORATORY Eosinophils Abs 0.1 0.0 - 0.4 [facility] x10(3)/[facility] LABORATORY Basophils % 0.5 % [facility] LABORATORY Basophils Abs 0.0 0.0 - 0.1 [facility] x10(3)/[facility] LABORATORY Immature Gran % 0.50 % [facility] LABORATORY Comment: Immature granulocytes(IG's)percentage an d absolute count will include metamyelocytes, myelocytes, and promyelo cytes. Blood smears from CBCs yielding IG's will be scanned manually for concor dance. If this scan disagrees with the automated IG or if promyelocytes are not ed, a manual differential will be performed. Ayah Gran Abs 0.05 (H) 0.00 - 0.04 x10(3)/[facility] LABORATORY Specimen Anatomical Collection Method Collection Time Receive d Time (Source) Location / / Volume Laterality Blood specimen 04/09/2019 1:31 PM 020 1:37 (specimen) EST PM EST Resulting Agency Comment Spec In Lab Katerina Doyle MD HEMATOLOGY ORDERABLES Performing Organization Address City/State/ZIP Code Phon e Number [address] (ABNORMAL) Hemogram (04/09/2019 1:31 PM EST) Analysis Performed At Patho logist Time Signature WBC 10.4 (H) 4.0 - 9.5 [facility] x10(3)/[facility] LABORATORY RBC 4.01 4.00 - [place] [facility] 5.21 [facility] x10(6)/[facility] LABORATORY Hemoglobin 12.8 11.7 - [facility] 15.5 gm/dL [facility] LABORATORY Hematocrit 38.0 35.7 - [facility] 45.8 % [facility] LABORATORY MCV 94.8 (H) 82.6 - [facility] 94.4 [facility] LABORATORY MCH 31.9 27.1 - [place] [facility] 32.0 pg [facility] LABORATORY MCHC 33.7 31.7 - [place] [facility] 35.0 gm/dL [facility] LABORATORY Platelets 308 145 - 357 [facility] x10(3)/[facility] LABORATORY RDWSD 44.8 37.0 - [place] [facility] 46.0 [facility] LABORATORY RDWCV 12.8 11.5 - [facility] 14.1 % [facility] LABORATORY MPV 9.9 7.6 - 12.9 [facility] LABORATORY nRBC % Auto 0.0 % [facility] LABORATORY nRBC Abs Auto 0.000 0.000 - [facility] 0.000 [facility] x10(3)/[facility] LABORATORY Specimen Anatomical Collection Method Collection Time Receive d Time (Source) Location / / Volume Laterality Blood specimen 04/09/2019 1:31 PM 0304 020 1:37 (specimen) EST PM EST Resulting Agency Comment Spec In Lab Katerina Doyle MD HEMATOLOGY ORDERABLES Performing Organization Address City/State/[place] [address] Rubella Antibody, IgG (04/09/2019 1:31 PM EST) P athologist Signature Rubella IgG Positive Positive [facility] LABORATORY Comment: Please note: ??A positive result for thi s assay indicates that antibody levels are >or= 10.0 IU/mL and is considered to be an indicator of positive immune status. Specimen Anatomical Collection Method Collection Time Receive d Time (Source) Location / / Volume Laterality Blood specimen 04/09/2019 1:31 PM 020 1:37 (specimen) EST PM EST Resulting Agency Comment Spec In Lab Katerina Doyle MD IMMUNOLOGY ORDERABLES Performing Organization Address [facility] Phon e Number [address] Hepatitis B Surface Antigen (04/09/2019 1:31 PM EST) Analysis Performed At Patho logist Time [facility] HepB Surface Negative Negative [facility] LABORATORY Specimen Anatomical Collection Method Collection Time Receive d Time (Source) Location / / Volume Laterality Blood specimen 04/09/2019 1:31 PM 020 1:37 (specimen) EST PM EST Resulting Agency Comment Spec In Lab Katerina Doyle MD CHEMISTRY ORDERABLES Performing Organization Address City/[facility] [place] [address] (ABNORMAL) Hepatic Function Panel (04/09/2019 1:31 PM EST) athologist [facility] Total Protein 6.6 6.1 - 8.0 [facility] gm/dL [facility] LABORATORY Albumin 3.9 3.2 - 5.2 [facility] gm/dL [facility] LABORATORY AST 33 (H) 0 - 30 [facility] unit/L [facility] LABORATORY ALT 38 (H) 0 - 30 [facility] unit/L [facility] LABORATORY Alk Phos 59 35 - 105 [facility] unit/L [facility] LABORATORY Total 0.3 0.2 - 1.3 [facility] Bilirubin mg/dL [facility] LABORATORY Bili, Direct 0.1 0.0 - 0.3 [facility] mg/dL [facility] LABORATORY Specimen Anatomical Collection Method Collection Time Receive d Time (Source) Location / / Volume Laterality Blood specimen 04/09/2019 1:31 PM 020 1:37 (specimen) EST PM EST Resulting Agency Comment Spec In Lab Katerina Doyle MD CHEMISTRY ORDERABLES Performing Organization Address City/[facility]/[place] [address] Varicella zoster Antibody, IgG (04/09/2019 1:31 PM EST) athologist Signature Varicella IgG Neg [facility] LABORATORY Specimen Anatomical Collection Method Collection Time Receive d Time (Source) Location / / Volume Laterality Blood specimen 04/09/2019 1:31 PM 020 7:52 (specimen) EST AM EST Resulting Agency Comment Spec In Lab Katerina Doyle MD IMMUNOLOGY ORDERABLES Performing Organization Address City/[facility] [place] [address] TSH (04/09/2019 1:31 PM EST) athologist Signature TSH 1.64 0.27 - 4.20 [facility] mcIU/mL [facility] LABORATORY Specimen Anatomical Collection Method Collection Time Receive d Time (Source) Location / / Volume Laterality Blood specimen 04/09/2019 1:31 PM 020 1:37 (specimen) EST PM EST Resulting Agency Comment Spec In Lab Jennifer MALHOTRA CHEMISTRY ORDERABLES Performing Organization Address City/[facility]/[place] [address] documented in this encounter Visit Diagnoses Diagnosis High risk , antepartum 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
--- OUTSIDE RECORDS SUMMARY | 2021-10-20 07:57 | XMS_ITS | Encounter Summary ---
:1985 Author Organization [facility] [place] [address] Care Team Providers Name Role Phone Genet Holland Primary Care Provider Encounter Details Date Type Department Care Team Description 02/19/2019 External Results Obstetrics and Aislinn Trevino, [place] [address] Social History Tobacco Use Types Packs/Day [...] Name Priority Date/Time Associated Diagnosis Comme nts CBC (WITH DIFF) Routine 02/08/2019 Results for this procedure are in the resu lts section. documented in this encounter Results (ABNORMAL) CBC (with Diff) (02/08/2019) Analysis Performed At Patho logist Time Signature WBC 8.9 (External Lab) RBC 4.71 (External Lab) Hemoglobin 14.7 (External Lab) Hematocrit 44.0 (External Lab) MCV 93.2 (External Lab) MCH 31.2 (External Lab) MCHC 34.0 (External Lab) RDWCV 13.1 (External Lab) Platelets 380 (External Lab) Neutrophils % 46.0 (External Lab) Lymphocytes % 42.0 (External Lab) Monocytes % 9.0 (External Lab) Eosinophil % 2.4 (External Lab) Basophils % 0.7 (External Lab) Specimen (Source) Anatomical Location Collection Method / Collectio n Time Received Time / Laterality Volume Blood specimen 02/08/2019 (specimen) Historical Provider MD HEMATOLOGY ORDERABLES documented in this encounter Visit Diagnoses Not on filedocumented in this encounter Care Teams Food Checkers And Cashiers Supervisor Relationship Specialty Start Date End Date Genet Holland PA PCP - General Family Medicine 02/06/19 05/15/[address] [place] [phone] documented as of this encounter
--- OUTSIDE RECORDS SUMMARY | 2021-10-20 07:57 | XMS_ITS | Encounter Summary ---
:1985 Author Organization [facility] [place] [address] Care Team Providers Name Role Phone Genet Holland Primary Care Provider Encounter Details Date Type Department Care Team Description 05/01/2019 Telephone Obstetrics and Gynecology at Jennifer Pearce CNM [facility] Celia gutierrez OBSTETRICS & [place] [address] [place] [address] [phone] (Wo rk) Social History Tobacco Use Types [...] Encounter - Jennifer Wu CNM - 05/01/2019 4:58 PM EDT Phone call to Shirlene to check on symptoms. Currently on 14d quarantine for presumptive Covid-19 illness. Shirlene reports she continues to have nausea, headache, feels weak and sick. She has been able to hold down fluids- drinking lots of water and popsicles today, vomitted twice. Fever is off an on, was 100.1 this morning but normal this afternoon after taking acetaminophen. Has support from her housemates and plenty of food. Feeling activity. Is observing strict isolation precautions as recommended by [facility] on discharge from ED, remaining in her room, masking if she has to leave her it, wiping down bathroom fixtures and doorknobs, etc. Shirlene asked whether she was tested for Covid 19. I explained that she was not tested, although she did have negative testing for influenza. Reviewed why testing is currently being deployed for patients with severe symptoms warranting hospitalization, or the healthcare workforce, and that because supportive treatment is the only available modality, isolation, rest, acetaminophen, pushing fluids and eating what she can are the best strategies that we have. She knows to call if symptoms worsen and howto reach the on-call team at night/weekends. documented in this encounter Plan of Treatment Not on filedocumented as of this encounter Visit Diagnoses Diagnosis Opioid use disorder documented in this encounter Care Teams Managing Principal Relationship Specialty Start Date End Date Genet Holland PA PCP - General Family Medicine 02/06/19 05/15/20 [address] [place] [address] documented as of this encounter
--- OUTSIDE RECORDS SUMMARY | 2021-10-20 07:57 | XMS_ITS | Encounter Summary ---
:1985 Author Organization [facility] [place] [address] Care Team Providers Name Role Phone Genet Holland Primary Care Provider Reason for Visit Occupational Therapy (Routine) - Specialty Diagnoses / Procedures Referred By Contact Refer red To Contact Occupational Therapy Diagnoses Paresthesia of both hands Jennifer Wu, CNM [facility] Rehab Ot [facility] D R [address] OBSTETRICS & [place], [place] GYNECOLOGY [address] [place] [address] Referral ID Status Reason Start Date Expiration Date Visits V isits Requested Authorized [id number] Evaluate and 06/27/2019 06/26/2020 12 12 Treat Encounter Details Date Type Department Care Team Description 07/23/2019 Office Visit Occupational Therapy Raghavendra Hernandes, Carla rpal tunnel at [address] OT syndrome, bilateral [address] [place] [address] PHYSICAL MEDICINE & REHABILITAT [place], [place] [address] Social History Tobacco Use Types Packs/Day Years Used Date Current Every Day Smoker Cigarettes 0.25 Smokeless Tobacco: Never Used Alcohol Use Standard Drinks/Week Comments No 0 (1 standard drink = 0.6 oz pure alcoho l) Not during Sex Assigned at Date Recorded Female 04/13/2020 8:26 AM EST documented as of this encounter Miscellaneous Notes Initial Evaluation - Raghavendra Hernandes, OT - 07/23/2019 7:00 AM EDT OCCUPATIONAL THERAPY INITIAL UPPER EXTREMITY EVALUATION Referral Source: Jennifer Collins MD Follow-up: Today Total Treatment time: 50 Minutes Timed Code Treatment Time: 50 minutes OCCUPATIONAL PROFILE: Shirlene Kovacs is a 34 y.o. year old Right hand dominant female who has an onset of acute carpal tunnel symptoms since her 2nd month of , and she is in her 29th week currently. Her left hand is worse than right - daytime and night time symptoms. She has been only using a wrist wrap to date. Shirlene Kovacs is referred to Occupational Therapy for evaluation and treatment. Patient presents today alone. Date of onset of symptoms: At 2 months into Date of surgery: NA (older small finger right hand injury with fused DIP joint) Pertinent History and/or Co-morbidities: 1. 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 Shirlene reports she is feeling almost constant numbness and tingling to her left hand. This is significantly impacting her night time ability to sleep, and now daytime she is having difficulty picking up objects, gripping, and most functional tasks involving the left hand. Global Mental Function: With gross screening of patient???s global mental functions, patient demonstrates orientation to person, place, time, and situation. Patient???s affect/behavior is appropriate and cooperative today. Patient Specific Functional Scale (PSFS) (unable to perform 0/10 - Able to perform without difficulty 10/10) Activity At Evaluation 1.) wash hair 5 2.) hold coffee cup 0-1 3.) coloring 0-1 4.) sleep 0-1 5.) cooking - cutting food 5 Average Score: 2.3 Disabilities of the Arm, Shoulder, and Hand (DASH): No flowsheet data found. Standardized measurement of functional limitation related to an upper extremity disability, using 0-100 scale indicating percent of perceived functional impairment. Pain: (Assessed using the visual analog pain scale) At Rest: 4-5/10 With Activity: 09/14 Special Testing Completed: tinels positive bilateral guyons negative bilateral Treatment Today: Orthosis - Wrist-Hand Orthotic, W/O Roseanna, Christina [employer] ([id number]) Educated patient in etiology and biomechanics as related to the patient's symptoms Instructed patient in: Rest and activity modification, Appropriate pacing and how to safely return to normal activities, Safe posture and positioning to avoid re-injury and Protocol related to current diagnosis Provided with home exercise program to include median nerve glide flossing, forearm flexor and extensor composite stretching, and flexor tendon glides, see scanned documents Fabricated bilteral custom wrist cock up orthosis to be worn definitely to bed at night and as much as she can during the daytime currently CLINICAL DECISION MAKING: Shirlene Kovacs has an acute case of bilateral carpal tunnel syndrome froma onset case causing functional deficits in ADL/IADL performance. Please see above, PSFS and DASH for specific functional deficits. Shirlene was splinted for rest of her wrist/flexor tendons, and for proper posture to avoid ongoing compression to the carpal tunnel. She was able to demonstrate the provided home program today and abhay/doff orthosis independently. Shirlene Kovacs is able to demonstrate home exercises with written instructions provided. Shirleen Kovacs has good potential for gains with therapy with identified needs for skilled therapy for treatment of deficits noted during evaluation today, to maximize functional performance during daily activities. Short term goal: 1.Patient will be able to abhay and doff each orthosis independently. Met 2. Patient will be able to demonstrate the exercises independently today. - Met PLAN: One time visit for orthosis fabrication and exercise instruction. Patient to call should she need any further splint adjustments. She lives far away but comes to the hospital every Sunday for her appointments. (X) Shirlene Kovacs participated in the evaluation, collaborated on treatment goals, and agrees to the treatment plan. documented in this encounter Plan of Treatment Scheduled Referrals Name Type Priority Associated Diagnoses Order S chedule Referral to Outpatient Referral Routine Paresthesia of both O rdered: Occupational Therapy hands 020 documented as of this encounter Visit Diagnoses Diagnosis Carpal tunnel syndrome, bilateral Carpal tunnel syndrome documented in this encounter Care Teams Poacher Wringer Operator Relationship Specialty Start Date End Date Genet Holland PA PCP - General Family Medicine 02/06/19 05/15/20 [address] [place] [address] documented as of this encounter
--- OUTSIDE RECORDS SUMMARY | 2021-10-20 07:57 | XMS_ITS | Encounter Summary ---
:1985 Author Organization [facility] [place] [address] Care Team Providers Name Role Phone Genet Holland Primary Care Provider Encounter Details Date Type Department Care Team Description 05/28/2019 Telephone Obstetrics and Gynec ology at [facility] [place] [address] Social History Tobacco Use Types Packs/Day Years [...] on filedocumented in this encounter Care Teams Battery Tester And Repairer Relationship Specialty Start Date End Date Genet Holland PA PCP - General Family Medicine 02/06/19 05/15/[address] [place] [id number] documented as of this encounter
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
--- OUTSIDE RECORDS SUMMARY | 2021-10-20 07:57 | XMS_ITS | Encounter Summary ---
:1985 Author Organization [place] [address] Care Team Providers Name Role Phone Genet Holland Primary Care Provider Encounter Details Date Type Department Care Team Description 05/20/2019 Routine Obstetrics and Katerina Doyle G A: 19w2d [facility] [place] [address] OBSTETRICS & [phone] GYNECOLOGY [place], [place] [address] (Wo rk) Social History Tobacco [...] Sign Reading Time Taken Comments Blood Pressure 110/59 05/20/2019 11:29 AM EDT Pulse - - Temperature - - Respiratory Rate - - Oxygen Saturation - - Inhaled Oxygen Concentration - - Weight 83.7 kg (184 lb 9.6 oz) 05/20/2019 11:29 AM EDT Height - - Body Mass Index 27.26 04/30/2019 3:18 PM EDT documented in this encounter Progress Notes Katerina Doyle MD - 05/20/2019 11:00 AM EDT FM felt, no LOF, no bleeding or lyndsey. Some nausea using phenergan US today normal morphology.Bronchitis and febrile respiratory illness has resolved. Was in quarantine for 2 weeks. No other sick family members. Feels well supported by substance treatment program. Is joining virtual groups. Will have weekly f/u wit Jennifer via telehealth/phone. Trying to access [facility] provided number for helpline.Uncertain paternity creating anxiety. F/u in clinic at 28 weeks with GCT, CBC, and TSH. documented in this encounter Plan of Treatment Not on filedocumented as of this encounter Visit Diagnoses Diagnosis Supervision of high risk in se cond trimester Unspecified high-risk documented in this encounter Care Teams Professor Of Practice Relationship Specialty Start Date End Date Genet Holland PA PCP - General Family Medicine 02/06/19 05/15/20 [address] [place] [address] documented as of this encounter
--- OUTSIDE RECORDS SUMMARY | 2021-10-20 07:57 | XMS_ITS | Encounter Summary ---
:1985 Author Organization [facility] [place] [address] Care Team Providers Name Role Phone Genet Holland Primary Care Provider Encounter Details Date Type Department Care Team Description 07/11/2019 External Results Obstetrics and Gynecology [place], [place] [address] Social History Tobacco Use Types Packs/Day Years [...] Name Priority Date/Time Associated Diagnosis Comme nts GESTATIONAL DIABETES Routine 07/04/2019 Results for this SCREEN procedure are i n the results section . EXTERNAL LAB Routine 07/04/2019 Results for thi s HEMATOLOGY/COAG RESULTS proc edure are in the PANEL results section . TSH Routine 07/04/2019 Results for thi s procedure are i n the results section . documented in this encounter Results Hematology / Coag External Results (07/04/2019) P athologist Signature WBC 14.1 H Hemoglobin 11.7 Hematocrit 34.0 MCV 95.0 RBC 3.62 Platelets 308 Specimen (Source) Anatomical Location Collection Method / Collectio n Time Received Time / Laterality Volume 07/04/2019 Historical Provider HEMATOLOGY ORDERABLES Gestational Diabetes Screen (07/04/2019) Analysis Performed At Patho logist Time Signature Gluc 1 Hr 96mg/dl Gestational Specimen (Source) Anatomical Location Collection Method / Collectio n Time Received Time / Laterality Volume Blood specimen 07/04/2019 (specimen) Historical Provider CHEMISTRY ORDERABLES TSH (07/04/2019) P athologist Signature TSH 2.33 Specimen (Source) Anatomical Location Collection Method / Collectio n Time Received Time / Laterality Volume Blood specimen 07/04/2019 (specimen) Historical Provider CHEMISTRY ORDERABLES documented in this encounter Visit Diagnoses Not on filedocumented in this encounter Care Teams Sluice Tender Relationship Specialty Start Date End Date Genet Holland PA PCP - General Family Medicine 02/06/19 05/15/20 [address] [place] [address] documented as of this encounter
--- OUTSIDE RECORDS SUMMARY | 2021-10-20 07:57 | XMS_ITS | Encounter Summary ---
:1985 Author Organization [facility] Address [place] [id number] Care Team Providers Name Role Phone Genet Holland Primary Care Provider Reason for Referral Diagnostic Test (Routine) - Closed Specialty Diagnoses / Procedures Referred By Contact Refer red To Contact Cardiology Diagnoses Palpitations Khai Valentin MD [facility] Non-Inv Card Lab Procedures Echocardiogram Transthoracic([facility]) [facility] [place] [address] [place] [address] Referral ID Status Reason Start Date Expiration Date Visits V isits Requested Authorized [id number] Closed Specialty 04/09/2019 04/08/2020 1 1 Service Requested Reason for Visit Diagnostic Test (Routine) - Closed Specialty Diagnoses / Procedures Referred By Contact Refer red To Contact Cardiology Diagnoses Palpitations Khai Valentin MD [facility] Non-Inv Card Lab Procedures Echocardiogram Transthoracic([facility]) [facility] [place] [address] [place] [address] Referral ID Status Reason Start Date Expiration Date Visits V isits Requested Authorized [id number] Closed Specialty 04/09/2019 04/08/2020 1 1 Service Requested Encounter Details Date Type Department Care Team Description 07/24/2019 Hospital Encounter Non-Invasive Cardiology Sherly Valentin, Palpitations Lab Airam Beltran MD [facility] [address] [place] [address] [place] [phone] (Wo rk) Social History Tobacco Use Types [...] Sig Dispensed Refills Start Date End Date docusate sodium (Colace) Take 1 capsule by [...] Take 1 tablet by 60 tablet 0 04/201908/12/2019 mg Tablet mouth 2 times daily. promethazine (Phenergan) Take 1 tablet by 60 tablet 1 07/0810/06/2019 25 mg Tablet mouth every 6 hours as needed for Nausea. Doxylamine-Pyridoxine Take 1 tablet by 60 tablet 0 06/18/19 20 10/06/2019 10-10 mg Tablet, Delayed mouth 2 times Release (E.C.) daily. Plus, calcium Take 1 tablet by 90 tablet 3 06/17/2 020 09/15/2020 carb, 27 mg iron- 1 mg mouth daily. Tablet albuterol (PROVENTIL Inhale 2 puffs into 1 Inhaler 1 201408/03/2019 HFA;VENTOLIN HFA;PROAIR) the lungs every 4 90 mcg/actuation HFA hours as needed for Aerosol Inhaler Wheezing. Use with spacer documented as of this encounter Plan of Treatment Not on filedocumented as of this encounter Procedures Procedure Name Priority Date/Time Associated Diagnosis Comme nts ECHOCARDIOGRAM Routine 07/24/2019 10:38 Palpitations Results f or this COMPLETE AM EDT procedure are i n the results section. documented in this encounter Results ECHOCARDIOGRAM COMPLETE (07/24/2019 10:38 AM EDT) Anatomical Region Laterality Modality Other Specimen (Source) Anatomical Location Collection Method / Collectio n Time Received Time / Laterality Volume 07/24/2019 Narrative 07/24/2019 11:28 AM EDT Procedure: ?Transthoracic Echocardiogram Patient: ?PARKS SHIRLENE Piter ? (Age): 1985(34y) Med Rec#: ? [id number] ?Sex: ?F ? Site Loc: ? [facility] ?Ht / Wt: ??175(cm)/89(kg) Pt. Loc: ?Echo Lab ?BSA: ?2.05 Study Date: ?? 07/24/2019 ?Pt. Type: Outpatient Tape: ? Referring: TONE Reading: Chencho Owusu ([id number]) Speech Clinician: Mai Gaston Diagnosis: *Palpitations (R00.2) BP: ? 111/59 SUMMARY: 1. The left ventricular chamber size is normal. ??Left ventricular wall thickness is normal. ??There is normal g lobal left ventricular systolic function. ??The quantitative left ventri cular ejection fraction by biplane Contreras's method is 62%. ??There are no left ventricular segmental wall motion abnormalities. 2. Right ventricular chamber size, wall thickness, and systolic function are within normal limits. ??The estimate d pulmonary artery systolic pressure is 20 mmHg. 3. The left atrium is normal in size. ?? The right atrium appears normal. 4. There is no hemodynamically significa nt valve disease. 5. See remainder of report for additiona l findings. Findings ? : Left Ventricle: ? The left ventricul ar chamber size is normal. ?Left ventricular wall thickness is normal. ?There is no evidence of LVOT obstr uction. ?No ventricular septal defect is vi sualized. ?There is normal global left ventri cular systolic function. ?The quantitative left ventricular ejection fraction by biplane Contreras's method is 62%. ?There are no left ventricular segm ental wall motion abnormalities. ?Doppler assessment is consistent w ith normal left sided filling pressure. Left Atrium: ? The left atrium is no rmal in size.(30 ml/m2) ?No atrial septal defect is visuali zed. Right Ventricle: ? Right ventricular chamber size, wall thickness, and systolic function are within normal limi ts. ?The estimated pulmonary artery sys tolic pressure is 20 mmHg. ?The estimated right atrial pressur e is 3 mmHg. Right Atrium: ? The right atrium laz ears normal. Aortic Valve: ? The aortic valve is trileaflet. The leaflets are thin with normal excursion. There is no aorti c stenosis or regurgitation present. Mitral Valve: ? The mitral valve laz ears normal in structure and function. ?There is no evidence of mitral hodo ve leaflet prolapse. ?There is trace mitral regurgitatio n present. Tricuspid Valve: ? The tricuspid hood ve appears normal in structure and function. ?There is trace tricuspid regurgita tion present. Pulmonic Valve: ? The pulmonic valve appears normal in structure and function. ?There is trace pulmonic regurgitat ion present. Pericardium: ? The pericardium appea rs normal and there is no evidence of a pericardial effusion. Aorta: ? The aortic root is normal i n size. ?The ascending aorta is normal in s elio. ?The left main coronary artery is v isualized and originates normally from the aorta. ?The right coronary artery is visua lized and originates normally from the aorta. ?There is no evidence of coarctatio n of the aorta. Pulmonary Artery: ? The main pulmona ry artery appears normal. Venous: ? The inferior vena cava laz ears normal in size. ?There is a greater than 50% respir atory change in the inferior vena cava dimension. Misc: ? There is no hemodynamically significant valve disease. ?See remainder of report for additi onal findings. ?Two-dimensional echo, spectral Dop pler and color Doppler performed. Chambers 2D ?Value ?Units (Range) ? IVSd (2D) ? 0.92 ? cm ? LVPWd (2D) ?0.73 ? cm ? IVS:LVPW ratio (2D) 1.26 ? ratio ? RWT (2D) ?0.36 ? ratio ? RWT PW (2D) ? 0.32 ? ratio ? LVIDd (2D) ?4.55 ? cm ? LVIDs (2D) ?2.81 ? cm ? LVIDd (2D) index ?2.22 ? cm/m2 ? LVIDs (2D) index ?1.37 ? cm/m2 ? LV FS (2D) ?38.23 ?% ? EF Teichholz (2D) ?? 68.56 ?% ? Ao root diameter (2D2.65 ? cm (2.1 - 3.6) ? Ascending Ao ?2.83 ? cm (2 - 3.5) ? Volumes/Mass ?Value ?Units (Range) ? LA Area 4 CH ?18.2 ? cm2 (<21) ? LA ESV BP (A/L) inde29.77 ? ml/m2 ? RA AREA 4CH ? 15.4 ? cm2 ? LV ESV SP 4CH (MOD) 56.73 ? ml ? LV ESV SP 2CH (MOD) 49.94 ? ml ? LV EDV BP ? 144.71 ? ml ? LV ESV BP ? 54.44 ?ml ? LV EDV BP index ? 70.7 ? ml/m2 ? LV ESV BP index ? 26.6 ? ml/m2 ? BP EF (MOD) ? 62.38 ?% ? LV mass (2D) ?120.73 ? g ? LV mass (2D) index ??58.99 ?g/m2 ? Diastolic/Systolic Function ?Value ?Units (Range) ? MV E-wave Vmax ?0.9 ?m/sec ? MV deceleration tola286.24 ? m sec ? MV A-wave Vmax ?0.7 ?m/sec ? MV E:A ratio ?1.28 ? ratio ? LV septal e' Vmax ?? 0.15 ? m/sec ? LV lateral e' Vmax ??0.17 ? m/sec ? LV average e' Vmax ??0.16 ? m/sec ? LV E:e' septal ratio6 ?ratio ? LV E:e' lateral rati5.3 ?ratio ? LV average E:e' rati5.63 ? ratio ? Tricuspid Valve ?Value ?Units (Range) ? TR Vmax ? 2.08 ? m/sec ? TR peak gradient ?17.28 ?mmHg ? RAP ? 3 ?mmHg ? RVSP ?20 ? mmHg ? Wall Motion: Segment Name ?Rest ? Base-Anteroseptal ?? Normal ? Base-Anterior ? Normal ? Base-Anterolateral ??Normal ? Base-Posterolateral Normal ? Base-Inferior ? Normal ? Base-Inferoseptal ?? Normal ? Mid-Anteroseptal ?Normal ? Mid-Anterior ?Normal ? Mid-Anterolateral ?? Normal ? Mid-Posterolateral ??Normal ? Mid-Inferior ?Normal ? Mid-Inferoseptal ?Normal ? Falconer-Septal ? Normal ? Falconer-Anterior ? Normal ? Falconer-Lateral ?Normal ? Falconer-Inferior ? Normal ? Falconer-Tip ?Normal ? This report has been electronically sign ed by: _ Chencho Owusu MD ? 07/24/2019 11:27:36 Images reviewed and interpretation belinda bahena [facility] Cardiac Ultrasound Laboratory Procedure Note Chencho Owusu MD - 07/24/2019Form atting of this note might be different from the original. Procedure: Transthoracic Echocardiogram Patient: CHARLY Dumas (Age): [birth year](34y) Med Rec#: [id number] Sex: F Site Loc: [facility] Ht / Wt: 175(cm)/89(kg) Pt. Loc: Echo Lab BSA: 2.05 Study Date: 07/24/2019 Pt. Type: Outpati ent Tape: Referring: TONE Reading: Chencho Owusu ([id number]) Speech Clinician: Mai Gaston Diagnosis: *Palpitations (R00.2) BP: 111/59 SUMMARY: 1. The left ventricular chamber size is normal. Left ventricular wall thickness is normal. There is normal beryl bal left ventricular systolic function. The quantitative left ventricu lar ejection fraction by biplane Contreras's method is 62%. There a re no left ventricular segmental wall motion abnormalities. 2. Right ventricular chamber size, wall thickness, and systolic function are within normal limits. The estimated pulmonary artery systolic pressure is 20 mmHg. 3. The left atrium is normal in size. Th e right atrium appears normal. 4. There is no hemodynamically significa nt valve disease. 5. See remainder of report for additiona l findings. Findings : Left Ventricle: The left ventricular maryuri mber size is normal. Left ventricular wall thickness is norm al. There is no evidence of LVOT obstructio n. No ventricular septal defect is visuali zed. There is normal global left ventricular systolic function. The quantitative left ventricular eject ion fraction by biplane Contreras's method is 62%. There are no left ventricular segmental wall motion abnormalities. Doppler assessment is consistent with n ormal left sided filling pressure. Left Atrium: The left atrium is normal i n size.(30 ml/m2) No atrial septal defect is visualized. Right Ventricle: Right ventricular chamb er size, wall thickness, and systolic function are within normal limi ts. The estimated pulmonary artery systolic pressure is 20 mmHg. The estimated right atrial pressure is 3 mmHg. Right Atrium: The right atrium appears n ormal. Aortic Valve: The aortic valve is trilea flet. The leaflets are thin with normal excursion. There is no aorti c stenosis or regurgitation present. Mitral Valve: The mitral valve appears n ormal in structure and function. There is no evidence of mitral valve le aflet prolapse. There is trace mitral regurgitation pre sent. Tricuspid Valve: The tricuspid valve laz ears normal in structure and function. There is trace tricuspid regurgitation present. Pulmonic Valve: The pulmonic valve appea rs normal in structure and function. There is trace pulmonic regurgitation p resent. Pericardium: The pericardium appears nor mal and there is no evidence of a pericardial effusion. Aorta: The aortic root is normal in size . The ascending aorta is normal in size. The left main coronary artery is visual ized and originates normally from the aorta. The right coronary artery is visualized and originates normally from the aorta. There is no evidence of coarctation of the aorta. Pulmonary Artery: The main pulmonary art rony appears normal. Venous: The inferior vena cava appears n ormal in size. There is a greater than 50% respiratory change in the inferior vena cava dimension. Misc: There is no hemodynamically signif icant valve disease. See remainder of report for additional findings. Two-dimensional echo, spectral Doppler and color Doppler performed. Chambers 2D Value Units (Range) IVSd (2D) 0.92 cm LVPWd (2D) 0.73 cm IVS:LVPW ratio (2D) 1.26 ratio RWT (2D) 0.36 ratio RWT PW (2D) 0.32 ratio LVIDd (2D) 4.55 cm LVIDs (2D) 2.81 cm LVIDd (2D) index 2.22 cm/m2 LVIDs (2D) index 1.37 cm/m2 LV FS (2D) 38.23 % EF Teichholz (2D) 68.56 % Ao root diameter (2D2.65 cm (2.1 - 3.6) Ascending Ao 2.83 cm (2 - 3.5) Volumes/Mass Value Units (Range) LA Area 4 CH 18.2 cm2 (<21) LA ESV BP (A/L) inde29.77 ml/m2 RA AREA 4CH 15.4 cm2 LV ESV SP 4CH (MOD) 56.73 ml LV ESV SP 2CH (MOD) 49.94 ml LV EDV BP 144.71 ml LV ESV BP 54.44 ml LV EDV BP index 70.7 ml/m2 LV ESV BP index 26.6 ml/m2 BP EF (MOD) 62.38 % LV mass (2D) 120.73 g LV mass (2D) index 58.99 g/m2 Diastolic/Systolic Function Value Units (Range) MV E-wave Vmax 0.9 m/sec MV deceleration gqkg244.24 msec MV A-wave Vmax 0.7 m/sec MV E:A ratio 1.28 ratio LV septal e' Vmax 0.15 m/sec LV lateral e' Vmax 0.17 m/sec LV average e' Vmax 0.16 m/sec LV E:e' septal ratio6 ratio LV E:e' lateral rati5.3 ratio LV average E:e' rati5.63 ratio Tricuspid Valve Value Units (Range) TR Vmax 2.08 m/sec TR peak gradient 17.28 mmHg RAP 3 mmHg RVSP 20 mmHg Wall Motion: Segment Name Rest Base-Anteroseptal Normal Base-Anterior Normal Base-Anterolateral Normal Base-Posterolateral Normal Base-Inferior Normal Base-Inferoseptal Normal Mid-Anteroseptal Normal Mid-Anterior Normal Mid-Anterolateral Normal Mid-Posterolateral Normal Mid-Inferior Normal Mid-Inferoseptal Normal Falconer-Septal Normal Falconer-Anterior Normal Falconer-Lateral Normal Falconer-Inferior Normal Falconer-Tip Normal This report has been electronically sign ed by: _ Chencho Owusu MD 07/24/2019 11:27: 36 Images reviewed and interpretation belinda bahena [facility] Cardiac Ultrasound Laboratory Khai Valentin MD ECHO ORDERABLES documented in this encounter Visit Diagnoses Diagnosis Palpitations documented in this encounter Care Teams [employer] Teacher'S Aide Relationship Specialty Start Date End Date Genet Holland PA PCP - General Family Medicine 02/06/19 05/15/[address] [place] [address] documented as of this encounter
--- OUTSIDE RECORDS SUMMARY | 2021-10-20 07:57 | XMS_ITS | Encounter Summary ---
:1985 [place] [address] Care Team Providers Name Role Phone Genet Holland Primary Care Provider Encounter Details Date Type Department Care Team Description 05/20/2019 Hospital Encounter Radiology at [facility] Katerina Lima Supervision of [facility] MD Elizabeth risk in [facility] first trimester [place], [place] [id number] OBSTETRICS & [phone] GYNECOLOGY [place], [place] [address] Social History Tobacco Use Types [...] End Date buprenorphine-naloxone Place 16 mg of 56 each 0 0 06/11/2019 (SUBOXONE) 8-2 mg Film opiate under the tongue daily. docusate sodium (Colace) Take 1 capsule by 60 capsule 5 05/201907/04/2019 100 mg Capsule mouth 2 times daily. polyethylene glycol Take 17 g by mouth 510 g 5 05/10/19 20 07/04/2019 (Miralax) 17 gram/dose 2 times daily. PowderIndications: Constipation, unspecified constipation type FLUoxetine (PROzac) 20 mg Take 2 tablets by 60 tablet 3 10/201907/09/2019 Tablet mouth daily. Plus, calcium Take 1 tablet by 90 tablet 3 04/08/2 020 06/18/2019 carb, 27 mg iron- 1 mg mouth daily. Tablet labetaloL (Normodyne) 100 Take 1 tablet by 60 tablet 11 05/201907/09/2019 mg Tablet mouth 2 times daily. promethazine (PHENERGAN) Take 1 tablet by 60 tablet 1 02/1907/09/2019 25 mg Tablet mouth every 6 hours as needed for Nausea. levothyroxine (SYNTHROID) Take 75 mcg by 0 07/09/2019 175 mcg Tablet mouth. albuterol (PROVENTIL Inhale 2 puffs into 1 Inhaler 1 201408/03/2019 HFA;VENTOLIN HFA;PROAIR) the lungs every 4 90 mcg/actuation HFA hours as needed for Aerosol Inhaler Wheezing. Use with spacer documented as of this encounter Plan of Treatment Not on filedocumented as of this encounter Procedures Procedure Name Priority Date/Time Associated Diagnosis [facility] DETAILED Routine 05/20/2019 11:03 Supervision of high Beth chakraborty for this MORPHOLOGY AM EDT risk in procedure are in first trimester the results section. documented in this encounter Results US OB Detailed Morphology (05/20/2019 11:03 AM EDT) Anatomical Region Laterality Modality Pelvis, Abdomen Ultrasound Specimen (Source) Anatomical Collection Method Collection Time Re ceived Time Location / / Volume Laterality 05/20/2019 10:02 AM EDT Impressions 05/20/2019 11:02 AM EDT 2nd Trimester - Detailed Morphology - S ummary Single intrauterine with a ge stational age of 19w 2d based on U/S C R L ??(03/05/19) Composite age based on the current ultr asound alone is 19w 3d. Current growth parameters are consisten t with prior dating indicating normal growth. Amniotic fluid volume is Normal Detailed anatomic evaluation was performed and no structural abnormalities are noted. ? Katerina Lima, Staff Stephen hart Electronically Signed Final Report ?? 11:02 am Narrative 05/20/2019 11:02 AM EDT OBSTETRICS REPORT ? (Signed Final 05/20/2019 11:02 am) PATIENT INFO: ID #: ? [id number] ?: ??[birth year] (33 yrs)(F) Name: ? SHIRLENE PARKS ?Visit Date: 05/20/2019 10:02 am PERFORMED BY: Performed By: ? Rose Peña RDMS Attending: ?Vivek NAPOLES, Britni Rooney Referred By: ?KATERINA LIMA Location: ? [place] SERVICE(S) PROVIDED: ??[facility] - Detailed Morphology - [id number] ? [id number] INDICATIONS: ??19 weeks gestation of ?Z3A.19 ??substance use disorder VITAL SIGNS: Weight (lb): 177.0 Height: ?5'9 ?BMI: ?26.14 EVALUATION: Num Of Fetuses: ?1 Heart Rate(bpm): ?? 143 Cardiac Activity: ?Observed, normal rhythm Presentation: ?Cephalic Placenta: ?Folder Inspector ior P. Cord Insertion: ? Within Norm al Limits Amniotic Fluid CHRISTIE FV: ?Normal --------- BIOMETRY: --------- BPD: ?45.4 ??mm ? G.Age: ?? 19w 5d OFD: ?59.0 ??mm HC: ?167.2 ??mm ? G.Age: ?? 19w 3d AC: ?144.2 ??mm ? G.Age: ?? 19w 5d FL: ? 28.5 ??mm ? G.Age: ?? 18w 5d HUM: ?26.6 ??mm ? G.Age: ?? 18w 3d CER: ?18.4 ??mm ? G.Age: ?? 18w 1d NFT: ? 4.7 ??mm NB: ?6.6 ??mm LV: ?6.1 ??mm CM: ?3.7 ??mm CI: ?76.9 ??% ? 70 - 86 FL/HC: ? 17.0 ??% ? 16.1 - 18.3 HC/AC: ? 1.16 ?1.09 - 1.39 FL/BPD: ?62.8 ??% FL/AC: ? 19.8 ??% ? 20 - 24 Est. FW: ? 285 ?? gm ?? 0 lb 10 oz OB HISTORY: Blood Type: ?A+ : ?4 ? Term: ?? 1 ? SAB: ?? 2 Living: ? 1 GESTATIONAL AGE: U/S Today: ? 19w 3d ?ASHLIE: ?? 10/11/19 Best: ?19w 2d ?? Det. By: ??U/S C R L ?ASHLIE: ?? 10/12/19 ? (03/05/19) TARGETED ANATOMY: Central Nervous System Calvarium/Cranial V.: ??Within Normal L imits Intracranial Vidya: ? Within Normal Limits Cavum: ? Within N ormal Limits Parenchyma: ?Within Nor mal Limits Lateral Ventricles: ?Within Normal Limits Choroid Plexus: ?Within Oly l Limits Cereb./Vermis: ? Within Oly l Limits Cisterna Magna: ?Within Oly l Limits Midline Falx: ?Within Norm al Limits Spine Cervical: ?Visualize d Thoracic: ?Visualize d Lumbar: ?Visualiz ed Sacral: ?Visualiz ed Shape/Curvature: ? Visualized Head/Neck Face: ?Within Normal Limits Lips: ?Within Normal Limits Neck: ?Within Normal Limits Nuchal Fold: ? Within Norm al Limits Nasal Bone: ?Present Profile: ? Visualize d Orbits/Eyes: ? Visualized Mandible: ?Visualize d Maxilla: ? Visualize d Thorax Thoracic Contour: ?Within Normal Limits Lungs: ? Visualiz ed 4 Chamber View: ?Within Oly l Limits Cardiac Motion: ?Normal Rhyth m Rt Outflow Tract: ?Visualized Lt Outflow Tract: ?Visualized Aortic Arch: ? Visualized Ductal Arch: ? Visualized SVC: ? Visuali zed Cardiac Horicon: ?Visualized Diaphragm: ? Visualized 3 Vessel View: ? Visualized IVC: ? Visuali zed Abdomen Ventral Wall: ?Visualized Cord Insertion: ?Visualized Situs: ? Normal Stomach: ? Visualize d Liver: ? Visualiz ed Lt Kidney: ? Visualized Rt Kidney: ? Visualized Bladder: ? Visualize d Bowel: ? Visualiz ed Extremities Lt Humerus: ?Within Nom al Limits Rt Humerus: ?Within Nor mal Limits Lt Forearm: ?Within Nor mal Limits Rt Forearm: ?Within Nor mal Limits Lt Hand: ? Within No rmal Limits Rt Hand: ? Within No rmal Limits Lt Femur: ?Within No rmal Limits Rt Femur: ?Within No rmal Limits Lt Lower Leg: ?Within Norm al Limits Rt Lower Leg: ?Within Norm al Limits Lt Foot: ? Visualize d Rt Foot: ? Visualize d Other Umbilical Cord: ?3 vessel cor d Genitalia: ? Female CERVIX UTERUS ADNEXA: Left Ovary Not visualized Right Ovary Size(cm) ? 1.6 ??x ?? 1.9 ?x ??1.8 ? Vol(ml): 2.8 Visualized Procedure Note Katerina Lima MD - 05/20/2019Form atting of this note might be different from the original. OBSTETRICS REPORT (Signed Final 020 11:02 am) PATIENT INFO: ID #: [id number] : [birth year] (33 y rs)(F) Name: SHIRLENE PARKS Visit Date: 05/19 10:02 am PERFORMED BY: Performed By: Rose Peña RDMS Attending: Katerina Lima MD Referred By: KATERINA LIMA Location: [facility] SERVICE(S) PROVIDED: [facility] - Detailed Morphology - [id number] INDICATIONS: 19 weeks gestation of Z3A.19 substance use disorder VITAL SIGNS: Weight (lb): 177.0 Height: 5'9 BMI: 26.14 EVALUATION: Num Of Fetuses: 1 Heart Rate(bpm): 143 Cardiac Activity: Observed, normal rhyt hm Presentation: Cephalic Placenta: Posterior P. Cord Insertion: Within Normal Limits Amniotic Fluid CHRISTIE FV: Normal --------- BIOMETRY: --------- BPD: 45.4 mm G.Age: 19w 5d OFD: 59.0 mm HC: 167.2 mm G.Age: 19w 3d AC: 144.2 mm G.Age: 19w 5d FL: 28.5 mm G.Age: 18w 5d HUM: 26.6 mm G.Age: 18w 3d CER: 18.4 mm G.Age: 18w 1d NFT: 4.7 mm NB: 6.6 mm LV: 6.1 mm CM: 3.7 mm CI: 76.9 % 70 - 86 FL/HC: 17.0 % 16.1 - 18.3 HC/AC: 1.16 1.09 - 1.39 FL/BPD: 62.8 % FL/AC: 19.8 % 20 - 24 Est. FW: 285 gm 0 lb 10 oz OB HISTORY: Blood Type: A+ : 4 Term: 1 SAB: 2 Livin GESTATIONAL AGE: U/S Today: 19w 3d ASHLIE: 10/11/19 Best: 19w 2d Det. By: U/S C R L ASHLIE: (03/05/19) TARGETED ANATOMY: Central Nervous System Calvarium/Cranial V.: Within Normal Candelario its Intracranial Vidya: Within Normal Limits Cavum: Within Normal Limits Parenchyma: Within Normal Limits Lateral Ventricles: Within Normal Limit s Choroid Plexus: Within Normal Limits Cereb./Vermis: Within Normal Limits Cisterna Magna: Within Normal Limits Midline Falx: Within Normal Limits Spine Cervical: Visualized Thoracic: Visualized Lumbar: Visualized Sacral: Visualized Shape/Curvature: Visualized Head/Neck Face: Within Normal Limits Lips: Within Normal Limits Neck: Within Normal Limits Nuchal Fold: Within Normal Limits Nasal Bone: Present Profile: Visualized Orbits/Eyes: Visualized Mandible: Visualized Maxilla: Visualized Thorax Thoracic Contour: Within Normal Limits Lungs: Visualized 4 Chamber View: Within Normal Limits Cardiac Motion: Normal Rhythm Rt Outflow Tract: Visualized Lt Outflow Tract: Visualized Aortic Arch: Visualized Ductal Arch: Visualized SVC: Visualized Cardiac Horicon: Visualized Diaphragm: Visualized 3 Vessel View: Visualized IVC: Visualized Abdomen Ventral Wall: Visualized Cord Insertion: Visualized Situs: Normal Stomach: Visualized Liver: Visualized Lt Kidney: Visualized Rt Kidney: Visualized Bladder: Visualized Bowel: Visualized Extremities Lt Humerus: Within Nomal Limits Rt Humerus: Within Normal Limits Lt Forearm: Within Normal Limits Rt Forearm: Within Normal Limits Lt Hand: Within Normal Limits Rt Hand: Within Normal Limits Lt Femur: Within Normal Limits Rt Femur: Within Normal Limits Lt Lower Leg: Within Normal Limits Rt Lower Leg: Within Normal Limits Lt Foot: Visualized Rt Foot: Visualized Other Umbilical Cord: 3 vessel cord Genitalia: Female CERVIX UTERUS ADNEXA: Left Ovary Not visualized Right Ovary Size(cm) 1.6 x 1.9 x 1.8 Vol(ml): 2.8 Visualized IMPRESSION 2nd Trimester - Detailed Morphology - S ummary Single intrauterine with a ge stational age of 19w 2d based on U/S C R L (03/05/19) Composite age based on the current ultr asound alone is 19w 3d. Current growth parameters are consisten t with prior dating indicating normal growth. Amniotic fluid volume is Normal Detailed anatomic evaluation was performed and no structural abnormalities are noted. Katerina Lima, Staff Physician Electronically Signed Final Report 05/19 11:02 am Katerina Lima MD IMG OB ORDERABLES documented in this encounter Visit Diagnoses Diagnosis Supervision of high risk in fi rst trimester Unspecified high-risk documented in this encounter Care Teams Admitting Manager Relationship Specialty Start Date End Date Genet Holland PA PCP - General Family Medicine 02/06/19 05/15/[address] [place] [id number] documented as of this encounter
--- OUTSIDE RECORDS SUMMARY | 2021-10-20 07:57 | XMS_ITS | Encounter Summary ---
:1985 [place] [address] Care Team Providers Name Role Phone Genet Holland Primary Care Provider Encounter Details Date Type Department Care Team Description 07/30/2019 Telephone [facility] [place] [address] Social History Tobacco Use Types Packs/Day Years Used Date Current Every Day Smoker Cigarettes 0.25 Smokeless Tobacco: Never Used Alcohol Use Standard Drinks/Week Comments No 0 (1 standard drink = 0.6 oz pure alcoho l) Not during Sex Assigned at Date Recorded Female 04/13/2020 8:26 AM EST documented as of this encounter Miscellaneous Notes Telephone Encounter - Kaylah Amanda CCMA - 07/30/2019 9:25 AM EDT Covid19 Received call from Jennifer Wu APRN requesting testing for patient. [facility] Employee? Yes[] No [] Symptoms: Cough [x] Difficulty breathing [] SOB [] Fever [] Sore throat [] Chills [] Repeated shaking with chills [] CARLIN [] Loss of taste smell [] No symptoms [] Pre op/pre admission [] Surgery date: Location: Comments/reason for call: Reported patient is having nasal congestion, cough. Ordering provider: Jennifer Wu APRN [phone] Best number to call back: [phone] documented in this encounter Plan of Treatment Not on filedocumented as of this encounter Visit Diagnoses Not on filedocumented in this encounter Care Teams Ross Furnace Operator Relationship Specialty Start Date End Date Genet Holland PA PCP - General Family Medicine 02/06/19 05/15/20 [address] [place] [address] documented as of this encounter
--- OUTSIDE RECORDS SUMMARY | 2021-10-20 07:57 | XMS_ITS | Encounter Summary ---
:1985 Author Organization [facility] [place] [address] Care Team Providers Name Role Phone Genet Holland Primary Care Provider Reason for Visit Reason Comments Vaginal Leakage 14w6d Encounter Details Date Type Department Care Team Description 04/19/2019 Emergency Emergency Department Genet Brothers A bnormal vaginal fluids Airam Beltran MD (Primary Dx) [facility] [place] [address] [place] [address] [phone] Social History Tobacco Use Types Packs/Day Years [...] Sign Reading Time Taken Comments Blood Pressure 110/56 04/19/2019 8:42 PM EDT Pulse 58 04/19/2019 8:42 PM EDT Temperature 36.8 ??C (98.2 ??F) 04/19/2019 6:27 PM EDT Respiratory Rate 16 04/19/2019 8:42 PM EDT Oxygen Saturation 100% 04/19/2019 8:42 PM EDT Inhaled Oxygen Concentration - - Weight 80.3 kg (177 lb) 04/19/2019 6:27 PM EDT Height 175.3 cm (5' 9) 04/19/2019 6:27 PM EDT Body Mass Index 26.14 04/19/2019 6:27 PM EDT documented in this encounter Discharge Instructions Discharge InstructionsStGerman bonilla MD - 04/19/2019 11:49 PM EDT You were seen in the emergency department for concerns about your loss of vaginal fluid and abdominal pain. The ultrasound done here showed a good heart rate for your baby and PHOTOGRAPH ENLARGER evaluated you and found no sign of amniotic fluid or any concerning features to your exam. They have arranged a follow-up appointment with you next week which you should go to. If you experience any increase or change inyour abdominal pain, new or concerning vaginal fluid, vaginal bleeding, dizziness, fever, or any other concerns please do not hesitate to seek immediate medical attention. documented in this encounter Medications at Time of Discharge Medication Sig Dispensed Refills Start Date End Date cephALEXin (Keflex) 500 Take 500 mg by 0 04/23/2019 mg Capsule mouth 4 times daily. UTI buprenorphine-naloxone Place 16 mg of 14 each 0 0 04/23/2019 (SUBOXONE) 8-2 mg Film opiate under the tongue daily. FLUoxetine (PROzac) 20 mg Take 2 tablets by 60 tablet 3 10/201907/09/2019 Tablet mouth daily. polyethylene glycol Take 17 g by mouth 510 g 5 04/09/19 20 05/10/2019 (Miralax) 17 gram/dose 2 times daily. PowderIndications: Constipation, unspecified constipation type docusate sodium (Colace) Take 1 capsule by 60 capsule 5 05/201905/10/2019 100 mg Capsule mouth 2 times daily. Plus, calcium Take 1 tablet by 90 tablet 3 2 020 06/18/2019 carb, 27 mg iron- 1 [...] with spacer documented as of this encounter Progress Notes Joan Mccarthy MD - 04/19/2019 7:30 PM EDT OB Triage Note 04/19/2019 7:30 PM Shirlene Kovacs is a 33 y.o. year old female with an ASHLIE of 10/12/2019, by Ultrasound who is at 14w6d weeks gestation. Chief Complaint: The patient presents for evaluation of potential ROM. HPI: Shirlene reports that she felt a gush of fluid around 1030 this morning - she noticed that her underwear was soaking wet and it soaked through a little bit to her pants. She felt initially like she was continuing to leak, but currently has not felt anything for the past several hours. She reports some mild back pain, which she thinks may be from lying in ED bed. She denies any vaginal bleeding. She has been on Keflex since Monday 04/10 for UTI diagnosed at [facility]. She denies any current urinary tract infection symptoms or symptoms of vaginitis. She denies abdominal trauma, intercourse within the last 24 hours, and any recent drug use. She doesreport an unprotected sexual encounter approximately 3 to 4 weeks ago. She has a history of substance use disorder. She last used in Nov 2018 (crack cocaine, bath salts, marijuana). She has been in motivated recovery since her ex partner overdosed and several months ago. She has also cut down on her cigarette use and reports that she is currently smoking ~3 cigarettes daily. PE Temp: [36.8 ??C (98.2 ??F)] Heart Rate: [60] Resp: [16] BP: (107)/(54) SpO2: [100 %] Heart Rate from SpO2: [61 bpm-64 bpm] Per emergency resident, heart rate in the 150s by ultrasound and movement noted on ultrasound. This was not repeated by the OB team. Sterile Speculum: External genitalia normal in appearance and dry at the perineum. Vaginal vault noted for thick white-green discharge. Chlamydia gonorrhea swab was collected. Specimen was negative forferning, no pooling was visualized, pH 4.0. The following Labs were obtained: IMELDA, GC chlamydia Assessment 33 y.o. year old female with an 10/12/2019, by Ultrasound who is at 14w6d weeks gestation being evaluated for PPROM. Plan: -Sterile speculum exam negative for rupture of membranes -Vaginal exam mildly concerning for yeast infection. Wet mount not performed in emergency room and she reported that she has no symptoms of vaginitis. Discussed that if she does develop symptoms of itching or burning, she could try [id number] Monistat vaginal treatment. -GC/CT collected -She has follow-up scheduled with michael leslie on Sunday. If I receive her GC chlamydia results prior to that I will call her on the phone. -She consented to a IEMLDA today in the emergency room, returned positive for only presumptive buprenorphine as expected Patient was seen and discussed with Dr. Joan Mccarthy, attending PHOTOGRAPH ENLARGER. Hiral Flowers MD, PGY-1 04/19/2019 7:30 PM I saw and evaluated Shirlene Kovacs after Dr. Flowers and I agree with the above documentation, assessment and plan. JOAN MCCARTHY MD documented in this encounter ED Notes German Coello MD - 04/19/2019 6:14 PM EDT Shirlene Kovacs is an 33 y.o. female who presents to the ED with: Chief Complaint Patient presents with ??? Vaginal Leakage 14w6d I saw this patient 04/19/2019 at ~ 11:45 PM HPI Shirlene Kovacs is a 33 y.o. female 14 weeks 6 days, G5, P1 with a PMH significant for her palpitations who presents to the Emergency Department with loss of vaginal fluid. Patient states she was at work around 1030 today when she was a large gush of fluid from her vagina. She states that it has continued to come since the initial visit but it was larger than she had experienced ever before.She denies her being any sent to the fluid and states that it was clear. She denies any blood in thefree fluid, denies any recent sexual activity, denies any trauma to his her abdomen, and denies any pain initially but states of hours later she developed a sharp suprapubic pain which she describes asa crampy type feeling but does not feel like contractions. She states later in the day she went swimming in a pool constitution party which she was continuing to lose vaginal free fluid so she decided to come in [facility]. Patient states last week she was at a outside hospital emergency department where she was diagnosed with tonsillitis and a UTI and started on Keflex which she is still taking. She states her previous miscarriages were at 8 weeks and 1 at 3 months. She states that she has not felt any movement today but has felt movement previously. Social History Socioeconomic History ??? Marital status: Spouse name: None ??? Number of children: None ??? Years of education: None ??? Highest education level: None Occupational History ??? Occupation: unemployed Social Needs ??? Financial resource strain: None ??? Food insecurity Worry: None Inability: None ??? Transportation needs Medical: None Non-medical: None Tobacco Use ??? Smoking status: Current Every Day Smoker Packs/day: 0.50 Types: Cigarettes ??? Smokeless tobacco: Never Used Substance and Sexual Activity ??? Alcohol use: No Comment: Not during ??? Drug use: Yes Types: Cocaine, Injected Drugs, Narcotics, Opioids Comment: In the past ??? Sexual activity: Yes Partners: Female, Male Lifestyle ??? Physical activity Days per week: None Minutes per session: None ??? Stress: None Relationships ??? Social connections Talks on phone: None Gets together: None Attends christian service: None Active member of club or organization: None Attends meetings of clubs or organizations: None Relationship status: None ??? Intimate partner violence Fear of current or ex partner: None Emotionally abused: None Physically abused: None Forced sexual activity: None Other Topics Concern ??? Service No ??? [...] abuse at this time. Review of Systems: Review of Systems Constitutional: Negative for chills, fatigue and fever. HENT: Negative for trouble swallowing and voice change. Eyes: Negative for photophobia and visual disturbance. Respiratory: Negative for cough, chest tightness and shortness of breath. Cardiovascular: Negative for chest pain and palpitations. Gastrointestinal: Positive for abdominal pain. Negative for diarrhea, nausea and vomiting. Genitourinary: Positive for vaginal discharge. Negative for dysuria, flank pain and vaginal bleeding. Musculoskeletal: Negative for neck pain and neck stiffness. Skin: Negative for rash and wound. Neurological: Negative for dizziness, seizures, syncope, facial asymmetry, numbness and headaches. Psychiatric/Behavioral: Negative for confusion and decreased concentration. Vital Signs: Patient Vitals for the past 24 hrs: BP Temp Temp src Pulse Resp SpO2 Height Weight 04/19/192041 110/56 -- -- 58 16 100 % -- -- 04/19/19 1827 -- 36.8 ??C (98.2 ??F) Oral 60 16 -- 175.3 cm (5' 9) 80.3 kg (177 lb) 04/19/19 181 -- -- -- -- -- 100 % -- -- 04/19/19 1818 -- -- -- -- -- 100 % -- -- 04/19/191816 107/54 -- -- -- -- -- -- -- I have reviewed the vital signs, which demonstrates Physical Exam: Physical Exam Constitutional: General: She is not in acute distress. Appearance: Normal appearance. She is not ill-appearing. HENT: Head: Normocephalic and atraumatic. Eyes: Conjunctiva/sclera: Conjunctivae normal. Pupils: Pupils are equal, round, and reactive to light. Neck: Musculoskeletal: Normal range of motion and neck supple. Cardiovascular: Rate and Rhythm: Normal rate and regular rhythm. Pulmonary: Effort: Pulmonary effort is normal. No respiratory distress. Breath sounds: Normal breath sounds. Abdominal: General: Abdomen is flat. Tenderness: There is abdominal tenderness in the suprapubic area. Comments: Musculoskeletal: General: No swelling or tenderness. Skin: General: Skin is warm and dry. Capillary Refill: Capillary refill takes less than 2 seconds. Neurological: General: No focal deficit present. Mental Status: She is alert and oriented to person, place, and time. Psychiatric: Mood and Affect: Mood normal. Behavior: Behavior normal. ED Course: - Patient was evaluated and discussed with Dr. Brothers - Medications, allergies and past medical history reviewed - Nursing notes and vital signs reviewed - Medications and fluid administered: Medications - No data to display - I have reviewed the labs, which are significant for: Recent Results (from the past 24 hour(s)) Rapid Drug Screen, Urine (IMELDA Request) Result Value Ref Range IMELDA Conf Requested Yes IMELDA Requested See Comment Rapid Drug Screen w/ Confirmation, Urine Result Value Ref Range U Barbiturates Screen None Detected None Detected U Benzodiazepines Screen None Detected None Detected U Cocaine Screen None Detected None Detected U Methadone Metabolites Screen None Detected None Detected U Opiate Screen None Detected None Detected U Cannabinoid Screen None Detected None Detected U Oxycodone Screen None Detected None Detected U Buprenorphine Screen Presumptive Pos (A) None Detected U Fentanyl Screen None Detected None Detected U Tricyclics Screen None Detected None Detected U Ethanol Screen None Detected None Detected U Amphetamines Screen None Detected None Detected U Adulterants Screen None Detected None Detected Assessment and Plan: MDM: Shirlene Kovacs is a 33 y.o. female 14 weeks 6 days, G5, P1 with a PMH significant for her palpitations who presents to the Emergency Department with loss of vaginal fluid. The patient presented hemodynamically in no signs of any acute distress. On the differential is labor, placentalabruption, placenta previa, urinary incontinence, among others. The patient's history of previous spontaneous abortions and her feeling of loss of significant amount of free fluid with some abdominal pain is concerning for rupture of amniotic membranes. A bedside ultrasound was obtained of her abdomenwhich showed good movement and normal heart rate. PHOTOGRAPH ENLARGER was consulted who saw the patient and performed a sterile speculum exam. They found no evidence of a ruptured amniotic membrane. They felt after the examination that the patient was safe to be discharged home and to follow-up with OB and follow-up in clinic next week. Patient was discharged home and given return precautions for any increase or change in her abdominalpain, new or concerning vaginal fluid, vaginal bleeding, dizziness, fever, or any other concerns nothesitate to seek immediate medical attention. Return precautions were verbally discussed with the patient. The patient expressed understanding that they could come back to the ED at any time and agreed to the follow-up plan. Plan: - Discharge home - Follow up with OB - Return precautions were discussed with the pt German Coello MD EM Resident, PGY-1 04/19/19 11:45 PM German Coello MD Resident 04/19/19 [id number] Associated attestation - Genet Brothers MD - 04/20/2019 2:45 PM EDT ED ATTENDING ATTESTATION NOTE The patient was seen in conjunction with Dr. Coello, the resident physician. I have independently performed the jack portions of the history and physical exam. I have reviewed the nursing notes, vitalsigns, and all diagnostic studies personally including labs, imaging studies and EKGs. I have discussed the details of the case with the resident and agree with the assessment and plan as described in the resident note unless noted otherwise. Brief Summary: 33 y.o. F with leakage of fluid during . See in department by OB who ruled out amniotic leak, see note for further details. Active movement on US with HR in 150s. Patient will follow up with OB next week. Should finish course of abx for previously dx UTI. Final Assessment: 33 y.o. F with concern for amniotic fluid leak. Did this case involve critical care? No Rowena Noyola RN - 04/19/2019 6:07 PM EDT Called BP charge nurse and they want to pt to be seen/worked up in the ED documented in this encounter Miscellaneous Notes ED Triage - Ximena Richard RN - 04/19/2019 6:26 PM EDT Pt stated she had a gush of fluid, cont to have slightly damp leak, good FHT 150, recent UTI, slightsuprapubic pain but no cramping. documented in this encounter Plan of Treatment Not on filedocumented as of this encounter Procedures Procedure Name Priority Date/Time Associated Diagnosis Comme nts RAPID DRUG SCREEN, STAT 04/19/2019 8:30 PM Res ults for this URINE (IMELDA REQUEST) EDT procedur e are in the results section. RAPID DRUG SCREEN STAT 04/19/2019 8:30 PM Resu lts for this W/ CONFIRMATION, EDT procedure a re in URINE the results section. U STAT 04/19/2019 8:30 PM Results f or this BUPRENORPHINE+METAB EDT procedur e are in OLITES the results section. HC GC GENE AMP STAT 04/19/2019 8:24 PM Results for this EDT procedure are i n the results section. documented in this encounter Results U Buprenorphine+Metabolites (04/19/2019 8:30 PM EDT) athologist Signature U Buprenorphine 44.8 Cutoff: AIRAM BELTRAN 5.0 ng/mL [facility] Comment: Test Performed by: [facility] [place] [address] Lay Out Drafter: Magdaleno Henriquez M.D. Ph. D.; CLIA# [id number] U Norbuprenorphine 418.3 Cutoff: 2.5 ng/mL [facility] Comment: ADDITIONAL INFORMATIO N Testing performed by Liquid Chromatograp hy-Tandem Mass Spectrometry (LC-MS/MS). This test was developed and its performa nce characteristics determined by [facility] in a manner co nsistent with CLIA requirements. This test has not been ruma ared or approved by the U.S. Food and Drug Administration. Test Performed by: [place] [address] Lay Out Drafter: Magdaleno Henriquez M.D. Ph. D.; CLIA# [id number] Specimen Anatomical Collection Method Collection Time Receive d Time (Source) Location / / Volume Laterality Urine specimen 04/19/2019 8:30 PM 020 (specimen) EDT 10:47 AM EDT Resulting Agency Comment Spec In Lab Hiral Flowers MD CHEMISTRY ORDERABLES Performing Organization Address City/State/[place] [address] (ABNORMAL) Rapid Drug Screen w/ Confirmation, Urine (04/19/2019 8:30 PM EDT) [facility] Method Time Signature U Barbiturates None None [facility] Screen Detected Detected [facility] Comment: The barbiturate screen [...] U Benzodiazepines Screen None Detected None Detected [facility] Comment: The benzodiazepines screen detects [...] U Cocaine Screen None Detected None Detected [facility] Comment: The cocaine metabolites screen detects b enzoylecgonine (Cocaine Metabolite) at concentrations >150 ng/mL. A ? Presumptive Positive? result indicates that the screening result was positive but has not yet been confirmed by a highly-specific method. As with any screen, occasional false positive re sults from cross-reacting substances may occur. Not for Medico-Legal Purposes. U Methadone Metabolites None Detected None Detected [facility] Comment: The methadone metabolite screen detects EDDP (major methadone metabolite) at concentrations >100 ng/mL. A ? Presumptive Positive? result indicates that the screening result was positive but has not yet been confirmed by a highly-specific method. As with any screen, occasional false positive re sults from cross-reacting substances may occur. Not for Medico-Legal Purposes. U Opiate Screen None Detected None Detected [facility] Comment: The opiates screen detects opiates at co ncentrations >300 ng/mL. Please note that oxycodone, oxymorphone, fentanyl, tramadol, and other synthetic opioids are not detected by e opiate screen. A ? Presumptive Positive? result indicates that the screening result was positive but has not yet been confirmed by a highly-specific method. As with any screen, occasional false positive re sults from cross-reacting substances may occur. Not for Medico-Legal Purposes. U Cannabinoid Screen None Detected None Detected [facility] Comment: The marijuana metabolites screen detects the THC metabolite (84-dte-8-carboxy-delta 9-THC) at concen trations >20 ng/mL. A ? Presumptive Positive? result indicates that the screening result was positive but has not yet been confirmed by a highly-specific method. As with any screen, occasional false positive re sults from cross-reacting substances may occur. Not for Medico-Legal Purposes. U Oxycodone Screen None Detected None Detected [facility] Comment: The oxycodone screen detects oxycodone a nd oxymorphone at concentrations >100 ng/mL. A ? Presumptive Positive? result indicates that the screening result was positive but has not yet been confirmed by a highly-specific method. As with any screen, occasional false positive re sults from cross-reacting substances may occur. Not for Medico-Legal Purposes. U Buprenorphine Screen Presumptive Pos (A) None Detected [facility] Comment: The buprenorphine screen detects bupreno rphine at concentrations >5 ng/mL. A ? Presumptive Positive? result indicates that the screening result was positive but has not yet been confirmed by a highly-specific method. As with any screen, occasional false positive re sults from cross-reacting substances may occur. Not for Medico-Legal Purposes. U Fentanyl Screen None Detected None Detected [facility] Comment: The fentanyl screen detects fentanyl at concentrations >2 ng/mL. A ? Presumptive Positive? result indicates that the screening result was positive but has not yet been confirmed by a highly-specific method. As with any screen, occasional false positive re sults from cross-reacting substances may occur. Not for Medico-Legal Purposes. U Tricyclics Screen None Detected None Detected KELLI [facility]QUIS [facility] Comment: The tricyclics screen [...] U Ethanol Screen None Detected None Detected [facility] Comment: This urine ethanol assay detect s ethanol at concentrations >/= 100 mg/L. U Amphetamines Screen None Detected None Detected [facility] Comment: The amphetamine screen detects [...] Screen None Detected None Detected [facility] Comment: No adulteration or dilution of this urin e sample was detected. All urine samples submitted for urine drugs of abu se analysis are tested for creatinine concentration, pH, and for the presence of oxidants, nitrites, and chromate. Specimen Anatomical Collection Method Collection Time Receive d Time (Source) Location / / Volume Laterality Urine specimen 04/19/2019 8:30 PM 020 8:40 (specimen) EDT PM EDT Resulting Agency Comment Spec In Lab Hiral Flowers MD CHEMISTRY ORDERABLES Performing Organization Address City/State/[place] [address] Rapid Drug Screen, Urine (IMELDA Request) (04/19/2019 8:30 PM EDT) Patholo gist Method Time Signature IMELDA Conf [facility] IMELDA Requested See Comment [facility] Comment: Refer to Rapid Drug Screen w/ C onfirmation, Urine for results. Specimen Anatomical Collection Method Collection Time Receive d Time (Source) Location / / Volume Laterality Urine specimen 04/19/2019 8:30 PM 020 8:40 (specimen) EDT PM EDT Resulting Agency Comment Spec In Lab Joan Mccarthy MD URINE ORDERABLES Performing Organization Address City/[facility]/[place] [address] GC/Chlamydia ([facility]/CGP/APD) Cervical (04/19/2019 8:24 PM EDT) P athologist Signature GC Gene Amp Negative Negative [facility] Comment: The only FDA approved specimen types for this assay are cervical, vaginal, urethral and urine. Non-FDA approved rika rces are eye, throat and rectal and have been internally validated. GC Source Cervical [facility] Chlamydia Gene Amp Negative Negative [facility] Comment: The only FDA approved specimen types for this assay are cervical, vaginal, urethral and urine. Non-FDA approved rika rces are eye, throat and rectal and have been internally validated. Chlamydia Source Cervical [facility] Specimen Anatomical Collection Method Collection Time Receive d Time (Source) Location / / Volume Laterality Cervical swab 04/19/2019 8:24 PM 04/19/19 20 (specimen) EDT 10:19 PM EDT Resulting Agency Comment Spec In Lab Joan Mccarthy MD MICROBIOLOGY - GENERAL ORDER MICHEL Performing Organization Address City/[facility]/[place] [address] documented in this encounter Visit Diagnoses Diagnosis Abnormal vaginal fluids - Primary Other nonspecific abnormal finding in fernando dy substances documented in this encounter Care Teams Centrifuge Separator Operator Relationship Specialty Start Date End Date Genet Holland PA PCP - General Family Medicine 02/06/19 05/15/[address] [place] [id number] documented as of this encounter
--- OUTSIDE RECORDS SUMMARY | 2021-10-20 07:57 | XMS_ITS | Encounter Summary ---
:1985 Author Organization [facility] [place] [address] Care Team Providers Name Role Phone Genet Holland Primary Care Provider Reason for Referral Occupational Therapy (Routine) - Specialty Diagnoses / Procedures Referred By Contact Refer red To Contact Occupational Therapy Diagnoses Paresthesia of both hands Jennifer Wu CNM [facility] D R [address] OBSTETRICS & [place], [place] GYNECOLOGY [address] [place] [address] Referral ID Status Reason Start Date Expiration Date Visits V isits Requested Authorized [id number] Evaluate and 06/27/2019 06/26/2020 12 12 Treat Encounter Details Date Type Department Care Team Description 06/27/2019 Telephone Obstetrics and Gynecology at [facility] Jennifer escobar CNM [facility] Celia gutierrez OBSTETRICS & [place] [address] [place] [address] [phone] (Wo rk) Social History Tobacco Use Types Packs/Day Years Used Date Current Every Day Smoker Cigarettes 0.5 Smokeless Tobacco: Never Used Alcohol Use Standard Drinks/Week Comments No 0 (1 standard drink = 0.6 oz pure alcoho l) Not during Sex Assigned at Date Recorded Female 04/13/2020 8:26 AM EST documented as of this encounter Miscellaneous Notes Telephone Encounter - Jennifer Wu CNM - 06/27/2019 5:09 PM EDT Received message from [facility] Sophia Powell saying that Shirlene was hoping to speak with me. I called Shirlene, who reports the following: Her chief school finance officer told her that she had urine toxicology tested whichwas positive for opioids at her PO visit last Sunday. Shirlene adamantly denies any use. She was seenthe subsequent day at [facility] and tested negative for anything except prescribed buprenorphine (observed). Shirlene is requesting a letter to that effect be faxed to her PO today. This will be faxed by our nursing staff today. She also reports increasing discomfort in bilateral hands and forearms, including paresthesia and numbness. Accepts offer of referral to occupational therapy (sent). Telephone Encounter - Jennifer Wu CNM - 06/27/2019 11:55 AM EDT This morning had paul Curiel Urine results from last Sunday; [phone]; Letter; Occupational therapy For bilateral arm pain, L > R; documented in this encounter Plan of Treatment Scheduled Referrals Name Type Priority Associated Diagnoses Order S chedule Referral to Outpatient Referral Routine Paresthesia of both O rdered: Occupational Therapy hands 020 documented as of this encounter Visit Diagnoses Diagnosis Paresthesia of both hands documented in this encounter Care Teams Technical Director Relationship Specialty Start Date End Date Genet Holland PA PCP - General Family Medicine 02/06/19 05/15/20 [address] [place] [address] documented as of this encounter
--- OUTSIDE RECORDS SUMMARY | 2021-10-20 07:57 | XMS_ITS | Encounter Summary ---
:1985 Author Organization [facility] [place] [address] Care Team Providers Name Role Phone Genet Holland Primary Care Provider Encounter Details Date Type Department Care Team Description 04/30/2019 Telephone Obstetrics and Gynecology at Jennifer burnette CNM [facility] Celia gutierrez OBSTETRICS & [place] [address] [place] [address] [phone] (Wo rk) Social History Tobacco Use Types Packs/Day Years Used Date Current Every Day Smoker Cigarettes 0.5 Smokeless Tobacco: Never Used Alcohol Use Standard Drinks/Week Comments No 0 (1 standard drink = 0.6 oz pure alcoho l) Not during Sex Assigned at Date Recorded Female 04/13/2020 8:26 AM EST documented as of this encounter Miscellaneous Notes Telephone Encounter - Jennifer Wu CNM - 04/30/2019 11:51 AM EDT Shirlene Kovacs is a 33 yo patient currently at 16w4d by first trimester u/s, who calls todayreporting the following symptoms: Has been ill for 3-4 days At first felt like a cold Today is having increased difficulty breathing, cough, and nausea/vomitting. Feels terrible. Breathing in feels tight, like bad asthma, Finding it difficult to catch her breath. Shirlene reports a lowgrade fever, 99.8 now. Has vomitted x3 this morning and also yesterday, not holding much down. Fetus has not been active which is also worrying her. Did not have a flu shot this year. PMHx is significant for Hodgkins disease, in remission, asthma, OUD, and tobacco use. She has attempted to reach her primary care practice for the past three days but has not received a call back. I discussed Shirlene's symptoms with Dr. Doyle and subsequently with the [facility] team who recommends that she be evaluated in the Emergency Department. Call placed to ED to advise them, and to Shirlene who will get a ride there as soon as possible. documented in this encounter Plan of Treatment Not on filedocumented as of this encounter Visit Diagnoses Not on filedocumented in this encounter Care Teams Block Machine Operator Relationship Specialty Start Date End Date Genet Holland PA PCP - General Family Medicine 02/06/19 05/15/20 [address] [place] [address] documented as of this encounter
--- OUTSIDE RECORDS SUMMARY | 2021-10-20 07:57 | XMS_ITS | Encounter Summary ---
:1985 Author Organization [facility] [place] [address] Care Team Providers Name Role Phone Genet Holland Primary Care Provider Encounter Details Date Type Department Care Team Description 05/06/2019 TH Visit Cardiology at [facility] Khai Valentin MD Palpitations (TeleHealth) [facility] [place] [address] CARDIOLOGY DEPT [phone] [place] [address] (Wo rk) Social History Tobacco Use Types Packs/Day Years Used Date Current Every Day Smoker Cigarettes 0.5 Smokeless Tobacco: Never Used Alcohol Use Standard Drinks/Week Comments No 0 (1 standard drink = 0.6 oz pure alcoho l) Not during Sex Assigned at Date Recorded Female 04/13/2020 8:26 AM EST documented as of this encounter Progress Notes Khai Valentin MD - 05/06/2019 1:40 PM EDT HPI: Shirlene Kovacs is a 33 y.o. year old who is 14 weeks . She has been noticing more palpitations and these are associated with shortness of breath. Made better with lying down. She has a historyof hodgkin's disease and endocarditis (2011). Not using any drugs now. She has not had a echo on herself. Echo in 2018 was normal. She has been on isolation after a viral respiratory illness. Palpitations are much better on the labetolol. She noted a few episodes of chest pain. She notes no new swelling in the legs. Her breathing is much better. She has not fainted. There is no PND. PMHX Patient Active Problem List Diagnosis Code [...] ??? History of recurrent shingles Z86.19 ??? Rubella non-immune status, antepartum O99.89, Z28.3 ??? Leukocytosis D72.829 ??? Abscess of dorsum of left hand L02.512 ??? Nausea and vomiting during O21.9 ??? High risk , antepartum O09.90 ??? Vaginal discharge in in first trimester O26.891, N89.8 MEDS: Current Outpatient Medications on File Prior to Visit Medication Sig Dispense Refill ??? miconazole (MICOTIN) 2 % Cream Place 1 applicator vaginally nightly for 7 days. 45 g 0 ??? buprenorphine-naloxone (SUBOXONE) 8-[address] 16 mg of opiate under the tongue daily. 28 each 0 ??? FLUoxetine (PROzac) 20 mg Tablet Take 2 tablets by mouth daily. 60 tablet 3 ??? polyethylene glycol (Miralax) 17 gram/dose Powder Take 17 g by mouth 2 times daily. 510 g 5 ??? docusate sodium (Colace) 100 mg Capsule Take 1 capsule by mouth 2 times daily. 60 capsule 5 ??? Plus, calcium carb, 27 mg iron- 1 mg Tablet Take 1 tablet by mouth daily. 90 tablet 3 ??? labetaloL (Normodyne) 100 mg Tablet Take 1 tablet by mouth 2 times daily. 60 tablet 11 ??? hydrocortisone (Anusol-HC) [address] 1 suppository rectally 2 times daily. 12 suppository 3 ??? nicotine (NICODERM CQ) 7 mg/24 hr Patch 24 hr Change 1 patch on the skin daily. 28 patch 0 ??? nicotine polacrilex (NICORETTE) 2 mg Gum Take 1 each by mouth as needed for Smoking cessation. 81 each 0 ??? promethazine (PHENERGAN) 25 mg Tablet Take 1 tablet by mouth every 6 hours as needed for Nausea.60 tablet 1 ??? levothyroxine (SYNTHROID) 175 mcg Tablet Take 75 mcg by mouth. ??? albuterol (PROVENTIL HFA;VENTOLIN HFA;PROAIR) 90 mcg/actuation HFA Aerosol Inhaler Inhale 2 puffs into the lungs every 4 hours as needed for Wheezing. Use with spacer 1 Inhaler 1 ??? lansoprazole (PREVACID) 15 mg capsule Take 15 mg by mouth as needed. No current facility-administered medications on file prior [...] file Gets together: Not on file Attends yazdanism service: Not on file Active member of [...] has no symptoms of heart failure. 2. Schedule echocardiogram when possible. Patient is on isolation with covid, , and not experiencing any heart failure symptoms (no swelling, syncope or shortness of breath). Will continue to monitor. documented in this encounter Plan of Treatment Not on filedocumented as of this encounter Visit Diagnoses Diagnosis Palpitations documented in this encounter Care Teams Benzene Worker Relationship Specialty Start Date End Date Genet Holland PA PCP - General Family Medicine 02/06/19 05/15/[address] [place] [address] documented as of this encounter
--- OUTSIDE RECORDS SUMMARY | 2021-10-20 07:57 | XMS_ITS | Encounter Summary ---
:1985 Author Organization [facility] [place] [address] Care Team Providers Name Role Phone Genet Holland Primary Care Provider Reason for Visit Reason Comments Follow-up Encounter Details Date Type Department Care Team Description 04/09/2019 Routine Obstetrics and German Fernández MD GA: 13w3d [place] [address] [place] [phone] Social History Tobacco Use Types Packs/Day Years [...] Sign Reading Time Taken Comments Blood Pressure 104/64 04/09/2019 1:46 PM EST Pulse - - Temperature - - Respiratory Rate - - Oxygen Saturation - - Inhaled Oxygen Concentration - - Weight 80.7 kg (177 lb 14.4 oz) 04/09/2019 1:46 PM EST Height - - Body Mass Index 26.26 02/07/2019 11:00 AM EST documented in this encounter Progress Notes German Fernández MD - 04/09/2019 2:15 PM EST 33 yo at 13w3d with hx/o Hodgkins and ROLAND. Pt feels generally ok, but reports episodes of fast heart rate/palpitations with no syncope or near syncope. Scheduled for cardiology today. 1) ROLAND: Doing well on Suboxone - 12-16mg/day. Involved in appropriate support groups. Expressed guilt that sAB in 2017 was while she was using. We discussed that most sABs are due to karyotypic anomalies and may have had nothing to do with substance use. 2) Hx/o of Hodgkins s/p chemo (including doxorubicin) and irradiation (about 26Gray). Echo in 2014 was reassuring with EF of 72%. Scheduled to see cardiology today. 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 On synthroid. TSH today. A/P: Healthy appearing at 13+ weeks in stable recovery accessing appropriate supports with hx/o chemo and irradiation that can be associated with cardiac dysfunction. I'm happy that she is seeing cards today. We'll see what that consultation yields, but she probably needs a holter or ziopatch as well as an echo. If these tests are reassuring, then she should be ableto continue routine obstetric care. Detailed morphology scan already scheduled with [facility] visit in May. MD Dexter Addendum: Seen by propeller layout worker today who is planning echo and holter monitor. TSH in appropriate range. MD Dexter documented in this encounter Plan of Treatment Not on filedocumented as of this encounter Visit Diagnoses Diagnosis High risk , antepartum - Primar y Hodgkin's disease in remission Hodgkin's disease, unspecified documented in this encounter Care Teams Routing Machine Operator Relationship Specialty Start Date End Date Genet Holland PA PCP - General Family Medicine 02/06/19 05/15/[address] [place], [place] [id number] documented as of this encounter
--- OUTSIDE RECORDS SUMMARY | 2021-10-20 07:57 | XMS_ITS | Encounter Summary ---
:1985 Author Organization [facility] [place] [address] Care Team Providers Name Role Phone Genet Holland Primary Care Provider Encounter Details Date Type Department Care Team Description 04/02/2019 Orders Only Cardiology at [facility] Khai Valentin, Palpitations ([facility] D[facility]) [place] [address] CARDIOLOGY DEPT [phone] [place] [address] Social History Tobacco Use Types Packs/Day Years Used Date Current Every Day Smoker Cigarettes 0.5 Smokeless Tobacco: Never Used Alcohol Use Standard Drinks/Week Comments No 0 (1 standard drink = 0.6 oz pure alcoho l) Not during Sex Assigned at Date Recorded Female 04/13/2020 8:26 AM EST documented as of this encounter Plan of Treatment Not on filedocumented as of this encounter Results EKG 12 Lead (04/09/2019 2:56 PM EST) Component Value Ref Range Test Analysis Performed Pathologis t Method Time At Signature Ventricular rate 63 BPM MUSE SYSTEM Atrial Rate 63 BPM MUSE SYSTEM P-R Interval 148 ms MUSE SYSTEM QRS Duration 78 ms MUSE SYSTEM Q-T Interval 414 ms MUSE SYSTEM QTC Calculated 423 ms MUSE SYSTEM (Bezet) Calculated P [place] 36 degrees MUSE SYSTEM Calculated R [place] 72 degrees MUSE SYSTEM Calculated T [place] 50 degrees MUSE SYSTEM INTERPRETATION Normal sinus rhythm MUSE SYSTEM Possible Left atrial enlargement Borderline ECG When compared with ECG of 16-JUL-2018 23:06, Criteria for Septal infarct are no longer Present Confirmed by MD KACY, DIANA ([id number]) on 04/09/2019 4:58:23 PM Specimen Anatomical Collection Method Collection Time Receive d Time (Source) Location / / Volume Laterality 04/09/2019 2:56 PM 0 4:58 EST PM EST Khai Valentin MD ECG ORDERABLES Performing Organization Address City/State/ZIP Code Phon e Number MUSE SYSTEM documented in this encounter Visit Diagnoses Diagnosis Palpitations - Primary documented in this encounter Care Teams Template Layout Worker Relationship Specialty Start Date End Date Genet Holland PA PCP - General Family Medicine 02/06/19 05/15/20 [address] [place] [address] documented as of this encounter
--- OUTSIDE RECORDS SUMMARY | 2021-10-20 07:57 | XMS_ITS | Encounter Summary ---
:1985 Author Organization [facility] [place] [address] Care Team Providers Name Role Phone Genet Holland Primary Care Provider Encounter Details Date Type Department Care Team Description 07/17/2019 Hospital Encounter Radiology at [facility] Jennifer Fraga Significant [facility] SAMUEL Dumas discrepancy between [facility] uterine size and [facility] clinical [place], [address] OBSTETRICS & antepartum [phone] [place] [address] Social History Tobacco Use Types Packs/Day Years [...] Procedure Name Priority Date/Time Associated Diagnosis Comme [facility] US OB FOLLOW UP Routine 07/17/2019 3:32 PM Significant Result s for this EDT discrepancy between procedur e are in uterine size and the results clinical dates, section. antepartum documented in this encounter Results US OB Follow Up (07/17/2019 3:32 PM EDT) Anatomical Region Laterality Modality Pelvis, Abdomen Ultrasound Specimen (Source) Anatomical Collection Method Collection Time Re ceived Time Location / / Volume Laterality 07/17/2019 3:17 PM EDT Impressions 07/17/2019 3:32 PM EDT 3rd Trimester Summary Single intrauterine with a ge stational age of 27w 4d based on U/S C R L ??(03/05/19) Composite age based on the current ultr asound alone is 28w 2d. Estimated weight corresponds to t he 83th percentile for 27w 4d. Current growth parameters are consisten t with prior dating indicating normal growth. Amniotic fluid volume is Normal Anatomical survey is limited due to the late gestational age. ? Katerina Doyle, Staff Stephen hart Electronically Signed Final Report ?? 03:31 pm Narrative 07/17/2019 3:32 PM EDT OBSTETRICS REPORT ?(Signed Final 07/17/2019 03:31 pm) PATIENT INFO: ID #: ? [id number] ?: ??[birth year] (34 yrs)(F) Name: ? SHIRLENE PARKS ?Visit Date: 07/17/2019 03:17 pm PERFORMED BY: Performed By: ? Rose Peña RDMS Attending: ?Vivek NAPOLES, Britni Rooney Referred By: ?JENNIFER Dumas FRAGA Location: ? [place] SERVICE(S) PROVIDED: ??UOBFOL - Efw - Growth ??- [place] - [id number] INDICATIONS: ??27 weeks gestation of ?Z3A.27 ??Size> dates VITAL SIGNS: Weight (lb): 193.0 Height: ?5'9 ?BMI: ?28.5 EVALUATION: Num Of Fetuses: ?1 Heart Rate(bpm): ?? 153 Cardiac Activity: ?Observed, normal rhythm Presentation: ?Cephalic Placenta: ?Railroad Watchman ior P. Cord Insertion: ? Not able to evaluate Amniotic Fluid CHRISTIE FV: ?Normal CHRISTIE Sum(cm) ? Lar gest Pocket(cm) 18.71 ? 6.44 RUQ(cm) ? RLQ(cm) ? LUQ(c m) ?LLQ(cm) 4.5 ? 3.7 ? 4 .1 ?6.4 --------- BIOMETRY: --------- BPD: ?71.1 ??mm ? G.Age: ?? 28w 4d ?71 ??% OFD: ?91.1 ??mm HC: ?260.7 ??mm ? G.Age: ?? 28w 3d ?46 ??% AC: ?240.2 ??mm ? G.Age: ?? 28w 2d ?64 ??% FL: ? 51.9 ??mm ? G.Age: ?? 27w 5d ?39 ??% HUM: ?44.2 ??mm ? G.Age: ?? 26w 2d ?17 ??% CER: ?30.9 ??mm ? G.Age: ?? 27w 0d ?41 ??% LV: ?6.5 ??mm CM: ?6.7 ??mm CI: ?78.0 ??% ? 70 - 86 FL/HC: ? 19.9 ??% ? 18.8 - 20.6 HC/AC: ? 1.09 ?1.05 - 1.21 FL/BPD: ?73.0 ??% ? 71 - 87 FL/AC: ? 21.6 ??% ? 20 - 24 Est. FW: ?1177 ?? gm ?? 2 lb 10 oz ? 83 ??% OB HISTORY: Blood Type: ?A+ : ?4 ? Term: ?? 1 ? SAB: ?? 2 Living: ? 1 GESTATIONAL AGE: U/S Today: ? 28w 2d ?ASHLIE: ?? 10/07/19 Best: ?27w 4d ?? Det. By: ??U/S C R [...] visualized Right Ovary Not visualized Procedure Note Katerina Doyle MD - 07/17/2019Form atting of this note might be different from the original. OBSTETRICS REPORT (Signed Final 020 03:31 pm) PATIENT INFO: ID #: [id number] : [birth year] (34 y rs)(F) Name: SHIRLENE PARKS Visit Date: 07/16 03:17 pm PERFORMED BY: Performed By: Rose Peña RDMS Attending: Katerina Doyle MD Referred By: JENNIFER FRAGA Location: [place] SERVICE(S) PROVIDED: UOBFOL - Efw - Growth - [place] - [facility] [id number] INDICATIONS: 27 weeks gestation of Z3A.27 Size> dates VITAL SIGNS: Weight (lb): 193.0 Height: 5'9 BMI: 28.5 EVALUATION: Num Of Fetuses: 1 Heart Rate(bpm): 153 Cardiac Activity: Observed, normal rhyt hm Presentation: Cephalic Placenta: Posterior P. Cord Insertion: Not able to evaluate Amniotic Fluid CHRISTIE FV: Normal CHRISTIE Sum(cm) Largest Pocket(cm) 18.71 6.44 RUQ(cm) RLQ(cm) LUQ(cm) LLQ(cm) 4.5 3.7 4.1 6.4 --------- BIOMETRY: --------- BPD: 71.1 mm G.Age: 28w 4d 71 % OFD: 91.1 mm HC: 260.7 mm G.Age: 28w 3d 46 % AC: 240.2 mm G.Age: 28w 2d 64 % FL: 51.9 mm G.Age: 27w 5d 39 % HUM: 44.2 mm G.Age: 26w 2d 17 % CER: 30.9 mm G.Age: 27w 0d 41 % LV: 6.5 mm CM: 6.7 mm CI: 78.0 % 70 - 86 FL/HC: 19.9 % 18.8 - 20.6 HC/AC: 1.09 1.05 - 1.21 FL/BPD: 73.0 % 71 - 87 FL/AC: 21.6 % 20 - 24 Est. FW: 1177 gm 2 lb 10 oz 83 % OB HISTORY: Blood Type: A+ : 4 Term: 1 SAB: 2 Livin GESTATIONAL AGE: U/S Today: 28w 2d ASHLIE: 10/07/19 Best: 27w 4d Det. By: U/S C R L [...] intrauterine with a ge stational age of 27w 4d based on U/S C R L (03/05/19) Composite age based on the current ultr asound alone is 28w 2d. Estimated weight corresponds to t he 83th percentile for 27w 4d. Current growth parameters are consisten t with prior dating indicating normal growth. Amniotic fluid volume is Normal Anatomical survey is limited due to the late gestational age. Katerina Doyle, Staff Physician Electronically Signed Final Report 07/16 03:31 pm Jennifer Fraga CNM IMG US OB ORDERABLES documented in this encounter Visit Diagnoses Diagnosis Significant discrepancy between uterine size and clinical dates, antepartum Uterine size date discrepancy, antepartu m condition or complication documented in this encounter Care Teams Circus Agent Relationship Specialty Start Date End Date Genet Holland PA PCP - General Family Medicine 02/06/19 05/15/[address] [place] [address] documented as of this encounter
--- OUTSIDE RECORDS SUMMARY | 2021-10-20 07:57 | XMS_ITS | Encounter Summary ---
:1985 Author Organization [facility] [place] [address] Care Team Providers Name Role Phone Genet Holland Primary Care Provider Encounter Details Date Type Department Care Team Description 02/12/2019 Notes Only Obstetrics and Gynecology Katerina Cavanaugh MD at [facility] Celia gutierrez OBSTETRICS [place] [address] [place] [address] [phone] (Wo rk) Social History Tobacco Use Types Packs/Day Years Used Date Current Every Day Smoker Cigarettes 0.5 Smokeless Tobacco: Never Used Alcohol Use Standard Drinks/Week Comments No 0 (1 standard drink = 0.6 oz pure alcoho l) Not during Sex Assigned at Date Recorded Female 04/13/2020 8:26 AM EST documented as of this encounter Progress Notes Katerina Doyle MD - 02/12/2019 9:29 AM EST Called patient to give results of HCG from 02/08. No f/u HCG in computer. No answer and no voice mail set up. Needs f/u US to confirm IUP and viability. Order in computer. documented in this encounter Plan of Treatment Not on filedocumented as of this encounter Visit Diagnoses Not on filedocumented in this encounter Care Teams Service Delivery Director Relationship Specialty Start Date End Date Genet Holland PA PCP - General Family Medicine 02/06/19 05/15/20 [address] [place] [address] documented as of this encounter
--- OUTSIDE RECORDS SUMMARY | 2021-10-20 07:57 | XMS_ITS | Encounter Summary ---
:1985 Author Organization [facility] [place] [address] Care Team Providers Name Role Phone Genet Holland Primary Care Provider Reason for Visit Reason Comments Cough Encounter Details Date Type Department Care Team Description 04/30/2019 Emergency Emergency Department Héctor Grider per respiratory tract infection, unspecified type (Primary Dx); Airam Johnson MD High risk , antepartum; [facility] [place] [address] [place] [id number] [phone] (Wo rk) Social History Tobacco Use Types [...] Sign Reading Time Taken Comments Blood Pressure 119/94 04/30/2019 7:42 PM EDT Pulse 85 04/30/2019 3:18 PM EDT Temperature 36.7 ??C (98 ??F) 04/30/2019 7:42 PM EDT Respiratory Rate 17 04/30/2019 7:42 PM EDT Oxygen Saturation 97% 04/30/2019 7:42 PM EDT Inhaled Oxygen Concentration - - Weight 80.3 kg (177 lb) 04/30/2019 3:18 PM EDT Height 175.3 cm (5' 9) 04/30/2019 3:18 PM EDT Body Mass Index 26.14 04/30/2019 3:18 PM EDT documented in this encounter Discharge Instructions Discharge InstructionsDimas Wesley MD - 04/30/2019 7:28 PM EDT You are suspected to have a viral syndrome, which may include symptoms such as: fever, chills, muscle aches, runny nose, cough, sneezing, sore throat, vomiting or diarrhea. One of the potential virusesyou may have is the virus that causes COVID-19, also known as the novel coronavirus. You may be justas likely to have a different viral infection such as the common cold. Resting, staying hydrated, and sleeping are typically helpful in your recovery. You have been assessed to currently be well enough togo home and treat your symptoms with fluids andmedicines for fever, cough, and other cold symptoms. You are requested to remain home on quarantine. If you were tested for COVID-19, you will be called with your results. This may take 1-2 days. You must remain on home quarantine while waiting for these results. If you have tested positive for COVID-19, you will be given further instructions about duration of home quarantine and when you can return to normal activities. If you were not tested for COVID-19 (or have a negative test), you can leave home after ALL of thesethree things have happened: (1) you have had no fever for at least 72 hours (that is three full days of no fever without the useof medicine that reduces fevers) AND (2) other symptoms have improved (for example, when your cough or shortness of breath have improved) AND (3) at least 7 days have passed since your symptoms first appeared. All asymptomatic close contacts of a person with COVID-19 or persons who are being presumptively managed as COVID-19 (without testing) should stay home (self quarantine) for 14 days from the last day of exposure. Please follow the precautions below: WHO (people and pets to take into consideration): The Department of Health has advised that you MUST self-isolate until your results are known to be negative You MUST restrict activities outside your home, except for getting medical care. Do not go to work, school or public areas. Avoid using public transportation, ride-sharing or taxis. As much as possible, you should stay in a specific room away from other people in your home. You should also use a separate bathroom, if available. As advised by the Centers for Disease Control and Prevention (CDC), you must stay in your home and minimize contact with others to avoid spreading this infection. WHAT (objects/surfaces to take into consideration): Avoid sharing personal household items. You should not share dishes, drinking glasses, cups, eating utensils, towels, or bedding with other people or pets in your home. After using these items, they should be washed thoroughly with soap and water. Clean all high-touch surfaces every day. High-touch surfaces include counters, tabletops, doorknobs, bathroom fixtures, toilets, phones, keyboards, tablets, and bedside tables. Use household cleaning spray or wipe to clean high-touch surfaces; follow the label instructions. HOW (guidelines for hand washing and germ management): Clean your hands often. Wash your hands with soap and water for at least 20 seconds. If soap and water are not available, clean your hands with an alcohol- based hand diesel service apprentice that contains at least 60% alcohol, covering all surfaces of your hands and rubbing them together until they feel dry. Soap and water should be used preferentially if hands are visibly dirty. Avoid touching your eyes, nose, and mouth with unwashed hands. Cover your mouth and nose with a tissue when you cough or sneeze. Throw used tissue in a lined trash can. Immediately wash your hands with soap and water or hand diesel service apprentice. WHEN (guidelines for seeking medical care): Call your doctor if you start to feel worse (increased congestion, coughing or fevers). Seek emergency medical treatment if you have difficulty breathing. Call ahead if possible and advise health care workers of possible exposure to COVID-19. Ask for a facemask as you enter the facility. These steps will help the healthcare provider's office to keep other people in the office or waitingroom from getting infected or exposed. If possible, put on a facemask before emergency medical services arrive. You MUST review the instructions provided on the website below by the [facility] of Health and Human services regarding self quarantine. If you reside in a [facility] other than [place],please review your state's specific self quarantine instructions. https://www.dhhs.[place].gov/dphs/cdcs/documents/vajg-glfrcebaop-uknlv.pdf AttachmentsThe following attachments cannot be sent through Care Everywhere. : High-Risk (Niuean)documented in this encounter Medications at Time of Discharge Medication Sig Dispensed Refills Start Date End Date buprenorphine-naloxone Place 16 mg of 28 each 0 0 05/08/2019 (SUBOXONE) 8-2 mg Film opiate under the [...] 1 tablet by 90 tablet 3 020 06/18/2019 carb, 27 mg iron- 1 [...] with spacer documented as of this encounter ED Notes Bertha Payne RN - 04/30/2019 6:28 PM EDT Pt able to walk around room with O2 sat remaining at 100% Dimas Wesley MD - 04/30/2019 4:16 PM EDT Chief Complaint Patient presents with ??? Cough HPI 33 y.o female 16wd3 with PMH of Hodgkin lymphoma in remission, hepatitis C, ROLAND on suboxone, intermittent asthma, active smoker, hypothyroidism who is here after 4 day of congestion, headache, dry cough, shortness of breath, wheezing, feeling run down, and fever between 99.8F - 101F. She also has had 3 episodes of puking today. +nausea but able to keep herself hydrated. Pinson her baby this AM but thinks that he/she is less active today. he denied any complications with her previous or current . Patient has been staying at home, denied any sick contact. She lived with a friend's family. She didnot have flu shot this year. She finished a course of Keflex for UTI today. She denied any chest pain/palpitation/leg swelling. She denied any vaginal bleeding, discharge. Allergies Allergen Reactions ??? Chantix [Varenicline] Seizure ??? Duloxetine Hcl ??? Laxative X-Lax ??? Phenolphthalein Other reaction(s): SEIZURES ??? Varenicline Tartrate Other reaction(s): seizure Nausea/Vomiting Review of Systems Constitutional: Positive for diaphoresis and fatigue. HENT: Positive for congestion and sore throat. Negative for ear discharge. Eyes: Negative for discharge and visual disturbance. Cardiovascular: Negative for leg swelling. Gastrointestinal: Negative for diarrhea. Genitourinary: Negative for difficulty urinating, dysuria and urgency. Musculoskeletal: Positive for arthralgias and myalgias. Skin: Negative for rash. Neurological: Negative. Hematological: Negative. Psychiatric/Behavioral: Negative. Labs Reviewed. Significant for - TSH 1.64. Negative Chlamydia, Syphilis, GC screen (04/19/19) Physical Exam Constitutional: General: She is not in acute distress. Appearance: She is ill-appearing. She is not diaphoretic. HENT: Head: Normocephalic and atraumatic. Mouth/Throat: Mouth: Mucous membranes are moist. Pharynx: Oropharynx is clear. No oropharyngeal exudate or posterior oropharyngeal erythema. Eyes: Extraocular Movements: Extraocular movements intact. Conjunctiva/sclera: Conjunctivae normal. Pupils: Pupils are equal, round, and reactive to light. Neck: Musculoskeletal: Normal range of motion and neck supple. No neck rigidity. Cardiovascular: Rate and Rhythm: Normal rate and regular rhythm. Heart sounds: No murmur. No friction rub. No gallop. Pulmonary: Effort: No respiratory distress. Breath sounds: Wheezing present. No rales. Abdominal: General: Bowel sounds are normal. Tenderness: There is no abdominal tenderness. There is no guarding or rebound. Genitourinary: Comments: Deferred Musculoskeletal: Right lower leg: No edema. Left lower leg: No edema. Lymphadenopathy: Cervical: No cervical adenopathy. Skin: General: Skin is warm. Capillary Refill: Capillary refill takes less than 2 seconds. Neurological: General: No focal deficit present. Mental Status: She is alert and oriented to person, place, and time. Procedures MDM 33 y.o female at 16w3d with PMH listed above, who came in for URI symptoms of 4 dayduration with new vomiting today likely representing upper viral infection, worsened by likely asthma attack in the setting of first trimester . Patient does not meet criteria for COVID screening (likely will not be admitted, and not associated with healthcare providers). Workups including cbc, bmp, ekg were unremarkable. Patient received 1L LRbolus and albuterol inhaler with good effect. She was able to ambulate without significant worseningof her dyspnea or desating on monitor. Her bedside ultrasound was reassuring. She was discharged to home with instruction to self-quarantine for possible COVID-19 infection per protocol. Precautions and returning instructions were provided to the patient. Please call patient to give result of her flu swab once it is available. ED Course: - cbc no leukocytosis, anemia stable. - BMP mild hypokalemia with level 3.3 - U/A trace leukocytes not s/o bacteruria. - Rapid flu/rsv swab pending. - 1L LR - Albuterol inhaler given with good effect. - POC abdomen ultrasound showing active movement. ED Course as of Apr 29 1617SunApr 30, 2019 161 EKG 12 Lead Dimas Wesley MD Resident 04/30/19 1654 Dimas Wesley MD Resident 04/30/19 1910 Associated attestation - Héctor Grider MD - 05/02/2019 8:17 PM EDT ED ATTENDING ATTESTATION NOTE The patient was seen in conjunction with the resident physician. I have independently performed the jack portions of the history and physical exam. I have personally reviewed nursing notes, vital signs,and diagnostic studies including labs, imaging studies and EKGs. I have discussed the details of the case with the resident and agree with the assessment and plan as described in the resident's note. Briefly, 33 y.o. female who presents with viral syndrome, fatigue, low grade fever, nausea, and vomiting. On exam she has clear lungs, no respiratroy distress, abdomen is soft, and warm extremities. Her labs are reassuring. She is not eligible for COVID19 testing based on our current criteria. I performed an OB POCUS that showed movement and FHR 147. Bedside Ultrasound During ED Visit: Point of care emergency department limited transabdominal pelvic ultrasound: Indication: viral illness Procedure in Detail: Using the Transducers: Curvilinear transducer with a transabdominal window the uterus was interrogated in the long and short axes and demostrated movement and IUP. Using m-mode, the FHR is calculated to be 147 bpm. I showed Shirlene her baby's movement. Impression: Limited point of care pelvic ultrasound with evidence of intrauterine . This study was performed by an ultrasound credentialed emergency physician. These images were archived digitally and I independently interpreted the images at the bedside and agree with the documented results. Sheba Lux PA - 04/30/2019 3:15 PM EDT PROVIDER TRIAGE NOTE Patient: Shirlene Kovacs Age (): 33 y.o. (1985) CC: cough, fever, SOB HPI: Shirlene Kovacs is a 33 y.o. female with PMH significant for asthma, Bipolar disorder, H/O hep C, H/O drug abuse, and 16w4d gestation who presented to the ED for cough, wheezing, N/V, and ?fever. Denies frances SOB or chest pain. Uses albuterol inhaler <1x weekly usually and is now using every several hours. PE: BP 108/50 (Patient Position: Sitting) Pulse 85 Temp 36.9 ??C (98.4 ??F) (Oral) Resp 22 Ht 175.3 cm (5' 9) Wt 80.3 kg (177 lb) LMP 11/10/2018 (LMP Unknown) SpO2 100% BMI 26.14 kg/m?? Patient well-appearing, no acute distress. PLAN: Airborne and contact precautions. Repeat examination, obtain further diagnostics as indicated, and ongoing evaluation/management per ED provider. Sheba Lux PA 04/30/19 1525 documented in this encounter Plan of Treatment Not on filedocumented as of this encounter Procedures Procedure Name Priority Date/Time Associated Comments Diagnosis URINALYSIS STAT 04/30/2019 5:27 PM Results f or this MICROSCOPIC EXAM EDT procedure a re in the results section. URINALYSIS WITH STAT 04/30/2019 5:27 PM Result s for this REFLEX CULTURE EDT procedure are in the results section. HC INFLUENZA A/B & STAT 04/30/2019 5:26 PM Res ults for this RSV BY PCR EDT procedure are i n the results section. HEMOGRAM STAT 04/30/2019 5:25 PM Results f or this EDT procedure are i n the results section. DIFFERENTIAL, STAT 04/30/2019 5:25 PM Results for this AUTOMATED EDT procedure are i n the results section. GOLD TUBE HOLD STAT 04/30/2019 5:25 PM Results for this EDT procedure are i n the results section. GOLD TUBE HOLD STAT 04/30/2019 5:25 PM Results for this EDT procedure are i n the results section. GOLD TUBE HOLD STAT 04/30/2019 5:25 PM Results for this EDT procedure are i n the results section. GOLD TUBE HOLD STAT 04/30/2019 5:25 PM Results for this EDT procedure are i n the results section. BLUE TUBE HOLD STAT 04/30/2019 5:25 PM Results for this EDT procedure are i n the results section. BLUE TUBE HOLD STAT 04/30/2019 5:25 PM Results for this EDT procedure are i n the results section. HC CBC,PLT & AUTO STAT 04/30/2019 5:25 PM DIFF EDT BASIC METABOLIC PANEL STAT 04/30/2019 5:25 PM Results for this (NON-FASTING) EDT procedure are in the results section. EKG 12-LEAD STAT 04/30/2019 3:46 PM Results f or this EDT procedure are i n the results section. documented in this encounter Results (ABNORMAL) Urinalysis Microscopic Exam (04/30/2019 5:27 PM EDT) P athologist Signature RBC UA 0 0 - 4 /HPF [facility] WBC UA 4 0 - 5 /HPF [facility] Squam Epith UA 5 (H) <=4 /HPF [facility] Hyaline Cast 1 0 - 2 /LPF [facility] Specimen (Source) Anatomical Collection Method Collection Time Re ceived Time Location / / Volume Laterality Urine specimen 04/30/2019 5:27 04/30/2019 5:36 obtained by clean PM EDT PM EDT catch procedure (specimen) Resulting Agency Comment Spec In Lab Héctor Grider MD URINE ORDERABLES Performing Organization Address City/State/[place] [address] (ABNORMAL) Urinalysis with reflex Culture (04/30/2019 5:27 PM EDT) Patholo gist Method Time Signature Glucose UA Negative Negative [facility] Protein UA Negative Negative [facility] mg/dL [facility] Bilirubin UA Negative Negative [facility] mg/dL [facility] Comment: Clinical correlation required for positi ve Urine Bilirubin results as false positive may occur with some drugs and d rug related products. If a false positive is suspected a serum total bili lópez should be considered if clinically indicated. Urobilinogen UA Normal Normal mg/dL [facility] pH UA >=9.0 (A) 5.0 - 8.0 [facility] Blood UA Negative Negative mg/dL [facility] Ketones UA Negative Negative mg/dL [facility] Nitrite UA Negative Negative [facility] Leukocytes UA Trace (A) Negative [facility] Appearance UA Turbid Clear [facility] Spec Thomas UA 1.020 1.002 - 1.030 [facility] Color UA Yellow Yellow [facility] Culture Reflexed No [facility] Specimen (Source) Anatomical Collection Method Collection Time Re ceived Time Location / / Volume Laterality Urine specimen 04/30/2019 5:27 04/30/2019 5:36 obtained by clean PM EDT PM EDT catch procedure (specimen) Resulting Agency Comment Spec In Lab Héctor Grider MD URINE ORDERABLES Performing Organization Address City/State/ZIP Code Phon e Number [address] Rapid Influenza A/B and RSV PCR ([facility]/CGP/APD) (04/30/2019 5:26 PM EDT) [facility] gist Method Time Signature Influenza A Not Detected Not Detected [facility] Influenza B Not Detected Not Detected [facility] RSV PCR Not Detected Not Detected [facility] Resp PCR ANSWERING SERVICE AGENT Swab [facility] Specimen (Source) Anatomical Collection Method Collection Time Re ceived Time Location / / Volume Laterality Nasopharyngeal swab 04/30/2019 5:26 04/29 (specimen) PM EDT 5:47 PM EDT Resulting Agency Comment Spec In Lab Héctor Grider MD MICROBIOLOGY - GENERAL ORDER MICHEL Performing Organization Address City/State/ZIP Code Phon e Number [address] Blue Tube HOLD (04/30/2019 5:25 PM EDT) P athologist Signature Blue Hold Sample in [facility]OR[facility]ORY Specimen Anatomical Collection Method Collection Time Receive d Time (Source) Location / / Volume Laterality Blood specimen Venous Draw / 04/30/2019 5:25 PM 2019 5:54 (specimen) Unknown EDT PM EDT Sheba VANCE HEMATOLOGY ORDERABLES Performing Organization Address City/[facility]/[place] [address] Gold Tube HOLD (04/30/2019 5:25 PM EDT) P athologist Signature Gold Hold Sample in [facility] LABORATORY Specimen Anatomical Collection Method Collection Time Receive d Time (Source) Location / / Volume Laterality Blood specimen Venous Draw / 04/30/2019 5:25 PM 2019 6:51 (specimen) Unknown EDT PM EDT Sheba VANCE CHEMISTRY ORDERABLES Performing Organization Address City/[facility]/[place] [address] Gold Tube HOLD (04/30/2019 5:25 PM EDT) P athologist Signature Gold Hold Sample in [facility] LABORATORY Specimen Anatomical Collection Method Collection Time Receive d Time (Source) Location / / Volume Laterality Blood specimen Venous Draw / 04/30/2019 5:25 PM 2019 5:56 (specimen) Unknown EDT PM EDT Héctor Lundberg DDS CHEMISTRY ORDERABLES Performing Organization Address City/[facility]/[place] [address] Gold Tube HOLD (04/30/2019 5:25 PM EDT) P athologist Signature Gold Hold Sample in [facility]ORATORY Specimen Anatomical Collection Method Collection Time Receive d Time (Source) Location / / Volume Laterality Blood specimen Venous Draw / 04/30/2019 5:25 PM 2019 5:56 (specimen) Unknown EDT PM EDT Dimas Wesley MD CHEMISTRY ORDERABLES Performing Organization Address City/[facility]/[place] [address] Gold Tube HOLD (04/30/2019 5:25 PM EDT) P athologist Signature Gold Hold Sample in [facility] LABORATORY Specimen Anatomical Collection Method Collection Time Receive d Time (Source) Location / / Volume Laterality Blood specimen Venous Draw / 04/30/2019 5:25 PM 2019 5:51 (specimen) Unknown EDT PM EDT Dimas Wesley MD CHEMISTRY ORDERABLES Performing Organization Address City/[facility]/ZIP Code Phon e Number [address] Blue Tube HOLD (04/30/2019 5:25 PM EDT) P athologist Signature Blue Hold Sample in [facility] LABORATORY Specimen Anatomical Collection Method Collection Time Receive d Time (Source) Location / / Volume Laterality Blood specimen Venous Draw / 04/30/2019 5:25 PM 2019 5:54 (specimen) Unknown EDT PM EDT Dimas Wesley MD HEMATOLOGY ORDERABLES Performing Organization Address City/[facility]/ZIP Code Phon e Number [address] (ABNORMAL) Differential, Automated (04/30/2019 5:25 PM EDT) Patholo gist Method Time Signature Neutrophils % 56.2 % [facility] Neutr Abs (ANC) 5.20 1.70 - [facility] 6.10 [facility] x10(3)/[facility] LAB[facility]ORY Lymphocytes % 30.9 % [facility] Lymphocytes Abs 2.9 0.9 - 3.2 [facility] x10(3)/[facility] LABORATORY Monocytes % 10.6 % [facility] Monocyte Abs 1.0 (H) 0.3 - 0.9 [facility] x10(3)/[facility] LABORATORY Eosinophils % 1.6 % [facility] Eosinophils Abs 0.2 0.0 - 0.4 [facility] x10(3)/[facility] LABORATORY Basophils % 0.4 % [facility] Basophils Abs 0.0 0.0 - 0.1 [facility] x10(3)/[facility] LABORATORY Immature Gran % 0.30 % [facility] Comment: Immature granulocytes(IG's)percentage an d absolute count will include metamyelocytes, myelocytes, and promyelo cytes. Blood smears from CBCs yielding IG's will be scanned manually for concor dance. If this scan disagrees with the automated IG or if promyelocytes are not ed, a manual differential will be performed. Ayah Gran Abs 0.03 0.00 - 0.04 x10(3)/[facility] Specimen Anatomical Collection Method Collection Time Receive d Time (Source) Location / / Volume Laterality Blood specimen 04/30/2019 5:25 PM 020 5:49 (specimen) EDT PM EDT Resulting Agency Comment Spec In Lab Dimas Wesley MD HEMATOLOGY ORDERABLES Performing Organization Address City/State/ZIP Code Phon e Number [place] [id number] (ABNORMAL) Hemogram (04/30/2019 5:25 PM EDT) Analysis Performed At Patho logist Time Signature WBC 9.3 4.0 - 9.5 [facility] x10(3)/[facility] LABORATORY RBC 3.77 (L) 4.00 - [facility] 5.21 [facility] x10(6)/[facility]ORY Hemoglobin 12.1 11.7 - [facility] 15.[facility] gm/dL [facility] Hematocrit 36.1 35.7 - [facility] 45.8 % [facility] MCV 95.8 (H) 82.6 - [facility] 94.4 [facility] MCH 32.1 (H) 27.1 - [facility] 32.0 pg [facility] MCHC 33.5 31.7 - [facility] 35.0 gm/dL [facility] Platelets 275 145 - 357 [facility] x10(3)/[facility] LABORATORY RDWSD 43.7 37.0 - [facility] 46.0 [facility]ORY RDWCV 12.6 11.5 - [facility] 14.1 % [facility] MPV 10.1 7.6 - 12.9 [facility] LABORATORY nRBC % Auto 0.0 % [facility] nRBC Abs Auto 0.000 0.000 - [facility] 0.000 [facility] x10(3)/[facility] LABORATORY Specimen Anatomical Collection Method Collection Time Receive d Time (Source) Location / / Volume Laterality Blood specimen 04/30/2019 5:25 PM 020 5:49 (specimen) EDT PM EDT Resulting Agency Comment Spec In Lab Dimas Wesley MD HEMATOLOGY ORDERABLES Performing Organization Address City/State/Z[place] [address] (ABNORMAL) Basic Metabolic Panel (non-fasting) (04/30/2019 5:25 PM EDT) athologist Signature Glucose Lvl 77 65 - 199 [facility] mg/dL [facility] Comment: Diabetes: >=200 mg/dL plus symp toms BUN 11 8 - 18 mg/dL [facility] Creatinine 0.51 (L) 0.70 - 1.20 mg/dL [facility] Sodium 137 135 - 145 mmol/L [facility] Potassium 3.3 (L) 3.5 - 5.0 mmol/L [facility] Comment: Please note: ??Patients with WBC >100,00 0 may have falsely elevated Potassium levels. ??For accurate Potassium quantif ication in these patients send serum separator tube (gold top) for subsequent determinations. ??Contact the Clinical Chemistry Laboratory if there are any qu estions. Chloride 104 98 - 107 mmol/L [facility] CO2 22 22 - 31 mmol/L [facility] Anion Gap 11 5 - 15 mmol/L [facility] Calcium 9.0 8.5 - 10.5 mg/dL [facility] Estimated GFR 127 >=60 mL/min/1.73 m?? [facility] Comment: The eGFR was calculated using the CKD-EP I equation. As with all creatinine based estimates of kidney function, eGFR values calculated with the CKD-EPI equation are not accurate in patients wi th acute kidney failure, extremes of body mass or the acutely ill. [email or web address]/MCnkf eGFR 147 >=60 mL/min/1.73 m?? [facility] Comment: The eGFR was calculated using the CKD-EP I equation. As with all creatinine based estimates of kidney function, eGFR values calculated with the CKD-EPI equation are not accurate in patients wi th acute kidney failure, extremes of body mass or the acutely ill. [email or web address]/DHnkf Specimen Anatomical Collection Method Collection Time Receive d Time (Source) Location / / Volume Laterality Blood specimen 04/30/2019 5:25 PM 020 5:50 (specimen) EDT PM EDT Resulting Agency Comment Spec In Lab Héctor Grider MD CHEMISTRY ORDERABLES Performing Organization Address City[facility] Code Phon e Number [place] [phone] EKG 12 Lead (04/30/2019 3:46 PM EDT) Component Value Ref Range Test Analysis Performed Pathologis t Method Time At Signature Ventricular rate 65 BPM MUSE SYSTEM Atrial Rate 65 BPM MUSE SYSTEM P-R Interval 154 ms MUSE SYSTEM QRS Duration 80 ms MUSE SYSTEM Q-T Interval 420 ms MUSE SYSTEM QTC Calculated 436 ms MUSE SYSTEM (Bezet) Calculated P [place] 30 degrees MUSE SYSTEM Calculated R [place] 63 degrees MUSE SYSTEM Calculated T [place] 33 degrees MUSE SYSTEM INTERPRETATION Normal sinus rhythm MUSE SYSTEM Possible Left atrial enlargement Borderline ECG When compared with ECG of 09-APR-2019 14:56, No significant change was found Confirmed by MD Elicia, Zeenat ([id number]) on 04/30/2019 5:5 6:31 PM Specimen Anatomical Collection Method Collection Time Receive d Time (Source) Location / / Volume Laterality 04/30/2019 3:46 PM 0 5:56 EDT PM EDT Héctor Grider MD ECG ORDERABLES Performing Organization Address City/[facility]/ZIP Code Phon e Number MUSE SYSTEM documented in this encounter Visit Diagnoses Diagnosis Upper respiratory tract infection, unspe cified type - Primary High risk , antepartum Nausea and vomiting during documented in this encounter Administered Medications Inactive Administered Medications - up to 3 most recent administrations Medication Order MAR Action Action Date Dose Rate Site albuterol 90 mcg/actuation Given 04/30/2019 4:00 PM EDT 2 puffs inhaler 1-2 puff 1-2 puff, Inhalation, EVERY 4 HOURS PRN, Starting on Sun04/30/19 at 1624, Until Sun04/30/19 at 2156, Wheezing, Shortness of Breath, Please use with spacer, STAT lactated Ringers 1,000 mL IV bolus New Bag 04/30/2019 4:30 PM EDT Intravenous, ONCE, 1 dose, On Sun04/30/19 at 1630 documented in this encounter Active and Recently Administered Medications Times are shown in EDT. Scheduled Medication Order 04/28/2019 04/29/2019 04/30/2019 lactated Ringers 1,000 mL IV bolus 1630 (New Bag - Provider: Bertha Payne, RN)2000 (Stopped - Provider: Julianna Carcamo RN) Intravenous, ONCE, 1 dose, Sun04/30/19 at 1630 PRN Medication Order 04/28/2019 04/29/2019 04/30/2019 albuterol 90 mcg/actuation inhaler 1-2 puff 1600 (Given - Provider: Bertha Payne RN) 1-2 puff, Inhalation, EVERY 4 HOURS PRN, Starting Sun04/30/19 at 1624, Until Sun04/30/19 at 2156, Wheezing, Shortness of Breath, Please use with spacer, STAT documented in this encounter Care Teams Lining Brusher Relationship Specialty Start Date End Date Genet Holland PA PCP - General Family Medicine 02/06/19 05/15/20 [address] [place] [address] documented as of this encounter
--- OUTSIDE RECORDS SUMMARY | 2021-10-20 07:57 | XMS_ITS | Encounter Summary ---
:1985 Author Organization [facility] [place] [address] Care Team Providers Name Role Phone Genet Holland Primary Care Provider Reason for Visit Reason Comments Routine Visit Encounter Details Date Type Department Care Team Description 07/17/2019 Routine Obstetrics and Katerina Doyle G A: 27w4d Gynecology at [facility] [place] [address] OBSTETRICS & [phone] GYNECOLOGY [place], [place] [address] (Wo rk) Social History Tobacco [...] Sign Reading Time Taken Comments Blood Pressure 109/53 07/17/2019 3:24 PM EDT Pulse - - Temperature - - Respiratory Rate - - Oxygen Saturation - - Inhaled Oxygen Concentration - - Weight 89.4 kg (197 lb 1.6 oz) 07/17/2019 3:24 PM EDT Height - - Body Mass Index 29.11 04/30/2019 3:18 PM EDT documented in this encounter Progress Notes Katerina Doyle MD - 07/17/2019 4:00 PM EDT FM felt, no LOF, no bleeding or lyndsey. US today appropriate growth and fluid. Moved into own housing. In MOMs in recovery. Sees Jennifer Wu every week. Normal GCT, TSH. F/u MFM 4 weeks. Needs TdaP and CBC next visit. documented in this encounter Plan of Treatment Not on filedocumented as of this encounter Visit Diagnoses Diagnosis Supervision of high risk in th ird trimester Unspecified high-risk documented in this encounter Care Teams Spool Sander Relationship Specialty Start Date End Date Genet Holland PA PCP - General Family Medicine 02/06/19 05/15/[address] [place] [address] documented as of this encounter
--- OUTSIDE RECORDS SUMMARY | 2021-10-20 07:57 | XMS_ITS | Encounter Summary ---
:1985 Author Organization [facility] [place] [address] Care Team Providers Name Role Phone Genet Holland Primary Care Provider Encounter Details Date Type Department Care Team Description 04/15/2019 Telephone Cardiology at [facility] Aislinn Pereira, RN [facility] [place] [address] Social History Tobacco Use Types Packs/Day Years Used Date Current Every Day Smoker Cigarettes 0.5 Smokeless Tobacco: Never Used Alcohol Use Standard Drinks/Week Comments No 0 (1 standard drink = 0.6 oz pure alcoho l) Not during Sex Assigned at Date Recorded Female 04/13/2020 8:26 AM EST documented as of this encounter Miscellaneous Notes Telephone Encounter - Aislinn Pereira, RN - 04/15/2019 3:30 PM EDT RTC to pt who had LVM asking if she could take the Labetalol at night? Pt is 15 weeks and states that she is feeling much better now since she started this medication but it is making her verytired. She is wondering if she can take it at night. Advised pt that it's fine to take it at night however she should be very careful getting up out of bed if she needs to get up at night to use the bathroom. Pt is encouraged to also check in with her Ob-Machine Shop Worker to let them know she is going to take this med at night. Pt wants Dr. Valentin to know how thankful she is that he prescribed this medication toher because she feels so much better on it and having very few palpitations. Advised pt will forwardmessage to Dr. Valentin. documented in this encounter Plan of Treatment Not on filedocumented as of this encounter Visit Diagnoses Not on filedocumented in this encounter Care Teams Loss Prevention Representative Relationship Specialty Start Date End Date Genet Holland PA PCP - General Family Medicine 02/06/19 05/15/[address] [place] [address] documented as of this encounter
--- OUTSIDE RECORDS SUMMARY | 2021-10-20 07:57 | XMS_ITS | Encounter Summary ---
:1985 Author Organization [facility] [place] [address] Care Team Providers Name Role Phone Genet Holland Primary Care Provider Reason for Referral Diagnostic Test (Routine) - Closed Specialty Diagnoses / Procedures Referred By Contact Refer red To Contact Cardiology Diagnoses Palpitations Khai Valentin MD [facility] Non-Inv Card Lab Procedures Echocardiogram Transthoracic([facility]) [facility] [place] [address] [place] [address] Referral ID Status Reason Start Date Expiration Date Visits V isits Requested Authorized [id number] Closed Specialty 04/09/2019 04/08/2020 1 1 Service Requested Reason for Visit Consultation (Routine) - Specialty Diagnoses / Procedures Referred By Contact Refer red To Contact Cardiology Diagnoses Heart palpitations History of endocarditis in adulthood Jennifer Wu CNM [facility] Cardiology [address] [facility] OBSTETRICS & [place] [address] [place] [address] Referral ID Status Reason Start Date Expiration Date Visits V isits Requested Authorized [id number] Consult, 03/26/2019 03/25/2020 1 1 Test & Treat Encounter Details Date Type Department Care Team Description 04/09/2019 Office Visit Cardiology at [facility] Khai Valentin MD Palpitations [facility] [address] CARDIOLOGY DEPT [phone] [place] [phone] (Wo rk) Social History Tobacco Use Types [...] Time Taken Comments Blood Pressure 104/64 04/09/2019 2:43 PM EST Pulse 69 04/09/2019 2:43 PM EST Temperature - - Respiratory Rate - - Oxygen Saturation 100% 04/09/2019 2:43 PM EST Inhaled Oxygen Concentration - - Weight 80.7 kg (177 lb 14.4 oz) 04/09/2019 2:43 PM EST Height 175.3 cm (5' 9) 04/09/2019 2:43 PM EST Body Mass Index 26.27 04/09/2019 2:43 PM EST documented in this encounter Progress Notes Khai Valentin MD - 04/09/2019 4:00 PM EST HPI: Shirlene Kovacs is a 33 y.o. year old who is 14 weeks . She has been noticing more palpitations and these are associated with shortness of breath. Made better with lying down. She has a historyof hodgkin's disease and endocarditis (2011). Not using any drugs now. She has not had a echo on herself. Echo in 2018 was normal. No passing out. She does note lightheadedness. PMHX Patient Active Problem List Diagnosis Code [...] O21.9 ??? High risk , antepartum O09.90 MEDS: Current Outpatient Medications on File Prior to Visit Medication Sig Dispense Refill ??? hydrocortisone (Anusol-HC) [address] 1 suppository rectally 2 times daily. 12 suppository 3 ??? promethazine (PHENERGAN) 25 mg Tablet Take [...] Take 15 mg by mouth as needed. ??? [DISCONTINUED] buprenorphine-naloxone (SUBOXONE) 8-[address] 16 mg of opiate under the tongue daily. 14 each 0 ??? FLUoxetine (PROzac) 20 mg Tablet Take 2 tablets by mouth daily. Indications: Depression (Patientnot taking: Reported on 04/09/2019) 60 tablet 0 ??? [DISCONTINUED] docusate sodium (Colace) 100 mg Capsule Take 1 capsule by mouth 2 times daily. 60capsule 5 ??? [DISCONTINUED] polyethylene glycol (Miralax) 17 gram/dose Powder Take 17 g by mouth daily. 510 g5 ??? nicotine (NICODERM CQ) 7 mg/24 hr Patch 24 hr Change 1 patch on the skin daily. (Patient not taking: Reported on 04/09/2019) 28 patch 0 ??? nicotine polacrilex (NICORETTE) 2 mg Gum Take 1 each by mouth as needed for Smoking cessation. (Patient not taking: Reported on 04/09/2019) 81 each 0 ??? [DISCONTINUED] polyethylene glycol (MIRALAX) 17 gram/dose Powder Take 17 g by mouth daily. 255 g1 ??? [DISCONTINUED] PLUS, CALCIUM CARB, 27 mg iron- 1 mg Tablet 0 ??? [DISCONTINUED] ibuprofen (ADVIL;MOTRIN) 600 mg Tablet Take 1 tablet by mouth every 6 hours as needed for Pain. (Patient not taking: Reported on 02/19/2019) 30 tablet 12 No current facility-administered medications on file prior [...] file Gets together: Not on file Attends denominational service: Not on file Active member of [...] and found to be negative. Physical Examination Most Recent Vitals: 04/09/19 1443 BP: 104/64 Pulse: 69 SpO2: 100% General: no acute distress Behavioral: Alert and oriented to person place and time Heent: Cranial nerves 2-12 grossly intact, JVP not elevated, no carotid bruits CV: RRR normal s1 and s2 without murmurs present Lungs: CTA bilaterally Abd: soft, nt, bs positive, no pulsatile masses Extrem: no lower extremity edema Pulses: radial Pulses = bilaterally Skin: warm, dry without rashes Neuro: muscle strength grossly = bilaterally EKG: Performed. Ekg reviewed by myself LABS: Labs reviewed by myself Recent Results (from the past 24 hour(s)) TSH Result Value Ref Range TSH 1.64 0.27 - 4.20 mcIU/mL Hepatic Function Panel Result Value Ref Range Total Protein 6.6 6.1 - 8.0 gm/dL Albumin 3.9 3.2 - 5.2 gm/dL AST 33 (H) 0 - 30 unit/L ALT 38 (H) 0 - 30 unit/L Alk Phos 59 35 - 105 unit/L Total Bilirubin 0.3 0.2 - 1.3 mg/dL Bili, Direct 0.1 0.0 - 0.3 mg/dL Hepatitis B Surface Antigen Result Value Ref Range HepB Surface Ag Negative Negative Hemogram Result Value Ref Range WBC 10.4 (H) 4.0 - 9.5 x10(3)/mcL RBC 4.01 4.00 - 5.21 x10(6)/mcL Hemoglobin 12.8 11.7 - 15.5 gm/dL Hematocrit 38.0 35.7 - 45.8 % MCV 94.8 (H) 82.6 - 94.4 fL MCH 31.9 27.1 - 32.0 pg MCHC 33.7 31.7 - 35.0 gm/dL Platelets 308 145 - 357 x10(3)/mcL RDWSD 44.8 37.0 - 46.0 fL RDWCV 12.8 11.5 - 14.1 % MPV 9.9 7.6 - 12.9 fL nRBC % Auto 0.0 % nRBC Abs Auto 0.000 0.000 - 0.000 x10(3)/mcL Differential, Automated Result Value Ref Range Neutrophils % 57.4 % Neutr Abs (ANC) 5.96 1.70 - 6.10 x10(3)/mcL Lymphocytes % 33.1 % Lymphocytes Abs 3.4 (H) 0.9 - 3.2 x10(3)/mcL Monocytes % 7.2 % Monocyte Abs 0.8 0.3 - 0.9 x10(3)/mcL Eosinophils % 1.3 % Eosinophils Abs 0.1 0.0 - 0.4 x10(3)/mcL Basophils % 0.5 % Basophils Abs 0.0 0.0 - 0.1 x10(3)/mcL Immature Gran % 0.50 % Ayah Gran Abs 0.05 (H) 0.00 - 0.04 x10(3)/mcL Antibody screen Result Value Ref Range Expires at 2359 on: 04/12/2019 ABORH Recheck Status Result Value Ref Range ABORH Type Recheck Completed Assessement and Plan: 33 year old female who is with really increased palpitations. 1. Need echo and holter monitor. Try low dose labetolol to see if this helps. 2. Follow up one month 3. Try labetolol given daily symptoms to see if this helps. documented in this encounter Plan of Treatment Not on filedocumented as of this encounter Procedures Procedure Name Priority Date/Time Associated Diagnosis Comme nts EKG 12-LEAD Routine 04/09/2019 2:56 PM Palpitations Results f or this EST procedure are i n the results section . documented in this encounter Results ECHOCARDIOGRAM COMPLETE (07/24/2019 10:38 AM EDT) Anatomical Region Laterality Modality Other Specimen (Source) Anatomical Location Collection Method / Collectio n Time Received Time / Laterality Volume 07/24/2019 Narrative 07/24/2019 11:28 AM EDT Procedure: ?Transthoracic Echocardiogram Patient: ?CHARLY Dumas ? (Age): 1985(34y) Med Rec#: ? [id number] ?Sex: ?F ? Site Loc: ? [facility] ?Ht / Wt: ??175(cm)/89(kg) Pt. Loc: ?Echo Lab ?BSA: ?2.05 Study Date: ?? 07/24/2019 ?Pt. Type: Outpatient Tape: ? Referring: TONE Reading: Chencho Owusu ([id number]) Gate Services Supervisor: Mai Gaston Diagnosis: *Palpitations (R00.2) BP: ? [...] function. ?There is no evidence of mitral hood ve leaflet prolapse. ?There is trace mitral [...] ?The ascending aorta is normal in s ize. ?The left main coronary artery is v [...] E-wave Vmax ?0.9 ?m/sec ? MV deceleration crii539.24 ? m sec ? MV A-wave Vmax [...] ? Mid-Inferior ?Normal ? Mid-Inferoseptal ?Normal ? [place]-Septal ? Normal ? [place]-Anterior ? Normal ? [place]-Lateral ?Normal ? [place]-Inferior ? Normal ? [place]-Tip ?Normal ? This report has been electronically sign ed by: _ Chencho Owusu MD ? 07/24/2019 11:27:36 Images reviewed and interpretation [facility] Cardiac Ultrasound Laboratory Procedure Note Chencho Owusu MD - 07/24/2019Form atting of this note might be different from the original. Procedure: Transthoracic Echocardiogram Patient: CHARLY Dumas (Age): [birth year](34y) Med Rec#: [id number] Sex: F Site Loc: [facility] Ht / Wt: 175(cm)/89(kg) Pt. Loc: Echo Lab BSA: 2.05 Study Date: 07/24/2019 Pt. Type: Outpati ent Tape: Referring: TONE Reading: Chencho Owusu ([id number]) Gate Services Supervisor: Mai Gaston Diagnosis: *Palpitations (R00.2) BP: 111/59 [...] MV E-wave Vmax 0.9 m/sec MV deceleration ncnn977.24 msec MV A-wave Vmax 0.7 m/sec MV [...] Normal Mid-Posterolateral Normal Mid-Inferior Normal Mid-Inferoseptal Normal [place]-Septal Normal [place]-Anterior Normal [place]-Lateral Normal [place]-Inferior Normal [place]-Tip Normal This report has been electronically sign ed by: _ Chencho Owusu MD 07/24/2019 11:27: 36 Images reviewed and interpretation verif ied [facility] Cardiac Ultrasound Laboratory Khai Valentin MD ECHO ORDERABLES Holter Monitor 48hr (04/10/2019 9:22 AM EST) Anatomical Region Laterality Modality Other Specimen (Source) Anatomical Location Collection Method / Collectio n Time Received Time / Laterality Volume Impressions 05/05/2019 10:15 AM EDT : 1) sinus rhythm with diurnal variation s een throughout 2) no pauses, high degree AV block, or a trial fibrillation seen 3) no significant ectopy 4) a single patient triggered event anthony elates with sinus tachycardia (104 bpm) Narrative 05/05/2019 10:15 AM EDT 48-HOUR HOLTER MONITOR INTERPRETATION: Reason given for test: palpitations Test date: 04/10/2019 1. Predominant underlying rhythm was sin us rhythm, average 81 BPM, range 61-133 BPM, with physiologic diurnal yadira iation. Normal intervals and no significant pauses. 8% of the recording was classified as tachycardia (>100 bpm) and 0% of the recording was c lassified as bradycardia (<60 bpm). 2. There was very rare supraventricular ectopy consisting of <<1% all complexes 3. There was very rare ventricular ectop y consisting of <<1% of all complexes 4. Symptoms reported as follows: No symptoms reported -- correlated with a period of sinus tachycardia 104 bpm at 10:55 am Khai Valentin MD CARDIAC SERVICES ORDERABLES EKG 12 Lead (04/09/2019 2:56 PM EST) Component Value Ref Range Test Analysis Performed Pathologis t Method Time At Signature Ventricular rate 63 BPM MUSE SYSTEM Atrial Rate 63 BPM MUSE SYSTEM P-R Interval 148 ms MUSE SYSTEM QRS Duration 78 ms MUSE SYSTEM Q-T Interval 414 ms MUSE SYSTEM QTC Calculated 423 ms MUSE SYSTEM (Bezet) Calculated P [place] 36 degrees MUSE SYSTEM Calculated R [place] 72 degrees MUSE SYSTEM Calculated T [place] 50 degrees MUSE SYSTEM INTERPRETATION Normal sinus [...] in this encounter Visit Diagnoses Diagnosis Palpitations Palpitations Palpitations documented in this encounter Care Teams Medical Technicians Relationship Specialty Start Date End Date Genet Holland PA PCP - General Family Medicine 02/06/19 05/15/[address] [place] [address] documented as of this encounter
--- OUTSIDE RECORDS SUMMARY | 2021-10-20 07:57 | XMS_ITS | Encounter Summary ---
:1985 Author Organization [facility] [place] [address] Care Team Providers Name Role Phone Genet Holland Primary Care Provider Encounter Details Date Type Department Care Team Description 07/14/2019 Telephone Cardiology at [facility] [place]ña [place] [address] Social History Tobacco Use Types Packs/Day Years Used Date Current Every Day Smoker Cigarettes 0.5 Smokeless Tobacco: Never Used Alcohol Use Standard Drinks/Week Comments No 0 (1 standard drink = 0.6 oz pure alcoho l) Not during Sex Assigned at Date Recorded Female 04/13/2020 8:26 AM EST documented as of this encounter Miscellaneous Notes Telephone Encounter - Toña Bates LNA - 07/14/2019 11:48 AM EDT Called and reviewed chart with pt Weight 195 lb Pt does not monitor BP at home No recent hospitalizations documented in this encounter Plan of Treatment Not on filedocumented as of this encounter Visit Diagnoses Not on filedocumented in this encounter Care Teams Eye Dropper Assembler Relationship Specialty Start Date End Date Genet Holland PA PCP - General Family Medicine 02/06/19 05/15/[address] [place] [address] documented as of this encounter
--- OUTSIDE RECORDS SUMMARY | 2021-10-20 07:57 | XMS_ITS | Encounter Summary ---
:1985 [place] [address] Care Team Providers Name Role Phone Genet Holland Primary Care Provider Reason for Visit Reason Onset Date Comments Public [facility] Screening 07/30/2019 Encounter Details Date Type Department Care Team Description 07/30/2019 Telephone Otolaryngology at [facility] Frandy Carney [facility] [place] [address] Social History Tobacco Use Types Packs/Day Years Used Date Current Every Day Smoker Cigarettes 0.25 Smokeless Tobacco: Never Used Alcohol Use Standard Drinks/Week Comments No 0 (1 standard drink = 0.6 oz pure alcoho l) Not during Sex Assigned at Date Recorded Female 04/13/2020 8:26 AM EST documented as of this encounter Miscellaneous Notes Telephone Encounter - Frandy Carney RN - 07/30/2019 10:26 AM EDT Spoke with patient and Jennifer Wu APRN. Patient will need testing done in [place] and will be arranged by provider since patient is unable to get test done at [facility]. HEATH Ma, RN [facility] Hotline Triage Nurse documented in this encounter Plan of Treatment Not on filedocumented as of this encounter Visit Diagnoses Not on filedocumented in this encounter Care Teams Psychological Tests Sales Agent Relationship Specialty Start Date End Date Genet Holland PA PCP - General Family Medicine 02/06/19 05/15/20 [address] [place] [address] documented as of this encounter
--- OUTSIDE RECORDS SUMMARY | 2021-10-20 07:57 | XMS_ITS | Encounter Summary ---
:1985 Author Organization [facility] [place] [address] Care Team Providers Name Role Phone Genet Holland Primary Care Provider Encounter Details Date Type Department Care Team Description 04/10/2019 Hospital Encounter Non-Invasive Cardiology Sherly Valentin, Palpitations Lab Airam Beltran [facility] [address] [place] [address] [place] [phone] (Wo rk) Social History Tobacco Use Types [...] Sig Dispensed Refills Start Date End Date polyethylene glycol Take 17 g by mouth 2 510 g 5 201905/10/2019 (Miralax) 17 gram/dose times daily. PowderIndications: Constipation, unspecified constipation type docusate sodium (Colace) Take 1 capsule by 60 capsule 5 05/201905/10/2019 100 mg Capsule mouth 2 times daily. Plus, calcium Take 1 tablet by 90 tablet 3 04/08/2 020 06/18/2019 carb, 27 mg iron- 1 mg mouth daily. Tablet buprenorphine-naloxone Place 16 mg of 14 each 0 0 04/16/2019 (SUBOXONE) 8-2 mg Film opiate under the tongue daily. labetaloL (Normodyne) Take 1 tablet by 60 tablet 11 04/09/19 20 07/09/2019 100 mg Tablet mouth 2 times daily. FLUoxetine (PROzac) 20 Take 2 tablets by 60 tablet 0 201904/14/2019 mg TabletIndications: mouth daily. Depression Indications: Depression promethazine (PHENERGAN) Take 1 tablet by 60 tablet 1 02/1907/09/2019 25 mg Tablet mouth every 6 hours as needed for Nausea. levothyroxine Take 75 mcg by 0 020 (SYNTHROID) 175 mcg mouth. Tablet albuterol (PROVENTIL Inhale 2 puffs into 1 Inhaler 1 201408/03/2019 HFA;VENTOLIN HFA;PROAIR) the lungs every 4 90 mcg/actuation HFA hours as needed for Aerosol Inhaler Wheezing. Use with spacer documented as of this encounter Plan of Treatment Not on filedocumented as of this encounter Procedures Procedure Name Priority Date/Time Associated Diagnosis Comme nts HOLTER MONITOR 48 Routine 04/10/2019 9:22 AM Palpitations Resu lts for this HOUR EST procedure are i n the results section. documented in this encounter Results Holter Monitor 48hr (04/10/2019 9:22 AM EST) [...] am Khai Valentin MD CARDIAC SERVICES ORDERABLES documented in this encounter Visit Diagnoses Diagnosis Palpitations documented in this encounter Care Teams Intelligence Applications Relationship Specialty Start Date End Date Genet Holland PA PCP - General Family Medicine 02/06/19 05/15/[address] [place] [id number] documented as of this encounter
--- OUTSIDE RECORDS SUMMARY | 2021-10-20 07:57 | XMS_ITS | Encounter Summary ---
:1985 Author Organization [facility] [place] [address] Care Team Providers Name Role Phone Genet Holland Primary Care Provider Encounter Details Date Type Department Care Team Description 02/14/2019 External Results Obstetrics and Gynecology Lien [place], [place] [address] Social History Tobacco Use Types Packs/Day Years [...] Name Priority Date/Time Associated Diagnosis Comme nts BETA HCG, QUANTITATIVE Routine 02/11/2019 Resul ts for this procedure are i n the results section . documented in this encounter Results Beta HCG, quantitative (02/11/2019) P athologist Signature Beta hCG Quant 4,073.7 Specimen (Source) Anatomical Location Collection Method / Collectio n Time Received Time / Laterality Volume Blood specimen 02/11/2019 (specimen) Katerina Doyle MD CHEMISTRY ORDERABLES documented in this encounter Visit Diagnoses Not on filedocumented in this encounter Care Teams Mounter Saxophones Relationship Specialty Start Date End Date Genet Holland PA PCP - General Family Medicine 02/06/19 05/15/[address] [place] [id number] documented as of this encounter
--- OUTSIDE RECORDS SUMMARY | 2021-10-20 07:57 | XMS_ITS | Encounter Summary ---
:1985 Author Organization [place] [place] [address] Care Team Providers Name Role Phone Genet Holland Primary Care Provider Encounter Details Date Type Department Care Team Description 03/14/2019 Orders Only Obstetrics and Katerina Lima Supervis ion of [facility] Gy[place]cology [place] [facility] [place] Elizabeth risk in [facility] [address] [place], [place] OBSTETRICS & [phone] GYNECOLOGY [phone] [place], [place] [address] (Wo rk) Social History Tobacco [...] as of this encounter Results US OB Detailed Morphology [...] abnormalities are noted. ? Katerina Lima, Staff Dilmalisa hart Electronically Signed Final Report ?? 11:02 am Narrative 05/20/2019 11:02 AM EDT OBSTETRICS REPORT ? (Signed Final 05/20/2019 11:02 am) PATIENT INFO: ID #: ? [id number] ?: ??[birth year] (33 yrs)(F) Name: ? SHIRLENE PARKS ?Visit Date: 05/20/2019 10:02 am PERFORMED BY: Performed By: ? Rose Peña RDMS Attending: ?Vivek NAPOLES, Britni Rooney Referred By: ?KATERINA LIMA Location: ? [facility]) PROVIDED: ??[facility] - Detailed Morphology - [id number] ? [id number] INDICATIONS: ??19 weeks gestation of ?Z3A.19 ??substance use disorder VITAL SIGNS: Weight (lb): 177.0 Height: ?5'9 ?BMI: ?26.14 EVALUATION: Num Of Fetuses: ?1 Heart Rate(bpm): ?? 143 Cardiac Activity: ?Observed, normal rhythm Presentation: ?Cephalic Placenta: ?Guitar Maker Hand ior P. Cord Insertion: ? Within Norm [...] ? Visualized SVC: ? Visuali zed Cardiac [place]: ?Visualized Diaphragm: ? Visualized 3 Vessel View: [...] 020 11:02 am) PATIENT INFO: ID #: [id number] : [birth year] (33 y rs)(F) Name: SHIRLENE PARKS Visit Date: 05/19 10:02 am PERFORMED BY: Performed By: Rose Peña RDMS Attending: Katerina Lima MD Referred By: KATERINA LIMA Location: [facility] PROVIDED: [facility] - Detailed Morphology - [id number] INDICATIONS: 19 weeks gestation of [...] Visualized Ductal Arch: Visualized SVC: Visualized Cardiac [place]: Visualized Diaphragm: Visualized 3 Vessel View: Visualized [...] Report 05/19 11:02 am Katerina Lima MD G US OB ORDERABLES documented in this encounter Visit Diagnoses Diagnosis Supervision of high risk in fi rst trimester Unspecified high-risk Supervision of high risk in fi rst trimester Unspecified high-risk documented in this encounter Care Teams Interdisciplinary Professor Relationship Specialty Start Date End Date Genet Holland PA PCP - General Family Medicine 02/06/19 05/15/[address] [place] [phone] documented as of this encounter
--- OUTSIDE RECORDS SUMMARY | 2021-10-20 07:57 | XMS_ITS | Encounter Summary ---
:1985 Author Organization [place] [address] Care Team Providers Name Role Phone Genet Holland Primary Care Provider Encounter Details Date Type Department Care Team Description 07/02/2019 Telephone Obstetrics and Gynecology [place] [address] Social History Tobacco Use Types Packs/Day Years [...] on filedocumented in this encounter Care Teams Solar Photovoltaic Designer Relationship Specialty Start Date End Date Genet Holland PA PCP - General Family Medicine 02/06/19 05/15/[address] [place] [phone] documented as of this encounter
--- OUTSIDE RECORDS SUMMARY | 2021-10-20 07:58 | XMS_ITS | Encounter Summary ---
:1985 [place] [address] Care Team Providers Name Role Phone Autumn Krishnan APRN Primary Care Provider [phone] Encounter Details Date Type Department Care Team Description 02/18/2018 Notes Only [facility] [place] [address] Social History Tobacco Use Types Packs/Day Years Used Date Former Smoker Cigarettes 0.5 Smokeless Tobacco: Never Used Comments: Has maybe 1 a day or 2 Alcohol Use Standard Drinks/Week Comments No 0 (1 standard drink = 0.6 oz pure alcoho l) Not during Sex Assigned at Date Recorded Female 04/13/2020 8:26 AM EST documented as of this encounter Plan of Treatment Not on filedocumented as of this encounter Visit Diagnoses Not on filedocumented in this encounter Care Teams Propagator Relationship Specialty Start Date End Date Autumn Krishnan APRN PCP - General 05/16/20 [place] [address] documented as of this encounter
--- OUTSIDE RECORDS SUMMARY | 2021-10-20 07:58 | XMS_ITS | Encounter Summary ---
:1985 Author Organization [facility] [place] [address] Care Team Providers Name Role Phone Harvey Edilia Piter QUIROS Primary Care Provider Reason for Visit Reason Comments Urinary Tract Infection Laceration L forearm Encounter Details Date Type Department Care Team Description 02/17/2018 - Emergency Emergency Department Delicia Jane Josemanuel lonephritis, acute 02/18/2018 Coleen Bartholomew MD [facility] [address] Dalton EMERGENCY MEDICINE [place] [phone] Social History Tobacco Use Types Packs/Day Years [...] Sign Reading Time Taken Comments Blood Pressure 143/77 02/17/2018 10:26 PM EST Pulse 78 02/17/2018 10:26 PM EST Temperature 36.8 ??C (98.2 ??F) 02/17/2018 10:26 PM EST Respiratory Rate 14 02/17/2018 10:26 PM EST Oxygen Saturation 100% 02/17/2018 10:26 PM EST Inhaled Oxygen Concentration - - Weight 59 kg (130 lb) 02/17/2018 10:26 PM EST Height 175.3 cm (5' 9) 02/17/2018 10:26 PM EST Body Mass Index 19.2 02/17/2018 10:26 PM EST documented in this encounter Discharge Instructions Discharge InstructionsDelicia Jane MD - 02/18/2018 1:19 AM EST Stay in touch with the peer data recovery planner - she can guide you to further services. Return for worsening - feeling sick, fevers/chills, worsening back pain. Drink plenty of fluids. AttachmentsThe following attachments cannot be sent through Care Everywhere. Pyelonephritis (Indonesian)documented in this encounter Medications at Time of Discharge Medication Sig Dispensed Refills Start Date End Date ciprofloxacin (CIPRO) 500 Take 1 tablet by 10 tablet 0 02/0502/23/2018 mg Tablet mouth 2 times daily for [address] buprenorphine-naloxone Place 8 mg of 0 02/07/2019 (SUBOXONE) 2-0.5 mg opiate under the Tablet, Sublingual tongue daily. levothyroxine (SYNTHROID) Take 75 mcg by 0 07/09/2019 175 mcg Tablet mouth. polyethylene glycol Take 17 g by mouth [...] documented as of this encounter ED Notes Asya Haynes - 02/17/2018 11:30 PM EST ED Note: Patient accepted Therapist services Patient scheduled follow up visit with Therapist on 03/02 Patient declined/accepted narcan administration education - did not offer Patient declined/accepted free narcan kit - did not offer Asya Haynes Delicia Jane MD - 02/17/2018 10:59 PM EST Shirlene Kovacs is an 32 y.o. female who presents to the ED with: Chief Complaint Patient presents with ??? Urinary Tract Infection ??? Laceration L forearm HPI Shirlene Kovacs is a 32 y.o. female who presents to the Emergency Department with concern for urinary tract infection. Feels like she has had it for several days and is worried because today she also feels sick. She denies fevers but has chills, does feel a little bit weak. Has a history of substance use disorder and so ignored her symptoms. She took Suboxone today so she does not feel like she is inwithdrawal. Denies vaginal discharge but does admit having sex with someone who has multiple partners. Has a history of chlamydia. Is eating and drinking normally does have some flank pain. Review of Systems: Review of Systems Constitutional: Positive for chills. Negative for fever. Respiratory: Negative for shortness of breath. Cardiovascular: Negative for chest pain. Gastrointestinal: Positive for abdominal pain and nausea. Negative for vomiting. Genitourinary: Positive for dysuria and frequency. Musculoskeletal: Positive for arthralgias. Skin: Positive for wound. Physical Exam: Patient Vitals for the past 24 hrs: BP Temp Temp src Pulse Resp SpO2 Height Weight 02/17/18 2226 143/77 36.8 ??C (98.2 ??F) Oral 78 14 100 % 175.3 cm (5' 9) 59 kg (130 lb) Physical Exam Constitutional: She is oriented to person, place, and time. She appears well- developed and well-nourished. No distress. Pulmonary/Chest: Effort normal. No respiratory distress. Abdominal: Soft. There is no tenderness. Genitourinary: Genitourinary Comments: Mild CVAT Neurological: She is alert and oriented to person, place, and time. Skin: Healing wound on L arm, no cellulitis Nursing note and vitals reviewed. ED Course: - Medications, allergies and past medical history reviewed Symptoms including burning and frequency were consistent with a urinary tract infection, or possiblypyelonephritis. Given her history of chlamydia I will treated with Cipro I talked to her about her substance use disorder and had the data recovery planner come in to talk to her. . We talked about a referral to the addiction treatment program she said she would rather pursue outside of [facility] and will work with the data recovery planner to find a way to get treatment. Assessment and Plan: Assessment: 32 y.o. female with pyelonephritis, OUD Delicia Jane MD 02/20/18 2336 documented in this encounter Plan of Treatment Not on filedocumented as of this encounter Procedures Procedure Name Priority Date/Time Associated Comments Diagnosis POCT URINE STAT 02/18/2018 12:30 Res ults for this AM EST procedure are i n the results section. TRICHOMONAS GENE AMP Routine 02/17/2018 10:35 Res ults for this ([facility]/CGP/APD/NLH) PM EST procedure are in the results section. URINALYSIS STAT 02/17/2018 10:35 Results for this MICROSCOPIC EXAM PM EST procedure a re in the results section. GC/CHLAM Routine 02/17/2018 10:35 Results for this PM EST procedure are i n the results section. URINALYSIS WITH STAT 02/17/2018 10:35 Results for this REFLEX CULTURE PM EST procedure are in the results section. URINE CULTURE STAT 02/17/2018 10:35 Results fo r this PM EST procedure are i n the results section. documented in this encounter Results POCT urine (02/18/2018 12:30 AM EST) ChatID Method Time Signature POC Urine HCG Negative Negative - Negative POC Control Internal Controls Acceptable Specimen (Source) Anatomical Collection Method Collection Time Re ceived Time Location / / Volume Laterality Urine specimen 02/18/2018 12:30 (specimen) AM EST Delicia Jane MD POINT OF CARE TEST ORDERABLE S (ABNORMAL) Trichomonas Gene Amp (02/17/2018 10:35 PM EST) [facility] Purch Method Time Signature Trich Gene Positive (A) Negative [facility] LABORATORY Comment: The only FDA approved specimen types for this assay are cervix and vaginal. Trich Source Urine [facility] Specimen Anatomical Collection Method Collection Time Receive d Time (Source) Location / / Volume Laterality Urine specimen Micro Spec / 02/17/2018 10:35 9 7:55 (specimen) Unknown PM EST AM EST Resulting Agency Comment Spec In Lab Delicia Jane MD MICROBIOLOGY - GENERAL ORDER MICHEL Performing Organization Address City/[facility]/[place]IP [place] [address] GC/Chlam (02/17/2018 10:35 PM EST) P athologist Signature GC Gene Amp Negative Negative [facility] Comment: The only FDA approved specimen types for this assay are cervical, vaginal, urethral and urine. Non-FDA approved rika rces are eye, throat and rectal and have been internally validated. GC Source Urine [facility] Chlamydia Gene Amp Negative Negative [facility] Comment: The only FDA approved specimen types for this assay are cervical, vaginal, urethral and urine. Non-FDA approved rika rces are eye, throat and rectal and have been internally validated. Chlamydia Source Urine [facility] LABOR[facility]ORY Specimen Anatomical Collection Method Collection Time Receive d Time (Source) Location / / Volume Laterality Urine specimen Micro Spec / 02/17/2018 10:35 9 7:55 (specimen) Unknown PM EST AM EST Resulting Agency Comment Spec In Lab Delicia Jane MD MICROBIOLOGY - GENERAL ORDER MICHEL Performing Organization Address City/[facility]/[place] [address] (ABNORMAL) Urine culture (02/17/2018 10:35 PM EST) Patholo gist Method Time Signature Urine Culture Greater than COLEEN 100,000 cfu/ml PRINTER Escherichia [facility] coli (A) HOSPITAL LABORATORY Organism Escherichia COLEEN coli (A) [facility] LAB[facility] Specimen (Source) Anatomical Collection Method Collection Time Re ceived Time Location / / Volume Laterality Urine specimen 02/17/2018 10:35 9 7:39 obtained by clean PM EST AM EST catch procedure (specimen) Resulting Agency Comment Spec In Lab Organism Antibiotic Method Susceptibility Escherichia coli Amikacin MICROSCAN METHOD Sensitive Escherichia coli Ampicillin MICROSCAN METHOD Sensitive Escherichia coli Ampicillin + Sulbactam MICROSCAN METHOD Sensiti ve Escherichia coli Aztreonam MICROSCAN METHOD Sensitive Escherichia coli Cefazolin MICROSCAN METHOD Sensitive Escherichia coli Cefepime MICROSCAN METHOD <=4: Sensitive Escherichia coli Ceftazidime MICROSCAN METHOD <=1: Sensitive Escherichia coli Ceftriaxone MICROSCAN METHOD Sensitive Escherichia coli Cefuroxime MICROSCAN METHOD Sensitive Escherichia coli Ciprofloxacin MICROSCAN METHOD Sensitive Escherichia coli Gentamicin MICROSCAN METHOD Sensitive Escherichia coli Levofloxacin MICROSCAN METHOD Sensitive Escherichia coli Meropenem MICROSCAN METHOD <=1: Sensitive Escherichia coli Nitrofurantoin MICROSCAN METHOD Sensitive Escherichia coli Piperacillin/Tazobactam MICROSCAN METHOD <=16: Sensitive Escherichia coli Tetracycline MICROSCAN METHOD Sensitive Escherichia coli Tobramycin MICROSCAN METHOD Sensitive Escherichia coli Trimethoprim/Sulfa MICROSCAN METHOD Sensitive Héctor [place] MD MICROBIOLOGY - GENERAL ORDER MICHEL Performing Organization Address City/[facility]/[place] [address] (ABNORMAL) Urinalysis Microscopic Exam (02/17/2018 10:35 PM EST) World Vital Records Time Signature RBC UA 19 (H) 0 - 4 [facility] WBC UA >182 (H) 0 - 5 [facility]ORY Bacteria UA Occasional (A) None /HPF [facility] Squam Epith 1 <=4 /HPF [facility] LABORATORY Renal Epith 2 (H) <=0 /HPF [facility] LAB[facility]ORY Specimen (Source) Anatomical Collection Method Collection Time Re ceived Time Location / / Volume Laterality Urine specimen 02/17/2018 10:35 9 obtained by clean PM EST 10:[address] catch procedure (specimen) Resulting Agency Comment Spec In Lab Héctor [place] MD URINE ORDERABLES Performing Organization Address City/[facility]/ZIP Code Phon e Number [address] (ABNORMAL) Urinalysis with reflex Culture (02/17/2018 10:35 PM EST) Patholo gist Method Time Signature Glucose UA Negative Negative [facility] Protein UA 100 (A) Negative [facility] mg/dL [facility] Bilirubin UA Negative Negative [facility] mg/dL [facility] Comment: Clinical correlation required for positi ve Urine Bilirubin results as false positive may occur with some drugs and d rug related products. If a false positive is suspected a serum total bili lópez should be considered if clinically indicated. Urobilinogen UA >=4.0 (A) Normal mg/dL [facility] LAB[facility] pH UA 6.0 5.0 - 8.0 [facility] Blood UA Negative Negative mg/dL [facility] Ketones UA 5 (A) Negative mg/dL [facility] Nitrite UA Positive (A) Negative [facility] Leukocytes UA Small (A) Negative [facility] LABORATORY Appearance UA Clear Clear [facility] Spec [place] UA 1.017 1.002 - 1.030 [facility] Color UA Naila Yellow [facility] Culture Reflexed Yes [facility] Specimen (Source) Anatomical Collection Method Collection Time Re ceived Time Location / / Volume Laterality Urine specimen 02/17/2018 10:35 9 obtained by clean PM EST 10:[address] catch procedure (specimen) Resulting Agency Comment Spec In Lab Delicia Jane MD URINE ORDERABLES Performing Organization Address City/State/[place] [address] documented in this encounter Visit Diagnoses Diagnosis Pyelonephritis, acute Acute pyelonephritis without lesion of r enal medullary necrosis documented in this encounter Administered Medications Inactive Administered Medications - up to 3 most recent administrations Medication Order MAR Action Action Date Dose Rate Site ciprofloxacin (CIPRO) tablet 500 Given 02/18/2018 12:43 AM EST 5 00 mg mg 500 mg, Oral, ONCE, 1 dose, On 02/18/18 at 0043, Routine documented in this encounter Active and Recently Administered Medications Times are shown in EST. Scheduled Medication Order 02/16/2018 02/17/2018 02/18/2018 ciprofloxacin (CIPRO) tablet 500 mg (COMPLETED) 0043 (Given - Provider: Francis Richard RN) 500 mg, Oral, ONCE, 1 dose, 02/18/18 at 0043, Routine documented in this encounter Care Teams Free Lance Model Relationship Specialty Start Date End Date Edilia Gabriel APRN PCP - General Family Medicine 07/12/17 09/04/18 documented as of this encounter
--- OUTSIDE RECORDS SUMMARY | 2021-10-20 07:58 | XMS_ITS | Encounter Summary ---
:1985 Author Organization [facility] [place] [address] Care Team Providers Name Role Phone Genet Holland Primary Care Provider Reason for Visit Reason Onset Date Comments Results 02/10/2019 Encounter Details Date Type Department Care Team Description 02/10/2019 Telephone Obstetrics and Gynecology at [place] [address] Social History Tobacco Use Types Packs/Day Years Used Date Current Every Day Smoker Cigarettes 0.5 Smokeless Tobacco: Never Used Alcohol Use Standard Drinks/Week Comments No 0 (1 standard drink = 0.6 oz pure alcoho l) Not during Sex Assigned at Date Recorded Female 04/13/2020 8:26 AM EST documented as of this encounter Miscellaneous Notes Telephone Encounter - Aislinn Trevino RN - 02/10/2019 12:11 PM EST Result of beta Hcg is 1266. She will need serial hcgs collected to determine viability and time frame for repeat u/s for viability. Telephone Encounter - Aislinn Trevino RN - 02/10/2019 12:09 PM EST Shirlene is looking for results of an hcg collected at [facility] on . I will call her back after asking [facility] to send results to [facility]. documented in this encounter Plan of Treatment Not on filedocumented as of this encounter Visit Diagnoses Not on filedocumented in this encounter Care Teams Work Force Advisor Relationship Specialty Start Date End Date Genet Holland PA PCP - General Family Medicine 02/06/19 05/15/20 [address] [place] [address] documented as of this encounter
--- OUTSIDE RECORDS SUMMARY | 2021-10-20 07:58 | XMS_ITS | Encounter Summary ---
:1985 Author Organization [facility] [place] [address] Care Team Providers Name Role Phone Genet Holland Primary Care Provider Encounter Details Date Type Department Care Team Description 02/08/2019 Hospital [place] [address] Social History Tobacco Use Types Packs/Day [...] Sig Dispensed Refills Start Date End Date clindamycin (CLEOCIN) 300 take 1 capsule by 0 03/05/2019 mg Capsule mouth every 6 hours for 10 days buprenorphine (SUBUTEX) 8 TAKE 1 TABLET UNDER 0 1 02/19/2019 mg Tablet, Sublingual THE TONGUE AND ALLOW TO DISSOLVE TWICE A DAY FOR 7 DAYS levothyroxine (SYNTHROID) Take 75 mcg by 0 [...] Name Priority Date/Time Associated Diagnosis Comme nts HEPATITIS B SURFACE Routine 02/08/2019 11:56 AM R esults for this ANTIGEN EST procedure are i n the results section. documented in this encounter Results Hepatitis B Surface Antigen (02/08/2019 11:56 AM EST) Analysis Performed At Patho logist Time Signature HepB Surface Negative Negative [facility] LABORATORY Specimen Anatomical Collection Method Collection Time Receive d Time (Source) Location / / Volume Laterality Blood specimen Venous Draw / 02/08/2019 11:56 02/10/19 20 (specimen) Unknown AM EST 10:28 PM EST Resulting Agency Comment Spec In Lab Katerina Doyle MD CHEMISTRY ORDERABLES Performing Organization Address City/State/ZIP Code Phon e Number [place] [phone] documented in this encounter Visit Diagnoses Not on filedocumented in this encounter Care Teams Chief Fundraising Officer Relationship Specialty Start Date End Date Genet Holland PA PCP - General Family Medicine 02/06/19 05/15/20 [address] [place] [address] documented as of this encounter
--- OUTSIDE RECORDS SUMMARY | 2021-10-20 07:58 | XMS_ITS | Encounter Summary ---
:1985 Author Organization [facility] [place] [address] Care Team Providers Name Role Phone None Primary Care Provider Unavailable Encounter Details Date Type Department Care Team Description 10/19/2018 Telephone [place] [facility] [place] Brown MD [facility]3] [place] [address] ORTHOPAEDIC SURGERY [phone] [place] [id number] (Wo rk) Social History Tobacco Use Types [...] this encounter Miscellaneous Notes Telephone Encounter - Gavin Brown MD - 10/20/2018 1:18 AM EDT Shirlene Kovacs is a 33 y.o. female I was called for a consult about from [facility]. The patient has A PMHx of IVDU and notable injected cocaine into her L hand over the radial dorsal surface. For the past month the patient has experienced slowly progressing pain and swelling around thedorsal area where her injection site was. She notes some increased pain in the last few days but nota dramatic increase. There has been no drainage, no increased pain with ROM of wrist, fingers or thumb, no proximally spreading erythema. Has been afebrile, but WBC of 18.3k, ESR and CRP not performed but requested. CT performed yesterday at [place] [facility] with a loculated thick walled fluid collection over the dorsal thumb metacarpal base towards the wrist compatible with abscess. Patient is not septic per report. Consulted regarding IV abx versus surgical debridement. Due to potential social circumstances making [facility] IV abx a possible problem with this patient I though surgical debridement for source control may be a reasonable idea. Based on the slow progression of symptoms and non septic picture I did not think this needed immediate washout tonight. Will plan to receive IV abx at [place] overnight and will call back tomorrow morning to discuss transfer for possible surgical I&D. Gavin Brown MD 10/20/2018 documented in this encounter Plan of Treatment Not on filedocumented as of this encounter Visit Diagnoses Not on filedocumented in this encounter Care Teams Drum Operator Relationship Specialty Start Date End Date None PCP - General 10/20/18 02/05/19 None documented as of this encounter
--- OUTSIDE RECORDS SUMMARY | 2021-10-20 07:58 | XMS_ITS | Encounter Summary ---
:1985 [place] [address] Care Team Providers Name Role Phone Genet Holland Primary Care Provider Encounter Details Date Type Department Care Team Description 02/07/2019 Hospital Encounter Ultras[place] [facility] Katerina Lima Supervision of [facility] MD Elizabeth risk in [facility] first trimester [place], [place] [address] OBSTETRICS & [phone] GYNECOLOGY [place], [place] [address] Social History Tobacco Use Types [...] Diagnosis Comme nts US OB TRANSVAGINAL Routine 02/07/2019 2:30 PM Supervision of aneudy freeman Results for this EST risk in procedure are in first trimester the results section. documented in this encounter Results US OB Viability Transvaginal (02/07/2019 2:30 PM EST) Anatomical Region Laterality Modality Pelvis, Abdomen Ultrasound Specimen (Source) Anatomical Collection Method Collection Time Re ceived Time Location / / Volume Laterality 02/07/2019 2:27 PM EST Impressions 02/07/2019 2:39 PM EST 1st Trimester Summary of uncertain location of unce rtain viability- probable gestational sac seen. No willard onic pole or yolk sac visualized. ??Clinical correla tion and follow up recommended. ? Katerina Lima, Staff Stephen hart Electronically Signed Final Report ?? 02:38 pm Narrative 02/07/2019 2:39 PM EST OBSTETRICS REPORT ?(Signed Final 02/07/2019 02:38 pm) PATIENT INFO: ID #: ? [id number] ?: ??[birth year] (33 yrs) Name: ? SHIRLENE PARKS ?Visit Date: 02/07/2019 02:27 pm PERFORMED BY: Performed By: ? Roxana ROMERO, ??Javid davis Attending: ?Vivek NAPOLES, Britni Rooney Referred By: ?KATERINA LIMA Location: ? [facility] SERVICE(S) PROVIDED: ??[facility] - Viability -Transvaginal - IMG 1720 ? [id number] INDICATIONS: ??Weeks of gestation of not ?Z3A.00 ??specified ??unsure LMP, abdominal pain, empty maurizio geovanny TECHNIQUE/SCAN QUALITY: Technique: ?? Transducer ID# 17 EVALUATION: Num Of Fetuses: ?1 Preg. Location: ?Unknown Gest. Sac: ? Visuali zed Yolk Sac: ?Not vi sualized Pole: ?Too ear ly to identify pole Cardiac Activity: ?Too early to identify cardiac activity Placenta: ?Too ea rly to evaluate Amniotic Fluid CHRISTIE FV: ?Too early to evaluate --------- BIOMETRY: --------- GS: ?2.8 ??mm ? G.Age: ?? N/A ? ASHLIE: OB HISTORY: : ?2 ? Term: ?? 1 Living: ? 1 CERVIX UTERUS ADNEXA: Left Ovary Size(cm) ? 2.6 ??x ?? 1.4 ?x ??1.2 ? Vol(ml): 2.3 Visualized Right Ovary Size(cm) ? 3.7 ??x ?? 2.4 ?x ??1.7 ? Vol(ml): 7.9 Visualized, measuring 1.8 x 1.4 x 1.2 c m. Cul De Sac No fluid seen Procedure Note Katerina Lima MD - 02/07/2019Form atting of this note might be different from the original. OBSTETRICS REPORT (Signed Final 020 02:38 pm) PATIENT INFO: ID #: [id number] : [birth year] (33 y rs) Name: SHIRLENE PARKS Visit Date: 02/07 02:27 pm PERFORMED BY: Performed By: Gretchen Schmidt RDMS Attending: Katerina Lima MD Referred By: KATERINA LIMA Location: [facility] SERVICE(S) PROVIDED: [facility]OBTV - Viability -Transvaginal - [id number] 20 [id number] INDICATIONS: Weeks of gestation of not Z3A .00 specified unsure LMP, abdominal pain, empty uteru s TECHNIQUE/SCAN QUALITY: Technique: Transducer ID# 17 EVALUATION: Num Of Fetuses: 1 Preg. Location: Unknown Gest. Sac: Visualized Yolk Sac: Not visualized Pole: Too early to identify pole Cardiac Activity: Too early to identify cardiac activity Placenta: Too early to evaluate Amniotic Fluid CHRISTIE FV: Too early to evaluate --------- BIOMETRY: --------- GS: 2.8 mm G.Age: N/A ASHLIE: OB HISTORY: : 2 Term: 1 Livin CERVIX UTERUS ADNEXA: Left Ovary Size(cm) 2.6 x 1.4 x 1.2 Vol(ml): 2.3 Visualized Right Ovary Size(cm) 3.7 x 2.4 x 1.7 Vol(ml): 7.9 Visualized, measuring 1.8 x 1.4 x 1.2 c m. Cul De Sac No fluid seen IMPRESSION 1st Trimester Summary of uncertain location of unce rtain viability- probable gestational sac seen. No willard onic pole or yolk sac visualized. Clinical correlati on and follow up recommended. Katerina Lima, Staff Physician Electronically Signed Final Report 02/07 02:38 pm Katerina Lima MD IMG OB ORDERABLES documented in this encounter Visit Diagnoses Diagnosis Supervision of high risk in fi rst trimester Unspecified high-risk documented in this encounter Care Teams Precision Lens Generator Relationship Specialty Start Date End Date Genet Holland PA PCP - General Family Medicine 02/06/19 05/15/20 [address] [place] [address] documented as of this encounter
--- OUTSIDE RECORDS SUMMARY | 2021-10-20 07:58 | XMS_ITS | Encounter Summary ---
:1985 Author Organization [facility] Address [place] [id number] Care Team Providers Name Role Phone Unknown Primary Care Provider Unavailable Encounter Details Date Type Department Care Team Description 10/19/2018 Interpretation Only [facility] Ernesto Carroll [facility] [address] [place] [id number] [phone] (Wo rk) Social History Tobacco Use Types [...] Name Priority Date/Time Associated Diagnosis Comme nts CT HAND W CONTRAST Routine 10/19/2018 6:41 PM Res ults for this LEFT EDT procedure are i n the results section. documented in this encounter Results CT Hand w Contrast Left (10/19/2018 6:41 PM EDT) Anatomical Region Laterality Modality Hand Left Computed Tomography Specimen (Source) Anatomical Collection Method Collection Time Re ceived Time Location / / Volume Laterality 10/19/2018 6:41 PM EDT Impressions 10/19/2018 7:39 PM EDT Multilocular irregular thick-walled fluid contiguous collections compatible with abscess/abscesses, from soft tissues dena isma to the base of the metacarpal of the thumb to soft tissues dorsal to the wris t. Thank you for letting us participate in the care of this patient. For questions regarding this report, please contact e number below. ? Electronically signed by: Joleen Andrade [facility] ([phone]), at 10/19/2018 7:34 PM Narrative 10/19/2018 7:39 PM EDT EXAMINATION: CT HAND W CONTRAST LEFT CLINICAL HISTORY: IVDU with abscess TECHNIQUE: Axial contiguous sections wer e obtained through the left hand/wrist after the intravenous administration of 100 cc Omnipaque. Coronal and sagittal reconstructions were generated. COMPARISON: None FINDINGS: Extensive subcutaneous soft ti ssue swelling/edema. In the soft tissues dorsal to the base of the metacarpal of the from there is an approximately 24 x 31 x 17 mm thick-walled irregular multil ocular fluid collection containing a few foci of air. Extending from this area la terally to the dorsum of the wrist is a more elongate obliquely-oriented thick-w alled collection at least 25 mm in length, with cross-sectional dimensions of 6 x 4 mm. Then adjacent to this oblong collection dorsal to the wrist is thick-walled multilocular collection approximately 22 x 13 x 5 mm. No appreci able osseous pathology. Procedure Note Joleen Andrade MD - 10/19/2018Formatt ing of this note might be different from the original. EXAMINATION: CT HAND W CONTRAST LEFT CLINICAL HISTORY: IVDU with abscess TECHNIQUE: Axial contiguous sections wer e obtained through the left hand/wrist after the intravenous administration of 100 cc Omnipaque. Coronal and sagittal reconstructions were generated. COMPARISON: None FINDINGS: Extensive subcutaneous soft ti ssue swelling/edema. In the soft tissues dorsal to the base of the metacarpal of the from there is an approximately 24 x 31 x 17 mm thick-walled irregular multil ocular fluid collection containing a few foci of air. Extending from this area la terally to the dorsum of the wrist is a more elongate obliquely-oriented thick-w alled collection at least 25 mm in length, with cross-sectional dimensions of 6 x 4 mm. Then adjacent to this oblong collection dorsal to the wrist is thick-walled multilocular collection approximately 22 x 13 x 5 mm. No appreci able osseous pathology. IMPRESSION Multilocular irregular thick-walled flui d contiguous collections compatible with abscess/abscesses, from soft tissues dena isma to the base of the metacarpal of the thumb to soft tissues dorsal to the wris t. Thank you for letting us participate in the care of this patient. For questions regarding this report, please contact e number below. Ernesto Carroll MD IMG CT ORDERABLES documented in this encounter Visit Diagnoses Not on filedocumented in this encounter Care Teams Operative Supervisor Relationship Specialty Start Date End Date Unknown PCP - General 09/05/18 10/19/18 None documented as of this encounter
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
--- OUTSIDE RECORDS SUMMARY | 2021-10-20 07:58 | XMS_ITS | Encounter Summary ---
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 Irritable bowel ??? Psoriasis ??? PTSD (post-traumatic stress disorder) ??? Reflux ??? Smoking Active Orders Diet Regular diet Frequency: Effective Now Number of Occurrences: Until Specified Admit Weight: 65.09 kg Estimated body mass index is 21.19 kg/m?? as calculated from the following: Height as of this encounter: 175.3 cm (5' 9). Weight as of this encounter: 65.1 kg (143 lb 8 oz). [place] Body Weight (IBW): [place] body weight: 66.2 kg (145 lb 15.1 oz) UBW: 160 per pt 9% weight loss in 1 month Estimated needs: Calories: 1650 Protein: 66 grams Today's medications: ??? ondansetron (ZOFRAN) tablet 4 mg OR ondansetron (ZOFRAN) injection 4 mg ??? [COMPLETED] buprenorphine-naloxone (SUBOXONE) 2-0.5 mg sublingual tablet 2 tablet FOLLOWED BY buprenorphine-naloxone (SUBOXONE) 2-0.5 mg sublingual tablet 1-2 tablet ??? [START ON 07/19/2018] Buprenorphine - daily order reminder 1 each ??? nystatin (Mycostatin) (100,000 units/mL) oral liquid 500,000 Units ??? gabapentin (NEURONTIN) capsule 100 mg ??? sodium chloride 0.9 % (flush) flush 5 mL ??? sodium chloride 0.9 % (flush) flush 5-20 mL ??? lidocaine (XYLOCAINE) 10 mg/mL (1 %) injection 3 mg ??? enoxaparin (LOVENOX) injection 40 mg ??? acyclovir (ZOVIRAX) 650 mg in sodium chloride 0.9% 263 mL ??? acetaminophen (TYLENOL) tablet 650 mg Lab Results Component Value Date NA 137 07/18/2018 K 3.9 07/18/2018 CL 105 07/18/2018 CO2 25 07/18/2018 BUN 12 07/18/2018 CREATININE 0.69 (L) 07/18/2018 GLUCOSE 99 07/18/2018 MAGNESIUM 0.92 04/23/2011 CALCIUM 8.3 (L) 07/18/2018 PHOS 2.4 (L) 04/23/2011 AST 25 07/18/2018 ALT 38 (H) 07/18/2018 ALKPHOS 86 07/18/2018 BILITOT 0.3 07/18/2018 BILIDIR 0.1 07/18/2018 CRP 0.3 08/27/2017 Assessment: Patient states she tolerated a banana and cereal this late morning. States it is the most she has been able to tolerate in the past month. She has noticed weight loss related to poor appetite. She declined snacks, but agreeable to CIB with ice cream. Encouraged high protein high kcal small frequent meals. Pt declined nutrition questions Patient meets criteria for severe protein calorie malnutrition based on weight loss >5% in 1 month and intake <50% in >5days. Candi Cedeno RD Beeper #: [phone] Wilber Castillo - 07/18/2018 6:47 AM EDT PGY-1 Progress Note Date: 07/18/18 Patient Information Name: Shirlene Kovacs : 1985 PCP: Edilia Gabriel APRN PCP Admit Date: 07/16/2018 Attending: Dr. Stock ID: Shirlene Kovacs is a 33 y.o. Female with PMH of Hodgkin's Lymphoma (dx 2002), Hypothyroidism, Asthma, Hepatitis C, PTSD, Bipolar disorder admitted with shingles. Active Problems: Leukocytosis Subjective/24h Events - Tylenol for pain overnight, still reporting some pain this am - Zofran for nausea - Started on suboxone initiation for withdrawal symptoms - Feeling better this am Objective Scheduled Meds: ??? [START ON 07/19/2018] Buprenorphine - daily order reminder 1 each Oral Daily ??? sodium chloride 0.9 % (flush) 5 mL Intravenous BID ??? enoxaparin 40 mg Subcutaneous Nightly ??? acyclovir 650 mg Intravenous Q8H Continuous Infusions: PRN Meds:.ondansetron OR ondansetron, [COMPLETED] buprenorphine-naloxone FOLLOWED BY buprenorphine-naloxone, sodium chloride 0.9 % (flush), lidocaine, acetaminophen Last value Range last 24 hrs Temperature Temp: 36.8 ??C (98.2 ??F) Temp: [36.4 ??C (97.5 ??F)-36.8 ??C (98.2 ??F)] Heart Rate Heart Rate: 60 Heart Rate: [60-65] Blood Pressure BP: 109/73 BP: (108-135)/(59-84) Respiratory Rate Resp: 20 Resp: [16-20] SpO2 SpO2: 100 % SpO2: [100 %] Physical Exam: Gen: In NAD, lying in bed, appears older than stated age HEENT: Oropharynx with mild thrush, moist mucous membranes CV: Normal rate, regular rhythm, No murmurs/rubs/gallops Pulm: Normal respiratory effort, speaking normally, no audible respiratory sounds, clear to auscultation anteriorly, normal expiratory phase, no rales/rhonchi/wheezes, Abd: Non-distended, normal bowel sounds in all 4 quadrants, soft, mildly diffusely tender, no masses, no guarding, no hepatosplenomegaly Ext: No pedal edema, 2+ radial/DP pulses Skin: Large, vesicular rash covering multiple dermatomes on the left sided back, open blisters Neuro: Alert and orientedx4, appropriate, CN 2-12 grossly intact, No focal deficits. Intake/Output Summary (Last 24 hours) at 07/18/2018 0647 Last data filed at 07/17/2018 1636 Gross per 24 hour Intake -- Output 100 ml Net -100 ml Patient Vitals for the past 168 hrs: Weight 07/17/18 1648 65.1 kg (143 lb 8 oz) Last 3 wbc, hgb, hct plt Recent Labs 07/18/18 0538 07/16/18 2305 WBC 8.6 17.2* HGB 14.9 16.5* HCT 44.8 48.7* PLATELET 218 263 Last 3 Lytes Recent Labs 07/18/18 0538 07/16/18 2305 NA 137 139 K 3.9 4.1 CL 105 104 CO2 25 23 BUN 12 14 CREATININE 0.69* 0.72 Last 3 LFTs Recent Labs 07/18/18 0538 07/17/18 0055 07/16/18 2305 AST 25 Not Perf Not Perf ALT 38* 63* 62* ALKPHOS 86 112* 106* BILITOT 0.3 0.7 0.8 BILIDIR 0.1 0.1 0.2 Last Ca, Mg, Phos Recent Labs 07/18/18 0538 CALCIUM 8.3* Last 3 Coags No results for input(s): PT, INR, PTT in the last 168 hours. BHCG <1 Urine tox Positive for suboxone, cannabinoid, and cocaine Imaging: CXR 07/16: IMPRESSION No acute cardiopulmonary process seen. Micro: UA 07/17: Mod blood, 3 WBC, 2 RBC, Occasional amorphous crystal Blood cultures 07/17: NGTD at one day Trichomonas: Pending Chlamydia: Pending Gonorrhea: Pending Assessment and Plan Shirlene Kovacs is a 33 y.o. Female with PMH of Hodgkin's Lymphoma (dx 2002), Hypothyroidism, Asthma, Hepatitis C, PTSD, Bipolar disorder admitted with shingles. Shirlene is improved today. Her shingles is improving, and we can consider switching her to oral antivirals later in the day. She is feeling better, and her WBC improved appropriately with the treatment.Concern for any sort of malignancy is thus very low, though we will continue to monitor. We will await the results of her STI testing, and treat appropriately. She will continue to need suboxone therapy, and we will work to titrate that appropriately. ?? Plan: #Extensive Cutaneous Herpes Zoster - Acyclovir 650mg three times daily, can transition to oral later in the day - Contact precautions - HIV negative - Acetaminophen PRN for pain - HIV negative ?? #Vaginal infections #History of trichomonas - s/p Ceftriaxone in the ED - s/p Azithromycin in the ED - s/p Fluconazole in the ED - Consider Metronidazole 2 g once pending urine sample - Chlamydia/gonorrhea urine tests pending - Trichomonas urine test pending - test pending ?? #Diarrhea - Can consider colonoscopy at future date for possible colitis/Crohn's - Fecal lactoferrin positive in the past ?? #Fevers #Leukocytosis - Blood cultures pending - UA not reflexed to culture - CXR unremarkable ?? #Hypothyroidism - Continue home levothyroxine 175 mcg - Check TSH ?? #Opioid use disorder - Suboxone 8-2 mg daily, can increase - BIT team consult - UDS positive for suboxone, cannabinoid, and cocaine - Continue home miralax ?? #Asthma - Consider nebulizer treatment if needed - Hold home albuterol ?? #Hepatitis C - Active hepatits C, ongoing IVDU - Consider checking Hep C PCR when sober and able to undergo treatment #Thrush - Nystatin swish and swallow - S/p fluconazole in the ED #Hx Hodgkin's Lymphoma - Can consider referral to heme/onc as outpatient for secondary malignancy screening and re-establishing care ?? #Routine DVT PPx: Lovenox Diet: Regular Dispo: pending course Code Status: Full Code. Wilber Castillo MD Internal Medicine Resident, PGY-1 Red Team [id number] 07/18/18 6:47 AM Associated attestation - Candi Stock MD - 07/18/2018 11:17 PM EDT Attending Attestation Please see Dr. Castillo's note for details of the patient history of presentation and data. I have discussed, reviewed and agree with the documented History, Physical findings, Assessment and Plan of care. 33 y/o with PSA, h/o HL s/p chemo/XRT, HCV, h/o shingles presenting with shingles T1/2-4 and leukocytosis which has improved, also treating thrush and trichomonas. COWS for suboxone dosing - prior dosing was 16mg daily. Appreciate BIT evaluation. I have examined the patient myself and personally reviewed all studies. In addition, I certify that I am a [facility] credentialed attending provider with admitting privileges and that the patient meets or has met medical necessity to require an inpatient IPI level of care meeting a minimum of two midnights or is on the [facility] inpatient only procedure list (status C) due to: extensive cutaneous shingles Sugar Davila RN - 07/18/2018 6:14 AM EDT OUTCOME EVALUATION NOTE: OUTCOME SUMMARY: Patient A&O x 4. PRN tylenol for 5/10 back & headache pain with good effect. Became increasing restless/agitated throughout the night. PO zofran for nausea, emesis x 2, IV zofran given x 1. COWS started, pt scored >12 ~ two 2-0.5mg suboxone given as ordered, pt has been sleeping since. Willcontinue to monitor and notify the team of any changes. PLAN MOVING FORWARD: Antiviral therapy COWS INDIVIDUALIZED FALL PREVENTION INTERVENTIONS: Patient-specific fall risk factors per assessment: [current deficits]: IV tubing/Masimo cord Generalized weakness Unfamiliar environment Assistance [level of assistance required for transfers and ambulation]: Ind Supervision [direct monitoring required during toileting and ADLs]: Ind Surveillance [continuous indirect monitoring]: Masimo, purposeful rounding, room near nurse's station, call light within reach Patient-specific fall prevention interventions for sensory deficits provided, if applicable: [X] No CPG GOAL OUTCOME EVALUATION: documented in this encounter H&P Notes Wilber Castillo - 07/17/2018 9:16 AM EDT Inpatient Medicine - Admission Note Patient Name: Shirlene Kovacs Patient Age: 33 y.o. 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 Female with PMH of Hodgkin's Lymphoma (dx 2002), Hypothyroidism, Asthma, Hepatitis C, PTSD, Bipolar disorder admitted with shingles. PCP: Edilia Gabriel APRN History of Present Illness (obtained from patient and eDH chart review): Patient reports that she has had shingles in the past, and that this feels similar to previous episodes. She usually comes to the hospital when this happens and it is treated and gets better. She firstnoticed that the shingles started this past Sunday, 07/12. She did not take any medications at home. The shingles is present on her back. She also reports some knee pain. She has had some numbness and tingling in her hands which she thinks might be related to shooting up. (She used heroin and bath saltslast week) She had been using heroin daily until recently, though she had been trying to quit and had been using suboxone, which she had been getting from her friend. She admits to using cocaine here and there,and has used recently. She is not sure if she has used LSD, as there is a chance her bath salts may be laced with this. She also reports diarrhea that has been going on for the last week or so. She has noticed blood in the diarrhea. She is going to the bathroom five times a day. She has also had vomiting that appears bilious without blood. She states that she was investigated for Crohn's in the past due to recurrent bloody, painful bowel movements, but she never went back to complete the workup. She has had sporadic crampy abdominal pain that comes and goes in various locations. She reports a history of seizure associated with certain medications. She has had them recently, allassociated with her drug use. She has had them in the past associated with medication use. She has also been fainting in the shower recently, which has been happening with increased frequency. She has also fallen down the stairs about a week ago, and has hit her head numerous times with these falls. She has been fatigued for the last several months. She states it doesn't matter how much she sleeps,she is always tired and falling asleep inappropriately. She has noticed that she seems to be gettingmore infections of late. She has also had a cough as well that is dry. She states that she currently has oral thrush. She hasbeen told that she has had a low WBC for almost a year now and that there is concern, but she has not gotten that checked out due to her drug use. She is supposed to be on levothyroxine, which she doesn't take. She was also given medication for trichomonas infection that she hasn't taken as well. She is having on and off thick white creamy vaginal discharge. She has had chlamydia in the past. She has not been tested recently for any STIs. She reports that she has been getting chronic UTIs. She has had about 8 new sexual partners in the last three months. She reports that she has had fevers and chills sporadically over the last several weeks. She also reports that she will wake up at night soaked in sweat. She has noticed 15 lbs of weight loss over the last three weeks. She repeatedly told her friend that she wanted to to the pain associated with her shingles. She denies any active suicidal ideation, though she does have a history of prior suicide attempts. Review of Systems (positives bolded) Constitutional: fatigue, fevers, chills, night sweats, shakes, unexpected weight change. HEENT: visual changes, hearing changes, speech changes, dysphagia, oral thrush Respiratory: cough, wheeze, shortness of breath Cardiovascular: chest pain, palpitations, paroxysmal nocturnal dyspnea, dyspnea on exertion, orthopnea, leg swelling Gastrointestinal: bloating, abdominal pain, nausea, vomiting, diarrhea, constipation, hematochezia, melena Genitourinary: dysuria, urgency, frequency, hematuria, vaginal discharge Skin: rash. Muskuloskeletal: arthralgia, myalgia, joint swelling Neurological: headaches, dizziness, lightheadedness, tingling, numbness, extremity weakness, facial weakness, balance problems, speech pattern changes Hematological: adenopathy, easy bruising Past Medical and Surgical History: Past Medical History: Diagnosis Date ??? Abnormal Pap smear of cervix ??? Anxiety ??? Bipolar affective auditory hallucinations ??? Depression [...] BX performed by Ugo Reed MD at [facility] ??? PRO COLONOSCOPY, DIAGNOSTIC 08/20/2013 COLONOSCOPY, DIAGNOSTIC performed by Ugo Reed MD at [facility] ??? PRO COLONOSCOPY, REMV LESN, SNARE 08/20/2013 COLONOSCOPY, POLYPECTOMY, REMOVAL LESION BY SNARE performed by Ugo Reed MD at [facility] ??? PRO ENDOSCOPIC US EXAM, ESOPH 08/20/2013 UPPER EUS- ENDOSCOPIC ULTRASOUND performed by Ugo Reed MD at [facility] ??? PRO UPPER GI ENDOSCOPY, DIAGNOSTIC 08/20/2013 EGD, UPPER GI ENDOSCOPY performed by Ugo Reed MD at [facility] ??? SKIN BIOPSY HEAD/NECK ??? TUNNELED VENOUS CATHETER PLACEMENT Prior To Admission Medications: Medications reviewed in eDH. Allergies: Allergies Allergen Reactions ??? Chantix [Varenicline] Seizure ??? Duloxetine Hcl ??? Laxative X-Lax ??? Phenolphthalein Other reaction(s): SEIZURES ??? Varenicline Tartrate Other reaction(s): seizure Nausea/Vomiting Family History: Family History Problem Relation Age of Onset ??? Cancer Other Hodgkin lymphoma in maternal cousin ??? 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 Physical Exam: Last Set of Vitals and range of vitals over past 24 hours: Last value Range last 24 hrs Temperature Temp: 36.7 ??C (98.1 ??F) Temp: [36.7 ??C (98.1 ??F)-37.9 ??C (100.2 ??F)] Heart Rate Heart Rate: 53 Heart Rate: [53] Blood Pressure BP: (!) 150/98 BP: (121-150)/(74-98) Respiratory Rate Resp: 18 Resp: [18] SpO2 SpO2: 100 % SpO2: [97 %-100 %] Gen: In pain, lying in bed, appears older than stated age HEENT: Oropharynx with thrush, moist mucous membranes CV: Normal rate, regular rhythm, No murmurs/rubs/gallops Pulm: Normal respiratory effort, speaking normally, no audible respiratory sounds, clear to auscultation anteriorly, normal expiratory phase, no rales/rhonchi/wheezes, Abd: Non-distended, normal bowel sounds in all 4 quadrants, soft, diffusely tender, no masses, no guarding, no hepatosplenomegaly Ext: No pedal edema, 2+ radial/DP pulses, full ROM at the knees without any erythema or effusions Skin: Large, vesicular rash covering multiple dermatomes on the left sided back. Neuro: Alert and orientedx4, appropriate, CN 2-12 grossly intact, No focal deficits. Laboratory (Last 24 Hours): Recent Results (from the past 24 hour(s)) Basic Metabolic Panel (non-fasting) Result Value Ref Range Glucose Lvl 98 65 - 199 mg/dL BUN 14 8 - 18 mg/dL Creatinine 0.72 0.70 - 1.20 mg/dL Sodium 139 135 - 145 mmol/L Potassium 4.1 3.5 - 5.0 mmol/L Chloride 104 98 - 107 mmol/L CO2 23 22 - 31 mmol/L Anion Gap 12 5 - 15 mmol/L Calcium 9.6 8.5 - 10.5 mg/dL eGFR 111 >=60 mL/min/1.73 m?? eGFR 128 >=60 mL/min/1.73 m?? Hepatic Function Panel Result Value Ref Range Total Protein 7.4 6.1 - 8.0 gm/dL Albumin 4.1 3.2 - 5.2 gm/dL AST Not Perf 0 - 30 ALT 62 (H) 0 - 30 unit/L Alk Phos 106 (H) 40 - 104 unit/L Total Bilirubin 0.8 0.2 - 1.3 mg/dL Bili, Direct 0.2 0.0 - 0.3 mg/dL Lipase Result Value Ref Range Lipase 23 0 - 60 unit/L Ethanol Level Result Value Ref Range Ethanol Lvl <100 <=99 mg/L Acetaminophen level Result Value Ref Range Acetamin Lvl <5 (L) 10 - 30 mg/L Salicylate Result Value Ref Range Salicylate Lvl <20 mg/L Hemogram Result Value Ref Range WBC 17.2 (H) 4.0 - 9.5 x10(3)/mcL RBC 5.41 (H) 4.00 - 5.21 x10(6)/mcL Hemoglobin 16.5 (H) 11.7 - 15.5 gm/dL Hematocrit 48.7 (H) 35.7 - 45.8 % MCV 90.0 82.6 - 94.4 fL MCH 30.5 27.1 - 32.0 pg MCHC 33.9 31.7 - 35.0 gm/dL Platelets 263 145 - 357 x10(3)/mcL RDWSD 40.5 37.0 - 46.0 fL RDWCV 12.3 11.5 - 14.1 % MPV 10.1 7.6 - 12.9 fL nRBC % Auto 0.0 % nRBC Abs Auto 0.000 0.000 - 0.000 x10(3)/mcL Differential, Automated Result Value Ref Range Neutrophils % 72.2 % Neutr Abs (ANC) 12.41 (H) 1.70 - 6.10 x10(3)/mcL Lymphocytes % 21.2 % Lymphocytes Abs 3.6 (H) 0.9 - 3.2 x10(3)/mcL Monocytes % 4.5 % Monocyte Abs 0.8 0.3 - 0.9 x10(3)/mcL Eosinophils % 0.1 % Eosinophils Abs 0.0 0.0 - 0.4 x10(3)/mcL Basophils % 0.8 % Basophils Abs 0.1 0.0 - 0.1 x10(3)/mcL Immature Gran % 1.20 % Ayah Gran Abs 0.20 (H) 0.00 - 0.04 x10(3)/mcL Blue Tube HOLD Result Value Ref Range Blue Hold Sample in lab. HIV Screen, 4th Generation (Leb/CGP) Result Value Ref Range HIV-1/2 Ab and Ag Negative Negative Hepatic Function Panel Result Value Ref Range Total Protein 7.1 6.1 - 8.0 gm/dL Albumin 3.9 3.2 - 5.2 gm/dL AST Not Perf 0 - 30 ALT 63 (H) 0 - 30 unit/L Alk Phos 112 (H) 40 - 104 unit/L Total Bilirubin 0.7 0.2 - 1.3 mg/dL Bili, Direct 0.1 0.0 - 0.3 mg/dL Studies: CXR 07/16/2018 IMPRESSION No acute cardiopulmonary process seen. Assessment: Shirlene Kovacs is a 33 y.o. Female with PMH of Hodgkin's Lymphoma (dx 2002), Hypothyroidism, Asthma, Hepatitis C, PTSD, Bipolar disorder admitted with shingles. Shirlene's presentation is concerning for numerous issues. Her shingles is obviously a problem that iscausing her significant pain, which we will address. The question of why she has recurrent shingles is intriguing. Her history of Hodgkin's lymphoma raises concern for possible hematologic malignancy, as AML can commonly occur following treatment of Hodgkin's. Her review of systems is grossly positive, and she admits that she hasn't taken care of herself, but it is notably also positive for B symptoms suggestive of possible leukemia or lymphoma. She reports that her WBC has been low several times over the past year, although we were unable to find evidence of this in the chart. However, before looking for the underlying cause of her possible hematologic abnormalities, it is going to be important to treat her underlying infections and have managed withdrawal symptoms with suboxone. She may also require further workup in the future for her hematochezia and abdominal pain, again once her more acuteissues are properly treated. Plan: #Admit to Medicine - Red team #Extensive Cutaneous Herpes Zoster - Acyclovir 650mg three times daily IV pending test - Airborne and contact precautions - HIV negative #Vaginal infections #History of trichomonas - s/p Ceftriaxone in the ED - s/p Azithromycin in the ED - s/p Fluconazole in the ED - Consider Metronidazole 2 g once pending urine sample - Chlamydia/gonorrhea urine tests pending - Trichomonas urine test pending - test pending #Diarrhea - Can consider colonoscopy at future date for possible colitis/Crohn's - Fecal lactoferrin positive in the past #Fevers #Leukocytosis - Blood cultures pending - UA pending - CXR unremarkable - Can consider further workup once withdrawal complete/infection treated #Hypothyroidism - Continue home levothyroxine 175 mcg - Check TSH #Opioid use disorder - Suboxone 8-2 mg daily - BIT team consult - Urine drug screen pending - Continue home miralax #Asthma - Consider nebulizer treatment if needed #Hepatitis C - Active hepatits C, ongoing IVDU - Consider checking Hep C PCR when sober and able to undergo treatment #Routine DVT PPx: Lovenox Diet: Regular Dispo: pending course Code Status: Full Code. Wilber Castillo MD Internal Medicine PGY-1 Red Team pager [phone] 07/17/2018 Associated attestation - Candi Stock MD - 07/17/2018 11:43 PM EDT Attending Staff Admission Documentation I have examined the patient myself on 07/17/2018 and reviewed all labs and studies personally. Please see Dr. Castillo's documentation for details of the patient history of presentation and data. I have discussed, reviewed and agree with the documented history with ROS, physical findings, labs/studies, assessment and plan of care. 33 y/o with PSA, h/o HL s/p chemo/XRT, HCV, h/o shingles presenting with shingles T1/2-4, leukocytosis, bloody diarrhea (intermittent - last saw GI '18 and did not f/u with colo). Treating shingles, completing infectious w/u with leukocytosis. Has been on suboxone in past (states for 5 months) and would like to reengage. Will consult BIT for support. documented in this encounter ED Notes Emily Alva RN - 07/17/2018 1:42 PM EDT Attempted to give report, RN assigned to patient is at lunch and charge nurse not available to receive report on patient. Patient given lunch, ate 100% of her meal. States minimal nausea at this time. Alert and oriented. Dinesh Carreon MD - 07/17/2018 8:16 AM EDT Patient Name: Shirlene Kovacs Patient Age: 33 y.o. Birthdate: 1985 Admit date: 07/16/2018 Attending Physician: Dinesh Carreon MD I have taken over care of the patient. She has a significant leukocytosis borderline fevers and is in significant pain. She has persistent vomiting is not tolerating fluids by mouth and appears to be dehydrated clinically I do not feel that she is appropriate or safe for discharge needs further work-up as to the etiology of her symptoms as an inpatient. Patient accepted to the hospitalist. Dinesh Carreon MD 07/17/18 0817 Aniyah Conteh RN - 07/17/2018 5:45 AM EDT Pt rang and stated she had to pee really bad. Informed patient we needed a commode and then she proceeded to void in the pink bucket on the floor. Pt appears to be restless after being awoken by psychiatry. Aniyah Conteh RN - 07/17/2018 5:28 AM EDT Psychiatry at bedside Sulema Drake RN - 07/17/2018 1:03 AM EDT Friend Jes cell number: [phone], home number: [phone]. Permission from patient to call with updates Héctor Foster MD - 07/16/2018 11:35 PM EDT Brief Attending Note I cared for the patient with the resident physician. Please see Dr. Mcrae's note, associated with the encounter, for more details. HPI: Shirlene Kovacs is a 33 y.o. who presents to the ED with extensive medical, substance, psychiatric history, brought in by her friend with multiple complaints including oral thrush, vaginal pain, likelyleft posterior thoracic shingles, vomiting, withdrawal from Suboxone. Last IV drug use was last week. patient reportedly made suicidal comments last night. She has been using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 Wheezing. Use with spacer 1 Inhaler 1 ??? lansoprazole (PREVACID) 15 mg capsule Take 15 mg by mouth as needed. Allergies: Allergies Allergen Reactions ??? Chantix [Varenicline] [...] Z91.5 ??? Bipolar affective ?schizophrenia F31.9 ??? Supervision of high risk in second trimester O09.92 ??? Post traumatic stress disorder (PTSD) F43.10 ??? arrhythmia affecting , antepartum O36.8390 ??? Trigger finger M65.30 ??? History of recurrent shingles Z86.19 ??? Rubella non-immune status, antepartum O99.89, Z28.3 Past Medical/Surgical History: Past Medical History: Diagnosis Date ??? Abnormal Pap smear of cervix ??? Anxiety ??? Bipolar affective auditory hallucinations ??? Depression [...] BX performed by Ugo Reed MD at [facility] ??? PRO COLONOSCOPY, DIAGNOSTIC 08/20/2013 COLONOSCOPY, DIAGNOSTIC performed by Ugo Reed MD at [facility] ??? PRO COLONOSCOPY, REMV LESN, SNARE 08/20/2013 COLONOSCOPY, POLYPECTOMY, REMOVAL LESION BY SNARE performed by Ugo Reed MD at [facility] ??? PRO ENDOSCOPIC US EXAM, ESOPH 08/20/2013 UPPER EUS- ENDOSCOPIC ULTRASOUND performed by Ugo Reed MD at [facility] ??? PRO UPPER GI ENDOSCOPY, DIAGNOSTIC 08/20/2013 EGD, UPPER GI ENDOSCOPY performed by Ugo Reed MD at [facility] ??? SKIN BIOPSY HEAD/NECK ??? TUNNELED VENOUS CATHETER PLACEMENT Family Medical/Psychiatric History: (mental illness, history of suicide, substance etc...) Aunt has depression Social History: (who lives at home, childhood, highest level of education, ) Lives by herself Vitals (24hr Range): Patient Vitals for the past 24 hrs: Temp Pulse Resp BP SpO2 O2 Device 07/16/18 2221 37.9 ??C (100.2 ??F) 53 18 143/89 97 % RA 07/16/18 2315 -- -- -- 131/81 98 % -- 07/16/18 2330 -- -- -- 140/86 97 % -- 07/16/18 2345 -- -- -- 126/87 99 % -- 07/17/18 0000 -- -- -- (!) 142/91 99 % -- 07/17/18 0131 -- -- -- 121/74 100 % RA 07/17/18 0550 36.9 ??C (98.4 ??F) -- -- (!) 150/98 100 % RA Musculoskeletal System: no abnormal movements Mental Status Exam: ?? Appearance: young woman, appearing stated age, no acute distress, lying in bed, somnolent ?? Behavior: Cooperative; limited eye contact, irritable towards end of interview ?? Speech: normal rate and soft volume, normal response time ?? Language: hungarian, fluent, no profanity ?? Mood: not too good ?? Affect: Constricted ?? Thought Process: linear, logical, no thought blocking, drowsy so needed to repeat questions several times ?? Associations: intact ?? Thought Content: Denies suicidal or homicidal thoughts, denies paranoid delusions or ideas or reference ?? Perception: Denies auditory or visual hallucinations ?? Orientation: person, place, year, month (date was off by about 5 days) and situation ?? Attention/Concentration: limited, appeared drowsy ?? Cognition: appropriate ?? Memory: recent memory intact ?? Fund of Knowledge: appropriate ?? Insight: fair/limited, could not describe precipitating events ?? Judgment: fair/limited, engaged in interview, says she is willing to engage in outpatient care. Wish to be : Have you wished you were or wished you could go to sleep and not wake up?: No(but friend states she has been stating she wants to ) (07/16/182222) Suicidal Thoughts: Have you had any actual thoughts of killing yourself?: No (07/16/182222) Suicide Behavior Question: Have you ever done anything, started to do anything, or prepared to do anything to end your life?: No (07/16/182222) Labs: Psychiatry Labs (Last 24 hours): Preg: No results found for: HCGQUAL, HCGQUANT Heme: Lab Results Component Value Date WBC 17.2 (H) 07/16/2018 HGB 16.5 (H) 07/16/2018 HCT 48.7 (H) 07/16/2018 PLATELET 263 07/16/2018 MCV 90.0 07/16/2018 NEUTROABS 12.41 (H) 07/16/2018 No results found for: HA1C, SEDRATE Chem: Lab Results Component Value Date NA 139 07/16/2018 K 4.1 07/16/2018 CL 104 07/16/2018 CO2 23 07/16/2018 BUN 14 07/16/2018 GLUCOSE 98 07/16/2018 Lab Results Component Value Date CALCIUM 9.6 07/16/2018 LFTs: Lab Results Component Value Date ALT 63 (H) 07/17/2018 AST Not Perf 07/17/2018 ALKPHOS 112 (H) 07/17/2018 BILITOT 0.7 07/17/2018 Coags: No results found for: PTT, PT, INR Thyroid: No results found for: TSH, H3VLMFC, TT4 Lipids and HgbA1C: No results found for: CHLPL, HDL, CHOLHDL, LDLCHOL, LDLDIRECT, TRIG No results found for: HA1C Vit Lvls: No results found for: [id number], SFOLATE UA: No results found for: GLUCOSEU, KETONESUA, PROTEINUADIP, BLOODUADIP, LEUKOESTERUA, NITRATEUA, WBCUA (May not represent most recent UA results. See eD-H labs for more details.) Tox: Lab Results Component Value Date ETHANOL <100 07/16/2018 ACTMNPHEN <5 (L) 07/16/2018 SALICYLATE <20 07/16/2018 No results found for: UDAUSCREEN Rx Lvls: No results found for: LITHIUM, CARBAMAZEPIN, VALPROATE, LAMOTRIGINE, CLOZAPINE Assessment: (including Suicide Risk Assessment) 33yoF past psych hx of anxiety, depression, ptsd, polysubstance use [facility] and on intake her was noted to have passive SI thoughts 2-3 days ago. Psychiatry was consulted for safety evaluation Low acute safety concern, passive, vague SI statements mentioned 2-3 days earlier in the context of acute pain from rash, adamantly denies current Si thoughts, willing to consider outpatient follow-up,denies access to firearms, denies recent suicide attempts, no thoughts of harming others, denies AVH, does not meet IEA criteria. No psychiatric contraindication for discharge, though connecting her with potential substance use rehab options would be optimal, housing situation also appear tenuous as her friend is not sure where she is currently staying. Current Suicide Assessment: Given enduring factors as noted above, RISK STATUS is increased comparedto general population due to history of mental illness and fewer social supports. RISK STATE is elevated compared to patient's baseline due to recent stressors precipitating psychiatric assessment. Andrash outbreak. Patient can benefit from outpatient mental health follow-up Diagnosis: adjustment disorder Plan: # Passive suicidal ideation -Does not meet IEA criteria -No indication for psychiatric admission -Outpatient community mental health information placed in DC instructions for psychiatrists and therapist -No psychiatric contraindication for discharge once medically cleared -Recommend connecting her with outpatient substance rehab programs. Signed By: Rj Ji MD 07/17/2018 Associated attestation - Jacqueline Rebolledo MD - 07/18/2018 6:16 AM EDT I did not see this patient. I participated in the assessment and treatment plan with the resident. Iagree with the plan as it is written. Jacqueline Rebolledo MD Pager: [phone] documented in this encounter Plan of Treatment Not on filedocumented as of this encounter Procedures Procedure Name Priority Date/Time Associated Comments Diagnosis TSH CASCADE Routine 07/18/2018 10:06 Results for this AM EDT procedure are i n the results section. T4, FREE Routine 07/18/2018 10:06 Results for this AM EDT procedure are i n the results section. HEMOGRAM Routine 07/18/2018 5:38 AM Results f or this EDT procedure are i n the results section. DIFFERENTIAL, Routine 07/18/2018 5:38 AM Results for this AUTOMATED EDT procedure are i n the results section. CBC (WITH DIFF) Routine 07/18/2018 5:38 AM EDT HEPATIC FUNCTION PANEL Routine 07/18/2018 5:38 AM Results for this EDT procedure are i n the results section. BASIC METABOLIC PANEL Routine 07/18/2018 5:38 AM Results for this (NON-FASTING) EDT procedure are in the results section. TRICHOMONAS GENE AMP STAT 07/17/2018 4:32 PM R esults for this ([facility]/CGP/APD/NL) EDT procedure are in the results section. CHLYMYDIA GENE AMP STAT 07/17/2018 4:32 PM Res ults for this ([facility]/CGP/APD/NL) EDT procedure are in the results section. GC GENE AMP STAT 07/17/2018 4:32 PM Results f or this ([facility]/CGP/APD/NL) EDT procedure are in the results section. RAPID DRUG SCREEN, STAT 07/17/2018 4:31 PM Res ults for this URINE (IMELDA REQUEST) EDT procedur e are in the results section. RAPID DRUG SCREEN W/O STAT 07/17/2018 4:31 PM Results for this CONFIRMATION, URINE EDT procedur e are in the results section. URINALYSIS MICROSCOPIC STAT 07/17/2018 4:30 PM Results for this EXAM EDT procedure are i n the results section. URINALYSIS WITH REFLEX STAT 07/17/2018 4:30 PM Results for this CULTURE EDT procedure are i n the results section. BETA HCG, QUANTITATIVE STAT 07/17/2018 12:55 R esults for this AM EDT procedure are i n the results section. HEPATIC FUNCTION PANEL STAT 07/17/2018 12:55 R esults for this AM EDT procedure are i n the results section. BLOOD CULTURE STAT 07/17/2018 12:15 Results fo r this AM EDT procedure are i n the results section. BLOOD CULTURE STAT 07/17/2018 12:05 Results fo r this AM EDT procedure are i n the results section. XR CHEST ONE VIEW STAT 07/16/2018 11:59 Result s for this PM EDT procedure are i n the results section. EKG 12-LEAD STAT 07/16/2018 11:06 Results for this PM EDT procedure are i n the results section. HEMOGRAM STAT 07/16/2018 11:05 Results for this PM EDT procedure are i n the results section. DIFFERENTIAL, STAT 07/16/2018 11:05 Results fo r this AUTOMATED PM EDT procedure are i n the results section. BLUE TUBE HOLD STAT 07/16/2018 11:05 Results f or this PM EDT procedure are i n the results section. HIV SCREEN, 4TH STAT 07/16/2018 11:05 Results for this GENERATION PM EDT procedure are i n ([facility]/CGP/APD/[facility]) the resul ts section. CBC (WITH DIFF) STAT 07/16/2018 11:05 PM EDT LIPASE STAT 07/16/2018 11:05 Results for this PM EDT procedure are i n the results section. ETHANOL LEVEL STAT 07/16/2018 11:05 Results fo r this PM EDT procedure are i n the results section. ACETAMINOPHEN LEVEL STAT 07/16/2018 11:05 Resu lts for this PM EDT procedure are i n the results section. SALICYLATE STAT 07/16/2018 11:05 Results for this PM EDT procedure are i n the results section. HEPATIC FUNCTION PANEL STAT 07/16/2018 11:05 R esults for this PM EDT procedure are i n the results section. BASIC METABOLIC PANEL STAT 07/16/2018 11:05 Re sults for this (NON-FASTING) PM EDT procedure are in the results section. documented in this encounter Results (ABNORMAL) T4, free (07/18/2018 10:06 AM EDT) athologist Signature Free T4 0.86 (L) 0.93 - 1.70 [facility] ng/dL [facility] Specimen Anatomical Collection Method Collection Time Receive d Time (Source) Location / / Volume Laterality Blood specimen 07/18/2018 10:06 9 (specimen) AM EDT 10:17 AM EDT Resulting Agency Comment Spec In Lab Wilber Castillo MD CHEMISTRY ORDERABLES Performing Organization Address City/State/ZIP Code Phon e Number [address] (ABNORMAL) [facility] [place] (07/18/2018 10:06 AM EDT) athologist [facility] TSH 11.90 (H) 0.27 - [facility] m[facility]mL [facility]ORY Specimen Anatomical Collection Method Collection Time Receive d Time (Source) Location / / Volume Laterality Blood specimen 07/18/2018 10:06 9 (specimen) AM EDT 10:17 AM EDT Resulting Agency Comment Spec In Lab Candi Stock MD CHEMISTRY ORDERABLES Performing Organization Address City/State/ZIP [place] [address] (ABNORMAL) Hepatic Function Panel (07/18/2018 5:38 AM EDT) athologist Signature Total Protein 6.4 6.1 - 8.0 [place] gm/dL [facility] Albumin 3.1 (L) 3.2 - 5.2 [place] gm/dL [facility] AST 25 0 - 30 [place] unit/L [facility] ALT 38 (H) 0 - 30 [place] [facility] unit/L [facility] Alk Phos 86 40 - 104 [facility] unit/L [facility] Total 0.3 0.2 - 1.3 [facility] Bilirubin mg/dL [facility] Bili, Direct 0.1 0.0 - 0.3 [facility] mg/dL [facility] Specimen Anatomical Collection Method Collection Time Receive d Time (Source) Location / / Volume Laterality Blood specimen 07/18/2018 5:38 AM 019 5:46 (specimen) EDT AM EDT Resulting Agency Comment Spec In Lab Candi Sotck MD CHEMISTRY ORDERABLES Performing Organization Address City/State/[place] [address] (ABNORMAL) Differential, Automated (07/18/2018 5:38 AM EDT) [facility] Method Time Signature Neutrophils % 51.8 % [facility] Neutr Abs (ANC) 4.48 1.70 - [facility] 6.10 [facility] x10(3)/[facility] LABORATORY Lymphocytes % 34.0 % [facility] Lymphocytes Abs 2.9 0.9 - 3.2 [facility] x10(3)/[facility] LABORATORY Monocytes % 10.2 % [facility] Monocyte Abs 0.9 0.3 - 0.9 [facility] x10(3)/[facility] LABORATORY Eosinophils % 1.0 % [facility] Eosinophils Abs 0.1 0.0 - 0.4 [facility] x10(3)/[facility] LABORATORY Basophils % 1.7 % [facility] Basophils Abs 0.2 (H) 0.0 - 0.1 [facility] x10(3)/[facility] LABORATORY Immature Gran % 1.30 % [facility] Comment: Immature granulocytes(IG's)percentage an d absolute count will include metamyelocytes, myelocytes, and promyelo cytes. Blood smears from CBCs yielding IG's will be scanned manually for concor dance. If this scan disagrees with the automated IG or if promyelocytes are not ed, a manual differential will be performed. Ayah Gran Abs 0.11 (H) 0.00 - 0.04 x10(3)/[facility] LABORATORY Specimen Anatomical Collection Method Collection Time Receive d Time (Source) Location / / Volume Laterality Blood specimen 07/18/2018 5:38 AM 019 5:46 (specimen) EDT AM EDT Resulting Agency Comment Spec In Lab Sanjiv Orellana MD HEMATOLOGY ORDERABLES Performing Organization Address City/State/ZIP [place] [address] Hemogram (07/18/2018 5:38 AM EDT) athologist Signature WBC 8.6 4.0 - 9.5 [facility] LABORATORY RBC 4.77 4.00 - [facility] 5.21 [facility] x10(6)/[facility] LABORATORY Hemoglobin 14.9 11.7 - [facility] 15[facility] gm/dL [facility] Hematocrit 44.8 35.7 [facility] % [facility] MCV 93.9 82.6 [facility]4 [facility] LABORATORY MCH 31.2 27.1 - [facility] 32.0 pg [facility] LAB[facility]ATORY MCHC 33.3 31.7 - [facility] gm/dL [facility] Platelets 218 145 - 357 [facility] x10(3)/[facility] LABORATORY RDWSD 41.9 37.0 - [facility] 46[facility]0 [facility] LABORATORY RDWCV 12.1 11.5 - [facility] 14.1 % [facility] LABORATORY MPV 9.9 7.6 - 12.9 [facility] LABORATORY nRBC % Auto 0.0 % [facility] nRBC Abs Auto 0.000 0.000 - [facility] 0.000 [facility] x10(3)/[facility] LABORATORY Specimen Anatomical Collection Method Collection Time Receive d Time (Source) Location / / Volume Laterality Blood specimen 07/18/2018 5:38 AM 019 5:46 (specimen) EDT AM EDT Resulting Agency Comment Spec In Lab Sanjiv Orellana MD HEMATOLOGY ORDERABLES Performing Organization Address City/[facility]/ZIP [place] [address] (ABNORMAL) Basic Metabolic Panel (non-fasting) (07/18/2018 5:38 AM EDT) athologist Signature Glucose Lvl 99 65 - 199 [facility] mg/dL [facility] Comment: Diabetes: >=200 mg/dL plus symp toms BUN 12 8 - 18 mg/dL [facility] Creatinine 0.69 (L) 0.70 - 1.20 mg/dL [facility] LABORATORY Sodium 137 135 - 145 mmol/L [facility] Potassium 3.9 3.5 - 5.0 mmol/L [facility] Comment: Please note: ??Patients with WBC >100,00 0 may have falsely elevated Potassium levels. ??For accurate Potassium quantif ication in these patients send serum separator tube (gold top) for subsequent determinations. ??Contact the Clinical Chemistry Laboratory if there are any qu estions. Chloride 105 98 - 107 mmol/L [facility] CO2 25 22 - 31 mmol/L [facility] Anion Gap 7 5 - 15 mmol/L [facility] LABORATORY Calcium 8.3 (L) 8.5 - 10.5 mg/dL [facility] Comment: result rechecked-ank Estimated GFR 115 >=60 mL/min/1.73 m?? [facility] Comment: The eGFR was calculated using the CKD-EP I equation. As with all creatinine based estimates of kidney function, eGFR values calculated with the CKD-EPI equation are not accurate in patients wi th acute kidney failure, extremes of body mass or the acutely ill. [email or web address] eGFR 134 >=60 mL/min/1.73 m?? [facility] Comment: The eGFR was calculated using the CKD-EP I equation. As with all creatinine based estimates of kidney function, eGFR values calculated with the CKD-EPI equation are not accurate in patients wi th acute kidney failure, extremes of body mass or the acutely ill. [email or web address] Specimen Anatomical Collection Method Collection Time Receive d Time (Source) Location / / Volume Laterality Blood specimen 07/18/2018 5:38 AM 019 5:46 (specimen) EDT AM EDT Resulting Agency Comment Spec In Lab Dinesh Carreon MD CHEMISTRY ORDERABLES Performing Organization Address City/State/ZIP Code Phon e Number [address] (ABNORMAL) Trichomonas Gene Amp (Leb/CGP/APD) Urine (07/17/2018 4:32 PM EDT) Patholo gist Method Time Signature Trich Gene Positive (A) Negative [facility] LABORATORY Comment: The only FDA approved specimen types for this assay are cervix and vaginal. Trich Source Urine [facility] LABORATORY Specimen Anatomical Collection Method Collection Time Receive d Time (Source) Location / / Volume Laterality Urine specimen 07/17/2018 4:32 PM 019 5:39 (specimen) EDT PM EDT Resulting Agency Comment Spec In Lab Dinesh Carreon MD MICROBIOLOGY - GENERAL ORDER MICHEL Performing Organization Address [facility]/ZIP Code Phon e Number [address] Chlamydia Gene Amp (Leb/CGP/APD) Urine (07/17/2018 4:32 PM EDT) Analysis Performed At Patho logist Time Signature Chlamydia Gene Negative Negative [facility] LABORATORY Comment: The only FDA approved specimen types for this assay are cervical, vaginal, urethral and urine. Non-FDA approved rika rces are eye, throat and rectal and have been internally validated. Chlamydia Source Urine [facility] LAB[facility] Specimen Anatomical Collection Method Collection Time Receive d Time (Source) Location / / Volume Laterality Urine specimen 07/17/2018 4:32 PM 019 5:39 (specimen) EDT PM EDT Resulting Agency Comment Spec In Lab Dinesh Carreon MD MICROBIOLOGY - GENERAL ORDER MICHEL Performing Organization Address City/[facility]/ZIP Code Phon e Number [address] GC Gene Amp (Leb/CGP/APD) Urine (07/17/2018 4:32 PM EDT) P athologist Signature GC Gene Amp Negative Negative [facility] Comment: The only FDA approved specimen types for this assay are cervical, vaginal, urethral and urine. Non-FDA approved rika rces are eye, throat and rectal and have been internally validated. GC Source Urine [facility] LABORATORY Specimen Anatomical Collection Method Collection Time Receive d Time (Source) Location / / Volume Laterality Urine specimen 07/17/2018 4:32 PM 019 5:39 (specimen) EDT PM EDT Resulting Agency Comment Spec In Lab Dinesh Carreon MD MICROBIOLOGY - GENERAL ORDER MICHEL Performing Organization Address City/State/[place] [address] (ABNORMAL) Rapid Drug Screen w/o Confirmation, Urine (07/17/2018 4:31 PM EDT) [facility] Method Time Signature U Barbiturates None None [facility] Screen Detected Detected [facility] Comment: The barbiturate screen detects barbitura [...] U Benzodiazepines Screen None Detected None Detected [facility] Comment: The benzodiazepines screen [...] Not for Medico-Legal Purposes. U Cocaine Screen Presumptive Pos (A) None Detected [facility] Comment: The cocaine metabolites [...] U Methadone Metabolites None Detected None Detected [facility] LABORATORY Comment: The methadone metabolite screen detects EDDP (major methadone metabolite) at concentrations >100 ng/mL. A ? Presumptive Positive? result indicates that the screening result was positive but has not yet been confirmed by a highly-specific method. As with any screen, occasional false positive re sults from cross-reacting substances may occur. Not for Medico-Legal Purposes. U Opiate Screen None Detected None Detected [facility] LABORATORY Comment: The opiates screen detects opiates at co ncentrations >300 ng/mL. Please note that oxycodone, oxymorphone, fentanyl, tramadol, and other synthetic opioids are not detected by doctors hospital opiate screen. A ? Presumptive Positive? result indicates that the screening result was positive but has not yet been confirmed by a highly-specific method. As with any screen, occasional false positive re sults from cross-reacting substances may occur. Not for Medico-Legal Purposes. U Cannabinoid Screen Presumptive Pos (A) None Detected [facility] Comment: The marijuana metabolites screen detects the THC metabolite (08-ofr-1-carboxy-delta 9-THC) at concen trations >20 ng/mL. A ? Presumptive Positive? result indicates that the screening result was positive but has not yet been confirmed by a highly-specific method. As with any screen, occasional false positive re sults from cross-reacting substances may occur. Not for Medico-Legal Purposes. U Oxycodone Screen None Detected None Detected [facility] Comment: The oxycodone screen [...] Buprenorphine Screen Presumptive Pos (A) None Detected [facility] Comment: The buprenorphine screen detects bupreno rphine at concentrations >5 ng/mL. A ? Presumptive Positive? result indicates that the screening result was positive but has not yet been confirmed by a highly-specific method. As with any screen, occasional false positive re sults from cross-reacting substances may occur. Not for Medico-Legal Purposes. U Fentanyl Screen None Detected None Detected Pippa [facility] Comment: The fentanyl screen detects fentanyl at concentrations >2 ng/mL. A ? Presumptive Positive? result indicates that the screening result was positive but has not yet been confirmed by a highly-specific method. As with any screen, occasional false positive re sults from cross-reacting substances may occur. Not for Medico-Legal Purposes. U Tricyclics Screen None Detected None Detected KELLI MARQUIS [facility] Comment: The tricyclics screen detects tricyclic [...] U Ethanol Screen None Detected None Detected [facility] Comment: This urine ethanol assay detect s ethanol at concentrations >/= 100 mg/L. U Amphetamines Screen None Detected None Detected [facility] Comment: The amphetamine screen [...] Screen None Detected None Detected Pippa [facility] Comment: No adulteration or dilution of this urin e sample was detected. All urine samples submitted for urine drugs of abu se analysis are tested for creatinine concentration, pH, and for the presence of oxidants, nitrites, and chromate. Specimen Anatomical Collection Method Collection Time Receive d Time (Source) Location / / Volume Laterality Urine specimen 07/17/2018 4:31 PM 019 4:52 (specimen) EDT PM EDT Resulting Agency Comment Spec In Lab Sanjiv Orellana MD CHEMISTRY ORDERABLES Performing Organization Address City/State/[place] [address] Rapid Drug Screen, Urine (IMELDA Request) (07/17/2018 4:31 PM EDT) [facility] Time Signature IMELDA Conf No [facility] LABORATORY IMELDA Requested See Comment [facility] Comment: Refer to Rapid Drug Screen w/o Confirmation, Urine for results. Specimen Anatomical Collection Method Collection Time Receive d Time (Source) Location / / Volume Laterality Urine specimen 07/17/2018 4:31 PM 019 4:52 (specimen) EDT PM EDT Resulting Agency Comment Spec In Lab Dinesh Carreon MD URINE ORDERABLES Performing Organization Address City/[facility]/ZIP Code Phon e Number [address] (ABNORMAL) Urinalysis Microscopic Exam (07/17/2018 4:30 PM EDT) [facility] RBC UA 2 0 - 4 [place] /HPF [facility] WBC UA 3 0 - 5 [place] /HPF [facility] Bacteria UA Rare (A) None /HPF [facility] Squam Epith 4 <=4 /HPF [facility] Amorph Darby Occasional (A) None /HPF [facility] Specimen (Source) Anatomical Collection Method Collection Time Re ceived Time Location / / Volume Laterality Urine specimen 07/17/2018 4:30 07/17/2018 4:52 obtained by clean PM EDT PM EDT catch procedure (specimen) Resulting Agency Comment Spec In Lab Sanjiv Orellana MD URINE ORDERABLES Performing Organization Address City/State/ZIP [place] [address] (ABNORMAL) Urinalysis with reflex Culture (07/17/2018 4:30 PM EDT) [facility] Method Time Signature Glucose UA Negative Negative [facility] mg/dL [facility] Protein UA Negative Negative [facility] Bilirubin UA Negative Negative [facility] mg/dL [facility] Comment: Clinical correlation required for positi ve Urine Bilirubin results as false positive may occur with some drugs and d rug related products. If a false positive is suspected a serum total bili lópez should be considered if clinically indicated. Urobilinogen UA Normal Normal mg/dL [facility] pH UA 6.0 5.0 - 8.0 [facility] Blood UA Moderate (A) Negative mg/dL [facility] Ketones UA Negative Negative mg/dL [facility] Nitrite UA Negative Negative [facility] Leukocytes UA Negative Negative [facility] LABORATORY Appearance UA Clear Clear [facility] Spec [place] UA 1.016 1.002 - 1.030 [facility] Color UA Yellow Yellow [facility] Culture Reflexed No [facility] Specimen (Source) Anatomical Collection Method Collection Time Re ceived Time Location / / Volume Laterality Urine specimen 07/17/2018 4:30 07/17/2018 4:52 obtained by clean PM EDT PM EDT catch procedure (specimen) Resulting Agency Comment Spec In Lab Dinesh Carreon MD URINE ORDERABLES Performing Organization Address City/State/ZIP Code Phon e Number [place] [phone] [facility] [address] Drive Beta HCG, quantitative (07/17/2018 12:55 AM EDT) P athologist Signature Beta hCG Quant <1 mlU/ML [facility] Comment: REFERENCE RANGES NON- FEMALE: ??Less [...] Volume Laterality Blood specimen Venous Draw / 07/17/2018 12:55 07/18/19 19 1:58 (specimen) Unknown AM EDT AM EDT Resulting Agency Comment Spec In Lab Wilber Castillo MD CHEMISTRY ORDERABLES Performing Organization Address City/[facility] Phon e Number [address] (ABNORMAL) Hepatic Function Panel (07/17/2018 12:55 AM EDT) Analysis Performed At Patho logist Time Signature Total Protein 7.1 6.1 - 8.0 [facility] gm/dL [facility] Albumin 3.9 3.2 - 5.2 [facility] gm/dL [facility] AST Not Perf 0 - 30 [facility] Comment: Called by: OSVALDO, Read back by: Celeste Del Cid Date/Time:07/17/18 01:46. Unable to quantitate due to sample hemol ysis. ??Sample redraw suggested. ALT 63 (H) 0 - 30 unit/L [facility] Alk Phos 112 (H) 40 - 104 unit/L [facility] Total Bilirubin 0.7 0.2 - 1.3 mg/dL [facility] Bili, Direct 0.1 0.0 - 0.3 mg/dL [facility] Specimen Anatomical Collection Method Collection Time Receive d Time (Source) Location / / Volume Laterality Blood specimen 07/17/2018 12:55 9 (specimen) AM EDT 12:55 AM EDT Resulting Agency Comment Spec In Lab Héctor Foster MD CHEMISTRY ORDERABLES Performing Organization Address City/[facility]/ZIP [place] [address] Blood culture (07/17/2018 12:15 AM EDT) [facility] gist Method Time Signature Blood Culture No growth [facility] at 5 days. [facility] Specimen Anatomical Collection Method Collection Time Receive d Time (Source) Location / / Volume Laterality Blood specimen 07/17/2018 12:15 9 1:22 (specimen) AM EDT AM EDT Resulting Agency Comment Spec In Lab Héctor Foster MD MICROBIOLOGY - BLOOD ORDERAB LES Performing Organization Address City/[facility]/ZIP [place] [address] Blood culture (07/17/2018 12:05 AM EDT) [facility] gist Method Time Signature Blood Culture No growth [facility] at 5 days. [facility] Specimen Anatomical Collection Method Collection Time Receive d Time (Source) Location / / Volume Laterality Blood specimen 07/17/2018 12:05 9 1:23 (specimen) AM EDT AM EDT Resulting Agency Comment Spec In Lab Héctor Foster MD MICROBIOLOGY - BLOOD ORDERAB LES Performing Organization Address City/[facility]/ZIP [place] [address] XR Chest PA or AP 1 view (07/16/2018 11:59 PM EDT) Anatomical Region Laterality Modality Chest N/A Digital Radiography Specimen (Source) Anatomical Location Collection Method / Collectio n Time Received Time / Laterality Volume Impressions 07/17/2018 1:55 AM EDT No acute cardiopulmonary process seen. Preliminary report signed by: Francis luevano at 07/17/2018 1:47 AM I have personally reviewed the image(s) and the residents interpretation and agree with the findings, Reginaldo Doll at 07/17/2018 1:55 AM Thank you for letting us participate in the care of this patient. For questions regarding this report, please contact e number below. ? Narrative 07/17/2018 1:55 AM EDT EXAMINATION: XR CHEST PA OR AP 1 VIEW CLINICAL HISTORY: 33 yo F with recent IV DU here with vomiting, fever TECHNIQUE: 1 view of the chest COMPARISON: None FINDINGS: Mild dependent changes. No confluent air space opacity seen. Cardiomediastinal contours appear within normal limits. Procedure Note Reginaldo Doll MD - 07/17/2018 EXAMINATION: XR CHEST PA OR AP 1 VIEW CLINICAL HISTORY: 33 yo F with recent IV DU here with vomiting, fever TECHNIQUE: 1 view of the chest COMPARISON: None FINDINGS: Mild dependent changes. No confluent air space opacity seen. Cardiomediastinal contours appear within normal limits. IMPRESSION No acute cardiopulmonary process seen. Preliminary report signed by: Francis luevano at 07/17/2018 1:47 AM I have personally reviewed the image(s) and the residents interpretation and agree with the findings, Reginaldo Doll at 07/17/2018 1:55 AM Thank you for letting us participate in the care of this patient. For questions regarding this report, please contact e number below. Héctor Foster MD IMG DX ORDERABLES EKG 12 Lead (07/16/2018 11:06 PM EDT) Component Value Ref Range Test Analysis Performed Pathologis t Method Time At Signature Ventricular rate 59 BPM MUSE SYSTEM Atrial Rate 59 BPM MUSE SYSTEM P-R Interval 106 ms MUSE SYSTEM QRS Duration 80 ms MUSE SYSTEM Q-T Interval 456 ms MUSE SYSTEM QTC Calculated 451 ms MUSE SYSTEM (Bezet) Calculated P Oliver 50 degrees MUSE SYSTEM Calculated R Oliver 24 degrees MUSE SYSTEM Calculated T Oliver 56 degrees MUSE SYSTEM INTERPRETATION Sinus bradycardia with sinus arrhythmia with short AK MUSE SYSTEM Possible Septal infarct , age undetermined Abnormal ECG Confirmed by MD Lopez Timothy ([id number]) on 07/17/2018 8:26:34 A M Specimen Anatomical Collection Method Collection Time Receive d Time (Source) Location / / Volume Laterality 07/16/2018 11:06 07/17/2018 8:26 PM EDT AM EDT Héctor Foster MD ECG ORDERABLES Performing Organization Address City/State/ZIP Code Phon e Number MUSE SYSTEM HIV Screen, 4th Generation (Leb/CGP) (07/16/2018 11:05 PM EDT) Analysis Performed At Patho logist Time Signature HIV-1/2 Ab and Negative Negative [facility]ORATORY Comment: This 4th Generation HIV [...] Volume Laterality Blood specimen Venous Draw / 07/16/2018 11:05 07/17/19 19 (specimen) Unknown PM EDT 11:08 PM EDT Resulting Agency Comment Spec In Lab Héctor Foster MD IMMUNOLOGY ORDERABLES Performing Organization Address City/[facility]/ZIP Code Phon e Number [address] Blue Tube HOLD (07/16/2018 11:05 PM EDT) P athologist Signature Blue Hold Sample in [facility] LABORATORY Specimen Anatomical Collection Method Collection Time Receive d Time (Source) Location / / Volume Laterality Blood specimen Venous Draw / 07/16/2018 11:05 07/17/19 19 (specimen) Unknown PM EDT 11:09 PM EDT Daniel Mcrae MD HEMATOLOGY ORDERABLES Performing Organization Address City/[facility]/ZIP Code Phon e Number [address] (ABNORMAL) Differential, Automated (07/16/2018 11:05 PM EDT) Patholo gist Method Time Signature Neutrophils % 72.2 % [facility] Neutr Abs (ANC) 12.41 (H) 1.70 - [facility] 6.10 [facility] x10(3)/[facility] L LABORATORY Lymphocytes % 21.2 % [facility] Lymphocytes Abs 3.6 (H) 0.9 - 3.2 [facility] x10(3)/[facility] LABORATORY Monocytes % 4.5 % [facility] Monocyte Abs 0.8 0.3 - 0.9 [facility] x10(3)/[facility] LABORATORY Eosinophils % 0.1 % [facility] Eosinophils Abs 0.0 0.0 - 0.4 [facility] x10(3)/[facility] LABORATORY Basophils % 0.8 % [facility] Basophils Abs 0.1 0.0 - 0.1 [facility] x10(3)/[facility] LABORATORY Immature Gran % 1.20 % [facility] Comment: Immature granulocytes(IG's)percentage an d absolute count will include metamyelocytes, myelocytes, and promyelo cytes. Blood smears from CBCs yielding IG's will be scanned manually for concor dance. If this scan disagrees with the automated IG or if promyelocytes are not ed, a manual differential will be performed. Ayah Gran Abs 0.20 (H) 0.00 - 0.04 x10(3)/[facility] LABORATORY Specimen Anatomical Collection Method Collection Time Receive d Time (Source) Location / / Volume Laterality Blood specimen 07/16/2018 11:05 9 (specimen) PM EDT 11:08 PM EDT Resulting Agency Comment Spec In Lab Daniel Mcrae MD HEMATOLOGY ORDERABLES Performing Organization Address City/State/[place] [address] (ABNORMAL) Hemogram (07/16/2018 11:05 PM EDT) Analysis Performed At Patho logist Time Signature WBC 17.2 (H) 4.0 - 9.5 [facility] x10(3)/[facility] LABORATORY RBC 5.41 (H) 4.00 - [facility] 5.21 [facility] x10(6)/[facility] LABORATORY Hemoglobin 16.5 (H) 11.7 - [facility] 15.5 gm/dL [facility] Hematocrit 48.7 (H) 35.7 - [facility] 45.8 % [facility] LAB[facility]ATORY MCV 90.0 82.6 [facility]4 [facility] LABORATORY MCH 30.5 27.1 - [facility] 32.0 pg [facility]ORY MCHC 33.9 31.7 - [facility] 35.0 gm/dL [facility] Platelets 263 145 - 357 [facility] x10(3)/[facility] LABORATORY RDWSD 40.5 37.0 - [facility] 46.0 [facility] LABORATORY RDWCV 12.3 11.5 - [facility] 14.1 % [facility] LAB[facility]ATORY MPV 10.1 7.6 - 12.9 [facility] LABORATORY nRBC % Auto 0.0 % [facility] nRBC Abs Auto 0.000 0.000 - [facility] 0.000 [facility] x10(3)/[facility] LABORATORY Specimen Anatomical Collection Method Collection Time Receive d Time (Source) Location / / Volume Laterality Blood specimen 07/16/2018 11:05 9 (specimen) PM EDT 11:08 PM EDT Resulting Agency Comment Spec In Lab Daniel Mcrae MD HEMATOLOGY ORDERABLES Performing Organization Address City/State/[place] [address] Salicylate (07/16/2018 11:05 PM EDT) P athologist Signature Salicylate Lvl <20 mg/L [facility] Comment: Therapeutic Range: ??< 200 mg/L Arthritic Therapy: ??150-300 mg/L Toxic: ?> 350 mg/L ??Concentrations > 500 mg/L may be an i ndication for alkalinization of urine. Concentrations > 800 mg/L are often an i ndication for hemodialysis. Specimen Anatomical Collection Method Collection Time Receive d Time (Source) Location / / Volume Laterality Blood specimen 07/16/2018 11:05 9 (specimen) PM EDT 11:08 PM EDT Resulting Agency Comment Spec In Lab Héctor Foster MD CHEMISTRY ORDERABLES Performing Organization Address City/[facility]/ZIP Code Phon e Number [address] (ABNORMAL) Acetaminophen level (07/16/2018 11:05 PM EDT) athologist Signature Acetamin Lvl <5 (L) 10 - 30 [facility] mg/L [facility] Comment: Levels >150 mg/L at 4 hours post ingesti on or >75 mg/L at 8 hours post ingestion are often an indication for N- Acetylcysteine. Specimen Anatomical Collection Method Collection Time Receive d Time (Source) Location / / Volume Laterality Blood specimen 07/16/2018 11:05 9 (specimen) PM EDT 11:08 PM EDT Resulting Agency Comment Spec In Lab Héctor Foster MD CHEMISTRY ORDERABLES Performing Organization Address City/[facility]/ZIP [place] [address] Ethanol Level (07/16/2018 11:05 PM EDT) athologist Signature Ethanol Lvl <100 <=99 mg/L [facility] Comment: Greater than 800 mg/L (0.08%) should be considered intoxicated. 3400 to 4500 mg/L (0.34 - 0.45%) is cons idered severe intoxication. Greater than 5500 mg/L (0.55%) is usuall y fatal. Specimen Anatomical Collection Method Collection Time Receive d Time (Source) Location / / Volume Laterality Blood specimen 07/16/2018 11:05 9 (specimen) PM EDT 11:08 PM EDT Resulting Agency Comment Spec In Lab Héctor Foster MD CHEMISTRY ORDERABLES Performing Organization Address City/[facility]/ZIP Code Phon e Number [address] Lipase (07/16/2018 11:05 PM EDT) athologist Signature Lipase 23 0 - 60 [facility] unit/L [facility] Specimen Anatomical Collection Method Collection Time Receive d Time (Source) Location / / Volume Laterality Blood specimen 07/16/2018 11:05 9 (specimen) PM EDT 11:08 PM EDT Resulting Agency Comment Spec In Lab Héctor Foster MD CHEMISTRY ORDERABLES Performing Organization Address City/[facility]/ZIP [place] [address] (ABNORMAL) Hepatic Function Panel (07/16/2018 11:05 PM EDT) Analysis Performed At Patho logist Time Signature Total Protein 7.4 6.1 - 8.0 [facility] gm/dL [facility] Albumin 4.1 3.2 - 5.2 [facility] gm/dL [facility] AST Not Perf 0 - 30 [facility] Comment: Called by: OSVALDO, Read back by: Reji Acosta, Date/Time:07/16/18 23:53. Unable to quantitate due to sample hemol ysis. ??Sample redraw suggested. ALT 62 (H) 0 - 30 unit/L [facility] Alk Phos 106 (H) 40 - 104 unit/L [facility] Total Bilirubin 0.8 0.2 - 1.3 mg/dL [facility] Bili, Direct 0.2 0.0 - 0.3 mg/dL [facility] Specimen Anatomical Collection Method Collection Time Receive d Time (Source) Location / / Volume Laterality Blood specimen 07/16/2018 11:05 9 (specimen) PM EDT 11:08 PM EDT Resulting Agency Comment Spec In Lab Héctor Foster MD CHEMISTRY ORDERABLES Performing Organization Address City/[facility]/ZIP [place] [address] Basic Metabolic Panel (non-fasting) (07/16/2018 11:05 PM EDT) P athologist Signature Glucose Lvl 98 65 - 199 [facility] mg/dL [facility] Comment: Diabetes: >=200 mg/dL plus symp toms BUN 14 8 - 18 mg/dL [facility] Creatinine 0.72 0.70 - 1.20 mg/dL [facility] Sodium 139 135 - 145 mmol/L [facility] Potassium 4.1 3.5 - 5.0 mmol/L [facility] Comment: Please note: ??Patients with WBC >100,00 0 may have falsely elevated Potassium levels. ??For accurate Potassium quantif ication in these patients send serum separator tube (gold top) for subsequent determinations. ??Contact the Clinical Chemistry Laboratory if there are any qu estions. Chloride 104 98 - 107 mmol/L [facility] CO2 23 22 - 31 mmol/L [facility] Anion Gap 12 5 - 15 mmol/L [facility] Calcium 9.6 8.5 - 10.5 mg/dL [facility] Estimated GFR 111 >=60 mL/min/1.73 m?? [facility] Comment: The eGFR was calculated using the CKD-EP I equation. As with all creatinine based estimates of kidney function, eGFR values calculated with the CKD-EPI equation are not accurate in patients wi th acute kidney failure, extremes of body mass or the acutely ill. [email or web address] eGFR 128 >=60 mL/min/1.73 m?? [facility] Comment: The eGFR was calculated using the CKD-EP I equation. As with all creatinine based estimates of kidney function, eGFR values calculated with the CKD-EPI equation are not accurate in patients wi th acute kidney failure, extremes of body mass or the acutely ill. [email or web address] Specimen Anatomical Collection Method Collection Time Receive d Time (Source) Location / / Volume Laterality Blood specimen 07/16/2018 11:05 9 (specimen) PM EDT 11:08 PM EDT Resulting Agency Comment Spec In Lab Héctor Foster MD CHEMISTRY ORDERABLES Performing Organization Address City/State/Z[place] [address] documented in this encounter Visit Diagnoses Diagnosis Herpes zoster without complication Herpes zoster without mention of complic ation Polysubstance abuse Other, mixed, or unspecified nondependen t drug abuse, unspecified Vomiting, intractability of vomiting not specified, presence of nausea not specified, unspecified vomiting type Leukocytosis Leukocytosis, unspecified documented in this encounter Admitting Diagnoses Diagnosis Leukocytosis Leukocytosis, unspecified documented in this encounter Administered Medications Inactive Administered Medications - up to 3 most recent administrations Medication Order MAR Action Action Date Dose Rate Site acetaminophen (TYLENOL) tablet 650 Given 07/19/2018 1:40 AM EDT 650 mg mg 650 mg, Oral, EVERY 4 HOURS PRN, Starting on Sun07/17/18 at 2017, Until Sun07/19/18 at 0657, Pain, Maximum dose of acetaminophen is 4000 mg from all sources in 24 hours., Routine Given 07/17/2018 8:27 PM EDT 650 mg acyclovir (ZOVIRAX) 650 mg in New Bag 07/18/2018 10:26 AM EDT 650 mg 263 mL/hr sodium chloride 0.9% 263 mL 650 mg, Intravenous, EVERY 8 HOURS, First dose (after last modification) on Sun07/17/18 at 1800, Until Discontinued, Administer over 60 Minutes, Extensive cutaneous zoster, Indication for (Active or Suspected): Skin/Skin Structure New Bag 07/18/2018 2:59 AM EDT 650 mg 263 mL/hr New Bag 07/17/2018 6:59 PM EDT 650 mg 263 mL/hr azithromycin (ZITHROMAX) tablet 1,000 mg Given 07/17/2018 1:23 AM EDT 1,000 mg 1,000 mg, Oral, ONCE, 1 dose, On Sun07/17/18 at 0111, STAT Buprenorphine - daily order reminder 1 e ach 1 each, Oral, DAILY, First dose on Sun at 0900, 3 doses, Last dose on Sun07/21/18 at 0900, If the daily Buprenorph ine order has not been placed, contact the Provider to confirm that the order will be written, th e dose is held or discontinued. buprenorphine-naloxone (SUBOXONE) 2-0.5 mg Given 07/18 4:57 PM EDT 1 tablet sublingual tablet 1 tablet 1 tablet (2 mg of opiate), Sublingual, ONCE, 1 dose, On Jada 07/18/18 at 1715, Routine buprenorphine-naloxone (SUBOXONE) 2-0.5 mg Given 07/19 12:23 AM EDT 1 tablet sublingual tablet 1-2 tablet 1-2 tablet, Sublingual, EVERY 2 HOURS PRN, Starting on Jada 07/18/18 at 0200, Until Sun07/19/18 at 0657, opioid withdrawal - uncomplicated, Day 1 1-2 tablet, Sublingual, EVERY 2 HOURS PRN. Per the Clinical Opiate Withdrawal Scale (COWS) scoring tool: For withdrawal score of 5-12, give 1 (2 mg-0.5 mg) tablet For withdrawal score of greater than 12, 2 (2 mg-0.5 mg) tablets - Contact provider if patient reaches a total daily dose of 12 mg of buprenorphine on day one of induction and continues to score on the COWS. Day 2 and 3 1-2 tablet, Sublingual, EVERY 2 HOURS PRN. Unless sedated, give the previous day's total dose of buprenorphine as a single dose at 8 am then: Per the Clinical Opiate Withdrawal Scale (COWS) scoring tool: For withdrawal score of 5-12, give 1 (2 mg-0.5 mg) tablet For withdrawal score of greater than 12, give 2 (2 mg-0.5 mg) tablets - Contact provider if patient reaches a total daily dose of 16 mg of buprenorphine on day two of induction and continues to score on the COWS., Routine Given 07/18/2018 8:57 PM EDT 2 tablets Given 07/18/2018 4:10 PM EDT 2 tablets buprenorphine-naloxone (SUBOXONE) 2-0.5 mg Given 07/18 2:06 AM EDT 2 tablets sublingual tablet 2 tablet 2 tablet, Sublingual, ONCE, 1 dose, On Jada 07/18/18 at 0200, DAY 1: To avoid precipitating withdrawal, the first dose of buprenorphine should be started only when objective signs of moderate withdrawal appear. Patient must score greater than or equal to 12 per the Clinical Opiate Withdrawal Scale (COWS) scoring tool., Routine buprenorphine-naloxone (SUBOXONE) 8-2 mg Given 07/17/2018 8:03 A M EDT 1 tablet sublingual tablet 1 tablet 1 tablet (8 mg of opiate), Sublingual, DAILY, First dose on Sun07/17/18 at 0900, Until Discontinued, Routine cefTRIAXone (ROCEPHIN) 1 g vial attach New Bag 07/17/2018 1:23 AM EDT 1 g 100 mL/hr to sodium chloride 0.9% 50 mL Mini-Bag Plus 1 g, Intravenous, ONCE, 1 dose, On Sun07/17/18 at 0111, Administer over 30 Minutes, Indication for (Active or Suspected): Other (See comment) enoxaparin (LOVENOX) injection 40 mg Given 07/18/2018 8:34 PM EDT 40 mg 40 mg, Subcutaneous, NIGHTLY, First dose on Sun07/17/18 at 2100, Until Discontinued, Routine Given 07/17/2018 8:28 PM EDT 40 mg fluconazole (DIFLUCAN) tablet 200 mg Given 07/16/2018 11:15 PM EDT 200 mg 200 mg, Oral, ONCE, 1 dose, On Sun07/16/18 at 2315, Routine gabapentin (NEURONTIN) capsule 100 mg Given 07/18/2018 8:34 PM EDT 100 mg 100 mg, Oral, 3 TIMES DAILY, First dose on Sun07/18/18 at 1500, Until Discontinued, Routine Given 07/18/2018 3:12 PM EDT 100 mg hydrOXYzine (ATARAX) tablet 25 mg Given 07/18/2018 3:12 PM EDT 25 mg 25 mg, Oral, 4 TIMES DAILY PRN, Starting on Sun07/18/18 at 1354, Until Sun07/19/18 at 0657, Itching, Routine ketorolac (TORADOL) injection 15 mg Given 07/17/2018 1:06 AM EDT 15 mg 15 mg, Intravenous, ONCE, 1 dose, On Sun07/16/18 at 2247, Routine lactated ringers infusion New Bag 07/16/2018 10:47 PM EDT 125 mL/hr 125 mL/hr 125 mL/hr, Intravenous, CONTINUOUS, Starting on Sun07/16/18 at 2247, Until Sun07/17/18 at 0217 metroNIDAZOLE (FLAGYL) tablet 2,000 mg Given 07/18/2018 3:41 PM EDT 2,000 mg 2,000 mg, Oral, ONCE, 1 dose, On Sun07/18/18 at 1530, Routine nystatin (Mycostatin) (100,000 Given 07/18/2018 8:34 PM EDT 500, 000 Units units/mL) oral liquid 500,000 Units 500,000 Units, Oral, 4 TIMES DAILY, 12 doses, First dose on Sun07/18/18 at 0945, Last dose on Sun07/20/18 at 2100, Routine Given 07/18/2018 5:15 PM EDT 500,000 Units Given 07/18/2018 1:00 PM EDT 500,000 Units ondansetron (ZOFRAN) injection 4 mg Given 07/18/2018 1:27 AM EDT 4 mg 4 mg, Intravenous, EVERY 8 HOURS PRN, Starting on Sun07/18/18 at 0115, Until Sun07/19/18 at 0657, Nausea ondansetron (ZOFRAN) tablet 4 mg Given 07/17/2018 11:46 PM EDT 4 mg 4 mg, Oral, EVERY 8 HOURS PRN, Starting on Sun07/17/18 at 2335, Until Sun07/18/18 at 0116, Nausea, Routine ondansetron (ZOFRAN) tablet 4 mg Given 07/19/2018 2:15 AM EDT 4 mg 4 mg, Oral, EVERY 8 HOURS PRN, Starting on Sun07/18/18 at 0115, Until Sun07/19/18 at 0657, Nausea, Routine sodium chloride 0.9 % (flush) flush 5 mL Given 07/18/2018 10:26 AM EDT 5 mLs 5 mL, Intravenous, 2 TIMES DAILY, First dose on Sun07/17/18 at 2100, Until Discontinued, Routine Given 07/17/2018 8:04 PM EDT 5 mLs sodium chloride 0.9% 1,000 mL IV bolus New Bag 07/17/2018 3:08 AM EDT 2000 mL/hr at 2,000 mL/hr, Intravenous, ONCE, 1 dose, On Sun07/17/18 at 0219 valACYclovir (VALTREX) tablet 1,000 mg Given 07/18/2018 8:34 PM EDT 1,000 mg 1,000 mg, Oral, 3 TIMES DAILY, First dose on Sun07/18/18 at 1630, Until Discontinued, Routine Given 07/18/2018 5:14 PM EDT 1,000 mg documented in this encounter Active and Recently Administered Medications Times are shown in EDT. Scheduled Medication Order 07/17/2018 07/18/2018 07/19/2018 acyclovir (ZOVIRAX) 650 mg in sodium chloride 0.9% 263 mL (CANCELED) 185 (New Bag - Provider: Valencia Robbins RN)195 (Stopped - Provider: Sugar Davila, CHRISTEN) 0259 (New Bag - Provider: Sugar blandon RN)0359 (Stopped - Provider: Sugar Davila, CHRISTEN)1026 (New Bag - Provider: Adele Veloz, CHRISTEN)1126 (Stopped - Provider: Adele Veloz RN) 650 mg, Intravenous, EVERY 8 HOURS, Firs t dose on Sun07/17/18 at 1800, Until Discontinued, Administer over 60 Minutes, Extensive cutaneous zoster, Indication for (Active or Suspected): Skin/Skin Structure azithromycin (ZITHROMAX) tablet 1,000 mg (COMPLETED) 0 123 (Given - Provider: Sulema Drake RN) 1,000 mg, Oral, ONCE, 1 dose, Sun07/17/18 at 0111, STAT Buprenorphine - daily order reminder 1 each 1 each, Oral, DAILY, First dose on Sun at 0900, For 3 days, If the daily Buprenorphine order has not been placed, contact the Provider to confirm that the order will be written, the dose is held or discontinued. buprenorphine-naloxone (SUBOXONE) 2-0.5 mg sublingual tablet 1 tablet (COMPLETED) 1657 (Given - Provider: Adele ricci RN) 1 tablet (2 mg of opiate), Sublingual, O NCE, 1 dose, Jada 07/18/18 at 1715, Routine buprenorphine-naloxone (SUBOXONE) 2-0.5 mg sublingual tablet 2 tablet (COMPLETED) 0206 (Given - Provider: Sugar holguin RN) 2 tablet, Sublingual, ONCE, 1 dose, Jada 07/18/18 at 0200, DAY 1: To avoid precipitating withdrawal, the first dose of buprenorphine should be started only when objective signs of moderate withdrawal appe ar. Patient must score greater than or equal to 12 per the Clinical Opiate Withdrawal Scale (COWS) scoring tool., Routine buprenorphine-naloxone (SUBOXONE) 8-2 mg sublingual ta blet 1 tablet (CANCELED) 0803 (Given - Provider: Emily Alva, CHRISTEN) 1 tablet (8 mg of opiate), Sublingual, D AILY, First dose on Sun07/17/18 at 0900, Until Discontinued, Routine cefTRIAXone (ROCEPHIN) 1 g vial attach t o sodium chloride 0.9% 50 mL Mini-Bag Plus (COMPLETED) 012 (New Bag - Provider: Sulema haq RN)025 (Stopped - Provider: Sulema Drake RN) 1 g, Intravenous, ONCE, 1 dose, 07/17 at 0111, Administer over 30 Minutes, Indication for (Active or Suspected): Other (See comment) enoxaparin (LOVENOX) injection 40 mg 2027 (Given - Pro vider: Sugar Davila RN) 2033 (Given - Provider: Dolly Perales RN) 40 mg, Subcutaneous, NIGHTLY, First dose on Sun07/17/18 at 2100, Until Discontinued, Routine gabapentin (NEURONTIN) capsule 100 mg 15 12 (Given - Provider: Adele Schwab RN)2033 (Given - Provider: Dolly Perales RN) 100 mg, Oral, 3 TIMES DAILY, First dose on Sun07/18/18 at 1500, Until Discontinued, Routine ketorolac (TORADOL) injection 15 mg (COMPLETED) 010 ( Given - Provider: Sulema Drake RN) 15 mg, Intravenous, ONCE, 1 dose, Sun07/16/18 at 2247, Routine metroNIDAZOLE (FLAGYL) tablet 2,000 mg (COMPLETED) 1541 (Given - Provider: Adele Veloz RN) 2,000 mg, Oral, ONCE, 1 dose, Sun07/18/18 at 1530, Routine nystatin (Mycostatin) (100,000 units/mL) oral liquid 500,000 Units 1026 (Given - Provider: Adele Veloz RN)1300 (Given - Provider: Adele Veloz RN - Comment: forgot to scanbut did scan other medication given at same time. did no trealize until after)1715 (Given - Provider: Adele Veloz RN) 500,000 Units, Oral, 4 TIMES DAILY, 12 d oses, First dose on Jada 07/18/18 at 0945, Last dose on 07/20/18 at 2100, Routine 2033 (Given - Provider: Dolly Perales RN) sodium chloride 0.9 % (flush) flush 5 mL 2003 (Given - Provider: Sugar Davila RN) 1026 (Given - Provider: Adele ricci RN)2099 (Not Given - Provider: Dolly Perales RN - Reason: Loss of access) 5 mL, Intravenous, 2 TIMES DAILY, First dose on Sun07/17/18 at 2100, Until Discontinued, Routine sodium chloride 0.9% 1,000 mL IV bolus (COMPLETED) 030 8 (New Bag - Provider: Sulema Drake RN)0338 (Stopped - Provider: Emily Alva RN) at 2,000 mL/hr, Intravenous, ONCE, 1 dose, Sun07/17/18 at 0219 valACYclovir (VALTREX) tablet 1,000 mg 1 714 (Given - Provider: Adele Schwab RN)2033 (Given - Provider: Dolly Perales RN) 1,000 mg, Oral, 3 TIMES DAILY, First dos e on Jada 07/18/18 at 1630, Until Discontinued, Routine PRN Medication Order 07/17/2018 07/18/2018 07/19/2018 acetaminophen (TYLENOL) tablet 650 mg 2026 (Given - Pr ovider: Sugar Davila RN) 014 (Given - Provider: Alyssa Perales RN) 650 mg, Oral, EVERY 4 HOURS PRN, Startin g Sun07/17/18 at 2017, Until Sun07/19/18 at 0657, Pain, Maximum dose of acetaminophen is 4000 mg from all sources in 24 hours., Routine buprenorphine-naloxone (SUBOXONE) 2-0.5 mg sublingual tablet 1-2 tablet 1102 (Given - Provider: Adele Veloz RN)1332 (Given - Provider: Adele Schwab RN)1610 (Given - Provider: Adele Veloz RN)2056 (Given - Provider: Dolly Perales RN) 0023 (Given - Provider: Dolly Perales RN) 1-2 tablet, Sublingual, EVERY 2 HOURS AK N, Starting Jada 07/18/18 at 0200, Until Sun07/19/18 at 0657, opioid withdrawal - uncomplicated, Day 1 1-2 tablet, Sublingual, EVERY 2 HOURS PRN. Per the Clinical Opiate Withdrawal Scale (COWS) scoring tool: For withdrawal score of 5-12, give 1 (2 mg-0.5 mg) tablet For withdrawal score of greater than 12, 2 (2 mg- 0.5 mg) tablets - Contact provider if patient reaches a total daily dose of 12 mg of buprenorphine on day one of induction and continues to score on the COWS. Day 2 and 3 1-2 tablet, Sublingual, EVERY 2 HOURS PRN. Unless sedated, give the previo us day's total dose of buprenorphine as a single dose at 8 am then: Per the Clinical Opiate Withdrawal Scale (COWS) scoring tool: For withdrawal score of 5-12, give 1 (2 mg-0.5 mg) tablet For withdr awal score of greater than 12, give 2 (2 mg-0.5 mg) tablets - Contact provider if patient reaches a total daily dose of 16 mg of buprenorphine on day two of induction and continues to score on the COWS., Routine hydrOXYzine (ATARAX) tablet 25 mg 1512 ( Given - Provider: Adele Veloz RN) 25 mg, Oral, 4 TIMES DAILY PRN, Starting Jada 07/18/18 at 1354, Until Sun07/19/18 at 0657, Itching, Routine lidocaine (XYLOCAINE) 10 mg/mL (1 %) injection 3 mg 3 mg (0.3 mL), Subcutaneous, ONCE PRN, 1 dose, Starting 07/17/18 at 1510, Until Sun07/19/18 at 0657, for discomfort with PIV insertion, Routine ondansetron (ZOFRAN) injection 4 mg(Linked Group 1) 0127 (Given - Provider: Sugar Davila RN) 0215 (See Alternative - Provider: Dolly Perales RN) 4 mg, Intravenous, EVERY 8 HOURS PRN, St arting Jada 07/18/18 at 0115, Until Sun07/19/18 at 0657, Nausea ondansetron (ZOFRAN) tablet 4 mg (CANCELED) 2346 (Give n - Provider: Sugar Davila, CHRISTEN) 4 mg, Oral, EVERY 8 HOURS PRN, Starting Sun07/17/18 at 2335, Until Jada 07/18/18 at 0116, Nausea, Routine ondansetron (ZOFRAN) tablet 4 mg(Linked Group 1) 0127 (See Alternative - Provider: Sugar Davila RN) 0215 (Given - Provider: Dolly Perales RN) 4 mg, Oral, EVERY 8 HOURS PRN, Starting Jada 07/18/18 at 0115, Until Sun07/19/18 at 0657, Nausea, Routine sodium chloride 0.9 % (flush) flush 5-20 mL 5-20 mL, Intravenous, EVERY 1 MIN PRN, S tarting Sun07/17/18 at 1510, Until Sun07/19/18 at 0657, flush, Flush pertains to all indwelling lines. Flush per protocol found in the job aid using the link provided on this medication record., Routine Linked Groups Order Group 1: ondansetron (ZOFRAN) tablet 4 mgJump to med 4 mg, Oral, EVERY 8 HOURS PRN, Starting Jada 07/18/18 at 0115, Until Sun07/19/18 at 0657, Nausea, Routine Or ondansetron (ZOFRAN) injection 4 mgJump to med 4 mg, Intravenous, EVERY 8 HOURS PRN, St arting Jada 07/18/18 at 0115, Until Sun07/19/18 at 0657, Nausea documented in this encounter Care Teams Can Line Operator Relationship Specialty Start Date End Date Edilia Gabriel APRN PCP - General Family Medicine 07/12/17 09/04/18 documented as of this encounter
--- OUTSIDE RECORDS SUMMARY | 2021-10-20 07:58 | XMS_ITS | Encounter Summary ---
:1985 Author Organization [facility] [place] [address] Care Team Providers Name Role Phone Genet Holland Primary Care Provider Encounter Details Date Type Department Care Team Description 02/10/2019 External Results Obstetrics and Gynecology Neelam Rodgers [place] [facility] [place] [place] [address] Social History Tobacco Use Types Packs/Day [...] Diagnosis Comme nts BETA HCG, QUANTITATIVE Routine 02/08/2019 Resul ts for this procedure are i n the results section . TSH Routine 02/08/2019 Results for thi s procedure are i n the results section . HEPATIC FUNCTION PANEL Routine 02/08/2019 Resul ts for this procedure are i n the results section . documented in this encounter Results Hepatic Function Panel (02/08/2019) P athologist Signature Total Protein 8.0 Albumin 4.1 Globulin 3.92 Total Bilirubin 0.5 Bili, Direct 0.2 Alk Phos 99 AST 47 ALT 73 Specimen (Source) Anatomical Location Collection Method / Collectio n Time Received Time / Laterality Volume Blood specimen 02/08/2019 (specimen) Historical Provider CHEMISTRY ORDERABLES TSH (02/08/2019) P athologist Signature TSH 3.846 Specimen (Source) Anatomical Location Collection Method / Collectio n Time Received Time / Laterality Volume Blood specimen 02/08/2019 (specimen) Historical Provider MD CHEMISTRY ORDERABLES Beta HCG, quantitative (02/08/2019) P athologist Signature Beta hCG Quant 1,266.8 Specimen (Source) Anatomical Location Collection Method / Collectio n Time Received Time / Laterality Volume Blood specimen 02/08/2019 (specimen) Historical Provider CHEMISTRY ORDERABLES documented in this encounter Visit Diagnoses Not on filedocumented in this encounter Care Teams Crew Team Member Relationship Specialty Start Date End Date Genet Holland PA PCP - General Family Medicine 02/06/19 05/15/20 [address] [place] [address] documented as of this encounter
--- OUTSIDE RECORDS SUMMARY | 2021-10-20 07:58 | XMS_ITS | Encounter Summary ---
:1985 Author Organization [facility] Address [address] [id number] Care Team Providers Name Role Phone None Primary Care Provider Unavailable Encounter Details Date Type Department Care Team Description 10/29/2018 Interpretation Only [facility] [address] [place] [address] [phone] [id number] [phone] Social History Tobacco Use Types Packs/Day Years [...] Priority Date/Time Associated Diagnosis Comme nts XR FOOT MIN 3 VIEWS Routine 10/29/2018 7:05 PM Re sults for this RIGHT EDT procedure are i n the results section. documented in this encounter Results XR Foot Min 3 views Right (Generic) (10/29/2018 7:05 PM EDT) Anatomical Region Laterality Modality Foot Right Radiographic Imaging Specimen (Source) Anatomical Collection Method Collection Time Re ceived Time Location / / Volume Laterality 10/29/2018 7:05 PM EDT Impressions 10/29/2018 7:37 PM EDT Question fractures of right great toe sesamoid and base of second proximal phalanx as described above. No evidence of radiopaque foreign body Thank you for letting us participate in the care of this patient. For questions regarding this report, please contact e number below. ? Narrative 10/29/2018 7:37 PM EDT EXAMINATION: XR FOOT MIN 3 VIEWS RIGHT (GENERIC) CLINICAL HISTORY: r/o fb base of third t oe TECHNIQUE: 3 views right foot COMPARISON: None FINDINGS: There is lucency through the sesamoid of the interphalangeal joint of the great toe with distraction of the bony fragmen ts and associated soft tissue swelling. There is additional likely small avulsio n fracture of the base of the second proximal phalanx. Findings may reflect r emote rather than acute trauma, please correlate clinically. The right foot laz ears otherwise normal. Specifically, no evidence of radio opaque foreign body pr ojecting over the third digit Procedure Note Raisa Harris MD - 10/07 EXAMINATION: XR FOOT MIN 3 VIEWS RIGHT ( GENERIC) CLINICAL HISTORY: r/o fb base of third t oe TECHNIQUE: 3 views right foot COMPARISON: None FINDINGS: There is lucency through the sesamoid of the interphalangeal joint of the great toe with distraction of the bony fragmen ts and associated soft tissue swelling. There is additional likely small avulsio n fracture of the base of the second proximal phalanx. Findings may reflect r emote rather than acute trauma, please correlate clinically. The right foot laz ears otherwise normal. Specifically, no evidence of radio opaque foreign body pr ojecting over the third digit IMPRESSION Question fractures of right great toe se samoid and base of second proximal phalanx as described above. No evidence of radiopaque foreign body Thank you for letting us participate in the care of this patient. For questions regarding this report, please contact th e number below. Wilber Wilcox MD IMG DX ORDERABLES documented in this encounter Visit Diagnoses Not on filedocumented in this encounter Care Teams Health Management Consultant Relationship Specialty Start Date End Date None PCP - General 10/20/18 02/05/19 None documented as of this encounter
--- OUTSIDE RECORDS SUMMARY | 2021-10-20 07:58 | XMS_ITS | Encounter Summary ---
:1985 [place] [address] Care Team Providers Name Role Phone Gabriel Uvalde Piter QUIROS Primary Care Provider Encounter Details Date Type Department Care Team Description 02/19/2018 Notes Only Emergency Department Darya Watts APRN [facility] [place] [address] [place] [address] [phone] (Wo rk) Social History Tobacco Use Types Packs/Day Years Used Date Former Smoker Cigarettes 0.5 Smokeless Tobacco: Never Used Comments: Has maybe 1 a day or 2 Alcohol Use Standard Drinks/Week Comments No 0 (1 standard drink = 0.6 oz pure alcoho l) Not during Sex Assigned at Date Recorded Female 04/13/2020 8:26 AM EST documented as of this encounter Progress Notes Darya Alexis APRN - 02/19/2018 3:45 PM EST Telephone contact for trichomonas results patient advised that her trichomonas culture came back positive. Patient states she is feeling somewhat improved since starting her antibiotics since her visitin the emergency department she is told about prescriptions for treatment for trichomonas metronidazole 500 mg twice daily times 7 days was called into [facility] in [facility] per the patient's request. Follow-up and return precautions were discussed in detail with the patient patient is agreeable with the plan and will follow up with primary care. documented in this encounter Plan of Treatment Not on filedocumented as of this encounter Visit Diagnoses Not on filedocumented in this encounter Care Teams Joss House Keeper Relationship Specialty Start Date End Date Edilia Gabriel APRN PCP - General Family Medicine 07/12/17 09/04/18 documented as of this encounter
--- OUTSIDE RECORDS SUMMARY | 2021-10-20 07:58 | XMS_ITS | Encounter Summary ---
:1985 Author Organization [place] [address] Care Team Providers Name Role Phone None Primary Care Provider Unavailable Encounter Details Date Type Department Care Team Description 10/24/2018 Telephone Plastic Surgery at [facility] [place] [address] Social History Tobacco Use Types Packs/Day [...] on filedocumented in this encounter Care Teams Log Chain Worker Relationship Specialty Start Date End Date None PCP - General 10/20/18 02/05/19 None documented as of this encounter
--- OUTSIDE RECORDS SUMMARY | 2021-10-20 07:58 | XMS_ITS | Encounter Summary ---
:1985 [place] [address] Care Team Providers Name Role Phone Autumn Krishnan APRN Primary Care Provider [phone] Encounter Details Date Type Department Care Team Description 12/20/2018 Notes Only [facility] [place] [address] Social History Tobacco Use Types Packs/Day Years [...] on filedocumented in this encounter Care Teams Detective Sergeant Relationship Specialty Start Date End Date Autumn Krishnan APRN PCP - General 05/16/20 [place] [address] documented as of this encounter
--- OUTSIDE RECORDS SUMMARY | 2021-10-20 07:58 | XMS_ITS | Encounter Summary ---
:1985 [place] [address] Care Team Providers Name Role Phone None Primary Care Provider Unavailable Encounter Details Date Type Department Care Team Description 10/21/2018 Anesthesia Event 3 [facility] Johanna Hooks MD [facility] Celia gutierrez [place] [address] [place] [address] [phone] (Wo rk) Anesthesia Record Procedure Summary Procedure Name Responsible Anesthesia Start Anesthesia Stop Time Anesthesiologist Time Acute Pain Service (consult) Events No events on file. No medications on file. Agents No agents on file. Blood No blood administrations on file. Lines, Drains, and Airways No LDAs on file. documented in this encounter Social History Tobacco [...] on filedocumented in this encounter Care Teams Hydrochloric Area Supervisor Relationship Specialty Start Date End Date None PCP - General 10/20/18 02/05/19 None documented as of this encounter
--- OUTSIDE RECORDS SUMMARY | 2021-10-20 07:58 | XMS_ITS | Encounter Summary ---
:1985 Author Organization [facility] [place] [address] Care Team Providers Name Role Phone Autumn Krishnan APRN Primary Care Provider [phone] Encounter Details Date Type Department Care Team Description 08/21/2018 Hospital Encounter [facility]enterology at [facility] [place] [address] [facility] [phone] [facility] [place], [place] [address] Social History Tobacco Use Types [...] on filedocumented in this encounter Care Teams Sales Merchandise Associate Relationship Specialty Start Date End Date Autumn Krishnan APRN PCP - General 05/16/20 [address] [place] [address] documented as of this encounter
--- OUTSIDE RECORDS SUMMARY | 2021-10-20 07:58 | XMS_ITS | Encounter Summary ---
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 Patient will undergo local debridement in the ED under local, and we will admit for IV abx and ID/APS consult. documented in this encounter Plan of Treatment Not on filedocumented as of this encounter Visit Diagnoses Not on filedocumented in this encounter Care Teams Student Services Coordinator Relationship Specialty Start Date End Date None PCP - General 10/20/18 02/05/19 None documented as of this encounter
--- OUTSIDE RECORDS SUMMARY | 2021-10-20 07:58 | XMS_ITS | Encounter Summary ---
:1985 Author Organization [facility] [place] [address] Care Team Providers Name Role Phone None Primary Care Provider Unavailable Reason for Visit Reason Comments Hospital Transfer Hand Pain Auth/Cert Specialty Diagnoses / Procedures Referred By Contact Refer red To Contact Diagnoses Abscess of dorsum of left hand Referral ID Status Reason Start Date Expiration Date Visits Requ ested Visits Authorized [id number] 1 1 Encounter Details Date Type Department Care Team Description 10/20/2018 - Hospital Encounter 3 Moshe Clark MD [facility] [place] [address] Hand abscess 10/23/2018 [facility] Cristiane Richard MD [facility] [place] [address] [facility] Bruno Erickson MD [facility] [place] [address] [place] [phone] Social History Tobacco Use Types Packs/Day Years [...] Sign Reading Time Taken Comments Blood Pressure 122/69 10/22/2018 11:30 PM EDT Pulse 80 10/21/2018 4:18 AM EDT Temperature 36.8 ??C (98.2 ??F) 10/22/2018 11:30 PM EDT Respiratory Rate 18 10/22/2018 11:30 PM EDT Oxygen Saturation 98% 10/22/2018 11:30 PM EDT Inhaled Oxygen Concentration - - Weight 69.4 kg (153 lb) 10/20/2018 11:38 AM EDT Height 175.3 cm (5' 9) 10/20/2018 11:38 AM EDT Body Mass Index 22.59 10/20/2018 11:38 AM EDT documented in this encounter Discharge Summaries Bruno Erickson MD - 10/23/2018 12:23 AM EDT Discharge Summary Patient Name: Shirlene Kovacs Patient Age: 33 y.o. Language: Taiwanese Race: White Ethnicity: Not nor Admit date: 10/20/2018 Discharge date and time: 10/23/2018 Attending Physician: Bruno Erickson MD Discharge Physician: Bruno Erickson MD Follow-up Recommendations for Providers: See discharge instructions for additional details. No future appointments. Inpatient Provider Contact Information: Bruno Erickson MD Orthopedics/Plastics: [phone] After hours and weekends, call [facility] Roll Forming Machine Set Up Mechanic, , and have the Orthopedic resident paged. Discharge Diagnoses (Hospital Problems) and Secondary Diagnoses (Chronic Problems): Active Hospital Problems Diagnosis ??? Abscess of dorsum of left hand Resolved Hospital Problems No resolved problems to display. Active Non-Hospital Problems Diagnosis ??? Leukocytosis ??? Rubella non-immune status, antepartum ??? History [...] ??? Hodgkin's disease in remission Operations/Major Procedures: Bedside I&D 10/20/18 History of Presentation: Shirlene Kovacs is a 33 y.o. female who presents with L hand dorsal abscess. She has a history of IVDU and tends to inject on the dorsal aspect of her thumb. Last used 6 days ago. Notes increased swelling to her left hand for over a month, worse in the last few days. Does endorse fevers and chills. Nonumbness or tingling in her LUE. She intially went to [facility] for evaluation on Sunday but left AMA. [facility] and was transferred here for further management. She has received vanc and zosyn in the ED at . Of note, patient is hep C positive. Plan to admit to [facility] for IV abx. ?? Hospital Course: Shirlene Kovacs was admitted from the Emergency Department for evaluation and treatment of the left hand dorsal abscess. On HD#1 a bedside I+D was done in the ED. APS psych and ID were consulted to assist in the care of this patient. Unfortunately early in the morning of 10/23/18 she elected to leave AGAINST MEDICAL ADVICE. She was given a prescription for oral antibiotics to best cover her known MRSAinfection, fully understanding that a final plan had not been formulated in discussion with the infectious disease team. Vital Signs at Discharge: Weight: Wt Readings from Last 1 Encounters: 10/20/18 69.4 kg (153 lb) Height: Ht Readings from Last 1 Encounters: 10/20/18 175.3 cm (5' 9) HC: HC Readings from Last 1 Encounters: No data found for HC BMI: Body mass index is 22.59 kg/m??. Last value Range last 24 hrs Temperature Temp: 36.8 ??C (98.2 ??F) Temp: [36.6 ??C (97.9 ??F)-37.7 ??C (99.9 ??F)] Heart Rate Heart Rate: 80 Heart Rate: -- Blood Pressure BP: 122/69 BP: (115-130)/(64-80) Respiratory Rate Resp: 18 Resp: [14-18] SpO2 SpO2: 98 % SpO2: [96 %-100 %] Functional and Cognitive Status: Patient mobilizing with left arm elevated, cognitively intact at baseline mental status at time of discharge. Important Lab Data: Last 3 wbc, hgb, hct plt Recent Labs 10/22/18204910/22/185 10/21/18 0341 WBC 12.1* 9.5 15.9* HGB 13.5 13.2 13.3 HCT 41.3 39.7 40.5 PLATELET 414* 372* 349 Last 3 Lytes Recent Labs 10/22/18204910/22/185 10/21/18 0341 NA 138 136 140 K 4.3 4.2 3.8 CL 98 100 103 CO2 27 27 26 BUN 17 11 9 CREATININE 0.78 0.81 0.56* Last 3 LFTs Recent Labs 07/18/18 0538 07/17/18 0055 07/16/18 2305 AST 25 Not Perf Not Perf ALT 38* 63* 62* ALKPHOS 86 112* 106* BILITOT 0.3 0.7 0.8 BILIDIR 0.1 0.1 0.2 Last Ca, Mg, Phos Recent Labs 10/22/182049 CALCIUM 9.7 Last 3 Coags Recent Labs 10/20/18 1333 PT 12.4 INR 1.1 PTT 36 Last CRP, SEDRATE Recent Labs 10/22/18 0455 10/20/18 1333 CRP 33.3* 18.9* SEDRATE -- 14 Lab Results Component Value Date GRAMSTAIN (A) 10/20/2018 Moderate Neutrophils seen Rare Gram Positive Cocci in clusters seen Recent Labs 10/20/18 1333 BLOODCX No growth at 2 days. Studies: Ct Hand W Contrast Left Result Date: 10/19/2018 EXAMINATION: CT HAND W CONTRAST LEFT CLINICAL HISTORY: IVDU with abscess TECHNIQUE: Axial contiguoussections were obtained through the left hand/wrist after the intravenous administration of 100 cc Omnipaque. Coronal and sagittal reconstructions were generated. COMPARISON: None FINDINGS: Extensive sub cutaneous soft tissue swelling/edema. In the soft tissues dorsal to the base of the metacarpal of the from there is an approximately 24 x 31 x 17 mm thick- walled irregular multilocular fluid collectioncontaining a few foci of air. Extending from this area laterally to the dorsum of the wrist is a more elongate obliquely-oriented thick-walled collection at least 25 mm in length, with cross- sectional dimensions of 6 x 4 mm. Then adjacent to this oblong collection dorsal to the wrist is thick-walled multilocular collection approximately 22 x 13 x 5 mm. No appreciable osseous pathology. Multilocular irregular thick-walled fluid contiguous collections compatible with abscess/abscesses, from soft tissues dorsal to the base of the metacarpal of the thumb to soft tissues dorsal to the wrist. Thank you for letting us participate in the care of this patient. For questions regarding this report, please contact the number below. Electronically signed by: Joleen Andrade [facility] ([phone]), at 10/19/2018 7:34 PM Pending Studies and Lab Data at Discharge: None Transfusions: No Discharge Conditions/Prognosis: Stable, awake, and alert. Mobilizing as noted above, pain controlledon oral medications. Discharge to: Home Updated Allergies/ADRs: Allergies Allergen Reactions ??? Chantix [Varenicline] Seizure ??? Duloxetine Hcl ??? Laxative X-Lax ??? Phenolphthalein Other reaction(s): SEIZURES ??? Varenicline Tartrate Other reaction(s): seizure Nausea/Vomiting Immunizations Given this Hospitalization: Immunization History Administered Date(s) Administered ??? Influenza PF, Split 11/25/2014 ??? Tdap Vaccine 09/28/2014 Discharge Medications: Your Medications New Medications Dose Details sulfamethoxazole-trimethoprim 800-160 mg Tab Commonly known as: BACTRIM DS Take 1 tablet by mouth 2 times daily for 11 days. 1 tablet Quantity: 22 tablet Refills: 0 Continued medications, unchanged Dose Details albuterol 90 mcg/actuation Hfaa Inhale [...] iron- 1 mg Tab Generic drug: PNV,calcium 67-icra-gllnn acid Refills: 0 Smoking Status at Discharge: Social History Tobacco Use Smoking Status Former Smoker ??? Packs/day: 0.50 ??? Types: Cigarettes Smokeless Tobacco Never Used Tobacco Comment Has maybe 1 a day or 2 Instructions Given to Patient at Discharge: Please take your antibiotic as prescribed. This is born in helping to clear your known MRSA infection. We recommend that she follow-up with infectious disease team for discussion of definitive antibiotic plan. Thus recommend that she follow-up with orthopedics or plastic surgery team for wound check. He was seen by the psychiatry team here in the hospital. Recommended follow-up with them on outpatient basis to discuss her ongoing anxiety and PTSD symptoms. Lastly we recommend that she follow-up witha primary care physician or other physician who specializes substance-abuse counseling to discuss her opioid use disorder and further Suboxone management. General Instructions Substance Use Treatment and Relapse Prevention Resources ?? Residential Treatment: [facility] [address] [place] [address] ?? [address] [address] ?? Intensive Outpatient Programs: [facility] [address] [place] [address] [facility] [address] ?? Individual Therapy: [facility] [address] [place] [address] or Asya Jj, [facility] [address] [place], [place] [phone] You may also search www.Rebit.[employer] or dial 211 for therapists in your area. ?? Medication Assisted Treatment: [facility] [address] [facility] [address] [facility] [address] [facility], [address] [facility] [address] ?? [facility] [address] ?? Peer Support Groups Alcoholics Anonymous (AA) [place]: , www.nhaa.net Narcotics Anonymous (NA) [place]: , www.Lightwave Logicana.org ?? 211: The Doorway to Recovery [facility] will direct you to the help you need, from screening and evaluation, to treatment including medication-assisted treatment, to long-term recovery supports. The [facility] will also help guide you on the path to self- sufficiency, offering connections to job training and education resources and assistance with food, childcare and transportation.Dial 2-1-1 from anywhere in [place] 28/08to be connected or visit http://www.theHappy DaysorKenandy.ri.gov/ ?? Safe Station Present to any one of the fire stations in [place] or [facility], now designated as ???Safe Stations?? , a place where you can walk in, from anywhere in [place] 28/08, and get connected with substance use treatment services. [facility] Safe Stations Central Fire Station: [address] --- Station 2: [address] Station 3: [address] --- Station 4: [address] Station 5: [address] --- Station 6: [address] Station 7: [address]--- Station 8: [address] [facility] [address] Station 9: [address]--- Station 10: [facility] Safe Stations Station 1: [address] --- Station 2: [address] --- Station 3: [address] Station 4: [address] --- Station 5: [address] -- Station 6: [address] Station 7: [address] [facility]. ?? Additional Resources http://nhtreatment.org/ http://www.Rebit.[employer]/ National Suicide Prevention Hotline: (719) 908-GQMH (6219) Opiate Overdose Prevention: www.prescribetoprevent.org ?? Suboxone Emergency Override There is an emergency override requirement on all medications that require prior insurance authorization. If you experience issues picking up your suboxone prescription at the pharmacy you may request an override. They are required to provide the quantity of suboxone sufficient for 72 hours while the prior insurance authorization is being approved. Primary Care Provider: None None Discharge References/Attachments None Attending: Pt left last evening as noted. We provided RX for abx. Hopefully this will be filled. We will call her today to attempt to get her in for follow-up. Bruno Erickson MD Plastic Surgery documented in this encounter Discharge Instructions Discharge InstructionsHaider Pendleton, MULTI MEDIA SPECIALIST - 10/21/2018 11:46 AM EDT Substance Use Treatment and Relapse Prevention Resources ?? Residential Treatment: [facility] [address] [place] [address] ?? [address] [address] ?? Intensive Outpatient Programs: [facility] [address] [place] [address] [facility] [address] ?? Individual Therapy: [facility] [address] [place] [address] or Asya Jj, [facility] [address] [place], [place] [phone] You may also search www.Rebit.[employer] or dial Personal MedSystems for therapists in your area. ?? Medication Assisted Treatment: [address] [address] [facility] [address] [facility] [facility] [address] ?? [facility] [address] ?? Peer Support Groups Alcoholics Anonymous (AA) [place]: , www.nhaa.net Narcotics Anonymous (NA) [place]: , www.gsana.org ?? 211: The Doorway to Recovery The [facility] will direct you to the help you need, from screening and evaluation, to treatment including medication-assisted treatment, to long-term recovery supports. The [facility] will also help guide you on the path to self- sufficiency, offering connections to job training and education resources and assistance with food, childcare and transportation.Dial 2-1 from anywhere in [place] 28/08to be connected or visit http://www.theHappy DaysorKenandy.ri.gov/ ?? Safe Station Present to any one of the fire stations in [place] or [facility], now designated as ???Safe Stations?? , a place where you can walk in, from anywhere in [place] 28/08, and get connected with substance use treatment services. [facility] Safe Stations Central Fire Station: [address] --- Station 2: [address] Station 3: [address] --- Station 4: [address] Station 5: [address] --- Station 6: [address] Station 7: [address]--- Station 8: [address] [facility] Station 9: [address]--- Station 10: [address] [facility] Safe Stations Station 1: [address] --- Station 2: [address] --- Station 3: [address] Station 4: [address] --- Station 5: [address] -- Station 6: [address] Station 7: [address] ?? Additional Resources http://nhtreatment.org/ http://www.Rebit.com/ National Suicide Prevention Hotline: (262) 709-KCXZ (6259) Opiate Overdose Prevention: www.prescribetoprevent.org ?? Suboxone Emergency Override There is an emergency [...] Sig Dispensed Refills Start Date End Date sulfamethoxazole-trimethop Take 1 tablet by 22 tablet 0 11/03/2018 rim (BACTRIM DS) 800-160 mouth 2 times daily mg Tablet for 11 days. buprenorphine-naloxone Place 8 mg of 0 [...] documented as of this encounter Progress Notes Richard Block MD - 10/23/2018 12:30 AM EDT Infectious Disease Brief Note Ms. Kovacs unfortunately left AMA. I agree with the choice of TMP/SMX 1 tab bid for her MRSA hand abscesses, which the primary team prescribed, but I worry that a total treatment duration of 14 days might not be enough as not all abscesses were drained. I am asking our office to reach out to Ms. Kovacs and to schedule her for a clinic appointment in the next two weeks. Richard Block MD Infectious Disease Attending Kar Hernandez RN - 10/23/2018 12:27 AM EDT Patient wanting to leave AMA and stated that the only time she could get a ride was now. Charge nurse and care team notified and at bedside to talk with patient. Patient wanted to come back in the morning for follow up IV antibiotics, explained about leaving AMA and difficulties with her plan. IV removed, prescription given to patient from MD. Paper work signed by MD sujey and nurse. Patient left at 0025. Bruno Erickson MD - 10/23/2018 12:25 AM EDT I spoke with Ms. Kovacs at bedside this evening concerning her wish to leave the hospital AGAINST MEDICAL ADVICE. Patient had previously had a long discussion with Dr. Schwab about the same. She is unable to offer a specific reason for her wanting to leave at this time only that she cannot stay here. We discussed that it is my recommendation that she remain in the hospital for continued observationof her left hand abscess. She is currently continuing on IV antibiotic therapy. While we hope to transition her to a p.o. regimen soon we do not have a definitive long-term antibiotic plan in place forher at this time. We discussed that without a definitive plan in place and with her ongoing infection she is at risk for worsening of her localized infection or systemic spread of this infection and the myriad medical problems of which both of these can cause including but not limited to ultimately loss of limb or . She acknowledged these risks and elected to leave AGAINST MEDICAL ADVICE. She was given a prescription for p.o. Bactrim double strength. The prescription was written for 11 days thus giving her a total of 14 days of antibiotic coverage f/u her I&D for her known abscess of whichcx data suggest is due to MRSA. I discussed with her that she should contact the infectious disease department in the morning to discuss a definitive antibiotic regimen. We discussed that she should contact the psychiatry department for outpatient follow-up in regard to her anxiety and PTSD symptoms. We discussed that we would like to see her in follow-up for wound check. She acknowledged these recommendations and indicated that she would do her best to follow-up on these. She left AGAINST MEDICAL AD VICE at 12:25 AM on 10/23/18. Dylan Mullins MD Attending: Will work to contact patient to have approriate f/u. She has substance abuse challenges and will reach out to support her in treating her hand infection. Bruno Erickson MD Plastic Surgery Thania Del Valle MSW - 10/22/2018 4:41 PM EDT OFFICE OF CARE MANAGEMENT PSYCHOSOCIAL PROGRESS NOTE Per request of medical team and RNCN, met with pt to discuss psychosocial issues. Pt accepted the [facility] resource and said is planning to call their hot- line. Pt had expressed concerns for her safety if she returned to the [facility]. Pt refused the services of ALEXIS (SHALE PLANER OPERATOR HELPER in contact with Haylee Galvan RN about pt). Pt has met with Danii and said she wants to be discharged to a substance abuse treatment program. [facility] provided pt with names of treatment programs and pt said she wants to call the [facility]. Has been waiting to call until her Medicaid is re-activated as was told if she had pending Medicaid then programs more likely to accept her. SHALE PLANER OPERATOR HELPER contacted [facility] and shared information and requested to meet with pt. Bruno Erickson MD - 10/22/2018 6:13 AM EDT ORTHOPAEDIC SURGERY INPATIENT PROGRESS NOTE Patient Name: Shirlene Kovacs Age: 33 y.o. Surgery/Issue: L hand dorsal abscess Attending: Dre Date of surgery: Bedside I+D in ED 10/20 SUBJECTIVE / INTERVAL HISTORY: Patient sleepy to exam this morning, pain well controlled Notes that swelling in L hand has been improving Denies any fever / chills WBC 9.5 CRP 33.3 FOCUSED REVIEW OF SYSTEMS: as above. Active Hospital Problems Diagnosis ??? Abscess of dorsum of left hand Resolved Hospital Problems No resolved problems to display. Active Non-Hospital Problems Diagnosis ??? Leukocytosis ??? Rubella non-immune status, antepartum ??? History [...] ??? Smoking ??? Hodgkin's disease in remission MEDICATIONS: ??? Vancomycin Level - MAR Order Reminder ??? nicotine (NICODERM CQ) 14 mg/24 hr patch 14 mg AND nicotine (NICODERM CQ) 14 mg/24 hr patch Patch Verification AND nicotine (NICODERM CQ) 14 mg/24 hr patch Patch Removal ??? LORazepam (ATIVAN) tablet 0.5 mg ??? buprenorphine-naloxone (SUBOXONE) 8-2 mg sublingual tablet 1 tablet ??? HYDROmorphone (DILAUDID) tablet 2-4 mg ??? gabapentin (NEURONTIN) capsule 300 mg ??? nicotine polacrilex (NICORETTE) gum 2 mg ??? ibuprofen (ADVIL;MOTRIN) tablet 600 mg ??? levothyroxine (SYNTHROID) tablet 75 mcg ??? polyethylene glycol (MIRALAX) packet 17 g ??? sodium chloride 0.9 % (flush) flush 5 mL ??? sodium chloride 0.9 % (flush) flush 5-20 mL ??? lidocaine (XYLOCAINE) 10 mg/mL (1 %) injection 3 mg ??? polyethylene glycol (MIRALAX) packet 17 g ??? senna-docusate (PERICOLACE) 8.6-50 mg per tablet 2 tablet ??? ondansetron (ZOFRAN) injection 4 mg ??? [COMPLETED] vancomycin 1.5 g in sodium chloride 0.9% 250 mL FOLLOWED BY vancomycin 1 g in 0.9 % sodium chloride 200 mL OBJECTIVE: Temp: [36.5 ??C (97.7 ??F)-37 ??C (98.6 ??F)] Resp: [16-18] BP: (104-139)/(63-84) Intake/Output Summary (Last 24 hours) at 10/22/2018 0613 Last data filed at 10/22/2018 0357 Gross per 24 hour Intake 150 ml Output -- Net 150 ml BMI: Weight: 69.4 kg (153 lb) (10/20/18 1138) BMI (Calculated): 22.59 BMI Classification: Normal Weight Body mass index is 22.59 kg/m??. PE: General: awake/alert, responds to questions CV: RRR assessed peripherally Resp: Breathing comfortably on RA LUE: Left hand dorsal incision no longer draining. Has improved swelling to her hand and erythema appearsto be improving. Sensation intact to light touch in ax/r/m/u distributions Motor intact to wrist flexion/extension, digit flexion/extension Brisk capillary refill distally, fingers warm/well-perfused. Lab Results Component Value Date NA 136 10/22/2018 K 4.2 10/22/2018 CL 100 10/22/2018 CO2 27 10/22/2018 BUN 11 10/22/2018 CREATININE 0.81 10/22/2018 GLUCOSE 103 10/22/2018 CALCIUM 9.1 10/22/2018 Lab Results Component Value Date WBC 9.5 10/22/2018 HGB 13.2 10/22/2018 HCT 39.7 10/22/2018 MCV 95.9 (H) 10/22/2018 PLATELET 372 (H) 10/22/2018 Lab Results Component Value Date INR 1.1 10/20/2018 IMAGING: None Cultures: MRSA growth from abscess obtained 10/20 ASSESSMENT / PLAN: Shirlene Kovacs is a 33 y.o. female with L hand dorsal abscess in the setting of IVDU. She was given a bedside I+D in the ED on 10/20. WBC normalizing, CRP elevated. BIT team, APS, and ID are involved. Appreciate recs. Based on improving WBC and physical exam, we think she will be appropriate for more conservative treatment through IV and PO antibiotics. Will touch base with ID about possibly switching to PO antibiotics tomorrow. - Activity: NWB LUE in sling - Antibiotics: V, ID consult. Plan to switch to orals. - DVT px: ASA daily - Pain control: APS consult - Dressings: Krelex, elevate - Diet: Will feed today - Dispo: Per PT /OT. Nancy Gordon MD 10/22/2018 No future appointments. Attending: Pt seen and examined with RN present. She is much improved. HEr WBC is now 9.5 and her erythema and edema are improved. Awaiting recs from ID for oral abx. She would like to go to rehab and I discussed this with the team to help coordinate. We can certainly have her come from rehab for appts. Continue elevation. I agree with the plan as outlined. Bruno Erickson MD Plastic Surgery Zeenat Humphreys RN - 10/21/2018 12:34 PM EDT Pt returned to floor with BIT team, will continue to monitor. Zeenat Humphreys RN - 10/21/2018 12:23 PM EDT Pt off floor in care of BIT team. Ximena Patterson RN - 10/21/2018 9:32 AM EDT Met with patient at the request of Dr. Erickson to discuss concerns of the patient regarding her dressing changes and care by the team. Spoke to patient and asked if she had a preference of provider gender based on her stating she has PTSD. She states that gender of provider is not an issue and she does not have a preference and that her anxiety is due to the anticipation of the interventions at the bedside. She says that something aslittle as drawing blood provokes her anxiety and fear of being in the hospital, so something like a bedside dressing change causes a complete anxiety attack. She feels that when she is in the operatingroom and sedated she does not have any anxiety with the dressing change because she does not have harish aware of what is happening around her. Patient does understand that she can not go to the OR for each dressing change as the dressing change is appropriate at the bedside per her medical team. Afterspeaking to the patient regarding her anxiety and fears she did agree to see the BIT team today to help with strategies to decrease her anxiety and stress. RN and Medical team will coordinate to involve the BIT team in the patients care. Bruno Erickson MD - 10/21/2018 6:42 AM EDT ORTHOPAEDIC SURGERY INPATIENT PROGRESS NOTE Patient Name: Shirlene Kovacs Age: 33 y.o. Surgery/Issue: L hand dorsal abscess Attending: Dre Date of surgery: Bedside I+D in ED 10/20 SUBJECTIVE / INTERVAL HISTORY: Patient on IV abx, slept well during the night WBC 15.9 Maintained her arm in stocking net elevated Does endorse chills, afebrile ON Attempted to replace the wick this morning but patient was unable to tolerate the procedure due to her incredible anxiety FOCUSED REVIEW OF SYSTEMS: as above. Active Hospital Problems Diagnosis ??? Abscess of dorsum of left hand Resolved Hospital Problems No resolved problems to display. Active Non-Hospital Problems Diagnosis ??? Leukocytosis ??? Rubella non-immune status, antepartum ??? History [...] ??? Smoking ??? Hodgkin's disease in remission MEDICATIONS: ??? [START ON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 move back to [place] for substance use treatment and for family and peer support. Medication Assisted Treatment Plan (select yes if referral reason indicates AUD, OUD or ROLAND - other): Yes. Substance use of focus: Opioid. Was patient already on a medication to treat OUD prior to admission? Yes. Prescribed buprenorphine, street buprenorphine, methadone, naltrexone. Patient also reports receiving buprenorphine 8 mg at [facility] on 10/19 just prior to D-H admission on 10/20. Discharge Planning Needs: MAT prescriber buprenorphine prescription At time of discharge patient may require a buprenorphine script to bridge to outpatient MAT appointment, please page Psychiatry at [phone] for assistance with this. Time spent with the patient (min):45 minutes Time spent on case coordination (min): 15 minutes Plan of Care - Kar Hernandez RN - 10/21/2018 2:09 AM EDT OUTCOME EVALUATION NOTE: OUTCOME SUMMARY: Patient arrived to floor around 2029. Vital signs stable and patient alert and oriented throughout shift. Able to ambulate to bathroom independently with IV pole. IV ABX infusing. Left arm elevated onto IV pole and wrapped in ZANE wrap. No numbness or tingling to extremity. Call samson within reach and patient ringing approrpaitely. Will continue to monitor. PLAN MOVING FORWARD: Mobilization, pain control, IV ABX, discharge INDIVIDUALIZED FALL PREVENTION INTERVENTIONS: Patient-specific fall risk factors per assessment: IV tubing, hospital environment Assistance: Independent Supervision: Independent Surveillance: Bed locked in low position, call samson within reach, purposeful hourly rounding, clutter free environment, bed/chair alarm on Patient-specific fall prevention interventions for sensory deficits provided: Yes CPG GOAL OUTCOME EVALUATION: Continue care plan as documented. Consult Note - Tricia Saleh [facility] - 10/20/2018 9:18 PM EDT Clinical Pharmacist Note-Vancomycin Shirlene Kovacs [id number] Shirlene Kovacs is a 33 y.o. female is being monitored due to antibiotic therapy which includes intravenous vancomycin. Regimen: Vancomycin 1000 mg every 8 hours Indication: empiric coverage of L hand abscess Targeted Goal Range: 15 - 20 mcg/mL Pharmacokinetic information: Wt Readings from Last 1 Encounters: 10/20/18 69.4 kg (153 lb) Ht Readings from Last 1 Encounters: 10/20/18 175.3 cm (5' 9) Labs: Creatinine clearance: Creatinine (mg/dL) Date Value 10/20/2018 0.51 (L) Estimated Half-Life (T1/2) = 7 hours: Estimated Volume of distribution (Vd) = 49 Liters Recommendations: Dosing recommendations: ?? Based on this information a dose of 1000 mg every 8 hours, to start at next scheduled dose following 1500 mg dose should achieve an estimated trough level of 15 - 20 mcg/mL. Monitoring recommendations: ?? A new steady state level should be achieved after 4 half-lives. I suggest rechecking a vancomycintrough level (30 minutes prior to a scheduled dose) at 05:30 (time) on 10/22/18. We will continue to monitor the patient as long as she remains on vancomycin therapy. Please watch SCr, BUN and fluid status closely. Please page the care area pharmacist with any questions you may have. Alternately, during off-hours you may call [phone] to contact a pharmacist. TRICIA SALEH RPH Consult Note - Bruno Erickson MD - 10/20/2018 3:00 PM EDT Images from the original note were not included. Orthopaedic Emergency Department Note Attending: Dre Kovacs is a 33 y.o. female who presents to see us in consultation today at the request of Dinesh Carreon MD for L hand abscess. Chief Complaint: L dorsal hand abscess History of Present Illness: Shirlene Kovacs is a 33 y.o. female who presents with L hand dorsal abscess. She has a history of IVDU and tends to inject on the dorsal aspect of her thumb. Last used 6 days ago. Notes increased swelling to her left hand for over a month, worse in the last few days. Does endorse fevers and chills. No numbness or tingling in her LUE. She [facility]ially went [facility] for evaluationon Sunday but left AMA. She presented to [facility] yesterday and was transferred here for further management. She has received vanc and zosyn in the ED at . Of note, patient is hep C positive. Past Medical History: Patient Active Problem List Diagnosis Code ??? [...] antepartum O99.89, Z28.3 ??? Leukocytosis D72.829 Past Surgical History: Past Surgical History: Procedure Laterality Date ??? FINGER FRACTURE SURGERY ??? LEEP ??? PRO COLONOSCOPY, BIOPSY 08/20/2013 COLONOSCOPY FLEXIBLE, WITH BX performed by Ugo Reed MD at [facility] ENDOSCOPY ??? PRO COLONOSCOPY, DIAGNOSTIC 08/20/2013 COLONOSCOPY, DIAGNOSTIC performed by Ugo Reed MD at [facility] ENDOSCOPY ??? PRO COLONOSCOPY, REMV LESN, SNARE 08/20/2013 COLONOSCOPY, POLYPECTOMY, REMOVAL LESION BY SNARE performed by Ugo Reed MD at [facility] ENDOSCOPY ??? PRO ENDOSCOPIC US EXAM, ESOPH 08/20/2013 UPPER EUS- ENDOSCOPIC ULTRASOUND performed by Ugo Reed MD at [facility] ENDOSCOPY ??? PRO UPPER GI ENDOSCOPY, DIAGNOSTIC 08/20/2013 EGD, UPPER GI ENDOSCOPY performed by Ugo Reed MD at [facility] ENDOSCOPY ??? SKIN BIOPSY HEAD/NECK ??? TUNNELED VENOUS CATHETER PLACEMENT Allergies Allergen Reactions ??? Chantix [Varenicline] Seizure ??? Duloxetine Hcl ??? Laxative X-Lax ??? Phenolphthalein Other reaction(s): SEIZURES ??? Varenicline Tartrate Other reaction(s): seizure Nausea/Vomiting No current facility-administered medications on file prior [...] Take 15 mg by mouth as needed. Home medications: (Not in a hospital admission) Family History: Family History Problem Relation Age of Onset ??? Cancer Other Hodgkin lymphoma in maternal cousin ??? 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 Packs/day: 0.50 ??? Types: Cigarettes Smokeless Tobacco Never Used Tobacco Comment Has maybe 1 a day or 2 Review of Systems: As per HPI, otherwise negative Objective: Temp: [36.7 ??C (98.1 ??F)] Heart Rate: [70] Resp: [20] BP: (107)/(66) SpO2: [97 %] Heart Rate from SpO2: -- Gen- NAD, awake, alert, appr HEENT- NC, AT CV- RRR checked peripherally Pulm- No incr WOB Skin- Intact Psych- Nl mood and affect Left Upper Extremity Exam- Patient has significant swelling and erythema to her left dorsal hand and palmar hand. Please see picture. There is a scab over the radial dorsal aspects of her hand above the level of the hamate. She has fluctuance present, significant pain to palpation. Fusiform swelling to her digits. Pain with flexion extension of her digits, but she is able to tolerate it. Painless range of motion of shoulder elbow some discomfort with. Rotation of her wrist. Sensation intact to light touch in Ax/M/R/U/LABC distributions Motor intact (5/5) shoulder abduction, elbow flexion/extension, wrist flexion/extension, volunteer patient representative, AIN, IO. EPL functions, but patient is not willing to move it due to discomfort. Brisk capillary refill distally 2+ radial pulse Imaging: CT left hand: Multilocular irregular thick-walled fluid contiguous collections compatible with abscess/abscesses, from soft tissues dorsal to the base of the metacarpal of the thumb to soft tissues dorsal to the wrist. Procedures: Patient was given 1% lidocaine superficially to the dorsal radial aspect of her hand, in order to numb there is superficial cutaneous radial nerve. The area was then thoroughly cleansed with ChloraPrep. A 10 blade was used to make a 1 cm incision at the center of the erythema and fluctuance. Hemostat was then used to spread down to fascia. After angling hemostat ulnarly, further pressure was noted. At that point, copious amounts of yellow purulent material began to express from the hand. I expressedas much of the purulent material as possible from the dorsal tissue the hand, but the patient was having difficulty tolerating the procedure due to anxiety. A dry wick was then stuffed within the loculated area of purulence. 4 x 4's were placed over the incision for hemostasis, the hand was then wrapped with Kerlix. A volar resting splint was made and the patient was elevated from her hand with an IVpole. The patient was given Ativan prior to the procedure, but it did not help her anxiety. Patient tolerated the procedure well, felt better after the removal of the purulent material. Appeared to have improved motion of her thumb with EPL. Assessment/Plan: 33 y.o. female who presents with L Dorsal hand abscess from IVDU. Plan to admit to ortho for IV abx. - Activity- NWB LUE w/ elevation - DVT prophylaxis- None - Antibiotics: V+Z Nancy Gordno MD Orthopaedic Surgery Attending: Plan discussed and agree as documented. Will plan for bedside drainage. Cultures, admission and IVABX Bruno Erickson MD Plastic Surgery ED Triage - Aileen Reed RN - 10/20/2018 11:39 AM EDT Pt BIB EMS from [facility] for abscess to L hand. Pt arrives alert and orientated. Speaking in full sentences. Swelling and redness noted to L hand. Respiraitons even and non labored. Skin p/w/d. NAD a this time. documented in this encounter Plan of Treatment Not on filedocumented as of this encounter Procedures Procedure Name Priority Date/Time Associated Comments Diagnosis HEMOGRAM Routine 10/22/2018 8:50 PM Results f or this EDT procedure are i n the results section. DIFFERENTIAL, AUTOMATED Routine 10/22/2018 8:50 PM Results for this EDT procedure are i n the results section. HC HCV GENOTYPING Routine 10/22/2018 8:50 PM Resu lts for this EDT procedure are i n the results section. HC HCV QUANTIFICATION Routine 10/22/2018 8:50 PM Results for this EDT procedure are i n the results section. HC CBC,PLT & AUTO DIFF Routine 10/22/2018 8:50 PM EDT BASIC METABOLIC PANEL Routine 10/22/2018 8:50 PM Results for this (NON-FASTING) EDT procedure are in the results section. HC C-REACTIVE PROTEIN Routine 10/22/2018 4:55 AM Results for this EDT procedure are i n the results section. HEMOGRAM Routine 10/22/2018 4:55 AM Results f or this EDT procedure are i n the results section. DIFFERENTIAL, AUTOMATED Routine 10/22/2018 4:55 AM Results for this EDT procedure are i n the results section. HC HIV SCREEN, 4TH Routine 10/22/2018 4:55 AM Res ults for this GENERATION EDT procedure are i n the results section. HC CBC,PLT & AUTO DIFF Routine 10/22/2018 4:55 AM EDT HC VANCOMYCIN Timed 10/22/2018 4:55 AM Results for this EDT procedure are i n the results section. BASIC METABOLIC PANEL Routine 10/22/2018 4:55 AM Results for this (NON-FASTING) EDT procedure are in the results section. HEMOGRAM Routine 10/21/2018 3:41 AM Results f or this EDT procedure are i n the results section. DIFFERENTIAL, AUTOMATED Routine 10/21/2018 3:41 AM Results for this EDT procedure are i n the results section. HC CBC,PLT & AUTO DIFF Routine 10/21/2018 3:41 AM EDT BASIC METABOLIC PANEL Routine 10/21/2018 3:41 AM Results for this (NON-FASTING) EDT procedure are in the results section. HC WOUND/ABSCESS CX STAT 10/20/2018 6:11 PM Re sults for this EDT procedure are i n the results section. HC C-REACTIVE PROTEIN STAT 10/20/2018 1:33 PM Results for this EDT procedure are i n the results section. HEMOGRAM STAT 10/20/2018 1:33 PM Results f or this EDT procedure are i n the results section. DIFFERENTIAL, AUTOMATED STAT 10/20/2018 1:33 PM Results for this EDT procedure are i n the results section. GOLD TUBE HOLD STAT 10/20/2018 1:33 PM Results for this EDT procedure are i n the results section. HC BLOOD CULTURE- STAT 10/20/2018 1:33 PM Resu lts for this EDT procedure are i n the results section. HC PARTIAL STAT 10/20/2018 1:33 PM Results f or this THROMBOPLASTIN TIME EDT procedur e are in the results section. HC ESR-SEDIMENTATION STAT 10/20/2018 1:33 PM R esults for this RATE, BLOOD EDT procedure are i n the results section. HC PROTHROMBIN TIME STAT 10/20/2018 1:33 PM Re sults for this EDT procedure are i n the results section. HC CBC,PLT & AUTO DIFF STAT 10/20/2018 1:33 PM EDT BASIC METABOLIC PANEL STAT 10/20/2018 1:33 PM Results for this (NON-FASTING) EDT procedure are in the results section. RAPID DRUG SCREEN, STAT 10/20/2018 12:23 Resul ts for this URINE (IMELDA REQUEST) PM EDT procedur e are in the results section. RAPID DRUG SCREEN W/O STAT 10/20/2018 12:23 Re sults for this CONFIRMATION, URINE PM EDT procedur e are in the results section. URINALYSIS WITH REFLEX STAT 10/20/2018 12:23 R esults for this CULTURE PM EDT procedure are i n the results section. documented in this encounter Results (ABNORMAL) Differential, Automated (10/22/2018 8:50 PM EDT) [facility] Method Time Signature Neutrophils % 59.0 % [facility] Neutr Abs (ANC) 7.16 (H) 1.70 - [facility] 6.10 [facility] x10(3)/[facility] LABORATORY Lymphocytes % 31.9 % [facility] Lymphocytes Abs 3.9 (H) 0.9 - 3.2 [facility] x10(3)/[facility] LABORATORY Monocytes % 5.8 % [facility] Monocyte Abs 0.7 0.3 - 0.9 [facility] x10(3)/[facility] LABORATORY Eosinophils % 1.9 % [facility] Eosinophils Abs 0.2 0.0 - 0.4 [facility] x10(3)/[facility] LABORATORY Basophils % 0.8 % [facility] Basophils Abs 0.1 0.0 - 0.1 [facility] x10(3)/[facility] LABORATORY Immature Gran % 0.60 % [facility] Comment: Immature granulocytes(IG's)percentage an d absolute count will include metamyelocytes, myelocytes, and promyelo cytes. Blood smears from CBCs yielding IG's will be scanned manually for concor dance. If this scan disagrees with the automated IG or if promyelocytes are not ed, a manual differential will be performed. Ayah Gran Abs 0.07 (H) 0.00 - 0.04 x10(3)/[facility] LABORATORY Specimen Anatomical Collection Method Collection Time Receive d Time (Source) Location / / Volume Laterality Blood specimen 10/22/2018 8:50 PM 019 9:05 (specimen) EDT PM EDT Resulting Agency Comment Spec In Lab Nancy Gordon MD HEMATOLOGY ORDERABLES Performing Organization Address City/State/[place] [address] (ABNORMAL) Hemogram (10/22/2018 8:50 PM EDT) Analysis Performed At Patho logis Time Signature WBC 12.1 (H) 4.0 - 9.5 [facility] x10(3)/[facility] LABORATORY RBC 4.32 4.00 - [facility] 5.21 [facility] x10(6)/[facility] LABORATORY Hemoglobin 13.5 11.7 - [facility] 15.5 gm/dL [facility] Hematocrit 41.3 35.7 - [facility] 45.8 % [facility] MCV 95.6 (H) 82.6 - [facility] 94.4 [facility] LAB[facility]ATORY MCH 31.3 27.1 - [facility] 32.0 pg [facility] MCHC 32.7 31.7 - [facility] 35.0 gm/dL [facility] Platelets 414 (H) 145 - 357 [facility] x10(3)/[facility] LABORATORY RDWSD 41.1 37.0 - [facility] 46.0 [facility] LABORATORY RDWCV 11.7 11.5 - [facility] 14.1 % [facility] MPV 9.6 7.6 - 12.9 [facility] LABORATORY nRBC % Auto 0.0 % [facility] nRBC Abs Auto 0.000 0.000 - [facility] 0.000 [facility] x10(3)/[facility] LABORATORY Specimen Anatomical Collection Method Collection Time Receive d Time (Source) Location / / Volume Laterality Blood specimen 10/22/2018 8:50 PM 019 9:05 (specimen) EDT PM EDT Resulting Agency Comment Spec In Lab Nancy Dennis Gordon MD HEMATOLOGY ORDERABLES Performing Organization Address City/State/[place] [address] Basic Metabolic Panel (non-fasting) (10/22/2018 8:50 PM EDT) P athologist Signature Glucose Lvl 98 65 - 199 [facility] mg/dL [facility] Comment: Diabetes: >=200 mg/dL plus symp toms BUN 17 8 - 18 mg/dL [facility] Creatinine 0.78 0.70 - 1.20 mg/dL [facility] Sodium 138 135 - 145 mmol/L [facility] Potassium 4.3 3.5 - 5.0 mmol/L [facility] Comment: Please note: ??Patients with WBC >100,00 0 may have falsely elevated Potassium levels. ??For accurate Potassium quantif ication in these patients send serum separator tube (gold top) for subsequent determinations. ??Contact the Clinical Chemistry Laboratory if there are any qu estions. Chloride 98 98 - 107 mmol/L [facility] CO2 27 22 - 31 mmol/L [facility] Anion Gap 13 5 - 15 mmol/L [facility] Calcium 9.7 8.5 - 10.5 mg/dL [facility] Estimated GFR 101 >=60 mL/min/1.73 m?? [facility] Comment: The eGFR was calculated using the CKD-EP I equation. As with all creatinine based estimates of kidney function, eGFR values calculated with the CKD-EPI equation are not accurate in patients wi th acute kidney failure, extremes of body mass or the acutely ill. [email or web address] Star/[email or web address] eGFR 117 >=60 mL/min/1.73 m?? [facility] Comment: The eGFR was calculated using the CKD-EP I equation. As with all creatinine based estimates of kidney function, eGFR values calculated with the CKD-EPI equation are not accurate in patients wi th acute kidney failure, extremes of body mass or the acutely ill. [email or web address] [email or web address] Specimen Anatomical Collection Method Collection Time Receive d Time (Source) Location / / Volume Laterality Blood specimen 10/22/2018 8:50 PM 019 9:05 (specimen) EDT PM EDT Resulting Agency Comment Spec In Lab Cristiane Richard MD CHEMISTRY ORDERABLES Performing Organization Address City/State/[place] [address] Hepatitis C genotype (10/22/2018 8:50 PM EDT) Component Value Ref Test Analysis Performed At [facility] Range Method Time Signature HCV Genotype Indication for study [facility] Hepatitis C Infection [facility] 1a LABORATORY Interpretation: The genotyping analysis has identified t he presence of hepatitis C virus (HCV) genotype 1a in the submitted specimen. R esponse to some antiviral therapies is genotype dependent. Please refer to current practice guideli phan and pharmaceutical product inserts for specific recommenda tions on treating this particular HCV genotype. Method: The HCV genotyping was carried out using [employer] eSens or?? HCVg Direct Test. Briefly, nucleic acid isolated from plasma is subjected to a multiplexed reverse transcriptase PCR followed by a direct analysis on the electrochemical eSensor XT-8 detection system for the id entification of HCV genotypes. The HCV genotypes/subtypes detected by this method include 1a, 1b, 2a/c, 2b, 3, 4, 5 and 6. Disclaimer: This test was developed and its performance frederick acteristics determined by the Clinical Genomics and Advanc ed Technology (CGAT) Laboratory at [facility]. It has not been cleared or approved by the FDA. The laboratory is regulated under CLIA as qualified to perform high-complexity testing. This lauro t is used for clinical purposes. It should not be regarded as investigational or fo r research. Comment: [VERIFIED DATE]10.29.18 Verified By:Pilo Flores (Electronic Signature) Specimen Anatomical Collection Method Collection Time Receive d Time (Source) Location / / Volume Laterality Blood specimen 10/22/2018 8:50 PM 019 (specimen) EDT 10:59 AM EDT Resulting Agency Comment Spec In Lab Bruno Erickson MD IMMUNOLOGY ORDERABLES Performing Organization Address City/State/[place] [address] Hepatitis C RNA, quantitative, PCR (10/22/2018 8:50 PM EDT) Component Value Ref Test Analysis Performed At [facility] Range Method Time Signature HCV Viral 869,571 IU/mL [facility] LABORATORY HCV Viral Result: [id number] IU/mL [facility] Indication for Study: Hepatitis C Infection [facility] Analysis: The [employer] RealTime HCV assay is an in vitro reverse raise miner LABORATORY polymerase chain reaction (RT-PCR)for the quantitation of hepatitis C viral (HCV) RNA in human serum or plasma (EDTA) from HCV-infected indivi duals. Sample: plasma (0.7 mL minimum volume) Method: [employer] RealTime HCV Assay Linear Range: 12 IU/mL - 100,000,000IU/mL Note: The [employer] RealTime HC V Assay has been approved by the U.S. Food and Drug Administration. Comment: [VERIFIED DATE]10.29.18 Verified By:Laure Bowling (Electronic Signature) Specimen Anatomical Collection Method Collection Time Receive d Time (Source) Location / / Volume Laterality Blood specimen 10/22/2018 8:50 PM 019 (specimen) EDT 10:59 AM EDT Resulting Agency Comment Spec In Lab Bruno Erickson MD IMMUNOLOGY ORDERABLES Performing Organization Address [facility] [place] [address] (ABNORMAL) CRP, acute inflammation (10/22/2018 4:55 AM EDT) P athologist Signature CRP 33.3 (H) <=4.9 mg/L [facility] Specimen Anatomical Collection Method Collection Time Receive d Time (Source) Location / / Volume Laterality Blood specimen 10/22/2018 4:55 AM 019 5:08 (specimen) EDT AM EDT Resulting Agency Comment Spec In Lab Bruno Erickson MD CHEMISTRY ORDERABLES Performing Organization Address [facility] [place] [address] Vancomycin, trough (10/22/2018 4:55 AM EDT) P athologist Signature Vanc Trough 10.8 mg/L [facility] Comment: Therapeutic range for complicated infect ions such as bacteremia, endocarditis, osteomyelitis, meningitis, and hospital- acquired pneumonia caused by S. aureus: 15-20 mg/L Therapeutic range for other indications: 10-15 mg/L Toxic: >20 mg/L Reference: Vancomycin Therapeutic Monitoring: Valorie w and Recommendations from the ASHP, IDSA and SIDP Task Force. ??Am J Health- Syst Pharm. 2009; 66:82-98 Specimen Anatomical Collection Method Collection Time Receive d Time (Source) Location / / Volume Laterality Blood specimen 10/22/2018 4:55 AM 019 5:08 (specimen) EDT AM EDT Resulting Agency Comment Spec In Lab Bruno Erickson MD CHEMISTRY ORDERABLES Performing Organization Address City/[facility]/[place] [address] (ABNORMAL) Differential, Automated (10/22/2018 4:55 AM EDT) [facility] Method Time Signature Neutrophils % 51.7 % [facility] Neutr Abs (ANC) 4.89 1.70 - [facility] 6.10 [facility] x10(3)/[facility] LABORATORY Lymphocytes % 35.2 % [facility] Lymphocytes Abs 3.3 (H) 0.9 - 3.2 [facility] x10(3)/[facility] LABORATORY Monocytes % 9.0 % [facility] Monocyte Abs 0.8 0.3 - 0.9 [facility] x10(3)/[facility] LABORATORY Eosinophils % 2.5 % [facility] Eosinophils Abs 0.2 0.0 - 0.4 [facility] x10(3)/[facility] LABORATORY Basophils % 1.0 % [facility] Basophils Abs 0.1 0.0 - 0.1 [facility] x10(3)/[facility] LABORATORY Immature Gran % 0.60 % [facility] Comment: Immature granulocytes(IG's)percentage an d absolute count will include metamyelocytes, myelocytes, and promyelo cytes. Blood smears from CBCs yielding IG's will be scanned manually for concor dance. If this scan disagrees with the automated IG or if promyelocytes are not ed, a manual differential will be performed. Ayah Gran Abs 0.06 (H) 0.00 - 0.04 x10(3)/[facility] LABORATORY Specimen Anatomical Collection Method Collection Time Receive d Time (Source) Location / / Volume Laterality Blood specimen 10/22/2018 4:55 AM 019 5:08 (specimen) EDT AM EDT Resulting Agency Comment Spec In Lab Nancy Gordon MD HEMATOLOGY ORDERABLES Performing Organization Address City/State/[place] [address] (ABNORMAL) Hemogram (10/22/2018 4:55 AM EDT) Analysis Performed At Patho logist Time Signature WBC 9.5 4.0 - 9.5 [facility] LABORATORY RBC 4.14 4.00 - [facility] 5.21 [facility] x10(6)/[facility] LABORATORY Hemoglobin 13.2 11.7 - [facility] 15.[facility] gm/dL [facility] Hematocrit 39.7 35.7 - [facility] 45.8 % [facility] MCV 95.9 (H) 82.6 - [facility] 94[facility]4 [facility] LABORATORY MCH 31.9 27.1 - [facility] 32.0 pg [facility] MCHC 33.2 31.7 - [facility] 35.0 gm/dL [facility] Platelets 372 (H) 145 - 357 [facility] x10(3)/[facility] LABORATORY RDWSD 41.6 37.0 - [facility] 46.0 [facility] LABORATORY RDWCV 11.8 11.5 - [facility] 14.1 % [facility] MPV 9.3 7.6 - 12.9 [facility] LABORATORY nRBC % Auto 0.0 % [facility] nRBC Abs Auto 0.000 0.000 - [facility] 0.000 [facility] x10(3)/[facility] LABORATORY Specimen Anatomical Collection Method Collection Time Receive d Time (Source) Location / / Volume Laterality Blood specimen 10/22/2018 4:55 AM 019 5:08 (specimen) EDT AM EDT Resulting Agency Comment Spec In Lab Nancy Gordon MD HEMATOLOGY ORDERABLES Performing Organization Address City/State/[place] [address] Basic Metabolic Panel (non-fasting) (10/22/2018 4:55 AM EDT) P athologist Signature Glucose Lvl 103 65 - 199 [facility] mg/dL [facility] Comment: Diabetes: >=200 mg/dL plus symp toms BUN 11 8 - 18 mg/dL [facility] LAB[facility]ORY Creatinine 0.81 0.70 - 1.20 mg/dL [facility] LABOR[facility]ORY Sodium 136 135 - 145 mmol/L [facility] Potassium 4.2 3.5 - 5.0 mmol/L [facility] Comment: Please note: ??Patients with WBC >100,00 0 may have falsely elevated Potassium levels. ??For accurate Potassium quantif ication in these patients send serum separator tube (gold top) for subsequent determinations. ??Contact the Clinical Chemistry Laboratory if there are any qu estions. Chloride 100 98 - 107 mmol/L [facility] CO2 27 22 - 31 mmol/L [facility] Anion Gap 9 5 - 15 mmol/L [facility] Calcium 9.1 8.5 - 10.5 mg/dL [facility] Estimated GFR 96 >=60 mL/min/1.73 m?? [facility] Comment: The eGFR was calculated using the CKD-EP I equation. As with all creatinine based estimates of kidney function, eGFR values calculated with the CKD-EPI equation are not accurate in patients wi th acute kidney failure, extremes of body mass or the acutely ill. [email or web address] Star/[facility] eGFR 111 >=60 mL/min/1.73 m?? [facility] Comment: The eGFR was calculated using the CKD-EP I equation. As with all creatinine based estimates of kidney function, eGFR values calculated with the CKD-EPI equation are not accurate in patients wi th acute kidney failure, extremes of body mass or the acutely ill. [email or web address] Star/[facility] Specimen Anatomical Collection Method Collection Time Receive d Time (Source) Location / / Volume Laterality Blood specimen 10/22/2018 4:55 AM 019 5:08 (specimen) EDT AM EDT Resulting Agency Comment Spec In Lab Cristiane Richard MD CHEMISTRY ORDERABLES Performing Organization Address City/State/[place] [address] HIV Screen, 4th Generation ([facility]/CGP/APD) (10/22/2018 4:55 AM EDT) Analysis Performed At Patho logist Time Signature HIV-1/[address] [facility] LABORATORY Comment: This 4th Generation [...] Location / / Volume Laterality Blood specimen 10/22/2018 4:55 AM 019 5:08 (specimen) EDT AM EDT Resulting Agency Comment Spec In Lab Bruno Erickson MD IMMUNOLOGY ORDERABLES Performing Organization Address City/State/[place] [address] (ABNORMAL) Differential, Automated (10/21/2018 3:41 AM EDT) Patholo gist Method Time Signature Neutrophils % 66.2 % [facility] Neutr Abs (ANC) 10.50 (H) 1.70 - [facility] 6.10 [facility] x10(3)/[facility] LABORATORY Lymphocytes % 23.6 % [facility] Lymphocytes Abs 3.8 (H) 0.9 - 3.2 [facility] x10(3)/[facility] LABORATORY Monocytes % 8.2 % [facility] Monocyte Abs 1.3 (H) 0.3 - 0.9 [facility] x10(3)/[facility] LABORATORY Eosinophils % 1.0 % [facility] Eosinophils Abs 0.2 0.0 - 0.4 [facility] x10(3)/[facility] LABORATORY Basophils % 0.4 % [facility] Basophils Abs 0.1 0.0 - 0.1 [facility] x10(3)/[facility] LABORATORY Immature Gran % 0.60 % [facility] Comment: Immature granulocytes(IG's)percentage an d absolute count will include metamyelocytes, myelocytes, and promyelo cytes. Blood smears from CBCs yielding IG's will be scanned manually for concor dance. If this scan disagrees with the automated IG or if promyelocytes are not ed, a manual differential will be performed. Ayah Gran Abs 0.09 (H) 0.00 - 0.04 x10(3)/[facility] LABORATORY Specimen Anatomical Collection Method Collection Time Receive d Time (Source) Location / / Volume Laterality Blood specimen 10/21/2018 3:41 AM 019 4:02 (specimen) EDT AM EDT Resulting Agency Comment Spec In Lab Nancy Gordon MD HEMATOLOGY ORDERABLES Performing Organization Address City/State/[place] [address] (ABNORMAL) Hemogram (10/21/2018 3:41 AM EDT) Analysis Performed At Patho logist Time Signature WBC 15.9 (H) 4.0 - 9.5 [facility] x10(3)/[facility] LABORATORY RBC 4.20 4.00 - [facility] 5.21 [facility] x10(6)/[facility] LABORATORY Hemoglobin 13.3 11.7 - [facility] 15.5 gm/dL [facility] Hematocrit 40.5 35.7 - [facility] 45.8 % [facility] MCV 96.4 (H) 82.6 - [facility] 94.4 [facility] LABORATORY MCH 31.7 27.1 - [facility] 32.0 pg [facility] MCHC 32.8 31.7 - [facility] 35.0 gm/dL [facility] Platelets 349 145 - 357 [facility] x10(3)/[facility] LABORATORY RDWSD 41.8 37.0 - [facility] 46.0 [facility] LABORATORY RDWCV 11.8 11.5 - [facility] 14.1 % [facility] MPV 9.6 7.6 - 12.9 [facility] LABORATORY nRBC % Auto 0.0 % [facility] nRBC Abs Auto 0.000 0.000 - [facility] 0.000 [facility] x10(3)/[facility] LABORATORY Specimen Anatomical Collection Method Collection Time Receive d Time (Source) Location / / Volume Laterality Blood specimen 10/21/2018 3:41 AM 019 4:02 (specimen) EDT AM EDT Resulting Agency Comment Spec In Lab Nancy Gordon MD HEMATOLOGY ORDERABLES Performing Organization Address City/State/[place] [address] (ABNORMAL) Basic Metabolic Panel (non-fasting) (10/21/2018 3:41 AM EDT) athologist Signature Glucose Lvl 123 65 - 199 [facility] mg/dL [facility] Comment: Diabetes: >=200 mg/dL plus symp toms BUN 9 8 - 18 mg/dL [facility] Creatinine 0.56 (L) 0.70 - 1.20 mg/dL [facility] Sodium 140 135 - 145 mmol/L [facility] Potassium 3.8 3.5 - 5.0 mmol/L [facility] Comment: Please note: ??Patients with WBC >100,00 0 may have falsely elevated Potassium levels. ??For accurate Potassium quantif ication in these patients send serum separator tube (gold top) for subsequent determinations. ??Contact the Clinical Chemistry Laboratory if there are any qu estions. Chloride 103 98 - 107 mmol/L [facility] CO2 26 22 - 31 mmol/L [facility] Anion Gap 11 5 - 15 mmol/L [facility] Calcium 8.8 8.5 - 10.5 mg/dL [facility] Estimated GFR 123 >=60 mL/min/1.73 m?? [facility] Comment: The eGFR was calculated using the CKD-EP I equation. As with all creatinine based estimates of kidney function, eGFR values calculated with the CKD-EPI equation are not accurate in patients wi th acute kidney failure, extremes of body mass or the acutely ill. [email or web address] [email or web address] eGFR 143 >=60 mL/min/1.73 m?? [facility] Comment: The eGFR was calculated using the CKD-EP I equation. As with all creatinine based estimates of kidney function, eGFR values calculated with the CKD-EPI equation are not accurate in patients wi th acute kidney failure, extremes of body mass or the acutely ill. [email or web address] [email or web address] Specimen Anatomical Collection Method Collection Time Receive d Time (Source) Location / / Volume Laterality Blood specimen 10/21/2018 3:41 AM 019 4:02 (specimen) EDT AM EDT Resulting Agency Comment Spec In Lab Cristiane Richard MD CHEMISTRY ORDERABLES Performing Organization Address City/State/[place] [address] (ABNORMAL) Abscess/Wound Aspirate Culture Abscess; Hand, Left (10/20/2018 6:11 PM EDT) Component Value Ref Test Analysis Performed At [facility] Range Method Time Signature Abscess/Wound Moderate [facility] Aspirate Staphylococcus [place] Culture aureus, MRSA (A) [facility] Gram Stain Moderate Neutrophils seen MAR Y Rare Gram Positive Cocci in clusters seen [facility]OR[facility] Organism Staphylococcus CO[facility] aureus, MRSA (A) [facility]3] LABORATORY Organism Gram Positive [facility] Cocci in clusters [facility]OR[facility] Specimen Anatomical Collection Method Collection Time Receive d Time (Source) Location / / Volume Laterality Specimen from STRUCTURE OF LEFT 10/20/2018 6:11 PM 6:49 abscess HAND / Unknown EDT PM EDT (specimen) Resulting Agency Comment Spec In Lab Organism Antibiotic Method Susceptibility Staphylococcus aureus, mrsa Cefazolin VITEK 2 METHOD Resi stant Staphylococcus aureus, mrsa Ceftriaxone VITEK 2 METHOD Resi stant Staphylococcus aureus, mrsa Ciprofloxacin VITEK 2 METHOD Sens itive Staphylococcus aureus, mrsa Clindamycin VITEK 2 METHOD Sens itive Staphylococcus aureus, mrsa Erythromycin VITEK 2 METHOD Sens itive Staphylococcus aureus, mrsa Gentamicin VITEK 2 METHOD Sens itive Comment: Gentamicin is not a ppropriate for Hunt-therapy. Staphylococcus aureus, mrsa Levofloxacin VITEK 2 METHOD Sens itive Staphylococcus aureus, mrsa Linezolid VITEK 2 METHOD Sens itive Staphylococcus aureus, mrsa Oxacillin VITEK 2 METHOD Resi stant Comment: MRSA, Note Nafcil addis Resistance Staphylococcus aureus, mrsa Trimethoprim/Sulfa VITEK 2 METHOD S ensitive Staphylococcus aureus, mrsa Tetracycline VITEK 2 METHOD Sens itive Staphylococcus aureus, mrsa Vancomycin VITEK 2 METHOD Sens itive Dinesh Carreon MD MICROBIOLOGY - GENERAL ORDER MICHEL Performing Organization Address City/[facility]/ZIP Code Phon e Number [address] Gold Tube HOLD (10/20/2018 1:33 PM EDT) P athologist Signature Gold Hold Sample in [facility] LABORATORY Specimen Anatomical Collection Method Collection Time Receive d Time (Source) Location / / Volume Laterality Blood specimen Venous Draw / 10/20/2018 1:33 PM 2018 1:45 (specimen) Unknown EDT PM EDT Nancy Gordon MD CHEMISTRY ORDERABLES Performing Organization Address City/[facility] Code Phon e Number [address] (ABNORMAL) Differential, Automated (10/20/2018 1:33 PM EDT) [facility] gist Method Time Signature Neutrophils % 71.2 % [facility] Neutr Abs (ANC) 11.22 (H) 1.70 - [facility] 6.10 [facility] x10(3)/[facility] LABORATORY Lymphocytes % 18.5 % [facility] Lymphocytes Abs 2.9 0.9 - 3.2 [facility] x10(3)/[facility] LABORATORY Monocytes % 8.3 % [facility] Monocyte Abs 1.3 (H) 0.3 - 0.9 [facility] x10(3)/[facility] LABORATORY Eosinophils % 0.9 % [facility] Eosinophils Abs 0.1 0.0 - 0.4 [facility] x10(3)/[facility] LABORATORY Basophils % 0.6 % [facility] Basophils Abs 0.1 0.0 - 0.1 [facility] x10(3)/[facility] LABORATORY Immature Gran % 0.50 % [facility] Comment: Immature granulocytes(IG's)percentage an d absolute count will include metamyelocytes, myelocytes, and promyelo cytes. Blood smears from CBCs yielding IG's will be scanned manually for concor dance. If this scan disagrees with the automated IG or if promyelocytes are not ed, a manual differential will be performed. Ayah Gran Abs 0.08 (H) 0.00 - 0.04 x10(3)/[facility] LABORATORY Specimen Anatomical Collection Method Collection Time Receive d Time (Source) Location / / Volume Laterality Blood specimen 10/20/2018 1:33 PM 019 1:44 (specimen) EDT PM EDT Resulting Agency Comment Spec In Lab Nancyeun Gordon MD HEMATOLOGY ORDERABLES Performing Organization Address City/State/[place] [address] (ABNORMAL) Hemogram (10/20/2018 1:33 PM EDT) Analysis Performed At Patho logist Time Signature WBC 15.8 (H) 4.0 - 9.5 [facility] x[facility](3[facility] LABORATORY RBC 4.01 4.00 - [facility] 5.21 [facility] x10(6)/[facility] LABORATORY Hemoglobin 12.6 11.7 - [facility] 15.5 gm/dL [facility] Hematocrit 37.8 35.7 - [facility] 45.8 % [facility] MCV 94.3 82.6 - [facility] 94.4 [facility] LABORATORY MCH 31.4 27.1 - [facility] 32.0 pg [facility] MCHC 33.3 31.7 - [facility] 35.0 gm/dL [facility] Platelets 336 145 - 357 [facility] x10(3)/[facility] LABORATORY RDWSD 41.8 37.0 - [facility] 46.0 [facility] LABORATORY RDWCV 11.9 11.5 - [facility] 14.1 % [facility] MPV 9.5 7.6 - 12.9 [facility] LABORATORY nRBC % Auto 0.0 % [facility] nRBC Abs Auto 0.000 0.000 - [facility] 0.000 [facility] x10(3)/[facility] LABORATORY Specimen Anatomical Collection Method Collection Time Receive d Time (Source) Location / / Volume Laterality Blood specimen 10/20/2018 1:33 PM 019 1:44 (specimen) EDT PM EDT Resulting Agency Comment Spec In Lab Nancy Gordon MD HEMATOLOGY ORDERABLES Performing Organization Address City/[facility]/[place] [address] APTT (10/20/2018 1:33 PM EDT) athologist Signature PTT 36 25 - 37 sec [facility] Comment: The PTT is NOT appropriate for heparin m onitoring. Use the Anti-Xa level for heparin monitoring (HEP UFH) or LMWH mon itoring (HEP LMW). A PTT less than 37 seconds generally indicates adequate hem ostasis. Specimen Anatomical Collection Method Collection Time Receive d Time (Source) Location / / Volume Laterality Blood specimen 10/20/2018 1:33 PM 019 1:44 (specimen) EDT PM EDT Resulting Agency Comment Spec In Lab Dinesh Carreon MD HEMATOLOGY ORDERABLES Performing Organization Address [facility]/[place] [address] Prothrombin Time (10/20/2018 1:33 PM EDT) P athologist Signature PT 12.4 9.4 - 12.5 [facility] LABORATORY INR 1.1 [facility] Comment: An INR <2.0 indicates adequate procoagul ant activity for hemostasis in most patients without underlying bleeding dis orders, though the INR may not adequately reflect hemostatic capacity i n patients with liver disease and synthetic impairment. The recommended ta rget INR range for therapeutic anticoagulation is 2.0 ? 3.0 for most applications, though lower and higher ranges may be appropriate depending on c linical circumstances. Specimen Anatomical Collection Method Collection Time Receive d Time (Source) Location / / Volume Laterality Blood specimen 10/20/2018 1:33 PM 019 1:44 (specimen) EDT PM EDT Resulting Agency Comment Spec In Lab Dinesh Carreon MD HEMATOLOGY ORDERABLES Performing Organization Address City/[facility]/[place] [address] Blood culture (10/20/2018 1:33 PM EDT) Patholo gist Method Time Signature Blood Culture No growth [facility] at 5 days. [facility] Specimen Anatomical Collection Method Collection Time Receive d Time (Source) Location / / Volume Laterality Blood specimen 10/20/2018 1:33 PM 019 1:49 (specimen) EDT PM EDT Resulting Agency Comment Spec In Lab Dinesh Carreon MD MICROBIOLOGY - BLOOD ORDERAB LES Performing Organization Address City/[facility] [place] [address] (ABNORMAL) CRP, acute inflammation (10/20/2018 1:33 PM EDT) P athologist Signature CRP 18.9 (H) <=4.9 mg/L [facility] Specimen Anatomical Collection Method Collection Time Receive d Time (Source) Location / / Volume Laterality Blood specimen 10/20/2018 1:33 PM 019 1:44 (specimen) EDT PM EDT Resulting Agency Comment Spec In Lab Dinesh Carreon MD CHEMISTRY ORDERABLES Performing Organization Address City/[facility]/[place] [address] Sedimentation rate (10/20/2018 1:33 PM EDT) P athologist Signature Sed Rate 14 0 - 20 [facility] [place] mm/hr [facility] Specimen Anatomical Collection Method Collection Time Receive d Time (Source) Location / / Volume Laterality Blood specimen 10/20/2018 1:33 PM 019 1:44 (specimen) EDT PM EDT Resulting Agency Comment Spec In Lab Dinesh Carreon MD HEMATOLOGY ORDERABLES Performing Organization Address City/[facility] [place] [address] (ABNORMAL) Basic Metabolic Panel (non-fasting) (10/20/2018 1:33 PM EDT) P athologist Signature Glucose Lvl 85 65 - 199 [facility] mg/dL [facility] Comment: Diabetes: >=200 mg/dL plus symp toms BUN 8 8 - 18 mg/dL [facility] Creatinine 0.51 (L) 0.70 - 1.20 mg/dL [facility] Sodium 137 135 - 145 mmol/L [facility] Potassium 4.3 3.5 - 5.0 mmol/L [facility] Comment: Please note: ??Patients with WBC >100,00 0 may have falsely elevated Potassium levels. ??For accurate Potassium quantif ication in these patients send serum separator tube (gold top) for subsequent determinations. ??Contact the Clinical Chemistry Laboratory if there are any qu estions. Chloride 104 98 - 107 mmol/L [facility] CO2 23 22 - 31 mmol/L [facility] Anion Gap 10 5 - 15 mmol/L [facility] Calcium 8.3 (L) 8.5 - 10.5 mg/dL [facility] Estimated GFR 127 >=60 mL/min/1.73 m?? [facility] Comment: The eGFR was calculated using the CKD-EP I equation. As with all creatinine based estimates of kidney function, eGFR values calculated with the CKD-EPI equation are not accurate in patients wi th acute kidney failure, extremes of body mass or the acutely ill. [email or web address] eGFR 147 >=60 mL/min/1.73 m?? [facility] Comment: The eGFR was calculated using the CKD-EP I equation. As with all creatinine based estimates of kidney function, eGFR values calculated with the CKD-EPI equation are not accurate in patients wi th acute kidney failure, extremes of body mass or the acutely ill. [email or web address] Specimen Anatomical Collection Method Collection Time Receive d Time (Source) Location / / Volume Laterality Blood specimen 10/20/2018 1:33 PM 019 1:44 (specimen) EDT PM EDT Resulting Agency Comment Spec In Lab Dinesh Carreon MD CHEMISTRY ORDERABLES Performing Organization Address City/State/[place] [address] (ABNORMAL) Rapid Drug Screen w/o Confirmation, Urine (10/20/2018 12:23 PM EDT) [facility] Method Time Signature U Barbiturates None None [facility] Screen Detected Detected [facility] LABORATORY Comment: The barbiturate screen detects barbitura [...] Benzodiazepines Screen None Detected None Detected [facility] Comment: The benzodiazepines screen detects [...] Cocaine Screen None Detected None Detected [facility] Comment: The cocaine metabolites screen detects b enzoylecgonine (Cocaine Metabolite) at concentrations >150 ng/mL. A ? Presumptive Positive? result indicates that the screening result was positive but has not yet been confirmed by a highly-specific method. As with any screen, occasional false positive re sults from cross-reacting substances may occur. Not for Medico-Legal Purposes. U Methadone Metabolites None Detected None Detected [facility] Comment: The methadone metabolite [...] U Opiate Screen None Detected None Detected [facility] Comment: The opiates screen detects opiates at co ncentrations >300 ng/mL. Please note that oxycodone, oxymorphone, fentanyl, tramadol, and other synthetic opioids are not detected by [facility] opiate screen. A ? Presumptive Positive? result indicates that the screening result was positive but has not yet been confirmed by a highly-specific method. As with any screen, occasional false positive re sults from cross-reacting substances may occur. Not for Medico-Legal Purposes. U Cannabinoid Screen None Detected None Detected [facility] Comment: The marijuana metabolites screen detects the THC metabolite (66-fua-5-carboxy-delta 9-THC) at concen trations >20 ng/mL. A ? Presumptive Positive? result indicates that the screening result was positive but has not yet been confirmed by a highly-specific method. As with any screen, occasional false positive re sults from cross-reacting substances may occur. Not for Medico-Legal Purposes. U Oxycodone Screen None Detected None Detected [facility] Comment: The oxycodone screen detects [...] Screen Presumptive Pos (A) None Detected [facility] Comment: The buprenorphine screen detects bupreno rphine at concentrations >5 ng/mL. A ? Presumptive Positive? result indicates that the screening result was positive but has not yet been confirmed by a highly-specific method. As with any screen, occasional false positive re sults from cross-reacting substances may occur. Not for Medico-Legal Purposes. U Fentanyl Screen None Detected None Detected [facility] Comment: The fentanyl screen detects fentanyl at concentrations >2 ng/mL. A ? Presumptive Positive? result indicates that the screening result was positive but has not yet been confirmed by a highly-specific method. As with any screen, occasional false positive re sults from cross-reacting substances may occur. Not for Medico-Legal Purposes. U Tricyclics Screen None Detected None Detected [place] [facility] LABORATORY Comment: The tricyclics screen detects tricyclic [...] Ethanol Screen None Detected None Detected [facility] Comment: This urine ethanol assay detect s ethanol at concentrations >/= 100 mg/L. U Amphetamines Screen None Detected None Detected [facility] Comment: The amphetamine screen detects [...] Screen None Detected None Detected Pippa [facility] LABORATORY Comment: No adulteration or dilution of this urin e sample was detected. All urine samples submitted for urine drugs of abu se analysis are tested for creatinine concentration, pH, and for the presence of oxidants, nitrites, and chromate. Specimen Anatomical Collection Method Collection Time Receive d Time (Source) Location / / Volume Laterality Urine specimen 10/20/2018 12:23 9 (specimen) PM EDT 12:33 PM EDT Resulting Agency Comment Spec In Lab Primitivo Salas MD CHEMISTRY ORDERABLES Performing Organization Address City/State/[place] [address] Rapid Drug Screen, Urine (IMELDA Request) (10/20/2018 12:23 PM EDT) [facility] Method Time Signature IMELDA Conf No [facility] LABORATORY IMELDA Requested See Comment [facility] Comment: Refer to Rapid Drug Screen w/o Confirmation, Urine for results. Specimen Anatomical Collection Method Collection Time Receive d Time (Source) Location / / Volume Laterality Urine specimen 10/20/2018 12:23 9 (specimen) PM EDT 12:33 PM EDT Resulting Agency Comment Spec In Lab Dinesh Carreon MD URINE ORDERABLES Performing Organization Address City/[facility]/[place] [address] Urinalysis with reflex Culture (10/20/2018 12:23 PM EDT) [facility] Method Time Signature Glucose UA Negative Negative [facility] mg/dL [facility] Protein UA Negative Negative [facility] mg/dL [facility] Bilirubin UA Negative Negative [facility] mg/dL [facility] Comment: Clinical correlation required for positi ve Urine Bilirubin results as false positive may occur with some drugs and d rug related products. If a false positive is suspected a serum total bili lópez should be considered if clinically indicated. Urobilinogen UA Normal Normal mg/dL [facility] pH UA 7.0 5.0 - 8.0 [facility] Blood UA Negative Negative mg/dL [facility] Ketones UA Negative Negative mg/dL [facility] Nitrite UA Negative Negative [facility] Leukocytes UA Negative Negative [facility]ORY Appearance UA Clear Clear [facility] Spec [place] UA 1.019 1.002 - 1.030 [facility] Color UA Yellow Yellow [facility] Culture Reflexed No [facility] Specimen Anatomical Collection Method Collection Time Receive d Time (Source) Location / / Volume Laterality Urine specimen 10/20/2018 12:23 9 (specimen) PM EDT 12:33 PM EDT Resulting Agency Comment Spec In Lab Dinesh Carreon MD URINE ORDERABLES Performing Organization Address City/[facility]/[place] [address] documented in this encounter Visit Diagnoses Diagnosis Hand abscess Cellulitis and abscess of hand, except f ingers and thumb Abscess of dorsum of left hand documented in this encounter Admitting Diagnoses Diagnosis Abscess of dorsum of left hand documented in this encounter Administered Medications Inactive Administered Medications - up to 3 most recent administrations Medication Order MAR Action Action Date Dose Rate Site aspirin chewable tablet 81 mg Given 10/22/2018 9:00 AM EDT 81 mg 81 mg, Oral, DAILY, First dose on Sun10/22/18 at 0900, Until Discontinued, Routine buprenorphine-naloxone (SUBOXONE) 2-0.5 mg Given 10/21 2:41 PM EDT 2 tablets sublingual tablet 2 tablet 2 tablet (4 mg of opiate), Sublingual, ONCE, 1 dose, On Sun10/21/18 at 1345, Routine buprenorphine-naloxone (SUBOXONE) 8-2 mg Given 10/22/2018 9:02 P M EDT 1 tablet sublingual tablet 1 tablet 1 tablet (8 mg of opiate), Sublingual, 2 TIMES DAILY, First dose on Sun10/22/18 at 0900, Until Discontinued, Routine Given 10/22/2018 9:00 AM EDT 1 tablet dronabinol (MARINOL) capsule 5 mg Given 10/22/2018 9:01 PM EDT 5 mg 5 mg, Oral, 2 TIMES DAILY, First dose on Sun10/22/18 at 0900, Until Discontinued, Routine Given 10/22/2018 9:00 AM EDT 5 mg gabapentin (NEURONTIN) capsule 300 mg Given 10/22/2018 9:02 PM EDT 300 mg 300 mg, Oral, 3 TIMES DAILY, First dose on Sun10/21/18 at 1500, Until Discontinued, Routine Given 10/22/2018 3:01 PM EDT 300 mg Given 10/22/2018 9:00 AM EDT 300 mg HYDROmorphone (DILAUDID) injection 0.2 m g Given 10/21/2018 5:50 AM EDT 0.2 mg 0.2 mg, Intravenous, EVERY 4 HOURS PRN, Starting on Sun10/20/18 at 2058, Until Sun10/21/18 at 1445, Pain, breakthrough pain, May give an additional 0.2 mg in 30 minutes once if pain not relieved., Routine HYDROmorphone (DILAUDID) injection 0.5 m g Given 10/20/2018 7:25 PM EDT 0.5 mg 0.5 mg, Intravenous, ONCE, 1 dose, On Sun10/20/18 at 1854, STAT HYDROmorphone (DILAUDID) tablet 2-4 mg Given 10/22/2018 3:01 PM EDT 2 mg 2-4 mg, Oral, EVERY 4 HOURS PRN, Starting on Sun10/21/18 at 1443, Until Sun10/23/18 at 0353, Pain, 1 tab for moderate pain (4-6) or 2 tabs for severe pain (7-10), Routine Given 10/22/2018 5:48 AM EDT 4 mg Given 10/21/2018 11:53 PM EDT 4 mg HYDROmorphone (DILAUDID) tablet 6 mg Given 10/21/2018 1:19 PM EDT 6 mg 6 mg, Oral, EVERY 3 HOURS PRN, Starting on Sun10/20/18 at 2058, Until Sun10/21/18 at 1445, Pain, severe pain (7-10), For severe pain (7-10). Do not exceed 6 mg in 4 hours. If pain not relieved, call provider., Routine Given 10/21/2018 9:48 AM EDT 6 mg Given 10/21/2018 4:25 AM EDT 6 mg ketamine (KETALAR) injection 10.4 mg Given 10/20/2018 4:02 PM EDT 10.4 mg 10.4 mg (rounded from 10.41 mg = 0.15 mg/kg/dose ? 69.4 kg), Intravenous, ONCE, 1 dose, On Sun10/20/18 at 1557, Routine ketorolac (TORADOL) injection 15 mg Given 10/20/2018 6:50 PM EDT 15 mg 15 mg, Intravenous, ONCE, 1 dose, On Sun10/20/18 at 1455, Routine ketorolac (TORADOL) injection 15 mg 15 mg, Intravenous, EVERY 8 HOURS PRN, S tarting on Sun10/22/18 at 0621, Until Sun10/23/18 at 0353, Pain, Please give prior to discharge, Routine levothyroxine (SYNTHROID) tablet 75 mcg Given 10/22/2018 5:45 AM EDT 75 mcg 75 mcg, Oral, DAILY, First dose on Sun10/21/18 at 0600, Until Discontinued, Routine Given 10/21/2018 5:04 AM EDT 75 mcg LORazepam (ATIVAN) injection 1 mg Given 10/20/2018 3:40 PM EDT 1 mg 1 mg, Intravenous, ONCE, 1 dose, On Sun10/20/18 at 1514, Routine LORazepam (ATIVAN) tablet 0.5 mg 0.5 mg, Oral, EVERY 12 HOURS PRN, Starting on 10/21 at 1017, Until Sun10/23/18 at 0353, Anxiety, Use for anxiet y 1/2 hour prior to dressing changes only, not for general anxiety, Routine LORazepam (ATIVAN) tablet 0.5 mg Given 10/22/2018 9:59 PM EDT 0.5 mg 0.5 mg, Oral, ONCE, 1 dose, On Sun10/22/18 at 2215, Please give PRN for anxiety for IV placement, Routine nicotine (NICODERM CQ) 14 Given 10/22/2018 8:59 AM EDT 14 mg 09- Arm Upper (Left) mg/24 hr patch 14 mg 14 mg (1 patch), Transdermal, DAILY, First dose on Sun10/21/18 at 1045, Until Discontinued, Routine Given 10/21/2018 11:05 AM EDT 14 mg 10- Arm Upper (Right) nicotine (NICODERM CQ) 14 mg/24 hr patch Patch Removal Transdermal, DAILY, First dose on Sun at 1030, Until Discontinued, Remove nicotine 14 mg/24 hr patch nicotine (NICODERM CQ) 14 mg/24 hr patch Patch Verification Transdermal, 2 TIMES DAILY, First dose o n Sun10/21/18 at 2230, Until Discontinued, Verify nicotine 14 mg/24 hr patch. nicotine polacrilex (NICORETTE) gum 2 mg Given 10/21/2018 3:31 PM EDT 2 mg 2 mg, Buccal, EVERY 2 HOURS PRN, Starting on Sun10/21/18 at 1516, Until Sun10/23/18 at 0353, Smoking cessation, Chew gum slowly. Do not swallow. Maximum of 48 mg/day., Routine piperacillin-tazobactam (ZOSYN) New Bag 10/21/2018 2:48 PM 3.375 g 12.5 mL/hr 3.375 g vial attach to sodium EDT chloride 0.9% 50 mL Mini-Bag Plus 3.375 g, Intravenous, EVERY 8 HOURS, First dose on Sun10/20/18 at 2200, Until Discontinued, Administer over 4 Hours, Warning Vesicant/Irritant Medication Do not administer or Y-site with lactated ringers., Indication for (Active or Suspected): Bone/Joint New Bag 10/21/2018 5:52 AM EDT 3.375 g 12.5 mL/hr New Bag 10/20/2018 9:20 PM EDT 3.375 g 12.5 mL/hr polyethylene glycol (MIRALAX) packet 17 g Given 10/22/2018 9:00 AM EDT 17 g 17 g, Oral, DAILY, First dose on Sun10/21/18 at 0900, Until Discontinued, Routine polyethylene glycol (MIRALAX) packet 17 g Given 10/22/2018 9:03 PM EDT 17 g 17 g, Oral, 2 TIMES DAILY, First dose on Sun10/20/18 at 2115, Until Discontinued, Routine Given 10/21/2018 8:27 PM EDT 17 g Given 10/20/2018 9:20 PM EDT 17 g risperiDONE (RisperDAL) tablet 0.25 mg Given 10/22/2018 9:01 PM EDT 0.25 mg 0.25 mg, Oral, 2 TIMES DAILY, First dose on Sun10/22/18 at 2100, Until Discontinued, Routine senna-docusate (PERICOLACE) 8.6-50 mg per Given 2018 9:01 PM EDT 2 tablets tablet 2 tablet 2 tablet, Oral, 2 TIMES DAILY, First dose on Sun10/20/18 at 2115, Until Discontinued, Routine Given 10/22/2018 9:00 AM EDT 2 tablets Given 10/21/2018 8:27 PM EDT 2 tablets sodium chloride 0.9 % (flush) flush 5 mL Given 10/22/2018 9:02 PM EDT 5 mLs 5 mL, Intravenous, 2 TIMES DAILY, First dose on Sun10/20/18 at 2115, Until Discontinued, Routine Given 10/22/2018 9:01 AM EDT 5 mLs Given 10/21/2018 8:31 PM EDT 5 mLs vancomycin 1 g in 0.9 % sodium New Bag 10/22/2018 5:46 AM EDT 1,000 mg 200 mL/hr chloride 200 mL 1,000 mg, Intravenous, EVERY 8 HOURS, First dose on Sun10/21/18 at 0600, Until Discontinued, Administer over 60 Minutes, Maximum infusion rate is 1 gram/hour. If flushing of the face, neck, upper body, arms, and/or back occurs decrease infusion rate by 50% to reduce the severity of symptoms. This medication may have an associated drug lab level. Please see MAR for scheduled level. Warning Vesicant/Irritant Medication , Indication for (Active or Suspected): Bone/Joint New Bag 10/21/2018 8:26 PM EDT 1,000 mg 200 mL/hr New Bag 10/21/2018 1:13 PM EDT 1,000 mg 200 mL/hr vancomycin 1.25 g sodium in New Bag 10/22/2018 10:59 PM EDT 1,250 mg 200 mL/hr chloride 0.9% 250 mL 1,250 mg, Intravenous, EVERY 8 HOURS, First dose on Sun10/22/18 at 1400, Until Discontinued, Administer over 75 Minutes, Maximum infusion rate is 1 gram/hour. If flushing of the face, neck, upper body, arms, and/or back occurs decrease infusion rate by 50% to reduce the severity of symptoms. This medication may have an associated drug lab level. Please see MAR for scheduled level. Warning Vesicant/Irritant Medication , Indication for (Active or Suspected): Bone/Joint New Bag 10/22/2018 3:02 PM EDT 1,250 mg 200 mL/hr vancomycin 1.5 g in sodium New Bag 10/20/2018 10:53 PM EDT 1.5 g 166.7 mL/hr chloride 0.9% 250 mL 1.5 g, Intravenous, ONCE, 1 dose, On Sun10/20/18 at 2200, Administer over 90 Minutes, Maximum infusion rate is 1 gram/hour. If flushing of the face, neck, upper body, arms, and/or back occurs decrease infusion rate by 50% to reduce the severity of symptoms. This medication may have an associated drug lab level. Please see MAR for scheduled level. Warning Vesicant/Irritant Medication , Indication for (Active or Suspected): Bone/Joint Vancomycin Level - MAR Order Reminder NOT APPLICABLE, ONCE, On Sun10/23/18 at 1330, 1 dose, This alert will be scheduled by a pharmacist after order placement. T his order is a reminder to nursing staff to release and draw the PRN drug level at t he specified time. It may be necessary to contact phlebotomy 60 minutes prior to t he scheduled due time to assure a timely blood draw. documented in this encounter Active and Recently Administered Medications Times are shown in EDT. Scheduled Medication Order 10/21/2018 10/22/2018 10/23/2018 aspirin chewable tablet 81 mg 0900 (Given - Prov ider: Haydee Oliveros RN) 81 mg, Oral, DAILY, First dose on Sun at 0900, Until Discontinued, Routine buprenorphine-naloxone (SUBOXONE) 2-0.5 mg sublingual tablet 2 tablet (COMPLETED) 1441 (Given - Provider: Haydee Oliveros RN) 2 tablet (4 mg of opiate), Sublingual, O NCE, 1 dose, Sun10/21/18 at 1345, Routine buprenorphine-naloxone (SUBOXONE) 8-2 mg sublingual tablet 1 tablet 899 (Given - Provider: Haydee Oliveros RN)2101 (Given - Provider: Kar Hernandez RN) 1 tablet (8 mg of opiate), Sublingual, 2 TIMES DAILY, First dose on Sun10/22/18 at 0900, Until Discontinued, Routine dronabinol (MARINOL) capsule 5 mg 09 ( Given - Provider: Haydee Oliveros RN)2100 (Given - Provider: Kar Hernandez RN) 5 mg, Oral, 2 TIMES DAILY, First dose on Sun10/22/18 at 0900, Until Discontinued, Routine gabapentin (NEURONTIN) capsule 300 mg 153 (Given - Pr ovider: Haydee Oliveros RN)2026 (Given - Provider: Kar Hernandez RN) 09 (Given - Provider: Haydee Oliveros RN)150 (Given - Provider: Haydee Oliveros RN)2101 (Given - Provider: Kar Hernandez RN) 300 mg, Oral, 3 TIMES DAILY, First dose on Sun10/21/18 at 1500, Until Discontinued, Routine levothyroxine (SYNTHROID) tablet 75 mcg 0504 (Given - Provider: Kar Hernandez RN) 0545 (Given - Provider: Kar Hernandez RN) 75 mcg, Oral, DAILY, First dose on Sun at 0600, Until Discontinued, Routine LORazepam (ATIVAN) tablet 0.5 mg (COMPLETED) 2158 (Given - Provider: Kar Hernandez RN) 0.5 mg, Oral, ONCE, 1 dose, On Sun at 2215, Please give PRN for anxiety for IV placement, Routine nicotine (NICODERM CQ) 14 mg/24 hr patch 14 mg(Linked Group 1) 1105 (Given - Provider: Haydee Oliveros RN) 0859 (Given - Provider: Haydee Oliveros RN) 14 mg (1 patch), Transdermal, DAILY, Fir st dose on Sun10/21/18 at 1045, Until Discontinued, Routine nicotine (NICODERM CQ) 14 mg/24 hr patch Patch Removal(Linke d Group 1) 1030 (Patch Removed - Provider: Haydee Oliveros RN) Transdermal, DAILY, First dose on Sun at 1030, Until Discontinued, Remove nicotine 14 mg/24 hr patch nicotine (NICODERM CQ) 14 mg/24 hr patch Patch Verific ation(Linked Group 1) 2100 (Patch (dose and location) verified - Provider: Kar Hernandez RN) 0900 (Patch (dose and location) verified - Provider: Haydee Oliveros RN)2100 (Patch (dose and location) verified - Provider: Kar Hernandez RN) Transdermal, 2 TIMES DAILY, First dose o n Sun10/21/18 at 2230, Until Discontinued, Verify nicotine 14 mg/24 hr patch. piperacillin-tazobactam (ZOSYN) 3.375 g vial attach to sodium chloride 0.9% 50 mL Mini-Bag Plus (CANCELED) 0120 (Stopped - Provider: James Wilkerson N)0552 (New Bag - Provider: Kar Hernandez RN)0952 (Stopped - Provider: Haydee Oliveros RN)1448 (New Bag - Provider: Haydee Oliveros RN)1848 (Stopped - Provider: aKr Hernandez RN) 3.375 g, Intravenous, EVERY 8 HOURS, Fir st dose on Sun10/20/18 at 2200, Until Discontinued, Administer over 4 Hours, Warning Vesicant/Irritant Medication Do not administer or Y-site with lactated ringers., Indication for (Active or Suspected): Bone/Joint polyethylene glycol (MIRALAX) packet 17 g 49 (Not Gi vega - Provider: Haydee Oliveros RN - Reason: Patient/family refused) 09 (Given - Provider: Haydee Oliveros RN) 17 g, Oral, DAILY, First dose on 10/06 at 0900, Until Discontinued, Routine polyethylene glycol (MIRALAX) packet 17 g 899 (Not Gi vega - Provider: Haydee Oliveros RN - Reason: See comment - Comment: duplicate order)2026 (Given - Provider: Kar Hernandez RN) 899 (Not Given - Provider: Haydee zheng RN - Reason: See comment - Comment: duplicate order)2102 (Given - Provider: Kar Hernandez RN) 17 g, Oral, 2 TIMES DAILY, First dose on Sun10/20/18 at 2115, Until Discontinued, Routine risperiDONE (RisperDAL) tablet 0.25 mg 2 101 (Given - Provider: Kar Hernandez RN) 0.25 mg, Oral, 2 TIMES DAILY, First dose on Sun10/22/18 at 2100, Until Discontinued, Routine senna-docusate (PERICOLACE) 8.6-50 mg per tablet 2 tab let 948 (Given - Provider: Haydee Oliveros RN)2026 (Given - Provider: Kar Hernandez RN) 09 (Given - Provider: Haydee Oliveros RN)2100 (Given - Provider: Kar Hernandez RN) 2 tablet, Oral, 2 TIMES DAILY, First dos e on Sun10/20/18 at 211, Until Discontinued, Routine sodium chloride 0.9 % (flush) flush 5 mL 899 (Not Giv en - Provider: Haydee Oliveros RN - Reason: See comment - Comment: infusing)2030 (Given - Provider: Kar Hernandez RN) 900 (Given - Provider: Haydee holguin RN)2102 (Given - Provider: Kar Hernandez RN) 5 mL, Intravenous, 2 TIMES DAILY, First dose on Sun10/20/18 at 2115, Until Discontinued, Routine vancomycin 1 g in 0.9 % sodium chloride 200 mL (CANCEL ED) 0504 (New Bag - Provider: Kar Hernandez RN)0604 (Stopped - Provider: Kar Hernandez RN)1313 (New Bag - Provider: Haydee Oliveros RN)1413 (Stopped - Provider: Haydee Oliveros RN)2026 (New Bag - Provider: Kar Hernandez RN) 0546 (New Bag - Provider: Kar Hernandez RN)0646 (Stopped - Provider: Kar Hernandez RN) 1,000 mg, Intravenous, EVERY 8 HOURS, Fi rst dose on Sun10/21/18 at 0600, Until Discontinued, Administer over 60 Minutes, Maximum infusion rate is 1 gram/hour. If flushing of the face, neck, upper body, 2125 (Stopped - Provider: Kar Hernandez RN) arms, and/or back occurs decrease infusi on rate by 50% to reduce the severity of symptoms. This medication may have an associated drug lab level. Please see MAR for scheduled level. Warning Vesicant/ Irritant Medication , Indication for (Active or Suspected): B one/Joint vancomycin 1.25 g sodium in chloride 0.9% 250 mL 1502 (New Bag - Provider: Haydee Oliveros RN)1617 (Stopped - Provider: Haydee Oliveros RN)2259 (New Bag - Provider: Kar Hernandez RN) 0014 (Stopped - Provider: James Wilkerson N) 1,250 mg, Intravenous, EVERY 8 HOURS, Fi rst dose on Sun10/22/18 at 1400, Until Discontinued, Administer over 75 Minutes, Maximum infusion rate is 1 gram/hour. If flushing of the face, neck, upper body, arms, and/or back occurs decrease infusi on rate by 50% to reduce the severity of symptoms. This medication may have an associated drug lab level. Please see MAR for scheduled level. Warning Vesicant/ Irritant Medication , Indication for (Active or Suspected): B one/Joint Vancomycin Level - MAR Order Reminder NOT APPLICABLE, ONCE, Sun10/23/18 at 133 0, For 1 dose, This alert will be scheduled by a pharmacist after order placement. This order is a reminder to nursing staff to release and draw the PRN drug leve l at the specified time. It may be neces cydney to contact phlebotomy 60 minutes prior to the scheduled due time to assure a timely blood draw. PRN Medication Order 10/21/2018 10/22/2018 10/23/2018 HYDROmorphone (DILAUDID) injection 0.2 mg (CANCELED) 0 550 (Given - Provider: Kar Hernandez RN) 0.2 mg, Intravenous, EVERY 4 HOURS PRN, Starting 10/20/18 at 2058, Until Sun10/21/18 at 1445, Pain, breakthrough pain, May give an additional 0.2 mg in 30 minutes once if pain not relieved., Routine HYDROmorphone (DILAUDID) tablet 2-4 mg 1933 (Given - P rovider: Kar Hernandez RN)2353 (Given - Provider: Kar Hernandez RN) 0548 (Given - Provider: Kar Hernandez, CHRISTEN)1501 (Given - Provider: Haydee Oliveros, CHRISTEN) 2-4 mg, Oral, EVERY 4 HOURS PRN, Startin g Sun10/21/18 at 1443, Until Sun10/23/18 at 0353, Pain, 1 tab for moderate pain (4-6) or 2 tabs for severe pain (7-10), Routine HYDROmorphone (DILAUDID) tablet 6 mg (CANCELED) 0029 ( Given - Provider: Kar Hernandez RN)0425 (Given - Provider: Kar Hernandez RN)0948 (Given - Provider: Haydee Oliveros, CHRISTEN)1319 (Given - Provider: Haydee Oliveros, CHRISTEN) 6 mg, Oral, EVERY 3 HOURS PRN, Starting 10/20/18 at 2058, Until Sun10/21/18 at 1445, Pain, severe pain (7-10), For severe pain (7-10). Do not exceed 6 mg in 4 hours. If pain not relieved, call provider., Routine ibuprofen (ADVIL;MOTRIN) tablet 600 mg 600 mg, Oral, EVERY 6 HOURS PRN, Startin g Sun10/20/18 at 2057, Until Sun10/23/18 at 035, Pain, Administer orally with milk or food to minimize GI irritation , Routine ketorolac (TORADOL) injection 15 mg 15 mg, Intravenous, EVERY 8 HOURS PRN, S tarting Tu10/22/18 at 0621, Until Sun10/23/18 at 035, Pain, Please give prior to discharge, Routine lidocaine (XYLOCAINE) 10 mg/mL (1 %) injection 3 mg 3 mg (0.3 mL), Subcutaneous, ONCE PRN, 1 dose, Starting Sun10/20/18 at 2057, Until Sun10/23/18 at 035, for discomfort with PIV insertion, Routine LORazepam (ATIVAN) tablet 0.5 mg 0.5 mg, Oral, EVERY 12 HOURS PRN, Starti ng Sun10/21/18 at 1017, Until Sun10/23/18 at 035, Anxiety, Use for anxiety 1/2 hour prior to dressing changes only, not for general anxiety, Routine nicotine polacrilex (NICORETTE) gum 2 mg 1531 (Given - Provider: Haydee Oliveros RN) 2 mg, Buccal, EVERY 2 HOURS PRN, Startin g Sun10/21/18 at 1516, Until Sun10/23/18 at 035, Smoking cessation, Chew gum slowly. Do not swallow. Maximum of 48 mg/day., Routine ondansetron (ZOFRAN) injection 4 mg 4 mg, Intravenous, EVERY 8 HOURS PRN, St arting Sun10/20/18 at 2057, Until Sun10/23/18 at 0353, Nausea, If multiple antiemetics are ordered, use ondansetron first, prochlorperazine second, metoclopramide third. sodium chloride 0.9 % (flush) flush 5-20 mL 5-20 mL, Intravenous, EVERY 1 MIN PRN, S tarting Sun10/20/18 at 2057, Until Sun10/23/18 at 035, flush, Flush pertains to all indwelling lines. Flush per protocol found in the job aid using the link provided on this medication record., Routine Linked Groups Order Group 1: nicotine (NICODERM CQ) 14 mg/24 hr patch 14 mgJump to med 14 mg (1 patch), Transdermal, DAILY, Fir st dose on Sun10/21/18 at 1045, Until Discontinued, Routine And nicotine (NICODERM CQ) 14 mg/24 hr patch Patch VerificationJump to med Transdermal, 2 TIMES DAILY, First dose o n Sun10/21/18 at 2230, Until Discontinued
Verify nicotine 14 mg/24 hr patch.
And nicotine (NICODERM CQ) 14 mg/24 hr patch Patch RemovalJump to med Transdermal, DAILY, First dose on Sun at 1030, Until Discontinued
Remove nicotine 14 mg/24 hr patch
documented in this encounter Care Teams Take Away Attendant Relationship Specialty Start Date End Date None PCP - General 10/20/18 02/05/19 None documented as of this encounter
--- OUTSIDE RECORDS SUMMARY | 2021-10-20 07:59 | XMS_ITS | Encounter Summary ---
:1985 Author Organization [facility] [place] [address] Care Team Providers Name Role Phone Mere Gtz APRN Primary Care Provider Reason for Visit Auth/Cert Specialty Diagnoses / Procedures Referred By Contact Refer red To Contact Diagnoses Procedures VAGINAL DELIVERY Referral ID Status Reason Start Date Expiration Date Visits Requ ested Visits Authorized [id number] 1 1 Encounter Details Date Type Department Care Team Description 12/01/2014 - Hospital Encounter Birthing Salomón Serrano, Smoking 12/04/2014 Airam Beltran MD [facility] [place], [place] GYNECOLOGY [id number] [place] [address] [phone] Social History Tobacco Use Types Packs/Day Years Used Date Former Smoker Cigarettes 0.25 Smokeless Tobacco: Never Used Comments: Has maybe 1 a day or 2 Alcohol Use Standard Drinks/Week Comments No 0 (1 standard drink = 0.6 oz pure alcoho l) Not during Sex Assigned at Date Recorded Female 04/13/2020 8:26 AM EST documented as of this encounter Last Filed Vital Signs Vital Sign Reading Time Taken Comments Blood Pressure 132/94 12/04/2014 8:06 AM EDT Pulse 74 12/04/2014 8:06 AM EDT Temperature 36.6 ??C (97.9 ??F) 12/04/2014 8:06 AM EDT Respiratory Rate 16 12/03/2014 9:11 PM EDT Oxygen Saturation 99% 12/04/2014 8:06 AM EDT Inhaled Oxygen Concentration - - Weight 85 kg (187 lb 8 oz) 12/01/2014 12:00 PM EDT Height 175.3 cm (5' 9) 12/01/2014 12:00 PM EDT Body Mass Index 27.69 12/01/2014 12:00 PM EDT documented in this encounter Discharge Summaries Yohana Riley MD - 12/04/2014 5:28 AM EDT Discharge Summary Patient Name: Shirlene Kovacs Patient Age: 29 y.o. Language: Uruguayan Race: White Ethnicity: Not nor Admit date: 12/01/2014 Discharge date and time: 12/04/2014 Attending Physician: Salomón Carlos MD Discharge Physician: Candi Leon Care Provider: [facility] Referring Hospital: [facility] Follow-up Recommendations for Providers: 2 week depression screening [address] Karma Joseph in [facility] Inpatient Provider Contact Information: [facility] INSURANCE ADMINISTRATOR Department, Discharge Diagnoses (Hospital Problems) and Secondary Diagnoses (Chronic Problems) Active Hospital Problems Diagnosis ??? Rubella non-immune status, antepartum Resolved Hospital Problems Diagnosis Date Resolved No resolved problems to display. Active Non-Hospital Problems Diagnosis ??? History of recurrent shingles ??? Trigger finger ??? Post traumatic stress disorder (PTSD) ??? H/O suicide attempt ??? Bipolar affective ?schizophrenia Operations/Major Procedures: Spontaneous Vaginal Delivery, 12/02/2014 Indication for Admission: Labor Managment History of Present Illness: Shirlene Kovacs is a 29 y.o. year old female with an ASHLIE of 12/05/2014 by first-trimester U/S, who is at 39w3d weeks gestation being admitted for labor management. HPI: Shirlene comes in today with complaints of regular contractions and bloody discharge. Her contractions began at 0720 and have been occuring every 3.5-4 minutes. She also noted four episodes of bloody discharge on the toilet paper with wiping. She states the discharge has been faint pink to peach colored. She is unsure is she had any leakage of fluid, but reports changing a panty liner multiple times this morning. She thinks she might have been leaking a small amount of urine. She endorses normal FMs. Otherwise, she denies changes in her health. Her most recent episode of shingles has resolved; she had a recurrence on her left shoulder. She reports nausea earlier this morning. She had an episode of diarrhea two days ago, which is unusual for her as she is typically constipated. otherwise complicated by: 1) History of substance abuse (currently on methadone 9mg) - Prior IV heroin abuse 2) Hepatitis C 3) IBS 4) Hypothyroidism following radiation - On Synthroid 150 mcg qd 5) History of Hodgkin's Lymphoma (diagnosed in 2002 s/p chemo and radiation) 6) Recurrent shingles - Has had two episodes during this 7) bradyarrhythmia detected at 33 weeks; Normal echocardiogram; Normal NC interval and SSA/SSB negative, congenital heart block unlikely. Followed with weekly NSTs. 8) Anxiety and Depression - On Zoloft 25 mg qd 9) Rubella nonimmune - Equivocal on initial labs 10) Asthma - Not using inhaler Hospital Course Including Delivery and Events Patient had a normal spontaneous vaginal delivery on 12/02/2014. APGARS of 9 and 9 at 1 and 5 minutes and had a weight of 3000g. Inspection of the vagina and perineum revealed a first degree lacerationwhich was repaired with 3-0 vicryl suture, a right labial laceration and left periurethral laceration repaired with 3-0 vicryl. Her course was otherwise uneventful. She was continued to methadone 9mg POQD, synthroid 75mch POQD, and zoloft 25mg POQD. Her pain was well controlled with oral pain medications. She had concerns with breast feeding as she had trouble producing milk and thought it may be due to the radiation treatment for her Hodgkin's lymphoma in 2002. She met with the literacy consultant and the baby received donor milk on POD1-2. She was tolerating a regular diet, was ambulating and voiding without difficulty, and was passing flatus. Her fundal exam was as expected, and her lochia was within normal li mits. Patient is in a same sex relationship and does not want anything for contraception. She was discharged to home on PPD#2 with plans for follow up in clinic as above. She will also set up an appointment with her psychiatrist at [facility], Dr. Alexis, for as soon as possible. She remained [facility] the [facility] after discharge to be in the same room as her baby, who will remain at [facility] for 5 days total for feeding and observation. Delivery Information Information for the patient's : Fermín, Baby Girl [[id number]] INFORMATION Baby Kayden Kovacs 12/02/2014 5:56 AM by Vaginal, Spontaneous Delivery Sex: female Gestational Age: 39w4d Given Measurements: Weight: 6 lb 9.8 oz (3000 g) APGARS One Minute Five Minutes Ten Minutes Totals: 9 9 EBL: 250 Vital signs at Discharge: BP: 126/76 mmHg, Heart Rate: 87, Temp: 36.9 ??C (98.4 ??F), Resp: 16, BMI (Calculated): 27.7 Height: 175.3 cm (5' 9) (12/01/14 1200) Weight - Scale: 85.049 kg (187 lb 8 oz) (12/01/14 1200) Functional and Cognitive status: Fully functional, cognitively intact Important Studies and Lab Data: Labs: Last 3 wbc, hgb, hct plt Recent Labs 12/01/14 1500 10/15/14 2130 WBC 20.8* 14.1* HGB 13.3 12.4 HCT 38.1 35.9 PLATELET 387* 309 Recent Results (from the past 72 hour(s)) Rapid Drug Screen, Urine with Confirm Result Value Ref Range IMELDA Marijuana Metabolites Scr None Detected None Detected IMELDA Phencyclidine Scr None Detected None Detected IMELDA Cocaine Metabolites Scr None Detected None Detected IMELDA Methamphetamines Scr None Detected None Detected IMELDA Opiates Scr None Detected None Detected IMELDA Amphetamines Scr None Detected None Detected IMELDA Benzodiazepines Scr None Detected None Detected IMELDA Tricyclics Scr None Detected None Detected IMELDA Methadone Scr Presumptive Pos (A) None Detected IMELDA Barbiturates Scr None Detected None Detected IMELDA Oxycodone Scr None Detected None Detected IMELDA Propoxyphene Scr None Detected None Detected IMELDA Buprenorphine Scr None Detected None Detected Methadone, Urine Confirmation Result Value Ref Range U Meth Conf Test Result Flag Unit RefValue Drug of Abuse, Methadone Conf, U Confirmation - Positive Negative Methadone Methadone 146 ng/mL Cutoff: <100 EDDP 379 ng/mL Cutoff: <100 ADDITIONAL INFORMATION This report is intended for use in clinical monitoring and management of patients. It is not intended for use in employment-related drug testing. Test Performed by: [place] [address] Hat Marker: Nicci Pollock, Ph.D. ABO/Rh Typing Result Value Ref Range ABORh Type A Pos Antibody screen Result Value Ref Range Ab Screen Interp Negative Expires at 2359 on: 12/04/2014 Hemogram Result Value Ref Range WBC 20.8 (H) 4.0 - 10.0 x10(3)/mcL RBC 4.12 3.93 - 5.22 x10(6)/mcL Hemoglobin 13.3 11.2 - 15.7 gm/dL Hematocrit 38.1 34.0 - 45.0 % MCV 92.5 79.0 - 94.0 fL MCH 32.3 (H) 26.6 - 32.2 pg MCHC 34.9 32.0 - 36.5 gm/dL Platelets 387 (H) 145 - 370 x10(3)/mcL RDWSD 44.9 35.0 - 46.0 fL RDWCV 13.4 10.9 - 14.4 % MPV 10.6 9.0 - 12.0 fL Differential, Automated Result Value Ref Range Neutrophils % 81.7 % Neutr Abs (ANC) 17.00 (H) 1.50 - 6.30 x10(3)/mcL Lymphocytes % 12.3 % Lymphocytes Abs 2.6 1.0 - 3.6 x10(3)/mcL Monocytes % 4.9 % Monocyte Abs 1.0 0.2 - 1.0 x10(3)/mcL Eosinophils % 0.3 % Eosinophils Abs 0.1 0.0 - 0.5 x10(3)/mcL Basophils % 0.2 % Basophils Abs 0.0 0.0 - 0.2 x10(3)/mcL Immature Gran % 0.60 % Ayah Gran Abs 0.13 (H) 0.00 - 0.05 x10(3)/mcL Scan, Peripheral Blood Result Value Ref Range Plat Estimate Increased RBC Morphology Normal HIV Screen, 4th Generation Result Value Ref Range HIV-1/2 Ab and Ag Negative Negative Studies: None Pending Studies and Lab Data: Final placental pathology Discharge Conditions/Prognosis: good Discharge to: Home Contraceptive Plans: no method Allergies at Discharge: Allergies Allergen Reactions ??? Duloxetine Hcl ??? Laxative X-Lax ??? Phenolphthalein Other reaction(s): SEIZURES ??? Varenicline Tartrate Other reaction(s): seizure Nausea/Vomiting Immunizations Given this Hospitalization: Immunization History Administered Date(s) Administered ??? Influenza PF, Split 11/25/2014 ??? Tdap Vaccine 09/28/2014 Discharge Medications: Your Medications New Medications Dose Details acetaminophen 325 mg Tab Commonly known as: TYLENOL Take 2 tablets by mouth every 4 hours as needed for Pain. 650 mg Quantity: 30 tablet Refills: 1 docusate sodium 100 mg Cap Commonly known as: COLACE Take 1 capsule by mouth daily as needed for Constipation for up to 10 days. 100 mg Quantity: 10 capsule Refills: 0 ibuprofen 600 mg Tab Commonly known as: ADVIL;MOTRIN Take 1 tablet by mouth every 6 hours as needed for Pain. 600 mg Quantity: 30 tablet Refills: 12 Continued medications, unchanged Dose Details albuterol 90 mcg/actuation Hfaa Commonly known as: PROVENTIL HFA;VENTOLIN HFA;PROAIR Inhale 2 puffs into the lungs every 4 hours as needed for Wheezing. Use with spacer 2 puff Quantity: 1 Inhaler Refills: 1 lansoprazole 15 mg Cpdr Commonly known as: PREVACID Take 15 mg by mouth as needed. 15 mg Refills: 0 methadone 5 mg Tab Commonly known as: DOLOPHINE Take 6 mg by mouth every 8 hours. 6 mg Refills: 0 sertraline 25 mg Tab Commonly known as: ZOLOFT Take 1 tablet by mouth daily. 25 mg Quantity: 30 tablet Refills: 3 STOPPED Medications levothyroxine 150 mcg Tab Commonly known as: SYNTHROID polyethylene glycol 17 gram Pwpk Commonly known as: MIRALAX vitamin with aumianhu-Nf-Kmgt-FA Tab Commonly known as: VITAMIN triamcinolone 0.1 % Crea Commonly known as: KENALOG Smoking Status at Discharge: History Smoking status ??? Former Smoker -- 0.25 packs/day ??? Types: Cigarettes Smokeless tobacco ??? Never Used Comment: Has maybe 1 a day or 2 Instructions Given to Patient at Discharge: Patient Instructions Patient Instructions Follow-up: Six weeks care provider Activity: Nothing in vagina until bleeding stops Do not lift more than 15 pounds No driving for two weeks if you had a section or if you are taking narcotic medication. Please call your OB provider for the following: Fever more than 100.5 degrees Heavy bleeding that saturates a pad an hour Increased abdominal pain, nausea , shaking chills Redness, increased pain, discharge at incision if you had a delivery. Increased pain in the area of stitches outside your vagina. Hot, hard, tender areas on the breast and feeling generally unwell. Depression Contact Numbers: If you see an assistant property manager call: [phone] 9 am - 5 pm, after 5 pm If you see a cutting and splicing supervisor call: [phone] all hours If you see a family practitioner call: [phone] all hours If you were transferred to our institution for delivery and cannot reach your local OB provider, call the assistant property manager numbers. General Instructions None Discharge References/Attachments None documented in this encounter Discharge Instructions Discharge InstructionsAna Ascencio RN - 12/04/2014 12:21 PM EDT Nurse Inpatient Note - Vaginal Delivery Follow-ups: You will have a 6 week follow up appointment with your PCP. You will receive an appointment card in the mail from them with the date and time of that appointment. Immunizations Received: [ ] MMR [ ] Tdap [ ] Inactivated Influenza Vaccine [ ] Other: Medications Received: [ ] Rhogam Given: (time/date) [ ] Depoprovera Given: (time/date) [ ] Other: Additional Instructions: Maternal Discharge Instructions Rest: Although it may seem impossible to get enough rest, simple planning will help. Try to get at least one four hour block of uninterrupted sleep in 24 hours; then plan to rest, and/or sleep when your baby does. Limiting visitors also helps. Fathers and other family members can help by doing housework, caring for other children and/or helping limit visitors. Nutrition: Your diet following the of your baby is as important as it was before the baby was born. Drink a minimum of 6-8 glasses a day. Do not attempt to lose weight during the first six weeks.Continue taking your vitamins until they are gone. Lochia: (Flow) Your flow should be no heavier than a normal period. It will be bright red for 2-3 days and then pinkish and finally colorless. If your flow becomes bright red again, decrease your activity. Do not use tampons until your care provider advises you it is OK. Perineum: For about a week continue to rinse yourself with warm water when you use the toilet. A sitz bath with Epsom salts taken 3-4 times a day may help relieve soreness. Kegel exercise, done regularly throughout the day, will help tighten the perineal muscles and speed recovery. Breast Care for Formula feeding mothers: Wear a well fitting bra to support your breasts. Ice packs to your breasts and Tylenol or Ibuprofen may be used to relieve discomfort from engorgement. Avoid stimulating your breasts: Do not let warm water from the shower fall on them; avoid holding your baby near your breasts until your milk begins to decrease and engorgement is relieved. Breast feeding mothers: Practice careful positioning and frequent feeding as demonstrated in the hospital. The printed information in your packet covers this in detail. Call your doctor or cutting and splicing supervisor for: ??? Fever more than 100.5 ??? Heavy bleeding that saturates a pad an hour ??? Clots larger than a plum ??? Increased abdominal pain, nausea, shaking chills ??? Breast with hot, hard, tender areas on the breast plus flu-like symptoms ??? depression occurs in a large percentage of women. We encourage you to contact your provider or a member of the nursing staff if you are feeling so overwhelmed that you are unable to care for yourself or your baby. Keep your follow up appointment. You may call the [facility] at any time for guidance or for answers to questions that come up prior to you follow up appointment. Your [facility] Provider can be reached during office hours at ??? Midwives ??? Obstetricians ??? [facility] Follow-up Clinic ??? AFTER OFFICE HOURS for the assistant property manager or cutting and splicing supervisor caponizer Provider electronic signature confirms that discharge instructions were reviewed with the patient. Acopy was printed and given to the patient. Patient InstructionsYAsya valdez MD - 12/01/2014 1:47 PM EDT Patient Instructions Follow-up: Six weeks care provider Activity: Nothing in vagina until bleeding stops Do not lift more than 15 pounds No driving for two weeks if you had a section or if you are taking narcotic medication. Please call your OB provider for the following: Fever more than 100.5 degrees Heavy bleeding that saturates a pad an hour Increased abdominal pain, nausea , shaking chills Redness, increased pain, discharge at incision if you had a delivery. Increased pain in the area of stitches outside your vagina. Hot, hard, tender areas on the breast and feeling generally unwell. Depression Contact Numbers: If you see an assistant property manager call: [phone] 9 am - 5 pm, after 5 pm If you see a cutting and splicing supervisor call: [phone] all hours If you see a family practitioner call: [phone] all hours If you were transferred to our institution for delivery and cannot reach your local OB provider, call the assistant property manager numbers. documented in this encounter Medications at Time of Discharge Medication Sig Dispensed Refills Start Date End Date docusate sodium Take 1 capsule by 10 capsule 0 12/04/2014 (COLACE) 100 mg Capsule mouth daily as needed for Constipation for up to 10 days. acetaminophen (TYLENOL) Take 2 tablets by 30 tablet 1 12/0401/14/2015 325 mg Tablet mouth every 4 hours as needed for Pain. ibuprofen Take 1 tablet by 30 tablet 12 12/04/2014 04/09/19 20 (ADVIL;MOTRIN) 600 mg mouth every 6 hours Tablet as needed for Pain. sertraline (ZOLOFT) 25 Take 1 tablet by 30 tablet 3 015 08/27/2017 mg Tablet mouth daily. methadone (DOLOPHINE) 5 Take 6 mg by mouth 0 08/27/2017 mg Tablet every 8 hours. albuterol (PROVENTIL Inhale 2 puffs into 1 Inhaler 1 201408/03/2019 HFA;VENTOLIN the lungs every 4 HFA;PROAIR) 90 hours as needed for mcg/actuation HFA Wheezing. Use with Aerosol Inhaler spacer documented as of this encounter Progress Notes Moni Craven RN - 12/04/2014 12:14 PM EDT OFFICE OF CARE MANAGEMENT Medicare Biller DISCHARGE NOTE: S: No, I have not called yet. But they said I would be all set for this weekend. Pt when discussing guest dosing at [facility] O: Discussed Plan for discharge with primary team and pt'. Plan for Discharge: pt is medically ready for discharge today. She will stay as a boarder until her infant is ready for discharge possibly Sunday. Homecare services provided by: [facility]. PHONE: [phone] FAX: [phone] Pt is part of [facility]. No referral or Orders are needed for her home visits which will resume next week. Clinical has been provided to the above fax number via [employer]. A: Pt is medically ready for discharge home with services outlined above. P: Medicare Biller to follow until discharged if any new needs arise. Moni Craven RN, BSN Medicare Biller assisting [employer] pager [phone] Sherly Leon MD - 12/04/2014 5:24 AM EDT Vaginal Delivery Note Information for the patient's : Fermín, Baby Girl [[id number]] Delivery Date and Time:12/02/2014 5:56 AM Delivery Type: Vaginal, Spontaneous Delivery Pt ID: Shirlene Kovacs is a 29 y.o. who is now a who presented at 39w4d who is PPD#2 following a whose was complicated by opioid dependence and prior IVDU, hepatitis C positive, asthma, anxiety/depression, hypothyroidism, and bradyarrhythmia. Subjective: Notes improvement with techniques after speaking to . Pain well controlled. She is tolerating diet well, urinating and ambulating well. Planning on not using contraception (patient is in same sex relationship). ROS: Denies CARLIN/N/V/CP/SOB Lochia: small, equal to menses Last value Range last 8 hrs Temperature Temp: 36.9 ??C (98.4 ??F) Heart Rate Heart Rate: 87 Blood Pressure BP: 126/76 mmHg Respiratory Rate Resp: 16 Resp: -- SpO2 SpO2: 100 % SpO2: -- Gen: Pleasant. Resting comfortably in bed. NAD. Neuro: Alert and oriented. Cardiac: RRR. No murmurs, rubs, or gallops. Pulm: CTAB. No wheezes, rales, or rhonci. Abd: +BS. Soft. Non tender. Uterine Fundus: firm, 3cm below umbilicus Extremities: No lower extremity edema. Immunization status: Requires MMR Assessment & Plan Shirlene Kovacs is a 29 y.o. who is now a who presented at 39w4d who is PPD#2 following a whose was complicated by opioid dependence and prior IVDU (currently on methadone), hepatitis C positive, asthma, anxiety/depression (currently on zoloft), hypothyroidism, and bradyarrh ythmia. Pt has a history of Hodgkin's lymphoma in 2002 s/p radiation, which she thinks is causing poor milk production. ?? Patient is doing well . ??? Infant nutrition: breast, donor milk, has been involved ??? Contraception: no method (same sex relationship) ?? Depression: continue zoloft 25mg PO QD ?? Opioid Dependence: continue methadone 9mg PO QD ?? Rubella Non-immune: MMR . ??? care: Routine 6 week post visit at [facility] with Dr. Karma Joseph, 2 weekpost depression screening phone call, psychiatry appt at [facility] with Dr. Alexis ??? Dispo: Anticipate discharge on PPD#2 (tomorrow), then room with baby on BP until PPD#5 Patient discussed on rounds. YOHANA RILEY MD PGY1 12/04/2014 The patient is day 2 s/p . I personally saw and evaluated the patient during morning report and rounds with the resident physicians and nursing staff. The patient is making good progress. I agree with Dr. Riley's assessment and plan as documented above. We anticipate discharge on day #2. Sherly LEON MD Moni Craven RN - 12/03/2014 4:38 PM EDT Patient Name: Shirlene Kovacs Patient Age: 29 y.o. Birthdate: 1985 Admit date: 12/01/2014 Attending Physician: Salomón Carlos MD OFFICE OF CARE MANAGEMENT Medicare Biller Follow-up Note S. I have not had a chance to call Nitza. Her number is [phone] O: Discussed plan of care with Primary team and Nursing. Met with Shirlene to assess continuing care and discharge needs. TC to [email or web address] message. Per voice mail this nurse works for [employer]. Will initiate referral for visits after discharge. Pt continues to require hospitalization for: Post care Current referrals in place: [facility] PHONE: [phone] FAX: [phone] A: Discharge plan likely tomorrow. Infant will stay for the weekend. P:Medicare Biller to follow with team and family to assist with discharge needs when patient ready for discharge. Moni Craven RN, Medicare Biller assisting on [facility] Pager #[phone] ADDENDUM: Received a call from Nitza Kovacs. No referral or orders needed. Only need clinical faxed to [phone]. Done today. She will visit once a week for 6 weeks. Nu Trevino, HOSPITALITY HOUSEKEEPER - 12/03/2014 1:31 PM EDT 12/03/14 1300 Living Environment Lives With alone Living Arrangements apartment Provides Primary Care For child(evans) Primary Care Provided by parent(s) Unique Family Situation Pt is in a same sex relationship Quality of Family Relationships supportive;involved Able to Return to Prior Living Arrangements yes Home Safety Feels Safe Living in Home yes Cognitive/Perceptual/Developmental Current Mental Status/Cognitive Functioning no deficits noted Recent Changes in Mental Status/Cognitive Functioning no changes Emotional/Psychological Affect no deficits noted Mood congruent to situation Verbal Skills no deficits noted Current Interpersonal Conduct/Behavior appropriate to situation Mental Health Conditions/Symptoms bipolar affective disorder Thought Process Alterations no deficits noted Previous Mental Health Treatment case management;counseling;medication Mental Health Treatment counseling;medication Mental Health Treatment Date Pt is in a methadone program at [facility] Suicide Risk Suicidal Ideation no Coping/Stress Major Change/Loss/Stressor Patient Personal Strengths able to adapt;courageous;expressive of emotions;expressive of needs;future/goal oriented;humor;motivated;positive attitude;resourceful;self-reliant;strong support system Sources of Support mental health providers;other family members;significant other Reaction to Health Status accepting;adjusting Understanding of Condition and Treatment adequate understanding of medical condition S/O: Met with Pt Shirlene and her sister in room on . Shirlene gave to baby girl Leonard Miranda on 12/02 at 39+4 weeks gestation. Shirlene lives in [place], [place] in her own apartment and this is her first child. Shirlene has a partner named Siobhan who is currently not living with her but is a great support and lives close by. Shirlene is employed at the [employer] and has at least 8 weeks of maternity leave. She is not sure where Leonard will go when she returns to to work but has already visited a few child and adolescent psychologist centers. She has a good friend that is willing to care for her which may be her most comfortable option. Shirlene has Medicaid, WIC and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 bradyarrhythmia again, we will assess cardiac activity with bedside ultrasound. She was consented for a section during her October admission. ?? Labor State: Early latent labor. ?? Heart Rate Assessment: Category 1 ?? Labor management: GBS Management: None Required Additional Issues ?? Opioid dependence/History of IVDU: IMELDA and HIV on admission. Continue methadone 9 mg qd. ?? Hepatitis C positive: Do not use FSE during labor management. ?? Asthma: Avoid Hemabate. ?? Anxiety/Depression: Continue Zoloft 25 mg qd. Two week depression screening. ?? Hypothyroidism s/p radiation: Will confirm patient's prepregnancy dose of Synthroid and write forit after delivery. ?? Rubella Non-immune: Equivocal on testing. Administer MMR . ?? Contraception: Patient is in same-sex relationship. She was previously on Ortho Tri Cyclen for management of menorrhagia. She declines contraception but was offered Mirena IUD for control of her menorrhagia Patient discussed with Dr. Liu, PGY-[address] Carlos, attending. ASYA PATEL MD 12/01/2014 Associated attestation - Salomón Carlos MD - 12/01/2014 5:06 PM EDT I saw and evaluated Shirlene Piter Kovacs. I agree with the findings and the plan of care as documented inthe resident's note. SALOMÓN CARLOS MD documented in this encounter Miscellaneous Notes Plan of Care - Ana Ascnecio RN - 12/04/2014 10:37 AM EDT Problem: General Plan of Care Goal: Plan of Care Review Outcome: Ongoing (Interventions Implemented as Appropriate) 12/01/14 4984 12/04/14 0437 Plan of Care Review Plan of Care Outcome Status ongoing (interventions implemented as appropriate) -- Progress progress toward functional goals as expected -- Coping/Psychosocial Response Interventions Plan of Care Reviewed with -- patient OUTCOME EVALUATION NOTE: OUTCOME SUMMARY: Pain well controlled with PO PRN medications. Patient independent with self care. Patient toleratingregular diet and taking in adequate PO fluids. Patient has been ambulating and voiding appropriatelyand without issues. PLAN MOVING FORWARD: Discharge but remaining as boarder while baby is NORAH scoring INDIVIDUALIZED FALL PREVENTION: Assistance: Independent, SO and family often at bedside Supervision: Patient does not require supervision Surveillance: Purposeful rounding CPG OUTCOME EVALUATION: Goal: Individualization and Mutuality Outcome: Ongoing (Interventions Implemented as Appropriate) 12/03/141852 Individualization Individualize the Plan of Care: plan of care Patient Specific Preferences exclusively breastfeed Patient Specific Goals Breastfeed Patient Specific Interventions Consult Mutuality/Individual Preferences What anxieties, fears or concerns do you have about your health or care? I am anxious about taking my baby home What questions do you have about your health or care? How long will it take to heal? What information would help us give you more personalized care? Include Siobhan in the care and plan Goal: Fall Prevention-Safe Patient Handling Outcome: Ongoing (Interventions Implemented as Appropriate) 12/01/14184312/03/14211112/04/14729 Safety Interventions Safety Precautions/Fall Reduction low bed;family at bedside -- -- Musculoskeletal Interventions Activity/Level of Assistance -- -- up ad paige Positioning -- -- independent Self-Care Promotion -- personal routines for BADL/IADL promoted -- Camacho Fall Risk History of Falling -- -- 0 Secondary Diagnosis -- -- 0 Ambulatory Aids -- -- 0 Intravenous Therapy/Heparin/Saline Lock -- -- 0 Gait/Transferring -- -- 0 Mental Status -- -- 0 Score -- -- 0 OTHER Camacho Fall Risk -- -- Low Goal: Infection Control Outcome: Ongoing (Interventions Implemented as Appropriate) 12/04/14729 Coping/Psychosocial Response Interventions Counseling goal setting facilitated;problem solving facilitated;reassurance provided;relaxation techniques promoted;understanding of situation facilitated;verbalization of feelings encouraged Safety Interventions Isolation Precautions standard precautions maintained Infection Prevention hydration promoted;rest/sleep promoted Goal: Discharge Needs Assessment Outcome: Ongoing (Interventions Implemented as Appropriate) 12/01/141843 Discharge Needs Assessment Concerns to be Addressed mental health concerns;substance/tobacco abuse/use concerns Readmission Within the Last 30 Days no previous admission in last 30 days Equipment Needed After Discharge none Current Health Anticipated Changes Related to Illness none Self-Care Equipment Currently Used at Home none Living Environment Transportation Available car Problem: Following Vaginal Delivery (Adult, Obstetrics) Goal: Signs and symptoms of listed potential problems will be absent or manageable (reference ( Following Vaginal Delivery (Adult, Obstetrics)) CPG) Outcome: Ongoing (Interventions Implemented as Appropriate) 12/03/141852 Following Vaginal Delivery Problems Assessed ( Following Vaginal Delivery) all Problems Present ( Following Vaginal Delivery) none Plan of Care - Deya Lujan RN - 12/04/2014 5:33 AM EDT Problem: General Plan of Care Goal: Plan of Care Review Outcome: Ongoing (Interventions Implemented as Appropriate) 12/01/14184312/03/142111 Plan of Care Review Plan of Care Outcome Status ongoing (interventions implemented as appropriate) -- Progress progress toward functional goals as expected -- Coping/Psychosocial Response Interventions Plan of Care Reviewed with -- patient;significant other OUTCOME EVALUATION NOTE: OUTCOME SUMMARY: Discussed POC with Pt and significant other, answered questions, verbalized understanding. VSS, managing pain with PRN medications, ice applied to perineum, oils applied to nipples. Pt OOB, independentwith self care. Continue to monitor. Plan to D/C PLAN MOVING FORWARD: Continue to monitor, plan to D/C, mother will room in with for further monitoring. INDIVIDUALIZED FALL PREVENTION: Assistance: Family at bedside, call samson within reach. Supervision: Not required at this time, Pt able to call for help. Surveillance: Rounding/VS per protocol. CPG OUTCOME EVALUATION: Goal: Individualization and Mutuality Outcome: Ongoing (Interventions Implemented as Appropriate) 12/03/141852 Individualization Individualize the Plan of Care: plan of care Patient Specific Preferences exclusively breastfeed Patient Specific Goals Breastfeed Patient Specific Interventions Consult Mutuality/Individual Preferences What anxieties, fears or concerns do you have about your health or care? I am anxious about taking my baby home What questions do you have about your health or care? How long will it take to heal? What information would help us give you more personalized care? Include Siobhan in the care and plan Goal: Fall Prevention-Safe Patient Handling Outcome: Ongoing (Interventions Implemented as Appropriate) 12/01/14184312/03/142111 Safety Interventions Safety Precautions/Fall Reduction low bed;family at bedside -- Musculoskeletal Interventions Activity/Level of Assistance -- up ad paige;up in weber;up in room;independently Positioning -- independent Self-Care Promotion -- personal routines for BADL/IADL promoted Cam[place] Fall Risk History of Falling -- 0 Secondary Diagnosis -- 0 Ambulatory Aids -- 0 Intravenous Therapy/Heparin/Saline Lock -- 0 Gait/Transferring -- 0 Mental Status -- 0 Score -- 0 OTHER Camacho Fall Risk -- Low Goal: Infection Control Outcome: Ongoing (Interventions Implemented as Appropriate) 12/03/1474112/03/142111 Coping/Psychosocial Response Interventions Counseling calming techniques promoted;emotional support provided;goal setting facilitated;personal strengths integrated;problem solving facilitated;reassurance provided;relaxation techniques promoted;understanding of situation facilitated;verbalization of feelings encouraged -- Safety Interventions Isolation Precautions -- standard precautions maintained Infection Prevention -- rest/sleep promoted;promote handwashing;nutrition promoted;hydration promoted;environmental surveillance Goal: Discharge Needs Assessment Outcome: Ongoing (Interventions Implemented as Appropriate) 12/01/141843 Discharge Needs Assessment Concerns to be Addressed mental health concerns;substance/tobacco abuse/use concerns Readmission Within the Last 30 Days no previous admission in last 30 days Equipment Needed After Discharge none Current Health Anticipated Changes Related to Illness none Self-Care Equipment Currently Used at Home none Living Environment Transportation Available car Problem: Following Vaginal Delivery (Adult, Obstetrics) Goal: Signs and symptoms of listed potential problems will be absent or manageable (reference ( Following Vaginal Delivery (Adult, Obstetrics)) CPG) Outcome: Ongoing (Interventions Implemented as Appropriate) Plan of Care - Namita Macario RN - 12/03/2014 6:57 PM EDT Problem: General Plan of Care Goal: Plan of Care Review Outcome: Ongoing (Interventions Implemented as Appropriate) 12/01/14184312/03/14741 Plan of Care Review Plan of Care Outcome Status ongoing (interventions implemented as appropriate) -- Progress progress toward functional goals as expected -- Coping/Psychosocial Response Interventions Plan of Care Reviewed with -- patient;significant other OUTCOME EVALUATION NOTE: OUTCOME SUMMARY: Pt doing well s/p on 12/02. VSS. Perineum swollen but well approximated Tolerating diet, ambulating and voiding without issue. Pain controlled with prn pain medication. Denies concerns. Bonding appropriately with . PLAN MOVING FORWARD: Continue to provide and educate on care. Anticipate discharge tomorrow on 12/04. INDIVIDUALIZED FALL PREVENTION: Assistance: None needed- pt ambulated independently with steady gait. Supervision: Call light within reach and family present at bedside. Surveillance: Bedside nurse knowledge exchange and purposeful rounding per unit protocol. CPG OUTCOME EVALUATION: Goal: Individualization and Mutuality Outcome: Ongoing (Interventions Implemented as Appropriate) 12/03/141852 Individualization Individualize the Plan of Care: plan of care Patient Specific Preferences exclusively breastfeed Patient Specific Goals Breastfeed Patient Specific Interventions Consult Mutuality/Individual Preferences What anxieties, fears or concerns do you have about your health or care? I am anxious about taking my baby home What questions do you have about your health or care? How long will it take to heal? What information would help us give you more personalized care? Include Siobhan in the care and plan Goal: Fall Prevention-Safe Patient Handling Outcome: Ongoing (Interventions Implemented as Appropriate) 12/01/14184312/03/14741 Safety Interventions Safety Precautions/Fall Reduction low bed;family at bedside -- Musculoskeletal Interventions Activity/Level of Assistance -- up ad paige;ambulated;independently Positioning -- independent Self-Care Promotion -- independence encouraged while providing assistance Camacho Fall Risk History of Falling -- 0 Secondary Diagnosis -- 0 Ambulatory Aids -- 0 Intravenous Therapy/Heparin/Saline Lock -- 0 Gait/Transferring -- 0 Mental Status -- 0 Score -- 0 OTHER [place] Fall Risk -- Low Goal: Infection Control Outcome: Ongoing (Interventions Implemented as Appropriate) 12/03/14741 Coping/Psychosocial Response Interventions Counseling calming techniques promoted;emotional support provided;goal setting facilitated;personal strengths integrated;problem solving facilitated;reassurance provided;relaxation techniques promoted;understanding of situation facilitated;verbalization of feelings encouraged Safety Interventions Isolation Precautions standard precautions maintained Infection Prevention bronchial hygiene promoted;environmental surveillance;nutrition promoted;hydration promoted;promote handwashing;rest/sleep promoted Goal: Discharge Needs Assessment Outcome: Ongoing (Interventions Implemented as Appropriate) 12/01/141843 Discharge Needs Assessment Concerns to be Addressed mental health concerns;substance/tobacco abuse/use concerns Readmission Within the Last 30 Days no previous admission in last 30 days Equipment Needed After Discharge none Current Health Anticipated Changes Related to Illness none Self-Care Equipment Currently Used at Home none Living Environment Transportation Available car Problem: Pain, Acute (Adult, Obstetrics) Goal: Identify Signs and Symptoms and Related Risk Factors Signs and symptoms and related risk factors are identified upon initiation of Human Response Clinical Practice Guideline (CPG) Outcome: Ongoing (Interventions Implemented as Appropriate) 12/03/14 0435 Pain, Acute Related Risk Factors (Acute Pain) anxiety Signs and Symptoms (Acute Pain) questions meaning of pain;verbalization of pain descriptors Goal: Acceptable Pain Control/Comfort Level Patient will demonstrate the desired outcomes. Outcome: Ongoing (Interventions Implemented as Appropriate) 12/02/14 1720 Pain, Acute (Adult, Obstetrics) Acceptable Pain Control/Comfort Level making progress toward outcome Problem: Following Vaginal Delivery (Adult, Obstetrics) Goal: Signs and symptoms of listed potential problems will be absent or manageable (reference ( Following Vaginal Delivery (Adult, Obstetrics)) CPG) Outcome: Ongoing (Interventions Implemented as Appropriate) 12/03/14 1853 Following Vaginal Delivery Problems Assessed ( Following Vaginal Delivery) all Problems Present ( Following Vaginal Delivery) none Plan of Care - Izabella Neves RN - 12/03/2014 4:48 AM EDT Problem: General Plan of Care Goal: Plan of Care Review Outcome: Ongoing (Interventions Implemented as Appropriate) 12/01/14 1844 12/02/14 1015 Plan of Care Review Plan of Care Outcome Status ongoing (interventions implemented as appropriate) -- Progress progress toward functional goals as expected -- Coping/Psychosocial Response Interventions Plan of Care Reviewed with -- patient;mother;significant other Goal: Individualization and Mutuality Outcome: Ongoing (Interventions Implemented as Appropriate) 12/01/14 1700 12/01/14 1844 Individualization Individualize the Plan of Care: -- early labor management Patient Specific Goals -- wants to move during labor with less intervention Mutuality/Individual Preferences What anxieties, fears or concerns do you have about your health or care? scared about the -- What questions do you have about your health or care? none -- What information would help us give you more personalized care? has a plan -- Goal: Fall Prevention-Safe Patient Handling Outcome: Ongoing (Interventions Implemented as Appropriate) 12/01/14 1844 12/01/14 1937 12/02/14 2200 Safety Interventions Safety Precautions/Fall Reduction low bed;family at bedside -- -- Musculoskeletal Interventions Activity/Level of Assistance -- up ad paige;independently -- Positioning -- independent -- Self-Care Promotion personal routines for BADL/IADL promoted -- -- Camacho Fall Risk History of Falling -- -- 0 Secondary Diagnosis -- -- 0 Ambulatory Aids -- -- 0 Intravenous Therapy/Heparin/Saline Lock -- -- 20 Gait/Transferring -- -- 0 Mental Status -- -- 0 Score -- -- 20 OTHER Camacho Fall Risk -- -- Low Goal: Infection Control Outcome: Ongoing (Interventions Implemented as Appropriate) 12/01/14 1430 12/02/14 2200 Coping/Psychosocial Response Interventions Counseling calming techniques promoted;emotional support provided;goal setting facilitated;personal strengths integrated;relaxation techniques promoted;understanding of situation facilitated;verbalization of feelings encouraged -- Safety Interventions Isolation Precautions -- standard precautions maintained Infection Prevention -- promote handwashing;rest/sleep promoted;nutrition promoted Goal: Discharge Needs Assessment Outcome: Ongoing (Interventions Implemented as Appropriate) 12/01/14 1844 Discharge Needs Assessment Concerns to be Addressed mental health concerns;substance/tobacco abuse/use concerns Readmission Within the Last 30 Days no previous admission in last 30 days Equipment Needed After Discharge none Current Health Anticipated Changes Related to Illness none Self-Care Equipment Currently Used at Home none Living Environment Transportation Available car OUTCOME EVALUATION NOTE: OUTCOME SUMMARY: Patient doing well, VSS, bleeding WNL. IV removed after she voided this evening. Patient is very happy but anxious about caring for her . Her partner Siobhan, is very helpful and calming to both mom and baby. Assisted patient with utilizing the nipple shield. Mother encouraged to pump after with nipple shield every other time. Patient utilizing OTC medications for cramping. PLAN MOVING FORWARD: Encourage patient to keep in the room and perform skin to skin as much as possible. Encouragefrequent and/or pumping. INDIVIDUALIZED FALL PREVENTION: Assistance: Independent, call light in reach. Supervision: Family at bedside. Surveillance: Purposeful rounding. Problem: Pain, Acute (Adult, Obstetrics) Goal: Identify Signs and Symptoms and Related Risk Factors Signs and symptoms and related risk factors are identified upon initiation of Human Response Clinical Practice Guideline (CPG) Outcome: Ongoing (Interventions Implemented as Appropriate) 12/03/14 0435 Pain, Acute Related Risk Factors (Acute Pain) anxiety Signs and Symptoms (Acute Pain) questions meaning of pain;verbalization of pain descriptors Problem: Following Vaginal Delivery (Adult, Obstetrics) Goal: Signs and symptoms of listed potential problems will be absent or manageable (reference ( Following Vaginal Delivery (Adult, Obstetrics)) CPG) Outcome: Ongoing (Interventions Implemented as Appropriate) 12/03/14 0435 Following Vaginal Delivery Problems Assessed ( Following Vaginal Delivery) all Problems Present ( Following Vaginal Delivery) none Plan of Care - Kathy Price RN - 12/02/2014 5:29 PM EDT Problem: General Plan of Care Goal: Plan of Care Review Outcome: Ongoing (Interventions Implemented as Appropriate) 12/01/14 1844 12/02/14 1015 Plan of Care Review Plan of Care Outcome Status ongoing (interventions implemented as appropriate) -- Progress progress toward functional goals as expected -- Coping/Psychosocial Response Interventions Plan of Care Reviewed with -- patient;mother;significant other OUTCOME EVALUATION NOTE: OUTCOME SUMMARY: VSS, assessment WNL. Cox d/c'd at 1545, pt due to void. Pt breast feeding, no breakdownon breasts noted. Utilizing a nipple shield, with good effect on breast feeding. Had consult today. Lochia WNL, Fundus firm, -2. #18 PIV flushing well. HIV lab sent in afternoon (see Results Review). Caring for infant's needs with assist from partner. PLAN MOVING FORWARD: Monitor urine output, encourage independence with feeding, monitor VS, promote mother and baby bonding INDIVIDUALIZED FALL PREVENTION: Assistance: Independent Supervision: Encouraged to call with any questions, changes or concerns Surveillance: Purposeful rounding CPG GOAL OUTCOME EVALUATION: Goal: Individualization and Mutuality Outcome: Ongoing (Interventions Implemented as Appropriate) 12/01/14 1700 12/01/141843 Individualization Individualize the Plan of Care: -- early labor management Patient Specific Goals -- wants to move during labor with less intervention Mutuality/Individual Preferences What anxieties, fears or concerns do you have about your health or care? scared about the -- What questions do you have about your health or care? none -- What information would help us give you more personalized care? has a plan -- Goal: Fall Prevention-Safe Patient Handling Outcome: Ongoing (Interventions Implemented as Appropriate) 12/01/14184312/01/141936 Safety Interventions Safety Precautions/Fall Reduction low bed;family at bedside -- Musculoskeletal Interventions Activity/Level of Assistance -- up ad paige;independently Positioning -- independent Self-Care Promotion personal routines for BADL/IADL promoted -- Camacho Fall Risk History of Falling -- 0 Secondary Diagnosis -- 0 Ambulatory Aids -- 0 Intravenous Therapy/Heparin/Saline Lock -- 20 Gait/Transferring -- 0 Mental Status -- 0 Score -- 20 OTHER Camacho Fall Risk -- Low Goal: Infection Control Outcome: Ongoing (Interventions Implemented as Appropriate) 12/01/14 1430 12/01/141936 Coping/Psychosocial Response Interventions Counseling calming techniques promoted;emotional support provided;goal setting facilitated;personal strengths integrated;relaxation techniques promoted;understanding of situation facilitated;verbalization of feelings encouraged -- Safety Interventions Isolation Precautions -- standard precautions maintained Infection Prevention -- bronchial hygiene promoted;environmental surveillance;hydration promoted;nutrition promoted;promote handwashing;rest/sleep promoted Goal: Discharge Needs Assessment Outcome: Ongoing (Interventions Implemented as Appropriate) 12/01/141843 Discharge Needs Assessment Concerns to be Addressed mental health concerns;substance/tobacco abuse/use concerns Readmission Within the Last 30 Days no previous admission in last 30 days Equipment Needed After Discharge none Current Health Anticipated Changes Related to Illness none Self-Care Equipment Currently Used at Home none Living Environment Transportation Available car Problem: Pain, Acute (Adult, Obstetrics) Goal: Identify Signs and Symptoms and Related Risk Factors Signs and symptoms and related risk factors are identified upon initiation of Human Response Clinical Practice Guideline (CPG) Outcome: Ongoing (Interventions Implemented as Appropriate) Goal: Acceptable Pain Control/Comfort Level Patient will demonstrate the desired outcomes. Outcome: Ongoing (Interventions Implemented as Appropriate) 12/02/14 1720 Pain, Acute (Adult, Obstetrics) Acceptable Pain Control/Comfort Level making progress toward outcome Problem: Following Vaginal Delivery (Adult, Obstetrics) Goal: Signs and symptoms of listed potential problems will be absent or manageable (reference ( Following Vaginal Delivery (Adult, Obstetrics)) CPG) Outcome: Ongoing (Interventions Implemented as Appropriate) 12/02/14 1720 Following Vaginal Delivery Problems Assessed ( Following Vaginal Delivery) all Problems Present ( Following Vaginal Delivery) none Consult Note - Haider Pendleton RN - 12/02/2014 11:19 AM EDT This chart was reviewed for a quality improvement initiative. Haider Pendleton Pager #[phone] Stoney Grullon Pager #[phone] L&D Delivery Note - Joan Mccarthy MD - 12/02/2014 6:27 AM EDT Delivery Note Shirlene Kovacs is a 29 y.o. year old woman at 39w4d weeks gestational age, admitted in spontaneous labor, epidural for analgesia. was complicated by opioid dependence and prior IVDU,hepatitis C positive, asthma, anxiety/depression, hypothyroidism, and bradyarrhythmia. GBS negative She was found to be complete at 0450 with the presenting part at +2 station. She pushed for one hourand spontaneously delivered at 0556 hrs. The 's head was delivered in a controlled fashion. There was a nuchal cord x1 which was easily reduced. The body was delivered without incident. A viable female infant was placed on maternal chest and had APGARS of 9 and 9 at 1 and 5 minutes and had a weight of 3000g. The cord was clamped in 2 places and transected. The fundus became firm with massage and pitocin. The placenta delivered spontaneously after 5 minutes and it was a 3-vessel cord. Inspection of the vagina and perineum revealed a first degree laceration which was repaired with 3-0 vicryl suture, a right labial laceration and left periurethral laceration repaired with 3-0 vicryl. The sulci were examined and found to be intact. No complications. Blood loss estimated at 250ccs. She was in stable condition after delivery. ICN was present at bedside given history of bradyarrhythmia but no resuscitation efforts were necessary. The infant remained in stable condition at the bedside. Dr. Lyle, PGY3 and Dr. Mccarthy, attending physician were present for the entire delivery without any conflicting clinical responsibilities. Yohana Riley MD Information for the patient's : Gregory Kovacs [[id number]] DELIVERY SUMMARY FOR Gregory Kovacs (please note there is a separate summary for each fetus) 12/02/2014 5:56 AM by Vaginal, Spontaneous Delivery Sex: female Gestational Age: 39w4d Labor Events Labor Onset Type: spontaneous onset of labor Augmentation: None Rupture Date: 12/01/14 Rupture Time: 10:07 PM Fluid Color: clear Labor Event Times Labor onset date/time: 12/01/142137 Dilation complete date/time: 12/02/14449 Start pushing date/time: Mother Delivery No data filed Delivery () Delivery Date: 12/02/14 Delivery Time: 555 Sex: Female Presentation: Vertex Occiput Anterior Attempted ?: No Delivery Type: Vaginal Delivery Type (Specific): Vaginal, Spontaneous Delivery Shoulder Dystocia Shoulder dystocia present?: No Delivery Information Delivery Location: delivery room Delivering Clinician: YOHANA RILEY ICCory Staff Present: Yes Other Personnel: Provider Role YNES REYES Delivery Nurse JOAN MCCARTHY Battery Mechanic JUDY HODGSON Delivery Assist YOHANA RILEY Resident SHEBA LYLE Anesthesia Method: Spinal, Epidural Cord Complications: Nuchal x 1 Gases Sent?: No Assessment & APGARS Living status: Yes Apgars 1 Minute: 5 Minute: 10 Minute 15 Minute 20 Minute Skin Color: 1 1 Heart Rate: 2 2 Reflex Irritability: 2 2 Muscle Tone: 2 2 Respiratory Effort: 2 2 Total: 9 9 Resuscitation Method: Suctioning Suctioning Method: Bulb syringe Maternal Given Feeding and Skin to Skin Maternal Choice for (s) Feeding on Admission: Skin to skin initiation date/time: 12/02/14 0556 Skin to skin with: Mother Medications Naxalone Given?: No Measurements Weight: 3000 g Length: 0.48 m Head Circumference: 0.34 m Placenta Date and Time: 12/02/2014 0601 Removal: Spontaneous Labor Length No data filed I was present for the entire delivery and agree with documentation above. JOAN MCCARTHY MD Plan of Care - Ynes Reyes RN - 12/02/2014 4:45 AM EDT Problem: Pain, Acute (Adult, Obstetrics) Intervention: Pain Management Interventions After CSE patient states no pain relief yelling, tearful and thrashing around in bed. MD Quezadaremained at bedside and administered epidural bolus. (see anesthesia notes.) MD Quezada remainedat bedside until patient stated relief. Continue to monitor for further pain management needs. Plan of Care - Ynes Reyes RN - 12/01/2014 10:59 PM EDT Problem: Labor (Obstetrics) Intervention: Category II/Category III Heart Rate Tracing Prevent/Minimize At time 2230, EFM appears to divide FHR by half (to 60bpm from baseline of approximately 135bpm); RNat bedside and continuous FHR is audible through EFM as arrhythmic beat at rate indicated. Return toFHR baseline following 25 seconds of this pattern. Repeated event at time 2239 for x30 seconds. During epidural placement, repetitive occurrence of this event throughout positioning, however, difficultto discern if it is d/t maternal positioning. Ryan Riley and Valdo notified and at bedside to reviewEFM with RNs. Pt currently in post-epidural recovery phase. MD Lyle stated overall EFM is reassuring and with known bradyarrhythmia and normal echo, that concern is noted, however, aggressive i nterventions are not warranted at this point. Continue to monitor continuously and per orders. MD Mccarthy reviewed Cardiology record and momentary drops in FHR d/t bradyarrhythmia expected. Plan of Care - Judy Hodgson RN - 12/01/2014 8:38 PM EDT Problem: Labor (Obstetrics) Intervention: Antepartum Infection Prevention Pt c/o small LOF at 1900. Peripad placed and at 2030 observed very small amount of clear/pink-tingedfluid. New peripad placed. Encouraged pt to notify staff if continued LOF happened. Plan of Care - Judy Hodgson RN - 12/01/2014 8:31 PM EDT Problem: Pain, Acute (Adult, Obstetrics) Intervention: Pain Management Interventions Pt requested to be in bed for NST and requested cold pack to lower back. Use of peripacks to lower back and called supply center for continous temperature pad. Anesthesia MD in room to consent for epidural. Pt does not request epidural at this time, but did request to be consented prior to potential request. Plan of Care - Judy Hodgson RN - 12/01/2014 8:29 PM EDT Problem: Labor (Obstetrics) Intervention: Category II/Category III Heart Rate Tracing Prevent/Minimize Pt assisted to room for FHR monitoring. NST for this shift initiated. Plan of Care - Izabella Neves RN - 12/01/2014 7:35 PM EDT Problem: General Plan of Care Goal: Plan of Care Review Outcome: Ongoing (Interventions Implemented as Appropriate) 12/01/141843 Plan of Care Review Plan of Care Outcome Status ongoing (interventions implemented as appropriate) Progress progress toward functional goals as expected Coping/Psychosocial Response Interventions Plan of Care Reviewed with patient Goal: Individualization and Mutuality Outcome: Ongoing (Interventions Implemented as Appropriate) 12/01/14 1700 12/01/141843 Individualization Individualize the Plan of Care: -- early labor management Patient Specific Goals -- wants to move during labor with less intervention Mutuality/Individual Preferences What anxieties, fears or concerns do you have about your health or care? scared about the -- What questions do you have about your health or care? none -- What information would help us give you more personalized care? has a plan -- Goal: Fall Prevention-Safe Patient Handling Outcome: Ongoing (Interventions Implemented as Appropriate) 12/01/14 1430 12/01/141843 Safety Interventions Safety Precautions/Fall Reduction -- low bed;family at bedside Musculoskeletal Interventions Activity/Level of Assistance -- up ad paige Positioning independent -- Self-Care Promotion -- personal routines for BADL/IADL promoted Camacho Fall Risk History of Falling 0 -- Secondary Diagnosis 0 -- Ambulatory Aids 0 -- Intravenous Therapy/Heparin/Saline Lock 20 -- Gait/Transferring 0 -- Mental Status 0 -- Score 20 -- OTHER Camacho Fall Risk Low -- Goal: Infection Control Outcome: Ongoing (Interventions Implemented as Appropriate) 12/01/14 1430 Coping/Psychosocial Response Interventions Counseling calming techniques promoted;emotional support provided;goal setting facilitated;personal strengths integrated;relaxation techniques promoted;understanding of situation facilitated;verbalization of feelings encouraged Safety Interventions Isolation Precautions standard precautions maintained Infection Prevention rest/sleep promoted;promote handwashing;nutrition promoted;hydration promoted Goal: Discharge Needs Assessment Outcome: Ongoing (Interventions Implemented as Appropriate) 12/01/141843 Discharge Needs Assessment Concerns to be Addressed mental health concerns;substance/tobacco abuse/use concerns Readmission Within the Last 30 Days no previous admission in last 30 days Equipment Needed After Discharge none Current Health Anticipated Changes Related to Illness none Self-Care Equipment Currently Used at Home none Living Environment Transportation Available car OUTCOME EVALUATION NOTE: OUTCOME SUMMARY: Patient arrived today in early labor. Patient lives 1 1/2 hours away and was uncomfortable enough with contractions plan to admit patient. Patient has a plan and would like as much freedom to move and change positions which we have done today. Patient has been supported by her partner Siobhan and mother. Discussed the early labor process with patient and she opted to utilize the tub. Patientusing the shower for back pain as well. Patient breathing thru contractions and coping well. Patientisn't opposed to an epidural but would like to avoid IV sedation. PLAN MOVING FORWARD: Continue to assess patient's level of pain and treat accordingly. INDIVIDUALIZED FALL PREVENTION: Assistance: Independent. Call light in reach. Supervision: Partner and mother at the bedside. Surveillance: Purposeful rounding. CPG OUTCOME EVALUATION: Problem: Labor (Obstetrics) Goal: Signs and symptoms of listed potential problems will be absent or manageable (reference (Labor(Obstetrics)) CPG) Outcome: Ongoing (Interventions Implemented as Appropriate) 12/01/141843 Labor Problems Assessed (Labor) all Problems Present (Labor) none documented in this encounter Plan of Treatment Not on filedocumented as of this encounter Procedures Procedure Name Priority Date/Time Associated Comments Diagnosis HIV SCREEN, 4TH Routine 12/02/2014 12:45 Results for this GENERATION PM EDT procedure are i n ([facility]/CGP/APD/[facility]) the resul ts section. SPECIMEN TO PATHOLOGY Routine 12/02/2014 6:51 AM Results for this (NON-OR) EDT procedure are i n the results section. SURGICAL PATHOLOGY Routine 12/02/2014 6:51 AM Res ults for this REPORT EDT procedure are i n the results section. SCAN, PERIPHERAL Routine 12/01/2014 3:00 PM Resul ts for this BLOOD EDT procedure are i n the results section. HEMOGRAM Routine 12/01/2014 3:00 PM Results f or this EDT procedure are i n the results section. DIFFERENTIAL, Routine 12/01/2014 3:00 PM Results for this AUTOMATED EDT procedure are i n the results section. CBC (WITH DIFF) Routine 12/01/2014 3:00 PM EDT ABO/RH TYPING Routine 12/01/2014 2:30 PM Results for this EDT procedure are i n the results section. ANTIBODY SCREEN Routine 12/01/2014 2:30 PM Result s for this EDT procedure are i n the results section. TYPE AND SCREEN Routine 12/01/2014 2:30 PM ([facility]/CGP/VERITO) EDT RAPID DRUG SCREEN W/ Routine 12/01/2014 1:32 PM R esults for this CONFIRMATION, URINE EDT procedur e are in the results section. METHADONE, URINE, Routine 12/01/2014 1:32 PM Resu lts for this CONFIRMATION EDT procedure are i n the results section. documented in this encounter Results HIV Screen, 4th Generation (12/02/2014 12:45 PM EDT) Analysis Performed At [facility] Time Signature HIV-1/2 Ab and Negative Negative [facility] Comment: This 4th Generation HIV test screens [...] Location / / Volume Laterality Blood specimen 12/02/2014 12:45 5 1:34 (specimen) PM EDT PM EDT Resulting Agency Comment Spec In Lab Salomón Carlos MD IMMUNOLOGY ORDERABLES Performing Organization Address City/State/ZIP [place] [address] CERNER [facility] Surgical Pathology Report (12/02/2014 6:51 AM EDT) Component Value Ref Test Analysis Performed At [facility] Range Method Time Signature Surgical The signing pathologist has (i) examined the relevant preparation(s) for the [facility] Pathology specimen(s) and (ii) rendered or confirmed the diagnosis(e s). [facility] Report Accession Number: [id number] ?Location: B P; BP04; A . ?Surgic al Pathology DIAGNOSIS Third trimester placenta, cord and membranes: Positive for chorioamnionitis and funisitis. Ancient marginal hematoma. CR-0 12/04/14 KO 12/04/14 Verified by: ? Alta Zhu MD ?Pathologist ?(Electronic Signature ) The attending pathologist whose signature appears on this re port has reviewed all diagnostic slides and has edited the gross and/ or microscopic portion of the report in evans dering the final pathologic diagnosis. CLINICAL INFORMATION Specimen Submitted: A- Placenta Clinical History: Spontaneous labor at 39 weeks Clinical Diagnosis: S/p SPECIMEN PROCESSING A - Labeled/Fixative: Placenta - for exam, fresh. Qty/Size/Weight: Single, 21.2 x 17.1 x 2.1 cm, 476 grams. Tissue Description: Intact, navarro, discoid. Membranes: Marginal approxim ately 30 percent circummarginate insertion, yellow-pink, cloudy. Cord: 42.2 x 1.1 cm; three vessels; central insertion. Surface: Yellow with a green tinge, cloudy. Maternal Surface: Intact, complete, calcific stippling is pr esent. Parenchyma: Red-purple, spon gy. At the periphery there is a 8.0 x 1.6 cm area of ragged, yellow, rubbery parenchyma. Sections/Processing: (1) mem brane roll; (2) proximal and distal cord; (3) surface; (4) maternal surface; (5) p eripheral, ragged, rubbery yellow parenchyma. (R5) ??cmn Specimen (Source) Anatomical Collection Method Collection Time Re ceived Time Location / / Volume Laterality 12/02/2014 6:51 AM EDT Sheba Adames MD PATHOLOGY/CYTOLOGY ORDERABLE S Performing Organization Address City/[facility]/ZIP [facility] [place] [address] [facility] Specimen to Pathology (NON-OR) (12/02/2014 6:51 AM EDT) Specimen Anatomical Collection Method Collection Time Receive d Time (Source) Location / / Volume Laterality AP Specimen 12/02/2014 6:51 AM 5 6:51 EDT AM EDT Narrative CERNER MILLENNIUM - 12/02/2014 6:51 AM E DT Specimen requisition ordered. ??Separate Pathology report to follow Salomón Carlos MD PATHOLOGY/CYTOLOGY ORDERABLE S Performing Organization Address City/[facility]/ZIP [place] [address] CERNER MILLENNIUM Scan, Peripheral Blood (12/01/2014 3:00 PM EDT) [facility] gist Method Time Signature Plat Estimate Increased CERNER MILLENNIUM RBC Morphology Normal [facility] Specimen Anatomical Collection Method Collection Time Receive d Time (Source) Location / / Volume Laterality Blood specimen 12/01/2014 3:00 PM 015 3:00 (specimen) EDT PM EDT Resulting Agency Comment Spec In Lab Salomón Carlos MD HEMATOLOGY ORDERABLES Performing Organization Address City/[facility]/ZIP [facility] Phon e Number AIRAM BHARATI[address] CERNER MILLENNIUM (ABNORMAL) Differential, Automated (12/01/2014 3:00 PM EDT) Patholo gist Method Time Signature Neutrophils % 81.7 % CERNER MILLENNIUM Neutr Abs (ANC) 17.00 (H) 1.50 - CERNER 6.30 MILLENNIUM x10(3)/mc L Lymphocytes % 12.3 % CERNER MILLENNIUM Lymphocytes Abs 2.6 1.0 - 3.6 CERNER x10(3)/mc MILLENNIUM L Monocytes % 4.9 % CERNER MILLENNIUM Monocyte Abs 1.0 0.2 - 1.0 CERNER x10(3)/mc MILLENNIUM L Eosinophils % 0.3 % CERNER MILLENNIUM Eosinophils Abs 0.1 0.0 - 0.5 CERNER x10(3)/mc MILLENNIUM L Basophils % 0.2 % CERNER MILLENNIUM Basophils Abs 0.0 0.0 - 0.2 CERNER x10(3)/mc MILLENNIUM L Immature Gran % 0.60 % CERNER MILLENNIUM Comment: Immature granulocytes(IG's)percentage an d absolute count will include metamyelocytes, myelocytes, and promyelo cytes. Blood smears from CBCs yielding IG's will be scanned manually for concor dance. If this scan disagrees with the automated IG or if promyelocytes are not ed, a manual differential will be performed. Ayah Gran Abs 0.13 (H) 0.00 - 0.05 x10(3)/mcL CER NER MILLENNIUM Specimen Anatomical Collection Method Collection Time Receive d Time (Source) Location / / Volume Laterality Blood specimen 12/01/2014 3:00 PM 015 3:00 (specimen) EDT PM EDT Resulting Agency Comment Spec In Lab Salomón Carlos MD HEMATOLOGY ORDERABLES Performing Organization Address City/State/ZIP Code Phon e Number AIRAM [place] [address] CERNER MILLENNIUM (ABNORMAL) Hemogram (12/01/2014 3:00 PM EDT) P athologist Signature WBC 20.8 (H) 4.0 - 10.0 CERNER x10(3)/mcL MILLENNIUM RBC 4.12 3.93 - CERNER 5.22 MILLENNIUM x10(6)/mcL Hemoglobin 13.3 11.2 - CERNER 15.7 gm/dL MILLENNIUM Hematocrit 38.1 34.0 - CERNER 45.0 % MILLENNIUM MCV 92.5 79.0 - CERNER 94.0 fL MILLENNIUM MCH 32.3 (H) 26.6 - CERNER 32.2 pg MILLENNIUM MCHC 34.9 32.0 - CERNER 36.5 gm/dL MILLENNIUM Platelets 387 (H) 145 - 370 CERNER x10(3)/mcL MILLENNIUM RDWSD 44.9 35.0 - CERNER 46.0 fL MILLENNIUM RDWCV 13.4 10.9 - CERNER 14.4 % MILLENNIUM MPV 10.6 9.0 - 12.0 CERNER fL [facility] Specimen Anatomical Collection Method Collection Time Receive d Time (Source) Location / / Volume Laterality Blood specimen 12/01/2014 3:00 PM 015 3:00 (specimen) EDT PM EDT Resulting Agency Comment Spec In Lab Salomón Carlos MD HEMATOLOGY ORDERABLES Performing Organization Address City/State/ZIP Code Phon e Number [address] [facility] Antibody screen (12/01/2014 2:30 PM EDT) Patholo gist Method Time Signature Ab Screen Negative [facility] Expires at 12/04/2014 MARIBELL [id number] on: [facility] Specimen Anatomical Collection Method Collection Time Receive d Time (Source) Location / / Volume Laterality Blood specimen 12/01/2014 2:30 PM 015 2:56 (specimen) EDT PM EDT Resulting Agency Comment Spec In Lab Salomón Carlos MD BLOOD BANK ORDERABLES Performing Organization Address City/[facility]/ZIP Code Phon e Number [address] [facility] ABO/Rh Typing (12/01/2014 2:30 PM EDT) P athologist Signature ABORh Type A Pos CERNER MILLENNIUM Specimen Anatomical Collection Method Collection Time Receive d Time (Source) Location / / Volume Laterality Blood specimen 12/01/2014 2:30 PM 015 2:56 (specimen) EDT PM EDT Resulting Agency Comment Spec In Lab Salomón Carlos MD BLOOD BANK ORDERABLES Performing Organization Address City/State/ZIP [place] [address] MARIBELL [facility] Methadone, Urine Confirmation (12/01/2014 1:32 PM EDT) [facility] Method Time Signature U Meth Conf CERNER Test ?Result ?? Flag ??Unit ?? RefValue [facility] Drug of Abuse, Methadone Conf, U ??Confirmation - ?Positive ?Negative ?Methadone ??Methadone ? 146 ?ng/ mL ??Cutoff: <100 ??EDDP ?379 ?ng/mL ??Cutoff: <100 ADDITIONAL INFORMATION This report is intended for use in clinical monitoring and management of patients. It is not intended for use in employment-related drug testing. Test Performed by: [facility] [address] [place] [address] Hat Marker: Nicci Pollock, Ph.D. Specimen Anatomical Collection Method Collection Time Receive d Time (Source) Location / / Volume Laterality Urine specimen 12/01/2014 1:32 PM 015 3:12 (specimen) EDT PM EDT Resulting Agency Comment Spec In Lab Salomón Carlos MD URINE ORDERABLES Performing Organization Address City/State/[place] [address] MARIBELL PRESLEY (ABNORMAL) Rapid Drug Screen, Urine with Confirm (12/01/2014 1:32 PM EDT) [facility] Method Time Signature IMELDA Marijuana None None CERNER Metabolites Scr Detected Detected MILLENNIUM Comment: The marijuana metabolites screen detects the THC Metabolite (14-lcc-9-carboxy-? 9-THC) at concentrations >50 ng/mL. Qualitative Drug screens are reported as ? None Detected? or ? Presumptive Positive? as the results are not routinely confirmed by highly-specific methods. As with any screen occasional f alse positive results from cross-reacting substances can occur. Not for Medico-Legal Purposes. IMELDA Phencyclidine Scr None Detected None Detected CERNER MILLENNIUM Comment: The phencyclidine screen detects phencyc lidine at concentrations >25 ng/mL. Qualitative Drug screens are reported as ? None Detected? or ? Presumptive Positive? as the results are not routinely confirmed by highly-specific methods. As with any screen occasional f alse positive results from cross-reacting substances can occur. Not for Medico-Legal Purposes. IMELDA Cocaine Metabolites Scr None Detected None Detected CERNER MILLENNIUM Comment: The cocaine metabolites screen detects b enzoylecgonine (Cocaine Metabolite) at concentrations >150 ng/mL. Qualitative Drug screens are reported as ? None Detected? or ? Presumptive Positive? as the results are not routinely confirmed by highly-specific methods. As with any screen occasional f alse positive results from cross-reacting substances can occur. Not for Medico-Legal Purposes. IMELDA Methamphetamines Scr None Detected None Detected CERNER MILLENNIUM Comment: The methamphetamine screen detects d-met hamphetamine at concentrations >500 ng/mL. Qualitative Drug screens are reported as ? None Detected? or ? Presumptive Positive? as the results are not routinely confirmed by highly-specific methods. As with any screen occasional f alse positive results from cross-reacting substances can occur. Not for Medico-Legal Purposes. IMELDA Opiates Scr None Detected None Detected CERNER MILLENNIUM Comment: The opiates screen detects opiates at a concentration >100 ng/mL and oxymorphone >250 ng/mL. Qualitative Drug screens are reported as ? None Detected? or ? Presumptive Positive? as the results are not routinely confirmed by highly-specific methods. As with any screen occasional f alse positive results from cross-reacting substances can occur. Not for Medico-Legal Purposes. IMELDA Amphetamines Scr None Detected None Detected C ERNER MILLENNIUM Comment: The amphetamine screen detects d-ampheta mine at concentrations >500 ng/mL. Qualitative Drug screens are reported as ? None Detected? or ? Presumptive Positive? as the results are not routinely confirmed by highly-specific methods. As with any screen occasional f alse positive results from cross-reacting substances can occur. Not for Medico-Legal Purposes. IMELDA Benzodiazepines Scr None Detected None Detected CERNER MILLENNIUM Comment: The benzodiazepines screen detects benzo diazepines at concentrations >150 ng/mL. Not all benzodiazepines cross-traci ct equally with antibody used in this screen. Due to the low dosage of clonaze michelle, false negatives may be obtained due to low concentration of clonazepam m etabolites. Qualitative Drug screens are reported as ? None Detected? or ? Presumptive Positive? as the results are not routinely confirmed by highly-specific methods. As with any screen occasional f alse positive results from cross-reacting substances can occur. Not for Medico-Legal Purposes. IMELDA Tricyclics Scr None Detected None Detected CER NER MILLENNIUM Comment: The tricyclics screen detects tricyclic antidepressants at concentrations >300 ng/mL. Not all tricyclics cross-react eq ually with the antibody used in this screen. Qualitative Drug screens are reported as ? None Detected? or ? Presumptive Positive? as the results are not routinely confirmed by highly-specific methods. As with any screen occasional f alse positive results from cross-reacting substances can occur. Not for Medico-Legal Purposes. IMELDA Methadone Scr Presumptive Pos (A) None Detected CERNER MILLENNIUM Comment: The methadone screen detects methadone a t concentrations >200 ng/mL. Qualitative Drug screens are reported as ? None Detected? or ? Presumptive Positive? as the results are not routinely confirmed by highly-specific methods. As with any screen occasional f alse positive results from cross-reacting substances can occur. Not for Medico-Legal Purposes. IMELDA Barbiturates Scr None Detected None Detected C ERNER MILLENNIUM Comment: The barbiturates screen detects barbitur ate at concentrations >200 ng/mL. Note: Not all barbiturates cross-react equally with antibody used in this screen. Qualitative Drug screens are reported as ? None Detected? or ? Presumptive Positive? as the results are not routinely confirmed by highly-specific methods. As with any screen occasional f alse positive results from cross-reacting substances can occur. Not for Medico-Legal Purposes. IMELDA Oxycodone Scr None Detected None Detected CERCory ER [facility] Comment: The oxycodone screen detects oxycodone a t concentrations >100 ng/mL and oxymorphone >250 ng/ml. Qualitative Drug screens are reported as ? None Detected? or ? Presumptive Positive? as the results are not routinely confirmed by highly-specific methods. As with any screen occasional f alse positive results from cross-reacting substances can occur. Not for Medico-Legal Purposes. IMELDA Propoxyphene Scr None Detected None Detected Mark BERRY [facility] Comment: The propoxyphene screen detects propoxyp hene at concentrations >300 ng/mL. Qualitative Drug screens are reported as ? None Detected? or ? Presumptive Positive? as the results are not routinely confirmed by highly-specific methods. As with any screen occasional f alse positive results from cross-reacting substances can occur. Not for Medico-Legal Purposes. IMELDA Buprenorphine Scr None Detected None Detected [facility] Comment: The buprenorphine screen detects bupreno rphine at concentrations >10 ng/mL. Qualitative Drug screens are reported as ? None Detected? or ? Presumptive Positive? as the results are not routinely confirmed by highly-specific methods. As with any screen occasional f alse positive results from cross-reacting substances can occur. Not for Medico-Legal Purposes. Specimen Anatomical Collection Method Collection Time Receive d Time (Source) Location / / Volume Laterality Urine specimen 12/01/2014 1:32 PM 015 2:17 (specimen) EDT PM EDT Resulting Agency Comment Spec In Lab Salomón Carlos MD URINE ORDERABLES Performing Organization Address City/State/ZIP [place] [address] [facility] documented in this encounter Visit Diagnoses Diagnosis Smoking Tobacco use disorder Rubella non-immune status, antepartum Other specified complication, antepartum documented in this encounter Administered Medications Inactive Administered Medications - up to 3 most recent administrations Medication Order MAR Action Action Date Dose Rate Site acetaminophen (TYLENOL) tablet Given 12/03/2014 10:15 PM EDT 1,0 00 mg 1,000 mg 1,000 mg, Oral, EVERY 6 HOURS PRN, Starting on Sun12/02/14 at 0651, Until Sun12/04/14 at 1549, Pain, - Moderate pain (pain scale 4-6). - Maximum dose of acetaminophen is 4000 mg from all sources in 24 hours., Recovery (Recovery-Hospital Unit), Routine acetaminophen (TYLENOL) tablet 650 mg Given 12/03/2014 7:46 AM EDT 650 mg 650 mg, Oral, EVERY 4 HOURS PRN, Starting on Sun12/02/14 at 0651, Until Sun12/04/14 at 1549, Pain, - Mild pain (pain scale 1-3) - Maximum dose of acetaminophen is 4000 mg from all sources in 24 hours., Recovery ([facility]-Hospital Unit), Routine docusate sodium (COLACE) capsule 100 mg Given 12/03/2014 10:15 PM EDT 100 mg 100 mg, Oral, DAILY PRN, Starting on Sun12/02/14 at 2321, Until Sun12/04/14 at 1549, Constipation, Routine Given 12/03/2014 8:53 AM EDT 100 mg Given 12/03/2014 4:11 AM EDT 100 mg fentaNYL (PF) 50 mcg/mL injection 1 dose, Starting on Sun12/01/14 at 2211, Until Sun at 2215, ALBERT CARBAJAL: cabinet override fentaNYL 2 mcg/mL with BUpivacaine 0.125% (1.25 mg/mL) (1/8%) in NS(PF) 2-0.125 mcg/mL-% neuraxial 1 dose, Starting on Sun12/01/14 at 2137, Until Sun at 2240, YNES REYES: cabinet override fentaNYL 2 mcg/mL, BUpivacaine New Bag 12/01/2014 10:40 PM EDT 10 mL/hr 10 mL/hr (MARCAINE) 0.125% (1.25 mg/mL)(1/8%) in sodium chloride 0.9% 250 mL epidural 10 mL/hr, Epidural, CONTINUOUS + PCEA, Starting on Sun12/01/14 at 2330, Until Sun12/02/14 at 0651, Maximum rate for continuous infusion 14 mL per hour Maximum total epidural rate (continuous and PCEA bolus) is 25 mL per hour. Please remove epidural catheter after delivery. thanks, Routine fentaNYL 50mcg/mL injection Given 12/01/2014 10:15 PM EDT 100 mcg 100 mcg, Epidural, ONCE, 1 dose, On Sun12/01/14 at 2330, Routine ibuprofen (ADVIL;MOTRIN) tablet 600 mg Given 12/04/2014 5:21 AM EDT 600 mg 600 mg, Oral, EVERY 6 HOURS PRN, Starting on Sun12/02/14 at 0651, Until Sun12/04/14 at 1549, Pain, - Do not give if receiving ketorolac. - Mild to moderate pain (pain scale 1-6) - Maximum dose of 3,200 mg from all sources in 24 hours., Recovery ([facility]Hospital Unit), Routine Given 12/03/2014 6:14 PM EDT 600 mg Given 12/03/2014 12:25 PM EDT 600 mg lactated ringers 500 mL IV bolus Given 12/01/2014 9:00 PM EDT 500 mL/hr at 500 mL/hr, Intravenous, ONCE, 1 dose, On Sun12/01/14 at 1400, Prior to epidural placement or concerning heart rate pattern or maternal condition levothyroxine (SYNTHROID) tablet 75 mcg Given 12/04/2014 6:00 AM EDT 75 mcg 75 mcg, Oral, EVERY MORNING, First dose on Sun12/02/14 at 0900, Until Discontinued, Routine Given 12/03/2014 4:14 AM EDT 75 mcg Given 12/02/2014 9:00 AM EDT 75 mcg methadone (DOLOPHINE) 100 mg/10 mL concentrated Given 12/04/2014 9:00 AM EDT 9 mg oral solution 9 mg 9 mg, Oral, DAILY, First dose (after last modification) on Sun12/02/14 at 0900, Until Discontinued, Liquid methadone should be used to avoid diversion, and a mouth check should be performed after each dose., Routine Given 12/03/2014 8:52 AM EDT 9 mg Given 12/02/2014 9:00 AM EDT 9 mg oxytocin (PITOCIN) 30 units in New Bag 12/02/2014 5:56 AM EDT 30 Units 500 mL/hr sodium chloride 0.9% 500 mL infusion 30 Units (500 mL), Intravenous, at 500 mL/hr, ONCE, 1 dose, On Sun12/02/14 at 0715, ., Routine sertraline (ZOLOFT) tablet 25 mg Given 12/04/2014 9:00 AM EDT 25 mg 25 mg, Oral, DAILY, First dose on Sun12/01/14 at 1500, Until Discontinued, Routine Given 12/03/2014 12:25 PM EDT 25 mg Given 12/02/2014 9:00 AM EDT 25 mg sodium chloride 0.9 % flush 5 mL Given 12/01/2014 9:00 PM EDT 5 mLs 5 mL, Intravenous, EVERY 12 HOURS, First dose on Sun12/01/14 at 1400, Until Discontinued, Routine documented in this encounter Active and Recently Administered Medications Times are shown in EDT. Scheduled Medication Order 12/02/2014 12/03/2014 12/04/2014 levothyroxine (SYNTHROID) tablet 75 mcg (CANCELED) 090 0 (Given - Provider: Susy Cabello, CHRISTEN) 0414 (Given - Provider: Izabella Severino RN)0600 (Not Given - Provider: Namita Macario RN - Reason: See comment - Comment: given earlier) 0600 (Given - Provider: Ana Ascencio RN) 75 mcg, Oral, EVERY MORNING, First dose on Sun12/02/14 at 0900, Until Discontinued, Routine methadone (DOLOPHINE) 100 mg/10 mL concentrated oral s olution 9 mg (CANCELED) 0900 (Given - Provider: Susy Cabello, CHRISTEN) 0852 (Given - Provider: Namita Macario, CHRISTEN) 0900 (Given - Provider: Ana powell RN) 9 mg, Oral, DAILY, First dose on Sun at 0900, Until Discontinued, Liquid methadone should be used to avoid diversion, and a mouth check should be performed after each dose., Routine oxytocin (PITOCIN) 30 units in sodium chloride 0.9% 50 0 mL infusion (COMPLETED) 0556 (New Bag - Provider: Ynesumesh Reyes RN) 30 Units (500 mL), Intravenous, at 500 m L/hr, ONCE, 1 dose, Sun12/02/14 at 0715, ., Routine sertraline (ZOLOFT) tablet 25 mg (CANCELED) 0900 (Give n - Provider: Susy Cabello, CHRISTEN) 1225 (Given - Provider: Namita Macario RN) 0900 (Give n - Provider: Ana Ascencio RN) 25 mg, Oral, DAILY, First dose on Sun at 1500, Until Discontinued, Routine PRN Medication Order 12/02/2014 12/03/2014 12/04/2014 acetaminophen (TYLENOL) tablet 1,000 mg (CANCELED) 0746 (See Alternative - Provider: Namita Macario RN)221 (Given - Provider: Deya Lujan, CHRISTEN) 1,000 mg, Oral, EVERY 6 HOURS PRN, Start ing Sun12/02/14 at 0651, Until Sun12/04/14 at 1549, Pain, - Moderate pain (pain scale 4-6). - Maximum dose of acetaminophen is 4000 mg from all sources in 24 hours., Recovery (Recovery- Hospital Unit), Routine acetaminophen (TYLENOL) tablet 650 mg 07 46 (Given - Provider: Namita Macario RN)221 (See Alternative - Provider: Deya Lujan, CHRISTEN) 650 mg, Oral, EVERY 4 HOURS PRN, Startin g Sun12/02/14 at 0651, Until Sun12/04/14 at 1549, Pain, - Mild pain (pain scale 1-3) - Maximum dose of acetaminophen is 4000 mg from all sources in 24 hours., Recovery (Recovery- Hospital Unit), Routine docusate sodium (COLACE) capsule 100 mg 0411 (Given - Provider: Izabella Severino RN)0853 (Given - Provider: Namita Macario RN)221 (Given - Provider: Deya Lujan, CHRISTEN) 100 mg, Oral, DAILY PRN, Starting Sun at 2321, Until Sun12/04/14 at 1549, Constipation, Routine ibuprofen (ADVIL;MOTRIN) tablet 600 mg 0735 (Given - P rovider: Susy Cabello RN)1546 (Given - Provider: Kathy Price RN)2148 (Given - Provider: Izabella Severino RN) 0411 (Given - Provider: Izabella Severino RN)1225 (Given - Provider: Namita Macario, CHRISTEN)1814 (Given - Provider: Namita Macario, CHRISTEN) 0521 (Given - Provider: Deya Lujan, CHRISTEN) 600 mg, Oral, EVERY 6 HOURS PRN, Startin g 12/02/14 at 0651, Until Sun12/04/14 at 1549, Pain, - Do not give if receiving ketorolac. - Mild to moderate pain (pain scale 1-6) - Maximum dose of 3,200 m g from all sources in 24 hours., Recovery (Rec[facility]Hospital Uni t), Routine documented in this encounter Care Teams Business Services Director Relationship Specialty Start Date End Date Mere Gtz APRN PCP - General 04/10/13 04/02/16 documented as of this encounter
--- OUTSIDE RECORDS SUMMARY | 2021-10-20 07:59 | XMS_ITS | Encounter Summary ---
:1985 Author Organization [place] [address] Care Team Providers Name Role Phone Mere Gtz APRN Primary Care Provider Encounter Details Date Type Department Care Team Description 12/07/2014 Telephone Obstetrics and Gynecology Esperanza Funez MD at [facility] Celia gutierrez OBSTETRICS & [place] [address] DEPT [phone] [place] [id number] (Wo rk) Social History Tobacco Use Types [...] this encounter Miscellaneous Notes Telephone Encounter - Esperanza Funez MD - 12/07/2014 5:53 PM EST Telephone note: Shirlene is a 29 yo s/p on 12/02/14. She calls today because she had a visiting nursing come to her house who told her to contact her doctor. She had a mildly elevated BP 138/84, headaches (frontal headache intermittently lasting for an hour at a time), visual changes (sees squiggly lines in the sides of her vision), new edema of fingers andfeet. States that she is sweating a lot and then feels freezing. Denies RUQ pain, fevers. Eating anddrinking normally. Normal bowel and bladder function. Light to moderate lochia. Otherwise feeling relatively well. Discussed that this blood pressure is not technically elevated > 140/90. She can continue to observe. She will have her BP checked tomorrow and if she develops persistent headache, RUQ pain or visual spots she will call back. Will try to set her up for a clinic visit this week otherwise. ESPERANZA FUNEZ MD PGY4 12/07/2014 documented in this encounter Plan of Treatment Not on filedocumented as of this encounter Visit Diagnoses Not on filedocumented in this encounter Care Teams Business Owner/Engineer Relationship Specialty Start Date End Date Mere Gtz APRN PCP - General 04/10/13 04/02/16 documented as of this encounter
--- OUTSIDE RECORDS SUMMARY | 2021-10-20 07:59 | XMS_ITS | Encounter Summary ---
:1985 [place] [address] Care Team Providers Name Role Phone Mere Gtz APRN Primary Care Provider Reason for Visit Auth/Cert Specialty Diagnoses / Procedures Referred By Contact Refer red To Contact Diagnoses Procedures VAGINAL DELIVERY Referral ID Status Reason Start Date Expiration Date Visits Requ ested Visits Authorized [id number] 1 1 Encounter Details Date Type Department Care Team Description 12/01/2014 Anesthesia Event Birthing Trevor Car MD [facility] [place] [address] [place] [address] [phone] Anesthesia Record Procedure Summary Procedure Name Responsible Anesthesia Start Anesthesia Stop Time Anesthesiologist Time Labor Analgesia (proc) Events No events on file. No medications [...] encounter OR Notes Anesthesia Postprocedure Evaluation - Trevor Cates MD - 12/02/2014 5:26 PM EDT Patient: Shirlene Kovacs Procedure(s) Performed: vaginal delivery Actual Anesthetic: CSE Patient location: floor Post-op pain: Adequate analgesia Post-op nausea: no nausea or vomiting Last Vitals: Filed Vitals: 12/02/14 1328 BP: 124/76 Pulse: 75 Temp: 36.8 ??C (98.2 ??F) Resp: 20 Post-op cardiovascular and respiratory status: is stable Level of consciousness: awake, alert and oriented Complications: no apparent complications and tolerated the procedure well Fluid Status: normal Anesthesia Procedure Notes - Jaci Valentin MD - 12/01/2014 11:03 PM EDT Associated Order(s): ANE NEURAXIAL UPDATED Procedure: Neuraxial Block Labor Analgesia Type: Spinal & Epidural The patient was greeted. The sedation plan, its benefits, risks and alternatives were discussed withthe patient. The patient has consented to the procedure. The medical history and chart were reviewed. The timeout was performed. Start time: 12/01/2014 10:30 PM End time: 12/01/2014 10:50 PM Patient Location: [facility] Patient Prep Position: Sitting Prep: Hand Hygiene, Hat, Mask, Sterile Gloves, Chlorhexidine and Patient Draped Injection technique: single-shot and continuous Skin Anesthetic Lidocaine 1% 3 ml Procedure Technique Level of needle insertion: L4-5 Needle approach: midline Needle Type: Chance Henry Gauge: 18 or 27 Needle length: 3.5 in or 4.5 in Needle insertion depth when MICHELLE achieved: 7 cm Technique for Loss of Resistance: MICHELLE air and MICHELLE saline A 20 guage epidural catheter introduced Catheter at skin depth: 12 cm Dressing/Secured with: Chlorhexidine Tegaderm and Tegaderm Number of attempts: 2 Test dose A test dose of 3 mL was administered. Bolus medication Bupivacaine 0.25% 3 ml Fentanyl 75 mcg Intrathecal Injection The patient received the following medication/s as an intrathecal injection: Fentanyl 25 mcg Events/Notes Events: None, Blood aspirated with first attempt in epidural space, so needle removed. Second attempt at a lower lumbar level w/o any complications. Resident/ORDINARY SEAMAN: Dian Fellow: Attending Physician: Dr. Valentin ~~~~~~~~~~~~~~~~~~~~~~~~~~~~~~~~~~~~~~~~~~~~~~~~~~~~~~~~~~~~ Anesthesia Preprocedure Evaluation - Gustavo Carbajal MD - 12/01/2014 8:34 PM EDT Pre-Anesthesia Evaluation for: Shirlene Kovacs a 29 y.o. female. Patient Active Problem List Diagnosis ??? Rubella non-immune status, antepartum Equivocal on initial labs (06/03/2014) - Needs PP Rubella vaccine ??? History of recurrent shingles ~1x/year since age 6. ??? Trigger finger ??? arrhythmia affecting , antepartum ??? Post traumatic stress disorder (PTSD) ??? Supervision of high risk in second trimester Team [facility] Referring hospital/provider PRIYANKA FLORES, SAMU[place], [place] ([facility]) Delivery plan Contraception plan Tubal consent date Aneuploidy screen Opted for quad screen 07/13/14 Cystic fibrosis screen Need for aspirin* negative Early GCT Thyroid screen Increased dose of synthroid 06/19.Needs repeat TSH ~08/05/14 Infant nutrition Childbirth education Pediatric issues/consults *Aspirin High [...] areas of moderate to severe iodine deficiency http://www.who.int/vmnis/database/iodine/iodine_data_status_summary_t2/en/Head and neck radiation ??? Asthma ??? Hepatitis C ??? Drug abuse opioids, last IV heroin [...] disease. Treatment: Chemotherapy and radiation therapy Facility: [facility] ([place], [place]) Protocol: JOE-HD-90; 2 cycles OPPA, 2 [...] disease. Treatment: Chemotherapy and radiation therapy Facility: [facility] ([place], [place]) Protocol: JOE-HD-90; 2 cycles OPPA, 2 [...] asthma as a young child. Past Medical History Diagnosis Date ??? Hodgkin [...] DIAGNOSTIC performed by Ugo Reed MD at [facility] ENDOSCOPY ??? Pro upper gi endoscopy, diagnostic 08/20/2013 EGD, UPPER GI ENDOSCOPY performed by Ugo Reed MD at [facility] ENDOSCOPY ??? Pro endoscopic us exam, esoph 08/20/2013 UPPER EUS- ENDOSCOPIC ULTRASOUND performed by Ugo Reed MD at [facility] END[facility]COPY ??? Pro colonoscopy, biopsy 08/20/2013 COLONOSCOPY FLEXIBLE, WITH BX performed by Ugo Reed MD at [facility] END[facility]COPY ??? Pro colonoscopy, remv lesn, snare 08/20/2013 COLONOSCOPY, POLYPECTOMY, REMOVAL LESION BY SNARE performed by Ugo Reed MD at [facility] ENDOSCOPY ??? Tunneled venous catheter placement ??? Finger fracture surgery ??? Skin biopsy head/neck ??? Leep History Substance Use Topics ??? Smoking status: Former Smoker -- 0.25 packs/day Types: Cigarettes ??? Smokeless tobacco: Never Used Comment: Has maybe 1 a day or 2 ??? Alcohol Use: No Comment: Not during History Drug Use ??? Yes ??? Special: Cocaine, Injected Drugs, Narcotics, Opioids (heroin, pills) Comment: In the past Allergies Allergen Reactions ??? Duloxetine Hcl ??? Laxative X-Lax ??? Phenolphthalein Other reaction(s): SEIZURES ??? Varenicline Tartrate Other reaction(s): seizure Nausea/Vomiting Medications: MAR and/or home medications have been reviewed. Physical Exam: Filed Vitals: 12/01/141936 BP: 134/78 Pulse: 121 Temp: 37.1 ??C (98.8 ??F) Resp: 18 Body mass index is 27.68 kg/(m^2). Height: 175.3 cm (5' 9) Weight - Scale: 85.049 kg (187 lb 8 oz) Airway Assessment: Mallampati: III TM distance: >3 FB Neck ROM: full Tongue ring (asked to remove) Cardiovascular Assessment: Pulmonary Assessment: Dental Assessment: Misc Assessment: IV access: Peripheral line Anesthesia Plan: ASA 2 general, Pt interviewed and examined. Pt is a 29 y.o. female who is and 39w3d here for labor management. Medical history, medications, allergies, and social history reviewed, significant for opioid abuse (methadone), asthma (no current inhalers), hodgkin lymphoma (s/p chemo + radiation in 2002) and hepatitis C. Recent cardiac workup with normal echo and ekg. She reported having seizures after taking several meds (exlax, duloxetine, etc.) but had a negative workup with neurology as per patient. Labs reviewed and listed below. No contraindication to a neuraxial technique. Consent obtained. Risk, benefits discussed; questions answered. Allergies/ADR: -- Duloxetine Hcl -- Laxative -- X-Lax -- Phenolphthalein -- Other reaction(s): SEIZURES -- Varenicline Tartrate -- Other reaction(s): seizure Nausea/Vomiting\ Personal history of problems with anesthesia: negative Family history of anesthesia problems: negative Bleeding Disorder: negative HTN: negative Prior back surgeries/pathology: negative LE numbness/weakness: negative Lab Results Component Value Date/Time HGB 13.3 12/01/2014 03:00 PM PLATELET 387* 12/01/2014 03:00 PM Type and Screen: Lab Results Component Value Date ABORH A Pos 12/01/2014 Discussed potential need for labor analgesia and/or anesthesia to possibly include epidural, spinal,CSE, and anesthesia for (which includes all of the above with the addition of general anesthesia.) Answered all questions, consent obtained and placed in patient's chart. GUSTAVO CARBAJAL MD Informed Consent: PAT Staff Note documented in this encounter Plan of Treatment Not on filedocumented as of this encounter Procedures Procedure Name Priority Date/Time Associated Diagnosis Comme nts ANE NEURAXIAL Routine 12/02/2014 3:40 PM Results for this UPDATED EDT procedure are i n the results section. documented in this encounter Results ANE NEURAXIAL UPDATED (12/02/2014 3:40 PM EDT) Narrative Jaci Valentin MD - 12/02/2014 3: 40 PM EDT Jaci Valentin MD ? 12/02/2014 ??3:40 PM Procedure: ?? Neuraxial Block Labor Analgesia Type: Spinal & Epidural The patient was greeted. The sedation pl an, its benefits, risks and alternatives were discussed with the patient. ??The patient has consented to the procedure. ??The ms dical history and chart were reviewed. ??The timeout was perform ed. Start time: 12/01/2014 10:30 PM End time: 12/01/2014 10:50 PM Patient Location: [facility] Patient Prep Position: Sitting Prep: Hand Hygiene, Hat, Mask, Sterile G loves, Chlorhexidine and Patient Draped Injection technique: single-shot and con tinuous Skin Anesthetic Lidocaine 1% ??3 ml Procedure Technique Level of needle insertion: L4-5 Needle approach: midline Needle Type: Chance Henry Gauge: 18 or 27 Needle length: 3.5 in or 4.5 in Needle insertion depth when MICHELLE achieved : 7 cm Technique for Loss of Resistance: MICHELLE ai r and MICHELLE saline A 20 guage epidural catheter introduced Catheter at skin depth: 12 cm Dressing/Secured with: Chlorhexidine Teg aderm and Tegaderm Number of attempts: 2 Test dose A test dose of 3 mL was administered. Bolus medication Bupivacaine 0.25% 3 ml Fentanyl 75 mcg Intrathecal Injection The patient received the following medic ation/s as an intrathecal injection: Fentanyl ??25 mcg Events/Notes Events: ??None, Blood aspirated with fir st attempt in epidural space, so needle removed. ??Second attem pt at a lower lumbar level w/o any complications. Resident/ORDINARY SEAMAN: Dian Fellow: Attending Physician: ??Dr. Valentin ~~~~~~~~~~~~~~~~~~~~~~~~~~~~~~~~~~~~~~~~ ~~~~~~~~~~~~~~~~~~~~ Salomón Carlos MD ASSOCIATE FINANCIAL PLANNER [facility] documented in this encounter Visit Diagnoses Not on filedocumented in this encounter Care Teams Coal Deliverer Relationship Specialty Start Date End Date Mere Gtz APRN PCP - General 04/10/13 04/02/16 documented as of this encounter
--- OUTSIDE RECORDS SUMMARY | 2021-10-20 07:59 | XMS_ITS | Encounter Summary ---
:1985 Author Organization [facility] [place] [address] Care Team Providers Name Role Phone Edilia Gabriel ISHAAN Primary Care Provider Encounter Details Date Type Department Care Team Description 12/17/2017 Orders Only Cardiology [facility] [place] [address] Social History Tobacco Use Types Packs/Day [...] Associated Diagnosis Comme nts EKG 12-LEAD Routine 12/17/2017 3:28 PM Results f or this EST procedure are i n the results section . documented in this encounter Results EKG 12 Lead (12/17/2017 3:28 PM EST) [facility] gist Method Time Signature Ventricular rate 53 BPM MUSE SYSTEM P-R Interval 135 ms MUSE SYSTEM QRS Duration 86 ms MUSE SYSTEM Q-T Interval 466 ms MUSE SYSTEM QTC Calculated 438 ms MUSE SYSTEM (Bezet) Calculated P [place] 51 degrees MUSE SYSTEM Calculated R [place] 48 degrees MUSE SYSTEM Calculated T [place] 58 degrees MUSE SYSTEM INTERPRETATION Sinus rhythm MUSE SYSTEM Confirmed by MD Francoise, G yenny Rooney ([id number]), copy editor CONSTANTINO AHSTON ([id number]) on 12/24/2017 12:12:10 PM Specimen Anatomical Collection Method Collection Time Receive d Time (Source) Location / / Volume Laterality 12/17/2017 3:28 PM 8 EST 12:12 PM EST Narrative This result has an attachment that is no t available. Unknown ECG ORDERABLES Performing Organization Address City/State/ZIP Code Phon e Number MUSE SYSTEM documented in this encounter Visit Diagnoses Not on filedocumented in this encounter Care Teams Truck Loader Relationship Specialty Start Date End Date Edilia Gabriel APRN PCP - General Family Medicine 07/12/17 09/04/18 documented as of this encounter
--- OUTSIDE RECORDS SUMMARY | 2021-10-20 07:59 | XMS_ITS | Encounter Summary ---
:1985 Author Organization [facility] [place] [address] Care Team Providers Name Role Phone Mere Gtz APRN Primary Care Provider Encounter Details Date Type Department Care Team Description 12/07/2014 Orders Only Obstetrics and Aislinn Trevino Supervisi on of high risk in second trimester; [facility]cology at [facility], RN Hypothyroidism due to acqu[place] [address] Social History Tobacco Use Types Packs/Day Years [...] risk in se cond trimester Unspecified high-risk Hypothyroidism due to acquired atrophy o f thyroid documented in this encounter Care Teams Custodial Aide Relationship Specialty Start Date End Date Mere Gtz APRN PCP - General 04/10/13 04/02/16 documented as of this encounter
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
--- OUTSIDE RECORDS SUMMARY | 2021-10-20 07:59 | XMS_ITS | Encounter Summary ---
:1985 Author Organization [facility] [place] [address] Care Team Providers Name Role Phone Mere Gtz APRN Primary Care Provider Reason for Visit Reason Comments Laboring Auth/Cert - Closed Specialty Diagnoses / Procedures Referred By Contact Refer red To Contact Obstetrics and Procedures [facility] [place] [address] Phone: Referral ID Status Reason Start Date Expiration Date Visits Requ ested Visits Authorized [id number] Closed 11/18/2014 11/18/2015 1 1 Encounter Details Date Type Department Care Team Description 11/18/2014 Hospital Encounter Birthing Meli Correa pervision of high risk in second trimester; Airam Flores MD Hypothyroidism due to acquired atrophy o f thyroid [facility] OBSTETRICS & [place], [place] GYNECOLOGY [address] [place], [place] [phone] [facility] Social History Tobacco Use Types Packs/Day Years Used Date Current Some Day Smoker Cigarettes 0.25 Smokeless Tobacco: Never Used Comments: Has maybe 1 a day or 2 Alcohol Use Standard Drinks/Week Comments No 0 (1 standard drink = 0.6 oz pure alcoho l) Not during Sex Assigned at Date Recorded Female 04/13/2020 8:26 AM EST documented as of this encounter Last Filed Vital Signs Vital Sign Reading Time Taken Comments Blood Pressure 132/75 11/18/2014 4:21 PM EDT Pulse 89 11/18/2014 4:21 PM EDT Temperature 36.7 ??C (98.1 ??F) 11/18/2014 4:21 PM EDT Respiratory Rate 18 11/18/2014 4:21 PM EDT Oxygen Saturation 99% 11/18/2014 4:24 PM EDT Inhaled Oxygen Concentration - - Weight 82.5 kg (181 lb 12.8 oz) 11/18/2014 4:21 PM EDT Height 175.3 cm (5' 9) 11/18/2014 4:21 PM EDT Body Mass Index 26.85 11/18/2014 4:21 PM EDT documented in this encounter Discharge Instructions Discharge InstructionsSheba Worthy RN - 11/18/2014 6:29 PM EDT [facility] Birthing [place] to contact OB doctor [facility] [place] [address] to contact family doctor TERM GESTATION Greater than 37 Weeks Call your provider if: You are having painful contractions/abdominal cramps less than 5 minutes apart for 1 hour ??? walking, resting, or any kind of activity does not make them less painful or go away You have ruptured your membranes ??? Small leakage of fluid or large gush ??? Note appearance of fluid ??? amount ??? color (may be clear, yellowish, green, pea soup-like, blood-tinged, or bloody) ??? time You have noticed a marked decrease in [...] ??? Keep your regularly scheduled doctor or checker and packer appointment NEW MEDICATIONS: SPECIAL INSTRUCTIONS/FOLLOW-UP CARE: documented in this encounter Medications at Time [...] 3 015 08/27/2017 mg Tablet mouth daily. Take 1 tablet by 100 tablet 3 09/28/2014 12/05/19 15 Ijcxclhk-Oc-Gky-Fe-FA mouth daily. ( VITAMIN) TabletIndications: Supervision of high risk in third trimester levothyroxine Take 1 tablet by 30 tablet 12 08/13/201412/04 (SYNTHROID) 150 mcg mouth daily. TabletIndications: Supervision of high risk in second trimester, Hypothyroidism due to acquired atrophy of thyroid methadone (DOLOPHINE) 5 Take 6 mg by mouth 0 08/27/2017 mg Tablet every 8 hours. albuterol (PROVENTIL Inhale 2 puffs into 1 Inhaler 1 201408/03/2019 HFA;VENTOLIN the lungs every 4 HFA;PROAIR) 90 hours as needed for mcg/actuation HFA Wheezing. Use with Aerosol Inhaler spacer triamcinolone (KENALOG) Apply topically 2 0 12/04/2014 0.1 % cream times daily as needed. polyethylene glycol Take 17 g by mouth 0 12/04/2014 (MIRALAX) 17 gram every other day. packet documented as of this encounter Progress Notes Sheba Worthy RN - 11/18/2014 4:26 PM EDT 1610 Patient arrived to unit from clinic. EFM and TOCO placed on patient. Urine collected. MD notified of arrival. Patient states she gets a cramping in her belly. Has had a clear leakage of fluid for the past two days. Meli Nicole MD - 11/18/2014 4:22 PM EDT OB Triage Note Date/time of arrival: 11/18/2014 Shirlene Kovacs is a 29 y.o. at 37w4d with an ASHLIE 12/05/2014 Chief complaint/History of present illness: The patient presents for evaluation after she had non-reactive NST in clinic today where fetus had ? episodes of bradycardia vs arrhythmia vs maternal heart rate. She was sent for repeat NST, BPP, and cervical exam to check labor status. Pt is 29 yo with a history of substance abuse (currently on methadone 9mg), hep C (no treatment received), IBS, hypothyroidism and past lymphoma (diagnosed in 2002 s/p chemo and radiation) who presents with cramping in the inner thighs, vagina, and epigastric area starting today. She thinks these may be small contractions and are 6/10 in severity. She began having a small amount of vaginal dishcarge yesterday that had continued today and controlled with a thin pad. Described as clear and mushy. She also c/o ofa sore throat that began at 1am today and is worse with swallowing. Denies fevers, chills, sweats, rhinorrhea, cough, and no known sick contacts. The pt apparently had an arrhythmia on month ago that spontaneously resolved and she had normal echo. Pt was on suboxone when she found out she was (around 7 weeks GA). Use to use heroine IV before pregancy. Started 1mg of suboxone in Feb 2014 then switched to methadone in April and is currently on 9mg QD. Cigarettes: 1.5 ppd at beginning of and now down to 2 cigarettes a day. Used nicotine patches, then gum, now none. Alcohol: denies during . Social: Has family nearby for social support. Pt was with a female partner and the had intercourse with ex-boyfriend when also going through artifical insemination, so is unsure of exact father. Both ex-partners would like a paternity test and would like to be involved in the child's life. movement: normal Contractions: irregular, every 10-15 minutes Leaking: Amount: trickle and Color: clear Bleeding: none now Preeclampsia signs and symptoms: None Review of Systems Constitutional: Positive for fatigue. Negative for chills and diaphoresis. HENT: Positive for sore throat. Eyes: Negative for visual disturbance. Respiratory: Negative for shortness of breath. Cardiovascular: Negative for chest pain. Gastrointestinal: Positive for abdominal pain. Negative for nausea and vomiting. Genitourinary: Positive for vaginal discharge and vaginal pain. Negative for dysuria, hematuria and vaginal bleeding. Musculoskeletal: Negative for back pain. Neurological: Negative for headaches. Psychiatric/Behavioral: Negative for hallucinations. Ob history: OB History Para Term AB TAB SAB Ectopic Multiple Living 3 2 2 0 # Outc Date GA Lbr Brien/2nd Wgt Sex Del Anes PTL Lv 1 SAB 2 SAB 3 Current Past medical history: Past Medical History Diagnosis Date ??? Hodgkin [...] childhood ??? H/O suicide attempt x2 Past surgical history: Past Surgical History Procedure Laterality Date ??? Pro colonoscopy, diagnostic 08/20/2013 COLONOSCOPY, DIAGNOSTIC performed by Ugo Reed MD at [facility] ??? Pro upper gi endoscopy, diagnostic 08/20/2013 EGD, UPPER GI ENDOSCOPY performed by Ugo Reed MD at [facility] ??? Pro endoscopic us exam, esoph 08/20/2013 UPPER EUS- ENDOSCOPIC ULTRASOUND performed by Ugo Reed MD at [facility] ??? Pro colonoscopy, biopsy 08/20/2013 COLONOSCOPY FLEXIBLE, WITH BX performed by Ugo Reed MD at [facility] ??? Pro colonoscopy, fran simpson, snare 08/20/2013 COLONOSCOPY, POLYPECTOMY, REMOVAL LESION BY SNARE performed by Ugo Reed MD at [facility] ??? Tunneled venous catheter placement ??? Finger fracture surgery ??? Skin biopsy head/neck ??? Leep Family history: Family History Problem Relation Age of Onset ??? Cancer Hodgkin lymphoma in maternal cousin ??? Alcohol Abuse Father Social history: Social History Occupational History ??? unemployed Social History Main Topics ??? Smoking status: Current Some Day Smoker -- 0.25 packs/day Types: Cigarettes ??? Smokeless tobacco: Never Used Comment: Has maybe 1 a day or 2 ??? Alcohol Use: No Comment: Not during ??? Drug Use: Yes Special: Cocaine, Injected Drugs, Narcotics, Opioids (heroin, pills) Comment: In the past ??? Sexual Activity: Partners: Female, Male Medications: Prescriptions prior to admission Medication Sig Dispense Refill Last Dose ??? sertraline (ZOLOFT) 25 mg Tablet Take 1 tablet by mouth daily. 30 tablet 3 Taking at Unknown time ??? Wevbpoky-Cw-Siu-Fe-FA ( VITAMIN) Tablet Take 1 tablet by mouth daily. 100 tablet 3 Taking at Unknown time ??? levothyroxine (SYNTHROID) 150 [...] Take 15 mg by mouth as needed. Not Taking at Unknown time ??? polyethylene glycol (MIRALAX) 17 gram packet Take 17 g by mouth every other day. Taking at Unknown time Allergies: Allergies Allergen Reactions ??? Cymbalta [Duloxetine] ??? Duloxetine Hcl ??? Laxative X-Lax ??? Phenolphthalein Other reaction(s): SEIZURES ??? Varenicline Tartrate Other reaction(s): seizure Nausea/Vomiting Physical exam: Temp: [36.7 ??C (98.1 ??F)] Heart Rate: [89] Resp: [18] BP: (117-132)/(75) SpO2: [99 %] General: Well developed, gravid female. HEENT: no erythema or exudate in the oropharynx Lungs: Clear to auscultation bilaterally, no wheezes or crackles. Heart: Regular rate and rhythm, normal S1/S2, no murmurs/rubs/gallops. Abdomen: Gravid. Bowel sounds present, no masses or hepatosplenomegaly, soft, nontender, nondistended. Cervical exam: Dilation: closed Effacement: thick, posterior FHR evaluation: HR baseline of 120, moderate variability, accelerations present, reactive NST.Contractions minimal, irregular Sterile speculum: vaginal discharge: thick leukorrhea Negative fern test Negative nitrazine test No appearance of ROM The following Labs were obtained: GBS culture sent. Group A strep antigen sent from clinic. Assessment/Plan: 29 y.o. at 37w4d gestation being evaluated for non-reactive NST in clinic. We looked at the NST from clinic and it was not clear whether the FH discontinuity was from mother's heart tracing vs . Fetus tracing appeared normal otherwise. The fetus had a reactive NST on the BP (approx 1 hr of monitoring) and the pt had a normal cervical exam without indication of labor. Labor State: Not in labor. heart rate assessment: Reactive NST - Labor management: Not in labor, discharge home. - Additional issues: pt instructed to return to the clinic in 1 week. If she has significant contractions, gush of vaginal discharge, or any vaginal bleeding, she was instructed to call the clinic. HAM PERALES MD 11/18/2014 documented in this encounter Plan of Treatment Not on filedocumented as of this encounter Procedures Procedure Name Priority Date/Time Associated Diagnosis Comme nts POCT URINE DIPSTICK Routine 11/18/2014 5:42 PM Re sults for this EDT procedure are i n the results section. documented in this encounter Results POCT urine dipstick (11/18/2014 5:42 PM EDT) Analysis Performed At Patho logist Time Signature POC Sp [place] 1.005 1.002 - 1.030 POC pH, UA 7 5.0 - 8.5 POC Leuk, UA neg Negative - Negative POC Nitrite, neg Negative - UA Negative POC Protein, neg Negative - UA Negative mg/dL POC Glucose, normal Normal - UA Normal mg/dL POC Ketone, UA neg Negative - Negative POC Urobil, UA normal 0.2 - 1.0 mg/dL POC Bili, UA neg Negative - Negative POC Blood, UA neg Negative - Negative rony/uL Specimen (Source) Anatomical Collection Method Collection Time Re ceived Time Location / / Volume Laterality Urine specimen 11/18/2014 5:42 PM (specimen) EDT Meli Nicole MD POINT OF CARE TEST ORDERABLE S documented in this encounter Visit Diagnoses Diagnosis Supervision of high risk in se cond trimester Unspecified high-risk 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 Scheduled Medication Order 11/16/2014 11/17/2014 11/18/2014 lactated ringers 1,000 mL IV bolus (COMPLETED) 1713 (Given - Provider: Sheba Worthy RN) Intravenous, ONCE, 1 dose, Sun11/18/14 at 1715 documented in this encounter Care Teams Maintenance Mechanic Relationship Specialty Start Date End Date Mere Gtz APRN PCP - General 04/10/13 04/02/16 documented as of this encounter
--- OUTSIDE RECORDS SUMMARY | 2021-10-20 07:59 | XMS_ITS | Encounter Summary ---
:1985 Author Organization [facility] [place] [address] Care Team Providers Name Role Phone Mere Gtz APRN Primary Care Provider Reason for Visit Reason Comments Right Hand Pain R 5th finger pain Left Hand Pain L 3rd &4th finger pain Encounter Details Date Type Department Care Team Description 11/02/2014 Office Visit Orthopaedics at [facility] [place] [place] Adriel Deal MD Trigger finger [facility] [place] [phone] ORTHOPAEDIC SURG [place] [phone] (Wo rk) Social History Tobacco Use Types Packs/Day Years Used Date Current Some Day Smoker 0.25 Smokeless Tobacco: Never Used Comments: Has maybe 1 a day or 2 Alcohol Use Standard Drinks/Week Comments No 0 (1 standard drink = 0.6 oz pure alcoho l) Not during Sex Assigned at Date Recorded Female 04/13/2020 8:26 AM EST documented as of this encounter Last Filed Vital Signs Vital Sign Reading Time Taken Comments Blood Pressure 108/62 11/02/2014 2:00 PM EDT Pulse 99 11/02/2014 2:00 PM EDT Temperature - - Respiratory Rate - - Oxygen Saturation - - Inhaled Oxygen Concentration - - Weight 80.7 kg (178 lb) 11/02/2014 2:00 PM EDT verbal Height 175.3 cm (5' 9) 11/02/2014 2:00 PM EDT verbal Body Mass Index 26.29 11/02/2014 2:00 PM EDT documented in this encounter Progress Notes Karlie Dickens PA - 11/02/2014 4:17 PM EDT This 29-year-old female comes in today for evaluation of issues with both hands. 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 On the left hand, she notes for the past several weeks now she has been waking up with her long and ring fingers in a locked position. After a while she is able to unlock them. Throughout the day, she has some discomfort, but no further locking. She has swelling at the PIP joints of both the ring and long fingers and actually had us remove her wedding ring before her today because of the swelling. On the right hand, she sustained a fracture of the right small finger about a year and a half ago. She had this treated with screw placement possibly to fuse the DIP joint by Dr. Henley at [facility]. In June of this year she noted that the screw was backing out and she states she had an infection, was treated with Keflex and screw removal and continues to have pain in the distal phalanx area, we do not have any of those records available at this time. The patient comes in today for a second opinion regarding the pain in her right distal phalanx. Examination today with Dr. Deal of the left hand shows swelling at the PIP joints of the long and ring fingers. She is tender in the A1 jarocho area of both fingers. Clicking easily demonstrated. There was locking of the long finger today also. X-rays of the left hand were within normal limits. She admits to normal sensation in all fingers. Hand is well perfused. Examination of the right small finger shows mild erythema over the distal phalanx, but no significant swelling. The incision is well healed. No evidence of infection at this time. She is tender over the distal phalanx in DIP joint. There does seem to be a little of slight motion at the DIP joint and that causes increased discomfort. She does admit to normal sensation in the finger, hands are well perfused. X-rays taken today were reviewed and these show arthritic changes at the DIP joint. They does not appear to be solidly fused at this point. There was a defect in the distal phalanx consistent with prior screw. IMPRESSION: 1. Left long and ring trigger fingers. 2. 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 TREATMENT: For the ring finger and long finger trigger fingers, due to her , we have recommended no injections at this time. We will treat with splinting. We will have OT make her finger based splint today to wear at night and/or she can wrap the fingers with Coban to prevent full flexion at night. If this does not resolve post delivery, we can consider cortisone injection at that time. We did discuss if not relieved with cortisone injections then surgical treatment is sometimes needed. Regarding the right fifth finger, we will attempt to obtain her records from [facility] and previous x-rays and we have recommended splinting the DIP joint, OT made her a splint today. She should wear this near radio time buyer to see if we can get this finger to fuse and become less painful. Followup as needed at this point. She is going to see how she does post delivery and see if any further treatment is needed. documented in this encounter Plan of Treatment Not on filedocumented as of this encounter Visit Diagnoses Diagnosis Trigger finger Trigger finger (acquired) documented in this encounter Care Teams Configuration Technician Relationship Specialty Start Date End Date Mere Gtz APRN PCP - General 04/10/13 04/02/16 documented as of this encounter
--- OUTSIDE RECORDS SUMMARY | 2021-10-20 07:59 | XMS_ITS | Encounter Summary ---
:1985 Author Organization [facility] [place] [address] Care Team Providers Name Role Phone Mere Gtz APRN Primary Care Provider Encounter Details Date Type Department Care Team Description 11/02/2014 Hospital Encounter XRay at [facility] Bilateral hand pain [address] [place] [phone] Social History Tobacco Use Types Packs/Day [...] by 100 tablet 3 09/28/2014 12/05/19 15 Cvzhiyhq-Fr-Hvo-Fe-FA mouth daily. ( VITAMIN) TabletIndications: Supervision of [...] other day. documented as of this encounter Plan of Treatment Not on filedocumented as of this encounter Procedures Procedure Name Priority Date/Time Associated Diagnosis Comme nts XR HANDS MIN 3 Routine 11/02/2014 1:52 PM Bilateral hand pain Results for this VIEWS BILAT EDT procedure are i n the results section. documented in this encounter Results XR Bilateral Hands Minimum 3 Views (11/02/2014 1:52 PM EDT) Anatomical Region Laterality Modality Hand Bilateral Radiographic Imaging Specimen (Source) Anatomical Collection Method Collection Time Re ceived Time Location / / Volume Laterality 11/02/2014 1:52 PM EDT Impressions 11/02/2014 2:53 PM EDT IMPRESSION: Probable epidermal inclusion cyst in dis cristina phalanx of right fifth finger. Irregularity of right fifth DIP joint - ??recommend clinical correlation. Narrative 11/02/2014 2:53 PM EDT EXAMINATION: BILATERAL HANDS MIN 3 VIEWS CLINICAL HISTORY: BILAT HAND PAIN R>L EVANS RG. X 3 FOR R 5TH FINGER FX TN TECHNIQUE: PA lateral and oblique both h ands COMPARISON: None FINDINGS: There is a well-defined lytic lesion in the tuft of the distal phalanx of the right fifth finger. The finding is most consistent with an epidermal inclusion cyst possibly related to recent surgery or other percutaneous trauma. The right fifth DIP joint also appears irregular o n the lateral projection. No definite fracture or dislocation is seen. The lef t hand appears normal. Procedure Note Magdaleno Whitaker MD - 11/02/2014Formatt ing of this note might be different from the original. EXAMINATION: BILATERAL HANDS MIN 3 VIEWS CLINICAL HISTORY: BILAT HAND PAIN R>L EVANS RG. X 3 FOR R 5TH FINGER FX TN TECHNIQUE: PA lateral and oblique both h ands COMPARISON: None FINDINGS: There is a well-defined lytic lesion in the tuft of the distal phalanx of the right fifth finger. The finding is most consistent with an epidermal inclusion cyst possibly related to recent surgery or other percutaneous trauma. The right fifth DIP joint also appears irregular o n the lateral projection. No definite fracture or dislocation is seen. The lef t hand appears normal. IMPRESSION IMPRESSION: Probable epidermal inclusion cyst in dis cristina phalanx of right fifth finger. Irregularity of right fifth DIP joint - recommend clinical correlation. Adriel Deal MD IMG DX ORDERABLES documented in this encounter Visit Diagnoses Diagnosis Bilateral hand pain Pain in limb documented in this encounter Care Teams Business Librarian Relationship Specialty Start Date End Date Mere Gtz APRN PCP - General 04/10/13 04/02/16 documented as of this encounter
--- OUTSIDE RECORDS SUMMARY | 2021-10-20 07:59 | XMS_ITS | Encounter Summary ---
:1985 Author Organization [facility] [place] [address] Care Team Providers Name Role Phone Edilai Gabriel APRN Primary Care Provider Encounter Details Date Type Department Care Team Description 09/13/2017 Telephone Endocrinology at [facility] [place] [address] Social History Tobacco Use Types Packs/Day Years Used Date Former Smoker Cigarettes 0.5 Smokeless Tobacco: Never Used Comments: Has maybe 1 a day or 2 Alcohol Use Standard Drinks/Week Comments No 0 (1 standard drink = 0.6 oz pure alcoho l) Not during Sex Assigned at Date Recorded Female 04/13/2020 8:26 AM EST documented as of this encounter Miscellaneous Notes Telephone Encounter - Livier Luna LPN - 09/13/2017 11:51 AM EDT R/c patient who left message on wrong nurse line. Call transferred to . documented in this encounter Plan of Treatment Not on filedocumented as of this encounter Visit Diagnoses Not on filedocumented in this encounter Care Teams Inspector Optical Instrument Relationship Specialty Start Date End Date Edilia Gabriel APRN PCP - General Family Medicine 07/12/17 09/04/18 documented as of this encounter
--- OUTSIDE RECORDS SUMMARY | 2021-10-20 07:59 | XMS_ITS | Encounter Summary ---
:1985 Author Organization [facility] [place] [address] Care Team Providers Name Role Phone GtzMere APRN Primary Care Provider Reason for Visit Reason Onset Date Comments Other 10/09/2014 Encounter Details Date Type Department Care Team Description 10/09/2014 Telephone Obstetrics and Gynecology at [place] [address] Social History Tobacco Use Types Packs/Day Years [...] Telephone Encounter - Aislinn Trevino RN - 10/09/2014 12:26 PM EDT Caller: Shirlene Learning Needs Assessment Reviewed: no Subjective Patient presents with: Other Objective/Assessment: Shirlene denies LOF, bleeding, cramping and has + FM. Symptom onset: yesterday Location:under my boobs Duration: a minute Characteristics: tightening Aggravating factors: lifting heavy laundry bags Relieving factors: resting, laying down Timing: Severity: still able to work Pertinent Past Medical History: [employer] service, 31+6 weeks Plan Intervention/Plan/ Follow Up: Shirlene states her boss is willing to allow her to go home from work now. Advised to go home, rest onleft or right side and push fluids. If this pain continues to occur every 10 minutes or less, she isasked to call back for further assessment. documented in this encounter Plan of Treatment Not on filedocumented as of this encounter Visit Diagnoses Not on filedocumented in this encounter Care Teams Seafood Processor Relationship Specialty Start Date End Date Mere Gtz APRN PCP - General 04/10/13 04/02/16 documented as of this encounter
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
--- OUTSIDE RECORDS SUMMARY | 2021-10-20 07:59 | XMS_ITS | Encounter Summary ---
:1985 Author Organization [place] [address] Care Team Providers Name Role Phone Mere Gtz APRN Primary Care Provider Reason for Visit Reason Onset Date Comments Pain 10/15/2014 at the umbilicus Encounter Details Date Type Department Care Team Description 10/15/2014 Telephone Obstetrics and Aislinn Trevino Pain ( at the Gynecology at [facility] RN umbilicus) [place] [address] Social History Tobacco Use Types Packs/Day Years [...] Telephone Encounter - Aislinn Trevino RN - 10/15/2014 12:41 PM EDT Caller: Shirlene Learning Needs Assessment Reviewed: yes Subjective Patient presents with: Pain: at the umbilicus Objective/Assessment Symptom onset: started today Location: circular area immediately above the umbilicus Duration: pain when touched Characteristics: normal appearance of belly button Aggravating factors: touching it, pushing it Relieving factors: Timing: Severity: worried that there is a problem. Shirlene also mentions that she has not felt the baby move since last night. The baby usually is very active at night. She denies LOF (+ white discharge that she has had for a while) but no bleeding or contractions. She has called [facility] Ob service already to have a FH check. Pertinent Past Medical History: 32+5 weeks, MFM service Plan Intervention/Plan/ Follow Up: Appointment offered @ [facility], Shirlene prefers being seen @ [facility] ([facility]). Advised to go for FH/NST for reassurance of well being. Shirlene does not describe bulging over or around the umbilicus which could suggest herniation. Will have provider @ [facility] Check this also. documented in this encounter Plan of Treatment Not on filedocumented as of this encounter Visit Diagnoses Not on filedocumented in this encounter Care Teams Training Manager Relationship Specialty Start Date End Date Mere Gtz APRN PCP - General 04/10/13 04/02/16 documented as of this encounter
--- OUTSIDE RECORDS SUMMARY | 2021-10-20 07:59 | XMS_ITS | Encounter Summary ---
:1985 Author Organization [facility] [place] [address] Care Team Providers Name Role Phone Mere Gtz APRN Primary Care Provider Reason for Visit Reason Comments Other Encounter Details Date Type Department Care Team Description 09/17/2014 Telephone Obstetrics and Gynecology at [place] [address] Social History Tobacco Use Types Packs/Day Years [...] this encounter Miscellaneous Notes Telephone Encounter - Victorina Merchant RN - 09/17/2014 10:17 AM EDT Caller: Shirlene to RN Learning Needs Assessment Reviewed: Yes Subjective Patient presents with: Shingles. She states that she has had shingles before. She states that she has a patch of itchy, painful spots on her L shoulder blade. She is afebrile. She thought that she may have had a fever last night, but does not have a temperature. She states that in the past when she has left this untreated it has spread. She is currently 28w and wants to make sure that she and her baby are safe. Objective/Assessment Symptom onset: today Location:L shoulder blade Duration: Characteristics: red, itchy, painful spots Aggravating factors: Relieving factors: Timing: Severity: Pertinent Past Medical History: Hx. Shingles Plan Intervention/Plan/ Follow Up: Spoke with Dr. Doyle. She states that she would like Shirlene to beginValtrex for symptom management, but that there is no threat to her or her baby at this time. Encouraged to have follow up for culture at PCP if recurrent. Telephone Encounter - Victorina Merchant RN - 09/17/2014 10:12 AM EDT ----- Message from Oly Holland sent at 09/17/2014 9:46 AM EDT ----- Please call [phone], she thinks she has shingles. documented in this encounter Plan of Treatment Not on filedocumented as of this encounter Visit Diagnoses Diagnosis Shingles rash Herpes zoster without mention of complic ation documented in this encounter Care Teams Optometric Technician Relationship Specialty Start Date End Date Mere Gtz APRN PCP - General 04/10/13 04/02/16 documented as of this encounter
--- OUTSIDE RECORDS SUMMARY | 2021-10-20 07:59 | XMS_ITS | Encounter Summary ---
:1985 Author Organization [facility] [place] [address] Care Team Providers Name Role Phone Mere Gtz APRN Primary Care Provider Reason for Visit Reason Comments Non-stress Test Auth/Cert - Closed Specialty Diagnoses / Procedures Referred By Contact Refer red To Contact Obstetrics and Procedures [facility] Birthing [place]ne[place] [address] Phone: Referral ID Status Reason Start Date Expiration Date Visits Requ ested Visits Authorized [id number] Closed 11/18/2014 11/18/2015 1 1 Encounter Details Date Type Department Care Team Description 11/18/2014 Routine Obstetrics and Sherly Reno, [place]: 37w4d Gynecology at [facility] [place] [phone] OBSTETRICS & [phone] GYNECOLOGY [place], [place] [address] (Wo rk) Social History Tobacco [...] Sign Reading Time Taken Comments Blood Pressure 117/75 11/18/2014 3:15 PM EDT Pulse - - Temperature - - Respiratory Rate - - Oxygen Saturation - - Inhaled Oxygen Concentration - - Weight 82.5 kg (181 lb 12.8 oz) 11/18/2014 3:15 PM EDT Height - - Body Mass Index 26.85 11/02/2014 2:00 PM EDT documented in this encounter Progress Notes Kathy Duarte MD - 11/18/2014 3:57 PM EDT Shirlene is not feeling well today. Her labia are aching, feels like something is in her vagina - lotsof pressure today. She also reports a weird feeling/pressure in my belly. ?Irregular contractions.She feels like she cannot get comfortable, wants to fan herself. She has a sore throat. Decreased appetite today, +nausea, no vomiting/diarrhea. Drinking fluids as usual. No fevers/chills. No bleeding or LOF. +FM. NST shows periods of bradyarrythmia c/w earlier in , otherwise reassuring but not reactive (see separate documentation). Will send to BP for extended monitoring, BPP if needed, cvxexam, IV hydration. Strep swab collected by Karma Cash LPN. Report called by Dr. Reno. Karma Cash LPN - 11/18/2014 3:02 PM EDT Temp 98.6po, taking robitussin C/C/Flu for sorethroat, pulse 100, pulse ox 98% documented in this encounter Plan of Treatment Not on filedocumented as of this encounter Procedures Procedure Name Priority Date/Time Associated Diagnosis Comme nts GROUP A STREP Routine 11/18/2014 3:48 PM Acute pharyngitis, Re sults for this ANTIGEN (VERITO/JOSS) EDT unspecified procedur e are in pharyngitis type the results section. documented in this encounter Results Group A Strep Antigen (11/18/2014 3:48 PM EDT) Component Value Ref Test Analysis Performed At [facility] Method Time Signature Group A EIA Negative for CERNER Streptococcus Group A [employer] Antigen Screen Streptococcus antigen Specimen Anatomical Collection Method Collection Time Receive d Time (Source) Location / / Volume Laterality Specimen from 11/18/2014 3:48 PM 11/19/19 15 4:24 throat EDT PM EDT (specimen) Resulting Agency Comment Spec In Lab E Candi Reno MD MICROBIOLOGY - GENERAL ORDER MICHEL Performing Organization Address City/State/ZIP [place] [address] [facility] documented in this encounter Visit Diagnoses Diagnosis Acute pharyngitis, unspecified pharyngit is type documented in this encounter Care Teams Vice President Diversity Relationship Specialty Start Date End Date Mere Gtz APRN PCP - General 04/10/13 04/02/16 documented as of this encounter
--- OUTSIDE RECORDS SUMMARY | 2021-10-20 07:59 | XMS_ITS | Encounter Summary ---
:1985 Author Organization [facility] [place] [address] Care Team Providers Name Role Phone Edilia Gabriel APRN Primary Care Provider Encounter Details Date Type Department Care Team Description 12/17/2017 Hospital Encounter Mobile William Collado, Abdomina l pain, Echocardiography MD unspecified [facility] [address] [place] [address] [phone] Social History Tobacco Use Types Packs/Day Years Used Date Never Assessed Sex Assigned at Date Recorded Female 04/13/2020 8:26 AM EST documented as of this encounter Medications at Time of Discharge Medication Sig Dispensed Refills Start Date End Date buprenorphine-naloxone Place 8 mg of 0 02/07/2019 [...] Procedure Name Priority Date/Time Associated Comments Diagnosis ECHOCARDIOGRAM COMPLETE Routine 12/17/2017 12:10 Abdominal brandy n, Results for this PM EST unspecified procedure are i n abdominal location the resul ts section. documented in this encounter Results ECHOCARDIOGRAM COMPLETE (12/17/2017 12:10 PM EST) P athologist Signature EF 67 HEARTLAB SYSTEM Anatomical Region Laterality Modality Other Specimen (Source) Anatomical Location Collection Method / Collectio n Time Received Time / Laterality Volume 12/17/2017 Narrative 12/17/2017 12:15 PM EST Procedure: ?Transthoracic Echocardiogram Patient: ?CHARLY Skelton ? (Age): 1985(32y) Med Rec#: ? [id number] ?Sex: ?F ? Site Loc: ? [facility] ??H t / Wt: ??175.26(cm)/63.5 Pt. Loc: ?Adult Floor ? BSA: ?1.78 Study Date: ?? 12/17/2017 ?Pt. Type: Inpatient Tape: ? Referring: Joy Elizalde Referring: [facility] Referring: Elizabeth Collado Reading: Barry Lopez ([id number]) Pediatrician: Gayathri Davis JASS Diagnosis: *Pneumonia, unspecified organism (J18.9 ) Indication: ?? Pneumonia Rhythm: ? Sinus BP: ? 104/57 SUMMARY: 1. There is normal global left ventricul ar systolic function. ??The quantitative left ventricular ejection f raction by biplane Contreras's method is 67%. ??There are no left ventr icular segmental wall motion abnormalities. 2. Right ventricular chamber size, wall thickness, and systolic function are within normal limits. 3. The cardiac valves appear structurall y and functionally normal. 4. See remainder of report for additiona l findings. Findings ? : Left Ventricle: ? The left ventricul ar chamber size is normal. ?Left ventricular wall thickness is normal. ?There is no evidence of LVOT obstr uction. ?No ventricular septal defect is vi sualized. ?There is normal global left ventri cular systolic function. ?The quantitative left ventricular ejection fraction by biplane Contreras's method is 67%. ?There are no left ventricular segm ental wall motion abnormalities. ?Left ventricular diastolic functio n is normal. ?Doppler assessment is consistent w ith normal left sided filling pressure. Left Atrium: ? The left atrium is no rmal in size. 24 ml/m2. ?No atrial septal defect is visuali zed. Right Ventricle: ? Right ventricular chamber size, wall thickness, and systolic function are within normal limi ts. ?The estimated pulmonary artery sys tolic pressure is 23 mmHg. ?The estimated right atrial pressur e [...] valve appears normal in structure and function. Pericardium: ? The pericardium appea rs normal and there is no evidence of a pericardial effusion. Aorta: ? The aortic root is normal i n size. ?The ascending aorta is normal in s ize. ?There is no evidence of coarctatio n of the aorta. Pulmonary Artery: ? The main pulmona ry artery appears normal. Venous: ? The inferior vena cava laz ears normal in size. ?There is a greater than 50% respir atory change in the inferior vena cava dimension. Misc: ? The cardiac valves appear st ructurally and functionally normal. ?See remainder of report for additi onal findings. ?Two-dimensional echo, spectral Dop pler and color Doppler performed. Chambers 2D ?Value ?Units (Range) ? IVSd (2D) ? 0.6 ?cm ? LVPWd (2D) ?0.6 ?cm ? IVS:LVPW ratio (2D) 0.9 ?ratio ? RWT (2D) ?0.3 ?ratio ? RWT PW (2D) ? 0.3 ?ratio ? LVIDd (2D) ?4.3 ?cm ? LVIDs (2D) ?2.9 ?cm ? LVIDd (2D) index ?2.4 ?cm/m2 ? LVIDs (2D) index ?1.6 ?cm/m2 ? LV FS (2D) ?32 ? % ? EF Teichholz (2D) ?? 61 ? % ? Ao root diameter (2D2.7 ?cm (2.1 - 3.6) ? Ascending Ao ?2.8 ?cm (2 - 3.5) ? Volumes/Mass ?Value ?Units (Range) ? LA Area 4 CH ?15 ? cm2 (<21) ? RA AREA 4CH ? 11 ? cm2 ? LA ESV BP (MOD) inde24.2 ? ml/m2 ? LV ESV SP 4CH (MOD) 44 ? ml ? LV ESV SP 2CH (MOD) 37 ? ml ? LV EDV BP ? 122 ?ml ? LV ESV BP ? 40 ? ml ? LV EDV BP index ? 68.5 ? ml/m2 ? LV ESV BP index ? 22.5 ? ml/m2 ? BP EF (MOD) ? 67 ? % ? LV mass (2D) ?76 ? g ? LV mass (2D) index ??42.7 ? g/m2 ? Diastolic/Systolic Function ?Value ?Units (Range) ? MV E-wave Vmax ?1.1 ?m/sec ? MV deceleration [id number] ?msec ? MV A-wave Vmax ?0.7 ?m/sec ? MV E:A ratio ?1.6 ?ratio ? LV septal e' Vmax ?? 0.1 ?m/sec ? LV lateral e' Vmax ??0.2 ?m/sec ? LV average e' Vmax ??0.2 ?m/sec ? LV E:e' septal ratio7.9 ?ratio ? LV E:e' lateral rati6.3 ?ratio ? LV average E:e' rati6.9 ?ratio ? Tricuspid Valve ?Value ?Units (Range) ? TR Vmax ? 2.2 ?m/sec ? TR peak gradient ?20 ? mmHg ? RAP ? 3 ?mmHg ? RVSP ?23 ? mmHg ? Wall Motion: Segment Name ?Rest ? Base-Anteroseptal ?? Normal ? Base-Anterior ? Normal ? Base-Anterolateral ??Normal ? Base-Posterolateral Normal ? Base-Inferior ? Normal ? Base-Inferoseptal ?? Normal ? Mid-Anteroseptal ?Normal ? Mid-Anterior ?Normal ? Mid-Anterolateral ?? Normal ? Mid-Posterolateral ??Normal ? Mid-Inferior ?Normal ? Mid-Inferoseptal ?Normal ? [place]-Septal ? Normal ? [place]-Anterior ? Normal ? [place]-Lateral ?Normal ? [place]-Inferior ? Normal ? [place]-Tip ?Normal ? This report has been electronically sign ed by: _ Barry Lopez M.D. ? 12/17/2017 12:14:27 Images reviewed and interpretation [facility] Cardiac Ultrasound Laboratory Procedure Note Barry Lopez MD - 12/17/2017Format ting of this note might be different from the original. Procedure: Transthoracic Echocardiogram Patient: CHARLY Skelton DOB(Age): (32y) Med Rec#: [id number] Sex: F Site Loc: [facility] Ht / Wt: 175.26(cm)/63.5 Pt. Loc: Adult Floor BSA: 1.78 Study Date: 12/17/2017 Pt. Type: Inpatie nt Tape: Referring: Joy Elizalde Referring: [facility] Referring: Elizabeth Collado Reading: Barry Lopez Elizabeth ([id number]) Pediatrician: Gayathri Davis [facility] Diagnosis: *Pneumonia, unspecified organism (J18.9 ) Indication: Pneumonia Rhythm: Sinus BP: 104/57 SUMMARY: 1. There is normal global left ventricul ar systolic function. The quantitative left ventricular ejection f raction by biplane Contreras's method is 67%. There are no left ventric ular segmental wall motion abnormalities. 2. Right ventricular chamber size, wall thickness, and systolic function are within normal limits. 3. The cardiac valves appear structurall y and functionally normal. 4. See remainder of report for additiona l findings. Findings : Left Ventricle: The left ventricular maryuri mber size is normal. Left ventricular wall thickness is norm al. There is no evidence of LVOT obstructio n. No ventricular septal defect is visuali zed. There is normal global left ventricular systolic function. The quantitative left ventricular eject ion fraction by biplane Contreras's method is 67%. There are no left ventricular segmental wall motion abnormalities. Left ventricular diastolic function is normal. Doppler assessment is consistent with n ormal left sided filling pressure. Left Atrium: The left atrium is normal i n size. 24 ml/m2. No atrial septal defect is visualized. Right Ventricle: Right ventricular chamb er size, wall thickness, and systolic function are within normal limi ts. The estimated pulmonary artery systolic pressure is 23 mmHg. The estimated right atrial pressure is [...] appea rs normal in structure and function. Pericardium: The pericardium appears nor mal and there is no evidence of a pericardial effusion. Aorta: The aortic root is normal in size . The ascending aorta is normal in size. There is no evidence of coarctation of the aorta. Pulmonary Artery: The main pulmonary art rony appears normal. Venous: The inferior vena cava appears n ormal in size. There is a greater than 50% respiratory change in the inferior vena cava dimension. Misc: The cardiac valves appear structur ally and functionally normal. See remainder of report for additional findings. Two-dimensional echo, spectral Doppler and color Doppler performed. Chambers 2D Value Units (Range) IVSd (2D) 0.6 cm LVPWd (2D) 0.6 cm IVS:LVPW ratio (2D) 0.9 ratio RWT (2D) 0.3 ratio RWT PW (2D) 0.3 ratio LVIDd (2D) 4.3 cm LVIDs (2D) 2.9 cm LVIDd (2D) index 2.4 cm/m2 LVIDs (2D) index 1.6 cm/m2 LV FS (2D) 32 % EF Teichholz (2D) 61 % Ao root diameter (2D2.7 cm (2.1 - 3.6) Ascending Ao 2.8 cm (2 - 3.5) Volumes/Mass Value Units (Range) LA Area 4 CH 15 cm2 (<21) RA AREA 4CH 11 cm2 LA ESV BP (MOD) inde24.2 ml/m2 LV ESV SP 4CH (MOD) 44 ml LV ESV SP 2CH (MOD) 37 ml LV EDV BP 122 ml LV ESV BP 40 ml LV EDV BP index 68.5 ml/m2 LV ESV BP index 22.5 ml/m2 BP EF (MOD) 67 % LV mass (2D) 76 g LV mass (2D) index 42.7 g/m2 Diastolic/Systolic Function Value Units (Range) MV E-wave Vmax 1.1 m/sec MV deceleration [id number] msec MV A-wave Vmax 0.7 m/sec MV E:A ratio 1.6 ratio LV septal e' Vmax 0.1 m/sec LV lateral e' Vmax 0.2 m/sec LV average e' Vmax 0.2 m/sec LV E:e' septal ratio7.9 ratio LV E:e' lateral rati6.3 ratio LV average E:e' rati6.9 ratio Tricuspid Valve Value Units (Range) TR Vmax 2.2 m/sec TR peak gradient 20 mmHg RAP 3 mmHg RVSP 23 mmHg Wall Motion: Segment Name Rest Base-Anteroseptal Normal Base-Anterior Normal Base-Anterolateral Normal Base-Posterolateral Normal Base-Inferior Normal Base-Inferoseptal Normal Mid-Anteroseptal Normal Mid-Anterior Normal Mid-Anterolateral Normal Mid-Posterolateral Normal Mid-Inferior Normal Mid-Inferoseptal Normal [place]-Septal Normal [place]-Anterior Normal [place]-Lateral Normal [place]-Inferior Normal [place]-Tip Normal This report has been electronically sign ed by: _ Barry Lopez M.D. 12/17/2017 12:14: 27 Images reviewed and interpretation belinda bahena [facility] Cardiac Ultrasound Laboratory William Collado MD ECHO ORDERABLES documented in this encounter Visit Diagnoses Diagnosis Abdominal pain, unspecified abdominal lo cation documented in this encounter Care Teams Medical Billing Supervisor Relationship Specialty Start Date End Date Edilia Gabriel APRN PCP - General Family Medicine 07/12/17 09/04/18 documented as of this encounter
--- OUTSIDE RECORDS SUMMARY | 2021-10-20 07:59 | XMS_ITS | Encounter Summary ---
:1985 [place] [address] Care Team Providers Name Role Phone Unknown Primary Care Provider Unavailable Encounter Details Date Type Department Care Team Description 07/04/2017 Hospital Encounter Radiology Library at Gavin Viveros MD [facility] [place] [address] DEPT. [phone] [place], [place] [address] (Wo rk) Social History Tobacco [...] Sig Dispensed Refills Start Date End Date PLUS, CALCIUM 0 01/11/2015 CARB, 27 mg iron- 1 mg Tablet ibuprofen (ADVIL;MOTRIN) Take 1 tablet by 30 tablet 12 12/0404/09/2019 600 mg Tablet mouth every 6 hours as needed for Pain. sertraline (ZOLOFT) 25 mg Take 1 tablet by 30 tablet 3 09/0608/27/2017 Tablet mouth daily. methadone (DOLOPHINE) 5 Take [...] Name Priority Date/Time Associated Diagnosis Comme nts FILM LIBRARY Routine 07/04/2017 12:00 AM Results for this STORAGE ONLY CT EDT procedure ar e in ABDOMEN AND PELVIS the resul ts section. documented in this encounter Results Film Library- Storage Only CT Abdomen & Pelvis (07/04/2017 12:00 AM EDT) Specimen (Source) Anatomical Location Collection Method / Collectio n Time Received Time / Laterality Volume Narrative RAD - 07/04/2017 3:31 PM EDT This exam is for storage only and is aut o-finalizing. Gavin Viveros MD [employer] FILM LIBRARY ORDERABLES Performing Organization Address City/State/ZIP Code Phon e Number [place], [place] documented in this encounter Visit Diagnoses Not on filedocumented in this encounter Care Teams Fur Ironer Relationship Specialty Start Date End Date Unknown PCP - General 04/03/16 07/11/17 None documented as of this encounter
--- OUTSIDE RECORDS SUMMARY | 2021-10-20 07:59 | XMS_ITS | Encounter Summary ---
:1985 [place] [address] Care Team Providers Name Role Phone Mere Gtz Sherly QUIROS Primary Care Provider Reason for Visit Reason Comments Routine Visit Encounter Details Date Type Department Care Team Description 10/19/2014 Routine Obstetrics and PscSherly maciel, [place]: 33w2d Gynecology at [facility], [place], operated by [facility] Celia gutierrez [facility] [address] OBSTETRICS & [phone] GYNECOLOGY [place], [place] [address] (Wo rk) Social History [...] Sign Reading Time Taken Comments Blood Pressure 106/74 10/19/2014 10:17 AM EDT Pulse - - Temperature - - Respiratory Rate - - Oxygen Saturation - - Inhaled Oxygen Concentration - - Weight 78.4 kg (172 lb 14.4 oz) 10/19/2014 10:17 AM EDT Height - - Body Mass Index 25.52 10/15/2014 6:40 PM EDT documented in this encounter Progress Notes Aislinn Trevino RN - 10/19/2014 11:03 AM EDT On monitor for arrhythmia, baseline 125 with audible and sometimes recording accelerations to 140 with movement that Shirlene is aware of. Dr. Leon in and Shirlene will stay on EFM until u/s is ready for her - BPP to be done. FHR more in NSR when fetus is active. To U/s for BPP. Sherly Leon MD - 10/19/2014 10:49 AM EDT Frequent arrhythmia, likely premature atrial contractions as seen when in- patient over the weekend; unable to interpret NST. Biophysical today reassuring; 09/12. Normal OR interval. Unfortunately unable to schedule echocardiogram today; will need to return tomorrow. Reports good movement every day. No contractions/ leaking fluid / bleeding / pain. No headache, vision changes, RUQ pain. Very anxious regarding arrhythmia. documented in this encounter Plan of Treatment Not on filedocumented as of this encounter Results Echocardiogram (10/20/2014 5:10 PM EDT) Anatomical Region Laterality Modality Other Specimen (Source) Anatomical Location Collection Method / Collectio n Time Received Time / Laterality Volume 10/21/2014 Narrative 10/21/2014 11:47 AM EDT Procedure: ?Pediatric Echocardiogram Patient: ?CHARLY Dumas ? (Age): 1985(29y) ? Med Rec#: ? [id number] ?Sex: ?F ? Site Loc: ? [facility] [place] ?Ht / Wt: ??(cm)/ (kg) ? Pt. Loc: ?Echo Lab ?BSA: ? Study Date: ?? 10/20/2014 ?Pt. Type: Study Quality: ?Tape: ? Referring: PSCHIRREREREBECCA Reading: Reuben Conte ([id number]) Water Quality Specialist: Katerina Hill Water Quality Specialist: Ruben Kam Diagnosis: ICD-9 Codes / Indication *763.83 Arrythmia Rhythm: ? Sinus BP: ? / SUMMARY: 1. A echocardiogram was performed at 33 weeks 3 days gestation (ASHLIE: 12/05/2014) due to arrythmia . ??Good quality images were obtained. 2. There is a single fetus in breech pos ition. ??No cardiac structural abnormalities were identified. ??Chamber sizes, ventricular function, arterial and venous connections were all normal. ??The Doppler exam was normal. ??No arrhythmias were noted duri ng the exam with the exception of a transient period of bradycardia at a h eart rate of 91. ??There was no evidence of hydrops. ??This was a normal echocardiogram. 3. The limitations of echocardiogr aphy include the inability to diagnose patent ductus arteriosus, some atrial and ventricular septal defects, minor valve abnormalities and c oarctation. ??No specific or cardiac follow-up is required on this basis of this study. FINDINGS: ? Procedure Details ?763.83 Arrythmia Study Type ?Arrhythmia Venous Connections ?At least one pulmonary vein from e ach side enters the left atrium. No pulmonary venous anomalies are detect ed. ?? Av Valves ?The tricuspid valve is functionall y and structurally normal. ?The tricuspid valve diameter measu res 12.4 mm in the lateral plane obtained from the A4C view.(Z-Score: ??0 .62) ?The mitral valve is functionally a nd structurally normal. ?The mitral valve diameter measures 10.3 mm in the lateral plane obtained from the A4C view.(Z-Score: ?? -0.02) Ventricles ?The right ventricle is of normal s ize. ?The right ventricular systolic fun ction is normal. ?The left ventricular chamber size, wall thickness and systolic function are normal. ?The global left ventricular systol ic function is normal. Ventricular Septum ?The interventricular septum is int act with no evidence of a ventricular septal defect. Semilunar Valves ?The pulmonary valve annulus diamet er measures 7.7 mm.(Z-Score: 0.90) ?The pulmonary valve leaflets are o f normal thickness. ?The aortic valve annulus diameter measures 5.2 mm.(Z-Score: ?? -0.52) ?The aortic valve leaflets are of n ormal thickness. Thoracic Arteries ?The main pulmonary artery is rené l, without dilatation, stenosis, or aneurysm.The great arteries are rené lly related. ?The right pulmonary artery has nor mal size, origin, and configuration. ?The left pulmonary artery has norm al size, origin, and configuration. ?The ascending aorta is normal, wit hout dilatation or narrowing. ?The ascending aorta diameter measu res 5.5 mm from the long axis view. ?The aortic arch is normal, without dilatation, aneurysm or coarctation.The aortic isthmus is normal sized. ?The aortic isthmus diameter measur es 4.2 mm distal to the left subclavian artery.(Z-Score: ??0.18) ?The descending aorta is normal, wi thout dilatation, narrowing or aneurysm. Effusion ?There is no pericardial effusion. ?No evidence of hydrops. Mitral Valve ?Value ?Units (Range) ? Z Score ? MV diam (lateral) 4C10.3 ? mm ? Tricuspid Valve ?Value ?Units (Range) ? Z Score ? TV diam (lateral) 4C12.4 ? mm ? Pulmonary Valve / RV ?Value ?Units (Range) ? Z Score ? PV nathalie diam 2D ?7.7 ?mm ? Aorta ?Value ?Units (Range) ? Z Score ? AV nathalie diam 2D ?5.2 ?mm ? Asc Ao diam (LAX) ?? 5.5 ?mm ? Isthmus diam (SSN) ??4.2 ?mm ? All Z scores are estimated This report has been electronically sign ed by: _ Reuben ??Kevyn Conte MD ? 10/21/2014 11 :46:26 Images reviewed and interpretation verif ied [facility] Cardiac Ultrasound Laboratory Procedure Note Reuben Conte MD - 10/21/2014Formatti ng of this note might be different from the original. Procedure: Pediatric Echocardiogram Patient: CHARLY MAYBERRY(Age): [birth year](29y) Med Rec#: [id number] Sex: F Site Loc: [facility] [place] Ht / Wt: (cm)/ (kg) Pt. Loc: Echo Lab BSA: Study Date: 10/20/2014 Pt. Type: Study Quality: Tape: Referring: VEDA Reading: Reuben Conte ([id number]) Water Quality Specialist: Katerina Hill Water Quality Specialist: Ruben Kam Diagnosis: ICD-9 Codes / Indication *763.83 Arrythmia Rhythm: Sinus BP: / SUMMARY: 1. A echocardiogram was performed at 33 weeks 3 days gestation (ASHLIE: 12/05/2014) due to arrythmia . Good quality images were obtained. 2. There is a single fetus in breech pos ition. No cardiac structural abnormalities were identified. Chamber s izes, ventricular function, arterial and venous connections were all normal. The Doppler exam was normal. No arrhythmias were noted during the exam with the exception of a transient period of bradycardia at a h eart rate of 91. There was no evidence of hydrops. This was a no rmal echocardiogram. 3. The limitations of echocardiogr aphy include the inability to diagnose patent ductus arteriosus, some atrial and ventricular septal defects, minor valve abnormalities and c oarctation. No specific or cardiac follow-up is required on this basis of this study. FINDINGS: Procedure Details 763.83 Arrythmia Study Type Arrhythmia Venous Connections At least one pulmonary vein from each s aleksandr enters the left atrium. No pulmonary venous anomalies are detect ed. Av Valves The tricuspid valve is functionally and structurally normal. The tricuspid valve diameter measures 1 2.4 mm in the lateral plane obtained from the A4C view.(Z-Score: 0.6 2) The mitral valve is functionally and st ructurally normal. The mitral valve diameter measures 10.3 mm in the lateral plane obtained from the A4C view.(Z-Score: -0. 02) Ventricles The right ventricle is of normal size. The right ventricular systolic function is normal. The left ventricular chamber size, wall thickness and systolic function are normal. The global left ventricular systolic fu nction is normal. Ventricular Septum The interventricular septum is intact w ith no evidence of a ventricular septal defect. Semilunar Valves The pulmonary valve annulus diameter me asures 7.7 mm.(Z-Score: 0.90) The pulmonary valve leaflets are of nor mal thickness. The aortic valve annulus diameter measu res 5.2 mm.(Z-Score: -0.52) The aortic valve leaflets are of normal thickness. Thoracic Arteries The main pulmonary artery is normal, wi thout dilatation, stenosis, or aneurysm.The great arteries are rené lly related. The right pulmonary artery has normal s ize, origin, and configuration. The left pulmonary artery has normal si ze, origin, and configuration. The ascending aorta is normal, without dilatation or narrowing. The ascending aorta diameter measures 5 .5 mm from the long axis view. The aortic arch is normal, without dila tation, aneurysm or coarctation.The aortic isthmus is normal sized. The aortic isthmus diameter measures 4. 2 mm distal to the left subclavian artery.(Z-Score: 0.18) The descending aorta is normal, without dilatation, narrowing or aneurysm. Effusion There is no pericardial effusion. No evidence of hydrops. Mitral Valve Value Units (Range) Z Score MV diam (lateral) 4C10.3 mm Tricuspid Valve Value Units (Range) Z Score TV diam (lateral) 4C12.4 mm Pulmonary Valve / RV Value Units (Range) Z Score PV nathaile diam 2D 7.7 mm Aorta Value Units (Range) Z Score AV nathalie diam 2D 5.2 mm Asc Ao diam (LAX) 5.5 mm Isthmus diam (SSN) 4.2 mm All Z scores are estimated This report has been electronically sign ed by: _ Reuben Conte MD 10/21/2014 11:46:26 Images reviewed and interpretation belinda bahena [facility] Cardiac Ultrasound Laboratory E Silvestre Leon MD ECHO ORDERABLES US OB Biophysical Profile Wo Nst (10/19/2014 12:01 PM EDT) Anatomical Region Laterality Modality Breast Ultrasound Specimen (Source) Anatomical Collection Method Collection Time Re ceived Time Location / / Volume Laterality 10/19/2014 12:01 PM EDT Narrative 10/19/2014 12:04 PM EDT OBSTETRICS REPORT ?(Signed Final 10/19/2014 12:04 ? pm) Patient Info ID #: ? [id number] ?: ??[birth year] (29 yrs) Name: ? SHIRLENE PARKS ?Visit Date: 10/19/2014 11:54 am Performed By Performed By: ?Zeenat Vargas RDMS Attending: ? Marcie Baron MD Referred By: ? E SILVESTRE LEON MD Service(s) Provided ??UBPP - Biophysical Profile - [id number] ??KARO - OR Interval Study - [id number] Indications ??Biophysical profile (BPP); arrh ythmia; ??Evaluate OR interval per verbal reque st from ??Pschirrer. Evaluation Num Of Fetuses: ? 1 Heart ? 139 Rate(bpm): Cardiac Activity: ?? Observed, ??arrhyt hmia Presentation: ? Breech Placenta: ? Anterior P. Cord Insertion: ??Within Normal Limi ts Amniotic Fluid CHRISTIE FV: ?Appropriate for gestati onal age CHRISTIE Sum: ? 14.87 ?? cm ? Larg Pckt: ?3.95 ??cm RUQ: ?? 3.89 ?cm ?LUQ: ?? 3.95 ?? cm RLQ: ?? 3.72 ?cm ?LLQ: ?? 3.31 ?? cm Biophysical Evaluation Amniotic F.V: ?? Within normal limits ? F. Tone: ??Observed F. Movement: ?Observed ? Score: ??09/12 F. Breathing: ?? Observed -------- Biometry -------- Gestational Age Clinical ASHLIE: ??33w 2d ?ASHLIE: ?? 12/05/14 Best: ?33w 2d ?? Det. By: ??Clinical ASHLIE ? ASHLIE: ?? 12/05/14 ------- Anatomy ------- Heart: ?Visualized RVOT: ? Visualized LVOT: ? Visualized Stomach: ?Visualized Cord Vessels: ? 3 Vessel Cord - WNL Kidneys: ?Visualized Bladder: ?Visualized Doppler - Vessels Comment: ? OR interval demonstra nickolas (129 ms) and is not ?prolonged. Doppler - Uterine Artery Right S/D Ratio: ? RI: ?PI: ?%Tile Left S/D Ratio: ?RI: ?PI: ?%Tile Cervix Uterus Adnexa Left Ovary Not visualized Right Ovary Not visualized Impression 3rd Trimester Summary (BPP and OR Inter vals ONLY) Single intrauterine with a ge stational age of 33w 2d based on clinical ASHLIE. Amniotic fluid volume is appropriate fo r gestational age, CHRISTIE = 14.87 cm, MVP = 3.95 cm. Normal Biophysical Profile, 09/12. OR interval demonstrated (129 ms) and i s not prolonged. I ??viewed the images and agree with reza nick above interpretation. ?Pippa Anguiano Electronically Signed Final Report ?? 12:04 pm Procedure Note Marcie Baron MD - 10/19/2014Formattin g of this note might be different from the original. OBSTETRICS REPORT (Signed Final 015 12:04 pm) Patient Info ID #: [id number] : [birth year] (29 y rs) Name: SHIRLENE PARKS Visit Date: 10/19 11:54 am Performed By Performed By: Zeenat Vargas RDMS Attending: Marcie Baron MD Referred By: Sherly LEON MD Service(s) Provided UBPP - Biophysical Profile - [id number] UOBLIM - OR Interval Study - [id number] Indications Biophysical profile (BPP); arrhyt hmia; Evaluate OR interval per verbal request from Dr. Pschirrer. Evaluation Num Of Fetuses: 1 Heart 139 Rate(bpm): Cardiac Activity: Observed, arrhythmia Presentation: Breech Placenta: Anterior P. Cord Insertion: Within Normal Limits Amniotic Fluid CHRISTIE FV: Appropriate for gestational age CHRISTIE Sum: 14.87 cm Larg Pckt: 3.95 cm RUQ: 3.89 cm LUQ: 3.95 cm RLQ: 3.72 cm LLQ: 3.31 cm Biophysical Evaluation Amniotic F.V: Within normal limits F. T one: Observed F. Movement: Observed Score: 09/12 F. Breathing: Observed -------- Biometry -------- Gestational Age Clinical ASHLIE: 33w 2d ASHLIE: 12/05/14 Best: 33w 2d Det. By: Clinical ASHLIE ASHLIE: 12/05/14 ------- Anatomy ------- Heart: Visualized RVOT: Visualized LVOT: Visualized Stomach: Visualized Cord Vessels: 3 Vessel Cord - WNL Kidneys: Visualized Bladder: Visualized Doppler - Vessels Comment: OR interval demonstrated (129 ms) and is not prolonged. Doppler - Uterine Artery Right S/D Ratio: RI: PI: %Tile Left S/D Ratio: RI: PI: %Tile Cervix Uterus Adnexa Left Ovary Not visualized Right Ovary Not visualized Impression 3rd Trimester Summary (BPP and OR Inter vals ONLY) Single intrauterine with a ge stational age of 33w 2d based on clinical ASHLIE. Amniotic fluid volume is appropriate fo r gestational age, CHRISTIE = 14.87 cm, MVP = 3.95 cm. Normal Biophysical Profile, 09/12. OR interval demonstrated (129 ms) and i s not prolonged. I viewed the images and agree with the above interpretation. Marcie Baron MD Electronically Signed Final Report 10/19 12:04 pm E Silvestre Leon MD IMG US OB ORDERABLES documented in this encounter Visit Diagnoses Diagnosis cardiac arrhythmia cardiac arrhythmia cardiac arrhythmia documented in this encounter Care Teams Trial Lawyer Relationship Specialty Start Date End Date Mere Gtz APRN PCP - General 04/10/13 04/02/16 documented as of this encounter
--- OUTSIDE RECORDS SUMMARY | 2021-10-20 07:59 | XMS_ITS | Encounter Summary ---
:1985 Author Organization [facility] [place] [address] Care Team Providers Name Role Phone Edilia Gabriel ISHAAN Primary Care Provider Encounter Details Date Type Department Care Team Description 12/17/2017 Interpretation Only [facility] Airam Pendleton, [address] [facility] [place] [address] [address] [facility] [phone] [place] [address] Social History Tobacco Use Types Packs/Day Years Used Date Never Assessed Sex Assigned at Date Recorded Female 04/13/2020 8:26 AM EST documented as of this encounter Plan of Treatment Not on filedocumented as of this encounter Procedures Procedure Name Priority Date/Time Associated Diagnosis Comme nts CT CHEST W CONTRAST Routine 12/17/2017 1:31 AM Re sults for this EST procedure are i n the results section. documented in this encounter Results CT Chest w Contrast (12/17/2017 1:31 AM EST) Anatomical Region Laterality Modality Chest Computed Tomography Specimen (Source) Anatomical Collection Method Collection Time Re ceived Time Location / / Volume Laterality 12/17/2017 1:31 AM EST Impressions 12/17/2017 3:04 AM EST 1. ??Bilateral upper lobe groundglass opacities. Concerning for multifocal pneumonia or possibly inhalational lung disease/hypersensitivity pneumonitis in the correct clinical setting. 2. ??Serpiginous sclerotic lesion within the right femoral head. This may represent a bone infarct/ AVN. 3. ??Asymmetric hazy fat stranding in th e left lower quadrant is noted. This is occurring in the region of the patient's prior colitis and could represent early/developing colitis. 4. ??There is mild unchanged hepatomegal y. 5. ??There is mild periportal edema, non specific but could be secondary to hepatitis, congestive heart failure, cristobal lonephritis, trauma or biliary tract infection. Please correlate clinically. I Dr. Galvan discussed these results wit h Dr. Pendleton on 12/17/2017 2:53 AM and verified that (s)he understood these res ults. Narrative 12/17/2017 3:04 AM EST EXAMINATION: ??CT ABDOMEN AND PELVIS W CONTRAST, CT CHEST W CONTRAST CLINICAL HISTORY: ??LLQ pain, vomiting;A bd pain without trauma/injury. Shortness of breath/sepsis/heroine abuse. TECHNIQUE: Helical CT of the abdomen and pelvis was performed following the intravenous administration of contrast. 100 cc of Omnipaque 350 was given. ??Oral contrast was not administered. COMPARISON: CT abdomen and pelvis 018 FINDINGS: Chest: Lungs and large airways: The large airwa ys are patent. There are patchy bilateral upper lobe predominant groundg lass opacities. There is a consolidative opacity within the lingula. Pleura: No pneumothorax. No pleural effu sions. Heart/vasculature: Normal cardiac size. Normal caliber of the thoracic aorta and central pulmonary arteries. No central p ulmonary artery filling defects. Lymph nodes: No enlarged lymph nodes. Mediastinum and jada: No lymphadenopathy . Abdomen/pelvis: Liver: The liver is enlarged measuring 2 1 cm craniocaudal is unchanged from prior. There is a geographic low-attenua tion lesion adjacent to falciform ligament, most consistent with focal fat . There is a similar area of low attenuation in the periphery of the infe rior right hepatic lobe, also likely focal fatty infiltration. There is mild periportal edema. Bile ducts: Nondilated. Gallbladder: No calcified gallstones. No rmal caliber wall. Pancreas: Normal attenuation without jenny cristina dilatation. Spleen: No focal lesions. The spleen is at the upper limits of normal for size. Adrenals: Normal. Kidneys: Symmetric nephrograms. No hydro nephrosis. Urinary Bladder: Normal. Vasculature: No aneurysm. The main robson l vein is patent. Lymph Nodes: ??There are prominent robson caval and aortocaval lymph nodes (series 2 image 42 and 47), likely reactive. Bowel: There is some mild asymmetric haz y stranding in the pericolic fat of the left lower quadrant. Nondilated, no wall thickening. There is a moderate to large amount of stool within the colon f rom cecum to the rectum. Normal terminal ileum. Normal appendix. Peritoneum and mesentery: No ascites, fr ee air, or loculated fluid collection. No mesenteric inflammation. Abdominal wall: Normal. Reproductive organs: Normal. No adnexal masses. Osseous structures: There is a serpigino us sclerotic lesion within the anterior right femoral head. The femoral head phani ntains its normal round spherical contour. Procedure Note Jasson Galvan MD - 12/17/2017Formattin g of this note might be different from the original. EXAMINATION: CT ABDOMEN AND PELVIS W CON TRAST, CT CHEST W CONTRAST CLINICAL HISTORY: LLQ pain, vomiting;Abd pain without trauma/injury. Shortness of breath/sepsis/heroine abuse. TECHNIQUE: Helical CT of the abdomen and pelvis was performed following the intravenous administration of contrast. 100 cc of Omnipaque 350 was given. Oral contrast was not administered. COMPARISON: CT abdomen and pelvis 018 FINDINGS: Chest: Lungs and large airways: The large airwa ys are patent. There are patchy bilateral upper lobe predominant groundg lass opacities. There is a consolidative opacity within the lingula. Pleura: No pneumothorax. No pleural effu sions. Heart/vasculature: Normal cardiac size. Normal caliber of the thoracic aorta and central pulmonary arteries. No central p ulmonary artery filling defects. Lymph nodes: No enlarged lymph nodes. Mediastinum and jada: No lymphadenopathy . Abdomen/pelvis: Liver: The liver is enlarged measuring 2 1 cm craniocaudal is unchanged from prior. There is a geographic low-attenua tion lesion adjacent to falciform ligament, most consistent with focal fat . There is a similar area of low attenuation in the periphery of the infe rior right hepatic lobe, also likely focal fatty infiltration. There is mild periportal edema. Bile ducts: Nondilated. Gallbladder: No calcified gallstones. No rmal caliber wall. Pancreas: Normal attenuation without jenny cristina dilatation. Spleen: No focal lesions. The spleen is at the upper limits of normal for size. Adrenals: Normal. Kidneys: Symmetric nephrograms. No hydro nephrosis. Urinary Bladder: Normal. Vasculature: No aneurysm. The main robson l vein is patent. Lymph Nodes: There are prominent [place] and aortocaval lymph nodes (series 2 image 42 and 47), likely reactive. Bowel: There is some mild asymmetric haz y stranding in the pericolic fat of the left lower quadrant. Nondilated, no wall thickening. There is a moderate to large amount of stool within the colon f rom cecum to the rectum. Normal terminal ileum. Normal appendix. Peritoneum and mesentery: No ascites, fr ee air, or loculated fluid collection. No mesenteric inflammation. Abdominal wall: Normal. Reproductive organs: Normal. No adnexal masses. Osseous structures: There is a serpigino us sclerotic lesion within the anterior right femoral head. The femoral head phani ntains its normal round spherical contour. IMPRESSION 1. Bilateral upper lobe groundglass opac ities. Concerning for multifocal pneumonia or possibly inhalational lung disease/hypersensitivity pneumonitis in the correct clinical setting. 2. Serpiginous sclerotic lesion within t he right femoral head. This may represent a bone infarct/ AVN. 3. Asymmetric hazy fat stranding in the left lower quadrant is noted. This is occurring in the region of the patient's prior colitis and could represent early/developing colitis. 4. There is mild unchanged hepatomegaly. 5. There is mild periportal edema, nonsp ecific but could be secondary to hepatitis, congestive heart failure, cristobal lonephritis, trauma or biliary tract infection. Please correlate clinically. I Dr. Galvan discussed these results wit h Dr. Pendleton on 12/17/2017 2:53 AM and verified that (s)he understood these res ults. Airam Pendleton APRN IMG CT ORDERABLES documented in this encounter Visit Diagnoses Not on filedocumented in this encounter Care Teams Film Or Tape Librarian Relationship Specialty Start Date End Date Edilia Gabriel APRN PCP - General Family Medicine 07/12/17 09/04/18 documented as of this encounter
--- OUTSIDE RECORDS SUMMARY | 2021-10-20 07:59 | XMS_ITS | Encounter Summary ---
:1985 Author Organization [facility] [place] [address] Care Team Providers Name Role Phone Mere Gtz ISHAAN Primary Care Provider Reason for Visit Reason Onset Date Comments Follow-up 12/09/2014 Encounter Details Date Type Department Care Team Description 12/09/2014 Telephone Obstetrics and Gynecology at Brenda [place] [address] Social History Tobacco Use Types Packs/Day Years [...] Telephone Encounter - Aislinn Trevino RN - 12/09/2014 2:41 PM EST Caller: Aislinn Trevino RN Learning Needs Assessment Reviewed: yes Subjective Patient presents with: Follow-up I am feeling much better today. Do I need to come tomorrow? Objective/Assessment: Symptom onset: spoke with Dr. Funez on 12/07/14 after visiting nurse came to the home and assessed mildly elevated blood pressure with headache and swelling. Appt is scheduled with [facility] provider for 12/10/14. Location: Duration: Characteristics: headache has resolved, normal vision Aggravating factors: Relieving factors: Timing: Severity: Pertinent Past Medical History: 12/02/14 Plan Intervention/Plan/ Follow Up: Advised that it is is ok to cancel provider appointment for tomorrow but to keep [facility] appointment foron going post assessment. She will see the visiting nurse tomorrow. documented in this encounter Plan of Treatment Not on filedocumented as of this encounter Visit Diagnoses Not on filedocumented in this encounter Care Teams Laboratory Phlebotomist Relationship Specialty Start Date End Date Mere Gtz APRN PCP - General 04/10/13 04/02/16 documented as of this encounter
--- OUTSIDE RECORDS SUMMARY | 2021-10-20 07:59 | XMS_ITS | Encounter Summary ---
:1985 Author Organization [facility] [place] [address] Care Team Providers Name Role Phone Ulisses Mere Dubois APRN Primary Care Provider Reason for Visit Reason Comments Other Encounter Details Date Type Department Care Team Description 09/29/2014 Telephone Obstetrics and [place]necology [place] [address] Social History Tobacco Use Types Packs/Day Years [...] Telephone Encounter - Victorina Merchant RN - 09/29/2014 3:45 PM EDT Caller:Sweta Learning Needs Assessment Reviewed: Yes Subjective Patient presents with: Headache, n/v. No OB complaints. Denies abdominal pain/scotomata. Objective/Assessment Symptom onset: Today Location:headache, N/V Duration: Characteristics: Aggravating factors: Relieving factors: Timing: Severity: Pertinent Past Medical History: 30w3d Plan Intervention/Plan/ Follow Up: Discussed nonpharmacologic and pharmacologic management of headache, and encouraged PO hydration with electrolytes. Warning signs reviewed. Will call if symptoms persist or worsen. Telephone Encounter - Victorina Merchant RN - 09/29/2014 3:45 PM EDT ----- Message from Jewell Orta sent at 09/29/2014 2:15 PM EDT ----- Contact: pt Faraz, This is the pt you spoke w/ that had Tdap yesterday w/ Dr. Baron c/o vomiting, fever,shakiness &migraine. Thanks Jewell documented in this encounter Plan of Treatment Not on filedocumented as of this encounter Visit Diagnoses Not on filedocumented in this encounter Care Teams [employer] Relationship Specialty Start Date End Date Mere Gtz APRN PCP - General 04/10/13 04/02/16 documented as of this encounter
--- OUTSIDE RECORDS SUMMARY | 2021-10-20 07:59 | XMS_ITS | Encounter Summary ---
:1985 [place] [address] Care Team Providers Name Role Phone Mere Gtz Sherly QUIROS Primary Care Provider Reason for Visit Reason Comments Follow-up Encounter Details Date Type Department Care Team Description 11/11/2014 Routine Obstetrics and Sherly [place], [place]: 36w4d Gynecology at [facility] Celia gutierrez [facility] [place] [address] OBSTETRICS & [phone] GYNECOLOGY [place] [id number] (Wo rk) Social History Tobacco Use Types [...] Sign Reading Time Taken Comments Blood Pressure 115/66 11/11/2014 2:57 PM EDT Pulse - - Temperature - - Respiratory Rate - - Oxygen Saturation - - Inhaled Oxygen Concentration - - Weight 81.6 kg (179 lb 14.4 oz) 11/11/2014 2:57 PM EDT Height - - Body Mass Index 26.57 11/02/2014 2:00 PM EDT documented in this encounter Progress Notes Sherly [place] MD - 11/11/2014 4:16 PM EDT The case was discussed at the time of the visit or immediately after the visit. The assessment and plan were formulated in discussion with me and I agree with them as documented. I have reviewed the history, physical exam, assessment and plan with the resident. Major issues discussed today: Reactive and reassuring NST without evidence of arrhythmia. Plan: Weekly NST. Routine care. Repeat GBS at next visit (expires 11/20). Asya Patel MD - 11/11/2014 3:48 PM EDT Feeling more nervous as she's getting closer to term. Complains of [place] ctx. Denies LOF, VB. Endorses active FM. Reports seeing yellow spots, worse after being in the shower. No CARLIN, RUQ/epigastric tenderness or edema. O: BP 115/66, FH 35.5 cm FHR by Doppler showed overall rate in the 130s with brief periods of tachycardia to the 216 and brief periods in the 80s. NST baseline 120, moderate variability, at least two accelerations 15 x 15, no decelerations [place] No ctx A/P: Given FHR pattern on Doppler today, sent patient for NST, which was reactive. Blood pressure normal today. GBS negative (done 10/16/14). Labor precautions given. Karma Cash LPN - 11/11/2014 3:02 PM EDT Having visual changes, with CARLIN, no swelling Seen by home nurse yesterday documented in this encounter Plan of Treatment Not on filedocumented as of this encounter Visit Diagnoses Diagnosis Supervision of high risk in th ird trimester Unspecified high-risk documented in this encounter Care Teams Final Tester Relationship Specialty Start Date End Date Mere Gtz APRN PCP - General 04/10/13 04/02/16 documented as of this encounter
--- OUTSIDE RECORDS SUMMARY | 2021-10-20 07:59 | XMS_ITS | Encounter Summary ---
:1985 Author Organization [place] [address] Care Team Providers Name Role Phone Mere Gtz APRN Primary Care Provider Encounter Details Date Type Department Care Team Description 11/28/2014 Telephone Obstetrics and Gynecology at Abdirizak Haro MD [address] [id number] [phone] Social History Tobacco Use Types Packs/Day Years Used Date Former Smoker Cigarettes 0.25 Smokeless Tobacco: Never Used Comments: Has maybe 1 a day or 2 Alcohol Use Standard Drinks/Week Comments No 0 (1 standard drink = 0.6 oz pure alcoho l) Not during Sex Assigned at Date Recorded Female 04/13/2020 8:26 AM EST documented as of this encounter Miscellaneous Notes Telephone Encounter - Abdirizak Moses MD - 11/28/2014 11:54 AM EDT Telephone Note Shirlene Kovacs is a 29 y.o. at 39w0d gestation who calls to report diarrhea and q 10 min abdominal pains since this morning. Denies fevers / chills, nausea / vomiting and has been tolerating food and drink. No sick contacts. She is having enough frequency of BMs that she is unable to leave the bathroom and feels that her abdominal pains may be bowel cramping. The pain has not worsened over time or become more frequent. She questions if there is decreased movement. Denies loss of fluid, vaginal bleeding, CARLIN, vision changes, RUQ /epigastric pain, face/ hand edema. Patient to perform kick counts and continue to monitor sx. Continue oral hydration, small frequent BRAT diet based meals. She will call if kick counts abnormal or if sx worsen or fail to improve over time. ABDIRIZAK MOSES MD, PGY4 11/28/2014 documented in this encounter Plan of Treatment Not on filedocumented as of this encounter Visit Diagnoses Not on filedocumented in this encounter Care Teams Industrial Safety And Health Specialist Relationship Specialty Start Date End Date Mere Gtz APRN PCP - General 04/10/13 04/02/16 documented as of this encounter
--- OUTSIDE RECORDS SUMMARY | 2021-10-20 07:59 | XMS_ITS | Encounter Summary ---
:1985 Author Organization [facility] [place] [address] Care Team Providers Name Role Phone Edilia Gabriel APRN Primary Care Provider Reason for Visit Reason Comments GI Problem Consultation (Urgent) - Closed Specialty Diagnoses / Procedures Referred By Contact Refer red To Contact Gastroenterology Diagnoses CROHN'S DISEASE Edilia Gabriel APRN [facility] Gastro 4l [facility] CORRECTIONAL [address] [phone] Fax: Referral ID Status Reason Start Date Expiration Date Visits V isits Requested Authorized [id number] Closed Consult, 07/12/2017 07/12/2018 1 1 [facility] Encounter Details Date Type Department Care Team Description 08/27/2017 Office Visit Gastroenterology at [facility] Deepa Husain Diarrhea, unspecified type; [facility] Celia Dumas MD Constipation, [place] [id number] [facility] [phone] C[place] [address] Social History Tobacco Use Types Packs/Day Years [...] Sign Reading Time Taken Comments Blood Pressure 118/70 08/27/2017 9:36 AM EDT Pulse 76 08/27/2017 9:36 AM EDT Temperature - - Respiratory Rate - - Oxygen Saturation - - Inhaled Oxygen Concentration - - Weight 68.9 kg (152 lb) 08/27/2017 9:36 AM EDT Height 175.3 cm (5' 9) 08/27/2017 9:36 AM EDT Body Mass Index 22.45 08/27/2017 9:36 AM EDT documented in this encounter Patient Instructions Patient InstructionsDeepa Husain - 08/27/2017 9:30 AM EDT Please try adding soluble fiber (6 to 12 grams/day) to your diet and consistently take your miralax and stool softener twice a day. Additionally, please stop taking ibuprofen and consistently take your prevacid. documented in this encounter Progress Notes Deepa Husain - 08/27/2017 9:30 AM EDT [facility] Division of Gastroenterology and Hepatology Outpatient Consultation Reason for Visit: evaluation of abdominal pain and bloody stool Referred by Edilia Gabriel History of Present Illness: Shirlene Kovacs is a 32 y.o. female with past medical history significant for IVDU, HCV, hx of hodgkin's lymphoma, hypothyroidism who is referred to GI for eval for IBD. [facility] with [facility]Q abdominal pain, diarrhea and nausea/vom iting, at which point CT A/P was notable for diffuse mucosal thickening of the small bowel and colon. C diff was neg, fecal lactoferrin was +. Of note, utox at that time was positive for cocaine and amphetamines. She was treated with augmentin for UTI and ?colitis, as well as started on a PPI. She wasreferred here for evaluation for her ongoing GI symptoms. Since April, Shirlene has been experiencing nausea/vomiting and progressively worsening dull twisting abdominal pain. She reports her pain has caused her to lose two jobs recently, and she has presented to multiple different EDs for these symptoms. Pain travels around to different locations, but todayis worse in her lower abdomen. Pain is been intermittent, severe at its worst and associated with nausea and non-bloody vomiting. She has been having constipation, but when the pain is severe, she sometimes has diarrhea. She takes miralax and a stool softener, as well as enemas every couple weeks. Denies pain relief with defecation. Recently she has been having blood mixed to into her stools. Also reports occasionally black stools. She has reports she has cut back on dairy and feels this might have been improving things; otherwise she has tried food journaling and not seen a pattern. Also reports pain with sexual intercourse since April. Last test was on Sunday and negative. She has beentaking large amounts of ibuprofen 800 mg, approx q6hrs for the abdominal pain. She was in rehab for 2 weeks in April, but had to leave for the stomach issues. She relapsed after that and then started suboxone in early July. She relapsed once within two weeks of starting suboxone, but has been clean since then. Denies thoughts of suicide, but has had thoughts of hurting other people. She has been discussing these thoughts with her therapist, who she sees weekly. She has stopped taking her risperadol. No current plans to harm anyone. Review of Systems: Constitutional: no weight loss HEENT: no URI symptoms Cardio: no chest pain Resp: no cough, no SOB, no BAUTISTA or orthopnea Hem/Lymph: no new lumps or bumps on body GI: see HPI : no dysuria, +dysparunia Integumentary: no new rashes Musculoskeletal: +new R hip pain Neuro: no new numbness, weakness in extremities Past Medical History: Diagnosis Date ??? Abnormal [...] BX performed by Ugo Reed MD at [facility] ??? PRO COLONOSCOPY, DIAGNOSTIC 08/20/2013 COLONOSCOPY, DIAGNOSTIC performed by Ugo Reed MD at [facility] ??? PRO COLONOSCOPY, REMV LESN, SNARE 08/20/2013 COLONOSCOPY, POLYPECTOMY, REMOVAL LESION BY SNARE performed by Ugo Reed MD at [facility] ??? PRO ENDOSCOPIC US EXAM, ESOPH 08/20/2013 UPPER EUS- ENDOSCOPIC ULTRASOUND performed by Ugo Reed MD at [facility] ??? PRO UPPER GI ENDOSCOPY, DIAGNOSTIC 08/20/2013 EGD, UPPER GI ENDOSCOPY performed by Ugo Reed MD at [facility] ??? SKIN BIOPSY HEAD/NECK ??? 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 Her smoking use included Cigarettes. She smoked 0.25 packs per day. She has never used smokeless tobacco. She reports that she uses illicit drugs, including Cocaine, Injected Drugs, Narcotics, and Opioids . She reports that she does not drink alcohol. Family History: family history includes Alcohol Abuse in her father. MGF with colon cancer around age 50. Aunt and cousin with IBS. 4 cousins with ?UC. Mother with possible in situ colon cancer. Current Outpatient Prescriptions Medication Sig Dispense Refill ??? buprenorphine-naloxone (SUBOXONE) 2-0.5 mg Tablet, Sublingual Place 2 tablets under the tongue daily. ??? levothyroxine (SYNTHROID) 175 mcg Tablet Take 75 mcg by mouth. ??? ibuprofen (ADVIL;MOTRIN) 600 mg Tablet Take [...] 15 mg by mouth as needed. ??? PLUS, CALCIUM CARB, 27 mg iron- 1 mg Tablet 0 No current facility-administered medications for this visit. Allergies Allergen Reactions ??? Duloxetine Hcl ??? Laxative X-Lax ??? Phenolphthalein Other reaction(s): SEIZURES ??? Varenicline Tartrate Other reaction(s): seizure Nausea/Vomiting Physical Examination: Visit Vitals ??? BP 118/70 ??? Pulse 76 ??? Ht 175.3 cm (5' 9) ??? Wt 68.9 kg (152 lb) ??? BMI 22.45 kg/m2 Body mass index is 22.45 kg/(m^2). General: Pleasant, cooperative, no acute distress HEENT: NC/AT, PERRL, anicteric sclera, MMM, no erythema or exudate Neck: soft, supple, no cervical LAD Resp: CTAB, no wheeze, rale or rhonchi CVS: Regular rate and rhythm, normal s1/s2, No murmurs, rubs or gallops GI: soft, normoactive bowel sounds, non-tender, non-distended, no hepatosplenomegaly appreciated Rectal: Deferred MSK: Warm and well perfused. No clubbing, cynanosis or edema Skin: No rash or lesion, no jaundice or palmar erythema Neuro: Alert and oriented x3, Grossly non-focal. Labs: Reviewed in EDH/Scan Docs Lab Results Component Value Date WBC 20.8 (H) 12/01/2014 HGB 13.3 12/01/2014 HCT 38.1 12/01/2014 MCV 92.5 12/01/2014 PLATELET 387 (H) 12/01/2014 Chemistry Component Value Date/Time NA 136 08/04/2013 1241 K 3.9 08/04/2013 1241 CL 100 08/04/2013 1241 CO2 26 08/04/2013 1241 BUN 8 08/04/2013 1241 CREATININE 0.76 08/04/2013 1241 Component Value Date/Time CALCIUM 9.5 08/04/2013 1241 ALKPHOS 67 08/04/2013 1241 AST 66 (H) 08/04/2013 1241 ALT 102 (H) 08/04/2013 1241 BILITOT 1.0 08/04/2013 1241 Lab Results Component Value Date ALT 102 (H) 08/04/2013 AST 66 (H) 08/04/2013 ALKPHOS 67 08/04/2013 BILITOT 1.0 08/04/2013 Past Endoscopy: 08/20/13 Colonoscopy Impression: ?- Mild non-specific erythema in ? terminal ileum that is probably ? insignificant but biopsies done. ? - One 4 mm polyp in the rectum. ? Resected and retrieved. ? - The distal rectum and anal verge ? are normal on retroflexion view. ? - The examination was otherwise ? normal. Path showed mildly active nonspecific ileitis and tubular adenoma EGD/EUS Impression: ?- Normal endoscopic exam. ? - Very mild pancreatic parenchymal ? abnormalities consisting of echogenic ? strands, foci and echogenic duct wall ? were noted in the pancreas which may ? represent a component of mild chronic ? pancreatitis or fibrosis but are ? non-specific and are of uncertain ? clinical significance in the absence ? of other EUS criteria for chronic ? pancreatitis. In and of themselves ? they are non-specific and probably ? not clinically significant and not a ? source of her symptoms ? - Probable reactive celiac LN related ? to Hep C. Additional Testing: Reviewed available labs, imaging and endoscopy results in EDH/CIS as well as Scan Docs tab. IMPRESSION: Shirlene Kovacs is a 32 y.o. with hx of hodgkin's lymphoma 2003, IVDU currently on suboxone, treatment naive HCV who was referred for evaluation of abdominal pain and bloody stools and recent CT with finding of small bowel and colonic inflammation. Previous colonoscopy here was notable formild terminal ileitis. DDx includes IBD, PUD 2/2 NSAIDs, IBS-c. We discussed that her high NSAID intake is likely making her stomach pain worse, and she agrees to stop this. She will need upper and lower endoscopy with anesthesia given her suboxone and history of substance abuse. Problems: 1. Abdominal pain, bloody stool, constipation/diarrhea 2. Treatment naive HCV RECOMMENDATIONS: Abd pain, constipation, bloody stool: - Will schedule for EGD/colonoscopy with anesthesia - CBC, CMP, CRP, HBV panel, quant gold today - Shirlene will get stool kit from lab for fecal calprotectin and drop sample back off here - Recommended increasing miralax and stool softener to BID and adding soluble fiber to diet - Counseled Shirlene to stop taking ibuprofen and to take her prevacid daily HCV: - Discussed with Shirlene that once the above issues are worked up and she has been stable and clean on suboxone for several more months, we should discuss HCV treatment options - Ordered for HCV VL and GT today - Will need fibroscan in the future - Counseled Shirlene on her risk of exposing others to HCV through blood transmission and discussed avoidance of sharing razors, toothbrushes, etc, as well as avoiding alcohol. Follow up in 2-3 weeks with me after endoscopy This case was discussed with Dr. Star Husain MD Gastroenterology PGY-4 08/27/2017 9:36 AM Pager #[phone] Sathish Graves MD - 08/27/2017 9:30 AM EDT ATTENDING ADDENDUM I interviewed and examined Shirlene Kovacs with Dr. Husain in clinic today. I have discussed the case with her and confirm the history and jack physical findings outlined in this note. The assessment and plan were formulated in discussion with me at the time of this encounter, and I agree with them as documented. Shirlene Kovacs is a 32 y.o. female with persistent chronic abdominal pain and diarrhea. Recent CT showed some possible mucosal changes in colon and small bowel. Further testing evaluation for IBD withEGD/Colonoscopy and bloodwork is recommended as outlined in the comprehensive evaluation by Dr. Husain. We also discussed further evaluation of HCV and possible therapy. We will focus on her acute complaints but continue to follow HCV as well and consider therapy pending planned workup and Fibroscan. Sathish Graves MD [employer], [employer] [facility] Gastroenterology and Hepatology [facility] documented in this encounter Plan of Treatment Not on filedocumented as of this encounter Procedures Procedure Name Priority Date/Time Associated Comments Diagnosis CRP, ACUTE Routine 08/27/2017 11:48 Diarrhea, Results for this INFLAMMATION AM EDT unspecified type procedure a re in the results section. HCV GENOTYPE Routine 08/27/2017 11:48 Diarrhea, Results for this AM EDT unspecified type procedure a re in the results section. QUANTIFERON-TB GOLD Routine 08/27/2017 11:48 Diarrhea, Resu lts for this AM EDT unspecified type procedure a re in the results section. HEMOGRAM Routine 08/27/2017 11:48 Diarrhea, Results for this AM EDT unspecified type procedure a re in the results section. DIFFERENTIAL, Routine 08/27/2017 11:48 Diarrhea, Results fo r this AUTOMATED AM EDT unspecified type procedure a re in the results section. HEPATITIS B CORE Routine 08/27/2017 11:48 Diarrhea, Results for this ANTIBODY, IGM AM EDT unspecified type procedure are in the results section. HEPATITIS B CORE Routine 08/27/2017 11:48 Diarrhea, Results for this ANTIBODY, TOTAL AM EDT unspecified type procedur e are in the results section. HEPATITIS C GENOTYPE Routine 08/27/2017 11:48 Diarrhea, AM EDT unspecified type HEPATITIS C RNA, Routine 08/27/2017 11:48 Diarrhea, Results for this QUANTITATIVE, PCR AM EDT unspecified type proced ure are in the results section. HEPATITIS B SURFACE Routine 08/27/2017 11:48 Diarrhea, Resu lts for this ANTIBODY AM EDT unspecified type procedure a re in the results section. HEPATITIS B SURFACE Routine 08/27/2017 11:48 Diarrhea, Resu lts for this ANTIGEN AM EDT unspecified type procedure a re in the results section. CBC (WITH DIFF) Routine 08/27/2017 11:48 Diarrhea, AM EDT unspecified type COMPREHENSIVE Routine 08/27/2017 11:48 Diarrhea, Results fo r this METABOLIC PANEL AM EDT unspecified type procedur e are in (NON-FASTING) the results section. documented in this encounter Results (ABNORMAL) Differential, Automated (08/27/2017 11:48 AM EDT) [facility] Method Time Signature Neutrophils % 49.0 % [facility] Neutr Abs (ANC) 4.53 1.70 - [facility] 6.10 [facility] x10(3)/[facility] Lymphocytes % 38.4 % [facility] Lymphocytes Abs 3.5 (H) 0.9 - 3.2 [facility] x10(3)/[facility] LABORATORY Monocytes % 9.9 % [facility] Monocyte Abs 0.9 0.3 - 0.9 [facility] x10(3)/[facility] LABORATORY Eosinophils % 1.4 % [facility] Eosinophils Abs 0.1 0.0 - 0.4 [facility] x10(3)/[facility] LABORATORY Basophils % 1.0 % [facility] Basophils Abs 0.1 0.0 - 0.1 [facility] x10(3)/[facility] LABORATORY Immature Gran % 0.30 % [facility] Comment: Immature granulocytes(IG's)percentage an d absolute count will include metamyelocytes, myelocytes, and promyelo cytes. Blood smears from CBCs yielding IG's will be scanned manually for concor dance. If this scan disagrees with the automated IG or if promyelocytes are not ed, a manual differential will be performed. Ayah Gran Abs 0.03 0.00 - 0.04 x10(3)/[facility] Specimen Anatomical Collection Method Collection Time Receive d Time (Source) Location / / Volume Laterality Blood specimen 08/27/2017 11:48 8 (specimen) AM EDT 12:00 PM EDT Resulting Agency Comment Spec In Lab Deepa Husain MD HEMATOLOGY ORDERABLES Performing Organization Address City/State/[place] [address] Hemogram (08/27/2017 11:48 AM EDT) P athologist Signature WBC 9.2 4.0 - 9.5 [facility] x10(3)/[facility]ORATORY RBC 4.51 4.00 - [facility] 5[facility]21 [facility] x10(6)/[facility] Hemoglobin 13.8 11.7 - [facility] 15.[facility] gm/dL [facility] Hematocrit 42.0 35.7 - [facility] 45.8 % [facility] MCV 93.1 82.6 - [facility] 94.4 fL [facility] MCH 30.6 27.1 - [facility] 32.0 pg [facility] MCHC 32.9 31.7 - [facility] 35.0 gm/dL [facility] Platelets 283 145 - 357 [facility] x10(3)/[facility] LABORATORY RDWSD 45.1 37.0 - [facility] 46.0 [facility] LABORATORY RDWCV 13.2 11.5 - [facility] 14.1 % [facility] MPV 9.6 7.6 - 12.9 [facility] LABORATORY nRBC % Auto 0.0 % [facility] nRBC Abs Auto 0.000 0.000 - [facility] 0.000 [facility] x10(3)/[facility] Specimen Anatomical Collection Method Collection Time Receive d Time (Source) Location / / Volume Laterality Blood specimen 08/27/2017 11:48 8 (specimen) AM EDT 12:00 PM EDT Resulting Agency Comment Spec In Lab Deepa Husain MD HEMATOLOGY ORDERABLES Performing Organization Address City/State/[place] [address] HCV Genotype (08/27/2017 11:48 AM EDT) Component Value Ref Test Analysis Performed At [facility] Range Method Time Signature HCV Genotype Indication for study [facility] Hepatitis C Infection [facility] 1a LABORATORY Interpretation: The genotyping analysis has identified t he presence of hepatitis C virus (HCV) genotype 1a in the submitted specimen. R esponse to some antiviral therapies is genotype dependent. Please refer to current practice guideli phan and pharmaceutical product inserts for specific recommenda tions on treating this particular HCV genotype. Method: The HCV genotyping was carried out using [employer] or?? HCVg Direct Test. Briefly, nucleic [...] acteristics determined by the [facility] [employer] [facility] [employer] ([facility]) Laboratory at [facility]. It has not been cleared or approved by the FDA. The laboratory is regulated under CLIA as qualified to perform high-complexity testing. This lauro t is used for clinical purposes. It should not be regarded as investigational or fo r research. Comment: [VERIFIED DATE]09.14.17 Verified By:Sheba Kaye (Electronic Signature) Specimen Anatomical Collection Method Collection Time Receive d Time (Source) Location / / Volume Laterality Blood specimen 08/27/2017 11:48 8 3:12 (specimen) AM EDT PM EDT Resulting Agency Comment Spec In Lab Deepa Husain MD HEMATOLOGY ORDERABLES Performing Organization Address City/State/[place] [address] (ABNORMAL) Comprehensive metabolic panel (non-fasting) (08/27/2017 11:48 AM EDT) P athologist Signature Glucose Lvl 92 65 - 199 [facility] mg/dL [facility] Comment: Diabetes: >=200 mg/dL plus symp toms BUN 14 8 - 18 mg/dL [facility] Creatinine 0.71 0.70 - 1.20 mg/dL [facility] Sodium 139 135 - 145 mmol/L [facility] Potassium 4.5 3.5 - 5.0 mmol/L [facility] Comment: Please note: ??Patients with WBC >100,00 0 may have falsely elevated Potassium levels. ??For accurate Potassium quantif ication in these patients send serum separator tube (gold top) for subsequent determinations. ??Contact the Clinical Chemistry Laboratory if there are any qu estions. Chloride 100 98 - 107 mmol/L [facility] CO2 28 22 - 31 mmol/L [facility] Anion Gap 11 5 - 15 mmol/L [facility] Calcium 8.9 8.5 - 10.5 mg/dL [facility] Total Protein 6.8 6.1 - 8.0 gm/dL [facility] Albumin 3.8 3.2 - 5.2 gm/dL [facility] AST 26 0 - 30 unit/L [facility] ALT 40 (H) 0 - 30 unit/L [facility] Alk Phos 82 40 - 104 unit/L [facility] Total Bilirubin 0.7 0.2 - 1.3 mg/dL [facility] Estimated GFR 113 >=60 mL/min/1.73 m?? [facility] Comment: The eGFR was calculated using the CKD-EP I equation. As with all creatinine based estimates of kidney function, eGFR values calculated with the CKD-EPI equation are not accurate in patients wi th acute kidney failure, extremes of body mass or the acutely ill. http://[employer] http://[employer] eGFR 132 >=60 mL/min/1.73 m?? [facility] Comment: The eGFR was calculated using the CKD-EP I equation. As with all creatinine based estimates of kidney function, eGFR values calculated with the CKD-EPI equation are not accurate in patients wi th acute kidney failure, extremes of body mass or the acutely ill. http://[employer]nk[employer] http://[employer]/[facility] Specimen Anatomical Collection Method Collection Time Receive d Time (Source) Location / / Volume Laterality Blood specimen 08/27/2017 11:48 8 (specimen) AM EDT 12:00 PM EDT Resulting Agency Comment Spec In Lab Sathish Graves MD CHEMISTRY ORDERABLES Performing Organization Address City/[facility] [place] [address] CRP, acute inflammation (08/27/2017 11:48 AM EDT) P athologist Signature CRP 0.3 <=4.9 mg/L [facility] Specimen Anatomical Collection Method Collection Time Receive d Time (Source) Location / / Volume Laterality Blood specimen 08/27/2017 11:48 8 (specimen) AM EDT 12:00 PM EDT Resulting Agency Comment Spec In Lab Sathish Graves MD CHEMISTRY ORDERABLES Performing Organization Address City/[facility] [place] [address] QuantiFERON-TB Gold (08/27/2017 11:48 AM EDT) Patholo gist Method Time Signature QFT Nil 0.036 IU/mL [facility] QFT TB Ag-Nil 0.267 IU/mL [facility] QFT >10.000 IU/mL [facility] Mitogen-Nil [facility] Quantiferon TB Negative Negative [facility] Quantiferon TB M. tuberculosis (TB) infection NOT likely [facility] ?A negative specimen should have a TB Ag minus Ni l value less than 0.35 [facility] IU/mL OR a TB Ag minus Nil greater than or equal to 0.35 IU/mL and in addition HOSPITAL the TB Ag minus Nil value must be less than 25% of the Nil value. A negative LABORATORY specimen should have a Mitogen minus Nil value greater ernestina n or equal to 0.5 IU/mL. ?A negative QuantiFERON-TB Gold IT result does not prec lude the possibility of M. tuberculosis infection or tuberculosis dis ease: false negative results can be due to stage of infection (e.g ., specimen obtained prior to the development of cellular immune respons e), co-morbid conditions which affect immune function, or other individual immunological factors. Comment: ?The performance of the QuantiFERON -TB Gold IT test has not been extensively evaluated with specimens from the follow ing groups of individuals: ?1. Individuals who have impaired o r altered immune function such as those who have HIV infection or AIDS, those wh o have transplantation managed with immunosuppressive treatment or others wh o receive immunosuppressive drugs (e.g., corticosteroids, methotrexate, az athioprine, cancer chemotherapy), and those who have other clinical conditions : diabetes, silicosis, chronic renal failure, hematological disorders (e.g., leukemia and lymphomas), and other specific malignancies (e.g., carcinoma o f the head or neck and lung). ?2. Individuals younger than age 17 years. ?3. women. Note: Diagnosing or excluding tuberculosis dis ease, and assessing the probability of LTBI, require a combination of epidemiol ogical, historical, medical, and diagnostic findings that should be taken into account when interpreting QuantiFERON-TB Gold results. Reference ( http://www.cdc.gov/nchstp/tb/) Specimen Anatomical Collection Method Collection Time Receive d Time (Source) Location / / Volume Laterality Blood specimen 08/27/2017 11:48 8 7:31 (specimen) AM EDT AM EDT Resulting Agency Comment Spec In Lab Sathish Gravse MD CHEMISTRY ORDERABLES Performing Organization Address City/[facility]/[place] [address] Hepatitis B Surface Antigen (08/27/2017 11:48 AM EDT) Analysis Performed At Patho logist Time Signature HepB Surface Negative Negative [facility] LABORATORY Specimen Anatomical Collection Method Collection Time Receive d Time (Source) Location / / Volume Laterality Blood specimen 08/27/2017 11:48 8 (specimen) AM EDT 11:59 AM EDT Resulting Agency Comment Spec In Lab Sathish Graves MD CHEMISTRY ORDERABLES Performing Organization Address City/[facility]/[place] [address] Hepatitis C RNA, quantitative, PCR (08/27/2017 11:48 AM EDT) Component Value Ref Test Analysis Performed At Patholo gist Range Method Time Signature HCV Viral 160,761 IU/mL [facility] LABORATORY HCV Viral Result: [id number] IU/mL [facility] Indication for Study: Hepatitis C Infection [facility] Analysis: The Adan RealTime HCV assay is an in vitro reverse signal and communications maintainer LABORATORY polymerase chain reaction (RT-PCR)for the quantitation of hepatitis C viral (HCV) RNA in human serum or plasma (EDTA) from HCV-infected indivi duals. Sample: plasma (0.7 mL minimum volume) Method: Adan RealTime HCV Assay Linear Range: 12 IU/mL - 100,000,000IU/mL Note: The Adan RealTime HC V Assay has been approved by the U.S. Food and Drug Administration. Comment: [VERIFIED DATE]09.03.17 Verified By:Kailey Hugo (Electronic Signature) Specimen Anatomical Collection Method Collection Time Receive d Time (Source) Location / / Volume Laterality Blood specimen 08/27/2017 11:48 8 3:12 (specimen) AM EDT PM EDT Resulting Agency Comment Spec In Lab Sathish Graves MD IMMUNOLOGY ORDERABLES Performing Organization Address City/[facility]/[place] [address] Hepatitis B Surface Antibody (08/27/2017 11:48 AM EDT) P athologist Signature HepB Surface 18.6 IU/L [facility] Ab Quant [facility] LABORATORY Comment: HepB Surface Ab Quant: Unvaccinated: < 8.5 IU/L Vaccinated: > 11.5 IU/L HepB Surface Ab Positive [facility] LABORATORY Comment: Patient is considered to be immune to HB V infection. Expected Results: Vaccinated: Positive Unvaccinated: Negative Specimen Anatomical Collection Method Collection Time Receive d Time (Source) Location / / Volume Laterality Blood specimen 08/27/2017 11:48 8 (specimen) AM EDT 11:59 AM EDT Resulting Agency Comment Spec In Lab Sathish Graves MD IMMUNOLOGY ORDERABLES Performing Organization Address [facility]/[place] [address] Hepatitis B Core Antibody, IgM (08/27/2017 11:48 AM EDT) Analysis Performed At Patho logist Time Signature Hep B Core IgM Negative Negative [facility] LABORATORY Specimen Anatomical Collection Method Collection Time Receive d Time (Source) Location / / Volume Laterality Blood specimen 08/27/2017 11:48 8 (specimen) AM EDT 11:59 AM EDT Resulting Agency Comment Spec In Lab Sathish Graves MD IMMUNOLOGY ORDERABLES Performing Organization Address City/[facility] [place] [address] Hepatitis B Core Antibody, Total (08/27/2017 11:48 AM EDT) Analysis Performed At Patho logist Time Signature Hep B Core Ab Negative Negative [facility] LABORATORY Specimen Anatomical Collection Method Collection Time Receive d Time (Source) Location / / Volume Laterality Blood specimen 08/27/2017 11:48 8 (specimen) AM EDT 11:59 AM EDT Resulting Agency Comment Spec In Lab Sathish Graves MD CHEMISTRY ORDERABLES Performing Organization Address City/State/ZIP Code Phon e Number [place] [id number] documented in this encounter Visit Diagnoses Diagnosis Diarrhea, unspecified type Constipation, unspecified constipation t ype documented in this encounter Care Teams Customer Marketing Manager Relationship Specialty Start Date End Date Edilia Gabriel APRN PCP - General Family Medicine 07/12/17 09/04/18 documented as of this encounter
--- OUTSIDE RECORDS SUMMARY | 2021-10-20 07:59 | XMS_ITS | Encounter Summary ---
:1985 Author Organization [facility] [place] [address] Care Team Providers Name Role Phone Unknown Primary Care Provider Unavailable Encounter Details Date Type Department Care Team Description 07/04/2017 Telephone Gastroenterology at [facility] Bridget Blank [facility] [place] [address] [facility] [phone] GASTROENTEROLOGY DEPT [place], [place] [address] (Wo rk) Social History Tobacco [...] this encounter Miscellaneous Notes Telephone Encounter - Bridget Blank MD - 07/04/2017 4:[address] [facility] IVD user, chronic hepatitis, Hx lymphoma Presented yesterday with L sided abdominal pain for three days No diarrhea or GI symptoms, no fevers/chills No dysuria WBC 25 Hgb 15 Plt 500 3+ bacteria in urine Lactate normal Lipase and LFT normal Abdomen soft, no peritoneal signs Stable HD CT abdomen: Diffuse mucosal thickening in the small bowel and colon, no dilation, no mass or focal fluid identified. Small feces and air Meds: Levothyroxine NSAIDs Amphetamine and cocaine in urine Smokes cigarettes Unclear etiology of CT findings. No clinical signs of GI infection (no diarrhea, fever). Infectious,inflammatory, vascular and drug induced etiologies of enteritis and colitis should be considered. Pttaking multiple illicit drugs which could be a cause. No clear infection to treat at this point. Agree with observation. Recommend repeat imaging with CT or MR enterography to assess for resolution of bowel wall thickening following resolution of acute illness documented in this encounter Plan of Treatment Not on filedocumented as of this encounter Visit Diagnoses Not on filedocumented in this encounter Care Teams Fur Dresser Relationship Specialty Start Date End Date Unknown PCP - General 04/03/16 07/11/17 None documented as of this encounter
--- OUTSIDE RECORDS SUMMARY | 2021-10-20 07:59 | XMS_ITS | Encounter Summary ---
:1985 Author Organization [facility] [place] [address] Care Team Providers Name Role Phone GtzMere APRN Primary Care Provider Reason for Visit Reason Comments Routine Visit Encounter Details Date Type Department Care Team Description 09/28/2014 Routine Obstetrics and Marcie Baron MD [place]: 30w2d Gynecology at [facility] Celia gutierrez [place] [address] GYNECOLOGY [phone] [place], [place] [address] (Wo rk) Social History Tobacco [...] Sign Reading Time Taken Comments Blood Pressure 104/58 09/28/2014 2:07 PM EDT Pulse - - Temperature - - Respiratory Rate - - Oxygen Saturation - - Inhaled Oxygen Concentration - - Weight 78.9 kg (174 lb) 09/28/2014 2:07 PM EDT Height - - Body Mass Index 25.7 09/28/2014 10:22 AM EDT documented in this encounter Progress Notes Marcie Baron MD - 09/28/2014 2:47 PM EDT Had concerns about appearance of vulva - Exam normal tdap today RTC 2 weeks documented in this encounter Plan of Treatment Not on filedocumented as of this encounter Visit Diagnoses Diagnosis Supervision of high risk in th ird trimester Unspecified high-risk documented in this encounter Care Teams Jack Tamp Operator Relationship Specialty Start Date End Date Mere Gtz APRN PCP - General 04/10/13 04/02/16 documented as of this encounter
--- OUTSIDE RECORDS SUMMARY | 2021-10-20 07:59 | XMS_ITS | Encounter Summary ---
:1985 Author Organization [facility] [place] [address] Care Team Providers Name Role Phone Edilia Gabriel ISHAAN Primary Care Provider Encounter Details Date Type Department Care Team Description 12/17/2017 Interpretation Only [facility] [place], [address] [place] [address] [address] [facility] [phone] [place] [address] Social History Tobacco Use Types Packs/Day Years Used Date Never Assessed Sex Assigned at Date Recorded Female 04/13/2020 8:26 AM EST documented as of this encounter Plan of Treatment Not on filedocumented as of this encounter Procedures Procedure Name Priority Date/Time Associated Diagnosis Comme nts CT ABDOMEN AND Routine 12/17/2017 12:43 AM Result s for this PELVIS W CONTRAST EST procedure are in the results section. documented in this encounter Results CT Abdomen & Pelvis w Contrast (12/17/2017 12:43 AM EST) Anatomical Region Laterality Modality Abdomen, Pelvis Computed Tomography Specimen (Source) Anatomical Collection Method Collection Time Re ceived Time Location / / Volume Laterality 12/17/2017 12:43 AM EST Impressions 12/17/2017 3:04 AM EST [...] on filedocumented in this encounter Care Teams Buyer Renter Relationship Specialty Start Date End Date Edilia Gabriel APRN PCP - General Family Medicine 07/12/17 09/04/18 documented as of this encounter
--- OUTSIDE RECORDS SUMMARY | 2021-10-20 07:59 | XMS_ITS | Encounter Summary ---
:1985 [place] [address] Care Team Providers Name Role Phone Edilia Gabriel APRN Primary Care Provider Reason for Visit Reason Comments Urinary Tract Infection Encounter Details Date Type Department Care Team Description 02/03/2018 Emergency Emergency Department [facility] [place] [address] Social History Tobacco Use Types Packs/Day Years [...] Sign Reading Time Taken Comments Blood Pressure 127/83 02/03/2018 4:02 PM EST Pulse 73 02/03/2018 4:02 PM EST Temperature 36.5 ??C (97.7 ??F) 02/03/2018 4:02 PM EST Respiratory Rate 12 02/03/2018 4:02 PM EST Oxygen Saturation 100% 02/03/2018 4:02 PM EST Inhaled Oxygen Concentration - - Weight 59 kg (130 lb) 02/03/2018 4:02 PM EST Height 175.3 cm (5' 9) 02/03/2018 4:02 PM EST Body Mass Index 19.2 02/03/2018 4:02 PM EST documented in this encounter Medications at Time [...] with spacer documented as of this encounter Miscellaneous Notes ED Triage - Mere Leroy RN - 02/03/2018 4:03 PM EST Pt received A&O x4. Resp even and unlabored. No respiratory distress..Pt C/O pain burning and frequency with urination denies hematuria documented in this encounter Plan of Treatment Not on filedocumented as of this encounter Visit Diagnoses Not on filedocumented in this encounter Care Teams Piercer Relationship Specialty Start Date End Date Edilia Gabriel APRN PCP - General Family Medicine 07/12/17 09/04/18 documented as of this encounter
--- OUTSIDE RECORDS SUMMARY | 2021-10-20 07:59 | XMS_ITS | Encounter Summary ---
:1985 Author Organization [facility] [place] [address] Care Team Providers Name Role Phone Mere Gtz APRN Primary Care Provider Encounter Details Date Type Department Care Team Description 10/19/2014 Hospital Encounter Ultrasound at [facility] cardiac [facility] [address] Social History Tobacco Use Types Packs/Day [...] by 100 tablet 3 09/28/2014 12/05/19 15 [id number]-[id number]-Fe-FA mouth daily. ( VITAMIN) TabletIndications: Supervision of [...] Priority Date/Time Associated Comments Diagnosis US OB BIOPHYSICAL Routine 10/19/2014 12:01 cardiac Resul ts for this PROFILE WO NST PM EDT arrhythmia procedure are in the results section. documented in this encounter Results US OB Biophysical Profile Wo Nst (10/19/2014 12:01 PM EDT) Anatomical Region Laterality Modality Breast Ultrasound Specimen (Source) Anatomical Collection Method Collection Time Re ceived Time Location / / Volume Laterality 10/19/2014 12:01 PM EDT Narrative 10/19/2014 12:04 PM EDT OBSTETRICS REPORT ?(Signed Final 10/19/2014 12:04 ? pm) Patient Info ID #: ? [id number] ?: ??[birth year] (29 yrs) Name: ? SHIRLENE PARKS ?Visit Date: 10/19/2014 11:54 am Performed By Performed By: ?Zeenat Vargas RDMS Attending: ? Loraine NAPOLES, Marcie R. Referred By: ? E SILVESTRE PSCHIRRER MD Service(s) Provided ??UBPP - Biophysical Profile - [id number] ?[id number] ??UOBLIM - DE Interval Study - [id number] ?[id number] Indications ??Biophysical profile (BPP); arrh ythmia; ??Evaluate DE interval per verbal reque st from ??Shadia. Evaluation Num Of Fetuses: ? 1 Heart [...] Bladder: ?Visualized Doppler - Vessels Comment: ? DE interval demonstra nickolas (129 ms) and is not ?prolonged. Doppler - Uterine Artery Right S/D Ratio: ? RI: ?PI: ?%Tile Left S/D Ratio: ?RI: ?PI: ?%Tile Cervix Uterus Adnexa Left Ovary Not visualized Right Ovary Not visualized Impression 3rd Trimester Summary (BPP and DE Inter vals ONLY) Single intrauterine with a ge stational age of 33w 2d based on clinical ASHLIE. Amniotic fluid volume is appropriate fo r gestational age, CHRISTIE = 14.87 cm, MVP = 3.95 cm. Normal Biophysical Profile, 09/12. DE interval demonstrated (129 ms) and i s not prolonged. I ??viewed the images and agree with reza nick above interpretation. ?Pippa Anguiano Electronically Signed Final Report ?? 12:04 pm Procedure Note Marcie Baron MD - 10/19/2014Formattin g of this note might be different from the original. OBSTETRICS REPORT (Signed Final 015 12:04 pm) Patient Info ID #: [id number] : [birth year] (29 y rs) Name: SHIRLENE PARKS Visit Date: 10/19 11:54 am Performed By Performed By: Zeenat Vargas RDMS Attending: Marcie Baron MD Referred By: Sherly LEON MD Service(s) Provided UBPP - Biophysical Profile - [id number] UOBLIM - DE Interval Study - [id number] Indications Biophysical profile (BPP); arrhyt hmia; Evaluate DE interval per verbal request from Dr. Leon. Evaluation Num Of Fetuses: 1 Heart 139 [...] Visualized Bladder: Visualized Doppler - Vessels Comment: DE interval demonstrated (129 ms) and is not prolonged. Doppler - Uterine Artery Right S/D Ratio: RI: PI: %Tile Left S/D Ratio: RI: PI: %Tile Cervix Uterus Adnexa Left Ovary Not visualized Right Ovary Not visualized Impression 3rd Trimester Summary (BPP and DE Inter vals ONLY) Single intrauterine with a ge stational age of 33w 2d based on clinical ASHLIE. Amniotic fluid volume is appropriate fo r gestational age, CHRISTIE = 14.87 cm, MVP = 3.95 cm. Normal Biophysical Profile, 09/12. DE interval demonstrated (129 ms) and i s not prolonged. I viewed the images and agree with the above interpretation. Marcie Baron MD Electronically Signed Final Report 10/19 12:04 pm E Silvestre Leon MD IMG US OB ORDERABLES documented in this encounter Visit Diagnoses Diagnosis cardiac arrhythmia documented in this encounter Care Teams Clinical Coder Relationship Specialty Start Date End Date Mere Gtz APRN PCP - General 04/10/13 04/02/16 documented as of this encounter
--- OUTSIDE RECORDS SUMMARY | 2021-10-20 07:59 | XMS_ITS | Encounter Summary ---
:1985 Author Organization [facility] [place] [address] Care Team Providers Name Role Phone Mere Gtz APRN Primary Care Provider Reason for Visit Reason Comments Routine Visit Non-stress Test Encounter Details Date Type Department Care Team Description 11/25/2014 Routine Obstetrics and Sherly Reno [place]: 38w4d Gynecology at [facility] Celia gutierrez [facility] [place] [address] OBSTETRICS & [phone] GYNECOLOGY [place] [id number] (Wo rk) Social History Tobacco Use Types [...] Sign Reading Time Taken Comments Blood Pressure 120/71 11/25/2014 4:37 PM EDT Pulse - - Temperature - - Respiratory Rate - - Oxygen Saturation - - Inhaled Oxygen Concentration - - Weight - - Height - - Body Mass Index - - documented in this encounter Progress Notes Sherly Reno MD - 11/25/2014 5:30 PM EDT The case was discussed at the time of the visit or immediately after the visit. The assessment and plan were formulated in discussion with me and I agree with them as documented. I have reviewed the history, physical exam, assessment and plan with the resident. Major issues discussed today: Reactive NST. Flu shot. Recurrent, but resolving Shingles. Plan: RTC 1 week. Kathy Duarte MD - 11/25/2014 4:40 PM EDT Shirlene is here for NST today - reactive, reassuring. Her shingles has improved with acyclovir (she reports recurrent episodes since age 6, at least once per year, twice since her started). She has never had the shingles vaccine. GBS collected today. Flu shot today. Labor precautions reviewed. Discussed avoidance of FSE in light of hep C (she and her partner asked about this). RTC for next NST. documented in this encounter Plan of Treatment Not on filedocumented as of this encounter Procedures Procedure Name Priority Date/Time Associated Comments Diagnosis GROUP B STREPTOCOCCUS Routine 11/25/2014 6:06 PM Results for this SCREEN EDT procedure are i n the results section. GROUP B STREP CULTURE Routine 11/25/2014 6:06 PM arrhyth ada Results for this SCREEN EDT affecting procedure are i n , the results antepartum section. documented in this encounter Results Group B Streptococcus Screen (11/25/2014 6:06 PM EDT) P athologist Signature Group B Strep Neg CERNER Screen MILLENNIUM Specimen (Source) Anatomical Collection Method Collection Time Re ceived Time Location / / Volume Laterality Pooled specimen 11/25/2014 6:06 5 6:06 from vaginal PM EDT PM EDT introitus and rectal swab (specimen) Comment: Penicillin Allergy?->No Resulting Agency Comment Spec In Lab E Candi Reno MD MICROBIOLOGY - GENERAL ORDER MICHEL Performing Organization Address City/State/[place] [address] CERNER MILLENNIUM Group B Strep Culture Screen (11/25/2014 6:06 PM EDT) Component Value Ref Test Analysis Performed At [facility] gist Range Method Time Signature Group B No Group B CERNER Streptococcus Streptococci [facility] Culture isolated Specimen (Source) Anatomical Collection Method Collection Time Re ceived Time Location / / Volume Laterality Pooled specimen 11/25/2014 6:06 5 6:06 from vaginal PM EDT PM EDT introitus and rectal swab (specimen) Comment: PENICILLIN ALLERGY?->NO Resulting Agency Comment Spec In Lab E Candi Reno MD MICROBIOLOGY - GENERAL ORDER MICHEL Performing Organization Address City/State/[place] [address] [facility] documented in this encounter Visit Diagnoses Diagnosis arrhythmia affecting , an tepartum Abnormality in heart rate/rhythm, antepartum condition or complication History of recurrent shingles Personal history of other infectious and parasitic disease Encounter for immunization Need for other specified prophylactic va ccination against single bacterial disease documented in this encounter Care Teams Engineering Scientist Relationship Specialty Start Date End Date Mere Gtz APRN PCP - General 04/10/13 04/02/16 documented as of this encounter
--- OUTSIDE RECORDS SUMMARY | 2021-10-20 07:59 | XMS_ITS | Encounter Summary ---
:1985 Author Organization [facility] [place] [address] Care Team Providers Name Role Phone Ulisses Mere Sherly QUIROS Primary Care Provider Reason for Visit Reason Comments Routine Visit Encounter Details Date Type Department Care Team Description 11/02/2014 Routine Obstetrics and Marcie Baron MD [place]: 35w2d Gynecology at [facility] Celia gutierrez [place] & [place] [address] GYNECOLOGY [phone] [place] [address] (Wo rk) Social History Tobacco Use Types [...] Sign Reading Time Taken Comments Blood Pressure 118/68 11/02/2014 4:02 PM EDT Pulse - - Temperature - - Respiratory Rate - - Oxygen Saturation - - Inhaled Oxygen Concentration - - Weight 81.6 kg (180 lb) 11/02/2014 4:02 PM EDT Height - - Body Mass Index 26.58 11/02/2014 2:00 PM EDT documented in this encounter Progress Notes Marcie Baron MD - 11/02/2014 4:30 PM EDT She chose to discontinue her Zoloft 2 days ago due to worries about adverse effect on the baby afterdelivery. She denies current depression symptoms but admits to significant anxiety and worrying surrounding the baby's condition. I discussed the risk of developing depression if she is significantly symptomatic prior to and the adverse impact on development for babies whose mothers have depression. She is trying to decide whether to staff off the medicine, start back if her depression symptoms return to just start back on it now. I recommended that she at least restart Zoloft if she becomes more symptomatic and suggested that she contact her psychiatrist for his recommendation. Notes daily movement. Is recording kick counts at home. She does report have many hours at a time with no movement. Is not certain if the movement is decreasing. Will do NST today. RTC 1 week with GBS. She will do the TSH at an outside lab. documented in this encounter Plan of Treatment Not on filedocumented as of this encounter Visit Diagnoses Diagnosis cardiac arrhythmia Supervision of high risk in th ird trimester Unspecified high-risk Acquired hypothyroidism Unspecified hypothyroidism arrhythmia affecting , an tepartum Abnormality in heart rate/rhythm, antepartum condition or complication Depression Depressive disorder, not elsewhere class ified documented in this encounter Care Teams Lithographic Platemaker Relationship Specialty Start Date End Date Mere Gtz APRN PCP - General 04/10/13 04/02/16 documented as of this encounter
--- OUTSIDE RECORDS SUMMARY | 2021-10-20 07:59 | XMS_ITS | Encounter Summary ---
:1985 Author Organization [facility] [place] [address] Care Team Providers Name Role Phone Mere Gtz APRN Primary Care Provider Reason for Visit Reason Onset Date Comments Patient Not Seen 10/19/2014 Encounter Details Date Type Department Care Team Description 10/19/2014 Office Visit Psychiatry and German Alexis MD PATIENT NOT SEEN Behavioral Health at [facility] Celia gutier[place] [address] [place] [address] [phone] (Wo rk) Social History Tobacco Use Types [...] documented as of this encounter Progress Notes Namita Moran MD - 10/19/2014 11:57 AM EDT Psychiatry Teaching Physician Involvement Patient was delayed in the OB clinic due to need for further care/work- up so was unable to attend her appointment today. We have asked the OB clinic staff and psychiatry help desk intern to encourage her to call [phone] to reschedule and can see her next week in follow-up. German Alexis MD - 10/19/2014 11:00 AM EDT This patient was not seen in this encounter. documented in this encounter Plan of Treatment Not on filedocumented as of this encounter Visit Diagnoses Diagnosis PATIENT NOT SEEN documented in this encounter Care Teams System Support Developer Relationship Specialty Start Date End Date Mere Gtz APRN PCP - General 04/10/13 04/02/16 documented as of this encounter
--- OUTSIDE RECORDS SUMMARY | 2021-10-20 07:59 | XMS_ITS | Encounter Summary ---
:1985 Author Organization [facility] [place] [address] Care Team Providers Name Role Phone Mere Gtz APRN Primary Care Provider Encounter Details Date Type Department Care Team Description 10/16/2014 Anesthesia Event Birthing Arjun Bey MD [address] [place] [address] [phone] Anesthesia Record Procedure Summary Procedure Name Responsible [...] on filedocumented in this encounter Care Teams Brazing Machine Operator Automatic Relationship Specialty Start Date End Date Mere Gtz APRN PCP - General 04/10/13 04/02/16 documented as of this encounter
--- OUTSIDE RECORDS SUMMARY | 2021-10-20 07:59 | XMS_ITS | Encounter Summary ---
:1985 Author Organization [place] [id number] Care Team Providers Name Role Phone GtzMere APRN Primary Care Provider Encounter Details Date Type Department Care Team Description 10/20/2014 Hospital Encounter Non-Invasive CARDIO, ECHO SIXTY MIN APPT None cardiac Cardiology Lab Sherly Pitt MD [facility] [address] OBSTETRICS [place] [address] [place] [phone] Social History Tobacco Use Types Packs/Day Years [...] by 100 tablet 3 09/28/2014 12/05/19 15 Lgtuvmri-[id number]-Iln-Fe-FA mouth daily. ( VITAMIN) TabletIndications: Supervision of [...] Name Priority Date/Time Associated Comments Diagnosis ECHOCARDIOGRAM Routine 10/20/2014 5:10 PM cardiac Results for this EDT arrhythmia procedure are i n the results section. documented in this encounter Results Echocardiogram (10/20/2014 5:10 PM EDT) Anatomical Region Laterality Modality Other Specimen (Source) Anatomical Location Collection Method / Collectio n Time Received Time / Laterality Volume 10/21/2014 Narrative 10/21/2014 11:47 AM EDT Procedure: ?Pediatric Echocardiogram Patient: ?CHARLY JENKINS Piter ? (Age): 1985(29y) ? Med Rec#: ? [id number] ?Sex: ?F ? Site Loc: ? [facility] [place] ?Ht / Wt: ??(cm)/ (kg) ? Pt. Loc: ?Echo Lab ?BSA: ? Study Date: ?? 10/20/2014 ?Pt. Type: Study Quality: ?Tape: ? Referring: [email or web address] Reading: Reuben Conte ([id number]) Athletic Gear Custodian: Katerina [place] Athletic Gear Custodian: Ruben Kam Diagnosis: ICD-9 Codes / Indication [...] :46:26 Images reviewed and interpretation verif ied [facility] Cardiac Ultrasound Laboratory Procedure Note Reuben Conte MD - 10/21/2014Formatti ng of this note might be different from the original. Procedure: Pediatric Echocardiogram Patient: CHARLY MAYBERRY(Age): [birth year]29y) Med Rec#: [id number] Sex: F Site Loc: [facility] [place] Ht / Wt: (cm)/ (kg) Pt. Loc: Echo Lab BSA: Study Date: 10/20/2014 Pt. Type: Study Quality: Tape: Referring: LEESAHIRRJUAN Reading: Reuben Conte. ([id number]) Athletic Gear Custodian: Katerina Hill Athletic Gear Custodian: Ruben Kam Diagnosis: ICD-9 Codes / Indication [...] RV Value Units (Range) Z Score PV nathalie diam 2D 7.7 mm Aorta Value Units (Range) Z Score AV nathalie diam 2D 5.2 mm Asc Ao diam (LAX) 5.5 mm Isthmus diam (SSN) 4.2 mm All Z scores are estimated This report has been electronically sign ed by: _ Reuben Conte MD 10/21/2014 11:46:26 Images reviewed and interpretation verif ied [facility] Cardiac Ultrasound Laboratory E Candi Reno MD ECHO ORDERABLES documented in this encounter Visit Diagnoses Diagnosis cardiac arrhythmia documented in this encounter Care Teams Religion Department Chair Relationship Specialty Start Date End Date Mere Gtz APRN PCP - General 04/10/13 04/02/16 documented as of this encounter
--- OUTSIDE RECORDS SUMMARY | 2021-10-20 07:59 | XMS_ITS | Encounter Summary ---
:1985 Author Organization [facility] [place] [address] Care Team Providers Name Role Phone Mere Gtz APRN Primary Care Provider Encounter Details Date Type Department Care Team Description 12/10/2014 Telephone Obstetrics and [place]necology [place] [address] Social History Tobacco Use Types Packs/Day Years [...] Telephone Encounter - Aislinn Trevino RN - 12/25/2014 10:00 AM EST No further calls returned. documented in this encounter Plan of Treatment Not on filedocumented as of this encounter Visit Diagnoses Not on filedocumented in this encounter Care Teams Credit Review Officer Relationship Specialty Start Date End Date Mere Gtz APRN PCP - General 04/10/13 04/02/16 documented as of this encounter
--- OUTSIDE RECORDS SUMMARY | 2021-10-20 07:59 | XMS_ITS | Encounter Summary ---
:1985 Author Organization [facility] [address] Care Team Providers Name Role Phone Mere Gtz APRN Primary Care Provider Encounter Details Date Type Department Care Team Description 11/22/2014 Telephone Obstetrics and Gynecology Kathy Duarte MD at [facility] Celia gutierrez OBSTETRICS & [place] [address] DEPT [phone] [place] [id number] (Wo rk) Social History Tobacco Use Types [...] this encounter Miscellaneous Notes Telephone Encounter - Kathy Duarte MD - 11/22/2014 10:04 AM EDT Shirlene is calling because she thinks she has shingles - rash starting around 0100 this morning on her back. She has had shingles already once in this and this feels the same, is in the same distribution. She continues to have mild BH contractions, which have been ongoing for the past week ormore, no painful ctx, no bleeding or LOF. +FM. I advised her to come to the ED for eval and that theOB team will assess her there. She reports that she's 1.5 hours from here and there is a closer hospital, she will go to that ED. She will call back with any more concerns. She has FU this week for PNV's. documented in this encounter Plan of Treatment Not on filedocumented as of this encounter Visit Diagnoses Not on filedocumented in this encounter Care Teams Swedger Relationship Specialty Start Date End Date Mere Gtz APRN PCP - General 04/10/13 04/02/16 documented as of this encounter
--- OUTSIDE RECORDS SUMMARY | 2021-10-20 08:00 | XMS_ITS | Encounter Summary ---
:1985 Author Organization [facility] [place] [address] Care Team Providers Name Role Phone Mere Gtz ISHAAN Primary Care Provider Encounter Details Date Type Department Care Team Description 11/18/2013 Orders Only Orthopaedics at [facility] [place] Adriel Deal MD [facility] matt [facility] [address] ORTHOPAEDIC SURGERY [phone] [place] [phone] (Wo rk) Social History Tobacco Use Types Packs/Day Years Used Date Current Every Day Smoker 0.04 Comments: Shirlene says that she has tried and would like to try again. Alcohol Use Standard Drinks/Week Comments Yes 0 (1 standard drink = 0.6 oz pure alcoho l) Sex Assigned at Date Recorded Female 04/13/2020 8:26 AM EST documented as of this encounter Plan of Treatment Not on filedocumented as of this encounter Procedures Procedure Name Priority Date/Time Associated Diagnosis Comme nts FILM LIBRARY Routine 11/18/2013 9:15 AM Results f or this STORAGE ONLY DX EDT procedure ar e in HAND the results section. documented in this encounter Results Film Library- Storage only DX Hand (11/18/2013 9:15 AM EDT) Anatomical Region Laterality Modality Other Specimen (Source) Anatomical Collection Method Collection Time Re ceived Time Location / / Volume Laterality 11/18/2013 9:15 AM EDT Narrative 11/02/2014 6:49 PM EDT This is a Non-reportable exam Procedure Note PABLITO, UNSIGNED REPORT - 11/02/2014Formatt ing of this note might be different from the original. This is a Non-reportable exam Adriel Deal MD IMG FILM LIBRARY ORDERABLES documented in this encounter Visit Diagnoses Not on filedocumented in this encounter Care Teams Drying Can Worker Relationship Specialty Start Date End Date Mere Gtz APRN PCP - General 04/10/13 04/02/16 documented as of this encounter
--- OUTSIDE RECORDS SUMMARY | 2021-10-20 08:00 | XMS_ITS | Encounter Summary ---
:1985 Author Organization [facility] [place] [address] Care Team Providers Name Role Phone Janet Alonso APRN Primary Care Provider Reason for Visit Reason Comments GI Problem Encounter Details Date Type Department Care Team Description 06/04/2012 Office Visit Gastroenterology at [facility] Rosa Perez, Abnormal liver [facility] Celia gutierrez MD enzymes (Primary Dx) [place] [address] [place] [address] [place] [address] Social History Tobacco Use Types Packs/Day Years Used Date Current Every Day Smoker 0.5 Comments: Shirlene says that she has tried and would like to try again. Alcohol Use Standard Drinks/Week Comments Yes 0 (1 standard drink = 0.6 oz pure alcoho l) Sex Assigned at Date Recorded Female 04/13/2020 8:26 AM EST documented as of this encounter Last Filed Vital Signs Vital Sign Reading Time Taken Comments Blood Pressure 127/64 06/04/2012 10:13 AM EDT Pulse 75 06/04/2012 10:13 AM EDT Temperature - - Respiratory Rate - - Oxygen Saturation - - Inhaled Oxygen Concentration - - Weight 67.1 kg (148 lb) 06/04/2012 10:13 AM EDT Height 173.7 cm (5' 8.39) 06/04/2012 10:13 AM EDT Body Mass Index 22.25 06/04/2012 10:13 AM EDT documented in this encounter Progress Notes Jayy Allison MD - 06/11/2012 7:36 AM EDT I have seen and examined the patient with the GI fellow. I agree with the contents of the note. In brief, 26 y.o female with history of Hodgkin lymphoma (treated 5-6 yrs ago in remission) who was recently found to be HCV ab positive with elevated liver enzymes. Risk factors for HCV include past IVDA. Confirm HCV, exclude other diagnosis, reassess when results available. Details well outlined in fellow note. 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 Karma Joseph Reason for referral: abnormal LFT's, HCV ab positive HPI: 26 y.o PMH s/o Hodgkin lymphoma (treated 5-6 yrs ago in remission), genital condyloma, hx of IVDA, tattoos, who was referred by her animal caretaker physician for abnormal LFT's, HCV ab positive. Was first noted to have abn LFT's 07/17 where her ALT 116/AST 83, otherwise synthetic function WNL. Reports 2 weeks later was tested at a rehab at [facility] [place], per patient told her HCV test was inconclusive. Repeat LFT's 04/17, presented for loose stool/periumbilical discomfort, LFT's again advised ab normal, done at [facility], HCV ab positive per PCP (no records today) on visit. Last HIV test 07/17 negative. Risk factors:IVDA-sharing unclean needles with HCV known person, no hx of blood transfusions prior to , no children. Monogamous, one partner same sex relationship whom she admits to sharing needlesunclean. Tattoos: latest 7 months ago, done at home unclear hygeine, 7 yrs ago being oldest tattoo-done in her home as well. In terms of sx, denies abd pain, N/V, jaundice, pruritis. CT 07/17: liver normal parenchyma (done by onc for HL f/u) SH: socially drinking, tobacco use 4-5 cigs/day, IVDA: 2 years up until February, sharing needles with HCV patients PMH/surgical hx: Hodgekin's lymphoma Hypothyroidism Eustachian tubes, LN biopsy LEEP Current medications: respiridone levothyroxine FH: No GI malig, liver disease. Cousins (maternal) celiac disease, sister lactose intolerance, GERD Great grandmother: maternal:CRC Grandmother 9maternal throat, breast ca Physical Exam: BP 127/64 Pulse 75 General: tattoos, NAD, A,)x3, piercings HEENT: EOMI, anicteric Cardiac: RRR, no M/R/G Respiratory: CTA BL Abdomen: soft, mid epigastric discomfort, ND, no rebound/gaurding Extremities: no edema, rash Labs: 07/17 reviewed in [facility] Assessment/Plan: Ms. Kovacs is a 26 y.o PMH s/o Hodgkin lymphoma (treated 5-6 yrs ago in remission), genital condyloma, hx of IVDA, tattoos, who was referred by her animal caretaker physician for abnormal LFT's, HCV ab positive,asymptomatic otherwise. Recommendations as follows: -repeat HCV Ab, viral load, genotype (if detectable), LFT's -Hep A, B, iron studies, TTG, TSH, EDUARDO, ASMA, IL-28 -prevention: educated on transmission modes, advised to discuss testing with people whom she shared unclean needles with -vaccination: HAV, HBV if serologies negative -recommend treatment, pending results of HCV status, genotype. No need for liver biopsy given normalimaging, normal synthetic function/exam, recent dx infection. Follow up labs, clinic 6 weeks. Rosa Perez MD Case discussed with Dr. Allison documented in this encounter Plan of Treatment Not on filedocumented as of this encounter Procedures Procedure Name Priority Date/Time Associated Comments Diagnosis HCV GENOTYPE Routine 06/04/2012 11:57 Results for this AM EDT procedure are i n the results section. HCV QUANT Routine 06/04/2012 11:57 Abnormal liver Results f or this AM EDT enzymes procedure are i n the results section. .IL28B Routine 06/04/2012 11:57 Abnormal liver Results f or this AM EDT enzymes procedure are i n the results section. IL28B POLYMORPHISM Routine 06/04/2012 11:57 Abnormal liver GENOTYPING AM EDT enzymes HEPATITIS C ANTIBODY Routine 06/04/2012 11:57 Abnormal liver R esults for this AM EDT enzymes procedure are i n the results section. HEPATITIS A ANTIBODY, Routine 06/04/2012 11:57 Abnormal liver Results for this IGM AM EDT enzymes procedure are i n the results section. TISSUE Routine 06/04/2012 11:57 Abnormal liver Results f or this TRANSGLUTAMINASE, IGA AM EDT enzymes proced ure are in the results section. HEPATITIS B CORE Routine 06/04/2012 11:57 Abnormal liver Resul ts for this ANTIBODY, TOTAL AM EDT enzymes procedure ar e in the results section. HEPATITIS C RNA, Routine 06/04/2012 11:57 Abnormal liver QUANTITATIVE, PCR AM EDT enzymes SMOOTH MUSCLE Routine 06/04/2012 11:57 Abnormal liver Results for this ANTIBODY AM EDT enzymes procedure are i n the results section. HEPATITIS B SURFACE Routine 06/04/2012 11:57 Abnormal liver Re sults for this ANTIBODY AM EDT enzymes procedure are i n the results section. HEPATITIS B SURFACE Routine 06/04/2012 11:57 Abnormal liver Re sults for this ANTIGEN AM EDT enzymes procedure are i n the results section. EDUARDO Routine 06/04/2012 11:57 Abnormal liver Results f or this AM EDT enzymes procedure are i n the results section. TSH Routine 06/04/2012 11:57 Results for this AM EDT procedure are i n the results section. FERRITIN Routine 06/04/2012 11:57 Abnormal liver Results f or this AM EDT enzymes procedure are i n the results section. HEPATIC FUNCTION Routine 06/04/2012 11:57 Abnormal liver Resul ts for this PANEL AM EDT enzymes procedure are i n the results section. documented in this encounter Results HCV Genotype (06/04/2012 11:57 AM EDT) Component Value Ref Test Analysis Performed At [facility] Method Time Signature HCV Genotype Indication for study CERNER Hepatitis C Infection [facility] Result 1a Interpretation: The genotyping analysis has identified the presence of HCV genotype ??1a in the submitted specimen. ??In the [place], the most common HCV genotypes are 1a and 1b, followed by genotypes 2 and 3. Genotypes 2 and 3 hav e better therapeutic response rates (80%) than genotypes 1 and 4 (45% ) to current standard therapy (ribavirin plus pegylated interferon alpha-2a or alpha-2b). Response rate of genotype 5 appears to be similar to those of genotypes 2 and 3 whereas genotype 6 may be at an intermediate level between g enotype 1 and genotypes 2 or 3. Analysis: Identification of HCV genotype was carried out using Valmarc XT-8 detection system. Method: Plasma was initially subjected to quantitative RT-PCR usin g the Alexi KIMMIE Ampliprep/KIMMIE Taqman HCV assay. The HCV genotyping was car ried out using Valmarc XT-8 detection system that targets 5 -untranslated region of the HCV genome. The amplicon from Alexi assay served as a template for the nested PCR followed by a direct analysis on the electrochemical MiiPharos XT-8 detection system for the iden tification of HCV genotypes. The genotypes/sub types detected by this method include 1a, 1b, 2a/c, 2b, 3, 4, 5 and 6a/b. This test was validated and its performance frederick acteristics determined by the Molecular Pathology Laboratory at [facility]. It has not been cleared or approved by the FDA. This laboratory is regulated under CLIA as qualifie d to perform high-complexity testing. Thi s test is used for clinical purposes. It should not be regarded as investigational or for research. References: Willem RM, Erick DJ, Jennifer R, Chris SD. Evolvin g epidemiology of hepatitis C virus in the [place]. Clin Infect Dis. 2012; 55:S3-9. Napoleon F, Magdaleno D. Treating hepatitis C: current standa rd of care and emerging direct-acting antiviral agents. J Viral Hepat. 2012 ; 19:449-64. Catalina MH, Sera EB. Prevalence and treatment o f hepatitis C virus genotypes 4, 5, and 6. Clin Gastroenterol Hepatol. 2005; 3:C06-Z010. Demetrius JS, Quincy E, Hilton D, Sonu AJ, Giuliano ME. Cur rent and emerging antiviral treatments for hepatitis C infection. Br J Clin Pharmacol. 2012 Sep 17. [Epub ahead of print] Comment: [VERIFIED DATE]06.19.12 Verified By:Talya Smith (Electronic Signature) Specimen Anatomical Collection Method Collection Time Receive d Time (Source) Location / / Volume Laterality Blood specimen 06/04/2012 11:57 3 (specimen) AM EDT 11:23 AM EDT Resulting Agency Comment Spec In Lab Jayy Allison MD HEMATOLOGY ORDERABLES Performing Organization Address City/[facility]/ZIP Code Phon e Number [address] CERNER MILLENNIUM (ABNORMAL) TSH (06/04/2012 11:57 AM EDT) P athologist Signature TSH 5.53 (H) 0.27 - 4.20 CERNER mcIU/mL MILLENNIUM Specimen Anatomical Collection Method Collection Time Receive d Time (Source) Location / / Volume Laterality Blood specimen 06/04/2012 11:57 3 (specimen) AM EDT 12:12 PM EDT Resulting Agency Comment Spec In Lab Jayy Allison MD CHEMISTRY ORDERABLES Performing Organization Address City/[facility]/ZIP Code Phon e Number [address] CERMIGUEL DURHAMENNIUM IL28B (06/04/2012 11:57 AM EDT) Component Value Ref Test Analysis Performed At Patholo gist Range Method Time Signature IL28B IL28B ([id number]) GENOTYPING RESULT: ?? CT genotype [facility] Genotyping INTERPRETATION: IL28B genotype can be predictive of sustained viral response (SVR)in HCV-infected patients to varying degrees, depending on treat ment and viral genotype. ??Compared to the CC genotype, CT and TT genotypes are associated with a lower rate of SVR, most notably in HCV genotype 1 and 4 in fections being treated with interferon based-therapy. ? ?Rates of spontaneous clearance of HCV infection is also decreased in the CT and TT genotypes as compared to the CC genotype. (1-4) METHOD: A sequence including the [id number] polymorphism ([id number],) located 3 kilobases upstr eam of the interleukin 28B (interferon, lambda 3)(IL28B) gene i s amplified and genotyped by PCR using two primers for amplification and two probes to distinguish between the C and the T alleles. ??Genomic DNA used in thi s testing was isolated from peripheral blood. LIMITATIONS AND DISCLAIMERS: ??Although unlikely, rare variants or polymorphisms have the potential to interf ere with the performance of this test, resulting in inaccurate or incomplete genotypes. This test was developed and its performance frederick acteristics determined by the Molecular Pathology Laborato ry at [facility]. This test is used for clinical purposes and should not be considered as investig ational or for research purposes. ??It has not been cleared or approved by the U.S. Food and Drug A dministration. However, as a CLIA licensed laboratory, our facility is appr burke for such high-complexity clinical testing. 1. Donny PJ and Sonu RESENDIZ. J Gastroenterol Hepatol. 2012 2 7:212-222 2. Cristofer D, et al. Nature 2009 461(1104):191 401. 3. Miles ESQUEDA and Alexx Judd. J Hepatol. 2011 55(3):692-701. 4. Evon Johnson and Puma Henning. Curr Gastroenterol Rep. 2012 14:8 7-93. Comment: [VERIFIED DATE]06.11.12 Verified By:Claudy NAPOLES, Brianna Dumas Pathologist (Electronic Signature) Specimen Anatomical Collection Method Collection Time Receive d Time (Source) Location / / Volume Laterality Blood specimen 06/04/2012 11:57 3 (specimen) AM EDT 12:23 PM EDT Resulting Agency Comment Spec In Lab Jayy Allison MD CHEMISTRY ORDERABLES Performing Organization Address City/State/[place] [address] CERNER MILLENNIUM HCV Quant Alexi (06/04/2012 11:57 AM EDT) Component Value Ref Test Analysis Performed At [facility] Range Method Time Signature HCV Viral 588675 IU/mL CERNER Load MILLENNIUM HCV Viral Result: [id number] CERNER Load MILLENNIUM Indication for Study: Hepatitis C Infection Analysis: A quantitiative real time reverse transcriptase PC R assay was performed on extracted viral RNA for the purpose of quantifi cation. Sample: plasma (1 mL minimum volume) Method: Alexi Kimmie TaqMAN 48 HCV Linear Range: 43IU/mL - 69,000,000IU/mL (95% CI) Interpretation: The result of this analysis is w ithin the limits of detection of the assay. Note: This assay is being pe rformed in the [facility] Molecular Pathology Laboratory. Chencho Guerin, Ph.D. Director, Molecular Pathology Comment: [VERIFIED DATE]06.07.12 Verified By:Talya Smith (Electronic Signature) Specimen Anatomical Collection Method Collection Time Receive d Time (Source) Location / / Volume Laterality Blood specimen 06/04/2012 11:57 3 9:11 (specimen) AM EDT AM EDT Resulting Agency Comment Spec In Lab Jayy Allison MD HEMATOLOGY ORDERABLES Performing Organization Address [facility] [place] [place] [address] CERNER MILLENNIUM Tissue transglutaminase, IgA (06/04/2012 11:57 AM EDT) athologist [facility] TTG IgA Ab <4.0 <=3.9 u/ml CERNER MILLENNIUM Comment: Result Interpretation: Negative: ?<4 U/mL Weak Positive: ??4-10 U/mL Positive: ?>10 U/mL Specimen Anatomical Collection Method Collection Time Receive d Time (Source) Location / / Volume Laterality Blood specimen 06/04/2012 11:57 3 2:23 (specimen) AM EDT PM EDT Resulting Agency Comment Spec In Lab Jayy Allison MD IMMUNOLOGY ORDERABLES Performing Organization Address [facility] Phon e Number [address] CERNER MILLENNIUM Smooth Muscle Antibody (06/04/2012 11:57 AM EDT) athologist [facility] Sm Muscle Ab Negative Negative CERNER MILLENNIUM Comment: Test Performed by: [place] [address] Heading Repairer: Oh mathews III, M.D. Specimen Anatomical Collection Method Collection Time Receive d Time (Source) Location / / Volume Laterality Blood specimen 06/04/2012 11:57 3 1:37 (specimen) AM EDT PM EDT Resulting Agency Comment Spec In Lab Jayy Allison MD IMMUNOLOGY ORDERABLES Performing Organization Address City/State/[place] [address] CERNER MILLENNIUM EDUARDO (06/04/2012 11:57 AM EDT) athologist Signature EDUARDO Neg Neg CERNER [facility] Specimen Anatomical Collection Method Collection Time Receive d Time (Source) Location / / Volume Laterality Blood specimen 06/04/2012 11:57 3 2:23 (specimen) AM EDT PM EDT Resulting Agency Comment Spec In Lab Jayy Allison MD IMMUNOLOGY ORDERABLES Performing Organization Address City/[facility] Code Phon e Number [address] CERNER MILLENNIUM Ferritin (06/04/2012 11:57 AM EDT) athologist Signature Ferritin 37 15 - 150 CERNER ng/mL [facility]ILL[facility]ON[facility] Comment: Pediatric reference ranges not verified at [facility], interpret with caution. Reference ranges for females greater ernestina n 50 years of age approach values for men, i.e., 30-400 ng/mL. Specimen Anatomical Collection Method Collection Time Receive d Time (Source) Location / / Volume Laterality Blood specimen 06/04/2012 11:57 3 (specimen) AM EDT 12:02 PM EDT Resulting Agency Comment Spec In Lab Jayy Allison MD CHEMISTRY ORDERABLES Performing Organization Address City/[facility]/ZIP Code Phon e Number [address] CERNER MILLENNIUM Hepatitis B Surface Antigen (06/04/2012 11:57 AM EDT) [facility] Signature HepB Surface Negative Negative CERNER Ag MILLENNIUM Specimen Anatomical Collection Method Collection Time Receive d Time (Source) Location / / Volume Laterality Blood specimen 06/04/2012 11:57 3 (specimen) AM EDT 12:02 PM EDT Resulting Agency Comment Spec In Lab Jayy Allison MD CHEMISTRY ORDERABLES Performing Organization Address City/[facility]/[place] [address] CERNER MILLHON[facility] Hepatitis B Surface Antibody (06/04/2012 11:57 AM EDT) Analysis Performed At [facility] HepB Surface Negative CERNER Ab HERMINIOENNIUM Comment: Expected Results: Vaccinated: Positive Unvaccinated: Negative Please note: A positive result for this assay is consistent with a concentration of anti-HBs antibodies >10 mIU/ml, which indicates that anti-HBs antibodies have been detected at levels consistent with protective immunity against HBV infection. Specimen Anatomical Collection Method Collection Time Receive d Time (Source) Location / / Volume Laterality Blood specimen 06/04/2012 11:57 3 (specimen) AM EDT 12:02 PM EDT Resulting Agency Comment Spec In Lab Jayy Allison MD IMMUNOLOGY ORDERABLES Performing Organization Address City/[facility] Code Phon e Number [address] [facility] Hepatitis B Core Antibody, Total (06/04/2012 11:57 AM EDT) Analysis Performed At [facility] Hep B Core Ab Negative Negative [facility] Specimen Anatomical Collection Method Collection Time Receive d Time (Source) Location / / Volume Laterality Blood specimen 06/04/2012 11:57 3 (specimen) AM EDT 12:02 PM EDT Resulting Agency Comment Spec In Lab Jayy Allison MD CHEMISTRY ORDERABLES Performing Organization Address City/[facility]/ZIP Code Phon e Number [address] [facility] Hepatitis A Antibody, IgM (06/04/2012 11:57 AM EDT) Analysis Performed At [facility] Hepatitis A Negative Negative [facility] IgM [facility] Specimen Anatomical Collection Method Collection Time Receive d Time (Source) Location / / Volume Laterality Blood specimen 06/04/2012 11:57 3 (specimen) AM EDT 12:02 PM EDT Resulting Agency Comment Spec In Lab Jayy Allison MD IMMUNOLOGY ORDERABLES Performing Organization Address City/[facility]/ZIP Code Phon e Number [address] [facility] ([facility]NORM[facility] Hepatitis C Antibody (06/04/2012 11:57 AM EDT) Patholo gist Method Time Signature Hepatitis C Positive (A) Negative CERNER Ab MILLENNIUM Specimen Anatomical Collection Method Collection Time Receive d Time (Source) Location / / Volume Laterality Blood specimen 06/04/2012 11:57 3 (specimen) AM EDT 12:02 PM EDT Resulting Agency Comment Spec In Lab Jayy Allison MD IMMUNOLOGY ORDERABLES Performing Organization Address City/[facility]/ZIP Code Phon e Number [address] CERNER MILLENNIUM (ABNORMAL) Hepatic Function Panel (06/04/2012 11:57 AM EDT) P athologist Signature Total Protein 7.6 6.4 - 8.3 CERNER gm/dL MILLENNIUM Albumin 4.6 3.2 - 5.2 CERNER gm/dL MILLENNIUM AST 67 (H) 0 - 30 CERNER unit/L MILLENNIUM ALT 122 (H) 0 - 30 CERNER unit/L MILLENNIUM Alk Phos 69 40 - 104 CERNER unit/L MILLENNIUM Total 0.5 0.2 - 1.3 CERNER Bilirubin mg/dL MILLENNIUM Bili, Direct 0.1 0.0 - 0.3 CERNER mg/dL MILLENNIUM Specimen Anatomical Collection Method Collection Time Receive d Time (Source) Location / / Volume Laterality Blood specimen 06/04/2012 11:57 3 (specimen) AM EDT 12:02 PM EDT Resulting Agency Comment Spec In Lab Jayy Allison MD CHEMISTRY ORDERABLES Performing Organization Address City/[facility]/ZIP [facility] Phon e Number [address] CERNER MILLENNIUM documented in this encounter Visit Diagnoses Diagnosis Abnormal liver enzymes - Primary Other nonspecific abnormal serum enzyme levels documented in this encounter Care Teams Residential Life Director Relationship Specialty Start Date End Date Janet Alonso APRN PCP - General 06/04/12 04/09/13 documented as of this encounter
--- OUTSIDE RECORDS SUMMARY | 2021-10-20 08:00 | XMS_ITS | Encounter Summary ---
:1985 Author Organization [facility] [place] [address] Care Team Providers Name Role Phone Mere Gtz ISHAAN Primary Care Provider Encounter Details Date Type Department Care Team Description 12/09/2013 Orders Only [place] [facility] Adriel Deal MD [facility] [place] [id number] ORTHOPAEDIC SURGERY [phone] [place] [id number] (Wo rk) Social History Tobacco Use Types [...] Associated Diagnosis Comme nts FILM LIBRARY Routine 12/09/2013 9:15 AM Results f or this STORAGE ONLY DX EST procedure ar e in HAND the results section. documented in this encounter Results Film Library- Storage only DX Hand (12/09/2013 9:15 AM EST) Anatomical Region Laterality Modality Other Specimen (Source) Anatomical Collection Method Collection Time Re ceived Time Location / / Volume Laterality 12/09/2013 9:15 AM EST Narrative 11/02/2014 6:44 PM EDT This is a Non-reportable exam Procedure Note PABLITO, UNSIGNED REPORT - 11/02/2014Formatt ing of this note might be different from the original. This is a Non-reportable exam Adriel Deal MD IM FILM LIBRARY ORDERABLES documented in this encounter Visit Diagnoses Not on filedocumented in this encounter Care Teams Mineralogy Professor Relationship Specialty Start Date End Date Mere Gtz APRN PCP - General 04/10/13 04/02/16 documented as of this encounter
--- OUTSIDE RECORDS SUMMARY | 2021-10-20 08:00 | XMS_ITS | Encounter Summary ---
:1985 Author Organization [facility] [place] [address] Care Team Providers Name Role Phone Mere Gtz APRN Primary Care Provider Encounter Details Date Type Department Care Team Description 08/20/2013 Anesthesia Event Gastroenterology at [facility] Chanel Tay MD [facility] [place] [address] [facility] Estephanie Elizabeth CRNA [facility] [place] [address] [place] [address] Anesthesia Record Procedure Summary Procedure Name Responsible Anesthesia Start Anesthesia Stop Anesthesiologist Time Time COLONOSCOPY, Chanel Tay MD 08/20/13 1522 08/20/13 161 5 DIAGNOSTIC (N/A Trunk) Events Date Time Event Comment 08/20/2013 1514 1522 Start 1523 AN Verify 1525 An Start Data 1529 Break/Relief In CHANEL TAY MD 1530 Anesthesia Ready 1548 Break/Relief Out 1612 an stop data 1615 Stop Name Total Propofol 200 mg Propofol INF 526.5 mg lactated ringers infusion 0 mL Agents Name O2 Blood No blood administrations on file. Lines, Drains, and Airways Type Details Placement Removal PIV 08/20/13; 1441; median 08/20/13 1441 by Juan Pablo, 08/20/13 1717 by Pete, cubital vein right CHRISTEN Lewis RN (antecubital fossa); [id number] catheter system; 20 gauge, 1 in length; intradermal injection, tolerated well; 1; metacarpal vein (top of hand), right; 08/20/13; 1717 documented in this encounter Social History Tobacco [...] encounter OR Notes Anesthesia Postprocedure Evaluation - Chanel Tay MD - 08/20/2013 4:48 PM EDT Patient: Shirlene Kovacs Procedure(s) Performed: Procedure(s): COLONOSCOPY, DIAGNOSTIC EGD, UPPER GI ENDOSCOPY UPPER EUS- ENDOSCOPIC ULTRASOUND COLONOSCOPY FLEXIBLE, WITH BX COLONOSCOPY, POLYPECTOMY, REMOVAL LESION BY SNARE Actual Anesthetic: No value filed. Patient location: PACU Post-op pain: Adequate analgesia Post-op nausea: no nausea or vomiting Last Vitals: Filed Vitals: 08/20/13 1622 BP: 84/44 Pulse: 58 Resp: 16 Post-op cardiovascular and respiratory status: is stable Level of consciousness: awake, alert and oriented Complications: no apparent complications and tolerated the procedure well Fluid Status: normal Anesthesia Preprocedure Evaluation - Chanel Tay MD - 08/20/2013 3:13 PM EDT Pre-Anesthesia Evaluation for: Shirlene Kovacs a 28 y.o. female. Procedure(s): COLONOSCOPY, DIAGNOSTIC EGD, UPPER GI ENDOSCOPY UPPER EUS- ENDOSCOPIC ULTRASOUND Patient Active Problem List Diagnosis ??? Abdominal pain Persistent for several weeks. Location varies some in history but either or both LUQ and mid to lower abdomen. ??? Fainting Recent history of multiple episodes. Evaluated at [facility] ED in 04/2011. ??? Polysubstance abuse ??? Radiation-induced hypothyroidism As of 06/[address] Corbin [...] disease. Treatment: Chemotherapy and radiation therapy Facility: [place], [place]) Protocol: JOE-HD-90; 2 cycles OPPA, 2 [...] disease. Treatment: Chemotherapy and radiation therapy Facility: [place], [place]) Protocol: JOE-HD-90; 2 cycles OPPA, 2 [...] ??? Depression ??? Reflux ??? Drug abuse ??? Smoking ??? Irritable bowel No past surgical history on file. History Substance Use Topics ??? Smoking status: Current Every Day Smoker -- 0.0 packs/day ??? Smokeless tobacco: Not on file Comment: Shirlene says that she has tried and would like to try again. ??? Alcohol Use: Yes History Drug Use ??? Yes ??? Special: Cocaine, Injected Drugs, Narcotics, Opioids (heroin, pills) Comment: In the past Allergies Allergen Reactions ??? Cymbalta (Duloxetine) ??? Duloxetine Hcl ??? Laxative X-Lax ??? Varenicline Tartrate Nausea/Vomiting Medications: MAR and/or home medications have been reviewed. Physical Exam: There were no vitals filed for this visit. There is no height or weight on file to calculate BMI. Airway Assessment: Mallampati: II TM distance: >3 FB Neck ROM: full Cardiovascular Assessment: Pulmonary Assessment: Dental Assessment: - normal exam [facility] Assessment: IV access: Peripheral line Anesthesia Plan: ASA 2 MAC, with a(n) intravenous induction Chronic abd pain. LMP normal. Propofol, std monitors. Region - Other Informed Consent: Anesthetic plan and risks discussed with patient. Plan discussed with [employer]. [facility]. Assessment: documented in this encounter Plan of Treatment Not on filedocumented as of this encounter Visit Diagnoses Not on filedocumented in this encounter Administered Medications Inactive Administered Medications - up to 3 most recent administrations Medication Order MAR Action Action Date Dose Rate Site lactated ringers infusion New Bag 08/20/2013 3:22 PM EDT mL 50 mL/hr, Intravenous, CONTINUOUS, Starting on Sun08/20/13 at 1500, Until Sun08/20/13 at 1623, Endoscopy (Day of Procedure) propofol (DIPRIVAN) 10 mg/mL bolus injection Given 3:32 PM EDT 100 mg (Anesthesia) PRN, Starting on Sun08/20/13 at 1529, Until Sun08/20/13 at 1643, Anesthesia Intra-op Given 08/20/2013 3:29 PM EDT 100 mg propofol (DIPRIVAN) infusion New Bag 08/20/2013 3:29 PM 250 mcg/kg/min 100.4 mL/hr CONTINUOUS PRN, Starting on EDT Sun08/20/13 at 1529, Until Sun08/20/13 at 1643, Anesthesia Intra-op, Routine New Bag 08/20/2013 3:26 PM EDT 40 mcg/kg/min 16.1 mL/hr documented in this encounter Care Teams Door Technician Relationship Specialty Start Date End Date Mere Gtz APRN PCP - General 04/10/13 04/02/16 documented as of this encounter
--- OUTSIDE RECORDS SUMMARY | 2021-10-20 08:00 | XMS_ITS | Encounter Summary ---
:1985 [place] [address] Care Team Providers Name Role Phone Mere Gtz Sherly QUIROS Primary Care Provider Reason for Visit Reason Comments Routine Visit Encounter Details Date Type Department Care Team Description 09/09/2014 Routine Obstetrics and Sherly [place], [place]: [id number] Gynecology at [facility] Celia gutierrez [facility] [place] [address] OBSTETRICS & [phone] GYNECOLOGY [place], [place] [address] (Wo rk) Social History Tobacco [...] Sign Reading Time Taken Comments Blood Pressure 98/62 09/09/2014 10:16 AM EDT Pulse - - Temperature - - Respiratory Rate - - Oxygen Saturation - - Inhaled Oxygen Concentration - - Weight 76 kg (167 lb 8 oz) 09/09/2014 10:16 AM EDT Height - - Body Mass Index 24.74 06/19/2014 10:53 AM EDT documented in this encounter Progress Notes Sherly Reno MD - 09/09/2014 10:45 AM EDT Normal GTT today. Good movement. No contractions/ leaking fluid / bleeding / pain. No headache, vision changes, RUQ pain. Has not been taking synthroid regularly. We discussed options for optimizing taking her prescribed medication. She will have TSH drawn at next visit. Excited about beginning her childbirth education class. Is uncertain who is coming to her delivery with her. Would like to ask her mother, but thinks her mother may decline, a thought which makes her tearful. RTC 4 weeks, then q 2 weeks. documented in this encounter Plan of Treatment Not on filedocumented as of this encounter Procedures Procedure Name Priority Date/Time Associated Diagnosis Comme nts GESTATIONAL DIABETES Routine 09/09/2014 10:03 Results for this SCREEN AM EDT Hypothyroidism procedure are in following the results radioiodine therapy section. documented in this encounter Results Gestational Diabetes Screen (09/09/2014 10:03 AM EDT) athologist Signature Gluc Gest DM 128 mg/dL CERNER Screen MILLENNIUM Specimen Anatomical Collection Method Collection Time Receive d Time (Source) Location / / Volume Laterality Blood specimen 09/09/2014 10:03 5 (specimen) AM EDT 10:06 AM EDT Resulting Agency Comment Spec In Lab E Candi [place] MD CHEMISTRY ORDERABLES Performing Organization Address City/State/[place] [address] [facility] documented in this encounter Visit Diagnoses Diagnosis state, incidental 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
--- OUTSIDE RECORDS SUMMARY | 2021-10-20 08:00 | XMS_ITS | Encounter Summary ---
:1985 Author Organization [facility] [place] [address] Care Team Providers Name Role Phone Geraldine Lea MD Primary Care Provider Reason for Visit Reason Onset Date Comments Medical Care Coordination 02/12/2012 Encounter Details Date Type Department Care Team Description 02/12/2012 Telephone Internal Medicine at [facility] Cast[facility] Elizabeth RN Coordination [address] [place] [address] Social History Tobacco Use Types Packs/Day Years [...] encounter Miscellaneous Notes Telephone Encounter - Namita Castanon RN - 02/12/2012 2:54 PM EST [employer] Note Pt called after she NOS to new pt work-up last week with Dr Lea. She is in need of a PCP and lives some distance away. LM on her personal cell requesting return call to discuss plans to identify a PCP. documented in this encounter Plan of Treatment Not on filedocumented as of this encounter Visit Diagnoses Not on filedocumented in this encounter Care Teams Finance Broker Relationship Specialty Start Date End Date Geraldine Lea MD PCP - General 10/04/11 06/03/[address] [facility] [place] [address] documented as of this encounter
--- OUTSIDE RECORDS SUMMARY | 2021-10-20 08:00 | XMS_ITS | Encounter Summary ---
:1985 Author Organization [facility] [place] [address] Care Team Providers Name Role Phone Mere Gtz Sherly QUIROS Primary Care Provider Encounter Details Date Type Department Care Team Description 09/04/2014 Orders Only Orthopaedics at [facility] Adriel Deal, Bilateral hand pain [facility] [place] [address] [facility] [phone] DR ORTHOPAEDIC SURGERY [place], [place] [address] Social History Tobacco Use Types [...] on filedocumented as of this encounter Results XR Bilateral Hands Minimum [...] Diagnosis Bilateral hand pain Pain in limb Bilateral hand pain Pain in limb documented in this encounter Care Teams Overhead Crane Technician Relationship Specialty Start Date End Date Mere Gtz APRN PCP - General 04/10/13 04/02/16 documented as of this encounter
--- OUTSIDE RECORDS SUMMARY | 2021-10-20 08:00 | XMS_ITS | Encounter Summary ---
:1985 Author Organization [facility] [place] [address] Care Team Providers Name Role Phone Mere Gtz APRN Primary Care Provider Encounter Details Date Type Department Care Team Description 08/20/2013 Surgery Gastroenterology at [facility] Ugo Reed, COLONOSCOPY, [facility] Celia [place] [address] [facility] [phone] GASTROENTEROLOGY DEPT. [place], [place] [address] Social History Tobacco Use Types [...] Sign Reading Time Taken Comments Blood Pressure 84/44 08/20/2013 4:22 PM EDT Pulse 58 08/20/2013 4:22 PM EDT Temperature - - Respiratory Rate 16 08/20/2013 4:22 PM EDT Oxygen Saturation 98% 08/20/2013 4:22 PM EDT Inhaled Oxygen Concentration - - Weight - - Height - - Body Mass Index - - documented in this encounter Discharge Instructions Discharge InstructionsClarisa Freeman RN - 08/20/2013 4:26 PM EDT UPPER GI ENDOSCOPY WHAT TO EXPECT AFTER THE PROCEDURE Medications You may have a mild sore throat. Ice chips, popsicles, over the counter throat lozenges or spray may help numb your throat. This procedure should not cause a fever. Call your healthcare provider or seek immediate medical attention if: You have trouble swallowing. You have belly pain. Your stools are black or tarlike or have streaks of blood. You are sick to your stomach or cannot keep fluids down. Watch closely for changes in your health, and be sure to contact your doctor IF Your throat still hurts after a day or two You do not get better as expected. Colonoscopy What to expect after the procedure You may feel a little more gassy or bloated than usual. This is normal. You should expect the return of normal bowel function in the 2 to 3 days. Activity Because of the sedation that you received your judgement and reaction time are effected ?? Go home and rest quietly for the remainder of the day. You may resume your normal activities tomorrow. ?? Change from one position to the next slowly. You may lose your balance unexpectedly ?? Be careful on stairs, as you may be unsteady on your feet FOR THE NEXT 24 HRS ?? DO NOT DRIVE OR OPERATE ANY MACHINERY ?? DO NOT DRINK ALCOHOLIC BEVERAGES ?? DO NOT SIGN LEGAL DOCUMENTS ?? If you are a smoker: DO NOT SMOKE WHILE YOU ARE ALONE Diet ?? Start by eating small portions of foods that ordinarily will not upset your stomach . Avoid gas producing foods for the next few days ?? Be gentle with what you choose to start with ?? Drink plenty of fluids ( unless your doctor has told you not to). IV SITE-- slight redness, or tenderness is normal. You can use warm compresses if you become concerned. If the tenderness +/or redness increases or foul drainage and a red streak occurs, please contact your PCP immediately When shoud you call for help? Call 911 anytime you think you may need emergency care. For example If you pass out ( loss of consciousness) If you pass maroon or bloody stools If you have severe belly pain Call your doctor now or seek immediate medical care If your stools are black and tarlike If your stools have streaks of blood, but you did not have a biopsy or any polyps removed If you have belly pain, or your belly is swollen and firm If you vomit If you have a fever If you are very dizzy Watch closely for changes in your health, and be sure to contact your doctor if you have any problems Your doctor will let you know when you will need your next colonoscopy. The results of your test andyour risk for colorectal cancer will help your doctor decide how often you need to be checked. [facility] [phone] 8a-5p Same Day Endo [phone] 7a-8p Otherwise contact [phone] and ask to speak to the market research specialist biodiesel division manager Follow up care is a jack part of your treatment and safety. Be sure to make and go to all appointments, and call your doctor if you are having problems. Discharge instructions reviewed with patient who expresses understanding Patient InstructionsGoUgo yeboah MD - 08/20/2013 4:44 PM EDT Please see Recommendations in the Provation procedure report which is documented in the procedural note in E-DH. AttachmentsThe following attachments cannot be sent through Care Everywhere. POLYPS (ESTONIAN)EGD (UPPER ENDOSCOPY) : POST-OP (ESTONIAN)documented in this encounter Medications at Time of Discharge Medication Sig Dispensed Refills Start Date End Date LACTOBAC CMB Take by mouth daily. 0 #3/FOS/PANTETHINE (PROBIOTIC & ACIDOPHILUS ORAL) triamcinolone (KENALOG) Apply topically 2 0 12/04/2014 0.1 % cream times daily as needed. levothyroxine (SYNTHROID) Take 1 tablet by 90 tablet 6 11/0706/29/2014 125 mcg mouth daily. tabletIndications: Hypothyroidism risperiDONE (RISPERDAL) 1 Take 8 mg by mouth 0 06/19/2014 mg tablet daily. ALBUTEROL INHL Inhale into the 0 09/28 lungs as needed. ibuprofen (ADVIL;MOTRIN) Take 800 mg by mouth 0 06/19/2014 800 mg tablet every 6 hours as needed. polyethylene glycol Take 17 g by mouth 0 12/04/2014 (MIRALAX) 17 gram packet every other day. documented as of this encounter H&P Notes Ugo Reed MD - 08/20/2013 3:15 PM EDT Gastroenterology and Hepatology Pre-Procedure History and Physical Exam Procedure: Colonoscopy: /EUS/EGD Indication: Abdominal pain-see OPD notes. Patient Active Problem List Diagnosis Code ??? Hodgkin's disease in remission 201.90 ??? Radiation-induced hypothyroidism 244.1 ??? Smoking 305.1 ??? Polysubstance abuse 305.90 ??? Abdominal pain 789.00 ??? Fainting 780.2 EXAM: HEENT: Airway examined, oropharynx clear LUNGS: Clear to auscultation HEART: Regular rate and rhythm, normal S1, S2 ABDOMEN: Normal bowel sounds, soft, non tender, non distended, A/P Proceed with the planned endoscopic procedure. Risks and benefits of the procedure explained to the patient. Consent signed. documented in this encounter Miscellaneous Notes Miscellaneous - Provider, Scanning - 08/20/2013 9:42 PM EDT Miscellaneous - Provider, Scanning - 08/20/2013 9:38 PM EDT Op Note - Ugo Reed MD - 08/20/2013 4:44 PM EDT [facility] Operative Note Patient Name: Shirlene Kovacs : [id number] MR#: [id number] Case Date: 08/20/2013 Surgeon: Surgeon(s) and Role: * Ugo Reed MD - Primary Preoperative diagnosis: abd pain luq abd pain, hx of etoh ?pancreas (consult) Postoperative diagnosis: * No post-op diagnosis entered * Procedure(s): COLONOSCOPY, DIAGNOSTIC EGD, UPPER GI ENDOSCOPY UPPER EUS- ENDOSCOPIC ULTRASOUND COLONOSCOPY FLEXIBLE, WITH BX COLONOSCOPY, POLYPECTOMY, REMOVAL LESION BY SNARE Full procedure note is documented under the Procedure section of eD. Miscellaneous - Provider, Kayli - 08/20/2013 2:32 PM EDT documented in this encounter Plan of Treatment Not on filedocumented as of this encounter Procedures Procedure Name Priority Date/Time Associated Diagnosis Comme nts SPECIMEN TO Routine 08/20/2013 4:45 PM Results f or this PATHOLOGY EDT procedure are i n the results section. SPECIMEN TO Routine 08/20/2013 4:45 PM Results f or this PATHOLOGY EDT procedure are i n the results section. SURGICAL PATHOLOGY Routine 08/20/2013 4:44 PM Res ults for this REPORT EDT procedure are i n the results section. COLONOSCOPY, 08/20/2013 3:21 PM Abdominal pain, POLYPECTOMY, REMOVAL EDT unspecified site LESION BY SNARE (WRVU 4.67) COLONOSCOPY 08/20/2013 3:21 PM Abdominal pain, FLEXIBLE, WITH BX EDT unspecified site (WRVU 3.66) UPPER EUS- 08/20/2013 3:21 PM Abdominal pain, ENDOSCOPIC EDT unspecified site ULTRASOUND EGD, UPPER GI 08/20/2013 3:21 PM Abdominal pain, ENDOSCOPY EDT unspecified site COLONOSCOPY, 08/20/2013 3:21 PM Abdominal pain, DIAGNOSTIC EDT unspecified site UPPER EUS-ENDOSCOPIC Routine 08/20/2013 3:00 PM R esults for this ULTRASOUND EDT procedure are i n the results section. COLONOSCOPY Routine 08/20/2013 3:00 PM Results f or this EDT procedure are i n the results section. documented in this encounter Results Specimen to Pathology (surgical or derm) (08/20/2013 4:45 PM EDT) Specimen Anatomical Collection Method Collection Time Receive d Time (Source) Location / / Volume Laterality AP Specimen 08/20/2013 4:45 PM 4 4:45 EDT PM EDT Narrative [facility] - 08/20/2013 4:45 PM E DT Specimen requisition ordered. ??Separate Pathology report to follow Ugo Reed MD PATHOLOGY/CYTOLOGY ORDERABLE S Performing Organization Address City/State/ZIP Code Phon e Number [place] [phone] [facility] Specimen to Pathology (surgical or derm) (08/20/2013 4:45 PM EDT) Specimen Anatomical Collection Method Collection Time Receive d Time (Source) Location / / Volume Laterality AP Specimen 08/20/2013 4:45 PM 4 4:45 EDT PM EDT Narrative [facility] - 08/20/2013 4:45 PM E DT Specimen requisition ordered. ??Separate Pathology report to follow Ugo Reed MD PATHOLOGY/CYTOLOGY ORDERABLE S Performing Organization Address City/State/ZIP Code Phon e Number [address] [facility] Surgical Pathology Report (08/20/2013 4:44 PM EDT) [facility] gist Method Time Signature Surgical CERNER Pathology ? [facility] Report ? Provider: ?? UGO REED ?Pt. Name: ?? SHIRLENE TOBIAS ? Acc #: ?[id number] ?Pt. MRN: ?[id number] ? Col Date: ?? 4 ? /Sex: ?1985,(28 years),Female ? Rec Date: ?? 08/20/2013 ? LOC: ?4T ? SURGICAL PATHOLOGY ? ---Pathologic Diagnosis--- ? Endoscopic biopsies - ? A. Mildly active nonspecific ileitis. ? B. Tubular adenoma. ? CR-PX ? 08/21/13 ? AAS ? 08/22/13 Verified by: ? Shruthi Sigala MD ? Pathologist ? (Electronic Si gnature) ? The attending pathologist whose signature appears o n this report has ? reviewed all diagnostic slides and has edited the david ss and/or ? microscopic portion of the report in rendering the fi nal pathologic ? diagnosis. ? ---Gross Description--- ? A - Labeled/Fixative: BX T. On, formalin. ? Quantity/Size: Three, 0.2-0.5 cm. ? Tissue Description: Avalos tissues. ? Sections/Processing: (T1) ? B - Labeled/Fixative: Polyp rectum, formalin. ? Quantity/Size: One, 0.5 x 0.3 x 0.2 cm. ? Tissue Description: Avalos-brown tissues. ? Sections/Processing: Inked, bisected (T1) ??cjl ? ---Clinical Information--- ? Specimen Submitted: ? A - Bx ti ? B - Polyp rectum ? Clinical History: ? Mild erythema in ileum ? Clinical Diagnosis: ? Rule out ileitis, polyp-rule out TA Specimen (Source) Anatomical Collection Method Collection Time Re ceived Time Location / / Volume Laterality 08/20/2013 4:44 PM EDT Ugo Reed MD PATHOLOGY/CYTOLOGY ORDERABLE S Performing Organization Address City/State/ZIP Code Phon e Number [place] [phone] [facility] UPPER EUS-ENDOSCOPIC ULTRASOUND (08/20/2013 3:00 PM EDT) Component Value Ref Test Analysis Performed At [facility] Range Method Time Signature UPPER [facility] ENDOSCOPIC Endoscopy ULTRASOUND _ Patient Name: Shirlene Kovacs ? Procedure Date: 08/20/2013 3:00 PM ? Date of : 1985 ? Age: 28 ? Order #: [id number] ? Procedure: ? Upper EUS Indications: ? Exclusion of chronic pancreatitis, ? Generalized abdominal pain Providers: ? Ugo Reed MD, Baron Craft ? , CHRISTEN, Joan Sanchez, Jose Angel hnician Referring : ?Mere Gtz MD, Maddi ? MD Shukri Medicines: ? Monitored Anesthesia Care Complications: ? No immediate complications. Procedure: ? Pre-Anesthesia Assessment: ? - Prior to the procedure, a H istory ? and Physical was performed, a nd ? patient medications, allergie s and ? sensitivities were reviewed. The ? patient's tolerance of previo us ? anesthesia was reviewed. ? - The risks and benefits of t he ? procedure and the sedation op tions ? and risks were discussed with the ? patient. All questions were a nswered ? and informed consent was obta ined. ? - ASA Grade Assessment: II - A ? patient with mild systemic di sease. ? - Using IV propofol under the ? supervision of an anesthesiol ogist ? was determined to be medicall y ? necessary for this procedure based on ? complex procedure (ERCP, EUS) . ? The procedure, indications, b enefits, ? risks and alternatives were e xplained ? to the patient. Specifically ? discussed were potential ? complications including, but not ? limited to, bleeding, perfora tion, ? infection, missing a cancer, and ? adverse medication reactions. The ? Endosonoscope was introduced through ? the mouth, and advanced to th e second ? part of duodenum. The patient ? tolerated the procedure well. ? Findings: ? Endoscopic Finding : ? The examined esophagus was endoscopically normal. ? The entire examined stomach was endoscopically normal . ? The examined duodenum was endoscopically normal. ? Endosonographic Finding : ? There were very subtle pancreatic parenchymal ? abnormalities were noted in the entire pancreas. ? These consisted of hyperechoic strands and ? hyperechoic foci. The duct was normal in caliber but ? had echogenic side quijano. ? There was no sign of significant endosonographic ? abnormality in the common bile duct and in the ? gallbladder. ? Normal visualized portion of liver (limited exam). ? There was an oval shaped celiac LN that is likely ? benign/reactive. ? Impression: ?- Normal endoscopic exam. ? - Very mild pancreatic parenc hymal ? abnormalities consisting of e chogenic ? strands, foci and echogenic d uct wall ? were noted in the pancreas wh ich may ? represent a component of mild chronic ? pancreatitis or fibrosis but are ? non-specific and are of srinivaser eric ? clinical significance in the absence ? of other EUS criteria for chr onic ? pancreatitis. In and of thems elves ? they are non-specific and pro bably ? not clinically significant an d not a ? source of her symptoms ? - Probable reactive celiac LN related ? to Hep C. Recommendation: ?- Observe patient's clinical course. ? - F/up per Maddi Smith. ? Ugo Reed MD 08/20/2013 4:43 PM This report has been signed electronically. Number of Addenda: 0 Note Initiated On: 08/20/2013 3:00 PM Specimen (Source) Anatomical Collection Method Collection Time Re ceived Time Location / / Volume Laterality 08/20/2013 3:00 PM EDT Mere Gtz APRN GENERAL SURGICAL ORDERABLES Performing Organization Address City/State/ZIP Code Phon e Number [facility] COLONOSCOPY (08/20/2013 3:00 PM EDT) [facility] gist Method Time Signature COLONOSCOPY [facility] Endoscopy Patient Name: Shirlene Kovacs ? Procedure Date: 08/20/2013 3:00 PM ? Date of : 1985 ? Age: 28 ? Order #: [id number] ? Procedure: ? Colonoscopy Indications: ? Generalized abdominal pain, Change in ? bowel habits Providers: ? Ugo Reed MD, Baron Craft ? CHRISTEN Ivy, Joan Sanchez, Jose Angel hnician Referring : ?Mere Gtz MD, Maddi ? MD Shukri Medicines: ? Monitored Anesthesia Care Complications: ? No immediate complications. Procedure: ? Pre-Anesthesia Assessment: ? - Prior to the procedure, a H istory ? and Physical was performed, a nd ? patient medications, allergie s and ? sensitivities were reviewed. The ? patient's tolerance of previo us ? anesthesia was reviewed. ? - The risks and benefits of t he ? procedure and the sedation op tions ? and risks were discussed with the ? patient. All questions were a nswered ? and informed consent was obta ined. ? - ASA Grade Assessment: II - A ? patient with mild systemic di sease. ? The procedure, indications, b enefits, ? risks and alternatives were e xplained ? to the patient. Specifically ? discussed were potential ? complications including, but not ? limited to, bleeding, perfora tion, ? infection, missing a cancer, and ? adverse medication reactions. The ? patient was placed in the lef t ? lateral decubitus position, a nd a ? digital rectal exam was perfo rmed. ? The Colonoscope was inserted in the ? anus and under direct visuali zation, ? advanced to the terminal ileu m. ? Careful inspection was made a s the ? colonoscope was withdrawn. Th e ? patient tolerated the procedu re well. ? The quality of the bowel prep aration ? was good. The total duration of the ? procedure was 20 minutes. ? Findings: ? The perianal and digital rectal examinations were ? normal. ? There was mild focal erythema in terminal ileum. ? Biopsies were taken with a cold forceps for histology . ? A sessile polyp was found in the rectum. The polyp ? was 4 mm in size. The polyp was removed with a cold ? snare. Resection and retrieval were complete. ? The retroflexed view of the distal rectum and anal ? verge was normal and showed no anal or rectal ? abnormalities. ? The exam was otherwise without abnormality. ? Impression: ?- Mild non-specific erythema in ? terminal ileum that is probab ly ? insignificant but biopsies do ne. ? - One 4 mm polyp in the rectu m. ? Resected and retrieved. ? - The distal rectum and anal verge ? are normal on retroflexion vi ew. ? - The examination was otherwi se ? normal. Recommendation: ?- Await pathology results. ? - Repeat colonoscopy in 5 yea rs for ? surveillance. ? - F/up per Maddi Watt. ? Ugo Reed MD 08/20/2013 4:50 PM This report has been signed electronically. Number of Addenda: 0 Note Initiated On: 08/20/2013 3:00 PM Specimen (Source) Anatomical Collection Method Collection Time Re ceived Time Location / / Volume Laterality 08/20/2013 3:00 PM EDT Mere Gtz APRN GENERAL SURGICAL ORDERABLES Performing Organization Address City/State/ZIP Code Phon e Number [facility] documented in this encounter Visit Diagnoses Diagnosis Abdominal pain, unspecified site documented in this encounter Active and Recently Administered Medications Times are shown in EDT. Continuous Medication Order 08/18/2013 08/19/2013 08/20/2013 lactated ringers infusion (CANCELED) 1522 (New Bag - Provider: Estephanie Abraham CRNA)1552 (Anesthesia Volume Adjustment - Provider: Estephanie Abraham CRNA) 50 mL/hr, at 50 mL/hr, Intravenous, CONT INUOUS, Starting Sun08/20/13 at 1500, Until Sun08/20/13 at 1623, Endo (Day of Procedure) documented in this encounter Care Teams Set Up Mold Technician Relationship Specialty Start Date End Date Mere Gtz APRN PCP - General 04/10/13 04/02/16 documented as of this encounter
--- OUTSIDE RECORDS SUMMARY | 2021-10-20 08:00 | XMS_ITS | Encounter Summary ---
:1985 Author Organization [facility] [place] [address] Care Team Providers Name Role Phone Janet Alonso APRN Primary Care Provider Reason for Visit Reason Onset Date Comments Advice Only 06/13/2012 Encounter Details Date Type Department Care Team Description 06/13/2012 Telephone Endocrinology at [facility] C Livier Luna [place] [address] Social History Tobacco Use Types Packs/Day Years [...] Telephone Encounter - Livier Luna LPN - 06/17/2012 10:35 AM EDT Message Livier Luna LPN 06/13/2012 10:02 AM Signed Returning call to patient told by my Hep C doctor that my thryoid is off. Patient reports taking LT4 75 mcg 4-5 times per week as she forget some days. Patient concerned as to further or not she is to start Hep C treatment with thyroid off ++++++++++++++++++++ This result never returned to my in box!!! Please call pt and send Rx Levothyroxine 100 mcg Dispense 90 Take one daily Renew x 4 Called patient at which time above message was read to her. Patient also encouraged to really try totake Lt4 dose daily. Patient agrees with plan of care and asked that Rx go to [place] Telephone Encounter - Livier Luna LPN - 06/13/2012 9:56 AM EDT Returning call to patient told by my Hep C doctor that my thryoid is off. Patient reports taking LT4 75 mcg 4-5 times per week as she forget some days. Patient concerned as to further or not she is to start Hep C treatment with thyroid off documented in this encounter Plan of Treatment Not on filedocumented as of this encounter Visit Diagnoses Not on filedocumented in this encounter Care Teams Farm Crew Member Relationship Specialty Start Date End Date Janet Alonso APRN PCP - General 06/04/12 04/09/13 documented as of this encounter
--- OUTSIDE RECORDS SUMMARY | 2021-10-20 08:00 | XMS_ITS | Encounter Summary ---
:1985 Author Organization [facility] [place] [address] Care Team Providers Name Role Phone Janet Alonso APRN Primary Care Provider Reason for Visit Reason Comments Thyroid Problem Encounter Details Date Type Department Care Team Description 12/05/2012 Office Visit Endocrinology at [facility] C Magdaleno Corbin Hypothyroidism (Primary [facility] Dennis HA MD Dx) [place] [address] CENTER [phone] [place] [address] Social History Tobacco Use Types Packs/Day Years [...] Sign Reading Time Taken Comments Blood Pressure 108/71 12/05/2012 1:24 PM EDT Pulse 65 12/05/2012 1:24 PM EDT Temperature - - Respiratory Rate - - Oxygen Saturation - - Inhaled Oxygen Concentration - - Weight 68.2 kg (150 lb 6.4 oz) 12/05/2012 1:24 PM EDT Height - - Body Mass Index 22.87 09/26/2012 11:04 AM EDT documented in this encounter Progress Notes Magdaleno Corbin III, MD - 12/05/2012 2:04 PM EDT I saw Shirlene Kovacs in the Endocrinology clinic for follow-up of her thyroid status. She is on 100 mcg LT4, and notes no symptoms referable to dysthyroidism or goiter except for fatigue. She says she is taking her pills regularly, in contrast to the past.. 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 On examination she was a pleasant woman who appeared well with HR 82 regular and BP 138/74. 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 There was no tremor or lid lag, and the reflexes were normal. Her tongue was normally papillated. She had no rash or edema, and the thyroid was not palpable. There was no adenopathy. Her lungs were clear, her skin showed normal pigment and texture, and there was no heart murmur. In summary, she is clinically euthyroid. Overall, she appears to be doing better than I have ever seen in the past with respect to the mental illness. I gave her a prescription for 125 mcg LT4, and we arranged to check the TSH level. More than MM minutes of this 30 minute visit was spent discussing interpretation of her situation and potential approaches as outlined above. documented in this encounter Miscellaneous Notes Addendum Note - Delicia Narvaez - 12/05/2012 2:11 PM EDT Addended by: DELICIA NARVAEZ on: 12/05/2012 02:11 PM Modules accepted: Orders documented in this encounter Plan of Treatment Not on filedocumented as of this encounter Procedures Procedure Name Priority Date/Time Associated Diagnosis Comme nts TSH Routine 12/05/2012 2:14 PM Hypothyroidism Results for this EDT procedure are i n the results section . documented in this encounter Results TSH (12/05/2012 2:14 PM EDT) P athologist Signature TSH 2.39 0.27 - 4.20 CERNER mcIU/mL [facility] Specimen Anatomical Collection Method Collection Time Receive d Time (Source) Location / / Volume Laterality Blood specimen 12/05/2012 2:14 PM 013 2:25 (specimen) EDT PM EDT Resulting Agency Comment Spec In Lab Magdaleno Corbin III, MD CHEMISTRY ORDERABLES Performing Organization Address City/State/ZIP Code Phon e Number [place] [phone] [facility] documented in this encounter Visit Diagnoses Diagnosis Hypothyroidism - Primary Unspecified hypothyroidism documented in this encounter Care Teams Contracting Specialist Relationship Specialty Start Date End Date Janet Alonso, ISHAAN PCP - General 06/04/12 documented as of this encounter
--- OUTSIDE RECORDS SUMMARY | 2021-10-20 08:00 | XMS_ITS | Encounter Summary ---
:1985 Author Organization [facility] [place] [address] Care Team Providers Name Role Phone Mere Gtz APRN Primary Care Provider Reason for Visit Reason Comments Follow-up Encounter Details Date Type Department Care Team Description 08/04/2013 Follow-Up Gastroenterology at [facility] Maddi Watt, Abdominal pain, [facility] Celia gutierrez [place] [address] [facility] (Primary Dx) [phone] CENTER GASTROENTEROLOGY DEPT. [place], [place] [address] Social History Tobacco Use Types [...] Sign Reading Time Taken Comments Blood Pressure 127/85 08/04/2013 11:06 AM EDT Pulse 78 08/04/2013 11:06 AM EDT Temperature - - Respiratory Rate - - Oxygen Saturation - - Inhaled Oxygen Concentration - - Weight 66.9 kg (147 lb 8 oz) 08/04/2013 11:06 AM EDT Height 172.7 cm (5' 8) 08/04/2013 11:06 AM EDT Body Mass Index 22.43 08/04/2013 11:06 AM EDT documented in this encounter Progress Notes Maddi Watt RN - 08/04/2013 11:12 AM EDT Pt is here for abdominal pain. Two to three months ago, she had an acute episode of mid to lower abdominal pain. Sharp in nature. Can last for a few hours. Eating can be a trigger. But frequently the pain occurs without eating. Also, having luq pain as well. When this pain occurs, it feels puffy in this area. Associated nausea with the pain. Pain occurs daily. No particular pattern. No correlation with diet or any other activity. No correlation with the pain and etoh/drug use. Long hx of constipation. Began after treatment for Hodgkin lymphoma. Pain does not improve with the passage of stool or flatus. Can experience distention with the constipation. Distention improves onceable to empty. Can go days without a bowel movement. Usually does well with miralax but having less of an effect. Also, tried stool softeners with no relief. Stools are hard, has to strain. Anal pain with passage, hx of fissures. Small amount of bright red blood with wiping. No seepage. No significant gas. Weight is stable. Ibuprofen 800mg for the pain. At times can be helpful. Was not taking nsaids priorto this pain. Appetite can fluctuate due to the constipation, feels foods contribute to the constipation and feelsfull and has less of an appetite. Hx of reflux. Uses prevacid otc prn with relief. Sx 1-2x per week, seems to be food dependent. No dysphagia, odynophagia, vomiting, chest pain, ent concerns. No testing or tx to date for pt's sx. Exam: soft, non-tender, no mass, organomegaly Plan: 1. Abdominal pain of unclear etiology: obtain cbc, cmp, tsh, ttg today. kub today. Schedule egd/eus and colonoscopy. 2. Constipation: linzess 145-290mcg qd. 3. F/u with pt once results received. documented in this encounter Miscellaneous Notes Addendum Note - Rosie Oliver - 08/04/2013 12:15 PM EDT Addended by: ROSIE OLIVER on: 08/04/2013 12:15 PM Modules accepted: Orders documented in this encounter Plan of Treatment Scheduled Orders Name Type Priority Associated Diagnoses Order S chedule COLONOSCOPY Procedures Routine Abdominal pain, Ordered: unspecified site UPPER GI ENDOSCOPY Procedures Routine Abdominal pain, Ordere d: 08/04/2013 unspecified site documented as of this encounter Procedures Procedure Name Priority Date/Time Associated Comments Diagnosis HEMOGRAM Routine 08/04/2013 12:41 Abdominal pain, Results for this PM EDT unspecified site procedure a re in the results section. DIFFERENTIAL, Routine 08/04/2013 12:41 Abdominal pain, Results for this AUTOMATED PM EDT unspecified site procedure a re in the results section. TISSUE Routine 08/04/2013 12:41 Abdominal pain, Results for this TRANSGLUTAMINASE, IGA PM EDT unspecified site pr ocedure are in the results section. CBC (WITH DIFF) Routine 08/04/2013 12:41 Abdominal pain, PM EDT unspecified site TSH Routine 08/04/2013 12:41 Abdominal pain, Results for this PM EDT unspecified site procedure a re in the results section. COMPREHENSIVE Routine 08/04/2013 12:41 Abdominal pain, Results for this METABOLIC PANEL PM EDT unspecified site procedur e are in (NON-FASTING) the results section. documented in this encounter Results (ABNORMAL) Differential, Automated (08/04/2013 12:41 PM EDT) [facility] gist Method Time Signature Neutrophils % 64.7 34.0 - CERNER 71.0 % MILLENNIUM Neutr Abs (ANC) 6.76 (H) 1.50 - CERNER 6.30 MILLENNIUM x10(3)/mc L Lymphocytes % 25.1 19.0 - CERNER 53.0 % MILLENNIUM Lymphocytes Abs 2.6 1.0 - 3.6 CERNER x10(3)/mc MILLENNIUM L Monocytes % 7.6 4.0 - CERNER 13.0 % MILLENNIUM Monocyte Abs 0.8 0.2 - 1.0 CERNER x10(3)/mc MILLENNIUM L Eosinophils % 2.0 0.0 - 7.0 CERNER % MILLENNIUM Eosinophils Abs 0.2 0.0 - 0.5 CERNER x10(3)/mc MILLENNIUM L Basophils % 0.5 0.0 - 2.0 CERNER % MILLENNIUM Basophils Abs 0.0 0.0 - 0.2 CERNER x10(3)/mc MILLENNIUM L Immature Gran % 0.10 0.00 - CERNER 0.66 % MILLENNIUM Comment: Immature granulocytes(IG's)percentage an d absolute count will include metamyelocytes, myelocytes, and promyelo cytes. Blood smears from CBCs yielding IG's will be scanned manually for concor dance. If this scan disagrees with the automated IG or if promyelocytes are not ed, a manual differential will be performed. Ayah Gran Abs 0.01 0.00 - 0.05 x10(3)/mcL CER NER MILLENNIUM Specimen Anatomical Collection Method Collection Time Receive d Time (Source) Location / / Volume Laterality Blood specimen 08/04/2013 12:41 4 (specimen) PM EDT 12:50 PM EDT Resulting Agency Comment Spec In Lab Tulio Sagastume MD HEMATOLOGY ORDERABLES Performing Organization Address City/State/ZIP Code Phon e Number [place] [id number] CERNER MILLENNIUM (ABNORMAL) Hemogram (08/04/2013 12:41 PM EDT) P athologist Signature WBC 10.5 (H) 4.0 - 10.0 CERNER x10(3)/mcL MILLENNIUM RBC 4.29 3.93 - CERNER 5.22 MILLENNIUM x10(6)/mcL Hemoglobin 13.1 11.2 - CERNER 15.7 gm/dL MILLENNIUM Hematocrit 39.3 34.0 - CERNER 45.0 % MILLENNIUM MCV 91.6 79.0 - CERNER 94.0 fL MILLENNIUM MCH 30.5 26.6 - CERNER 32.2 pg MILLENNIUM MCHC 33.3 32.0 - CERNER 36.5 gm/dL MILLENNIUM Platelets 290 145 - 370 CERNER x10(3)/mcL MILLENNIUM RDWSD 41.3 35.0 - CERNER 46.0 fL MILLENNIUM RDWCV 12.4 10.9 - CERNER 14.4 % [facility] MPV 10.1 9.0 - 12.0 CERNER fL [facility] Specimen Anatomical Collection Method Collection Time Receive d Time (Source) Location / / Volume Laterality Blood specimen 08/04/2013 12:41 4 (specimen) PM EDT 12:50 PM EDT Resulting Agency Comment Spec In Lab Tulio Sagastume MD HEMATOLOGY ORDERABLES Performing Organization Address City/[facility] [address]/ZIP Code Phon e Number [address] [facility] Tissue transglutaminase, IgA (08/04/2013 12:41 PM EDT) athologist Signature TTG IgA Ab <4.0 <=3.9 u/ml [facility] Comment: Result Interpretation: Negative: ?<4 U/mL Weak Positive: ??4-10 U/mL Positive: ?>10 U/mL Specimen Anatomical Collection Method Collection Time Receive d Time (Source) Location / / Volume Laterality Blood specimen 08/04/2013 12:41 4 2:38 (specimen) PM EDT PM EDT Resulting Agency Comment Spec In Lab Tulio Sagastume MD IMMUNOLOGY ORDERABLES Performing Organization Address City/[facility] [address]/ZIP Code Phon e Number [address] [facility] TSH (08/04/2013 12:41 PM EDT) athologist Signature TSH 1.84 0.27 - 4.20 CERNER mcIU/mL [facility] Specimen Anatomical Collection Method Collection Time Receive d Time (Source) Location / / Volume Laterality Blood specimen 08/04/2013 12:41 4 (specimen) PM EDT 12:50 PM EDT Resulting Agency Comment Spec In Lab Tulio Sagastume MD CHEMISTRY ORDERABLES Performing Organization Address City/[facility] [address]/ZIP [facility] Phon e Number [address] [facility] (ABNORMAL) Comprehensive metabolic panel (non-fasting) (08/04/2013 12:41 PM EDT) athologist Signature Glucose Lvl 90 60 - 199 CERNER mg/dL MILLENNIUM Comment: Diabetes: >=200 mg/dL plus symp toms BUN 8 8 - 18 mg/dL CERNER MILLENNIUM Creatinine 0.76 0.70 - 1.20 mg/dL CERNER MILL ENNIUM Comment: Please note that the pediatric reference intervals supplied above were not validated at [facility]. Results from pediatri c patients should be interpreted in conjunction to the patient's age, height and muscle mass. Sodium 136 135 - 145 mmol/L CERNER JEZ NIUM Potassium 3.9 3.5 - 5.0 mmol/L CERNER JEZ NIUM Comment: Please note: ??Patients with WBC >100,00 0 may have falsely elevated Potassium levels. ??For accurate Potassium quantif ication in these patients send serum separator tube (gold top) for subsequent determinations. ??Contact the Clinical Chemistry Laboratory if there are any qu estions. Chloride 100 98 - 107 mmol/L CERNER MILLENN IUM CO2 26 22 - 31 mmol/L CERNER MILLENNI UM Anion Gap 10 5 - 15 mmol/L CERNER MILLENNIU M Calcium 9.5 8.5 - 10.5 mg/dL CERNER JEZ NIUM Total Protein 7.2 6.4 - 8.3 gm/dL CERNER MIL LENNIUM Albumin 4.0 3.2 - 5.2 gm/dL CERNER MILLENN IUM AST 66 (H) 0 - 30 unit/L CERNER MILLENNIU M ALT 102 (H) 0 - 30 unit/L CERNER MILLENNIU M Alk Phos 67 40 - 104 unit/L CERNER MILLENN IUM Total Bilirubin 1.0 0.2 - 1.3 mg/dL CERNER M ILLENNIUM Bili, Direct 0.3 0.0 - 0.3 mg/dL CERNER MILL ENNIUM Estimated GFR >60 >=60 CERNER MILLENNIU M Comment: This estimated GFR (eGFR) value was calc ulated using the MDRD equation which has been validated on patients between t he ages of 18 and 70. The MDRD should not be used to assess kidney function in patients < 18 years of age or in patients with extremes of body mass, or in patients with acute kidney failure. This value should be multiplied by 1.2 f or patients. For further information please copy and past e the following links into your internet browser. [email or web address] [email or web address] Specimen Anatomical Collection Method Collection Time Receive d Time (Source) Location / / Volume Laterality Blood specimen 08/04/2013 12:41 4 (specimen) PM EDT 12:50 PM EDT Resulting Agency Comment Spec In Lab Tulio Sagastume MD CHEMISTRY ORDERABLES Performing Organization Address City/State/ZIP Code Phon e Number [place] [phone] [facility] XR abdomen flat and upright (08/04/2013 12:24 PM EDT) Anatomical Region Laterality Modality Abdomen N/A Radiographic Imaging Specimen (Source) Anatomical Collection Method Collection Time Re ceived Time Location / / Volume Laterality 08/04/2013 12:24 PM EDT Narrative 08/04/2013 1:17 PM EDT Examination ABD FLAT AND UPRIGHT Clinical History ?constipation, abd pain Comparison 07/28/2011. Technique 3 views of the abdomen. Findings There is stool seen predominantly in the ascending colon but scattered throughout the colon. ??There is no evid ence of free air. ??There is a relative paucity of air in the small bowel. ??The re is no evidence of obstruction. Mild apex right scoliosis is noted ?? Procedure Note Aida Washington MD - 08/04/2013Form atting of this note might be different from the original. Examination ABD FLAT AND UPRIGHT Clinical History ?constipation, abd pain Comparison 07/28/2011. Technique 3 views of the abdomen. Findings There is stool seen predominantly in the ascending colon but scattered throughout the colon. There is no eviden ce of free air. There is a relative paucity of air in the small bowel. There is no evidence of obstruction. Mild apex right scoliosis is noted Tulio Sagastume MD IMG DX ORDERABLES documented in this encounter Visit Diagnoses Diagnosis Abdominal pain, unspecified site - Prima ry Abdominal pain, unspecified site documented in this encounter Care Teams Student Counselor Relationship Specialty Start Date End Date Mere Gtz, ELECTROTYPER PCP - General 04/10/13 04/02/16 documented as of this encounter
--- OUTSIDE RECORDS SUMMARY | 2021-10-20 08:00 | XMS_ITS | Encounter Summary ---
:1985 Author Organization [facility] [place] [address] Care Team Providers Name Role Phone Mere Gtz ISHAAN Primary Care Provider Encounter Details Date Type Department Care Team Description 11/11/2013 Orders Only Orthopaed[place] [facility] Adriel Deal MD [facility] matt [facility] [place] [address] ORTHOPAEDIC SURGERY [phone] [place] [id number] (Wo rk) Social History Tobacco Use Types [...] Associated Diagnosis Comme nts FILM LIBRARY Routine 11/11/2013 9:15 AM Results f or this STORAGE ONLY DX EDT procedure ar e in HAND the results section. documented in this encounter Results Film Library- Storage only DX Hand (11/11/2013 9:15 AM EDT) Anatomical Region Laterality Modality Other Specimen (Source) Anatomical Collection Method Collection Time Re ceived Time Location / / Volume Laterality 11/11/2013 9:15 AM EDT Narrative 11/02/2014 6:53 PM EDT This is a Non-reportable exam Procedure Note PABLITO, UNSIGNED REPORT - 11/02/2014Formatt ing of this note might be different from the original. This is a Non-reportable exam Adriel Deal MD IMG FILM LIBRARY ORDERABLES documented in this encounter Visit Diagnoses Not on filedocumented in this encounter Care Teams Supervisor Grounds Relationship Specialty Start Date End Date Mere Gtz APRN PCP - General 04/10/13 04/02/16 documented as of this encounter
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
--- OUTSIDE RECORDS SUMMARY | 2021-10-20 08:00 | XMS_ITS | Encounter Summary ---
:1985 Author Organization [facility] [place] [address] Care Team Providers Name Role Phone Mere Gtz APRN Primary Care Provider Encounter Details Date Type Department Care Team Description 07/13/2014 Hospital Encounter Pulmonology at [facility] SCHEDULE 1, PFT Unspecified [facility] Katerina Doyle MD [facility] [address] OBSTETRICS & [place] [address] [place] [phone] Social History Tobacco Use Types Packs/Day Years [...] Sig Dispensed Refills Start Date End Date levothyroxine (SYNTHROID) Take 1 tablet by 30 tablet 12 06/0608/13/2014 112 mcg Tablet mouth daily. methadone (DOLOPHINE) 5 Take 6 mg by mouth 0 08/27/2017 mg Tablet every 8 hours. albuterol (PROVENTIL Inhale 2 puffs into 1 Inhaler 1 201408/03/2019 HFA;VENTOLIN HFA;PROAIR) the lungs every 4 90 mcg/actuation HFA hours as needed for Aerosol Inhaler Wheezing. Use with spacer Take by mouth. 0 09/28/2014 Lekdeuzb-Qi-Lxp-Fe-FA Tablet triamcinolone (KENALOG) Apply topically 2 0 12/04/2014 0.1 % cream times daily as needed. ALBUTEROL INHL Inhale into the 0 09/28 lungs as needed. polyethylene glycol Take 17 g by mouth 0 12/04/2014 (MIRALAX) 17 gram packet every other day. documented as of this encounter Procedure Notes Declan Pitts MD - 07/15/2014 10:21 AM EDTAssociated Order(s): PULMONARY FUNCTION TEST Forced vital capacity is normal. FEV1 is normal. The ratio is normal. Total lung capacity is normal.Diffusing capacity is normal. Normal spirometry, lung volumes and diffusing capacity. Of note, certain lung volumes including functional residual capacity and residual volume are decreased consistent with . documented in this encounter Plan of Treatment Not on filedocumented as of this encounter Procedures Procedure Name Priority Date/Time Associated Diagnosis Comme nts PULMONARY FUNCTION Routine 07/15/2014 10:22 AM Unspecified Re sults for this TEST EDT high-risk procedur e are in the results section. documented in this encounter Results Pulmonary Function Testing (07/15/2014 10:22 AM EDT) Narrative Declan Pitts MD - 07/15/2014 10:22 A M EDT Declan Pitts MD ? 07/15/2014 10:22 AM Forced vital capacity is normal. FEV1 is normal. The ratio is normal. Total lung capacity is normal. D iffusing capacity is normal. Normal spirometry, lung volumes and diff using capacity. Of note, certain lung volumes including functional residual capacity and residual volume are decreas ed consistent with . Katerina Doyle MD PFT ORDERABLES documented in this encounter Visit Diagnoses Diagnosis Unspecified high-risk documented in this encounter Care Teams Hha Relationship Specialty Start Date End Date Mere Gtz APRN PCP - General 04/10/13 04/02/16 documented as of this encounter
--- OUTSIDE RECORDS SUMMARY | 2021-10-20 08:00 | XMS_ITS | Encounter Summary ---
:1985 Author Organization [facility] [place] [address] Care Team Providers Name Role Phone UlissesMere APRN Primary Care Provider Reason for Visit Reason Comments Ultrasound Encounter Details Date Type Department Care Team Description 07/13/2014 Office Visit Obstetrics and Sherly Reno Supervision o f [facility] Gynecology at [facility] MD Candi risk in [facility] sec on[address] [place], [place] OBSTETRICS & [phone] GYNECOLOGY [phone] [place], [place] [address] Social History Tobacco Use Types [...] Sign Reading Time Taken Comments Blood Pressure 100/64 07/13/2014 8:32 AM EDT Pulse - - Temperature - - Respiratory Rate - - Oxygen Saturation - - Inhaled Oxygen Concentration - - Weight 72.1 kg (159 lb) 07/13/2014 8:32 AM EDT Height - - Body Mass Index 23.48 06/19/2014 10:53 AM EDT documented in this encounter Progress Notes Sherly Reno MD - 07/15/2014 1:31 PM EDT Return today for morphology ultrasound and to establish care here at [facility]. Seen previously for consultation by Dr. Katerina Doyle. Obstetric/gynecologic, medical, surgical, family and social history discussed. The group practice, resident and medical student involvement, and plan of care were reviewed with the patient, and all questions were answered. Normal morphology today. Reports feeling well. No problems with methadone program. Some movement. No leaking, bleeding, contractions. RTC in 4 weeks for routine visit. Sherly Reno MD documented in this encounter Plan of Treatment Not on filedocumented as of this encounter Procedures Procedure Name Priority Date/Time Associated Diagnosis Comme nts MATERNAL QUAD Routine 07/13/2014 10:11 AM Supervision of high Results for this SCREEN EDT risk in procedure are in second trimester the results section. documented in this encounter Results US OB follow up evaluation (08/12/2014 8:37 AM EDT) Anatomical Region Laterality Modality Pelvis, Abdomen Ultrasound Specimen (Source) Anatomical Collection Method Collection Time Re ceived Time Location / / Volume Laterality 08/12/2014 8:37 AM EDT Narrative 08/12/2014 10:44 AM EDT OBSTETRICS REPORT ?(Signed Final 08/12/2014 10:43 ? am) Patient Info ID #: ? [id number] ?: ??[birth year] (29 yrs) Name: ? SHIRLENE KOVACS ?Visit Date: 08/12/2014 08:32 am Performed By Performed By: ?Zeenat Vargas RDMS Attending: ? Sherly Reno MD ??James winkler Referred By: ? PRIYANKA FLORES CN Service(s) Provided ??UOBFOL - Efw - Growth - [place] - [phone] ? [id number] Indications ??complete anatomy survey; E - Coordina lauro with ??gestational age or more than one week Evaluation Num Of Fetuses: ? 1 Heart ? 141 Rate(bpm): Cardiac Activity: ?? Observed, normal r hythm Presentation: ? Cephalic Placenta: ? Anterior P. Cord Insertion: ??Within Normal Limi ts Amniotic Fluid CHRISTIE FV: ?Appropriate for gestati onal age -------- Biometry -------- BPD: ?57.8 ??mm ?G. Age: ?? 23w 5d OFD: ?73.8 ??mm HC: ?210.5 ??mm ?G. Age: ?? 23w 1d AC: ?190.0 ??mm ?G. Age: ?? 23w 5d FL: ? 41.3 ??mm ?G. Age: ?? 23w 3d HUM: ?37.6 ??mm ?G. Age: ?? 23w 1d CER: ?24.6 ??mm ?G. Age: ?? 22w 4d NB: ?6.3 ??mm LV: ?4.4 ??mm CM: ?3.7 ??mm CI: ?78.3 ??% ? 70 - 86 FL/HC: ? 19.6 ??% ? 18.7 - 20.9 HC/AC: ? 1.11 ?1.05 - 1.21 FL/BPD: ?71.5 ??% ? 71 - 87 FL/AC: ? 21.7 ??% ? 20 - 24 Est. FW: ? 606 ?? gm ? 1 lb 5 o z Gestational Age Clinical ASHLIE: ??23w 4d ?ASHLIE: ?? 12/05/14 U/S Today: ? 23w 4d ?ASHLIE: ?? 12/05/14 Best: ?23w 4d ?? Det. By: ??Clinical ASHLIE ? ASHLIE: ?? 12/05/14 ------- Anatomy ------- Cranium: ?Visualized Cavum: ?Visualized Ventricles: ? Within Normal L imits Choroid Plexus: ? Visualized Cerebellum: ? Visualized Posterior Fossa: ?Visualized Nuchal Fold: ?Not evaluated a t this gestational age Face: ? Nose/ Lips s een - WNL Heart: ?4-chamber vi ew appears normal RVOT: ? Visualized LVOT: ? Visualized Aortic Arch: ?Visualized Diaphragm: ?Visualized Stomach: ?Visualized Abdomen: ?Visualized Abdominal Wall: ? Cord Insertion - WNL Cord Vessels: ? 3-vessels- WNL Kidneys: ?Visualized Bladder: ?Visualized Spine: ?Limited view s Upper ? Limited view s Extremities: Lower ? Limited view s Extremities: Other: ??Nasal Bone: Present Doppler - Uterine Artery Right S/D Ratio: ? RI: ?PI: ?%Tile Left S/D Ratio: ?RI: ?PI: ?%Tile Cervix Uterus Adnexa Left Ovary Not visualized Right Ovary Not visualized Impression 2nd Trimester Summary Single intrauterine with a ge stational age of 23w 4d based on clinical ASHLIE. Composite age based on the current ultr asound alone is 23w 4d. Current growth parameters are consisten t indicating normal growth. Amniotic fluid volume is appropriate fo r gestational age. Anatomical survey is limited due to inc omplete morphology. ??No structural abnormaliti es visualized. I ??viewed the images and agree with reza issa interpretation. ?E R Carlyn saenz MD Electronically Signed Final Report ?? 10:43 am Procedure Note Sherly Reno MD - 08/12/2014For matting of this note might be different from the original. OBSTETRICS REPORT (Signed Final 015 10:43 am) Patient Info ID #: [id number] : [birth year] (29 y rs) Name: SHIRLENE KOVACS Visit Date: 08/12 08:32 am Performed By Performed By: Zeenat Vargas RDMS Attending: Sherly Reno MD Referred By: PRIYANKA FLORES [facility] Service(s) Provided UOBFOL - w - Growth - [place] - [phone] Indications complete anatomy survey; E - Coordinate s with gestational age or more than one week Evaluation Num Of Fetuses: 1 Heart 141 Rate(bpm): Cardiac Activity: Observed, normal rhyt hm Presentation: Cephalic Placenta: Anterior P. Cord Insertion: Within Normal Limits Amniotic Fluid CHRISTIE FV: Appropriate for gestational age -------- Biometry -------- BPD: 57.8 mm G. Age: 23w 5d OFD: 73.8 mm HC: 210.5 mm G. Age: 23w 1d AC: 190.0 mm G. Age: 23w 5d FL: 41.3 mm G. Age: 23w 3d HUM: 37.6 mm G. Age: 23w 1d CER: 24.6 mm G. Age: 22w 4d NB: 6.3 mm LV: 4.4 mm CM: 3.7 mm CI: 78.3 % 70 - 86 FL/HC: 19.6 % 18.7 - 20.9 HC/AC: 1.11 1.05 - 1.21 FL/BPD: 71.5 % 71 - 87 FL/AC: 21.7 % 20 - 24 Est. FW: 606 gm 1 lb 5 oz Gestational Age Clinical ASHLIE: 23w 4d ASHLIE: 12/05/14 U/S Today: w 4d ASHLIE: 12/05/14 Best: 23w 4d Det. By: Clinical ASHLIE ASHLIE: 12/05/14 ------- Anatomy ------- Cranium: Visualized Cavum: Visualized Ventricles: Within Normal Limits Choroid Plexus: Visualized Cerebellum: Visualized Posterior Fossa: Visualized Nuchal Fold: Not evaluated at this gest ational age Face: Nose/ Lips seen - WNL Heart: 4-chamber view appears normal RVOT: Visualized LVOT: Visualized Aortic Arch: Visualized Diaphragm: Visualized Stomach: Visualized Abdomen: Visualized Abdominal Wall: Cord Insertion - WN Cord Vessels: 3-vessels- WN Kidneys: Visualized Bladder: Visualized Spine: Limited views Upper Limited views Extremities: Lower Limited views Extremities: Other: Nasal Bone: Present Doppler - Uterine Artery Right S/D Ratio: RI: PI: %Tile Left S/D Ratio: RI: PI: %Tile Cervix Uterus Adnexa Left Ovary Not visualized Right Ovary Not visualized Impression 2nd Trimester Summary Single intrauterine with a ge stational age of 23w 4d based on clinical ASHLIE. Composite age based on the current ultr asound alone is 23w 4d. Current growth parameters are consisten t indicating normal growth. Amniotic fluid volume is appropriate fo r gestational age. Anatomical survey is limited due to inc omplete morphology. No structural abnormalities visualized. I viewed the images and agree with the above interpretation. Sherly Reno MD Electronically Signed Final Report 08/12 10:43 am E Candi Reno MD IMG US OB ORDERABLES Maternal Quad Screen (07/13/2014 10:11 AM EDT) [facility] gist Method Time Signature AFP Profile Screen [facility] Four Negative MILLENNIUM Comment: Please see scanned report in Chart Revie w under the Non-[facility] Laboratory Heading. Test performed by [facility], [address], [place] [address] Specimen Anatomical Collection Method Collection Time Receive d Time (Source) Location / / Volume Laterality Blood specimen 07/13/2014 10:11 5 (specimen) AM EDT 11:54 AM EDT Narrative This result has an attachment that is no t available. Resulting Agency Comment Spec In Lab E Candi Reno MD CHEMISTRY ORDERABLES Performing Organization Address City/State/ZIP Code Phon e Number [place] [phone] CERNER MILLENNIUM documented in this encounter Visit Diagnoses Diagnosis Supervision of high risk in se cond trimester Unspecified high-risk Supervision of high risk in se cond trimester Unspecified high-risk documented in this encounter Care Teams Diagnostic Technician Relationship Specialty Start Date End Date Mere Gtz APRN PCP - General 04/10/13 04/02/16 documented as of this encounter
--- OUTSIDE RECORDS SUMMARY | 2021-10-20 08:00 | XMS_ITS | Encounter Summary ---
:1985 Author Organization [facility] [place] [address] Care Team Providers Name Role Phone Janet Alonso APRN Primary Care Provider Reason for Visit Reason Comments Follow-up Encounter Details Date Type Department Care Team Description 09/26/2012 Follow-Up Gastroenterology at [facility] Briseyda Glynn, Chronic hepatitis C [facility] Celia gutierrez APRN (Primary Dx) [place] [address] [place] [address] CENTER GASTROENTEROLOGY DEPT. [place], [place] [address] Social History Tobacco Use Types [...] Sign Reading Time Taken Comments Blood Pressure 114/70 09/26/2012 11:04 AM EDT Pulse 72 09/26/2012 11:04 AM EDT Temperature - - Respiratory Rate - - Oxygen Saturation - - Inhaled Oxygen Concentration - - Weight 68.9 kg (152 lb) 09/26/2012 11:04 AM EDT Height 172.7 cm (5' 8) 09/26/2012 11:04 AM EDT Body Mass Index 23.11 09/26/2012 11:04 AM EDT documented in this encounter Progress Notes Briseyda Glynn APRN - 09/26/2012 11:26 AM EDT Subjective: Patient ID: Shirlene Parks is a 27 y.o. female. GI PROBLEM LIST: 1. Hepatitis C genotype 1a, CT (IL28B) Treatment naive Needs hepatitis A and B vaccine 2. Polysubstance abuse Clean from drugs since early june 2012 Attending meetings, once a week Seeing a psychiatrist every three weeks Last alcohol use was July 2012 Continues to work, not happy with her job She returns today and is generally doing well, she remains clean and sober. She is accompanied by her mother and girlfriend. Her girlfriend has not been tested yet despite a history of sharing needles.She has an appt to get tested. Shirlene does complain of some fatigue and wonders if this is related to her HCV. Results for SHIRLENE PARKS ( ) as of 2012 10:53 Ref. Range 06/04/2012 11:57 Total Protein Latest Range: 6.4-8.3 gm/dL 7.6 Albumin Latest Range: 3.2-5.2 gm/dL 4.6 Total Bilirubin Latest Range: 0.2-1.3 mg/dL 0.5 Bili, Direct Latest Range: 0.0-0.3 mg/dL 0.1 Alk Phos Latest Range: 40-104 unit/L 69 AST Latest Range: 0-30 unit/L 67 (H) ALT Latest Range: 0-30 unit/L 122 (H) Ferritin Latest Range: 15-150 ng/mL 37 EDUARDO Latest Range: Neg Neg Sm Muscle Ab Latest Range: Negative Negative TTG IgA Ab Latest Range: <=3.9 u/ml <4.0 TSH Latest Range: 0.27-4.20 mcIU/mL 5.53 (H) HCV Viral Load No range found [id number] HCV QUANT No range found Rpt Hepatitis A IgM Latest Range: Negative Negative HepB Surface Ab No range found Negative HepB Surface Ag Latest Range: Negative Negative Hep B Core Ab Latest Range: Negative Negative Hepatitis C Ab Latest Range: Negative Positive (A) HCV GENOTYPE No range found Rpt IL28B Polymorphism Genotyping No range found IL28B ([id number]... Review of Systems Constitutional: Positive for fatigue. Respiratory: Negative for shortness of breath. Cardiovascular: Negative for chest pain. Gastrointestinal: Negative for abdominal pain. Objective: Physical Exam Constitutional: She is oriented to person, place, and time. She appears well- developed and well-nourished. HENT: Head: Normocephalic and atraumatic. Eyes: No scleral icterus. Neck: No thyromegaly present. Neurological: She is alert and oriented to person, place, and time. Skin: Skin is warm and dry. Psychiatric: She has a normal mood and affect. Her behavior is normal. Assessment and Plan: 1. Hepatitis C, gentoype 1a, CT, she is naive to treatment. We had a long discussion about the newermedications thought to be available at the end of the year. I have suggested that we wait for these medications as they will likely shorten the treatment course and offer a less noxious treatment regimen. 2. Substance abuse, encouraged ongoing sobriety and staying clean from substances. 3. Health Maintenance, she should consider starting the Hepatitis A and B vaccine series with her PCP. Will plan to see her back in the new year for consideration of treatment if she remains clean and sober. documented in this encounter Plan of Treatment Not on filedocumented as of this encounter Visit Diagnoses Diagnosis Chronic hepatitis C - Primary Chronic hepatitis C without mention of h epatic coma documented in this encounter Care Teams Quality Control Tech Raw Materials Relationship Specialty Start Date End Date Janet Alonso APRN PCP - General 06/04/12 04/09/13 documented as of this encounter
--- OUTSIDE RECORDS SUMMARY | 2021-10-20 08:00 | XMS_ITS | Encounter Summary ---
:1985 Author Organization [facility] [place] [address] Care Team Providers Name Role Phone Mere Gtz ISHAAN Primary Care Provider Encounter Details Date Type Department Care Team Description 06/30/2014 Orders Only Orthopaedics at [facility] Adriel Deal MD [facility] matt [facility] [place] [address] ORTHOPAEDIC SURGERY [phone] [place] [phone] (Wo rk) Social History Tobacco Use Types [...] Associated Diagnosis Comme nts FILM LIBRARY Routine 06/30/2014 9:15 AM Results f or this STORAGE ONLY DX EDT procedure ar e in HAND the results section. documented in this encounter Results Film Library- Storage only DX Hand (06/30/2014 9:15 AM EDT) Anatomical Region Laterality Modality Other Specimen (Source) Anatomical Collection Method Collection Time Re ceived Time Location / / Volume Laterality 06/30/2014 9:15 AM EDT Narrative 11/02/2014 6:37 PM EDT This is a Non-reportable exam Procedure Note PABLITO, UNSIGNED REPORT - 11/02/2014Formatt ing of this note might be different from the original. This is a Non-reportable exam Adriel Deal MD IMG FILM LIBRARY ORDERABLES documented in this encounter Visit Diagnoses Not on filedocumented in this encounter Care Teams Firefighter Relationship Specialty Start Date End Date Mere Gtz APRN PCP - General 04/10/13 04/02/16 documented as of this encounter
--- OUTSIDE RECORDS SUMMARY | 2021-10-20 08:00 | XMS_ITS | Encounter Summary ---
:1985 [place] [address] Care Team Providers Name Role Phone Mere Gtz ISHAAN Primary Care Provider Encounter Details Date Type Department Care Team Description 09/09/2014 Orders Only Obstetrics and [place]necology [place] [address] Social History Tobacco Use Types Packs/Day [...] on filedocumented as of this encounter Results Gestational Diabetes Screen (09/09/2014 10:03 AM EDT) athologist Signature Gluc Gest DM 128 mg/dL [facility] Specimen Anatomical Collection Method Collection Time Receive d Time (Source) Location / / Volume Laterality Blood specimen 09/09/2014 10:03 5 (specimen) AM EDT 10:06 AM EDT Resulting Agency Comment Spec In Lab E Candi Reno MD CHEMISTRY ORDERABLES Performing Organization Address City/State/[place] [address] [facility] documented in this encounter Visit Diagnoses Diagnosis state, incidental documented in this encounter Care Teams Land Measurer Relationship Specialty Start Date End Date Mere Gtz APRN PCP - General 04/10/13 04/02/16 documented as of this encounter
--- OUTSIDE RECORDS SUMMARY | 2021-10-20 08:00 | XMS_ITS | Encounter Summary ---
:1985 Author Organization [facility] [place] [place] [address] Care Team Providers Name Role Phone Janet Alonso APRN Primary Care Provider Reason for Visit Reason Onset Date Comments Medication Refill 06/17/2012 Encounter Details Date Type Department Care Team Description 06/17/2012 Refill Endocrinology at [facility] Magdaleno Mcgee Hypothyroidism (Primary [facility] Celia gutierrez III, MD Dx) [place] [address] [facility] [phone] DR ENDOCRINOLOGY DEPT. [place], [place] [address] Social History Tobacco Use Types [...] as of this encounter Visit Diagnoses Diagnosis Hypothyroidism - Primary Unspecified hypothyroidism documented in this encounter Care Teams Oil Dispatcher Relationship Specialty Start Date End Date Janet Alonso APRN PCP - General 06/04/12 04/09/13 documented as of this encounter
--- OUTSIDE RECORDS SUMMARY | 2021-10-20 08:00 | XMS_ITS | Encounter Summary ---
:1985 Author Organization [facility] [place] [address] Care Team Providers Name Role Phone Mere Gtz ISHAAN Primary Care Provider Encounter Details Date Type Department Care Team Description 08/11/2014 Telephone Obstetrics and Gynecology [place] [address] Social History Tobacco Use Types Packs/Day Years [...] Telephone Encounter - Victorina Merchant RN - 08/11/2014 12:39 PM EDT CHRISTEN Dubon from [facility]. She administered the [place] Depression Screen to Shirlene, and Shirlene scored 16. She states that she has particularly felt scared and anxious for no good reason. Shirlene also is involved with a substance use counselor in her area. She requests the names of counselors in her area, which Ling is prepared to share with her. Will share this information with MANDI Malone who appears to have a relationship with Shirlene. documented in this encounter Plan of Treatment Not on filedocumented as of this encounter Visit Diagnoses Not on filedocumented in this encounter Care Teams Senior Business Manager Relationship Specialty Start Date End Date Mere Gtz APRN PCP - General 04/10/13 04/02/16 documented as of this encounter
--- OUTSIDE RECORDS SUMMARY | 2021-10-20 08:00 | XMS_ITS | Encounter Summary ---
:1985 Author Organization [facility] [place] [address] Care Team Providers Name Role Phone Mere Gtz APRN Primary Care Provider Reason for Visit Reason Comments Follow-up Encounter Details Date Type Department Care Team Description 05/27/2014 Follow-Up Gastroenterology at [facility] Briseyda Glynn, Chronic hepatitis C [facility] Celia gutierrez [place] [address] [facility] [phone] CENTER GASTROENTEROLOGY DEPT. [place], [place] [address] Social History Tobacco Use Types [...] Sign Reading Time Taken Comments Blood Pressure 98/55 05/27/2014 11:14 AM EDT Pulse 88 05/27/2014 11:14 AM EDT Temperature - - Respiratory Rate - - Oxygen Saturation - - Inhaled Oxygen Concentration - - Weight 69.7 kg (153 lb 11.2 oz) 05/27/2014 11:14 AM EDT Height 172.7 cm (5' 8) 05/27/2014 11:14 AM EDT Body Mass Index 23.37 05/27/2014 11:14 AM EDT documented in this encounter Progress Notes Briseyda Glynn APRN - 05/27/2014 11:20 AM EDT Subjective: Patient ID: Shirlene Kovacs is a 28 y.o. female. GI PROBLEM LIST: 1. Hepatitis C genotype 1a, CT (IL28B) Treatment naive Needs hepatitis A and B vaccine 2. Polysubstance abuse Clean from drugs since early june 2012 Relapse 01/2013 Attending meetings, once a week Seeing a psychiatrist every three weeks Continues to workdays. She returns today and is 12 weeks . She is feeling well overall and is excited about this . Review of Systems Constitutional: Positive for fatigue. Respiratory: Negative for shortness of breath. Cardiovascular: Negative for chest pain. Gastrointestinal: Negative for abdominal pain. Objective: Physical Exam Constitutional: She appears well-developed and well-nourished. HENT: Head: Normocephalic and atraumatic. Eyes: No scleral icterus. Cardiovascular: Normal rate. Pulmonary/Chest: Effort normal. Abdominal: Soft. She exhibits no ascites and no mass. There is no hepatosplenomegaly. There is no tenderness. Assessment and Plan: Ms. Kovacs is a 28 year old female with hepatitis C, genotype 1a now 12 weeks . 1. Hepatitis C, genotype 1a, CT, she is naive to treatment. We had a long discussion about the newermedications and we will delay treatment considerations until after she has delivered the baby and finished breast feeding. We discussed the vertical Transmission rate of about 5%. Method of delivery does not seem to change transmission risk, therefore there is no recommendation for based on Hepatitis status alone. Breast feeding is not contra indicated, unless the nipples are cracked and bleeding. 2. Substance abuse, encouraged ongoing sobriety and staying clean from substances. She will follow up after she has finished breast feeding for treatment consideration. documented in this encounter Plan of Treatment Not on filedocumented as of this encounter Visit Diagnoses Diagnosis Chronic hepatitis C without hepatic coma documented in this encounter Care Teams Slab Installer Relationship Specialty Start Date End Date Mere Gtz APRN PCP - General 04/10/13 04/02/16 documented as of this encounter
--- OUTSIDE RECORDS SUMMARY | 2021-10-20 08:00 | XMS_ITS | Encounter Summary ---
:1985 Author Organization [facility] [place] [address] Care Team Providers Name Role Phone Mere Gtz APRN Primary Care Provider Encounter Details Date Type Department Care Team Description 08/13/2014 Orders Only Obstetrics and Pschirrer, E Supervision o f high risk in second trimester; Gynecology at [facility] MD Candi Hypothyroidism due to acquired atrophy o f thyroid [facility] [address] [place], [place] OBSTETRICS & [phone] GYNECOLOGY [phone] [place], [place] [address] Social History Tobacco Use Types [...] thyroid documented in this encounter Care Teams Top Executive Relationship Specialty Start Date End Date Mere Gtz APRN PCP - General 04/10/13 04/02/16 documented as of this encounter
--- OUTSIDE RECORDS SUMMARY | 2021-10-20 08:00 | XMS_ITS | Encounter Summary ---
:1985 Author Organization [facility] [place] [address] Care Team Providers Name Role Phone Mere Gtz APRN Primary Care Provider Reason for Visit Reason Comments Other Encounter Details Date Type Department Care Team Description 06/30/2014 Telephone Obstetrics and Gynecology [place] [address] Social History Tobacco Use Types Packs/Day Years [...] Telephone Encounter - Victorina Merchant RN - 06/30/2014 10:49 AM EDT Shirlene calls because she had surgery on her finger in December. She had screw placement. She recently had significant pain in her finger, and went to the ED. In the ED she was told that the screw that was placed is out of alignment, likely due to infection. She was told that it is likely she will needsurgery to fix this, and was started on Keflex. She wants to make sure the Keflex is safe for , and she is wondering if it is safe for her to have surgery. We discussed that she should follow up with her orthopedic surgeon, Dr. Henley, [facility] (she is currently in his office waiting arnold appointment). We discussed that sometimes it is necessary to have surgery in , and that precautions can be taken. I have encouraged her to speak with her surgeon about her , as well as the necessity, risks, and benefits of surgery. documented in this encounter Plan of Treatment Not on filedocumented as of this encounter Visit Diagnoses Not on filedocumented in this encounter Care Teams Timber Management Assistant Relationship Specialty Start Date End Date Mere Gtz APRN PCP - General 04/10/13 04/02/16 documented as of this encounter
--- OUTSIDE RECORDS SUMMARY | 2021-10-20 08:00 | XMS_ITS | Encounter Summary ---
:1985 Author Organization [facility] Address [address] [place] [address] Care Team Providers Name Role Phone Mere Gtz APRN Primary Care Provider Reason for Referral Psychiatric (Routine) - Closed Specialty Diagnoses / Procedures Referred By Contact Refer red To Contact Psychiatry Diagnoses Unspecified high-risk Katerina Lima MD Akerman, Sarah C, MD [facility] OBSTETRICS & GYNECOL [place]GY [place] [address] Fax: Referral ID Status Reason Start Date Expiration Date Visits V isits Requested Authorized [id number] Closed Assume 06/19/2014 06/19/2015 3 3 Subset of Care Reason for Visit Reason Comments Advice Only Encounter Details Date Type Department Care Team Description 06/19/2014 Office Visit Obstetrics and Katerina Lima Unspecif ied high-risk ; Gynecology at [facility] MD Elizabeth Drug abuse; [facility] H/O suicide attempt [address] [place] OBSTETRICS & [id number] GYNECOLOGY [phone] [place] [id number] (Wo rk) Social History Tobacco Use Types [...] Sign Reading Time Taken Comments Blood Pressure 116/72 06/19/2014 10:53 AM EDT Pulse - - Temperature - - Respiratory Rate - - Oxygen Saturation - - Inhaled Oxygen Concentration - - Weight 70.4 kg (155 lb 1.6 oz) 06/19/2014 10:53 AM EDT Height 175.3 cm (5' 9) 06/19/2014 10:53 AM EDT Body Mass Index 22.9 06/19/2014 10:53 AM EDT documented in this encounter Progress Notes Katerina Lima MD - 06/26/2014 10:36 AM EDT Diagnosis/Maternal Medicine Consult Note Shirlene Kovacs is a 29 y.o. year old female who is at 16 6/7 weeks gestation. She is seen in consultation at the request of Lacy Shannon CNM for evaluation of hepatitis c, maternal history of Hodgkins disease, and opioid dependence. She was seen today for maternal- medicine consultation. She c/o of episodes of SOB and requests a refill on her albuteral inhaler. No recent PFTS or echocardiograms have been performed. Review of Systems Constitutional:feels well Movement: none Contractions: none Leaking: None Bleeding: None Patient Active Problem List Diagnosis Date Noted ??? Asthma 06/26/2014 ??? Abdominal pain 08/02/2011 ??? Fainting 08/02/2011 ??? Polysubstance abuse 04/29/2011 ??? Radiation-induced hypothyroidism 07/04/2010 ??? Smoking 07/04/2010 ??? Hodgkin's disease in remission 05/05/2010 Past Medical History Diagnosis Date ??? Hodgkin lymphoma Completed therapy 07/14/2002 ??? Irradiation-induced hypothyroidism ??? Depression ??? Reflux ??? Drug abuse opioids, last IV heroin 02/2014 in [facility] Methadone program ??? Smoking ??? Irritable bowel ??? Hepatitis C ??? Anxiety Past Surgical History Procedure Laterality Date ??? Colonoscopy, diagnostic 08/20/2013 COLONOSCOPY, DIAGNOSTIC performed by Ugo Reed MD at [facility] ENDOSCOPY ??? Upper gi endoscopy, diagnostic 08/20/2013 EGD, UPPER GI ENDOSCOPY performed by Ugo Reed MD at [facility] ENDOSCOPY ??? Endoscopic us exam, esoph 08/20/2013 UPPER EUS- ENDOSCOPIC ULTRASOUND performed by Ugo Reed MD at [facility] ENDOSCOPY ??? Colonoscopy, biopsy 08/20/2013 COLONOSCOPY FLEXIBLE, WITH BX performed by Ugo Reed MD at [facility] ENDOSCOPY ??? Colonoscopy, remv lesn, snare 08/20/2013 COLONOSCOPY, POLYPECTOMY, REMOVAL LESION BY SNARE performed by Ugo Reed MD at [facility] ENDOSCOPY ??? Tunneled venous catheter placement ??? Finger fracture surgery ??? Skin biopsy head/neck Family History Problem Relation Age of Onset ??? Cancer Hodgkin lymphoma in maternal cousin Social History Occupational History ??? unemployed Social History Main Topics ??? Smoking status: Current Every Day Smoker -- 0.25 packs/day ??? Smokeless tobacco: Not on file Comment: Shirlene says that she has tried and would like to try again. ??? Alcohol Use: Yes ??? Drug Use: Yes Special: Cocaine, Injected Drugs, Narcotics, Opioids (heroin, pills) Comment: In the past ??? Sexual Activity: Partners: Female, Male OB History No data available Current Outpatient Prescriptions Medication Sig Dispense Refill ??? methadone (DOLOPHINE) 5 mg Tablet Take 6 mg by mouth every 8 hours. ??? Uewjemcr-Ew-Wim-Fe-FA Tablet Take by mouth. ??? triamcinolone (KENALOG) 0.1 % cream Apply topically 2 times daily as needed. ??? levothyroxine (SYNTHROID) 125 mcg tablet Take 1 tablet by mouth daily. (Patient taking differently: Take 75 mcg by mouth daily.) 90 tablet 6 ??? ALBUTEROL INHL Inhale into the lungs as needed. ??? lansoprazole (PREVACID) 15 mg capsule Take 15 mg by mouth as needed. ??? polyethylene glycol (MIRALAX) 17 gram packet Take 17 g by mouth every other day. ??? albuterol (PROVENTIL HFA;VENTOLIN HFA;PROAIR) 90 mcg/actuation HFA Aerosol Inhaler Inhale 2 puffs into the lungs every 4 hours as needed for Wheezing. Use with spacer 1 Inhaler 1 No current facility-administered medications for this visit. Allergies Allergen Reactions ??? Cymbalta [Duloxetine] ??? Duloxetine Hcl ??? Laxative X-Lax ??? Varenicline Tartrate Nausea/Vomiting Physical Exam BP 116/72 Ht 175.3 cm (5' 9) Wt 70.353 kg (155 lb 1.6 oz) BMI 22.89 kg/m2 General: alert, well appearing, in no apparent distress HEENT: normocephalic, atraumatic Abdomen: Soft, nontender Ext no edema Neurologic:alert, oriented, normal speech, no focal findings or movement disorder noted Psychiatric: Affect is Appropriate. Uterus S=D, FHR present Assessment and Recommendations: 29 y.o. . female at 16 6/7 weeks gestation, referred for counseling regarding hepatitis c, maternal history of Hodgkins disease, and opioid dependence. I spent 40 minutes in face to face time withthe patient of which 100% was in direct counseling, and a total of 30 minutes in patient care reviewi ng records and discussing her with other consultants. We reviewed her history of Hepatitis C. She has been seen by gastroenterology with plans for therapyin the future. The risk of vertical hepatitis C transmission is ~ 5% regardless of delivery route orbreastfeeding. is not advised with cracked or bleeding nipples. Procedures such as amni ocentesis, scalp electrodes, and episiotomy should be avoided if possible to reduce the risk of blood exposure of the fetus/. Avoidance of sharing needles, razors and toothbrushes should be practiced with other individuals. Hepatitis C may be sexually transmitted to others. We reviewed her history of Hodgkins disease. She has had radiation to mediastinum and chest and chemotherapy including adriamycin which is a known cardiotoxin. I recommend pulmonary function testing and maternal echocardiogram. She reports having a recent TSH locally but I could not obtain this result. A TSH here was 2.65 mcIU/ml. I recommend increasing her levothyroxine to 100mcg QD and rechecking TSH in ~4 weeks. She is currently enrolled in [facility] and attends NA and AA meetings locally. Her last IVDU was in 02/2014. I referred her to Addiction Treatment Program for group sessions and had our counselor meet with her today. She reports unsupportive family members who reportedly state that addicts shouldn't be allowed to have babies. She feels isolated in her community. She expressed desire to wean during and I explained that we typically do not recommend this as there is a high rate of relapse and the reprocussion of relapse such as infectious disease, withdrawal and legal issues. Methadone has been used for decades and is the treatment of choice for opioid-dependent women. More is known about the effect of methadone on the mother and baby than buprenorphine.A stable replacement dose of narcotic reduces fluctuations in maternal opioid levels, which reduces stress on the fetus. Methadone use in is a safer treatment for narcotic dependence than illicit drug use. Illicitly purchased heroin is adulterated with other compounds that may be harmful to the fetus. Compliance with a methadone or buprenorphine program also reduces the risk of being in thecriminal justice system. With both buprenorphine and methadone there is a risk of abstinence syndrome. symptoms generally appear within the first two days of life so at a minimum discharge will be delayed for a few extra days, and the baby may need weeks of hospitalization if treatment is required. She should have repeat HIV testing during this . I recommend a Morphology ultrasound at 18-20 weeks and follow up with [facility]. She indicated a desire to be have care at [facility] as this is where she received her cancer care. I appreciate the opportunity to be involved in this patients care, and am available if further questions should arise. Katerina Lima MD 06/26/2014 Cc: Lacy Shannon CN[address] [place] [address] , with copy of ultrasound report documented in this encounter Miscellaneous Notes Addendum Note - Katerina Lima MD - 06/29/2014 6:02 AM EDT Addended by: KATERINA LIMA on: 06/29/2014 06:02 AM Modules accepted: Orders documented in this encounter Plan of Treatment Scheduled Referrals Name Type Priority Associated Diagnoses Order S chedule Referral to Chemical Outpatient Referral Routine Unspecified Ordered: Dependency high-risk 06/20/19 15 documented as of this encounter Procedures Procedure Name Priority Date/Time Associated Diagnosis Comme nts TSH Routine 06/19/2014 12:48 PM Unspecified high-risk Results for this EDT procedure are i n the results section. T4, FREE Routine 06/19/2014 12:48 PM Unspecified high-risk Results for this EDT procedure are i [...] are decreas ed consistent with . Katerina Lima MD PFT ORDERABLES Echocardiogram Transthoracic(Leb) (07/01/2014 3:21 PM EDT) P athologist Signature EF 72 HEARTLAB SYSTEM Anatomical Region Laterality Modality Other Specimen (Source) Anatomical Location Collection Method / Collectio n Time Received Time / Laterality Volume 07/01/2014 Narrative 07/01/2014 4:28 PM EDT Procedure: ? Transthoracic Echocardiogram Patient: ? CHARLY Dumas ?(Age): 1985(29) Med Rec#: ?[id number] ? Sex: ?F ? Site Loc: ?[facility] ? Ht / Wt: ??175(cm)/70(kg) Pt. Loc: ? Echo Lab ? BSA: ?1.84 Study Date: ?07/01/2014 ? Pt. Type: Outpatient Tape: ? Referring: Katerina Lima Toe Stapler: Russell Baez Diagnosis:CPT Code(s): ??Echo Full (9330 7), ??Spectral Doppler (67148), Color Doppler (09130), Indication(s): ??Ventricular function, F /U Rhythm: Sinus HR ?BP ?116/72 ?? SUMMARY: 1. There is normal global left ventricul ar systolic function. The quantitative left ventricular ejection f raction by biplane Contreras's method is 72% and by 3D method 70%. Aver age global strain= -19% with no segmental wall motion abnormalities. 2. Right ventricular chamber size, wall thickness, and systolic function are within normal limits. 3. Normal chamber dimensions and valve s tructures. 4. The pericardium appears normal and th ere is no evidence of a pericardial effusion. Pulmonary artery h ypertension could not be assessed due to inadequate tricuspid reg urgitation jet. ??When compared to the prior 04/09/07 study, no significan t change. FINDINGS: Study Quality ?Adequate Left Ventricle ?The left ventricular chamber size is normal. ?Left ventricular wall thickness is normal. ?No ventricular septal defect is vi sualized. ?There is normal global left ventri cular systolic function. ?The quantitative left ventricular ejection fraction by biplane Contreras's method is 72%. ?The quantitative left ventricular ejection fraction by 3-D rendering is 70%. ?There are no left ventricular segm ental wall motion abnormalities. Left Atrium ?The left atrium is normal in size. ?No atrial septal defect is visuali zed. Right Ventricle ?Right ventricular chamber size, wa ll thickness, and systolic function are within normal limits. ?Pulmonary artery hypertension coul d not be assessed due to inadequate tricuspid regurgitation jet. Right Atrium ?The right atrium is normal in size . Aortic Valve ?The aortic valve is trileaflet. Th e leaflets are thin with normal excursion. There is no aortic stenosis o r regurgitation present. Mitral Valve ?The mitral valve leaflets appear n ormal. ?There is no evidence of mitral reg urgitation. Tricuspid Valve ?The tricuspid valve leaflets are m orphologically normal. ?There is trace tricuspid regurgita tion present. Pulmonic Valve ?The pulmonic valve appears normal. ?There is trace pulmonic regurgitat ion present. Pericardium ?The pericardium appears normal and there is no evidence of a pericardial effusion. Aorta ?The aortic root is normal in size. ?The ascending aorta is normal in s ize. Pulmonary Artery ?The main pulmonary artery is proba erwin normal in size. Venous ?There is a greater than 50% respir atory change in the inferior vena cava dimension. Misc ?Two-dimensional echo, spectral Dop pler and color Doppler performed. Wall Motion: Segment Name ?Rest ? Base-Anteroseptal ?? Normal ? Base-Anterior ? Normal ? Base-Anterolateral ??Normal ? Base-Posterolateral Normal ? Base-Inferior ? Normal ? Base-Inferoseptal ?? Normal ? Mid-Anteroseptal ?Normal ? Mid-Anterior ?Normal ? Mid-Anterolateral ?? Normal ? Mid-Posterolateral ??Normal ? Mid-Inferior ?Normal ? Mid-Inferoseptal ?Normal ? Atka-Septal ? Normal ? Atka-Anterior ? Normal ? Atka-Lateral ?Normal ? Atka-Inferior ? Normal ? Atka-Tip ?Normal ? Chambers ?Value ?Units (Range) ? LV EF Est ? 72 ? % (55 to 80) ? EF ??Bi-p Simp ? 72 ? % (55 to 80) ? 3D LVEF ? 70 ? % ? 3D end di vol ? 100 ?ml ? 3D end sys vol ?30 ? ml ? IVSd MM ? 0.8 ?cm (0.3 to 1.1) ? LVIDd MM ?4.6 ?cm (3.7 to 5.6) ? PWd MM ?0.7 ?cm (0.6 to 1.1) ? LVIDs MM ?3.2 ?cm (2.3 to 3.9) ? LVFS MM ? 30 ? % (28 to 42) ? LV mass ? 108.5 ?gm ? LA area ? 18 ? cm2 (<21) ? RA area ? 13 ? cm2 (<18) ? Ao root ? 2.3 ?cm (2.1 to 3.6) ? Asc Ao ?2.4 ?cm (2 to 3.5) ? Pr Ao Arch ?1.8 ?cm (1 to 3.4) ? Mitral Valve ?Value ?Units (Range) ? E peak ?0.88 ? m/sec ? E/A ratio ? 2.3 ?ratio ? MVDT ?257 ?msec ? E1 ?0.13 ? m/sec ? E/E1 ?6.8 ?ratio ? This report has been electronically sign ed by: _ William Alvarado MD ? 07/01/2014 16:27: 51 Images reviewed and interpretation veramanda bahena [facility] Cardiac Ultrasound Laboratory Procedure Note William Alvarado MD - 07/01/2014 Procedure: Transthoracic Echocardiogram Patient: CHARLY Dumas (Age): [birth year]) Med Rec#: [id number] Sex: F Site Loc: [facility] Ht / Wt: 175(cm)/70(kg) Pt. Loc: Echo Lab BSA: 1.84 Study Date: 07/01/2014 Pt. Type: Outpati ent Tape: Referring: Katerina Lima Toe Stapler: Russell Baez Diagnosis:CPT Code(s): Echo Full (39486) , Spectral Doppler (12946), Color Doppler (75902), Indication(s): Ventricular function, F/U Rhythm: Sinus HR BP 116/72 SUMMARY: 1. There is normal global left ventricul ar systolic function. The quantitative left ventricular ejection f raction by biplane Contreras's method is 72% and by 3D method 70%. Aver age global strain= -19% with no segmental wall motion abnormalities. 2. Right ventricular chamber size, wall thickness, and systolic function are within normal limits. 3. Normal chamber dimensions and valve s tructures. 4. The pericardium appears normal and th ere is no evidence of a pericardial effusion. Pulmonary artery h ypertension could not be assessed due to inadequate tricuspid reg urgitation jet. When compared to the prior 04/09/07 study, no significan t change. FINDINGS: Study Quality Adequate Left Ventricle The left ventricular chamber size is no rmal. Left ventricular wall thickness is norm al. No ventricular septal defect is visuali zed. There is normal global left ventricular systolic function. The quantitative left ventricular eject ion fraction by biplane Contreras's method is 72%. The quantitative left ventricular eject ion fraction by 3-D rendering is 70%. There are no left ventricular segmental wall motion abnormalities. Left Atrium The left atrium is normal in size. No atrial septal defect is visualized. Right Ventricle Right ventricular chamber size, wall th ickness, and systolic function are within normal limits. Pulmonary artery hypertension could not be assessed due to inadequate tricuspid regurgitation jet. Right Atrium The right atrium is normal in size. Aortic Valve The aortic valve is trileaflet. The jessica flets are thin with normal excursion. There is no aortic stenosis o r regurgitation present. Mitral Valve The mitral valve leaflets appear normal . There is no evidence of mitral regurgit ation. Tricuspid Valve The tricuspid valve leaflets are morpho logically normal. There is trace tricuspid regurgitation present. Pulmonic Valve The pulmonic valve appears normal. There is trace pulmonic regurgitation p resent. Pericardium The pericardium appears normal and ther e is no evidence of a pericardial effusion. Aorta The aortic root is normal in size. The ascending aorta is normal in size. Pulmonary Artery The main pulmonary artery is probably n ormal in size. Venous There is a greater than 50% respiratory change in the inferior vena cava dimension. Misc Two-dimensional echo, spectral Doppler and color Doppler performed. Wall Motion: Segment Name Rest Base-Anteroseptal Normal Base-Anterior Normal Base-Anterolateral Normal Base-Posterolateral Normal Base-Inferior Normal Base-Inferoseptal Normal Mid-Anteroseptal Normal Mid-Anterior Normal Mid-Anterolateral Normal Mid-Posterolateral Normal Mid-Inferior Normal Mid-Inferoseptal Normal Atka-Septal Normal Atka-Anterior Normal Atka-Lateral Normal Atka-Inferior Normal Atka-Tip Normal Chambers Value Units (Range) LV EF Est 72 % (55 to 80) EF Bi-p Simp 72 % (55 to 80) 3D LVEF 70 % 3D end di vol 100 ml 3D end sys vol 30 ml IVSd MM 0.8 cm (0.3 to 1.1) LVIDd MM 4.6 cm (3.7 to 5.6) PWd MM 0.7 cm (0.6 to 1.1) LVIDs MM 3.2 cm (2.3 to 3.9) LVFS MM 30 % (28 to 42) LV mass 108.5 gm LA area 18 cm2 (<21) RA area 13 cm2 (<18) Ao root 2.3 cm (2.1 to 3.6) Asc Ao 2.4 cm (2 to 3.5) Pr Ao Arch 1.8 cm (1 to 3.4) Mitral Valve Value Units (Range) E peak 0.88 m/sec E/A ratio 2.3 ratio MVDT 257 msec E1 0.13 m/sec E/E1 6.8 ratio This report has been electronically sign ed by: _ William Alvarado MD 07/01/2014 16:27:51 Images reviewed and interpretation verif ied [facility] Cardiac Ultrasound Laboratory Katerina Lima MD ECHO ORDERABLES (ABNORMAL) T4, free (06/19/2014 12:48 PM EDT) P athologist Signature Free T4 0.88 (L) 0.93 - 1.70 [facility] ng/dL [facility] Specimen Anatomical Collection Method Collection Time Receive d Time (Source) Location / / Volume Laterality Blood specimen 06/19/2014 12:48 5 (specimen) PM EDT 12:56 PM EDT Resulting Agency Comment Spec In Lab Katerina Lima MD CHEMISTRY ORDERABLES Performing Organization Address City/State/[place] [address] CERNER MILLENNIUM TSH (06/19/2014 12:48 PM EDT) P athologist Signature TSH 2.65 0.27 - 4.20 CERNER mcIU/mL [facility]UM Specimen Anatomical Collection Method Collection Time Receive d Time (Source) Location / / Volume Laterality Blood specimen 06/19/2014 12:48 5 (specimen) PM EDT 12:56 PM EDT Resulting Agency Comment Spec In Lab Katerina Lima MD CHEMISTRY ORDERABLES Performing Organization Address City/State/[place] [address] CERNER MILLENNIUM documented in this encounter Visit Diagnoses Diagnosis Unspecified high-risk Drug abuse Other, mixed, or unspecified nondependen t drug abuse, unspecified H/O suicide attempt Other specified personal history present ing hazards to health Unspecified high-risk Unspecified high-risk documented in this encounter Care Teams Elastic Yarn Twister Helper Relationship Specialty Start Date End Date Mere Gtz APRN PCP - General 04/10/13 04/02/16 documented as of this encounter
--- OUTSIDE RECORDS SUMMARY | 2021-10-20 08:00 | XMS_ITS | Encounter Summary ---
:1985 Author Organization [facility] [place] [address] Care Team Providers Name Role Phone Janet Alonso APRN Primary Care Provider Reason for Visit Reason Onset Date Comments Labs Only 06/04/2012 Encounter Details Date Type Department Care Team Description 06/04/2012 Telephone Endocrinology at [facility] C Magdaleno Corbin III, Labs Only [facility] [place] [address] [facility] [phone] [place] [address] (Wo rk) Social History Tobacco Use Types [...] this encounter Miscellaneous Notes Telephone Encounter - Magdaleno Corbin III, MD - 06/05/2012 1:24 PM EDT tsh documented in this encounter Plan of Treatment Not on filedocumented as of this encounter Visit Diagnoses Diagnosis Hypothyroid - Primary Unspecified hypothyroidism documented in this encounter Care Teams Paper Baler Relationship Specialty Start Date End Date Janet Alonso APRN PCP - General 06/04/12 04/09/13 documented as of this encounter
--- OUTSIDE RECORDS SUMMARY | 2021-10-20 08:00 | XMS_ITS | Encounter Summary ---
:1985 Author Organization [facility] [address] Care Team Providers Name Role Phone Geraldine Lea MD Primary Care Provider Reason for Visit Reason Onset Date Comments Advice Only 04/16/2012 Encounter Details Date Type Department Care Team Description 04/16/2012 Telephone Endocrinology at [facility] C Livier Luna LPN [facility] [place] [address] Social History Tobacco Use Types Packs/Day Years [...] Telephone Encounter - Livier Luna LPN - 04/16/2012 2:35 PM EDT Returning call to patient no answer left message on voice mail that Rx for Lt4 was sent to pharmacy. documented in this encounter Plan of Treatment Not on filedocumented as of this encounter Visit Diagnoses Not on filedocumented in this encounter Care Teams Loom Fixer Helper Relationship Specialty Start Date End Date Geraldine Lea MD PCP - General 10/04/11 06/03/[address] [facility] [place] [address] documented as of this encounter
--- OUTSIDE RECORDS SUMMARY | 2021-10-20 08:00 | XMS_ITS | Encounter Summary ---
:1985 Author Organization [facility] Address [address] [address] Care Team Providers Name Role Phone Mere Gtz APRN Primary Care Provider Encounter Details Date Type Department Care Team Description 07/13/2014 [place] [facility] [place] high-risk pregna ncy; [facility] Drug abus e; [place] [address] Social History Tobacco Use Types Packs/Day Years [...] with spacer Take by mouth. 0 09/28/2014 Disdbtru-Gs-Nxp-Fe-FA Tablet triamcinolone (KENALOG) Apply topically 2 0 [...] Priority Date/Time Associated Comments Diagnosis US OB DETAILED Routine 07/13/2014 9:35 AM Results for this MORPHOLOGY EDT procedure are i n the results section. documented in this encounter Results US OB Targeted Morphology (07/13/2014 9:35 AM EDT) Anatomical Region Laterality Modality Pelvis, Abdomen Ultrasound Specimen (Source) Anatomical Collection Method Collection Time Re ceived Time Location / / Volume Laterality 07/13/2014 9:35 AM EDT Narrative 07/13/2014 12:02 PM EDT OBSTETRICS REPORT ?(Signed Final 07/13/2014 12:01 ? pm) Patient Info ID #: ? [id number] ?: ??[birth year] (29 yrs) Name: ? SHIRLENE PARKS ?Visit Date: 07/13/2014 09:29 am Performed By Performed By: ?Zeenat Vargas RDMS Attending: ? Sherly Reno MD ??R ebcarlton Referred By: ? PRIYANKA FLORES CN Service(s) Provided ??[facility] - Targeted Morphology - Genetics - ? [id number] ??[id number] Indications ??MFM to read, morphology; E - Coordina lauro with ??gestational age or more than one week ??Maternal Hx of Hodgkin's Disease, Sub stance ??Abuse, Hypothyroidism, Mental Illness , Hep C Evaluation Num Of Fetuses: ? 1 Heart ? 141 Rate(bpm): Cardiac Activity: ?? Observed, normal r hythm Presentation: ? Breech Placenta: ? Anterior P. Cord Insertion: ??Within Normal Limi ts Amniotic Fluid CHRISTIE FV: ?Appropriate for gestati onal age -------- Biometry -------- BPD: ?44.2 ??mm ?G. Age: ?? 19w 3d OFD: ?57.4 ??mm HC: ?162.5 ??mm ?G. Age: ?? 19w 0d AC: ?156.7 ??mm ?G. Age: ?? 20w 6d FL: ? 29.7 ??mm ?G. Age: ?? 19w 1d HUM: ?31.8 ??mm ?G. Age: ?? 20w 4d CER: ?20.6 ??mm ?G. Age: ?? 19w 4d NFT: ? 4.3 ??mm NB: ?4.2 ??mm LV: ?5.8 ??mm CM: ?3.1 ??mm CI: ?77.0 ??% ? 70 - 86 FL/HC: ? 18.3 ??% ? 16.1 - 18.3 HC/AC: ? 1.04 ?1.09 - 1.39 FL/BPD: ?67.2 ??% FL/AC: ? 19.0 ??% ? 20 - 24 Est. FW: ? 322 ?? gm ?? 0 lb 11 oz Gestational Age Clinical ASHLIE: ??19w 2d ?ASHLIE: ?? 12/05/14 U/S Today: ? 19w 4d ?ASHLIE: ?? 12/03/14 Best: ?19w 2d ?? Det. By: ??Clinical ASHLIE ? ASHLIE: ?? 12/05/14 Targeted Anatomy Central Nervous System Calvarium: ?Within Norm al Limits Intracranial: ? Within Normal Limits Cavum: ?Visualized Lat. Ventricles: ?Within Normal Limits Cerebellum: ? Within Oly l Limits Choroid Plexus: ? Within Normal Limits Cisterna Magna: ? Within Normal Limits Spine Cervical: ? Visualized Thoracic: ? Visualized Lumbar: ? Visualized Sacral: ? Visualized Head/Neck Face: ? Limited V iews Nuchal Fold: ?Within Oly l Limits Eyes: ? Visualize d Profile: ?Visualized Thorax Four Chamber: ? Limited Views Cardiac Motion: ? Normal Rhythm R Outflow Tract: ?Visualized L Outflow Tract: ?Limited Views Cardiac Ravenna: ? Visualized 3 Vessel View: ?Visualized Diaphragm: ?Visualized Abdomen Ventral Wall: ? Visualized Stomach: ?Visualized Lt Kidney: ?Visualized Rt Kidney: ?Visualized Bladder: ?Visualized Extremities Lt Humerus: ? Visualized Rt Humerus: ? Visualized Lt Forearm: ? Visualized Rt Forearm: ? Visualized Lt Hand: ?Visualized Rt Hand: ?Visualized Lt Femur: ? Visualized Rt Femur: ? Visualized Lt Lower Leg: ? Visualized Rt Lower Leg: ? Visualized Lt Foot: ?Visualized Rt Foot: ?Visualized Other Umbilical Cord: ? 3 vessel cord Cord Insertion: ? WIthin Normal Limits Comment: ? Nasal Bone: Visualize d Doppler - Uterine Artery Right S/D Ratio: ? RI: ?PI: ?%Tile Left S/D Ratio: ?RI: ?PI: ?%Tile Cervix Uterus Adnexa Left Ovary Not visualized Right Ovary Not visualized Impression 2nd Trimester - Targeted Morphology- Travis mmary Single intrauterine with a ge stational age of 19w 2d based on clinical ASHLIE. Composite age based on the current ultr asound alone is 19w 4d. Current growth parameters are consisten t indicating normal growth. Amniotic fluid volume is appropriate fo r gestational age. Detailed anatomic evaluation was performed. Visualization of heart and face a re limited due to position. ??No structural abnormalities are noted. I ??viewed the images and agree with reza nick above interpretation. ?E James saenz MD Electronically Signed Final Report ?? 12:01 pm Procedure Note Sherly Reno MD - 07/13/2014For matting of this note might be different from the original. OBSTETRICS REPORT (Signed Final 015 12:01 pm) Patient Info ID #: [id number] : [birth year] (29 y rs) Name: SHIRLENE PARKS Visit Date: 07/13 09:29 am Performed By Performed By: Zeenat Vargas RDMS Attending: Sherly Reno MD Referred By: PRIYANKA FLORES [facility] Service(s) Provided [facility] - Targeted Morphology - Genetics - [id number] Indications MFM to read, morphology; E - Coordinate s with gestational age or more than one week Maternal Hx of Hodgkin's Disease, Subst ance Abuse, Hypothyroidism, Mental Illness, Hep C Evaluation Num Of Fetuses: 1 Heart 141 Rate(bpm): Cardiac Activity: Observed, normal rhyt hm Presentation: Breech Placenta: Anterior P. Cord Insertion: Within Normal Limits Amniotic Fluid CHRISTIE FV: Appropriate for gestational age -------- Biometry -------- BPD: 44.2 mm G. Age: 19w 3d OFD: 57.4 mm HC: 162.5 mm G. Age: 19w 0d AC: 156.7 mm G. Age: 20w 6d FL: 29.7 mm G. Age: 19w 1d HUM: 31.8 mm G. Age: 20w 4d CER: 20.6 mm G. Age: 19w 4d NFT: 4.3 mm NB: 4.2 mm LV: 5.8 mm CM: 3.1 mm CI: 77.0 % 70 - 86 FL/HC: 18.3 % 16.1 - 18.3 HC/AC: 1.04 1.09 - 1.39 FL/BPD: 67.2 % FL/AC: 19.0 % 20 - 24 Est. FW: 322 gm 0 lb 11 oz Gestational Age Clinical ASHLIE: 19w 2d ASHLIE: 10/31/15 U/S Today: 19w 4d ASHLIE: 12/03/14 Best: 19w 2d Det. By: Clinical ASHLIE ASHLIE: 12/05/14 Targeted Anatomy Central Nervous System Calvarium: Within Normal Limits Intracranial: Within Normal Limits Cavum: Visualized Lat. Ventricles: Within Normal Limits Cerebellum: Within Normal Limits Choroid Plexus: Within Normal Limits Cisterna Magna: Within Normal Limits Spine Cervical: Visualized Thoracic: Visualized Lumbar: Visualized Sacral: Visualized Head/Neck Face: Limited Views Nuchal Fold: Within Normal Limits Eyes: Visualized Profile: Visualized Thorax Four Chamber: Limited Views Cardiac Motion: Normal Rhythm R Outflow Tract: Visualized L Outflow Tract: Limited Views Cardiac Ravenna: Visualized 3 Vessel View: Visualized Diaphragm: Visualized Abdomen Ventral Wall: Visualized Stomach: Visualized Lt Kidney: Visualized Rt Kidney: Visualized Bladder: Visualized Extremities Lt Humerus: Visualized Rt Humerus: Visualized Lt Forearm: Visualized Rt Forearm: Visualized Lt Hand: Visualized Rt Hand: Visualized Lt Femur: Visualized Rt Femur: Visualized Lt Lower Leg: Visualized Rt Lower Leg: Visualized Lt Foot: Visualized Rt Foot: Visualized Other Umbilical Cord: 3 vessel cord Cord Insertion: WIthin Normal Limits Comment: Nasal Bone: Visualized Doppler - Uterine Artery Right S/D Ratio: RI: PI: %Tile Left S/D Ratio: RI: PI: %Tile Cervix Uterus Adnexa Left Ovary Not visualized Right Ovary Not visualized Impression 2nd Trimester - Targeted Morphology- Travis mmary Single intrauterine with a ge stational age of 19w 2d based on clinical ASHLIE. Composite age based on the current ultr asound alone is 19w 4d. Current growth parameters are consisten t indicating normal growth. Amniotic fluid volume is appropriate fo r gestational age. Detailed anatomic evaluation was performed. Visualization of heart and face a re limited due to position. No structural abnormalities a re noted. I viewed the images and agree with the above interpretation. Sherly Reno MD Electronically Signed Final Report 07/13 12:01 pm Katerina Doyle MD IMG US OB ORDERABLES documented in this encounter Visit Diagnoses Diagnosis Unspecified high-risk Drug abuse Other, mixed, or unspecified nondependen t drug abuse, unspecified H/O suicide attempt Other specified personal history present ing hazards to health documented in this encounter Care Teams Meteorological Equipment Repairer Relationship Specialty Start Date End Date Mere Gtz, ISHAAN PCP - General 04/10/13 04/02/16 documented as of this encounter
--- OUTSIDE RECORDS SUMMARY | 2021-10-20 08:00 | XMS_ITS | Encounter Summary ---
:1985 Author Organization [facility] [place] [address] Care Team Providers Name Role Phone Mere Gtz APRN Primary Care Provider Encounter Details Date Type Department Care Team Description 06/30/2014 Telephone Obstetrics and Gynecology at [facility] Gayle calixto MSW [facility] Celia gutierrez OBSTETRICS & [place] [address] [place] [address] [phone] (Wo rk) Social History Tobacco Use Types [...] this encounter Miscellaneous Notes Telephone Encounter - Gayle Wadsworth - 06/30/2014 4:11 PM EDT I returned Shirlene's call to me. She was upset/confused because she thought she would be having an intake into the program tomorrow but received a call from Stefanie to say that it wasn't possible and she needed to reschedule with someone other than Dr. Doty in order to get an intake into the program (presumably one of the clinicians). I let her know I would talk this over with Dr. Doty and get back to her tomorrow. documented in this encounter Plan of Treatment Not on filedocumented as of this encounter Visit Diagnoses Not on filedocumented in this encounter Care Teams Netbackup Administrator Relationship Specialty Start Date End Date eMre Gtz APRN PCP - General 04/10/13 04/02/16 documented as of this encounter
--- OUTSIDE RECORDS SUMMARY | 2021-10-20 08:00 | XMS_ITS | Encounter Summary ---
:1985 Author Organization [facility] [place] [address] Care Team Providers Name Role Phone Mere Gtz ISHAAN Primary Care Provider Encounter Details Date Type Department Care Team Description 01/06/2014 Orders Only Orthopaedics at [facility] [place] Adriel Deal MD [facility] matt [place] [address] ORTHOPAEDIC SURGERY [phone] [place] [phone] (Wo rk) Social History Tobacco Use Types [...] Associated Diagnosis Comme nts FILM LIBRARY Routine 01/06/2014 9:15 AM Results f or this STORAGE ONLY DX EST procedure ar e in HAND the results section. documented in this encounter Results Film Library- Storage only DX Hand (01/06/2014 9:15 AM EST) Anatomical Region Laterality Modality Other Specimen (Source) Anatomical Collection Method Collection Time Re ceived Time Location / / Volume Laterality 01/06/2014 9:15 AM EST Narrative 11/02/2014 6:42 PM EDT This is a Non-reportable exam Procedure Note PABLITO, UNSIGNED REPORT - 11/02/2014Formatt ing of this note might be different from the original. This is a Non-reportable exam Adriel Deal MD IM FILM LIBRARY ORDERABLES documented in this encounter Visit Diagnoses Not on filedocumented in this encounter Care Teams Plastic Duplicator Relationship Specialty Start Date End Date Mere Gtz APRN PCP - General 04/10/13 04/02/16 documented as of this encounter
--- OUTSIDE RECORDS SUMMARY | 2021-10-20 08:00 | XMS_ITS | Encounter Summary ---
:1985 Author Organization [facility] [place] [address] Care Team Providers Name Role Phone Mere Gtz ISHAAN Primary Care Provider Encounter Details Date Type Department Care Team Description 08/20/2013 Hospital Encounter Gastroenterology at [facility] Tulio Sagastume MD [facility] [address] [place] [address] [facility] Ugo Jauregui MD [facility] [address] [place] [address] [place] [address] Social History Tobacco Use Types Packs/Day [...] you need to be checked. Sunday-Sunday Clinic [phone] 8a-5p Same Day Endo [phone] 7a-8p Otherwise contact [phone] and ask to speak to the salesperson yard goods product operations associate Follow up care is a jack part [...] cannot be sent through Care Everywhere. POLYPS (GUAMANIAN)EGD (UPPER ENDOSCOPY) : POST-OP (GUAMANIAN)documented in this encounter Medications at Time of [...] Reed MD - 08/20/2013 4:44 PM EDT [facility] Operative Note Patient Name: Shirlene Kovacs : [id number] MR#: [id number] Case Date: 08/20/2013 Surgeon: Surgeon(s) and Role: [...] is documented under the Procedure section of eDH. Miscellaneous - ProviderKayli - 08/20/2013 2:32 PM EDT documented in [...] 4:45 PM 4 4:45 EDT PM EDT [facility] - 08/20/2013 4:45 PM E DT Specimen requisition ordered. ??Separate Pathology report to follow Ugo Reed MD PATHOLOGY/CYTOLOGY ORDERABLE S Performing Organization Address [facility]/ZIP Code Phon e Number [address] [facility] Specimen to Pathology (surgical or derm) (08/20/2013 4:45 PM EDT) Specimen Anatomical Collection Method Collection Time Receive d Time (Source) Location / / Volume Laterality AP Specimen 08/20/2013 4:45 PM 4 4:45 EDT PM EDT Narrative CERNER MILLENNIUM - 08/20/2013 4:45 PM E DT Specimen requisition ordered. ??Separate Pathology report to follow Ugo Reed MD PATHOLOGY/CYTOLOGY ORDERABLE S Performing Organization Address [facility] Code Phon e Number [address] [facility] Surgical Pathology Report (08/20/2013 4:44 PM EDT) [facility] gist Method Time Signature Surgical CERNER Pathology ? [facility] Report ? Provider: ?? UGO REED ?Pt. Name: ?? SHIRLENE TOBIAS ? Acc #: ?[id number] ?Pt. MRN: ?[id number] ? Col Date: ?? 4 ? /Sex: ?1985,(28 years),Female ? Rec Date: ?? 08/20/2013 ? LOC: ?4T ? SURGICAL PATHOLOGY ? ---Pathologic Diagnosis--- ? Endoscopic biopsies - ? A. Mildly active nonspecific ileitis. ? B. Tubular adenoma. ? CR-PX ? 08/21/13 ? AAS ? 08/22/13 Verified by: ? Zakiya NAPOLES, Shruthi Johnson ? Pathologist ? (Electronic Si gnature) ? [...] Organization Address City/State/[place] [address] [facility] UPPER EUS-ENDOSCOPIC ULTRASOUND (08/20/2013 3:00 PM EDT) Component Value Ref Test Analysis Performed At [facility] Range Method Time Signature UPPER [facility]OVATION ENDOSCOPIC Endoscopy ULTRASOUND _ Patient Name: Shirlene Kovacs ? Procedure Date: 08/20/2013 3:00 PM ? Date of : 1985 ? Age: 28 ? Order #: [id number] ? Procedure: ? Upper EUS Indications: ? Exclusion of chronic pancreatitis, ? Generalized abdominal pain Providers: ? Ugo Reed MD, Baron Craft ? , CHRISTEN, Joan Sanchez, Jose Angel hnician Referring : ?Mere Gtz MD, Tracia ? MD Shukri Medicines: ? Monitored Anesthesia [...] but are ? non-specific and are of uncer tain ? clinical significance in the absence ? [...] Number PROVATION COLONOSCOPY (08/20/2013 3:00 PM EDT) [facility] Method Time Signature COLONOSCOPY [facility] Endoscopy Patient Name: Shirlene Kovacs ? Procedure Date: 08/20/2013 3:00 PM ? Date of : 1985 ? Age: 28 ? Order #: [id number] ? Procedure: ? Colonoscopy Indications: ? Generalized [...] for ? surveillance. ? - F/up per Tracia O'Marce. ? Ugo Reed MD 08/20/2013 4:50 PM [...] Diagnoses Not on filedocumented in this encounter Active and Recently Administered [...] Procedure) documented in this encounter Care Teams Repairer Handtools Relationship Specialty Start Date End Date Mere Gtz APRN PCP - General 04/10/13 04/02/16 documented as of this encounter
--- OUTSIDE RECORDS SUMMARY | 2021-10-20 08:00 | XMS_ITS | Encounter Summary ---
:1985 Author Organization [facility] [place] [address] Care Team Providers Name Role Phone Janet Alonso APRN Primary Care Provider Reason for Visit Reason Comments Thyroid Problem Encounter Details Date Type Department Care Team Description 06/04/2012 Office Visit Endocrinology at [facility] C Magdaleno Corbin Hypothyroid (Primary [facility] MD [place]x) [place] [address] [phone] [place] [address] Social History Tobacco Use Types Packs/Day Years [...] Sign Reading Time Taken Comments Blood Pressure 103/62 06/04/2012 3:33 PM EDT Pulse 69 06/04/2012 3:33 PM EDT Temperature - - Respiratory Rate - - Oxygen Saturation - - Inhaled Oxygen Concentration - - Weight 67.4 kg (148 lb 9.6 oz) 06/04/2012 3:33 PM EDT Height - - Body Mass Index 22.34 06/04/2012 10:13 AM EDT documented in this encounter Progress Notes Magdaleno Corbin III, MD - 06/04/2012 3:58 PM EDT I saw Shirlene Kovacs in the Endocrinology clinic for follow-up of her thyroid status. She is on 75 mcg LT4 (which she has finally managed to take regularly x 6 weeks), and notes no symptoms referable todysthyroidism with the possible exception of fatigue. She was recently diagnosed with hepatitis C, and interferon treatment is being considered. Complete review of systems is otherwise shows that she has normal menses. Her psychosis is well-controlled on Risperdol. On examination she was a pleasant woman who appeared well with HR 80 regular and BP 138/74. There was no tremor or lid lag, and the reflexes were normal. Her tongue was normally papillated. She had no rash or edema, and the thyroid was not enlarged to palpation. There was no adenopathy. Her lungs wereclear, her skin showed normal pigment and texture, and there was no heart murmur. In summary, she is clinically euthyroid and is, as expected from her radiation- induced hypothyroidism, without goiter. We arranged to check the TSH, and discussed the idea that it would be best if she is euthyroid when treated for hepatitis. More than 19 of this 30 minute visit was spent in face to face counseling and discussing the implications of the diagnosis and potential therapeutic approaches, as outlined above. documented in this encounter Plan of Treatment Not on filedocumented as of this encounter Visit Diagnoses Diagnosis Hypothyroid - Primary Unspecified hypothyroidism documented in this encounter Care Teams Caisson Worker Relationship Specialty Start Date End Date Janet Alonso APRN PCP - General 06/04/12 04/09/13 documented as of this encounter
--- OUTSIDE RECORDS SUMMARY | 2021-10-20 08:00 | XMS_ITS | Encounter Summary ---
:1985 [place] [address] Care Team Providers Name Role Phone Mere Gtz APRN Primary Care Provider Encounter Details Date Type Department Care Team Description 08/12/2014 Hospital Encounter [facility]trasound at [facility] [place] [facility] Supervision of [facility] risk preg shane [place] [address] Social History Tobacco Use Types Packs/Day [...] with spacer Take by mouth. 0 09/28/2014 Zeddhjuz-Bo-Zxe-Fe-FA Tablet triamcinolone (KENALOG) Apply topically 2 0 [...] Name Priority Date/Time Associated Diagnosis Comme nts OB FOLLOW UP Routine 08/12/2014 8:37 AM Supervision of high Results for this EDT risk in procedure are in second [...] ? am) Patient Info ID #: ? [id number] ?: ??[birth year] (29 yrs) Name: ? SHIRLENE PARKS ?Visit Date: 08/12/2014 08:32 am Performed By Performed By: ?Zeenat Vargas RDMS Attending: ? Shadia NAPOLES, Sherly ??R cathi Referred By: ? PRIYANKA FLORES CNM Service(s) Provided ??UOBFOL - Efw - Growth - [place] - [phone] ? [id number] Indications ??complete anatomy survey; E - Coordina [...] and agree with reza nick above interpretation. ?Sherly saenz MD Electronically Signed Final Report ?? 10:43 am Procedure Note Shelry Reno MD - 08/12/2014For matting of this note might be different from the original. OBSTETRICS REPORT (Signed Final 015 10:43 am) Patient Info ID #: [id number] : [birth year] (29 y rs) Name: SHIRLENE PARKS Visit Date: 08/12 08:32 am Performed By Performed By: Zeenat Vargas RDMS Attending: Sherly Reno MD Referred By: PRIYANKA FLORES [facility] Service(s) Provided UOBFOL - Efw - Growth - [place] - [phone] Indications complete anatomy survey; E - Coordinate [...] ASHLIE: 23w 4d ASHLIE: 12/05/14 U/S Today: 23w 4d ASHLIE: 12/05/14 Best: 23w 4d Det. By: Clinical ASHLIE ASHLIE: 12/05/14 ------- Anatomy ------- Cranium: Visualized Cavum: Visualized Ventricles: Within Normal Limits Choroid Plexus: Visualized Cerebellum: Visualized Posterior Fossa: Visualized Nuchal Fold: Not evaluated at this gest ational age Face: Nose/ Lips seen - WN Heart: 4-chamber view appears normal RVOT: Visualized [...] Candi Reno MD IMG US OB ORDERABLES documented in this encounter Visit Diagnoses Diagnosis Supervision of high risk in se cond trimester Unspecified high-risk documented in this encounter Care Teams Contract Assistant Relationship Specialty Start Date End Date Mere Gtz APRN PCP - General 04/10/13 04/02/16 documented as of this encounter
--- OUTSIDE RECORDS SUMMARY | 2021-10-20 08:00 | XMS_ITS | Encounter Summary ---
:1985 Author Organization [place] [address] Care Team Providers Name Role Phone Janet Alonso APRN Primary Care Provider Encounter Details Date Type Department Care Team Description 09/22/2011 Notes Only Pediatric Oncology a t [facility] Elena Marrero MD [facility] Celia gutierrez [facility] [place] [address] PEDIATRIC [phone] HEMATOLOGY/ON[place], [place] [address] (Wo rk) Social History Tobacco [...] documented as of this encounter Progress Notes Elena Marrero MD - 09/22/2011 11:14 PM EDT Pediatric Oncology Note Shirlene called me on 09/17 to report that she had been seen by primary care but felt she was having difficulty getting results and explanations. She described having made multiple unsuccessful phone calls. I agreed to follow-up with primary care. On 09/18 Shirlene's mother called, did not ask to speak withme but left a message reminding me to contact primary care. Ms Alonso and I were not able to connect this week. I was able to speak with her office staff. There was record of Ms Alonso having attempted to call Shirlene on 09/17 and 09/19. The office staff also reported they were having difficulty scheduling multiple follow-up studies for Shirlene on the same day and would not be able to schedule a breast MRI. I called Shirlene back. She acknowledged that she had missed one phone call because she was at work and that she had talked with Ms Alonso this week. She reported that the Hep C was negative but that she had LFTs that were very high at 3 x nl. I did not have access to the numbers. We discussed various reasons why LFTs could be elevated including hepatitis and that there were multiple types, alcohol consumption which she denied. Discussed that individuals providing primary care nowadays have very busy practices and that Shirlene was going to have to find a way to communicate well with the practice. Shirlene reported that she has ajob and is afraid that she will lose her job if she misses work. She reports having been up all night recently with abdominal discomfort. Discussed with her that I am not a primary care provider and that she needs to develop a relationship with her primary care provider. Shirlene mentioned that studies had not been scheduled. I suggested that she needed to call the officeand provide options for scheduling since it could not all be done on the same day. She stated that she didn't mind doing the studies on different days but just needed to do them on her days off. These studies are recommended based on Shirlene's treatment, primarily her radiation exposure, which puts herat risk for developing breast cancer, cardiac dysfunction including coronary artery disease, and carotid artery disease secondary to neck radiation. None of these studies needs to be done emergently orurgently at this time. documented in this encounter Plan of Treatment Not on filedocumented as of this encounter Visit Diagnoses Not on filedocumented in this encounter Care Teams Superintendent Maintenance Relationship Specialty Start Date End Date Janet Alonso APRN PCP - General 07/26/11 10/03/11 documented as of this encounter
--- OUTSIDE RECORDS SUMMARY | 2021-10-20 08:00 | XMS_ITS | Encounter Summary ---
:1985 Author Organization [facility] [place] [address] Care Team Providers Name Role Phone GtzMere APRN Primary Care Provider Reason for Visit Reason Onset Date Comments Results 08/13/2014 Encounter Details Date Type Department Care Team Description 08/13/2014 Telephone Obstetrics and Gynecology at [facility] Sherly maciel MD Results [facility] Celia gutierrez OBSTETRICS & [place] [address] [place] [address] [phone] (Wo rk) Social History Tobacco Use Types [...] this encounter Miscellaneous Notes Telephone Encounter - Sherly Reno MD - 08/13/2014 10:55 AM EDT TSH 3.9; abnormal in . Will increase synthroid to 150mcg. Reviewed timing of medication foroptimal absorption. Sherly Reno MD documented in this encounter Plan of Treatment Not on filedocumented as of this encounter Visit Diagnoses Not on filedocumented in this encounter Care Teams Composition Stone Applicator Relationship Specialty Start Date End Date Mere Gtz APRN PCP - General 04/10/13 04/02/16 documented as of this encounter
--- OUTSIDE RECORDS SUMMARY | 2021-10-20 08:00 | XMS_ITS | Encounter Summary ---
:1985 Author Organization [facility] [address] Care Team Providers Name Role Phone GtzMere APRN Primary Care Provider Reason for Visit Reason Comments Routine Visit Encounter Details Date Type Department Care Team Description 08/12/2014 Routine Obstetrics and CLINIC, DR EPPS [place]: [address] [facility] Sherly Reno MD [facility] OBSTETRICS [place] [address] [facility] [place] [address] Social History Tobacco Use Types Packs/Day [...] Reading Time Taken Comments Blood Pressure 110/62 08/12/2014 8:00 AM EDT Pulse - - Temperature - - Respiratory Rate - - Oxygen Saturation - - Inhaled Oxygen Concentration - - Weight 28.1 kg (62 lb) 08/12/2014 8:00 AM EDT Height - - Body Mass Index 9.16 06/19/2014 10:53 AM EDT documented in this encounter Progress Notes Sherly Reno MD - 08/13/2014 11:31 AM EDT Normal morphology today. No OB complaints. Repeat TSH today. RTC 4 weeks, with GTT. documented in this encounter Plan of Treatment Not on filedocumented as of this encounter Procedures Procedure Name Priority Date/Time Associated Diagnosis Comme nts TSH Routine 08/12/2014 9:06 AM Supervision of high Re sults for this EDT risk in procedure are in second trimester the results Hodgkin's disease in section . remission documented in this encounter Results TSH (08/12/2014 9:06 AM EDT) P athologist Signature TSH 3.90 0.27 - 4.20 CERNER mcIU/mL MILLENNIUM Specimen Anatomical Collection Method Collection Time Receive d Time (Source) Location / / Volume Laterality Blood specimen 08/12/2014 9:06 AM 015 9:10 (specimen) EDT AM EDT Resulting Agency Comment Spec In Lab E Candi Reno MD CHEMISTRY ORDERABLES Performing Organization Address City/State/Z[place] [address] CERNER MILLENNIUM documented in this encounter Visit Diagnoses Diagnosis Supervision of high risk in se cond trimester Unspecified high-risk Hodgkin's disease in remission Hodgkin's disease, unspecified documented in this encounter Care Teams Coke Drawer Relationship Specialty Start Date End Date Mere Gtz APRN PCP - General 04/10/13 04/02/16 documented as of this encounter
--- OUTSIDE RECORDS SUMMARY | 2021-10-20 08:00 | XMS_ITS | Encounter Summary ---
:1985 [place] [address] Care Team Providers Name Role Phone Mere Gtz APRN Primary Care Provider Encounter Details Date Type Department Care Team Description 07/01/2014 Hospital Encounter Non-Invasive CARDIO, ECHO SIXTY MIN APPT None Unspecified Cardiology Lab Katerina Escalante MD [facility] DR OBSTETRICS & [place] [address] [place] [phone] Social History Tobacco Use Types Packs/Day Years [...] with spacer Take by mouth. 0 09/28/2014 [id number] Tablet triamcinolone (KENALOG) Apply topically 2 0 [...] Priority Date/Time Associated Comments Diagnosis ECHOCARDIOGRAM Routine 07/01/2014 3:21 Unspecified Results fo r this TRANSTHORACIC(LEB) PM EDT high-risk pr ocedure are in the results section. documented in this encounter Results Echocardiogram Transthoracic(Leb) (07/01/2014 3:21 PM EDT) P athologist Signature EF 72 [facility] Anatomical Region Laterality Modality Other Specimen (Source) Anatomical Location Collection Method / Collectio n Time Received Time / Laterality Volume 07/01/2014 Narrative 07/01/2014 4:28 PM EDT Procedure: ? Transthoracic Echocardiogram Patient: ? CHARLY Dumas ?(Age): 1985(29) Med Rec#: ?[id number] ? Sex: ?F ? Site Loc: ?[facility] ? Ht / Wt: ??175(cm)/70(kg) Pt. Loc: ? Echo Lab ? BSA: ?1.84 Study Date: ?07/01/2014 ? Pt. Type: Outpatient Tape: ? Referring: Katerina Doyle Weather Teacher: Russell Baez Diagnosis:CPT Code(s): ??Echo Full (9330 7), ??Spectral Doppler (96059), Color Doppler (30273), Indication(s): ??Ventricular function, F /U Rhythm: Sinus [...] ? Mid-Inferior ?Normal ? Mid-Inferoseptal ?Normal ? [place]-Septal ? Normal ? [place]-Anterior ? Normal ? [place]-Lateral ?Normal ? [place]-Inferior ? Normal ? [place]-Tip ?Normal ? Chambers ?Value ?Units (Range) ? [...] been electronically sign ed by: _ William Spencer. MD Jenny ? 07/01/2014 16:27: 51 Images reviewed and interpretation [facility] Cardiac Ultrasound Laboratory Procedure Note William Alvarado MD - 07/01/2014 Procedure: Transthoracic Echocardiogram Patient: CHARLY Dumas DOB(Age): [birth year]) Med Rec#: [id number] Sex: F Site Loc: [facility] Ht / Wt: 175(cm)/70(kg) Pt. Loc: Echo Lab BSA: 1.84 Study Date: 07/01/2014 Pt. Type: Outpati ent Tape: Referring: Katerina Doyle Weather Teacher: Russell Baez Diagnosis:CPT Code(s): Echo Full (95080) , Spectral Doppler (95151), Color Doppler (91225), Indication(s): Ventricular function, F/U Rhythm: Sinus HR [...] Normal Mid-Posterolateral Normal Mid-Inferior Normal Mid-Inferoseptal Normal [place]-Septal Normal [place]-Anterior Normal [place]-Lateral Normal [place]-Inferior Normal [place]-Tip Normal Chambers Value Units (Range) LV EF [...] 16:27:51 Images reviewed and interpretation verif ied [facility] Cardiac Ultrasound Laboratory Katerina Doyle MD ECHO ORDERABLES documented in this encounter Visit Diagnoses Diagnosis Unspecified high-risk documented in this encounter Care Teams Access Services Assistant Relationship Specialty Start Date End Date Mere Gtz APRN PCP - General 04/10/13 04/02/16 documented as of this encounter
--- OUTSIDE RECORDS SUMMARY | 2021-10-20 08:00 | XMS_ITS | Encounter Summary ---
:1985 Author Organization [facility] [place] [address] Care Team Providers Name Role Phone Mere Gtz APRN Primary Care Provider Encounter Details Date Type Department Care Team Description 08/30/2014 Telephone Obstetrics and Gynecology at Abdirizak Haro MD [place] [phone] Social History Tobacco Use Types Packs/Day Years [...] Telephone Encounter - Abdirizak Moses MD - 08/30/2014 9:30 AM EDT Telephone Note Shirlene Kovacs is a 29 y.o. at 26w1d gestation who calls to complain of cramping mid abdominal pain since 1900 last night, which is continuous, with overlying stronger tightening pains q 20 min. She has tried resting, drinking fluids, and ambulating without relief of her pain. Denies vaginal bleeding, loss of fluid. No movement since yesterday night when the pain began. She normally isconstipated; she has had bowel movements for the past three days. She notes pruritis with urination.No other urinary symptoms and no change in discharge. As patient lives in [facility], patient prefers to present locally for initial evaluation for possible labor and absent movement as this is more convenient for her. She will proceed to evaluation at [facility] at this time. ABDIRIZAK MOSES MD, PGY4 08/30/2014 documented in this encounter Plan of Treatment Not on filedocumented as of this encounter Visit Diagnoses Not on filedocumented in this encounter Care Teams Bloom Conveyor Operator Relationship Specialty Start Date End Date Mere Gtz APRN PCP - General 04/10/13 04/02/16 documented as of this encounter
--- OUTSIDE RECORDS SUMMARY | 2021-10-20 08:00 | XMS_ITS | Encounter Summary ---
:1985 Author Organization [facility] [place] [address] Care Team Providers Name Role Phone Geraldine Lea MD Primary Care Provider Reason for Visit Reason Onset Date Comments Medication Refill 04/16/2012 Encounter Details Date Type Department Care Team Description 04/16/2012 Refill Endocrinology at [facility] Magdaleno Mcgee Hypothyroidism (Primary [facility] Celia gutierrez III, [place]x) [place] [address] [facility] [phone] ENDOCRINOLOGY DEPT. [place], [place] [address] Social History Tobacco Use Types [...] hypothyroidism documented in this encounter Care Teams Forklift Truck Mechanic Relationship Specialty Start Date End Date Geraldine Lea MD PCP - General 10/04/11 06/03/[address] [facility] [place] [address] documented as of this encounter
--- OUTSIDE RECORDS SUMMARY | 2021-10-20 08:00 | XMS_ITS | Encounter Summary ---
:1985 Author Organization [facility] [place] [address] Care Team Providers Name Role Phone Janet Alonso APRN Primary Care Provider Encounter Details Date Type Department Care Team Description 12/17/[address] [facility] [place] [address] Social History Tobacco Use Types Packs/Day Years [...] Telephone Encounter - Livier Luna LPN - 12/17/2012 11:[address] Corbin patient told to increase Lt4 to 125 mcg from 100 mcg for TSH of 2.39. Patient agrees with plan of care. documented in this encounter Plan of Treatment Not on filedocumented as of this encounter Visit Diagnoses Not on filedocumented in this encounter Care Teams Sand Technician Relationship Specialty Start Date End Date Janet Alonso APRN PCP - General 06/04/12 04/09/13 documented as of this encounter
--- OUTSIDE RECORDS SUMMARY | 2021-10-20 08:00 | XMS_ITS | Encounter Summary ---
:1985 Author Organization [facility] [place] [address] Care Team Providers Name Role Phone Mere Gtz APRN Primary Care Provider Encounter Details Date Type Department Care Team Description 08/11/2014 Telephone Obstetrics and Gynecology at [facility] Gayle calixto MSW [facility] Celia gutierrez OBSTETRICS & [place] [address] [place] [id number] (Wo rk) Social History Tobacco Use Types [...] Notes Telephone Encounter - Gayle Wadsworth - 08/11/2014 2:08 PM EDT I called Shirlene at the request of Yas Merchant who heard from Shirlene's PCP's office that she wasn't doing well and they were concerned. When I reached her Shirlene had already [facility]. She is interested in a referral to psychiatry. Given her history of severe mental illness this is a reasonable choice. i will put in a referral to Dr. Moran. She is also looking for help with gas cards. I left a message at [facility] requesting this. documented in this encounter Plan of Treatment Not on filedocumented as of this encounter Visit Diagnoses Not on filedocumented in this encounter Care Teams Sealing And Canceling Machine Operator Relationship Specialty Start Date End Date Mere Gtz APRN PCP - General 04/10/13 04/02/16 documented as of this encounter
--- OUTSIDE RECORDS SUMMARY | 2021-10-20 08:00 | XMS_ITS | Encounter Summary ---
:1985 Author Organization [facility] [place] [address] Care Team Providers Name Role Phone Mere Gtz APRN Primary Care Provider Reason for Visit Reason Comments Other Encounter Details Date Type Department Care Team Description 08/18/2013 Telephone [facility]ology at [facility] Ximena Sow RN Other [facility] matt DEPT [place] [address] Social History Tobacco Use Types Packs/Day [...] this encounter Miscellaneous Notes Telephone Encounter - Ximena Mesa RN - 08/18/2013 10:48 AM EDT Received fax for disability paperwork from patient's employer. Called Katerina, advised she obtain information from PCPs office. Katerina states she did ask PCP, and needs info from another provider. Indicated pt had only been seen for one visit, and is not appropriate for Maddi Watt APRN to complete. Katerina verbalized understanding. documented in this encounter Plan of Treatment Not on filedocumented as of this encounter Visit Diagnoses Not on filedocumented in this encounter Care Teams Commissions Manager Relationship Specialty Start Date End Date Mere Gtz APRN PCP - General 04/10/13 04/02/16 documented as of this encounter
--- OUTSIDE RECORDS SUMMARY | 2021-10-20 08:00 | XMS_ITS | Encounter Summary ---
:1985 Author Organization [facility] [place] [address] Care Team Providers Name Role Phone Janet Alonso APRN Primary Care Provider Encounter Details Date Type Department Care Team Description 06/07/2012 Orders Only Gastroenterology at [facility] Rosa Perez, HCV (hepatitis C [facility] Celia gutierrez MD virus) (Primary Dx) [place] [address] [facility] [phone] CENTER [place] [address] Social History Tobacco Use Types Packs/Day Years [...] as of this encounter Visit Diagnoses Diagnosis HCV (hepatitis C virus) - Primary Unspecified viral hepatitis C without he patic coma documented in this encounter Care Teams Manager Client Service Relationship Specialty Start Date End Date Janet Alonso APRN PCP - General 06/04/12 04/09/13 documented as of this encounter
--- OUTSIDE RECORDS SUMMARY | 2021-10-20 08:00 | XMS_ITS | Encounter Summary ---
:1985 Author Organization [facility] [place] [address] Care Team Providers Name Role Phone Geraldine Lea MD Primary Care Provider Encounter Details Date Type Department Care Team Description 10/11/2011 Orders Only Pediatric Oncology at Alexx Marrero MD Hodgkin's disease in remission; [facility] History of therapeutic radia tion [facility] [place] [address] HEMATOLOGY/ONCOLOG [phone] [place], [place] [address] Social History Tobacco Use Types [...] as of this encounter Visit Diagnoses Diagnosis Hodgkin's disease in remission Hodgkin's disease, unspecified History of therapeutic radiation Personal history of irradiation, present ing hazards to health documented in this encounter Care Teams Rotary Driller Helper Relationship Specialty Start Date End Date Geraldine Lea MD PCP - General 10/04/11 06/03/[address] [facility] [place] [address] documented as of this encounter
--- OUTSIDE RECORDS SUMMARY | 2021-10-20 08:00 | XMS_ITS | Encounter Summary ---
:1985 Author Organization [facility] [place] [address] Care Team Providers Name Role Phone Geraldine Lea MD Primary Care Provider Reason for Visit Reason Onset Date Comments Medication Refill 04/15/2012 Encounter Details Date Type Department Care Team Description 04/15/2012 Refill Endocrinology at [facility] Magdaleno Mcgee Hypothyroidism ([facility] Celia gutierrez III, MD Dx) [place] [phone] [place] [address] ENDOCRINOLOGY DEPT. 0375 Social History Tobacco Use Types Packs/Day [...] Telephone Encounter - Livier Luna LPN - 04/15/2012 1:43 PM EDT Message on endo nurse line from patient I need a prescription I have been out of my thyroid medication for a while Called patient no answer left message for patient to return my call documented in this encounter Plan of Treatment Not on filedocumented as of this encounter Visit Diagnoses Diagnosis Hypothyroidism - Primary Unspecified hypothyroidism documented in this encounter Care Teams Patrol Commander Relationship Specialty Start Date End Date Geraldine Lea MD PCP - General 10/04/11 06/03/[address] [facility] [address] JAMES SARAH [facility] [place] [address] documented as of this encounter
--- OUTSIDE RECORDS SUMMARY | 2021-10-20 08:00 | XMS_ITS | Encounter Summary ---
:1985 Author Organization [facility] [place] [address] Care Team Providers Name Role Phone Mere Gtz APRN Primary Care Provider Encounter Details Date Type Department Care Team Description 08/04/2013 Hospital Encounter XRay at [facility] Abdominal pain, [address] [place] [address] Social History Tobacco Use Types Packs/Day [...] Priority Date/Time Associated Diagnosis Comme nts XR ABDOMEN FLAT AND Routine 08/04/2013 12:24 PM Abdominal pain , Results for this UPRIGHT EDT unspecified site procedure a re in the results section. documented in this encounter Results XR abdomen flat and upright (08/04/2013 12:24 [...] site documented in this encounter Care Teams Manager Skilled Relationship Specialty Start Date End Date Mere Gtz APRN PCP - General 04/10/13 04/02/16 documented as of this encounter
--- OUTSIDE RECORDS SUMMARY | 2021-10-20 08:00 | XMS_ITS | Encounter Summary ---
:1985 Author Organization [facility] [place] [address] Care Team Providers Name Role Phone Janet Alonso APRN Primary Care Provider Reason for Visit Reason Comments Follow-up Encounter Details Date Type Department Care Team Description 2012 [place] [facility] [place]yda Glynn, Chronic hepatitis C [facility] Celia gutierrez APRN (Primary Dx) [place] [address] [place] [address] CENTER GASTROENTEROLOGY DEPT. [place], [place] [address] Social History Tobacco Use Types [...] Sign Reading Time Taken Comments Blood Pressure 109/81 2012 10:46 AM EDT Pulse 77 2012 10:46 AM EDT Temperature - - Respiratory Rate - - Oxygen Saturation - - Inhaled Oxygen Concentration - - Weight 68 kg (150 lb) 2012 10:46 AM EDT Height 173.7 cm (5' 8.39) 2012 10:46 AM EDT Body Mass Index 22.55 2012 10:46 AM EDT documented in this encounter Progress Notes Briseyda Glynn APRN - 2012 10:50 AM EDT Subjective: Patient ID: Shirlene Parks is a 27 y.o. female. HPI Ms. Parks is a 27 year old female here to discuss results of recent Hepatitis testing. She has hepatitis C, genotype 1a, CT (IL28B). She was seen last month and would like to consider treatment for the hepatitis C. She tells me that she has been IV drugs intermittently and has had recent use in the last few weeks. 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 She is accompanied by her mother who expresses concern over her daughter's ability to take the medications as prescribed as she has struggled with this in the past, with the thyroid medication and withher chemo and radiation therapy when she was a teen. Results for SHIRLENE PARKS ( ) as [...] (H) HCV Viral Load No range found 113767 HCV QUANT No range found Rpt Hepatitis A IgM Latest Range: Negative Negative HepB Surface Ab No range found Negative HepB Surface Ag Latest Range: Negative Negative Hep B Core Ab Latest Range: Negative Negative Hepatitis C Ab Latest Range: Negative Positive (A) HCV GENOTYPE No range found Rpt IL28B Polymorphism Genotyping No range found IL28B ([id number]... Review of Systems Objective: Physical Exam Assessment and Plan: Ms. Parks is a 27 year old female who has hepatitis C infection. She continues to struggle with substance abuse and has not had any significant period of abstinence. She has failed several drug rehabsalways leaving early, and then relapsing with drugs soon thereafter. We had a long discussion about the need for strict abstinence from drug and alcohol prior to considering her for treatment. We also discussed the option of waiting for newer better targeted therapies which should be available over the next few years. She is quite anxious to get it over with, and prefers to do the triple therapy which is available now. Also of concern is ability to comply with the complex treatment regimen. She has struggled with taking her thyroid medication regularly in the past. 1. Hepatitis C, gentoype 1a, CT, she is naive to treatment. Ideally she would wait for an alternate treatment regimen which would not use interferon however she feels that she does not want to wait. Wehave agreed that she will attempt to abstain from drugs over the next six months. She has been considering going to an intensive outpatient program and I have encouraged her to do this. We discussed the risks of moving forward with a therapy that she is not fully committed to as her first attempt at HCV treatment is the one most likely to be successful. 2. Substance abuse, will attempt to stop using drugs. We also discussed eliminating the alcohol. IF she is unable to fully eliminate then she needs to limit alcohol to no more than one alcoholic beverage in 24 hours. 3. Hypothyroid, we discussed that interferon can have an effect on her thyroid and that it is important that she take her thyroid medication correctly. This is an opportunity for her to show her ability to comply with daily medications. She will return to clinic in three months to see how she is progressing. Our thirty minute visit was spent in counseling and discussing her therapeutic options in regards toHCV. Briseyda Glynn APRN - 2012 10:50 AM EDT Briseyda Glynn APRN - 2012 10:50 AM EDT documented in this encounter Plan of Treatment Not on filedocumented as of this encounter Visit Diagnoses Diagnosis Chronic hepatitis C - Primary Chronic hepatitis C without mention of h epatic coma documented in this encounter Care Teams Wire Straightener Relationship Specialty Start Date End Date Janet Alonso APRN PCP - General 06/04/12 04/09/13 documented as of this encounter
--- OUTSIDE RECORDS SUMMARY | 2021-10-20 08:01 | XMS_ITS | Encounter Summary ---
:1985 Author Organization [facility] [place] [address] Care Team Providers Name Role Phone None Primary Care Provider Unavailable Reason for Visit Reason Onset Date Comments Medication Refill 12/22/2010 Encounter Details Date Type Department Care Team Description 12/22/2010 Refill Endocrinology at [facility] Magdaleno Mcgee III, [facility] [place] [address] [facility] [phone] ENDOCRINOLOGY DE PT. [place], [place] [address] (Wo rk) Social History Tobacco [...] on filedocumented in this encounter Care Teams Picker Tender Helper Relationship Specialty Start Date End Date None PCP - General 12/28/09 07/25/11 None documented as of this encounter
--- OUTSIDE RECORDS SUMMARY | 2021-10-20 08:01 | XMS_ITS | Encounter Summary ---
:1985 Author Organization [facility] [place] [address] Care Team Providers Name Role Phone None Primary Care Provider Unavailable Encounter Details Date Type Department Care Team Description 01/20/2010 Hospital Encounter Laboratory Magdaleno Corbin [facility] III, [place] [address] ENDOCRINOLOGY [place]. [place] [address] (Wo rk) Social History Tobacco Use Types Packs/Day Years Used Date Never Assessed Sex Assigned at Date Recorded Female 04/13/2020 8:26 AM EST documented as of this encounter Medications at Time of Discharge Medication Sig Dispensed Refills Start Date End Date levothyroxine (SYNTHROID) 75 MCG = 1 0 12/01/2009 06/27/2010 75 mcg tablet Tablet(s), PO, Once daily documented as of this encounter Plan of Treatment Not on filedocumented as of this encounter Visit Diagnoses Not on filedocumented in this encounter Care Teams Multimedia Technician Relationship Specialty Start Date End Date None PCP - General 12/28/09 07/25/11 None documented as of this encounter
--- OUTSIDE RECORDS SUMMARY | 2021-10-20 08:01 | XMS_ITS | Encounter Summary ---
:1985 Author Organization [facility] [place] [address] Care Team Providers Name Role Phone None Primary Care Provider Unavailable Reason for Visit Reason Onset Date Comments Medication Refill 05/16/2011 Encounter Details Date Type Department Care Team Description 05/16/2011 Refill Endocrinology at [facility] Magdaleno Mcgee Hypothyroidism (Primary [facility] Celia gutierrez III, MD Dx) [place] [address] [facility] [phone] DR ENDOCRINOLOGY DEPT. [place], [place] [address] Social History Tobacco Use Types [...] hypothyroidism documented in this encounter Care Teams Lever Operator Relationship Specialty Start Date End Date None PCP - General 12/28/09 07/25/11 None documented as of this encounter
--- OUTSIDE RECORDS SUMMARY | 2021-10-20 08:01 | XMS_ITS | Encounter Summary ---
:1985 [address] Organization [facility] [place] [address] Care Team Providers Name Role Phone None Primary Care Provider Unavailable Reason for Visit Reason Comments Loss of Consciousness Encounter Details Date Type Department Care Team Description 04/24/2011 Emergency 1 [facility] Ethan Chaudhary MD [facility] [place] [address] Syncope; [facility] [place] [address] [place] [address] Social History Tobacco Use Types Packs/Day [...] Sign Reading Time Taken Comments Blood Pressure 105/69 04/24/2011 10:29 PM EDT Pulse 61 04/24/2011 10:29 PM EDT Temperature 36.5 ??C (97.7 ??F) 04/24/2011 10:29 PM EDT Respiratory Rate 18 04/24/2011 10:29 PM EDT Oxygen Saturation 100% 04/24/2011 10:24 PM EDT Inhaled Oxygen Concentration - - Weight 66.6 kg (146 lb 13.2 oz) 04/24/2011 10:29 PM EDT Height - - Body Mass Index 22.38 06/15/2010 2:38 PM EDT documented in this encounter Medications at Time of Discharge Medication Sig Dispensed Refills Start Date End Date aripiprazole (ABILIFY) 10 Take 10 mg by 0 08/02/2011 mg tablet mouth daily. metroNIDAZOLE (FLAGYL) 500 Take 500 mg by 0 08/02/2011 mg tablet mouth 3 times daily. gabapentin (NEURONTIN) 100 Take 100 mg by 0 08/02/2011 mg capsule mouth 3 times daily. ibuprofen (ADVIL;MOTRIN) Take 800 mg by 0 06/19/2014 800 mg tablet mouth every 6 hours as needed. polyethylene glycol Take 17 g by mouth 0 12/04/2014 (MIRALAX) 17 gram packet every other day. levothyroxine (SYNTHROID) Take 1 tablet by 90 tablet 3 06/0605/16/2011 75 mcg tabletIndications: mouth daily. Hypothyroidism documented as of this encounter Progress Notes Katerina Delatorre RN - 04/24/2011 11:45 PM EDT 04/24/11 2230 Late Entry - entered at 2355 pm, 04/24/11 Upon admission patient immediately requested to leave floor and walk to mall to obtain food - Admit VS checked and weight obtained. Admission was not completed at this time. Dr. Sole raya questioned about allowing pt to leave floor. He stated patient could leave floor to obtain food.Pt denied any dizziness. Male friend with patient. Steady gait. One hour later - ~2335pm a female called the unit and identified herself as Shirlene's friend. She reported that Shirlene had a family emergency and was leaving the hospital and not returning to floor/room. JUS and MD covering (Dr. Romero) notified. Per ED report from Deya Marques RN pt had an IV catheter in place. IV site not visualized by glendy prior to pt's request to leave floor upon admit. During this time Syd Abrams called to check on status of pt - they were updated about above situation. JUS called and spoke with Syd Abrams. Per JUS (Katerina Valles) Syd Abrams states they have removed pt's IV at their facility. documented in this encounter H&P Notes Sole Lund MD - 04/24/2011 8:03 PM EDT Inpatient Hospital Medicine - Admission Note ID: 25 y.o. Female presents to [facility] with recurrent syncope. History of Present Illness: HPI Comments: 25 yo woman with a hx of polysubstance abuse, Hodgkin's lymphoma s/p chemoradiation [id number], chemo-related peripheral neuropathy, and recurrent syncope that started shortly after undergoing chemotherapy who presents with frequent episodes of syncope in the setting of opioid detox. She iscurrently completing detox for heroin addiction at [facility]; detox symptoms are improving but she is still having some sweats, chills, and diarrhea. Over the past 2-3 days she has had multiple episodes of lightheadedness, presyncope, and syncope typical of the episodes that she has had dating backto 2002. She has had no prior work-up for the syncope; she has just adapted by lying down whenever sh e feels lightheadedness. Episodes usually occur with orthostasis and are not associated with chest pain or palpitations; her heart will pound fast only occasionally, and she certainly does not have lightheadedness or rapid heart rate every time she stands. She has had no apparent seizure-like activity, incontinence, tongue-biting, or post-ictal state with any of these episodes. She was seen in the ED yesterday and had largely unremarkable labs other than mild hypokalemia, unremarkable ECG other than slight sinus bradycardia, and a normal head CT. She was discharged with a Holter monitor and instructions to stay hydrated. Echocardiogram was also ordered. She was feeling better today and did not have any episodes until after lying out in the sun and then taking a hot shower, during which she apparently fainted again. Review of Systems: Review of Systems Constitutional: Positive for chills. Negative for fever. HENT: Positive for dental problem. Negative for congestion, trouble swallowing, neck pain and neck stiffness. Tooth pain attributed to cavity. Eyes: Negative for visual disturbance. Respiratory: Negative for cough and shortness of breath. Cardiovascular: Negative for chest pain, palpitations and leg swelling. Gastrointestinal: Positive for diarrhea. Negative for nausea, vomiting and abdominal pain. Genitourinary: Negative for dysuria. Musculoskeletal: Negative for myalgias and arthralgias. Skin: Negative for rash. Neurological: Positive for syncope. Negative for seizures, weakness and numbness. Psychiatric/Behavioral: Negative for confusion. Past Medical and Surgical History: Hodgkin's lymphoma -Diagnosed in 2001. Presented with cervical, axillary, and mediastinal adenopathy. Diagnosed on lymph node biopsy 02/03/02 -Stage IIa cancer at diagnosis -Treated with chemotherapy and radiation therapy: 21.6 Gy of XRT to the neck and upper mediastinum. Chemotherapy on protocol, included cyclophosphamide, doxorubicin, prednisone, procarbazine, and vincristine. -Completed therapy in July 2002, complete remission Peripheral neuropathy secondary to chemotherapy Eating disorder, bulimia Hypothyroidism--has not taken medication in several months Depression Migraine Bipolar disorder GERD IBS History of suicide attempt Drug abuse Prior To Admission Medications: Abilify Gabapentin Levothyroxine Ibuprofen prn Lansoprazole prn Metronidazole x 1 more day Miralax prn Allergies: Allergies Allergen Reactions ??? Duloxetine Hcl ??? Varenicline Tartrate Nausea/Vomiting Family History: Family History Problem Relation Age of Onset ??? Cancer Hodgkin lymphoma in maternal cousin Social History and Habits: History Social History ??? Marital Status: Single Spouse Name: N/A Number of Children: N/A ??? 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 Smoking status: Current Everyday Smoker -- 0.5 packs/day ??? Smokeless tobacco: Not on file Comment: Shirlene says that she has tried and would like to try again. ??? Alcohol Use: Yes ??? Drug Use: Yes In the past ??? Sexually Active: Yes -- Female, Male partner(s) Other Topics Concern ??? Service No ??? Blood Transfusions No ??? Caffeine Concern No ??? Occupational Exposure No ??? Hobby Hazards No ??? Sleep Concern No ??? Stress Concern Yes ??? Weight Concern No ??? Special Diet No ??? Back Care No ??? Exercise No ??? Seat Belt Yes Social History Narrative Shirlene is currently (06/2010) in [place] with her . This relationship is of some months duration. They are apparently discussion which one will become . 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 She is also looking for a job in a salon.Shirlene continues to smoke. She says she would like to stop but has not been able to do so. She reports limited alcohol intake. She denies using drugs. She wears her seatbelt. Immunizations: There is no immunization history on file for this patient. Physical Exam: Last Set of Vitals and range of vitals over past 24 hours: Last value Range last 24 hrs Temperature Temp: 37.1 ??C (98.8 ??F) Temp: [37.1 ??C (98.8 ??F)] Heart Rate Heart Rate: 58 Heart Rate: [58] Blood Pressure BP: 112/61 mmHg BP: (112)/(61) Respiratory Rate Resp: 16 Resp: [16] SpO2 SpO2: 97 % SpO2: [97 %] Physical Exam Constitutional: She is oriented to person, place, and time. She appears well- developed and well-nourished. No distress. HENT: Head: Normocephalic and atraumatic. Mouth/Throat: Oropharynx is clear and moist. No oropharyngeal exudate. Eyes: Conjunctivae and EOM are normal. Pupils are equal, round, and reactive to light. No scleral icterus. Neck: Neck supple. Cardiovascular: Normal rate, regular rhythm and normal heart sounds. No murmur heard. Pulmonary/Chest: Effort normal and breath sounds normal. She has no wheezes. She has no rales. Abdominal: Soft. Bowel sounds are normal. She exhibits no distension. No tenderness. Musculoskeletal: She exhibits no edema. Lymphadenopathy: She has no cervical adenopathy. Neurological: She is alert and oriented to person, place, and time. No cranial nerve deficit. Skin: Skin is warm and dry. No rash noted. Psychiatric: She has a normal mood and affect. Laboratory (Last 24 Hours): Recent Results (from the past 24 hour(s)) CBC (WITH DIFF) Component Value Range ??? WBC 7.3 4.0 - 10.0 (x10(3)/mcL) ??? RBC 4.42 3.93 - 5.22 (x10(6)/mcL) ??? Hemoglobin 13.5 11.2 - 15.7 (gm/dL) ??? Hematocrit 40.4 34.0 - 45.0 (%) ??? MCV 91.4 79.0 - 94.0 (fL) ??? MCH 30.5 26.6 - 32.2 (pg) ??? MCHC 33.4 32.0 - 36.5 (gm/dL) ??? Platelets 338 145 - 370 (x10(3)/mcL) ??? RDWSD 41.7 35.0 - 46.0 (fL) ??? RDWCV 12.5 10.9 - 14.4 (%) ??? MPV 10.2 9.0 - 12.0 (fL) ELECTROLYTES PANEL Component Value Range ??? Sodium 139 135 - 145 (mmol/L) ??? Potassium 3.3 (*) 3.5 - 5.0 (mmol/L) ??? Chloride 105 98 - 107 (mmol/L) ??? CO2 25 22 - 31 (mmol/L) ??? Anion Gap 9 5 - 15 (mmol/L) BUN Component Value Range ??? BUN 8 8 - 18 (mg/dL) CREATININE, SERUM Component Value Range ??? Creatinine 0.72 0.70 - 1.20 (mg/dL) ? ? Estimated GFR >60 >=60 GLUCOSE, RANDOM Component Value Range ??? Glucose Lvl 86 60 - 199 (mg/dL) DIFFERENTIAL, AUTOMATED Component Value Range ??? Neutrophils % 55.5 34.0 - 71.0 (%) ??? Neutr Abs (ANC) 4.03 1.50 - 6.30 (x10(3)/mcL) ??? Lymphocytes % 34.9 19.0 - 53.0 (%) ??? Lymphocytes Abs 2.5 1.0 - 3.6 (x10(3)/mcL) ??? Monocytes % 8.3 4.0 - 13.0 (%) ??? Monocyte Abs 0.6 0.2 - 1.0 (x10(3)/mcL) ??? Eosinophils % 0.4 0.0 - 7.0 (%) ??? Eosinophils Abs 0.0 0.0 - 0.5 (x10(3)/mcL) ??? Basophils % 0.8 0.0 - 2.0 (%) ??? Basophils Abs 0.1 0.0 - 0.2 (x10(3)/mcL) ??? Immature Gran % 0.10 0.00 - 0.66 (%) ??? Ayah Gran Abs 0.01 0.00 - 0.05 (x10(3)/mcL) POCT URINE Component Value Range ??? POC Urine HCG Negative Negative - Negative ??? POC Control Internal Controls Acceptable POCT URINE DIPSTICK Component Value Range ??? POC Sp [place] 1.005 1.002 - 1.030 ??? POC pH, UA 8 5.0 - 8.5 ??? POC Leuk, UA neg Negative - Negative ??? POC Nitrite, UA neg Negative - Negative ??? POC Protein, UA pos Negative - Negative (mg/dL) ??? POC Glucose, UA neg Normal - Normal (mg/dL) ??? POC Ketone, UA neg Negative - Negative ??? POC Urobil, UA neg 0.2 - 1.0 (mg/dL) ??? POC Bili, UA neg Negative - Negative ??? POC Blood, UA pos Negative - Negative (rony/uL) URINALYSIS WITH MICROSCOPIC Component Value Range ??? Glucose UA Negative Negative (mg/dL) ??? Protein UA Negative (mg/dL) ??? Bilirubin UA Negative Negative (mg/dL) ??? Urobilinogen UA Normal (mg/dL) ??? pH UA 7.0 5.0 - 8.0 ??? Blood UA Small (*) Neg ??? Ketones UA Negative (mg/dL) ??? Nitrite UA Negative ??? Leukocytes UA Negative (mcL) ??? Appearance UA Clear Clear ??? Spec [place] UA 1.005 1.002 - 1.030 ??? Color UA Yellow Yellow ? ? RBC UA <1 0 - 4 (/HPF) ??? WBC UA 1 0 - 5 (/HPF) ? ? Squam Epith UA 1 <=4 (/HPF) Radiology: CT Head 04/22 - normal. CT C spine 04/23 - no fx or misalignment. Other Studies: EKG - sinus carlo, no ischemic changes. Assessment: 25 yo woman with a hx of polysubstance abuse, Hodgkin's lymphoma s/p chemoradiation in 2002, chemo-related peripheral neuropathy, and recurrent syncope that started shortly after undergoing chemotherapy who presents with frequent episodes of syncope in the setting of opioid detox. Suspect she has a tendency to have recurrent presyncope / syncope from chronic autonomic neuropathy related to prior chemotherapy and now has worsening symptoms due to dehydration in the setting of opioid detox. Structural heart disease, such as valvulopathy related to prior XRT, should be ruled out with echo, but is less likely given normal cardiac exam. Plan: ?? Admit to medicine ?? IVF hydration ?? Replete potassium ?? Monitor overnight on telemetry and follow up Holter monitor results if available ?? Obtain Echo in a.m. (ordered) ?? If echo and tele unremarkable, then anticipate that after IVF hydration tonight can d/c back to [facility] tomorrow with emphasis on good hydration, avoidance of sun / heat / hot showers for the time being, and consideration of resuming suboxone for control of detox symptoms ?? DVT Prophylaxis - ambulate ?? Pneumovax and Influenza Immunizations given as needed. ?? Discussed Advanced Directives and Code Status. The patient wishesto be Full Code. A copy of this document will be sent to the patient's Primary Care Physician and/or Referring Physician. SOLE ULND MD 04/24/2011 documented in this encounter ED Notes Deya Marques RN - 04/24/2011 9:14 PM EDT C-collar removed by . OOB to bathroom with steady gait. Patient to be admitted. Awake and alert, skin pink, warm, and dry. Xiao Chaudhary MD - 04/24/2011 6:24 PM EDT Name: Shirlene Kovacs Date of : 1985 Attending Physician: Dr. Xiao Chaudhary Chief Complaint: syncope, head injury History of Present Illness: Shirlene Kovacs is a 25 y.o. female with h/o Hodgkin's lymphoma in remission, opiate abuse currently resident at [facility] x 25 days, presenting with syncope and head injury. Shirlene has had multiple episodes of syncope over the last 3 days. She was seen by me in the [facility] ED yesterday, at which time she had normal CBC, chem10 with mild hypokalemia (K 3.1) otherwiseno significant abnormalities, normal LFTs, normal urinalysis, negative , EKG showing sinus bradycardia, head CT with no ICH/fracture/mass/abnormality. Neurology was consulted, felt that syncope was likely vasovagal. Pt was discharged with 24-hour Holter monitor, and plan for outpatient Echo. Since waking up today Shirlene has been feeling lightheaded, nauseated, and chilled. Blood glucose was80 this morning. She reports that she ate and drank well today (approx 60 ounces). This afternoon she laid outside in the sun for a while, then went inside and felt more lightheaded and nauseated. She was lying down in her room, stood up to go to the bathroom and then felt tingling of her face/extremities and fainted. No palpitations or irregular heart rate. She hit the left side of her head either on a wooden door or on the tile floor. When she woke up she had a left-sided headache that was 7/10 inseverity, which has now decreased to 3/10 without medications. Also reports left-sided neck pain that is 3/10 in severity. No numbness/tingling/weakness of extremities now. The fainting episode was notwitnessed by anyone else. To ED via EMS, C-collar in place, IV placed. Review of Systems: General: no fevers, no rhinorrhea, no nasal congestion, no sore throat, no ear pain Neurologic: + headache, + neck pain, no numbness/tingling/weakness of extremities, no change in gait, + fainting, no seizures, + dizziness Ophthomologic: no visual changes, no photophobia Pulmonary: no cough, no increased work of breathing, no wheezing Cardiovascular: no chest pain or pressure, no palpitations, no irregular heart rate Abdominal: no abdominal pain, no nausea/vomiting, + watery nonbloody diarrhea, no constipation Genitourinary: normal urine output, + mild dysuria and frequency Endocrine: no fatigue, no neck swelling, no increase in thirst or urine output Skin: no rashes, no easy bruising/bleeding Rheumatologic: no joint pain/redness/swelling All other systems reviewed and negative. Past Medical History: - Syncope - since age 17, always associated with marijuana use until 2 weeks ago - Opiate abuse (IV heroin x 6 months, other opiates, marijuana, alcohol) - this is 5th time in rehab - Hodgkin's lymphoma -Diagnosed in 2001. Presented with cervical, axillary, and mediastinal adenopathy. Diagnosed on lymph node biopsy 02/03/02 -Stage IIa cancer at diagnosis -Treated with chemotherapy and radiation therapy: 21.6 Gy of XRT to the neck and upper mediastinum. Chemotherapy on protocol, included cyclophosphamide, doxorubicin, prednisone, procarbazine, and vincristine. -Completed therapy in July 2002, complete remission - Peripheral neuropathy secondary to chemotherapy - Hypothyroidism--has not taken medication in several months - Depression - Bipolar disorder - Eating disorder, bulimia - History of suicide attempt - Migraine - GERD - IBS - Cigarette smoking Gynecologic history: H/o miscarriages x2 at 4 months gestation LMP: current (vaginal bleeding started 2 days ago after pap smear done), doesn't know when last menses was (has h/o irregular menses) Unprotected intercourse with a man 24 days ago Past Surgical History: - Tympanostomy tube placement and removal - Portacath placement and removal - Neck biopsy Medications: - Suboxone x 24 days - Abilify - Neurontin - Flagyl - for BV diagnosed 6 days ago - Miralax - Melatonin - Levothyroxine - not currently taking - Ibuprofen Allergies: Allergies Allergen Reactions ??? Duloxetine Hcl ??? Varenicline Tartrate Nausea/Vomiting Immunizations: UTD Social History: Staying at [facility] rehab facility for past 24 days, for rehabilitation for IV heroin, opiate, marijuana, and ETOH use. This is her fifth time in rehab. + cigarette smoking (5 cigarettes/day x 13 years) + h/o IV drug use, with h/o recently sharing needles with hep C positive person + sexually active (with men and women), no contraception, , + h/o HPV Physical Exam: Vitals: BP 112/61 Pulse 58 Temp(Src) 37.1 ??C (98.8 ??F) (Oral) Resp 16 SpO2 97% General - awake, alert, in no acute distress Head - normocephalic/atraumatic, no step-offs/depressions Eyes - pupils equal, round, and reactive to light, extraocular movements intact, no conjunctival injection, no discharge, no scleral icterus, no periorbital ecchymosis Ears - normal external auditory canals bilat, tympanic membranes WNL bilat with no hemotympanum, no retroauricular ecchymosis Nose - no epistaxis Mouth - moist mucous membranes, no oral lesions Neck - C-collar in place, + posterior midline tenderness C1-C7 Cardiovascular - regular rate and rhythm, no murmurs/rubs/gallops Pulmonary - no cough; lungs clear to auscultation bilaterally, good air movement throughout, no wheeze, no crackles/rales, no retractions, no accessory muscle use Abdomen - soft, + mild RLQ tenderness, nondistended, no rebound/guarding, normal active bowel sounds, no hepatosplenomegaly Extremities - warm and well perfused, cap refill < 2 sec throughout Skin - no rashes Neuro - CN II-XII intact, strength 5/5 throughout, normal sensation throughout, normal cerebellar exam ED course: Nursing notes and vitals were reviewed by me. Past notes in [facility] and [facility] were reviewed by me. EKG (reviewed by me) - NSR at 52 bpm, normal axis/intervals (MN 136 msec, QTc 427 msec), normal ST-Twave segments, no T wave inversion in pre-cordial leads, no delta waves Orthostatics: Medications given: - NS 1 liter IV Labs (reviewed by me): Recent Results (from the past 24 hour(s)) CBC (WITH DIFF) Component Value Range ??? WBC 7.3 4.0 - 10.0 (x10(3)/mcL) ??? RBC 4.42 3.93 - 5.22 (x10(6)/mcL) ??? Hemoglobin 13.5 11.2 - 15.7 (gm/dL) ??? Hematocrit 40.4 34.0 - 45.0 (%) ??? MCV 91.4 79.0 - 94.0 (fL) ??? MCH 30.5 26.6 - 32.2 (pg) ??? MCHC 33.4 32.0 - 36.5 (gm/dL) ??? Platelets 338 145 - 370 (x10(3)/mcL) ??? RDWSD 41.7 35.0 - 46.0 (fL) ??? RDWCV 12.5 10.9 - 14.4 (%) ??? MPV 10.2 9.0 - 12.0 (fL) ELECTROLYTES PANEL Component Value Range ??? Sodium 139 135 - 145 (mmol/L) ??? Potassium 3.3 (*) 3.5 - 5.0 (mmol/L) ??? Chloride 105 98 - 107 (mmol/L) ??? CO2 25 22 - 31 (mmol/L) ??? Anion Gap 9 5 - 15 (mmol/L) BUN Component Value Range ??? BUN 8 8 - 18 (mg/dL) CREATININE, SERUM Component Value Range ??? Creatinine 0.72 0.70 - 1.20 (mg/dL) ? ? Estimated GFR >60 >=60 GLUCOSE, RANDOM Component Value Range ??? Glucose Lvl 86 60 - 199 (mg/dL) DIFFERENTIAL, AUTOMATED Component Value Range ??? Neutrophils % 55.5 34.0 - 71.0 (%) ??? Neutr Abs (ANC) 4.03 1.50 - 6.30 (x10(3)/mcL) ??? Lymphocytes % 34.9 19.0 - 53.0 (%) ??? Lymphocytes Abs 2.5 1.0 - 3.6 (x10(3)/mcL) ??? Monocytes % 8.3 4.0 - 13.0 (%) ??? Monocyte Abs 0.6 0.2 - 1.0 (x10(3)/mcL) ??? Eosinophils % 0.4 0.0 - 7.0 (%) ??? Eosinophils Abs 0.0 0.0 - 0.5 (x10(3)/mcL) ??? Basophils % 0.8 0.0 - 2.0 (%) ??? Basophils Abs 0.1 0.0 - 0.2 (x10(3)/mcL) ??? Immature Gran % 0.10 0.00 - 0.66 (%) ??? Ayah Gran Abs 0.01 0.00 - 0.05 (x10(3)/mcL) POCT URINE Component Value Range ??? POC Urine HCG Negative Negative - Negative ??? POC Control Internal Controls Acceptable POCT URINE DIPSTICK Component Value Range ??? POC Sp [place] 1.005 1.002 - 1.030 ??? POC pH, UA 8 5.0 - 8.5 ??? POC Leuk, UA neg Negative - Negative ??? POC Nitrite, UA neg Negative - Negative ??? POC Protein, UA pos Negative - Negative (mg/dL) ??? POC Glucose, UA neg Normal - Normal (mg/dL) ??? POC Ketone, UA neg Negative - Negative ??? POC Urobil, UA neg 0.2 - 1.0 (mg/dL) ??? POC Bili, UA neg Negative - Negative ??? POC Blood, UA pos Negative - Negative (rony/uL) URINALYSIS WITH MICROSCOPIC Component Value Range ??? Glucose UA Negative Negative (mg/dL) ??? Protein UA Negative (mg/dL) ??? Bilirubin UA Negative Negative (mg/dL) ??? Urobilinogen UA Normal (mg/dL) ??? pH UA 7.0 5.0 - 8.0 ??? Blood UA Small (*) Neg ??? Ketones UA Negative (mg/dL) ??? Nitrite UA Negative ??? Leukocytes UA Negative (mcL) ??? Appearance UA Clear Clear ??? Spec [place] UA 1.005 1.002 - 1.030 ??? Color UA Yellow Yellow ? ? RBC UA <1 0 - 4 (/HPF) ??? WBC UA 1 0 - 5 (/HPF) ? ? Squam Epith UA 1 <=4 (/HPF) Radiographic studies (reviewed by me, discussed with Radiology as appropriate): - CT C-spine - prelim read: No fracture or malalignment. Loss of normal cervical lordosis may be secondary to positioning or muscular spasm. Assessment and Plan: Shirlene Kovacs is a 25 y.o. female with h/o Hodgkin's lymphoma in remission, [facility] with syncope and head injury. Evaluation is notable for normal CBC, electrolytes, EKG, and urinalysis. Urine is negative. Head CT was negative yesterday, did not repeat today as pt has improving headache, no vomiting, no hematoma/step-off to suggest skull fracture. CT C-spine shows no fracture or malalignment. Disposition: Admit to medicine for further workup of multiple episodes of syncope Diagnosis: syncope Xiao Chaudhary MD 04/24/112036 documented in this encounter Miscellaneous Notes Miscellaneous - Provider, Scanning - 04/25/2011 1:39 AM EDT Miscellaneous - Provider, Scanning - 04/25/2011 1:30 AM EDT ED Triage - Deya Marques RN - 04/24/2011 6:31 PM EDT Brought in by [facility]. Patient resident of [facility]. Patient states she spent a lot of time outside today. Then spent some time lying on her bed, got up to go the bathroom and woke up on the floor. Complaining of head pain. Arrives on backboard and c-collar. Awake and alert, skin pink, warm, and dry. Removed from backboard per protocol. Moving all extremities, denies numbness or tingling. Seen in ED yesterday for similar event. Discharged on Holter monitor. documented in this encounter Plan of Treatment Not on filedocumented as of this encounter Procedures Procedure Name Priority Date/Time Associated Comments Diagnosis CT CERVICAL SPINE WO Routine 04/24/2011 7:03 PM R esults for this CONTRAST EDT procedure are i n the results section. URINALYSIS WITH STAT 04/24/2011 6:42 PM Result s for this REFLEX CULTURE EDT procedure are in the results section. POCT URINE DIPSTICK STAT 04/24/2011 6:42 PM Re sults for this EDT procedure are i n the results section. POCT URINE STAT 04/24/2011 6:40 PM R esults for this EDT procedure are i n the results section. DIFFERENTIAL, STAT 04/24/2011 6:35 PM Results for this AUTOMATED EDT procedure are i n the results section. CREATININE STAT 04/24/2011 6:35 PM Results f or this EDT procedure are i n the results section. CBC (WITH DIFF) STAT 04/24/2011 6:35 PM Result s for this EDT procedure are i n the results section. BUN STAT 04/24/2011 6:35 PM Results f or this EDT procedure are i n the results section. GLUCOSE, RANDOM STAT 04/24/2011 6:35 PM Result s for this EDT procedure are i n the results section. ELECTROLYTES PANEL STAT 04/24/2011 6:35 PM Res ults for this EDT procedure are i n the results section. EKG 12-LEAD STAT 04/24/2011 6:30 PM Results f or this EDT procedure are i n the results section. documented in this encounter Results CT CERVICAL SPINE WO CONTRAST (04/24/2011 7:03 PM EDT) Anatomical Region Laterality Modality C-spine Computed Tomography Specimen (Source) Anatomical Collection Method Collection Time Re ceived Time Location / / Volume Laterality 04/24/2011 7:03 PM EDT Impressions 04/26/2011 1:06 PM EDT IMPRESSION: No cervical fracture or malalignment. ?? Film and interpretation reviewed by the attending Narrative 04/26/2011 1:[address] CERVICAL SPINE, 04/24/11: HISTORY: ??Syncope with fall and midline cervical tenderness. ?? COMPARISON: ??None. ?? TECHNIQUE: ??Helical CT images of the ce rvical spine were acquired without contrast enhancement. ?? FINDINGS: ??There is no acute fracture o r spondylolisthesis. ??Vertebral body height and disc spaces are preserved. ?? Normal alignment of the craniocervical junction. ??Straightening of the normal cervical lordosis may be secondary to positioning or muscular spasm. ??There i s no paravertebral hematoma or soft tissue swelling. ?? Procedure Note Cruzito Prasad MD - 04/26/2011Forma tting of this note might be different from the original. NONCONTRAST CT CERVICAL SPINE, 04/24/11: HISTORY: Syncope with fall and midline c ervical tenderness. COMPARISON: None. TECHNIQUE: Helical CT images of the cerv ical spine were acquired without contrast enhancement. FINDINGS: There is no acute fracture or spondylolisthesis. Vertebral body height and disc spaces are preserved. No rmal alignment of the craniocervical junction. Straightening of the normal ce rvical lordosis may be secondary to positioning or muscular spasm. There is no paravertebral hematoma or soft tissue swelling. IMPRESSION IMPRESSION: No cervical fracture or malalignment. Film and interpretation reviewed by the attending Xiao Chaudhary MD IMG CT ORDERABLES (ABNORMAL) Urinalysis with microscopic (04/24/2011 6:42 PM EDT) Patholo gist Method Time Signature Glucose UA Negative Negative CERNER mg/dL MILLENNIUM Protein UA Negative mg/dL CERNER MILLENNIUM Bilirubin UA Negative Negative CERNER mg/dL MILLENNIUM Urobilinogen UA Normal mg/dL CERNER MILLENNIUM pH UA 7.0 5.0 - 8.0 CERNER MILLENNIUM Blood UA Small (A) Neg CERNER MILLENNIUM Ketones UA Negative mg/dL CERNER MILLENNIUM Nitrite UA Negative CERNER MILLENNIUM Leukocytes UA Negative mcL CERNER MILLENNIUM Appearance UA Clear Clear CERNER MILLENNIUM Spec [place] UA 1.005 1.002 - CERNER 1.030 MILLENNIUM Color UA Yellow Yellow CERNER MILLENNIUM RBC UA <1 0 - 4 /HPF CERNER MILLENNIUM WBC UA 1 0 - 5 /HPF CERNER MILLENNIUM Squam Epith UA 1 <=4 /HPF CERNER MILLENNIUM Specimen Anatomical Collection Method Collection Time Receive d Time (Source) Location / / Volume Laterality Urine specimen 04/24/2011 6:42 PM 012 6:47 (specimen) EDT PM EDT Resulting Agency Comment Spec In Lab Xiao Chaudhary MD URINE ORDERABLES Performing Organization Address City/State/ZIP Code Phon [place] [address] CERNER MILLENNIUM POCT urine dipstick (04/24/2011 6:42 PM EDT) P athologist Signature POC Sp [place] 1.005 1.002 - 1.030 POC pH, UA 8 5.0 - 8.5 POC Leuk, UA neg Negative - Negative POC Nitrite, neg Negative - UA Negative POC Protein, pos Negative - UA Negative mg/dL POC Glucose, neg Normal - UA Normal mg/dL POC Ketone, UA neg Negative - Negative POC Urobil, UA neg 0.2 - 1.0 mg/dL POC Bili, UA neg Negative - Negative POC Blood, UA pos Negative - Negative rony/uL Xiao Chaudhary MD POINT OF CARE TEST ORDERABLE S POCT urine (04/24/2011 6:40 PM EDT) Patholo gist Method Time Signature POC Urine HCG Negative Negative - Negative POC Control Internal Controls Acceptable Xiao Chaudhary MD POINT OF CARE TEST ORDERABLE S DIFFERENTIAL, AUTOMATED (04/24/2011 6:35 PM EDT) P athologist Signature Neutrophils % 55.5 34.0 - CERNER 71.0 % MILLENNIUM Neutr Abs (ANC) 4.03 1.50 - CERNER 6.30 MILLENNIUM x10(3)/mcL Lymphocytes % 34.9 19.0 - CERNER 53.0 % MILLENNIUM Lymphocytes Abs 2.5 1.0 - 3.6 CERNER x10(3)/mcL MILLENNIUM Monocytes % 8.3 4.0 - 13.0 CERNER % MILLENNIUM Monocyte Abs 0.6 0.2 - 1.0 CERNER x10(3)/mcL MILLENNIUM Eosinophils % 0.4 0.0 - 7.0 CERNER % MILLENNIUM Eosinophils Abs 0.0 0.0 - 0.5 CERNER x10(3)/mcL MILLENNIUM Basophils % 0.8 0.0 - 2.0 CERNER % MILLENNIUM Basophils Abs 0.1 0.0 - 0.2 CERNER x10(3)/mcL MILLENNIUM Immature Gran % 0.10 0.00 - CERNER [...] Location / / Volume Laterality Blood specimen 04/24/2011 6:35 PM 012 6:44 (specimen) EDT PM EDT Xiao Chaudhary MD HEMATOLOGY ORDERABLES Performing Organization Address City/State/ZIP Code Phon [place] [address] CERNER MILLENNIUM Glucose, random (04/24/2011 6:35 PM EDT) athologist Signature Glucose Lvl 86 60 - 199 CERNER mg/dL MILLENNIUM Comment: Diabetes: >=200 mg/dL plus symp toms Specimen Anatomical Collection Method Collection Time Receive d Time (Source) Location / / Volume Laterality Blood specimen 04/24/2011 6:35 PM 012 6:44 (specimen) EDT PM EDT Resulting Agency Comment Spec In Lab Xiao Chaudhary MD CHEMISTRY ORDERABLES Performing Organization Address City/[facility]/ZIP Code Phon e Number [address] CERNER MILLENNIUM Creatinine, serum (04/24/2011 6:35 PM EDT) athologist Signature Creatinine 0.72 0.70 - CERNER 1.20 mg/dL MILLENNIUM Estimated GFR >60 >=60 CERNER MILLENNIUM Comment: The National Kidney Disease Education Pr ogram (NKDEP) has recommended all laboratories report estimated GFR (eGFR) along with plasma creatinine measurements to assist you with recognit ion of early kidney disease. Caveats: ??Plasma creatinine should be a t steady-state (unchanged within the past week). For patient s multiply eGFR by 1.2. The MDRD equation has not been validated for pedi atric patients and is only valid for patients with age >= 18 years. At present, NKDEP does NOT recommend usi ng the MDRD equation for drug dosing purposes and pharmacists should continue to use their current dosing methods. In addition, numerical eGFR values great er than 60 ml/min/1.73 square meters should be treated as > 60, and not an ex act number due to greater inaccuracies at these higher values. Per NKDEP, they classify normal renal function as any GFR >60ml/min/1.73 square meters; chronic kidney disease wh en GFR <60, and renal failure when GFR <15. ??This calculation may not be valid for patients with atypical muscle mass (very lean or obese), acute renal failur e, and in patients with diabetic kidney disease. References: http://nkdep.nih.gov/resources/NKDEP_Sug gestn4Labs_0606_508.pdf http://www.kidney.org/professionals/kls/ pdf/faq_gfr.pdf Specimen Anatomical Collection Method Collection Time Receive d Time (Source) Location / / Volume Laterality Blood specimen 04/24/2011 6:35 PM 012 6:44 (specimen) EDT PM EDT Resulting Agency Comment Spec In Lab Xiao Chaudhary MD CHEMISTRY ORDERABLES Performing Organization Address City/[facility]/ZIP Code Phon [place] [address] CERNER MILLENNIUM BUN (04/24/2011 6:35 PM EDT) P athologist Signature BUN 8 8 - 18 CERNER mg/dL MILLENNIUM Specimen Anatomical Collection Method Collection Time Receive d Time (Source) Location / / Volume Laterality Blood specimen 04/24/2011 6:35 PM 012 6:44 (specimen) EDT PM EDT Resulting Agency Comment Spec In Lab Xiao Chaudhary MD CHEMISTRY ORDERABLES Performing Organization Address City/[facility] Code Phon [place] Number [employer] [address] CERNER MILLENNIUM (ABNORMAL) Electrolytes panel (04/24/2011 6:35 PM EDT) P athologist Signature Sodium 139 135 - 145 CERNER mmol/L MILLENNIUM Potassium 3.3 (L) 3.5 - 5.0 CERNER mmol/L MILLENNIUM Comment: Please note: ??Patients with WBC >100,00 0 may have falsely elevated Potassium levels. ??For accurate Potassium quantif ication in these patients send serum separator tube (gold top) for subsequent determinations. ??Contact the Clinical Chemistry Laboratory if there are any qu estions. Chloride 105 98 - 107 mmol/L CERNER MILLENN IUM CO2 25 22 - 31 mmol/L CERNER MILLENNI UM Anion Gap 9 5 - 15 mmol/L CERNER MILLENNIU M Specimen Anatomical Collection Method Collection Time Receive d Time (Source) Location / / Volume Laterality Blood specimen 04/24/2011 6:35 PM 012 6:44 (specimen) EDT PM EDT Resulting Agency Comment Spec In Lab Xiao Chaudhary MD CHEMISTRY ORDERABLES Performing Organization Address City/[facility]/ZIP Code Phon e Number [place] [address] [facility] CBC (with Diff) (04/24/2011 6:35 PM EDT) P athologist Signature WBC 7.3 4.0 - 10.0 CERNER x10(3)/mcL MILLENNIUM RBC 4.42 3.93 - 5.22 CERNER x10(6)/mcL MILLENNIUM Hemoglobin 13.5 11.2 - 15.7 CERNER gm/dL MILLENNIUM Hematocrit 40.4 34.0 - 45.0 CERNER % MILLENNIUM MCV 91.4 79.0 - 94.0 CERNER fL MILLENNIUM MCH 30.5 26.6 - 32.2 CERNER pg MILLENNIUM MCHC 33.4 32.0 - 36.5 CERNER gm/dL MILLENNIUM Platelets 338 145 - 370 CERNER x10(3)/mcL MILLENNIUM RDWSD 41.7 35.0 - 46.0 CERNER fL MILLENNIUM RDWCV 12.5 10.9 - 14.4 CERNER % MILLENNIUM MPV 10.2 9.0 - 12.0 CERNER fL MILLENNIUM Specimen Anatomical Collection Method Collection Time Receive d Time (Source) Location / / Volume Laterality Blood specimen 04/24/2011 6:35 PM 012 6:44 (specimen) EDT PM EDT Resulting Agency Comment Spec In Lab Xiao Chaudhary MD HEMATOLOGY ORDERABLES Performing Organization Address City/[facility]/ZIP Code Phon [place] [address] [facility] EKG 12 Lead (04/24/2011 6:30 PM EDT) Component Value Ref Range Test Analysis Performed Pathologis t Method Time At Signature Ventricular rate 52 BPM MUSE SYSTEM Atrial Rate 52 BPM MUSE SYSTEM P-R Interval 136 ms MUSE SYSTEM QRS Duration 74 ms MUSE SYSTEM Q-T Interval 460 ms MUSE SYSTEM QTC Calculated 427 ms MUSE SYSTEM (Bezet) Calculated P Blaine 37 degrees MUSE SYSTEM Calculated R Blaine 73 degrees MUSE SYSTEM Calculated T Blaine 55 degrees MUSE SYSTEM INTERPRETATION Sinus bradycardia with sinus arrhythmia MUSE SYSTEM Otherwise normal ECG When compared with ECG of 23-APR-2011 16:37, No significant change was found Confirmed by MD Tommy, Jack ([id number]) on 04/25/2011 9:35:24 AM Specimen Anatomical Collection Method Collection Time Receive d Time (Source) Location / / Volume Laterality 04/24/2011 6:30 PM 2 9:35 EDT AM EDT Xiao Chaudhary MD ECG ORDERABLES Performing Organization Address City/State/ZIP Code Phon e Number MUSE SYSTEM documented in this encounter Visit Diagnoses Diagnosis Syncope Syncope and collapse Hypothyroidism Unspecified hypothyroidism documented in this encounter Administered Medications Inactive Administered Medications - up to 3 most recent administrations Medication Order MAR Action Action Date Dose Rate Site sodium chloride 0.9% 1,000 mL IV Given 04/24/2011 6:30 PM EDT 1 L bolus 1 L, Intravenous, ONCE, 1 dose, On Sun04/24/11 at 1845 documented in this encounter Active and Recently Administered Medications Times are shown in EDT. Scheduled Medication Order 04/22/2011 04/23/2011 04/24/2011 sodium chloride 0.9% 1,000 mL IV bolus (COMPLETED) 1830 (Given - Provider: Deya Marques RN) 1 L, Intravenous, ONCE, 1 dose, Sun04/24/11 at 1845 documented in this encounter Care Teams Motorized Squad Sergeant Relationship Specialty Start Date End Date None PCP - General 12/28/09 07/25/11 None documented as of this encounter
--- OUTSIDE RECORDS SUMMARY | 2021-10-20 08:01 | XMS_ITS | Encounter Summary ---
:1985 [place] [address] Care Team Providers Name Role Phone None Primary Care Provider Unavailable Encounter Details Date Type Department Care Team Description 05/03/2011 Telephone Endocrinology at [facility] C Janelle Higuera, [facility] [place] [address] ENDOCRINOLOGY DEPT. [phone] [place], [place] [address] (Wo rk) Social History Tobacco [...] this encounter Miscellaneous Notes Telephone Encounter - Janelle Higuera RN - 05/22/2011 4:37 PM EDT Opened in error documented in this encounter Plan of Treatment Not on filedocumented as of this encounter Visit Diagnoses Not on filedocumented in this encounter Care Teams Champion [employer]ustainable [employer] Relationship Specialty Start Date End Date None PCP - General 12/28/09 07/25/11 None documented as of this encounter
--- OUTSIDE RECORDS SUMMARY | 2021-10-20 08:01 | XMS_ITS | Encounter Summary ---
:1985 [place] [address] Care Team Providers Name Role Phone None Primary Care Provider Unavailable Encounter Details Date Type Department Care Team Description 12/01/2009 Orders Only Lab [facility] Sherry Fletcher MD [facility] Celia gutierrez OBSTETRICS & [place] [address] [place] [address] [phone] (Wo rk) Social History Tobacco Use Types Packs/Day Years Used Date Never Assessed Sex Assigned at Date Recorded Female 04/13/2020 8:26 AM EST documented as of this encounter Plan of Treatment Not on filedocumented as of this encounter Procedures Procedure Name Priority Date/Time Associated Diagnosis Comme nts SURGICAL PATHOLOGY Routine 12/01/2009 5:51 PM Res ults for this REPORT EDT procedure are i n the results section. documented in this encounter Results PATHOLOGY SURGICAL PATHOLOGY FINAL REPORT (12/01/2009 5:51 PM EDT) Component Value Ref Test Analysis Performed At [facility] Range Method Time Signature Surgical CERNER Pathology ? [facility] Report ? Provider: ?? SHERRY FAJARDO ? Pt. Name: ?? SHIRLENE GUZMAN ? Acc #: ?[id number] ?Pt. MRN: ?[id number] ? Col Date: ?? 12/02/19 10 ?/Sex: ?1985,(24 years),Female ? Rec Date: ?? 12/01/2009 ?LOC: ?5L ? SURGICAL PATHOLOGY ? ---Pathologic Diagnosis--- ? Endometrial biopsy: ?1. Fragments of benign proliferative endometrium intermixed ? benign endocervical glands, and blood clot. ?2. No evidence of malignncy, hyperplasia or endo metritis. ?3. No villi or d ecidual tissue (products of conception) identified. ? CR-0 ? 12/03/09 ? LJT ? 12/03/09 Verified by: ? Claudy NAPOLES, Brianna Dumas ? Pathologist ? (Electronic Si gnature) ? The attending pathologist whose signature appears o n this report has ? reviewed all diagnostic slides and has edited the david ss and/or ? microscopic portion of the report in rendering the fi nal pathologic ? diagnosis. ? ---Microscopic Description--- ? Slides reviewed, microscopic description not recorded . ? ---Gross Description--- ? Labeled/Fixative: ? Endo, formalin. ? Qty/Size/Weight: ?Fragments, 3 x 2 x 2 cm. ? Tissue Description: ?? Soft, red tissues. ? Sections/Processing: ??(T9) ??aje/SNS ? ---Clinical Information--- ? Specimen Submitted: ? A - Endometrium curetting - ? RPOC ? Clinical History: ? RPOC ? Clinical Diagnosis: ? S/P miscarriage bleeding RPOC Specimen (Source) Anatomical Collection Method Collection Time Re ceived Time Location / / Volume Laterality 12/01/2009 5:51 PM EDT Sherry Fajardo MD PATHOLOGY/CYTOLOGY ORDERABLE S Performing Organization Address City/State/[place] [address] [facility] documented in this encounter Visit Diagnoses Not on filedocumented in this encounter Care Teams Service Agent Relationship Specialty Start Date End Date None PCP - General 12/28/09 07/25/11 None documented as of this encounter
--- OUTSIDE RECORDS SUMMARY | 2021-10-20 08:01 | XMS_ITS | Encounter Summary ---
:1985 Author Organization [facility] [place] [address] Care Team Providers Name Role Phone Genet Holland Primary Care Provider Encounter Details Date Type Department Care Team Description 10/23/2006 Interpretation Only [facility] Unknown [address] [place] [id number] Social History Tobacco Use Types Packs/Day Years Used Date Never Assessed Sex Assigned at Date Recorded Female 04/13/2020 8:26 AM EST documented as of this encounter Plan of Treatment Not on filedocumented as of this encounter Procedures Procedure Name Priority Date/Time Associated Diagnosis Comme nts CT ABDOMEN AND Routine 10/23/2006 7:16 AM Results for this PELVIS WO CONTRAST EDT procedure are in the results section. documented in this encounter Results CT Abdomen & Pelvis wo Contrast (10/23/2006 7:16 AM EDT) Anatomical Region Laterality Modality Abdomen, Pelvis Computed Tomography Specimen (Source) Anatomical Collection Method Collection Time Re ceived Time Location / / Volume Laterality 10/23/2006 7:16 AM EDT Narrative 10/23/2006 7:16 AM EDT NL Historical Result Principal Account Support Analyst: ??ELISABETH ??HANSBERR Y CT of the abdomen and pelvis was perform ed without oral or intravenous contrast, following the renal stone protocol. ??Lung bases are c lear. ??The patient was scanned prone, following the protocol for renal stone. ??Unenhanced i mages of the liver, gallbladder, liver, spleen, adrenals, kidneys and pancreas are unrem arkable. ??There is a paucity of intraabdominal fat. ?? There are no renal stones. ??No hydronep hrosis. ?? The uterus is unremarkable. ??There is a 2.6 x 1.6 centimeter left adnexal cyst likely representing ovarian cyst. ??Evaluation of bowel limited without contrast. ??No definite free pelvic fluid or free abdominal fluid. ?? No stones seen along the portion of the ureters and no stones within the bladder. ?? IMPRESSION: No renal calculi or hydronephrosis. ??Ev aluation of bowel and solid organs is limited without oral and intravenous contrast. ??There a ppears to be a 2.6 centimeter left ovarian cyst. This would be better evaluated sonographicall y. ??Results called to Dr. Moeller 10/23/06. ?? Electronically Signed By: VICENTE FERRARA Procedure Note Unknown - 12/12/2019Formatting of this n ote might be different from the original. [facility] Historical Result Principal Account Support Analyst: ELISABETH FERRARA CT of the abdomen and pelvis was perform ed without oral or intravenous contrast, following the renal stone protocol. Lung bases are ruma ar. The patient was scanned prone, following the protocol for renal stone. Unenhanced hazel ges of the liver, gallbladder, liver, spleen, adrenals, kidneys and pancreas are unrem arkable. There is a paucity of intraabdominal fat. There are no renal stones. No hydronephr osis. The uterus is unremarkable. There is a 2 .6 x 1.6 centimeter left adnexal cyst likely representing ovarian cyst. Evaluation of bowel limited without contrast. No definite free pelvic fluid or free abdominal fluid. No stones seen along the portion of the ureters and no stones within the bladder. IMPRESSION: No renal calculi or hydronephrosis. Eval uation of bowel and solid organs is limited without oral and intravenous contrast. There laz ears to be a 2.6 centimeter left ovarian cyst. This would be better evaluated sonographicall y. Results called to Dr. Moeller 10/23/06. Electronically Signed By: VICENTE FERRARA Unknown IMG CT ORDERABLES documented in this encounter Visit Diagnoses Not on filedocumented in this encounter Care Teams Mold Filler Relationship Specialty Start Date End Date Genet Holland PA PCP - General Family Medicine 02/06/19 05/15/20 [address] [place] [address] documented as of this encounter
--- OUTSIDE RECORDS SUMMARY | 2021-10-20 08:01 | XMS_ITS | Encounter Summary ---
:1985 [place] [address] Care Team Providers Name Role Phone None Primary Care Provider Unavailable Encounter Details Date Type Department Care Team Description 11/30/2009 Orders Only Lab [facility] Genet Segovia MD [facility] [place] [address] [place] [address] [phone] (Wo rk) Social History Tobacco Use Types Packs/Day Years Used Date Never Assessed Sex Assigned at Date Recorded Female 04/13/2020 8:26 AM EST documented as of this encounter Plan of Treatment Not on filedocumented as of this encounter Procedures Procedure Name Priority Date/Time Associated Comments Diagnosis ABO/RH TYPING Routine 11/30/2009 4:49 PM Results for this EDT procedure are i n the results section. ANTIBODY SCREEN Routine 11/30/2009 4:49 PM Result s for this EDT procedure are i n the results section. DIFFERENTIAL, STAT 11/30/2009 4:20 PM Results for this AUTOMATED EDT procedure are i n the results section. CBC (WITH DIFF) STAT 11/30/2009 4:20 PM Result s for this EDT procedure are i n the results section. BETA HCG, STAT 11/30/2009 4:20 PM Results f or this QUANTITATIVE EDT procedure are i n the results section. documented in this encounter Results REFLEX LAB-ANTIBODY SCREEN (11/30/2009 4:49 PM EDT) Analysis Performed At [facility] Time Signature Ab [facility] [id number] [facility] 2358 on: [facility] Specimen Anatomical Collection Method Collection Time Receive d Time (Source) Location / / Volume Laterality Blood specimen 11/30/2009 4:49 PM 010 4:49 (specimen) EDT PM EDT Genet Smith MD BLOOD BANK ORDERABLES Performing Organization Address [facility]/ZIP Code Phon e Number [address] [facility] REFLEX LAB-ABO/RH (11/30/2009 4:49 PM EDT) athologist Signature ABORh Type A Pos [facility] Specimen Anatomical Collection Method Collection Time Receive d Time (Source) Location / / Volume Laterality Blood specimen 11/30/2009 4:49 PM 010 4:49 (specimen) EDT PM EDT Genet Smith MD BLOOD BANK ORDERABLES Performing Organization Address City/[facility]/ZIP Code Phon e Number [address] [facility] HCG, QUANTITATIVE, (11/30/2009 4:20 PM EDT) P athologist Signature Beta hCG Quant <1 mlU/ML [facility] Comment: REFERENCE RANGES NON- FEMALE: ??Less than 5 mIU/m L POSTMENOPAUSAL FEMALE: ??Less than 8 mIU /mL ? -- FEMALES -- Weeks of ? HCG range ??(mIU/mLg) ? 3 weeks ? 5.8 - 71.2 [...] Location / / Volume Laterality Blood specimen 11/30/2009 4:20 PM 010 4:47 (specimen) EDT PM EDT Genet Smith MD CHEMISTRY ORDERABLES Performing Organization Address City/State/[place] [address] CERNER MILLENNIUM (ABNORMAL) REFLEX LAB-A-DIFF (11/30/2009 4:20 PM EDT) [facility] gist Method Time Signature Neutrophils % 64.9 34.0 - CERNER 71.0 % MILLENNIUM Neutr Abs (ANC) 6.74 (H) 1.50 - CERNER 6.30 MILLENNIUM x10(3)/mc L Lymphocytes % 24.2 19.0 - CERNER 53.0 % MILLENNIUM Lymphocytes Abs 2.5 1.0 - 3.6 CERNER x10(3)/mc MILLENNIUM L Monocytes % 8.8 4.0 - CERNER 13.0 % MILLENNIUM Monocyte Abs 0.9 0.2 - 1.0 CERNER x10(3)/mc MILLENNIUM L Eosinophils % 0.7 0.0 - 7.0 CERNER % MILLENNIUM Eosinophils Abs 0.1 0.0 - 0.5 CERNER x10(3)/mc MILLENNIUM L Basophils % 1.0 0.0 - 2.0 CERNER % MILLENNIUM Basophils Abs 0.1 0.0 - 0.2 CERNER x10(3)/mc MILLENNIUM L Immature Gran % 0.40 0.00 - CERNER 0.66 % MILLENNIUM Comment: Immature granulocytes(IG's)percentage an d absolute count will include metamyelocytes, myelocytes, and promyelo cytes. Blood smears from CBC's yielding IG's will be scanned manually for concor dance. If this scan disagrees with the automated IG or if promyelocytes are not ed, a manual differential will be performed. Ayah Gran Abs 0.04 0.00 - 0.05 x10(3)/mcL CER NER MILLENNIUM Specimen Anatomical Collection Method Collection Time Receive d Time (Source) Location / / Volume Laterality Blood specimen 11/30/2009 4:20 PM 010 4:47 (specimen) EDT PM EDT Genet Smith MD HEMATOLOGY ORDERABLES Performing Organization Address City/[facility]/[place] [address] CERNER MILLENNIUM (ABNORMAL) CBC (11/30/2009 4:20 PM EDT) P athologist Signature WBC 10.4 (H) 4.0 - 10.0 CERNER x10(3)/mcL MILLENNIUM RBC 4.57 3.93 - CERNER 5.22 MILLENNIUM x10(6)/mcL Hemoglobin 14.5 11.2 - CERNER 15.7 gm/dL MILLENNIUM Hematocrit 43.9 34.0 - CERNER 45.0 % MILLENNIUM MCV 96.1 (H) 79.0 - CERNER 94.0 fL MILLENNIUM MCH 31.7 26.6 - CERNER 32.2 pg MILLENNIUM MCHC 33.0 32.0 - CERNER 36.5 gm/dL MILLENNIUM Platelets 280 145 - 370 CERNER x10(3)/mcL MILLENNIUM RDWSD 44.9 35.0 - CERNER 46.0 fL MILLENNIUM RDWCV 12.9 10.9 - CERNER 14.4 % MILLENNIUM MPV 10.6 9.0 - 12.0 CERNER fL MILLENNIUM Specimen Anatomical Collection Method Collection Time Receive d Time (Source) Location / / Volume Laterality Blood specimen 11/30/2009 4:20 PM 010 4:47 (specimen) EDT PM EDT Genet Smith MD HEMATOLOGY ORDERABLES Performing Organization Address City/State/[place] [address] CERNER MILLENNIUM documented in this encounter Visit Diagnoses Not on filedocumented in this encounter Care Teams Airworthiness Safety Inspector Relationship Specialty Start Date End Date None PCP - General 12/28/09 07/25/11 None documented as of this encounter
--- OUTSIDE RECORDS SUMMARY | 2021-10-20 08:01 | XMS_ITS | Encounter Summary ---
:1985 Author Organization [facility] [place] [address] Care Team Providers Name Role Phone None Primary Care Provider Unavailable Reason for Referral Consultation (Urgent) - Declined by Provider Specialty Diagnoses / Procedures Referred By Contact Refer red To Contact Internal Medicine Cristiane Richard MD [address] [place] [address] [place] [address] Fax: Referral ID Status Reason Start Expiration Visits Visits Date Date Requested Authorized Declined by Assume 04/29/2011 10/26/2011 1 1 Provider Subset of Care Reason for Visit Reason Comments Dizziness Encounter Details Date Type Department Care Team Description 04/29/2011 Emergency Emergency Department Cristiane Richard, Syncope and collapse [facility] [place] [address] [place] [address] [phone] (Wo rk) Social History Tobacco Use Types [...] Sign Reading Time Taken Comments Blood Pressure 120/77 04/29/2011 5:43 PM EDT Pulse 87 04/29/2011 5:43 PM EDT Temperature 37 ??C (98.6 ??F) 04/29/2011 5:43 PM EDT Respiratory Rate 21 04/29/2011 5:43 PM EDT Oxygen Saturation 97% 04/29/2011 5:43 PM EDT Inhaled Oxygen Concentration - - Weight - - Height - - Body Mass Index - - documented in this encounter Discharge Instructions Discharge InstructionsKwadwo Baron - 04/29/2011 5:27 PM EDT The patient should set up follow up apt with general internal medicine. You will be called regardingscheduling of the appointment. The patient should return the Holter monitor to your primary care physician so that the results can be reviewed. The patient should follow up to echocardiogram. You will be called to schedule the appointment. The patient should return to the emergency department if she experiences fall with trauma, persistent chest pain, persistent palpitations or other concerns. AttachmentsThe following attachments cannot be sent through Care Everywhere. FAINTING: AFTER YOUR VISIT (CHINESE)documented in this encounter Medications at Time of [...] daily. Hypothyroidism documented as of this encounter ED Notes Sylvia Dudley RN - 04/29/2011 5:30 PM EDT Monitor unchanged, NSR. Discharge instructions reviewed. She is encouraged to follow up this time. Cristiane Richard MD - 04/29/2011 5:22 PM EDT Chief Complaint Patient presents with ??? Dizziness HPI The patient is a 25-year-old woman who comes to the emergency department with a syncopal episode. She has a history of Hodgkin's lymphoma which has been in remission since 2002 and was treated with doxorubicin vincristine. She also has a history of polysubstance abuse and peripheral neuropathy and radiation induced hypothyroidism. She comes in because of continued episodes of syncope. She states thatshe has had syncopal episodes since the age of 17 but they were previously always associated with marijuana use. Approximately 3 weeks ago she started having syncopal episodes that were not associated with marijuana use. She states that she was undergoing drug detoxification at [facility] but was released from [facility] because they were concerned about the episodes. She was evaluated in this emergency department approximately a week ago and had extensive lab work including a TSH a CBC chemistries and LFTs. She had a low potassium but otherwise her lab work was unremarkable. She had a normal EKG. She was evaluated by neurology and they felt that these episodes were consistent with vasovagal syncope. They recommended a Holter monitor and an echocardiogram both of which were ordered. The patient went home with a Holter monitor but never turned it. Her echocardiogram was canceled and the computer and she did have her followup for that although I'm not sure why. She states at the syncopal episodes happen sometimes when she is laying sometimes when she is sitting and sometimes when she is walking. She has a prodrome which includes tingling in her face and extremities and lightheadedness. She loses consciousness for a brief period of time and then wakes up feeling great. She has no postictal phase and no incontinence. She did fall and hit her head a week ago and had evaluation for that during her last visit as well. She comes in today because she is continuing to have episodes which are more frequent and have a shorter prodrome and she sometimes has palpitations associated with them. Essentially the reason she came today however was to get a note so that she can return to [facility] saying that she is medically cleared to go back to detox. She's had no chest pain. She's had no changein her neuropathy in her lower Colleen's. She's currently using cocaine, heroine, Percocet and other things which she cannot identify. She does have a history of hypothyroidism and is not taking her thyroid supplementation however her last TSH was normal one week ago. She has no fevers chills or Reiger's. She has no diaphoresis shortness of breath or chest pain. She has no abdominal pain. She's had nochange in her bowel habits but does have a history of IBS. She's had no urinary symptoms. Last dose her period was one week ago. She's not taking any medications currently. Allergies Allergen Reactions ??? Duloxetine Hcl ??? Varenicline Tartrate Nausea/Vomiting Review of Systems Constitutional: Negative for fever, chills and fatigue. HENT: Negative for congestion, sore throat, rhinorrhea and neck pain. Eyes: Negative for pain and redness. Respiratory: Negative for cough, chest tightness and shortness of breath. Cardiovascular: Positive for palpitations. Negative for chest pain and leg swelling. Gastrointestinal: Negative for nausea, vomiting, abdominal pain, diarrhea, blood in stool and abdominal distention. Genitourinary: Negative for dysuria, urgency, frequency, vaginal bleeding and menstrual problem. Musculoskeletal: Negative for myalgias and arthralgias. Skin: Negative for rash and wound. Neurological: Positive for dizziness, syncope and light-headedness. Negative for tremors, seizures, facial asymmetry, speech difficulty, weakness, numbness and headaches. Psychiatric/Behavioral: Negative for confusion and agitation. Physical Exam Nursing note and vitals reviewed. Constitutional: She is oriented to person, place, and time. She appears well- developed and well-nourished. No distress. HENT: Head: Normocephalic and atraumatic. Right Ear: External ear normal. Left Ear: External ear normal. Nose: Nose normal. Mouth/Throat: Oropharynx is clear and moist. No oropharyngeal exudate. Eyes: Conjunctivae and EOM are normal. Pupils are equal, round, and reactive to light. Right eye exhibits no discharge. Left eye exhibits no discharge. No scleral icterus. Neck: Normal range of motion. Neck supple. No JVD present. No tracheal deviation present. Cardiovascular: Normal rate, regular rhythm, normal heart sounds and intact distal pulses. Exam reveals no gallop and no friction rub. No murmur heard. Pulmonary/Chest: Effort normal and breath sounds normal. No stridor. No respiratory distress. She has no wheezes. She has no rales. She exhibits no tenderness. Abdominal: Soft. Bowel sounds are normal. She exhibits no distension and no mass. No tenderness. Shehas no rebound and no guarding. Musculoskeletal: Normal range of motion. She exhibits no edema. Neurological: She is alert and oriented to person, place, and time. She has normal strength. No cranial nerve deficit or sensory deficit. GCS eye subscore is 4. GCS verbal subscore is 5. GCS motor subscore is 6. Skin: Skin is warm and dry. No rash noted. She is not diaphoretic. No erythema. No pallor. Psychiatric: She has a normal mood and affect. Her behavior is normal. Judgment and thought content normal. Procedures MDM ED Course: The patient an EKG today which showed normal sinus rhythm with no ST-T abnormalities and a QTC of 421. I reviewed her workup from her last visit and she had a normal TSH as well as a normal CBC. Her chemistries were remarkable only for a low potassium. She had a CT of her head and cervical spine whichwere normal. She was I would by neurology who felt that these episodes were consistent with vasovagal syncope and recommended echo and Holter. She is to return her Holter for evaluation and I scheduledher again for outpatient echo as well as for followup to establish care with a primary care physician internal internal medicine. The patient revealed that the end of her visit that she really just wanted a letter from [facility] so that he would let her back into detox. I did provide her with a letter stating that she is medically. Cleared to go to detox but has a history of recurrent syncope and may have another syncopal episode. I have told her that she should lay down immediately if she develops any lightheadedness for the prodrome that she usually gets to avoid falling and injuring herself. She should return if she has chest pain, shortness of breath or any other concerns. Otherwise she should followup with general internal medicine. Cristiane Richard MD 04/29/11 [id number] Sylvia Dudley RN - 04/29/2011 4:36 PM EDT Patient was seen here on 04/23/11 for the same thing, Syncope. See today's triage note. Apparently patient hasn't been able to be cleared to return to rehab as she left here prior to her care being completed. She admits to taking Percocet's yesterday and shooting cocaine and heroin on along with Suboxone and Percocet's. In addition she hasn't had any of her routine medications. She has been staying with a friend's family. She is in NSR. Her lungs sound clear. She had some difficulty with constipation but took some MOM and had a BM yesterday. Abdomin is flat, BS+, non tender. Urine looks clear. documented in this encounter Miscellaneous Notes Discharge Summary - Provider, Scanning - 05/01/2011 9:38 AM EDT Miscellaneous - Provider, Scanning - 04/29/2011 4:42 PM EDT ED Triage - Sylvain Quintanilla RN - 04/29/2011 3:31 PM EDT Pt arrives to the ED with c/o syncopal episodes, pt states that she had 1 in the night and 2 in the am, pt c/o headache, denies any nausea or vomiting, also c/o feeling lightheaded, dizzy, and tinglingto her extremities. Pt appears in NAD, alert and oriented x3, skin warm pink and dry, ambulatory to triage with steady gait noted, texting on cell phone during triage. documented in this encounter Plan of Treatment Scheduled Referrals Name Type Priority Associated Diagnoses Order S chedule REFERRAL TO Outpatient Referral Routine Ordered: GENERAL INTERNAL 04/29/2011 MEDICINE documented as of this encounter Procedures Procedure Name Priority Date/Time Associated Diagnosis Comme nts EKG 12-LEAD STAT 04/29/2011 4:48 PM Results f or this EDT procedure are i n the results section . documented in this encounter Results EKG 12 Lead (04/29/2011 4:48 PM EDT) Component Value Ref Range Test Analysis Performed Pathologis t Method Time At Signature Ventricular rate 74 BPM MUSE SYSTEM Atrial Rate 74 BPM MUSE SYSTEM P-R Interval 134 ms MUSE SYSTEM QRS Duration 80 ms MUSE SYSTEM Q-T Interval 380 ms MUSE SYSTEM QTC Calculated 421 ms MUSE SYSTEM (Bezet) Calculated P [place] 43 degrees MUSE SYSTEM Calculated R [place] 76 degrees MUSE SYSTEM Calculated T [place] 59 degrees MUSE SYSTEM INTERPRETATION Normal sinus rhythm with sinus arrhythmia MUSE SYSTEM Normal ECG When compared with ECG of 24-APR-2011 18:30, Nonspecific T wave abnormality no longer evident in Anterior leads Confirmed by STEPHIE GOLDBERG M.D. ([id number]) on 04/29/2011 10:39: 55 PM Specimen Anatomical Collection Method Collection Time Receive d Time (Source) Location / / Volume Laterality 04/29/2011 4:48 PM 2 EDT 10:39 PM EDT Tommy Markham Jr., MD ECG ORDERABLES Performing Organization Address City/State/ZIP Code Phon e Number MUSE SYSTEM documented in this encounter Visit Diagnoses Diagnosis Syncope and collapse Polysubstance abuse Other, mixed, or unspecified nondependen t drug abuse, unspecified documented in this encounter Care Teams Resident Doctor Relationship Specialty Start Date End Date None PCP - General 12/28/09 07/25/11 None documented as of this encounter
--- OUTSIDE RECORDS SUMMARY | 2021-10-20 08:01 | XMS_ITS | Encounter Summary ---
:1985 Author Organization [facility] [place] [place] [address] Care Team Providers Name Role Phone None Primary Care Provider Unavailable Reason for Visit Reason Comments Follow-up Lymphoma History of hodgkin lymphoma Encounter Details Date Type Department Care Team Description 06/15/2010 Hospital Encounter Pediatric Oncology Elena Marrero R adiation- induced hypothyroidism; at [facility] Smoking [facility] [address] [place] [facility] [id number] HEMATOLOGY/ONCOL [phone] [place] [address] Social History Tobacco Use Types Packs/Day Years Used Date Current Every Day Smoker 0.5 Tobacco Cessation: Ready to Quit: Yes; C ounseling Given: Yes Comments: Shirlene says that she has tried and would like to try again. Alcohol Use Standard Drinks/Week Comments Yes 0 (1 standard drink = 0.6 oz pure alcoho l) Sex Assigned at Date Recorded Female 04/13/2020 8:26 AM EST documented as of this encounter Last Filed Vital Signs Vital Sign Reading Time Taken Comments Blood Pressure 116/67 06/15/2010 2:38 PM EDT Pulse 83 06/15/2010 2:38 PM EDT Temperature 36.6 ??C (97.9 ??F) 06/15/2010 2:38 PM EDT Respiratory Rate 16 06/15/2010 2:38 PM EDT Oxygen Saturation - - Inhaled Oxygen Concentration - - Weight 65 kg (143 lb 4.8 oz) 06/15/2010 2:38 PM EDT Height 172.5 cm (5' 7.91) 06/15/2010 2:38 PM EDT Body Mass Index 21.84 06/15/2010 2:38 PM EDT documented in this encounter Medications at Time of Discharge Medication Sig Dispensed Refills Start Date End Date levothyroxine (SYNTHROID) 75 MCG = 1 0 12/01/2009 06/27/2010 75 mcg tablet Tablet(s), PO, Once daily documented as of this encounter Progress Notes Elena Marrero MD - 07/04/2010 2:05 PM EDT Pediatric Oncology Long-Term Follow-Up Clinic Encounter date: 06/15/2010 Subjective/Events: Shirlene is a 24 year old young woman who is being seen in follow-up for her Hodgkin Lymphoma. Shirlene was last seen on 04/14/2009. Shirlene is by herself. Shirelne is currently in a relationship with a woman whom she calls her . The relationship is atleast of a couple of months duration. Shirlene has moved to [place] to live with this woman. She appears to want to transfer her care to the [place] area, although she says she likes Dr. Corbin andwould like to continue to be followed here for hypothyroidism. 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 She says she likes this work very much. Her partner and some of their clients drove with Shirlene today and have gone to the cafeteria. Shirlene is also looking for work in a salon. Shirlene denies any significant medical event since she was last seen except for a MRSA infection involving her buttock for which she was seen and managed elsewhere. She does not remember how she was treated. In reviewing the notes available in [facility] Shirlene has been seen or interacted with Dr. Corbin and his office on multiple occasions. She was seen by [employer] and in the ED for heavy menses. She reported left neck pain and difficulty swallowing and was seen by Speech. A swallow study showed: Mild pharyngeal dysphagia characterized by sluggish laryngeal elevation, severely reduced hyolaryngeal excursion resulting in one episode of aspiration of thin liquid. Pt's swallow is well compensated. Although hyolaryngeal excursion is severely reduced (a common result of radiation), laryngeal elevation is sustained, which serves to compensate for inadequate airwayprotection. When the pt tilted her chin upward during the A-P swallow, this limited the ROM for laryngeal elevation, which reduced the amount of airway protection for the patient, resulting in aspiration. Shirlene has not taken her levothyroxine for possibly as long as a month. She apparently ran out and did not obtain a refill. This had something to do with moving to [place]. She does report some fatigue, some worsening of her constipation, both of which have occurred in the past which she had not taken her levothyroxine for a long period of time. Shirlene reports that she is still smoking but wants to stop. She has tried medication in the past andit has not worked. She denies drug use. She drinks alcohol on occasion. She wears her seatbelt. ROS: No weight loss, fever, night sweats. Some fatigue. No changes in vision, changes in hearing, ear pain, rhinorrhea, mouth sores, sore throat, changes invoice quality No chest pain or palpitations No wheezing, SOB, cough, or difficulty breathing. No N/V/D. No abdominal pain. Constipation as noted above. No dysuria, hematuria, frequency, or urgency. No change in gait or strength. No rash. No significant bruising. No tingling of fingers or toes, changes in coordination, balance or gait. Oncologic PMH: Diagnosis: Hodgkin Lymphoma Stage: IIa Date: 02/11/02 [...] disease. Treatment: Chemotherapy and radiation therapy Facility: [facility] ([place], [place]) Protocol: JOE-HD-90; 2 cycles OPPA, 2 cycles LEROY, PET negative after 2 cycles of OPPA Completed: 07/14/02 Chemotherapy: Cyclophosphamide (2 grams/m2) Doxorubicin (cumulative dose 160 mg/m2) Prednisone Procarbazine Vincristine Radiation: Fractionated radiation therapy at 1.8 Gy per fraction for 12 fractions to a total dose of21.6 Gy using AP/PA lin that included the neck and upper mediastinum. Surgery: [facility] placement 02/13/02, removal 07/27/03 Monitorin04/09/07 echocardiogram normal Medical PMH: Hypothyroidism as above. H/o drug abuse and depression. GERD for which she takes prevacid. Irritable bowel. She had asthma as a young child. Medications: Lansoprazole Levothyroxine 75 mcg daily Norgestimate-ethinyl estradiol daily Allergies: Cymbalta Chantix FH: Maternal grandmother had breast cancer in her 50s. No recent changes. SH: As above. Physical Exam: General: Alert, talkative, in NAD except when discussed late effects and became tearful HEENT: W/o oral lesions, w/o scleral or conjunctival lesions, w/o nasal discharge, nl TMs Neck: supple, no thyromegaly Nodes: W/o significant adenopathy Lungs: Clear Chest: Declined breast exam, Shirlene reports doing regular breast exams Lungs: Clear CV: RRR Abd: Soft, nontender, -HSM or masses M/S: FROM, w/o pain Neuro: Nonfocal Derm: Clear Labs/Studies: Shirlene reported that she had had labs done with her MRSA infection. Assessment: Shirlene is a 24 year old with a history of Stage IIa Hodgkin Lymphoma for which she received chemotherapy and radiation therapy. She has been off therapy since 07/2002. Shirlene has no evidencefor disease recurrence by history or physical exam. Shirlene's only known late-effect from her previous therapy is hypothyroidism. She is currently not taking her levothyroxine but says that she will contact Dr. Corbin's office to get a new prescription. Shirlene continues to smoke, an activity which she knows can increase her risks for cardiac late effects. Shirlene's primary question for me was whether or not she could get . Discussed that there were two issues including infertility and cardiac issues during the end of the . Shirlene's chemotherapy which included cyclophosphamide and procarbazine. The cyclophosphamide cumulative dose is lower than that which is associated with a significantly increased risk of infertility. The procarbazinemay also increase risk of infertility. Shirlene apparently has a history of a miscarriage in 09/2009 and an episode of heavy bleeding in 11/14 which was apparently preceded by a positive test. Th is information was obtained from the medical record. This suggests that it is likely that Shirlene is fertile. Discussed with her that she was likely fertile but was at a risk for premature menopause with more rapid loss of ova during chemotherapy. Discussed that her exposure to doxorubicin puts her at risk for cardiomyopathy which can be unmasked during times of significant stress. Discussed that the third trimester of and the immediate peripartum period are times of significant cardiac stress. Discussed that it was a general recommendation for women who had received anthracyclines have an echocardiogram done in the third trimester. Discussed that her risk for cardiac toxicity in the future was a life long risk secondary to exposure to doxorubicin and to radiation. Discussed that radiation could cause premature coronary artery disease and could cause disease in vessels in neck with increased risk of stroke. Discussed that she hadthe opportunity to mitigate her risk by stopping smoking, maintaining her weight, eating a healthy diet. Shirlene said that she had not been able to stop smoking. Since she is in [place] I will contact colleagues there to see what is available for smoking cessation programs. Discussed risk of second malignancies which at this time are malignancies that can be attributed to radiation therapy which include thyroid cancer, sarcomas and skin cancer in the radiation field but most importantly, a life long risk of breast cancer from the radiation. Shirlene knew that she needs to do breast exams and that she should start screening by the age of 25 years. Screening may need to include both mammography and MRI. Discussed that Shirlene needed to establish primary care wherever she decides to live, that primary care can manage her routine screening in the future. Discussed that she is due a treatment summary which I will prepare and mail to her. Shirlene's past cancer therapy puts her at increased risk for the following late effects: Secondary Malignancy: Survivors who have had radiation therapy in the past are at risk for developing a secondary benign or malignant neoplasm, including bone and skin cancer, in the radiation field. For Shirlene, this also includes breast and thyroid cancer (see below). She should have the skin and soft tissue in and around the irradiated field inspected carefully. Breast Cancer: Shirlene???s mediastinal radiation therapy puts her at risk for developing breast cancer within the irradiated field. She should perform self- breast exams monthly and have a physician perform a breast exam at least yearly. Screening mammograms are recommended at age 25 years or 8 years after the completion of radiation therapy, whichever comes last. Shirlene should have her first screeningmammogram in 2013. Breast MRI has been recommended recently as an adjunct screening tool. Shirlene should have her first screening breast MRI in 2013. If she notices any lumps or changes in her breasts, images should be obtained sooner. Thyroid Cancer: Thyroid cancer may occur after radiation therapy to the neck. The risk is highest starting 5 years after irradiation. Shirlene should have a thorough thyroid exam yearly. Acute Myeloid Leukemia: Shirlene???s past chemotherapy puts her at increased risk for developing AML. Survivors are at highest risk within the first 10 years after completing therapy. Given Shirlene's chemotherapy her risk for AML is very small. She should be screened if she develops excessive fatigue, bleeding, bruising or petechiae. Bladder Malignancy: Cyclophosphamide puts a survivor at risk for developing bladder cancer. The doseof cyclophosphamide which she received is quite low. Shirlene's risk for developing bladder cancer is likely to be quite low. If Shirlene develops hematuria, urinary urgency or retention, dysuria or an abnormal urinary stream, she should be evaluated by a physician. Cardiac Toxicity: Doxorubicin has been shown to cause cardiomyopathy, arrhythmias, and subclinical left ventricular dysfunction. Radiation therapy may cause many forms of cardiac toxicity including congestive heart failure, cardiomyopathy, pericarditis, valvular disease, myocardial infarction, arrhythm ia and atherosclerotic heart disease. If Shirlene develops shortness of breath, orthopnea, chest pain,palpitations, exercise intolerance or new cardiac findings on exam, she should be evaluated urgentlyby a traveling clerk. Shirlene should be counseled against smoking cigarettes and using drugs such as cocaine and diet pills as these can increase the risk for developing cardiac toxicity. may puta woman at special risk for developing cardiac decompensation, so if Shirlene becomes in the future, she should see a traveling clerk during her . According to the [facility]???s Long-Term Follow-Up Guidelines, which are not evidenced based, screening echocardiograms should be obtained every 2 years. Realistically this depends on insurance coverage. Shirlene should have anechocardiogram during the third trimester of any . Given that she has had exposure to both anthracyclines and radiation screening echocardiograms every 2-5 years should be considered. Pulmonary Toxicity: Mediastinal radiation may lead to pulmonary fibrosis, interstitial pneumonitis, restrictive and obstructive lung disease. If Shirlene develops a persistent cough, shortness of breath,dyspnea on exertion or wheezing, she should be evaluated by a physician. If concerns arise, chest x-ray and pulmonary function tests may be indicated. She should never smoke cigarettes and should avoidSCUBA diving unless cleared by a greaser helper. Thyroid Nodules: Neck irradiation may cause thyroid nodules, so Shirlene should have a thyroid exam atleast yearly. Ultrasound or fine needle aspiration should be obtained for any palpable nodules. Breast Tissue Hypoplasia: Mediastinal radiation therapy may cause breast tissue hypoplasia. Again, Shirlene should have regular breast exams. Gonadal Dysfunction: Cyclophosphamide and procarbazine put a survivor at risk for premature menopause and infertility. Urinary Tract Toxicity: Exposure to cyclophosphamide puts a survivor at risk for developing hemorrhagic cystitis, bladder fibrosis, dysfunctional voiding, vesicoureteral reflux, and hydronephrosis. Given the low dose of cyclophosphamide this risk is likely low for Shirlene. If she develops hematuria, urinary urgency or retention, dysuria or an abnormal urinary stream, she should be evaluated by a physician. Annual screening urinalyses are recommended. Musculoskeletal Growth Problems: Radiation therapy may lead to hypoplasia, fibrosis, reduced or uneven growth as well as scoliosis and kyphosis. Shirlene should have a yearly spine exam. Osteopenia/Osteoporosis/Osteonecrosis: Chronic exposure to prednisone may cause thinning of the bones and avascular necrosis. Shirlene should consume adequate amounts of calcium and vitamin D and get regular physical activity to keep her bones healthy. Cataracts: Survivors who have received prednisone in the past are at risk for developing cataracts. Given the dose and length of exposure Shirlene's risk is likely to be low. She should have routine eye exams, and if concerns arise, be referred to Ophthalmology. Peripheral Sensory or Motor Neuropathy: Vincristine has been shown to cause areflexia, weakness, foot drop and paresthesias. Raynaud???s Phenomenon: Survivors who received vincristine in the past may develop vasospastic attacks of their hands, feet, nose, lips, cheeks or earlobes related to stress or cold temperatures. Shirlene should wear protective clothing in cold environments and avoid smoking cigarettes which also causesvasospasm. Dental Abnormalities: Radiation therapy may cause a host of dental problems such as tooth/root agenesis, periodontal disease, dental caries, malocclusion and TMJ dysfunction. The upper end of Shirlene's radiation field should not have included much of her jaw. Shirlene should have oral exams yearly and dental exams and cleanings every 6 months. Salivary Gland Dysfunction: Radiation to the neck may lead to salivary gland dysfunction and dry mouth. Moistening agents may be helpful, and good oral hygiene is necessary to prevent dental caries. Educational Issues: Any cancer experience may place a child at risk for developing problems at school. Close attention should be paid to how Shirlene is doing in school and work. Neuropsychiatric testingmay be indicated if problems arise. Mental Health Disorders: It has been shown that pediatric survivors of cancer are at risk for developing anxiety, depression, post-traumatic stress, social withdrawal and risk-taking behaviors. If Shirlene is feeling unusually sad or anxious, has a change in her sleep patterns or appetite or is having problems with peers, a physician should evaluate her. Today's Plan: -History and physical exam -Discussion re late effects as noted above. -Will try to find out about smoking cessations programs in the [facility] Follow-Up Plan: Primary care visits once a year - Shirlene to establish primary care. I will send this note to Dr. Ornelas since Shirlene frequently returns to the [facility] Screening mammogram and breast MRI recommended yearly starting in July 2012 Screening echocardiograms approximately every 2-5 years, next due around 2009 Shirlene to call with questions/concerns - Shirlene called to report that she did not have labs done when she had the MRSA infection. I asked her to call when she gets her next TSH done and will have labs done at the same time. CC: Russell Ornelas MD [address] [address] documented in this encounter Plan of Treatment Not on filedocumented as of this encounter Visit Diagnoses Diagnosis Radiation-induced hypothyroidism Other postablative hypothyroidism Smoking Tobacco use disorder documented in this encounter Care Teams Skilled Helper Relationship Specialty Start Date End Date None PCP - General 12/28/09 07/25/11 None documented as of this encounter
--- OUTSIDE RECORDS SUMMARY | 2021-10-20 08:01 | XMS_ITS | Encounter Summary ---
:1985 Author Organization [facility] [place] [address] Care Team Providers Name Role Phone Genet Holland Primary Care Provider Encounter Details Date Type Department Care Team Description 10/23/2006 Interpretation Only [facility] Unknown [address] [place] [id number] Social History Tobacco Use Types Packs/Day Years Used Date Never Assessed Sex Assigned at Date Recorded Female 04/13/2020 8:26 AM EST documented as of this encounter Plan of Treatment Not on filedocumented as of this encounter Procedures Procedure Name Priority Date/Time Associated Diagnosis Comme nts XR ABDOMEN ACUTE Routine 10/23/2006 6:03 AM Resul ts for this SERIES W PA CHEST EDT procedure are in the results section. documented in this encounter Results XR Abdomen Acute Series w PA Chest (10/23/2006 6:03 AM EDT) Anatomical Region Laterality Modality Abdomen, Chest N/A Radiographic Imaging Specimen (Source) Anatomical Collection Method Collection Time Re ceived Time Location / / Volume Laterality 10/23/2006 6:03 AM EDT Narrative 10/23/2006 6:03 AM EDT [facility] Historical Result Principal Computational Chemist: ??ELISABETH ??[place] Y Supine and upright views of the abdomen as well as frontal views of the chest were performed for a history of abdominal pain. ??There is air and stool throughout the colon. ??Pubic symphysis is not included in this study. ??There is mild curvature of the lumbar spine (concave to the left). ??This could be secondary to posi tioning, spasm or mild scoliosis. ??No abnormal calcifications identified. ??Visualized soft tissue planes are unremarkable. ??No free air. ??No abnormal air fluid levels or dilated loo ps of bowel. ?? Cardiomediastinal silhouette is normal. ??Pulmonary vasculature is unremarkable. ??No pleural effusions or airspace disease. ??Skeleto n is unremarkable. ??Spinal bifida occulta of S1 incidentally noted. ??This of doubtful c linical significance. ?? IMPRESSION: No etiologies for abdominal pain identif ied by plain film. ??Some mild curvature of the lumbar spine as described above. ?? Electronically Signed By: VICENTE FERRARA Procedure Note Unknown - 10/07/2019Formatting of this n ote might be different from the original. [facility] Historical Result Principal Computational Chemist: ELISABETH FERRARA Supine and upright views of the abdomen as well as frontal views of the chest were performed for a history of abdominal pain. There i s air and stool throughout the colon. Pubic symphysis is not included in this study. There is mild curvature of the lumbar spine (concave to the left). This could be secondary to positi oning, spasm or mild scoliosis. No abnormal calcifications identified. Visualized so ft tissue planes are unremarkable. No free air. No abnormal air fluid levels or dilated loo ps of bowel. Cardiomediastinal silhouette is normal. Pulmonary vasculature is unremarkable. No pleural effusions or airspace disease. Skeleton is unremarkable. Spinal bifida occulta of S1 incidentally noted. This of doubtful cli nical significance. IMPRESSION: No etiologies for abdominal pain identif ied by plain film. Some mild curvature of the lumbar spine as described above. Electronically Signed By: VICENTE FERRARA Unknown IMG DX ORDERABLES documented in this encounter Visit Diagnoses Not on filedocumented in this encounter Care Teams Ham Doctor Relationship Specialty Start Date End Date Genet Holland PA PCP - General Family Medicine 02/06/19 05/15/20 [address] [place] [address] documented as of this encounter
--- OUTSIDE RECORDS SUMMARY | 2021-10-20 08:01 | XMS_ITS | Encounter Summary ---
:1985 Author Organization [facility] [place] [address] Care Team Providers Name Role Phone None Primary Care Provider Unavailable Reason for Visit Reason Onset Date Comments Medication Refill 06/27/2010 Encounter Details Date Type Department Care Team Description 06/27/2010 Refill Endocrinology at [facility] Magdaleno Mcgee III, Hypothyroidism [facility] [place] [address] [facility] [phone] ENDOCRINOLOGY [place], [place] [address] (Wo rk) Social History Tobacco Use Types Packs/Day Years Used Date Never Assessed Sex Assigned at Date Recorded Female 04/13/2020 8:26 AM EST documented as of this encounter Plan of Treatment Not on filedocumented as of this encounter Visit Diagnoses Diagnosis Hypothyroidism Unspecified hypothyroidism documented in this encounter Care Teams Conical Mixer Relationship Specialty Start Date End Date None PCP - General 12/28/09 07/25/11 None documented as of this encounter
--- OUTSIDE RECORDS SUMMARY | 2021-10-20 08:01 | XMS_ITS | Encounter Summary ---
:1985 Author Organization [facility] [place] [address] Care Team Providers Name Role Phone None Primary Care Provider Unavailable Reason for Visit Reason Comments Follow-up Encounter Details Date Type Department Care Team Description 06/20/2011 Office Visit Endocrinology at [facility] Magdaleno Mcgee (Primary One [facility] Dennis HA MD Dx) [place] [address] CENTER [phone] [place] [address] Social History Tobacco Use Types Packs/Day Years [...] Sign Reading Time Taken Comments Blood Pressure 112/69 06/20/2011 3:44 PM EDT Pulse 66 06/20/2011 3:44 PM EDT Temperature - - Respiratory Rate - - Oxygen Saturation - - Inhaled Oxygen Concentration - - Weight 71.2 kg (157 lb) 06/20/2011 3:44 PM EDT Height 174 cm (5' 8.5) 06/20/2011 3:44 PM EDT Body Mass Index 23.52 06/20/2011 3:44 PM EDT documented in this encounter Progress Notes Magdaleno Corbin III, MD - 06/20/2011 4:48 PM EDT I saw Shirlene Kovacs in the Endocrinology clinic for follow-up of her thyroid status. She is on 150 mcg LT4, but she again is not taking it (x 2 weeks), and notes some symptoms referable to hypothyroidism. Complete review of systems is otherwise shows that she was recently in drug/alcohol rehabilitation, and was diagnosed with schizophrenia. She was on antipsychotic drugs, but stopped talking the, too. Although these made her feel ???funny?? , they were definitely helpful, and stopped the ???voices?? . She now wants help in being responsible with her health care, and is considering a suggestion that I made in the past that she find a local PCP who would supervidse observed taking of the thyroid pills (ie- 7 pills once per week, or 3-4 twice per week). On examination she was a pleasant woman who appeared well with HR 78 regular. There was no tremor orlid lag, and the reflexes were normal. Her tongue was normally papillated. She had no rash or edema,and the thyroid was not enlarged to palpation, smooth and firm. There was no adenopathy. Her lungs were clear, her skin showed normal pigment and texture, and there was no heart murmur. In summary, she is clinically euthyroid but is again off her medications, including T4 and antipsychotics. She is planning to reconnect with Dr. Field as a PCP, and I will ask that he contact me if he might be able to help with her compliance issues. We also discussed the ill effects of taking pow erful psychtropic drugs while substantially hypothyroid (with abnormally high levels accumulating inthe blood, and potential toxicity). I spoke with our Storage Garage Attendant, Terrence Dee, who agreed to help in referring her to [facility]. More than 17 of this 30 minute visit was spent in face to face counseling and discussing the implications of the diagnosis and potential therapeutic approaches. documented in this encounter Plan of Treatment Not on filedocumented as of this encounter Visit Diagnoses Diagnosis Hypothyroidism - Primary Unspecified hypothyroidism documented in this encounter Care Teams Control System Manager Relationship Specialty Start Date End Date None PCP - General 12/28/09 07/25/11 None documented as of this encounter
--- OUTSIDE RECORDS SUMMARY | 2021-10-20 08:01 | XMS_ITS | Encounter Summary ---
:1985 Author Organization [facility] [place] [address] Care Team Providers Name Role Phone None Primary Care Provider Unavailable Encounter Details Date Type Department Care Team Description 06/02/2010 Orders Only Pediatric Oncology a t [facility] Elena Marrero MD [facility] [place] [address] PEDIATRIC [phone] HEMATOLOGY/[place], [place] [address] (Wo rk) Social History Tobacco Use Types Packs/Day Years Used Date Never Assessed Sex Assigned at Date Recorded Female 04/13/2020 8:26 AM EST documented as of this encounter Plan of Treatment Not on filedocumented as of this encounter Visit Diagnoses Not on filedocumented in this encounter Care Teams Career Discovery Teacher Relationship Specialty Start Date End Date None PCP - General 12/28/09 07/25/11 None documented as of this encounter
--- OUTSIDE RECORDS SUMMARY | 2021-10-20 08:01 | XMS_ITS | Encounter Summary ---
:1985 [place] [address] Care Team Providers Name Role Phone None Primary Care Provider Unavailable Encounter Details Date Type Department Care Team Description 06/26/2011 Notes Only Care Management Terrence Cavanaugh, MANDI [facility] [place] [address] [facility] [phone] [place], [place] [address] (Wo rk) Social History Tobacco [...] documented as of this encounter Progress Notes Terrence Logan MSW - 06/26/2011 3:32 PM EDT Pt referred by on 06/19. T/c to pt that day to discuss psychosocial needs. Pt is a 26yo woman trying to cope with both chronic medical and psychiatric conditions. She has been having difficulty following through on medication recommendations. From discussion w/ Dr. Corbin, it appears pt would benefit from connecting with her local pending sale to [facility] and working w/ a case management coordinator there. Pt in agreement. Contact [facility] in [facility]. They require a referral from a potential client'sPCP in order to schedule an intake interview. Pt does not yet have a PCP. I learned that [facility] practice is accepting new patient (contacted PCP line x [phone]). Left VM for pt with this info instructing her to contact and set up appointment to establish care w/practice. She can then request referral to mental health center. documented in this encounter Plan of Treatment Not on filedocumented as of this encounter Visit Diagnoses Not on filedocumented in this encounter Care Teams Compliance Review Specialist Relationship Specialty Start Date End Date None PCP - General 12/28/09 07/25/11 None documented as of this encounter
--- OUTSIDE RECORDS SUMMARY | 2021-10-20 08:01 | XMS_ITS | Encounter Summary ---
:1985 Author Organization [facility] [place] [address] Care Team Providers Name Role Phone None Primary Care Provider Unavailable Reason for Visit Reason Onset Date Comments Other 06/27/2010 Encounter Details Date Type Department Care Team Description 06/27/2010 Telephone Endocrinology at [facility] Magdaleno Mcgee III, Other [facility] [place] [address] [facility] [phone] ENDOCRINOLOGY [address] [place]. [place] [id number] (Wo rk) Social History Tobacco Use Types Packs/Day Years Used Date Never Assessed Sex Assigned at Date Recorded Female 04/13/2020 8:26 AM EST documented as of this encounter Miscellaneous Notes Telephone Encounter - Carie Torres LPN - 06/27/2010 11:59 AM EDT Patient calls at which time following message was read to her. Patient agrees with plan of care. Rx prepared to be signed by Dr Shaquille Corbin, Magdaleno Collins III, MD - Shirlene Kovacs ','<More Detail >> From Magdaleno Corbin III, MD Sent Sunday June 27, 2010 10:51 AM To [facility] Nurse Cc [facility] Rx Subject Shirlene Kovacs Message CARIE TORRES LPN 06/27/10 09:32 AM Signed Patient calls asking when her appointment is with Dr Corbin. She states I need to cancel that. I know he doesn't like to see me if I haven't been taking my medications because he can't do the blood work. I need to be honest. I haven't take it for about 4 months and I am not feeling well. I am so tired and my whole body just doesn't feel good. When I lived with my mom she made sure I took my meds butI don't live with her any more. I don't have a doctor here yet either. But may be I am going to needto find one and go in twice a week to take my meds there. I also need a Rx to go to [facility] in [place], [place]. Forward to Dr Corbin for okay for Rx and to clarify if appointment should be canceled Yes, it is a easte of time so cancel, and yes, please FAX Rx for whatever dose of LT4 she has been on. Thanks, Bill Telephone Encounter - Carie Torrse LPN - 06/27/2010 9:32 AM EDT Patient calls asking when her appointment is with Dr Corbin. She states I need to cancel that. I know he doesn't like to see me if I haven't been taking my medications because he can't do the blood work. I need to be honest. I haven't take it for about 4 months and I am not feeling well. I am so tired and my whole body just doesn't feel good. When I lived with my mom she made sure I took my meds butI don't live with her any more. I don't have a doctor here yet either. But may be I am going to needto find one and go in twice a week to take my meds there. I also need a Rx to go to [facility] in [place], [place]. Forward to Dr Corbin for okay for Rx and to clarify if appointment should be canceled documented in this encounter Plan of Treatment Not on filedocumented as of this encounter Visit Diagnoses Not on filedocumented in this encounter Care Teams Radiographic Technologist Relationship Specialty Start Date End Date None PCP - General 12/28/09 07/25/11 None documented as of this encounter
--- OUTSIDE RECORDS SUMMARY | 2021-10-20 08:01 | XMS_ITS | Encounter Summary ---
:1985 [place] [address] Care Team Providers Name Role Phone None Primary Care Provider Unavailable Reason for Visit Reason Comments Loss of Consciousness Encounter Details Date Type Department Care Team Description 04/23/2011 Emergency Emergency Department Xiao Hwang MD [facility] Celia gutierrez [place] [id number] [place] [address] [place] [id number] (Wo rk) Social History Tobacco Use Types [...] Sign Reading Time Taken Comments Blood Pressure 110/79 04/23/2011 3:22 PM EDT Pulse 63 04/23/2011 3:22 PM EDT Temperature 36.9 ??C (98.4 ??F) 04/23/2011 3:22 PM EDT Respiratory Rate 18 04/23/2011 3:22 PM EDT Oxygen Saturation 100% 04/23/2011 3:22 PM EDT Inhaled Oxygen Concentration - - Weight - - Height - - Body Mass Index - - documented in this encounter Discharge Instructions Discharge InstructionsXiao Chaudhary MD - 04/23/2011 6:36 PM EDT You are being discharged home with a Holter monitor to evaluate your heart rhythm for the next 24 hours. We have ordered an outpatient Echocardiogram. You should follow up with your primary care physician regarding syncopal episodes and the results ofthese two tests. AttachmentsThe following attachments cannot be sent through Care Everywhere. FAINTING: AFTER YOUR VISIT TO THE EMERGENCY ROOM ([facility])documented in this encounter Medications at Time of [...] documented as of this encounter ED Notes Jey Cnote RN - 04/23/2011 7:28 PM EDT Pt is discharged home with follow up and homecare instructions that are understood. Karma Schuster RN - 04/23/2011 7:05 PM EDT Pt sitting up in bed, given a pt meal. No needs at this time Karma Schuster RN - 04/23/2011 6:21 PM EDT Neurology here talking with pt Karma Schuster RN - 04/23/2011 5:30 PM EDT Patient is resting comfortably. Karma Schuster RN - 04/23/2011 4:37 PM EDT Patient is resting comfortably. Remains A&O no episodes of syncope Xiao Chaudhary MD - 04/23/2011 4:10 PM EDT Name: Shirlene Kovacs Date of : 1985 Attending Physician: Dr. Xiao Chaudhary Chief Complaint: syncope History of Present Illness: Shirlene Kovacs is a 25 y.o. female with h/o opiate abuse currently in rehab at [facility], Hodgkin's lymphoma in remission, irradiation-induced hypothyroidism, and self-reported schizophrenia, presenting with multiple episodes of syncope. Shirlene reports that she has beenfainting since she was 17 years old, and that in the past fainting has always been associated with smoking marijuana. Two weeks ago she had her first episode of syncope that was not associated with smoking marijuana. Yesterday she fainted 3- 4 times and today she fainted twice. Pt reports that she feels facial and generalized tingling/numbness, throat closing, dizziness, and double vision, then loses consciousness completely. She wakes up feeling great, not tired or post-ictal. She hit her right rastafarian when she fainted yesterday, and hit her left rastafarian when she fainted today. One episode of syncope was witnessed yesterday, and was described in paperwork sent from [facility] as pt was shaking and tremulous, then went limp... LOC estimated at <60 seconds. Pt was sent to ED via EMS due to concerns from [facility] staff about her repeated episodes of syncope. She reports that she now feels good, and is not concerned about the fainting. She does report frontal and occipital headache that started after syncope with head injury yesterday, is now 6/10 in severity. No nausea/vomiting. No visual changes. States that she hasn't been taking levothyroxine for past 24 days (since admission to [facility]) because she was told that her thyroid function testing was normal on admission so she wastold she didn't need levothyroxine. Pt was seen last night at [facility] for evaluation of syncope, had normal CBC and LFTs, potassium was slightly low at 3.2 so was given 20 mg potassium and discharged to home. Pt reports that shehad an EKG as well, but that was not sent in paperwork. Gynecologic history: H/o miscarriages x2 at 4 months gestation LMP: current (vaginal bleeding started 2 days ago after pap smear done), doesn't know when last menses was (has h/o irregular menses) Unprotected intercourse with a man 24 days ago Review of Systems: No diarrhea/constipation. No neck pain. No back pain. No chest pain/SOB. No abdominal pain. No URI symptoms. No fevers. No dysuria/urgency/frequency. All other systems reviewed and negative. Past Medical History: Past Medical History Diagnosis Date ??? Hodgkin lymphoma Completed therapy 07/14/2002 ??? Irradiation-induced hypothyroidism ??? Depression ??? Reflux ??? Drug abuse ??? Smoking ??? 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 Duloxetine Hcl ??? Varenicline Tartrate Nausea/Vomiting Social History: Staying at [facility] rehab facility for past 24 days, [...] + h/o HPV Physical Exam: Vitals: BP 110/79 Pulse 63 Temp(Src) 36.9 ??C (98.4 ??F) (Oral) Resp 18 SpO2 100% General - awake, alert, in no acute distress Head - normocephalic/atraumatic Eyes - pupils equal, round, and reactive to light, extraocular movements intact, no conjunctival injection, no discharge, no scleral icterus Nose - no rhinorrhea Mouth - moist mucous membranes, no oral lesions Oropharynx - no erythema, no exudate, no tonsillar enlargement Neck - supple, full range of motion, no meningismus Cardiovascular - regular rate and rhythm, no murmurs/rubs/gallops Pulmonary - no cough; lungs clear to auscultation bilaterally, good air movement throughout, no wheeze, no crackles/rales, no retractions, no accessory muscle use Abdomen - soft, nontender/nondistended, no rebound/guarding, normal active bowel sounds, no hepatosplenomegaly Back - no CVA tenderness Extremities - warm and well perfused, cap refill < 2 sec throughout Neuro - CN II-XII intact, strength 5/5 throughout, normal sensation throughout, normal cerebellar exam ED course: Nursing notes and vitals were reviewed by me. Past notes in [facility] and [facility] were reviewed by me. Labs (reviewed by me): Recent Results (from the past 24 hour(s)) POCT URINE Component Value Range ??? POC Urine HCG Positive Negative - Negative ??? POC Control Internal Controls Acceptable CBC (WITH DIFF) Component Value Range ??? WBC 7.1 4.0 - 10.0 (x10(3)/mcL) ??? RBC 4.27 3.93 - 5.22 (x10(6)/mcL) ??? Hemoglobin 13.4 11.2 - 15.7 (gm/dL) ??? Hematocrit 38.7 34.0 - 45.0 (%) ??? MCV 90.6 79.0 - 94.0 (fL) ??? MCH 31.4 26.6 - 32.2 (pg) ??? MCHC 34.6 32.0 - 36.5 (gm/dL) ??? Platelets 332 145 - 370 (x10(3)/mcL) ??? RDWSD 40.7 35.0 - 46.0 (fL) ??? RDWCV 12.4 10.9 - 14.4 (%) ??? MPV 10.4 9.0 - 12.0 (fL) ELECTROLYTES PANEL Component Value Range ??? Sodium 142 135 - 145 (mmol/L) ??? Potassium 3.1 (*) 3.5 - 5.0 (mmol/L) ??? Chloride 108 (*) 98 - 107 (mmol/L) ??? CO2 23 22 - 31 (mmol/L) ??? Anion Gap 11 5 - 15 (mmol/L) BUN Component Value Range ??? BUN 9 8 - 18 (mg/dL) CREATININE, SERUM Component Value Range ??? Creatinine 0.71 0.70 - 1.20 (mg/dL) ? ? Estimated GFR >60 >=60 GLUCOSE, RANDOM Component Value Range ??? Glucose Lvl 100 60 - 199 (mg/dL) HEPATIC FUNCTION PANEL Component Value Range ??? Total Protein 6.8 6.4 - 8.3 (gm/dL) ??? Albumin 4.2 3.2 - 5.2 (gm/dL) ??? AST 27 0 - 30 (unit/L) ??? ALT 19 0 - 30 (unit/L) ??? Alk Phos 67 40 - 104 (unit/L) ??? Total Bilirubin 0.3 0.2 - 1.3 (mg/dL) ??? Bili, Direct 0.1 0.0 - 0.3 (mg/dL) CALCIUM Component Value Range ??? Calcium 9.0 8.5 - 10.5 (mg/dL) MAGNESIUM Component Value Range ??? Magnesium 0.92 0.69 - 1.07 (mmol/L) PHOSPHORUS Component Value Range ??? Phosphorus 2.4 (*) 2.5 - 4.5 (mg/dL) BLUE TUBE HOLD Component Value Range ??? Blue Hold Sample in lab. GOLD TUBE HOLD Component Value Range ??? Gold Hold Sample in lab. DIFFERENTIAL, AUTOMATED Component Value Range ??? Neutrophils % 59.2 34.0 - 71.0 (%) ??? Neutr Abs (ANC) 4.23 1.50 - 6.30 (x10(3)/mcL) ??? Lymphocytes % 31.1 19.0 - 53.0 (%) ??? Lymphocytes Abs 2.2 1.0 - 3.6 (x10(3)/mcL) ??? Monocytes % 8.3 4.0 - 13.0 (%) ??? Monocyte Abs 0.6 0.2 - 1.0 (x10(3)/mcL) ??? Eosinophils % 0.4 0.0 - 7.0 (%) ??? Eosinophils Abs 0.0 0.0 - 0.5 (x10(3)/mcL) ??? Basophils % 1.0 0.0 - 2.0 (%) ??? Basophils Abs 0.1 0.0 - 0.2 (x10(3)/mcL) ??? Immature Gran % 0.00 0.00 - 0.66 (%) ??? Ayah Gran Abs 0.00 0.00 - 0.05 (x10(3)/mcL) POCT URINE DIPSTICK Component Value Range ??? POC Sp [place] 1.015 1.002 - 1.030 ??? POC pH, UA 6 5.0 - 8.5 ??? POC Leuk, UA trace Negative - Negative ??? POC Nitrite, UA n Negative - Negative ??? POC Protein, UA trace Negative - Negative (mg/dL) ??? POC Glucose, UA n Normal - Normal (mg/dL) ??? POC Ketone, UA n Negative - Negative ??? POC Urobil, UA n 0.2 - 1.0 (mg/dL) ??? POC Bili, UA n Negative - Negative ??? POC Blood, UA large Negative - Negative (rony/uL) Informed by nurse that reported positive urine was incorrect (charted on the wrong patient) Radiographic studies (reviewed by me, discussed with Radiology as appropriate): - Head CT - prelim read: No ICH or other intracranial abnormality EKG (reviewed by me) - NSR at 59 bpm, normal axis/intervals (LA 134 msec, QTc 433 msec), normal ST-Twave segments, no T wave inversion in pre-cordial leads, no delta waves Neurology consulted Assessment and Plan: Shirlene Kovacs is a 25 y.o. female with h/o opiate abuse currently in rehab at [facility], Hodgkin's lymphoma in remission, irradiation-induced hypothyroidism, and self-reported schizophrenia, presenting with multiple episodes of syncope in the past 2 days. Description of syncope is suggestive of vasovagal syncope, although it is unusual that she has had so many episodes in the past 2 days with noinciting factors. EKG shows sinus bradycardia, no other abnormalities including no prolonged QTc andno delta waves to suggest arrhythmia. Head CT, done due to several head injuries during syncopal episodes, showed no ICH or other intracranial abnormality. CBC is normal, including no anemia (Hgb 13.4). Electrolytes are notable for mild hypokalemia (K 3.1) and hyperchloridemia (Cl 108) with normal bicarb, sodium, and glucose. LFTs are normal. TSH is normal. Urinalysis is positive for blood (consistent with current menses), otherwise negative with no evidence of UTI. Urine is negative (initially reported as positive, which was a charting error by RN). Neurology was consulted, feel that episodes are consistent with vasovagal syncope, recommend Holter and Echo as outpatient. Holter will be placed prior to discharge. Echocardiogram was ordered as outpatient. Recommend follow-up with PCP for Holter and Echo results. Pt was signed out to Dr. De Luna at the end of my shift, pending placement of Holter. Xiao Chaudhary MD 04/23/11 1802 Xiao Chaudhary MD 04/23/11 1834 documented in this encounter Miscellaneous Notes Discharge Summary - Provider, Kayli - 04/24/2011 9:08 AM EDT Miscellaneous - Provider, Scanning - 04/23/2011 11:20 PM EDT Consult Note - Billie Smith MD - 04/23/2011 7:33 PM EDT Neurology Consult Note Patient name:Shirlene Kovacs Date of :1985 Admit date: 04/23/2011 Attending: Dr. Dorsey CC: Fainting spells We have been asked to see Shirlene Kovacs by Dr. Xiao Chaudhary of the emergency department for evaluation of fainting spells. HPI: Shirlene Kovacs is a 25 y.o. right handed woman presenting to the ED from [facility] for evaluation of fainting spells. Ms. Kovacs has had 7 fainting episodes in the past 2 days, 3 yesterday and 4 the day of presentation. She says that she has had syncopal episodes since the age of 17. The episodes are all similar. They start with a sensation of light-headedness followed by tingling of the face, diaphoresis, heart racing, and shortness of breath. The patient knows that she is going to faint and will generally lie on a cold floor, such as in the bathroom. Then she loses consciousness, usually for a couple of seconds, before returning to baseline. When she comes to she is completely normal. She has never been observed to have a convulsion, though sometimes she twitches a little while she is passed out. The patient states that her episodes used to happen while smoking marijuana, but she is now clean and sober. All of the episodes tend to happen when she goes from lying to standing or sitting to standing. She had never been evaluated for syncope prior to today. She used to pass out anywhere fromonce a week to three times a day. Seven times in two days is a bit unusual for her. Ms. Kovacs checked herself into [facility] 24 days ago for rehabilitation and detoxification. She had been using marijuana for years, but in the past 6 months had started abusing heroin and opiates. She was also drinking alcohol. She started detoxing with the help of suboxone. She has been weaned off of the suboxone as well and has not had any in about 3-4 days. She says that overall she has been doing okay, but she has had frequent nausea, vomiting, diarrhea, constipation, and poor appetite whileat rehab. Ms. Kovacs has history of migraine headaches. She gets them 2-3 times a week. Her typical migraines require her to lie in a dark room and avoid light and sound. She is not sure if the migraines are associated with the episodes of passing out. Ms. Kovacs has no risk factors for seizures. She was born full term, was uncomplicated. She had normal early development. She had some difficulty reading but otherwise did well in school. Shehas no history of head trauma, meningitis, or encephalitis. She has no family history of epilepsy. Past Medical History: Hodgkin's lymphoma -Diagnosed in 2001. Presented [...] IBS History of suicide attempt Drug abuse as above Medications: No current facility-administered medications on file prior to encounter. Current outpatient prescriptions ordered prior to encounter Medication Sig Dispense Refill ??? levothyroxine (SYNTHROID) 75 mcg tablet Take 1 tablet by mouth daily. 90 tablet 3 ??? LANSOPRAZOLE (PREVACID ORAL) ??? norgestimate-ethinyl estradiol (ORTHO TRI-CYCLEN;TRI-SPRINTEC) 0.18/0.215/0.25 mg-35 mcg (28) tablet 1 Tablet(s), PO, Once daily ??? doxycycline (VIBRAMYCIN) 100 mg capsule 200 MG = 2 Capsule(s), PO, X 1 Allergies: Allergies Allergen Reactions ??? Duloxetine Hcl ??? Varenicline Tartrate Nausea/Vomiting Family history: Family History Problem Relation Age of Onset ??? Cancer Hodgkin lymphoma in maternal cousin +History of migraine and stroke Social history: Shirlene lives in an apartment with a close friend. She completed 11th grade and then got her GED. 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 She has a substance abusehistory as above. Review of systems: Constitutional: No fevers or chills Eyes: No vision changes, no diplopia, no blurry vision ENT: No rhinorrhea or pharyngitis, no meningismus CV: No chest pain or palpitations Resp: No cough, no shortness of breath GI: +Nausea, vomiting, diarrhea, constipation, poor appetite : No dysuria, no incontinence Heme: No bleeding or bruising Endo: Thyroid disease Neuro: See HPI Psych: Mood disorder [x] Review of systems otherwise negative Physical Exam: Vitals: Temp: [36.9 ??C (98.4 ??F)] Heart Rate: [63] Resp: [18] BP: (110)/(79) SpO2: [100 %] Constitutional: Patient of apparent stated age, well nourished, well developed, no acute distress Neck: Supple, no meningismus, no carotid bruit CV: RRR, S1, S2, no murmur Resp: CTAB Abd: Soft, nontender, nondistended Ext: No edema. No bony deformity Neuro: MS: Alert, oriented, clear language, no dysarthria CN: Fundi full, disks sharp, PERRL, EOMI, visual lin full, trigeminal sensation intact, no facialasymmetry, hearing intact to whisper, palate elevates symmetrically, tongue protrudes midline, SCM and trap strength intact Motor: Normal bulk and tone. 5/5 strength in bilateral upper and lower extremities Sensation: Intact to light touch throughout. Decreased sensation to temperature and vibration in bilateral lower extremities Reflexes: 2+ DTRs, downgoing toes Coordination: Finger to nose intact, rapid alternating movements intact and symmetric Gait:Light headed upon standing. Stable, steady gait. Negative rhomberg Labs: Recent Results (from the past 24 hour(s)) POCT URINE Component Value Range ??? POC Urine HCG Positive Negative - Negative ??? POC Control Internal Controls Acceptable POCT URINE Component Value Range ??? POC Urine HCG Negative Negative - Negative ??? POC Control Internal Controls Acceptable CBC (WITH DIFF) Component Value Range ??? WBC 7.1 4.0 - 10.0 (x10(3)/mcL) ??? RBC 4.27 3.93 - 5.22 (x10(6)/mcL) ??? Hemoglobin 13.4 11.2 - 15.7 (gm/dL) ??? Hematocrit 38.7 34.0 - 45.0 (%) ??? MCV 90.6 79.0 - 94.0 (fL) ??? MCH 31.4 26.6 - 32.2 (pg) ??? MCHC 34.6 32.0 - 36.5 (gm/dL) ??? Platelets 332 145 - 370 (x10(3)/mcL) ??? RDWSD 40.7 35.0 - 46.0 (fL) ??? RDWCV 12.4 10.9 - 14.4 (%) ??? MPV 10.4 9.0 - 12.0 (fL) ELECTROLYTES PANEL Component Value Range ??? Sodium 142 135 - 145 (mmol/L) ??? Potassium 3.1 (*) 3.5 - 5.0 (mmol/L) ??? Chloride 108 (*) 98 - 107 (mmol/L) ??? CO2 23 22 - 31 (mmol/L) ??? Anion Gap 11 5 - 15 (mmol/L) BUN Component Value Range ??? BUN 9 8 - 18 (mg/dL) CREATININE, SERUM Component Value Range ??? Creatinine 0.71 0.70 - 1.20 (mg/dL) ? ? Estimated GFR >60 >=60 GLUCOSE, RANDOM Component Value Range ??? Glucose Lvl 100 60 - 199 (mg/dL) HEPATIC FUNCTION PANEL Component Value Range ??? Total Protein 6.8 6.4 - 8.3 (gm/dL) ??? Albumin 4.2 3.2 - 5.2 (gm/dL) ??? AST 27 0 - 30 (unit/L) ??? ALT 19 0 - 30 (unit/L) ??? Alk Phos 67 40 - 104 (unit/L) ??? Total Bilirubin 0.3 0.2 - 1.3 (mg/dL) ??? Bili, Direct 0.1 0.0 - 0.3 (mg/dL) CALCIUM Component Value Range ??? Calcium 9.0 8.5 - 10.5 (mg/dL) MAGNESIUM Component Value Range ??? Magnesium 0.92 0.69 - 1.07 (mmol/L) PHOSPHORUS Component Value Range ??? Phosphorus 2.4 (*) 2.5 - 4.5 (mg/dL) BLUE TUBE HOLD Component Value Range ??? Blue Hold Sample in lab. GOLD TUBE HOLD Component Value Range ??? Gold Hold Sample in lab. DIFFERENTIAL, AUTOMATED Component Value Range ??? Neutrophils % 59.2 34.0 - 71.0 (%) ??? Neutr Abs (ANC) 4.23 1.50 - 6.30 (x10(3)/mcL) ??? Lymphocytes % 31.1 19.0 - 53.0 (%) ??? Lymphocytes Abs 2.2 1.0 - 3.6 (x10(3)/mcL) ??? Monocytes % 8.3 4.0 - 13.0 (%) ??? Monocyte Abs 0.6 0.2 - 1.0 (x10(3)/mcL) ??? Eosinophils % 0.4 0.0 - 7.0 (%) ??? Eosinophils Abs 0.0 0.0 - 0.5 (x10(3)/mcL) ??? Basophils % 1.0 0.0 - 2.0 (%) ??? Basophils Abs 0.1 0.0 - 0.2 (x10(3)/mcL) ??? Immature Gran % 0.00 0.00 - 0.66 (%) ??? Ayah Gran Abs 0.00 0.00 - 0.05 (x10(3)/mcL) TSH Component Value Range ??? TSH 3.31 0.27 - 4.20 (mcIU/mL) BETA HCG, QUANTITATIVE Component Value Range ? ? Beta hCG Quant <1 (mlU/ML) POCT URINE DIPSTICK Component Value Range ??? POC Sp [place] 1.015 1.002 - 1.030 ??? POC pH, UA 6 5.0 - 8.5 ??? POC Leuk, UA trace Negative - Negative ??? POC Nitrite, UA n Negative - Negative ??? POC Protein, UA trace Negative - Negative (mg/dL) ??? POC Glucose, UA n Normal - Normal (mg/dL) ??? POC Ketone, UA n Negative - Negative ??? POC Urobil, UA n 0.2 - 1.0 (mg/dL) ??? POC Bili, UA n Negative - Negative ??? POC Blood, UA large Negative - Negative (rony/uL) Diagnostic Tests and Imaging: Head CT normal Assessment: Ms. Shirlene Kovacs is a 25 yo woman presenting with multiple episodes of syncope. The patient seems to have orthostatic syncope, which is brought on by changes in positions. Since she has been detoxifying and has had recent nausea and vomiting, I suspect that she is relatively volume depleted, which iswhy the syncopal episodes have been happening more frequently. Other possible causes of syncope would by arrhythmia or cardiac output dysfunction. I think it would be worthwhile to monitor the patient with a Holter monitor. An outpatient echocardiogram might also be reasonable given her exposure to cardiotoxic chemotherapy (doxorubicin). The patient does not have any risk factors for seizures and hasa normal neurologic exam. I do not think that an EEG is necessary at this time. Recommendations: Recommend checking orthostatic vitals Advised patient to drink plenty of fluids and add a little salt to her diet Recommend outpatient Holter monitor Consider outpatient echocardiogram Thank you for involving us in the care of this patient Billie Smith MD Neurology Resident [id number] ED Triage - Karma Schuster RN - 04/23/2011 3:23 PM EDT Pt has history of syncopal episodes, she has had 4 today, pt states that after coming out of last one her hands and face where tingling which is different from usual. Pt is a resident at [facility] and was seen at [facility] yesterday documented in this encounter Plan of Treatment Pending Results Name Type Priority Associated Diagnoses Date/Ti me Holter Monitor Cardiac Services STAT 2 7:25 PM 24hr EDT documented as of this encounter Procedures Procedure Name Priority Date/Time Associated Comments Diagnosis CT HEAD WO CONTRAST Routine 04/23/2011 5:04 PM Re sults for this (GENERIC) EDT procedure are i n the results section. EKG 12-LEAD STAT 04/23/2011 4:37 PM Results f or this EDT procedure are i n the results section. POCT URINE DIPSTICK STAT 04/23/2011 4:36 PM Re sults for this EDT procedure are i n the results section. DIFFERENTIAL, STAT 04/23/2011 4:15 PM Results for this AUTOMATED EDT procedure are i n the results section. GOLD TUBE HOLD STAT 04/23/2011 4:15 PM Results for this EDT procedure are i n the results section. BLUE TUBE HOLD STAT 04/23/2011 4:15 PM Results for this EDT procedure are i n the results section. CREATININE STAT 04/23/2011 4:15 PM Results f or this EDT procedure are i n the results section. CBC (WITH DIFF) STAT 04/23/2011 4:15 PM Result s for this EDT procedure are i n the results section. BETA HCG, STAT 04/23/2011 4:15 PM Results f or this QUANTITATIVE EDT procedure are i n the results section. BUN STAT 04/23/2011 4:15 PM Results f or this EDT procedure are i n the results section. TSH STAT 04/23/2011 4:15 PM Results f or this EDT procedure are i n the results section. PHOSPHORUS STAT 04/23/2011 4:15 PM Results f or this EDT procedure are i n the results section. MAGNESIUM STAT 04/23/2011 4:15 PM Results f or this EDT procedure are i n the results section. GLUCOSE, RANDOM STAT 04/23/2011 4:15 PM Result s for this EDT procedure are i n the results section. CALCIUM STAT 04/23/2011 4:15 PM Results f or this EDT procedure are i n the results section. HEPATIC FUNCTION STAT 04/23/2011 4:15 PM Resul ts for this PANEL EDT procedure are i n the results section. ELECTROLYTES PANEL STAT 04/23/2011 4:15 PM Res ults for this EDT procedure are i n the results section. POCT URINE Routine 04/23/2011 Results for this procedure are i n the results section. POCT URINE STAT 04/23/2011 Results for this procedure are i n the results section. documented in this encounter Results CT HEAD WO CONTRAST (04/23/2011 5:04 PM EDT) Anatomical Region Laterality Modality Head Computed Tomography Specimen (Source) Anatomical Collection Method Collection Time Re ceived Time Location / / Volume Laterality 04/23/2011 5:04 PM EDT Impressions 04/24/2011 10:20 AM EDT IMPRESSION: ?? Normal head CT. ?? Film and interpretation reviewed by the attending Narrative 04/24/2011 10:[address] HEAD WITHOUT CONTRAST: ?? INDICATION: ??Multiple episodes of synco pe with head injury. ?? TECHNIQUE: ??Axial CT of the head was pe rformed without intravenous contrast. ?? COMPARISON: ??There is no study availabl e for comparison. ?? FINDINGS: ??The ventricles are normal in size and contour. ??There is no intracranial hemorrhage, mass, or mass e ffect. ??No extraaxial fluid collections. ??Osseous structures are no rmal. ?? Procedure Note Richard Ny MD - 04/24/2011Formattpepe cheung of this note might be different from the original. CT HEAD WITHOUT CONTRAST: INDICATION: Multiple episodes of syncope with head injury. TECHNIQUE: Axial CT of the head was perf ormed without intravenous contrast. COMPARISON: There is no study available for comparison. FINDINGS: The ventricles are normal in s ize and contour. There is no intracranial hemorrhage, mass, or mass e ffect. No extraaxial fluid collections. Osseous structures are norm al. IMPRESSION IMPRESSION: Normal head CT. Film and interpretation reviewed by the attending Xiao Chaudhary MD IMG CT ORDERABLES EKG 12 Lead (04/23/2011 4:37 PM EDT) Component Value Ref Range Test Analysis Performed Pathologis t Method Time At Signature Ventricular rate 59 BPM MUSE SYSTEM Atrial Rate 59 BPM MUSE SYSTEM P-R Interval 134 ms MUSE SYSTEM QRS Duration 78 ms MUSE SYSTEM Q-T Interval 438 ms MUSE SYSTEM QTC Calculated 433 ms MUSE SYSTEM (Bezet) Calculated P Medon 55 degrees MUSE SYSTEM Calculated R Medon 73 degrees MUSE SYSTEM Calculated T Medon 64 degrees MUSE SYSTEM INTERPRETATION Sinus bradycardia MUSE SY STEM Otherwise normal ECG No previous ECGs available Confirmed by MD GOULD JOHN ([id number]) on 04/24/2011 12:58:43 PM Specimen Anatomical Collection Method Collection Time Receive d Time (Source) Location / / Volume Laterality 04/23/2011 4:37 PM 2 EDT 12:58 PM EDT Xioa Chaudhary MD ECG ORDERABLES Performing Organization Address City/State/ZIP Code Phon e Number MUSE SYSTEM POCT urine dipstick (04/23/2011 4:36 PM EDT) P athologist Signature POC Sp [place] 1.015 1.002 - 1.030 POC pH, UA 6 5.0 - 8.5 POC Leuk, UA trace Negative - Negative POC Nitrite, n Negative - UA Negative POC Protein, trace Negative - UA Negative mg/dL POC Glucose, n Normal - UA Normal mg/dL POC Ketone, UA n Negative - Negative POC Urobil, UA n 0.2 - 1.0 mg/dL POC Bili, UA n Negative - Negative POC Blood, UA large Negative - Negative rony/uL Xiao Chaudhary MD POINT OF CARE TEST ORDERABLE S BETA HCG, QUANTITATIVE (04/23/2011 4:15 PM EDT) P athologist Signature Beta hCG Quant <1 mlU/ML [facility] Comment: REFERENCE RANGES NON- FEMALE: ??Less [...] Location / / Volume Laterality Blood specimen 04/23/2011 4:15 PM 012 5:45 (specimen) EDT PM EDT Resulting Agency Comment Spec In Lab Xiao Chaudhary MD CHEMISTRY ORDERABLES Performing Organization Address City/[facility]/ZIP Code Phon e Number [address] [facility] TSH (04/23/2011 4:15 PM EDT) P athologist Signature TSH 3.31 0.27 - 4.20 [facility] mcIU/mL MILLENNIUM Specimen Anatomical Collection Method Collection Time Receive d Time (Source) Location / / Volume Laterality Blood specimen 04/23/2011 4:15 PM 012 4:22 (specimen) EDT PM EDT Resulting Agency Comment Spec In Lab Xiao Chaudhary MD CHEMISTRY ORDERABLES Performing Organization Address City/[facility]/ZIP Code Phon e Number [address] [facility] DIFFERENTIAL, AUTOMATED (04/23/2011 4:15 PM EDT) P athologist Signature Neutrophils % 59.2 34.0 - [facility] 71.0 % MILLENNIUM Neutr Abs (ANC) 4.23 1.50 - [facility] 6.30 MILLENNIUM x10(3)/mcL Lymphocytes % 31.1 19.0 - [facility] 53.0 % MILLENNIUM Lymphocytes Abs 2.2 1.0 - 3.6 [facility] x10(3)/mcL M[facility]ENNIUM Monocytes % 8.3 4.0 - 13.0 CERNER % MILLENNIUM Monocyte Abs 0.6 0.2 - 1.0 C[facility] x10(3)/mcL [facility]ENNIUM Eosinophils % 0.4 0.0 - 7.0 CERNER % MILLENNIUM Eosinophils Abs 0.0 0.0 - 0.5 [facility] x10(3)/mcL [facility]NIUM Basophils % 1.0 0.0 - 2.0 CERNER % MILLENNIUM Basophils Abs 0.1 0.0 - 0.2 [facility] x10(3)/mcL [facility]NI[facility] Immature Gran % 0.00 0.00 - CERNER 0.66 % MILLENNIUM Comment: Immature granulocytes(IG's)percentage an d absolute count will include metamyelocytes, myelocytes, and promyelo cytes. Blood smears from CBCs yielding IG's will be scanned manually for concor dance. If this scan disagrees with the automated IG or if promyelocytes are not ed, a manual differential will be performed. Ayah Gran Abs 0.00 0.00 - 0.05 x10(3)/mcL CER NER MILLENNIUM Specimen Anatomical Collection Method Collection Time Receive d Time (Source) Location / / Volume Laterality Blood specimen 04/23/2011 4:15 PM 012 4:20 (specimen) EDT PM EDT Xiao Chaudhary MD HEMATOLOGY ORDERABLES Performing Organization Address City/State/[place] [address] [facility] MILLENNIUM GOLD TUBE HOLD (04/23/2011 4:15 PM EDT) athologist Signature Gold Hold Sample in [facility] lab. MILLENNIUM Specimen Anatomical Collection Method Collection Time Receive d Time (Source) Location / / Volume Laterality Blood specimen 04/23/2011 4:15 PM 012 4:21 (specimen) EDT PM EDT Xiao Chaudhary MD CHEMISTRY ORDERABLES Performing Organization Address City/[facility]/ZIP Code Phon e Number [address] [facility] MILLENNIUM BLUE TUBE HOLD (04/23/2011 4:15 PM EDT) P athologist Signature Blue Hold Sample in [facility] lab. MILLENNIUM Specimen Anatomical Collection Method Collection Time Receive d Time (Source) Location / / Volume Laterality Blood specimen 04/23/2011 4:15 PM 012 4:21 (specimen) EDT PM EDT Xiao Chaudhary MD HEMATOLOGY ORDERABLES Performing Organization Address City/[facility] Code Phon e Number [address] [facility] MILLENNIUM (ABNORMAL) Phosphorus (04/23/2011 4:15 PM EDT) P athologist Signature Phosphorus 2.4 (L) 2.5 - 4.5 [facility] mg/dL MILLENNIUM Specimen Anatomical Collection Method Collection Time Receive d Time (Source) Location / / Volume Laterality Blood specimen 04/23/2011 4:15 PM 012 4:20 (specimen) EDT PM EDT Resulting Agency Comment Spec In Lab Xiao Chaudhary MD CHEMISTRY ORDERABLES Performing Organization Address City/[facility]/ZIP Code Phon e Number [address] [facility] MILLENNIUM Magnesium (04/23/2011 4:15 PM EDT) P athologist Signature Magnesium 0.92 0.69 - 1.07 [facility] mmol/L MILLENNIUM Specimen Anatomical Collection Method Collection Time Receive d Time (Source) Location / / Volume Laterality Blood specimen 04/23/2011 4:15 PM 012 4:20 (specimen) EDT PM EDT Resulting Agency Comment Spec In Lab Xiao Chaudhary MD CHEMISTRY ORDERABLES Performing Organization Address City/[facility]/[place] [address] [facility] MILLENNIUM Calcium (04/23/2011 4:15 PM EDT) athologist Signature Calcium 9.0 8.5 - 10.5 [facility] mg/dL MILLENNIUM Specimen Anatomical Collection Method Collection Time Receive d Time (Source) Location / / Volume Laterality Blood specimen 04/23/2011 4:15 PM 012 4:20 (specimen) EDT PM EDT Resulting Agency Comment Spec In Lab Xiao Chaudhary MD CHEMISTRY ORDERABLES Performing Organization Address City/State/[place] [address] [facility] MILLENNIUM Hepatic Function Panel (04/23/2011 4:15 PM EDT) athologist Signature Total Protein 6.8 6.4 - 8.3 [facility] gm/dL MILLENNIUM Albumin 4.2 3.2 - 5.2 [facility] gm/dL MILLENNIUM AST 27 0 - 30 [facility] unit/L MILLENNIUM ALT 19 0 - 30 [facility] unit/L MILLENNIUM Alk Phos 67 40 - 104 [facility] unit/L MILLENNIUM Total 0.3 0.2 - 1.3 [facility] Bilirubin mg/dL MILLENNIUM Bili, Direct 0.1 0.0 - 0.3 [facility] mg/dL MILLENNIUM Specimen Anatomical Collection Method Collection Time Receive d Time (Source) Location / / Volume Laterality Blood specimen 04/23/2011 4:15 PM 012 4:20 (specimen) EDT PM EDT Resulting Agency Comment Spec In Lab Xiao Chaudhary MD CHEMISTRY ORDERABLES Performing Organization Address City/State/[place] [address] [facility] MILLENNIUM Glucose, random (04/23/2011 4:15 PM EDT) athologist Signature Glucose Lvl 100 60 - 199 [facility] mg/dL MILLENNIUM Comment: Diabetes: >=200 mg/dL plus symp toms Specimen Anatomical Collection Method Collection Time Receive d Time (Source) Location / / Volume Laterality Blood specimen 04/23/2011 4:15 PM 012 4:20 (specimen) EDT PM EDT Resulting Agency Comment Spec In Lab Xiao Chaudhary MD CHEMISTRY ORDERABLES Performing Organization Address City/State/ZIP Code Phon park [place] [id number] MARIBELL MORALESIUM Creatinine, serum (04/23/2011 4:15 PM EDT) P athologist Signature Creatinine 0.71 0.70 - C[facility]ER 1.20 mg/dL MILLENNIUM Estimated [...] Location / / Volume Laterality Blood specimen 04/23/2011 4:15 PM 012 4:20 (specimen) EDT PM EDT Resulting Agency Comment Spec In Lab Xiao Chaudhary MD CHEMISTRY ORDERABLES Performing Organization Address City/State/[place] [address] [facility] MILLENNIUM BUN (04/23/2011 4:15 PM EDT) athologist Signature BUN 9 8 - 18 [facility] mg/dL MILLENNIUM Specimen Anatomical Collection Method Collection Time Receive d Time (Source) Location / / Volume Laterality Blood specimen 04/23/2011 4:15 PM 012 4:20 (specimen) EDT PM EDT Resulting Agency Comment Spec In Lab Xiao Chaudhary MD CHEMISTRY ORDERABLES Performing Organization Address City/[facility]/ZIP Code Phon e Number [address] [facility] MILLENNIUM (ABNORMAL) Electrolytes panel (04/23/2011 4:15 PM EDT) athologist Signature Sodium 142 135 - 145 [facility] mmol/L MILLENNIUM Potassium 3.1 (L) 3.5 - 5.0 [facility] mmol/L MILLENNIUM Comment: Please note: ??Patients with WBC >100,00 0 may have falsely elevated Potassium levels. ??For accurate Potassium quantif ication in these patients send serum separator tube (gold top) for subsequent determinations. ??Contact the Clinical Chemistry Laboratory if there are any qu estions. Chloride 108 (H) 98 - 107 mmol/L C[facility]ER MILLENN IUM CO2 23 22 - 31 mmol/L CERNER MILLENNI UM Anion Gap 11 5 - 15 mmol/L C[facility]ER MILLENNIU M Specimen Anatomical Collection Method Collection Time Receive d Time (Source) Location / / Volume Laterality Blood specimen 04/23/2011 4:15 PM 012 4:20 (specimen) EDT PM EDT Resulting Agency Comment Spec In Lab Xiao Chaudhary MD CHEMISTRY ORDERABLES Performing Organization Address City/[facility]/[place] [address] [facility] MILLENNIUM CBC (with Diff) (04/23/2011 4:15 PM EDT) athologist Signature WBC 7.1 4.0 - 10.0 [facility] x10(3)/mcL [facility] RBC 4.27 3.93 - 5.22 [facility] x10(6)/mcL [facility] Hemoglobin 13.4 11.2 - 15.7 [facility] gm/dL [facility] Hematocrit 38.7 34.0 - 45.0 [facility] % [facility] MCV 90.6 79.0 - 94.0 [facility] fL [facility] MCH 31.4 26.6 - 32.2 [facility] pg [facility] MCHC 34.6 32.0 - 36.5 [facility] gm/dL [facility] Platelets 332 145 - 370 [facility] x10(3)/mcL [facility] RDWSD 40.7 35.0 - 46.0 [facility] RDWCV 12.4 10.9 - 14.4 [facility] % [facility] MPV 10.4 9.0 - 12.0 [facility] Specimen Anatomical Collection Method Collection Time Receive d Time (Source) Location / / Volume Laterality Blood specimen 04/23/2011 4:15 PM 012 4:20 (specimen) EDT PM EDT Resulting Agency Comment Spec In Lab Xiao Chaudhary MD HEMATOLOGY ORDERABLES Performing Organization Address City/State/[place] [address] [facility] POCT urine (04/23/2011) Interface Foundry Method Time Signature POC Urine HCG Negative Negative - Negative POC Control Internal Controls Acceptable Xiao Chaudhary MD POINT OF CARE TEST ORDERABLE S POCT urine (04/23/2011) Interface Foundry Method Time Signature POC Urine HCG Positive Negative - Negative POC Control Internal Controls Acceptable Xiao Chaudhary MD POINT OF CARE TEST ORDERABLE S documented in this encounter Visit Diagnoses Diagnosis Syncope Syncope and collapse documented in this encounter Administered Medications Inactive Administered Medications - up to 3 most recent administrations Medication Order MAR Action Action Date Dose Rate Site sodium chloride 0.9% 1,000 mL IV Given 04/23/2011 4:30 PM EDT 1 L bolus 1 L, Intravenous, ONCE, 1 dose, On 04/23/11 at 1630 documented in this encounter Active and Recently Administered Medications Times are shown in EDT. Scheduled Medication Order 04/21/2011 04/22/2011 04/23/2011 sodium chloride 0.9% 1,000 mL IV bolus (COMPLETED) 1630 (Given - Provider: Karma Schuster RN) 1 L, Intravenous, ONCE, 1 dose, 04/23/11 at 1630 documented in this encounter Care Teams Reducer Relationship Specialty Start Date End Date None PCP - General 12/28/09 07/25/11 None documented as of this encounter
--- OUTSIDE RECORDS SUMMARY | 2021-10-20 08:01 | XMS_ITS | Encounter Summary ---
:1985 Author Organization [facility] [place] [address] Care Team Providers Name Role Phone None Primary Care Provider Unavailable Reason for Visit Reason Onset Date Comments Thyroid Problem 05/16/2011 Encounter Details Date Type Department Care Team Description 05/16/2011 Telephone Endocrinology at [facility] C Livier Luna LPN [place] [address] Social History Tobacco Use Types Packs/Day Years [...] Telephone Encounter - Livier Luna LPN - 05/17/2011 10:07 AM EDT Received call from patient's counselor at [facility] and also spoke with patient of need for f/u appointment with Dr Corbin. Patient agrees with plan of care states she can come for f/u appointment while she is at [facility]. call transferred to profiling machine set up operator to schedule appointment. Rx faxed to [phone] Telephone Encounter - Livier Luna LPN - 05/16/2011 3:04 PM EDT Message on endo Rx line from patient that she is in a drug and alcohol rehab. A prescription needs to be faxed to them so they will give her the medication. Per patient request I called [phone] ext [phone] and left message for her counselor to please return my call. documented in this encounter Plan of Treatment Not on filedocumented as of this encounter Visit Diagnoses Not on filedocumented in this encounter Care Teams Land Surveying Survey Worker Relationship Specialty Start Date End Date None PCP - General 12/28/09 07/25/11 None documented as of this encounter
--- OUTSIDE RECORDS SUMMARY | 2021-10-20 08:01 | XMS_ITS | Encounter Summary ---
:1985 Author Organization [facility] [place] [address] Care Team Providers Name Role Phone Janet Alonso APRN Primary Care Provider Encounter Details Date Type Department Care Team Description 08/23/2011 Notes Only Pediatric Oncology a t [facility] Elena Marrero MD [facility] Celia gutierrez [facility] [place] [id number] PEDIATRIC [phone] HEMATOLOGY/ONCOL [place], [place] [address] (Wo rk) Social History Tobacco [...] encounter Progress Notes Elena Marrero MD - 08/23/2011 9:05 PM EDT Shirlene called on 08/22/2011 and left a message that she wanted to ask about a referral. I spoke with her this evening. Per Shirlene her mother wanted her to ask me if I should refer her to another oncologist. I told Shirlene that it was not my role to provide her with primary care. It was my role to provide her with exterminator follow-up care for her Hodgkin Lymphoma. I told her that I had spoken to her primary care provider, Janet Alonso. Shirlene said that she had only met her provider once. I encouraged her to follow-up with this individual. Shirlene was somewhat distracted during the phone call. She saidthat she would talk with her mother. Ms. Alonso and I had had a substantial phone conversation during the week of 07/30 during which we discussed Shirlene's medical and social issues. We specifically discussed Shirlene's ongoing abdominal pain.We also discussed that Shirlene needs an echocardiogram which could be done local to her or could be done here. I suggested that Ms Alonso let me know if the echo needed to be done here. Shirlene called in the interval between the above conversation and the conversation this evening to report that she did not feel well, that her mother would give her a ride to [facility] in [place] but did notwant to do so if she was just going to be seen in the ED and then sent home. I told Shirlene that I could not guarantee that she would be admitted. I told her then that I had spoken with Ms. Alonso and that Shirlene should contact that practice for care. I also told Shirlene that I had discussed the locationof the echocardiogram, that she should speak with Ms. Alonso about the test and that the test could be done either locally or at [facility]. In addition during the 07/28/[address] a [address] scan of her abdomen and pelvis to look for a source of her pain, specifically to look for a splenic abscess given her recent history of IV drug use and to look for evidence either of a recurrence which would be unusual or a second malignancy for which she is at risk as a cause of her pain. The CT scan was done late in the day and was not prior authorized. I have provided [employer] with a copy of the note. The copy has denied the service. I am going to send a copy of the denial to our appeals unit. documented in this encounter Plan of Treatment Not on filedocumented as of this encounter Visit Diagnoses Not on filedocumented in this encounter Care Teams Shoe Packer Relationship Specialty Start Date End Date Janet Alonso APRN PCP - General 07/26/11 10/03/11 documented as of this encounter
--- OUTSIDE RECORDS SUMMARY | 2021-10-20 08:01 | XMS_ITS | Encounter Summary ---
:1985 Author Organization [facility] Address [facility] [place] [address] Care Team Providers Name Role Phone Janet Alonso APRN Primary Care Provider Encounter Details Date Type Department Care Team Description 07/28/[address] Scan [facility] Elena Marrero MD [facility] PEDIATRIC HEMATOLOGY/[place] [address] [address]; [place] [address] Social History Tobacco Use Types Packs/Day Years [...] Date levothyroxine (SYNTHROID) Take 1 tablet by 90 tablet 3 06/0511/14/2011 75 mcg tabletIndications: mouth daily. Hypothyroidism aripiprazole (ABILIFY) 10 Take 10 mg by [...] Diagnosis Comme nts CT ABDOMEN AND Routine 07/28/2011 6:39 PM Hodgkin's disease, R esults for this PELVIS W CONTRAST EDT unspecified procedure are in Generalized the results hyperhidrosis section. Abdominal pain, left upper quadrant documented in this encounter Results CT ABDOMEN & PELVIS WITH CONTRAST (07/28/2011 6:39 PM EDT) Anatomical Region Laterality Modality Abdomen, Pelvis Computed Tomography Specimen (Source) Anatomical Collection Method Collection Time Re ceived Time Location / / Volume Laterality 07/28/2011 6:39 PM EDT Narrative 07/29/2011 3:[address] Abdomen / Pelvis With Contrast Clinical History LUQ and lower abdominal pain, with night sweats ??and recent history of IV substance abuse. ??Past history of Hodgk in Lymphoma with radiation to mediastiinum, test pending Comparison February 18, 2002. Technique The patient was scanned from the thoraci c inlet to the pubic symphysis using oral contrast 110 mL of Omnipaque 350 IV contrast. Findings Abdomen: ??The lung bases, liver, gallbl adder, biliary tree, pancreas, spleen, kidneys, and adrenal glands appear rené l. ??No enlarged lymph nodes or other abnormalities are seen. Pelvis: No enlarged lymph nodes or other abnormalities are seen. Impression Normal. Procedure Note Magdaleno Whitaker MD - 07/29/2011Formatt ing of this note might be different from the original. Examination CT Abdomen / Pelvis With Contrast Clinical History LUQ and lower abdominal pain, with night sweats and recent history of IV substance abuse. Past history of Hodgkin Lymphoma with radiation to mediastiinum, test pending Comparison February 18, 2002. Technique The patient was scanned from the thoraci c inlet to the pubic symphysis using oral contrast 110 mL of Omnipaque 350 IV contrast. Findings Abdomen: The lung bases, liver, gallblad mario, biliary tree, pancreas, spleen, kidneys, and adrenal glands appear rené l. No enlarged lymph nodes or other abnormalities are seen. Pelvis: No enlarged lymph nodes or other abnormalities are seen. Impression Normal. Elena Marrero MD IMG CT ORDERABLES documented in this encounter Visit Diagnoses Diagnosis Hodgkin's disease in remission Hodgkin's disease, unspecified Night sweats Generalized hyperhidrosis LUQ pain Abdominal pain, left upper quadrant documented in this encounter Administered Medications Inactive Administered Medications - up to 3 most recent administrations Medication Order MAR Action Action Date Dose Rate Site iohexol (OMNIPAQUE) 350 mg/mL Given 07/28/2011 4:30 PM EDT 17,50 0 mg injection 17,500 mg 17,500 mg (50 mL), Oral, ONCE PRN, 1 dose, Starting on Sun07/28/11 at 1827, Until Sun07/28/11 at 1630, Per Protocol, Routine iohexol (OMNIPAQUE) 350 mg/mL injection Given 07/28/2011 6:39 PM EDT 38,500 mg 38,500 mg 38,500 mg (110 mL), Intravenous, ONCE PRN, 1 dose, Starting on Sun07/28/11 at 1827, Until Sun07/28/11 at 1839, Per Protocol, Routine documented in this encounter Care Teams Polystyrene Bead Molder Relationship Specialty Start Date End Date Janet Alonso, PLANER OFFBEARER PCP - General 07/26/11 10/03/11 documented as of this encounter
--- OUTSIDE RECORDS SUMMARY | 2021-10-20 08:01 | XMS_ITS | Encounter Summary ---
:1985 Author Organization [facility] Address [facility] [place] [address] Care Team Providers Name Role Phone Janet Alonso APRN Primary Care Provider Reason for Visit Reason Comments Follow-up abdominal pain Encounter Details Date Type Department Care Team Description 07/28/2011 Follow-Up Pediatric Oncology at Alexx Marrero MD Hodgkin's disease in remission; [facility] Night sweats; [facility] [address] STEVENS pain; Drive PEDIATRIC Abdominal pain; [place] [address] HEMATOLOGY/ONCOLOGY Fainting [phone] [place] [address] (Wo rk) Social History Tobacco Use Types [...] Sign Reading Time Taken Comments Blood Pressure 110/65 07/28/2011 4:08 PM EDT Pulse 68 07/28/2011 4:08 PM EDT Temperature 36.7 ??C (98.1 ??F) 07/28/2011 4:08 PM EDT Respiratory Rate 16 07/28/2011 4:08 PM EDT Oxygen Saturation - - Inhaled Oxygen Concentration - - Weight 68.7 kg (151 lb 7.3 oz) 07/28/2011 4:08 PM EDT Height 173.7 cm (5' 8.39) 07/28/2011 4:08 PM EDT Body Mass Index 22.77 07/28/2011 4:08 PM EDT documented in this encounter Progress Notes Lorena Marrero MD - 08/02/2011 7:32 PM EDT Pediatric Oncology Long-Term Follow-Up Clinic Encounter date: 07/28/2011 Subjective/Events: Shirlene is a 24 year old young woman who is for several purposes. Shirlene was last seen on 06/15/2010. Shirlene is by herself. This appt was at Shirlene's request. At her appt in June 2010 she was living in [place] and was employed. Potential late effects as well as recommendations for routine follow-up were discussed at length. It was recommended that Shirlene establish a primary care provider. Shirlene was told that a primary care provider would be able to provide appropriate follow-up for late effects. Shirlene agreed and planned to establish care in [place]. Today Shirlene appears to have two issues, follow-up of her Hodgkinlymphoma and evaluation of her abdominal pain and dizziness. On 04/23/2011 Shirlene was seen for syncope. She had had multiple previous episodes of syncope. On thisday she had hit her head. A work-up that included a CT scan of the head, EKG, multiple normal labs, and a neurology consult was felt to be consistent with vasovagal events. Shirlene returned to the ED the following day with the same complaint. She was admitted for further evaluation which was to includea Holter. After admission she was given permission, with IV and Holter in place, to leave the unit and get something to eat. She met an acquaintance there and left the hospital with her IV in place andthe Holter in place. She tells me today that she was so f--kded that she has no idea where she left the Holter. At the time of that admission she was reportedly in rehab but told the ED physician that she had recently shared IV drugs and needles with someone who is Hep C positive. She reportedly returned to rehab. On 06/17/[address] Corbin, her lending activities supervisor. She reported then that she had been inrehab and was diagnosed with schizophrenia. She had been on antipsychotics tub stopped taking the drugs. While the drugs reportedly stopped the voices they made her fell funny. During that visit she agreed to establish primary care and agreed on a referral to [facility]. This could not be done since she did not have a primary care provider. Shirlene reports to me today that she has a new PCP and is not sure if she has seen that individual. Shirlene then developed abdominal pain. She variously describes the pain as LUQ and/or across her mid to lower abdomen. She describes the pain as pressure pain. She came to clinic today with a disc from [facility] with a CXR, transvaginal ultrasound and abd/pelvic CT scan dating from 06/25/2011. She apparently went to the ED in [facility] for evaluation of the pain. There is no record of her reporting this pain to Dr. Corbin. She does report that it was her understanding that if she took her levothyroxine regularly that she might feel better. She reports that she is taking this medication. Since the most recent ED visit Shirleen has continued to have pain, all the time. She reports that it is not better and it is not worse, just the same. Her appetite is decreased and she thinks that shehas had some wt loss. Of note her wt was 66.6 kg on 04/23, 71.2 kg on 06/19 and now 68.7 kg. Shirlene also reports that instead of her usual constipation she has an increased number of relatively loose stools. She also reports a worsening of her chronic epigastric pain. She reports that she is sleeping much of the time to manage her discomfort. She describes soaking sweats for the past 4 1/2 weeks. She does not know if she has fevers since she does not have a thermometer. She reports that her knees and e lbows ache but are not erythematous or swollen. She reports that her migraines have increased in frequency occuring 3 times a week. She reports prolonged but not heavy menses. She continues to have syncopal episodes, reporting that she fainted a couple of days ago. She says she knows when it is going to happen because she gets a tingly feeling first. She may have noticed an irregular heartbeat. Shirlene denies change in vision, change in hearing, nasal discharge, mouth sores, difficulty swallowing, cough, SOB, BAUTISTA, rash, bruising, itching, dysuria, change in balance, change in coordination, change in strength. Shirlene reports that she uses alcohol once a week and smokes 4 cigarettes a day. When asked how she managed the pain she says she takes percocet and/or methadone when she can get them. She then said that she should report that she has also been using heroin and cocaine, that she shares needles, and that she has used IV drugs within the past couple of days. She denies that she could possibly be . Shirlene has not be doing routine breast exams. She says she knows that she is supposed to do them buthasn't paid attention at previous visits when these exams were done. ROS: As noted above. . Oncologic PMH: Diagnosis: Hodgkin Lymphoma Stage: IIa [...] disease. Treatment: Chemotherapy and radiation therapy Facility: [facility] ([place], [place]) Protocol: JOE-HD-90; 2 cycles OPPA, 2 [...] removal 07/27/03 Monitorin04/09/07 echocardiogram normal Medical PMH: Hypothyroidism, acquired post radiation H/o drug abuse and depression with multiple stays in rehab and group homes. GERD for which she takes prevacid. Irritable bowel/constipation. Mild dysphagia. Asthma as a child Smoking since her early teens Medications: Lansoprazole 15 mg Levothyroxine 75 mcg daily OCPs Aripiprazole - not clear when she stopped taking Allergies: Cymbalta Chantix FH: Maternal grandmother had breast cancer in her 50s. Maternal cousin with Hodgkin Lymphoma SH: Current association with rehab is not clear to me. Physical Exam: General: Alert, cooperative, intermittently cried with history, cried with abdominal exam. Was able to walk around. VS: T 36.7 P 68 RR 16 BP 110/65 Wt 68.7 kg Ht 173. 7 cm HEENT: W/o oral lesions, w/o scleral or conjunctival lesions, w/o nasal discharge, nl TMs Neck: supple, no thyromegaly Nodes: W/o significant adenopathy Lungs: Clear Chest: Nl breast exam Lungs: Clear CV: RRR Abd: Flat, diffusely tender with gentle palpation, no obvious HSM or masses M/S: FROM, w/o pain Neuro: Nonfocal Derm: Clear Labs/Studies: H/H 14/40.4 Plts 309,000 WBC 9.7 (74.7N/19.7L/4.7M) ANC 7260 ESR 7 Na 138 K 3.5 Cl 104 CO2 24 BUN 12 Cr 0.87 Gluc 91 Ca 9.5 TP 7.4 Alb 4.4 T bili 0.7 D bili 0.2 Alk phos 76 AST 83 ALT 116 HIV negative, Quantitative HIV < 20 copies U/A unremarkable Urine culture negative Blood culture negative Urine test negative CXR - Shirlene did not get CT scan of abd/pelvis: The 06/24 scan was reviewed with the only finding a small ovarian cyst. I spoke with the radiologist following the current exam which was normal. Findings Abdomen: The lung bases, liver, gallbladder, biliary tree, pancreas, spleen, kidneys, and adrenal glands appear normal. No enlarged lymph nodes or other abnormalities are seen. Pelvis: No enlarged lymph nodes or other abnormalities are seen. Assessment: Shirlene is a 26 year old with a history of Stage IIa Hodgkin Lymphoma for which she received chemotherapy and radiation therapy. She has been off therapy since 07/2002. Shirlene has no evidencefor disease recurrence by history or physical exam. Shirlene's only known late-effect from her previous therapy is hypothyroidism. She is potentially at risk for a second malignancy in the radiation field, particularly for breast cancer, cardiac dysfunction from anthracycline exposure, coronary artery disease depending on the precise extent of the radiation port, and carotid artery disease from radiation to her neck. The risks increase over time from treatment. Shirlene continues to smoke, an activity which she knows can increase her risks for cardiac late effects. With the exception of the carotid and coronary disease all of the above have been discussed multiple times with Shirlene. At this time she needs a routine echocardiogram and will need to start mammography with a breast MRI if covered in 2012. Shirlene's acute issues of abdominal pain and dizziness are difficult to evaluate especially since Shirlene has a history of being a somewhat vague historian. Given her history of radiation a question was whether or not there could be a second malignancy, most likely in her chest, causing referred pain toher abdomen. Given her prolonged and very recent history of IV drug use with shared needles the question was whether or not she had an infection causing the pain. After an informal discussion with ID the decision was made to obtain a blood culture, HIV, Hep C, and CT scan to look for infection. Shirlene's CT scan did not show a tumor or evidence of infection. Shirlene claims that she knows what withdrawal feels like and the abdominal pain is different. The etiology of Shirlene's dizziness is unclear. She will need an echocardiogram this year. Given thatalbina lost the Holter I do not think that she can have an outpatient Holter. If she is admitted at anytime the Holter could be done at that time. An ECG with a rhythm strip could be done. There are descriptions of individuals treated in teenage years having significant artery disease in the radiation ports by the mid to late '. Will consider looking at her carotid arteries in the future. Discussed with Shirlene that if the CT scan showed evidence of infection or any other significant pathology she would possibly need to be admitted. If the CT scan was normal then she would need to go home and call me on 07/30 for the rest of the results. Shirlene was given a thermometer to document fevers. Discussed with Shirlene that if the abdominal pain was intolerable then she would need to go to an ED for care. It is notable that she did not ask me for pain medication. I also strongly encouraged Shirlene to establish care with a primary provider since that individual(s) would be better able to help herwith chronic abdominal pain. I did not discuss with Shirlene but it is possible that some of her abdominal pain could be attributed to irritable bowel syndrome. Plan: 1) history 2) PE 3) CBC, CMP 4) ESR 5) HIV, quantitative HIV (early infection) Hep C ( inadvertently missed) 6) U/A, urine culture 7) Blood cultures 8) CXR - not done 9) CT scan of the abd/pelvis 10) Discussion as noted above about acute causes 11) Discussion as noted above about late effects Plan: 1) Speak to Shirlene on Sunday 2) Contact PCP, Janet Alonso APRN, listed in Shirlene's chart 3) Echocardiogram, ECG Shirlene's past cancer therapy puts her at [...] Shirlene should have her first screeningmammogram in 2012. Breast MRI has been recommended recently as [...] exam, she should be evaluated urgentlyby a lubricating engineer. Shirlene should be counseled against smoking cigarettes and using drugs such as cocaine and diet pills as these can increase the risk for developing cardiac toxicity. may puta woman at special risk for developing cardiac decompensation, so if Shirlene becomes in the future, she should see a lubricating engineer during her . According to the Children???s [...] should avoidSCUBA diving unless cleared by a change of address clerk. Thyroid Nodules: Neck irradiation may cause thyroid [...] with peers, a physician should evaluate her. . documented in this encounter Plan of Treatment Scheduled Orders Name Type Priority Associated Diagnoses Order S chedule POCT urine dipstick Point of Care Routine Abdominal pain Order ed: Testing 07/28/2011 documented as of this encounter Procedures Procedure Name Priority Date/Time Associated Comments Diagnosis URINALYSIS WITH REFLEX STAT 07/28/2011 5:30 PM Abdominal pa in Results for this CULTURE EDT procedure are i n the results section. URINE CULTURE Routine 07/28/2011 5:30 PM Abdominal pain Result s for this EDT procedure are i n the results section. URINE, Routine 07/28/2011 5:15 PM Hodgkin's disease Results for this QUALITATIVE EDT in remission procedure are in ([facility]/CGP/[facility]) Night sweat s the results LUQ pain section. HIV QUANT Routine 07/28/2011 4:30 PM Hodgkin's disease Resu lts for this EDT in remission procedure are in Night sweats the results LUQ pain section. DIFFERENTIAL, Routine 07/28/2011 4:30 PM Results for this AUTOMATED EDT procedure are i n the results section. HIV SCREEN, 4TH Routine 07/28/2011 4:30 PM Hodgkin's disease R esults for this GENERATION EDT in remission procedure are in ([facility]/CGP/APD/NLH) Night sweats the results LUQ pain section. BLOOD CULTURE Routine 07/28/2011 4:30 PM Hodgkin's disease Res ults for this EDT in remission procedure are in Night sweats the results LUQ pain section. SEDIMENTATION RATE Routine 07/28/2011 4:30 PM Hodgkin's diseas e Results for this EDT in remission procedure are in Night sweats the results LUQ pain section. CBC (WITH DIFF) Routine 07/28/2011 4:30 PM Hodgkin's disease R esults for this EDT in remission procedure are in Night sweats the results LUQ pain section. COMPREHENSIVE Routine 07/28/2011 4:30 PM Hodgkin's disease Res ults for this METABOLIC PANEL EDT in remission procedure are in (NON-FASTING) Night sweats the results LUQ pain section. HIV-1 RNA, Routine 07/28/2011 3:53 PM Hodgkin's disease QUANTITATIVE, PCR EDT in remission Night sweats LUQ pain documented in this encounter Results Urinalysis with microscopic (07/28/2011 5:30 PM EDT) [facility] gist Method Time Signature Glucose UA Negative Negative CERNER mg/dL MILLENNIUM Protein UA Negative mg/dL CERNER MILLENNIUM Bilirubin UA Negative Negative CERNER mg/dL MILLENNIUM Urobilinogen UA Normal mg/dL CERNER MILLENNIUM pH UA 6.5 5.0 - 8.0 CERNER MILLENNIUM Blood UA Negative mg/dL CERNER MILLENNIUM Ketones UA Negative mg/dL CERNER MILLENNIUM Nitrite UA Negative CERNER MILLENNIUM Leukocytes UA Negative mcL CERNER MILLENNIUM Appearance UA Clear Clear CERNER MILLENNIUM Spec [place] UA 1.002 1.002 - CERNER 1.030 MILLENNIUM Color UA Colorless Yellow CERNER MILLENNIUM RBC UA Not Present 0 - 4 CERNER MILLENNIUM WBC UA <1 0 - 5 /HPF CERNER MILLENNIUM Squam Epith UA 1 <=4 /HPF [facility] MARYVALENER MILLENNIUM Specimen Anatomical Collection Method Collection Time Receive d Time (Source) Location / / Volume Laterality Urine specimen URINE SPECIMEN 07/28/2011 5:30 PM 07/27 5:51 (specimen) OBTAINED BY CLEAN EDT PM EDT CATCH PROCEDURE / Unknown Resulting Agency Comment Spec In Lab Lorena Marrero MD URINE ORDERABLES Performing Organization Address City/State/ZIP Code Phon e Number [place] [id number] [facility] Urine culture Clean Catch Urine (07/28/2011 5:30 PM EDT) [facility] Method Time Signature Urine Culture CERNER ? Patient Name: SHIRLENE PARKS ? Ordered By: OLRENA MARRERO ? MR#: [id number] ?LOC: ??3K ? /Sex: ??1985 (26 years), ? Female ? PROCEDURE: Urine Culture ?SOURCE: U CC ? COLLECTED: 07/28/2011 17:30 ? STARTED: 07/28/2011 18:44 ? FINAL REPORT ? Final Report ? Verified:07/29/2011 15:03 ? No growth (Less than 1,000 cfu/ml). ? Specimen (Source) Anatomical Collection Method Collection Time Re ceived Time Location / / Volume Laterality Urine specimen 07/28/2011 5:30 07/28/2011 6:44 obtained by clean PM EDT PM EDT catch procedure (specimen) Resulting Agency Comment Spec In Lab Lorena Marrero MD MICROBIOLOGY - GENERAL ORDER MICHEL Performing Organization Address City/[facility]/ZIP Code Phon e Number [address] [facility] urine, qualitative (07/28/2011 5:15 PM EDT) P athologist Signature SG Urine 1.008 1.002 - CERNER 1.030 MILLENNIUM HCG Qual Negative CERNER MILLENNIUM Comment: If Specific [place] is less than 1.010, a negative result is obtained, and is still suspect ed, a repeat on a first morning specimen is recommended. Specimen Anatomical Collection Method Collection Time Receive d Time (Source) Location / / Volume Laterality Urine specimen 07/28/2011 5:15 PM 012 5:28 (specimen) EDT PM EDT Resulting Agency Comment Spec In Lab Lorena Marrero MD URINE ORDERABLES Performing Organization Address City/[facility]/ZIP [facility] Phon e Number [address] CERNER [facility] (ABNORMAL) DIFFERENTIAL, AUTOMATED (07/28/2011 4:30 PM EDT) Patholo gist Method Time Signature Neutrophils % 74.7 (H) 34.0 - CERNER 71.0 % MILLENNIUM Neutr Abs (ANC) 7.26 (H) 1.50 - CERNER 6.30 MILLENNIUM x10(3)/mc L Lymphocytes % 19.7 19.0 - CERNER 53.0 % MILLENNIUM Lymphocytes Abs 1.9 1.0 - 3.6 CERNER x10(3)/mc MILLENNIUM L Monocytes % 4.7 4.0 - CERNER 13.0 % MILLENNIUM Monocyte Abs 0.5 0.2 - 1.0 CERNER x10(3)/mc MILLENNIUM L Eosinophils % 0.5 0.0 - 7.0 CERNER % MILLENNIUM Eosinophils Abs 0.0 0.0 - 0.5 CERNER x10(3)/mc MILLENNIUM L Basophils % 0.3 0.0 - 2.0 CERNER % MILLENNIUM Basophils [...] Location / / Volume Laterality Blood specimen 07/28/2011 4:30 PM 012 4:39 (specimen) EDT PM EDT Lorena Marrero MD HEMATOLOGY ORDERABLES Performing Organization Address City/State/[place] [address] CERNER MILLENNIUM HIV QUANT (07/28/2011 4:30 PM EDT) Component Value Ref Test Analysis Performed At [facility] Range Method Time Signature HIV Viral * RESULT: < 20 copies/mL (Target Not Detected)* CERNER Load MILLENNIUM INDICATION FOR STUDY: HIV-1 Infection ANALYSIS: A real time PCR amplification assay was performed on extracted viral RNA for the purpose of quantification. SAMPLE: serum/plasma (1.0 mL minimum) METHOD: MARILYNN AmpliPrep / MARILYNN TaqMan HIV-1 Test v.2.0 LINEAR RANGE: 20 copies/mL 10,000,000 copies/mL plasma NOTE: The MARILYNN AmpliPrep / MARILYNN TaqMan HIV-1 Test v.2.0 has been approved by the U.S. Food and Drug Administration. Chencho Guerin, Ph.D. Director, Molecular Pathology Comment: [VERIFIED DATE]08.02.11 Verified By:Lainey Rucker (Electronic Signature) Specimen Anatomical Collection Method Collection Time Receive d Time (Source) Location / / Volume Laterality Blood specimen 07/28/2011 4:30 PM 012 (specimen) EDT 11:44 AM EDT Resulting Agency Comment Spec In Lab Lorena Marrero MD HEMATOLOGY ORDERABLES Performing Organization Address City/State/[place] [address] MARIBELL PRESLEY Blood culture (07/28/2011 4:30 PM EDT) [facility] Method Time Signature Blood Culture CERNER ? Patient Name: SHIRLENE PARKS ? Ordered By: LORENA MARRERO ? MR#: [id number] ?LOC: ??3K ? /Sex: ??1985 (26 years), ? Female ? PROCEDURE: Blood Culture ?SOURCE: Blood ? COLLECTED: 07/28/2011 16:30 ? STARTED: 07/28/2011 16:46 ? FINAL REPORT ? Final Report ? Verified:08/03/2011 15:07 ? No growth at 5 days. ? PRELIMINARY REPORT ? Preliminary Report ? Verified:08/01/2011 23:07 ? No growth at 4 days. ? Specimen Anatomical Collection Method Collection Time Receive d Time (Source) Location / / Volume Laterality Blood specimen 07/28/2011 4:30 PM 012 4:46 (specimen) EDT PM EDT Resulting Agency Comment Spec In Lab Lorena Marrero MD MICROBIOLOGY - BLOOD ORDERAB LES Performing Organization Address City/[facility] Phon e Number [address] [facility] HIV (07/28/2011 4:30 PM EDT) athologist Signature HIV 1/2 Ab Negative [facility] Specimen Anatomical Collection Method Collection Time Receive d Time (Source) Location / / Volume Laterality Blood specimen 07/28/2011 4:30 PM 012 4:39 (specimen) EDT PM EDT Resulting Agency Comment Spec In Lab Lorena Marrero MD IMMUNOLOGY ORDERABLES Performing Organization Address City/[facility] Phon e Number [address] [facility] (ABNORMAL) Comprehensive metabolic panel (non-fasting) (07/28/2011 4:30 PM EDT) athologist Signature Glucose Lvl 91 60 - 199 CERNER mg/dL [facility] Comment: Diabetes: >=200 mg/dL plus symp toms BUN 12 8 - 18 mg/dL [facility] Creatinine 0.87 0.70 - 1.20 mg/dL [facility] MILL ENNIUM Comment: Please note that the pediatric reference intervals supplied above were not validated at [facility]. Results from pediatri c patients should be interpreted in conjunction to the patient's age, height and muscle mass. Sodium 138 135 - 145 mmol/L CERNER JEZ NIUM Potassium 3.5 3.5 - 5.0 mmol/L CERNER JEZ NIUM Comment: Please note: ??Patients with WBC >100,00 0 may have falsely elevated Potassium levels. ??For accurate Potassium quantif ication in these patients send serum separator tube (gold top) for subsequent determinations. ??Contact the Clinical Chemistry Laboratory if there are any qu estions. Chloride 104 98 - 107 mmol/L CERNER MILLENN IUM CO2 24 22 - 31 mmol/L CERNER MILLENNI UM Anion Gap 10 5 - 15 mmol/L CERNER MILLENNIU M Calcium 9.5 8.5 - 10.5 mg/dL CERNER JEZ NIUM Total Protein 7.4 6.4 - 8.3 gm/dL CERNER MIL LENNIUM Albumin 4.4 3.2 - 5.2 gm/dL CERNER MILLENN IUM AST 83 (H) 0 - 30 unit/L CERNER MILLENNIU M ALT 116 (H) 0 - 30 unit/L CERNER MILLENNIU M Alk Phos 76 40 - 104 unit/L CERNER MILLENN IUM Total Bilirubin 0.7 0.2 - 1.3 mg/dL CERNER M ILLENNIUM Bili, Direct 0.2 0.0 - 0.3 mg/dL CERNER MILL ENNIUM Estimated GFR >60 >=60 CERNER MILLENNIU M Comment: The National Kidney Disease Education Pr ogram (NKDEP) has recommended all laboratories report estimated GFR (eGFR) along with plasma creatinine measurements to assist you with recognit ion of early kidney disease. Caveats: ??Plasma creatinine should be a t steady-state (unchanged within the past week). For patient s multiply eGFR by 1.2. The MDRD equation was developed using patients be tween the ages of 18 and 70 years. ?? The MDRD equation has not been validated for patients < 18 years of age and should not be used to assess renal function in the pediatric population. ??The MDRD eGFR equation will also overestimate the true GFR of patients above the age of 70. ??This overestimation is variable bu t increases with age. At present, NKDEP does NOT recommend usi [...] kidney disease. References: http://nkdep.nih.gov/resources/NKDEP_Sug gestn4Labs_0606_508.pdf http://www.kidney.org/professionals/kls/ pdf/faq_gfr.pdf Opal Clark, Poli NA, Rubi AK, Gino TS, Enrique AD, Chayo SUSAN. Relative performance of the MDRD and CKD-EPI equa tions for estimating glomerular filtration rate among patients with vari ed clinical presentations. Clin J Am Soc Nephrol;6:1963-72. Specimen Anatomical Collection Method Collection Time Receive d Time (Source) Location / / Volume Laterality Blood specimen 07/28/2011 4:30 PM 012 4:39 (specimen) EDT PM EDT Resulting Agency Comment Spec In Lab Lorena Marrero MD CHEMISTRY ORDERABLES Performing Organization Address City/[facility] [place] [address] CERNER MILLENNIUM Sedimentation rate (07/28/2011 4:30 PM EDT) P athologist Signature Sed Rate 7 0 - 20 CERNER mm/hr MILLENNIUM Specimen Anatomical Collection Method Collection Time Receive d Time (Source) Location / / Volume Laterality Blood specimen 07/28/2011 4:30 PM 012 4:39 (specimen) EDT PM EDT Resulting Agency Comment Spec In Lab Lorena Marrero MD HEMATOLOGY ORDERABLES Performing Organization Address City/[facility] [place] [address] CERNER MILLENNIUM (ABNORMAL) CBC (with Diff) (07/28/2011 4:30 PM EDT) P athologist Signature WBC 9.7 4.0 - 10.0 CERNER x10(3)/mcL MILLENNIUM RBC 4.41 3.93 - CERNER 5.22 MILLENNIUM x10(6)/mcL Hemoglobin 14.0 11.2 - CERNER 15.7 gm/dL MILLENNIUM Hematocrit 40.4 34.0 - CERNER 45.0 % MILLENNIUM MCV 91.6 79.0 - CERNER 94.0 fL MILLENNIUM MCH 31.7 26.6 - CERNER 32.2 pg MILLENNIUM MCHC 34.7 32.0 - CERNER 36.5 gm/dL MILLENNIUM Platelets 309 145 - 370 CERNER x10(3)/mcL MILLENNIUM RDWSD 46.2 (H) 35.0 - CERNER 46.0 fL MILLENNIUM RDWCV 13.8 10.9 - CERNER 14.4 % MILLENNIUM MPV 10.5 9.0 - 12.0 CERNER fL MILLENNIUM Specimen Anatomical Collection Method Collection Time Receive d Time (Source) Location / / Volume Laterality Blood specimen 07/28/2011 4:30 PM 012 4:39 (specimen) EDT PM EDT Resulting Agency Comment Spec In Lab Lorena Marrero MD HEMATOLOGY ORDERABLES Performing Organization Address City/State/[place] [address] CERNER MILLENNIUM documented in this encounter Visit Diagnoses Diagnosis Hodgkin's disease in remission Hodgkin's disease, unspecified Night sweats Generalized hyperhidrosis LUQ pain Abdominal pain, left upper quadrant Abdominal pain Abdominal pain, unspecified site Fainting Syncope and collapse documented in this encounter Care Teams Deck Engineer Relationship Specialty Start Date End Date Janet Alonso APRN PCP - General 07/26/11 10/03/11 documented as of this encounter
--- OUTSIDE RECORDS SUMMARY | 2021-10-20 08:06 | XMS_ITS | Encounter Summary ---
:1985 Author Organization [facility] Address [address] [place] [address] Care Team Providers Name Role Phone Talya Machado MD Primary Care Provider [phone] Encounter Details Date Type Department Care Team Description 04/17/2011 Hospital Encounter [facility] - Hans Lemons sherry AcostaMEREDITH [id number] [place] [phone] (Wo rk) Social History Tobacco Use Types Packs/Day Years Used Date Current Every Day Smoker 0.25 12 Smokeless Tobacco: Never Used Alcohol Use Standard Drinks/Week Comments Yes 0 (1 standard drink = 0.6 oz pure alcoho l) rarely Alcohol Habits Answer Date Recorded How often do you have a drink containing alcohol? Not asked How many drinks containing alcohol do you have on a typical Not asked day when you are drinking? How often do you have six or more drinks on one occasion? No t asked Comment: rarely 09/06/2010 Sex Assigned at Date Recorded Not on file documented as of this encounter Medications at Time of Discharge Medication Sig Dispensed Refills Start Date End Date lansoprazole (PREVACID) 15 Take 15 mg by 0 mg capsule mouth daily. LEVOTHYROXINE SODIUM Take 75 mcg by 0 (LEVOTHYROXINE ORAL) mouth. Not sure of dose fluoxetine (PROZAC) 20 mg Take 40 mg by 0 01/19/2012 capsule mouth daily. documented as of this encounter Discharge Disposition Disposition Code Departure Means Destination Home or Self Care documented in this encounter Plan of Treatment Not on filedocumented as of this encounter Visit Diagnoses Not on filedocumented in this encounter Additional Health Concerns Infection Onset Date Last Indicated Resolved Time MRSA 05/06/2010 05/06/2010 documented as of this encounter Care Teams Modeling Director Relationship Specialty Start Date End Date Talya Machado MD PCP - General 02/05/[address] [place] [phone] documented as of this encounter
--- OUTSIDE RECORDS SUMMARY | 2021-10-20 08:06 | XMS_ITS | Encounter Summary ---
:1985 Author Organization [facility] Address [address] [place] [address] Care Team Providers Name Role Phone None, Provider Primary Care Provider Unavailable Reason for Visit Reason Comments Follow-up Encounter Details Date Type Department Care Team Description 05/07/2010 Hospital Encounter [facility] Alisha Miner NP [address] [place] [phone] Urgent Care - Odalis Henry MD [address] [facility] [address] [place] [phone] [facility] [address] [place], [place] [id number] Social History Tobacco Use Types Packs/Day Years Used Date Current Every Day Smoker 0.25 12 Smokeless Tobacco: Never Used Alcohol Use Standard Drinks/Week Comments No 0 (1 standard drink = 0.6 oz pure alcoho l) Sex Assigned at Date Recorded Not on file documented as of this encounter Last Filed Vital Signs Vital Sign Reading Time Taken Comments Blood Pressure 104/72 05/07/2010 1538 EDT Pulse 64 05/07/2010 1538 EDT Temperature 37.3 ??C (99.2 ??F) 05/07/2010 1538 EDT Respiratory Rate 16 05/07/2010 1538 EDT Oxygen Saturation - - Inhaled Oxygen Concentration - - Weight - - Height - - Body Mass Index - - documented in this encounter Medications at Time of Discharge Medication Sig Dispensed Refills Start Date End Date LEVOTHYROXINE SODIUM Take 75 mcg by 0 (LEVOTHYROXINE ORAL) mouth. Not sure of dose clindamycin (CLEOCIN) 300 Take 1 Cap by mouth 40 Cap 0 0 05/05/2010 05/15/2010 mg capsule 4 times daily for 10 days. oxycodone-acetaminophen Take 1 Tab by mouth 15 Tab 0 07/06/2010 (PERCOCET) 5-325 mg per every 6 hours as tablet needed for Pain. sulfamethoxazole-trimethop Take 1 Tab by mouth 14 Tab 0 05/03/2010 05/10/2010 rim every 12 hours for (BACTRIM/C0-TRIMOXAZOLE 7 days. DS) 800-160 mg per tablet documented as of this encounter Discharge Disposition Disposition Code Departure Means Destination Comments Home or Self Care Walk-out pt left wi thout being seen documented in this encounter ED Notes Alisha Miguel NP - 05/07/2010 2659 EDT DOS: 05/07/2010 Chief Complaint Patient presents with ??? Follow-up The patient is a 24 y.o. female who presents today with Follow-up HPI Comments: Patient left clinic prior to being seen by provider. Review of Systems No current facility-administered medications on file. Current outpatient prescriptions Medication Sig Dispense Refill ??? clindamycin (CLEOCIN) 300 mg capsule Take 1 Cap by mouth 4 times daily for 10 days. 40 Cap 0 ??? oxycodone-acetaminophen (PERCOCET) 5-325 mg per tablet Take 1 Tab by mouth every 6 hours as needed for Pain. 15 Tab 0 ??? LEVOTHYROXINE SODIUM (LEVOTHYROXINE ORAL) Take by mouth. Not sure of dose ??? sulfamethoxazole-trimethoprim (BACTRIM/C0-TRIMOXAZOLE DS) 800-160 mg per tablet Take 1 Tab by mouth every 12 hours for 7 days. 14 Tab 0 No Known Allergies Past Medical History Diagnosis Date ??? Thyroid disease ??? Cancer 2003 Hodgkins Lymphoma History Substance Use Topics ??? Smoking status: Current Everyday Smoker -- 0.2 packs/day for 12 years ??? Smokeless tobacco: Never Used ??? Alcohol Use: No History reviewed. No pertinent family history. BP 104/72 Pulse 64 Temp(Src) 99.2 ??F (37.3 ??C) (Temporal) Resp 16 Physical Exam Consult orders: None PCP: MD NO PCP No results found for this visit on 05/07/10. Radiology orders: None Procedures Course: No diagnosis found. Dr. Wilber Angulo was available for consultation during my care of this patient. MDM 05/07/2010 17:09 Sylvia Lay - 05/07/2010 1539 EDT Pt asked to change into a gown. She steven - 05/07/2010 1521 EDT EST documented in this encounter Plan of Treatment Not on filedocumented as of this encounter Visit Diagnoses Not on filedocumented in this encounter Additional Health Concerns Infection Onset Date Last Indicated Resolved Time MRSA 05/06/2010 05/06/2010 documented as of this encounter Care Teams Press Cutter Relationship Specialty Start Date End Date None, Provider PCP - General 05/03/10 07/05/10 documented as of this encounter
--- OUTSIDE RECORDS SUMMARY | 2021-10-20 08:06 | XMS_ITS | Encounter Summary ---
:1985 Author Organization [facility] Address [address] [facility] [place] [address] Care Team Providers Name Role Phone Unknown, Provider Primary Care Provider Encounter Details Date Type Department Care Team Description 05/13/2007 Results Only [facility] - Irasema Rangel, Fifi spivey, conversion TRICK RODEO RIDER [address] [place] [address] [place] [address] [phone] (Wo rk) Social History Tobacco Use Types Packs/Day Years Used Date Never Assessed Sex Assigned at Date Recorded Not on file documented as of this encounter Plan of Treatment Not on filedocumented as of this encounter Procedures Procedure Name Priority Date/Time Associated Diagnosis Comme nts CYTOPATHOLOGY Routine 05/13/2007 0:00 EDT Results for this procedure are i n the results section . documented in this encounter Results CYTOPATHOLOGY (05/13/2007 0:00 EDT) Pathology Report: CYTOPATHOLOGY REPORT [facility] Reports generated via electronic interface contain dominik ginal data; however they are lacking the format of the original re port. Caution should be taken when reading/interpreting unfo rmatted reports. Name: ? SHIRLENE PARKS ? Accession #: ? [id number] : ? 1985 (Age: 21) ??F ?Collect Date: ? 04/0 08/2007 Location: ? [facility] ? Receive Date : ? 05/15/2007 Provider: ?MICHELLE SHELTONP Copy to: ?THOMAS CANDELARIA MD ? Specimen/Source: ? ThinPrep Pap Test, Vagina/Cervix/Endocervix, processed on [employer] ThinPrep Imaging System, with manual evaluati on Last Menstrual Period: ? 2 wk Previous Gynecologic Pathology: ? ANDREA I ANDREA II ASC-US HPV: + ASC-US: LGSIL 11/20/05, 10/12 & 11/11 Treatment History: ? Cryotherapy Miscellaneous treatment: LLETZ Other: ? Additional clinical information: H/o Lymphoma ? SPECIMEN ADEQUACY ? Satisfactory for Evaluation - transformation zone component present GENERAL CATEGORIZATION ? Negative for Intraepithelial Lesion or Malignan cy ? Document reviewed and electronically signed by: ? AURORA Umanzor(ASCP)(IAC) ? Report Date: ??05/20/2007 13:05 End of Report Specimen Performing Organization Address City/State/ZIP Code Phon e Number [facility] [address] [place] [address] SERVICES [facility] [address] [place] [address] documented in this encounter Visit Diagnoses Not on filedocumented in this encounter Care Teams Bakery Machine Mechanic Supervisor Relationship Specialty Start Date End Date Unknown, Provider, PCP - General 07/21/09 05/02/10 documented as of this encounter
--- OUTSIDE RECORDS SUMMARY | 2021-10-20 08:06 | XMS_ITS | Encounter Summary ---
:1985 Author Organization [facility] Address [address] [place] [address] Care Team Providers Name Role Phone Unknown, Provider Primary Care Provider Encounter Details Date Type Department Care Team Description 11/20/2005 Results Only [facility] - Irasema Krishnan, Cassidy del angel, conversion MULTIMEDIA PRODUCER [address] [place] [address] [place] [address] [phone] (Wo rk) Social History Tobacco Use Types Packs/Day Years Used Date Never Assessed Sex Assigned at Date Recorded Not on file documented as of this encounter Plan of Treatment Not on filedocumented as of this encounter Procedures Procedure Name Priority Date/Time Associated Diagnosis Comme nts CYTOPATHOLOGY Routine 11/20/2005 0:00 EDT Results for this procedure are i n the results section . documented in this encounter Results CYTOPATHOLOGY (11/20/2005 0:00 EDT) Pathology Report: CYTOPATHOLOGY REPORT [facility] Reports generated via electronic interface contain dominik ginal data; however they are lacking the format of the original re port. Caution should be taken when reading/interpreting unfo rmatted reports. Name: ? SHIRLENE PARKS ? Accession #: ? [id number] : ? 1985 (Age: 20) ??F ?Collect Date: ? 11/05 Location: ? [facility] ? Receive Date : ? 11/22/2005 Provider: ?MOSHE KIMBODEAU MULTIMEDIA PRODUCER Copy to: ? Specimen/Source: ? ThinPrep Pap Test, Cervix/Endocervix, processed on [employer] ThinPrep Imaging System, with manual evaluation Last Menstrual Period: ? 09/29/05 Previous Gynecologic Pathology: ? ANDREA I+II: 2003 ? SPECIMEN ADEQUACY ? Satisfactory for Evaluation - transformation zone component present GENERAL CATEGORIZATION ? Epithelial Cell Abnormality INTERPRETATION ? Squamous Cell Abnormality - Atypical squamous c ells, cannot exclude ? high grade squamous intraepithelial lesion (HSIL). Shift in vdaim present suggestive of bacterial vaginos is. EDUCATIONAL NOTES/RECOMMENDATIONS ? [facility] recommends miguel wing the 2001 Consensus Guidelines for the Management of Women with Cervical Cytological Abnormalities (LYNNE Johnson,2002;287:2120-9). Management algorithms have b een distributed by [facility] and are available online at www.ASCCP.org. ? Document reviewed and electronically signed by: ? Reuben Del Rosario MD ? Report Date: ??11/28/2005 13:56 End of Report Specimen Performing Organization Address City/State/ZIP Code Phon e Number [facility] [address] [place] [address] [facility] [address] [place] [address] documented in this encounter Visit Diagnoses Not on filedocumented in this encounter Care Teams Watermelon Harvesting Supervisor Relationship Specialty Start Date End Date Unknown, Provider, PCP - General 07/21/09 05/02/10 documented as of this encounter
--- OUTSIDE RECORDS SUMMARY | 2021-10-20 08:06 | XMS_ITS | Encounter Summary ---
:1985 Author Organization [facility] Address [address] [place] [address] Care Team Providers Name Role Phone Talya Machado MD Primary Care Provider [phone] Encounter Details Date Type Department Care Team Description 04/17/2011 Results Only [facility] Hina Prescott, Laboratory Services - [address] [address] [phone] Social History Tobacco Use Types Packs/Day Years [...] Name Priority Date/Time Associated Diagnosis Comme nts PAP TEST- RESULT Routine 04/17/2011 0:00 EDT Resu lts for this ONLY procedure are i n the results section. documented in this encounter Results PAP TEST- RESULT ONLY (04/17/2011 0:00 EDT) Pathology Report: CYTOPATHOLOGY REPORT [facility] Reports generated via electronic interface contain dominik ginal data; however they are lacking the format of the original re port. Caution should be taken when reading/interpreting unfo rmatted reports. Name: ? SHIRLENE PARKS ? Accession #: ? [id number] : ? 1985 (Age: 25) ??F ?Collect Date: ? 04/05 Location: ? [facility] ? Receive Date: ? 04/19/2011 Provider: ?HINA PRESCOTT [facility] Copy to: ? Specimen/Source: ? Pap Test, Cervix, ThinPrep Imaging System with manual evaluation Last Menstrual Period: ? SPECIMEN ADEQUACY ? Satisfactory for Evaluation - transformation zone component present GENERAL CATEGORIZATION ? Negative for Intraepithelial Lesion or Malignan cy INTERPRETATION ? Reactive cellular maryuri nges associated with inflammation present (includes repair). Shift in vadim present suggestive of bacterial vaginos is. ? Document reviewed and electronically signed by: ? MEI OSORIO MD ? Report Date: ??04/24/2011 14:39 End of Report Specimen Performing Organization Address City/State/ZIP Code Phon e Number [facility] [address] [place] [address] [facility] [address] [place] [address] documented in this encounter Visit Diagnoses Not on filedocumented in this encounter Additional Health Concerns Infection Onset Date Last Indicated Resolved Time MRSA 05/06/2010 05/06/2010 documented as of this encounter Care Teams Zinc Miner Blasting Relationship Specialty Start Date End Date Talya Machado MD PCP - General 02/05/[address] [place] [address] [address] [place] [phone] documented as of this encounter
--- OUTSIDE RECORDS SUMMARY | 2021-10-20 08:06 | XMS_ITS | Encounter Summary ---
:1985 Author Organization [facility] Address [address] [place] [address] Care Team Providers Name Role Phone Talya Machado MD Primary Care Provider [phone] Encounter Details Date Type Department Care Team Description 05/28/2014 Results Only [facility]- PRISM Kim Teague, [facility] [address] [place] [phone] Social History Tobacco Use Types Packs/Day Years Used Date Current Every Day Smoker 0.25 12 Smokeless Tobacco: Never Used Alcohol Use Standard Drinks/Week Comments Yes 0 (1 standard drink = 0.6 oz pure alcoho l) once a month Alcohol Habits Answer Date Recorded How often do you have a drink containing alcohol? Not asked How many drinks containing alcohol do you have on a Not aske d typical day when you are drinking? How often do you have six or more drinks on one occasion? No t asked Comment: once a month 01/19/2012 Sex Assigned at Date Recorded Not on file documented as of this encounter Plan of Treatment Not on filedocumented as of this encounter Procedures Procedure Name Priority Date/Time Associated Diagnosis Comme nts PAP TEST- RESULT Routine 05/28/2014 0:00 EDT Resu lts for this ONLY procedure are i n the results section. documented in this encounter Results PAP TEST- RESULT ONLY (05/28/2014 0:00 EDT) Pathology Report: CYTOPATHOLOGY REPORT [facility] Reports generated via electronic interface contain dominik ginal data; SERVICES however they are lacking the format of the original re port. Caution should be taken when reading/interpreting unfo rmatted reports. Name: ? SHIRLENE PARKS ? Accession #: ? [id number] ? : ? 1985 (Age: 28) ??F ?Collect Da te: ? 05/28/2014 ? Location: ? [facility] ? Receive Date: ? 015 ? Provider: KIM TEAGUE CNM Copy to: MARKELL VITALE FOOD TASTER ? Final Report SPECIMEN ADEQUACY ? Satisfactory for Evaluation - transformation zone component present - scant squamous epithelial component secondary to exc essive blood - scant squamous epithelial component secondary to exc essive inflammation GENERAL CATEGORIZATION ? Negative for Intraepithelial Lesion or Malignan cy INTERPRETATION ? Reactive cellular maryuri nges associated with inflammation present (includes repair). Last Menstrual Period: ? Menstrual/ Status: ?? Specimen/Source: ??Pap Test, Cervix, ThinPrep Imaging System with manual evaluation Document reviewed and electronically signed by: ? BUCK HOPSON MD ? Report ??Date: 06/10/2014 17:06 HPV with Pap Test ? Date Ordered: ? 06/08/2014 ? Status: ?? Signed Out ?Date Complete: ? 06/12/2014 ? By: ??S ystem Interface ? Date Reported: ? 06/12/2014 ? Interpretation RESULT: Negative for HPV. No E6 or E7 mRNA is detected from HPV types 16,18,31,3 3,35, 39,45,51,52,56,58,59,66, and 68 by plastics production machine operator media nickolas luna. Comments Document reviewed and electronically signed by: ? System Interface ? Report date: 06/12/2014 By the signature above, the attending physician certif ies that he/she has personally conducted a gross and/or microscopic examin ation of the described specimens and rendered or confirmed the above diagnosi s. End of Report Specimen Performing Organization Address City/State/ZIP Code Phon e Number [facility] [address] [place] [address] SERVICES documented in this encounter Visit Diagnoses Not on filedocumented in this encounter Additional Health Concerns Infection Onset Date Last Indicated Resolved Time MRSA 05/06/2010 05/06/2010 documented as of this encounter Care Teams Club Former Relationship Specialty Start Date End Date Talya Machado MD PCP - General 02/05/[address] [place] [address] [address] [place] [phone] documented as of this encounter
--- OUTSIDE RECORDS SUMMARY | 2021-10-20 08:06 | XMS_ITS | Encounter Summary ---
:1985 Author Organization [facility] Address [address] [place] [address] Care Team Providers Name Role Phone Unknown, Provider Primary Care Provider Encounter Details Date Type Department Care Team Description 11/14/2006 Results Only [facility] - Irasema Richardson, Fifi spivey, conversion AUGER PRESS OPERATOR [address] [facility] [address] [place] [address] [place] [address] [phone] (Wo rk) Social History Tobacco Use Types Packs/Day Years Used Date Never Assessed Sex Assigned at Date Recorded Not on file documented as of this encounter Plan of Treatment Not on filedocumented as of this encounter Procedures Procedure Name Priority Date/Time Associated Comments Diagnosis HPV DETECTION, HIGH Routine 11/14/2006 11:25 Resu lts for this RISK TYPES EDT procedure are i n the results section. CYTOPATHOLOGY Routine 11/14/2006 0:00 Results for this EDT procedure are i n the results section. documented in this encounter Results HUMAN PAPILLOMA VIRUS DNA TEST (11/14/2006 11:25 EDT) Specimen Description Cervix, ThinPrep [facility] vial Result Negative for HPV [facility] types 16, 18, 31, 33, 35, 39, 45, 51, 52, 56, 58, 59, and 68. Report Status Final [facility] [id number] Specimen Performing Organization Address City/State/ZIP Code Phon e Number [facility] [address] [place] [address] SERVICES [facility] [address] [place] [address] CYTOPATHOLOGY (11/14/2006 0:00 EDT) Pathology Report: CYTOPATHOLOGY REPORT [facility] Reports generated via electronic interface contain dominik ginal data; however they are lacking the format of the original re port. Caution should be taken when reading/interpreting unfo rmatted reports. Name: ? SHIRLENE PARKS ? Accession #: ? [id number] : ? 1985 (Age: 21) ??F ?Collect Date: ? 11/05 Location: ? [facility] ? Receive Date : ? 11/16/2006 Provider: ?[facility] Copy to: ? Specimen/Source: ? ThinPrep Pap Test, Vagina, processed on [employer] ThinPrep Imaging System, with manual evaluation Last Menstrual Period: ? 1 wk Treatment History: ? Cryotherapy Miscellaneous treatment: LLETZ Other: ? Additional clinical information: H/o Lymphoma HPVDX - HPV testing requested regardless of diag nosis on current ThinPrep Pap test. ? SPECIMEN ADEQUACY ? Satisfactory for Evaluation - transformation zone component present GENERAL CATEGORIZATION ? Epithelial Cell Abnormality INTERPRETATION ? Squamous Cell Abnormality - Low grade squamous intraepithelial lesion (LSIL). EDUCATIONAL NOTES/RECOMMENDATIONS ? [facility] recommends miguel wing the 2001 Consensus Guidelines for the Management of Women with Cervical Cytological Abnormalities (JAM Elizabeth,2002;287:2120-9). Management algorithms have b een distributed by [facility] and are available online at www.ASCCP.org. ? Document reviewed and electronically signed by: ? Reuben Del Rosario MD ? Report Date: ??11/23/2006 10:06 End of Report Specimen Performing Organization Address City/State/ZIP Code Phon e Number [facility] [address] [place] [address] SERVICES [facility] [address] [place] [address] documented in this encounter Visit Diagnoses Not on filedocumented in this encounter Care Teams Tick Eradicator Relationship Specialty Start Date End Date Unknown, Provider, PCP - General 07/21/09 05/02/10 documented as of this encounter
--- OUTSIDE RECORDS SUMMARY | 2021-10-20 08:06 | XMS_ITS | Encounter Summary ---
:[address] [facility] Address [address] [place] [address] Care Team Providers Name Role Phone Unknown, Provider Primary Care Provider Encounter Details Date Type Department Care Team Description 04/16/2006 Results Only [facility] - Irasema Krishnan, Cassidy del angel, conversion LAUNDRY BAG PUNCH OPERATOR [address] [place] [address] [place] [address] [phone] (Wo rk) Social History Tobacco Use Types Packs/Day Years Used Date Never Assessed Sex Assigned at Date Recorded Not on file documented as of this encounter Plan of Treatment Not on filedocumented as of this encounter Procedures Procedure Name Priority Date/Time Associated Diagnosis Comme nts CYTOPATHOLOGY Routine 04/16/2006 0:00 EDT Results for this procedure are i n the results section . documented in this encounter Results CYTOPATHOLOGY (04/16/2006 0:00 EDT) Pathology Report: CYTOPATHOLOGY REPORT [facility] Reports generated via electronic interface contain dominik ginal data; however they are lacking the format of the original re port. Caution should be taken when reading/interpreting unfo rmatted reports. Name: ? SHIRLENE PARKS ? Accession #: ? [id number] : ? 1985 (Age: 20) ??F ?Collect Date: ? 04/05 Location: ? [facility] ? Receive Date : ? 04/19/2006 Provider: ?MOSHE DOUGLASSAU LAUNDRY BAG PUNCH OPERATOR Copy to: ? Specimen/Source: ? ThinPrep Pap Test, Cervix/Endocervix, processed on [employer] ThinPrep Imaging System, with manual evaluation Last Menstrual Period: ? 04/10/06 Hormonal/Contraceptive Status: ? Oral contraceptives Treatment History: ? Miscellaneous treatment: LEETZ 12/11 Other: ? Additional clinical information: Acute and Chronic Cer vicitis ? SPECIMEN ADEQUACY ? Satisfactory for Evaluation - transformation zone component present GENERAL CATEGORIZATION ? Epithelial Cell Abnormality INTERPRETATION ? Squamous Cell Abnormality - Low grade squamous intraepithelial lesion (LSIL). EDUCATIONAL NOTES/RECOMMENDATIONS ? [facility] recommends oswaldoo wing the 2001 Consensus Guidelines for the Management of Women with Cervical Cytological Abnormalities (JAM A,2002;287:2120-9). Management algorithms have b een distributed by [facility] and are available online at www.ASCCP.org. ? Document reviewed and electronically signed by: ? BUCK HOPSON MD ? Report Date: ??04/23/2006 17:38 End of Report Specimen Performing Organization Address City/State/ZIP Code Phon e Number [facility] [address] [place] [address] SERVICES [facility] [address] [place] [address] documented in this encounter Visit Diagnoses Not on filedocumented in this encounter Care Teams Food Trades Assistants Relationship Specialty Start Date End Date Unknown, Provider, PCP - General 07/21/09 05/02/10 documented as of this encounter
--- OUTSIDE RECORDS SUMMARY | 2021-10-20 08:06 | XMS_ITS | Encounter Summary ---
:1985 Author Organization [facility] Address [address] [place] [address] Care Team Providers Name Role Phone None, Provider Primary Care Provider Unavailable Reason for Visit Reason Comments Follow-up abscess on buttocks seen yes terday at [facility] Encounter Details Date Type Department Care Team Description 05/08/2010 Hospital Encounter [facility] Ronda Angulo Methicillin resistant Staph aureus culture positive; Urgent Care - Lizzy Mohamud PA-C Abdominal pain of unknown etiology [address] [address] [place], [place] [phone] Social History Tobacco Use Types Packs/Day Years Used Date Current Every Day Smoker 0.25 12 Smokeless Tobacco: Never Used Alcohol Use Standard Drinks/Week Comments No 0 (1 standard drink = 0.6 oz pure alcoho l) Sex Assigned at Date Recorded Not on file documented as of this encounter Last Filed Vital Signs Vital Sign Reading Time Taken Comments Blood Pressure 92/60 05/08/2010 0943 EDT Pulse 76 05/08/2010 0943 EDT Temperature 36.6 ??C (97.9 ??F) 05/08/2010 0943 EDT Respiratory Rate 16 05/08/2010 0943 EDT Oxygen Saturation - - Inhaled Oxygen Concentration - - Weight - - Height - - Body Mass Index - - documented in this encounter Discharge Instructions Emma Spencer PA - 05/08/2010 Watch symptoms of abdominal pain what makes it better or what makes it worse, if concerns follow up here or the emergency room. Informed provider of antibiotics. Continue antibiotics warm compresses for abscess. AttachmentsThe following attachments cannot be sent through Care Everywhere. ABDOMINAL PAIN: AFTER YOUR VISIT TO THE EMERGENCY ROOM (CROATIAN)MRSA: AFTER YOUR VISIT (CROATIAN)documented in this encounter Medications at Time of [...] Departure Means Destination Home or Self Care Car Home documented in this encounter ED Notes Emma Angulo PA - 05/08/2010 1015 EDT DOS: 05/08/2010 Chief Complaint Patient presents with ??? Follow-up abscess on buttocks seen yesterday at [facility] The patient is a 24 y.o. female who presents today with Follow-up Wound Check She was treated in the ED 2 to 3 days ago. Previous treatment in the ED includes I&D of abscess and oral antibiotics. There has been no treatment since the wound repair. There has been no drainage from the wound. There is no redness present. There is no swelling present. The pain has improved. Shehas no difficulty moving the affected extremity or digit. Review of Systems Constitutional: Negative for fever, activity change and fatigue. Eyes: Negative. Respiratory: Negative. Negative for cough. Cardiovascular: Negative. Gastrointestinal: Positive for vomiting (last emesis was yesterday, patient has been vomiting for a few days). Negative for nausea, diarrhea, constipation and blood in stool. Abdominal pain: patient notes lower crampy abdominal pain since this morning. Genitourinary: Negative for menstrual problem. Musculoskeletal: Negative. Negative for back pain. Skin: Positive for wound. Negative for rash. Neurological: Positive for headaches. Light-headedness: off-and-on for a few days. All other systems reviewed and are negative. No current facility-administered medications on file. Current [...] History reviewed. No pertinent family history. BP 92/60 Pulse 76 Temp(Src) 97.9 ??F (36.6 ??C) (Oral) Resp 16 Physical Exam Nursing note and vitals reviewed. Constitutional: She is oriented to person, place, and time. She appears well- developed and well-nourished. No distress. HENT: Head: Normocephalic. Eyes: Extraocular motions are normal. Pupils are equal, round, and reactive to light. Neck: Normal range of motion. Cardiovascular: Normal rate. Pulmonary/Chest: Effort normal. No respiratory distress. Abdominal: Soft. Bowel sounds are normal. She exhibits no distension. Tenderness (mild right lower quadrant tenderness and left lower quadrant tenderness no rebound no guarding increased borborygmi.) is present. She has no rebound and no guarding. Neurological: She is alert and oriented to person, place, and time. Skin: Skin is warm and dry. She is not diaphoretic. Lesion on left buttocks healing well nearly resolved right buttocks which had fallen out lesion starting to heal. Tender induration no pus expressed. wet compresses applied to open lesion. Unable to express any fluid probed with tweezers lesion is open and not very deep Consult orders: None PCP: MD MEJIA PCP No results found for this visit on 05/08/10. Radiology orders: None Procedures Course: Discussed with patient and her partner unsure of etiology of abdominal pain possibly beginning of her menstrual cycle. Patient will follow abdominal pain she knows to come here or the emergency room ifgetting worse as well as informed provider that she is on antibiotics. Patient has decided to continue the clindamycin since MRSA susceptible to both that and Bactrim. Patient is to do frequent warm compresses at home to keep I&D open and draining as needed. No diagnosis found. Dr. Wilber Angulo was available for consultation during my care of this patient. 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
--- OUTSIDE RECORDS SUMMARY | 2021-10-20 08:06 | XMS_ITS | Encounter Summary ---
:1985 Author Organization [facility] Address [address] [place] [address] Care Team Providers Name Role Phone Talya Machado MD Primary Care Provider [phone] Reason for Visit Reason Comments Foot Injury Last night was standing on b ed hanging a bulletin board, twisted left ankle, fell off bed, and fransisco ded on left foot. c/o pain left foot, top and bottom, and pain medial mall eolus. Good color, temp, sensation, 2+ DP. Encounter Details Date Type Department Care Team Description 02/05/2011 Emergency [facility] Richard Nash MD [address] [place] [address], [address] [place] [address] Sprain of left foot Emergency Department - Emergency, MD Rav[facility] [address] [place] [address] Social History Tobacco Use Types Packs/Day Years [...] Reading Time Taken Comments Blood Pressure 110/65 02/05/2011 0825 EST Pulse 99 02/05/2011 0825 EST Temperature 37 ??C (98.6 ??F) 02/05/2011 0825 EST Respiratory Rate 14 02/05/2011 0825 EST Oxygen Saturation 98% 02/05/2011 0825 EST Inhaled Oxygen Concentration - - Weight 63.5 kg (140 lb) 02/05/2011 0826 EST Height 172.7 cm (5' 8) 02/05/2011 0826 EST Body Mass Index 21.29 02/05/2011 0826 EST documented in this encounter Discharge Instructions InstructionsClRichard sims MD - 02/05/2011 Elevate and ice foot. Use ludwig wrap and crutches as needed. Resume weight-bearing in 2-3 days as tolerated. Follow-up with Dr. Machado if no improvement in 5-7 days. Use ibuprofen 400-600 mg every 6 hoursas needed for pain. AttachmentsThe following attachments cannot be sent through Care Everywhere.FOOT SPRAIN: AFTER YOUR VISIT (BENGALI)documented in this encounter Medications at Time of [...] Departure Means Destination Home or Self Care Walk-out Home documented in this encounter ED Notes Richard Nash MD - 02/05/2011 0910 EST DOS: 02/05/2011 Chief Complaint Patient presents with ??? Foot Injury Last night was standing on bed hanging a bulletin board, twisted left ankle, fell off bed, and landed on left foot. c/o pain left foot, top and bottom, and pain medial malleolus. Good color, temp, sensation, 2+ DP. The patient is a 25 y.o. female who presents today with Foot Injury The history is provided by the patient. Foot Injury The current episode started yesterday (last evening). The onset was sudden (fell from several feet striking (?) inverted left foot against hard floor). The problem has been unchanged. The problem is moderate. The symptoms are relieved by nothing. The symptoms are aggravated by movement and activity. Pertinent negatives include no fever, no abdominal pain, no headaches and no rash. She has been behaving normally. She has received no recent medical care. Review of Systems Constitutional: Negative for fever and chills. HENT: Negative for neck stiffness. Eyes: Negative for visual disturbance. Respiratory: Negative for shortness of breath. Cardiovascular: Negative for chest pain. Gastrointestinal: Negative for abdominal pain. Genitourinary: Negative for dysuria. Musculoskeletal: Negative for back pain. Skin: Negative for rash. Neurological: Negative for headaches. Psychiatric/Behavioral: Negative for confusion. All other systems reviewed and are negative. Past Medical History Diagnosis Date ??? Thyroid disease ??? Cancer 2003 Hodgkins Lymphoma ??? Psychiatric problem anxiety, depression ??? PTSD (post-traumatic stress disorder) ??? IBS (irritable bowel syndrome) Past Surgical History Procedure Date ??? Skin biopsy neck ??? Tympanostomy tube placement No Known Allergies History Substance Use Topics ??? Smoking status: Current Everyday Smoker -- 0.2 packs/day for 12 years ??? Smokeless tobacco: Never Used ??? Alcohol Use: Yes rarely No family history on file. Vital Signs Temp: 37 ??C (98.6 ??F) Temp src: Tympanic Pulse: 99 Resp: 14 SpO2: 98 % SpCO: 1 % BP: 110/65 mmHg BP Device: BP Machine Patient Position: Sitting BP Cuff Location: Left arm O2 Device: None (Room air) Physical Exam Nursing note and vitals reviewed. Constitutional: She appears well-developed and well-nourished. HENT: Head: Normocephalic and atraumatic. Right Ear: External ear normal. Left Ear: External ear normal. Nose: Nose normal. Eyes: Pupils are equal, round, and reactive to light. Right eye exhibits no discharge. Left eye exhibits no discharge. Neck: Normal range of motion. Neck supple. No tracheal deviation present. Cardiovascular: Normal rate, regular rhythm and normal heart sounds. Pulmonary/Chest: Breath sounds normal. No respiratory distress. Abdominal: Soft. There is no tenderness. Musculoskeletal: Normal range of motion. Left ankle: She exhibits normal range of motion, no swelling and no deformity. no tenderness. Left foot: She exhibits bony tenderness (MT's 1-5 most in 1 and 2). She exhibits no swelling and nodeformity. Neurological: She is alert. She has normal strength. No sensory deficit. Skin: No rash noted. Psychiatric: She has a normal mood and affect. Radiology orders: FOOT 3 OR MORE VIEWS FOOT 3 OR MORE VIEWS Final result not shown here.: Procedures ED Course: A medical screening exam was performed. 25-year-old female with twisting injury to the left forefoot. Examination reveals diffuse pain across the metatarsals, medial greater than lateral. There is no significant edema. X-rays are normal withno evidence of fracture or disruption of joint spaces. Patient is placed in an Ludwig wrap and providedwith crutches for symptomatic therapy. Disposition: Discharged The patient's pain was managed to an adequate level weighing risk vs. benefit of further medications. Upon departure from the Emergency Department, the patient's pain was 5 on a zero to ten scale. Condition at departure from the Emergency Department: Stable Discharge Prescriptions New Prescriptions No Discharge Prescriptions for this patient MDM Number of Diagnoses or Management Options Sprain of left foot: Diagnosis management comments: 3 Amount and/or Complexity of Data Reviewed Tests in the radiology section of CPT??: ordered and reviewed Review and summarize past medical records: yes Independent visualization of images, tracings, or specimens: yes 1. Sprain of left foot PCP: Talya Machado MD 02/07/2011 10:14 documented in this encounter Miscellaneous Notes Scanned Note-Null - Cylinder Die Machine Helper, Scan - 02/10/2011 0004 EST documented in this encounter Plan of Treatment Not on filedocumented as of this encounter Procedures Procedure Name Priority Date/Time Associated Diagnosis Comme nts FOOT 3 OR MORE STAT 02/05/2011 9:14 EST Result s for this VIEWS procedure are i n the results section. documented in this encounter Results FOOT 3 OR MORE VIEWS (02/05/2011 9:14 EST) Anatomical Region Laterality Modality Other Specimen Narrative [facility] - 02/05/2011 9:32 EST Left foot February 05, 2011 History: Injury, medial metatarsal pain Three views were obtained. Findings: The soft tissues and bony stru ctures are normal. Specifically, no fracture is seen. The j oint spaces are normal. Impression: Normal exam. Procedure Note 02/05/2011 Left foot February 05, 2011 History: Injury, medial metatarsal pain Three views were obtained. Findings: The soft tissues and bony stru ctures are normal. Specifically, no fracture is seen. The j oint spaces are normal. Impression: Normal exam. Performing Organization Address City/State/ZIP Code Phon e Number [facility] documented in this encounter Visit Diagnoses Diagnosis Sprain of left foot Sprain of foot, unspecified site documented in this encounter Discontinued Medications Medication Sig Discontinue Reason Start Date End Date oxycodone-acetaminophen Take 1-2 Tabs by 09/26/2010 02/05/2011 (PERCOCET) 5-325 mg per mouth every 4 hours tablet as needed for Pain. ibuprofen (MOTRIN) 600 Take 1 Tab by mouth 08/07/2010 02/05/2011 mg tablet 3 times daily. documented as of this encounter Historical Medications This list may reflect changes made after this encounter. Medication Sig Dispensed Refills Start Date End Date lansoprazole (PREVACID) 15 Take 15 mg by mouth 0 mg capsule daily. fluoxetine (PROZAC) 20 mg Take 40 mg by mouth 0 01/19/2012 capsule daily. added in this encounter Additional Health Concerns Infection Onset Date Last Indicated Resolved Time MRSA 05/06/2010 05/06/2010 documented as of this encounter Care Teams Rivet Tosser Relationship Specialty Start Date End Date Talya Machado MD PCP - General 02/05/[address] [place] [id number] documented as of this encounter
--- OUTSIDE RECORDS SUMMARY | 2021-10-20 08:06 | XMS_ITS | Encounter Summary ---
:1985 Author Organization [facility] Address [address] [place] [address] Care Team Providers Name Role Phone Unavailable Primary Care Provider Unavailable Encounter Details Date Type Department Care Team Description 09/23/2007 Before PRISM Converted [facility] - Michelle Rangel, Visit (Maple) Maple conversion WATCH ADJUSTER [address] [place] [address] [place], [place] [phone] Social History Tobacco Use Types Packs/Day Years Used Date Never Assessed Sex Assigned at Date Recorded Not on file documented as of this encounter Plan of Treatment Not on filedocumented as of this encounter Procedures Procedure Name Priority Date/Time Associated Diagnosis Comme nts CYTOPATHOLOGY Routine 09/23/2007 0:00 EDT Results for this procedure are i n the results section . documented in this encounter Results CYTOPATHOLOGY (09/23/2007 0:00 EDT) Pathology Report: CYTOPATHOLOGY REPORT ? [facility] Reports generated via [email or web address] interface contain original data; ? however they are lacking the format of the original report. ? Caution should be taken when reading/interpreting unformatted reports. ? Name: ? CHARLY SHIRLENE ? Accession #: ? [id number] ? : ? 1985 (Age: 22) ??F ?Collect Date: ? 09/23/2007 ? Location: ? [facility] ? Receive Date: ? 09/25/2007 ? Provider: ?MICHELLE GALVIN WATCH ADJUSTER ? Copy to: ?THOMAS MONTALVO MD ? Specimen/Source: ? ThinPrep Pap Test, Cervix/Endocervix, processed on [employer] ThinPrep Imaging System, wit h manual evaluation ? Last Menstrual Period: ? 2-3 weeks ? Previous Gynecologic Patholo gy: ? ANDREA I+II ? HPV ? Treatment History: ? Cryotherapy ? Miscellaneous treatment: LLE TZ, hodgkins lymphoma ? SPECIMEN ADEQUACY ? Satisfactory for Eval uation ? - transformation zone compon ent present ? - scant squamous epithelial component ? GENERAL CATEGORIZATION ? Negative for Intraepi thelial Lesion or Malignancy ? INTERPRETATION ? Reactive cellular maryuri nges associated with inflammation present (includes ?? repair). ? Document reviewed and electr onically signed by: ? Larry B. Ambaye, MD ? Report Date: ??08/25/ 2008 14:48 ? End of Report ? Specimen Performing Organization Address City/State/ZIP Code Phon e Number [facility] [address] [place] [address] SERVICES [facility] [address] [place] [address] documented in this encounter Visit Diagnoses Not on filedocumented in this encounter
--- OUTSIDE RECORDS SUMMARY | 2021-10-20 08:06 | XMS_ITS | Encounter Summary ---
:1985 Author Organization [facility] Address [address] [place] [address] Care Team Providers Name Role Phone Jasmin Baez MD Primary Care Provider Unavailable Reason for Visit Reason Comments Dental Pain left side of teeth Encounter Details Date Type Department Care Team Description 07/06/2010 Hospital Encounter [facility] Donis Miguel, dental Urgent Care - Lizzy Johnson NP [address] [address] [phone] (Wo rk) Social History Tobacco Use Types Packs/Day Years Used Date Current Every Day Smoker 0.25 12 Smokeless Tobacco: Never Used Alcohol Use Standard Drinks/Week Comments No 0 (1 standard drink = 0.6 oz pure alcoho l) Sex Assigned at Date Recorded Not on file documented as of this encounter Last Filed Vital Signs Vital Sign Reading Time Taken Comments Blood Pressure 96/58 07/06/20102115 EDT Pulse 92 07/06/20102115 EDT Temperature 36.7 ??C (98.1 ??F) 07/06/2010 211 EDT Respiratory Rate 14 07/06/2010 211 EDT Oxygen Saturation - - Inhaled Oxygen Concentration - - Weight - - Height - - Body Mass Index - - documented in this encounter Discharge Instructions Alisha Chau NP - 07/06/2010 Continue to use ibuprofen (400 mg every 4 hours) and apply hot and cold pack alternating with oral anesthetic that has been working for you. Start antibiotic of clindamycin 300 mg every 6 hours. Use starter pack and then use prescription. Call for dental follow-up this week. See numbers from for dentists or call [facility]. AttachmentsThe following attachments cannot be sent through Care Everywhere. DENTAL PAIN: AFTER YOUR VISIT (LIBYAN)documented in this encounter Medications at Time of Discharge Medication Sig Dispensed Refills Start Date End Date LEVOTHYROXINE SODIUM Take 75 mcg by 0 (LEVOTHYROXINE ORAL) mouth. Not sure of dose clindamycin (CLEOCIN) 150 Take 2 Caps by 36 Cap 0 201008/07/2010 mg capsule mouth 4 times daily. documented as of this encounter Ordered Prescriptions Prescription Sig Dispensed Refills Start Date End Date clindamycin (CLEOCIN) 150 Take 2 Caps by mouth 36 Cap 0 07/06/2010 08/07/2010 mg capsule 4 times daily. clindamycin (CLEOCIN) 150 Take 2 Caps by mouth 36 Cap 0 07/06/2010 07/06/2010 mg capsule 3 times daily for 6 days. clindamycin 150 mg cap Take 1 Package by 1 Package 0 201007/06/2010 (CLEOCIN) 150 mg Cap mouth once. documented in this encounter Discharge Disposition Disposition Code Departure Means Destination Home or Self Care Car Home documented in this encounter ED Notes Alisha Miguel NP - 07/06/20102123 EDT Images from the original note were not included. DOS: 07/06/2010 Chief Complaint Patient presents with ??? Dental Pain left side of teeth The patient is a 25 y.o. female who presents today with Dental Pain HPI Comments: Patient states she has upper left jaw throbbing and she chews on the other side of mouth. Ibuprofen and alternating hot and cold packs has been effective for pain but dosed 800 mg every 4-5 hours. Dental Pain This is a new problem. The problem has been gradually worsening (throbbing left upper jaw). The painis at a severity of 6/10. Treatments tried: Ibuprofen, alternating cold and hot packs. The treatmentprovided significant relief. The history is provided by the patient. Review of Systems Constitutional: Negative for fever. HENT: Negative for ear pain, sore throat and neck pain. Respiratory: Negative for cough. Gastrointestinal: Negative for nausea. Neurological: Positive for headaches. Current facility-administered medications Medication Dose Route Frequency Provider Last Rate Last Dose ??? clindamycin (CLEOCIN) capsule 1 Package Oral ONCE Alisha Miguel NP Last Dose: 1 Package at 07/06/102200 ??? ibuprofen (MOTRIN) tablet 400 mg 400 mg Oral Now Alisha Miguel NP Last Dose: 400 mg at 07/06/102200 Current outpatient prescriptions Medication Sig Dispense Refill ??? clindamycin (CLEOCIN) 150 mg capsule Take 2 Caps by mouth 4 times daily. 36 Cap 0 ??? DISCONTD: clindamycin 150 mg cap (CLEOCIN) 150 mg Cap Take 1 Package by mouth once. 1 Package 0 ??? DISCONTD: clindamycin (CLEOCIN) 150 mg capsule Take 2 Caps by mouth 3 times daily for 6 days. 36Cap 0 ??? DISCONTD: oxycodone-acetaminophen (PERCOCET) 5-325 mg per tablet Take 1 Tab by mouth every 6 hours as needed for Pain. 15 Tab 0 ??? LEVOTHYROXINE SODIUM (LEVOTHYROXINE ORAL) Take by mouth. Not sure of dose No Known Allergies Past Medical History Diagnosis Date ??? Thyroid disease ??? Cancer 2003 Hodgkins Lymphoma History Substance Use Topics ??? Smoking status: Current Everyday Smoker -- 0.2 packs/day for 12 years ??? Smokeless tobacco: Never Used ??? Alcohol Use: No No family history on file. BP 96/58 Pulse 92 Temp(Src) 98.1 ??F (36.7 ??C) (Temporal) Resp 14 Physical Exam Constitutional: She appears well-nourished. No distress. HENT: Head: No trismus in the jaw. Right Ear: External ear normal. Left Ear: External ear normal. Mouth/Throat: Uvula is midline, oropharynx is clear and moist and mucous membranes are normal. Eyes: Pupils are equal, round, and reactive to light. Neck: Normal range of motion. Neck supple. Cardiovascular: Normal rate, regular rhythm and normal heart sounds. Pulmonary/Chest: Effort normal and breath sounds normal. Neurological: She is alert. Skin: Skin is warm and dry. Psychiatric: She has a normal mood and affect. Consult orders: None PCP: JASMIN BAEZ (BETH)MD No results found for this visit on 07/06/10. Radiology orders: None Procedures Course: A medical screening exam was performed. Admit VSS. She states she had 2-3 percocet at beginning of dental infection but has not had any recently. She had some left over pills from previous abscess infection. Assessment: Although no visible dental infection, concern for dental abscess is present due to past history of MRSA. Due to lack of dental care in this state, will cover for possible occult MRSA abscess (Clindamycin starter pack and script given) and advised calling [facility]. for follow-upor to call her dentist in [place] whom she called this week and cancelled. Since ibuprofen has been effective, will advise continued use of this as well as OTC oral anesthetic she has been using. Ibuprofen 400 mg given in clinic. Disposition: Discharged The patient's pain was managed to an adequate level weighing risk vs. benefit of further medications. Upon departure from the [facility], the patient's pain was 6 on a zero to ten scale. Condition at departure from the [facility]: Stable 1. Pain, dental (525.9AG) Dr. Wilber Angulo was available for consultation during my care of this patient. MDM Number of Diagnoses or Management Options Pain, dental: Amount and/or Complexity of Data Reviewed Decide to obtain previous medical records or to obtain history from someone other than the patient: yes (05/07/10- MRSA abscess treated with clindamycin. 05/06/10- [place] [facility]- 05/06/10script filled for Percocet #15.) 07/06/2010 23:13 Maria M Lugo RN - 07/06/2010 2013 EDT Patient presents with left sided dental pain onset 6 days ago, states that she missed 2 dental appointments due to lack of ride from work. States that dentist referred her here. ?infection documented in this encounter Miscellaneous Notes Scanned Note-Null - Engraver Apprentice Decorative, Scan - 07/06/2010 0000 EDT Scanned Note-Null - Engraver Apprentice Decorative, Scan - 07/06/2010 0000 EDT documented in this encounter Plan of Treatment Not on filedocumented as of this encounter Visit Diagnoses Diagnosis Pain, dental Unspecified disorder of the teeth and bernal pporting structures documented in this encounter Administered Medications Inactive Administered Medications - up to 3 most recent administrations Medication Order MAR Action Action Date Dose Rate Site clindamycin (CLEOCIN) capsule Given 07/06/2010 22:01 EDT 1 Package 1 Package, oral, Once (NO Time Specified), 1 dose, Starting on Sun07/06/10 at 2146, Until Sun07/06/10 at 2201, Routine ibuprofen (MOTRIN) tablet 400 mg Given 07/06/2010 22:01 EDT 400 mg 400 mg, oral, NOW X1, 1 dose, On Sun07/06/10 at 2215, Routine documented in this encounter Discontinued Medications Medication Sig Discontinue Reason Start Date End Date oxycodone-acetaminophen Take 1 Tab by mouth Therapy completed 05/0507/06/2010 (PERCOCET) 5-325 mg per every 6 hours as tablet needed for Pain. clindamycin 150 mg cap Take 1 Package by Error 07/06/2010 07/06/2010 (CLEOCIN) 150 mg Cap mouth once. clindamycin (CLEOCIN) Take 2 Caps by mouth 07/06/2010 07/06/2010 150 mg capsule 3 times daily for 6 days. documented as of this encounter Active and Recently Administered Medications Times are shown in EDT. Scheduled Medication Order 07/04/2010 07/05/2010 07/06/2010 clindamycin (CLEOCIN) capsule (COMPLETED) 2200 (Given - Provider: Maria M Lugo, CHRISTEN) 1 Package, Oral, ONCE, 1 dose ibuprofen (MOTRIN) tablet 400 mg (COMPLETED) 2200 (Given - Provider: Maria M Lugo, RN) 400 mg, Oral, NOW X1, 1 dose, Sun07/06/10 at 2215 documented in this encounter Orders Nursing Count Last Ordered Date First Ordered Date VITAL SIGNS 1 07/06/2010 documented in this encounter Additional Health Concerns Infection Onset Date Last Indicated Resolved Time MRSA 05/06/2010 05/06/2010 documented as of this encounter Care Teams Import Dispatcher Relationship Specialty Start Date End Date Jasmin Baez MD PCP - General 07/06/10 02/04/[address] [place] [address], [place] [phone] documented as of this encounter
--- OUTSIDE RECORDS SUMMARY | 2021-10-20 08:06 | XMS_ITS | Clinical Summary ---
:1985 Author Organization [facility] Address [address] [place] [address] Care Team Providers Name Role Phone Talya Machado MD Primary Care Provider Allergies No known active allergies Medications Medication Sig Dispensed Refills Start Date End Date Status LEVOTHYROXINE SODIUM Take 75 mcg by 0 Active (LEVOTHYROXINE ORAL) mouth. Not sure of dose lansoprazole (PREVACID) Take 15 mg by 0 Active 15 mg capsule mouth daily. risperidone (RISPERDAL) Take 1 mg by 0 Active 0.5 mg tablet mouth daily. Surgical History Surgery Date Site/Laterality Comments SKIN BIOPSY neck TYMPANOSTOMY TUBE PLACEMENT Medical History Medical History Date Comments Thyroid disease Cancer ([facility] ([facility]) 2002 Hodgkins Lymphoma Psychiatric problem anxiety, depression PTSD (post-traumatic stress disorder) IBS (irritable bowel syndrome) Social History Tobacco Use Types Packs/Day Years [...] Assigned at Date Recorded Not on file Last Filed Vital Signs Vital Sign Reading Time Taken Comments Blood Pressure 101/61 01/19/2012 0500 EST Pulse 89 01/19/2012 0240 EST Temperature 36 ??C (96.8 ??F) 01/19/2012 0240 EST Respiratory Rate 20 01/19/2012 0500 EST Oxygen Saturation 96% 01/19/2012 0500 EST Inhaled Oxygen Concentration - - Weight 52.6 kg (116 lb) 01/19/2012 0240 EST Height 172.7 cm (5' 8) 02/05/2011 0826 EST Body Mass Index 17.64 02/05/2011 0826 EST Plan of Treatment Health Maintenance Due Date Last Done Comments Hepatitis C Screen 1985 COVID-19 Vaccine (1) 06/25/1991 Cervical Cancer Screening 05/28/2017 05/28/2014, 05/02/2012 , 04/17/2011 Additional Health Concerns Infection Onset Date Last Indicated MRSA 05/06/2010 05/06/2010 Insurance Payer Benefit Plan / Subscriber ID Effective Phone Address T ype Group Dates [employer] [id number] 2020-Pre [address] [place] [id number] [place] [phone] Care Teams Restaurant Lead Relationship Specialty Start Date End Date Talya Machado MD PCP - General 02/05/[address] [place] [phone]
--- OUTSIDE RECORDS SUMMARY | 2021-10-20 08:06 | XMS_ITS | Encounter Summary ---
:1985 Author Organization [facility] Address [address] [place] [address] Care Team Providers Name Role Phone Jasmin Baez MD Primary Care Provider Unavailable Reason for Visit Reason Comments Toe Injury stubbed toe on 09/05, left 5th toe red, swollen. Able to amb s diff Encounter Details Date Type Department Care Team Description 09/06/2010 Emergency [facility] Burns PA-C [address] [facility], [address] [place] [phone] Toe pain, left Emergency Department - Emergency, MD Ravinder [facility] [address] [place] [address] Social History Tobacco Use Types [...] Sign Reading Time Taken Comments Blood Pressure 102/59 09/06/2010 07 EDT Pulse 80 09/06/2010 07 EDT Temperature 35.3 ??C (95.5 ??F) 09/06/2010 07 EDT Respiratory Rate 14 09/06/2010 07 EDT Oxygen Saturation 97% 09/06/2010725 EDT Inhaled Oxygen Concentration - - Weight 63.5 kg (140 lb) 09/06/2010725 EDT Height 172.7 cm (5' 8) 09/06/2010725 EDT Body Mass Index 21.29 09/06/2010725 EDT documented in this encounter Discharge Instructions Clarisa Bernard PA - 09/06/2010 It is likely that your toe is broken. Take ibuprofen 400-600 mg every 6 hours (with food) and/or tyelnol 325-650 mg every 4 hours (up to 4000 mg maximum in 24 hours) As needed for pain. Ice and elevate your foot to help with pain and swelling. Can kristal tape to provide increased support. Avoid activities that worsen the pain. AttachmentsThe following attachments cannot be sent through Care Everywhere. BROKEN TOE: AFTER YOUR VISIT (FILIPINO)documented in this encounter Medications at Time of Discharge Medication Sig Dispensed Refills Start Date End Date LEVOTHYROXINE SODIUM Take 75 mcg by 0 (LEVOTHYROXINE ORAL) mouth. Not sure of dose ibuprofen (MOTRIN) 600 mg Take 1 Tab by 21 Tab 0 011 02/05/2011 tablet mouth 3 times daily. documented as of this encounter Discharge Disposition Disposition Code Departure Means Destination Home or Self Care Walk-out Home documented in this encounter ED Notes Clarisa Zaman PA - 09/06/2010 0818 EDT Images from the original note were not included. DOS: 09/06/2010 Chief Complaint Patient presents with ??? Toe Injury stubbed toe on 09/05, left 5th toe red, swollen. Able to amb s diff The patient is a 25 y.o. female who presents today with Toe Injury HPI Comments: Patient presents with right 5th toe pain, ecchymosis and swelling. She stubbed it yesterday. She reports that the pain is improving today, she is able to ambulate comfortably. She does feel some numbness in the toe. Toe Injury Associated symptoms include numbness. Review of Systems Musculoskeletal: Positive for arthralgias. Skin: Positive for color change. Neurological: Positive for numbness. Negative for weakness. Past Medical History Diagnosis Date ??? Thyroid disease ??? Cancer 2003 Hodgkins Lymphoma ??? Psychiatric problem anxiety Past Surgical History Procedure Date ??? Skin biopsy neck No Known Allergies History Substance Use Topics ??? Smoking status: Current Everyday Smoker -- 0.2 packs/day for 12 years ??? Smokeless tobacco: Never Used ??? Alcohol Use: Yes rarely History reviewed. No pertinent family history. Vital Signs Temp: 35.3 ??C (95.5 ??F) Temp src: Tympanic Pulse: 80 Resp: 14 SpO2: 97 % SpCO: 1 % BP: 102/59 mmHg O2 Device: None (Room air) Physical Exam Nursing note and vitals reviewed. Constitutional: She appears well-developed and well-nourished. No distress. Cardiovascular: Normal rate and intact distal pulses. Musculoskeletal: Feet: Skin: She is not diaphoretic. Radiology orders: None Procedures ED Course: A medical screening exam was performed. Likely broken toe, kristal taped for comfort, discussed supportive care. Disposition: Discharged The patient's pain was managed to an adequate level weighing risk vs. benefit of further medications. Upon departure from the Emergency Department, the patient's pain was 4 on a zero to ten scale. Condition at departure from the Emergency Department: Stable Discharge Prescriptions New Prescriptions No Discharge Prescriptions for this patient MDM Number of Diagnoses or Management Options Toe pain, left: Diagnosis management comments: 3 1. Toe pain, left (729.5FE) PCP: JASMIN BAEZ (MD Myla GAYTAN was available for supervision. 09/06/2010 15:39 Brittnee doan RN - 09/06/2010 0758 EDT 5th toe kristal taped to next toe. Pt states pain 4/10 on discharge, ambulatory. documented in this encounter Miscellaneous Notes Scanned Note-Null - Client Support Manager, Scan - 09/06/2010 0000 EDT documented in this encounter Plan of Treatment Not on filedocumented as of this encounter Visit Diagnoses Diagnosis Toe pain, left Pain in limb documented in this encounter Additional Health Concerns Infection Onset Date Last Indicated Resolved Time MRSA 05/06/2010 05/06/2010 documented as of this encounter Care Teams Pairing Machine Operator Relationship Specialty Start Date End Date Jasmin Baez MD PCP - General 07/06/10 02/04/[address] [place] [address], [place] [phone] documented as of this encounter
--- OUTSIDE RECORDS SUMMARY | 2021-10-20 08:06 | XMS_ITS | Encounter Summary ---
:1985 Author Organization [facility] Address [address] [place] [address] Care Team Providers Name Role Phone None, Provider Primary Care Provider Unavailable Encounter Details Date Type Department Care Team Description 05/05/[address] [facility] Moshe Newell Abscess; Urgent Care - Lizzy Chacko PA-C Cellulitis [address] [address] [place], [place] [phone] (Wo rk) Social History Tobacco Use Types Packs/Day Years Used Date Current Every Day Smoker 0.25 12 Smokeless Tobacco: Never Used Alcohol Use Standard Drinks/Week Comments No 0 (1 standard drink = 0.6 oz pure alcoho l) Sex Assigned at Date Recorded Not on file documented as of this encounter Last Filed Vital Signs Vital Sign Reading Time Taken Comments Blood Pressure 122/68 05/05/20102007 EDT Pulse 90 05/05/20102007 EDT Temperature 37 ??C (98.6 ??F) 05/05/20102007 EDT Respiratory Rate 18 05/05/20102007 EDT Oxygen Saturation - - Inhaled Oxygen Concentration - - Weight - - Height - - Body Mass Index - - documented in this encounter Discharge Instructions InstructionsMoshe Leiva PA - 05/05/2010 As we discussed, it appears that you have an infection within your skin. This is treatable with antibiotics and should be getting steadily better with the medication prescribed. If at any time the redness extends one finger breadth beyond the line drawn, if you see any red streaking, you develop a fever or see any pus you should return immediately to the clinic or go directly to the ER. AttachmentsThe following attachments cannot be sent through Care Everywhere. ANTIBIOTICS FOR SKIN CONDITIONS: AFTER YOUR VISIT (TURKISH)SKIN ABSCESS: AFTER YOUR VISIT (TURKISH)documented in this encounter Medications at Time [...] per tablet documented as of this encounter Ordered Prescriptions Prescription Sig Dispensed Refills Start Date End Date oxycodone-acetaminophen Take 1 Tab by mouth 15 Tab 0 07/06/2010 (PERCOCET) 5-325 mg per every 6 hours as tablet needed for Pain. clindamycin (CLEOCIN) 300 Take 1 Cap by mouth 40 Cap 0 0 05/05/2010 05/15/2010 mg capsule 4 times daily for 10 days. documented in this encounter Discharge Disposition Disposition Code Departure Means Destination Home or Self Care Walk-out Home documented in this encounter ED Notes Moshe Leiva PA - 05/05/20102053 EDTAssociated Order(s): INCISION AND DRAINAGE; INCISION AND DRAINAGE Images from the original note were not included. DOS: 05/05/2010 No chief complaint on file. The patient is a 24 y.o. female who presents today with No chief complaint on file. HPI Comments: This 24-year-old female patient with remote history of Hodgkin's lymphoma as well as thyroid disease who presents today for followup after being seen in this clinic at today's ago. At that time she had 2 small abscess he is on the right and left buttock. Abscess on the right buttock was larger. Both were indurated but not fluctuant and one unable to be drained at that time. Patient was instructed to return if she felt the pain was worsening, erythema was spreading or if she felt that the abscess he is ready to be lanced. Patient returns with increased pain and redness as well as the feeling that she needs an I&D. No fever, malaise, fatigue. Of note the patient had been near a person who was recently hospitalized for MRSA Patient on Bactrim. The history is provided by the patient. Review of Systems Constitutional: Negative for fever, chills, activity change, appetite change and fatigue. HENT: Negative for ear pain, congestion, sore throat, rhinorrhea and neck pain. Respiratory: Negative for cough and shortness of breath. Cardiovascular: Negative for chest pain and palpitations. Skin: Negative for rash and color change. Neurological: Negative for dizziness, syncope, weakness, numbness and headaches. Psychiatric/Behavioral: Negative for behavioral problems. The patient is not nervous/anxious. Current facility-administered medications Medication Dose Route Frequency Provider Last Rate Last Dose ??? lorazepam (ATIVAN) tablet 1 mg 1 mg Sublingual Now PINKY Baca Last Dose: 1 mg at 05/05/102058 ??? hydrocodone-acetaminophen (LORTAB;VICODIN) 5-500 mg per tablet 1 Tab 1 Tab Oral Now PINKY Baca Last Dose: 1 Tab at 05/05/102058 ??? clindamycin (CLEOCIN) capsule 300 mg 300 mg Oral Now PINKY Baca Last Dose: 300 mg at 05/05/102211 Current outpatient prescriptions Medication Sig Dispense Refill [...] No No family history on file. BP 122/68 Pulse 90 Temp(Src) 98.6 ??F (37 ??C) (Temporal) Resp 18 Physical Exam Nursing note and vitals reviewed. Constitutional: She is oriented to person, place, and time. She appears well- developed and well-nourished. No distress. HENT: Head: Normocephalic and atraumatic. Eyes: Pupils are equal, round, and reactive to light. Cardiovascular: Normal rate, regular rhythm and normal heart sounds. Pulmonary/Chest: Effort normal and breath sounds normal. No respiratory distress. She has no wheezes. She has no rales. Neurological: She is alert and oriented to person, place, and time. Skin: Skin is warm and dry. There is erythema. There is a an approximately 10 cm by 8 cm area of erythema, swelling and tenderness with central induration and eschar over the right buttock. Minimal central fluctuance. There is a smaller area of erythema, swelling, tenderness over the left buttock, also with central fluctuance. Psychiatric: She has a normal mood and affect. Her behavior is normal. Consult orders: None PCP: MD MEJIA PCP No results found for this visit on 05/05/10. Radiology orders: None Incision and Drainage Performed by: MOSHE LEIVA Authorized by: MOSHE LEIVA Consent: Verbal consent obtained. Consent given by: patient Patient identity confirmed: verbally with patient Time out: Immediately prior to procedure a time out was called to verify the correct patient, procedure, equipment, sales support rep and site/side marked as required. Type: abscess Location: buttocks. Anesthesia: local infiltration Local anesthetic: lidocaine 1% with epinephrine Scalpel size: 11 Incision type: single straight Complexity: simple Drainage: purulent Drainage amount: moderate Wound treatment: wound left open Packing material: 1/4 in gauze Patient tolerance: Patient tolerated the procedure well with no immediate complications. Comments: The larger area on the right buttock was open with a 1.5 cm incision, moderate pus, packedwith gauze. The smaller area over the left buttock 7mm incision with scant pus, no packing. Course: Pt remained stable throughout clinic stay. Pt treated with ativan and vicodin prior to procedure. 1. Abscess (682.9J) 2. Cellulitis (682.9N) Plan: local wound care, return in 2 days for packing removal and wound check. Will change abx to clindamycin as pt reports worseninging with expanding erythema on bactrim. Culture pending. rx for percocet for pain. Dr. Wilber Angulo was available for consultation during my care of this patient. MDM 05/05/2010 22:17 documented in this encounter Miscellaneous Notes Scanned Note-Null - Inpatient, PhysicianMD - 05/05/2010 0000 EDT documented in this encounter Plan of Treatment Not on filedocumented as of this encounter Procedures Procedure Name Priority Date/Time Associated Diagnosis Comme nts BACTERIAL STAT 05/05/2010 22:00 Results for this CULTURE/SMEAR EDT procedure are in the results section. documented in this encounter Results BACTERIAL CULTURE/SMEAR, OTHER (05/05/2010 22:00 EDT) Specimen Wound Drainage [facility] Description Specimen submitted on LAB a swab Gram Smear Result Many Polys [facility] Mod Gram positive cocci LAB Result Mod METHICILLIN [facility] RESISTANT LAB STAPHYLOCOCCUS COAGULASE POSITIVE Report Status Final [facility] 05/07/2010 LAB Specimen Other (qualifier value) Organism Antibiotic Method Susceptibility Mod methicillin Susceptibility SUSCEPTIBILITY (EFRA) resistant comment Resistant to all staphylococcus penicillins coagulase positive (including nafcillin), combinations of penicillins and beta lactamase inhibi tors (eg amoxicillin clavulanic acid, ampicillin sulba ctam, piperacillin tazobactam), all cephalosporins, and all carbapenems (eg meropenem and imipenem). (mecA gene product present) Resistant Mod methicillin Oxacillin SUSCEPTIBILITY (EFRA) >=4 resistant Resistant staphylococcus Resistant coagulase positive Mod methicillin Cefazolin SUSCEPTIBILITY (EFRA) Resistant resistant staphylococcus coagulase positive Mod methicillin Vancomycin SUSCEPTIBILITY (EFRA) 1 resistant Susceptible staphylococcus Susceptible coagulase positive Mod methicillin Erythromycin SUSCEPTIBILITY (EFRA) >=8 resistant Resistant staphylococcus Resistant coagulase positive Mod methicillin Clindamycin SUSCEPTIBILITY (FERA) <=0.25 resistant Susceptible staphylococcus Susceptible coagulase positive Mod methicillin Ciprofloxacin SUSCEPTIBILITY (EFRA) <=0.5 resistant Susceptible staphylococcus Susceptible coagulase positive Mod methicillin Tetracycline SUSCEPTIBILITY (EFRA) <=1 resistant Susceptible staphylococcus Susceptible coagulase positive Mod methicillin Trimethoprim-Sulfamet SUSCEPTIBILITY (EFRA) <=10 resistant hoxazole Susceptible staphylococcus Susceptible coagulase positive Performing Organization Address City/State/ZIP Code Phon e Number [facility] [address] [place] [address] SERVICES [facility] [address] [place] [address] documented in this encounter Visit Diagnoses Diagnosis Abscess Cellulitis and abscess of unspecified si te Cellulitis Cellulitis and abscess of unspecified si te documented in this encounter Administered Medications Inactive Administered Medications - up to 3 most recent administrations Medication Order MAR Action Action Date Dose Rate Site clindamycin (CLEOCIN) capsule 300 mg Given 05/05/2010 22:12 EDT 300 mg 300 mg, oral, NOW X1, 1 dose, On Jada 05/05/10 at 2230, STAT hydrocodone-acetaminophen (LORTAB;VICODIN) Given 05/05/2010 20:5 9 EDT 1 Tablet 5-500 mg per tablet 1 Tab 1 Tablet, oral, NOW X1, 1 dose, On Jada 05/05/10 at 2115, Routine lorazepam (ATIVAN) tablet 1 mg Given 05/05/2010 20:59 EDT 1 mg 1 mg, sublingual, NOW X1, 1 dose, On Jada 05/05/10 at 2115, Routine documented in this encounter Active and Recently Administered Medications Times are shown in EDT. Scheduled Medication Order 05/03/2010 05/04/2010 05/05/2010 clindamycin (CLEOCIN) capsule 300 mg (COMPLETED) 2211 (Given - Provider: Emily Winston RN) 300 mg, Oral, NOW X1, 1 dose, Jada 05/05/10 at 2230 hydrocodone-acetaminophen (LORTAB;VICODI N) 5-500 mg per tablet 1 Tab (COMPLETED) 2058 (Given - Provid er: Emily Winston RN) 1 Tab, Oral, NOW X1, 1 dose, Jada 05/05/10 at 2115 lorazepam (ATIVAN) tablet 1 mg (COMPLETED) 2058 (Given - Provider: Emily Winston RN) 1 mg, Sublingual, NOW X1, 1 dose, Jada 05/05/10 at 2115 documented in this encounter Care Teams Residential Finish Carpenter Relationship Specialty Start Date End Date None, Provider PCP - General 05/03/10 07/05/10 documented as of this encounter
--- OUTSIDE RECORDS SUMMARY | 2021-10-20 08:06 | XMS_ITS | Encounter Summary ---
:1985 Author Organization [facility] Address [address] [place] [address] Care Team Providers Name Role Phone None, Provider Primary Care Provider Unavailable Reason for Visit Reason Comments Cyst Right buttocks -4 days ago a ppeared as pimple- tried to pop. Not improving -very painful and red. Left buttocks started today with small pimple- also painful. Was recently living with a friend who was recently hospitalized c skin MRSA infection. Shared everything so patient anxious over this.Patient also has hx Hodgkin's Lympho ma in 2002. Encounter Details Date Type Department Care Team Description 05/03/2010 Hospital Encounter [facility] Ronda Angulo Abscess of buttock Urgent Care - Lizzy Mohamud PA-C [address] [phone] [place] [address] Social History Tobacco Use Types Packs/Day Years Used Date Current Every Day Smoker 0.25 12 Smokeless Tobacco: Never Used Alcohol Use Standard Drinks/Week Comments No 0 (1 standard drink = 0.6 oz pure alcoho l) Sex Assigned at Date Recorded Not on file documented as of this encounter Last Filed Vital Signs Vital Sign Reading Time Taken Comments Blood Pressure 117/71 05/03/2010 1805 EDT Pulse 78 05/03/2010 1805 EDT Temperature 37.1 ??C (98.8 ??F) 05/03/2010 1805 EDT Respiratory Rate 20 05/03/2010 1805 EDT Oxygen Saturation - - Inhaled Oxygen Concentration - - Weight - - Height - - Body Mass Index - - documented in this encounter Discharge Instructions Emma Spencer PA - 05/03/2010 Frequent warm compresses, antibiotics return for wound recheck for incision and drainage is needed. AttachmentsThe following attachments cannot be sent through Care Everywhere.SKIN ABSCESS: AFTER YOUR VISIT (TURKMEN)documented in this encounter Medications at Time of Discharge Medication Sig Dispensed Refills Start Date End Date LEVOTHYROXINE SODIUM Take 75 mcg by 0 (LEVOTHYROXINE ORAL) mouth. Not sure of dose sulfamethoxazole-trimethopr Take 1 Tab by 14 Tab 0 05/0305/10/2010 im (BACTRIM/C0-TRIMOXAZOLE mouth every 12 DS) 800-160 mg per tablet hours for 7 days. documented as of this encounter Ordered Prescriptions Prescription Sig Dispensed Refills Start Date End Date sulfamethoxazole-trimethop Take 1 Tab by mouth 14 Tab 0 05/03/2010 05/10/2010 rim every 12 hours for (BACTRIM/C0-TRIMOXAZOLE 7 days. DS) 800-160 mg per tablet documented in this encounter Discharge Disposition Disposition Code Departure Means Destination Home or Self Care documented in this encounter ED Notes Emma Angulo PA - 05/03/2010 1841 EDT Images from the original note were not included. DOS: 05/03/2010 Chief Complaint Patient presents with ??? Cyst Right buttocks -4 days ago appeared as pimple- tried to pop. Not improving - very painful and red. Left buttocks started today with small pimple- also painful. Was recently living with a friend who wasrecently hospitalized c skin MRSA infection. Shared everything so patient anxious over this.Patient also has hx Hodgkin's Lymphoma in 2002. The patient is a 24 y.o. female who presents today with Cyst The history is provided by the patient. Cyst This is a new problem. Episode onset: 4 days ago. The onset was gradual. The problem occurs continuously. The problem has been gradually worsening. The abscess is present on the left buttock and right buttock. The problem is moderate. The abscess is characterized by redness. Associated With: known MRSA contact. The abscess first occurred at home. Pertinent negatives include no fever and no cough. Review of Systems Constitutional: Negative for fever, activity change (patient unable to sit comfortably on buttock), appetite change and fatigue. HENT: Negative. Eyes: Negative. Respiratory: Negative. Negative for cough. Cardiovascular: Negative. Gastrointestinal: Negative. Negative for nausea. Musculoskeletal: Negative. Skin: Positive for wound. Negative for rash. All other systems reviewed and are negative. No current facility-administered medications on file. Current outpatient prescriptions Medication Sig Dispense Refill ??? LEVOTHYROXINE SODIUM (LEVOTHYROXINE ORAL) Take by mouth. Not sure of dose No Known Allergies Past Medical History Diagnosis Date ??? Thyroid disease ??? Cancer 2003 Hodgkins Lymphoma History Substance Use Topics ??? Smoking status: Current Everyday Smoker -- 0.2 packs/day for 12 years ??? Smokeless tobacco: Never Used ??? Alcohol Use: No History reviewed. No pertinent family history. BP 117/71 Pulse 78 Temp(Src) 98.8 ??F (37.1 ??C) (Temporal) Resp 20 Physical Exam Nursing note and vitals reviewed. Constitutional: She is oriented to person, place, and time. She appears well- developed and well-nourished. No distress. HENT: Head: Normocephalic. Eyes: Extraocular motions are normal. Pupils are equal, round, and reactive to light. Neck: Normal range of motion. Pulmonary/Chest: Effort normal. No respiratory distress. Musculoskeletal: Legs: Neurological: She is alert and oriented to person, place, and time. Skin: Skin is warm and dry. She is not diaphoretic. Consult orders: None PCP: MD MEJIA PCP No results found for this visit on 05/03/10. Radiology orders: None Procedures Course: Discussed with patient unable to I&D at this point with induration and fluctuance will place patient on Bactrim for presumed MRSA have her do frequent warm compresses and follow up as wound becomesmore fluctuant. Negative test. 1. Abscess of buttock (682.5A) Dr. Edd Raygoza was available for consultation during my care of this patient. MDM 05/03/2010 18:41 documented in this encounter Miscellaneous Notes Scanned Note-Null - Inpatient, MD Don - 05/03/2010 0000 EDT documented in this encounter Plan of Treatment Not on filedocumented as of this encounter Procedures Procedure Name Priority Date/Time Associated Diagnosis Comme nts TEST, STAT 05/03/2010 18:44 Abscess of buttock Re sults for this URINE EDT procedure are i n the results section. documented in this encounter Results TEST, URINE (05/03/2010 18:44 EDT) Result- Neg [facility] Test, Ur Performed at [facility], [place], [place] Specimen Urine (substance) Performing Organization Address City/State/ZIP Code Phon e Number [facility] [address] [place] [address] SERVICES [facility] [address] [place] [address] documented in this encounter Visit Diagnoses Diagnosis Abscess of buttock Cellulitis and abscess of buttock documented in this encounter Historical Medications This list may reflect changes made after this encounter. Medication Sig Dispensed Refills Start Date End Date LEVOTHYROXINE SODIUM Take 75 mcg by 0 (LEVOTHYROXINE ORAL) mouth. Not sure of dose added in this encounter Care Teams Claim Examiner Relationship Specialty Start Date End Date None, Provider PCP - General 05/03/10 07/05/10 documented as of this encounter
--- OUTSIDE RECORDS SUMMARY | 2021-10-20 08:06 | XMS_ITS | Encounter Summary ---
:1985 Author Organization [facility] Address [address] [place] [address] Care Team Providers Name Role Phone Unknown, Provider Primary Care Provider Encounter Details Date Type Department Care Team Description 10/15/2006 Results Only [facility] - Irasema Joshi, Cassidy del angel, conversion MEN'S LOCKER ROOM ATTENDANT [address] [place] [address] [place] [address] [phone] (Wo rk) Social History Tobacco Use Types Packs/Day Years Used Date Never Assessed Sex Assigned at Date Recorded Not on file documented as of this encounter Plan of Treatment Not on filedocumented as of this encounter Procedures Procedure Name Priority Date/Time Associated Diagnosis Comme nts CYTOPATHOLOGY Routine 10/15/2006 0:00 EDT Results for this procedure are i n the results section . documented in this encounter Results CYTOPATHOLOGY (10/15/2006 0:00 EDT) Pathology Report: CYTOPATHOLOGY REPORT [facility] Reports generated via electronic interface contain dominik ginal data; however they are lacking the format of the original re port. Caution should be taken when reading/interpreting unfo rmatted reports. Name: ? SHIRLENE PARKS ? Accession #: ? [id number] : ? 1985 (Age: 21) ??F ?Collect Date: ? 10/06 Location: ? [facility] ? Receive Date : ? 10/17/2006 Provider: ?MOSHE JOSHI MEN'S LOCKER ROOM ATTENDANT Copy to: ? Specimen/Source: ? ThinPrep Pap Test, Cervix/Endocervix, processed on [employer] ThinPrep Imaging System, with manual evaluation Last Menstrual Period: ? 09/29/06 Menstrual/ Status: ? Post Hormonal/Contraceptive Status: ? Oral contraceptives Previous Gynecologic Pathology: ? ANDREA I: Hx Other: ? HPVA - HPV testing requested if ASC-US on the current ThinPrep Pap test. ? SPECIMEN ADEQUACY ? Satisfactory for Evaluation - transformation zone component present GENERAL CATEGORIZATION ? Epithelial Cell Abnormality INTERPRETATION ? Squamous Cell Abnormality - Low grade squamous intraepithelial lesion (LSIL). Shift in vadim present suggestive of bacterial vaginos is. EDUCATIONAL NOTES/RECOMMENDATIONS ? [facility] recommends miguel wing the 2001 Consensus Guidelines for the Management of Women with Cervical Cytological Abnormalities (LYNNE Johnson,2002;287:2120-9). Management algorithms have b een distributed by [facility] and are available online at www.ASCCP.org. ? Document reviewed and electronically signed by: ? LISETTE SANCHEZ MD ? Report Date: ??10/23/2006 11:36 End of Report Specimen Performing Organization Address City/State/ZIP Code Phon e Number [facility] [address] [place] [address] SERVICES [facility] [address] [place] [address] documented in this encounter Visit Diagnoses Not on filedocumented in this encounter Care Teams Athletic Equipment Custodian Relationship Specialty Start Date End Date Unknown, Provider, PCP - General 07/21/09 05/02/10 documented as of this encounter
--- OUTSIDE RECORDS SUMMARY | 2021-10-20 08:06 | XMS_ITS | Encounter Summary ---
:1985 Author Organization [facility] Address [address] [place] [address] Care Team Providers Name Role Phone Talya Machado MD Primary Care Provider [phone] Encounter Details Date Type Department Care Team Description 06/15/2020 Lab Requisition [facility] Napoleon Victor Encounter for screening for malignant neoplasm of colon; Pathology & MD Nino Disease of pancreas, unspecified; Laboratory Medicine [address] [place] [address] Chronic viral hepatitis C (HCC-CMS) - [facility] [address] [place] [id number] Social History Tobacco Use Types Packs/Day Years [...] Date/Time Associated Diagnosis Comme nts SURGICAL PATHOLOGY Today 06/14/2020 14:55 Encounter for Resu lts for this EDT screening for procedure are in malignant neoplasm the resul ts of colon section. Disease of pancreas, unspecified Chronic viral hepatitis C (HCC-CMS) documented in this encounter Results SURGICAL PATHOLOGY (06/14/2020 14:55 EDT) Final Diagnosis A. COLON, SIGMOID, POLYPS, BIOPSY: [facility] - Tubular adenomas. CENTER LABORATORY B. RECTUM, POLYP, BIOPSY: SERVICES - Tubular adenoma. Attestation By the signature [facility] Electronica lly below, the attending CENTER signed by Josselyn Escalante, physician certifies LABORATORY Sydnee Clark MD on that they have 1) SERVICES 06/16/2020 at 1108 personally conducted a gross and/or microscopic examination of the described specimen(s), and/or personally interpreted the results of laboratory testing of the described specimen(s), and 2) personally rendered or confirmed the above diagnosis. Clinical History Chronic hepatitis C, [facility] adenomatous CENTER polyps, IBS with LABORATORY constipation, chronic SERVICES alcoholic pancreatitis; clinical diagnosis code: K86.9, Z12.11, B18.2 Gross Description A. [facility] Received in formalin fany d with proper patient identification (initials M, D) and A. (2) sigmoid polyps hot snare are 4 brown-neves polypoid tissue fragments (0.4 x 0.3 x 0.2 cm to 0.6 x 0.5 x 0.4 c CENTER ). The smaller 2 tissues ar e submitted intact in A1 and the larger 2 tissues are bisected and submitted separately in A2 and A3. LABORATO RY SERVICES B. Received in formalin fany d with proper patient identification (initials M, D) and B. Rectal polyp cold snare is a neves tissue (0.3 x 0.2 x 0.2 cm). The tissue is submitted intact in B1. PINKY WHELAN(ASCP) 06/15/2020 16:05 Performing Lab [facility] SERVICES Scanned Images [facility] SERVICES Specimen Tissue - Specimen from rectum (specimen) Tissue specimen (specimen) - Specimen fr om rectum (specimen) Performing Organization Address City/State/ZIP Code Phon e Number [facility] [address] [place] [address] SERVICES documented in this encounter Visit Diagnoses Diagnosis Encounter for screening for malignant ne oplasm of colon Special screening for malignant neoplasm s, colon Disease of pancreas, unspecified Chronic viral hepatitis C (HCC-CMS) (HCC ) Chronic hepatitis C without mention of h epatic coma documented in this encounter Additional Health Concerns Infection Onset Date Last Indicated Resolved Time MRSA 05/06/2010 05/06/2010 documented as of this encounter Care Teams Superintendent Transportation Relationship Specialty Start Date End Date Talya Machado MD PCP - General 02/05/[address] [place] [phone] documented as of this encounter
--- OUTSIDE RECORDS SUMMARY | 2021-10-20 08:06 | XMS_ITS | Encounter Summary ---
:1985 Author Organization [facility] Address [address] [place] [address] Care Team Providers Name Role Phone Jasmin Baez MD Primary Care Provider Unavailable Reason for Visit Reason Comments Abdominal Pain Wakened at midnight with LUQ pain, localized, progressively worse since then. No nausea, vomit ing. Encounter Details Date Type Department Care Team Description 09/26/2010 [facility] Gentry Goodrich MD [address] [place] [address] Abdominal pain Emergency Department - Emergency, MD Ravinder Main [address] [id number] Social History Tobacco Use Types Packs/Day Years [...] Reading Time Taken Comments Blood Pressure 110/65 09/26/2010 1255 EDT Pulse 83 09/26/2010 1255 EDT Temperature 36.7 ??C (98.1 ??F) 09/26/2010 0929 EDT Respiratory Rate 16 09/26/2010 0929 EDT Oxygen Saturation 100% 09/26/2010 1255 EDT Inhaled Oxygen Concentration - - Weight 63.5 kg (140 lb) 09/26/2010928 EDT Height 175.3 cm (5' 9) 09/26/2010928 EDT Body Mass Index 20.67 09/26/2010928 EDT documented in this encounter Discharge Instructions InstructionsGentry Goodrich MD - 09/26/2010 Your tests including the CT scan of the chest were normal This pain may be due to pleurisy, which is an irritation of the lining of your lung Use advil, 3 pills 3 times daily for base pain control and the percocet if not helping Return if worsening, see your doctor in one week for recheck AttachmentsThe following attachments cannot be sent through Care Everywhere. ABDOMINAL PAIN: AFTER YOUR VISIT TO THE EMERGENCY ROOM ([place])documented in this encounter Medications at Time of Discharge Medication Sig Dispensed Refills Start Date End Date LEVOTHYROXINE SODIUM Take 75 mcg by 0 (LEVOTHYROXINE ORAL) mouth. Not sure of dose ibuprofen (MOTRIN) 600 mg Take 1 Tab by mouth 21 Tab 0 0 08/07/2010 02/05/2011 tablet 3 times daily. oxycodone-acetaminophen Take 1-2 Tabs by 25 Tab 0 201002/05/2011 (PERCOCET) 5-325 mg per mouth every 4 hours tablet as needed for Pain. documented as of this encounter Ordered Prescriptions Prescription Sig Dispensed Refills Start Date End Date oxycodone-acetaminophen Take 1-2 Tabs by 25 Tab 0 201002/05/2011 (PERCOCET) 5-325 mg per mouth every 4 hours tablet as needed for Pain. documented in this encounter Discharge Disposition Disposition Code Departure Means Destination Home or Self Care Walk-out Home documented in this encounter ED Notes Gentry Goodrich MD - 09/26/2010 0944 EDT DOS: 09/26/2010 Chief Complaint Patient presents with ??? Abdominal Pain Wakened at midnight with LUQ pain, localized, progressively worse since then. No nausea, vomiting. The patient is a 25 y.o. female who presents today with Abdominal Pain The history is provided by the patient. Abdominal Pain Chronicity: Onset LUQ abd pain last PM, constant rad to left flank now 8/10. Worse with mvmt and breath. No trauma and not Sob, no priors. No cough, fever, NV. Chronic constipation. Progression since onset: Took nothing for this. Periods normal and 3 wks ago. No urinary sx or vag disch. Hx Hodgkins 9 yrs ago, no recurrence and last checked 6 months ago. Thyroid and anxiety. No surgery. The quality ofthe pain is sharp. Associated symptoms include constipation. Pertinent negatives include fever, diarrhea, nausea, vomiting, dysuria, hematuria and headaches. Review of Systems Constitutional: Negative for fever and chills. HENT: Negative for congestion, rhinorrhea and neck stiffness. Eyes: Negative for visual disturbance. Respiratory: Negative for cough and shortness of breath. Cardiovascular: Negative for chest pain. Gastrointestinal: Positive for abdominal pain and constipation. Negative for nausea, vomiting, diarrhea and abdominal distention. Genitourinary: Positive for flank pain. Negative for dysuria, hematuria, decreased urine volume, vaginal bleeding, vaginal discharge and difficulty urinating. Musculoskeletal: Negative for back pain. Skin: Negative for rash. Neurological: Negative for dizziness, syncope, weakness, numbness and headaches. Psychiatric/Behavioral: Negative for confusion. All other systems reviewed and are negative. Past Medical History Diagnosis Date ??? Thyroid disease ??? Cancer 2003 Hodgkins Lymphoma ??? Psychiatric problem anxiety Past Surgical History Procedure Date ??? Skin biopsy neck Not on File History Substance Use Topics ??? Smoking status: Current Everyday Smoker -- 0.2 packs/day for 12 years ??? Smokeless tobacco: Never Used ??? Alcohol Use: Yes rarely History reviewed. No pertinent family history. Vital Signs Temp: 36.7 ??C (98.1 ??F) Temp src: Tympanic Pulse: 83 Resp: 16 SpO2: 100 % BP: 110/65 mmHg O2 Device: None (Room air) Physical Exam Nursing note and vitals reviewed. Constitutional: She is oriented to person, place, and time. She appears well- developed and well-nourished. No palpable nodes, neck, axilla, groin HENT: Head: Normocephalic and atraumatic. Right Ear: [...] Pulmonary/Chest: Breath sounds normal. No respiratory distress. She exhibits no tenderness. Abdominal: Soft. Bowel sounds are normal. She exhibits no distension. Tenderness (mild LUQ and left flank tenderness) is present. No skin changes in area of pain Musculoskeletal: Normal range of motion. She exhibits no edema and no tenderness. Neurological: She is alert and oriented to person, place, and time. She has normal strength. No sensory deficit. Skin: Skin is warm and dry. No rash noted. Psychiatric: She has a normal mood and affect. Radiology orders: CT CHEST W CONTRAST CT ABDOMEN, PELVIS W CONTRAST CT ABDOMEN, PELVIS W CONTRAST Final result not shown here.: CT CHEST, ABDOMEN, AND PELVIS (Results Pending) CT CHEST W CONTRAST (Results Pending) Procedures ED Course: A medical screening exam was performed. Given pain meds in eD Labs Reviewed HEMAGRAM AND DIFFERENTIAL - Abnormal; Notable for the following: ??? Lymphocytes 11.0 (*) ??? Basophils 0.1 (*) ??? ABS Neutrophils 9.70 (*) ??? ABS Monocytes 1.19 (*) All other components within normal limits LIVER FUNCTION TESTS - Abnormal; Notable for the following: ??? Unconjugated Bilirubin 1.4 (*) All other components within normal limits POCT URINE DIPSTICK - Abnormal; Notable for the following: ??? Leuk Esterase 1+ (*) All other components within normal limits URINE MICROSCOPIC ONLY - Abnormal; Notable for the following: ??? Squam Epithel, UA Frequent (*) ??? Bacteria, UA Rare (*) All other components within normal limits POCT URINE TEST - Normal BUN CREATININE LIPASE GLUCOSE, SERUM ELECTROLYTES D-DIMER ED/WICC ADD-ON TSH CT chest, abd and pelvis with IV or oral contrast neg read by rads attd May be pleurisy as has big pleuritic component and abd tenderness mild followup closely withPMD TSH added as this is needed for her followup with [facility] next week and she then may not need to go down Since she has had a lot of testing today She will see PMD within one week and call [facility] to see if she still needs to go for her followup Disposition: Discharged The patient's pain was managed to an adequate level weighing risk vs. benefit of further medications. Upon departure from the Emergency Department, the patient's pain was 4 on a zero to ten scale. Condition at departure from the Emergency Department: Good Discharge Prescriptions New Prescriptions OXYCODONE-ACETAMINOPHEN (PERCOCET) 5-325 MG PER TABLET Take 1-2 Tabs by mouth every 4 hours as needed for Pain. MDM Number of Diagnoses or Management Options Abdominal pain: Diagnosis management comments: 4 1. Abdominal pain (789.00AP) PCP: JASMIN BAEZ MD (ANES) 09/26/2010 14:21 documented in this encounter Miscellaneous Notes Scanned Note-Null - Infection Preventionist, Scan - 09/26/2010 0000 EDT documented in this encounter Plan of Treatment Not on filedocumented as of this encounter Procedures Procedure Name Priority Date/Time Associated Comments Diagnosis ED/URGENT CARE ADD-ON STAT 09/26/2010 14:10 Re sults for this EDT procedure are i n the results section. CT ABDOMEN, PELVIS W 09/26/2010 12:37 Res ults for this CONTRAST EDT procedure are i n the results section. CT CHEST W CONTRAST 09/26/2010 12:37 Resu lts for this EDT procedure are i n the results section. URINE SEDIMENT STAT 09/26/2010 10:09 Results f or this (MICRO) WITHOUT EDT procedure ar e in REFLEX TO CULTURE the result s section. POCT TEST, STAT 09/26/2010 10:09 Res ults for this VISUAL READ EDT procedure are i n the results section. POCT URINE DIPSTICK, STAT 09/26/2010 10:00 Res ults for this CLINITEK EDT procedure are i n the results section. D-DIMER STAT 09/26/2010 9:59 Results for this EDT procedure are i n the results section. COMPLETE BLOOD COUNT STAT 09/26/2010 9:59 Resu lts for this AND DIFFERENTIAL EDT procedure a re in the results section. BUN STAT 09/26/2010 9:59 Results for this EDT procedure are i n the results section. TSH Routine 09/26/2010 9:59 Results for this EDT procedure are i n the results section. LIPASE STAT 09/26/2010 9:59 Results for this EDT procedure are i n the results section. GLUCOSE, SERUM STAT 09/26/2010 9:59 Results fo r this EDT procedure are i n the results section. CREATININE STAT 09/26/2010 9:59 Results for this EDT procedure are i n the results section. HEPATIC FUNCTION STAT 09/26/2010 9:59 Results for this PANEL (ALB,ALK EDT procedure are in PHOS,ALT,AST,DBIL,TOT the re sults FRANK,TOT PROT) section. ELECTROLYTES STAT 09/26/2010 9:59 Results for this EDT procedure are i n the results section. documented in this encounter Results ED/WICC ADD-ON (09/26/2010 14:10 EDT) Pathologist Sig nature Tests to be added TSH [facility] Number for problems [id number] (ED) [facility] Specimen Performing Organization Address City/State/ZIP Code Phon e Number [facility] [address] [place] [address] SERVICES [facility] [address] [place] [address] CT ABDOMEN, PELVIS W CONTRAST (09/26/2010 12:37 EDT) Anatomical Region Laterality Modality Other Specimen Narrative [facility] - 09/26/2010 12:[address] ABDOMEN, PELVIS ??Sep 26, 2010 12:37:00 PM Clinical history/Comments: LUQ pain, hx hodgkins, neg UPT, neg lipase, neg d Dimer Comparison: None Technique: Helical images were obtained from the do mes of the diaphragm to the iliac crests. Technique Pelvis: Immediately after the above preparation, axial images were obtained from the iliac crests to the ischial tub erosities. Oral contrast was given prior to scannin g. ??During the exam, intravenous administration of 100 cc of 370% nonionic contrast at a rate of 2 cc/second was administered. Findings: There is a tiny low-attenuatio n lesion in the liver, image 39, not apparent on delayed images, like ly small hemangioma or other benign finding. The gallbladder, pancrea s, adrenal glands and kidneys are normal. There is no hydronephrosis. The spleen is of normal size and shows n o perfusion abnormalities. The aorta is of normal caliber. A circum aortic left renal vein is noted. There is no retroperitoneal adeno sugar. The uterus and left ovary are unremarkable. There is a small amount of free fluid in the deep pelvis. There is a small right adne xal cyst, 2 cm. The anterior abdominal wall is intact. There is no fernando wel obstruction or wall thickening. The osseous structures are w ithout significant finding. For description of lung bases, see separ ate chest CT report. Impression: 1. Normal left upper quadrant and spleen . No adenopathy. 2. Small amount of free fluid, right adn exal cyst, may be physiologic changes, correlate for signs of cyst rup ture. Procedure Note 09/26/2010 CT ABDOMEN, PELVIS Sep 26, 2010 12:37:00 PM Clinical history/Comments: LUQ pain, hx hodgkins, neg UPT, neg lipase, neg d Dimer Comparison: None Technique: Helical images were obtained from the do mes of the diaphragm to the iliac crests. Technique Pelvis: Immediately after the above preparation, axial images were obtained from the iliac crests to the ischial tub erosities. Oral contrast was given prior to scannin g. During the exam, intravenous administration of 100 cc of 370% nonionic contrast at a rate of 2 cc/second was administered. Findings: There is a tiny low-attenuatio n lesion in the liver, image 39, not apparent on delayed images, like ly small hemangioma or other benign finding. The gallbladder, pancrea s, adrenal glands and kidneys are normal. There is no hydronephrosis. The spleen is of normal size and shows n o perfusion abnormalities. The aorta is of normal caliber. A circum aortic left renal vein is noted. There is no retroperitoneal adeno sugar. The uterus and left ovary are unremarkable. There is a small amount of free fluid in the deep pelvis. There is a small right adne xal cyst, 2 cm. The anterior abdominal wall is intact. There is no fernando wel obstruction or wall thickening. The osseous structures are w ithout significant finding. For description of lung bases, see separ ate chest CT report. Impression: 1. Normal left upper quadrant and spleen . No adenopathy. 2. Small amount of free fluid, right adn exal cyst, may be physiologic changes, correlate for signs of cyst rup ture. Performing Organization Address City/State/ZIP Code Phon e Number [facility] CT CHEST W CONTRAST (09/26/2010 12:37 EDT) Anatomical Region Laterality Modality Other Specimen Narrative [facility] - 09/26/2010 14:[address] CHEST W/CONTRAST ??Sep 26, 2010 12:37:00 PM Signs and Symptoms/Comments: ?? LUQ pain , hx hodgkins, neg UPT, neg lipase, neg d Dimer Comparison: None Technique: A single breath-hold helical CT acquisit ion was performed through the chest on a multidetector-row scanner wit h a reconstructed slice thickness of 3 mm and retrospectively re constructed 0.9 mm thick sections with 0.45 mm overlapping interv als. ??The scans were obtained from the lung apices through the bases d uring the intravenous administration of 90-100 cc of 370 mg% n onionic contrast injected at a rate of 2 cc/second. Scans were review ed on a dedicated PACS workstation for analysis. Findings: The bones and soft tissues are normal. There is no evidence of pleural or peric ardial disease. A small amount of normal-appearing residual thym us is present in antra mediastinum. No enlarged hilar or medias tinal nodes are present. The cardiac chambers and great vessels are n ormal size. Mild scarring is present in both apices. The lungs are otherwise clear. For a discussion of findings in the abdo men, please refer to the report of the dedicated abdominal CT fro m today. Impression: No evidence of recurrent lym phoma Procedure Note 09/26/2010 CT CHEST W/CONTRAST Sep 26, 2010 12:37:0 0 PM Signs and Symptoms/Comments: LUQ pain, h x hodgkins, neg UPT, neg lipase, neg d Dimer Comparison: None Technique: A single breath-hold helical CT acquisit ion was performed through the chest on a multidetector-row scanner wit h a reconstructed slice thickness of 3 mm and retrospectively re constructed 0.9 mm thick sections with 0.45 mm overlapping interv als. The scans were obtained from the lung apices through the bases d uring the intravenous administration of 90-100 cc of 370 mg% n onionic contrast injected at a rate of 2 cc/second. Scans were review ed on a dedicated PACS workstation for analysis. Findings: The bones and soft tissues are normal. There is no evidence of pleural or peric ardial disease. A small amount of normal-appearing residual thym us is present in antra mediastinum. No enlarged hilar or medias tinal nodes are present. The cardiac chambers and great vessels are n ormal size. Mild scarring is present in both apices. The lungs are otherwise clear. For a discussion of findings in the abdo men, please refer to the report of the dedicated abdominal CT fro m today. Impression: No evidence of recurrent lym phoma Performing Organization Address City/State/ZIP Code Phon e Number [facility] RADI[facility]Y (ABNORMAL) URINE MICROSCOPIC ONLY (09/26/2010 10:09 EDT) WBC, UA 1 to 5 0 - 5 /HPF [facility] RBC, UA None seen 0 - 5 /HPF [facility] Squam Epithel, UA Frequent (A) NS /HPF [facility] Renal Epithel, UA None seen NS /HPF [facility] Bacteria, UA Rare (A) NS /HPF [facility] Crystals, UA None seen /HPF [facility] Hyaline Casts, UA None seen /LPF [facility] UA Comment Microscopic results [facility] are unreliable on LAB urines unrefrig >2hrs or refrig >8hrs. Mucus, UA Present [facility] Specimen Urine (substance) Performing Organization Address City/[facility]/ZIP Code Phon e Number [facility] [address] [place] [phone] SERVICES [facility] [address] [phone] POCT URINE TEST (09/26/2010 10:09 EDT) Pathologist Sig nature Test, Negative Reference Range, POINT OF CARE Urine, POC Negative Control Line Present Yes POINT OF CARE Background Clear? Yes POINT OF CARE Specimen Urine (substance) Performing Organization Address City/State/ZIP Code Phon e Number [facility] POINT OF CARE POINT OF CARE (ABNORMAL) POCT URINE DIPSTICK (09/26/2010 10:00 EDT) Color YELLOW [facility] Clarity, UA Clear [facility] Glucose Neg NEG [facility] Bilirubin Neg NEG [facility] Ketones Neg NEG [facility] Specific [place] 1.020 1.001 - 1.035 [facility] Blood Neg NEG [facility] pH 6.0 4.6 - 8.0 [facility] Protein Neg NEG [facility] Urobilinogen 0.2 0.2 - 1.0 [facility] E.U./dl LAB Nitrite Neg NEG [facility] Leuk Esterase 1+ (A) NEG [facility] chefs ID [id number] [facility] Test Performed by Nursing Services LAB Specimen Urine (substance) Performing Organization Address [facility] Phon e Number [facility] [address] [place] [address] SERVICES [facility] [address] [place] [id number] TSH (09/26/2010 9:59 EDT) Pathologist Sig nature TSH 1.18 0.35 - 5.00 uIU/ml [facility] Specimen Performing Organization Address [facility] Phon e Number [facility] [address] [place] [address] SERVICES [facility] [address] [place] [address] D-DIMER (09/26/2010 9:59 EDT) Pathologist Sig nature D-Dimer <200Comment: CUTOFF <230 ng/mL [facility] VALUE FOR THE EXCLUSION OF DVT and PE: 230 ng/mL Specimen Blood specimen (specimen) Performing Organization Address [facility] Phon e Number [facility] [address] [place] [address] SERVICES [facility] [address] [place] [address] ELECTROLYTES (09/26/2010 9:59 EDT) Pathologist Sig nature Sodium 140 136 - 145 mEq/L [facility] Potassium 4.5 3.5 - 5.0 mEq/L [facility] Chloride 104 96 - 110 mEq/L [facility] CO2 27 24 - 32 mEq/L [facility] Specimen Blood specimen (specimen) Performing Organization Address [facility] Phon e [facility] [address] [place] [phone] SERVICES [facility] [address] [place] [address] GLUCOSE, SERUM (09/26/2010 9:59 EDT) Pathologist Sig [facility] Glucose, Serum 83 70 - 100 mg/dl [facility] Specimen Blood specimen (specimen) Performing Organization Address City/State/ZIP Code Phon e Number [facility] [address] [place] [address] SERVICES [facility] [address] [place] [address] (ABNORMAL) LIVER FUNCTION TESTS (09/26/2010 9:59 EDT) Pathologist Sig nature Albumin 4.1 3.4 - 4.9 g/dl [facility] Total Protein 7.0 6.5 - 8.3 g/dl [facility] Total Alkaline 64 38 - 126 U/L [facility] Phosphatase ALT 20 9 - 52 U/L [facility] AST 18 15 - 46 U/L [facility] Unconjugated Bilirubin 1.4 (H) 0.1 - 1.1 mg/dl [facility] Conjugated Bilirubin 0.0 0.0 - 0.3 mg/dl [facility] B Bilirubin, Total 1.3 0.2 - 1.3 mg/dl [facility] Specimen Blood specimen (specimen) Performing Organization Address City/[facility]/ZIP Code Phon e Number [facility] [address] [place] [address] SERVICES [facility] [address] [place] [address] LIPASE (09/26/2010 9:59 EDT) Pathologist Sig nature Lipase 65 0 - 250 U/L [facility] Specimen Blood specimen (specimen) Performing Organization Address City/State/ZIP Code Phon e Number [facility] [address] [place] [address] SERVICES [facility] [address] [place] [address] CREATININE (09/26/2010 9:59 EDT) Pathologist Sig nature Creatinine 0.70 0.7 - 1.5 mg/dl [facility] GFR, Calculated >60 ml/min/1.73m2 [facility] Specimen Blood specimen (specimen) Performing Organization Address City/State/ZIP Code Phon e Number [facility] [address] [place] [address] SERVICES [facility] [address] [place] [address] BUN (09/26/2010 9:59 EDT) Pathologist Sig nature BUN 19 10 - 26 mg/dl [facility] Specimen Blood specimen (specimen) Performing Organization Address City/[facility] Phon e Number [facility] [address] [place] [address] SERVICES [facility] [address] [place] [address] (ABNORMAL) HEMAGRAM AND DIFFERENTIAL (09/26/2010 9:59 EDT) Pathologist Sig nature WBC 12.34 4.0 - 12.4 K/cmm [facility] RBC 4.40 3.86 - 5.04 M/cmm [facility] Hemoglobin 14.1 11.6 - 15.2 gm/dl [facility] HCT 41.7 34.9 - 44.4 % [facility] MCV 95 81 - 98 fl [facility] MCH 32.1 26.7 - 33.3 pg [facility] MCHC 33.8 32.1 - 35.9 gm/dl [facility] PLT 220 141 - 320 K/cmm [facility] RDW-CV 13.7 11.7 - 14.6 % [facility] Neutrophils 78.7 45.5 - 79.7 % [facility] Lymphocytes 11.0 (L) 15.0 - 46.8 % [facility] Monocytes 9.6 1.8 - 12.0 % [facility] Eosinophils 0.6 0.6 - 6.9 % [facility] Basophils 0.1 (L) 0.2 - 1.4 % [facility] ABS Neutrophils 9.70 (H) 2.20 - 8.85 K/cmm [facility] ABS Lymphs 1.36 1.09 - 3.30 K/cmm [facility] ABS Monocytes 1.19 (H) 0.1 - 0.8 K/cmm [facility] ABS Eosinophils 0.07 0.03 - 0.61 K/cmm [facility] ABS Basophils 0.02 0.01 - 0.11 K/cmm [facility] Type of Diff: Automated [facility] Specimen Blood specimen (specimen) Performing Organization Address City/[facility]/ZIP [facility] Phon e Number [facility] [address] [place] [address] SERVICES [facility] [address] [place] [address] documented in this encounter Visit Diagnoses Diagnosis Abdominal pain Abdominal pain, unspecified site documented in this encounter Administered Medications Inactive Administered Medications - up to 3 most recent administrations Medication Order MAR Action Action Date Dose Rate Site diatrizoate meglumine-sodium in Given 09/26/2010 10:39 EDT 1,000 mL sterile water (bottle) (GASTROGRAFIN) oral solution 1,000 mL, oral, NOW X1, 1 dose, On Sun09/26/10 at 1100, STAT HYDROmorphone (PF) (DILAUDID) 1 mg/mL injection Given 09/26/2010 10:06 EDT 0.5 mg 0.5 mg 0.5 mg, intravenous, NOW X1, 1 dose, On Sun09/26/10 at 1000, STAT HYDROmorphone (PF) (DILAUDID) 1 mg/mL injection 1 Given 09/26/2010 11:45 EDT 1 mg mg 1 mg, intravenous, NOW X1, 1 dose, On Sun09/26/10 at 1145, STAT documented in this encounter Active and Recently Administered Medications Times are shown in EDT. Scheduled Medication Order 09/24/2010 09/25/2010 09/26/2010 diatrizoate meglumine-sodium in sterile water (bottle) (GASTROGRAFIN) oral solution (COMPLETED) 1039 (Given - Provi mario: Beth Reis) 1,000 mL, Oral, NOW X1, 1 dose, Sun09/26/10 at 1100 HYDROmorphone (PF) (DILAUDID) 1 mg/mL injection 0.5 mg (COMPLETE D) 1006 (Given - Provider: Beth Reis - Comment: via pump) 0.5 mg, Intravenous, NOW X1, 1 dose, Sun09/26/10 at 1000 HYDROmorphone (PF) (DILAUDID) 1 mg/mL injection 1 mg (COMPLETED) 1145 (Given - Provider: Ana Holcomb) 1 mg, Intravenous, NOW X1, 1 dose, Sun09/26/10 at 1145 documented in this encounter Orders Nursing Count Last Ordered Date First Ordered Date INSERT PERIPHERAL IV 1 09/26/2010 PULSE OXIMETRY 1 09/26/2010 documented in this encounter Additional Health Concerns Infection Onset Date Last Indicated Resolved Time 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
--- OUTSIDE RECORDS SUMMARY | 2021-10-20 08:06 | XMS_ITS | Encounter Summary ---
:1985 Author Organization [facility] Address [address] [place] [address] Care Team Providers Name Role Phone Jasmin Baez MD Primary Care Provider Unavailable Reason for Visit Reason Comments Wrist Injury Pt tripped and fell onto out stretched rt wrist early this am, pain rt wrist and palmar aspect rt h and. + pulse and sensation Encounter Details Date Type Department Care Team Description 08/07/2010 Emergency [facility] Emergency Diego De La Torre MD Wrist sprain Department - Main [facility] EmergencyRavinder MD [address] [place] [address] Social History Tobacco Use Types Packs/Day Years Used Date Current Every Day Smoker 0.25 12 Smokeless Tobacco: Never Used Alcohol Use Standard Drinks/Week Comments No 0 (1 standard drink = 0.6 oz pure alcoho l) Sex Assigned at Date Recorded Not on file documented as of this encounter Last Filed Vital Signs Vital Sign Reading Time Taken Comments Blood Pressure 110/72 08/07/2010 0938 EDT Pulse 74 08/07/2010 0938 EDT Temperature 35.9 ??C (96.6 ??F) 08/07/2010 0938 EDT Respiratory Rate 14 08/07/2010 0938 EDT Oxygen Saturation 99% 08/07/2010 0938 EDT Inhaled Oxygen Concentration - - Weight 62.1 kg (137 lb) 08/07/2010 0938 EDT Height 175.3 cm (5' 9) 08/07/2010 0938 EDT Body Mass Index 20.23 08/07/2010 0938 EDT documented in this encounter Discharge Instructions AttachmentsThe following attachments cannot be sent through Care Everywhere. WRIST SPRAIN: AFTER YOUR VISIT (ICELANDIC)documented in this encounter Medications at Time of [...] Dispensed Refills Start Date End Date ibuprofen (MOTRIN) 600 mg Take 1 Tab by mouth 21 Tab 0 0 08/07/2010 02/05/2011 tablet 3 times daily. documented in this encounter Discharge Disposition Disposition Code Departure Means Destination Home or Self Care Car Home documented in this encounter ED Notes Armando Aiken RN - 08/07/2010 1003 EDT Returned from XRAY Diego Weiner MD - 08/07/2010 0950 EDT DOS: 08/07/2010 Chief Complaint Patient presents with ??? Wrist Injury Pt tripped and fell onto outstretched rt wrist early this am, pain rt wrist and palmar aspect rt hand. + pulse and sensation The patient is a 25 y.o. female who presents today with Wrist Injury HPI Comments: 25-year-old white female patient [id number] was [place] campsite last evening and got up to go to the bathroom when tripped and fell onto her outstretched right wrist. There's been no prior injury. She now is discomfort on range of motion. The history is provided by the patient. Wrist Injury The current episode started yesterday. The problem occurs continuously. The problem has been gradually worsening. The problem is moderate. The symptoms are relieved by rest. The symptoms are aggravatedby movement. Pertinent negatives include no orthopnea, no fever, no decreased vision, no double vision, no eye itching, no photophobia, no abdominal pain, no constipation, no diarrhea, no nausea, no vomiting, no congestion, no ear discharge, no ear pain, no headaches, no hearing loss, no mouth sores, no rhinorrhea, no sore throat, no stridor, no swollen glands, no muscle aches, no neck pain, no neck stiffness, no cough, no URI, no wheezing, no rash, no eye discharge, no eye pain and no eye redness. She has been behaving normally. She has been eating and drinking normally. Urine output has been normal. There were no sick contacts. She has received no recent medical care. Review of Systems Constitutional: Negative. Negative for fever. HENT: Negative. Negative for hearing loss, ear pain, congestion, sore throat, rhinorrhea, mouth sores, neck pain and ear discharge. Eyes: Negative. Negative for double vision, photophobia, pain, discharge, redness and itching. Respiratory: Negative. Negative for cough, wheezing and stridor. Cardiovascular: Negative. Negative for orthopnea. Gastrointestinal: Negative. Negative for nausea, vomiting, abdominal pain, diarrhea and constipation. Genitourinary: Negative. Musculoskeletal: Negative. Skin: Negative. Negative for rash. Neurological: Negative. Negative for headaches. Hematological: Negative. Psychiatric/Behavioral: Negative. All other systems reviewed and are negative. [...] No History reviewed. No pertinent family history. 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 Constitutional: She is oriented to person, place, and time. She appears well- developed and well-nourished. HENT: Head: Normocephalic and atraumatic. Eyes: Conjunctivae and extraocular motions are normal. Pupils are equal, round, and reactive to light. Neck: Normal range of motion. Neck supple. Cardiovascular: Normal rate, regular rhythm, normal heart sounds and intact distal pulses. Pulmonary/Chest: Effort normal and breath sounds normal. Abdominal: Soft. Bowel sounds are normal. Musculoskeletal: Normal range of motion. Examination of the right wrist reveals no evidence of ecchymosis or swelling. There is mild tenderness on range of motion. There is no tenderness whatsoever in the elbow. There is good distal capillary refill, pulses and sensation. Neurological: She is alert and oriented to person, place, and time. Skin: Skin is warm and dry. Psychiatric: She has a normal mood and affect. Her behavior is normal. Thought content normal. Radiology orders: WRIST 3 OR MORE VIEWS WRIST 3 OR MORE VIEWS Final result not shown here.: 08/07/2010 10:15 multiple views of the right wrist reveal no evidence of fracture or acute finding. Independently viewed by me. Procedures ED Course: A medical screening exam was performed. History of physical were performed by me. There was excellent no swelling or ecchymosis of the wrist. Xrays Confirm no evident fracture or acute finding. Historyreceived an Ludwig wrap and analgesics. Disposition: Discharged The patient's pain was managed to an adequate level weighing risk vs. benefit of further medications. Upon departure from the Emergency Department, the patient's pain was 0 on a zero to ten scale. Condition at departure from the Emergency Department: Improved Discharge Prescriptions New Prescriptions IBUPROFEN (MOTRIN) 600 MG TABLET Take 1 Tab by mouth 3 times daily. MDM Number of Diagnoses or Management Options Wrist sprain: new, needed workup Diagnosis management comments: 4 Amount and/or Complexity of Data Reviewed Clinical lab tests: ordered and reviewed Tests in the radiology section of CPT??: ordered and reviewed Discussion of test results with the performing providers: yes Decide to obtain previous medical records or to obtain history from someone other than the patient: yes Review and summarize past medical records: yes Independent visualization of images, tracings, or specimens: yes Risk of Complications, Morbidity, and/or Mortality Presenting problems: high Diagnostic procedures: high Management options: moderate Patient Progress Patient progress: stable 1. 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 documented in this encounter Results WRIST 3 OR MORE VIEWS (08/07/2010 9:58 EDT) Anatomical Region Laterality Modality Other Specimen Narrative [facility] - 08/07/2010 10:12 EDT RIGHT WRIST 3 OR MORE VIEWS ON 08/07/2010 at 0951 hours Comparison: None History: Right wrist injury. Rule out fr acture. Findings: 4 views of the right wrist wer e obtained. The bones and soft tissues are within normal limits. N o fracture or other significant findings are identified. Procedure Note 08/07/2010 RIGHT WRIST 3 OR MORE VIEWS ON 1 at 0951 hours Comparison: None History: Right wrist injury. Rule out fr acture. Findings: 4 views of the right wrist wer e obtained. The bones and soft tissues are within normal limits. N o fracture or other significant findings are identified. Performing Organization Address City/State/ZIP Code Phon e Number [facility] documented in this encounter Visit Diagnoses Diagnosis Wrist sprain Sprain of wrist, unspecified site documented in this encounter Administered Medications Inactive Administered Medications - up to 3 most recent administrations Medication Order MAR Action Action Date Dose Rate Site ibuprofen (MOTRIN) tablet 600 mg Given 08/07/2010 10:23 EDT 600 mg 600 mg, oral, NOW X1, 1 dose, On 08/07/10 at 1045, STAT documented in this encounter Discontinued Medications Medication Sig Discontinue Reason Start Date End Date clindamycin (CLEOCIN) 150 Take 2 Caps by 07/06/2010 08/07/2010 mg capsule mouth 4 times daily. documented as of this encounter Active and Recently Administered Medications Times are shown in EDT. Scheduled Medication Order 08/05/2010 08/06/2010 08/07/2010 ibuprofen (MOTRIN) tablet 600 mg (COMPLETED) 1023 (Given - Provider: Armando Aiken RN) 600 mg, Oral, NOW X1, 1 dose, 08/07/10 at 1045 documented in this encounter Orders Medications Ordered That Might Not Have Count Last Ord ered Date First Ordered Date Been Administered ibuprofen (MOTRIN) tablet 600 mg 1 08/07/2010 documented in this encounter Additional Health Concerns Infection Onset Date Last Indicated Resolved Time MRSA 05/06/2010 05/06/2010 documented as of this encounter Care Teams Student Life Coordinator Relationship Specialty Start Date End Date Jasmin Baez MD PCP - General 07/06/10 02/04/[address] [place] [address], [place] [address] documented as of this encounter
--- OUTSIDE RECORDS SUMMARY | 2021-10-20 08:06 | XMS_ITS | Encounter Summary ---
:1985 Author Organization [facility] Address [address] [place] [address] Care Team Providers Name Role Phone Talya Machado MD Primary Care Provider [phone] Encounter Details Date Type Department Care Team Description 05/09/2012 Results Only [facility]- [facility] Karma Joseph MD [phone] [place] [address] Social History Tobacco Use Types Packs/Day Years [...] Associated Diagnosis Comme nts SURGICAL PATHOLOGY Routine 05/09/2012 8:37 EDT Re sults for this procedure are i n the results section. documented in this encounter Results SURGICAL PATHOLOGY (05/09/2012 8:37 EDT) Pathology SURGICAL PATHOLOGY REPORT ANA ROSA KAHN Report: LAB Reports generated via electronic interface contain dominik ginal data; however they are lacking the format of the original re port. Caution should be taken when reading/interpreting unfo rmatted reports. Name: ? SHIRLENE PARKS ? Accession #: ? [id number] ? : ? 1985 (Age: 26) ??F ?Collect Da te: ? 05/09/2012 ? Location: ? [facility] ? Receive Date: ? 013 ? Provider: KARMA JOSEPH MD Copy to: MARKELL HARPER ? Addendum ? Date Ordered: ? 05/21/2012 ? Status: Si gned Out ? Date Complete: ? 05/21/2012 ? By: Tina Basilio ? Date Reported: ? 05/21/2012 ? Addendum Diagnosis ? Skin of thigh, right outer, excisional biopsy: 1. ?MELANOCYTIC NEVUS, COMPOUND SPITZ TYP E. ??SEE COMMENT. ?- NEVUS DOES NOT EXTEND TO MARGINS O F EXCISION SPECIMEN. ?- NEVUS PRESE NT APPROXIMATELY 0.5 MM FROM CLOSEST PERIPHERAL MARGIN. Addendum Comment ? As noted in the origi nal report, the case was sent in consultation to Dr. Russell Steiner at [facility] D[facility]. 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 ??He further notes: ?? The lesion appears to have been removed with a margin of around a millimeter. The architecture is peculiar (with a junctional component exceeding the span of the dermal one). ??However, I do not see findings that would favor melanoma or establish a need for additio nal excision. ??The diagnosis is amended as above. (Dr. June)/[facility] Document reviewed and electronically signed by: ? LISSA JUNE MD ? Report date: 05/21/2012 By the signature above, the attending physician certif ies that he/she has personally conducted a gross and/or microscopic examin ation of the described specimens and rendered or confirmed the above diagnosi s. Final Report Final Pathologic Diagnosis: ? Skin of thigh, right outer, excisional biopsy: 1. ?Atypical compound melanocytic prolife ration. ??See comment. ? - Melanocytic proliferation does not extend to margins of excision specimen. ?- Melanocytic proliferation present approximately 0 .5 mm from closest peripheral margin. ?? Comment: ? The excisional biopsy consists of a compo und melanocytic proliferation composed of epithelioid lucia nocytes. ??The proliferation has features of a Spitz nevus including character of the intraepidermal nests, wedge-shaped configuration, and cytologic features of the destini anocytes. ??However, there is upward migration of individu al melanocytes, a feature raising the possibility of malignant melanoma. ??Given the atypical features, the case will be sent to Dr. Russell Steiner at [facility] Dermat opathology [facility] for consultation. ??An addendum will be issued upon receipt of the consu ltative report. ??Dr. Brianna Avina has reviewed this case. ??(Dr. June)/red ? Microscopic Description: ? Sections consist of an excision of skin to the deep reticular dermis. There is mild epidermal hyperplasia with slight hyperk eratosis. ??There is a melanocytic proliferation that has both intraepi dermal and dermal components. The intraepidermal component extends beyond the dermal component and consists of nests and individual cells. ??In most areas, nests predominate. ??The nests vary in size and shape. ??The nests are located between and on the sides of rete ridges, in addition to at the tips of rete ridges. ??M ost of the nests are discrete and sharply demarca nickolas from the adjacent epidermal keratinocytes. ??The individual melanocytes are unevenly spaced along the j unction, but developed confluent growth is not evident. ??Indiv idual melanocytes are identified above the basal zone in the mid and, focally, upper le vels of the stratum spinosum. The upward migration is evident througho ut the lesion, but primarily overlying nests. ??The proliferation e xtends into the epithelium of a central follicle to a small degree. ??The melanocy lauro are enlarged and most have a moderate amount of wispy and amphophilic cytoplasm. ??The nuclei have ves icular chromatin with discernible red nucleoli. ?? A few hyperchromatic forms are evident. ??Within the dermis, nests and cords of similar melanocytes are pre sent. ??The dermal melanocytes have a wedge-shaped configur ation within the sheath of the central follicle. ??No definitive mitotic figures are identifi ed within the dermal melanocyte component. ??Deeper sections show similar f eatures. Immunohistochemical staining was performed on this case to further characterize the lesion. ??Positive and negative controls stained a ppropriately. ??(Dr. June)/red Block ?Antibody (Clone) ? Result ? 1 ?[place]- 1 (Melan-A)(A103, [employer]) ?Highlights melanocytic proliferation, ?showing individual melanocytes in ?the lower, mid, and focally upper ?stratum spinosum ? NOTE: ??One or more of the reagents used in immunohistochemical testing in this case may not have been cleared or approved by the U.S. Food and Drug Administration (FDA). ??The FDA has determined that such clearance or approval is not necessary. ??These tests are used for clinical purposes. ??They should not be regarded as investigational or for research. ??These r eagents' performance characteristics have been determined by [facility]. ??This laboratory is certified unde r the Clinical Laboratory Improvement Amendments of 1988 (CLIA-88) as qualified to perform high complexity clinical laboratory testing. ? Gross Description: ? Received in formalin labelled Parks, Shirlene and abnormal nevus is an unoriented elliptical excision of neves-wh ite skin measuring 0.9 x 0.5 cm and is excised to a depth of 0.2 cm . ??There is a slightly eccentric 0.4 x 0.4 cm round enves macule. ??The margins are inked. ??The speci men is serially sectioned and entirely submitted as (1)-ce ntral sections and (2)-tips, reverse en face. ??(Toribio Hope)/mms ? Clinical History: ? Abnl nevus-growing ? Specimens Received: ? Abnl nevus R outer thigh ? Document reviewed and electronically signed by: ? LISSA JUNE MD ? Report ??Date: 05/15/2012 11:05 By the signature above, the attending physician certif ies that he/she has personally conducted a gross and/or microscopic examin ation of the described specimens and rendered or confirmed the above diagnosi s. End of Report Specimen Performing Organization Address City/State/ZIP Code Phon e Number [facility] [address] [place] [address] SERVICES [facility] [address] [place] [address] documented in this encounter Visit Diagnoses Not on filedocumented in this encounter Additional Health Concerns Infection Onset Date Last Indicated Resolved Time MRSA 05/06/2010 05/06/2010 documented as of this encounter Care Teams Director Funds Development Relationship Specialty Start Date End Date Talya Machado MD PCP - General 02/05/[address] [place] [address] [address] [place] [address] documented as of this encounter
--- OUTSIDE RECORDS SUMMARY | 2021-10-20 08:06 | XMS_ITS | Encounter Summary ---
:1985 Author Organization [facility] Address [address] [place] [address] Care Team Providers Name Role Phone Talya Machado MD Primary Care Provider [phone] Reason for Visit Reason Comments Abdominal Pain Returned home from the bars at 1200 after consuming apx 6 drinks. Took prescribed Risperadol at 010 0. Onset of sharp LUQ pain at 0130. Encounter Details Date Type Department Care Team Description 01/19/2012 Emergency [facility] Yareli Plata P A-C [address] [facility], Level [address] [place] [address] Abdominal pain, epigastric; Emergency Department Emergency, MD Ravinder Abdominal pain, left upper quadrant; - [facility] Chest pain [address], [place] [id number] Social History Tobacco Use Types Packs/Day Years [...] kg (116 lb) 01/19/2012 0240 EST Height - - Body Mass Index 17.64 02/05/2011 0826 EST documented in this encounter Discharge Instructions Yareli Easton PA - 01/19/2012 Please follow up with your doctor today Return for worsening symptoms like fever, vomiting blood, blood in your stools Continue with your medication as prescribed Take omeprazole daily 1 tab in am with water and then wait 1/2 hour before eating AttachmentsThe following attachments cannot be sent through Care Everywhere. ABDOMINAL PAIN: AFTER YOUR VISIT (SERBIAN)CHEST PAIN: AFTER YOUR VISIT (SERBIAN) documented in this encounter Medications at Time of Discharge Medication Sig Dispensed Refills Start Date End Date lansoprazole (PREVACID) 15 Take 15 mg by mouth 0 mg capsule daily. LEVOTHYROXINE SODIUM Take 75 mcg by 0 (LEVOTHYROXINE ORAL) mouth. Not sure of dose risperidone (RISPERDAL) 0.5 Take 1 mg by mouth 0 mg tablet daily. documented as of this encounter Discharge Disposition Disposition Code Departure Means Destination Home or Self Care Walk-out documented in this encounter Procedure Notes FIRE PILOT, MORENITA 2 - 02/05/2012 1006 ESTAssociated Order(s): ECG REPORT - SCANNED documented in this encounter ED Autumn Abbott RN - 01/19/2012 0530 EST A&OX3. VSS, pain 06/14. Pt advised not to drink, drive or operate heavy machinery while taking narcotics, pt verbalized understanding. Ambulating well with out use of assistive device. Pt accompanied by girlfriend, plan for pt to go home via car. Discharge instructions explained, all questions answered. Pt requests and rec's list of MDs accepting pts and work note. Autumn Gonzalez RN - 01/19/2012 0511 EST Pt ambulatory to BR, steady gait. Cooper Woods RN - 01/19/2012 0306 EST Blood drawn via saline lock per protocol, rainbow tube(s) sent to lab per order. Yareli Mims PA - 01/19/2012 0247 EST DOS: 01/19/2012 Chief Complaint Patient presents with ??? Abdominal Pain Returned home from the bars at 1200 after consuming apx 6 drinks. Took prescribed Risperadol at 0100. Onset of sharp LUQ pain at 0130. The patient is a 26 y.o. female who presents today with Abdominal Pain HPI Comments: 26-year-old female patient complaining of epigastric, left upper quadrant, and left-sided chest pain. Patient states she has had similar complaints over the past few months but have not lasted as long in duration. Patient states she had 3 mixed drinks tonight and 3 beers had returned home around midnight at around 1:00 this morning and noted pain to the epigastric, left upper quadrant, and left chest. Patient describes her pain as pressure. Patient with a history of non-Hodgkin's lymphoma diagnosed at 16 years old, patient completed radiation and chemotherapy. Patient is denying any nausea, vomiting, diarrhea, urinary complaints. Patient had taken her Risperdal at 1:00 this morning. Review of Systems Constitutional: Negative for fever and chills. HENT: Negative for sore throat and neck pain. Respiratory: Positive for shortness of breath. Cardiovascular: Positive for chest pain. Gastrointestinal: Positive for abdominal pain. Negative for nausea, vomiting and diarrhea. Genitourinary: Negative for dysuria. Musculoskeletal: Negative for back pain. Neurological: Negative for headaches. Psychiatric/Behavioral: The patient is nervous/anxious. All other systems reviewed and are negative. [...] tobacco: Never Used ??? Alcohol Use: Yes once a month No family history on file. Vital Signs Temp: 36 ??C (96.8 ??F) Temp src: Tympanic Pulse: 89 Heart Rate: 96 BPM Resp: 20 SpO2: 96 % BP: 101/61 mmHg BP Device: BP Machine Patient Position: Sitting BP Cuff Location: Left arm O2 Device: None (Room air) Physical Exam Nursing note and vitals reviewed. Constitutional: She is oriented to person, place, and time. She appears well- developed and well-nourished. HENT: Head: Normocephalic. Right Ear: External ear normal. Left Ear: External ear normal. Mouth/Throat: Oropharynx is clear and moist. Eyes: Conjunctivae and EOM are normal. Pupils are equal, round, and reactive to light. Neck: Normal range of motion. Neck supple. Cardiovascular: Normal rate, regular rhythm and normal heart sounds. No murmur heard. Pulmonary/Chest: Effort normal and breath sounds normal. No respiratory distress. Abdominal: Soft. Bowel sounds are normal. There is tenderness. There is guarding. There is no rebound. Tender to palpation epigastric, left upper quadrant, no rigidity, voluntary guarding Lymphadenopathy: She has no cervical adenopathy. Neurological: She is alert and oriented to person, place, and time. Skin: Skin is warm and dry. Psychiatric: Anxious Radiology orders: CHEST PA AND LATERAL Lab Results D-DIMER (Final result) Component (Lab Inquiry) Result Time D-Dimer 01/19/12 0423 <200 CUTOFF VALUE FOR THE EXCLUSION OF DVT and PE: 230 ng/mL D-dimer units ED/WICC ADD-ON (Final result) Component (Lab Inquiry) Result Time Tests to be added Number for problems 01/19/12 0411 D DIMER [id number] (ED) PROTIME (Final result) Component (Lab Inquiry) Result Time Pro Time I.N.R. 01/19/12 0342 10.9 1.0 Moderate Intensity Coumadin INR = 2.0-3.0 Adjustments in anticoagulant therapy dose should be basedupon the INR and NOT the Pro Time. CK MB WITH TOTAL CK (Final result) Component (Lab Inquiry) Result Time CK MB 01/19/12 0341 121 0.90 TROPONIN I (Final result) Component (Lab Inquiry) Result Time Troponin I 01/19/12340 <0.034 SED. RATE:WESTERGREN (Final result) Component (Lab Inquiry) Result Time Sed. Rate Westergren 01/19/12 0339 1 ELECTROLYTES (Final result) Component (Lab Inquiry) Result Time Sodium Potassium Chloride CO2 01/19/12 032 142 4.1 106 26 BUN (Final result) Component (Lab Inquiry) Result Time BUN 01/19/12328 13 CREATININE (Final result) Component (Lab Inquiry) Result Time Creatinine GFR, Calculated 01/19/12328 0.67 >60 LIVER FUNCTION TESTS (Final result) Abnormal Component (Lab Inquiry) Result Time Albumin Total Protein Total Alkaline Phosphatase ALT AST 01/19/12328 4.2 7.2 85 65 (H) 48 (H) Result Time Unconjugated Bilirubin Conjugated Bilirubin Bilirubin, Total 01/19/12328 0.1 0.0 0.5 LIPASE (Final result) Component (Lab Inquiry) Result Time LIPASE 01/19/12328 130 HEMAGRAM (Final result) Component (Lab Inquiry) Result Time WBC RBC Hemoglobin HCT MCV 01/19/12312 8.01 4.37 14.3 41.7 96 Result Time MCH MCHC PLT RDW-CV 01/19/12312 32.7 34.2 252 13.5 DIFFERENTIAL (Final result) Abnormal Component (Lab Inquiry) Result Time Neutrophils Lymphocytes Monocytes Eosinophils Basophils 01/19/12312 50.5 38.1 7.6 1.9 1.9 (H) Result Time ABS Neutrophils ABS Lymphs ABS Monocytes ABS Eosinophils ABS Basophils 01/19/12312 4.05 3.05 0.61 0.15 0.16 (H) Result Time Type of Diff: 01/19/12312 Automated Chest x-ray reviewed no acute disease by ne CHEST PA AND LATERAL (Results Pending) Chest x-ray NAD EKG 12-LEAD (Results Pending) Procedures ED Course: A medical screening exam was performed. Pt seen and evaluated. Patient with improvement with the medication and GI cocktail. Patient recommended to followup with primary care physician. 0500 pt sleeping in no distress. Pt has had similar pain in the past and is encouraged to follow up with PCP. EKG NSR [address] elevation or depression, normal axis Disposition: Discharged The patient's pain was managed to an adequate level weighing risk vs. benefit of further medications. Upon departure from the Emergency Department, the patient's pain was 5 on a zero to ten scale. Condition at departure from the Emergency Department: Improved Discharge Prescriptions New Prescriptions No Discharge Prescriptions for this patient MDM Number of Diagnoses or Management Options Diagnosis management comments: Gastritis, peptic ulcer disease, GERD, chest pain, pneumothorax, mass, anxiety, PE 5 Amount and/or Complexity of Data Reviewed Clinical lab tests: ordered and reviewed Tests in the radiology section of CPT??: ordered and reviewed Review and summarize past medical records: yes Final diagnoses: Abdominal pain, epigastric Abdominal pain, left upper quadrant Chest pain PCP: MD She Wang 01/19/2012 5:14 documented in this encounter Miscellaneous Notes Scanned Note-Null - FIRE PILOT, SCAN 2 - 01/25/2012 1518 EST documented in this encounter Plan of Treatment Not on filedocumented as of this encounter Procedures Procedure Name Priority Date/Time Associated Comments Diagnosis ECG REPORT - SCANNED 02/05/2012 10:06 Res ults for this EST procedure are i n the results section. ED/URGENT CARE ADD-ON STAT 01/19/2012 4:10 Res ults for this EST procedure are i n the results section. CHEST PA AND LATERAL STAT 01/19/2012 3:46 Resu lts for this EST procedure are i n the results section. EKG 12-LEAD STAT 01/19/2012 3:17 Results for this EST procedure are i n the results section. TROPONIN I Routine 01/19/2012 2:55 Results for this EST procedure are i n the results section. DIFFERENTIAL Routine 01/19/2012 2:55 Results for this EST procedure are i n the results section. SED RATE Routine 01/19/2012 2:55 Results for this EST procedure are i n the results section. PROTIME Routine 01/19/2012 2:55 Results for this EST procedure are i n the results section. D-DIMER Routine 01/19/2012 2:55 Results for this EST procedure are i n the results section. COMPLETE BLOOD COUNT Routine 01/19/2012 2:55 Resu lts for this EST procedure are i n the results section. COMPLETE BLOOD COUNT STAT 01/19/2012 2:55 AND DIFFERENTIAL EST BUN STAT 01/19/2012 2:55 Results for this EST procedure are i n the results section. LIPASE STAT 01/19/2012 2:55 Results for this EST procedure are i n the results section. CREATININE STAT 01/19/2012 2:55 Results for this EST procedure are i n the results section. CK MB WITH TOTAL CK Routine 01/19/2012 2:55 Resul ts for this EST procedure are i n the results section. HEPATIC FUNCTION STAT 01/19/2012 2:55 Results for this PANEL (ALB,ALK EST procedure are in PHOS,ALT,AST,DBIL,TOT the re sults FRANK,TOT PROT) section. ELECTROLYTES STAT 01/19/2012 2:55 Results for this EST procedure are i n the results section. documented in this encounter Results ECG REPORT - SCANNED (02/05/2012 10:06 EST) Specimen Narrative 02/06/2012 1:38 EST Procedure Note FIRE PILOT, SCAN 2 - 02/05/2012 10:06 EST ED/WICC ADD-ON (01/19/2012 4:10 EST) Pathologist Sig nature Tests to be added DComment: DIMER [facility] Number for problems [id number] (ED) [facility] Specimen Performing Organization Address City/State/ZIP Code Phon e Number [facility] [address] [place] [address] SERVICES [facility] [address] [place] [address] CHEST PA AND LATERAL (01/19/2012 3:46 EST) Anatomical Region Laterality Modality Other Specimen Narrative [facility] - 01/19/2012 8:54 EST CHEST PA AND LAT ??Jan 19, 2012 03:46:00 AM Signs and Symptoms/Comments: ??chest brandy n Comparison: CT chest September 26, 2010. Findings: PA and lateral views of the est were obtained. The lungs are clear and there is no pleural effusi on or pneumothorax. The cardiac silhouette and pulmonary vascula ture are normal. The bones are normal for age. Impression: Normal chest. I have personally reviewed the images an d the above interpretation and agree with the findings. Procedure Note Vivek Silvestre MD - 01/19/2012 CHEST PA AND LAT Jan 19, 2012 03:46:00 A M Signs and Symptoms/Comments: chest pain Comparison: CT chest September 26, 2010. Findings: PA and lateral views of the ch est were obtained. The lungs are clear and there is no pleural effusi on or pneumothorax. The cardiac silhouette and pulmonary vascula ture are normal. The bones are normal for age. Impression: Normal chest. I have personally reviewed the images an d the above interpretation and agree with the findings. Performing Organization Address City/State/ZIP Code Phon e Number [facility] EKG 12-LEAD (01/19/2012 3:17 EST) Specimen Narrative [facility] - 02/02/2012 13 :44 EST ?[facility] ? Test Date: ?2012-01-19 Pat Name: ? SHIRLENE KOVACS ?Department: ?? ED ? Room: ? AC05 Gender: ? 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 [id number] : ?1985 ? Requested By: YARELI VANCE Order Number: [id number] ?Reading MD: ?? VAMSI CANTU MD ? Measurements Intervals ?Jane Lew ? Rate: ? 100 ?P: ?64 AK: ? 148 ?QRS: ?80 QRSD: ? 87 ? T: ?61 QT: ? 340 ? QTc: ?397 ? Interpretive Statements SINUS TACHYCARDIA POSSIBLE LEFT ATRIAL ENLARGEMENT ABNORMAL RHYTHM ECG Non specific ST No previous ECG available for comparison Edited by Gisella Kc MD on 01-22-12 12: 09:26 EST Electronically Signed On 02-02-12 13:44: 33 EST by VAMSI CANTU MD Procedure Note Vamsi Cantu Jr., MD - 02/02/2012 [facility] Test Date: 2012-01-19 Pat Name: SHIRLENE KOVACS Department: ED Room: [facility] Gender: F Handkerchief Sample Clerk: [id number] : 1985 Requested By: YARELI VANCE Order Number: [id number] Reading MD: RUSSELL CANTU MD Measurements Intervals Jane Lew Rate: 100 P: 64 AK: 148 QRS: 80 QRSD: 87 T: 61 QT: 340 QTc: 397 Interpretive Statements SINUS TACHYCARDIA POSSIBLE LEFT ATRIAL ENLARGEMENT ABNORMAL RHYTHM ECG Non specific ST No previous ECG available for comparison Edited by Gisella Kc MD on 01-22-12 12: 09:26 EST Electronically Signed On 02-02-12 13:44: 33 EST by VAMSI CANTU MD Performing Organization Address [facility] Code Phon e Number [facility] [address] [facility] [address] [facility] [address] [place], [place] [address] D-DIMER (01/19/2012 2:55 EST) Pathologist Sig nature D-Dimer <200Comment: CUTOFF <230 ng/mL [facility] VALUE FOR THE EXCLUSION OF DVT and PE: 230 ng/mL D-dimer units Specimen Performing Organization Address [facility] Phon e Number [facility] [address] [place] [address] SERVICES [facility] [address] [place] [address] (ABNORMAL) DIFFERENTIAL (01/19/2012 2:55 EST) Pathologist Sig nature Neutrophils 50.5 45.5 - 79.7 % [facility] Lymphocytes 38.1 15.0 - 46.8 % [facility] Monocytes 7.6 1.8 - 12.0 % [facility] Eosinophils 1.9 0.6 - 6.9 % [facility] Basophils 1.9 (H) 0.2 - 1.4 % [facility] ABS Neutrophils 4.05 2.20 - 8.85 K/cmm [facility] ABS Lymphs 3.05 1.09 - 3.30 K/cmm [facility] ABS Monocytes 0.61 0.1 - 0.8 K/cmm [facility] ABS Eosinophils 0.15 0.03 - 0.61 K/cmm [facility] ABS Basophils 0.16 (H) 0.01 - 0.11 K/cmm [facility] Type of Diff: Automated [facility] Specimen Performing Organization Address City/[facility]/ZIP Code Phon e Number [facility] [address] [place] [address] SERVICES [facility] [address] [place] [address] HEMAGRAM (01/19/2012 2:55 EST) Pathologist Sig nature WBC 8.01 4.0 - 12.4 K/cmm [facility] RBC 4.37 3.86 - 5.04 M/cmm [facility] Hemoglobin 14.3 11.6 - 15.2 gm/dl [facility] HCT 41.7 34.9 - 44.4 % [facility] MCV 96 81 - 98 fl [facility] MCH 32.7 26.7 - 33.3 pg [facility] MCHC 34.2 32.1 - 35.9 gm/dl [facility] PLT 252 141 - 320 K/cmm [facility] RDW-CV 13.5 11.7 - 14.6 % [facility] Specimen Performing Organization Address [facility]/ZIP Code Phon e Number [facility] [address] [place] [address] SERVICES [facility] [address] [place] [address] TROPONIN I (01/19/2012 2:55 EST) Pathologist Sig nature Troponin I (ng/mL) <0.034 <0.034 ng/ml [facility] Specimen Performing Organization Address City/[facility]/ZIP Code Phon e Number [facility] [address] [place] [address] SERVICES [facility] [address] [place] [address] SED. RATE:WESTERGREN (01/19/2012 2:55 EST) Pathologist Sig nature Sed. Rate Westergren 1 0 - 20 mm/hr [facility] Specimen Performing Organization Address City/[facility]/ZIP Code Phon e Number [facility] [address] [place] [address] SERVICES [facility] [address] [place] [address] PROTIME (01/19/2012 2:55 EST) Pro Time 10.9 9.5 - 13.1 [facility] secs I.N.R. 1.0 0.9 - 1.1 [facility] Comment: Ratio Moderate Intensity Coumadin INR = 2.0-3.0 Adjustments in anticoagulant therapy dose should be based upon the INR and NOT the Pro Time. Specimen Performing Organization Address [facility]/ZIP Code Phon e Number [facility] [address] [place] [address] SERVICES [facility] [address] [place] [address] CK MB WITH TOTAL CK (01/19/2012 2:55 EST) Pathologist Sig nature CK 121 30 - 135 U/L [facility] MB 0.90 <2.95 ng/ml [facility] Specimen Performing Organization Address [facility] Phon e Number [facility] [address] [place] [address] SERVICES [facility] [address] [place] [address] LIPASE (01/19/2012 2:55 EST) Pathologist Sig nature Lipase 130 0 - 250 U/L [facility] Specimen Blood specimen (specimen) Performing Organization Address [facility] Phon e Number [facility] [address] [place] [address] SERVICES [facility] [address] [place] [address] (ABNORMAL) LIVER FUNCTION TESTS (01/19/2012 2:55 EST) Pathologist Sig nature Albumin 4.2 3.4 - 4.9 g/dl [facility] Total Protein 7.2 6.5 - 8.3 g/dl [facility] Total Alkaline 85 38 - 126 U/L [facility] Phosphatase ALT 65 (H) 9 - 52 U/L [facility] AST 48 (H) 15 - 46 U/L [facility] Unconjugated Bilirubin 0.1 0.1 - 1.1 mg/dl [facility] Conjugated Bilirubin 0.0 0.0 - 0.3 mg/dl [facility] B Bilirubin, Total 0.5 0.2 - 1.3 mg/dl [facility] Specimen Blood specimen (specimen) Performing Organization Address [facility] Phon e Number [facility] [address] [place] [address] SERVICES [facility] [address] [place] [address] CREATININE (01/19/2012 2:55 EST) Pathologist Sig nature Creatinine 0.67 0.52 - 1.04 mg/dl [facility] GFR, Calculated >60 >60 ml/min/1.73m2 [facility] Specimen Blood specimen (specimen) Performing Organization Address [facility] Phon e Number [facility] [address] [place] [address] SERVICES [facility] [address] [place] [address] BUN (01/19/2012 2:55 EST) Pathologist Sig nature BUN 13 10 - 26 mg/dl [facility] Specimen Blood specimen (specimen) Performing Organization Address [facility] Phon e Number [facility] [address] [place] [address] SERVICES [facility] [address] [place] [address] ELECTROLYTES (01/19/2012 2:55 EST) Pathologist Sig nature Sodium 142 136 - 145 mEq/L [facility] Potassium 4.1 3.5 - 5.0 mEq/L [facility] Chloride 106 96 - 110 mEq/L [facility] CO2 26 24 - 32 mEq/L [facility] Specimen Blood specimen (specimen) Performing Organization Address [facility] Phon e Number [facility] [address] [place] [address] SERVICES [facility] [address] [place] [address] documented in this encounter Visit Diagnoses Diagnosis Abdominal pain, epigastric Abdominal pain, left upper quadrant Chest pain Chest pain, unspecified documented in this encounter Administered Medications Inactive Administered Medications - up to 3 most recent administrations Medication Order MAR Action Action Date Dose Rate Site aluminum & magnesium Given 01/19/2012 2:58 EST 15 mL hydroxide-simethicone (MYLANTA-DS) 400-400-40 mg/5 mL suspension 15 mL 15 mL, oral, NOW X1, 1 dose, On Sun01/19/12 at 0315, STAT famotidine (PEPCID) 20 mg/2 mL injection 20 mg Given 01/19/2012 3:00 EST 20 mg 20 mg, intravenous, NOW X1, 1 dose, On Sun01/19/12 at 0315, STAT HYDROmorphone (PF) (DILAUDID) 1 mg/mL injection 1 Given 01/19/2012 3:13 EST 1 mg mg 1 mg, intravenous, NOW X1, 1 dose, On Sun01/19/12 at 0330, STAT lidocaine (XYLOCAINE) 2 % viscous soluti on 15 mL Given 01/19/2012 2:58 EST 15 mL 15 mL, oral, NOW X1, 1 dose, On Sun01/19/12 at 0315, STAT lorazepam (ATIVAN) injection 1 mg Given 01/19/2012 3:15 EST 1 mg 1 mg, intravenous, NOW X1, 1 dose, On Sun01/19/12 at 0330, STAT documented in this encounter Discontinued Medications Medication Sig Discontinue Reason Start Date End Date fluoxetine (PROZAC) 20 mg Take 40 mg by mouth Error 01/19/2012 capsule daily. documented as of this encounter Historical Medications This list may reflect changes made after this encounter. Medication Sig Dispensed Refills Start Date End Date risperidone (RISPERDAL) 0.5 Take 1 mg by mouth 0 mg tablet daily. added in this encounter Active and Recently Administered Medications Times are shown in EST. Scheduled Medication Order 01/17/2012 01/18/2012 01/19/2012 aluminum & magnesium hydroxide-simethico ne (MYLANTA-DS) 400-400-40 mg/5 mL suspension 15 mL (COMPLETED) 257 (Given - Provider: Cooper Turner RN) 15 mL, Oral, NOW X1, 1 dose, 01/19/12 at 314 famotidine (PEPCID) 20 mg/2 mL injection 20 mg (COMPLETED) 299 (Given - Provider: Cooper Turner RN) 20 mg, Intravenous, NOW X1, 1 dose, Sun01/19/12 at 031 HYDROmorphone (PF) (DILAUDID) 1 mg/mL injection 1 mg (COMPLETED) 312 (Given - Provider: Cooper Turner RN) 1 mg, Intravenous, NOW X1, 1 dose, Sun01/19/12 at 0330 lidocaine (XYLOCAINE) 2 % viscous solution 15 mL (COMPLETED) 257 (Given - Provider: Cooper Turner RN) 15 mL, Oral, NOW X1, 1 dose, 01/19/12 at 031 lorazepam (ATIVAN) injection 1 mg (COMPLETED) 0315 (Given - Provider: Cooper Turner, RN) 1 mg, Intravenous, NOW X1, 1 dose, 01/19/12 at 0330 documented in this encounter Orders Nursing Count Last Ordered Date First Ordered Date INSERT SALINE LOCK 01/19/2012 documented in this encounter Additional Health Concerns Infection Onset Date Last Indicated Resolved Time MRSA 05/06/2010 05/06/2010 documented as of this encounter Care Teams Data Officer Relationship Specialty Start Date End Date Talya Machado MD PCP - General 02/05/[address] [place] [id number] documented as of this encounter
--- OUTSIDE RECORDS SUMMARY | 2021-10-20 08:06 | XMS_ITS | Encounter Summary ---
:1985 Author Organization [facility] Address [address] [place] [address] Care Team Providers Name Role Phone Unavailable Primary Care Provider Unavailable Encounter Details Date Type Department Care Team Description 07/08/2009 Results Only [facility] [place] Moshe Krishnan, Laboratory Services - [address] [address] [place], [place] [id number] [phone] Social History Tobacco Use Types Packs/Day Years Used Date Never Assessed Sex Assigned at Date Recorded Not on file documented as of this encounter Plan of Treatment Not on filedocumented as of this encounter Procedures Procedure Name Priority Date/Time Associated Comments Diagnosis HPV DETECTION, HIGH Routine 07/08/2009 9:30 Resul ts for this RISK TYPES EDT procedure are i n the results section. CYTOPATHOLOGY Routine 07/08/2009 0:00 Results for this EDT procedure are i n the results section. documented in this encounter Results HUMAN PAPILLOMA VIRUS DNA TEST (07/08/2009 9:30 EDT) Specimen Description Cervix, ThinPrep [facility] vial Result Negative for HPV [facility] types 16, 18, 31, 33, 35, 39, 45, 51, 52, 56, 58, 59, and 68. Report Status Final [facility] 07/21/2009 Specimen Performing Organization Address City/State/ZIP Code Phon e Number [facility] [address] [place] [address] SERVICES [facility] [address] [place] [address] CYTOPATHOLOGY (07/08/2009 0:00 EDT) Pathology Report: CYTOPATHOLOGY REPORT ? OSEGUERA ALL EN ? LAB Reports generated via electr onic interface contain original data; ? however they are lacking the format of the original report. ? Caution should be taken when reading/interpreting unformatted reports. ? Name: ? SHIRLENE PARKS ? Accession #: ? [id number] ? : ? 1985 (Age: 24) ??F ?Collect Date: ? 07/08/2009 ? Location: ? [facility] ? Receive Date: ? 07/12/2009 ? Provider: ?MOSHE WHITNEY IBODEAU MICRO LAB ANALYST ? Copy to: ? Specimen/Source: ? Pap Test, Cervix/Endocervix, ThinPrep Imaging System ? with manual evaluation ? Last Menstrual Period: ? 05/16/10 ? Other: ? HPVA - HPV testing requested if ASC-US on the current ThinPrep Pap test. ? SPECIMEN ADEQUACY ? Satisfactory for Eval uation ? - transformation zone compon ent present ? - scant squamous epithelial component secondary to excessive blood ? GENERAL CATEGORIZATION ? Epithelial Cell Abnor mality ? INTERPRETATION ? Squamous Cell Abnorma lity - Atypical squamous cells, undetermined ? significance (ASC-US). ? EDUCATIONAL NOTES/RECOMMENDA TIONS ? FA recommends follo wing the 2006 Consensus Guidelines for the Management of Women with Abnormal Cervi smitha Cancer Screening Tests (JLGTD, ? 2007;11(4):201-222). ??Conse nsus guidelines are available online at ? www.ASCCP.org. ? Document reviewed and electr onically signed by: ? Reuben German Miguel Ángel , MD ? Report Date: ??06/14/ 2010 13:10 ? End of Report ? Specimen Performing Organization Address City/State/ZIP Code Phon e Number [facility] [address] [place] [address] SERVICES [facility] [address] [place] [address] documented in this encounter Visit Diagnoses Not on filedocumented in this encounter
--- OUTSIDE RECORDS SUMMARY | 2021-10-20 08:06 | XMS_ITS | Encounter Summary ---
:1985 Author Organization [facility] Address [address] [place] [address] Care Team Providers Name Role Phone Unknown, Provider Primary Care Provider Encounter Details Date Type Department Care Team Description 12/26/2005 Results Only [facility] - Manuel Gonzalez MD Maple conversion [address] [place] [address] [place], [place] [id number] [phone] Social History Tobacco Use Types Packs/Day Years Used Date Never Assessed Sex Assigned at Date Recorded Not on file documented as of this encounter Plan of Treatment Not on filedocumented as of this encounter Procedures Procedure Name Priority Date/Time Associated Diagnosis Comme [facility] SURGICAL PATHOLOGY Routine 12/26/2005 0:00 EST Re sults for this procedure are i n the results section. documented in this encounter Results SURGICAL PATHOLOGY (12/26/2005 0:00 EST) Pathology Report: SURGICAL PATHOLOGY REPORT [facility] Reports generated via electronic interface contain dominik ginal data; LAB however they are lacking the format of the original re port. Caution should be taken when reading/interpreting unfo rmatted reports. Name: ? SHIRLENE PARKS ? Accession #: ? [id number] ? : ? 1985 (Age: 20) ??F ? Collect Date: ? 12/26/2005 ? Location: ? [facility] ? Receive Date: ? 12/28/19 06 ? Provider: CHANEL GONZALEZ MD Copy to: THOMAS CANDELARIA MD ? Addendum ? Date Ordered: ? 01/08/2006 ? Status: Si gned Out ? Date Complete: ? 01/08/2006 ? By: Stoney yudy [facility] ? Date Reported: ? 01/08/2006 ? Addendum Diagnosis ? Cervix, LLETZ (SEE ADDENDUM COMMENT): ? - Acute and chronic cervicitis with reactive sq uamous metaplasia. ? Final Pathologic Diagnosis Comment: ? Deeper sections have been examined. ??The referring Pap smear ([id number]) has been reviewed. ??Althoug h the reactive metaplastic cells present on the LLETZ share some morphologic simil arity with the ASCUS cannot rule out HSIL cells on the Pap, there is no definitive dysplasi a seen in the LLETZ. ??Continued close clinical follow-up is advised. This case was rev iewed by Dr. Fidelia Morgan. (Dr. Tejada) Addendum Gross description: Received in formalin labelled Parks is a 1.2 cm in diameter unoriented product of a LLETZ excision excised to a maximum depth of 0.9 cm. ??There is a central slit-like os surrounded by neves-white smooth gl istening mucosa. ??The endocervical region is inked black, the ectocervical region blue. ??The specimen is radially sectioned and sequentially submitted in it s entirety as (A1) to (A6). ??(Toribio Espinoza)/[facility] ?? Addendum Comment ? This addendum is issued to [facility] t the specimen procedure listed in the original pathology reports. ??The procedure perf ormed was a LLETZ and not a LEEP. ??There is no change in the diagnosis. ??(Dr. Barrera)/[facility] Document reviewed and electronically signed by: ? Jerel Barrera MD ? Report date: 01/08/2006 By the signature above, the attending physician certif ies that he/she has personally conducted a gross and/or microscopic examin ation of the described specimens and rendered or confirmed the above diagnosi s. Final Pathologic Diagnosis: ? Cervix, LEEP: - Acute and chronic cervicit is with reactive squamous metaplasia. ??See comment. Comment: ? Deeper sections have been examined. ??The referring Pap smear ([id number]) has been reviewed. Although the reactive metaplastic cells present on the LEEP share some morphologic simil arity with the ASCUS cannot rule out HSIL cells on the Pap, there is no definitive dysplasia seen in the LEEP. Continued close clinical follow-up is advised. This case was rev iewed by Dr. Fidelia Morgan. (Dr. Tejada)/[facility] Document reviewed and electronically signed by: Lizandro Spring MD Report ??Date: 01/03/2006 18:46 By the signature above, the attending physician certif ies that he/she has personally conducted a gross and/or microscopic examin ation of the described specimens and rendered or confirmed the above diagnosi s. Specimen(s) Received: ? Cervical bx Clinical History: ? Endocervical lesion, ANDREA & high risk HPV, LMP: Dec.09 Gross Description: ? Received in formalin labelled Parks is a 1.2 cm in diameter unoriented product of a LEEP excision excised to a maximum depth of 0.9 cm. ??There is a central slit-like os surrounded by neves-white smooth gl istening mucosa. ??The endocervical region is inked black, the ectocervical region blue. ??The specimen is radially sectioned and sequentially submitted in it s entirety as (A1) to (A6). ??(Toribio Espinoza)/[facility] End of Report Specimen Performing Organization Address City/State/ZIP Code Phon e Number [facility] [address] [place] [address] SERVICES [facility] [address] [place] [address] documented in this encounter Visit Diagnoses Not on filedocumented in this encounter Care Teams Tub Chucker Relationship Specialty Start Date End Date Unknown, Provider, PCP - General 07/21/09 05/02/10 documented as of this encounter
--- OUTSIDE RECORDS SUMMARY | 2021-10-20 08:06 | XMS_ITS | Encounter Summary ---
:1985 Author Organization [facility] Address [address] [place] [address] Care Team Providers Name Role Phone Talya Machado MD Primary Care Provider [phone] Encounter Details Date Type Department Care Team Description 05/02/2012 Results Only [facility]- [facility] Gage Joseph MD [phone] [place] [address] Social History Tobacco Use Types Packs/Day Years [...] Diagnosis Comme nts PAP TEST- RESULT Routine 05/02/2012 0:00 EDT Resu lts for this ONLY procedure are i n the results section. documented in this encounter Results PAP TEST- RESULT ONLY (05/02/2012 0:00 EDT) Pathology Report: CYTOPATHOLOGY REPORT [facility] Reports generated via electronic interface contain dominik ginal data; however they are lacking the format of the original re port. Caution should be taken when reading/interpreting unfo rmatted reports. Name: ? SHIRLENE PARKS ? Accession #: ? [id number] : ? 1985 (Age: 26) ??F ?Collect Date: ? 04/06 Location: ? [facility] ? Receive Date : ? 05/03/2012 Provider: ?GAGE JOSEPH MD Copy to: ?MARKELL VITALE TIMBER PACKER ? Specimen/Source: ? Pap Test, Cervix/Endocervix, ThinPrep Imaging System with manual evaluation Last Menstrual Period: ? 04/18/2012 Previous Gynecologic Pathology: ? ANDREA I: h/o ANDREA II: h/o HPV Other: ? Additional clinical information: hx of hodgkins dz, pa p negative ? SPECIMEN ADEQUACY ? Satisfactory for Evaluation - transformation zone component present GENERAL CATEGORIZATION ? Negative for Intraepithelial Lesion or Malignan cy INTERPRETATION ? Reactive cellular maryuri nges associated with inflammation present (includes repair). Shift in vadim present suggestive of bacterial vaginos is. ? Document reviewed and electronically signed by: ? MEI OSORIO MD ? 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
[2021-10-20 08:34] LABS: Bilirubin Negative (Negative); Blood Negative (Negative); Clarity Clear (Clear); Glucose Negative (Negative); Ketones Negative (Negative); Leukocyte Esterase Negative (Negative); Nitrite Negative (Negative); Specific Gravity >= 1.030 (1.005-1.025); Urobilinogen 0.2 EU/dL (Up TO 0.2)
[2021-10-20 08:40] LABS: Bacteria Moderate HPF (Negative); Crystals Negative HPF (Negative); Epithelial Cells Many HPF (Negative); Mucus Trace (Negative); RBC 0-2 HPF (0-2); WBC 0-2 HPF (0-5)
[2021-10-20 08:41] LABS: C & S Indicated? No/Sq. Contamination; Casts Negative LPF (Negative)
[2021-10-20] MEDS: LORazepam 1 MG TAB PO ×2 (08:50→19:46)
--- NOTE | 2021-10-20 09:00 | DI.RAD_ITS ---
Exam(s) XR THUMB RT EXAM: XR THUMB RT CLINICAL HISTORY: felon,INJURY, ? ABSCESS, PAIN. TECHNIQUE: 2D digital imaging was performed of the right finger. Three views were obtained. PA/AP, oblique, and lateral views were obtained. COMPARISON: No exams were available for comparison FINDINGS: BONES: No acute fracture is present. No bony destructive lesion is seen. JOINTS: No dislocation present. SOFT TISSUE: Normal. IMPRESSION: No acute abnormality. DATA REPOSITORY: RADIATION DOSE DELIVERED:
--- NOTE | 2021-10-20 09:25 | NUR.NOTE ---
provider spoke with patient no longer suicidal risk at this time. This nurse walked patient to X-Ray patient cooperative but anxious. Hand off given to X-ray techs
[2021-10-20 10:43] LABS: Source Nasal/Nares
--- NOTE | 2021-10-20 10:59 | HPE_ITS ---
Date of service: 10/20/21 Time of Service: 10:59 Assessment and Plan Assessment and plan (1) Yamilet of finger of right hand: Status: Acute Assessment and plan: I think she has a faint line of the right thumb. We discussed the risks and benefits of draining that in the operating room. She provided informed consent. I would start antibiotics for now, and I can get some cultures in the OR. History of Present Illness Narrative: Jocelyn is a 36-year-old woman with a past medical history that is most relevant for intravenous drug abuse. She comes to the ER with several days of increasing right-sided pelvic pain. Originally it was just a little red, with maybe some darkness in the center. Over the past 24 to 36 hours, its increase in size fairly dramatically, and the pain is now excruciating. She denies any fevers, chills, or systemic signs of illness. She is quite anxious. Review of Systems Constitutional Constitutional: Reports body ache(s), Reports fatigue and Denies fever(s) Eyes Eyes: Reports system reviewed and no additional complaints, except as documented ENT Ears, Nose, Mouth, and Throat: Reports system reviewed and no additional complaints, except as documented Cardiovascular Cardiovascular: Denies chest pain and Denies dyspnea Respiratory Respiratory: Denies chest congestion, Reports cough and Denies dyspnea Gastrointestinal Gastrointestinal: Denies abdominal pain and Denies change in bowel habits Musculoskeletal Musculoskeletal: Reports back pain and Reports myalgias Psychiatric Psychiatric: Reports anxiety Endocrine Endocrine: Reports fatigue Hematologic/Lymphatic Hematologic/Lymphatic: Denies easy bleeding and Denies easy bruising PFSH All Active Problems (Updated 10/20/21 @ 11:04 by Tulio Funez MD) Yamilet of finger of right hand (Acute) RUQ abdominal pain (Acute) Ureterolithiasis (Acute) Constipation (Acute) Recurrent UTI (Acute) Hemorrhoids (Acute) Dyspepsia (Acute) Frequent headaches (Acute) Medical History Cervical intraepithelial neoplasia Depression GERD (gastroesophageal reflux disease) Hepatitis C Herpes simplex Hodgkins disease Hypothyroidism Kidney stone Peripheral neuropathy Shingles Tobacco use Tubular adenoma of colon Surgical History lateral sphincterotomy (02/11/16) Social History Smoking/Tobacco Use Status: Current every day Tobacco Type: cigarettes Smoking risk assessment performed?: Yes Alcohol Intake: current Alcohol Intake frequency: holidays/special occasions only Drug use: Daily Substance use type: marijuana, crack/cocaine and heroin Do you feel safe at home: No (suicidal) Do you feel safe in your relationship?: Yes Meds Allergies and Home Medications Allergies Allergy/AdvReac Type Severity Reaction Status Date / Time bupropion HCl Allergy Mild unknown Unverified 10/20/21 07:54 [From Wellbutrin] duloxetine HCl Allergy Mild unknown Unverified 10/20/21 07:54 [From Cymbalta] phenolphthalein [From Ex-Lax] Allergy Unknown SEIZURES Unverified 10/20/21 07:54 varenicline tartrate Allergy seizure Unverified 10/20/21 07:54 [From Chantix] Penicillins AdvReac Intermediate vomiting/pa Unverified 10/20/21 07:54 in ukn antidepression med Allergy Uncoded 10/20/21 07:54 Home Medications Medication Instructions Recorded Confirmed Type Unknown [No Known Home Meds] 10/20/21 10/20/21 History Exam Resp Effort & Inspection: normal respiratory effort Auscultation: clear to auscultation bilaterally Cardio Jugular venous pressure: no JVD Rate: regular rate Rhythm: regular rhythm Extrem Hand/finger images: 1. erythema, edema, tenderness and fluctuance Right lower extremity: full ROM and normal capillary refill Other: Palpable radial and ulnar pulses. Results Labs Labs: Laboratory Results - last 24 hr 10/20/21 10/20/21 08:10 10:35 Urine Color Yellow Urine Clarity Clear Urine pH 6.0 Ur Specific [place] >= 1.030 H Urine Protein Trace H Urine Ketones Negative Urine Blood Negative Urine Nitrite Negative Urine Bilirubin Negative Urine Urobilinogen 0.2 Ur Leukocyte Esterase Negative Urine RBC 0-2 Urine WBC 0-2 Ur Epithelial Cells Many Urine Crystals Negative Urine Bacteria Moderate Urine Casts Negative Urine Mucus Trace Ur Culture Indicated? No/Sq. Contamination Urine Glucose Negative COVID-19 Source Nasal/Nares Last Vital Signs Temp 96.8 F L 10/20/21 07:54 Pulse 129 H 10/20/21 07:54 Resp 24 10/20/21 07:54 BP 141/79 H 10/20/21 07:54 Pulse Ox 97 10/20/21 07:54 PAWSS Have you Been Recently Intoxicated or Drunk Within the Last 30 days?: Yes Have you Ever Experienced Previous Episodes of Alcohol Withdrawal?: No Have you ever Experienced Withdrawal Seizures?: No Have you ever Experienced Delirium Tremens(DT)s?: No Have you ever undergone Alcohol Rehabilitation Treatment (i.e, inpt ot outpatient treatment programs)?: Yes Have you ever Experienced Blackouts?: Yes Have you ever Combined Alcohol with other Downers within the last 90 days?: Yes Have you ever Combined Alcohol with any other Substance of Abuse during the last 90 days?: Yes Positive Blood Alcohol level on Presentation? [PCS.BAL]: No Evidence of Increased Autonomic Activity (i.e. HR>120, tremor, sweating, agitation, nausea)?: Yes Result: 6
[2021-10-20] MEDS: LORazepam 20 MG/10 ML VIAL IVP ×2 (11:04→12:11)
[2021-10-20 11:21] LABS: COVID-19 PCR Negative (Negative)
[2021-10-20] MEDS: Ketorolac 15 MG/ML VIAL IVP (11:37)
--- NOTE | 2021-10-20 12:05 | ANES.PREOP_ITS ---
General Info Date of Service Date Performed: 10/20/21 Height: 5 ft 9 in Weight: 69.4 kg Body Mass Index (BMI): 22.6 Surgical Procedure: Operation Date: 10/20/21 12:55 Proposed Procedure Side Surgeon p I&D of Wally Rt Thumb Right Tulio Funez MD Meds Allergies and Home Medications Allergies Allergy/AdvReac Type Severity Reaction Status Date / Time bupropion HCl Allergy Mild unknown Unverified 10/20/21 07:54 [From Wellbutrin] duloxetine HCl Allergy Mild unknown Unverified 10/20/21 07:54 [From Cymbalta] phenolphthalein [From Ex-Lax] Allergy Unknown SEIZURES Unverified 10/20/21 07:54 varenicline tartrate Allergy seizure Unverified 10/20/21 07:54 [From Chantix] Penicillins AdvReac Intermediate vomiting/pa Unverified 10/20/21 07:54 in ukn antidepression med Allergy Uncoded 10/20/21 07:54 Home Medication Medication Instructions Recorded Unknown [No Known Home Meds] 10/20/21 [facility] Active Problems Active Problems: Problem Status Onset Code Felon of finger of right hand L03.011 RUQ abdominal pain R10.11 Ureterolithiasis N20.1 Constipation K59.00 Recurrent UTI Hemorrhoids Dyspepsia Frequent headaches Medical History Medical History Cervical intraepithelial neoplasia Depression GERD (gastroesophageal reflux disease) Hepatitis C Herpes simplex Hodgkins disease Hypothyroidism Kidney stone Peripheral neuropathy Shingles Tobacco use Tubular adenoma of colon Surgical History Surgical History lateral sphincterotomy (02/11/16) Tobacco Smoking/Tobacco Use Status: Current every day Tobacco Type: cigarettes Smoking cigarettes per day: 10 Alcohol Alcohol Intake: current Alcohol intake frequency: holidays/special occasions only Substance Use Substance use: Daily Substance use type: marijuana, crack/cocaine and heroin Vital Signs and Lab Results Vital Signs Most Recent Vital Signs in EMR: Most Recent Vital Signs Temp Pulse Resp BP Pulse Ox 36.9 C 97 H 24 135/82 97 10/20/21 11:17 10/20/21 11:17 10/20/21 07:54 10/20/21 11:17 10/20/21 07:54 Point of Care Results Point of Care Results: POC- Test(urine) Negative 10/20/21 08:19 Lab Results Blood Type / Crossmatch: No Data to Display Complete Blood Count: White Blood Count 11.64 10^3/uL (4.4-10.8) H 10/09/21 18:30 Red Blood Count 4.69 10^6/uL (3.93-5.22) 10/09/21 18:30 Hemoglobin 14.1 g/dL (11.2-15.7) 10/09/21 18:30 Hematocrit 42.0 % (36.0-46.0) 10/09/21 18:30 Platelet Count 357 10^3/uL (130-400) 10/09/21 18:30 Complete Metabolic Panel: Sodium Level 141 mmol/L (136-145) 10/09/21 18:35 Potassium Level 4.9 mmol/L (3.5-5.1) 10/09/21 18:35 Chloride Level 104 mmol/L (98-107) 10/09/21 18:35 Carbon Dioxide Level 30.9 mmol/L (21.0-32.0) 10/09/21 18:35 Blood Urea Nitrogen 12 mg/dL (7-18) 10/09/21 18:35 Creatinine 0.9 mg/dL (0.55-1.02) 10/09/21 18:35 Magnesium Level 2.2 mg/dL (1.8-2.4) 10/09/21 18:35 Calcium Level 9.3 mg/dL (8.5-10.1) 10/09/21 18:35 Albumin 3.4 g/dL (3.4-5.0) 10/09/21 18:35 Glucose Level 147 mg/dL (74-106) H 10/09/21 18:35 Liver Function Panel: Alanine Aminotransferase (ALT/SGPT) 16 U/L (14-59) 10/09/21 18: 35 Aspartate Amino Transf (AST/SGOT) 9 U/L (15-37) L 10/09/21 18:3 5 Coagulation Panel: No Data to Display Cardiac Panel: No Data to Display Arterial Blood Gas: No Data to Display Venous Blood Gas: No Data to Display Pancreas Panel: Lipase 40 U/L (73-393) 10/09/21 18:35 Thyroid Panel: No Data to Display Infectious Disease: Coronavirus (COVID-19)(PCR) Negative (Negative) 10/20/21 10:35 Coronavirus 2019 Source Nasal/Nares 10/20/21 10:35 Blood Cultures: No Data to Display Toxicology Panel: Urine Amphetamines Screen Negative (Negative) 10/06/21 06:30 Urine Benzodiazepines Screen Negative (Negative) 10/06/21 06:3 0 Urine Barbiturates Screen Negative (Negative) 10/06/21 06:30 Urine Cocaine Screen Positive (Negative) A 10/06/21 06:30 Urine Methadone Screen Negative (Negative) 10/06/21 06:30 Urine Opiates Screen Negative (Negative) 10/06/21 06:30 Ur Tricyclic Antidepressants Screen Negative (Negative) 06:30 Ur Tetrahydrocannabinol (THC) Scrn Positive (Negative) A 10/06 06:30 Panel: No Data to Display Anesthesia Assessment and Plan Anesthesia History Personal History: No History of Anesthesia Complications Family History: No Family History of Anesthesia Complications Exercise Tolerance Exercise Tolerance: Metabolic Equivalents>4 Cardiac & Pulmonary Exam Cardiac Exam: Normal S1/S2 Heart Sounds Pulmonary Exam: Clear Bilateral Breath Sounds Implantable Cardiac Device Does patient have a Pacemaker or an ICD?: No Airway Exam Known Difficult Airway: No Mallampati Class: 2 Mouth Opening: Normal (> 3cm) Thyromental Distance: Greater than 3 cm Neck Range of Motion: Full ROM Neck Circumference: Normal Teeth Condition: Generalized Poor Dentition and Removable Dentures/Plates Upper ASA Classification ASA Score: ASA 3 Emergency Case?: Yes NPO Status NPO Status: Unable to Assess Status Status: Not Relevant due to Medical History Anesthesia Plan Resuscitation Status: Full Code Anesthesia Technique: General Anesthesia Airway Planned: Endotracheal Tube Monitors Used: Standard Monitors Preoperative Comments:: 36 yo female for ID right thumb. Currently in the ED. recent herion consumption. ED has given her lorazapam to help her calm down. Currently vacilating between awake and alert and anwsering questions appropriatly to falling asleep. Sig PMHx: IVDA, smoker, hepc, GERD, hypothyroid.
--- NOTE | 2021-10-20 12:48 | W.ED.GENAD ---
Discharge Plan Disposition Patient Disposition: [facility] Condition: Serious Discharge Details Clinical Impression: Juanito Primary Care Provider: None,None ED Provider: Nicci Blank Discharge Data Discharge Date/Time-TO BE ENTERED AT DEPARTURE: 10/20/21 13:03 Medical Decision Making pt is emotionally labile and ivda, she will not likely tolerate incision and drainage and we do not have the capacity during this medical surgery to perform conscious sedation in the emergency department Dr. Stevenson, orthopedics was consulted and does not feel he has the capability to perform incision and drainage of mary jo in the emergency department at this time, I therefore consulted Dr. Funez, general surgery who is willing to perform incision and drainage on this patient in the operating room HPI General Date/Time Provider Initiated Documentation: 10/20/21 08:09. HPI Narrative: This 36-year-old female with history of IV drug abuse presents with infection on right hand, specifically right thumb. She states that she has been smoking crack cocaine and is wondering if she burned the site. She states the redness and swelling is worsened. She denies fever or chills. She denies any chest pain or shortness of breath. She feels very anxious. Initially she mentioned to triage that she was feeling suicidal, however she was told to mention that by the rehabilitation line so that she could be placed. To me she declines any suicidality. She states she feels remorse regarding her life choices. She denies any plan to harm herself at this time. She states that the pain is resolved from the infection that she will feel significant improvement. She would like to go to rehabilitation has been making steps to be discharged to rehab from the emergency department. She last used heroin approximately an hour prior to arrival in the emergency department. Related Data Allergies Allergy/AdvReac Type Severity Reaction Status Date / Time bupropion HCl Allergy Mild unknown Unverified 10/20/21 07:54 [From Wellbutrin] duloxetine HCl Allergy Mild unknown Unverified 10/20/21 07:54 [From Cymbalta] phenolphthalein [From Ex-Lax] Allergy Unknown SEIZURES Unverified 10/20/21 07:54 varenicline tartrate Allergy seizure Unverified 10/20/21 07:54 [From Chantix] Penicillins AdvReac Intermediate vomiting/pa Unverified 10/20/21 07:54 in ukn antidepression med Allergy Uncoded 10/20/21 07:54 General Stated Complaint: Cellulitis JERMAIN: 2 Review of Systems All systems reviewed & are unremarkable except as noted in HPI and below PFSH All Active Problems (Updated 10/23/21 @ 08:32 by PINKY Juarez) Felon of finger (Acute) Felon of finger of right hand (Acute) Ureterolithiasis (Acute) Constipation (Acute) Recurrent UTI (Acute) Hemorrhoids (Acute) Dyspepsia (Acute) Frequent headaches (Acute) Medical History Cervical intraepithelial neoplasia Depression GERD (gastroesophageal reflux disease) Hepatitis C Herpes simplex Hodgkins disease Hypothyroidism Kidney stone Peripheral neuropathy Shingles Tobacco use Tubular adenoma of colon Surgical History lateral sphincterotomy (02/11/16) Social History Smoking/Tobacco Use Status: Current every day Tobacco Type: cigarettes Smoking risk assessment performed?: Yes Alcohol Intake: current Alcohol Intake frequency: holidays/special occasions only Drug use: Daily Substance use type: marijuana, crack/cocaine and heroin Do you feel safe at home: No (suicidal) Do you feel safe in your relationship?: Yes Exam Const General: cooperative, comfortable, no acute distress and anxious Eyes Pupils: PERRL Resp Effort & Inspection: normal respiratory effort Cardio Rate: regular rate GI Inspection: normal to inspection Skin Full body images: 1. felon noted Neuro General: patient alert and patient oriented x3 Extrem Hand/finger images: 1. Ecchymosis, purulent drainage Erythema, firm n/v intact Psych Appearance: disheveled Speech and Movement: agitated Affect: labile affect Attitude: cooperative Thought Content: normal and suicidality Insight: fair Judgment: limited Course Vital Signs Vital signs: Vital Signs Temperature 36.0 C L 10/20/21 07:54 Pulse 129 H 10/20/21 07:54 Respiratory Rate 24 10/20/21 07:54 Blood Pressure 141/79 H 10/20/21 07:54 Pulse Oximetry 97 10/20/21 07:54 Temperature 36.9 C 10/20/21 11:17 Temperature Source Oral 10/20/21 11:17 Pulse 97 H 10/20/21 11:17 Respiratory Rate 24 10/20/21 07:54 Respiratory Effort Non-Labored 10/20/21 08:01 Blood Pressure 135/82 10/20/21 11:17 Blood Pressure Position Sitting 10/20/21 07:54 Pulse Oximetry 97 10/20/21 07:54 Oxygen Delivery Method Room Air 10/20/21 11:17 Oxygen Flow Rate 0 10/20/21 11:17 Pain Level 8 10/20/21 11:37 Lab/Test Results Lab/Test Results: Laboratory Tests Range/Units 10/20/21 10/20/21 08:10 10:35 Urine Color (Yellow) Yellow Urine Clarity (Clear) Clear Urine pH (5-8) 6.0 Ur Specific [place] (1.005-1.025) >= 1.030 H Urine Protein (Negative) mg/dL Trace H Urine Ketones (Negative) mg/dL Negative Urine Blood (Negative) Negative Urine Nitrite (Negative) Negative Urine Bilirubin (Negative) Negative Urine Urobilinogen (Up TO 0.2) EU/dL 0.2 Ur Leukocyte Esterase (Negative) Negative Urine RBC (0-2) HPF 0-2 Urine WBC (0-5) HPF 0-2 Ur Epithelial Cells (Negative) HPF Many Urine Crystals (Negative) HPF Negative Urine Bacteria (Negative) HPF Moderate Urine Casts (Negative) LPF Negative Urine Mucus (Negative) Trace Ur Culture Indicated? No/Sq. Contamination Urine Glucose (Negative) mg/dL Negative COVID-19 Source Nasal/Nares SARS-CoV-2 (PCR) (Negative) Negative POC- Test(urine) Negative PAWSS Have you Been Recently Intoxicated or Drunk Within the Last 30 days?: Yes Have you Ever Experienced Previous Episodes of Alcohol Withdrawal?: No Have you ever Experienced Withdrawal Seizures?: No Have you ever Experienced Delirium Tremens(DT)s?: No Have you ever undergone Alcohol Rehabilitation Treatment (i.e, inpt ot outpatient treatment programs)?: Yes Have you ever Experienced Blackouts?: Yes Have you ever Combined Alcohol with other Downers within the last 90 days?: Yes Have you ever Combined Alcohol with any other Substance of Abuse during the last 90 days?: Yes Positive Blood Alcohol level on Presentation? [PCS.BAL]: No Evidence of Increased Autonomic Activity (i.e. HR>120, tremor, sweating, agitation, nausea)?: Yes Result: 6
[2021-10-20] MEDS: Lactated Ringers 1,000 ML 30 ML IV (13:00)
[2021-10-20] MEDS: Bupivacaine 0.5% Pres-Free 30 ML VIAL (13:26)
--- NOTE | 2021-10-20 14:00 | ROE_ITS ---
Date of service: 10/20/21 Time of Service: 14:01 Operative Note Operative Note DATE OF PROCEDURE: 10/20/21 PRE-OP DIAGNOSIS: Right thumb felon POST-OP DIAGNOSIS: other (Right thumb pulp space infection) PROCEDURE: Incision and drainage of right thumb pulp space infection SURGEON: Tulio Funez ANESTHESIA TYPE: Local By Surgeon and MAC Refer to Anesthesia Record ESTIMATED BLOOD LOSS: 20 PATHOLOGY: other (Fluid for gram stain and culture) COMPLICATIONS: None Patient was transported to: PACU Patient's condition: stable Indications: Jocelyn Kovacs is a 36-year-old woman who presents to the ER with several days of increasing right thumb pain. On exam, she had an erythematous and fluctuant lesion on the radial aspect of her left thumb distal to the DIP joint. Findings: Left thumb pulp space infection Procedure Description: I began by prepping and draping the right thumb and hand. After adequate sedation, I established a left thumb ring block using local anesthetic without epinephrine. Once this was complete, I incised the radial aspect of the left thumb over the point of greatest fluctuance. There was a thick callus of skin over the thumb tuft. Once I was through this, I entered a cavity of pus. I obtained specimens for aerobic and anaerobic cultures. Next, using hemostat, I gently opened the cavity. It is on the palmar aspect of the right thumb within the fat pad. I believe it is distal to the insertion of the flexor te ndon sheath. Although, it is quite close to the DIP joint. I irrigated the site copiously. Next, because of the thick callus of overlying skin, I sharply excised it with scissors. Once again I irrigated the wound. It was hemostatic. I gently packed the wound with clean packing gauze. Next, I dressed the thumb with fluffs and an Ludwig wrap.
--- NOTE | 2021-10-20 15:26 | W.ANESPOSTOP ---
Postoperative Evaluation Date, Time and Location Date Performed: 10/20/21 Time Performed: 15:10 Patient Location: PACU Vital Signs Most Recent Imported Vital Signs: Most Recent Vital Signs Temp Pulse Resp BP Pulse Ox 36.7 C 82 15 130/85 98 10/20/21 15:22 10/20/21 15:22 10/20/21 15:22 10/20/21 15:22 10/20/21 15:22 Pain Score Most Recent Pain Score: Most Recent Pain Score Pain Level 0 10/20/21 15:22 Assessment Mental Status: Arousable with meaningful communication Airway and Respiratory Function: Patent airway with normal (patient baseline) respiratory exam Cardiovascular Function: Hemodynamically Stable Hydration Status: Adequately Hydrated Nausea & Vomiting: No Nausea or Vomiting Pain: Pain is tolerable per patient Peripheral Nerve Block: Patient did not receive a nerve block
--- NOTE | 2021-10-20 16:03 | DSU.FORM ---
1400 pt transferred to Med/Surg rm 230 via stretcher, report given to CHRISTEN Sorenson. Pt more alert and tearful, able to move self easily from stretcher to bed. CSB
[2021-10-20] MEDS: Acetaminophen 500 MG TAB 1000 MG PO ×2 (17:00→20:46)
[2021-10-20] MEDS: MORPHine 2 MG/ML SYR IVP (17:27)
[2021-10-20] MEDS: Normal Saline Flush 10 ML SYR IVP (17:28)
[2021-10-20] MEDS: ceFAZolin 1 GM/50 ML BAG IVPB (18:05)
[2021-10-20] MEDS: HYDROmorphone 2 MG/ML SYR IVP (18:21)
[2021-10-20] MEDS: Docusate Sodium 100 MG CAP PO (19:46)
[2021-10-21 01:25] VITALS: BP 116/80; PULSE 91; RESP 18; TEMP 37.1; O2SAT 99
[2021-10-21] MEDS: LORazepam 1 MG TAB PO (01:26)
[2021-10-21] MEDS: HYDROmorphone 2 MG/ML SYR IVP ×4 (01:26→12:36)
[2021-10-21] MEDS: Acetaminophen 500 MG TAB 1000 MG PO ×3 (05:40→20:13)
[2021-10-21 07:26] LABS: Abs Immature Grans 0.03 10^3/uL (0.0-0.06); Absolute Basophil Count 0.04 10^3/uL (0.0-0.2); Absolute Eosinophil Count 0.44 10^3/uL (0.0-0.7); Absolute Lymphocyte Count 2.35 10^3/uL (1.2-3.4); Absolute Monocyte Count 0.69 10^3/uL (0.1-0.8); Absolute Neutrophil Count 5.51 10^3/uL (1.2-6.7); Basophils % 0.4; Eosinophils % 4.9; HGB 13.3 g/dL (11.2-15.7); Immature Grans % 0.3; Lymphocytes % 25.9; MCH 29.6 pg (27.0-33.0); MCHC 33.3 % (32.0-36.0); MCV 89 fL (80-95); MPV 8.8 fL (8.0-11.0); Monocytes % 7.6; Neutrophils % 60.9; Platelet Count 417 10^3/uL (130-400); RBC 4.49 10^6/uL (3.93-5.22); RDW 13.8 % (11.7-14.6); WBC 9.06 10^3/uL (4.4-10.8)
[2021-10-21 07:55] VITALS: BP 123/83; PULSE 82; RESP 18; TEMP 36.7; O2SAT 98
[2021-10-21] MEDS: Normal Saline Flush 10 ML SYR IVP (08:16)
[2021-10-21] MEDS: cefTRIAXone 2 GM/50 ML BAG IVPB (08:41)
[2021-10-21 15:20] VITALS: BP 120/83; PULSE 74; RESP 20; TEMP 36.4; O2SAT 99
--- NOTE | 2021-10-21 16:58 | PDOC.CMIN ---
- If Service Date Differs Date of service: 10/21/21 Time of Service: 16:58 Care Management Initial Assess REASON FOR HOSPITALIZATION:: Felon of finger of right hand PAST MEDICAL HISTORY/PAST SURGICAL HISTORY:: All Active Problems. Felon of finger of right hand (Acute). RUQ abdominal pain (Acute). Ureterolithiasis (Acute). Constipation (Acute). Recurrent UTI (Acute). Hemorrhoids (Acute). Dyspepsia (Acute). Frequent headaches (Acute). Medical History. Cervical intraepithelial neoplasia. Depression. GERD (gastroesophageal reflux disease). Hepatitis C. Herpes simplex. Hodgkins disease. Hypothyroidism. Kidney stone. Peripheral neuropathy. Shingles. Tobacco use. Tubular adenoma of colon. Surgical History. lateral sphincterotomy (02/11/16) PREVIOUS FUNCTIONAL STATUS/SOCIAL/FAMILY SUPPORTS:: Shirlene lives in [place], [place]. She is independent at baseline. CURRENT FUNCTIONAL STATUS:: Shirlene was sleeping when CM attempted to meet with her. requested support from CM regarding inpatient drug rehab. CM contacted the head boys tennis coach, who visited her. Per [employer] head boys tennis coach, Shirlene is connected with a head boys tennis coach in [place], and has already been making arrangements to go to rehab. Drug/alcohol rehab is a self referral process, but the head boys tennis coach is willing to support her through the process. Per , she is now positive for MRSA, and will require IV abx until sensitivities are returned, at which point she will transition to oral abx, if possible. He stated that she will need minimal wound care. CM will continue to follow. ADVANCE DIRECTIVES:: None on file. 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 PATIENT/FAMILY EDUCATION NEEDS:: Review discharge instructions and limitations, discussion of self care needs including ask me three. ANTICIPATED BARRIERS TO DISCHARGE:: None. TRANSPORTATION:: Via private vehicle PLAN:: Anticipate Shirlene will return home once medically cleared. She will transport via private vehicle by family/friends. She will follow up with surgical services and her discharge plan of care. CM will continue to follow.
--- NOTE | 2021-10-21 17:09 | W.PM.PROGNOT ---
Date of Service Date of service: 10/21/21 Time of Service: 17:09 Assessment and Plan Assessment and plan (1) Feldre of finger of right hand: Status: Acute Assessment and plan: The thumb looks much better compared to yesterday. I wanted to keep the intravenous antibiotics today, and await some definitive culture data. So far, she has MRSA so I will stop the ceftriaxone. Assuming the wound continues to look good tomorrow, then I will plan to change the dressings in the morning and narrow her down to an enteral antibiotic regimen. As I understand, she is already in contact with substance abuse rehabilitation facilities. This will require self-referral. In that regard, it should not delay discharge in any way. Subjective Subjective Interval history since last seen: She had a lot of difficulty with pain and anxiety in the early part of yesterday afternoon, and that was improved as I increased her medications through the evening time. She was able to sleep overnight. She says her thumb feels a little better, but is still causing quite a bit of pain. Exam Skin Other: I took out the surgical packing. The wound is clean, there is no discharge. There is minimal erythema. The thumb is less swollen. She has a little bit of difficulty with flexion at the DIP joint, but this seems to be mostly limited by surrounding soft tissue swelling. There is no fluctuance Objective Last Vital Signs Temp 97.5 F L 10/21/21 15:20 Pulse 74 10/21/21 15:20 Resp 20 10/21/21 15:20 BP 120/83 10/21/21 15:20 Pulse Ox 99 10/21/21 15:20 Laboratory Results - last 24 hr 10/21/21 07:20 WBC 9.06 RBC 4.49 Hgb 13.3 Hct 40.0 MCV 89 MCH 29.6 MCHC 33.3 RDW 13.8 Plt Count 417 H MPV 8.8 Immature Gran % 0.3 Neutrophils % 60.9 Lymphocytes % 25.9 Monocytes % 7.6 Eosinophils % 4.9 Basophils % 0.4 Nucleated RBC % 0.0 Absolute Neutrophils 5.51 Absolute Lymphocytes 2.35 Absolute Monocytes 0.69 Absolute Eosinophils 0.44 Absolute Basophils 0.04 PAWSS Have you Been Recently Intoxicated or Drunk Within the Last 30 days?: Yes Have you Ever Experienced Previous Episodes of Alcohol Withdrawal?: No Have you ever Experienced Withdrawal Seizures?: No Have you ever Experienced Delirium Tremens(DT)s?: No Have you ever undergone Alcohol Rehabilitation Treatment (i.e, inpt ot outpatient treatment programs)?: Yes Have you ever Experienced Blackouts?: Yes Have you ever Combined Alcohol with other Downers within the last 90 days?: Yes Have you ever Combined Alcohol with any other Substance of Abuse during the last 90 days?: Yes Positive Blood Alcohol level on Presentation? [PCS.BAL]: No Evidence of Increased Autonomic Activity (i.e. HR>120, tremor, sweating, agitation, nausea)?: Yes Result: 6
[2021-10-21 20:05] VITALS: BP 119/76; PULSE 75; RESP 20; TEMP 36.8; O2SAT 99
[2021-10-21] MEDS: HYDROmorphone 2 MG TAB PO (20:08)
[2021-10-21] MEDS: Enoxaparin 40 MG/0.4 ML SYR SC (20:08)
[2021-10-21] MEDS: Docusate Sodium 100 MG CAP PO (20:09)
[2021-10-21] MEDS: LORazepam 1 MG TAB 0.5 MG PO (20:09)
[2021-10-22] MEDS: HYDROmorphone 2 MG TAB PO ×4 (06:57→19:38)
[2021-10-22] MEDS: Acetaminophen 500 MG TAB 1000 MG PO ×3 (06:57→22:20)
[2021-10-22 07:38] VITALS: BP 122/82; PULSE 64; RESP 18; TEMP 36.8; O2SAT 97
[2021-10-22] MEDS: LORazepam 1 MG TAB 0.5 MG PO ×3 (08:25→19:39)
[2021-10-22] MEDS: HYDROmorphone 2 MG/ML SYR 1 MG IVP (08:25)
[2021-10-22] MEDS: Normal Saline Flush 10 ML SYR IVP ×4 (08:26→19:40)
--- NOTE | 2021-10-22 12:10 | W.PM.PROGNOT ---
Date of Service Date of service: 10/22/21 Time of Service: 12:11 Assessment and Plan Assessment and plan (1) Feldre of finger of right hand: Status: Acute Assessment and plan: Unfortunately, Shirlene's MRSA sensitivities are quite limited. Essentially, the only enteral antibiotic that is available is linezolid. I spoke to her pharmacy, and an outpatient prescription will cost over $800. She is not able to afford that at this time. Given that this is the thumb on her dominant hand, I think it would be irresponsible to discharge her without appropriate outpatient antibiotic therapy. Therefore, I will continue the intravenous vancomycin for now, and continue to follow the exam. Hopefully, the soft tissues will continue to improve. And we can shorten the duration of her out patient regimen. I am also going to decrease her Dilaudid dosing at the same interval to try to help wean off the opioids. Subjective Subjective Interval history since last seen: She was able to sleep better last night, and she says her pain is little better controlled. She said her anxiety was better. Exam Extrem Other: The right thumb is less swollen today. There is still a little bit of erythema and ecchymosis in the pulp. It is still very tender. She has good capillary refill on the nailbed. There is no discharge from the wound. Flexion at the PIP joint is certainly improved, and may be mildly improved at the DIP joint Objective Last Vital Signs Temp 98.2 F 10/22/21 07:38 Pulse 64 10/22/21 07:38 Resp 18 10/22/21 07:38 BP 122/82 10/22/21 07:38 Pulse Ox 97 10/22/21 07:38 PAWSS Have you Been Recently Intoxicated or Drunk Within the Last 30 days?: Yes Have you Ever Experienced Previous Episodes of Alcohol Withdrawal?: No Have you ever Experienced Withdrawal Seizures?: No Have you ever Experienced Delirium Tremens(DT)s?: No Have you ever undergone Alcohol Rehabilitation Treatment (i.e, inpt ot outpatient treatment programs)?: Yes Have you ever Experienced Blackouts?: Yes Have you ever Combined Alcohol with other Downers within the last 90 days?: Yes Have you ever Combined Alcohol with any other Substance of Abuse during the last 90 days?: Yes Positive Blood Alcohol level on Presentation? [PCS.BAL]: No Evidence of Increased Autonomic Activity (i.e. HR>120, tremor, sweating, agitation, nausea)?: Yes Result: 6
[2021-10-22] MEDS: VANCOMYCIN/WATER (PEG) 1 GM/200 ML BAG IVPB ×2 (13:03→19:40)
[2021-10-22] MEDS: Normal Saline 500 ML 100 ML IV (13:03)
[2021-10-22] MEDS: HYDROmorphone 2 MG/ML SYR 0.5 MG IVP (13:59)
[2021-10-22 15:10] VITALS: BP 122/82; PULSE 75; RESP 17; TEMP 36.5; O2SAT 98
[2021-10-22] MEDS: Nicotine 21 MG/24 HR PATCH TD (17:27)
[2021-10-22] MEDS: Docusate Sodium 100 MG CAP PO (19:38)
[2021-10-22] MEDS: Ondansetron 4 MG/2 ML VIAL IVP (22:38)
--- NOTE | 2021-10-23 01:24 | NUR.NOTE ---
Nursing Note: Upon initial assessment at 2315, patient stated that she was feeling very restless and was considering leaving AMA. This senior technical writer asked if there was anything that would help to calm her, to which the patient stated a sleep aide. A few minutes later, the patient decided that she would prefer to leave AMA instead. Papers signed, IV removed, belongings sent home with patient. patient off of floor at 2341.
--- NOTE | 2021-10-24 12:53 | W.PM.DS.N ---
Date of service: 10/22/21 DS: Diagnosis Discharge Diagnosis (1) Felon of finger of right hand: Status: Acute Asessment and Plan: She has an ongoing infection in her right thumb. I recommended antibiotic therapy. She left the hospital AGAINST MEDICAL ADVICE. Discharge Plan Disposition Patient Disposition: AGAINST MEDICAL ADVICE Condition: Serious Discharge Details Reason For Visit: Pulp Space Infection Admit Date/Time: 10/20/21 13:43 Admit Provider: Tulio Funez Attending Provider: Tulio Funez Primary Care Provider: None,None Hospital Course Hospital Course: Jocelyn is 36 years old who came into the emergency department with increasing pain and swelling of her right thumb. We brought her to the operating room and performed incision and drainage of her right thumb felon consistent with a deep space infection. Culture data was positive for methicillin-resistant staph aureus. Unfortunately, the only enteral antibiotic to which the staph was sensitive was linezolid. I try to arrange for outpatient antibiotic therapy, but she was unable to afford it. Therefore, I was keeping her in the hospital for intravenous vancomycin. Unfortunately, she left the hospital AGAINST MEDICAL ADVICE Home Meds and New Rx's Prescriptions: No Action No Known Home Meds Discharge Data Discharge Date/Time-TO BE ENTERED AT DEPARTURE: 10/22/21 23:41 DS: Summary Time Spent with Patient providing and/or coordinating discharge services: Less than 30 minutes Status at Discharge Functional status at discharge: independent ambulation Overall status at discharge: patient is not back to baseline Mental Status: mental status grossly normal Speech and Movement: speech and movement normal Mood: congruent mood Affect: normal affect Exam Psych Mental Status: mental status grossly normal Speech and Movement: speech and movement normal Mood: congruent mood Affect: normal affect DS: Data Vitals/I&O Vitals and I&O: Vital Signs Temperature 97.7 F 10/22/21 15:10 Temperature Source Tympanic 10/22/21 15:10 Pulse 75 10/22/21 15:10 Pulse Rhythm Regular 10/22/21 23:15 Respiratory Rate 17 10/22/21 15:10 Respiratory Effort Non-Labored 10/22/21 23:15 Respiratory Depth Normal 10/22/21 23:15 Respiratory Pattern Normal 10/22/21 23:15 Blood Pressure 122/82 10/22/21 15:10 Blood Pressure Mean 104 10/20/21 16:09 Blood Pressure Position Sitting 10/20/21 16:09 Pulse Oximetry 98 10/22/21 15:10 Respiratory End-tidal CO2 37 10/20/21 14:54 Oxygen Delivery Method Room Air 10/22/21 15:10 Oxygen Flow Rate 0 10/22/21 15:10 Pain Level 5 10/22/21 22:20 Comment 10/22/21 10:12 Data Completed and Pending Labs on day of discharge: Preliminary micro results at discharge 10/20/21 13:19 Anaerobic Culture - Preliminary Thumb - Right 10/20/21 13:19 Surgical Culture - Preliminary Thumb - Right Staph aureus, MRSA PFSH All Active Problems Felon of finger (Acute) Felon of finger (Acute) Felon of finger of right hand (Acute) Ureterolithiasis (Acute) Constipation (Acute) Recurrent UTI (Acute) Hemorrhoids (Acute) Dyspepsia (Acute) Frequent headaches (Acute) Medical History Cervical intraepithelial neoplasia Depression GERD (gastroesophageal reflux disease) Hepatitis C Herpes simplex Hodgkins disease Hypothyroidism Kidney stone Peripheral neuropathy Shingles Tobacco use Tubular adenoma of colon Surgical History lateral sphincterotomy (02/11/16) Social History Smoking/Tobacco Use Status: Current every day Tobacco Type: cigarettes Smoking risk assessment performed?: Yes Alcohol Intake: current Alcohol Intake frequency: holidays/special occasions only Drug use: Daily Substance use type: marijuana, crack/cocaine and heroin Do you feel safe at home: No (suicidal) Do you feel safe in your relationship?: Yes
== END 2021-10-22 23:41 | disposition left against medical advice (07) | DRG 603 ==
LOC: ER 11:50 → DSU 13:02 → MS 10-21 10:25
PROVIDERS: Admitting Provider Surgery; Emergency Provider Physician Assistant; Visit Provider Surgery
PROC: 0J9J0ZZ Drainage of Right Hand Subcutaneous Tissue and Fascia, Open Approach (ICD-10-PCS; CPT 26011; principal; 2021-10-20 12:45)
DX: L03.011 Cellulitis of right finger (principal); Z16.11 Resistance to penicillins; Z16.29 Resistance to other single specified antibiotic; Z16.23 Resistance to quinolones and fluoroquinolones; N20.1 Calculus of ureter; B95.62 Methicillin resistant Staphylococcus aureus infection as the cause of diseases classified elsewhere; K59.00 Constipation, unspecified; K64.9 Unspecified hemorrhoids; F32.A Depression, unspecified; K21.9 Gastro-esophageal reflux disease without esophagitis; E03.9 Hypothyroidism, unspecified; F17.210 Nicotine dependence, cigarettes, uncomplicated; G62.9 Polyneuropathy, unspecified; Z86.19 Personal history of other infectious and parasitic diseases; R10.11 Right upper quadrant pain; F14.90 Cocaine use, unspecified, uncomplicated; F19.10 Other psychoactive substance abuse, uncomplicated; Z85.71 Personal history of Hodgkin lymphoma; F11.90 Opioid use, unspecified, uncomplicated
CPT/HCPCS: 26011; 81025; 87077; 87635; 96361; 96365; 96366; 96367; 96375; 99285; J1650; 73140; 80202; 81003; 81015; 82565; 85025; 85049; 87070; 87075; 87186; 87205; J0690; J1170; J1885; J2250; J2270; J2405; J3490

== ENCOUNTER 2021-10-23 16:57 | Emergency (ER) | payer MEDICAID, SELFPAY ==
[2021-10-23 17:21] VITALS: BP 152/88; PULSE 107; RESP 18; TEMP 36.4; O2SAT 98
--- NOTE | 2021-10-23 17:29 | NUR.NOTE ---
pt left the triage room after getting angry at the triage nurse Nursing Note:
== END 2021-10-23 18:30 | disposition left before discharge ==
DX: Z53.21 Procedure and treatment not carried out due to patient leaving prior to being seen by health care provider (principal)

== ENCOUNTER 2021-10-23 23:52 | Emergency (ER) | payer MEDICAID, SELFPAY ==
[2021-10-24 00:01] VITALS: BP 143/97; PULSE 97; RESP 18; TEMP 36.7; O2SAT 97
[2021-10-24 00:07] VITALS: RESP 18
--- NOTE | 2021-10-24 00:21 | W.ED.GENAD ---
Discharge Plan Disposition Patient Disposition: [facility] INPATIENT Condition: Stable Discharge Details Chief Complaint: GenMedical Clinical Impression: Felon of finger Primary Care Provider: None,None ED Provider: Yair See Home Meds and New Rx's Prescriptions: No Action No Known Home Meds Medical Decision Making 36-year-old female recent diagnosis of left thumb felon, underwent surgical incision and drainage, was admitted for IV antibiotics due to limited sensitivity and financial constraints, patient left AGAINST MEDICAL ADVICE within the last day in order to have a cigarette. Returns for further treatment. Localized induration and mild erythema to palmar aspect of left thumb, well granulated tissue around incision site, no purulence or fluctuance appreciated. No systemic signs of illness. Spoke with Dr. Funez of surgery who would like patient to be readmitted for continued IV antibiotics. No further imaging or labs at this time. Will start back on vancomycin HPI General Date/Time Provider Initiated Documentation: 10/23/21 23:53. HPI Narrative: 36-year-old female who presents with persistent infection to the left thumb, was diagnosed with a felon and underwent surgical incision and drainage, wound culture growing MRSA with limited sensitivity, due to patient's financial constraints and inability to obtain outpatient linezolid patient was admitted for IV vancomycin. Patient left AGAINST MEDICAL ADVICE earlier today because she wanted a cigarette. Related Data Home Medications Medication Instructions Recorded Confirmed Unknown [No Known Home Meds] 10/24/21 10/24/21 Allergies Allergy/AdvReac Type Severity Reaction Status Date / Time bupropion HCl Allergy Mild unknown Unverified 10/24/21 00:10 [From Wellbutrin] duloxetine HCl Allergy Mild unknown Unverified 10/24/21 00:10 [From Cymbalta] phenolphthalein [From Ex-Lax] Allergy Unknown SEIZURES Unverified 10/24/21 00:10 varenicline tartrate Allergy seizure Unverified 10/24/21 00:10 [From Chantix] Penicillins AdvReac Intermediate vomiting/pa Unverified 10/24/21 00:10 in ukn antidepression med Allergy Uncoded 10/24/21 00:10 General Stated Complaint: GenMedical JERMAIN: 4 Review of Systems Narrative: Review of Systems Constitutional: negative Eyes: negative ENT: negative Cardiovascular: negative Respiratory: negative Gastrointestinal: negative : negative Musculoskeletal: negative Skin: Finger infection Neurologic: negative Psych: negative PFSH All Active Problems (Updated 10/24/21 @ 00:27 by Yair See MD) Felon of finger (Acute) Felon of finger (Acute) Felon of finger of right hand (Acute) Ureterolithiasis (Acute) Constipation (Acute) Recurrent UTI (Acute) Hemorrhoids (Acute) Dyspepsia (Acute) Frequent headaches (Acute) Medical History Cervical intraepithelial neoplasia Depression GERD (gastroesophageal reflux disease) Hepatitis C Herpes simplex Hodgkins disease Hypothyroidism Kidney stone Peripheral neuropathy Shingles Tobacco use Tubular adenoma of colon Surgical History lateral sphincterotomy (02/11/16) Social History Smoking/Tobacco Use Status: Current every day Tobacco Type: cigarettes Smoking risk assessment performed?: Yes Alcohol Intake: current Alcohol Intake frequency: holidays/special occasions only Drug use: Daily Substance use type: marijuana, crack/cocaine and heroin Do you feel safe at home: No (suicidal) Do you feel safe in your relationship?: Yes Exam Narrative Exam Narrative: Physical Examination General: alert, awake, cooperative, resting comfortably, no acute distress HEENT: normocephalic, atraumatic; PERRL, EOM intact, conjunctiva normal; no nasal discharge; moist mucous membranes, oral and pharyngeal mucosa normal, tolerating secretions Neck: supple, trachea midline; full ROM Chest: normal to inspection Respiratory: normal respiratory effort, speaking in full sentences, clear to auscultation, no wheezing, rales or rhonchi Cardiac: regular rate, regular rhythm, S1S2 intact, no murmurs rubs or gallops GI: abdomen soft, non-tender, non-distended; no palpable mass or hepatosplenomegaly Skin: See extremity Neuro: AAOx3, normal speech, moving all extremities Extremities: Localized induration and erythema to palmar aspect of left thumb, area excised superficial skin exposed subcutaneous tissue well granulated, no fluctuance or purulent drainage at this time, sensation intact flexion extension of thumb intact Psych: Appropriate mood and affect Course Vital Signs Vital signs: Vital Signs Temperature 36.7 C 10/24/21 00:01 Pulse 97 H 10/24/21 00:01 Respiratory Rate 18 10/24/21 00:01 Blood Pressure 143/97 H 10/24/21 00:01 Pulse Oximetry 97 10/24/21 00:01 Temperature 36.7 C 10/24/21 00:01 Temperature Source Oral 10/24/21 00:01 Pulse 97 H 10/24/21 00:01 Respiratory Rate 18 10/24/21 00:07 Respiratory Effort 10/24/21 00:07 Respiratory Depth Normal 10/24/21 00:07 Respiratory Pattern Normal 10/24/21 00:07 Blood Pressure 143/97 H 10/24/21 00:01 Blood Pressure Position Sitting 10/24/21 00:01 Pulse Oximetry 97 10/24/21 00:01 Oxygen Delivery Method Room Air 10/24/21 00:01 Oxygen Flow Rate 0 10/24/21 00:01 Pain Level 7 10/24/21 00:01 Comment 10/24/21 00:01
[2021-10-24] MEDS: LORazepam 1 MG TAB PO (01:00)
== END 2021-10-24 01:11 | disposition short-term general hospital (02) ==
PROVIDERS: Emergency Provider Emergency Medicine
DX: L03.012 Cellulitis of left finger (principal); F17.210 Nicotine dependence, cigarettes, uncomplicated
CPT/HCPCS: 96365; 99285; 99284